=== PATIENT | female | born 1950 | race Caucasian/White ===

== ENCOUNTER 2020-07-12 11:51 | Emergency (ER) | payer MEDICARE, SELFPAY ==
[2020-07-12 11:53] VITALS: BP 144/70; PULSE 69; RESP 17; TEMP 36.7; O2SAT 98; BMI 30.7
--- NOTE | 2020-07-12 11:57 | ED.RN ---
PT'S SON DROPPED HER OFF STATING IF THEIR ARE ANY QUESTIONS HE CAN BE CONTACTED AT [phone], KOLBY GREGORY.
--- NOTE | 2020-07-12 12:11 | ED.VIS.GEN ---
History of Present Illness Chief Complaint: Fever Informant: Patient Narrative: Patient is a 69-year-old female with a past medical history of diabetes who presents to the ED for fever. Over the past week she has been treating herself symptomatically at home for URI/sinusitis she feels like her sinuses are improving but she developed a fever last night and it reoccurred today. She has been treating herself at home with Tylenol. Her was diagnosed with coronavirus and admitted to the hospital. He is doing well and will likely be discharged today. Patient denies a headache, stiff neck. No rashes. She denies any sore throat. No ear pain. She denies any chest pain, shortness of breath. No cough. No abdominal pain or nausea/vomiting. No change in bowel habits. No urinary symptoms. She denies a smoking history. Past Medical History - Allergies and Home Meds Allergies/Adverse Reactions: Allergies No Known Allergies Allergy (Verified 07/12/20 11:52) Primary Care Physician: Shila Cohen,Out of [Primary Care Provider] - 3-5 Days Prior records reviewed: Yes Past Medical History: - - DM Lives: Spouse/ Significant Other Smoking Status: Never smoker Alcohol: None Review of Systems All systems negative except as indicated General: Reports: Fever. Denies: Chills, Sweats Eyes: Denies: Visual changes - bilaterally, Diplopia ENT: Denies: Bilateral ear pain, Rhinorrhea, Sore throat Cardiovascular: Denies: Chest pain, Palpitations Respiratory: Denies: Dyspnea, Cough, Dyspnea on exertion Gastrointestinal: Reports: Hematochezia. Denies: Abdominal pain, Nausea, Vomiting, Diarrhea Genitourinary: Denies: Dysuria, Hematuria, Frequency Musculoskeletal: Denies: Back pain, Extremity Pain Skin: Denies: Rash, Wounds Neurological: Denies: Headache, Weakness, Numbness Physical Exam Vital Signs/Narrative: Vital Signs Temp Pulse Resp BP Pulse Ox 07/12/20 11:53 98.1 F 69 17 144/70 H 98 Inital Vital Signs reviewed: Yes General: Well nourished, Well developed, No Acute Distress Head: Normocephalic, Atraumatic Eyes: Perrl, EOMI ENT: Nasal congestion Neck: Supple, Nontender Cardiovascular: Regular rate, Regular rhythm, No murmurs Respiratory: No distress, CTA bilaterally, Chest nontender Abdomen: Soft, Nontender, Nondistended, Normal bowel sounds Back: Nontender, Normal Inspection Extremities: Nontender, No edema. Negative for: Calf Tenderness Skin: Normal color, No rash Neurological: Alert, Oriented x3, Cranial nerves II-XII grossly intact, Normal Strength, Normal Sensation Psychological: Normal affect, Normal Mood Diagnostic/Tx/Re-eval - Medical Decision Making Patient presents to the emerge department for URI symptoms and a fever. Upon arrival to the emerge department vital signs within normal limits. Satting well on room air. In no acute distress. She did have a known coronavirus exposure. At this time will obtain a coronavirus swab although we will treat her as positive. Will recommend symptomatic treatment at home with Tylenol for her fever. I did advise getting a pulse oximeter if she starts to develop any shortness of breath. She has no other symptoms of infection so no work-up required at this time. She is to follow-up with her PCP otherwise. Warning signs and symptoms for which to return to the ED are reviewed with her. She understands and is agreeable this plan. Will discharge home in stable condition. All questions answered. ED Disposition - Plan for ED Patient: Disposition: Home or Assisted Living Diagnosis: Fever, URI (upper respiratory infection), Close exposure to COVID-19 virus Instructions: ED Fever Control (Adult), ED URI Viral Referrals: [facility] Doctor,Out of [Primary Care Provider] - 3-5 Days
== END 2020-07-12 13:40 | disposition home or self-care (01) ==
LOC: ED 12:56
PROVIDERS: Emergency Provider Emergency Medicine; PCP Family Medicine
DX: U07.1 COVID-19 (principal); J06.9 Acute upper respiratory infection, unspecified; E11.9 Type 2 diabetes mellitus without complications; Z79.4 Long term (current) use of insulin
CPT/HCPCS: 87635; 99282; U0003

== ENCOUNTER 2020-07-16 14:32 | Inpatient (IN) | payer MEDICARE, SELFPAY ==
[2020-07-16] VITALS (9 sets, daily range): BP systolic 134–160; BP diastolic 71–95; PULSE 59–85; RESP 15–27; TEMP 37–37.4; O2SAT 95–97; BMI 30.1; BMI 30.9
--- NOTE | 2020-07-16 14:57 | EKG12_ITS ---
Test Reason : SOB Blood Pressure : / mmHG Vent. Rate : 066 BPM Atrial Rate : 070 BPM P-R Int : 000 ms QRS Dur : 066 ms QT Int : 394 ms P-R-T Axes : 000 -15 -71 degrees QTc Int : 413 ms Sinus Rhythm With PSVC's Minimal voltage criteria for LVH, may be normal variant Nonspecific ST and T wave abnormality Abnormal ECG Confirmed by KORINA KEY, JOVANNI ([id number]), metropolitan editor MUSA NICOLE ([id number]) on 07/17/2020 1:06:45 PM Referred By: KG Confirmed By:JOVANNI HUI MD
--- NOTE | 2020-07-16 14:58 | ED.DCSUM_ITS ---
History of Present Illness Chief Complaint: Shortness of Breath Informant: Patient Onset: 01-03 Activity at onset: Unknown Timing: Intermittent Quality: Dyspnea on exertion Current Severity: Mild Maximum Severity: Severe Worsened by: Coughing, Exertion Relieved by: Nothing Associated Symptoms: Chills, Cough, Fever. Negative for: Bloody Sputum, Rhinorrhea, Sore throat Chest Pain: None Narrative: 69-year-old female has had symptoms of Covid for the past 5 or 6 days, she was tested but the results are not yet available, her was admitted to the hospital and is doing better now discharged home, she is starting to feel worse. She admits to myalgias, fevers, chills, severe fatigue and weakness, nonproductive cough, shortness of breath especially with walking, now she cannot get around the house because she is too weak. Now also, she is having severe nausea, occasional vomiting, and loose diarrhea without blood. She is drinking and trying to stay hydrated with Gatorade. - Past Medical History (1) Type 2 diabetes mellitus Status: Chronic (2) Hypertension Status: Chronic (3) Hypothyroidism Status: Chronic Past Medical History - Allergies and Home Meds Allergies/Adverse Reactions: Allergies No Known Allergies Allergy (Verified 07/16/20 14:33) Primary Care Physician: Marion Roland DO [Primary Care Provider] - Lives: Spouse/ Significant Other Smoking Status: Never smoker Review of Systems General: Reports: Chills, Fever, Malaise, Subjective Eyes: Denies: Visual changes - bilaterally, Diplopia ENT: Denies: Bilateral ear pain, Rhinorrhea, Sore throat Cardiovascular: Denies: Chest pain, Palpitations Respiratory: Reports: Dyspnea, Cough, Dyspnea on exertion. Denies: Sputum, Orthopnea Gastrointestinal: Reports: Nausea, Vomiting, Diarrhea. Denies: Abdominal pain, Melena, Hematochezia Genitourinary: Denies: Dysuria, Hematuria, Frequency Musculoskeletal: Reports: Myalgias. Denies: Back pain, Swelling, Extremity Pain Skin: Denies: Rash, Wounds Neurological: Reports: Headache. Denies: Weakness, Numbness Physical Exam Vital Signs/Narrative: Vital Signs Temp Pulse Resp BP Pulse Ox 07/16/20 14:48 27 H 97 07/16/20 14:33 98.8 F 59 L 17 147/71 H 96 Inital Vital Signs reviewed: Yes General: Well nourished, Well developed, No Acute Distress - But appears very malaised Head: Normocephalic, Atraumatic Eyes: Perrl, EOMI ENT: Moist mucous membranes, No rhinorrhea Neck: Supple, Nontender, No lymphadenopathy Cardiovascular: Regular rate, Regular rhythm, No murmurs. Negative for: Tachycardia Respiratory: No distress, Chest nontender, Rhonchi - Bilaterally, worse at bases. Negative for: Rales, Wheezing Abdomen: Soft, Nondistended, Normal bowel sounds, Tender - Mild suprapubic only. Negative for: Guarding, Rebound tenderness Back: Nontender, Normal Inspection. Negative for: CVA tenderness Extremities: Nontender, No edema. Negative for: Calf Tenderness Skin: Normal color, No rash, No Trauma Neurological: Alert, Oriented x3, Cranial nerves II-XII grossly intact, Normal Strength, Normal Sensation Psychological: Normal affect, Normal Mood Diagnostic/Tx/Re-eval Impressions Chest X-Ray 07/16/20 15:50 IMPRESSION: No acute findings. Electronically Signed: Brittni Smith MD at 16:22 EST Tel , Service support , 07/16/20 15:50 Chest 1 View (Portable) [RAD] Stat Laboratory Results 07/16/20 07/16/20 07/16/20 15:10 15:10 15:10 WBC 3.2 L RBC 4.74 Hgb 14.3 Hct 43.1 MCV 90.9 MCH 30.2 MCHC 33.2 RDW Std Deviation 44.3 H RDW Coeff of Pedro 13.1 Plt Count 137 L MPV 10.8 Immature Gran % (Auto) 0.600 Neut % (Auto) 69.3 Lymph % (Auto) 22.6 [place] % (Auto) 7.2 Eos % (Auto) 0.0 Baso % (Auto) 0.3 Absolute Neuts (auto) 2.2 Absolute Lymphs (auto) 0.72 L Nucleated RBC % 0 PT 13.1 INR 1.0 APTT 31.3 Sodium 137 Potassium 4.1 Chloride 100 Carbon Dioxide 31.0 Anion Gap 6 BUN 7 Creatinine 0.91 Estim Creat Clear Calc 51.02 Est GFR (MDRD) Af Amer 78 Est GFR (MDRD) Non-Af 65 BUN/Creatinine Ratio 7.7 L Glucose 149 H Lactic Acid Calcium 8.0 L Total Bilirubin 0.50 AST 44 H ALT 19 Alkaline Phosphatase 61 Troponin I 0.016 Total Protein 6.6 Albumin 2.7 L Globulin 3.9 Albumin/Globulin Ratio 0.7 L 07/16/20 15:10 WBC RBC Hgb Hct MCV MCH MCHC RDW Std Deviation RDW Coeff of Pedro Plt Count MPV Immature Gran % (Auto) Neut % (Auto) Lymph % (Auto) [place] % (Auto) Eos % (Auto) Baso % (Auto) Absolute Neuts (auto) Absolute Lymphs (auto) Nucleated RBC % PT INR APTT Sodium Potassium Chloride Carbon Dioxide Anion Gap BUN Creatinine Estim Creat Clear Calc Est GFR (MDRD) Af Amer Est GFR (MDRD) Non-Af BUN/Creatinine Ratio Glucose Lactic Acid Cancelled Calcium Total Bilirubin AST ALT Alkaline Phosphatase Troponin I Total Protein Albumin Globulin Albumin/Globulin Ratio Treatment - Dyspnea: Albuterol Repeat Evaluation: Improved - Medical Decision Making Patient is having trouble getting around at home, I do not think she necessarily needs oxygen she just needs care. Will admit to the hospital for further work- up and evaluation. I did have staff call to see if her outpatient Covid test is back yet, it is not and still pending, however this is day 4 or 5 so I suspect it will be back tomorrow if not later today, so I did not send a new test as I figure she likely does have it. ED Disposition - Plan for ED Patient: Disposition: Acute Care Hospital [facility] Diagnosis: Debility, COVID-19 Referrals: Marion Roland DO [Primary Care Provider] -
--- NOTE | 2020-07-16 15:03 | NURSING ---
NO OLD EKGS
[2020-07-16 15:25] LABS: Absolute Lymphocyte Count 0.72 X10^3/uL (0.83-4.51); Absolute Neutrophil Count 2.2 X10^3/uL (2.0-7.7); Basophil# 0.01 X10^3/uL; Basophil% 0.3 % (0-1); Hematocrit 43.1 % (37-47); Hemoglobin 14.3 g/dL (12.0-15.0); Lymphocyte # 0.72 X10^3/ul (4.0); Lymphocyte % 22.6 % (19-41); Mean Corp Hgb Conc 33.2 g/dL (32-36); Mean Corpuscular Hgb 30.2 pg (27.0-32.0); Mean Corpuscular Volume 90.9 fL (81-99); Mean Platelet Vol. 10.8 fl (6.2-12.0); Monocyte# 0.23 X10^3/uL; Monocyte% 7.2 % (0-10); NRBC Flagged by Analyzer 0 % (0-5); Neutrophil # 2.21 X10^3/uL (2.7-7.7); Neutrophil % 69.3 % (47-70); Platelet Count 137 K/mm3 (150-450); RBC Distribution Width CV 13.1 % (11.6-14.6); RBC Distribution Width SD 44.3 fl (35.1-43.9); Red Blood Count 4.74 M/mm3 (4.2-5.4); White Blood Count 3.2 K/mm3 (4.4-11.0)
--- NOTE | 2020-07-16 15:25 | CPS ---
Gave 3 puffs as ordered.
[2020-07-16] MEDS: 0.9% Normal Saline 1,000 ML 150 ML IV ×2 (15:33→21:39)
[2020-07-16 15:48] LABS: Partial Thromboplast Time 31.3 Seconds (24.1-36.2); Prothrombin Time (Protime)PT. 13.1 SECONDS (11.7-14.9)
--- NOTE | 2020-07-16 15:50 | RAD_ITS ---
STUDY: X-RAY CHEST REASON FOR EXAM: Female, 69 years old. INCREASED SOB, COUGH, FATIGUE, WEAKNESS. HAS COVID. TECHNIQUE: Single AP portable view of the chest. COMPARISON: None. FINDINGS: The lungs are clear and expanded. There is no demonstrated pleural abnormality. Normal size heart. Normal mediastinum and hao. Normal visualized pulmonary arteries. Normal visualized aortic arch and descending thoracic aorta. Mild thoracic levoscoliosis. Soft tissues and bony structures are otherwise unremarkable. RAD/Chest 1 View (Portable) IMPRESSION: No acute findings. Electronically Signed: Brittni Smith MD at 16:22 EST Tel , Service support ,
[2020-07-16 15:54] LABS: ALB/GLOB Ratio 0.7 RATIO (0.9-2.4); AST(SGOT) 44 U/L (15-37); Alanine Aminotransfer ALT/SGPT 19 U/L (13-56); Albumin, Serum 2.7 g/dL (3.2-5.0); Alkaline Phosphatase 61 U/L (45-117); Anion Gap 6 (5-15); BUN 7 mg/dL (7-18); BUN/Creat Ratio 7.7 RATIO (10-20); Chloride 100 mmol/L (98-107); Creatinine, Serum 0.91 mg/dL (0.55-1.02); EST Glomerular Filtration Rate 65 mL/min (>60); Est Glom Filt Rate - Afr Amer 78 mL/min (>60); Estimated Creatinine Clearance 51.02 ml/min; Globulin 3.9 g/dL (2.2-4.2); Glucose 149 mg/dL (74-106); Potassium 4.1 mmol/L (3.5-5.1); Protein, Total 6.6 g/dL (6.4-8.2); Sodium Level 137 mmol/L (136-145)
--- NOTE | 2020-07-16 16:23 | NURSING ---
LACTIC ACID HEMOLIZED
--- NOTE | 2020-07-16 17:05 | HP.PCM_ITS ---
History of Present Illness Date of Admission: 07/16/20 Chief Complaint: weakness, shortness of breath The patient is a 69 year old F with past medical history of type 2 diabetes mellitus, hypertension and hypothyroidism. She was admitted through the ED on 07/16/2020 with a complaint of shortness of breath, general weakness, cough, fever and chills. She has had the symptoms for the past 6 days. She had been a Covid test on outpatient basis on 07/12/2020 but results were not yet available. had been admitted in the hospital for Covid and was recently discharged. Patient says she just felt like she was getting worse and her shortness of breath was worsened with walking. She could not get around the house very well because she was too weak and was now also having occasional nausea, vomiting and diarrhea. She therefore came into the ED. The ED, vitals show temperature of 98.6 Fahrenheit with blood pressure of 147/71, pulse rate of 59 and respiratory rate of 19. Pulse ox was 95% on room air. Chemistry was unremarkable initial troponin was negative. Chest x-ray showed no acute cardio pulmonary findings. CBC showed WBC of 3.2 with platelets of 137 and hemoglobin of 14.3. EKG showed no acute ST changes. She has been admitted to be managed for debility due to Covid [] Past Medical History Past Medical History (Chronic Problems): Chronic Problems Type 2 diabetes mellitus (Chronic) Hypertension (Chronic) Hypothyroidism (Chronic) Allergies No Known Allergies Allergy (Verified 07/16/20 14:33) Home Medications: Ambulatory Orders Medication Instructions Recorded ALPRAZolam [Xanax] 0.5 mg PO TID PRN PRN 07/16/20 Clopidogrel Bisulfate [Plavix] 75 mg PO DAILY 07/16/20 Dulaglutide [Trulicity] 0.75 mg SQ QWEEK 07/16/20 Ergocalciferol (Vitamin D2) 50,000 unit PO QWEEK 07/16/20 [Vitamin D2] Furosemide [Lasix] 40 mg PO DAILY 07/16/20 Gabapentin [Neurontin] 600 mg PO BIDCM 07/16/20 Glimepiride 4 mg PO DAILY 07/16/20 Hydrocodone/Acetaminophen [[place] 1 ea PO BID PRN PRN 07/16/20 5-325 Tablet] Insulin Detemir [Levemir] 44 unit SQ DAILY 07/16/20 Levothyroxine Sodium [Synthroid] 50 mcg PO DAILY 07/16/20 Ondansetron HCl [Zofran] 4 mg PO Q6H PRN PRN 07/16/20 Ramipril 2.5 mg PO DAILY 07/16/20 Lives: Spouse/ Significant Other Smoking Status: Never smoker Review of Systems Constitutional: Reports: Anorexia, Chills, Fever, Malaise, Weakness, Fatigue Eyes: Denies: Blurred vision HEENT: Denies: Head Aches, Sinus Congestion, Sinus Drainage Cardiovascular: Denies: Chest Pain, Chest Pressure, Chest Tightness, Edema, Heaviness, Light Headedness, Palpitations, Syncope Respiratory: Reports: Cough, Shortness of Breath, Shortness of breath at rest, Shortness of breath upon exertion. Denies: Sputum production, Wheezing Gastrointestinal: Denies: Abdominal Pain, Nausea, Vomiting Genitourinary: Denies: Dysuria Musculoskeletal: Denies: Joint Pain, Joint Tenderness Skin: Denies: Rash, Wounds Neurological: Denies: Numbness, Tingling, Focal weakness Psychiatric: Denies: Anxiety, Depression, Homicidal Ideations, Suicidal Ideations Hematologic/ Lymphatic: Denies: Easy Bruising, Easy Bleeding VTE Information - Inpt Only VTE Present on Admission: No VTE Pharm Prophylaxis ordered?: Yes Patient Problems: Active and Suspected Problems Debility (Acute) COVID-19 (Acute) - Physical Exam Vitals/I&O's: Vital Signs Temp Pulse Resp BP Pulse Ox 98.6 F 59 L 19 H 147/71 H 95 07/16/20 15:36 07/16/20 14:33 07/16/20 15:36 07/16/20 14:33 07/16/20 15:36 Oxygen Delivery Method Room Air Weight: 181 lb Body Mass Index (BMI) 30.1 General: Alert, Oriented x3, Cooperative, Lethargic HEENT: Atraumatic, PERRLA, EOMI, Normocephalic Oral: Dry Mucosa Neck: Supple, No JVD, Negative Carotid Bruits Lungs: Clear to auscultation, Normal air movement, No rhonchi, No wheeze, No rales Cardiovascular: Regular rate, Regular Rhythm, Normal S1, Normal S2, No murmurs Abdomen: Bowel Sounds Present, Soft, Non Tender, Non-Distended, No Hepato- splenomegaly Extremities: No clubbing, No cyanosis, No edema, Capillary Refill Less than 3 Seconds Skin: No rashes, No breakdown Musculoskeletal: No Tenderness to Palpation of Joints or Extremities Lymphatic: No Cervical, Supraclavicular, or Inguinal Adenopathy Neurological: Cranial nerves II-XII grossly intact, Neuro grossly intact, Motor Exam 5/5 strength throughout Psych/Mental Status: Normal Affect, Appropriate, Alert and oriented to time, place, person, mood and affect Laboratory Results 07/16/20 15:10: WBC 3.2 L, RBC 4.74, Hgb 14.3, Hct 43.1, MCV 90.9, MCH 30.2, MCHC 33.2, RDW Std Deviation 44.3 H, RDW Coeff of Pedro 13.1, Plt Count 137 L, MPV 10.8, Immature Gran % (Auto) 0.600, Neut % (Auto) 69.3, Lymph % (Auto) 22.6, [place] % (Auto) 7.2, Eos % (Auto) 0.0, Baso % (Auto) 0.3, Absolute Neuts (auto) 2.2, Absolute Lymphs (auto) 0.72 L, Nucleated RBC % 0 07/16/20 15:10: PT 13.1, INR 1.0, APTT 31.3 07/16/20 15:10: Sodium 137, Potassium 4.1, Chloride 100, Carbon Dioxide 31.0, Anion Gap 6, BUN 7, Creatinine 0.91, Estim Creat Clear Calc 51.02, Est GFR (MDRD) Af Amer 78, Est GFR (MDRD) Non-Af 65, BUN/Creatinine Ratio 7.7 L, Glucose 149 H, Calcium 8.0 L, Total Bilirubin 0.50, AST 44 H, ALT 19, Alkaline Phosphatase 61, Troponin I 0.016, Total Protein 6.6, Albumin 2.7 L, Globulin 3.9, Albumin/Globulin Ratio 0.7 L 07/16/20 15:10: Lactic Acid Cancelled Diagnostic Data Chest X-Ray 07/16/20 15:50 IMPRESSION: No acute findings. Electronically Signed: Brittni Smith MD at 16:22 EST Tel , Service support , Current Medications Sodium Chloride () 1,000 mls @ 150 mls/hr IV .[id number] [facility] Last Admin: 07/16/20 15:33 Dose: 150 mls/hr Documented by: Assessment/Plan All Active Problems Debility (Acute) COVID-19 (Acute) 69 y/o admitted with a complaint of shortness of breath and weakness #Debility due to COVID-19 infection * admit to Covid floor. * hydrate gently with IVF * tylenol prn for pain * PT/OT consult * fall precautions * # COVID 19 infection * Patient has not had Covid. Patient has been tested but results are still pending. Test was done on 07/12/2020. * Clinically patient appears of Covid so will be treated as such. * Currently on room air. Give oxygen as needed as needed. * Check D-dimer; if elevated, will get CTA of chest * Breathing treatments with bronchodilators. * Stage type 2 diabetes mellitus: On Trulicity and glimepiride.: Lantus 44 units daily. Insulin sliding scale. Accu-Cheks AC at bedtime. #Hypertension: On ramipril. #CAD: On Plavix. DVT prophylaxis: Lovenox CODE STATUS: Full code * Patient counseled extensively about different types of CODE STATUS including full code, DNR CCA and DNR CCA. Patient elects to be full code. * Total [id number] time 17 minutes. Inpatient E&M: 67322 Init Hosp L3 Procedures: 94557 Advncd Care Plan 30 Min
--- NOTE | 2020-07-16 17:08 | NURSING ---
MS2 COVID KORAM COVID 19, DEBILITY, GENERALIZED WEAKNESS
[2020-07-16] MEDS: Ondansetron 4 MG/2 ML Vial IV (17:12)
[2020-07-16] MEDS: Acetaminophen 500 MG Tablet 1000 MG PO (17:12)
[2020-07-16 17:52] LABS: Lactic Acid 5.2 mmol/L (0.4-1.9)
[2020-07-16 21:26] LABS: Reflex Lactate? Y
[2020-07-16 21:29] LABS: ALB/GLOB Ratio 0.7 RATIO (0.9-2.4); AST(SGOT) 28 U/L (15-37); Alanine Aminotransfer ALT/SGPT 18 U/L (13-56); Albumin, Serum 2.7 g/dL (3.2-5.0); Alkaline Phosphatase 63 U/L (45-117); Anion Gap 8 (5-15); BUN 7 mg/dL (7-18); BUN/Creat Ratio 7.6 RATIO (10-20); CPK Total, Creatine Kinase 57 U/L (26-192); Chloride 104 mmol/L (98-107); Creatinine, Serum 0.92 mg/dL (0.55-1.02); EST Glomerular Filtration Rate 64 mL/min (>60); Est Glom Filt Rate - Afr Amer 77 mL/min (>60); Estimated Creatinine Clearance 50.47 ml/min; Globulin 3.7 g/dL (2.2-4.2); Glucose 120 mg/dL (74-106); Potassium 3.3 mmol/L (3.5-5.1); Protein, Total 6.4 g/dL (6.4-8.2); Sodium Level 143 mmol/L (136-145)
[2020-07-16 21:31] LABS: Procalcitonin 0.07 ng/mL (0.00-0.09)
[2020-07-16] MEDS: ALPRAZolam 0.5 MG Tablet PO (21:39)
[2020-07-16] MEDS: HYDROcodone Bitartrate/Apap 5/325 Tablet PO (21:39)
[2020-07-16] MEDS: Gabapentin 600 MG Tablet PO (21:39)
[2020-07-16 21:45] LABS: International Normalized Ratio 1.1; Prothrombin Time (Protime)PT. 13.7 SECONDS (11.7-14.9)
[2020-07-16 21:51] LABS: Bedside Glucose 138 mg/dL (70-110)
[2020-07-16 22:00] LABS: D-Dimer Quantitative (DVT/PE) 0.62 FEU/ug/m (0.27-0.49)
[2020-07-16 22:30] LABS: Lactic Acid 2.2 mmol/L (0.4-1.9)
[2020-07-17] VITALS (12 sets, daily range): BP systolic 156–181; BP diastolic 72–87; PULSE 67–81; RESP 15–18; TEMP 36.9–38.1; O2SAT 93–97
[2020-07-17 01:55] LABS: Mucous, Urine 0 SEEN /hpf (<or=2+); Squamous Epithelial Cells - UA 0 SEEN /hpf (5-10); White Blood Cells 0 SEEN /hpf (0-5)
[2020-07-17 01:57] LABS: Color, Urine Yellow (Yellow); Glucose, Dipstick Normal (Normal); Ketone-Dipstick 15 mg/dl (Negative); Leukocyte Esterase-Dipstick Negative /ul (Negative); Nitrite-Dipstick Negative (Negative); Occult Blood-Urine Negative /ul (Negative); Protein-Dipstick 30 mg/dl (Negative); Specific Gravity, Urine 1.015 (1.002-1.030); Urine Bilirubin Dipstick Negative (Negative); Urine Clarity Clear (Clear); Urine Urobilinogen 1 mg/dl (Normal)
[2020-07-17 02:09] LABS: Bacteria 4+ /hpf (None Seen); Red Blood Cells-Urine 0-5 SEEN /hpf (0-5)
[2020-07-17 02:10] LABS: Amorphous Sediment RARE
[2020-07-17] MEDS: 0.9% Normal Saline 1,000 ML 150 ML IV (04:25)
[2020-07-17] MEDS: Insulin Lispro 100 UNIT/ML INSULN.PEN SC ×4 (06:54→21:43)
[2020-07-17 07:00] LABS: Bedside Glucose 166 mg/dL (70-110)
--- NOTE | 2020-07-17 07:32 | PN_ITS ---
Patient Problems: Active and Suspected Problems Debility (Acute) COVID-19 (Acute) Reason for Visit: Follow-up for COVID-19 pneumonia Objective: Patient states her had Covid and she was exposed probably a week ago on past Thursday on July 09, 2020. She started having symptoms of shortness of br eath, generalized weak mild cough with fever and chills for past 6 days she is also having occasional nausea vomiting and loose stool. Initially chest respiratory acute cardiopulmonary finding D-dimer was elevated CTPA was done which shows bilateral lower lobes and upper lobes patchy infiltrates. Low-grade fever 100.4 Fahrenheit Physical exam General: Alert, Oriented x3, Cooperative HEENT: Atraumatic, PERRLA, EOMI, Normocephalic Oral: No Gingival or Mucosal Lesions/ Ulcerations Neck: Supple, No JVD, Negative Carotid Bruits Lungs: Air entry diminished in bilateral lung bases. Mild bilateral expiratory wheezing present. Pulse ox 94% on room air Cardiovascular: Regular rate, Regular Rhythm, Normal S1, Normal S2, No murmurs Abdomen: Bowel Sounds Present, Soft, Non Tender, Non-Distended : No renal angle tenderness. No suprapubic tenderness. Extremities: No edema, Capillary Refill Less than 3 Seconds Skin: No rashes, No breakdown Musculoskeletal: No Tenderness to Palpation of Joints or Extremities Neurological: Cranial nerves II-XII grossly intact, Deep Tendon Reflexes 2+/4 and Symmetrical, Neuro grossly intact Psych/Mental Status: Normal Affect, Appropriate. Vitals/I&O's: Vital Signs Temp Pulse Resp BP Pulse Ox 98.7 F 67 16 169/78 H 97 07/17/20 04:27 07/17/20 04:27 07/17/20 04:27 07/17/20 04:27 07/17/20 04:27 Oxygen Delivery Method Room Air Weight: 186 lb 4.65 oz Body Mass Index (BMI) 30.9 Intake and Output for Last 24 Hours 07/15/20 07/16/20 07/17/20 23:59 23:59 23:59 Intake Total 915 / 1115 1200 / 1200 Output Total 300 / 300 Balance 915 / 915 900 / 900 Laboratory Results 07/16/20 15:10: WBC 3.2 L, RBC 4.74, Hgb 14.3, Hct 43.1, MCV 90.9, MCH 30.2, MCHC 33.2, RDW Std Deviation 44.3 H, RDW Coeff of Pedro 13.1, Plt Count 137 L, MPV 10.8, Immature Gran % (Auto) 0.600, Neut % (Auto) 69.3, Lymph % (Auto) 22.6, [place] % (Auto) 7.2, Eos % (Auto) 0.0, Baso % (Auto) 0.3, Absolute Neuts (auto) 2.2, Absolute Lymphs (auto) 0.72 L, Nucleated RBC % 0 07/16/20 15:10: PT 13.1, INR 1.0, APTT 31.3 07/16/20 15:10: Sodium 137, Potassium 4.1, Chloride 100, Carbon Dioxide 31.0, Anion Gap 6, BUN 7, Creatinine 0.91, Estim Creat Clear Calc 51.02, Est GFR (MDRD) Af Amer 78, Est GFR (MDRD) Non-Af 65, BUN/Creatinine Ratio 7.7 L, Glucose 149 H, Calcium 8.0 L, Total Bilirubin 0.50, AST 44 H, ALT 19, Alkaline Phosphatase 61, Troponin I 0.016, Total Protein 6.6, Albumin 2.7 L, Globulin 3.9, Albumin/Globulin Ratio 0.7 L 07/16/20 15:10: Lactic Acid Cancelled 07/16/20 16:58: Lactic Acid 5.2 H* 07/16/20 20:45: PT 13.7, INR 1.1, D-Dimer Quant (PE/DVT) 0.62 H* 07/16/20 20:45: Sodium 143, Potassium 3.3 L, Chloride 104, Carbon Dioxide 31.0, Anion Gap 8, BUN 7, Creatinine 0.92, Estim Creat Clear Calc 50.47, Est GFR (MDRD) Af Amer 77, Est GFR (MDRD) Non-Af 64, BUN/Creatinine Ratio 7.6 L, Glucose 120 H, Calcium 8.0 L, Total Bilirubin 0.60, AST 28, ALT 18, Alkaline Phosphatase 63, Total Creatine Kinase 57, Troponin I 0.020, C-React Prot Ext Range 25.50 H, Total Protein 6.4, Albumin 2.7 L, Globulin 3.7, Albumin/Globulin Ratio 0.7 L 07/16/20 20:45: Procalcitonin 0.07 07/16/20 21:38: POC Glucose 138 H 07/16/20 21:50: Lactic Acid 2.2 H* 07/17/20 01:40: Urine Color Yellow, Urine Clarity Clear, Urine pH 8.0, Ur Specific [place] 1.015, Urine Protein 30 H, Urine Glucose (UA) Normal, Urine Ketones 15 H, Urine Occult Blood Negative, Urine Nitrite Negative, Urine Bilirubin Negative, Urine Urobilinogen 1 H, Ur Leukocyte Esterase Negative, Urine RBC 0-5 SEEN, Urine WBC 0 SEEN, Ur Squamous Epith Cells 0 SEEN, Amorphous Sediment RARE, Urine Bacteria 4+, Urine Mucus 0 SEEN 07/17/20 06:50: WBC Cancelled, Corrected WBC Cancelled, RBC Cancelled, Hgb Cancelled, Hct Cancelled, MCV Cancelled, MCH Cancelled, MCHC Cancelled, RDW Std Deviation Cancelled, RDW Coeff of Pedro Cancelled, Plt Count Cancelled, MPV Cancelled, Immature Gran % (Auto) Cancelled, Neut % (Auto) Cancelled, Lymph % (Auto) Cancelled, [place] % (Auto) Cancelled, Eos % (Auto) Cancelled, Baso % (Auto) Cancelled, Absolute Neuts (auto) Cancelled, Absolute Lymphs (auto) Cancelled, Total Counted Cancelled, Neutrophils % (Manual) Cancelled, Band Neutrophils % Cancelled, Lymphocytes % (Manual) Cancelled, Monocytes % (Manual) Cancelled, Eosinophils % (Manual) Cancelled, Basophils % (Manual) Cancelled, Metamyelocytes % Cancelled, Myelocytes % Cancelled, Promyelocytes % Cancelled, Blast Cells % Cancelled, Plasma Cell % (Manual) Cancelled, Other Cells % Cancelled, Nucleated RBC % Cancelled, Nucleated RBCs/100 WBC Cancelled, Differential Comment Cancelled, Diff Path Review Cancelled, Hypersegmented Neuts Cancelled, Atypical Lymphocytes Cancelled, Reactive Lymphocytes Cancelled, Smudge Cells Cancelled, Toxic Granulation Cancelled, Toxic Vacuolation Cancelled, Dohle Bodies Cancelled, Reynaldo Rods Cancelled, Platelet Estimate Cancelled, Plt Morphology Comment Cancelled, RBC Morphology Cancelled, Polychromasia Cancelled, Hypochroma joe Cancelled, Poikilocytosis Cancelled, Basophilic Stippling Cancelled, Anisocytosis Cancelled, Microcytosis Cancelled, Macrocytosis Cancelled, Spherocytes Cancelled, Sickle Cells Cancelled, Target Cells Cancelled, Tear Drop Cells Cancelled, Ovalocytes Cancelled, Stomatocytes Cancelled, [place] Bodies Cancelled, Wheeler Cells Cancelled, Bite Cells Cancelled, Crenated Cell Cancelled, Acanthocytes (Spur) Cancelled, Rouleaux Cancelled, Schistocytes Cancelled 07/17/20 06:50: Sodium Pending, Potassium Pending, Chloride Pending, Carbon Dioxide Pending, Anion Gap Pending, BUN Pending, Creatinine Pending, Est GFR (MDRD) Af Amer Pending, Est GFR (MDRD) Non-Af Pending, BUN/Creatinine Ratio Pending, Glucose Pending, Calcium Pending, Magnesium Pending, Ferritin Pending, Alkaline Phosphatase Pending, C-React Prot Ext Range Pending 07/17/20 06:50: D-Dimer Quant (PE/DVT) Pending 07/17/20 06:50: Procalcitonin Pending 07/17/20 06:52: POC Glucose 166 H Current Medications Hydrocodone Bitart/Acetaminophen (Hydrocodone Bitartrate/Apap 5/325 Tablet) 1 tablet PO BID PRN PRN PRN Reason: Pain Score 1-3 Last Admin: 07/16/20 21:39 Dose: 1 tablet Documented by: Alprazolam (Alprazolam 0.5 Mg Tablet) 0.5 mg PO TID PRN PRN PRN Reason: ANXIETY Last Admin: 07/16/20 21:39 Dose: 0.5 mg Documented by: Clopidogrel Bisulfate (Clopidogrel Bisulfate 75 Mg Tablet) 75 mg PO DAILY@0800 [facility] Dexamethasone (Dexamethasone 4 Mg Tablet) 6 mg PO DAILY@0800 [facility] Dextrose (Dextrose 50%-Water 25 Gm/50 Ml Disp.Syrin) 0 gm IV X1 PRN; Protocol PRN Reason: Hypoglycemia Enoxaparin Sodium (Enoxaparin 30 Mg/0.3 Ml Syringe) 30 mg SC DAILY@0800 [facility] Ergocalciferol (Ergocalciferol 50,000 Unit Capsule) 50,000 unit PO Fr@0800 [facility] Furosemide (Furosemide 40 Mg Tablet) 40 mg PO DAILY@0800 [facility] Gabapentin (Gabapentin 600 Mg Tablet) 600 mg PO BIDCM [facility] Last Admin: 07/16/20 21:39 Dose: 600 mg Documented by: Glimepiride (Glimepiride 4 Mg Tablet) 4 mg PO DAILY@0800 [facility] Glucagon (Glucagon 1 Mg/Ml Syringe) 1 mg IM .X1 PRN PRN Reason: Hypoglycemia Sodium Chloride () 1,000 mls @ 150 mls/hr IV .Q6H40M [facility] Last Admin: 07/17/20 04:25 Dose: 150 mls/hr Documented by: Insulin Glargine (Insulin Glargine 100 Units/Ml Pen) 44 units SC DAILY@0800 [facility] Insulin Human Lispro (Insulin Lispro 100 Unit/Ml Insuln.Pen) 0 unit SC ACHS [facility]; Protocol Last Admin: 07/17/20 06:54 Dose: 1 u Documented by: Levothyroxine Sodium (Levothyroxine 50 Mcg Tablet) 50 mcg PO DAILY@0800 [facility] Ondansetron HCl (Ondansetron Odt 4 Mg Tablet) 4 mg PO Q6H PRN PRN PRN Reason: NAUSEA Ondansetron HCl (Ondansetron 4 Mg/2 Ml Vial) 4 mg IV Q8H PRN PRN PRN Reason: NAUSEA/VOMITING Oxycodone HCl (Oxycodone 5 Mg Tablet) 5 mg PO Q4H PRN PRN PRN Reason: Pain Score 4-5 Ramipril (Ramipril 2.5 Mg Capsule) 2.5 mg PO DAILY@0800 [facility] Sodium Chloride (0.9% Saline Lock 10 Ml Syringe) 10 - 40 ml IV UD PRN PRN Reason: SALINE FLUSH STROKE Vital Signs/Narrative: Vital Signs Temp Pulse Resp BP Pulse Ox 07/17/20 04:27 98.7 F 67 16 169/78 H 97 Medical Necessity - Tobacco Use Smoking Status: Never smoker Tobacco Use: Non-smoker, Secondhand Assessment/Plan All Active Problems Debility (Acute) COVID-19 (Acute) The patient is a 69 year old F with past medical history of type 2 diabetes mellitus, hypertension and hypothyroidism who is admitted for shortness of breath, cough, fever and chills and generalized weakness for the past 6 days and COVID-19 PCR positive PCP. Chest x-ray no acute cardiopulmonary findings. CBC leukopenia and mild thrombocytopenia. Patient was exposed to her about 7 days ago who was COVID-19 pneumonia and was admitted in the hospital recently. 1. Bilateral COVID-19 pneumonia: CTA chest was done for high D-dimer and high priority of PE but was negative for thromboembolism. It showed patchy pulmonary infiltrate in both lower lobes and upper lobes. Patient does not have significant is different production or cough. Started on IV Rocephin and Zithromax. Urinary antigens and respiratory panel ordered. ID consult and discussed with Dr. Toscano and approved for IV remdesivir. Continue Decadron. Lovenox 40 mg subcu twice daily. IV fluid 75 mils per hour as patient had CT contrast. Physical therapy. Bronchodilator as needed. Monitor CBCs and CMP daily. PT and OT and fall precaution. 2. Type 2 diabetes mellitus: On Trulicity and glimepiride.: Lantus 40 units daily. Insulin sliding scale. Accu-Cheks AC at bedtime. #Hypertension: Blood pressure is elevated. Amlodipine 5 mg added and ramipril dose increased to 5 mg daily. #CAD: On Plavix. VTE prophylaxis: Lovenox CODE STATUS: Full code Clinical Impression(s) from Imaging Studies Chest X-Ray 07/16/20 15:50 IMPRESSION: No acute findings. Electronically Signed: Brittni Smith MD at 16:22 EST Tel , Service support , Chest CTA 07/17/20 08:57 IMPRESSION: Patchy pulmonary infiltrates seen in both lower lobes as well as in the posterior aspect of the upper lobes. Follow-up is recommended. Laboratory Results 07/16/20 15:10: WBC 3.2 L, RBC 4.74, Hgb 14.3, Hct 43.1, MCV 90.9, MCH 30.2, MCHC 33.2, RDW Std Deviation 44.3 H, RDW Coeff of Pedro 13.1, Plt Count 137 L, MPV 10.8, Immature Gran % (Auto) 0.600, Neut % (Auto) 69.3, Lymph % (Auto) 22.6, [place] % (Auto) 7.2, Eos % (Auto) 0.0, Baso % (Auto) 0.3, Absolute Neuts (auto) 2.2, Absolute Lymphs (auto) 0.72 L, Nucleated RBC % 0 07/16/20 15:10: PT 13.1, INR 1.0, APTT 31.3 07/16/20 15:10: Sodium 137, Potassium 4.1, Chloride 100, Carbon Dioxide 31.0, Anion Gap 6, BUN 7, Creatinine 0.91, Estim Creat Clear Calc 51.02, Est GFR (MDRD) Af Amer 78, Est GFR (MDRD) Non-Af 65, BUN/Creatinine Ratio 7.7 L, Glucose 149 H, Calcium 8.0 L, Total Bilirubin 0.50, AST 44 H, ALT 19, Alkaline Phosphatase 61, Troponin I 0.016, Total Protein 6.6, Albumin 2.7 L, Globulin 3.9, Albumin/Globulin Ratio 0.7 L 07/16/20 15:10: Lactic Acid Cancelled 07/16/20 16:58: Lactic Acid 5.2 H* 07/16/20 20:45: PT 13.7, INR 1.1, D-Dimer Quant (PE/DVT) 0.62 H* 07/16/20 20:45: Sodium 143, Potassium 3.3 L, Chloride 104, Carbon Dioxide 31.0, Anion Gap 8, BUN 7, Creatinine 0.92, Estim Creat Clear Calc 50.47, Est GFR (MDRD) Af Amer 77, Est GFR (MDRD) Non-Af 64, BUN/Creatinine Ratio 7.6 L, Glucose 120 H, Calcium 8.0 L, Total Bilirubin 0.60, AST 28, ALT 18, Alkaline Phosphatase 63, Total Creatine Kinase 57, Troponin I 0.020, C-React Prot Ext Range 25.50 H, Total Protein 6.4, Albumin 2.7 L, Globulin 3.7, Albumin/Globulin Ratio 0.7 L 07/16/20 20:45: Procalcitonin 0.07 07/16/20 21:38: POC Glucose 138 H 07/16/20 21:50: Lactic Acid 2.2 H* 07/17/20 01:40: Urine Color Yellow, Urine Clarity Clear, Urine pH 8.0, Ur Specific [place] 1.015, Urine Protein 30 H, Urine Glucose (UA) Normal, Urine Ketones 15 H, Urine Occult Blood Negative, Urine Nitrite Negative, Urine Bilirubin Negative, Urine Urobilinogen 1 H, Ur Leukocyte Esterase Negative, Urine RBC 0-5 SEEN, Urine WBC 0 SEEN, Ur Squamous Epith Cells 0 SEEN, Amorphous Sediment RARE, Urine Bacteria 4+, Urine Mucus 0 SEEN 07/17/20 06:50: Sodium Pending, Potassium Pending, Chloride Pending, Carbon Dioxide Pending, Anion Gap Pending, BUN Pending, Creatinine Pending, Est GFR (MDRD) Af Amer Pending, Est GFR (MDRD) Non-Af Pending, BUN/Creatinine Ratio Pending, Glucose Pending, Calcium Pending, Magnesium Pending, Ferritin Pending, Alkaline Phosphatase Pending, C-React Prot Ext Range Pending 07/17/20 06:50: D-Dimer Quant (PE/DVT) Pending 07/17/20 06:50: Procalcitonin Pending 07/17/20 06:52: POC Glucose 166 H 07/17/20 07:46: WBC Pending, RBC Pending, Hgb Pending, Hct Pending, MCV Pending, MCH Pending, MCHC Pending, RDW Std Deviation Pending, RDW Coeff of Pedro Pending, Plt Count Pending, Neut % (Auto) Pending, Absolute Neuts (auto) Pending Inpatient E&M: [id number] Subs Hosp L2
[2020-07-17 07:55] LABS: Absolute Neutrophil Count 3.2 X10^3/uL (2.0-7.7); Basophil# 0.02 X10^3/uL; Basophil% 0.5 % (0-1); Eosinophil# 0.02 X10^3/uL; Eosinophils% 0.5 % (0-5); Hematocrit 43.7 % (37-47); Hemoglobin 14.3 g/dL (12.0-15.0); Lymphocyte % 12.6 % (19-41); Mean Corp Hgb Conc 32.7 g/dL (32-36); Mean Corpuscular Hgb 29.9 pg (27.0-32.0); Mean Corpuscular Volume 91.2 fL (81-99); Mean Platelet Vol. 10.8 fl (6.2-12.0); Monocyte# 0.26 X10^3/uL; Monocyte% 6.5 % (0-10); NRBC Flagged by Analyzer 0 % (0-5); Neutrophil # 3.16 X10^3/uL (2.7-7.7); Neutrophil % 79.4 % (47-70); POSITIVE DIFFERENTIAL YES; Platelet Count 125 K/mm3 (150-450); Red Blood Count 4.79 M/mm3 (4.2-5.4)
[2020-07-17 08:08] LABS: Alkaline Phosphatase 58 U/L (45-117); Anion Gap 7 (5-15); BUN 7 mg/dL (7-18); BUN/Creat Ratio 11.3 RATIO (10-20); Calcium,Total 7.3 mg/dL (8.5-10.1); Chloride 105 mmol/L (98-107); Creatinine, Serum 0.62 mg/dL (0.55-1.02); EST Glomerular Filtration Rate 100 mL/min (>60); Est Glom Filt Rate - Afr Amer 121 mL/min (>60); Estimated Creatinine Clearance 46.43 ml/min; Ferritin 579 ng/mL (8-252); Glucose 165 mg/dL (74-106); Magnesium 2.1 mg/dL (1.6-2.6); Potassium 3.1 mmol/L (3.5-5.1); Sodium Level 137 mmol/L (136-145)
[2020-07-17 08:18] LABS: Differential Indicated SCAN CRITERIA MET
[2020-07-17 08:30] LABS: Differential Comment SCANNED
[2020-07-17 08:31] LABS: D-Dimer Quantitative (DVT/PE) 0.73 FEU/ug/m (0.27-0.49)
--- NOTE | 2020-07-17 08:34 | NURSING ---
this nurse aware of ddimer 0.73, will notify pts nurse and dr galan
--- NOTE | 2020-07-17 08:57 | CT_ITS ---
STUDY: CTA CHEST REASON FOR EXAM: Female, 69 years old. SOB/COVID? TEST PENDING BUT POSITIVE RADIATION DOSAGE (If Supplied By Facility): CTDIvol = ( 11.97 ) mGy, DLP = ( 365.70 ) mGycm TECHNIQUE: The examination was performed with the intravenous administration of IV 100mL [id number]-300. Post-processing of the angiographic images was performed, with multiplanar reformation and 3D reconstruction. Individualized dose optimization techniques were used for this CT. COMPARISON: None. FINDINGS: Normal enhancement of the main pulmonary artery and right and left pulmonary arteries. Normal enhancement of the bilateral peripheral pulmonary arteries. There is no demonstrated pulmonary embolism. There is atherosclerotic calcification of the aortic arch and the descending thoracic aorta. There is no demonstrated aortic dissection. There are calcifications of the coronary arteries. Normal mediastinum. Normal hilar regions. Normal visualized trachea and bronchi. The lungs are well expanded. Focal peripheral patchy infiltrate in the posterior aspect of the right upper lobe. Patchy infiltrates are also seen in the posterior aspects of both upper lobes abutting the fissures. Patchy infiltrates in both lower lobes. Normal pleura. Normal chest wall structures. There are mild degenerative changes of thoracic spine. Normal visualized upper abdomen. CT/CTA Chest W/WO Contrast IMPRESSION: Patchy pulmonary infiltrates seen in both lower lobes as well as in the posterior aspect of the upper lobes. Follow-up is recommended. Electronically Signed: Vito Kim, at 10:52 EST , Service support ,
[2020-07-17] MEDS: Levothyroxine 50 MCG Tablet PO (10:39)
[2020-07-17] MEDS: Ramipril 2.5 MG Capsule PO (10:39)
[2020-07-17] MEDS: Clopidogrel Bisulfate 75 MG Tablet PO (10:39)
[2020-07-17] MEDS: dexAMETHasone 4 MG Tablet 6 MG PO (10:39)
[2020-07-17] MEDS: Enoxaparin 40 MG/0.4 ML Syringe SC ×2 (10:40→21:42)
[2020-07-17] MEDS: 0.9% Saline Lock 10 ML Syringe IV (10:55)
--- NOTE | 2020-07-17 11:46 | CASEMGMT ---
RN CM Assessment Note Introduced role of CM to patient via phone. Demographics, PCP verified. The patient states she is independent at home, no DME use and no care needs. She states her has equipment at home, but she does not use any. Diagnosis: COVID-19 PCP: Dr. Marion Roland Insurance: [facility] [place] Preferred Pharmacy: [facility] Prescription Benefit: yes LNOK: Enrrique De Los Santos and son Sivakumar De Los Santos Living Arrangements: Lives independently, no care needs per patient Tranportation: drives or son drives DME: none Patient DC Goals: Home on discharge DC Plan: anticipate home. Patient is currently not on oxygen @ [facility] CM available for discharge planning coordination. Contact CM for any concerns/needs that may arise. Rangel FORD RN ACM
[2020-07-17] MEDS: 0.9% Normal Saline 1,000 ML 75 ML IV (11:52)
[2020-07-17 13:01] LABS: Bedside Glucose 217 mg/dL (70-110)
[2020-07-17 13:12] LABS: Pathologist Review Reviewed
[2020-07-17] MEDS: amLODIPine 5 MG Tablet PO (13:44)
[2020-07-17] MEDS: proCHLORPERazine 10 MG/2 ML Vial 5 MG IV (14:16)
[2020-07-17] MEDS: Gabapentin 600 MG Tablet PO (16:28)
[2020-07-17 16:40] LABS: Bedside Glucose 339 mg/dL (70-110)
[2020-07-17] MEDS: ALPRAZolam 0.5 MG Tablet PO (21:42)
[2020-07-17] MEDS: HYDROcodone Bitartrate/Apap 5/325 Tablet PO (21:42)
[2020-07-17 22:25] LABS: Bedside Glucose 300 mg/dL (70-110)
[2020-07-18] VITALS (12 sets, daily range): BP systolic 148–159; BP diastolic 74–88; PULSE 65–82; RESP 18–22; TEMP 36.7–37.2; O2SAT 91–94
[2020-07-18] MEDS: 0.9% Normal Saline 1,000 ML 75 ML IV (04:22)
[2020-07-18 06:09] LABS: Hematocrit 41.4 % (37-47); Hemoglobin 13.5 g/dL (12.0-15.0); Mean Corp Hgb Conc 32.6 g/dL (32-36); Mean Corpuscular Hgb 29.4 pg (27.0-32.0); Mean Corpuscular Volume 90.2 fL (81-99); Mean Platelet Vol. 11.3 fl (6.2-12.0); Platelet Count 169 K/mm3 (150-450); RBC Distribution Width CV 13.2 % (11.6-14.6); RBC Distribution Width SD 43.7 fl (35.1-43.9); Red Blood Count 4.59 M/mm3 (4.2-5.4); White Blood Count 3.5 K/mm3 (4.4-11.0)
[2020-07-18 06:49] LABS: ALB/GLOB Ratio 0.8 RATIO (0.9-2.4); AST(SGOT) 22 U/L (15-37); Alanine Aminotransfer ALT/SGPT 15 U/L (13-56); Albumin, Serum 2.5 g/dL (3.2-5.0); Alkaline Phosphatase 53 U/L (45-117); Anion Gap 10 (5-15); BUN 11 mg/dL (7-18); BUN/Creat Ratio 18.3 RATIO (10-20); Calcium,Total 7.7 mg/dL (8.5-10.1); Chloride 107 mmol/L (98-107); EST Glomerular Filtration Rate 104 mL/min (>60); Est Glom Filt Rate - Afr Amer 126 mL/min (>60); Estimated Creatinine Clearance 46.43 ml/min; Globulin 3.1 g/dL (2.2-4.2); Glucose 229 mg/dL (74-106); Potassium 3.1 mmol/L (3.5-5.1); Protein, Total 5.6 g/dL (6.4-8.2); Sodium Level 141 mmol/L (136-145)
[2020-07-18] MEDS: Insulin Lispro 100 UNIT/ML INSULN.PEN SC ×4 (08:17→20:54)
[2020-07-18] MEDS: Clopidogrel Bisulfate 75 MG Tablet PO (08:56)
[2020-07-18] MEDS: amLODIPine 5 MG Tablet PO (08:56)
[2020-07-18] MEDS: ALPRAZolam 0.5 MG Tablet PO ×2 (08:56→23:14)
[2020-07-18] MEDS: Glimepiride 2 MG Tablet PO (08:56)
[2020-07-18] MEDS: Gabapentin 600 MG Tablet PO ×2 (08:56→16:22)
[2020-07-18] MEDS: Levothyroxine 50 MCG Tablet PO (08:57)
[2020-07-18] MEDS: Ramipril 2.5 MG Capsule 5 MG PO (08:57)
[2020-07-18] MEDS: dexAMETHasone 4 MG Tablet 6 MG PO (08:57)
[2020-07-18] MEDS: Enoxaparin 40 MG/0.4 ML Syringe SC ×2 (08:58→20:48)
[2020-07-18 10:01] LABS: Bedside Glucose 236 mg/dL (70-110)
--- NOTE | 2020-07-18 11:15 | PCM.PN.HOSP ---
Patient Problems: Active and Suspected Problems Debility (Acute) COVID-19 (Acute) Reason for Visit: COVID-19 pneumonia with fever Objective: Patient had fever, T-max 100.6 Fahrenheit yesterday night. Denies any cough, sputum production or shortness of breath or hemoptysis. Pulse ox 94% on room air. No tachycardia. No nausea or vomiting. Physical exam General: Alert, Oriented x3, Cooperative HEENT: Atraumatic, PERRLA, EOMI, Normocephalic Oral: No Gingival or Mucosal Lesions/ Ulcerations Neck: Supple, No JVD, Negative Carotid Bruits Lungs: Air entry diminished in bilateral lung bases. No crepitation/rhonchi. Cardiovascular: Regular rate, Regular Rhythm, Normal S1, Normal S2, No murmurs Abdomen: Bowel Sounds Present, Soft, Non Tender, Non-Distended : No renal angle tenderness. No suprapubic tenderness. Extremities: No edema, Capillary Refill Less than 3 Seconds Skin: No rashes, No breakdown Musculoskeletal: No Tenderness to Palpation of Joints or Extremities Neurological: Cranial nerves II-XII grossly intact, Deep Tendon Reflexes 2+/4 and Symmetrical, Neuro grossly intact Psych/Mental Status: Normal Affect, Appropriate. Vitals/I&O's: Vital Signs Temp Pulse Resp BP Pulse Ox 987.3 F H 74 18 151/79 H 94 07/18/20 08:22 07/18/20 08:22 07/18/20 08:22 07/18/20 08:22 07/18/20 08:22 Oxygen Delivery Method Room Air Weight: 186 lb 4.65 oz Body Mass Index (BMI) 30.9 Intake and Output for Last 24 Hours 07/16/20 07/17/20 07/18/20 23:59 23:59 23:59 Intake Total 915 / 1115 2957.5 / 2957.5 883.75 / 883.75 Output Total 1850 / 1850 200 / 200 Balance 915 / 915 1107.5 / 1107.5 683.75 / 683.75 Microbiology Past 72 Hours 07/17/20 01:40 Urine, Clean Catch Urine Culture - Final Mixed Gram Positive Organisms 07/17/20 15:11 Mucosa - Nasopharyngeal Respiratory Panel (PCR) - Final 07/17/20 12:45 Urine, Clean Catch Legionella Antigen - Final 07/17/20 12:45 Urine, Clean Catch Streptococcus pneumoniae Antigen (M - Final Laboratory Results 07/17/20 07:46: Diff Path Review Reviewed 07/17/20 11:46: POC Glucose 217 H 07/17/20 16:18: POC Glucose 339 H 07/17/20 21:41: POC Glucose 300 H 07/18/20 05:14: WBC 3.5 L, RBC 4.59, Hgb 13.5, Hct 41.4, MCV 90.2, MCH 29.4, MCHC 32.6, RDW Std Deviation 43.7, RDW Coeff of Pedro 13.2, Plt Count 169, MPV 11.3 07/18/20 05:14: Sodium 141, Potassium 3.1 L, Chloride 107, Carbon Dioxide 24.0, Anion Gap 10, BUN 11, Creatinine 0.60, Estim Creat Clear Calc 46.43, Est GFR (MDRD) Af Amer 126, Est GFR (MDRD) Non-Af 104, BUN/Creatinine Ratio 18.3, Glucose 229 H, Calcium 7.7 L, Total Bilirubin 0.40, AST 22, ALT 15, Alkaline Phosphatase 53, Total Protein 5.6 L, Albumin 2.5 L, Globulin 3.1, Albumin/Globulin Ratio 0.8 L 07/18/20 08:11: POC Glucose 236 H Current Medications Hydrocodone Bitart/Acetaminophen (Hydrocodone Bitartrate/Apap 5/325 Tablet) 1 tablet PO BID PRN PRN PRN Reason: Pain Score 1-3 Last Admin: 07/17/20 21:42 Dose: 1 tablet Documented by: Alprazolam (Alprazolam 0.5 Mg Tablet) 0.5 mg PO TID PRN PRN PRN Reason: ANXIETY Last Admin: 07/18/20 08:56 Dose: 0.5 mg Documented by: Amlodipine Besylate (Amlodipine 5 Mg Tablet) 5 mg PO DAILY [facility] Last Admin: 07/18/20 08:56 Dose: 5 mg Documented by: Clopidogrel Bisulfate (Clopidogrel Bisulfate 75 Mg Tablet) 75 mg PO DAILY@0800 [facility] Last Admin: 07/18/20 08:56 Dose: 75 mg Documented by: Dexamethasone (Dexamethasone 4 Mg Tablet) 6 mg PO DAILY@0800 [facility] Last Admin: 07/18/20 08:57 Dose: 6 mg Documented by: Dextrose (Dextrose 50%-Water 25 Gm/50 Ml Disp.Syrin) 0 gm IV X1 PRN; Protocol PRN Reason: Hypoglycemia Enoxaparin Sodium (Enoxaparin 40 Mg/0.4 Ml Syringe) 40 mg SC BID@0800,2200 [facility] Last Admin: 07/18/20 08:58 Dose: 40 mg Documented by: Ergocalciferol (Ergocalciferol 50,000 Unit Capsule) 50,000 unit PO Fr@0800 [facility] Gabapentin (Gabapentin 600 Mg Tablet) 600 mg PO BIDCM [facility] Last Admin: 07/18/20 08:56 Dose: 600 mg Documented by: Glimepiride (Glimepiride 2 Mg Tablet) 2 mg PO DAILY@0800 [facility] Last Admin: 07/18/20 08:56 Dose: 2 mg Documented by: Glucagon (Glucagon 1 Mg/Ml Syringe) 1 mg IM .X1 PRN PRN Reason: Hypoglycemia Ceftriaxone Sodium 2 gm/ (Sodium Chloride) 50 mls @ 100 mls/hr IV Q24 [facility] Last Infusion: 07/18/20 08:55 Dose: Infused Documented by: Azithromycin 500 mg/ Dextrose 255 mls @ 250 mls/hr IV Q24 [facility] Stop: 07/20/20 11:39 Last Admin: 07/18/20 08:54 Dose: 250 mls/hr Documented by: Remdesivir 100 mg/ Sodium (Chloride) 250 mls @ 125 mls/hr IV DAILY [facility]; Protocol Stop: 07/21/20 11:59 Insulin Glargine (Insulin Glargine 100 Units/Ml Pen) 40 units SC DAILY@0800 [facility] Last Admin: 07/18/20 08:18 Dose: 40 u Documented by: Insulin Human Lispro (Insulin Lispro 100 Unit/Ml Insuln.Pen) 0 unit SC ACHS [facility]; Protocol Last Admin: 07/18/20 08:17 Dose: 3 u Documented by: Levothyroxine Sodium (Levothyroxine 50 Mcg Tablet) 50 mcg PO DAILY@0800 [facility] Last Admin: 07/18/20 08:57 Dose: 50 mcg Documented by: Oxycodone HCl (Oxycodone 5 Mg Tablet) 5 mg PO Q4H PRN PRN PRN Reason: Pain Score 4-5 Prochlorperazine Edisylate (Prochlorperazine 10 Mg/2 Ml Vial) 5 mg IV Q6H PRN PRN PRN Reason: NAUSEA/VOMITING Last Admin: 07/17/20 14:16 Dose: 5 mg Documented by: Ramipril (Ramipril 2.5 Mg Capsule) 5 mg PO DAILY@0800 [facility] Last Admin: 07/18/20 08:57 Dose: 5 mg Documented by: Sodium Chloride (0.9% Saline Lock 10 Ml Syringe) 10 - 40 ml IV UD PRN PRN Reason: SALINE FLUSH Last Admin: 07/17/20 10:55 Dose: 20 ml Documented by: STROKE Vital Signs/Narrative: Vital Signs Temp Pulse Resp BP Pulse Ox 07/18/20 08:22 987.3 F H 74 18 151/79 H 94 Medical Necessity - Tobacco Use Smoking Status: Never smoker Tobacco Use: Non-smoker, Secondhand Assessment/Plan All Active Problems Debility (Acute) COVID-19 (Acute) The patient is a 69 year old F with past medical history of type 2 diabetes mellitus, hypertension and hypothyroidism who is admitted for shortness of breath, cough, fever and chills and generalized weakness for the past 6 days and COVID-19 PCR positive PCP. Chest x-ray no acute cardiopulmonary findings. CBC leukopenia and mild thrombocytopenia. Patient was exposed to her about 7 days ago who was COVID-19 pneumonia and was admitted in the hospital recently. 1. Bilateral COVID-19 pneumonia: CTA chest was done for high D-dimer and high priority of PE but was negative for thromboembolism. It showed patchy pulmonary infiltrate in both lower lobes and upper lobes. Patient does not have significant is different production or cough. Started on IV Rocephin and Zithromax. Urinary antigens and respiratory panel ordered. ID consult and discussed with Dr. Toscano and approved for IV remdesivir. Continue Decadron. Lovenox 40 mg subcu twice daily. IV fluid 75 mils per hour as patient had CT contrast. Physical therapy. Bronchodilator as needed. Monitor CBCs and CMP daily. PT and OT and fall precaution. 07/18: Urinary antigens are negative. Respiratory panel negative. Continue above treatment remdesivir and Decadron. On Rocephin and Zithromax. 2. Type 2 diabetes mellitus: On Trulicity and glimepiride.: Lantus 40 units daily. Insulin sliding scale. Accu-Cheks AC at bedtime. 07/18: Glucose is elevated. Glimepiride increased to 4 mg daily. Lantus 10 units at dinnertime added. 3. Mild hypokalemia, potassium replaced. Check magnesium. #Hypertension: Blood pressure is elevated. Amlodipine 5 mg added and ramipril dose increased to 5 mg daily. #CAD: On Plavix. VTE prophylaxis: Lovenox CODE STATUS: Full code Clinical Impression(s) from Imaging Studies Chest X-Ray 07/16/20 15:50 IMPRESSION: No acute findings. Electronically Signed: Brittni Smith MD at 16:22 EST Tel , Service support , Chest CTA 07/17/20 08:57 IMPRESSION: Patchy pulmonary infiltrates seen in both lower lobes as well as in the posterior aspect of the upper lobes. Follow-up is recommended. Microbiology Past 72 Hours 07/17/20 01:40 Urine, Clean Catch Urine Culture - Final Mixed Gram Positive Organisms 07/17/20 15:11 Mucosa - Nasopharyngeal Respiratory Panel (PCR) - Final 07/17/20 12:45 Urine, Clean Catch Legionella Antigen - Final 07/17/20 12:45 Urine, Clean Catch Streptococcus pneumoniae Antigen (M - Final Laboratory Results 07/17/20 07:46: Diff Path Review Reviewed 07/17/20 11:46: POC Glucose 217 H 07/17/20 16:18: POC Glucose 339 H 07/17/20 21:41: POC Glucose 300 H 07/18/20 05:14: WBC 3.5 L, RBC 4.59, Hgb 13.5, Hct 41.4, MCV 90.2, MCH 29.4, MCHC 32.6, RDW Std Deviation 43.7, RDW Coeff of Pedro 13.2, Plt Count 169, MPV 11.3 07/18/20 05:14: Sodium 141, Potassium 3.1 L, Chloride 107, Carbon Dioxide 24.0, Anion Gap 10, BUN 11, Creatinine 0.60, Estim Creat Clear Calc 46.43, Est GFR (MDRD) Af Amer 126, Est GFR (MDRD) Non-Af 104, BUN/Creatinine Ratio 18.3, Glucose 229 H, Calcium 7.7 L, Total Bilirubin 0.40, AST 22, ALT 15, Alkaline Phosphatase 53, Total Protein 5.6 L, Albumin 2.5 L, Globulin 3.1, Albumin/Globulin Ratio 0.8 L 07/18/20 08:11: POC Glucose 236 H Inpatient E&M: 42575 Subs Hosp L2
[2020-07-18 11:31] LABS: Bedside Glucose 269 mg/dL (70-110)
[2020-07-18 11:41] LABS: Magnesium 2.2 mg/dL (1.6-2.6)
--- NOTE | 2020-07-18 15:26 | PCM.HP.ID ---
Problem List (1) COVID-19 Status: Acute Reason for Consult: covid Consulted by: Dr. Fraser History of Present Illness: The patient is a 69 year old F with sx starting 07/09 with fever, fatigue, not feeling well, some diarrhea, some cough and dyspnea. No change in taste or smell. also sick was in hospital last week. Came to ED, fever to 100.6, 93% on RA. Admitted on azithro/ceftriaxone, dex, and started remdesivir 07/17. Feeling better today. Full ROS performed and neg except as noted above. - Medical History Past Medical History (Chronic Problems): Chronic Problems Type 2 diabetes mellitus (Chronic) Hypertension (Chronic) Hypothyroidism (Chronic) Allergies/Adverse Reactions: Allergies No Known Allergies Allergy (Verified 07/16/20 14:33) Home Medications: Ambulatory Orders Medication Instructions Recorded ALPRAZolam [Xanax] 0.5 mg PO TID PRN PRN 07/16/20 Clopidogrel Bisulfate [Plavix] 75 mg PO DAILY 07/16/20 Dulaglutide [Trulicity] 0.75 mg SQ QWEEK 07/16/20 Ergocalciferol (Vitamin D2) 50,000 unit PO QWEEK 07/16/20 [Vitamin D2] Furosemide [Lasix] 40 mg PO DAILY 07/16/20 Gabapentin [Neurontin] 600 mg PO BIDCM 07/16/20 Glimepiride 4 mg PO DAILY 07/16/20 Hydrocodone/Acetaminophen [[place] 1 ea PO BID PRN PRN 07/16/20 5-325 Tablet] Insulin Detemir [Levemir] 44 unit SQ DAILY 07/16/20 Levothyroxine Sodium [Synthroid] 50 mcg PO DAILY 07/16/20 Ondansetron HCl [Zofran] 4 mg PO Q6H PRN PRN 07/16/20 Ramipril 2.5 mg PO DAILY 07/16/20 - Social History Tobacco Use: non-smoker Vital Signs Temp Pulse Resp BP Pulse Ox 98.8 F 76 18 148/78 H 91 07/18/20 14:30 07/18/20 15:00 07/18/20 14:30 07/18/20 14:30 07/18/20 15:00 Oxygen Delivery Method Room Air Weight: 84.5 kg Body Mass Index (BMI) 30.9 Microbiology Past 72 Hours 07/16/20 15:30 Blood Culture - Preliminary Blood Culture (Wb) - Right Hand No growth in 48 hours. 07/16/20 15:10 Blood Culture - Preliminary Blood Culture (Wb) - Left Hand No growth in 48 hours. 07/17/20 01:40 Urine Culture - Final Urine, Clean Catch Mixed Gram Positive Organisms 07/17/20 15:11 Respiratory Panel (PCR) - Final Mucosa - Nasopharyngeal 07/17/20 12:45 Legionella Antigen - Final Urine, Clean Catch Streptococcus pneumoniae Antigen (M - Final Laboratory Tests Past 24 Hrs 07/18/20 07/18/20 07/18/20 05:14 05:14 05:14 WBC 3.5 L RBC 4.59 Hgb 13.5 Hct 41.4 MCV 90.2 MCH 29.4 MCHC 32.6 RDW Std Deviation 43.7 RDW Coeff of Pedro 13.2 Plt Count 169 MPV 11.3 Sodium 141 Potassium 3.1 L Chloride 107 Carbon Dioxide 24.0 Anion Gap 10 BUN 11 Creatinine 0.60 Estim Creat Clear Calc 46.43 Est GFR (MDRD) Af Amer 126 Est GFR (MDRD) Non-Af 104 BUN/Creatinine Ratio 18.3 Glucose 229 H Calcium 7.7 L Magnesium 2.2 Total Bilirubin 0.40 AST 22 ALT 15 Alkaline Phosphatase 53 Total Protein 5.6 L Albumin 2.5 L Globulin 3.1 Albumin/Globulin Ratio 0.8 L - Other Studies Radiology: [] reviewed Other Studies: [] Route of nutrition/ use of supplements: [] Nutritional Intake: [] IV Site: [] House Catheter: [] - Physical Exam General: Alert, Oriented x3, Cooperative HEENT: Atraumatic, PERRLA, EOMI Neck: Supple, No Nodes Lungs: Diminished Cardiovascular: Regular rate, Regular Rhythm Abdomen: Soft, Non Tender, Non-Distended Extremities: No edema Skin: No rashes IV Site: Peripheral, without redness Musculoskeletal: No Tenderness to Palpation of Joints or Extremities Neurological: Cranial nerves II-XII grossly intact - Assessment/Plan Antibiotics: [] Assessment/Plan: [] Active and Suspected Problems Debility (Acute) COVID-19 (Acute) covid with hypoxia - 93% on RA on admit. On dex, remdesivir, lovenox 40mg bid. Will stop abx, no sign of bacterial infection at this point. CT showed no PE. Changing dex to po. UCx with 1-10k mixed adrianne. Will follow, thank you
[2020-07-18 16:36] LABS: Bedside Glucose 389 mg/dL (70-110)
--- NOTE | 2020-07-18 22:29 | NURSING ---
Tried calling Pt but no answer and did not have a voicemail box that was set up.
--- NOTE | 2020-07-18 22:37 | NURSING ---
Called home phone and was able to get a hold of . Will let Pt know I talked with . Talked with son.
[2020-07-18] MEDS: HYDROcodone Bitartrate/Apap 5/325 Tablet PO (23:14)
[2020-07-18 23:31] LABS: Bedside Glucose 381 mg/dL (70-110)
[2020-07-19] VITALS (12 sets, daily range): BP systolic 141–176; BP diastolic 69–79; PULSE 64–94; RESP 18–20; TEMP 36.3–36.9; O2SAT 92–98
[2020-07-19] MEDS: Insulin Lispro 100 UNIT/ML INSULN.PEN SC ×2 (06:18→11:33)
[2020-07-19] MEDS: hydrALAZINE 20 MG/ML Vial 10 MG IV (06:27)
[2020-07-19] MEDS: 0.9% Saline Lock 10 ML Syringe IV ×2 (06:28→10:22)
[2020-07-19 08:01] LABS: Hematocrit 42.5 % (37-47); Hemoglobin 14.5 g/dL (12.0-15.0); Mean Corp Hgb Conc 34.1 g/dL (32-36); Mean Corpuscular Hgb 30.4 pg (27.0-32.0); Mean Corpuscular Volume 89.1 fL (81-99); Mean Platelet Vol. 11.2 fl (6.2-12.0); Platelet Count 239 K/mm3 (150-450); RBC Distribution Width SD 42.9 fl (35.1-43.9); Red Blood Count 4.77 M/mm3 (4.2-5.4)
[2020-07-19 08:20] LABS: Bedside Glucose 266 mg/dL (70-110)
[2020-07-19] MEDS: Enoxaparin 40 MG/0.4 ML Syringe SC (08:32)
[2020-07-19] MEDS: Clopidogrel Bisulfate 75 MG Tablet PO (08:32)
[2020-07-19] MEDS: dexAMETHasone 4 MG Tablet 6 MG PO (08:32)
[2020-07-19] MEDS: Gabapentin 600 MG Tablet PO (08:33)
[2020-07-19] MEDS: Ramipril 2.5 MG Capsule 5 MG PO (08:33)
[2020-07-19] MEDS: amLODIPine 5 MG Tablet PO (08:33)
[2020-07-19] MEDS: Glimepiride 4 MG Tablet PO (08:33)
[2020-07-19] MEDS: Levothyroxine 50 MCG Tablet PO (08:33)
[2020-07-19 08:46] LABS: ALB/GLOB Ratio 0.7 RATIO (0.9-2.4); AST(SGOT) 17 U/L (15-37); Alanine Aminotransfer ALT/SGPT 13 U/L (13-56); Albumin, Serum 2.6 g/dL (3.2-5.0); Alkaline Phosphatase 60 U/L (45-117); Anion Gap 7 (5-15); BUN 18 mg/dL (7-18); BUN/Creat Ratio 24.3 RATIO (10-20); Calcium,Total 8.4 mg/dL (8.5-10.1); Chloride 107 mmol/L (98-107); Creatinine, Serum 0.74 mg/dL (0.55-1.02); EST Glomerular Filtration Rate 82 mL/min (>60); Est Glom Filt Rate - Afr Amer 99 mL/min (>60); Estimated Creatinine Clearance 46.43 ml/min; Globulin 3.7 g/dL (2.2-4.2); Glucose 243 mg/dL (74-106); Protein, Total 6.3 g/dL (6.4-8.2); Sodium Level 142 mmol/L (136-145)
--- NOTE | 2020-07-19 11:16 | PCM.PN.ID ---
Patient Problems: Active and Suspected Problems Debility (Acute) COVID-19 (Acute) Subjective: Sx much improved, on RA, feeling better, no fever, no n/v/d. - Physical Exam Vitals/I&O's: Vital Signs Temp Pulse Resp BP Pulse Ox 98.2 F 71 18 152/69 H 93 07/19/20 08:30 07/19/20 08:30 07/19/20 09:00 07/19/20 08:30 07/19/20 08:30 Oxygen Delivery Method Room Air Weight: 84.5 kg Body Mass Index (BMI) 30.9 Intake and Output for Last 24 Hours 07/17/20 07/18/20 07/19/20 23:59 23:59 23:59 Intake Total 2957.5 / 2957.5 2616.25 / 2616.25 100 / 100 Output Total 1850 / 1850 1050 / 1050 225 / 225 Balance 1107.5 / 1107.5 1566.25 / 1566.25 -125 / -125 General: Alert, Cooperative, No apparent distress Lungs: Clear to auscultation Cardiovascular: Regular rate, Regular Rhythm Abdomen: Soft, Non Tender, Non-Distended Skin: No rashes Microbiology Past 72 Hours 07/16/20 15:30 Blood Culture (Wb) - Right Hand Blood Culture - Preliminary No growth in 48 hours. 07/16/20 15:10 Blood Culture (Wb) - Left Hand Blood Culture - Preliminary No growth in 48 hours. 07/17/20 01:40 Urine, Clean Catch Urine Culture - Final Mixed Gram Positive Organisms 07/17/20 15:11 Mucosa - Nasopharyngeal Respiratory Panel (PCR) - Final 07/17/20 12:45 Urine, Clean Catch Legionella Antigen - Final 07/17/20 12:45 Urine, Clean Catch Streptococcus pneumoniae Antigen (M - Final Laboratory Results 07/18/20 05:14: Magnesium 2.2 07/18/20 11:12: POC Glucose 269 H 07/18/20 16:19: POC Glucose 389 H 07/18/20 20:53: POC Glucose 381 H 07/19/20 06:17: POC Glucose 266 H 07/19/20 06:44: WBC 7.0, RBC 4.77, Hgb 14.5, Hct 42.5, MCV 89.1, MCH 30.4, MCHC 34.1, RDW Std Deviation 42.9, RDW Coeff of Pedro 13.0, Plt Count 239, MPV 11.2 07/19/20 06:44: Sodium 142, Potassium 3.0 L, Chloride 107, Carbon Dioxide 28.0, Anion Gap 7, BUN 18, Creatinine 0.74, Estim Creat Clear Calc 46.43, Est GFR (MDRD) Af Amer 99, Est GFR (MDRD) Non-Af 82, BUN/Creatinine Ratio 24.3 H, Glucose 243 H, Calcium 8.4 L, Total Bilirubin 0.30, AST 17, ALT 13, Alkaline Phosphatase 60, Total Protein 6.3 L, Albumin 2.6 L, Globulin 3.7, Albumin/Globulin Ratio 0.7 L Current Medications Hydrocodone Bitart/Acetaminophen (Hydrocodone Bitartrate/Apap 5/325 Tablet) 1 tablet PO BID PRN PRN PRN Reason: Pain Score 1-3 Last Admin: 07/18/20 23:14 Dose: 1 tablet Documented by: Alprazolam (Alprazolam 0.5 Mg Tablet) 0.5 mg PO TID PRN PRN PRN Reason: ANXIETY Last Admin: 07/18/20 23:14 Dose: 0.5 mg Documented by: Amlodipine Besylate (Amlodipine 5 Mg Tablet) 5 mg PO DAILY@0800 [facility] Clopidogrel Bisulfate (Clopidogrel Bisulfate 75 Mg Tablet) 75 mg PO DAILY@0800 [facility] Last Admin: 07/19/20 08:32 Dose: 75 mg Documented by: Dexamethasone (Dexamethasone 4 Mg Tablet) 6 mg PO DAILY@0800 [facility] Stop: 07/26/20 08:01 Last Admin: 07/19/20 08:32 Dose: 6 mg Documented by: Dextrose (Dextrose 50%-Water 25 Gm/50 Ml Disp.Syrin) 0 gm IV X1 PRN; Protocol PRN Reason: Hypoglycemia Enoxaparin Sodium (Enoxaparin 40 Mg/0.4 Ml Syringe) 40 mg SC BID@0800,2200 [facility] Last Admin: 07/19/20 08:32 Dose: 40 mg Documented by: Ergocalciferol (Ergocalciferol 50,000 Unit Capsule) 50,000 unit PO Fr@0800 [facility] ([facility] 600 Mg Tablet) [facility] Last Admin: 11/19/20 08:33 Dose: 600 mg Documented by: Glimepiride (Glimepiride 4 Mg Tablet) 4 mg PO DAILY@0800 [facility] Last Admin: 07/19/20 08:33 Dose: 4 mg Documented by: Glucagon (Glucagon 1 Mg/Ml Syringe) 1 mg IM .X1 PRN PRN Reason: Hypoglycemia Hydralazine HCl (Hydralazine 20 Mg/Ml Vial) 10 mg IV Q4H PRN PRN PRN Reason: sys >160 Last Admin: 07/19/20 06:27 Dose: 10 mg Documented by: Remdesivir 100 mg/ Sodium (Chloride) 250 mls @ 125 mls/hr IV DAILY [facility]; Protocol Stop: 07/21/20 11:59 Last Admin: 07/19/20 10:22 Dose: 125 mls/hr Documented by: Insulin Glargine (Insulin Glargine 100 Units/Ml Pen) 40 units SC DAILY@0800 [facility] Last Admin: 07/19/20 08:34 Dose: 40 u Documented by: Insulin Glargine (Insulin Glargine 100 Units/Ml Pen) 10 units SC DINNER [facility] Last Admin: 07/18/20 16:20 Dose: 10 u Documented by: Insulin Human Lispro (Insulin Lispro 100 Unit/Ml Insuln.Pen) 0 unit SC ACHS [facility]; Protocol Last Admin: 07/19/20 06:18 Dose: 3 u Documented by: Levothyroxine Sodium (Levothyroxine 50 Mcg Tablet) 50 mcg PO DAILY@0800 [facility] Last Admin: 07/19/20 08:33 Dose: 50 mcg Documented by: Oxycodone HCl (Oxycodone 5 Mg Tablet) 5 mg PO Q4H PRN PRN PRN Reason: Pain Score 4-5 Potassium Chloride (Potassium Chloride 20 Meq Tablet) [facility] Stop: 07/20/20 11:22 Last Admin: 07/19/20 08:33 Dose: 40 meq Documented by: Prochlorperazine Edisylate (Prochlorperazine 10 Mg/2 Ml Vial) 5 mg IV Q6H PRN PRN PRN Reason: NAUSEA/VOMITING Last Admin: 07/17/20 14:16 Dose: 5 mg Documented by: Ramipril (Ramipril 2.5 Mg Capsule) 5 mg PO DAILY@0800 [facility] Last Admin: 07/19/20 08:33 Dose: 5 mg Documented by: Sodium Chloride (0.9% Saline Lock 10 Ml Syringe) 10 - 40 ml IV UD PRN PRN Reason: SALINE FLUSH Last Admin: 07/19/20 10:22 Dose: 10 ml Documented by: Sodium Chloride (0.9% Saline Lock 10 Ml Syringe) 10 - 40 ml IV UD PRN PRN Reason: SALINE FLUSH Medical Necessity - Tobacco Use Smoking Status: Never smoker Tobacco Use: Non-smoker, Secondhand Route of nutrition/ use of supplements: [] Nutritional Intake: [] IV Site: [] House Catheter: [] - Assessment/Plan Antibiotics: [] Assessment/Plan: [] Active and Suspected Problems Debility (Acute) COVID-19 (Acute) covid with hypoxia - 93% on RA on admit. On dex, remdesivir, lovenox 40mg bid. Much improved, doing well on RA, ok for home to complete 10 days total dex and 2 weeks of quarantine from start of symptoms. Will follow as needed, d/w Dr. Izquierdo
--- NOTE | 2020-07-19 11:33 | PCM.DC ---
- Discharge Diagnoses Current Active Problems: Current Active and Chronic Problems Type 2 diabetes mellitus (Chronic) Hypertension (Chronic) Hypothyroidism (Chronic) Debility (Acute) COVID-19 (Acute) You will use the following diet at home:: Calorie/Carbohydrate Controlled (specify 1200, 1400, etc), Cardiac Your food should be the consistency of: Regular Discharge Activity: May Not Drive Call your doctor if you observe: Fever of 101 or Higher, Coldness, Increased Pain, Numbness or Tingling, Inability to urinate, Inability to have a bowel movement, Shortness of breath, Dizziness, Fainting spells, Swelling in the ankles, Chest pain, Prolonged hiccoughing, Increased palpitations (irregular heartbeat), Calf discomfort, Uncontrolled pain Additional Instructions: Self quarantine for 2 weeks from the start of symptoms until 07/25/2020 Follow-up BMP in 1 week PCP as patient has mild hypokalemia and is on Lasix Allergies/Adverse Reactions: Allergies No Known Allergies Allergy (Verified 07/16/20 14:33) Medications to take at Discharge ALPRAZolam [Xanax] 0.5 mg PO TID PRN PRN 07/16/20 Clopidogrel Bisulfate [Plavix] 75 mg PO DAILY 07/16/20 Dulaglutide [Trulicity] 0.75 mg SQ QWEEK 07/16/20 Ergocalciferol (Vitamin D2) [Vitamin D2] 50,000 unit PO QWEEK 07/16/20 Furosemide [Lasix] 40 mg PO DAILY 07/16/20 Gabapentin [Neurontin] 600 mg PO BIDCM 07/16/20 Glimepiride 4 mg PO DAILY 07/16/20 Hydrocodone/Acetaminophen [[place] 5-325 Tablet] 1 ea PO BID PRN PRN 07/16/20 Insulin Detemir [Levemir] 44 unit SQ DAILY 07/16/20 Levothyroxine Sodium [Synthroid] 50 mcg PO DAILY 07/16/20 Ondansetron HCl [Zofran] 4 mg PO Q6H PRN PRN 07/16/20 Apixaban [Eliquis] 2.5 mg PO BID #30 tab 07/19/20 Dexamethasone [Decadron] 6 mg PO DAILY@0800 #7 tab 07/19/20 Guaifenesin [Mucinex] 1,200 mg PO BID #14 tab.er.12h 07/19/20 Potassium Chloride [K-Dur] 20 meq PO DAILYCM #30 tab 07/19/20 Ramipril 5 mg PO DAILY #0 07/19/20 The following prescriptions were given: Dexamethasone [Decadron] 6 mg PO DAILY@0800 #7 tab [facility] Status: [facility] Apixaban [Eliquis] 2.5 mg PO BID #30 tab Transmission Status: P[facility] to [facility] Potassium Chloride [K-Dur] 20 meq PO DAILYCM #30 tab Transmission Status: P[facility] to [facility] [facility] Guaifenesin [Mucinex] 1,200 mg PO BID #14 tab.er.12h Transmission Status: P[facility] to [facility] [facility] Primary Care Physician: Marion Roland DO [Primary Care Provider] - Please follow up with your Primary Care Physician in: In 2 weeks Test Results: Test results from this visit will be discussed in further detail at your follow-up appointment, if applicable.
--- NOTE | 2020-07-19 11:36 | PCM.DC.SUM ---
Discharge Date and Diagnosis - Problem List Patient Problems: Active and Suspected Problems Debility (Acute) COVID-19 (Acute) Date of Admission: 07/16/20 Date of Discharge: 07/19/20 - Primary Discharge Diagnosis Acute Problems: Active Problems Debility (Acute) COVID-19 (Acute) Bilateral COVID-19 pneumonia. Mild hypokalemia - Secondary Discharge Diagnosis Chronic Problems: Chronic Problems Type 2 diabetes mellitus (Chronic) Hypertension (Chronic) Hypothyroidism (Chronic) Hospital Course and Treatment Summary of Care Provided: [] The patient is a 69 year old F with past medical history of type 2 diabetes mellitus, hypertension and hypothyroidism who is admitted for shortness of breath, cough, fever and chills and generalized weakness for the past 6 days and COVID-19 PCR positive PCP. Chest x-ray no acute cardiopulmonary findings. CBC leukopenia and mild thrombocytopenia. Patient was exposed to her about 7 days ago who was COVID-19 pneumonia and was admitted in the hospital recently. 1. Bilateral COVID-19 pneumonia: CTA chest was done for high D-dimer and high priority of PE but was negative for thromboembolism. It showed patchy pulmonary infiltrate in both lower lobes and upper lobes. Patient does not have significant mucus production or cough or chest congestion. Initially started on Rocephin and Zithromax. Urinary antigens and respiratory panel negative. ID approved for IV remdesivir. On Decadron. Later on, Rocephin and Zithromax was discontinued. Seen by ID and recommended to complete Decadron for a total of 10 days. Patient is discharged on Eliquis 2.5 mg p.o. twice daily for 2 more weeks. 2. Type 2 diabetes mellitus: On Trulicity and glimepiride.: Lantus 40 units daily. Insulin sliding scale. Accu-Cheks AC at bedtime. Glucose is not well controlled. Lantus dose increased. Glimepiride 4 mg daily. Follow-up with PCP for further control of glucose. 3. Mild hypokalemia, potassium replaced. Magnesium 2.2. Patient is discharged on K. Dur 20 mg daily along with Lasix 40 mg daily. Follow-up repeat BMP in 1 week with PCP. #Hypertension: Blood pressure is controlled. Ramipril dose increased to 5 mg daily. #CAD: On Plavix. VTE prophylaxis: Lovenox CODE STATUS: Full code Discharge medication reconciliation done. Discharge follow-up instructions completed. Discharge process discussed with the patient and all questions were answered to patient's satisfaction. Total time spent, exact 35 minutes on discharge meds reconciliation, examination, coordination of care with nurses and ancillary staff, review of imaging and blood test and discussion with the patient on follow-up instructions Patient Problems: Active and Suspected Problems Debility (Acute) COVID-19 (Acute) Objective: She does not have fever or chills. Pulse ox 98% on room air. Blood pressure and heart rate is controlled. Patient wants to go home. Denies symptoms of nausea, vomiting, shortness of breath or chest congestion. Physical exam General: Alert, Oriented x3, Cooperative HEENT: Atraumatic, PERRLA, EOMI, Normocephalic Oral: No Gingival or Mucosal Lesions/ Ulcerations Neck: Supple, No JVD, Negative Carotid Bruits Lungs: Air entry diminished in bilateral lung bases. No crepitation/rhonchi. No tachypnea or hypoxia. Cardiovascular: Regular rate, Regular Rhythm, Normal S1, Normal S2, No murmurs Abdomen: Bowel Sounds Present, Soft, Non Tender, Non-Distended : No renal angle tenderness. No suprapubic tenderness. Extremities: No edema, Capillary Refill Less than 3 Seconds Skin: No rashes, No breakdown Musculoskeletal: No Tenderness to Palpation of Joints or Extremities Neurological: Cranial nerves II-XII grossly intact, Deep Tendon Reflexes 2+/4 and Symmetrical, Neuro grossly intact Psych/Mental Status: Normal Affect, Appropriate. - Physical Exam Vitals/I&O's: Vital Signs Temp Pulse Resp BP Pulse Ox 98.2 F 71 18 152/69 H 93 07/19/20 08:30 07/19/20 08:30 07/19/20 09:00 07/19/20 08:30 07/19/20 08:30 Oxygen Delivery Method Room Air Weight: 186 lb 4.65 oz Body Mass Index (BMI) 30.9 Intake and Output for Last 24 Hours 07/17/20 07/18/20 07/19/20 23:59 23:59 23:59 Intake Total 2957.5 / 2957.5 2616.25 / 2616.25 100 / 100 Output Total 1850 / 1850 1050 / 1050 225 / 225 Balance 1107.5 / 1107.5 1566.25 / 1566.25 -125 / -125 Microbiology Past 72 Hours 07/16/20 15:30 Blood Culture (Wb) - Right Hand Blood Culture - Preliminary No growth in 48 hours. 07/16/20 15:10 Blood Culture (Wb) - Left Hand Blood Culture - Preliminary No growth in 48 hours. 07/17/20 01:40 Urine, Clean Catch Urine Culture - Final Mixed Gram Positive Organisms 07/17/20 15:11 Mucosa - Nasopharyngeal Respiratory Panel (PCR) - Final 07/17/20 12:45 Urine, Clean Catch Legionella Antigen - Final 07/17/20 12:45 Urine, Clean Catch Streptococcus pneumoniae Antigen (M - Final Laboratory Results 07/18/20 05:14: Magnesium 2.2 07/18/20 16:19: POC Glucose 389 H 07/18/20 20:53: POC Glucose 381 H 07/19/20 06:17: POC Glucose 266 H 07/19/20 06:44: WBC 7.0, RBC 4.77, Hgb 14.5, Hct 42.5, MCV 89.1, MCH 30.4, MCHC 34.1, RDW Std Deviation 42.9, RDW Coeff of Pedro 13.0, Plt Count 239, MPV 11.2 07/19/20 06:44: Sodium 142, Potassium 3.0 L, Chloride 107, Carbon Dioxide 28.0, Anion Gap 7, BUN 18, Creatinine 0.74, Estim Creat Clear Calc 46.43, Est GFR (MDRD) Af Amer 99, Est GFR (MDRD) Non-Af 82, BUN/Creatinine Ratio 24.3 H, Glucose 243 H, Calcium 8.4 L, Total Bilirubin 0.30, AST 17, ALT 13, Alkaline Phosphatase 60, Total Protein 6.3 L, Albumin 2.6 L, Globulin 3.7, Albumin/Globulin Ratio 0.7 L Current Medications Hydrocodone Bitart/Acetaminophen (Hydrocodone Bitartrate/Apap 5/325 Tablet) 1 tablet PO BID PRN PRN PRN Reason: Pain Score 1-3 Last Admin: 07/18/20 23:14 Dose: 1 tablet Documented by: Alprazolam (Alprazolam 0.5 Mg Tablet) 0.5 mg PO TID PRN PRN PRN Reason: ANXIETY Last Admin: 07/18/20 23:14 Dose: 0.5 mg Documented by: Amlodipine Besylate (Amlodipine 5 Mg Tablet) 5 mg PO DAILY@0800 [facility] Clopidogrel Bisulfate (Clopidogrel Bisulfate 75 Mg Tablet) 75 mg PO DAILY@0800 [facility] Last Admin: 07/19/20 08:32 Dose: 75 mg Documented by: Dexamethasone (Dexamethasone 4 Mg Tablet) 6 mg PO DAILY@0800 [facility] Stop: 07/26/20 08:01 Last Admin: 07/19/20 08:32 Dose: 6 mg Documented by: Dextrose (Dextrose 50%-Water 25 Gm/50 Ml Disp.Syrin) 0 gm IV X1 PRN; Protocol PRN Reason: Hypoglycemia Enoxaparin Sodium (Enoxaparin 40 Mg/0.4 Ml Syringe) 40 mg SC BID@0800,2200 [facility] Last Admin: 07/19/20 08:32 Dose: 40 mg Documented by: Ergocalciferol (Ergocalciferol 50,000 Unit Capsule) 50,000 unit PO Fr@0800 [facility] Gabapentin (Gabapentin 600 Mg Tablet) 600 mg PO BIDCM [facility] Last Admin: 07/19/20 08:33 Dose: 600 mg Documented by: Glimepiride (Glimepiride 4 Mg Tablet) 4 mg PO DAILY@0800 [facility] Last Admin: 07/19/20 08:33 Dose: 4 mg Documented by: Glucagon (Glucagon 1 Mg/Ml Syringe) 1 mg IM .X1 PRN PRN Reason: Hypoglycemia Hydralazine HCl (Hydralazine 20 Mg/Ml Vial) 10 mg IV Q4H PRN PRN PRN Reason: sys >160 Last Admin: 07/19/20 06:27 Dose: 10 mg Documented by: Remdesivir 100 mg/ Sodium (Chloride) 250 mls @ 125 mls/hr IV DAILY [facility]; Protocol Stop: 07/21/20 11:59 Last Admin: 07/19/20 10:22 Dose: 125 mls/hr Documented by: Insulin Glargine (Insulin Glargine 100 Units/Ml Pen) 40 units SC DAILY@0800 [facility] Last Admin: 07/19/20 08:34 Dose: 40 u Documented by: Insulin Glargine (Insulin Glargine 100 Units/Ml Pen) 10 units SC [facility] Last Admin: 07/18/20 16:20 Dose: 10 u Documented by: Insulin Human Lispro (Insulin Lispro 100 Unit/Ml Insuln.Pen) 0 unit SC [facility]; Protocol Last Admin: 07/19/20 11:33 Dose: 5 u Documented by: Levothyroxine Sodium (Levothyroxine 50 Mcg Tablet) 50 mcg PO DAILY@0800 [facility] Last Admin: 07/19/20 08:33 Dose: 50 mcg Documented by: Oxycodone HCl (Oxycodone 5 Mg Tablet) 5 mg PO Q4H PRN PRN PRN Reason: Pain Score 4-5 Potassium Chloride (Potassium Chloride 20 Meq Tablet) [facility] Stop: 07/20/20 11:22 Last Admin: 07/19/20 08:33 Dose: 40 meq Documented by: Prochlorperazine Edisylate (Prochlorperazine 10 Mg/2 Ml Vial) 5 mg IV Q6H PRN PRN PRN Reason: NAUSEA/VOMITING Last Admin: 07/17/20 14:16 Dose: 5 mg Documented by: Ramipril (Ramipril 2.5 Mg Capsule) 5 mg PO DAILY@0800 [facility] Last Admin: 07/19/20 08:33 Dose: 5 mg Documented by: Sodium Chloride (0.9% Saline Lock 10 Ml Syringe) 10 - 40 ml IV UD PRN PRN Reason: SALINE FLUSH Last Admin: 07/19/20 10:22 Dose: 10 ml Documented by: Sodium Chloride (0.9% Saline Lock 10 Ml Syringe) 10 - 40 ml IV UD PRN PRN Reason: SALINE FLUSH Discharge Activity: May Not Drive Call your doctor if you observe: Fever of 101 or Higher, Coldness, Increased Pain, Numbness or Tingling, Inability to urinate, Inability to have a bowel movement, Shortness of breath, Dizziness, Fainting spells, Swelling in the ankles, Chest pain, Prolonged hiccoughing, Increased palpitations (irregular heartbeat), Calf discomfort, Uncontrolled pain Home Medications: Medications to take at Discharge ALPRAZolam [Xanax] 0.5 mg PO TID PRN PRN 07/16/20 Clopidogrel Bisulfate [Plavix] 75 mg PO DAILY 07/16/20 Dulaglutide [Trulicity] 0.75 mg SQ QWEEK 07/16/20 Ergocalciferol (Vitamin D2) [Vitamin D2] 50,000 unit PO QWEEK 07/16/20 Furosemide [Lasix] 40 mg PO DAILY 07/16/20 Gabapentin [Neurontin] 600 mg PO BIDCM 07/16/20 Glimepiride 4 mg PO DAILY 07/16/20 Hydrocodone/Acetaminophen [[place] 5-325 Tablet] 1 ea PO BID PRN PRN 07/16/20 Insulin Detemir [Levemir] 44 unit SQ DAILY 07/16/20 Levothyroxine Sodium [Synthroid] 50 mcg PO DAILY 07/16/20 Ondansetron HCl [Zofran] 4 mg PO Q6H PRN PRN 07/16/20 Apixaban [Eliquis] 2.5 mg PO BID #30 tab 07/19/20 Dexamethasone [Decadron] 6 mg PO DAILY@0800 #7 tab 07/19/20 Guaifenesin [Mucinex] 1,200 mg PO BID #14 tab.er.12h 07/19/20 Potassium Chloride [K-Dur] 20 meq PO DAILYCM #30 tab 07/19/20 Ramipril 5 mg PO DAILY #0 07/19/20 Following Prescriptions Were Given to Patient: Dexamethasone [Decadron] 6 mg PO DAILY@0800 #7 tab Transmission Status: Received by [address] Apixaban [Eliquis] 2.5 mg PO BID #30 tab Transmission Status: Received by [address] Potassium Chloride [K-Dur] 20 meq PO DAILYCM #30 tab Transmission Status: Received by [address] Guaifenesin [Mucinex] 1,200 mg PO BID #14 tab.er.12h Transmission Status: Received by [address] Primary Care Physician: Marion Roland DO [Primary Care Provider] - Please follow up with your Primary Care Physician in: In 2 weeks Medical Necessity - Tobacco Use Smoking Status: Never smoker Tobacco Use: Non-smoker, Secondhand Meaningful Use Info Meaningful Use Diagnoses (Choose all that apply): None applicable Inpatient E&M: [id number] [facility]
[2020-07-19 11:46] LABS: Bedside Glucose 339 mg/dL (70-110)
--- NOTE | 2020-07-20 16:07 | CASEMGMT ---
JUNI CM DC Phone Call DC Date: 07/19/2020 DC Disposition: Home DC Diagnosis: Covid 19 Attempted call to patient. No answer, and no messaging noted. Rangel RAYGOZAN RN ACM
== END 2020-07-19 16:45 | disposition home or self-care (01) | DRG 177 ==
LOC: ED 17:14 → MS2 17:19
PROVIDERS: Family Medicine; Internal Medicine Infectious Disease; Admitting Provider Student in an Organized Health Care Education/Training Program; Emergency Provider Emergency Medicine; PCP Family Medicine; Visit Provider Internal Medicine
DX: U07.1 COVID-19 (principal); J12.89 Other viral pneumonia; I25.10 Atherosclerotic heart disease of native coronary artery without angina pectoris; I10 Essential (primary) hypertension; E11.9 Type 2 diabetes mellitus without complications; E03.9 Hypothyroidism, unspecified; Z79.4 Long term (current) use of insulin; Z79.02 Long term (current) use of antithrombotics/antiplatelets; Z79.890 Hormone replacement therapy; Z79.899 Other long term (current) drug therapy
CPT/HCPCS: 36415; 71045; 71275; 80048; 80053; 81001; 82550; 82728; 82962; 83605; 83735; 84075; 84145; 84484; 85025; 85027; 85379; 85610; 85730; 86140; 87040; 87086; 87088; 87449; 87633; 93005; 94640; 97110; 97116; 97162; 97166; 97530; 97535; 99285; J7030; J7050; Q9967; A4216; J0696; J2405

== ENCOUNTER 2021-08-15 13:15 | Outpatient (RCR) | payer MEDICARE, SELFPAY ==
[2021-08-08 15:14] VITALS: BP 178/86; PULSE 79; RESP 16; TEMP 36.2; BMI 28.6
--- NOTE | 2021-08-08 16:50 | PCM.WC.HP ---
History of Present Illness Date of Service: 08/08/21 Chief Complaint: Diabetic foot ulcer left heel History of Wound: This is a 71-year-old white female who presents to the wound healing center today with complaint of diabetic foot ulcer to the left heel. She has a past medical history significant for type 2 diabetes mellitus (most recent A1c said to be 6), hypertension, hypothyroidism. The patient states that over the last 3 to 4 months she has had issues with a ulceration to her left heel. She has been following Dr. Shaver podiatry who has had patient in an offloading boot and patient said that she has been utilizing Silvadene as wound care covering with gauze. She states that her primary care did order an MRI of the heel as well which was said to be negative. She was placed on antibiotics at 1 point but states that she is no longer on these. She states that her wound does seem to be improving, however is improving slowly. She denies any purulent drainage or any systemic signs of infection such as fever or chills. She denies any other aggravating relieving factors. Past medical, family, and social history reviewed and not pertinent to the current visit and all other systems reviewed and negative with exception of those listed above. [facility] Medical History (Updated 08/08/21 @ 16:55 by Milad Saunders NP, BILLING COLLECTIONS SPECIALIST-C) Diabetic foot ulcer associated with type 2 diabetes mellitus Home Medications alprazolam 0.5 mg PO TID PRN PRN 07/16/20 [History Last Taken Unknown] clopidogrel 75 mg PO DAILY 07/16/20 [History Last Taken Unknown] dulaglutide 0.75 mg SQ QWEEK 07/16/20 [History Last Taken Unknown] ergocalciferol (vitamin D2) 50,000 unit PO QWEEK 07/16/20 [History Last Taken Unknown] furosemide 40 mg PO DAILY 07/16/20 [History Last Taken Unknown] gabapentin 600 mg PO BIDCM 07/16/20 [History Last Taken Unknown] glimepiride 4 mg PO DAILY 07/16/20 [History Last Taken Unknown] hydrocodone-acetaminophen 1 ea PO BID PRN PRN 07/16/20 [History Last Taken Unknown] insulin detemir U-100 28 unit SQ DAILY 07/16/20 [History Last Taken Unknown] levothyroxine 50 mcg PO DAILY 07/16/20 [History Last Taken Unknown] apixaban 2.5 mg PO BID #30 tab 07/19/20 [Rx Last Taken Unknown] potassium chloride 20 meq PO DAILYCM #30 tab 07/19/20 [Rx Last Taken Unknown] ramipril 5 mg PO DAILY #0 07/19/20 [Rx Last Taken Unknown] Allergy/AdvReac Type Severity Reaction Status Date / Time No Known Allergies Allergy Verified 08/08/21 15:28 Social History Smoking Status: Never smoker ROS ROS Narrative Negative x10 systems with exception of those listed above Vital Signs Vital Signs Vital Signs: 08/08/21 15:14 Temperature 97.1 F L Temperature Source Temporal Pulse Rate 79 Respiratory Rate 16 Blood Pressure 178/86 H Blood Pressure Mean 116 Blood Pressure Source Monitor Blood Pressure Position Sitting Blood Pressure Location Left Arm Oxygen Delivery Method Room Air Weight Weight: 172 lb Body Mass Index (BMI) 28.6 Physical Exam Const alert, oriented x3, no apparent distress, healthy appearing and well nourished General Appearance: cooperative Exam Limitations: no limitations HEENT normocephalic Head and Scalp: normal to inspection Mouth: oral and palatal mucosa normal Eyes General Eye: normal appearance of both eyes Resp normal respiratory effort, normal air movement and no use of accessory muscles Effort and Inspection: able to speak in complete sentences Auscultation: clear to auscultation bilaterally Cardio regular rate, regular rhythm, S1 normal heart sound, S2 normal heart sound, no murmurs and peripheral pulses 2+ throughout Palpation: normal PMI Rate: regular rate Heart Sounds: S1 normal and S2 normal GI normal to inspection, nondistended, normoactive bowel sounds, soft to palpation, non-tender and non-distended Palpation: soft Extremity normal to inspection and full ROM General Extremity: normal exam except as noted Skin Skin Narrative: Wound present to left heel with adherent slough and callused wound edges, no purulence or erythema or warmth noted at this time. Chronic venous changes present bilateral lower extremities and dorsal pedis pulses 2+ Neuro oriented x3 and moves all extremities Sensorium / Orientation: awake, alert, oriented to person, oriented to place and oriented to time Psych mental status grossly normal, thought process normal and denies hallucinations Appearance: grossly normal Attitude: calm Activity / Motor Behavior: appropriate eye contact Speech: normal speech Thought Process: normal thought process Thought Content: normal thought content Attention / Concentration: attention grossly intact Insight: insight good Judgement: judgement good Debridement Note Debridement Note Wound debrided: Left heel DFU Santos 2 Laterality: Left Type of Debridement: Excisional debridement Anesthesia Used: 5% Lidocaine Gel Depth: in the subcutaneous layer Percentage of wound debrided: 100 Instrument Used: 3mm curette Tissue Removed: Slough and devitalized tissue Severity: Fat Layer Exposed Amount of bleeding with debridement: Mild Bleeding Controlled with: Pressure Patient tolerated procedure: Patient tolerated procedure well Post-Debridement Measurements and Additional Note: Post-Debridement Measurements/Treatment - Nurse 1 - General Ulcer Assessment Start: 08/08/21 15:14 Freq: Status: Active Protocol: MAYO Activity Type Activity Date Activity User E-Sign Co-Sign Detail Recorded Client Recorded Date Recorded By Document 08/08/21 15:14 [facility] [id number] 08/08/21 15:24 [facility] 08/08/21 15:14 - Today's Visit Information Type of service Initial Visit Arrival Mode Ambulatory Transfer Assistance None Accompanied by SON Patient Identification Verified (Name & Yes ) Patient Requires Transmission-Based No Precautions Finger Stick Blood Sugar(mg/dl) (if 122 indicated): Blood Sugar Stated by Patient Height and Weight Height 5 ft 5 in Weight 172 lb Weight in Pounds 172.0 lbs Weight Measurement Method Stated by Patient Body Mass Index (BMI) 28.6 BMI Classification Overweight BSA - Yumiko 1.86 Vital Signs Temperature (97.8 F-99.1 F) 97.1 F L Temperature Source Temporal Pulse Rate (60-100) 79 Pulse Location Monitor Respiratory Rate (12-18) 16 Respiratory rate source Observation Oxygen Delivery Method Room Air Blood Pressure (90/60-120/80) 178/86 H Blood Pressure Mean 116 Source Monitor Position Sitting Blood Pressure Location Left Arm History Since Last Visit- (Skip if this is Patient's initial visit) Left Footwear Diabetic Shoe Right Footwear Diabetic Shoe Lower Extremity Assessment/ Foot Assessment/ Toe Nail Assessment Right -Posterior Tibial Palpable No -Posterior Tibial Doppler Monophasic -Dorsalis Pedis Palpable No -Dorsalis Pedis Doppler Monophasic -Extremity Color Pale -Hair Growth on Legs Yes -Hair Growth on Toes No -Temperature of Extremity Warm -Other Deformity Yes -Prior Foot Ulcer No -Charcot Joint No -Prior Amputation No -Thick Yes -Discolored Yes -Deformed Yes Left -Posterior Tibial Palpable No -Posterior Tibial Doppler Monophasic -Dorsalis Pedis Palpable No -Dorsalis Pedis Doppler Monophasic -Extremity Color Pale -Hair Growth on Legs Yes -Hair Growth on Toes No -Temperature of Extremity Warm -Other Deformity Yes -Prior Amputation Yes -Thick Yes -Discolored Yes -Deformed Yes -Improper Length & Hygeine No Neuropathy Assessment Feet - Top Side and Bottom <Entered> (a) Communication Assessment Preferred language [place] Quality Compliance Manager Required No Able to Read Yes Able to Write Yes Communication Tools None Right Hearing Abillity Normal Left Hearing Abillity Normal Visual Assistive Devices Glasses Teaching Assessment Preferences Verbal,Written, Audio/Visual, Demonstration Barriers to Learning None Readiness To Learn Excellent Willingness to Engage in Self Management High Activies Readiness to Engage in Self Management High Activities Anxiety Level Calm Cooperation Cooperative Perception Coherent Interest in Health Problem Asks Questions Education Importance Acknowledges Need Does Patient Smoke tobacco or other No substances Smoking Status Never smoker Is Patient Diabetic Yes Functional Assessment Recent Decline in Ability to Perform Ambulation 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/Faith Needs that may affect No Treatment Plan Teaching: Wound Center *Welcome to the Wound Center -Person Taught Patient,Family -Teaching Method Discussion -Response to teaching Verbalize understanding Welcome to the Wound Care Center [place] (a) 1 - + 2 - - 3 - + 4 - - 5 - - - Nurse 1 - General Ulcer Measurement Start: 08/08/21 15:14 Freq: Status: Active Protocol: Activity Type Activity Date Activity User E-Sign Co-Sign Detail Recorded Client Recorded Date Recorded By Document 08/08/21 15:14 [facility] [id number] 08/08/21 15:24 [facility] 08/08/21 15:14 Wound Center Nurse 1 #1- L HEEL -Combined with other wound No -Current Size (cm) - Length 1 -Current Size (cm) - Width 2 -Current Size (cm) - Depth 0.1 -Total Square Cm 2 -Date of Last Picture (Recall this 08/08/21 field) -Photo Taken Yes -Epithelialization None Present -Tunneling No -Undermining/Tunneling No -Circular Undermining No -Exudate Amt Medium -Exudate Type Serosanguineous -Wound Margin Distinct, Outline Attached -Granulation Amt Medium (34-66%) -Granulation Quality Red -Slough/Fibrin Yes -Necrosis Amt Medium (34-66%) -Necrotic Tissue Type Adherent Slough -Texture (Mare-wound Skin Appearance) Assessed,Callus ,Scarring -Moisture (Mare-wound Skin Appearance) Assessed,Dry/ Scaly -Color (Mare-wound Skin Appearance) Assessed, Erythema -Temperature (Mare-wound Skin No Abnormality Appearance) (Pt Warm) -Tenderness on Palpation (Mare-wound No Skin Appearance) -Ulcer Cleansing Rinsed/ Irrigated with Saline -Foul Odor after Cleansing Yes, Due to Product Use -Anesthetic Used 5% Lidocaine Gel Lower Limb Edema Present Yes Right Calf (cm) 35 Right Ankle (cm) 24.5 Left Calf (cm) 34.2 Left Ankle (cm) 27 WC - Nurse 2 - General Ulcer CM Notes Start: 08/08/21 15:14 Freq: Status: Active Protocol: Activity Type Activity Date Activity User E-Sign Co-Sign Detail Recorded Client Recorded Date Recorded By Document 08/08/21 15:54 [id number] 08/08/21 16:02 08/08/21 15:54 Wound Center Nurse 2 #1- L HEEL -Time 15:57 -Correct Patient Yes -Correct Side, Site, Position Yes -Correct Procedure Yes -Procedure Performed Yes -Type of Procedure Debridement -Clinical Debridement Subcutaneous -Tissue Removed Subcutaneous -Post Debridement (cm) - Length 1.3 -Post Debridement (cm) - Width 2.6 -Post Debridement (cm) - Depth 0.1 -Total Square (Post) (cm) 3.38 -Area of Debridement (cm) - Length 1.3 -Area of Debridement (cm) - Width 2.6 -Total Square (Area) (cm) 3.38 -Tunneling No -Undermining/Tunneling No -Circular Undermining No -Wound/Ulcer Outcome Not Healed -Ulcer Cleansing Rinsed/ Irrigated with Saline -Foul Odor after Cleansing No -Bioengineered Tissue No -Bleeding Controlled with Pressure -Offloading Yes -Type of Offloading Surgical Shoe -Treatment Response Procedure Tolerated Well -Debridement - Subq, 1st 20sq cm Yes Pain Scale: 0-10 Numeric Is Patient Pain Free? 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 Yes WC - Visit Discharge Discharge Condition Stable Ambulatory Status Ambulatory Transportation Private Auto Accompanied by SON Charges/Coding Visit Charges Office Visits / Consults: 21300 OV L4 Est Procedures Integumentary 111xxx-113xx: [id number] Tasneem subq tissue 20 sq cm/< Assessment/Plan Assessment/Plan (1) Diabetic foot ulcer associated with type 2 diabetes mellitus: CODE(S): E11.621 - Type 2 diabetes mellitus with foot ulcer; L97.509 - Non-pressure chronic ulcer of other part of unspecified foot with unspecified severity QUALIFIERS: Diabetic foot ulcer location: heel Laterality: left Non-pressure ulcer stage: with fat layer exposed Qualified Code(s): E11.621 - Type 2 diabetes mellitus with foot ulcer; L97.422 - Non-pressure chronic ulcer of left heel and midfoot with fat layer exposed (2) Hypertension: CODE(S): I10 - Essential (primary) hypertension (3) Hypothyroidism: CODE(S): E03.9 - Hypothyroidism, unspecified (4) Debility: CODE(S): R53.81 - Other malaise PLAN: Debridement performed today in clinic as annotated above. Aquacel silver covered with gauze applied. At home wound-care instructions: Aquacel silver cover with gauze Change dressing once daily or more frequently as needed due to contamination. Wash wounds daily with antibacterial soap and water, rinse and dry thoroughly before each dressing change. Compression: Held Off-loading: The patient was instructed to avoid pressure and friction on the affected areas. Reposition every 2 hours at minimum. Avoid prolonged standing and/or dangling of legs. When seated, feet should be elevated at chest level. Frequent ambulation is encouraged. Did instruct patient to utilize her offloading boot as much as possible and to bring with her to her next visit Diet: Patient encouraged to increase protein intake while taking caution to avoid high carbohydrate and/or sugar intake. Patient is a non-smoker Labs/cultures/imaging: Cultures ordered and collected today. Routine baseline lab work held will reevaluate if no improvement. Request prior imaging records including MRI and prior podiatry records. Vascular studies held. Follow-up: Return to clinic in 1 week for re-evaluation. Return sooner or report to the emergency room should symptoms worsen, or new symptoms arise. This note was generated with [employer] dictation software. It may contain incorrect words, spelling, and punctuation that were not noted in checking the note before signing. I have spent 35 minutes today reviewing labs, records, and history. Time includes coordinating care, interpretation of tests, and counseling the patient/family. This also includes time I spent with the patient for exam, treatment plan, and education as well as documenting clinical information in the electronic health record.
[2021-08-15 12:58] VITALS: BP 176/72; PULSE 79; RESP 16; TEMP 37.1; BMI 28.6
--- NOTE | 2021-08-15 20:34 | PN.PCM_ITS ---
History of Present Illness Date of Service: 08/15/21 Chief Complaint: Diabetic foot ulcer left heel History of Wound: This is a 71-year-old white female who presents to the wound healing center today with complaint of diabetic foot ulcer to the left heel. She has a past medical history significant for type 2 diabetes mellitus (most recent A1c said to be 6), hypertension, hypothyroidism. The patient states that over the last 3 to 4 months she has had issues with a ulceration to her left heel. She has been following Dr. Shaver podiatry who has had patient in an offloading boot and patient said that she has been utilizing Silvadene as wound care covering with gauze. She states that her primary care did order an MRI of the heel as well which was said to be negative. She was placed on antibiotics at 1 point but states that she is no longer on these. She states that her wound does seem to be improving, however is improving slowly. She denies any purulent drainage or any systemic signs of infection such as fever or chills. She denies any other aggravating relieving factors. Past medical, family, and social history reviewed and not pertinent to the current visit and all other systems reviewed and negative with exception of those listed above. Progress of Wound: 08/15/2021?wound is stable, cultures were reviewed and negative, no new concerns. Objective Data Objective Data Vital Signs: Vital Signs Temp Pulse Resp BP 98.7 F 79 16 176/72 H 08/15/21 12:58 08/15/21 12:58 08/15/21 12:58 08/15/21 12:58 Oxygen Delivery Method Room Air Weight: 172 lb Body Mass Index (BMI) 28.6 Lab / Micro Data Micro: Microbiology 08/08/21 15:55 Wound Abcess - Heel, Left Gram Stain - Final 08/08/21 15:55 Wound Abcess - Heel, Left Wound Culture - Final Staphylococcus epidermidis 08/08/21 15:55 Wound Abcess - Heel, Left Anaerobic Culture - Final No anaerobic bacteria isolated. Charges/Coding Procedures Integumentary 111xxx-113xx: [id number] Tasneem subq tissue 20 sq cm/< Physical Exam Const alert, oriented x3, no apparent distress, healthy appearing and well nourished General Appearance: cooperative Exam Limitations: no limitations HEENT normocephalic Head and Scalp: normal to inspection Mouth: oral and palatal mucosa normal Eyes General Eye: normal appearance of both eyes Resp normal respiratory effort, normal air movement and no use of accessory muscles Effort and Inspection: able to speak in complete sentences Auscultation: clear to auscultation bilaterally Cardio regular rate, regular rhythm, S1 normal heart sound, S2 normal heart sound, no murmurs and peripheral pulses 2+ throughout Palpation: normal PMI Rate: regular rate Heart Sounds: S1 normal and S2 normal GI normal to inspection, nondistended, normoactive bowel sounds, soft to palpation, non-tender and non-distended Palpation: soft Extremity normal to inspection and full ROM General Extremity: normal exam except as noted Skin Skin Narrative: Wound present to left heel with adherent slough and callused wound edges, no purulence or erythema or warmth noted at this time. Chronic venous changes present bilateral lower extremities and dorsal pedis pulses 2+ Neuro oriented x3 and moves all extremities Sensorium / Orientation: awake, alert, oriented to person, oriented to place and oriented to time Psych mental status grossly normal, thought process normal and denies hallucinations Appearance: grossly normal Attitude: calm Activity / Motor Behavior: appropriate eye contact Speech: normal speech Thought Process: normal thought process Thought Content: normal thought content Attention / Concentration: attention grossly intact Insight: insight good Judgement: judgement good Debridement Note Debridement Note Wound debrided: Left heel DFU Santos 2 Laterality: Left Type of Debridement: Excisional debridement Anesthesia Used: 5% Lidocaine Gel Depth: in the subcutaneous layer Percentage of wound debrided: 100 Instrument Used: 5mm curette Tissue Removed: Slough and devitalized tissue Severity: Fat Layer Exposed Amount of bleeding with debridement: Mild Bleeding Controlled with: Pressure Patient tolerated procedure: Patient tolerated procedure well Post-Debridement Measurements and Additional Note: Post-Debridement Measurements/Treatment - Nurse 1 - General Ulcer Assessment Start: 08/08/21 15:14 Freq: Status: Active Protocol: MAYO Activity Type Activity Date Activity User E-Sign Co-Sign Detail Recorded Client Recorded Date Recorded By Document 08/08/21 15:14 [facility] [id number] 08/08/21 15:24 [facility] Document 08/15/21 12:58 ML [id number] 08/15/21 13:06 ML 08/08/21 08/15/21 15:14 12:58 WC - Today's Visit Information Type of service Initial Visit Follow-up Visit (Physician/EXPERIMENTAL TECHNICIAN ) Arrival Mode Ambulatory Ambulatory Transfer Assistance None None Accompanied by SON Patient Identification Verified (Name & Yes Yes ) Patient Requires Transmission-Based No No Precautions Safety Precautions NA Finger Stick Blood Sugar(mg/dl) (if 122 indicated): Blood Sugar Stated by Patient Height and Weight Height 5 ft 5 in Weight 172 lb Weight in Pounds 172.0 lbs Weight Measurement Method Stated by Patient Body Mass Index (BMI) 28.6 28.6 BMI Classification Overweight Overweight BSA - Yumiko 1.86 Vital Signs Temperature (97.8 F-99.1 F) 97.1 F L 98.7 F Temperature Source Temporal Temporal Pulse Rate (60-100) 79 79 Pulse Location Monitor Monitor Respiratory Rate (12-18) 16 16 Respiratory rate source Observation Observation Oxygen Delivery Method Room Air Blood Pressure (90/60-120/80) 178/86 H 176/72 H Blood Pressure Mean (mm Hg) 116 106 Source Monitor Monitor Position Sitting Sitting Blood Pressure Location Left Arm Left Arm Have you changed medications since your No last visit? Any new allergies or adverse reactions No Had a fall/change in ADL's that may No increase risk of falls Signs or symptoms of abuse and/or No neglect since last visit Have you been in the hospital since your No last visit? Has dressing in place as prescribed Yes Has compression in place as prescribed N/A Has offloadiing in place as prescribed N/A Experienced any changes in pain level or No management History Since Last Visit- (Skip if this is Patient's initial visit) Left Footwear Diabetic Shoe Regular Shoe Right Footwear Diabetic Shoe Regular Shoe Pain Scale: 0-10 Numeric Is Patient Pain Free? No Lower Extremity Assessment/ Foot Assessment/ Toe Nail Assessment Right -Posterior Tibial Palpable No -Posterior Tibial Doppler Monophasic -Dorsalis Pedis Palpable No -Dorsalis Pedis Doppler Monophasic -Extremity Color Pale -Hair Growth on Legs Yes -Hair Growth on Toes No -Temperature of Extremity Warm -Other Deformity Yes -Prior Foot Ulcer No -Charcot Joint No -Prior Amputation No -Thick Yes -Discolored Yes -Deformed Yes Left -Posterior Tibial Palpable No -Posterior Tibial Doppler Monophasic -Dorsalis Pedis Palpable No -Dorsalis Pedis Doppler Monophasic -Extremity Color Pale -Hair Growth on Legs Yes -Hair Growth on Toes No -Temperature of Extremity Warm -Other Deformity Yes -Prior Amputation Yes -Thick Yes -Discolored Yes -Deformed Yes -Improper Length & Hygeine No Neuropathy Assessment Feet - Top Side and Bottom <Entered> (a) Communication Assessment Preferred language Niuean 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 No Able to Read Yes Able to Write Yes Communication Tools None Right Hearing Abillity Normal Left Hearing Abillity Normal Visual Assistive Devices Glasses Teaching Assessment Preferences Verbal,Written, Audio/Visual, Demonstration Barriers to Learning None Readiness To Learn Excellent Willingness to Engage in Self Management High Activies Readiness to Engage in Self Management High Activities Anxiety Level Calm Cooperation Cooperative Perception Coherent Interest in Health Problem Asks Questions Education Importance Acknowledges Need Does Patient Smoke tobacco or other No substances Smoking Status Never smoker Is Patient Diabetic Yes Functional Assessment Recent Decline in Ability to Perform Ambulation Culture/Christian/Dormitory Keeper Cultural/Christian Needs that may affect No Treatment Plan Teaching: Wound Center *Welcome to the Wound Center -Person Taught Patient,Family -Teaching Method Discussion -Response to teaching Verbalize understanding Welcome to the Wound Care Center Niuean (a) 1 - + 2 - - 3 - + 4 - - 5 - - - Nurse 1 - General Ulcer Measurement Start: 08/08/21 15:14 Freq: Status: Active Protocol: Activity Type Activity Date Activity User E-Sign Co-Sign Detail Recorded Client Recorded Date Recorded By Document 08/08/21 15:14 [facility] [id number] 08/08/21 15:24 [facility] Document 08/15/21 12:58 ML [id number] 08/15/21 13:06 ML 08/08/21 08/15/21 15:14 12:58 Wound Center Nurse 1 #1- L HEEL -Combined with other wound No -Current Size (cm) - Length 1 2.3 -Current Size (cm) - Width 2 1 -Current Size (cm) - Depth 0.1 0.3 -Total Square Cm 2 2.3 -Date of Last Picture (Recall this 08/08/21 field) -Photo Taken Yes -Epithelialization None Present -Tunneling No -Undermining/Tunneling No -Circular Undermining No -Exudate Amt Medium Medium -Exudate Type Serosanguineous Serosanguineous -Wound Margin Distinct, Distinct, Outline Outline Attached Attached -Granulation Amt Medium (34-66%) Medium (34-66%) -Granulation Quality Red -Slough/Fibrin Yes Yes -Necrosis Amt Medium (34-66%) Medium (34-66%) -Necrotic Tissue Type Adherent Slough Adherent Slough -Texture (Mare-wound Skin Appearance) Assessed,Callus Assessed ,Scarring -Moisture (Mare-wound Skin Appearance) Assessed,Dry/ Assessed Scaly -Color (Mare-wound Skin Appearance) Assessed, Assessed Erythema -Temperature (Mare-wound Skin No Abnormality No Abnormality Appearance) (Pt Warm) (Pt Warm) -Tenderness on Palpation (Mare-wound No No Skin Appearance) -Ulcer Cleansing Rinsed/ Soap and Water Irrigated with Saline -Foul Odor after Cleansing Yes, Due to No Product Use -Anesthetic Used 5% Lidocaine 5% Lidocaine Gel Gel Lower Limb Edema Present Yes Right Calf (cm) 35 Right Ankle (cm) 24.5 Left Calf (cm) 34.2 Left Ankle (cm) 27 WC - Nurse 2 - General Ulcer CM Notes Start: 08/08/21 15:14 Freq: Status: Active Protocol: Activity Type Activity Date Activity User E-Sign Co-Sign Detail Recorded Client Recorded Date Recorded By Document 08/08/21 15:54 [id number] 08/08/21 16:02 Document 08/15/21 13:28 MW [id number] 08/15/21 13:36 MW 08/08/21 08/15/21 15:54 13:28 Wound Center Nurse 2 #1- L HEEL -Time 15:57 13:29 -Correct Patient Yes Yes -Correct Side, Site, Position Yes Yes -Correct Procedure Yes Yes -Procedure Performed Yes Yes -Type of Procedure Debridement Debridement -Clinical Debridement Subcutaneous Subcutaneous -Tissue Removed Subcutaneous Subcutaneous -Post Debridement (cm) - Length 1.3 1.2 -Post Debridement (cm) - Width 2.6 2.2 -Post Debridement (cm) - Depth 0.1 0.1 -Total Square (Post) (cm) 3.38 2.64 -Area of Debridement (cm) - Length 1.3 1.2 -Area of Debridement (cm) - Width 2.6 2.2 -Total Square (Area) (cm) 3.38 2.64 -Tunneling No No -Undermining/Tunneling No No -Circular Undermining No No -Wound/Ulcer Outcome Not Healed Not Healed -Ulcer Cleansing Rinsed/ Rinsed/ Irrigated with Irrigated with Saline Saline -Foul Odor after Cleansing No No -Bioengineered Tissue No No -Bleeding Controlled with Pressure Pressure -Offloading Yes No -Type of Offloading Surgical Shoe -Treatment Response Procedure Procedure Tolerated Well Tolerated Well -Debridement - Subq, 1st 20sq cm Yes Yes Pain Scale: 0-10 Numeric Is Patient Pain Free? Yes Yes - Nurse 3 - General Ulcer D/C NN Start: 08/08/21 15:14 Freq: Status: Active Protocol: Activity Type Activity Date Activity User E-Sign Co-Sign Detail Recorded Client Recorded Date Recorded By Document 08/08/21 16:07 [facility] [id number] 08/08/21 16:08 [facility] Document 08/15/21 13:49 [id number] 08/15/21 13:50 08/08/21 08/15/21 16:07 13:49 Wound Care Nurse 3 #1- L HEEL -Ulcer Cleansing Rinsed/ Rinsed/ Irrigated with Irrigated with Saline Saline -Foul Odor after Cleansing No No -Primary Dressing Applied Aquacel AG 4x4 NonAdherent Contact Layer, Promogran -Other Dressing DRSG PER [place] MATRIX REPAIRER NURSE'S HAT WITH ABD PAD -Primary Dressing Covered/Secured with Dry Gauze & Dry Gauze & Roll Gauze, Roll Gauze, Secured with Secured with Tape,Other Tape -Other Covering HEEL HAT -Aquacel AG 4x4 1 -Promogran 1 Treatment Response Procedure Tolerated Well Pain Scale: 0-10 Numeric Is Patient Pain Free? Yes Yes - Visit Discharge Discharge Condition Stable Stable Ambulatory Status Ambulatory Ambulatory Transportation Private Auto Private Auto Accompanied by SON SON Medication Reconcilliation completed & Yes provided to patient/care provider Clinical Summary of Care Provided Yes Assessment/Plan Assessment/Plan (1) Diabetic foot ulcer associated with type 2 diabetes mellitus: CODE(S): E11.621 - Type 2 diabetes mellitus with foot ulcer; L97.509 - Non-pressure chronic ulcer of other part of unspecified foot with unspecified severity QUALIFIERS: Diabetic foot ulcer location: heel Laterality: left Non-pressure ulcer stage: with fat layer exposed Qualified Code(s): E11.621 - Type 2 diabetes mellitus with foot ulcer; L97.422 - Non-pressure chronic ulcer of left heel and midfoot with fat layer exposed (2) Hypertension: CODE(S): I10 - Essential (primary) hypertension (3) Hypothyroidism: CODE(S): E03.9 - Hypothyroidism, unspecified (4) Debility: CODE(S): R53.81 - Other malaise PLAN: Debridement performed today in clinic as annotated above. Aquacel silver covered with gauze applied. At home wound-care instructions: Promogran cover with gauze Change dressing once daily or more frequently as needed due to contamination. Wash wounds daily with antibacterial soap and water, rinse and dry thoroughly before each dressing change. Compression: Held Off-loading: The patient was instructed to avoid pressure and friction on the affected areas. Reposition every 2 hours at minimum. Avoid prolonged standing and/or dangling of legs. When seated, feet should be elevated at chest level. Frequent ambulation is encouraged. Did instruct patient to utilize her offloading boot as much as possible and to bring with her to her next visit Diet: Patient encouraged to increase protein intake while taking caution to avoid high carbohydrate and/or sugar intake. Patient is a non-smoker Labs/cultures/imaging: Cultures ordered and collected previously negative. Routine baseline lab work held will reevaluate if no improvement. Request prior imaging records including MRI and prior podiatry records. MRI was reviewed and was negative for osteomyelitis. Vascular studies held. Given the delayed wound healing and fact that she failed standard wound care with her being seen by podiatry for over a month and now at the wound healing center for 2 weeks, patient would benefit with an advanced skin substitute. We will start application process. Follow-up: Return to clinic in 1 week for re-evaluation. Return sooner or report to the emergency room should symptoms worsen, or new symptoms arise. This note was generated with [employer] dictation software. It may contain incorrect words, spelling, and punctuation that were not noted in checking the note before signing. I have spent 35 minutes today reviewing labs, records, and history. Time includes coordinating care, interpretation of tests, and counseling the patient/family. This also includes time I spent with the patient for exam, treatment plan, and education as well as documenting clinical information in the electronic health record.
== END 2021-08-30 23:59 ==
LOC: WC 13:15
PROVIDERS: PCP Family Medicine; Visit Provider Nurse Practitioner Family
DX: E11.621 Type 2 diabetes mellitus with foot ulcer (principal); L97.422 Non-pressure chronic ulcer of left heel and midfoot with fat layer exposed; I10 Essential (primary) hypertension; E03.9 Hypothyroidism, unspecified; Z79.899 Other long term (current) drug therapy; Z79.02 Long term (current) use of antithrombotics/antiplatelets; Z79.890 Hormone replacement therapy; Z79.01 Long term (current) use of anticoagulants; Z79.4 Long term (current) use of insulin
CPT/HCPCS: 11042; 87070; 87075; 87077; 87186; 87205; 99213; G0463

== ENCOUNTER 2021-09-26 14:00 | Outpatient (RCR) | payer MEDICARE, SELFPAY ==
[2021-08-31 00:06] VITALS: BP 176/72; PULSE 79; RESP 16; TEMP 37.1; BMI 28.6
[2021-09-05 13:31] VITALS: BP 174/60; PULSE 81; RESP 16; TEMP 36.2; BMI 28.6
--- NOTE | 2021-09-05 20:03 | PCM.WC.PN ---
History of Present Illness Date of Service: 09/05/21 Chief Complaint: Diabetic foot ulcer left heel History of Wound: This is a 71-year-old white female who presents to the wound healing center today with complaint of diabetic foot ulcer to the left heel. She has a past medical history significant for type 2 diabetes mellitus (most recent A1c said to be 6), hypertension, hypothyroidism. The patient states that over the last 3 to 4 months she has had issues with a ulceration to her left heel. She has been following Dr. Shaver podiatry who has had patient in an offloading boot and patient said that she has been utilizing Silvadene as wound care covering with gauze. She states that her primary care did order an MRI of the heel as well which was said to be negative. She was placed on antibiotics at 1 point but states that she is no longer on these. She states that her wound does seem to be improving, however is improving slowly. She denies any purulent drainage or any systemic signs of infection such as fever or chills. She denies any other aggravating relieving factors. Past medical, family, and social history reviewed and not pertinent to the current visit and all other systems reviewed and negative with exception of those listed above. Progress of Wound: 09/05/2021?wound is stable with very slow improvement, her insurance did approve her for purapply am, first application today of a 1.6 cm disc was utilized Objective Data Objective Data Vital Signs: Vital Signs Temp Pulse Resp BP 97.2 F L 81 16 174/60 H 09/05/21 13:31 09/05/21 13:31 09/05/21 13:31 09/05/21 13:31 Weight: 172 lb Body Mass Index (BMI) 28.6 Charges/Coding Procedures Integumentary 150xxx-152xx: 42009 Skin sub graft face/nk/hf/g Physical Exam Const alert, oriented x3, no apparent distress, healthy appearing and well nourished General Appearance: cooperative Exam Limitations: no limitations HEENT normocephalic Head and Scalp: normal to inspection Mouth: oral and palatal mucosa normal Eyes General Eye: normal appearance of both eyes Resp normal respiratory effort, normal air movement and no use of accessory muscles Effort and Inspection: able to speak in complete sentences Auscultation: clear to auscultation bilaterally Cardio regular rate, regular rhythm, S1 normal heart sound, S2 normal heart sound, no murmurs and peripheral pulses 2+ throughout Palpation: normal PMI Rate: regular rate Heart Sounds: S1 normal and S2 normal GI normal to inspection, nondistended, normoactive bowel sounds, soft to palpation, non-tender and non-distended Palpation: soft Extremity normal to inspection and full ROM General Extremity: normal exam except as noted Skin Skin Narrative: Wound present to left heel with adherent slough and callused wound edges, no purulence or erythema or warmth noted at this time. Chronic venous changes present bilateral lower extremities and dorsal pedis pulses 2+ Neuro oriented x3 and moves all extremities Sensorium / Orientation: awake, alert, oriented to person, oriented to place and oriented to time Psych mental status grossly normal, thought process normal and denies hallucinations Appearance: grossly normal Attitude: calm Activity / Motor Behavior: appropriate eye contact Speech: normal speech Thought Process: normal thought process Thought Content: normal thought content Attention / Concentration: attention grossly intact Insight: insight good Judgement: judgement good Debridement Note Debridement Note Wound debrided: DFU left heel Laterality: Left Type of Debridement: Excisional debridement Anesthesia Used: 5% Lidocaine Gel Depth: Down to and including healthy tissue and in the subcutaneous layer Percentage of wound debrided: 100 Instrument Used: 5mm curette Tissue Removed: Slough and devitalized tissue Severity: Fat Layer Exposed Amount of bleeding with debridement: Mild Bleeding Controlled with: Pressure Patient tolerated procedure: Patient tolerated procedure well Post-Debridement Measurements and Additional Note: Post-Debridement Measurements/Treatment PALAK - Nurse 1 - General Ulcer Assessment Start: 09/05/21 13:31 Freq: Status: Active Protocol: MAYO Activity Type Activity Date Activity User E-Sign Co-Sign Detail Recorded Client Recorded Date Recorded By Document 09/05/21 13:31 ML [id number] 09/05/21 13:37 ML 09/05/21 13:31 - Today's Visit Information Type of service Follow-up Visit (Physician/STEEL FITTER ) Arrival Mode Ambulatory Transfer Assistance None Patient Identification Verified (Name & Yes ) Patient Requires Transmission-Based No Precautions Safety Precautions NA Height and Weight Body Mass Index (BMI) 28.6 BMI Classification Overweight Vital Signs Temperature (97.8 F-99.1 F) 97.2 F L Temperature Source Temporal Pulse Rate (60-100) 81 Pulse Location Monitor Respiratory Rate (12-18) 16 Respiratory rate source Observation Blood Pressure (90/60-120/80) 174/60 H Blood Pressure Mean (mm Hg) 98 Source Monitor Position Sitting Blood Pressure Location Left Arm History Since Last Visit- (Skip if this is Patient's initial visit) Have you changed medications since your No last visit? Any new allergies or adverse reactions No Had a fall/change in ADL's that may No increase risk of falls Signs or symptoms of abuse and/or No neglect since last visit Have you been in the hospital since your No last visit? Has dressing in place as prescribed Yes Has compression in place as prescribed No Has offloadiing in place as prescribed Yes Experienced any changes in pain level or No management Left Footwear Surgical Shoe with pressure relief insole Right Footwear Regular Shoe Pain Scale: 0-10 Numeric Is Patient Pain Free? Yes WC - Nurse 1 - General Ulcer Measurement Start: 09/05/21 13:31 Freq: Status: Active Protocol: Activity Type Activity Date Activity User E-Sign Co-Sign Detail Recorded Client Recorded Date Recorded By Document 09/05/21 13:31 ML [id number] 09/05/21 13:37 ML 09/05/21 13:31 Wound Center Nurse 1 #1- L HEEL -Current Size (cm) - Length 0.1 -Current Size (cm) - Width 0.1 -Current Size (cm) - Depth 0.1 -Total Square Cm 0.01 -Exudate Amt None Present -Wound Margin Distinct, Outline Attached -Granulation Amt Small (1-33%) -Necrosis Amt None Present (0 %) -Necrotic Tissue Type Adherent Slough -Texture (Mare-wound Skin Appearance) Assessed -Moisture (Mare-wound Skin Appearance) Assessed -Color (Mare-wound Skin Appearance) Assessed -Temperature (Mare-wound Skin No Abnormality Appearance) (Pt Warm) -Tenderness on Palpation (Mare-wound No Skin Appearance) -Ulcer Cleansing Rinsed/ Irrigated with Saline -Foul Odor after Cleansing No -Anesthetic Used 5% Lidocaine Gel WC - Nurse 2 - General Ulcer CM Notes Start: 09/05/21 13:31 Freq: Status: Active Protocol: Activity Type Activity Date Activity User E-Sign Co-Sign Detail Recorded Client Recorded Date Recorded By Document 09/05/21 13:45 MW [id number] 09/05/21 13:56 MW Edit Result 09/05/21 13:45 MW (1) [id number] 09/05/21 14:03 MW (1) #1- L HEEL - Bioengineered Tissue No => Yes - Type of Bioengineered Tissue => PuraPly AM - Expiration Date => 04/26/23 - Product Lot Number => [id number] - Percent Used => 100 - Lot number of Saline Used => [id number] - Apply Skin Sub - 1st 25 sq cm - Feet => 1 - PuraPly AM (per sq cm) => 2 09/05/21 13:45 Wound Center Nurse 2 -Time 13:46 -Correct Patient Yes -Correct Side, Site, Position Yes -Correct Procedure Yes -Procedure Performed Yes -Type of Procedure Debridement -Clinical Debridement Subcutaneous -Tissue Removed Subcutaneous -Post Debridement (cm) - Length 1.1 -Post Debridement (cm) - Width 1.9 -Post Debridement (cm) - Depth 0.1 -Total Square (Post) (cm) 2.09 -Area of Debridement (cm) - Length 1.1 -Area of Debridement (cm) - Width 1.9 -Total Square (Area) (cm) 2.09 -Tunneling No -Undermining/Tunneling No -Circular Undermining No -Wound/Ulcer Outcome Not Healed -Ulcer Cleansing Rinsed/ Irrigated with Saline -Foul Odor after Cleansing No -Bioengineered Tissue Yes -Type of Bioengineered Tissue PuraPly AM -Expiration Date 04/26/23 -Product Lot Number [id number] -Percent Used 100 -Lot number of Saline Used [id number] -Bleeding Controlled with Pressure -Offloading No -Treatment Response Procedure Tolerated Well -Debridement - Subq, 1st 20sq cm No -Apply Skin Sub - 1st 25 sq cm - Feet 1 -PuraPly AM (per sq cm) 2 Pain Scale: 0-10 Numeric Is Patient Pain Free? Yes WC - Nurse 3 - General Ulcer D/C NN Start: 09/05/21 13:31 Freq: Status: Active Protocol: Activity Type Activity Date Activity User E-Sign Co-Sign Detail Recorded Client Recorded Date Recorded By Document 09/05/21 14:07 VASILIY [id number] 09/05/21 14:07 VASILIY 09/05/21 14:07 Wound Care Nurse 3 #1- L HEEL -Ulcer Cleansing Rinsed/ Irrigated with Saline -Foul Odor after Cleansing No -Primary Dressing Covered/Secured with Dry Gauze & Roll Gauze, Secured with Tape -Other Covering nurses hat Pain Scale: 0-10 Numeric Is Patient Pain Free? Yes WC - Visit Discharge Discharge Condition Stable Ambulatory Status Ambulatory Transportation Private Auto Accompanied by son Medication Reconcilliation completed & Yes provided to patient/care provider Clinical Summary of Care Provided Yes Assessment/Plan Assessment/Plan (1) Diabetic foot ulcer associated with type 2 diabetes mellitus: CODE(S): E11.621 - Type 2 diabetes mellitus with foot ulcer; L97.509 - Non-pressure chronic ulcer of other part of unspecified foot with unspecified severity QUALIFIERS: Diabetic foot ulcer location: heel Laterality: left Non-pressure ulcer stage: with fat layer exposed Qualified Code(s): E11.621 - Type 2 diabetes mellitus with foot ulcer; L97.422 - Non-pressure chronic ulcer of left heel and midfoot with fat layer exposed (2) Hypertension: CODE(S): I10 - Essential (primary) hypertension (3) Hypothyroidism: CODE(S): E03.9 - Hypothyroidism, unspecified (4) Debility: CODE(S): R53.81 - Other malaise PLAN: Debridement performed today in clinic as annotated above. Purapply # 1 a 1.6 cm disc was applied after subcutaneous debridement, it was then covered with the wound veil and a thin layer of hydrogel, and secured with Steri-Strips, 100% of the product was used with 0% waste. Patient tolerated the procedure well. At home wound-care instructions: Leave the primary dressing in place for a week, may change the outer gauze dressing as needed. Compression: Held Off-loading: The patient was instructed to avoid pressure and friction on the affected areas. Reposition every 2 hours at minimum. Avoid prolonged standing and/or dangling of legs. When seated, feet should be elevated at chest level. Frequent ambulation is encouraged. Did instruct patient to utilize her offloading boot as much as possible and to bring with her to her next visit Diet: Patient encouraged to increase protein intake while taking caution to avoid high carbohydrate and/or sugar intake. Patient is a non-smoker Labs/cultures/imaging: Cultures ordered and collected previously negative. Routine baseline lab work held will reevaluate if no improvement. Request prior imaging records including MRI and prior podiatry records. MRI was reviewed and was negative for osteomyelitis. Vascular studies held. Given the delayed wound healing and fact that she failed standard wound care with her being seen by podiatry for over a month and now at the wound healing center for 4 weeks, patient would benefit with an advanced skin substitute. She was approved for [facility], [facility], and purapply a.m. Follow-up: Return to clinic in 1 week for re-evaluation. Return sooner or report to the emergency room should symptoms worsen, or new symptoms arise. This note was generated with [employer] dictation software. It may contain incorrect words, spelling, and punctuation that were not noted in checking the note before signing. I have spent 35 minutes today reviewing labs, records, and history. Time includes coordinating care, interpretation of tests, and counseling the patient/family. This also includes time I spent with the patient for exam, treatment plan, and education as well as documenting clinical information in the electronic health record.
[2021-09-12 14:42] VITALS: BP 170/73; PULSE 82; TEMP 36.2; BMI 28.6
--- NOTE | 2021-09-12 15:00 | WC ---
PuraPly/hydrogel/steri strips cover and apply nurses hat.
--- NOTE | 2021-09-12 16:55 | PN.PCM_ITS ---
History of Present Illness Date of Service: 09/12/21 Chief Complaint: Diabetic foot ulcer left heel History of Wound: This is a 71-year-old white female who presents to the wound healing center today with complaint of diabetic foot ulcer to the left heel. She has a past medical history significant for type 2 diabetes mellitus (most recent A1c said to be 6), hypertension, hypothyroidism. The patient states that over the last 3 to 4 months she has had issues with a ulceration to her left heel. She has been following Dr. Shaver podiatry who has had patient in an offloading boot and patient said that she has been utilizing Silvadene as wound care covering with gauze. She states that her primary care did order an MRI of the heel as well which was said to be negative. She was placed on antibiotics at 1 point but states that she is no longer on these. She states that her wound does seem to be improving, however is improving slowly. She denies any purulent drainage or any systemic signs of infection such as fever or chills. She denies any other aggravating relieving factors. Past medical, family, and social history reviewed and not pertinent to the current visit and all other systems reviewed and negative with exception of those listed above. Progress of Wound: 09/05/2021?wound is stable with very slow improvement, her insurance did approve her for purapply am, first application today of a 1.6 cm disc was utilized 09/12/2021?wound is improved, second application today of a 1.6 cm disc purapply am was utilized Objective Data Objective Data Vital Signs: Vital Signs Temp Pulse Resp BP 97.1 F L 82 16 170/73 H 09/12/21 14:42 09/12/21 14:42 09/05/21 13:31 09/12/21 14:42 Weight: 172 lb Body Mass Index (BMI) 28.6 Charges/Coding Procedures Integumentary 150xxx-152xx: [id number] Skin sub graft face/nk/hf/g Physical Exam Const alert, oriented x3, no apparent distress, healthy appearing and well nourished General Appearance: cooperative Exam Limitations: no limitations HEENT normocephalic Head and Scalp: normal to inspection Mouth: oral and palatal mucosa normal Eyes General Eye: normal appearance of both eyes Resp normal respiratory effort, normal air movement and no use of accessory muscles Effort and Inspection: able to speak in complete sentences Auscultation: clear to auscultation bilaterally Cardio regular rate, regular rhythm, S1 normal heart sound, S2 normal heart sound, no murmurs and peripheral pulses 2+ throughout Palpation: normal PMI Rate: regular rate Heart Sounds: S1 normal and S2 normal GI normal to inspection, nondistended, normoactive bowel sounds, soft to palpation, non-tender and non-distended Palpation: soft Extremity normal to inspection and full ROM General Extremity: normal exam except as noted Skin Skin Narrative: Wound present to left heel with adherent slough and callused wound edges, no purulence or erythema or warmth noted at this time. Chronic venous changes present bilateral lower extremities and dorsal pedis pulses 2+ Neuro oriented x3 and moves all extremities Sensorium / Orientation: awake, alert, oriented to person, oriented to place and oriented to time Psych mental status grossly normal, thought process normal and denies hallucinations Appearance: grossly normal Attitude: calm Activity / Motor Behavior: appropriate eye contact Speech: normal speech Thought Process: normal thought process Thought Content: normal thought content Attention / Concentration: attention grossly intact Insight: insight good Judgement: judgement good Debridement Note Debridement Note Wound debrided: Left DFU Laterality: Left Wound Grade/Stage: santos 2 Type of Debridement: Excisional debridement Anesthesia Used: 4% Lidocaine Solution and 5% Lidocaine Gel Depth: Down to and including healthy tissue and in the subcutaneous layer Percentage of wound debrided: 100 Instrument Used: 3mm curette and 5mm curette Tissue Removed: Slough and devitalized tissue Severity: Fat Layer Exposed Amount of bleeding with debridement: Mild Bleeding Controlled with: Pressure Patient tolerated procedure: Patient tolerated procedure well Post-Debridement Measurements and Additional Note: Post-Debridement Measurements/Treatment - Nurse 1 - General Ulcer Assessment Start: 09/05/21 13:31 Freq: Status: Active Protocol: MAYO Activity Type Activity Date Activity User E-Sign Co-Sign Detail Recorded Client Recorded Date Recorded By Document 09/05/21 13:31 ML [id number] 09/05/21 13:37 ML Document 09/12/21 14:42 AK [id number] 09/12/21 14:44 AK 09/05/21 09/12/21 13:31 14:42 - Today's Visit Information Type of service Follow-up Visit Follow-up Visit (Physician/GATE TENDER (Physician/GATE TENDER ) ) Arrival Mode Ambulatory Ambulatory Transfer Assistance None Patient Identification Verified (Name & Yes Yes ) Patient Requires Transmission-Based No No Precautions Safety Precautions NA NA Height and Weight Body Mass Index (BMI) 28.6 28.6 BMI Classification Overweight Overweight Vital Signs Temperature (97.8 F-99.1 F) 97.2 F L 97.1 F L Temperature Source Temporal Temporal Pulse Rate (60-100) 81 82 Pulse Location Monitor Monitor Respiratory Rate (12-18) 16 Respiratory rate source Observation Blood Pressure (90/60-120/80) 174/60 H 170/73 H Blood Pressure Mean (mm Hg) 98 105 Source Monitor Monitor Position Sitting Blood Pressure Location Left Arm History Since Last Visit- (Skip if this is Patient's initial visit) Have you changed medications since your No No last visit? Any new allergies or adverse reactions No No Had a fall/change in ADL's that may No No increase risk of falls Signs or symptoms of abuse and/or No No neglect since last visit Have you been in the hospital since your No No last visit? Has dressing in place as prescribed Yes Yes Has compression in place as prescribed No N/A Has offloadiing in place as prescribed Yes N/A Experienced any changes in pain level or No No management Left Footwear Surgical Shoe Regular Shoe with pressure relief insole Right Footwear Regular Shoe Regular Shoe Pain Scale: 0-10 Numeric Is Patient Pain Free? Yes Yes WC - Nurse 1 - General Ulcer Measurement Start: 09/05/21 13:31 Freq: Status: Active Protocol: Activity Type Activity Date Activity User E-Sign Co-Sign Detail Recorded Client Recorded Date Recorded By Document 09/05/21 13:31 ML [id number] 09/05/21 13:37 ML Document 09/12/21 14:42 AK [id number] 09/12/21 14:44 AK 09/05/21 09/12/21 13:31 14:42 Wound Center Nurse 1 #1- L HEEL -Combined with other wound No -Current Size (cm) - Length 0.1 0.8 -Current Size (cm) - Width 0.1 1 -Current Size (cm) - Depth 0.1 0.1 -Total Square Cm 0.01 0.8 -Photo Taken No -Epithelialization None Present -Tunneling No -Undermining/Tunneling No -Circular Undermining No -Classification - Santos Grading ( Grade 2 Diabetic Ulcer) -Exudate Amt None Present Medium -Exudate Type Serosanguineous -Wound Margin Distinct, Distinct, Outline Outline Attached Attached -Granulation Amt Small (1-33%) None Present (0 %) -Granulation Quality N/A -Slough/Fibrin Yes -Necrosis Amt None Present (0 Medium (34-66%) %) -Necrotic Tissue Type Adherent Slough Adherent Slough -Structure Exposed N/A -Texture (Mare-wound Skin Appearance) Assessed No Abnormality, Assessed -Moisture (Mare-wound Skin Appearance) Assessed Assessed,Dry/ Scaly -Color (Mare-wound Skin Appearance) Assessed No Abnormality, Assessed -Temperature (Mare-wound Skin No Abnormality No Abnormality Appearance) (Pt Warm) (Pt Warm) -Tenderness on Palpation (Mare-wound No No Skin Appearance) -Ulcer Cleansing Rinsed/ Rinsed/ Irrigated with Irrigated with Saline Saline -Foul Odor after Cleansing No No -Anesthetic Used 5% Lidocaine 4% Lidocaine Gel Solution WC - Nurse 2 - General Ulcer CM Notes Start: 09/05/21 13:31 Freq: Status: Active Protocol: Activity Type Activity Date Activity User E-Sign Co-Sign Detail Recorded Client Recorded Date Recorded By Document 09/05/21 13:45 MW [id number] 09/05/21 13:56 MW Edit Result 09/05/21 13:45 MW (1) [id number] 09/05/21 14:03 MW Document 09/12/21 14:45 MW [id number] 09/12/21 14:54 MW (1) #1- L HEEL - Bioengineered Tissue No => Yes - Type of Bioengineered Tissue => PuraPly AM - Expiration Date => 04/26/23 - Product Lot Number => [id number] - Percent Used => 100 - Lot number of Saline Used => [id number] - Apply Skin Sub - 1st 25 sq cm - Feet => 1 - PuraPly AM (per sq cm) => 2 09/05/21 09/12/21 13:45 14:45 Wound Center Nurse 2 #1- L HEEL -Time 13:46 14:46 -Correct Patient Yes Yes -Correct Side, Site, Position Yes Yes -Correct Procedure Yes Yes -Procedure Performed Yes Yes -Type of Procedure Debridement Debridement -Clinical Debridement Subcutaneous Subcutaneous -Tissue Removed Subcutaneous Subcutaneous -Post Debridement (cm) - Length 1.1 1.0 -Post Debridement (cm) - Width 1.9 1.0 -Post Debridement (cm) - Depth 0.1 0.1 -Total Square (Post) (cm) 2.09 1.00 -Area of Debridement (cm) - Length 1.1 1.0 -Area of Debridement (cm) - Width 1.9 1.0 -Total Square (Area) (cm) 2.09 1.00 -Tunneling No No -Undermining/Tunneling No No -Circular Undermining No No -Wound/Ulcer Outcome Not Healed Not Healed -Ulcer Cleansing Rinsed/ Rinsed/ Irrigated with Irrigated with Saline Saline -Foul Odor after Cleansing No No -Bioengineered Tissue Yes Yes -Type of Bioengineered Tissue PuraPly AM PuraPly AM Disc -Expiration Date 04/26/23 04/26/23 -Product Lot Number [id number] -Percent Used 100 100 -Lot number of Saline Used [id number] -Bleeding Controlled with Pressure Pressure -Offloading No No -Treatment Response Procedure Procedure Tolerated Well Tolerated Well -Debridement - Subq, 1st 20sq cm No No -Apply Skin Sub - 1st 25 sq cm - Feet 1 1 -PuraPly AM (per sq cm) 2 -PuraPly AM 16mm Disc (per sq cm) 2 Pain Scale: 0-10 Numeric Is Patient Pain Free? Yes Yes - Nurse 3 - General Ulcer D/C NN Start: 09/05/21 13:31 Freq: Status: Active Protocol: Activity Type Activity Date Activity User E-Sign Co-Sign Detail Recorded Client Recorded Date Recorded By Document 09/05/21 14:07 VASILIY [id number] 09/05/21 14:07 Document 09/12/21 14:59 ML [id number] 09/12/21 15:00 ML 09/05/21 09/12/21 14:07 14:59 Wound Care Nurse 3 #1- L HEEL -Ulcer Cleansing Rinsed/ Irrigated with Saline -Foul Odor after Cleansing No -Primary Dressing Covered/Secured with Dry Gauze & Dry Gauze & Roll Gauze, Roll Gauze, Secured with Secured with Tape Tape -Other Covering nurses hat nurse hat, Pain Scale: 0-10 Numeric Is Patient Pain Free? Yes Yes WC - Visit Discharge Discharge Condition Stable Ambulatory Status Ambulatory Transportation Private Auto Accompanied by son Medication Reconcilliation completed & Yes provided to patient/care provider Clinical Summary of Care Provided Yes Assessment/Plan Assessment/Plan (1) Diabetic foot ulcer associated with type 2 diabetes mellitus: CODE(S): E11.621 - Type 2 diabetes mellitus with foot ulcer; L97.509 - Non-pressure chronic ulcer of other part of unspecified foot with unspecified severity QUALIFIERS: Diabetic foot ulcer location: heel Laterality: left Non-pressure ulcer stage: with fat layer exposed Qualified Code(s): E11.621 - Type 2 diabetes mellitus with foot ulcer; L97.422 - Non-pressure chronic ulcer of left heel and midfoot with fat layer exposed (2) Hypertension: CODE(S): I10 - Essential (primary) hypertension (3) Hypothyroidism: CODE(S): E03.9 - Hypothyroidism, unspecified (4) Debility: CODE(S): R53.81 - Other malaise PLAN: Debridement performed today in clinic as annotated above. Purapply # 2 a 1.6 cm disc was applied after subcutaneous debridement, it was then covered with the wound veil and a thin layer of hydrogel, and secured with Steri-Strips, 100% of the product was used with 0% waste. Patient tolerated the procedure well. At home wound-care instructions: Leave the primary dressing in place for a week, may change the outer gauze dressing as needed. Compression: Held Off-loading: The patient was instructed to avoid pressure and friction on the affected areas. Reposition every 2 hours at minimum. Avoid prolonged standing and/or dangling of legs. When seated, feet should be elevated at chest level. Frequent ambulation is encouraged. Did instruct patient to utilize her offloading boot as much as possible and to bring with her to her next visit Diet: Patient encouraged to increase protein intake while taking caution to avoid high carbohydrate and/or sugar intake. Patient is a non-smoker Labs/cultures/imaging: Cultures ordered and collected previously negative. Routine baseline lab work held will reevaluate if no improvement. Request prior imaging records including MRI and prior podiatry records. MRI was reviewed and was negative for osteomyelitis. Vascular studies held. Given the delayed wound healing and fact that she failed standard wound care with her being seen by podiatry for over a month and now at the wound healing center for 4 weeks, patient would benefit with an advanced skin substitute. She was approved for [facility], [facility], and purapply a.m. Follow-up: Return to clinic in 1 week for re-evaluation. Return sooner or report to the emergency room should symptoms worsen, or new symptoms arise. This note was generated with [employer] dictation software. It may contain incorrect words, spelling, and punctuation that were not noted in checking the note before signing. I have spent 35 minutes today reviewing labs, records, and history. Time includes coordinating care, interpretation of tests, and counseling the patient/family. This also includes time I spent with the patient for exam, treatment plan, and education as well as documenting clinical information in the electronic health record.
[2021-09-19 13:48] VITALS: BP 156/65; PULSE 77; TEMP 36.2; BMI 28.6
--- NOTE | 2021-09-19 15:46 | PCM.WC.PN ---
History of Present Illness Date of Service: 09/19/21 Chief Complaint: Diabetic foot ulcer left heel History of Wound: This is a 71-year-old white female who presents to the wound healing center today with complaint of diabetic foot ulcer to the left heel. She has a past medical history significant for type 2 diabetes mellitus (most recent A1c said to be 6), hypertension, hypothyroidism. The patient states that over the last 3 to 4 months she has had issues with a ulceration to her left heel. She has been following Dr. Shaver podiatry who has had patient in an offloading boot and patient said that she has been utilizing Silvadene as wound care covering with gauze. She states that her primary care did order an MRI of the heel as well which was said to be negative. She was placed on antibiotics at 1 point but states that she is no longer on these. She states that her wound does seem to be improving, however is improving slowly. She denies any purulent drainage or any systemic signs of infection such as fever or chills. She denies any other aggravating relieving factors. Past medical, family, and social history reviewed and not pertinent to the current visit and all other systems reviewed and negative with exception of those listed above. Progress of Wound: 09/05/2021?wound is stable with very slow improvement, her insurance did approve her for purapply am, first application today of a 1.6 cm disc was utilized 09/12/2021?wound is improved, second application today of a 1.6 cm disc purapply am was utilized 09/19/2021?wound is stable, third application today of a 1.6 cm disc purapply am was utilized Objective Data Objective Data Vital Signs: Vital Signs Temp Pulse Resp BP 97.2 F L 77 16 156/65 H 09/19/21 13:48 09/19/21 13:48 09/05/21 13:31 09/19/21 13:48 Weight: 172 lb Body Mass Index (BMI) 28.6 Charges/Coding Procedures Integumentary 150xxx-152xx: 87905 Skin sub graft face/nk/hf/g Physical Exam Const alert, oriented x3, no apparent distress, healthy appearing and well nourished General Appearance: cooperative Exam Limitations: no limitations HEENT normocephalic Head and Scalp: normal to inspection Mouth: oral and palatal mucosa normal Eyes General Eye: normal appearance of both eyes Resp normal respiratory effort, normal air movement and no use of accessory muscles Effort and Inspection: able to speak in complete sentences Auscultation: clear to auscultation bilaterally Cardio regular rate, regular rhythm, S1 normal heart sound, S2 normal heart sound, no murmurs and peripheral pulses 2+ throughout Palpation: normal PMI Rate: regular rate Heart Sounds: S1 normal and S2 normal GI normal to inspection, nondistended, normoactive bowel sounds, soft to palpation, non-tender and non-distended Palpation: soft Extremity normal to inspection and full ROM General Extremity: normal exam except as noted Skin Skin Narrative: Wound present to left heel with adherent slough and callused wound edges, no purulence or erythema or warmth noted at this time. Chronic venous changes present bilateral lower extremities and dorsal pedis pulses 2+ Neuro oriented x3 and moves all extremities Sensorium / Orientation: awake, alert, oriented to person, oriented to place and oriented to time Psych mental status grossly normal, thought process normal and denies hallucinations Appearance: grossly normal Attitude: calm Activity / Motor Behavior: appropriate eye contact Speech: normal speech Thought Process: normal thought process Thought Content: normal thought content Attention / Concentration: attention grossly intact Insight: insight good Judgement: judgement good Debridement Note Debridement Note Wound debrided: Left heel DFU Laterality: Left Type of Debridement: Excisional debridement Depth: Down to and including healthy tissue and in the subcutaneous layer Percentage of wound debrided: 100 Instrument Used: 3mm curette and 5mm curette Tissue Removed: Slough and devitalized tissue Severity: Fat Layer Exposed Amount of bleeding with debridement: Mild Bleeding Controlled with: Pressure Patient tolerated procedure: Patient tolerated procedure well Post-Debridement Measurements and Additional Note: Post-Debridement Measurements/Treatment - Nurse 1 - General Ulcer Assessment Start: 09/05/21 13:31 Freq: Status: Active Protocol: MAYO Activity Type Activity Date Activity User E-Sign Co-Sign Detail Recorded Client Recorded Date Recorded By Document 09/05/21 13:31 ML [id number] 09/05/21 13:37 ML Document 09/12/21 14:42 AK [id number] 09/12/21 14:44 AK Document 09/19/21 13:48 AK [id number] 09/19/21 13:50 AK 09/05/21 09/12/21 09/19/21 13:31 14:42 13:48 WC - Today's Visit Information Type of service Follow-up Visit Follow-up Visit Follow-up Visit (Physician/RECEPTION CENTRE MANAGER (Physician/RECEPTION CENTRE MANAGER (Physician/RECEPTION CENTRE MANAGER ) ) ) Arrival Mode Ambulatory Ambulatory Ambulatory Transfer Assistance None Patient Identification Verified (Name & Yes Yes Yes ) Patient Requires Transmission-Based No No No Precautions Safety Precautions NA NA NA Height and Weight Body Mass Index (BMI) 28.6 28.6 28.6 BMI Classification Overweight Overweight Overweight Vital Signs Temperature (97.8 F-99.1 F) 97.2 F L 97.1 F L 97.2 F L Temperature Source Temporal Temporal Temporal Pulse Rate (60-100) 81 82 77 Pulse Location Monitor Monitor Monitor Respiratory Rate (12-18) 16 Respiratory rate source Observation Blood Pressure (90/60-120/80) 174/60 H 170/73 H 156/65 H Blood Pressure Mean (mm Hg) 98 105 95 Source Monitor Monitor Monitor Position Sitting Blood Pressure Location Left Arm History Since Last Visit- (Skip if this is Patient's initial visit) Have you changed medications since your No No No last visit? Any new allergies or adverse reactions No No No Had a fall/change in ADL's that may No No No increase risk of falls Signs or symptoms of abuse and/or No No No neglect since last visit Have you been in the hospital since your No No No last visit? Has dressing in place as prescribed Yes Yes Yes Has compression in place as prescribed No N/A N/A Has offloadiing in place as prescribed Yes N/A N/A Experienced any changes in pain level or No No No management Left Footwear Surgical Shoe Regular Shoe Regular Shoe with pressure relief insole Right Footwear Regular Shoe Regular Shoe Regular Shoe Pain Scale: 0-10 Numeric Is Patient Pain Free? Yes Yes Yes - Nurse 1 - General Ulcer Measurement Start: 09/05/21 13:31 Freq: Status: Active Protocol: Activity Type Activity Date Activity User E-Sign Co-Sign Detail Recorded Client Recorded Date Recorded By Document 09/05/21 13:31 ML [id number] 09/05/21 13:37 ML Document 09/12/21 14:42 AK [id number] 09/12/21 14:44 AK Document 09/19/21 13:48 AK [id number] 09/19/21 13:50 AK 09/05/21 09/12/21 09/19/21 13:31 14:42 13:48 Wound Center Nurse 1 #1- L HEEL -Combined with other wound No No -Current Size (cm) - Length 0.1 0.8 0.8 -Current Size (cm) - Width 0.1 1 1.5 -Current Size (cm) - Depth 0.1 0.1 0.1 -Total Square Cm 0.01 0.8 1.20 -Photo Taken No No -Epithelialization None Present -Tunneling No No -Undermining/Tunneling No No -Circular Undermining No No -Classification - Santos Grading ( Grade 2 Diabetic Ulcer) -Exudate Amt None Present Medium Small -Exudate Type Serosanguineous Serosanguineous -Wound Margin Distinct, Distinct, Distinct, Outline Outline Outline Attached Attached Attached -Granulation Amt Small (1-33%) None Present (0 None Present (0 %) %) -Granulation Quality N/A N/A -Slough/Fibrin Yes No -Necrosis Amt None Present (0 Medium (34-66%) Small (1-33%) %) -Necrotic Tissue Type Adherent Slough Adherent Slough Adherent Slough -Structure Exposed N/A N/A -Texture (Mare-wound Skin Appearance) Assessed No Abnormality, No Abnormality, Assessed Assessed -Moisture (Mare-wound Skin Appearance) Assessed Assessed,Dry/ Assessed,Dry/ Scaly Scaly -Color (Mare-wound Skin Appearance) Assessed No Abnormality, Assessed Assessed -Temperature (Mare-wound Skin No Abnormality No Abnormality No Abnormality Appearance) (Pt Warm) (Pt Warm) (Pt Warm) -Tenderness on Palpation (Mare-wound No No No Skin Appearance) -Ulcer Cleansing Rinsed/ Rinsed/ Rinsed/ Irrigated with Irrigated with Irrigated with Saline Saline Saline -Foul Odor after Cleansing No No No -Anesthetic Used 5% Lidocaine 4% Lidocaine 4% Lidocaine Gel Solution Solution WC - Nurse 2 - General Ulcer CM Notes Start: 09/05/21 13:31 Freq: Status: Active Protocol: Activity Type Activity Date Activity User E-Sign Co-Sign Detail Recorded Client Recorded Date Recorded By Document 09/05/21 13:45 [id number] 09/05/21 13:56 MW Edit Result 09/05/21 13:45 MW (1) [id number] 09/05/21 14:03 MW Document 09/12/21 14:45 MW [id number] 09/12/21 14:54 MW Document 09/19/21 13:57 MW [id number] 09/19/21 14:05 MW (1) #1- L HEEL - Bioengineered Tissue No => Yes - Type of Bioengineered Tissue => PuraPly AM - Expiration Date => 04/26/23 - Product Lot Number => [id number] - Percent Used => 100 - Lot number of Saline Used => [id number] - Apply Skin Sub - 1st 25 sq cm - Feet => 1 - PuraPly AM (per sq cm) => 2 09/05/21 09/12/21 09/19/21 13:45 14:45 13:57 Wound Center Nurse 2 #1- L HEEL -Time 13:46 14:46 13:57 -Correct Patient Yes Yes Yes -Correct Side, Site, Position Yes Yes Yes -Correct Procedure Yes Yes Yes -Procedure Performed Yes Yes Yes -Type of Procedure Debridement Debridement Debridement -Clinical Debridement Subcutaneous Subcutaneous Subcutaneous -Tissue Removed Subcutaneous Subcutaneous Subcutaneous -Post Debridement (cm) - Length 1.1 1.0 1.0 -Post Debridement (cm) - Width 1.9 1.0 1.2 -Post Debridement (cm) - Depth 0.1 0.1 0.1 -Total Square (Post) (cm) 2.09 1.00 1.20 -Area of Debridement (cm) - Length 1.1 1.0 1.0 -Area of Debridement (cm) - Width 1.9 1.0 1.2 -Total Square (Area) (cm) 2.09 1.00 1.20 -Tunneling No No No -Undermining/Tunneling No No No -Circular Undermining No No No -Wound/Ulcer Outcome Not Healed Not Healed Not Healed -Ulcer Cleansing Rinsed/ Rinsed/ Rinsed/ Irrigated with Irrigated with Irrigated with Saline Saline Saline -Foul Odor after Cleansing No No No -Bioengineered Tissue Yes Yes Yes -Type of Bioengineered Tissue PuraPly AM PuraPly AM Disc PuraPly AM Disc -Expiration Date 04/26/23 04/26/23 07/30/23 -Product Lot Number [id number] -Percent Used 100 100 100 -Lot number of Saline Used [id number] -Bleeding Controlled with Pressure Pressure Pressure -Offloading No No No -Treatment Response Procedure Procedure Procedure Tolerated Well Tolerated Well Tolerated Well -Debridement - Subq, 1st 20sq cm No No No -Apply Skin Sub - 1st 25 sq cm - Feet 1 1 1 -PuraPly AM (per sq cm) 2 -PuraPly AM 16mm Disc (per sq cm) 2 2 Pain Scale: 0-10 Numeric Is Patient Pain Free? Yes Yes Yes - Nurse 3 - General Ulcer D/C NN Start: 09/05/21 13:31 Freq: Status: Active Protocol: Activity Type Activity Date Activity User E-Sign Co-Sign Detail Recorded Client Recorded Date Recorded By Document 09/05/21 14:07 [id number] 09/05/21 14:07 Document 09/12/21 14:59 ML [id number] 09/12/21 15:00 ML Document 09/19/21 14:14 DL [id number] 09/19/21 14:17 DL 09/05/21 09/12/21 09/19/21 14:07 14:59 14:14 Wound Care Nurse 3 #1- L HEEL -Ulcer Cleansing Rinsed/ Irrigated with Saline -Foul Odor after Cleansing No -Other Dressing nurses hat -Primary Dressing Covered/Secured with Dry Gauze & Dry Gauze & Dry Gauze & Roll Gauze, Roll Gauze, Roll Gauze Secured with Secured with Tape Tape -Other Covering nurses hat nurse hat, Pain Scale: 0-10 Numeric Is Patient Pain Free? Yes Yes Yes WC - Visit Discharge Discharge Condition Stable Stable Ambulatory Status Ambulatory Ambulatory Transportation Private Auto Private Auto Accompanied by son Medication Reconcilliation completed & Yes No provided to patient/care provider Clinical Summary of Care Provided Yes Yes Assessment/Plan Assessment/Plan (1) Diabetic foot ulcer associated with type 2 diabetes mellitus: CODE(S): E11.621 - Type 2 diabetes mellitus with foot ulcer; L97.509 - Non-pressure chronic ulcer of other part of unspecified foot with unspecified severity QUALIFIERS: Diabetic foot ulcer location: heel Laterality: left Non-pressure ulcer stage: with fat layer exposed Qualified Code(s): E11.621 - Type 2 diabetes mellitus with foot ulcer; L97.422 - Non-pressure chronic ulcer of left heel and midfoot with fat layer exposed (2) Hypertension: CODE(S): I10 - Essential (primary) hypertension (3) Hypothyroidism: CODE(S): E03.9 - Hypothyroidism, unspecified (4) Debility: CODE(S): R53.81 - Other malaise PLAN: Debridement performed today in clinic as annotated above. Purapply # 3 a 1.6 cm disc was applied after subcutaneous debridement, it was then covered with the wound veil and a thin layer of hydrogel, and secured with Steri-Strips, 100% of the product was used with 0% waste. Patient tolerated the procedure well. At home wound-care instructions: Leave the primary dressing in place for a week, may change the outer gauze dressing as needed. Compression: Held Off-loading: The patient was instructed to avoid pressure and friction on the affected areas. Reposition every 2 hours at minimum. Avoid prolonged standing and/or dangling of legs. When seated, feet should be elevated at chest level. Frequent ambulation is encouraged. Did instruct patient to utilize her offloading boot as much as possible and to bring with her to her next visit Diet: Patient encouraged to increase protein intake while taking caution to avoid high carbohydrate and/or sugar intake. Patient is a non-smoker Labs/cultures/imaging: Cultures ordered and collected previously negative. Routine baseline lab work held will reevaluate if no improvement. Request prior imaging records including MRI and prior podiatry records. MRI was reviewed and was negative for osteomyelitis. Vascular studies held. Given the delayed wound healing and fact that she failed standard wound care with her being seen by podiatry for over a month and now at the wound healing center for 4 weeks, patient would benefit with an advanced skin substitute. She was approved [facility], and purapply a.m. Follow-up: Return to clinic in 1 week for re-evaluation. Return sooner or report to the emergency room should symptoms worsen, or new symptoms arise. This note was generated with [employer] dictation software. It may contain incorrect words, spelling, and punctuation that were not noted in checking the note before signing. I have spent 35 minutes today reviewing labs, records, and history. Time includes coordinating care, interpretation of tests, and counseling the patient/family. This also includes time I spent with the patient for exam, treatment plan, and education as well as documenting clinical information in the electronic health record.
[2021-09-26 14:01] VITALS: BP 157/64; PULSE 78; RESP 16; TEMP 35.9; BMI 28.6
--- NOTE | 2021-09-26 16:30 | PCM.WC.PN ---
History of Present Illness Date of Service: 09/26/21 Chief Complaint: Diabetic foot ulcer left heel History of Wound: This is a 71-year-old white female who presents to the wound healing center today with complaint of diabetic foot ulcer to the left heel. She has a past medical history significant for type 2 diabetes mellitus (most recent A1c said to be 6), hypertension, hypothyroidism. The patient states that over the last 3 to 4 months she has had issues with a ulceration to her left heel. She has been following Dr. Shaver podiatry who has had patient in an offloading boot and patient said that she has been utilizing Silvadene as wound care covering with gauze. She states that her primary care did order an MRI of the heel as well which was said to be negative. She was placed on antibiotics at 1 point but states that she is no longer on these. She states that her wound does seem to be improving, however is improving slowly. She denies any purulent drainage or any systemic signs of infection such as fever or chills. She denies any other aggravating relieving factors. Past medical, family, and social history reviewed and not pertinent to the current visit and all other systems reviewed and negative with exception of those listed above. Progress of Wound: 09/05/2021?wound is stable with very slow improvement, her insurance did approve her for purapply am, first application today of a 1.6 cm disc was utilized 09/12/2021?wound is improved, second application today of a 1.6 cm disc purapply am was utilized 09/19/2021?wound is stable, third application today of a 1.6 cm disc purapply am was utilized 09/26/2021?wound is stable, fourth skin sub application today of a 1.6 cm disc nushield was utilized Objective Data Objective Data Vital Signs: Vital Signs Temp Pulse Resp BP 96.6 F L 78 16 157/64 H 09/26/21 14:01 09/26/21 14:01 09/26/21 14:01 09/26/21 14:01 Oxygen Delivery Method Room Air Weight: 172 lb Body Mass Index (BMI) 28.6 Charges/Coding Procedures Integumentary 150xxx-152xx: 16806 Skin sub graft face/nk/hf/g Physical Exam Const alert, oriented x3, no apparent distress, healthy appearing and well nourished General Appearance: cooperative Exam Limitations: no limitations HEENT normocephalic Head and Scalp: normal to inspection Mouth: oral and palatal mucosa normal Eyes General Eye: normal appearance of both eyes Resp normal respiratory effort, normal air movement and no use of accessory muscles Effort and Inspection: able to speak in complete sentences Auscultation: clear to auscultation bilaterally Cardio regular rate, regular rhythm, S1 normal heart sound, S2 normal heart sound, no murmurs and peripheral pulses 2+ throughout Palpation: normal PMI Rate: regular rate Heart Sounds: S1 normal and S2 normal GI normal to inspection, nondistended, normoactive bowel sounds, soft to palpation, non-tender and non-distended Palpation: soft Extremity normal to inspection and full ROM General Extremity: normal exam except as noted Skin Skin Narrative: Wound present to left heel with adherent slough and callused wound edges, no purulence or erythema or warmth noted at this time. Chronic venous changes present bilateral lower extremities and dorsal pedis pulses 2+ Neuro oriented x3 and moves all extremities Sensorium / Orientation: awake, alert, oriented to person, oriented to place and oriented to time Psych mental status grossly normal, thought process normal and denies hallucinations Appearance: grossly normal Attitude: calm Activity / Motor Behavior: appropriate eye contact Speech: normal speech Thought Process: normal thought process Thought Content: normal thought content Attention / Concentration: attention grossly intact Insight: insight good Judgement: judgement good Debridement Note Debridement Note Wound debrided: Left heel DFU Laterality: Left Wound Grade/Stage: Santos 2 Type of Debridement: Excisional debridement Anesthesia Used: 5% Lidocaine Gel Depth: Down to and including healthy tissue and in the subcutaneous layer Percentage of wound debrided: 100 Instrument Used: 5mm curette Tissue Removed: Slough and devitalized tissue Severity: Fat Layer Exposed Amount of bleeding with debridement: Mild Bleeding Controlled with: Pressure Patient tolerated procedure: Patient tolerated procedure well Post-Debridement Measurements and Additional Note: Post-Debridement Measurements/Treatment PALAK - Nurse 1 - General Ulcer Assessment Start: 09/05/21 13:31 Freq: Status: Active Protocol: MAYO Activity Type Activity Date Activity User E-Sign Co-Sign Detail Recorded Client Recorded Date Recorded By Document 09/05/21 13:31 ML [id number] 09/05/21 13:37 ML Document 09/12/21 14:42 AK [id number] 09/12/21 14:44 AK Document 09/19/21 13:48 TN [id number] 09/19/21 13:50 TN Document 09/26/21 14:01 [facility] [id number] 09/26/21 14:11 BM 09/05/21 09/12/21 09/19/21 13:31 14:42 13:48 WC - Today's Visit Information Type of service Follow-up Visit Follow-up Visit Follow-up Visit (Physician/SPOT MACHINE OPERATOR (Physician/SPOT MACHINE OPERATOR (Physician/SPOT MACHINE OPERATOR ) ) ) Arrival Mode Ambulatory Ambulatory Ambulatory Transfer Assistance None Accompanied by Patient Identification Verified (Name & Yes Yes Yes ) Patient Requires Transmission-Based No No No Precautions Safety Precautions NA NA NA Height and Weight Body Mass Index (BMI) 28.6 28.6 28.6 BMI Classification Overweight Overweight Overweight Vital Signs Temperature (97.8 F-99.1 F) 97.2 F L 97.1 F L 97.2 F L Temperature Source Temporal Temporal Temporal Pulse Rate (60-100) 81 82 77 Pulse Location Monitor Monitor Monitor Respiratory Rate (12-18) 16 Respiratory rate source Observation Oxygen Delivery Method Blood Pressure (90/60-120/80) 174/60 H 170/73 H 156/65 H Blood Pressure Mean (mm Hg) 98 105 95 Source Monitor Monitor Monitor Position Sitting Blood Pressure Location Left Arm History Since Last Visit- (Skip if this is Patient's initial visit) Have you changed medications since your No No No last visit? Any new allergies or adverse reactions No No No Had a fall/change in ADL's that may No No No increase risk of falls Signs or symptoms of abuse and/or No No No neglect since last visit Have you been in the hospital since your No No No last visit? Has dressing in place as prescribed Yes Yes Yes Has compression in place as prescribed No N/A N/A Has offloadiing in place as prescribed Yes N/A N/A Experienced any changes in pain level or No No No management Left Footwear Surgical Shoe Regular Shoe Regular Shoe with pressure relief insole Right Footwear Regular Shoe Regular Shoe Regular Shoe Pain Scale: 0-10 Numeric Is Patient Pain Free? Yes Yes Yes 09/26/21 14:01 WC - Today's Visit Information Type of service Follow-up Visit (Physician/SPOT MACHINE OPERATOR ) Arrival Mode Ambulatory Transfer Assistance None Accompanied by son Patient Identification Verified (Name & Yes ) Patient Requires Transmission-Based No Precautions Safety Precautions Height and Weight Body Mass Index (BMI) 28.6 BMI Classification Overweight Vital Signs Temperature (97.8 F-99.1 F) 96.6 F L Temperature Source Temporal Pulse Rate (60-100) 78 Pulse Location Monitor Respiratory Rate (12-18) 16 Respiratory rate source Observation Oxygen Delivery Method Room Air Blood Pressure (90/60-120/80) 157/64 H Blood Pressure Mean (mm Hg) 95 Source Monitor Position Sitting Blood Pressure Location Right Forearm History Since Last Visit- (Skip if this is Patient's initial visit) Have you changed medications since your No last visit? Any new allergies or adverse reactions No Had a fall/change in ADL's that may No increase risk of falls Signs or symptoms of abuse and/or No neglect since last visit Have you been in the hospital since your No last visit? Has dressing in place as prescribed Yes Has compression in place as prescribed N/A Has offloadiing in place as prescribed Yes Experienced any changes in pain level or No management Left Footwear Surgical Shoe with pressure relief insole Right Footwear Regular Shoe Pain Scale: 0-10 Numeric Is Patient Pain Free? Yes WC - Nurse 1 - General Ulcer Measurement Start: 09/05/21 13:31 Freq: Status: Active Protocol: Activity Type Activity Date Activity User E-Sign Co-Sign Detail Recorded Client Recorded Date Recorded By Document 09/05/21 13:31 ML [id number] 09/05/21 13:37 ML Document 09/12/21 14:42 TN [id number] 09/12/21 14:44 AK Document 09/19/21 13:48 TN [id number] 09/19/21 13:50 AK Document 09/26/21 14:01 [facility] [id number] 09/26/21 14:11 [facility] 09/05/21 09/12/21 09/19/21 13:31 14:42 13:48 Wound Center Nurse 1 #1- L HEEL -Combined with other wound No No -Current Size (cm) - Length 0.1 0.8 0.8 -Current Size (cm) - Width 0.1 1 1.5 -Current Size (cm) - Depth 0.1 0.1 0.1 -Total Square Cm 0.01 0.8 1.20 -Photo Taken No No -Epithelialization None Present -Tunneling No No -Undermining/Tunneling No No -Circular Undermining No No -Classification - Santos Grading ( Grade 2 Diabetic Ulcer) -Exudate Amt None Present Medium Small -Exudate Type Serosanguineous Serosanguineous -Wound Margin Distinct, Distinct, Distinct, Outline Outline Outline Attached Attached Attached -Granulation Amt Small (1-33%) None Present (0 None Present (0 %) %) -Granulation Quality N/A N/A -Slough/Fibrin Yes No -Necrosis Amt None Present (0 Medium (34-66%) Small (1-33%) %) -Necrotic Tissue Type Adherent Slough Adherent Slough Adherent Slough -Structure Exposed N/A N/A -Texture (Mare-wound Skin Appearance) Assessed No Abnormality, No Abnormality, Assessed Assessed -Moisture (Mare-wound Skin Appearance) Assessed Assessed,Dry/ Assessed,Dry/ Scaly Scaly -Color (Mare-wound Skin Appearance) Assessed No Abnormality, Assessed Assessed -Temperature (Mare-wound Skin No Abnormality No Abnormality No Abnormality Appearance) (Pt Warm) (Pt Warm) (Pt Warm) -Tenderness on Palpation (Mare-wound No No No Skin Appearance) -Ulcer Cleansing Rinsed/ Rinsed/ Rinsed/ Irrigated with Irrigated with Irrigated with Saline Saline Saline -Foul Odor after Cleansing No No No -Anesthetic Used 5% Lidocaine 4% Lidocaine 4% Lidocaine Gel Solution Solution 09/26/21 14:01 Wound Center Nurse 1 #1- L HEEL -Combined with other wound No -Current Size (cm) - Length 0.7 -Current Size (cm) - Width 0.4 -Current Size (cm) - Depth 0.1 -Total Square Cm 0.28 -Photo Taken No -Epithelialization Small 1-33% -Tunneling No -Undermining/Tunneling No -Circular Undermining No -Classification - Santos Grading ( Diabetic Ulcer) -Exudate Amt Medium -Exudate Type Serosanguineous -Wound Margin Distinct, Outline Attached -Granulation Amt Large (67-100%) -Granulation Quality Red -Slough/Fibrin Yes -Necrosis Amt Small (1-33%) -Necrotic Tissue Type Adherent Slough -Structure Exposed -Texture (Mare-wound Skin Appearance) Assessed,Callus ,Scarring -Moisture (Mare-wound Skin Appearance) Assessed, Maceration,Dry/ Scaly -Color (Mare-wound Skin Appearance) Assessed,Palor -Temperature (Mare-wound Skin No Abnormality Appearance) (Pt Warm) -Tenderness on Palpation (Mare-wound No Skin Appearance) -Ulcer Cleansing Soap and Water -Foul Odor after Cleansing No -Anesthetic Used 5% Lidocaine Gel WC - Nurse 2 - General Ulcer CM Notes Start: 09/05/21 13:31 Freq: Status: Active Protocol: Activity Type Activity Date Activity User E-Sign Co-Sign Detail Recorded Client Recorded Date Recorded By Document 09/05/21 13:45 MW [id number] 09/05/21 13:56 MW Edit Result 09/05/21 13:45 MW (1) [id number] 09/05/21 14:03 MW Document 09/12/21 14:45 MW [id number] 09/12/21 14:54 MW Document 09/19/21 13:57 MW [id number] 09/19/21 14:05 MW Document 09/26/21 14:25 MW [id number] 09/26/21 14:34 MW (1) #1- L HEEL - Bioengineered Tissue No => Yes - Type of Bioengineered Tissue => PuraPly AM - Expiration Date => 04/26/23 - Product Lot Number => [id number] - Percent Used => 100 - Lot number of Saline Used => [id number] - Apply Skin Sub - 1st 25 sq cm - Feet => 1 - PuraPly AM (per sq cm) => 2 09/05/21 09/12/21 09/19/21 13:45 14:45 13:57 Wound Center Nurse 2 #1- L HEEL -Time 13:46 14:46 13:57 -Correct Patient Yes Yes Yes -Correct Side, Site, Position Yes Yes Yes -Correct Procedure Yes Yes Yes -Procedure Performed Yes Yes Yes -Type of Procedure Debridement Debridement Debridement -Clinical Debridement Subcutaneous Subcutaneous Subcutaneous -Tissue Removed Subcutaneous Subcutaneous Subcutaneous -Post Debridement (cm) - Length 1.1 1.0 1.0 -Post Debridement (cm) - Width 1.9 1.0 1.2 -Post Debridement (cm) - Depth 0.1 0.1 0.1 -Total Square (Post) (cm) 2.09 1.00 1.20 -Area of Debridement (cm) - Length 1.1 1.0 1.0 -Area of Debridement (cm) - Width 1.9 1.0 1.2 -Total Square (Area) (cm) 2.09 1.00 1.20 -Tunneling No No No -Undermining/Tunneling No No No -Circular Undermining No No No -Wound/Ulcer Outcome Not Healed Not Healed Not Healed -Ulcer Cleansing Rinsed/ Rinsed/ Rinsed/ Irrigated with Irrigated with Irrigated with Saline Saline Saline -Foul Odor after Cleansing No No No -Bioengineered Tissue Yes Yes Yes -Type of Bioengineered Tissue PuraPly AM PuraPly AM Disc PuraPly AM Disc -Expiration Date 04/26/23 04/26/23 07/30/23 -Product Lot Number [id number] -Percent Used 100 100 100 -Lot number of Saline Used [id number] -Bleeding Controlled with Pressure Pressure Pressure -Offloading No No No -Treatment Response Procedure Procedure Procedure Tolerated Well Tolerated Well Tolerated Well -Debridement - Subq, 1st 20sq cm No No No -Apply Skin Sub - 1st 25 sq cm - Feet 1 1 1 -NuShield 16mm Disc -PuraPly AM (per sq cm) 2 -PuraPly AM 16mm Disc (per sq cm) 2 2 Pain Scale: 0-10 Numeric Is Patient Pain Free? Yes Yes Yes 09/26/21 14:25 Wound Center Nurse 2 #1- L HEEL -Time 14:26 -Correct Patient Yes -Correct Side, Site, Position Yes -Correct Procedure Yes -Procedure Performed Yes -Type of Procedure Debridement -Clinical Debridement Subcutaneous -Tissue Removed Subcutaneous -Post Debridement (cm) - Length 0.7 -Post Debridement (cm) - Width 1.1 -Post Debridement (cm) - Depth 0.1 -Total Square (Post) (cm) 0.77 -Area of Debridement (cm) - Length 0.7 -Area of Debridement (cm) - Width 1.1 -Total Square (Area) (cm) 0.77 -Tunneling No -Undermining/Tunneling No -Circular Undermining No -Wound/Ulcer Outcome Not Healed -Ulcer Cleansing Rinsed/ Irrigated with Saline -Foul Odor after Cleansing No -Bioengineered Tissue Yes -Type of Bioengineered Tissue NuShield Disc -Expiration Date 03/11/26 -Product Lot Number [id number] -Percent Used 100 -Lot number of Saline Used [id number] -Bleeding Controlled with Pressure -Offloading No -Treatment Response Procedure Tolerated Well -Debridement - Subq, 1st 20sq cm No -Apply Skin Sub - 1st 25 sq cm - Feet 1 -NuShield 16mm Disc 2 -PuraPly AM (per sq cm) -PuraPly AM 16mm Disc (per sq cm) Pain Scale: 0-10 Numeric Is Patient Pain Free? Yes - Nurse 3 - General Ulcer D/C NN Start: 09/05/21 13:31 Freq: Status: Active Protocol: Activity Type Activity Date Activity User E-Sign Co-Sign Detail Recorded Client Recorded Date Recorded By Document 09/05/21 14:07 [id number] 09/05/21 14:07 JF Document 09/12/21 14:59 ML [id number] 09/12/21 15:00 ML Document 09/19/21 14:14 DL [id number] 09/19/21 14:17 DL Document 09/26/21 14:45 BMF [id number] 09/26/21 14:45 BMF 09/05/21 09/12/21 09/19/21 14:07 14:59 14:14 Wound Care Nurse 3 #1- L HEEL -Ulcer Cleansing Rinsed/ Irrigated with Saline -Foul Odor after Cleansing No -Other Dressing nurses hat -Primary Dressing Covered/Secured with Dry Gauze & Dry Gauze & Dry Gauze & Roll Gauze, Roll Gauze, Roll Gauze Secured with Secured with Tape Tape -Other Covering nurses hat nurse hat, Treatment Response Pain Scale: 0-10 Numeric Is Patient Pain Free? Yes Yes Yes WC - Visit Discharge Discharge Condition Stable Stable Ambulatory Status Ambulatory Ambulatory Transportation Private Auto Private Auto Accompanied by son Medication Reconcilliation completed & Yes No provided to patient/care provider Clinical Summary of Care Provided Yes Yes 09/26/21 14:45 Wound Care Nurse 3 #1- L HEEL -Ulcer Cleansing -Foul Odor after Cleansing -Other Dressing nushield -Primary Dressing Covered/Secured with Dry Gauze & Roll Gauze, Secured with Tape,Other -Other Covering heel hat Treatment Response Procedure Tolerated Well Pain Scale: 0-10 Numeric Is Patient Pain Free? Yes WC - Visit Discharge Discharge Condition Stable Ambulatory Status Ambulatory Transportation Private Auto Accompanied by son Medication Reconcilliation completed & provided to patient/care provider Clinical Summary of Care Provided Assessment/Plan Assessment/Plan (1) Diabetic foot ulcer associated with type 2 diabetes mellitus: CODE(S): E11.621 - Type 2 diabetes mellitus with foot ulcer; L97.509 - Non-pressure chronic ulcer of other part of unspecified foot with unspecified severity QUALIFIERS: Diabetic foot ulcer location: heel Laterality: left Non-pressure ulcer stage: with fat layer exposed Qualified Code(s): E11.621 - Type 2 diabetes mellitus with foot ulcer; L97.422 - Non-pressure chronic ulcer of left heel and midfoot with fat layer exposed (2) Hypertension: CODE(S): I10 - Essential (primary) hypertension (3) Hypothyroidism: CODE(S): E03.9 - Hypothyroidism, unspecified (4) Debility: CODE(S): R53.81 - Other malaise PLAN: Debridement performed today in clinic as annotated above. Kandishield# 1 product 4 a 1.6 cm disc was applied after subcutaneous debridement, it was then covered with the wound veil and a thin layer of hydrogel, and secured with Steri-Strips, 100% of the product was used with 0% waste. Patient tolerated the procedure well. At home wound-care instructions: Leave the primary dressing in place for a week, may change the outer gauze dressing as needed. Compression: Held Off-loading: The patient was instructed to avoid pressure and friction on the affected areas. Reposition every 2 hours at minimum. Avoid prolonged standing and/or dangling of legs. When seated, feet should be elevated at chest level. Frequent ambulation is encouraged. Did instruct patient to utilize her offloading boot as much as possible and to bring with her to her next visit Diet: Patient encouraged to increase protein intake while taking caution to avoid high carbohydrate and/or sugar intake. Patient is a non-smoker Labs/cultures/imaging: Cultures ordered and collected previously negative. Routine baseline lab work held will reevaluate if no improvement. Request prior imaging records including MRI and prior podiatry records. MRI was reviewed and was negative for osteomyelitis. Vascular studies held. Given the delayed wound healing and fact that she failed standard wound care with her being seen by podiatry for over a month and now at the wound healing center for 4 weeks, patient would benefit with an advanced skin substitute. She was approved for [facility], and purapply a.m. Follow-up: Return to clinic in 1 week for re-evaluation. Return sooner or report to the emergency room should symptoms worsen, or new symptoms arise. This note was generated with [employer] dictation software. It may contain incorrect words, spelling, and punctuation that were not noted in checking the note before signing. I have spent 35 minutes today reviewing labs, records, and history. Time includes coordinating care, interpretation of tests, and counseling the patient/family. This also includes time I spent with the patient for exam, treatment plan, and education as well as documenting clinical information in the electronic health record.
--- NOTE | 2021-10-02 15:37 | WC ---
Patient cancelled appointment for 10/03/21. Spoke to Milad Saunders NP. Stated to instruct patient to leave Nushield in place on left heel and change outer dressing as needed if soiled. Spoke to patient to inform of Milad's instructions. Voiced understanding. Patient is rescheduled for 10/10/21.
== END 2021-09-30 23:59 ==
LOC: WC 14:00
PROVIDERS: PCP Family Medicine; Visit Provider Nurse Practitioner Family
DX: E11.621 Type 2 diabetes mellitus with foot ulcer (principal); L97.422 Non-pressure chronic ulcer of left heel and midfoot with fat layer exposed; I10 Essential (primary) hypertension; R53.81 Other malaise
CPT/HCPCS: 15275; Q4160; Q4196

== ENCOUNTER 2021-10-24 14:45 | Outpatient (RCR) | payer MEDICARE, SELFPAY ==
[2021-10-01 00:13] VITALS: BP 157/64; PULSE 78; RESP 16; TEMP 35.9; BMI 28.6
[2021-10-10 14:44] VITALS: BP 180/64; PULSE 74; RESP 16; TEMP 36.6; BMI 28.6
--- NOTE | 2021-10-10 16:45 | PN.PCM_ITS ---
History of Present Illness Date of Service: 10/10/21 Chief Complaint: Diabetic foot ulcer left heel History of Wound: This is a 71-year-old white female who presents to the wound healing center today with complaint of diabetic foot ulcer to the left heel. She has a past medical history significant for type 2 diabetes mellitus (most recent A1c said to be 6), hypertension, hypothyroidism. The patient states that over the last 3 to 4 months she has had issues with a ulceration to her left heel. She has been following Dr. Shaver podiatry who has had patient in an offloading boot and patient said that she has been utilizing Silvadene as wound care covering with gauze. She states that her primary care did order an MRI of the heel as well which was said to be negative. She was placed on antibiotics at 1 point but states that she is no longer on these. She states that her wound does seem to be improving, however is improving slowly. She denies any purulent drainage or any systemic signs of infection such as fever or chills. She denies any other aggravating relieving factors. Past medical, family, and social history reviewed and not pertinent to the current visit and all other systems reviewed and negative with exception of those listed above. Progress of Wound: Stable, no new concerns, DFMSim disc product #5 applied today, Objective Data Objective Data Vital Signs: Vital Signs Temp Pulse Resp BP 97.8 F 74 16 180/64 H 10/10/21 14:44 10/10/21 14:44 10/10/21 14:44 10/10/21 14:44 Weight: 172 lb Body Mass Index (BMI) 28.6 Charges/Coding Procedures Integumentary 150xxx-152xx: [id number] Skin sub graft face/nk/hf/g Physical Exam Const alert, oriented x3, no apparent distress, healthy appearing and well nourished General Appearance: cooperative Exam Limitations: no limitations HEENT normocephalic Head and Scalp: normal to inspection Mouth: oral and palatal mucosa normal Eyes General Eye: normal appearance of both eyes Resp normal respiratory effort, normal air movement and no use of accessory muscles Effort and Inspection: able to speak in complete sentences Auscultation: clear to auscultation bilaterally Cardio regular rate, regular rhythm, S1 normal heart sound, S2 normal heart sound, no murmurs and peripheral pulses 2+ throughout Palpation: normal PMI Rate: regular rate Heart Sounds: S1 normal and S2 normal GI normal to inspection, nondistended, normoactive bowel sounds, soft to palpation, non-tender and non-distended Palpation: soft Extremity normal to inspection and full ROM General Extremity: normal exam except as noted Skin Skin Narrative: Wound present to left heel with adherent slough and callused wound edges, no purulence or erythema or warmth noted at this time. Chronic venous changes present bilateral lower extremities and dorsal pedis pulses 2+ Neuro oriented x3 and moves all extremities Sensorium / Orientation: awake, alert, oriented to person, oriented to place and oriented to time Psych mental status grossly normal, thought process normal and denies hallucinations Appearance: grossly normal Attitude: calm Activity / Motor Behavior: appropriate eye contact Speech: normal speech Thought Process: normal thought process Thought Content: normal thought content Attention / Concentration: attention grossly intact Insight: insight good Judgement: judgement good Debridement Note Debridement Note Wound debrided: Left heel diabetic foot ulcer Laterality: Left Wound Grade/Stage: Santos 2 Type of Debridement: Excisional debridement Anesthesia Used: 4% Lidocaine Solution Depth: Down to and including healthy tissue and in the subcutaneous layer Percentage of wound debrided: 100 Instrument Used: 3mm curette Tissue Removed: Slough and devitalized tissue Severity: Fat Layer Exposed Amount of bleeding with debridement: Mild Bleeding Controlled with: Pressure Patient tolerated procedure: Patient tolerated procedure well Post-Debridement Measurements and Additional Note: Post-Debridement Measurements/Treatment - Nurse 1 - General Ulcer Assessment Start: 10/10/21 14:44 Freq: Status: Active Protocol: MAYO Activity Type Activity Date Activity User E-Sign Co-Sign Detail Recorded Client Recorded Date Recorded By Document 10/10/21 14:44 ML [id number] 10/10/21 14:52 ML 10/10/21 14:44 - Today's Visit Information Type of service Follow-up Visit (Physician/[employer] ) Arrival Mode Ambulatory Transfer Assistance None Patient Identification Verified (Name & Yes ) Patient Requires Transmission-Based No Precautions Safety Precautions NA Height and Weight Body Mass Index (BMI) 28.6 BMI Classification Overweight Vital Signs Temperature (97.8 F-99.1 F) 97.8 F Temperature Source Temporal Pulse Rate (60-100) 74 Pulse Location Monitor Respiratory Rate (12-18) 16 Respiratory rate source Observation Blood Pressure (90/60-120/80) 180/64 H Blood Pressure Mean (mm Hg) 102 Source Monitor Position Sitting Blood Pressure Location Left Arm History Since Last Visit- (Skip if this is Patient's initial visit) Have you changed medications since your No last visit? Any new allergies or adverse reactions No Had a fall/change in ADL's that may No increase risk of falls Signs or symptoms of abuse and/or No neglect since last visit Have you been in the hospital since your No last visit? Has dressing in place as prescribed Yes Has compression in place as prescribed N/A Has offloadiing in place as prescribed N/A Experienced any changes in pain level or No management Left Footwear Surgical Shoe with pressure relief insole Right Footwear Regular Shoe Pain Scale: 0-10 Numeric Is Patient Pain Free? Yes - Nurse 1 - General Ulcer Measurement Start: 10/10/21 14:44 Freq: Status: Active Protocol: Activity Type Activity Date Activity User E-Sign Co-Sign Detail Recorded Client Recorded Date Recorded By Document 10/10/21 14:44 ML [id number] 10/10/21 14:52 ML 10/10/21 14:44 Wound Center Nurse 1 #1- L HEEL -Current Size (cm) - Length 0.1 -Current Size (cm) - Width 0.1 -Current Size (cm) - Depth 0.1 -Total Square Cm 0.01 -Exudate Amt Small -Exudate Type Serosanguineous -Wound Margin Distinct, Outline Attached -Necrosis Amt Small (1-33%) -Necrotic Tissue Type Adherent Slough -Texture (Mare-wound Skin Appearance) Assessed -Moisture (Mare-wound Skin Appearance) Dry/Scaly -Color (Mare-wound Skin Appearance) Assessed -Temperature (Mare-wound Skin No Abnormality Appearance) (Pt Warm) -Tenderness on Palpation (Mare-wound No Skin Appearance) -Ulcer Cleansing Rinsed/ Irrigated with Saline -Foul Odor after Cleansing No -Anesthetic Used 5% Lidocaine Gel - Nurse 2 - General Ulcer CM Notes Start: 10/10/21 14:44 Freq: Status: Active Protocol: Activity Type Activity Date Activity User E-Sign Co-Sign Detail Recorded Client Recorded Date Recorded By Document 10/10/21 14:56 MW [id number] 10/10/21 15:05 MW 10/10/21 14:56 Wound Center Nurse 2 -Time 14:57 -Correct Patient Yes -Correct Side, Site, Position Yes -Correct Procedure Yes -Procedure Performed Yes -Type of Procedure Debridement -Clinical Debridement Subcutaneous -Tissue Removed Subcutaneous -Post Debridement (cm) - Length 0.8 -Post Debridement (cm) - Width 0.6 -Post Debridement (cm) - Depth 0.2 -Total Square (Post) (cm) 0.48 -Area of Debridement (cm) - Length 0.8 -Area of Debridement (cm) - Width 0.6 -Total Square (Area) (cm) 0.48 -Tunneling No -Undermining/Tunneling No -Circular Undermining No -Wound/Ulcer Outcome Not Healed -Ulcer Cleansing Rinsed/ Irrigated with Saline -Foul Odor after Cleansing No -Bioengineered Tissue Yes -Type of Bioengineered Tissue NuShield Disc -Expiration Date 03/14/26 -Product Lot Number [id number] -Percent Used 100 -Lot number of Saline Used [id number] -Bleeding Controlled with Pressure -Offloading No -Treatment Response Procedure Tolerated Well -Debridement - Subq, 1st 20sq cm No -Apply Skin Sub - 1st 25 sq cm - Legs 1 -NuShield 16mm Disc 2 Pain Scale: 0-10 Numeric Is Patient Pain Free? Yes - Nurse 3 - General Ulcer D/C NN Start: 10/10/21 14:44 Freq: Status: Active Protocol: Activity Type Activity Date Activity User E-Sign Co-Sign Detail Recorded Client Recorded Date Recorded By Document 10/10/21 15:14 VASILIY [id number] 10/10/21 15:15 10/10/21 15:14 Wound Care Nurse 3 #1- L HEEL -Ulcer Cleansing Rinsed/ Irrigated with Saline -Foul Odor after Cleansing No -Primary Dressing Covered/Secured with Dry Gauze & Roll Gauze, Secured with Tape Pain Scale: 0-10 Numeric Is Patient Pain Free? Yes - Visit Discharge Discharge Condition Stable Ambulatory Status Ambulatory Transportation Private Auto Accompanied by son Medication Reconcilliation completed & Yes provided to patient/care provider Clinical Summary of Care Provided Yes Assessment/Plan Assessment/Plan (1) Diabetic foot ulcer associated with type 2 diabetes mellitus: CODE(S): E11.621 - Type 2 diabetes mellitus with foot ulcer; L97.509 - Non-pressure chronic ulcer of other part of unspecified foot with unspecified severity QUALIFIERS: Diabetic foot ulcer location: heel Laterality: left Non-pressure ulcer stage: with fat layer exposed Qualified Code(s): E11.621 - Type 2 diabetes mellitus with foot ulcer; L97.422 - Non-pressure chronic ulcer of left heel and midfoot with fat layer exposed (2) Hypertension: CODE(S): I10 - Essential (primary) hypertension (3) Hypothyroidism: CODE(S): E03.9 - Hypothyroidism, unspecified (4) Debility: CODE(S): R53.81 - Other malaise PLAN: Debridement performed today in clinic as annotated above. [facility] 5 a 1.6 cm disc was applied after subcutaneous debridement, it was then covered with the wound veil and a thin layer of hydrogel, and secured with Steri-Strips, 100% of the product was used with 0% waste. Patient tolerated the procedure well. At home wound-care instructions: Leave the primary dressing in place for a week, may change the outer gauze dressing as needed. Compression: Held Off-loading: The patient was instructed to avoid pressure and friction on the affected areas. Reposition every 2 hours at minimum. Avoid prolonged standing and/or dangling of legs. When seated, feet should be elevated at chest level. Frequent ambulation is encouraged. Did instruct patient to utilize her o ffloading boot as much as possible and to bring with her to her next visit Diet: Patient encouraged to increase protein intake while taking caution to avoid high carbohydrate and/or sugar intake. Patient is a non-smoker Labs/cultures/imaging: Cultures ordered and collected previously negative. Routine baseline lab work held will reevaluate if no improvement. Request prior imaging records including MRI and prior podiatry records. MRI was reviewed and was negative for osteomyelitis. Vascular studies held. Given the delayed wound healing and fact that she failed standard wound care with her being seen by podiatry for over a month and now at the wound healing center for 4 weeks, patient would benefit with an advanced skin substitute. She was approved for nushield, Apligraf, and purapply a.m. Follow-up: Return to clinic in 1 week for re-evaluation. Return sooner or report to the emergency room should symptoms worsen, or new symptoms arise. This note was generated with [employer] dictation software. It may contain incorrect words, spelling, and punctuation that were not noted in checking the note before signing. I have spent 35 minutes today reviewing labs, records, and history. Time includes coordinating care, interpretation of tests, and counseling the patient/family. This also includes time I spent with the patient for exam, treatment plan, and education as well as documenting clinical information in the electronic health record.
[2021-10-17 14:31] VITALS: BP 153/95; PULSE 75; RESP 16; TEMP 37; BMI 28.6
--- NOTE | 2021-10-17 16:41 | PN.PCM_ITS ---
History of Present Illness Date of Service: 10/17/21 Chief Complaint: Diabetic foot ulcer left heel History of Wound: This is a 71-year-old white female who presents to the wound healing center today with complaint of diabetic foot ulcer to the left heel. She has a past medical history significant for type 2 diabetes mellitus (most recent A1c said to be 6), hypertension, hypothyroidism. The patient states that over the last 3 to 4 months she has had issues with a ulceration to her left heel. She has been following Dr. Shaver podiatry who has had patient in an offloading boot and patient said that she has been utilizing Silvadene as wound care covering with gauze. She states that her primary care did order an MRI of the heel as well which was said to be negative. She was placed on antibiotics at 1 point but states that she is no longer on these. She states that her wound does seem to be improving, however is improving slowly. She denies any purulent drainage or any systemic signs of infection such as fever or chills. She denies any other aggravating relieving factors. Past medical, family, and social history reviewed and not pertinent to the current visit and all other systems reviewed and negative with exception of those listed above. Progress of Wound: Stable, no new concerns, [employer] disc product #6 applied today, 1.6 cm disc utilized and 50% was wasted due to product availability at the center Objective Data Objective Data Vital Signs: Vital Signs Temp Pulse Resp BP 98.6 F 75 16 153/95 H 10/17/21 14:31 10/17/21 14:31 10/17/21 14:31 10/17/21 14:31 Oxygen Delivery Method Room Air Weight: 172 lb Body Mass Index (BMI) 28.6 Charges/Coding Procedures Integumentary 150xxx-152xx: 76214 Skin sub graft face/nk/hf/g Physical Exam Const alert, oriented x3, no apparent distress, healthy appearing and well nourished General Appearance: cooperative Exam Limitations: no limitations HEENT normocephalic Head and Scalp: normal to inspection Mouth: oral and palatal mucosa normal Eyes General Eye: normal appearance of both eyes Resp normal respiratory effort, normal air movement and no use of accessory muscles Effort and Inspection: able to speak in complete sentences Auscultation: clear to auscultation bilaterally Cardio regular rate, regular rhythm, S1 normal heart sound, S2 normal heart sound, no murmurs and peripheral pulses 2+ throughout Palpation: normal PMI Rate: regular rate Heart Sounds: S1 normal and S2 normal GI normal to inspection, nondistended, normoactive bowel sounds, soft to palpation, non-tender and non-distended Palpation: soft Extremity normal to inspection and full ROM General Extremity: normal exam except as noted Skin Skin Narrative: Wound present to left heel with adherent slough and callused wound edges, no purulence or erythema or warmth noted at this time. Chronic venous changes present bilateral lower extremities and dorsal pedis pulses 2+ Neuro oriented x3 and moves all extremities Sensorium / Orientation: awake, alert, oriented to person, oriented to place and oriented to time Psych mental status grossly normal, thought process normal and denies hallucinations Appearance: grossly normal Attitude: calm Activity / Motor Behavior: appropriate eye contact Speech: normal speech Thought Process: normal thought process Thought Content: normal thought content Attention / Concentration: attention grossly intact Insight: insight good Judgement: judgement good Debridement Note Debridement Note Wound debrided: Left heel DFU Laterality: Left Type of Debridement: Excisional debridement Anesthesia Used: 4% Lidocaine Solution and 5% Lidocaine Gel Depth: Down to and including healthy tissue and in the subcutaneous layer Percentage of wound debrided: 100 Instrument Used: 5mm curette Tissue Removed: Slough and devitalized tissue Severity: Fat Layer Exposed Amount of bleeding with debridement: Mild Bleeding Controlled with: Pressure Patient tolerated procedure: Patient tolerated procedure well Post-Debridement Measurements and Additional Note: Post-Debridement Measurements/Treatment - Nurse 1 - General Ulcer Assessment Start: 10/10/21 14:44 Freq: Status: Active Protocol: MAYO Activity Type Activity Date Activity User E-Sign Co-Sign Detail Recorded Client Recorded Date Recorded By Document 10/10/21 14:44 [id number] 10/10/21 14:52 ML Document 10/17/21 14:31 [facility] [id number] 10/17/21 14:39 BM 10/10/21 10/17/21 14:44 14:31 - Today's Visit Information Type of service Follow-up Visit Follow-up Visit (Physician/HAND GLASS CUTTER (Physician/HAND GLASS CUTTER ) ) Arrival Mode Ambulatory Ambulatory Transfer Assistance None None Accompanied by son Patient Identification Verified (Name & Yes Yes ) Patient Requires Transmission-Based No No Precautions Safety Precautions NA Height and Weight Body Mass Index (BMI) 28.6 28.6 BMI Classification Overweight Overweight Vital Signs Temperature (97.8 F-99.1 F) 97.8 F 98.6 F Temperature Source Temporal Temporal Pulse Rate (60-100) 74 75 Pulse Location Monitor Monitor Respiratory Rate (12-18) 16 16 Respiratory rate source Observation Observation Oxygen Delivery Method Room Air Blood Pressure (90/60-120/80) 180/64 H 153/95 H Blood Pressure Mean (mm Hg) 102 114 Source Monitor Monitor Position Sitting Sitting Blood Pressure Location Left Arm Right Arm History Since Last Visit- (Skip if this is Patient's initial visit) Have you changed medications since your No No last visit? Any new allergies or adverse reactions No No Had a fall/change in ADL's that may No No increase risk of falls Signs or symptoms of abuse and/or No No neglect since last visit Have you been in the hospital since your No No last visit? Has dressing in place as prescribed Yes Yes Has compression in place as prescribed N/A N/A Has offloadiing in place as prescribed N/A N/A Experienced any changes in pain level or No No management Left Footwear Surgical Shoe Surgical Shoe with pressure with pressure relief insole relief insole Right Footwear Regular Shoe Regular Shoe Pain Scale: 0-10 Numeric Is Patient Pain Free? Yes Yes WC - Nurse 1 - General Ulcer Measurement Start: 10/10/21 14:44 Freq: Status: Active Protocol: Activity Type Activity Date Activity User E-Sign Co-Sign Detail Recorded Client Recorded Date Recorded By Document 10/10/21 14:44 [id number] 10/10/21 14:52 Document 10/17/21 14:31 [facility] [id number] 10/17/21 14:39 [facility] 10/10/21 10/17/21 14:44 14:31 Wound Center Nurse 1 #1- L HEEL -Combined with other wound No -Current Size (cm) - Length 0.1 0.5 -Current Size (cm) - Width 0.1 0.3 -Current Size (cm) - Depth 0.1 0.2 -Total Square Cm 0.01 0.15 -Date of Last Picture (Recall this 10/17/21 field) -Photo Taken Yes -Epithelialization Small 1-33% -Tunneling No -Undermining/Tunneling No -Circular Undermining No -Exudate Amt Small Medium -Exudate Type Serosanguineous Serosanguineous -Wound Margin Distinct, Distinct, Outline Outline Attached Attached -Granulation Amt Large (67-100%) -Granulation Quality Media -Slough/Fibrin Yes -Necrosis Amt Small (1-33%) Small (1-33%) -Necrotic Tissue Type Adherent Slough Adherent Slough -Texture (Mare-wound Skin Appearance) Assessed Assessed,Callus -Moisture (Mare-wound Skin Appearance) Dry/Scaly Assessed,Dry/ Scaly -Color (Mare-wound Skin Appearance) Assessed Assessed -Temperature (Mare-wound Skin No Abnormality No Abnormality Appearance) (Pt Warm) (Pt Warm) -Tenderness on Palpation (Mare-wound No No Skin Appearance) -Ulcer Cleansing Rinsed/ Soap and Water Irrigated with Saline -Foul Odor after Cleansing No No -Anesthetic Used 5% Lidocaine 5% Lidocaine Gel Gel WC - Nurse 2 - General Ulcer CM Notes Start: 10/10/21 14:44 Freq: Status: Active Protocol: Activity Type Activity Date Activity User E-Sign Co-Sign Detail Recorded Client Recorded Date Recorded By Document 10/10/21 14:56 MW [id number] 10/10/21 15:05 MW Document 10/17/21 14:58 MW [id number] 10/17/21 15:08 MW 10/10/21 10/17/21 14:56 14:58 Wound Center Nurse 2 #1- L HEEL -Time 14:57 14:58 -Correct Patient Yes Yes -Correct Side, Site, Position Yes Yes -Correct Procedure Yes Yes -Procedure Performed Yes Yes -Type of Procedure Debridement Debridement -Clinical Debridement Subcutaneous Subcutaneous -Tissue Removed Subcutaneous Subcutaneous -Post Debridement (cm) - Length 0.8 0.5 -Post Debridement (cm) - Width 0.6 0.6 -Post Debridement (cm) - Depth 0.2 0.1 -Total Square (Post) (cm) 0.48 0.30 -Area of Debridement (cm) - Length 0.8 0.5 -Area of Debridement (cm) - Width 0.6 0.6 -Total Square (Area) (cm) 0.48 0.30 -Tunneling No No -Undermining/Tunneling No No -Circular Undermining No No -Wound/Ulcer Outcome Not Healed Not Healed -Ulcer Cleansing Rinsed/ Rinsed/ Irrigated with Irrigated with Saline Saline -Foul Odor after Cleansing No No -Bioengineered Tissue Yes Yes -Type of Bioengineered Tissue NuShield Disc NuShield Disc -Expiration Date 03/14/26 03/20/26 -Product Lot Number [id number] -Percent Used 100 50 -Lot number of Saline Used [id number] -Bleeding Controlled with Pressure Pressure -Offloading No No -Treatment Response Procedure Procedure Tolerated Well Tolerated Well -Debridement - Subq, 1st 20sq cm No No -Apply Skin Sub - 1st 25 sq cm - Legs 1 -Apply Skin Sub - 1st 25 sq cm - Feet 1 -NuShield 16mm Disc 2 2 Pain Scale: 0-10 Numeric Is Patient Pain Free? Yes Yes - Nurse 3 - General Ulcer D/C NN Start: 10/10/21 14:44 Freq: Status: Active Protocol: Activity Type Activity Date Activity User E-Sign Co-Sign Detail Recorded Client Recorded Date Recorded By Document 10/10/21 15:14 [id number] 10/10/21 15:15 Document 10/17/21 15:08 MW [id number] 10/17/21 15:08 MW 10/10/21 10/17/21 15:14 15:08 Wound Care Nurse 3 #1- L HEEL -Ulcer Cleansing Rinsed/ Not Cleansed Irrigated with Saline -Foul Odor after Cleansing No No -Negative Pressure Wound Therapy N/A -Primary Dressing Applied Mepilex Border -Primary Dressing Covered/Secured with Dry Gauze & Roll Gauze, Secured with Tape -Mepilex Border 1 Treatment Response Procedure Tolerated Well Pain Scale: 0-10 Numeric Is Patient Pain Free? Yes Yes Teaching: Wound Center Dressing Your Wound -Person Taught Patient,Family -Teaching Method Discussion -Response to teaching Verbalize understanding WC - Visit Discharge Discharge Condition Stable Stable Ambulatory Status Ambulatory Ambulatory Transportation Private Auto Private Auto Accompanied by son son Medication Reconcilliation completed & Yes No provided to patient/care provider Clinical Summary of Care Provided Yes Yes Assessment/Plan Assessment/Plan (1) Diabetic foot ulcer associated with type 2 diabetes mellitus: CODE(S): E11.621 - Type 2 diabetes mellitus with foot ulcer; L97.509 - Non-pressure chronic ulcer of other part of unspecified foot with unspecified severity QUALIFIERS: Diabetic foot ulcer location: heel Laterality: left Non-pressure ulcer stage: with fat layer exposed Qualified Code(s): E11.621 - Type 2 diabetes mellitus with foot ulcer; L97.422 - Non-pressure chronic ulcer of left heel and midfoot with fat layer exposed (2) Hypertension: CODE(S): I10 - Essential (primary) hypertension (3) Hypothyroidism: CODE(S): E03.9 - Hypothyroidism, unspecified (4) Debility: CODE(S): R53.81 - Other malaise PLAN: Debridement performed today in clinic as annotated above. [facility] product 6 a 1.6 cm disc was applied after subcutaneous debridement, it was then covered with the wound veil and a thin layer of hydrogel, and secured with Steri-Strips, 50% of the product was used with 50% waste. Patient tolerated the procedure well. At home wound-care instructions: Leave the primary dressing in place for a week, may change the outer gauze dressing as needed. Compression: Held Off-loading: The patient was instructed to avoid pressure and friction on the affected areas. Reposition every 2 hours at minimum. Avoid prolonged standing and/or dangling of legs. When seated, feet should be elevated at chest level. Frequent ambulation is encouraged. Did instruct patient to utilize her offloading boot as much as possible and to bring with her to her next visit Diet: Patient encouraged to increase protein intake while taking caution to avoid high carbohydrate and/or sugar intake. Patient is a non-smoker Labs/cultures/imaging: Cultures ordered and collected previously negative. Routine baseline lab work held will reevaluate if no improvement. Request prior imaging records including MRI and prior podiatry records. MRI was reviewed and was negative for osteomyelitis. Vascular studies held. Given the delayed wound healing and fact that she failed standard wound care with her being seen by podiatry for over a month and now at the wound healing center for 4 weeks, patient would benefit with an advanced skin substitute. She was approved for nuield, Apligraf, and purapply a.m. Follow-up: Return to clinic in 1 week for re-evaluation. Return sooner or report to the emergency room should symptoms worsen, or new symptoms arise. This note was generated with [employer] dictation software. It may contain incorrect words, spelling, and punctuation that were not noted in checking the note before signing. I have spent 35 minutes today reviewing labs, records, and history. Time includes coordinating care, interpretation of tests, and counseling the patient/family. This also includes time I spent with the patient for exam, treatment plan, and education as well as documenting clinical information in the electronic health record.
[2021-10-24 14:48] VITALS: BP 181/76; RESP 16; TEMP 36; BMI 28.6
--- NOTE | 2021-10-24 20:52 | PN.PCM_ITS ---
History of Present Illness Date of Service: 10/24/21 Chief Complaint: Diabetic foot ulcer left heel History of Wound: This is a 71-year-old white female who presents to the wound healing center today with complaint of diabetic foot ulcer to the left heel. She has a past medical history significant for type 2 diabetes mellitus (most recent A1c said to be 6), hypertension, hypothyroidism. The patient states that over the last 3 to 4 months she has had issues with a ulceration to her left heel. She has been following Dr. Shaver podiatry who has had patient in an offloading boot and patient said that she has been utilizing Silvadene as wound care covering with gauze. She states that her primary care did order an MRI of the heel as well which was said to be negative. She was placed on antibiotics at 1 point but states that she is no longer on these. She states that her wound does seem to be improving, however is improving slowly. She denies any purulent drainage or any systemic signs of infection such as fever or chills. She denies any other aggravating relieving factors. Past medical, family, and social history reviewed and not pertinent to the current visit and all other systems reviewed and negative with exception of those listed above. Progress of Wound: Stable, no new concerns, Traffio disc product #7 applied today, 1.6 cm disc utilized and 50% was wasted due to wound center policy and product availability at the center Objective Data Objective Data Vital Signs: Vital Signs Temp Pulse Resp BP 96.8 F L 75 16 181/76 H 10/24/21 14:48 10/17/21 14:31 10/24/21 14:48 10/24/21 14:48 Oxygen Delivery Method Room Air Weight: 172 lb Body Mass Index (BMI) 28.6 Charges/Coding Procedures Integumentary 150xxx-152xx: 21156 Skin sub graft face/nk/hf/g Physical Exam Const alert, oriented x3, no apparent distress, healthy appearing and well nourished General Appearance: cooperative Exam Limitations: no limitations HEENT normocephalic Head and Scalp: normal to inspection Mouth: oral and palatal mucosa normal Eyes General Eye: normal appearance of both eyes Resp normal respiratory effort, normal air movement and no use of accessory muscles Effort and Inspection: able to speak in complete sentences Auscultation: clear to auscultation bilaterally Cardio regular rate, regular rhythm, S1 normal heart sound, S2 normal heart sound, no murmurs and peripheral pulses 2+ throughout Palpation: normal PMI Rate: regular rate Heart Sounds: S1 normal and S2 normal GI normal to inspection, nondistended, normoactive bowel sounds, soft to palpation, non-tender and non-distended Palpation: soft Extremity normal to inspection and full ROM General Extremity: normal exam except as noted Skin Skin Narrative: Wound present to left heel with adherent slough and callused wound edges, no purulence or erythema or warmth noted at this time. Chronic venous changes present bilateral lower extremities and dorsal pedis pulses 2+ Neuro oriented x3 and moves all extremities Sensorium / Orientation: awake, alert, oriented to person, oriented to place and oriented to time Psych mental status grossly normal, thought process normal and denies hallucinations Appearance: grossly normal Attitude: calm Activity / Motor Behavior: appropriate eye contact Speech: normal speech Thought Process: normal thought process Thought Content: normal thought content Attention / Concentration: attention grossly intact Insight: insight good Judgement: judgement good Debridement Note Debridement Note Wound debrided: Left heel diabetic foot ulcer Laterality: Left Wound Grade/Stage: Santos 2 Type of Debridement: Excisional debridement Anesthesia Used: 4% Lidocaine Solution and 5% Lidocaine Gel Depth: Down to and including healthy tissue and in the subcutaneous layer Percentage of wound debrided: 100 Instrument Used: 3mm curette Tissue Removed: Slough and devitalized tissue Severity: Fat Layer Exposed Amount of bleeding with debridement: Mild Bleeding Controlled with: Pressure Patient tolerated procedure: Patient tolerated procedure well Post-Debridement Measurements and Additional Note: Post-Debridement Measurements/Treatment - Nurse 1 - General Ulcer Assessment Start: 10/10/21 14:44 Freq: Status: Active Protocol: MAYO Activity Type Activity Date Activity User E-Sign Co-Sign Detail Recorded Client Recorded Date Recorded By Document 10/10/21 14:44 ML [id number] 10/10/21 14:52 ML Document 10/17/21 14:31 BMF [id number] 10/17/21 14:39 BMF Document 10/24/21 14:48 ML [id number] 10/24/21 14:57 ML 10/10/21 10/17/21 10/24/21 14:44 14:31 14:48 WC - Today's Visit Information Type of service Follow-up Visit Follow-up Visit Follow-up Visit (Physician/DETECTIVE LIEUTENANT (Physician/DETECTIVE LIEUTENANT (Physician/DETECTIVE LIEUTENANT ) ) ) Arrival Mode Ambulatory Ambulatory Ambulatory Transfer Assistance None None None Accompanied by son Patient Identification Verified (Name & Yes Yes Yes ) Patient Requires Transmission-Based No No No Precautions Safety Precautions NA NA Height and Weight Body Mass Index (BMI) 28.6 28.6 28.6 BMI Classification Overweight Overweight Overweight Vital Signs Temperature (97.8 F-99.1 F) 97.8 F 98.6 F 96.8 F L Temperature Source Temporal Temporal Temporal Pulse Rate (60-100) 74 75 Pulse Location Monitor Monitor Respiratory Rate (12-18) 16 16 16 Respiratory rate source Observation Observation Observation Oxygen Delivery Method Room Air Blood Pressure (90/60-120/80) 180/64 H 153/95 H 181/76 H Blood Pressure Mean (mm Hg) 102 114 111 Source Monitor Monitor Monitor Position Sitting Sitting Sitting Blood Pressure Location Left Arm Right Arm Left Arm History Since Last Visit- (Skip if this is Patient's initial visit) Have you changed medications since your No No No last visit? Any new allergies or adverse reactions No No No Had a fall/change in ADL's that may No No No increase risk of falls Signs or symptoms of abuse and/or No No No neglect since last visit Have you been in the hospital since your No No No last visit? Has dressing in place as prescribed Yes Yes Yes Has compression in place as prescribed N/A N/A Yes Has offloadiing in place as prescribed N/A N/A Yes Experienced any changes in pain level or No No No management Left Footwear Surgical Shoe Surgical Shoe Diabetic Shoe with pressure with pressure relief insole relief insole Right Footwear Regular Shoe Regular Shoe Regular Shoe Pain Scale: 0-10 Numeric Is Patient Pain Free? Yes Yes Yes - Nurse 1 - General Ulcer Measurement Start: 10/10/21 14:44 Freq: Status: Active Protocol: Activity Type Activity Date Activity User E-Sign Co-Sign Detail Recorded Client Recorded Date Recorded By Document 10/10/21 14:44 ML [id number] 10/10/21 14:52 ML Document 10/17/21 14:31 BMF [id number] 10/17/21 14:39 BMF Document 10/24/21 14:48 ML [id number] 10/24/21 14:57 ML 10/10/21 10/17/21 10/24/21 14:44 14:31 14:48 Wound Center Nurse 1 #1- L HEEL -Combined with other wound No -Current Size (cm) - Length 0.1 0.5 0.1 -Current Size (cm) - Width 0.1 0.3 0.1 -Current Size (cm) - Depth 0.1 0.2 0.1 -Total Square Cm 0.01 0.15 0.01 -Date of Last Picture (Recall this 10/17/21 field) -Photo Taken Yes -Epithelialization Small 1-33% -Tunneling No -Undermining/Tunneling No -Circular Undermining No -Exudate Amt Small Medium Small -Exudate Type Serosanguineous Serosanguineous Serosanguineous -Wound Margin Distinct, Distinct, Distinct, Outline Outline Outline Attached Attached Attached -Granulation Amt Large (67-100%) -Granulation Quality [place] -Slough/Fibrin Yes Yes -Necrosis Amt Small (1-33%) Small (1-33%) None Present (0 %) -Necrotic Tissue Type Adherent Slough Adherent Slough Adherent Slough -Texture (Mare-wound Skin Appearance) Assessed Assessed,Callus Assessed -Moisture (Mare-wound Skin Appearance) Dry/Scaly Assessed,Dry/ Assessed Scaly -Color (Mare-wound Skin Appearance) Assessed Assessed Assessed -Temperature (Mare-wound Skin No Abnormality No Abnormality No Abnormality Appearance) (Pt Warm) (Pt Warm) (Pt Warm) -Tenderness on Palpation (Mare-wound No No No Skin Appearance) -Ulcer Cleansing Rinsed/ Soap and Water Soap and Water Irrigated with Saline -Foul Odor after Cleansing No No No -Anesthetic Used 5% Lidocaine 5% Lidocaine 5% Lidocaine Gel Gel Gel WC - Nurse 2 - General Ulcer CM Notes Start: 10/10/21 14:44 Freq: Status: Active Protocol: Activity Type Activity Date Activity User E-Sign Co-Sign Detail Recorded Client Recorded Date Recorded By Document 10/10/21 14:56 MW [id number] 10/10/21 15:05 MW Document 10/17/21 14:58 MW [id number] 10/17/21 15:08 MW Document 10/24/21 15:14 MW [id number] 10/24/21 15:23 MW 10/10/21 10/17/21 10/24/21 14:56 14:58 15:14 Wound Center Nurse 2 #1- L HEEL -Time 14:57 14:58 15:14 -Correct Patient Yes Yes Yes -Correct Side, Site, Position Yes Yes Yes -Correct Procedure Yes Yes Yes -Procedure Performed Yes Yes Yes -Type of Procedure Debridement Debridement Debridement -Clinical Debridement Subcutaneous Subcutaneous Subcutaneous -Tissue Removed Subcutaneous Subcutaneous Subcutaneous -Post Debridement (cm) - Length 0.8 0.5 0.5 -Post Debridement (cm) - Width 0.6 0.6 0.6 -Post Debridement (cm) - Depth 0.2 0.1 0.1 -Total Square (Post) (cm) 0.48 0.30 0.30 -Area of Debridement (cm) - Length 0.8 0.5 0.5 -Area of Debridement (cm) - Width 0.6 0.6 0.6 -Total Square (Area) (cm) 0.48 0.30 0.30 -Tunneling No No No -Undermining/Tunneling No No No -Circular Undermining No No No -Wound/Ulcer Outcome Not Healed Not Healed Not Healed -Ulcer Cleansing Rinsed/ Rinsed/ Rinsed/ Irrigated with Irrigated with Irrigated with Saline Saline Saline -Foul Odor after Cleansing No No No -Bioengineered Tissue Yes Yes Yes -Type of Bioengineered Tissue NuShield Disc NuShield Disc NuShield Disc -Expiration Date 03/14/26 03/20/26 03/25/26 -Product Lot Number [id number] -Percent Used 100 50 50 -Lot number of Saline Used [id number] -Bleeding Controlled with Pressure Pressure Pressure -Offloading No No No -Treatment Response Procedure Procedure Tolerated Well Tolerated Well -Debridement - Subq, 1st 20sq cm No No No -Apply Skin Sub - 1st 25 sq cm - Legs 1 -Apply Skin Sub - 1st 25 sq cm - Feet 1 1 -NuShield 16mm Disc 2 2 2 Pain Scale: 0-10 Numeric Is Patient Pain Free? Yes Yes Yes WC - Nurse 3 - General Ulcer D/C NN Start: 10/10/21 14:44 Freq: Status: Active Protocol: Activity Type Activity Date Activity User E-Sign Co-Sign Detail Recorded Client Recorded Date Recorded By Document 10/10/21 15:14 JF [id number] 10/10/21 15:15 JF Document 10/17/21 15:08 MW [id number] 10/17/21 15:08 MW Document 10/24/21 15:36 ML [id number] 10/24/21 15:37 ML 10/10/21 10/17/21 10/24/21 15:14 15:08 15:36 Wound Care Nurse 3 #1- L HEEL -Ulcer Cleansing Rinsed/ Not Cleansed Irrigated with Saline -Foul Odor after Cleansing No No -Negative Pressure Wound Therapy N/A -Primary Dressing Applied Mepilex Border -Other Dressing ABD -Primary Dressing Covered/Secured with Dry Gauze & Dry Gauze & Roll Gauze, Roll Gauze, Secured with Secured with Tape Tape -Mepilex Border 1 Left -Tubular Bandage Double Layer -Size of Tubigrip Used Size E -Size E ($) 2 Treatment Response Procedure Tolerated Well Pain Scale: 0-10 Numeric Is Patient Pain Free? Yes Yes Yes Teaching: Wound Center Dressing Your Wound -Person Taught Patient,Family -Teaching Method Discussion -Response to teaching Verbalize understanding WC - Visit Discharge Discharge Condition Stable Stable Ambulatory Status Ambulatory Ambulatory Transportation Private Auto Private Auto Accompanied by son son Medication Reconcilliation completed & Yes No provided to patient/care provider Clinical Summary of Care Provided Yes Yes Assessment/Plan Assessment/Plan (1) Diabetic foot ulcer associated with type 2 diabetes mellitus: CODE(S): E11.621 - Type 2 diabetes mellitus with foot ulcer; L97.509 - Non-pressure chronic ulcer of other part of unspecified foot with unspecified severity QUALIFIERS: Diabetic foot ulcer location: heel Laterality: left Non-pressure ulcer stage: with fat layer exposed Qualified Code(s): E11.621 - Type 2 diabetes mellitus with foot ulcer; L97.422 - Non-pressure chronic ulcer of left heel and midfoot with fat layer exposed (2) Hypertension: CODE(S): I10 - Essential (primary) hypertension (3) Hypothyroidism: CODE(S): E03.9 - Hypothyroidism, unspecified (4) Debility: CODE(S): R53.81 - Other malaise PLAN: Debridement performed today in clinic as annotated above. Naseem# 4 product 7 a 1.6 cm disc was applied after subcutaneous debridement, it was then covered with the wound veil and a thin layer of hydrogel, and secured with Steri-Strips, 50% of the product was used with 50% waste. Patient tolerated the procedure well. At home wound-care instructions: Leave the primary dressing in place for a week, may change the outer gauze dressing as needed. Compression: Double layer Tubigrip's Off-loading: The patient was instructed to avoid pressure and friction on the affected areas. Reposition every 2 hours at minimum. Avoid prolonged standing and/or dangling of legs. When seated, feet should be elevated at chest level. Frequent ambulation is encouraged. Did instruct patient to utilize her offloading boot as much as possible and to bring with her to her next visit Diet: Patient encouraged to increase protein intake while taking caution to avoid high carbohydrate and/or sugar intake. Patient is a non-smoker Labs/cultures/imaging: Cultures ordered and collected previously negative. Routine baseline lab work held will reevaluate if no improvement. Request prior imaging records including MRI and prior podiatry records. MRI was reviewed and was negative for osteomyelitis. Vascular studies held. Given the delayed wound healing and fact that she failed standard wound care with her being seen by podiatry for over a month and now at the wound healing center for 4 weeks, patient would benefit with an advanced skin substitute. She was approved for naseem, [place], and lurdesly a.m. Follow-up: Return to clinic in 1 week for re-evaluation. Return sooner or report to the emergency room should symptoms worsen, or new symptoms arise. This note was generated with [employer] dictation software. It may contain incorrect words, spelling, and punctuation that were not noted in checking the note before signing. I have spent 35 minutes today reviewing labs, records, and history. Time inclu citlalli coordinating care, interpretation of tests, and counseling the patient/family. This also includes time I spent with the patient for exam, treatment plan, and education as well as documenting clinical information in the electronic health record.
== END 2021-10-28 23:59 ==
LOC: WC 14:45
PROVIDERS: PCP Family Medicine; Visit Provider Nurse Practitioner Family
DX: E11.621 Type 2 diabetes mellitus with foot ulcer (principal); L97.422 Non-pressure chronic ulcer of left heel and midfoot with fat layer exposed; I10 Essential (primary) hypertension; R53.81 Other malaise
CPT/HCPCS: 15271; 15275; Q4160

== ENCOUNTER 2021-11-12 16:04 | Outpatient (CLI) | payer MEDICARE, SELFPAY ==
--- NOTE | 2021-11-12 16:25 | RAD_ITS ---
STUDY: X-RAY - LEFT FOOT CLINICAL: Female, 71 years old. Diabetic ulcer. TECHNIQUE: 3 view(s) of the foot. COMPARISON: None. FINDINGS: Osteopenia. Moderate arthrosis of the tibiotalar joint. Mild arthrosis of the subtalar joint. Mild arthrosis of the midfoot. Deformity of the distal aspect of the proximal phalanx of the fourth digit with no distal phalanx. Moderate arthrosis of the MTP and IP joints with hammertoe deformities. Marked AP valgus deformity. Diffuse soft tissue swelling. RAD/Foot min 3 Views IMPRESSION: Osteopenia with diffuse osteoarthritic changes as described. Pencil deformity of the distal aspect of the proximal phalanx of the fourth digit with no distal phalanx. Diffuse soft tissue swelling. Electronically Signed: Stanford Rubio MD at 10:14 EDT ,
== END 2021-11-12 23:59 | disposition home or self-care (01) ==
LOC: LAB 16:07 → RAD 16:12
PROVIDERS: PCP Family Medicine; Referring Provider Nurse Practitioner Family; Visit Provider Nurse Practitioner Family
DX: E11.621 Type 2 diabetes mellitus with foot ulcer (principal); L97.426 Non-pressure chronic ulcer of left heel and midfoot with bone involvement without evidence of necrosis; M19.072 Primary osteoarthritis, left ankle and foot
CPT/HCPCS: 73630

== ENCOUNTER 2021-11-28 15:15 | Outpatient (RCR) | payer MEDICARE, SELFPAY ==
[2021-10-29 00:19] VITALS: BP 181/76; PULSE 75; RESP 16; TEMP 36; BMI 28.6
[2021-10-31 15:18] VITALS: BP 140/69; PULSE 72; RESP 16; TEMP 36.3; BMI 28.6
--- NOTE | 2021-10-31 17:11 | PN.PCM_ITS ---
History of Present Illness Date of Service: 10/31/21 Chief Complaint: Diabetic foot ulcer left heel History of Wound: This is a 71-year-old white female who presents to the wound healing center today with complaint of diabetic foot ulcer to the left heel. She has a past medical history significant for type 2 diabetes mellitus (most recent A1c said to be 6), hypertension, hypothyroidism. The patient states that over the last 3 to 4 months she has had issues with a ulceration to her left heel. She has been following Dr. Shaver podiatry who has had patient in an offloading boot and patient said that she has been utilizing Silvadene as wound care covering with gauze. She states that her primary care did order an MRI of the heel as well which was said to be negative. She was placed on antibiotics at 1 point but states that she is no longer on these. She states that her wound does seem to be improving, however is improving slowly. She denies any purulent drainage or any systemic signs of infection such as fever or chills. She denies any other aggravating relieving factors. Past medical, family, and social history reviewed and not pertinent to the current visit and all other systems reviewed and negative with exception of those listed above. Progress of Wound: Diabetic foot ulcer to her left heel is stable, no new concerns doing well with [facility] Objective Data Objective Data Vital Signs: Vital Signs Temp Pulse Resp BP 97.4 F L 72 16 140/69 H 10/31/21 15:18 10/31/21 15:18 10/31/21 15:18 10/31/21 15:18 Weight: 172 lb Body Mass Index (BMI) 28.6 Charges/Coding Procedures Integumentary 150xxx-152xx: [id number] Skin sub graft face/nk/hf/g Physical Exam Const alert, oriented x3, no apparent distress, healthy appearing and well nourished General Appearance: cooperative Exam Limitations: no limitations HEENT normocephalic Head and Scalp: normal to inspection Mouth: oral and palatal mucosa normal Eyes General Eye: normal appearance of both eyes Resp normal respiratory effort, normal air movement and no use of accessory muscles Effort and Inspection: able to speak in complete sentences Auscultation: clear to auscultation bilaterally Cardio regular rate, regular rhythm, S1 normal heart sound, S2 normal heart sound, no murmurs and peripheral pulses 2+ throughout Palpation: normal PMI Rate: regular rate Heart Sounds: S1 normal and S2 normal GI normal to inspection, nondistended, normoactive bowel sounds, soft to palpation, non-tender and non-distended Palpation: soft Extremity normal to inspection and full ROM General Extremity: normal exam except as noted Skin Skin Narrative: Wound present to left heel with adherent slough and callused wound edges, no purulence or erythema or warmth noted at this time. Chronic venous changes present bilateral lower extremities and dorsal pedis pulses 2+ Neuro oriented x3 and moves all extremities Sensorium / Orientation: awake, alert, oriented to person, oriented to place and oriented to time Psych mental status grossly normal, thought process normal and denies hallucinations Appearance: grossly normal Attitude: calm Activity / Motor Behavior: appropriate eye contact Speech: normal speech Thought Process: normal thought process Thought Content: normal thought content Attention / Concentration: attention grossly intact Insight: insight good Judgement: judgement good Debridement Note Debridement Note Wound debrided: Left diabetic foot heel ulcer Laterality: Left Wound Grade/Stage: Santos 2 Type of Debridement: Excisional debridement Anesthesia Used: 4% Lidocaine Solution Depth: Down to and including healthy tissue and in the subcutaneous layer Percentage of wound debrided: 100 Instrument Used: 3mm curette Tissue Removed: Slough and devitalized tissue Severity: Fat Layer Exposed Amount of bleeding with debridement: Mild Bleeding Controlled with: Pressure Patient tolerated procedure: Patient tolerated procedure well Post-Debridement Measurements and Additional Note: Post-Debridement Measurements/Treatment - Nurse 1 - General Ulcer Assessment Start: 10/31/21 15:18 Freq: Status: Active Protocol: MAYO Activity Type Activity Date Activity User E-Sign Co-Sign Detail Recorded Client Recorded Date Recorded By Document 10/31/21 15:18 ML [id number] 10/31/21 15:20 ML 10/31/21 15:18 - Today's Visit Information Type of service Follow-up Visit (Physician/COPYWRITING INTERN ) Arrival Mode Ambulatory Transfer Assistance None Patient Identification Verified (Name & Yes ) Patient Requires Transmission-Based No Precautions Safety Precautions NA Height and Weight Body Mass Index (BMI) 28.6 BMI Classification Overweight Vital Signs Temperature (97.8 F-99.1 F) 97.4 F L Temperature Source Temporal Pulse Rate (60-100) 72 Pulse Location Monitor Respiratory Rate (12-18) 16 Respiratory rate source Observation Blood Pressure (90/60-120/80) 140/69 H Blood Pressure Mean (mm Hg) 92 Source Monitor Position Sitting Blood Pressure Location Left Arm History Since Last Visit- (Skip if this is Patient's initial visit) Have you changed medications since your Yes last visit? Any new allergies or adverse reactions No Had a fall/change in ADL's that may No increase risk of falls Signs or symptoms of abuse and/or No neglect since last visit Have you been in the hospital since your No last visit? Has dressing in place as prescribed Yes Has compression in place as prescribed Yes Has offloadiing in place as prescribed N/A Experienced any changes in pain level or No management Left Footwear Surgical Shoe with pressure relief insole Right Footwear Diabetic Shoe Pain Scale: 0-10 Numeric Is Patient Pain Free? Yes WC - Nurse 1 - General Ulcer Measurement Start: 10/31/21 15:18 Freq: Status: Active Protocol: Activity Type Activity Date Activity User E-Sign Co-Sign Detail Recorded Client Recorded Date Recorded By Document 10/31/21 15:18 ML [id number] 10/31/21 15:20 ML 10/31/21 15:18 Wound Center Nurse 1 #1- L HEEL -Current Size (cm) - Length 0.4 -Current Size (cm) - Width 0.3 -Current Size (cm) - Depth 0.1 -Total Square Cm 0.12 -Exudate Amt Small -Exudate Type Serosanguineous -Wound Margin Distinct, Outline Attached -Granulation Amt Small (1-33%) -Slough/Fibrin Yes -Necrosis Amt Small (1-33%) -Necrotic Tissue Type Adherent Slough -Texture (Mare-wound Skin Appearance) Assessed -Moisture (Mare-wound Skin Appearance) Assessed -Color (Mare-wound Skin Appearance) Assessed -Temperature (Mare-wound Skin No Abnormality Appearance) (Pt Warm) -Tenderness on Palpation (Mare-wound No Skin Appearance) -Ulcer Cleansing Rinsed/ Irrigated with Saline -Foul Odor after Cleansing No -Anesthetic Used 5% Lidocaine Gel WC - Nurse 2 - General Ulcer CM Notes Start: 10/31/21 15:18 Freq: Status: Active Protocol: Activity Type Activity Date Activity User E-Sign Co-Sign Detail Recorded Client Recorded Date Recorded By Document 10/31/21 15:43 MW [id number] 10/31/21 15:55 MW 10/31/21 15:43 Wound Center Nurse 2 -Time 15:43 -Correct Patient Yes -Correct Side, Site, Position Yes -Correct Procedure Yes -Procedure Performed Yes -Type of Procedure Debridement -Clinical Debridement Subcutaneous -Tissue Removed Subcutaneous -Post Debridement (cm) - Length 1.2 -Post Debridement (cm) - Width 0.9 -Post Debridement (cm) - Depth 0.1 -Total Square (Post) (cm) 1.08 -Area of Debridement (cm) - Length 1.2 -Area of Debridement (cm) - Width 0.9 -Total Square (Area) (cm) 1.08 -Tunneling No -Undermining/Tunneling No -Circular Undermining No -Wound/Ulcer Outcome Not Healed -Ulcer Cleansing Rinsed/ Irrigated with Saline -Foul Odor after Cleansing No -Bioengineered Tissue Yes -Type of Bioengineered Tissue NuShield Disc -Expiration Date 04/01/26 -Product Lot Number [id number] -Percent Used 100 -Lot number of Saline Used [id number] -Bleeding Controlled with Pressure -Offloading No -Treatment Response Procedure Tolerated Well -Debridement - Subq, 1st 20sq cm No -Apply Skin Sub - 1st 25 sq cm - Feet 1 -NuShield 16mm Disc 2 Pain Scale: 0-10 Numeric Is Patient Pain Free? Yes WC - Nurse 3 - General Ulcer D/C NN Start: 10/31/21 15:18 Freq: Status: Active Protocol: Activity Type Activity Date Activity User E-Sign Co-Sign Detail Recorded Client Recorded Date Recorded By Document 10/31/21 16:06 ML [id number] 10/31/21 16:06 ML 10/31/21 16:06 Wound Care Nurse 3 #1- L HEEL -Primary Dressing Covered/Secured with Dry Gauze & Roll Gauze, Secured with Tape -Other Covering nurse hat Pain Scale: 0-10 Numeric Is Patient Pain Free? Yes Assessment/Plan Assessment/Plan (1) Diabetic foot ulcer associated with type 2 diabetes mellitus: CODE(S): E11.621 - Type 2 diabetes mellitus with foot ulcer; L97.509 - Non-pressure chronic ulcer of other part of unspecified foot with unspecified severity QUALIFIERS: Diabetic foot ulcer location: heel Laterality: left Non-pressure ulcer stage: with fat layer exposed Qualified Code(s): E11.621 - Type 2 diabetes mellitus with foot ulcer; L97.422 - Non-pressure chronic ulcer of left heel and midfoot with fat layer exposed (2) Hypertension: CODE(S): I10 - Essential (primary) hypertension (3) Hypothyroidism: CODE(S): E03.9 - Hypothyroidism, unspecified (4) Debility: CODE(S): R53.81 - Other malaise PLAN: Debridement performed today in clinic as annotated above. [facility] product 8 a 1.6 cm disc was applied after subcutaneous debridement, it was then covered with the wound veil and a thin layer of hydrogel, and secured with Steri-Strips, 0% waste. Patient tolerated the procedure well. At home wound-care instructions: Leave the primary dressing in place for a week, may change the outer gauze dressing as needed. Compression: Double layer Tubigrip's Off-loading: The patient was instructed to avoid pressure and friction on the affected areas. Reposition every 2 hours at minimum. Avoid prolonged standing and/or dangling of legs. When seated, feet should be elevated at chest level. Frequent ambulation is encouraged. Did instruct patient to utilize her offloading boot as much as possible and to bring with her to her next visit Diet: Patient encouraged to increase protein intake while taking caution to avoid high carbohydrate and/or sugar intake. Patient is a non-smoker Labs/cultures/imaging: Cultures ordered and collected previously negative. Routine baseline lab work held will reevaluate if no improvement. Request prior imaging records including MRI and prior podiatry records. MRI was reviewed and was negative for osteomyelitis. Vascular studies held. Given the delayed wound healing and fact that she failed standard wound care with her being seen by podiatry for over a month and now at the wound healing center for 4 weeks, patient would benefit with an advanced skin substitute. She was approved for naseem, [place], and lurdesly a.m. Follow-up: Return to clinic in 1 week for re-evaluation. Return sooner or report to the emergency room should symptoms worsen, or new symptoms arise. This note was generated with [employer] dictation software. It may contain incorrect words, spelling, and punctuation that were not noted in checking the note before signing. I have spent 25 minutes today reviewing labs, records, and history. Time includes coordinating care, interpretation of tests, and counseling the patient/family. This also includes time I spent with the patient for exam, treatment plan, and education as well as documenting clinical information in the electronic health record.
--- NOTE | 2021-11-06 12:29 | WC ---
Wound culture results from 10/31/21 reviewed per Milad Saunders NP. Antibiotic called to patient pharmacy per Milad HUDSON. Patient notified. Voiced understanding.
[2021-11-07 14:35] VITALS: BP 139/68; PULSE 70; RESP 16; TEMP 36.1; BMI 28.6
--- NOTE | 2021-11-07 16:50 | PCM.WC.PN ---
History of Present Illness Date of Service: 11/07/21 Chief Complaint: Diabetic foot ulcer left heel History of Wound: This is a 71-year-old white female who presents to the wound healing center today with complaint of diabetic foot ulcer to the left heel. She has a past medical history significant for type 2 diabetes mellitus (most recent A1c said to be 6), hypertension, hypothyroidism. The patient states that over the last 3 to 4 months she has had issues with a ulceration to her left heel. She has been following Dr. Shaver podiatry who has had patient in an offloading boot and patient said that she has been utilizing Silvadene as wound care covering with gauze. She states that her primary care did order an MRI of the heel as well which was said to be negative. She was placed on antibiotics at 1 point but states that she is no longer on these. She states that her wound does seem to be improving, however is improving slowly. She denies any purulent drainage or any systemic signs of infection such as fever or chills. She denies any other aggravating relieving factors. Past medical, family, and social history reviewed and not pertinent to the current visit and all other systems reviewed and negative with exception of those listed above. Progress of Wound: The patient states that the nushield only stayed on for couple days and then fell off, she states that she noted more swelling in her ankle and noted more drainage from the wound. Her culture was reviewed and showed anaerobic bacteria and therefore she was started on Augmentin yesterday which she is tolerating well. The wound size has dramatically worsened due to the increase in drainage Objective Data Objective Data Vital Signs: Vital Signs Temp Pulse Resp BP 97.0 F L 70 16 139/68 H 11/07/21 14:35 11/07/21 14:35 11/07/21 14:35 11/07/21 14:35 Weight: 172 lb Body Mass Index (BMI) 28.6 Lab / Micro Data Micro: Microbiology 10/31/21 15:45 Wound Abcess - Heel, Left Gram Stain - Final 10/31/21 15:45 Wound Abcess - Heel, Left Wound Culture - Final Corynebacterium minutissimum 10/31/21 15:45 Wound Abcess - Heel, Left Anaerobic Culture - Final Fusobacterium nucleatum Actinomyces neuii Charges/Coding Procedures Integumentary 111xxx-113xx: [id number] Tasneem subq tissue 20 sq cm/< Physical Exam Const alert, oriented x3, no apparent distress, healthy appearing and well nourished General Appearance: cooperative Exam Limitations: no limitations HEENT normocephalic Head and Scalp: normal to inspection Mouth: oral and palatal mucosa normal Eyes General Eye: normal appearance of both eyes Resp normal respiratory effort, normal air movement and no use of accessory muscles Effort and Inspection: able to speak in complete sentences Auscultation: clear to auscultation bilaterally Cardio regular rate, regular rhythm, S1 normal heart sound, S2 normal heart sound, no murmurs and peripheral pulses 2+ throughout Palpation: normal PMI Rate: regular rate Heart Sounds: S1 normal and S2 normal GI normal to inspection, nondistended, normoactive bowel sounds, soft to palpation, non-tender and non-distended Palpation: soft Extremity normal to inspection and full ROM General Extremity: normal exam except as noted Skin Skin Narrative: Wound present to left heel with adherent slough and large amounts of clear drainage and macerated wound edges, no purulence or erythema or warmth noted at this time. Chronic venous changes present bilateral lower extremities and dorsal pedis pulses 2+ Neuro oriented x3 and moves all extremities Sensorium / Orientation: awake, alert, oriented to person, oriented to place and oriented to time Psych mental status grossly normal, thought process normal and denies hallucinations Appearance: grossly normal Attitude: calm Activity / Motor Behavior: appropriate eye contact Speech: normal speech Thought Process: normal thought process Thought Content: normal thought content Attention / Concentration: attention grossly intact Insight: insight good Judgement: judgement good Debridement Note Debridement Note Wound debrided: DFU left heel Laterality: Left Wound Grade/Stage: Santos 2 Type of Debridement: Excisional debridement Anesthesia Used: 5% Lidocaine Gel Depth: Down to and including healthy tissue and in the subcutaneous layer Percentage of wound debrided: 100 Instrument Used: 5mm curette Tissue Removed: Large amounts of slough and devitalized tissue Severity: Fat Layer Exposed Amount of bleeding with debridement: Mild Bleeding Controlled with: Pressure Patient tolerated procedure: Patient tolerated procedure well Post-Debridement Measurements and Additional Note: Post-Debridement Measurements/Treatment PALAK - Nurse 1 - General Ulcer Assessment Start: 10/31/21 15:18 Freq: Status: Active Protocol: MAYO Activity Type Activity Date Activity User E-Sign Co-Sign Detail Recorded Client Recorded Date Recorded By Document 10/31/21 15:18 ML [id number] 10/31/21 15:20 ML Document 11/07/21 14:35 ML [id number] 11/07/21 14:45 ML 10/31/21 11/07/21 15:18 14:35 WC - Today's Visit Information Type of service Follow-up Visit Follow-up Visit (Physician/INSULATION APPLICATOR (Physician/INSULATION APPLICATOR ) ) Arrival Mode Ambulatory Ambulatory Transfer Assistance None None Patient Identification Verified (Name & Yes Yes ) Patient Requires Transmission-Based No No Precautions Safety Precautions NA NA Height and Weight Body Mass Index (BMI) 28.6 28.6 BMI Classification Overweight Overweight Vital Signs Temperature (97.8 F-99.1 F) 97.4 F L 97.0 F L Temperature Source Temporal Temporal Pulse Rate (60-100) 72 70 Pulse Location Monitor Monitor Respiratory Rate (12-18) 16 16 Respiratory rate source Observation Observation Blood Pressure (90/60-120/80) 140/69 H 139/68 H Blood Pressure Mean (mm Hg) 92 91 Source Monitor Monitor Position Sitting Sitting Blood Pressure Location Left Arm Left Arm History Since Last Visit- (Skip if this is Patient's initial visit) Have you changed medications since your Yes No last visit? Any new allergies or adverse reactions No No Had a fall/change in ADL's that may No No increase risk of falls Signs or symptoms of abuse and/or No No neglect since last visit Have you been in the hospital since your No No last visit? Has dressing in place as prescribed Yes Yes Has compression in place as prescribed Yes Yes Has offloadiing in place as prescribed N/A N/A Experienced any changes in pain level or No No management Left Footwear Surgical Shoe Surgical Shoe with pressure with pressure relief insole relief insole Right Footwear Diabetic Shoe Regular Shoe Pain Scale: 0-10 Numeric Is Patient Pain Free? Yes Yes - Nurse 1 - General Ulcer Measurement Start: 10/31/21 15:18 Freq: Status: Active Protocol: Activity Type Activity Date Activity User E-Sign Co-Sign Detail Recorded Client Recorded Date Recorded By Document 10/31/21 15:18 ML [id number] 10/31/21 15:20 ML Document 11/07/21 14:35 ML [id number] 11/07/21 14:45 ML 10/31/21 11/07/21 15:18 14:35 Wound Center Nurse 1 #1- L HEEL -Current Size (cm) - Length 0.4 3 -Current Size (cm) - Width 0.3 1 -Current Size (cm) - Depth 0.1 0.1 -Total Square Cm 0.12 3 -Exudate Amt Small Large -Exudate Type Serosanguineous Serosanguineous -Wound Margin Distinct, Distinct, Outline Outline Attached Attached -Granulation Amt Small (1-33%) Small (1-33%) -Slough/Fibrin Yes Yes -Necrosis Amt Small (1-33%) Medium (34-66%) -Necrotic Tissue Type Adherent Slough Adherent Slough -Texture (Mare-wound Skin Appearance) Assessed -Moisture (Mare-wound Skin Appearance) Assessed Assessed -Color (Mare-wound Skin Appearance) Assessed Assessed -Temperature (Mare-wound Skin No Abnormality No Abnormality Appearance) (Pt Warm) (Pt Warm) -Tenderness on Palpation (Mare-wound No Yes Skin Appearance) -Ulcer Cleansing Rinsed/ Rinsed/ Irrigated with Irrigated with Saline Saline -Foul Odor after Cleansing No No -Anesthetic Used 5% Lidocaine 5% Lidocaine Gel Gel Left Calf (cm) 37.5 Left Ankle (cm) 24 WC - Nurse 2 - General Ulcer CM Notes Start: 10/31/21 15:18 Freq: Status: Active Protocol: Activity Type Activity Date Activity User E-Sign Co-Sign Detail Recorded Client Recorded Date Recorded By Document 10/31/21 15:43 MW [id number] 10/31/21 15:55 MW Document 11/07/21 15:02 MW [id number] 11/07/21 15:16 MW 10/31/21 11/07/21 15:43 15:02 Wound Center Nurse 2 #1- L HEEL -Time 15:43 15:02 -Correct Patient Yes Yes -Correct Side, Site, Position Yes Yes -Correct Procedure Yes Yes -Procedure Performed Yes Yes -Type of Procedure Debridement Debridement -Clinical Debridement Subcutaneous Subcutaneous -Tissue Removed Subcutaneous Subcutaneous -Post Debridement (cm) - Length 1.2 5.0 -Post Debridement (cm) - Width 0.9 4.5 -Post Debridement (cm) - Depth 0.1 0.1 -Total Square (Post) (cm) 1.08 22.50 -Area of Debridement (cm) - Length 1.2 5.0 -Area of Debridement (cm) - Width 0.9 4.5 -Total Square (Area) (cm) 1.08 22.50 -Tunneling No No -Undermining/Tunneling No No -Circular Undermining No No -Wound/Ulcer Outcome Not Healed Not Healed -Ulcer Cleansing Rinsed/ Rinsed/ Irrigated with Irrigated with Saline Saline -Foul Odor after Cleansing No No -Bioengineered Tissue Yes No -Type of Bioengineered Tissue NuShield Disc -Expiration Date 04/01/26 -Product Lot Number [id number] -Percent Used 100 -Lot number of Saline Used [id number] -Bleeding Controlled with Pressure Pressure -Offloading No No -Treatment Response Procedure Procedure Tolerated Well Tolerated Well -Debridement - Subq, 1st 20sq cm No Yes -Debridement, SubQ, ea addt'l 20sq cm 1 or part thereof -Apply Skin Sub - 1st 25 sq cm - Feet 1 -NuShield 16mm Disc 2 Pain Scale: 0-10 Numeric Is Patient Pain Free? Yes Yes WC - Nurse 3 - General Ulcer D/C NN Start: 10/31/21 15:18 Freq: Status: Active Protocol: Activity Type Activity Date Activity User E-Sign Co-Sign Detail Recorded Client Recorded Date Recorded By Document 10/31/21 16:06 ML [id number] 10/31/21 16:06 ML Document 11/07/21 15:21 ML [id number] 11/07/21 15:23 ML 10/31/21 11/07/21 16:06 15:21 Wound Care Nurse 3 #1- L HEEL -Ulcer Cleansing Rinsed/ Irrigated with Saline -Foul Odor after Cleansing No -Primary Dressing Applied Silvercel -Other Dressing abd,nurses hat -Primary Dressing Covered/Secured with Dry Gauze & Dry Gauze,Dry Roll Gauze, Gauze & Roll Secured with Gauze,Secured Tape with Tape -Other Covering nurse hat -Silvercel 2 Pain Scale: 0-10 Numeric Is Patient Pain Free? Yes Yes Assessment/Plan Assessment/Plan (1) Diabetic foot ulcer associated with type 2 diabetes mellitus: CODE(S): E11.621 - Type 2 diabetes mellitus with foot ulcer; L97.509 - Non-pressure chronic ulcer of other part of unspecified foot with unspecified severity QUALIFIERS: Diabetic foot ulcer location: heel Laterality: left Non-pressure ulcer stage: with fat layer exposed Qualified Code(s): E11.621 - Type 2 diabetes mellitus with foot ulcer; L97.422 - Non-pressure chronic ulcer of left heel and midfoot with fat layer exposed (2) Hypertension: CODE(S): I10 - Essential (primary) hypertension (3) Hypothyroidism: CODE(S): E03.9 - Hypothyroidism, unspecified (4) Debility: CODE(S): R53.81 - Other malaise PLAN: Debridement performed today in clinic as annotated above. Application of silver cell cover with gauze and nurses hat for protection. At home wound-care instructions: See above. Compression: Double layer Tubigrip's Off-loading: The patient was instructed to avoid pressure and friction on the affected areas. Reposition every 2 hours at minimum. Avoid prolonged standing and/or dangling of legs. When seated, feet should be elevated at chest level. Frequent ambulation is encouraged. Did instruct patient to utilize her offloading boot as much as possible and to bring with her to her next visit Diet: Patient encouraged to increase protein intake while taking caution to avoid high carbohydrate and/or sugar intake. Patient is a non-smoker Labs/cultures/imaging: Cultures ordered and read collected today given the patient's significant worsening wound size, she did have a culture last week which showed anaerobic bacteria and she was placed on Augmentin which she is tolerating.. Routine baseline lab work ordered. Request prior imaging records including MRI and prior podiatry records. MRI was reviewed and was negative for osteomyelitis. Given her worsening wound size, x-ray ordered today along with vascular studies . Given the delayed wound healing and fact that she failed standard wound care with her being seen by podiatry for over a month and now at the wound healing center for 4 weeks, patient would benefit with an advanced skin substitute. She was approved for [facility], [facility], and [facility] a.m. Follow-up: Return to clinic in 1 week for re-evaluation. Return sooner or report to the emergency room should symptoms worsen, or new symptoms arise. This note was generated with Dragon dictation software. It may contain incorrect words, spelling, and punctuation that were not noted in checking the note before signing. I have spent 25 minutes today reviewing labs, records, and history. Time includes coordinating care, interpretation of tests, and counseling the patient/family. This also includes time I spent with the patient for exam, treatment plan, and education as well as documenting clinical information in the electronic health record.
--- NOTE | 2021-11-12 08:53 | WC ---
Wound culture results from 11/07/21 reviewed per Milad Saunders NP. Doxycycline called in to [facility] pharmacy per Milad. Message left for patient.
--- NOTE | 2021-11-12 08:57 | WC ---
Wound Culture results from 11/07/21 reviewed per Maegan Saunders NP. Doxycycl[facility] sent in to [facility] per Milad HUDSON yesterday. Message left for patient.
[2021-11-14 15:05] VITALS: BP 103/56; PULSE 79; TEMP 36.6; BMI 28.6
--- NOTE | 2021-11-14 17:08 | PCM.WC.PN ---
History of Present Illness Date of Service: 11/14/21 Chief Complaint: Diabetic foot ulcer left heel History of Wound: This is a 71-year-old white female who presents to the wound healing center today with complaint of diabetic foot ulcer to the left heel. She has a past medical history significant for type 2 diabetes mellitus (most recent A1c said to be 6), hypertension, hypothyroidism. The patient states that over the last 3 to 4 months she has had issues with a ulceration to her left heel. She has been following Dr. Shaver podiatry who has had patient in an offloading boot and patient said that she has been utilizing Silvadene as wound care covering with gauze. She states that her primary care did order an MRI of the heel as well which was said to be negative. She was placed on antibiotics at 1 point but states that she is no longer on these. She states that her wound does seem to be improving, however is improving slowly. She denies any purulent drainage or any systemic signs of infection such as fever or chills. She denies any other aggravating relieving factors. Past medical, family, and social history reviewed and not pertinent to the current visit and all other systems reviewed and negative with exception of those listed above. Progress of Wound: Some improvement noted in size this week, patient has been more compliant with elevation and her son has been assisting with daily dressing changes. Her wound culture did show staph epidermidis which was most likely a skin contaminant however she was placed on doxycycline. Only tolerated the doxycycline for a couple days and nausea. Clinically the wound does not appear infected today and therefore her first application of Apligraf was applied today. 50% was wasted due to size of the wound. Objective Data Objective Data Vital Signs: Vital Signs Temp Pulse Resp BP 97.9 F 79 16 103/56 L 11/14/21 15:05 11/14/21 15:05 11/07/21 14:35 11/14/21 15:05 Weight: 172 lb Body Mass Index (BMI) 28.6 Lab / Micro Data Micro: Microbiology 11/07/21 15:10 Wound Abcess - Heel, Left Gram Stain - Final 11/07/21 15:10 Wound Abcess - Heel, Left Wound Culture - Final Staphylococcus epidermidis Staphylococcus auricularis 11/07/21 15:10 Wound Abcess - Heel, Left Anaerobic Culture - Final No anaerobic bacteria isolated. 10/31/21 15:45 Wound Abcess - Heel, Left Gram Stain - Final 10/31/21 15:45 Wound Abcess - Heel, Left Wound Culture - Final Corynebacterium minutissimum 10/31/21 15:45 Wound Abcess - Heel, Left Anaerobic Culture - Final Fusobacterium nucleatum Actinomyces neuii Charges/Coding Procedures Integumentary 150xxx-152xx: 09118 Skin sub graft face/nk/hf/g Physical Exam Const alert, oriented x3, no apparent distress, healthy appearing and well nourished General Appearance: cooperative Exam Limitations: no limitations HEENT normocephalic Head and Scalp: normal to inspection Mouth: oral and palatal mucosa normal Eyes General Eye: normal appearance of both eyes Resp normal respiratory effort, normal air movement and no use of accessory muscles Effort and Inspection: able to speak in complete sentences Auscultation: clear to auscultation bilaterally Cardio regular rate, regular rhythm, S1 normal heart sound, S2 normal heart sound, no murmurs and peripheral pulses 2+ throughout Palpation: normal PMI Rate: regular rate Heart Sounds: S1 normal and S2 normal GI normal to inspection, nondistended, normoactive bowel sounds, soft to palpation, non-tender and non-distended Palpation: soft Extremity normal to inspection and full ROM General Extremity: normal exam except as noted Skin Skin Narrative: Wound present to left heel with adherent slough and less drainage and maceration noted this week, no purulence or erythema or warmth noted at this time. Chronic venous changes present bilateral lower extremities and dorsal pedis pulses 2+ Neuro oriented x3 and moves all extremities Sensorium / Orientation: awake, alert, oriented to person, oriented to place and oriented to time Psych mental status grossly normal, thought process normal and denies hallucinations Appearance: grossly normal Attitude: calm Activity / Motor Behavior: appropriate eye contact Speech: normal speech Thought Process: normal thought process Thought Content: normal thought content Attention / Concentration: attention grossly intact Insight: insight good Judgement: judgement good Debridement Note Debridement Note Wound debrided: Diabetic ulcer left heel Laterality: Left Wound Grade/Stage: Santos 2 Type of Debridement: Excisional debridement Anesthesia Used: 5% Lidocaine Gel Depth: Down to and including healthy tissue and in the subcutaneous layer Percentage of wound debrided: 100 Instrument Used: 5mm curette Tissue Removed: Slough and devitalized tissue Severity: Fat Layer Exposed Amount of bleeding with debridement: Mild Bleeding Controlled with: Pressure Patient tolerated procedure: Patient tolerated procedure well Post-Debridement Measurements and Additional Note: Post-Debridement Measurements/Treatment - Nurse 1 - General Ulcer Assessment Start: 10/31/21 15:18 Freq: Status: Active Protocol: LOWEXT Activity Type Activity Date Activity User E-Sign Co-Sign Detail Recorded Client Recorded Date Recorded By Document 10/31/21 15:18 ML [id number] 10/31/21 15:20 ML Document 11/07/21 14:35 ML [id number] 11/07/21 14:45 ML Document 11/14/21 15:05 AK [id number] 11/14/21 15:07 AK 10/31/21 11/07/21 11/14/21 15:18 14:35 15:05 - Today's Visit Information Type of service Follow-up Visit Follow-up Visit Follow-up Visit (Physician/PARACHUTIST/COMBATANT DIVER QUALIFIED (Physician/PARACHUTIST/COMBATANT DIVER QUALIFIED (Physician/PARACHUTIST/COMBATANT DIVER QUALIFIED ) ) ) Arrival Mode Ambulatory Ambulatory Ambulatory Transfer Assistance None None Patient Identification Verified (Name & Yes Yes Yes ) Patient Requires Transmission-Based No No No Precautions Safety Precautions NA NA NA Height and Weight Body Mass Index (BMI) 28.6 28.6 28.6 BMI Classification Overweight Overweight Overweight Vital Signs Temperature (97.8 F-99.1 F) 97.4 F L 97.0 F L 97.9 F Temperature Source Temporal Temporal Temporal Pulse Rate (60-100) 72 70 79 Pulse Location Monitor Monitor Monitor Respiratory Rate (12-18) 16 16 Respiratory rate source Observation Observation Blood Pressure (90/60-120/80) 140/69 H 139/68 H 103/56 L Blood Pressure Mean (mm Hg) 92 91 71 Source Monitor Monitor Monitor Position Sitting Sitting Blood Pressure Location Left Arm Left Arm History Since Last Visit- (Skip if this is Patient's initial visit) Have you changed medications since your Yes No No last visit? Any new allergies or adverse reactions No No No Had a fall/change in ADL's that may No No No increase risk of falls Signs or symptoms of abuse and/or No No No neglect since last visit Have you been in the hospital since your No No No last visit? Has dressing in place as prescribed Yes Yes Yes Has compression in place as prescribed Yes Yes Yes Has offloadiing in place as prescribed N/A N/A N/A Experienced any changes in pain level or No No No management Left Footwear Surgical Shoe Surgical Shoe Surgical Shoe with pressure with pressure with pressure relief insole relief insole relief insole Right Footwear Diabetic Shoe Regular Shoe Regular Shoe Pain Scale: 0-10 Numeric Is Patient Pain Free? Yes Yes Yes WC - Nurse 1 - General Ulcer Measurement Start: 10/31/21 15:18 Freq: Status: Active Protocol: Activity Type Activity Date Activity User E-Sign Co-Sign Detail Recorded Client Recorded Date Recorded By Document 10/31/21 15:18 ML [id number] 10/31/21 15:20 ML Document 11/07/21 14:35 ML [id number] 11/07/21 14:45 ML Document 11/14/21 15:05 AK [id number] 11/14/21 15:07 AK 10/31/21 11/07/21 11/14/21 15:18 14:35 15:05 Wound Center Nurse 1 #1- L HEEL -Combined with other wound No -Current Size (cm) - Length 0.4 3 4 -Current Size (cm) - Width 0.3 1 1 -Current Size (cm) - Depth 0.1 0.1 0.1 -Total Square Cm 0.12 3 4 -Photo Taken No -Tunneling No -Undermining/Tunneling No -Circular Undermining No -Exudate Amt Small Large Medium -Exudate Type Serosanguineous Serosanguineous Serosanguineous -Wound Margin Distinct, Distinct, Distinct, Outline Outline Outline Attached Attached Attached -Granulation Amt Small (1-33%) Small (1-33%) Medium (34-66%) -Granulation Quality [place],Red -Slough/Fibrin Yes Yes Yes -Necrosis Amt Small (1-33%) Medium (34-66%) Medium (34-66%) -Necrotic Tissue Type Adherent Slough Adherent Slough Adherent Slough -Structure Exposed N/A -Texture (Mare-wound Skin Appearance) Assessed No Abnormality, Assessed -Moisture (Mare-wound Skin Appearance) Assessed Assessed No Abnormality, Assessed -Color (Mare-wound Skin Appearance) Assessed Assessed No Abnormality, Assessed -Temperature (Mare-wound Skin No Abnormality No Abnormality No Abnormality Appearance) (Pt Warm) (Pt Warm) (Pt Warm) -Tenderness on Palpation (Mare-wound No Yes No Skin Appearance) -Ulcer Cleansing Rinsed/ Rinsed/ Rinsed/ Irrigated with Irrigated with Irrigated with Saline Saline Saline -Foul Odor after Cleansing No No No -Anesthetic Used 5% Lidocaine 5% Lidocaine 4% Lidocaine Gel Gel Solution Lower Limb Edema Present No Left Calf (cm) 37.5 37 Left Ankle (cm) 24 24 WC - Nurse 2 - General Ulcer CM Notes Start: 10/31/21 15:18 Freq: Status: Active Protocol: Activity Type Activity Date Activity User E-Sign Co-Sign Detail Recorded Client Recorded Date Recorded By Document 10/31/21 15:43 MW [id number] 10/31/21 15:55 MW Document 11/07/21 15:02 MW [id number] 11/07/21 15:16 MW Document 11/14/21 15:39 MW [id number] 11/14/21 15:49 MW 10/31/21 11/07/21 11/14/21 15:43 15:02 15:39 Wound Center Nurse 2 #1- L HEEL -Time 15:43 15:02 15:39 -Correct Patient Yes Yes Yes -Correct Side, Site, Position Yes Yes Yes -Correct Procedure Yes Yes Yes -Procedure Performed Yes Yes Yes -Type of Procedure Debridement Debridement Debridement -Clinical Debridement Subcutaneous Subcutaneous Subcutaneous -Tissue Removed Subcutaneous Subcutaneous Subcutaneous -Post Debridement (cm) - Length 1.2 5.0 4.0 -Post Debridement (cm) - Width 0.9 4.5 4.0 -Post Debridement (cm) - Depth 0.1 0.1 0.2 -Total Square (Post) (cm) 1.08 22.50 16.00 -Area of Debridement (cm) - Length 1.2 5.0 4.0 -Area of Debridement (cm) - Width 0.9 4.5 4.0 -Total Square (Area) (cm) 1.08 22.50 16.00 -Tunneling No No No -Undermining/Tunneling No No No -Circular Undermining No No No -Wound/Ulcer Outcome Not Healed Not Healed Not Healed -Ulcer Cleansing Rinsed/ Rinsed/ Rinsed/ Irrigated with Irrigated with Irrigated with Saline Saline Saline -Foul Odor after Cleansing No No No -Bioengineered Tissue Yes No Yes -Type of Bioengineered Tissue NuShield Disc Apligraf -Expiration Date 04/01/26 11/23/21 -Product Lot Number [id number] -Percent Used 100 50 -Lot number of Saline Used [id number] -Bleeding Controlled with Pressure Pressure Pressure -Treatment Response Procedure Procedure Procedure Tolerated Well Tolerated Well Tolerated Well -Offloading No No No -Debridement - Subq, 1st 20sq cm No Yes No -Debridement, SubQ, ea addt'l 20sq cm 1 or part thereof -Apply Skin Sub - 1st 25 sq cm - Feet 1 1 -Apligraf (per sq cm) 44 -NuShield 16mm Disc 2 Pain Scale: 0-10 Numeric Is Patient Pain Free? Yes Yes Yes WC - Nurse 3 - General Ulcer D/C NN Start: 10/31/21 15:18 Freq: Status: Active Protocol: Activity Type Activity Date Activity User E-Sign Co-Sign Detail Recorded Client Recorded Date Recorded By Document 10/31/21 16:06 ML [id number] 10/31/21 16:06 ML Document 11/07/21 15:21 ML [id number] 11/07/21 15:23 ML Document 11/14/21 15:56 ML [id number] 11/14/21 15:58 ML 10/31/21 11/07/21 11/14/21 16:06 15:21 15:56 Wound Care Nurse 3 #1- L HEEL -Ulcer Cleansing Rinsed/ Irrigated with Saline -Foul Odor after Cleansing No -Primary Dressing Applied Silvercel Aquacel AG 4x4 -Other Dressing abd,nurses hat nurses hat, -Primary Dressing Covered/Secured with Dry Gauze & Dry Gauze,Dry Roll Gauze, Gauze & Roll Secured with Gauze,Secured Tape with Tape -Other Covering nurse hat -Aquacel AG 4x4 1 -Silvercel 2 Left -Multi-Layered Wrap Application Unna Boot - Bilateral ($) -Unna Boots (Bilat) ($) 2 -Tubular Bandage Double Layer -Size of Tubigrip Used Size E -Size E ($) 2 -Other omar Pain Scale: 0-10 Numeric Is Patient Pain Free? Yes Yes Yes WC - Visit Discharge Discharge Condition Stable Transportation Private Auto Medication Reconcilliation completed & No provided to patient/care provider Clinical Summary of Care Provided Yes Assessment/Plan Assessment/Plan (1) Diabetic foot ulcer associated with type 2 diabetes mellitus: CODE(S): E11.621 - Type 2 diabetes mellitus with foot ulcer; L97.509 - Non-pressure chronic ulcer of other part of unspecified foot with unspecified severity QUALIFIERS: Diabetic foot ulcer location: heel Laterality: left Non-pressure ulcer stage: with fat layer exposed Qualified Code(s): E11.621 - Type 2 diabetes mellitus with foot ulcer; L97.422 - Non-pressure chronic ulcer of left heel and midfoot with fat layer exposed (2) Hypertension: CODE(S): I10 - Essential (primary) hypertension (3) Hypothyroidism: CODE(S): E03.9 - Hypothyroidism, unspecified (4) Debility: CODE(S): R53.81 - Other malaise PLAN: Debridement performed today in clinic as annotated above. First application of Apligraf was applied today. 50% was wasted due to wound size. It was secured with wound veil and Steri-Strips and may have daily to every other day dressing changes of Aquacel extra cover with gauze and nurses hat for protection. At home wound-care instructions: See above. Compression: Double layer Tubigrip's Off-loading: The patient was instructed to avoid pressure and friction on the affected areas. Reposition every 2 hours at minimum. Avoid prolonged standing and/or dangling of legs. When seated, feet should be elevated at chest level. Frequent ambulation is encouraged. Did instruct patient to utilize her offloading boot as much as possible and to bring with her to her next visit Diet: Patient encouraged to increase protein intake while taking caution to avoid high carbohydrate and/or sugar intake. Patient is a non-smoker Labs/cultures/imaging: Patient tolerated only a couple days with the doxycycline due to her staph epidermidis, currently does not appear infected continue holding off on any further antibiotics. Routine baseline lab work ordered. Request prior imaging records including MRI and prior podiatry records. MRI was reviewed and was negative for osteomyelitis. Given her worsening wound size, x-ray ordered previously and showed chronic arthritic changes no concern for osteomyelitis. Given the delayed wound healing and fact that she failed standard wound care with her being seen by podiatry for over a month and now at the wound healing center for 4 weeks, patient would benefit with an advanced skin substitute. Given her recent significant worsening of wound size due to her increase in swelling and fluid retention, would benefit from additional applications of Apligraf. Follow-up: Return to clinic in 1 week for re-evaluation. Return sooner or report to the emergency room should symptoms worsen, or new symptoms arise. This note was generated with [employer] dictation software. It may contain incorrect words, spelling, and punctuation that were not noted in checking the note before signing. I have spent 25 minutes today reviewing labs, records, and history. Time includes coordinating care, interpretation of tests, and counseling the patient/family. This also includes time I spent with the patient for exam, treatment plan, and education as well as documenting clinical information in the electronic health record.
[2021-11-20 17:00] LABS: Absolute Lymphocyte Count 1.62 X10^3/uL (0.83-4.51); Absolute Neutrophil Count 4.4 X10^3/uL (2.0-7.7); Basophil# 0.04 X10^3/uL; Basophil% 0.6 % (0-1); Eosinophil# 0.07 X10^3/uL; Hematocrit 39.7 % (37-47); Hemoglobin 14.4 g/dL (12.0-15.0); Lymphocyte # 1.62 X10^3/ul (0.83-4.51); Mean Corp Hgb Conc 36.3 g/dL (32-36); Mean Corpuscular Hgb 29.9 pg (27.0-32.0); Mean Corpuscular Volume 82.5 fL (81-99); Mean Platelet Vol. 9.6 fl (6.2-12.0); Monocyte% 8.9 % (0-10); NRBC Flagged by Analyzer 0 % (0-5); Neutrophil # 4.42 X10^3/uL (2.7-7.7); Neutrophil % 65.4 % (47-70); Platelet Count 231 K/mm3 (150-450); RBC Distribution Width CV 11.4 % (11.6-14.6); RBC Distribution Width SD 34.5 fl (35.1-43.9); Red Blood Count 4.81 M/mm3 (4.2-5.4); White Blood Count 6.8 K/mm3 (4.4-11.0)
[2021-11-20 17:07] LABS: Hemoglobin A1c 7.7 % (3.8-5.6)
[2021-11-20 17:17] LABS: Erythrocyte Sedimentation Rate 30 mm/hr (0-30)
[2021-11-20 17:37] LABS: AST(SGOT) 15 U/L (15-37); Alanine Aminotransfer ALT/SGPT 15 U/L (13-56); Albumin, Serum 3.7 g/dL (3.2-5.0); Alkaline Phosphatase 75 U/L (45-117); Anion Gap 6 (5-15); BUN 17 mg/dL (7-18); BUN/Creat Ratio 20.7 RATIO (10-20); CRP 5.93 mg/L (0.0-3.0); Calcium,Total 9.4 mg/dL (8.5-10.1); Chloride 85 mmol/L (98-107); Creatinine, Serum 0.82 mg/dL (0.55-1.02); EST Glomerular Filtration Rate 72 mL/min (>60); Est Glom Filt Rate - Afr Amer 87 mL/min (>60); Estimated Creatinine Clearance 54.98 ml/min; Globulin 3.6 g/dL (2.2-4.2); Glucose 165 mg/dL (74-106); Potassium 3.3 mmol/L (3.5-5.1); Prealbumin 20.3 mg/dL (20.0-40.0); Protein, Total 7.3 g/dL (6.4-8.2); Sodium Level 127 mmol/L (136-145)
[2021-11-21 15:07] VITALS: BP 151/74; PULSE 88; RESP 18; TEMP 36.1; BMI 28.6
--- NOTE | 2021-11-21 17:57 | PN.PCM_ITS ---
History of Present Illness Date of Service: 11/21/21 Chief Complaint: Diabetic foot ulcer left heel History of Wound: This is a 71-year-old white female who presents to the wound healing center today with complaint of diabetic foot ulcer to the left heel. She has a past medical history significant for type 2 diabetes mellitus (most recent A1c said to be 6), hypertension, hypothyroidism. The patient states that over the last 3 to 4 months she has had issues with a ulceration to her left heel. She has been following Dr. Shaver podiatry who has had patient in an offloading boot and patient said that she has been utilizing Silvadene as wound care covering with gauze. She states that her primary care did order an MRI of the heel as well which was said to be negative. She was placed on antibiotics at 1 point but states that she is no longer on these. She states that her wound does seem to be improving, however is improving slowly. She denies any purulent drainage or any systemic signs of infection such as fever or chills. She denies any other aggravating relieving factors. Past medical, family, and social history reviewed and not pertinent to the current visit and all other systems reviewed and negative with exception of those listed above. Progress of Wound: Some improvement noted in size this week, patient has been more compliant with elevation and her son has been assisting with daily dressing changes. Her wound culture did show staph epidermidis which was most likely a skin contaminant however she was placed on doxycycline. Only tolerated the doxycycline for a couple days due to nausea. Clinically the wound does not appear infected today and therefore her second application of Apligraf was applied today. 50% was wasted due to size of the wound. Given the fact that her wound significantly deteriorated in size 2 weeks ago due to her other comorbidities, do feel that patient would benefit from additional applications of Apligraf. Recent lab work was reviewed and showed a low prealbumin at 20, patient was encouraged to increase her protein. Patient also had multiple electrolyte abnormalities including potassium 3.3 and sodium of 127, her PCP is currently following up with this and she is holding her HCTZ. CRP was also slightly elevated at 5.93. Objective Data Objective Data Vital Signs: Vital Signs Temp Pulse Resp BP 97.0 F L 88 18 151/74 H 11/21/21 15:07 11/21/21 15:07 11/21/21 15:07 11/21/21 15:07 Weight: 172 lb Body Mass Index (BMI) 28.6 Lab / Micro Data Result Diagrams: 11/20/21 16:24 11/20/21 16:24 Micro: Microbiology 11/07/21 15:10 Wound Abcess - Heel, Left Gram Stain - Final 11/07/21 15:10 Wound Abcess - Heel, Left Wound Culture - Final Staphylococcus epidermidis Staphylococcus auricularis 11/07/21 15:10 Wound Abcess - Heel, Left Anaerobic Culture - Final No anaerobic bacteria isolated. 10/31/21 15:45 Wound Abcess - Heel, Left Gram Stain - Final 10/31/21 15:45 Wound Abcess - Heel, Left Wound Culture - Final Corynebacterium minutissimum 10/31/21 15:45 Wound Abcess - Heel, Left Anaerobic Culture - Final Fusobacterium nucleatum Actinomyces neuii Charges/Coding Procedures Integumentary 150xxx-152xx: [id number] Skin sub graft face/nk/hf/g Physical Exam Const alert, oriented x3, no apparent distress, healthy appearing and well nourished General Appearance: cooperative Exam Limitations: no limitations HEENT normocephalic Head and Scalp: normal to inspection Mouth: oral and palatal mucosa normal Eyes General Eye: normal appearance of both eyes Resp normal respiratory effort, normal air movement and no use of accessory muscles Effort and Inspection: able to speak in complete sentences Auscultation: clear to auscultation bilaterally Cardio regular rate, regular rhythm, S1 normal heart sound, S2 normal heart sound, no murmurs and peripheral pulses 2+ throughout Palpation: normal PMI Rate: regular rate Heart Sounds: S1 normal and S2 normal GI normal to inspection, nondistended, normoactive bowel sounds, soft to palpation, non-tender and non-distended Palpation: soft Extremity normal to inspection and full ROM General Extremity: normal exam except as noted Skin Skin Narrative: Wound present to left heel with adherent slough and less drainage and maceration noted this week, no purulence or erythema or warmth noted at this time. Chronic venous changes present bilateral lower extremities and dorsal pedis pulses 2+ Neuro oriented x3 and moves all extremities Sensorium / Orientation: awake, alert, oriented to person, oriented to place and oriented to time Psych mental status grossly normal, thought process normal and denies hallucinations Appearance: grossly normal Attitude: calm Activity / Motor Behavior: appropriate eye contact Speech: normal speech Thought Process: normal thought process Thought Content: normal thought content Attention / Concentration: attention grossly intact Insight: insight good Judgement: judgement good Debridement Note Debridement Note Wound debrided: Left heel diabetic foot ulcer Laterality: Left Wound Grade/Stage: Santos 2 Type of Debridement: Excisional debridement Anesthesia Used: 5% Lidocaine Gel Depth: Down to and including healthy tissue and in the subcutaneous layer Percentage of wound debrided: 100 Instrument Used: 5mm curette Tissue Removed: Slough and devitalized tissue Severity: Fat Layer Exposed Amount of bleeding with debridement: Mild Bleeding Controlled with: Pressure Patient tolerated procedure: Patient tolerated procedure well Post-Debridement Measurements and Additional Note: Post-Debridement Measurement s/Treatment - Nurse 1 - General Ulcer Assessment Start: 10/31/21 15:18 Freq: Status: Active Protocol: MAYO Activity Type Activity Date Activity User E-Sign Co-Sign Detail Recorded Client Recorded Date Recorded By Document 10/31/21 15:18 ML [id number] 10/31/21 15:20 ML Document 11/07/21 14:35 ML [id number] 11/07/21 14:45 ML Document 11/14/21 15:05 AK [id number] 11/14/21 15:07 AK Document 11/21/21 15:07 ML [id number] 11/21/21 15:16 ML 10/31/21 11/07/21 11/14/21 15:18 14:35 15:05 - Today's Visit Information Type of service Follow-up Visit Follow-up Visit Follow-up Visit (Physician/KNITTING MACHINE OPERATOR HELPER (Physician/KNITTING MACHINE OPERATOR HELPER (Physician/KNITTING MACHINE OPERATOR HELPER ) ) ) Arrival Mode Ambulatory Ambulatory Ambulatory Transfer Assistance None None Patient Identification Verified (Name & Yes Yes Yes ) Patient Requires Transmission-Based No No No Precautions Safety Precautions NA NA NA Height and Weight Body Mass Index (BMI) 28.6 28.6 28.6 BMI Classification Overweight Overweight Overweight Vital Signs Temperature (97.8 F-99.1 F) 97.4 F L 97.0 F L 97.9 F Temperature Source Temporal Temporal Temporal Pulse Rate (60-100) 72 70 79 Pulse Location Monitor Monitor Monitor Respiratory Rate (12-18) 16 16 Respiratory rate source Observation Observation Blood Pressure (90/60-120/80) 140/69 H 139/68 H 103/56 L Blood Pressure Mean (mm Hg) 92 91 71 Source Monitor Monitor Monitor Position Sitting Sitting Blood Pressure Location Left Arm Left Arm History Since Last Visit- (Skip if this is Patient's initial visit) Have you changed medications since your Yes No No last visit? Any new allergies or adverse reactions No No No Had a fall/change in ADL's that may No No No increase risk of falls Signs or symptoms of abuse and/or No No No neglect since last visit Have you been in the hospital since your No No No last visit? Has dressing in place as prescribed Yes Yes Yes Has compression in place as prescribed Yes Yes Yes Has offloadiing in place as prescribed N/A N/A N/A Experienced any changes in pain level or No No No management Left Footwear Surgical Shoe Surgical Shoe Surgical Shoe with pressure with pressure with pressure relief insole relief insole relief insole Right Footwear Diabetic Shoe Regular Shoe Regular Shoe Pain Scale: 0-10 Numeric Is Patient Pain Free? Yes Yes Yes 11/21/21 15:07 WC - Today's Visit Information Type of service Follow-up Visit (Physician/KNITTING MACHINE OPERATOR HELPER ) Arrival Mode Ambulatory Transfer Assistance None Patient Identification Verified (Name & Yes ) Patient Requires Transmission-Based No Precautions Safety Precautions NA Height and Weight Body Mass Index (BMI) 28.6 BMI Classification Overweight Vital Signs Temperature (97.8 F-99.1 F) 97.0 F L Temperature Source Temporal Pulse Rate (60-100) 88 Pulse Location Monitor Respiratory Rate (12-18) 18 Respiratory rate source Observation Blood Pressure (90/60-120/80) 151/74 H Blood Pressure Mean (mm Hg) 99 Source Monitor Position Sitting Blood Pressure Location Left Arm History Since Last Visit- (Skip if this is Patient's initial visit) Have you changed medications since your No last visit? Any new allergies or adverse reactions No Had a fall/change in ADL's that may No increase risk of falls Signs or symptoms of abuse and/or No neglect since last visit Have you been in the hospital since your No last visit? Has dressing in place as prescribed Yes Has compression in place as prescribed N/A Has offloadiing in place as prescribed N/A Experienced any changes in pain level or No management Left Footwear Surgical Shoe with pressure relief insole Right Footwear Regular Shoe Pain Scale: 0-10 Numeric Is Patient Pain Free? Yes WC - Nurse 1 - General Ulcer Measurement Start: 10/31/21 15:18 Freq: Status: Active Protocol: Activity Type Activity Date Activity User E-Sign Co-Sign Detail Recorded Client Recorded Date Recorded By Document 10/31/21 15:18 ML [id number] 10/31/21 15:20 ML Document 11/07/21 14:35 ML [id number] 11/07/21 14:45 ML Document 11/14/21 15:05 AK [id number] 11/14/21 15:07 AK Document 11/21/21 15:07 ML [id number] 11/21/21 15:16 ML 10/31/21 11/07/21 11/14/21 15:18 14:35 15:05 Wound Center Nurse 1 #1- L HEEL -Combined with other wound No -Current Size (cm) - Length 0.4 3 4 -Current Size (cm) - Width 0.3 1 1 -Current Size (cm) - Depth 0.1 0.1 0.1 -Total Square Cm 0.12 3 4 -Photo Taken No -Tunneling No -Undermining/Tunneling No -Circular Undermining No -Exudate Amt Small Large Medium -Exudate Type Serosanguineous Serosanguineous Serosanguineous -Wound Margin Distinct, Distinct, Distinct, Outline Outline Outline Attached Attached Attached -Granulation Amt Small (1-33%) Small (1-33%) Medium (34-66%) -Granulation Quality [place],Red -Slough/Fibrin Yes Yes Yes -Necrosis Amt Small (1-33%) Medium (34-66%) Medium (34-66%) -Necrotic Tissue Type Adherent Slough Adherent Slough Adherent Slough -Structure Exposed N/A -Texture (Mare-wound Skin Appearance) Assessed No Abnormality, Assessed -Moisture (Mare-wound Skin Appearance) Assessed Assessed No Abnormality, Assessed -Color (Mare-wound Skin Appearance) Assessed Assessed No Abnormality, Assessed -Temperature (Mare-wound Skin No Abnormality No Abnormality No Abnormality Appearance) (Pt Warm) (Pt Warm) (Pt Warm) -Tenderness on Palpation (Mare-wound No Yes No Skin Appearance) -Ulcer Cleansing Rinsed/ Rinsed/ Rinsed/ Irrigated with Irrigated with Irrigated with Saline Saline Saline -Foul Odor after Cleansing No No No -Anesthetic Used 5% Lidocaine 5% Lidocaine 4% Lidocaine Gel Gel Solution Lower Limb Edema Present No Left Calf (cm) 37.5 37 Left Ankle (cm) 24 24 11/21/21 15:07 Wound Center Nurse 1 #1- L HEEL -Combined with other wound -Current Size (cm) - Length 3 -Current Size (cm) - Width 2.5 -Current Size (cm) - Depth 0.1 -Total Square Cm 7.5 -Photo Taken -Tunneling -Undermining/Tunneling -Circular Undermining -Exudate Amt Medium -Exudate Type Serous -Wound Margin Distinct, Outline Attached -Granulation Amt Medium (34-66%) -Granulation Quality -Slough/Fibrin -Necrosis Amt Medium (34-66%) -Necrotic Tissue Type Adherent Slough -Structure Exposed -Texture (Mare-wound Skin Appearance) Assessed -Moisture (Mare-wound Skin Appearance) Assessed -Color (Mare-wound Skin Appearance) Assessed -Temperature (Mare-wound Skin No Abnormality Appearance) (Pt Warm) -Tenderness on Palpation (Mare-wound No Skin Appearance) -Ulcer Cleansing Rinsed/ Irrigated with Saline -Foul Odor after Cleansing No -Anesthetic Used 5% Lidocaine Gel Lower Limb Edema Present Left Calf (cm) Left Ankle (cm) WC - Nurse 2 - General Ulcer CM Notes Start: 10/31/21 15:18 Freq: Status: Active Protocol: Activity Type Activity Date Activity User E-Sign Co-Sign Detail Recorded Client Recorded Date Recorded By Document 10/31/21 15:43 MW [id number] 10/31/21 15:55 MW Document 11/07/21 15:02 MW [id number] 11/07/21 15:16 MW Document 11/14/21 15:39 MW [id number] 11/14/21 15:49 MW Document 11/21/21 15:44 MW [id number] 11/21/21 15:58 MW 10/31/21 11/07/21 11/14/21 15:43 15:02 15:39 Wound Center Nurse 2 #1- L HEEL -Time 15:43 15:02 15:39 -Correct Patient Yes Yes Yes -Correct Side, Site, Position Yes Yes Yes -Correct Procedure Yes Yes Yes -Procedure Performed Yes Yes Yes -Type of Procedure Debridement Debridement Debridement -Clinical Debridement Subcutaneous Subcutaneous Subcutaneous -Tissue Removed Subcutaneous Subcutaneous Subcutaneous -Post Debridement (cm) - Length 1.2 5.0 4.0 -Post Debridement (cm) - Width 0.9 4.5 4.0 -Post Debridement (cm) - Depth 0.1 0.1 0.2 -Total Square (Post) (cm) 1.08 22.50 16.00 -Area of Debridement (cm) - Length 1.2 5.0 4.0 -Area of Debridement (cm) - Width 0.9 4.5 4.0 -Total Square (Area) (cm) 1.08 22.50 16.00 -Tunneling No No No -Undermining/Tunneling No No No -Circular Undermining No No No -Wound/Ulcer Outcome Not Healed Not Healed Not Healed -Ulcer Cleansing Rinsed/ Rinsed/ Rinsed/ Irrigated with Irrigated with Irrigated with Saline Saline Saline -Foul Odor after Cleansing No No No -Bioengineered Tissue Yes No Yes -Type of Bioengineered Tissue NuShield Disc Apligraf -Expiration Date 04/01/26 11/23/21 -Product Lot Number [id number] -Percent Used 100 50 -Lot number of Saline Used [id number] -Bleeding Controlled with Pressure Pressure Pressure -Treatment Response Procedure Procedure Procedure Tolerated Well Tolerated Well Tolerated Well -Offloading No No No -Debridement - Subq, 1st 20sq cm No Yes No -Debridement, SubQ, ea addt'l 20sq cm 1 or part thereof -Apply Skin Sub - 1st 25 sq cm - Feet 1 1 -Apligraf (per sq cm) 44 -NuShield 16mm Disc 2 Pain Scale: 0-10 Numeric Is Patient Pain Free? Yes Yes Yes 11/21/21 15:44 Wound Center Nurse 2 #1- L HEEL -Time 15:46 -Correct Patient Yes -Correct Side, Site, Position Yes -Correct Procedure Yes -Procedure Performed Yes -Type of Procedure Debridement -Clinical Debridement Subcutaneous -Tissue Removed Subcutaneous -Post Debridement (cm) - Length 3.5 -Post Debridement (cm) - Width 3.0 -Post Debridement (cm) - Depth 0.2 -Total Square (Post) (cm) 10.50 -Area of Debridement (cm) - Length 3.5 -Area of Debridement (cm) - Width 3.0 -Total Square (Area) (cm) 10.50 -Tunneling No -Undermining/Tunneling No -Circular Undermining No -Wound/Ulcer Outcome Not Healed -Ulcer Cleansing Rinsed/ Irrigated with Saline -Foul Odor after Cleansing No -Bioengineered Tissue Yes -Type of Bioengineered Tissue Apligraf -Expiration Date 12/03/21 -Product Lot Number [id number] -Percent Used 50 -Lot number of Saline Used [id number] -Bleeding Controlled with Pressure -Treatment Response Procedure Tolerated Well -Offloading No -Debridement - Subq, 1st 20sq cm No -Debridement, SubQ, ea addt'l 20sq cm or part thereof -Apply Skin Sub - 1st 25 sq cm - Feet 1 -Apligraf (per sq cm) 44 -[facility] Pain Scale: 0-10 Numeric Is Patient Pain Free? Yes WC - Nurse 3 - General Ulcer D/C NN Start: 10/31/21 15:18 Freq: Status: Active Protocol: Activity Type Activity Date Activity User E-Sign Co-Sign Detail Recorded Client Recorded Date Recorded By Document 10/31/21 16:06 ML [id number] 10/31/21 16:06 ML Document 11/07/21 15:21 ML [id number] 11/07/21 15:23 ML Document 11/14/21 15:56 ML [id number] 11/14/21 15:58 ML Document 11/21/21 16:05 AK [id number] 11/21/21 16:06 AK Document 11/21/21 16:09 AK [id number] 11/21/21 16:10 AK 10/31/21 11/07/21 11/14/21 16:06 15:21 15:56 Wound Care Nurse 3 #1- L HEEL -Ulcer Cleansing Rinsed/ Irrigated with Saline -Foul Odor after Cleansing No -Negative Pressure Wound Therapy -Primary Dressing Applied Silvercel Aquacel AG 4x4 -Other Dressing abd,nurses hat nurses hat, -Primary Dressing Covered/Secured with Dry Gauze & Dry Gauze,Dry Roll Gauze, Gauze & Roll Secured with Gauze,Secured Tape with Tape -Other Covering nurse hat -Aquacel Extra -Aquacel AG 4x4 1 -Silvercel 2 Left -Lotion applied to leg before compression wrap -Multi-Layered Wrap Application Unna Boot - Bilateral ($) -Compression Wrap -Unna Boots (Bilat) ($) 2 -Tubular Bandage Double Layer -Size of Tubigrip Used Size E -Size E ($) 2 -Other marco Pain Scale: 0-10 Numeric Is Patient Pain Free? Yes Yes Yes WC - Visit Discharge Discharge Condition Stable Ambulatory Status Transportation Private Auto Accompanied by Medication Reconcilliation completed & No provided to patient/care provider Clinical Summary of Care Provided Yes 11/21/21 11/21/21 16:05 16:09 Wound Care Nurse 3 #1- L HEEL -Ulcer Cleansing -Foul Odor after Cleansing No -Negative Pressure Wound Therapy N/A -Primary Dressing Applied Aquacel Extra -Other Dressing -Primary Dressing Covered/Secured with Dry Gauze & Roll Gauze, Secured with Tape -Other Covering -Aquacel Extra 1 -Aquacel AG 4x4 -Silvercel Left -Lotion applied to leg before No compression wrap -Multi-Layered Wrap Application -Compression Wrap Marco Wrap -Unna Boots (Bilat) ($) -Tubular Bandage Double Layer -Size of Tubigrip Used Size E -Size E ($) 2 -Other Pain Scale: 0-10 Numeric Is Patient Pain Free? Yes Yes WC - Visit Discharge Discharge Condition Stable Ambulatory Status Ambulatory Transportation Private Auto Accompanied by son Medication Reconcilliation completed & Yes provided to patient/care provider Clinical Summary of Care Provided Yes Assessment/Plan Assessment/Plan (1) Diabetic foot ulcer associated with type 2 diabetes mellitus: CODE(S): E11.621 - Type 2 diabetes mellitus with foot ulcer; L97.509 - Non-pressure chronic ulcer of other part of unspecified foot with unspecified severity QUALIFIERS: Diabetic foot ulcer location: heel Laterality: left Non-pressure ulcer stage: with fat layer exposed Qualified Code(s): E11.621 - Type 2 diabetes mellitus with foot ulcer; L97.422 - Non-pressure chronic ulcer of left heel and midfoot with fat layer exposed (2) Hypertension: CODE(S): I10 - Essential (primary) hypertension (3) Hypothyroidism: CODE(S): E03.9 - Hypothyroidism, unspecified (4) Debility: CODE(S): R53.81 - Other malaise PLAN: Debridement performed today in clinic as annotated above. second application of Apligraf was applied today. 50% was wasted due to wound size. It was secured with wound veil and Steri-Strips and may have daily to every other day dressing changes of Aquacel extra cover with gauze and nurses hat for protection. At home wound-care instructions: See above. Compression: Double layer Tubigrip's Off-loading: The patient was instructed to avoid pressure and friction on the affected areas. Reposition every 2 hours at minimum. Avoid prolonged standing and/or dangling of legs. When seated, feet should be elevated at chest level. Frequent ambulation is encouraged. Did instruct patient to utilize her offloading boot as much as possible and to bring with her to her next visit Diet: Patient encouraged to increase protein intake while taking caution to avoid high carbohydrate and/or sugar intake. Patient is a non-smoker Labs/cultures/imaging: Patient tolerated only a couple days with the doxycycline due to her staph epidermidis, currently does not appear infected continue holding off on any further antibiotics. Routine baseline lab work ordered and reviewed with patient. Request prior imaging records including MRI and prior podiatry records. MRI was reviewed and was negative for osteomyelitis. Given her worsening wound size, x-ray ordered previously and showed chronic arthritic changes no concern for osteomyelitis. Given the delayed wound healing and fact that she failed standard wound care with her being seen by podiatry for over a month and now at the wound healing center for 4 weeks, patient would benefit with an advanced skin substitute. Given her recent significant worsening of wound size due to her increase in swelling and fluid retention, would benefit from additional applications of Apligraf. Follow-up: Return to clinic in 1 week for re-evaluation. Return sooner or report to the emergency room should symptoms worsen, or new symptoms arise. This note was generated with [email or web address] dictation software. It may contain incorrect words, spelling, and punctuation that were not noted in checking the note before signing. I have spent 25 minutes today reviewing labs, records, and history. Time includes coordinating care, interpretation of tests, and counseling the patient/family. This also includes time I spent with the patient for exam, treatment plan, and education as well as documenting clinical information in the electronic health record.
[2021-11-28 15:18] VITALS: BP 144/69; PULSE 92; RESP 18; TEMP 36.6; BMI 28.6
--- NOTE | 2021-11-28 22:16 | PN.PCM_ITS ---
History of Present Illness Date of Service: 11/28/21 Chief Complaint: Diabetic foot ulcer left heel History of Wound: This is a 71-year-old white female who presents to the wound healing center today with complaint of diabetic foot ulcer to the left heel. She has a past medical history significant for type 2 diabetes mellitus (most recent A1c said to be 6), hypertension, hypothyroidism. The patient states that over the last 3 to 4 months she has had issues with a ulceration to her left heel. She has been following Dr. Shaver podiatry who has had patient in an offloading boot and patient said that she has been utilizing Silvadene as wound care covering with gauze. She states that her primary care did order an MRI of the heel as well which was said to be negative. She was placed on antibiotics at 1 point but states that she is no longer on these. She states that her wound does seem to be improving, however is improving slowly. She denies any purulent drainage or any systemic signs of infection such as fever or chills. She denies any other aggravating relieving factors. Past medical, family, and social history reviewed and not pertinent to the current visit and all other systems reviewed and negative with exception of those listed above. Progress of Wound: Stable, no new concerns, Apligraf left in place today as this is her last application approved from her insurance. Objective Data Objective Data Vital Signs: Vital Signs Temp Pulse Resp BP 98 F 92 18 144/69 H 11/28/21 15:18 11/28/21 15:18 11/28/21 15:18 11/28/21 15:18 Oxygen Delivery Method Room Air Weight: 172 lb Body Mass Index (BMI) 28.6 Lab / Micro Data Result Diagrams: 11/20/21 16:24 11/20/21 16:24 Micro: Microbiology 11/07/21 15:10 Wound Abcess - Heel, Left Gram Stain - Final 11/07/21 15:10 Wound Abcess - Heel, Left Wound Culture - Final Staphylococcus epidermidis Staphylococcus auricularis 11/07/21 15:10 Wound Abcess - Heel, Left Anaerobic Culture - Final No anaerobic bacteria isolated. 10/31/21 15:45 Wound Abcess - Heel, Left Gram Stain - Final 10/31/21 15:45 Wound Abcess - Heel, Left Wound Culture - Final Corynebacterium minutissimum 10/31/21 15:45 Wound Abcess - Heel, Left Anaerobic Culture - Final Fusobacterium nucleatum Actinomyces neuii Charges/Coding Visit Charges Office Visits / Consults: [id number] OV L2 Est Physical Exam Const alert, oriented x3, no apparent distress, healthy appearing and well nourished General Appearance: cooperative Exam Limitations: no limitations HEENT normocephalic Head and Scalp: normal to inspection Mouth: oral and palatal mucosa normal Eyes General Eye: normal appearance of both eyes Resp normal respiratory effort, normal air movement and no use of accessory muscles Effort and Inspection: able to speak in complete sentences Auscultation: clear to auscultation bilaterally Cardio regular rate, regular rhythm, S1 normal heart sound, S2 normal heart sound, no murmurs and peripheral pulses 2+ throughout Palpation: normal PMI Rate: regular rate Heart Sounds: S1 normal and S2 normal GI normal to inspection, nondistended, normoactive bowel sounds, soft to palpation, non-tender and non-distended Palpation: soft Extremity normal to inspection and full ROM General Extremity: normal exam except as noted Skin Skin Narrative: Wound present to left heel with adherent slough and less drainage and maceration noted this week, no purulence or erythema or warmth noted at this time. Chronic venous changes present bilateral lower extremities and dorsal pedis pulses 2+ Neuro oriented x3 and moves all extremities Sensorium / Orientation: awake, alert, oriented to person, oriented to place and oriented to time Psych mental status grossly normal, thought process normal and denies hallucinations Appearance: grossly normal Attitude: calm Activity / Motor Behavior: appropriate eye contact Speech: normal speech Thought Process: normal thought process Thought Content: normal thought content Attention / Concentration: attention grossly intact Insight: insight good Judgement: judgement good Debridement Note Debridement Note No debridement was completed: No debridement was completed today Post-Debridement Measurements and Additional Note: Post-Debridement Measurements/Treatment PALAK - Nurse 1 - General Ulcer Assessment Start: 10/31/21 15:18 Freq: Status: Active Protocol: MAYO Activity Type Activity Date Activity User E-Sign Co-Sign Detail Recorded Client Recorded Date Recorded By Document 10/31/21 15:18 ML [id number] 10/31/21 15:20 ML Document 11/07/21 14:35 ML [id number] 11/07/21 14:45 ML Document 11/14/21 15:05 AK [id number] 11/14/21 15:07 AK Document 11/21/21 15:07 ML [id number] 11/21/21 15:16 ML Document 11/28/21 15:18 MT [id number] 11/28/21 15:26 MT 10/31/21 11/07/21 11/14/21 15:18 14:35 15:05 WC - Today's Visit Information Type of service Follow-up Visit Follow-up Visit Follow-up Visit (Physician/INSOLVENCY CONSULTANT (Physician/INSOLVENCY CONSULTANT (Physician/INSOLVENCY CONSULTANT ) ) ) Arrival Mode Ambulatory Ambulatory Ambulatory Transfer Assistance None None Accompanied by Patient Identification Verified (Name & Yes Yes Yes ) Patient Requires Transmission-Based No No No Precautions Safety Precautions NA NA NA Height and Weight Body Mass Index (BMI) 28.6 28.6 28.6 BMI Classification Overweight Overweight Overweight Vital Signs Temperature (97.8 F-99.1 F) 97.4 F L 97.0 F L 97.9 F Temperature Source Temporal Temporal Temporal Pulse Rate (60-100) 72 70 79 Pulse Location Monitor Monitor Monitor Respiratory Rate (12-18) 16 16 Respiratory rate source Observation Observation Oxygen Delivery Method Blood Pressure (90/60-120/80) 140/69 H 139/68 H 103/56 L Blood Pressure Mean (mm Hg) 92 91 71 Source Monitor Monitor Monitor Position Sitting Sitting Blood Pressure Location Left Arm Left Arm History Since Last Visit- (Skip if this is Patient's initial visit) Have you changed medications since your Yes No No last visit? Any new allergies or adverse reactions No No No Had a fall/change in ADL's that may No No No increase risk of falls Signs or symptoms of abuse and/or No No No neglect since last visit Have you been in the hospital since your No No No last visit? Has dressing in place as prescribed Yes Yes Yes Has compression in place as prescribed Yes Yes Yes Has offloadiing in place as prescribed N/A N/A N/A Experienced any changes in pain level or No No No management Left Footwear Surgical Shoe Surgical Shoe Surgical Shoe with pressure with pressure with pressure relief insole relief insole relief insole Right Footwear Diabetic Shoe Regular Shoe Regular Shoe Pain Scale: 0-10 Numeric Is Patient Pain Free? Yes Yes Yes 11/21/21 11/28/21 15:07 15:18 WC - Today's Visit Information Type of service Follow-up Visit Follow-up Visit (Physician/INSOLVENCY CONSULTANT (Physician/INSOLVENCY CONSULTANT ) ) Arrival Mode Ambulatory Ambulatory Transfer Assistance None Accompanied by son Patient Identification Verified (Name & Yes Yes ) Patient Requires Transmission-Based No Precautions Safety Precautions NA Height and Weight Body Mass Index (BMI) 28.6 28.6 BMI Classification Overweight Overweight Vital Signs Temperature (97.8 F-99.1 F) 97.0 F L 98 F Temperature Source Temporal Temporal Pulse Rate (60-100) 88 92 Pulse Location Monitor Monitor Respiratory Rate (12-18) 18 18 Respiratory rate source Observation Observation Oxygen Delivery Method Room Air Blood Pressure (90/60-120/80) 151/74 H 144/69 H Blood Pressure Mean (mm Hg) 99 94 Source Monitor Monitor Position Sitting Sitting Blood Pressure Location Left Arm Right Arm History Since Last Visit- (Skip if this is Patient's initial visit) Have you changed medications since your No last visit? Any new allergies or adverse reactions No Had a fall/change in ADL's that may No increase risk of falls Signs or symptoms of abuse and/or No neglect since last visit Have you been in the hospital since your No last visit? Has dressing in place as prescribed Yes Yes Has compression in place as prescribed N/A Yes Has offloadiing in place as prescribed N/A Yes Experienced any changes in pain level or No Yes management Left Footwear Surgical Shoe Regular Shoe with pressure relief insole Right Footwear Regular Shoe Regular Shoe Pain Scale: 0-10 Numeric Is Patient Pain Free? Yes Yes - Nurse 1 - General Ulcer Measurement Start: 10/31/21 15:18 Freq: Status: Active Protocol: Activity Type Activity Date Activity User E-Sign Co-Sign Detail Recorded Client Recorded Date Recorded By Document 10/31/21 15:18 ML [id number] 10/31/21 15:20 ML Document 11/07/21 14:35 ML [id number] 11/07/21 14:45 ML Document 11/14/21 15:05 AK [id number] 11/14/21 15:07 AK Document 11/21/21 15:07 ML [id number] 11/21/21 15:16 ML Document 11/28/21 15:18 TX [id number] 11/28/21 15:26 MT 10/31/21 11/07/21 11/14/21 15:18 14:35 15:05 Wound Center Nurse 1 #1- L HEEL -Combined with other wound No -Current Size (cm) - Length 0.4 3 4 -Current Size (cm) - Width 0.3 1 1 -Current Size (cm) - Depth 0.1 0.1 0.1 -Total Square Cm 0.12 3 4 -Photo Taken No -Tunneling No -Undermining/Tunneling No -Circular Undermining No -Exudate Amt Small Large Medium -Exudate Type Serosanguineous Serosanguineous Serosanguineous -Wound Margin Distinct, Distinct, Distinct, Outline Outline Outline Attached Attached Attached -Granulation Amt Small (1-33%) Small (1-33%) Medium (34-66%) -Granulation Quality [place],Red -Slough/Fibrin Yes Yes Yes -Necrosis Amt Small (1-33%) Medium (34-66%) Medium (34-66%) -Necrotic Tissue Type Adherent Slough Adherent Slough Adherent Slough -Structure Exposed N/A -Texture (Mare-wound Skin Appearance) Assessed No Abnormality, Assessed -Moisture (Mare-wound Skin Appearance) Assessed Assessed No Abnormality, Assessed -Color (Mare-wound Skin Appearance) Assessed Assessed No Abnormality, Assessed -Temperature (Mare-wound Skin No Abnormality No Abnormality No Abnormality Appearance) (Pt Warm) (Pt Warm) (Pt Warm) -Tenderness on Palpation (Mare-wound No Yes No Skin Appearance) -Ulcer Cleansing Rinsed/ Rinsed/ Rinsed/ Irrigated with Irrigated with Irrigated with Saline Saline Saline -Foul Odor after Cleansing No No No -Anesthetic Used 5% Lidocaine 5% Lidocaine 4% Lidocaine Gel Gel Solution Lower Limb Edema Present No Left Calf (cm) 37.5 37 Left Ankle (cm) 24 11/21/21 11/28/21 15:07 15:18 Wound Center Nurse 1 #1- L HEEL -Combined with other wound -Current Size (cm) - Length 3 0.1 -Current Size (cm) - Width 2.5 0.1 -Current Size (cm) - Depth 0.1 0.1 -Total Square Cm 7.5 0.01 -Photo Taken -Tunneling -Undermining/Tunneling -Circular Undermining -Exudate Amt Medium -Exudate Type Serous -Wound Margin Distinct, Outline Attached -Granulation Amt Medium (34-66%) -Granulation Quality -Slough/Fibrin -Necrosis Amt Medium (34-66%) -Necrotic Tissue Type Adherent Slough -Structure Exposed -Texture (Mare-wound Skin Appearance) Assessed Assessed -Moisture (Mare-wound Skin Appearance) Assessed Assessed -Color (Mare-wound Skin Appearance) Assessed Assessed -Temperature (Mare-wound Skin No Abnormality No Abnormality Appearance) (Pt Warm) (Pt Warm) -Tenderness on Palpation (Mare-wound No No Skin Appearance) -Ulcer Cleansing Rinsed/ Irrigated with Saline -Foul Odor after Cleansing No -Anesthetic Used 5% Lidocaine Gel Lower Limb Edema Present NA Left Calf (cm) Left Ankle (cm) WC - Nurse 2 - General Ulcer CM Notes Start: 10/31/21 15:18 Freq: Status: Active Protocol: Activity Type Activity Date Activity User E-Sign Co-Sign Detail Recorded Client Recorded Date Recorded By Document 10/31/21 15:43 MW [id number] 10/31/21 15:55 MW Document 11/07/21 15:02 MW [id number] 11/07/21 15:16 MW Document 11/14/21 15:39 MW [id number] 11/14/21 15:49 MW Document 11/21/21 15:44 MW [id number] 11/21/21 15:58 MW Document 11/28/21 15:43 MW [id number] 11/28/21 15:44 MW 10/31/21 11/07/21 11/14/21 15:43 15:02 15:39 Wound Center Nurse 2 #1- L HEEL -Time 15:43 15:02 15:39 -Correct Patient Yes Yes Yes -Correct Side, Site, Position Yes Yes Yes -Correct Procedure Yes Yes Yes -Procedure Performed Yes Yes Yes -Type of Procedure Debridement Debridement Debridement -Clinical Debridement Subcutaneous Subcutaneous Subcutaneous -Tissue Removed Subcutaneous Subcutaneous Subcutaneous -Post Debridement (cm) - Length 1.2 5.0 4.0 -Post Debridement (cm) - Width 0.9 4.5 4.0 -Post Debridement (cm) - Depth 0.1 0.1 0.2 -Total Square (Post) (cm) 1.08 22.50 16.00 -Area of Debridement (cm) - Length 1.2 5.0 4.0 -Area of Debridement (cm) - Width 0.9 4.5 4.0 -Total Square (Area) (cm) 1.08 22.50 16.00 -Tunneling No No No -Undermining/Tunneling No No No -Circular Undermining No No No -Wound/Ulcer Outcome Not Healed Not Healed Not Healed -Ulcer Cleansing Rinsed/ Rinsed/ Rinsed/ Irrigated with Irrigated with Irrigated with Saline Saline Saline -Foul Odor after Cleansing No No No -Bioengineered Tissue Yes No Yes -Type of Bioengineered Tissue NuShield Disc Apligraf -Expiration Date 04/01/26 11/23/21 -Product Lot Number [id number] -Percent Used 100 50 -Lot number of Saline Used [id number] -Bleeding Controlled with Pressure Pressure Pressure -Treatment Response Procedure Procedure Procedure Tolerated Well Tolerated Well Tolerated Well -Offloading No No No -Debridement - Subq, 1st 20sq cm No Yes No -Debridement, SubQ, ea addt'l 20sq cm 1 or part thereof -Apply Skin Sub - 1st 25 sq cm - Feet 1 1 -Apligraf (per sq cm) 44 -NuShield 16mm Disc 2 Pain Scale: 0-10 Numeric Is Patient Pain Free? Yes Yes Yes 11/21/21 11/28/21 15:44 15:43 Wound Center Nurse 2 #1- L HEEL -Time 15:46 15:43 -Correct Patient Yes Yes -Correct Side, Site, Position Yes Yes -Correct Procedure Yes Yes -Procedure Performed Yes No -Type of Procedure Debridement -Clinical Debridement Subcutaneous -Tissue Removed Subcutaneous -Post Debridement (cm) - Length 3.5 -Post Debridement (cm) - Width 3.0 -Post Debridement (cm) - Depth 0.2 -Total Square (Post) (cm) 10.50 -Area of Debridement (cm) - Length 3.5 -Area of Debridement (cm) - Width 3.0 -Total Square (Area) (cm) 10.50 -Tunneling No No -Undermining/Tunneling No No -Circular Undermining No No -Wound/Ulcer Outcome Not Healed Not Healed -Ulcer Cleansing Rinsed/ Irrigated with Saline -Foul Odor after Cleansing No -Bioengineered Tissue Yes -Type of Bioengineered Tissue Apligraf -Expiration Date 12/03/21 -Product Lot Number [id number] -Percent Used 50 -Lot number of Saline Used [id number] -Bleeding Controlled with Pressure NA -Treatment Response Procedure Tolerated Well -Offloading No -Debridement - Subq, 1st 20sq cm No -Debridement, SubQ, ea addt'l 20sq cm or part thereof -Apply Skin Sub - 1st 25 sq cm - Feet 1 -Apligraf (per sq cm) 44 -[facility] 16mm Disc Pain Scale: 0-10 Numeric Is Patient Pain Free? Yes Yes WC - Nurse 3 - General Ulcer D/C NN Start: 10/31/21 15:18 Freq: Status: Active Protocol: Activity Type Activity Date Activity User E-Sign Co-Sign Detail Recorded Client Recorded Date Recorded By Document 10/31/21 16:06 ML [id number] 10/31/21 16:06 ML Document 11/07/21 15:21 ML [id number] 11/07/21 15:23 ML Document 11/14/21 15:56 ML [id number] 11/14/21 15:58 ML Document 11/21/21 16:05 AK [id number] 11/21/21 16:06 AK Document 11/21/21 16:09 AK [id number] 11/21/21 16:10 AK Document 11/28/21 15:52 AK [id number] 11/28/21 15:52 AK 10/31/21 11/07/21 11/14/21 16:06 15:21 15:56 Wound Care Nurse 3 #1- L HEEL -Ulcer Cleansing Rinsed/ Irrigated with Saline -Foul Odor after Cleansing No -Negative Pressure Wound Therapy -Primary Dressing Applied Silvercel Aquacel AG 4x4 -Other Dressing abd,nurses hat nurses hat, -Primary Dressing Covered/Secured with Dry Gauze & Dry Gauze,Dry Roll Gauze, Gauze & Roll Secured with Gauze,Secured Tape with Tape -Other Covering nurse hat -Aquacel Extra -Aquacel AG 4x4 1 -Silvercel 2 Left -Lotion applied to leg before compression wrap -Multi-Layered Wrap Application Unna Boot - Bilateral ($) -Compression Wrap -Unna Boots (Bilat) ($) 2 -Tubular Bandage Double Layer -Size of Tubigrip Used Size E -Size E ($) 2 -Other marco Pain Scale: 0-10 Numeric Is Patient Pain Free? Yes Yes Yes WC - Visit Discharge Discharge Condition Stable Ambulatory Status Transportation Private Auto Accompanied by Medication Reconcilliation completed & No provided to patient/care provider Clinical Summary of Care Provided Yes 11/21/21 11/21/21 11/28/21 16:05 16:09 15:52 Wound Care Nurse 3 #1- L HEEL -Ulcer Cleansing -Foul Odor after Cleansing No -Negative Pressure Wound Therapy N/A -Primary Dressing Applied Aquacel Extra -Other Dressing nurses hat -Primary Dressing Covered/Secured with Dry Gauze & Dry Gauze & Roll Gauze, Roll Gauze, Secured with Secured with Tape Tape -Other Covering -Aquacel Extra 1 -Aquacel AG 4x4 -Silvercel Left -Lotion applied to leg before No compression wrap -Multi-Layered Wrap Application -Compression Wrap Marco Wrap -Unna Boots (Bilat) ($) -Tubular Bandage Double Layer -Size of Tubigrip Used Size E -Size E ($) 2 -Other Pain Scale: 0-10 Numeric Is Patient Pain Free? Yes Yes Yes WC - Visit Discharge Discharge Condition Stable Stable Ambulatory Status Ambulatory Ambulatory Transportation Private Auto Private Auto Accompanied by son son Medication Reconcilliation completed & Yes Yes provided to patient/care provider Clinical Summary of Care Provided Yes Yes Assessment/Plan Assessment/Plan (1) Diabetic foot ulcer associated with type 2 diabetes mellitus: CODE(S): E11.621 - Type 2 diabetes mellitus with foot ulcer; L97.509 - Non-pressure chronic ulcer of other part of unspecified foot with unspecified severity QUALIFIERS: Diabetic foot ulcer location: heel Laterality: left Non-pressure ulcer stage: with fat layer exposed Qualified Code(s): E11.621 - Type 2 diabetes mellitus with foot ulcer; L97.422 - Non-pressure chronic ulcer of left heel and midfoot with fat layer exposed (2) Hypertension: CODE(S): I10 - Essential (primary) hypertension (3) Hypothyroidism: CODE(S): E03.9 - Hypothyroidism, unspecified (4) Debility: CODE(S): R53.81 - Other malaise PLAN: No debridement done today, left Apligraf in place and may do every other day dressing changes of Aquacel extra cover with gauze and nurses hat for protection. At home wound-care instructions: See above. Compression: Double layer Tubigrip's Off-loading: The patient was instructed to avoid pressure and friction on the affected areas. Reposition every 2 hours at minimum. Avoid prolonged standing and/or dangling of legs. When seated, feet should be elevated at chest level. Frequent ambulation is encouraged. Did instruct patient to utilize her offloading boot as much as possible and to bring with her to her next visit Diet: Patient encouraged to increase protein intake while taking caution to avoid high carbohydrate and/or sugar intake. Patient is a non-smoker Labs/cultures/imaging: Patient tolerated only a couple days with the doxycycline due to her staph epidermidis, currently does not appear infected continue holding off on any further antibiotics. Routine baseline lab work ordered and reviewed with patient. Request prior imaging records including MRI and prior podiatry records. MRI was reviewed and was negative for osteomyelitis. Given her worsening wound size, x-ray ordered previously and showed chronic arthritic changes no concern for osteomyelitis. Given the delayed wound healing and fact that she failed standard wound care with her being seen by podiatry for over a month and now at the wound healing center for 4 weeks, patient would benefit with an advanced skin substitute. Given her recent significant worsening of wound size due to her increase in swelling and fluid retention, would benefit from additional applications of Apligraf. Follow-up: Return to clinic in 1 week for re-evaluation. Return sooner or report to the emergency room should symptoms worsen, or new symptoms arise. This note was generated with [employer] dictation software. It may contain incorrect words, spelling, and punctuation that were not noted in checking the note before signing. I have spent 25 minutes today reviewing labs, records, and history. Time includes coordinating care, interpretation of tests, and counseling the patient/family. This also includes time I spent with the patient for exam, treatment plan, and education as well as documenting clinical information in the electronic health record.
== END 2021-11-28 23:59 | disposition home or self-care (01) ==
LOC: WC 15:15
PROVIDERS: PCP Family Medicine; Visit Provider Nurse Practitioner Family
DX: E11.621 Type 2 diabetes mellitus with foot ulcer (principal); L97.422 Non-pressure chronic ulcer of left heel and midfoot with fat layer exposed; Z79.4 Long term (current) use of insulin; E03.9 Hypothyroidism, unspecified; I10 Essential (primary) hypertension; R53.81 Other malaise; Z79.899 Other long term (current) drug therapy; Z79.02 Long term (current) use of antithrombotics/antiplatelets; Z79.01 Long term (current) use of anticoagulants
CPT/HCPCS: 11042; 11045; 15275; 29580; 36415; 80053; 83036; 84134; 85025; 85652; 86140; 87070; 87075; 87077; 87186; 87205; 99213; Q4101; Q4160; G0463

== ENCOUNTER 2021-12-26 15:00 | Outpatient (RCR) | payer MEDICARE, SELFPAY ==
[2021-11-29 00:20] VITALS: BP 144/69; PULSE 92; RESP 18; TEMP 36.6; BMI 28.6
[2021-12-05 13:23] VITALS: BP 138/60; PULSE 91; TEMP 36.3; BMI 28.6
[2021-12-12 15:17] VITALS: BP 151/71; PULSE 94; TEMP 35.7; BMI 28.6
--- NOTE | 2021-12-12 20:09 | PCM.WC.PN ---
History of Present Illness Date of Service: 12/12/21 Chief Complaint: Diabetic foot ulcer left heel History of Wound: This is a 71-year-old white female who presents to the wound healing center today with complaint of diabetic foot ulcer to the left heel. She has a past medical history significant for type 2 diabetes mellitus (most recent A1c said to be 6), hypertension, hypothyroidism. The patient states that over the last 3 to 4 months she has had issues with a ulceration to her left heel. She has been following Dr. Shaver podiatry who has had patient in an offloading boot and patient said that she has been utilizing Silvadene as wound care covering with gauze. She states that her primary care did order an MRI of the heel as well which was said to be negative. She was placed on antibiotics at 1 point but states that she is no longer on these. She states that her wound does seem to be improving, however is improving slowly. She denies any purulent drainage or any systemic signs of infection such as fever or chills. She denies any other aggravating relieving factors. Past medical, family, and social history reviewed and not pertinent to the current visit and all other systems reviewed and negative with exception of those listed above. Progress of Wound: Patient's left heel ulcer is stable and improved, however she does have 2 new ulcers one on the left great toe and 1 on the left Achilles which have been present for the past week and she has been utilizing Promogran. Denies any signs and symptoms of infection at this time. Objective Data Objective Data Vital Signs: Vital Signs Temp Pulse Resp BP 96.3 F L 94 18 151/71 H 12/12/21 15:17 12/12/21 15:17 11/29/21 00:20 12/12/21 15:17 Weight: 172 lb Body Mass Index (BMI) 28.6 Charges/Coding Procedures Integumentary 111xxx-113xx: 84350 Tasneem subq tissue 20 sq cm/< Physical Exam Const alert, oriented x3, no apparent distress, healthy appearing and well nourished General Appearance: cooperative Exam Limitations: no limitations HEENT normocephalic Head and Scalp: normal to inspection Mouth: oral and palatal mucosa normal Eyes General Eye: normal appearance of both eyes Resp normal respiratory effort, normal air movement and no use of accessory muscles Effort and Inspection: able to speak in complete sentences Auscultation: clear to auscultation bilaterally Cardio regular rate, regular rhythm, S1 normal heart sound, S2 normal heart sound, no murmurs and peripheral pulses 2+ throughout Palpation: normal PMI Rate: regular rate Heart Sounds: S1 normal and S2 normal GI normal to inspection, nondistended, normoactive bowel sounds, soft to palpation, non-tender and non-distended Palpation: soft Extremity normal to inspection and full ROM General Extremity: normal exam except as noted Skin Skin Narrative: Wound present to left heel with adherent slough and less drainage and maceration noted this week, diabetic foot ulcer presents on left great toe and also left Achilles with adherent slough, no purulence or erythema or warmth noted at this time. Chronic venous changes present bilateral lower extremities and dorsal pedis pulses 2+ Neuro oriented x3 and moves all extremities Sensorium / Orientation: awake, alert, oriented to person, oriented to place and oriented to time Psych mental status grossly normal, thought process normal and denies hallucinations Appearance: grossly normal Attitude: calm Activity / Motor Behavior: appropriate eye contact Speech: normal speech Thought Process: normal thought process Thought Content: normal thought content Attention / Concentration: attention grossly intact Insight: insight good Judgement: judgement good Debridement Note Debridement Note Wound debrided: Left heel, Achilles, and great toe DFU Laterality: Left Wound Grade/Stage: Santos 2 Type of Debridement: Excisional debridement Anesthesia Used: 5% Lidocaine Gel Depth: in the subcutaneous layer Percentage of wound debrided: 100 Instrument Used: 5mm curette Tissue Removed: Slough and devitalized tissue Severity: Fat Layer Exposed Amount of bleeding with debridement: Mild Bleeding Controlled with: Pressure Patient tolerated procedure: Patient tolerated procedure well Post-Debridement Measurements and Additional Note: Post-Debridement Measurements/Treatment - Nurse 1 - General Ulcer Assessment Start: 12/05/21 13:23 Freq: Status: Active Protocol: MAYO Activity Type Activity Date Activity User E-Sign Co-Sign Detail Recorded Client Recorded Date Recorded By Document 12/05/21 13:23 RAUDEL [id number] 12/05/21 13:25 KR Document 12/12/21 15:17 YARITZA [id number] 12/12/21 15:22 YARITZA 12/05/21 12/12/21 13:23 15:17 - Today's Visit Information Type of service Nurse-only Follow-up Visit Visit (Physician/[employer] OPERATOR ) Arrival Mode Wheelchair Ambulatory Patient Identification Verified (Name & Yes Yes ) Patient Requires Transmission-Based No Precautions Safety Precautions NA Height and Weight Body Mass Index (BMI) 28.6 28.6 BMI Classification Overweight Overweight Vital Signs Temperature (97.8 F-99.1 F) 97.4 F L 96.3 F L Temperature Source Temporal Temporal Pulse Rate (60-100) 91 94 Pulse Location Monitor Monitor Blood Pressure (90/60-120/80) 138/60 H 151/71 H Blood Pressure Mean (mm Hg) 86 97 Source Monitor Monitor Position Semi-Fowlers Blood Pressure Location Right Arm History Since Last Visit- (Skip if this is Patient's initial visit) Have you changed medications since your No No last visit? Any new allergies or adverse reactions No No Had a fall/change in ADL's that may No No increase risk of falls Signs or symptoms of abuse and/or No No neglect since last visit Have you been in the hospital since your No No last visit? Has dressing in place as prescribed Yes Yes Has compression in place as prescribed Yes No Has offloadiing in place as prescribed N/A N/A Experienced any changes in pain level or No No management Left Footwear Regular Shoe Right Footwear Regular Shoe Pain Scale: 0-10 Numeric Is Patient Pain Free? Yes Yes WC - Nurse 1 - General Ulcer Measurement Start: 12/05/21 13:23 Freq: Status: Active Protocol: Activity Type Activity Date Activity User E-Sign Co-Sign Detail Recorded Client Recorded Date Recorded By Document 12/12/21 15:17 GA [id number] 12/12/21 15:22 GA 12/12/21 15:17 Wound Center Nurse 1 #1- L HEEL -Combined with other wound No -Current Size (cm) - Length 0.5 -Current Size (cm) - Width 1.1 -Current Size (cm) - Depth 0.1 -Total Square Cm 0.55 -Photo Taken No -Epithelialization None Present -Tunneling No -Undermining/Tunneling No -Circular Undermining No -Exudate Amt Medium -Exudate Type Serosanguineous -Wound Margin Distinct, Outline Attached -Granulation Quality Pale,English -Slough/Fibrin Yes -Necrosis Amt Small (1-33%) -Structure Exposed N/A -Texture (Mare-wound Skin Appearance) Assessed,Callus -Moisture (Mare-wound Skin Appearance) Assessed -Color (Mare-wound Skin Appearance) No Abnormality, Assessed -Temperature (Mare-wound Skin No Abnormality Appearance) (Pt Warm) -Tenderness on Palpation (Mare-wound Yes Skin Appearance) -Ulcer Cleansing Rinsed/ Irrigated with Saline -Foul Odor after Cleansing No -Anesthetic Used 4% Lidocaine Solution Left Ankle (cm) 25 Left Foot (cm) 38.5 WC - Nurse 2 - General Ulcer CM Notes Start: 12/05/21 13:23 Freq: Status: Active Protocol: Activity Type Activity Date Activity User E-Sign Co-Sign Detail Recorded Client Recorded Date Recorded By Document 12/12/21 15:38 MW [id number] 12/12/21 15:52 MW 12/12/21 15:38 Wound Center Nurse 2 #3 LEFT GREAT TOE -Time 15:48 -Correct Patient Yes -Correct Side, Site, Position Yes -Correct Procedure Yes -Procedure Performed Yes -Type of Procedure Debridement -Clinical Debridement Subcutaneous -Tissue Removed Subcutaneous -Post Debridement (cm) - Length 1.0 -Post Debridement (cm) - Width 1.5 -Post Debridement (cm) - Depth 0.1 -Total Square (Post) (cm) 1.50 -Area of Debridement (cm) - Length 1.0 -Area of Debridement (cm) - Width 1.5 -Total Square (Area) (cm) 1.50 -Tunneling No -Undermining/Tunneling No -Circular Undermining No -Wound/Ulcer Outcome Not Healed -Ulcer Cleansing Rinsed/ Irrigated with Saline -Foul Odor after Cleansing No -Bioengineered Tissue No -Bleeding Controlled with Pressure -Treatment Response Procedure Tolerated Well -Offloading No -Debridement - Subq, 1st 20sq cm No #2 LEFT ACHILLES -Time 15:46 -Correct Patient Yes -Correct Side, Site, Position Yes -Correct Procedure Yes -Procedure Performed Yes -Type of Procedure Debridement -Clinical Debridement Subcutaneous -Tissue Removed Subcutaneous -Post Debridement (cm) - Length 2.0 -Post Debridement (cm) - Width 1.5 -Post Debridement (cm) - Depth 0.2 -Total Square (Post) (cm) 3.00 -Area of Debridement (cm) - Length 2.0 -Area of Debridement (cm) - Width 1.5 -Total Square (Area) (cm) 3.00 -Tunneling No -Undermining/Tunneling No -Circular Undermining No -Wound/Ulcer Outcome Not Healed -Ulcer Cleansing Rinsed/ Irrigated with Saline -Foul Odor after Cleansing No -Bioengineered Tissue No -Bleeding Controlled with Pressure -Treatment Response Procedure Tolerated Well -Offloading No -Debridement - Subq, 1st 20sq cm No #1- L HEEL -Time 15:39 -Correct Patient Yes -Correct Side, Site, Position Yes -Correct Procedure Yes -Procedure Performed Yes -Type of Procedure Debridement -Clinical Debridement Subcutaneous -Tissue Removed Subcutaneous -Post Debridement (cm) - Length 1.5 -Post Debridement (cm) - Width 1.0 -Post Debridement (cm) - Depth 0.1 -Total Square (Post) (cm) 1.50 -Area of Debridement (cm) - Length 1.5 -Area of Debridement (cm) - Width 1.0 -Total Square (Area) (cm) 1.50 -Tunneling No -Undermining/Tunneling No -Circular Undermining No -Wound/Ulcer Outcome Not Healed -Ulcer Cleansing Rinsed/ Irrigated with Saline -Foul Odor after Cleansing No -Bioengineered Tissue No -Bleeding Controlled with Pressure -Treatment Response Procedure Tolerated Well -Offloading No -Debridement - Subq, 1st 20sq cm Yes Pain Scale: 0-10 Numeric Is Patient Pain Free? Yes WC - Nurse 3 - General Ulcer D/C NN Start: 12/05/21 13:23 Freq: Status: Active Protocol: Activity Type Activity Date Activity User E-Sign Co-Sign Detail Recorded Client Recorded Date Recorded By Document 12/05/21 13:23 KR [id number] 12/05/21 13:25 KR Document 12/12/21 15:52 MW [id number] 12/12/21 15:54 MW 12/05/21 12/12/21 13:23 15:52 Vital Signs Temperature (97.8 F-99.1 F) 97.4 F L Temperature Source Temporal Pulse Rate (60-100) 91 Pulse Location Monitor Blood Pressure (90/60-120/80) 138/60 H Blood Pressure Mean (mm Hg) 86 Source Monitor Position Semi-Fowlers Blood Pressure Location Right Arm Pain Scale: 0-10 Numeric Is Patient Pain Free? Yes Yes Teaching: Wound Center Dressing Your Wound -Person Taught Patient,Family -Teaching Method Discussion, Demonstration -Response to teaching Verbalize understanding Wound Care Nurse 3 #3 LEFT GREAT TOE -Ulcer Cleansing Rinsed/ Irrigated with Saline -Foul Odor after Cleansing No -Negative Pressure Wound Therapy N/A -Primary Dressing Applied Aquacel Extra -Primary Dressing Covered/Secured with Dry Gauze & Roll Gauze, Secured with Tape -Aquacel Extra 1 #2 LEFT ACHILLES -Ulcer Cleansing Rinsed/ Irrigated with Saline -Foul Odor after Cleansing No -Negative Pressure Wound Therapy N/A -Other Dressing AQUACEL EXTRA -Primary Dressing Covered/Secured with Dry Gauze & Roll Gauze, Secured with Tape -Other Covering ABD PAD #1- L HEEL -Ulcer Cleansing Rinsed/ Rinsed/ Irrigated with Irrigated with Saline Saline -Foul Odor after Cleansing No -Negative Pressure Wound Therapy N/A -Primary Dressing Applied Aquacel AG 4x4 -Other Dressing ABD AQUACEL EXTRA -Primary Dressing Covered/Secured with Dry Gauze,Dry Dry Gauze & Gauze & Roll Roll Gauze, Gauze,Secured Secured with with Tape Tape -Other Covering ABD PAD -Aquacel AG 4x4 1 Left -Lotion applied to leg before No compression wrap -Compression Wrap Marco Wrap -Other TUBIGRIP Treatment Response Procedure Tolerated Well WC - Visit Discharge Discharge Condition Stable Stable Ambulatory Status Wheelchair Ambulatory Transportation Private Auto Private Auto Accompanied by SON Medication Reconcilliation completed & No provided to patient/care provider Clinical Summary of Care Provided Yes Assessment/Plan Assessment/Plan (1) Diabetic foot ulcer associated with type 2 diabetes mellitus: CODE(S): E11.621 - Type 2 diabetes mellitus with foot ulcer; L97.509 - Non-pressure chronic ulcer of other part of unspecified foot with unspecified severity QUALIFIERS: Diabetic foot ulcer location: heel Laterality: left Non-pressure ulcer stage: with fat layer exposed Qualified Code(s): E11.621 - Type 2 diabetes mellitus with foot ulcer; L97.422 - Non-pressure chronic ulcer of left heel and midfoot with fat layer exposed (2) Hypertension: CODE(S): I10 - Essential (primary) hypertension (3) Hypothyroidism: CODE(S): E03.9 - Hypothyroidism, unspecified (4) Debility: CODE(S): R53.81 - Other malaise PLAN: Debridement done as documented above, patient tolerated well. Aquacel extra to all wounds, may do every other day dressing changes of Aquacel extra cover with gauze and nurses hat for protection. At home wound-care instructions: See above. Compression: Double layer Tubigrip's Off-loading: The patient was instructed to avoid pressure and friction on the affected areas. Reposition every 2 hours at minimum. Avoid prolonged standing and/or dangling of legs. When seated, feet should be elevated at chest level. Frequent ambulation is encouraged. Did instruct patient to utilize her offloading boot as much as possible and to bring with her to her next visit Diet: Patient encouraged to increase protein intake while taking caution to avoid high carbohydrate and/or sugar intake. Patient is a non-smoker Labs/cultures/imaging: Patient tolerated only a couple days with the doxycycline due to her staph epidermidis, currently does not appear infected continue holding off on any further antibiotics. Routine baseline lab work ordered and reviewed with patient. Request prior imaging records including MRI and prior podiatry records. MRI was reviewed and was negative for osteomyelitis. Given her worsening wound size, x-ray ordered previously and showed chronic arthritic changes no concern for osteomyelitis. Given the delayed wound healing and fact that patient has new wounds will apply for advanced skin substitute purapply AM. Follow-up: Return to clinic in 1 week for re-evaluation. Return sooner or report to the emergency room should symptoms worsen, or new symptoms arise. This note was generated with [employer] dictation software. It may contain incorrect words, spelling, and punctuation that were not noted in checking the note before signing. I have spent 25 minutes today reviewing labs, records, and history. Time includes coordinating care, interpretation of tests, and counseling the patient/family. This also includes time I spent with the patient for exam, treatment plan, and education as well as documenting clinical information in the electronic health record.
[2021-12-19 14:48] VITALS: BP 133/62; PULSE 80; RESP 18; TEMP 36.8; BMI 28.6
--- NOTE | 2021-12-19 23:48 | PN.PCM_ITS ---
History of Present Illness Date of Service: 12/19/21 Chief Complaint: Diabetic foot ulcer left heel History of Wound: This is a 71-year-old white female who presents to the wound healing center today with complaint of diabetic foot ulcer to the left heel. She has a past medical history significant for type 2 diabetes mellitus (most recent A1c said to be 6), hypertension, hypothyroidism. The patient states that over the last 3 to 4 months she has had issues with a ulceration to her left heel. She has been following Dr. Shaver podiatry who has had patient in an offloading boot and patient said that she has been utilizing Silvadene as wound care covering with gauze. She states that her primary care did order an MRI of the heel as well which was said to be negative. She was placed on antibiotics at 1 point but states that she is no longer on these. She states that her wound does seem to be improving, however is improving slowly. She denies any purulent drainage or any systemic signs of infection such as fever or chills. She denies any other aggravating relieving factors. Past medical, family, and social history reviewed and not pertinent to the current visit and all other systems reviewed and negative with exception of those listed above. In November 2021, the patient did develop 2 new ulcerations on her left great toe and her left Achilles Progress of Wound: Patient's left heel ulcer is stable and improved, however her other ulcers on the left great toe and 1 on the left Achilles continues to have delayed wound healing, First application of Puraply am to the left achilles today. Denies any signs and symptoms of infection at this time. Objective Data Objective Data Vital Signs: Vital Signs Temp Pulse Resp BP 98.3 F 80 18 133/62 H 12/19/21 14:48 12/19/21 14:48 12/19/21 14:48 12/19/21 14:48 Weight: 172 lb Body Mass Index (BMI) 28.6 Charges/Coding Procedures Integumentary 150xxx-152xx: 23114 Skin sub graft trnk/arm/leg Physical Exam Const alert, oriented x3, no apparent distress, healthy appearing and well nourished General Appearance: cooperative Exam Limitations: no limitations HEENT normocephalic Head and Scalp: normal to inspection Mouth: oral and palatal mucosa normal Eyes General Eye: normal appearance of both eyes Resp normal respiratory effort, normal air movement and no use of accessory muscles Effort and Inspection: able to speak in complete sentences Auscultation: clear to auscultation bilaterally Cardio regular rate, regular rhythm, S1 normal heart sound, S2 normal heart sound, no murmurs and peripheral pulses 2+ throughout Palpation: normal PMI Rate: regular rate Heart Sounds: S1 normal and S2 normal GI normal to inspection, nondistended, normoactive bowel sounds, soft to palpation, non-tender and non-distended Palpation: soft Extremity normal to inspection and full ROM General Extremity: normal exam except as noted Skin Skin Narrative: Wound present to left heel with adherent slough and less drainage and maceration noted this week, diabetic foot ulcer present on left great toe and also left Achilles with adherent slough, no purulence or erythema or warmth noted at this time. Chronic venous changes present bilateral lower extremities and dorsal pedis pulses 2+ Neuro oriented x3 and moves all extremities Sensorium / Orientation: awake, alert, oriented to person, oriented to place and oriented to time Psych mental status grossly normal, thought process normal and denies hallucinations Appearance: grossly normal Attitude: calm Activity / Motor Behavior: appropriate eye contact Speech: normal speech Thought Process: normal thought process Thought Content: normal thought content Attention / Concentration: attention grossly intact Insight: insight good Judgement: judgement good Debridement Note Debridement Note Wound debrided: Diabetic ulcers left heel, left Achilles, and left great toe Laterality: Left Wound Grade/Stage: Santos 2 Type of Debridement: Excisional debridement and Selective debridement Anesthesia Used: 5% Lidocaine Gel Depth: Down to and including healthy tissue and in the subcutaneous layer Percentage of wound debrided: 100 Instrument Used: 5mm curette Tissue Removed: Slough and vitalized tissue Severity: Fat Layer Exposed Amount of bleeding with debridement: Mild Bleeding Controlled with: Pressure Patient tolerated procedure: Patient tolerated procedure well Post-Debridement Measurements and Additional Note: Post-Debridement Measurements/Treatment PALAK - Nurse 1 - General Ulcer Assessment Start: 12/05/21 13:23 Freq: Status: Active Protocol: MAYO Activity Type Activity Date Activity User E-Sign Co-Sign Detail Recorded Client Recorded Date Recorded By Document 12/05/21 13:23 RAUDEL [id number] 12/05/21 13:25 KR Document 12/12/21 15:17 YARITZA [id number] 12/12/21 15:22 AK Document 12/19/21 14:48 DL [id number] 12/19/21 14:59 DL 12/05/21 12/12/21 12/19/21 13:23 15:17 14:48 - Today's Visit Information Type of service Nurse-only Follow-up Visit Follow-up Visit Visit (Physician/PRODUCTION REPRODUCTION MANAGER (Physician/PRODUCTION REPRODUCTION MANAGER ) ) Arrival Mode Wheelchair Ambulatory Ambulatory Transfer Assistance None Patient Identification Verified (Name & Yes Yes Yes ) Patient Requires Transmission-Based No Precautions Safety Precautions NA Finger Stick Blood Sugar(mg/dl) (if 108 indicated): Blood Sugar Stated by Patient Height and Weight Body Mass Index (BMI) 28.6 28.6 28.6 BMI Classification Overweight Overweight Overweight Vital Signs Temperature (97.8 F-99.1 F) 97.4 F L 96.3 F L 98.3 F Temperature Source Temporal Temporal Temporal Pulse Rate (60-100) 91 94 80 Pulse Location Monitor Monitor Monitor Respiratory Rate (12-18) 18 Respiratory rate source Observation Blood Pressure (90/60-120/80) 138/60 H 151/71 H 133/62 H Blood Pressure Mean (mm Hg) 86 97 85 Source Monitor Monitor Monitor Position Semi-Fowlers Blood Pressure Location Right Arm History Since Last Visit- (Skip if this is Patient's initial visit) Have you changed medications since your No No No last visit? Any new allergies or adverse reactions No No No Had a fall/change in ADL's that may No No No increase risk of falls Signs or symptoms of abuse and/or No No No neglect since last visit Have you been in the hospital since your No No No last visit? Has dressing in place as prescribed Yes Yes Yes Has compression in place as prescribed Yes No Yes Has offloadiing in place as prescribed N/A N/A Yes Experienced any changes in pain level or No No No management Left Footwear Regular Shoe Surgical Shoe with pressure relief insole Right Footwear Regular Shoe Pain Scale: 0-10 Numeric Is Patient Pain Free? Yes Yes Yes - Nurse 1 - General Ulcer Measurement Start: 12/05/21 13:23 Freq: Status: Active Protocol: Activity Type Activity Date Activity User E-Sign Co-Sign Detail Recorded Client Recorded Date Recorded By Document 12/12/21 15:17 AK [id number] 12/12/21 15:22 AK Document 12/19/21 14:48 DL [id number] 12/19/21 14:59 DL 12/12/21 12/19/21 15:17 14:48 Wound Center Nurse 1 #3 LEFT GREAT TOE -Current Size (cm) - Length 1.3 -Current Size (cm) - Width 0.7 -Current Size (cm) - Depth 0.1 -Total Square Cm 0.91 -Photo Taken No -Exudate Amt Small -Exudate Type Serosanguineous -Wound Margin Indistinct, Non -Visible -Granulation Amt Large (67-100%) -Granulation Quality Pale,Mildred -Necrosis Amt Small (1-33%) -Necrotic Tissue Type Adherent Slough -Structure Exposed N/A -Texture (Mare-wound Skin Appearance) Scarring -Moisture (Mare-wound Skin Appearance) Dry/Scaly -Color (Mare-wound Skin Appearance) No Abnormality -Temperature (Mare-wound Skin No Abnormality Appearance) (Pt Warm) -Tenderness on Palpation (Mare-wound No Skin Appearance) -Ulcer Cleansing Soap and Water -Foul Odor after Cleansing No -Anesthetic Used 4% Lidocaine Solution #2 LEFT ACHILLES -Current Size (cm) - Length 1 -Current Size (cm) - Width 1 -Current Size (cm) - Depth 0.2 -Total Square Cm 1 -Photo Taken No -Exudate Amt None Present -Wound Margin Thickened -Granulation Amt None Present (0 %) -Necrotic Tissue Type Eschar -Structure Exposed N/A -Texture (Mare-wound Skin Appearance) Scarring -Moisture (Mare-wound Skin Appearance) Dry/Scaly -Color (Mare-wound Skin Appearance) Assessed -Temperature (Mare-wound Skin No Abnormality Appearance) (Pt Warm) -Tenderness on Palpation (Mare-wound No Skin Appearance) -Ulcer Cleansing Soap and Water -Foul Odor after Cleansing No -Anesthetic Used 5% Lidocaine Gel #1- L HEEL -Combined with other wound No -Current Size (cm) - Length 0.5 0.3 -Current Size (cm) - Width 1.1 0.7 -Current Size (cm) - Depth 0.1 0.1 -Total Square Cm 0.55 0.21 -Photo Taken No No -Epithelialization None Present -Tunneling No -Undermining/Tunneling No -Circular Undermining No -Exudate Amt Medium None Present -Exudate Type Serosanguineous -Wound Margin Distinct, Distinct, Outline Outline Attached Attached -Granulation Amt Small (1-33%) -Granulation Quality Pale,Mildred Mildred -Slough/Fibrin Yes -Necrosis Amt Small (1-33%) None Present (0 %) -Structure Exposed N/A N/A -Texture (Mare-wound Skin Appearance) Assessed,Callus Callus,Rash -Moisture (Mare-wound Skin Appearance) Assessed Dry/Scaly -Color (Mare-wound Skin Appearance) No Abnormality, No Abnormality Assessed -Temperature (Mare-wound Skin No Abnormality No Abnormality Appearance) (Pt Warm) (Pt Warm) -Tenderness on Palpation (Mare-wound Yes No Skin Appearance) -Ulcer Cleansing Rinsed/ Soap and Water Irrigated with Saline -Foul Odor after Cleansing No No -Anesthetic Used 4% Lidocaine 5% Lidocaine Solution Gel Left Ankle (cm) 25 Left Foot (cm) 38.5 WC - Nurse 2 - General Ulcer CM Notes Start: 12/05/21 13:23 Freq: Status: Active Protocol: Activity Type Activity Date Activity User E-Sign Co-Sign Detail Recorded Client Recorded Date Recorded By Document 12/12/21 15:38 MW [id number] 12/12/21 15:52 MW Document 12/19/21 15:21 MW [id number] 12/19/21 15:40 MW 12/12/21 12/19/21 15:38 15:21 Wound Center Nurse 2 #3 LEFT GREAT TOE -Time 15:48 15:21 -Correct Patient Yes Yes -Correct Side, Site, Position Yes Yes -Correct Procedure Yes Yes -Procedure Performed Yes Yes -Type of Procedure Debridement Debridement -Clinical Debridement Subcutaneous Subcutaneous -Tissue Removed Subcutaneous Subcutaneous -Post Debridement (cm) - Length 1.0 1.0 -Post Debridement (cm) - Width 1.5 1.5 -Post Debridement (cm) - Depth 0.1 0.1 -Total Square (Post) (cm) 1.50 1.50 -Area of Debridement (cm) - Length 1.0 1.0 -Area of Debridement (cm) - Width 1.5 1.5 -Total Square (Area) (cm) 1.50 1.50 -Tunneling No No -Undermining/Tunneling No No -Circular Undermining No No -Wound/Ulcer Outcome Not Healed Not Healed -Ulcer Cleansing Rinsed/ Rinsed/ Irrigated with Irrigated with Saline Saline -Foul Odor after Cleansing No No -Bioengineered Tissue No No -Bleeding Controlled with Pressure Pressure -Treatment Response Procedure Procedure Tolerated Well Tolerated Well -Offloading No No -Debridement - Subq, 1st 20sq cm No Yes #2 LEFT ACHILLES -Time 15:46 15:21 -Correct Patient Yes Yes -Correct Side, Site, Position Yes Yes -Correct Procedure Yes Yes -Procedure Performed Yes Yes -Type of Procedure Debridement Debridement -Clinical Debridement Subcutaneous Subcutaneous -Tissue Removed Subcutaneous Subcutaneous -Post Debridement (cm) - Length 2.0 2.0 -Post Debridement (cm) - Width 1.5 1.5 -Post Debridement (cm) - Depth 0.2 0.2 -Total Square (Post) (cm) 3.00 3.00 -Area of Debridement (cm) - Length 2.0 2.0 -Area of Debridement (cm) - Width 1.5 1.5 -Total Square (Area) (cm) 3.00 3.00 -Tunneling No No -Undermining/Tunneling No No -Circular Undermining No No -Wound/Ulcer Outcome Not Healed Not Healed -Ulcer Cleansing Rinsed/ Rinsed/ Irrigated with Irrigated with Saline Saline -Foul Odor after Cleansing No No -Bioengineered Tissue No Yes -Type of Bioengineered Tissue PuraPly AM -Expiration Date 01/20/24 -Product Lot Number [id number] -Percent Used 100 -Lot number of Saline Used [id number] -Bleeding Controlled with Pressure Pressure -Treatment Response Procedure Procedure Tolerated Well Tolerated Well -Offloading No No -Debridement - Subq, 1st 20sq cm No No -Apply Skin Sub - 1st 25 sq cm - Legs 1 -PuraPly AM (per sq cm) 4 #1- L HEEL -Time 15:39 15:21 -Correct Patient Yes Yes -Correct Side, Site, Position Yes Yes -Correct Procedure Yes Yes -Procedure Performed Yes Yes -Type of Procedure Debridement Debridement -Clinical Debridement Subcutaneous Subcutaneous -Tissue Removed Subcutaneous Subcutaneous -Post Debridement (cm) - Length 1.5 0.6 -Post Debridement (cm) - Width 1.0 1.2 -Post Debridement (cm) - Depth 0.1 0.1 -Total Square (Post) (cm) 1.50 0.72 -Area of Debridement (cm) - Length 1.5 0.6 -Area of Debridement (cm) - Width 1.0 1.2 -Total Square (Area) (cm) 1.50 0.72 -Tunneling No No -Undermining/Tunneling No No -Circular Undermining No No -Wound/Ulcer Outcome Not Healed Not Healed -Ulcer Cleansing Rinsed/ Rinsed/ Irrigated with Irrigated with Saline Saline -Foul Odor after Cleansing No No -Bioengineered Tissue No No -Bleeding Controlled with Pressure Pressure -Treatment Response Procedure Procedure Tolerated Well Tolerated Well -Offloading No No -Debridement - Subq, 1st 20sq cm Yes No Pain Scale: 0-10 Numeric Is Patient Pain Free? Yes Yes WC - Nurse 3 - General Ulcer D/C NN Start: 12/05/21 13:23 Freq: Status: Active Protocol: Activity Type Activity Date Activity User E-Sign Co-Sign Detail Recorded Client Recorded Date Recorded By Document 12/05/21 13:23 KR [id number] 12/05/21 13:25 KR Document 12/12/21 15:52 MW [id number] 12/12/21 15:54 MW Document 12/19/21 15:47 DL [id number] 12/19/21 15:50 DL Document 12/19/21 15:51 AK [id number] 12/19/21 15:52 AK 12/05/21 12/12/21 12/19/21 13:23 15:52 15:47 Vital Signs Temperature (97.8 F-99.1 F) 97.4 F L Temperature Source Temporal Pulse Rate (60-100) 91 Pulse Location Monitor Blood Pressure (90/60-120/80) 138/60 H Blood Pressure Mean (mm Hg) 86 Source Monitor Position Semi-Fowlers Blood Pressure Location Right Arm Pain Scale: 0-10 Numeric Is Patient Pain Free? Yes Yes Yes Teaching: Wound Center Dressing Your Wound -Person Taught Patient,Family -Teaching Method Discussion, Demonstration -Response to teaching Verbalize understanding Wound Care Nurse 3 #3 LEFT GREAT TOE -Ulcer Cleansing Rinsed/ Irrigated with Saline -Foul Odor after Cleansing No -Negative Pressure Wound Therapy N/A -Primary Dressing Applied Aquacel Extra Aquacel Extra -Primary Dressing Covered/Secured with Dry Gauze & Dry Gauze, Roll Gauze, Secured with Secured with Tape Tape -Aquacel Extra 1 1 #2 LEFT ACHILLES -Ulcer Cleansing Rinsed/ Irrigated with Saline -Foul Odor after Cleansing No -Negative Pressure Wound Therapy N/A -Primary Dressing Applied Aquacel AG 4x4 -Other Dressing AQUACEL EXTRA -Primary Dressing Covered/Secured with Dry Gauze & Dry Gauze & Roll Gauze, Roll Gauze, Secured with Secured with Tape Tape -Other Covering ABD PAD -Aquacel AG 4x4 0 #1- L HEEL -Ulcer Cleansing Rinsed/ Rinsed/ Irrigated with Irrigated with Saline Saline -Foul Odor after Cleansing No -Negative Pressure Wound Therapy N/A -Primary Dressing Applied Aquacel AG 4x4 Aquacel AG 4x4 -Other Dressing ABD AQUACEL EXTRA ABD -Primary Dressing Covered/Secured with Dry Gauze,Dry Dry Gauze & Dry Gauze & Gauze & Roll Roll Gauze, Roll Gauze, Gauze,Secured Secured with Secured with with Tape Tape Tape -Other Covering ABD PAD -Aquacel AG 4x4 1 0 Left -Lotion applied to leg before No compression wrap -Compression Wrap Marco Wrap -Tubular Bandage -Size of Tubigrip Used -Size E ($) -Other TUBIGRIP Treatment Response Procedure Tolerated Well WC - Visit Discharge Discharge Condition Stable Stable Stable Ambulatory Status Wheelchair Ambulatory Transportation Private Auto Private Auto Private Auto Accompanied by SON son Medication Reconcilliation completed & No Yes provided to patient/care provider Clinical Summary of Care Provided Yes Yes 12/19/21 15:51 Vital Signs Temperature (97.8 F-99.1 F) Temperature Source Pulse Rate (60-100) Pulse Location Blood Pressure (90/60-120/80) Blood Pressure Mean (mm Hg) Source Position Blood Pressure Location Pain Scale: 0-10 Numeric Is Patient Pain Free? Yes Teaching: Wound Center Dressing Your Wound -Person Taught -Teaching Method -Response to teaching Wound Care Nurse 3 #3 LEFT GREAT TOE -Ulcer Cleansing -Foul Odor after Cleansing -Negative Pressure Wound Therapy -Primary Dressing Applied -Primary Dressing Covered/Secured with -Aquacel Extra #2 LEFT ACHILLES -Ulcer Cleansing -Foul Odor after Cleansing -Negative Pressure Wound Therapy -Primary Dressing Applied -Other Dressing -Primary Dressing Covered/Secured with -Other Covering -Aquacel AG 4x4 #1- L HEEL -Ulcer Cleansing -Foul Odor after Cleansing -Negative Pressure Wound Therapy -Primary Dressing Applied -Other Dressing -Primary Dressing Covered/Secured with -Other Covering -Aquacel AG 4x4 Left -Lotion applied to leg before compression wrap -Compression Wrap Marco Wrap -Tubular Bandage Double Layer -Size of Tubigrip Used Size E -Size E ($) 2 -Other Treatment Response WC - Visit Discharge Discharge Condition Ambulatory Status Transportation Accompanied by Medication Reconcilliation completed & provided to patient/care provider Clinical Summary of Care Provided Assessment/Plan Assessment/Plan (1) Diabetic foot ulcer associated with type 2 diabetes mellitus: CODE(S): E11.621 - Type 2 diabetes mellitus with foot ulcer; L97.509 - Non-pressure chronic ulcer of other part of unspecified foot with unspecified severity QUALIFIERS: Diabetic foot ulcer location: heel Laterality: left Non-pressure ulcer stage: with fat layer exposed Qualified Code(s): E11.621 - Type 2 diabetes mellitus with foot ulcer; L97.422 - Non-pressure chronic ulcer o f left heel and midfoot with fat layer exposed (2) Hypertension: CODE(S): I10 - Essential (primary) hypertension (3) Hypothyroidism: CODE(S): E03.9 - Hypothyroidism, unspecified (4) Debility: CODE(S): R53.81 - Other malaise PLAN: Debridement done as documented above, patient tolerated well. Aquacel extra to all wounds with the exception of the ulceration on the left Achilles, Puraply AM #1 was applied to this and secured with stereos and wound veil, a 2 x 2 centimeter product was utilized and 100% was utilized with no wastage was advised to leave this product on for 1 week, may do every other day dressing changes of Aquacel extra cover with gauze and nurses hat for protection. At home wound-care instructions: See above. Compression: Double layer Tubigrip's Off-loading: The patient was instructed to avoid pressure and friction on the affected areas. Reposition every 2 hours at minimum. Avoid prolonged standing and/or dangling of legs. When seated, feet should be elevated at chest level. Frequent ambulation is encouraged. Did instruct patient to utilize her offloading boot as much as possible and to bring with her to her next visit Diet: Patient encouraged to increase protein intake while taking caution to avoid high carbohydrate and/or sugar intake. Patient is a non-smoker Labs/cultures/imaging: Patient tolerated only a couple days with the doxycycline due to her staph epidermidis, currently does not appear infected continue holding off on any further antibiotics. Routine baseline lab work ordered and reviewed with patient. Request prior imaging records including MRI and prior podiatry records. MRI was reviewed and was negative for osteomyelitis. Given her worsening wound size, x-ray ordered previously and showed chronic arthritic changes no concern for osteomyelitis. Given the delayed wound healing and fact that patient has new wounds will apply for advanced skin substitute purapply AM. Follow-up: Return to clinic in 1 week for re-evaluation. Return sooner or report to the emergency room should symptoms worsen, or new symptoms arise. This note was generated with [employer] dictation software. It may contain incorrect words, spelling, and punctuation that were not noted in checking the note before signing. I have spent 25 minutes today reviewing labs, records, and history. Time includes coordinating care, interpretation of tests, and counseling the patient/family. This also includes time I spent with the patient for exam, treatment plan, and education as well as documenting clinical information in the electronic health record.
[2021-12-26 15:06] VITALS: BP 172/70; PULSE 68; TEMP 36.6; BMI 28.6
--- NOTE | 2021-12-26 17:25 | PCM.WC.PN ---
History of Present Illness Date of Service: 12/26/21 Chief Complaint: Diabetic foot ulcer left heel History of Wound: This is a 71-year-old white female who presents to the wound healing center today with complaint of diabetic foot ulcer to the left heel. She has a past medical history significant for type 2 diabetes mellitus (most recent A1c said to be 6), hypertension, hypothyroidism. The patient states that over the last 3 to 4 months she has had issues with a ulceration to her left heel. She has been following Dr. Shaver podiatry who has had patient in an offloading boot and patient said that she has been utilizing Silvadene as wound care covering with gauze. She states that her primary care did order an MRI of the heel as well which was said to be negative. She was placed on antibiotics at 1 point but states that she is no longer on these. She states that her wound does seem to be improving, however is improving slowly. She denies any purulent drainage or any systemic signs of infection such as fever or chills. She denies any other aggravating relieving factors. Past medical, family, and social history reviewed and not pertinent to the current visit and all other systems reviewed and negative with exception of those listed above. In November 2021, the patient did develop 2 new ulcerations on her left great toe and her left Achilles Progress of Wound: Patient's left heel ulcer is stable and improved, however her other ulcers on the left great toe and 1 on the left Achilles continues to have delayed wound healing, second application of Puraply am to the left achilles today. Denies any signs and symptoms of infection at this time. Objective Data Objective Data Vital Signs: Vital Signs Temp Pulse Resp BP 97.8 F 68 18 172/70 H 12/26/21 15:06 12/26/21 15:06 12/19/21 14:48 12/26/21 15:06 Weight: 172 lb Body Mass Index (BMI) 28.6 Charges/Coding Procedures Integumentary 150xxx-152xx: 89106 Skin sub graft trnk/arm/leg Physical Exam Const alert, oriented x3, no apparent distress, healthy appearing and well nourished General Appearance: cooperative Exam Limitations: no limitations HEENT normocephalic Head and Scalp: normal to inspection Mouth: oral and palatal mucosa normal Eyes General Eye: normal appearance of both eyes Resp normal respiratory effort, normal air movement and no use of accessory muscles Effort and Inspection: able to speak in complete sentences Auscultation: clear to auscultation bilaterally Cardio regular rate, regular rhythm, S1 normal heart sound, S2 normal heart sound, no murmurs and peripheral pulses 2+ throughout Palpation: normal PMI Rate: regular rate Heart Sounds: S1 normal and S2 normal GI normal to inspection, nondistended, normoactive bowel sounds, soft to palpation, non-tender and non-distended Palpation: soft Extremity normal to inspection and full ROM General Extremity: normal exam except as noted Skin Skin Narrative: Wound present to left heel with adherent slough and less drainage and maceration noted this week, diabetic foot ulcer present on left great toe and also left Achilles with adherent slough, no purulence or erythema or warmth noted at this time. Chronic venous changes present bilateral lower extremities and dorsal pedis pulses 2+ Neuro oriented x3 and moves all extremities Sensorium / Orientation: awake, alert, oriented to person, oriented to place and oriented to time Psych mental status grossly normal, thought process normal and denies hallucinations Appearance: grossly normal Attitude: calm Activity / Motor Behavior: appropriate eye contact Speech: normal speech Thought Process: normal thought process Thought Content: normal thought content Attention / Concentration: attention grossly intact Insight: insight good Judgement: judgement good Debridement Note Debridement Note Wound debrided: Right great toe diabetic foot ulcer Laterality: Right Type of Debridement: Excisional debridement Anesthesia Used: 5% Lidocaine Gel Depth: Down to and including healthy tissue and in the subcutaneous layer Percentage of wound debrided: 100 Instrument Used: 3mm curette, 5mm curette and #15 blade Tissue Removed: Slough and devitalized tissue Severity: Fat Layer Exposed Amount of bleeding with debridement: Mild Bleeding Controlled with: Pressure Patient tolerated procedure: Patient tolerated procedure well Post-Debridement Measurements and Additional Note: Post-Debridement Measurements/Treatment WC - Nurse 1 - General Ulcer Assessment Start: 12/05/21 13:23 Freq: Status: Active Protocol: MAYO Activity Type Activity Date Activity User E-Sign Co-Sign Detail Recorded Client Recorded Date Recorded By Document 12/05/21 13:23 KR [id number] 12/05/21 13:25 KR Document 12/12/21 15:17 AK [id number] 12/12/21 15:22 AK Document 12/19/21 14:48 DL [id number] 12/19/21 14:59 DL Document 12/26/21 15:06 KR [id number] 12/26/21 15:12 KR 12/05/21 12/12/21 12/19/21 13:23 15:17 14:48 WC - Today's Visit Information Type of service Nurse-only Follow-up Visit Follow-up Visit Visit (Physician/CLAIM ATTORNEY (Physician/CLAIM ATTORNEY ) ) Arrival Mode Wheelchair Ambulatory Ambulatory Transfer Assistance None Patient Identification Verified (Name & Yes Yes Yes ) Patient Requires Transmission-Based No Precautions Safety Precautions NA Finger Stick Blood Sugar(mg/dl) (if 108 indicated): Blood Sugar Stated by Patient Height and Weight Body Mass Index (BMI) 28.6 28.6 28.6 BMI Classification Overweight Overweight Overweight Vital Signs Temperature (97.8 F-99.1 F) 97.4 F L 96.3 F L 98.3 F Temperature Source Temporal Temporal Temporal Pulse Rate (60-100) 91 94 80 Pulse Location Monitor Monitor Monitor Respiratory Rate (12-18) 18 Respiratory rate source Observation Blood Pressure (90/60-120/80) 138/60 H 151/71 H 133/62 H Blood Pressure Mean (mm Hg) 86 97 85 Source Monitor Monitor Monitor Position Semi-Fowlers Blood Pressure Location Right Arm History Since Last Visit- (Skip if this is Patient's initial visit) Have you changed medications since your No No No last visit? Any new allergies or adverse reactions No No No Had a fall/change in ADL's that may No No No increase risk of falls Signs or symptoms of abuse and/or No No No neglect since last visit Have you been in the hospital since your No No No last visit? Has dressing in place as prescribed Yes Yes Yes Has compression in place as prescribed Yes No Yes Has offloadiing in place as prescribed N/A N/A Yes Experienced any changes in pain level or No No No management Left Footwear Regular Shoe Surgical Shoe with pressure relief insole Right Footwear Regular Shoe Pain Scale: 0-10 Numeric Is Patient Pain Free? Yes Yes Yes 12/26/21 15:06 WC - Today's Visit Information Type of service Follow-up Visit (Physician/CLAIM ATTORNEY ) Arrival Mode Ambulatory Transfer Assistance Patient Identification Verified (Name & Yes ) Patient Requires Transmission-Based Precautions Safety Precautions Finger Stick Blood Sugar(mg/dl) (if indicated): Blood Sugar Height and Weight Body Mass Index (BMI) 28.6 BMI Classification Overweight Vital Signs Temperature (97.8 F-99.1 F) 97.8 F Temperature Source Temporal Pulse Rate (60-100) 68 Pulse Location Monitor Respiratory Rate (12-18) Respiratory rate source Blood Pressure (90/60-120/80) 172/70 H Blood Pressure Mean (mm Hg) 104 Source Monitor Position Semi-Fowlers Blood Pressure Location Right Arm History Since Last Visit- (Skip if this is Patient's initial visit) Have you changed medications since your No last visit? Any new allergies or adverse reactions No Had a fall/change in ADL's that may No increase risk of falls Signs or symptoms of abuse and/or No neglect since last visit Have you been in the hospital since your No last visit? Has dressing in place as prescribed Yes Has compression in place as prescribed N/A Has offloadiing in place as prescribed N/A Experienced any changes in pain level or No management Left Footwear Regular Shoe Right Footwear Regular Shoe Pain Scale: 0-10 Numeric Is Patient Pain Free? Yes WC - Nurse 1 - General Ulcer Measurement Start: 12/05/21 13:23 Freq: Status: Active Protocol: Activity Type Activity Date Activity User E-Sign Co-Sign Detail Recorded Client Recorded Date Recorded By Document 12/12/21 15:17 AK [id number] 12/12/21 15:22 AK Document 12/19/21 14:48 DL [id number] 12/19/21 14:59 DL Document 12/26/21 15:06 KR [id number] 12/26/21 15:12 KR 12/12/21 12/19/21 12/26/21 15:17 14:48 15:06 Wound Center Nurse 1 #3 LEFT GREAT TOE -Current Size (cm) - Length 1.3 1 -Current Size (cm) - Width 0.7 0.5 -Current Size (cm) - Depth 0.1 0.1 -Total Square Cm 0.91 0.5 -Photo Taken No -Exudate Amt Small Small -Exudate Type Serosanguineous Serosanguineous -Wound Margin Indistinct, Non Distinct, -Visible Outline Attached -Granulation Amt Large (67-100%) Medium (34-66%) -Granulation Quality Pale,[place] Pale -Necrosis Amt Small (1-33%) Medium (34-66%) -Necrotic Tissue Type Adherent Slough Adherent Slough -Structure Exposed N/A -Texture (Mare-wound Skin Appearance) Scarring Assessed, Scarring -Moisture (Mare-wound Skin Appearance) Dry/Scaly No Abnormality, Assessed -Color (Mare-wound Skin Appearance) No Abnormality No Abnormality, Assessed -Temperature (Mare-wound Skin No Abnormality No Abnormality Appearance) (Pt Warm) (Pt Warm) -Tenderness on Palpation (Mare-wound No No Skin Appearance) -Ulcer Cleansing Soap and Water Soap and Water -Foul Odor after Cleansing No No -Anesthetic Used 4% Lidocaine 5% Lidocaine Solution Gel #2 LEFT ACHILLES -Current Size (cm) - Length 1 3 -Current Size (cm) - Width 1 2.6 -Current Size (cm) - Depth 0.2 0.1 -Total Square Cm 1 7.8 -Photo Taken No -Exudate Amt None Present Small -Exudate Type Serosanguineous -Wound Margin Thickened Distinct, Outline Attached -Granulation Amt None Present (0 %) -Necrosis Amt Large (67-100%) -Necrotic Tissue Type Eschar Adherent Slough -Structure Exposed N/A -Texture (Mare-wound Skin Appearance) Scarring Assessed, Scarring -Moisture (Mare-wound Skin Appearance) Dry/Scaly No Abnormality, Assessed -Color (Mare-wound Skin Appearance) Assessed No Abnormality, Assessed -Temperature (Mare-wound Skin No Abnormality No Abnormality Appearance) (Pt Warm) (Pt Warm) -Tenderness on Palpation (Mare-wound No No Skin Appearance) -Ulcer Cleansing Soap and Water Rinsed/ Irrigated with Saline -Foul Odor after Cleansing No No -Anesthetic Used 5% Lidocaine 5% Lidocaine Gel Gel #1- L HEEL -Combined with other wound No -Current Size (cm) - Length 0.5 0.3 -Current Size (cm) - Width 1.1 0.7 -Current Size (cm) - Depth 0.1 0.1 -Total Square Cm 0.55 0.21 -Photo Taken No No -Epithelialization None Present -Tunneling No -Undermining/Tunneling No -Circular Undermining No -Exudate Amt Medium None Present -Exudate Type Serosanguineous -Wound Margin Distinct, Distinct, Outline Outline Attached Attached -Granulation Amt Small (1-33%) -Granulation Quality Pale,[place] -Slough/Fibrin Yes -Necrosis Amt Small (1-33%) None Present (0 %) -Structure Exposed N/A N/A -Texture (Mare-wound Skin Appearance) Assessed,Callus Callus,Rash -Moisture (Mare-wound Skin Appearance) Assessed Dry/Scaly -Color (Mare-wound Skin Appearance) No Abnormality, No Abnormality Assessed -Temperature (Mare-wound Skin No Abnormality No Abnormality Appearance) (Pt Warm) (Pt Warm) -Tenderness on Palpation (Mare-wound Yes No Skin Appearance) -Ulcer Cleansing Rinsed/ Soap and Water Irrigated with Saline -Foul Odor after Cleansing No No -Anesthetic Used 4% Lidocaine 5% Lidocaine Solution Gel Left Ankle (cm) 25 Left Foot (cm) 38.5 WC - Nurse 2 - General Ulcer CM Notes Start: 12/05/21 13:23 Freq: Status: Active Protocol: Activity Type Activity Date Activity User E-Sign Co-Sign Detail Recorded Client Recorded Date Recorded By Document 12/12/21 15:38 MW [id number] 12/12/21 15:52 MW Document 12/19/21 15:21 MW [id number] 12/19/21 15:40 MW Document 12/26/21 15:17 MW [id number] 12/26/21 15:40 MW Edit Result 12/26/21 15:17 MW (1) [id number] 12/26/21 15:43 MW (1) #2 LEFT ACHILLES - Apply Skin Sub - 1st 25 sq cm - Legs => 1 - Apply Skin Sub - 1st 25 sq cm - Feet 1 => 12/12/21 12/19/21 12/26/21 15:38 15:21 15:17 Wound Center Nurse 2 #3 LEFT GREAT TOE -Time 15:48 15:21 15:17 -Correct Patient Yes Yes Yes -Correct Side, Site, Position Yes Yes Yes -Correct Procedure Yes Yes Yes -Procedure Performed Yes Yes Yes -Type of Procedure Debridement Debridement Debridement -Clinical Debridement Subcutaneous Subcutaneous Subcutaneous -Tissue Removed Subcutaneous Subcutaneous Subcutaneous -Post Debridement (cm) - Length 1.0 1.0 3.4 -Post Debridement (cm) - Width 1.5 1.5 1.0 -Post Debridement (cm) - Depth 0.1 0.1 0.1 -Total Square (Post) (cm) 1.50 1.50 3.40 -Area of Debridement (cm) - Length 1.0 1.0 3.4 -Area of Debridement (cm) - Width 1.5 1.5 1.0 -Total Square (Area) (cm) 1.50 1.50 3.40 -Tunneling No No No -Undermining/Tunneling No No No -Circular Undermining No No No -Wound/Ulcer Outcome Not Healed Not Healed Not Healed -Ulcer Cleansing Rinsed/ Rinsed/ Rinsed/ Irrigated with Irrigated with Irrigated with Saline Saline Saline -Foul Odor after Cleansing No No No -Bioengineered Tissue No No No -Bleeding Controlled with Pressure Pressure Pressure -Treatment Response Procedure Procedure Procedure Tolerated Well Tolerated Well Tolerated Well -Offloading No No No -Debridement - Subq, 1st 20sq cm No Yes Yes #2 LEFT ACHILLES -Time 15:46 15:21 15:17 -Correct Patient Yes Yes Yes -Correct Side, Site, Position Yes Yes Yes -Correct Procedure Yes Yes Yes -Procedure Performed Yes Yes Yes -Type of Procedure Debridement Debridement Debridement -Clinical Debridement Subcutaneous Subcutaneous Subcutaneous -Tissue Removed Subcutaneous Subcutaneous Subcutaneous -Post Debridement (cm) - Length 2.0 2.0 2.0 -Post Debridement (cm) - Width 1.5 1.5 1.8 -Post Debridement (cm) - Depth 0.2 0.2 0.2 -Total Square (Post) (cm) 3.00 3.00 3.60 -Area of Debridement (cm) - Length 2.0 2.0 2.0 -Area of Debridement (cm) - Width 1.5 1.5 1.8 -Total Square (Area) (cm) 3.00 3.00 3.60 -Tunneling No No No -Undermining/Tunneling No No No -Circular Undermining No No No -Wound/Ulcer Outcome Not Healed Not Healed Not Healed -Ulcer Cleansing Rinsed/ Rinsed/ Rinsed/ Irrigated with Irrigated with Irrigated with Saline Saline Saline -Foul Odor after Cleansing No No No -Bioengineered Tissue No Yes Yes -Type of Bioengineered Tissue PuraPly AM PuraPly AM -Expiration Date 01/20/24 03/29/24 -Product Lot Number [id number] -Percent Used 100 100 -Lot number of Saline Used [id number] -Bleeding Controlled with Pressure Pressure Pressure -Treatment Response Procedure Procedure Procedure Tolerated Well Tolerated Well Tolerated Well -Offloading No No No -Debridement - Subq, 1st 20sq cm No No No -Apply Skin Sub - 1st 25 sq cm - Legs 1 1 -PuraPly AM (per sq cm) 4 4 #1- L HEEL -Time 15:39 15:21 15:18 -Correct Patient Yes Yes Yes -Correct Side, Site, Position Yes Yes Yes -Correct Procedure Yes Yes Yes -Procedure Performed Yes Yes Yes -Type of Procedure Debridement Debridement Debridement -Clinical Debridement Subcutaneous Subcutaneous Subcutaneous -Tissue Removed Subcutaneous Subcutaneous Subcutaneous -Post Debridement (cm) - Length 1.5 0.6 1.0 -Post Debridement (cm) - Width 1.0 1.2 0.3 -Post Debridement (cm) - Depth 0.1 0.1 0.1 -Total Square (Post) (cm) 1.50 0.72 0.30 -Area of Debridement (cm) - Length 1.5 0.6 1.0 -Area of Debridement (cm) - Width 1.0 1.2 0.3 -Total Square (Area) (cm) 1.50 0.72 0.30 -Tunneling No No No -Undermining/Tunneling No No No -Circular Undermining No No No -Wound/Ulcer Outcome Not Healed Not Healed Not Healed -Ulcer Cleansing Rinsed/ Rinsed/ Rinsed/ Irrigated with Irrigated with Irrigated with Saline Saline Saline -Foul Odor after Cleansing No No No -Bioengineered Tissue No No No -Bleeding Controlled with Pressure Pressure Pressure -Treatment Response Procedure Procedure Procedure Tolerated Well Tolerated Well Tolerated Well -Offloading No No No -Debridement - Subq, 1st 20sq cm Yes No No Pain Scale: 0-10 Numeric Is Patient Pain Free? Yes Yes Yes WC - Nurse 3 - General Ulcer D/C NN Start: 12/05/21 13:23 Freq: Status: Active Protocol: Activity Type Activity Date Activity User E-Sign Co-Sign Detail Recorded Client Recorded Date Recorded By Document 12/05/21 13:23 RAUDEL [id number] 12/05/21 13:25 KR Document 12/12/21 15:52 MW [id number] 12/12/21 15:54 MW Document 12/19/21 15:47 DL [id number] 12/19/21 15:50 DL Document 12/19/21 15:51 AK [id number] 12/19/21 15:52 AK Document 12/26/21 15:45 MW [id number] 12/26/21 15:50 MW Edit Result 12/26/21 15:45 MW (1) [id number] 12/26/21 15:50 MW (1) #3 LEFT GREAT TOE - Primary Dressing Applied Aquacel Extra => Aquacel Extra,C => Hydrogel ($) 12/05/21 12/12/21 12/19/21 13:23 15:52 15:47 Vital Signs Temperature (97.8 F-99.1 F) 97.4 F L Temperature Source Temporal Pulse Rate (60-100) 91 Pulse Location Monitor Blood Pressure (90/60-120/80) 138/60 H Blood Pressure Mean (mm Hg) 86 Source Monitor Position Semi-Fowlers Blood Pressure Location Right Arm Pain Scale: 0-10 Numeric Is Patient Pain Free? Yes Yes Yes Teaching: Wound Center Dressing Your Wound -Person Taught Patient,Family -Teaching Method Discussion, Demonstration -Response to teaching Verbalize understanding Wound Care Nurse 3 #3 LEFT GREAT TOE -Ulcer Cleansing Rinsed/ Irrigated with Saline -Foul Odor after Cleansing No -Negative Pressure Wound Therapy N/A -Primary Dressing Applied Aquacel Extra Aquacel Extra -Primary Dressing Covered/Secured with Dry Gauze & Dry Gauze, Roll Gauze, Secured with Secured with Tape Tape -Aquacel Extra 1 1 #2 LEFT ACHILLES -Ulcer Cleansing Rinsed/ Irrigated with Saline -Foul Odor after Cleansing No -Negative Pressure Wound Therapy N/A -Primary Dressing Applied Aquacel AG 4x4 -Other Dressing AQUACEL EXTRA -Primary Dressing Covered/Secured with Dry Gauze & Dry Gauze & Roll Gauze, Roll Gauze, Secured with Secured with Tape Tape -Other Covering ABD PAD -Aquacel AG 4x4 0 #1- L HEEL -Ulcer Cleansing Rinsed/ Rinsed/ Irrigated with Irrigated with Saline Saline -Foul Odor after Cleansing No -Negative Pressure Wound Therapy N/A -Primary Dressing Applied Aquacel AG 4x4 Aquacel AG 4x4 -Other Dressing ABD AQUACEL EXTRA ABD -Primary Dressing Covered/Secured with Dry Gauze,Dry Dry Gauze & Dry Gauze & Gauze & Roll Roll Gauze, Roll Gauze, Gauze,Secured Secured with Secured with with Tape Tape Tape -Other Covering ABD PAD -Aquacel AG 4x4 1 0 Left -Lotion applied to leg before No compression wrap -Compression Wrap Marco Wrap -Tubular Bandage -Size of Tubigrip Used -Size E ($) -Other TUBIGRIP Treatment Response Procedure Tolerated Well WC - Visit Discharge Discharge Condition Stable Stable Stable Ambulatory Status Wheelchair Ambulatory Transportation Private Auto Private Auto Private Auto Accompanied by SON son Medication Reconcilliation completed & No Yes provided to patient/care provider Clinical Summary of Care Provided Yes Yes 12/19/21 12/26/21 15:51 15:45 Vital Signs Temperature (97.8 F-99.1 F) Temperature Source Pulse Rate (60-100) Pulse Location Blood Pressure (90/60-120/80) Blood Pressure Mean (mm Hg) Source Position Blood Pressure Location Pain Scale: 0-10 Numeric Is Patient Pain Free? Yes Yes Teaching: Wound Center Dressing Your Wound -Person Taught Patient,Family -Teaching Method Discussion -Response to teaching Verbalize understanding Wound Care Nurse 3 #3 LEFT GREAT TOE -Ulcer Cleansing Not Cleansed -Foul Odor after Cleansing No -Negative Pressure Wound Therapy N/A -Primary Dressing Applied Aquacel Extra,C Hydrogel ($) -Primary Dressing Covered/Secured with Dry Gauze & Roll Gauze, Secured with Tape -Aquacel Extra 1 #2 LEFT ACHILLES -Ulcer Cleansing Not Cleansed -Foul Odor after Cleansing No -Negative Pressure Wound Therapy N/A -Primary Dressing Applied -Other Dressing aquacel extra -Primary Dressing Covered/Secured with Dry Gauze & Roll Gauze, Secured with Tape -Other Covering -Aquacel AG 4x4 #1- L HEEL -Ulcer Cleansing Not Cleansed -Foul Odor after Cleansing -Negative Pressure Wound Therapy -Primary Dressing Applied -Other Dressing aquacel extra -Primary Dressing Covered/Secured with Dry Gauze & Roll Gauze, Secured with Tape -Other Covering -Aquacel AG 4x4 Left -Lotion applied to leg before No compression wrap -Compression Wrap Marco Wrap Marco Wrap -Tubular Bandage Double Layer -Size of Tubigrip Used Size E -Size E ($) 2 -Other double layer tubigrip Treatment Response Procedure Tolerated Well WC - Visit Discharge Discharge Condition Stable Ambulatory Status Ambulatory Transportation Private Auto Accompanied by son Medication Reconcilliation completed & No provided to patient/care provider Clinical Summary of Care Provided Yes Assessment/Plan Assessment/Plan (1) Diabetic foot ulcer associated with type 2 diabetes mellitus: CODE(S): E11.621 - Type 2 diabetes mellitus with foot ulcer; L97.509 - Non-pressure chronic ulcer of other part of unspecified foot with unspecified severity QUALIFIERS: Diabetic foot ulcer location: heel Laterality: left Non-pressure ulcer stage: with fat layer exposed Qualified Code(s): E11.621 - Type 2 diabetes mellitus with foot ulcer; L97.422 - Non-pressure chronic ulcer of left heel and midfoot with fat layer exposed (2) Hypertension: CODE(S): I10 - Essential (primary) hypertension (3) Hypothyroidism: CODE(S): E03.9 - Hypothyroidism, unspecified (4) Debility: CODE(S): R53.81 - Other malaise PLAN: Debridement done as documented above, patient tolerated well. Aquacel extra to all wounds with the exception of the ulceration on the left Achilles, Puraply AM #2 was applied to this and secured with stereos and wound veil, a 2 x 2 centimeter product was utilized and 100% was utilized with no wastage was advised to leave this product on for 1 week, may do every other day dressing changes of Aquacel extra cover with gauze and nurses hat for protection. At home wound-care instructions: See above. Compression: Double layer Tubigrip's Off-loading: The patient was instructed to avoid pressure and friction on the affected areas. Reposition every 2 hours at minimum. Avoid prolonged standing and/or dangling of legs. When seated, feet should be elevated at chest level. Frequent ambulation is encouraged. Did instruct patient to utilize her offloading boot as much as possible and to bring with her to her next visit Diet: Patient encouraged to increase protein intake while taking caution to avoid high carbohydrate and/or sugar intake. Patient is a non-smoker Labs/cultures/imaging: Patient tolerated only a couple days with the doxycycline due to her staph epidermidis, currently does not appear infected continue holding off on any further antibiotics. Routine baseline lab work ordered and reviewed with patient. Request prior imaging records including MRI and prior podiatry records. MRI was reviewed and was negative for osteomyelitis. Given her worsening wound size, x-ray ordered previously and showed chronic arthritic changes no concern for osteomyelitis. Given the delayed wound healing and fact that patient has new wounds will apply for advanced skin substitute purapply AM. Follow-up: Return to clinic in 1 week for re-evaluation. Return sooner or report to the emergency room should symptoms worsen, or new symptoms arise. This note was generated with [employer] dictation software. It may contain incorrect words, spelling, and punctuation that were not noted in checking the note before signing. I have spent 25 minutes today reviewing labs, records, and history. Time includes coordinating care, interpretation of tests, and counseling the patient/family. This also includes time I spent with the patient for exam, treatment plan, and education as well as documenting clinical information in the electronic health record.
== END 2021-12-28 23:59 | disposition home or self-care (01) ==
LOC: WC 15:00
PROVIDERS: PCP Family Medicine; Visit Provider Nurse Practitioner Family
DX: E11.621 Type 2 diabetes mellitus with foot ulcer (principal); L97.422 Non-pressure chronic ulcer of left heel and midfoot with fat layer exposed; L97.522 Non-pressure chronic ulcer of other part of left foot with fat layer exposed; I10 Essential (primary) hypertension
CPT/HCPCS: 11042; 15271; 15275; 87070; 87075; 87077; 87186; 87205; 99212; Q4196; G0463

== ENCOUNTER 2022-01-14 17:39 | Inpatient (IN) | payer MEDICARE, SELFPAY ==
[2022-01-14 17:40] VITALS: BP 111/64; PULSE 74; RESP 18; TEMP 37.2; O2SAT 100; BMI 29.1
--- NOTE | 2022-01-14 18:53 | ED.VIS.LOWEX ---
HPI History of Present Illness HPI Narrative: Patient presents with an open wound to her left great toe that has been getting worse over the past few days. Patient was seen at the wound care center yesterday. Patient had x-rays and blood work done at that time. X-rays did not show any evidence of osteomyelitis. Blood work did show an increased CRP and sed rate. Patient states she had a fever up to 102. Patient states she also has a wound on her left heel that is healing well. Patient is diabetic and has a history of neuropathy. Patient denies any pain. Patient denies any trauma. Chief Complaint: Lower Extremity Injury Informant: patient and family Onset/Context/Timing Onset: Days Context: Gradual Onset Timing: Continuous Current Severity: Gone Worsened by: Nothing Relieved by: Nothing Associated Symptoms Associated Symptoms: Positive for Parasthesia; Negative for Weakness and Loss of Funtion [facility] Medical History Diabetes Diabetic foot ulcer associated with type 2 diabetes mellitus Hypothyroidism Neuropathy Home Medications alprazolam 0.5 mg PO TID PRN PRN 07/16/20 [History Last Taken Unknown] clopidogrel 75 mg PO DAILY 07/16/20 [History Last Taken Unknown] ergocalciferol (vitamin D2) 1.25 unit PO QWEEK 07/16/20 [History Last Taken Unknown] furosemide 40 mg PO DAILY 07/16/20 [History Last Taken Unknown] gabapentin 600 mg PO BIDCM 07/16/20 [History Last Taken Unknown] glimepiride 4 mg PO DAILY 07/16/20 [History Last Taken Unknown] hydrocodone-acetaminophen 1 ea PO BID PRN PRN 07/16/20 [History Last Taken Unknown] insulin detemir U-100 28 unit SQ DAILY 07/16/20 [History Last Taken Unknown] levothyroxine 50 mcg PO DAILY 07/16/20 [History Last Taken Unknown] potassium chloride 20 meq PO DAILYCM #30 tab 07/19/20 [Rx Last Taken Unknown] hydrochlorothiazide 25 mg PO DAILY 10/31/21 [History Last Taken Unknown] ramipril 10 mg PO DAILY 10/31/21 [History Last Taken Unknown] semaglutide [Ozempic] 0.25 mg SUBCUT QWEEK 10/31/21 [History Last Taken Unknown] Allergy/AdvReac Type Severity Reaction Status Date / Time No Known Allergies Allergy Verified 01/14/22 17:42 Social History Smoking Status: Never smoker ROS ROS ED Constitutional Constitutional ED: Reports chills and fever(s) Eyes Eyes: Denies blurry vision or change in vision ENT ENT ED: Denies rhinorrhea or sore throat Cardiovascular Cardiovascular: Denies chest pain or palpitations Respiratory/Chest Respiratory/Chest: Denies cough or dyspnea Gastrointestinal Gastrointestinal: Denies nausea or vomiting Genitourinary Genitourinary ED: Denies dysuria or hematuria Musculoskeletal Musculoskeletal: Denies back pain or neck pain Integumentary Denies abscess or rash Neurologic Neurologic: Denies headache(s) or weakness Allergic/Immunologic Allergic/Immunologic ED: Denies mouth swelling or urticaria EXAM Physical Exam Const Vital Signs: 01/14/22 17:40 01/14/22 21:00 01/14/22 21:27 Temperature 99 F 98.7 F Temperature Source Temporal Oral Pulse Rate 74 74 Respiratory Rate 18 16 17 Blood Pressure 111/64 131/61 H Blood Pressure Mean 79 84 Pulse Ox 100 95 Oxygen Delivery Method Room Air Room Air Room Air Positive well nourished and well developed General Appearance ED: well developed and NAD HEENT Reports moist mucous membranes Neck full ROM and supple Extremity Extremity Narrative: There is an open wound over the medial aspect of the distal phalanx of the left great toe. There is some purulent drainage noted. There is no fluctuance. There is no tenderness. Capillary refill was less than 2 seconds in all digits. Sensation was decreased to light touch in all digits. Pedal pulses were equal bilaterally. Neuro oriented x3, CN's II-XII intact bilaterally and moves all extremities Sensorium / Orientation: alert Motor Exam: strength 5/5 throughout Psych mental status grossly normal MDM MDM MDM Narrative Medical decision making narrative: X-rays and lab work from yesterday were reviewed. 3 views of x-rays of the left foot showed some degenerative changes. There is no evidence of osteomyelitis. These were interpreted by the radiologist and reviewed by myself. Lab work from yesterday showed an elevated CRP and sed rate. There is no leukocytosis. Repeat blood work was obtained including blood cultures and lactate. Patient was given a dose of Zosyn and vancomycin here. CBC shows a hemoglobin of 11.2 hematocrit 34.1. White blood cell count was normal at 11. PT was INR and PTT were essentially within normal limits. Comprehensive metabolic profile with was essentially within normal limits. Lactate was elevated at 2.8. Case was discussed with the hospitalist. He will admit the patient to his service. Patient and family understood and were agreeable with the plan. All questions were answered. Lab Data Attestation: I reviewed the patient's lab results. Labs: Laboratory Results - last 24 hr 01/14/22 01/14/22 01/14/22 19:20 19:20 19:20 WBC 11.0 RBC 3.73 L Hgb 11.2 L Hct 34.1 L MCV 91.4 MCH 30.0 MCHC 32.8 RDW Std Deviation 41.9 RDW Coeff of Pedro 12.5 Plt Count 318 MPV 10.8 Immature Gran % (Auto) 1.500 H Neut % (Auto) 75.0 H Lymph % (Auto) 14.1 L [place] % (Auto) 8.3 Eos % (Auto) 0.8 Baso % (Auto) 0.3 Absolute Neuts (auto) 8.3 H Absolute Lymphs (auto) 1.55 Nucleated RBC % 0 PT 15.0 H INR 1.2 APTT 35.5 Sodium 136 Potassium 3.8 Chloride 99 Carbon Dioxide 29.0 Anion Gap 8 BUN 20 H Creatinine 1.17 H Estim Creat Clear Calc 38.53 Est GFR (MDRD) Af Amer 58 L Est GFR (MDRD) Non-Af 48 L BUN/Creatinine Ratio 17.1 Glucose 49 L Lactic Acid Calcium 8.9 Total Bilirubin 0.20 AST 31 ALT 23 Alkaline Phosphatase 52 Total Protein 6.9 Albumin 2.5 L Globulin 4.4 H Albumin/Globulin Ratio 0.6 L 01/14/22 19:20 WBC RBC Hgb Hct MCV MCH MCHC RDW Std Deviation RDW Coeff of Pedro Plt Count MPV Immature Gran % (Auto) Neut % (Auto) Lymph % (Auto) [place] % (Auto) Eos % (Auto) Baso % (Auto) Absolute Neuts (auto) Absolute Lymphs (auto) Nucleated RBC % PT INR APTT Sodium Potassium Chloride Carbon Dioxide Anion Gap BUN Creatinine Estim Creat Clear Calc Est GFR (MDRD) Af Amer Est GFR (MDRD) Non-Af BUN/Creatinine Ratio Glucose Lactic Acid 2.8 H* Calcium Total Bilirubin AST ALT Alkaline Phosphatase Total Protein Albumin Globulin Albumin/Globulin Ratio Discharge Plan Triage Chief Complaint: Lower Extremity Injury ED Provider: Rafael Perez Dx/Rx/DC Orders Clinical Impression: Wound infection, Type 2 diabetes mellitus, Diabetic foot ulcer associated with type 2 diabetes mellitus Prescriptions: No Action furosemide 40 MG tablet 40 mg PO DAILY RF: 0 gabapentin 600 MG tablet 600 mg PO BIDCM RF: 0 hydrocodone-acetaminophen 1 EACH tablet 1 ea PO BID PRN PRN (Reason: Not Specified) RF: 0 clopidogrel 75 MG tablet 75 mg PO DAILY RF: 0 levothyroxine 50 MCG tablet 50 mcg PO DAILY RF: 0 glimepiride 4 MG tablet 4 mg PO DAILY RF: 0 insulin detemir U-100 100 UNIT/ML solution 28 unit SQ DAILY RF: 0 alprazolam 0.5 MG tablet 0.5 mg PO TID PRN PRN (Reason: Anxiety) RF: 0 ergocalciferol (vitamin D2) 50,000 UNIT capsule 1.25 unit PO QWEEK RF: 0 potassium chloride 20 MEQ tablet 20 meq PO DAILYCM Qty: 30 RF: 0 hydrochlorothiazide 25 mg Tablet 25 mg PO DAILY RF: 0 ramipril 10 mg Tablet 10 mg PO DAILY RF: 0 Ozempic 0.25 mg or 0.5 mg(2 mg/1.5 mL) Pen Injector 0.25 mg SUBCUT QWEEK RF: 0 Primary Care Provider: Marion Roland Referrals: Marion Roland DO [Primary Care Provider] - Disposition Disposition: Acute Care Hospital [facility] [place]
[2022-01-14 19:40] LABS: Absolute Lymphocyte Count 1.55 X10^3/uL (0.83-4.51); Absolute Neutrophil Count 8.3 X10^3/uL (2.0-7.7); Basophil# 0.03 X10^3/uL; Basophil% 0.3 % (0-1); Eosinophil# 0.09 X10^3/uL; Eosinophils% 0.8 % (0-5); Hematocrit 34.1 % (37-47); Hemoglobin 11.2 g/dL (12.0-15.0); Lymphocyte # 1.55 X10^3/ul (0.83-4.51); Lymphocyte % 14.1 % (19-41); Mean Corp Hgb Conc 32.8 g/dL (32-36); Mean Corpuscular Volume 91.4 fL (81-99); Mean Platelet Vol. 10.8 fl (6.2-12.0); Monocyte# 0.92 X10^3/uL; Monocyte% 8.3 % (0-10); NRBC Flagged by Analyzer 0 % (0-5); Neutrophil # 8.27 X10^3/uL (2.7-7.7); Platelet Count 318 K/mm3 (150-450); RBC Distribution Width CV 12.5 % (11.6-14.6); RBC Distribution Width SD 41.9 fl (35.1-43.9); Red Blood Count 3.73 M/mm3 (4.2-5.4)
[2022-01-14 19:49] LABS: International Normalized Ratio 1.2
[2022-01-14 19:50] LABS: Partial Thromboplast Time 35.5 Seconds (24.1-36.2)
[2022-01-14 19:58] LABS: ALB/GLOB Ratio 0.6 RATIO (0.9-2.4); AST(SGOT) 31 U/L (15-37); Alanine Aminotransfer ALT/SGPT 23 U/L (13-56); Albumin, Serum 2.5 g/dL (3.2-5.0); Alkaline Phosphatase 52 U/L (45-117); Anion Gap 8 (5-15); BUN 20 mg/dL (7-18); BUN/Creat Ratio 17.1 RATIO (10-20); Calcium,Total 8.9 mg/dL (8.5-10.1); Chloride 99 mmol/L (98-107); Creatinine, Serum 1.17 mg/dL (0.55-1.02); EST Glomerular Filtration Rate 48 mL/min (>60); Est Glom Filt Rate - Afr Amer 58 mL/min (>60); Estimated Creatinine Clearance 38.53 ml/min; Globulin 4.4 g/dL (2.2-4.2); Glucose 49 mg/dL (74-106); Potassium 3.8 mmol/L (3.5-5.1); Protein, Total 6.9 g/dL (6.4-8.2); Sodium Level 136 mmol/L (136-145)
[2022-01-14 20:16] LABS: Lactic Acid 2.8 mmol/L (0.4-1.9)
[2022-01-14 21:00] VITALS: RESP 16
[2022-01-14 21:27] VITALS: BP 131/61; PULSE 74; RESP 17; TEMP 37.1; O2SAT 95
--- NOTE | 2022-01-14 22:01 | PCM.HP.STD ---
HPI - General General Date of Admission: 01/14/22 Date of Service: 01/14/22 Chief Complaint: Infected left great toe HPI Narrative RAGHAV GREGORY, is a 71 F who presents to the emergency room at [facility] for evaluation of a left great toe wound that she has had for the last several weeks. Patient has been on antibiotics since last Thursday, she complains of having a temperature at home up to 102 degrees, she complains of having chills, she is being seen at the wound care center at [facility] and she was seen yesterday, x-rays were obtained and performed on 01/13/2022 which showed marked soft tissue swelling and deformity of the great toe and fourth toe of the left foot. Patient went to [facility] ER today for an examination but did not agree to be hospitalized there and came to the ER for evaluation here. Work-up in the ER today included lab which showed a normal white blood cell count, hemoglobin was 11.2, creatinine was elevated at 1.17, BUN was 20, and lactic acid was 2.8. Examination of the patient's left foot reveals it to be warm on the dorsum of the left foot, there is deformity of the left great toe noted to be present along with redness of the toe and swelling. Patient will be admitted to [place] [id number] for deep wound infection of the left great toe unresponsive to outpatient treatment, she will be seen in consultation by podiatry in the morning, debridement or possible amputation of the left great toe may be necessary. Patient was given IV Zosyn and vancomycin in the ER, this will be continued on the floor. [facility] Medical History Diabetes Diabetic foot ulcer associated with type 2 diabetes mellitus Hypothyroidism Neuropathy Home Medications alprazolam 0.5 mg PO TID PRN PRN 07/16/20 [History Last Taken Unknown] clopidogrel 75 mg PO DAILY 07/16/20 [History Last Taken Unknown] ergocalciferol (vitamin D2) 1.25 unit PO QWEEK 07/16/20 [History Last Taken Unknown] furosemide 40 mg PO DAILY 07/16/20 [History Last Taken Unknown] gabapentin 600 mg PO BIDCM 07/16/20 [History Last Taken Unknown] glimepiride 4 mg PO DAILY 07/16/20 [History Last Taken Unknown] hydrocodone-acetaminophen 1 ea PO BID PRN PRN 07/16/20 [History Last Taken Unknown] insulin detemir U-100 28 unit SQ DAILY 07/16/20 [History Last Taken Unknown] levothyroxine 50 mcg PO DAILY 07/16/20 [History Last Taken Unknown] potassium chloride 20 meq PO DAILYCM #30 tab 07/19/20 [Rx Last Taken Unknown] hydrochlorothiazide 25 mg PO DAILY 10/31/21 [History Last Taken Unknown] ramipril 10 mg PO DAILY 10/31/21 [History Last Taken Unknown] semaglutide [Ozempic] 0.25 mg SUBCUT QWEEK 10/31/21 [History Last Taken Unknown] Allergy/AdvReac Type Severity Reaction Status Date / Time No Known Allergies Allergy Verified 01/14/22 17:42 Social History Smoking Status: Never smoker ROS Constitutional Constitutional: Reports chills and fever(s); Denies anorexia, change in weight, night sweats or weakness Eyes Eyes: Denies blurry vision, change in vision, discharge from eye(s) or eye pain Cardiovascular Cardiovascular: Denies chest pain, claudication, edema or palpitations Respiratory/Chest Respiratory/Chest: Denies cough, hemoptysis, shortness of breath at rest or shortness of breath with exertion Gastrointestinal Gastrointestinal: Denies abdominal pain, constipation, diarrhea, hematemesis, hematochezia, melena, nausea or vomiting Genitourinary Genitourinary: Denies dysuria, hematuria, urinary frequency, urinary hesitancy, urinary incontinence or urinary urgency Musculoskeletal Musculoskeletal: Reports other Details: Patient complains of increased redness and swelling of the left great toe over the last several days ; Denies back pain, joint pain, joint stiffness, joint swelling, myalgias or neck pain Neurologic Neurologic: Reports other Details: Patient has bilateral diabetic neuropathy of the feet ; Denies abnormal gait, abnormal speech, dizziness, focal weakness, headache(s), loss of vision, numbness, other visual disturbances, paresthesias, syncope or tingling Psychiatric Psychiatric: Denies anxiety, cognitive impairment, depression, irritability, mood swings or suicidal ideation Endocrine Endocrinology: Denies change in body appearance, cold intolerance, excessive sweating, heat intolerance, polydipsia or polyuria Hematologic/Lymphatic Hematologic/Lymphatic: Denies none, anemia, easy bleeding, easy bruising or lymphadenopathy Allergic/Immunologic Allergic/Immunologic: Denies rhinitis, urticaria, eczemia or asthma Vital Signs Vital Signs Vital Signs: 01/14/22 17:40 01/14/22 21:00 01/14/22 21:27 Temperature 99 F 98.7 F Temperature Source Temporal Oral Pulse Rate 74 74 Respiratory Rate 18 16 17 Blood Pressure 111/64 131/61 H Blood Pressure Mean 79 84 Pulse Ox 100 95 Oxygen Delivery Method Room Air Room Air Room Air Weight Weight: 79.379 kg Body Mass Index (BMI) 29.1 Physical Exam Const alert, oriented x3, no apparent distress and healthy appearing General Appearance: cooperative, well kempt and well developed Orientation / Consciousness: awake, oriented to person, oriented to place and oriented to time HEENT normocephalic, head/scalp atraumatic, hearing grossly normal bilaterally and moist oral mucous membranes Eyes PERRL, EOMs intact bilaterally and conjunctivae normal Neck nuchal rigidity, supple, no JVD, thyroid normal and no carotid bruits General: trachea midline Resp normal respiratory effort and clear to auscultation bilaterally Auscultation: Negative for rales, rhonchi or wheezes Cardio regular rate, regular rhythm, no murmurs, no rub and no gallops GI normal to inspection, nondistended, normoactive bowel sounds, soft to palpation, non-tender and non-distended Extremity Extremity Narrative: There is deformity and redness of the left great toe noted to be present, there is no open wound present on the left great toe, no drainage is noted from the area however. Dorsum of the left foot is warm to the touch and slightly reddened also Skin Skin Narrative: There is an open area noted over the end of the left great toe General Skin Exam: no breakdown Neuro oriented x3, CN's II-XII intact bilaterally and no sensory deficits noted Neuro Narrative: Patient has decreased sensation to light touch and pinprick over the feet bilaterally Sensorium / Orientation: awake and alert Speech: speech normal Psych affect normal Results Lab / Micro Data Result Diagrams: 01/14/22 19:20 01/14/22 19:20 Labs: Laboratory Results - last 24 hr 01/14/22 19:20: WBC 11.0, RBC 3.73 L, Hgb 11.2 L, Hct 34.1 L, MCV 91.4, MCH 30.0, MCHC 32.8, RDW Std Deviation 41.9, RDW Coeff of Pedro 12.5, Plt Count 318, MPV 10.8, Immature Gran % (Auto) 1.500 H, Neut % (Auto) 75.0 H, Lymph % (Auto) 14.1 L, [place] % (Auto) 8.3, Eos % (Auto) 0.8, Baso % (Auto) 0.3, Absolute Neuts (auto) 8.3 H, Absolute Lymphs (auto) 1.55, Nucleated RBC % 0 01/14/22 19:20: PT 15.0 H, INR 1.2, APTT 35.5 01/14/22 19:20: Sodium 136, Potassium 3.8, Chloride 99, Carbon Dioxide 29.0, Anion Gap 8, BUN 20 H, Creatinine 1.17 H, Estim Creat Clear Calc 38.53, Est GFR (MDRD) Af Amer 58 L, Est GFR (MDRD) Non-Af 48 L, BUN/Creatinine Ratio 17.1, Glucose 49 L, Calcium 8.9, Total Bilirubin 0.20, AST 31, ALT 23, Alkaline Phosphatase 52, Total Protein 6.9, Albumin 2.5 L, Globulin 4.4 H, Albumin/Globulin Ratio 0.6 L 01/14/22 19:20: Lactic Acid 2.8 H* Assessment & Plan Assessment/Plan (1) Type 2 diabetes mellitus: PLAN: 1. Neuropathic wound infection to the left great toe-nonresponsive to outpatient treatment-patient will be admitted to [facility] 3, she will be maintained on Zosyn and vancomycin, she will be seen in consultation by podiatry. I talked tonight by phone with Dr. Hairston. #2 type 2 diabetes-patient's blood sugar was low in the emergency room, I have elected to hold her home Amaryl, blood sugars will be monitored, she will receive sliding scale insulin via fingerstick blood sugars #3 diabetic neuropathy of the feet-makes recovery, prognosis, and management difficult #4 essential hypertension-patient will remain on her present medications #5 hypothyroidism-patient is on Synthroid #6 lactic acidosis-etiology unclear at this point, I do not feel the patient is septic #7 chronic anxiety-patient is on Xanax at home, this will be continued here Charges/Coding Visit Charges Inpatient E&M: 22028 Init Hosp L3
[2022-01-14 22:07] VITALS: BP 120/67; PULSE 71; RESP 17; TEMP 37; O2SAT 96
[2022-01-14 22:58] VITALS: BMI 32.9
[2022-01-14 23:13] VITALS: BP 122/62; PULSE 71; RESP 18; TEMP 36.3; O2SAT 97
--- NOTE | 2022-01-14 23:14 | PCM.RX.CS ---
Consult Pharmacy has been consulted to manage selected antiobiotic: Vancomycin Type of Consult: New start Prior Doses of Antibiotics Received/Current Regimen: Medications Vancomycin HCl 750 mg/ Sodium (Chloride) 265 mls @ 250 mls/hr IV Q24H VERO Discontinued Medications Vancomycin HCl 1,250 mg/ (Sodium Chloride) 275 mls @ 167 mls/hr IV X1 ONE Stop: 01/14/22 20:55 Last Admin: 01/14/22 22:08 Dose: Infused Documented by: Labs: Sodium 136 mmol/L (136-145) 01/14/22 19:20 Potassium 3.8 mmol/L (3.5-5.1) 01/14/22 19:20 Chloride 99 mmol/L (98-107) 01/14/22 19:20 Carbon Dioxide 29.0 mmol/L (21.0-32.0) 01/14/22 19:20 Anion Gap 8 (5-15) 01/14/22 19:20 BUN 20 mg/dL (7-18) H 01/14/22 19:20 Creatinine 1.17 mg/dL (0.55-1.02) H 01/14/22 19:20 Est GFR (MDRD) Af Amer 58 mL/min (>60) L 01/14/22 19:20 Est GFR (MDRD) Non-Af 48 mL/min (>60) L 01/14/22 19:20 BUN/Creatinine Ratio 17.1 RATIO (10-20) 01/14/22 19:20 Glucose 49 mg/dL (74-106) L 01/14/22 19:20 Weight used for dosin kg Estimated Creatinine Clearance: 38.5 Goal Trough: 10-15 mcg/mL Pharmacy Plan for Drug Dosing: Pharmacy Service will continue to monitor and adjust dosing as required. Follow-Up Labs: Trough Vancomycin Labs to be done on [date and time ordered]: 01/16/22 @1930
[2022-01-14 23:34] LABS: Reflex Lactate? Y
[2022-01-14 23:35] LABS: Bedside Glucose 53 mg/dL (74-106)
[2022-01-15 00:02] LABS: Bedside Glucose 63 mg/dL (74-106)
[2022-01-15] MEDS: ALPRAZolam 0.5 MG Tablet PO ×3 (00:26→21:59)
[2022-01-15 00:30] LABS: Lactic Acid 1.2 mmol/L (0.4-1.9)
[2022-01-15 00:41] LABS: Bedside Glucose 73 mg/dL (74-106)
[2022-01-15 05:15] VITALS: BP 131/67; PULSE 71; RESP 18; TEMP 36.6; O2SAT 95
[2022-01-15 05:30] LABS: Absolute Lymphocyte Count 1.06 X10^3/uL (0.83-4.51); Absolute Neutrophil Count 6.1 X10^3/uL (2.0-7.7); Basophil# 0.02 X10^3/uL; Basophil% 0.3 % (0-1); Eosinophil# 0.11 X10^3/uL; Eosinophils% 1.4 % (0-5); Hematocrit 32.9 % (37-47); Hemoglobin 10.6 g/dL (12.0-15.0); Lymphocyte # 1.06 X10^3/ul (0.83-4.51); Lymphocyte % 13.3 % (19-41); Mean Corp Hgb Conc 32.2 g/dL (32-36); Mean Corpuscular Hgb 29.6 pg (27.0-32.0); Mean Corpuscular Volume 91.9 fL (81-99); Mean Platelet Vol. 11.1 fl (6.2-12.0); Monocyte% 7.5 % (0-10); NRBC Flagged by Analyzer 0 % (0-5); Neutrophil # 6.09 X10^3/uL (2.7-7.7); Neutrophil % 76.6 % (47-70); Platelet Count 271 K/mm3 (150-450); RBC Distribution Width CV 12.5 % (11.6-14.6); RBC Distribution Width SD 42.4 fl (35.1-43.9); Red Blood Count 3.58 M/mm3 (4.2-5.4)
[2022-01-15 05:52] LABS: Anion Gap 5 (5-15); BUN 23 mg/dL (7-18); BUN/Creat Ratio 23.3 RATIO (10-20); Calcium,Total 8.7 mg/dL (8.5-10.1); Chloride 101 mmol/L (98-107); Creatinine, Serum 0.99 mg/dL (0.55-1.02); EST Glomerular Filtration Rate 59 mL/min (>60); Est Glom Filt Rate - Afr Amer 71 mL/min (>60); Glucose 113 mg/dL (74-106); Potassium 4.4 mmol/L (3.5-5.1); Sodium Level 135 mmol/L (136-145)
[2022-01-15] MEDS: Levothyroxine 50 MCG Tablet PO (06:36)
--- NOTE | 2022-01-15 06:56 | PCM.CONS.GEN ---
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 Diagnostic data was reviewed and she is afebrile this morning with a white blood cell count 8.0. She had updated wound culture obtained yesterday and these results are pending. Previously she grew out staph epidermidis. She also has blood cultures pending. Her foot x-ray obtained from yesterday demonstrates no acute fractures dislocation, marvin dislocation of the hallux toes, so no soft tissue emphysema or foreign body. No marvin osseous destruction. It is noted she reports she had a prior heel ulcer with MRI evaluation but not of the forefoot recently. I recommend further evaluation with MRI of the forefoot to assess for additional abscess and for osteomyelitis work-up. Clinically, her heel ulcer appears stable and the PuraPly was removed that was from last week. Adaptic was applied to this site. Her left hallux has deteriorated and is worse status. This also appears infected and is likely her source of systemic illness. There is an odor. Verbal consent was obtained for debridement and nonviable eschar and seropurulent necrotic tissue was removed with medical scissor and forcep. Minimal bleeding was noted. There is exposed discolored bone also noted. This was packed with Betadine wet-to-dry. She is on broad-spectrum IV antibiotics including vancomycin and Zosyn. To continue. She would benefit from surgical removal of the necrotic infected tissue including amputation. Off-loading: The patient was instructed to avoid pressure and friction on the affected areas. I recommend offloading donut pillow or hang heel/achilles/foot over pillows while in bed resting. Heel weight-bear with surgical shoe left. Nutritional supplementation is recommended to optimize healing; Michael. Due to delayed healing and edema, I recommend non invasive vascular studies (arterial) and venous doppler with reflux evaluation, respectively for work up of venous insufficiency. The arterial daily ordered at this time and the venous Doppler for venous insufficiency work-up need to be done in outpatient setting. I recommend elevation and Marco wrap application to reduce lower extremity edema. Most of her left hallux is not appear to be clinically salvageable and we discussed treatment options including wound care versus hallux amputation. Amputation is likely going to be recommended and will get additional information from the MRI and confirmed vascular perfusion prior to proceeding likely tomorrow. The indications, benefits, and anticipated healing course of management were reviewed. This was discussed in detail. Thank you for the consultation. Please do not hesitate to call if you have any questions. Tiffany Hairston DPM, [facility] [phone] This note was generated with [employer] dictation software. It may contain incorrect words, spelling, and punctuation that were not noted in checking the note before signing. HPI Consult Data Date of Consult: 01/15/22 HPI Narrative HPI Narrative: RAGHAV GREGORY, is a 71 F who presents for an infected left foot. She was seen last week at the wound healing center for left stable heel ulcer and also for an eschar to the left hallux. She reports this started getting worse possibly this past or Thursday when she did not notice an odor or redness however started feeling sick. She had an elevated temperature and presented to the emergency room. She has difficulty seeing her foot and has difficulty feeling her foot due to her diabetic neuropathy. She denies fever, chills cardiology this morning. Her dressings on her left foot are intact. [facility] Medical History (Updated 01/15/22 @ 07:[address] Tiffany Hairston DPM) Diabetes Diabetic foot ulcer associated with type 2 diabetes mellitus Hypothyroidism Neuropathy Home Medications alprazolam 0.5 mg PO TID PRN PRN 07/16/20 [History Last Taken Unknown] clopidogrel 75 mg PO DAILY 07/16/20 [History Last Taken Unknown] ergocalciferol (vitamin D2) 1.25 unit PO QWEEK 07/16/20 [History Last Taken Unknown] furosemide 40 mg PO DAILY 07/16/20 [History Last Taken Unknown] gabapentin 600 mg PO BIDCM 07/16/20 [History Last Taken Unknown] glimepiride 4 mg PO DAILY 07/16/20 [History Last Taken Unknown] hydrocodone-acetaminophen 1 ea PO BID PRN PRN 07/16/20 [History Last Taken Unknown] insulin detemir U-100 28 unit SQ DAILY 07/16/20 [History Last Taken Unknown] levothyroxine 50 mcg PO DAILY 07/16/20 [History Last Taken Unknown] potassium chloride 20 meq PO DAILYCM #30 tab 07/19/20 [Rx Last Taken Unknown] hydrochlorothiazide 25 mg PO DAILY 10/31/21 [History Last Taken Unknown] ramipril 10 mg PO DAILY 10/31/21 [History Last Taken Unknown] semaglutide [Ozempic] 0.25 mg SUBCUT QWEEK 10/31/21 [History Last Taken Unknown] Allergy/AdvReac Type Severity Reaction Status Date / Time No Known Allergies Allergy Verified 01/14/22 17:42 Surgical History (Updated 01/14/22 @ 23:05 by Janice Wills) History of appendectomy History of cholecystectomy Social History Smoking Status: Never smoker Physical Exam Const alert, oriented x3, no apparent distress, healthy appearing and well nourished HEENT normocephalic Extremity normal to inspection and full ROM Extremity Narrative: She has dorsal contraction of all digits of the left foot with prominent metatarsal head Compartments are soft to palpate There is bogginess and fluctuance noted to the distal hallux General Extremity: normal exam except as noted Skin Skin Narrative: Wound present to left hallux now with odor and moist eschar with seropurulent localized drainage of less than 2 cc on expression. There is increased warmth and adjacent erythema. There is also increased edema to the foot and lower extremity. There is positive probe to bone with direct visualization of soft sullivan bone Ulcer with granular tissue also noted to posterior heel / left Achilles with adherent slough, no purulence or erythema or warmth noted at this time. Chronic venous changes present bilateral lower extremities and dorsal pedis pulses 2+ Lack of epicritic sensation light touch is consistent with her neuropathic status Neuro oriented x3 and moves all extremities Sensorium / Orientation: awake, alert, oriented to person, oriented to place and oriented to time Lab / Micro Data Result Diagrams: 01/15/22 04:45 01/15/22 04:45 Labs: Laboratory Results - last 24 hr 01/14/22 19:20: WBC 11.0, RBC 3.73 L, Hgb 11.2 L, Hct 34.1 L, MCV 91.4, MCH 30.0, MCHC 32.8, RDW Std Deviation 41.9, RDW Coeff of Pedro 12.5, Plt Count 318, MPV 10.8, Immature Gran % (Auto) 1.500 H, Neut % (Auto) 75.0 H, Lymph % (Auto) 14.1 L, [place] % (Auto) 8.3, Eos % (Auto) 0.8, Baso % (Auto) 0.3, Absolute Neuts (auto) 8.3 H, Absolute Lymphs (auto) 1.55, Nucleated RBC % 0 01/14/22 19:20: PT 15.0 H, INR 1.2, APTT 35.5 01/14/22 19:20: Sodium 136, Potassium 3.8, Chloride 99, Carbon Dioxide 29.0, Anion Gap 8, BUN 20 H, Creatinine 1.17 H, Estim Creat Clear Calc 38.53, Est GFR (MDRD) Af Amer 58 L, Est GFR (MDRD) Non-Af 48 L, BUN/Creatinine Ratio 17.1, Glucose 49 L, Calcium 8.9, Total Bilirubin 0.20, AST 31, ALT 23, Alkaline Phosphatase 52, Total Protein 6.9, Albumin 2.5 L, Globulin 4.4 H, Albumin/Globulin Ratio 0.6 L 01/14/22 19:20: Lactic Acid 2.8 H* 01/14/22 23:29: POC Glucose 53 L 01/14/22 23:53: Lactic Acid 1.2 01/14/22 23:56: POC Glucose 63 L 01/15/22 00:25: POC Glucose 73 L 01/15/22 04:45: WBC 8.0, RBC 3.58 L, Hgb 10.6 L, Hct 32.9 L, MCV 91.9, MCH 29.6, MCHC 32.2, RDW Std Deviation 42.4, RDW Coeff of Pedro 12.5, Plt Count 271, MPV 11.1, Immature Gran % (Auto) 0.900, Neut % (Auto) 76.6 H, Lymph % (Auto) 13.3 L, [place] % (Auto) 7.5, Eos % (Auto) 1.4, Baso % (Auto) 0.3, Absolute Neuts (auto) 6.1, Absolute Lymphs (auto) 1.06, Nucleated RBC % 0 01/15/22 04:45: Sodium 135 L, Potassium 4.4, Chloride 101, Carbon Dioxide 29.0, Anion Gap 5, BUN 23 H, Creatinine 0.99, Estim Creat Clear Calc 43.70, Est GFR (MDRD) Af Amer 71, Est GFR (MDRD) Non-Af 59 L, BUN/Creatinine Ratio 23.3 H, Glucose 113 H, Calcium 8.7
--- NOTE | 2022-01-15 07:21 | WOUNDNOTE ---
wound photo: left great toe
--- NOTE | 2022-01-15 07:21 | WOUNDNOTE ---
wound photo: left heel
[2022-01-15 07:40] LABS: Bedside Glucose 137 mg/dL (74-106)
--- NOTE | 2022-01-15 07:54 | ART_ITS ---
Reason For Study: Ulcer Procedure A bilateral lower extremity continuous wave Doppler with analog waveform analysis,segmental pressures,and ankle brachial indexes without exercise. Left Segmental Pressures Left thigh = 199mmHg. Left calf = 138mmHg. Left posterior tibial artery = 107mmHg. Left dorsalis pedis artery = 134mmHg. Right Segmental Pressures Right brachial= 134mmHg. Right thigh = 180mmHg. Right calf = 153mmHg. Right posterior tibial artery = 114mmHg. Right dorsalis pedis artery = 134mmHg. Right digit = 46 mmHg. Indices The right ankle brachial index by the posterior tibial artery is 0.85. The right ankle brachial index by the dorsalis pedis is 1.00. The right digital-brachial index is 0.34. The left ankle brachial index by the posterior tibial artery is 0.80. The left ankle brachial index by the dorsalis pedis is 1.00. VL/Lower Ext Art Exam w/o Exercis Interpretation Summary Biphasic and triphasic Doppler waveforms are noted at ankle level on the right. Biphasic Doppler waveforms are noted at ankle level on the left. Pulse-volume recordings appear diminished at digital level on the right, but could not be determined at digital level on the left du e to the presence of an ulceration. Resting ankle-brachial indices are normal bilaterally. The right digital-brachial index is moderately to severely diminished. The left digital-brachial index was not determined due to the presence of an ulceration. Arterial flow appears normal at ankle level bilaterally. There is evidence of m [id number] arterial occlusive disease at digital level on the right. Arterial flow at digi shanon level on the left was not evaluated due to the presence of an ulceration. Ordering Physician: Tiffany Hairston Referring Physician: Marion Roland Performed By: Nidia Andino RDCS/RVT
--- NOTE | 2022-01-15 07:59 | MRI_ITS ---
STUDY: MRI LEFT FOREFOOT WITHOUT CONTRAST REASON FOR EXAM: Redness and swelling of the left foot with open wound of the distal great toe, evaluate for abscess, osteomyelitis. TECHNIQUE: Standardized fat and water weighted pulse sequences were obtained in all 3 orthogonal planes. COMPARISON: Radiographs 01/13/2022. FINDINGS: Although there is considerable image degradation secondary to patient motion, there still some diagnostically useful information available from this examination. There is lateral subluxation of the metatarsophalangeal joint of the hallux with hallux valgus deformity. There is arthrosis of the sesamoids-first metatarsal articulations (T1 short axis images 21, 22). There is no demonstrated effusion of the interphalangeal joint of the hallux. There is bone edema of the proximal and distal phalanges of the great toe (inversion recovery long axis image 14; inversion recovery sagittal images 16-21), worrisome for osteomyelitis. Normal second through fifth metatarsophalangeal (MTP) joints. There is absence of the head of the second proximal phalanx (T2 long axis image 11) and absence of the distal aspect of the fourth proximal phalanx (T2 long axis image 16). There is no demonstrated bone edema of the metatarsals. There is atrophy with fat replacement of the intrinsic muscles of the forefoot (T1 sagittal images 10-26) suggestive of peripheral neuropathy. There is edema in the subcutis adipose space without focal fluid collection to indicate abscess. MRI/Lower Ext/No Jt/w/o IMPRESSION: Bone edema of the proximal and distal phalanges of the great toe, worrisome for osteomyelitis. Edema in the subcutis adipose space without demonstrated focal fluid collection to indicate abscess. Lateral subluxation of the first metatarsophalangeal joint with hallux valgus deformity, and arthrosis of the sesamoids-first metatarsal articulations. Atrophy of the intrinsic muscles of the forefoot suggestive of peripheral neuropathy. Electronically Signed: Chu Roland MD at 11:01 EDT ,
[2022-01-15] MEDS: Juven (unflavored) Packet 1 PACKET PO ×2 (08:20→17:29)
[2022-01-15] MEDS: Gabapentin 600 MG Tablet PO ×2 (08:20→17:29)
[2022-01-15] MEDS: Potassium Chloride Oral Tablet 20 MEQ PO (08:20)
[2022-01-15 08:45] VITALS: BP 159/72; PULSE 78; RESP 18; TEMP 36.8; O2SAT 95
[2022-01-15 11:15] VITALS: BP 160/78; PULSE 94; RESP 18; TEMP 36.5; O2SAT 98
[2022-01-15] MEDS: 0.9% Saline Lock 10 ML Syringe IV (11:16)
[2022-01-15] MEDS: Ondansetron 4 MG/2 ML Vial IV (11:16)
[2022-01-15] MEDS: Nystatin Powder 15gm Bottle 1 APPLIC TOPICAL ×2 (11:17→22:01)
[2022-01-15] MEDS: Menthol/Lanolin/Calamine/Znox 113 GM Tube 1 APPLIC TOPICAL ×2 (11:17→22:00)
[2022-01-15] MEDS: Heparin Injection (Vial) 5,000 UNIT/ML VIAL 5000 UNIT SC ×2 (11:18→23:00)
[2022-01-15] MEDS: Clopidogrel Bisulfate 75 MG Tablet PO (11:18)
[2022-01-15] MEDS: hydroCHLOROthiazide 25 MG Tablet PO (11:18)
[2022-01-15] MEDS: Furosemide 40 MG Tablet PO (11:18)
[2022-01-15] MEDS: Ramipril 10 MG Capsule PO (11:18)
--- NOTE | 2022-01-15 11:25 | CASEMGMT ---
JUNI NEAL Face to Face with patient for initial transition planning/care coordination assessment. RN CM introduced self and role at [facility]. Patient sitting in chair, alert and oriented. Patient willing to participate in assessment and is able to answer all questions appropriately. Care providers, pharmacy, and demographics verified. Patient wishes to discharge home. Will monitor for possible HHC and IV ATBs at discharge. Patient states she has no further needs or concerns at this time. CM to follow for discharge planning needs that may arise. PCP: Luan Specialists: Natalia research managerifli Rueda Pharmacy: [facility] Insurance: [facility] Prescription Benefit: yes Living Will/HPOA: none LNOK: , son Living Arrangements: Patient lives with and son in a single story home with 1 step and grab bar to enter the home. Patient states she is independent at home. Transportation: son DME/HHC: Patient states she has shower chair, raised toilet , grab bars, walker, wheelchair at home. No previous HHC or SNF. Son has been assisting patient with wound care and patient follows at [facility] wound center. Disposition Plan: Patient to discharge home with family support and follow-up plans in place. Monitor for HHC and IV ATBs at discharge. Sara FORD, RN, CM
--- NOTE | 2022-01-15 11:32 | PN.HOSP_ITS ---
Subjective Subjective Patient seen and examined. She was admitted for an infected left great toe. She also had associated fever and chills. She has no active complaints today. Pain is well controlled. Patient does look uncomfortable though she cannot pinpoint exactly what makes her feel uncomfortable. Fever and chills are improved and she denies any shortness of breath, nausea vomiting or diarrhea. Review of systems otherwise negative. Objective Data Objective Data Vital Signs: Vital Signs Temp Pulse Resp BP Pulse Ox 97.7 F L 94 18 160/78 H 98 01/15/22 11:15 01/15/22 11:15 01/15/22 11:15 01/15/22 11:15 01/15/22 11:15 Oxygen Delivery Method Room Air Weight: 197 lb 12.074 oz Body Mass Index (BMI) 32.9 Intake & Output: Intake and Output for Last 24 Hours 01/13/22 01/14/22 01/15/22 23:59 23:59 23:59 Intake Total 375 / 375 Balance 375 / 375 Lab / Micro Data Result Diagrams: 01/15/22 04:45 01/15/22 04:45 Labs: Laboratory Results - last 24 hr 01/14/22 19:20: WBC 11.0, RBC 3.73 L, Hgb 11.2 L, Hct 34.1 L, MCV 91.4, MCH 30.0, MCHC 32.8, RDW Std Deviation 41.9, RDW Coeff of Pedro 12.5, Plt Count 318, MPV 10.8, Immature Gran % (Auto) 1.500 H, Neut % (Auto) 75.0 H, Lymph % (Auto) 14.1 L, Lamb % (Auto) 8.3, Eos % (Auto) 0.8, Baso % (Auto) 0.3, Absolute Neuts (auto) 8.3 H, Absolute Lymphs (auto) 1.55, Nucleated RBC % 0 01/14/22 19:20: PT 15.0 H, INR 1.2, APTT 35.5 01/14/22 19:20: Sodium 136, Potassium 3.8, Chloride 99, Carbon Dioxide 29.0, Anion Gap 8, BUN 20 H, Creatinine 1.17 H, Estim Creat Clear Calc 38.53, Est GFR (MDRD) Af Amer 58 L, Est GFR (MDRD) Non-Af 48 L, BUN/Creatinine Ratio 17.1, Glu cose 49 L, Calcium 8.9, Total Bilirubin 0.20, AST 31, ALT 23, Alkaline Phosphatase 52, Total Protein 6.9, Albumin 2.5 L, Globulin 4.4 H, Albumin/Globulin Ratio 0.6 L 01/14/22 19:20: Lactic Acid 2.8 H* 01/14/22 23:29: POC Glucose 53 L 01/14/22 23:53: Lactic Acid 1.2 01/14/22 23:56: POC Glucose 63 L 01/15/22 00:25: POC Glucose 73 L 01/15/22 04:45: WBC 8.0, RBC 3.58 L, Hgb 10.6 L, Hct 32.9 L, MCV 91.9, MCH 29.6, MCHC 32.2, RDW Std Deviation 42.4, RDW Coeff of Pedro 12.5, Plt Count 271, MPV 11.1, Immature Gran % (Auto) 0.900, Neut % (Auto) 76.6 H, Lymph % (Auto) 13.3 L, Lamb % (Auto) 7.5, Eos % (Auto) 1.4, Baso % (Auto) 0.3, Absolute Neuts (auto) 6.1, Absolute Lymphs (auto) 1.06, Nucleated RBC % 0 01/15/22 04:45: Sodium 135 L, Potassium 4.4, Chloride 101, Carbon Dioxide 29.0, Anion Gap 5, BUN 23 H, Creatinine 0.99, Estim Creat Clear Calc 43.70, Est GFR (MDRD) Af Amer 71, Est GFR (MDRD) Non-Af 59 L, BUN/Creatinine Ratio 23.3 H, Glucose 113 H, Calcium 8.7 01/15/22 07:31: POC Glucose 137 H Micro: Microbiology 01/14/22 19:25 Wound - Toe Gram Stain - Final 01/14/22 19:25 Wound - Toe Wound Culture - Preliminary Staphylococcus species Gram positive organism Radiography Diagnostic Testing: Radiology Impression Lower Extremity MRI 01/15/22 07:59 IMPRESSION: Bone edema of the proximal and distal phalanges of the great toe, worrisome for osteomyelitis. Edema in the subcutis adipose space without demonstrated focal fluid collection to indicate abscess. Lateral subluxation of the first metatarsophalangeal joint with hallux valgus deformity, and arthrosis of the sesamoids-first metatarsal articulations. Atrophy of the intrinsic muscles of the forefoot suggestive of peripheral neuropathy. Electronically Signed: Chu Roland MD at 11:01 EDT , Physical Exam Const alert and no apparent distress Exam Limitations: no limitations HEENT head/scalp atraumatic and moist oral mucous membranes Head and Scalp: normocephalic Eyes PERRL, EOMs intact bilaterally and conjunctivae normal Neck no lymphadenopathy, supple and no JVD Resp normal respiratory effort, no retractions, no use of accessory muscles and clear to auscultation bilaterally Cardio regular rate, regular rhythm, S1 normal heart sound, S2 normal heart sound and no murmurs GI normal to inspection, nondistended, normoactive bowel sounds, soft to palpation, non-tender and non-distended Extremity Extremity Narrative: left foot wrapped in a bandage Peripheral Pulses: Yes pulses 2+ throughout Skin Skin Narrative: LLE wrapped in bandage Neuro oriented x3, CN's II-XII intact bilaterally and moves all extremities Sensorium / Orientation: awake and alert Psych affect normal Assessment & Plan Assessment/Plan (1) 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: (2) Osteomyelitis: PLAN: #Left great toe diabetic foot infection * on IV vancomycin and zosyn * ID and podiatry consulted * MRI of the left foot showed bone edema of hte proximal and distal phalanges of the great toe, worrisome for osteomyelitis, with edema of the subcutis adipose spac without demonstrated focal fluid collection to indicate abscess. * she had bedside debridement done yesterday by podiatry. * podiatry recommends noninvasive arterial and venous doppler studies. #Type 2 diabetes mellitus with peripheral neuropathy * amaryl on hold. ISS. * Accuchecks ACHS. * on gabapentin. * on lantus 28 units daily. * #Peripheral vascular disease * arterial and venous doppler studies * on plavix and statin * #Hypothyroidism: on synthroid #Hypertension: on HCTZ and ramipril. #Anxiety: on xanax #lactic acidosis: resolved. lactic acid is down to 1.2. DVT prophylaxis: heparin Charges/Coding Visit Charges Inpatient E&M: 42371 Subs Hosp L2
[2022-01-15] MEDS: Insulin Glargine-YFGN 100 UNIT/ML Pen 28 UNIT SC (12:03)
[2022-01-15 12:11] LABS: Bedside Glucose 320 mg/dL (74-106)
[2022-01-15] MEDS: Insulin Lispro 100 UNIT/ML INSULN.PEN SC ×3 (12:59→23:00)
[2022-01-15 14:44] VITALS: BP 129/59; PULSE 85; RESP 16; TEMP 36.8; O2SAT 98
[2022-01-15] MEDS: Glucerna Shake 120 ML LIQUID PO (14:50)
[2022-01-15 17:11] LABS: Bedside Glucose 391 mg/dL (74-106)
[2022-01-15 18:48] VITALS: BP 128/48; PULSE 79; RESP 18; TEMP 37.2; O2SAT 99
[2022-01-15] MEDS: Temazepam 15 MG Capsule PO (21:59)
[2022-01-15] MEDS: Docusate Sodium 100 MG Capsule PO (22:00)
[2022-01-15 23:10] LABS: Bedside Glucose 263 mg/dL (74-106)
[2022-01-16] VITALS (11 sets, daily range): BP systolic 132–184; BP diastolic 59–107; PULSE 70–79; RESP 16–18; TEMP 36.8–37.3; O2SAT 95–99; BMI 32.9
[2022-01-16 05:30] LABS: Absolute Lymphocyte Count 1.23 X10^3/uL (0.83-4.51); Absolute Neutrophil Count 6.9 X10^3/uL (2.0-7.7); Basophil# 0.03 X10^3/uL; Basophil% 0.3 % (0-1); Eosinophils% 1.1 % (0-5); Hematocrit 31.7 % (37-47); Hemoglobin 10.4 g/dL (12.0-15.0); Lymphocyte # 1.23 X10^3/ul (0.83-4.51); Lymphocyte % 13.5 % (19-41); Mean Corp Hgb Conc 32.8 g/dL (32-36); Mean Corpuscular Hgb 29.4 pg (27.0-32.0); Mean Corpuscular Volume 89.5 fL (81-99); Mean Platelet Vol. 10.7 fl (6.2-12.0); Monocyte# 0.73 X10^3/uL; NRBC Flagged by Analyzer 0 % (0-5); Neutrophil # 6.87 X10^3/uL (2.7-7.7); Neutrophil % 75.7 % (47-70); Platelet Count 320 K/mm3 (150-450); RBC Distribution Width CV 12.5 % (11.6-14.6); RBC Distribution Width SD 41.4 fl (35.1-43.9); Red Blood Count 3.54 M/mm3 (4.2-5.4); White Blood Count 9.1 K/mm3 (4.4-11.0)
[2022-01-16] MEDS: Levothyroxine 50 MCG Tablet PO (05:48)
[2022-01-16 06:06] LABS: Bedside Glucose 123 mg/dL (74-106)
[2022-01-16 06:10] LABS: Anion Gap 5 (5-15); BUN 29 mg/dL (7-18); BUN/Creat Ratio 30.3 RATIO (10-20); Calcium,Total 8.9 mg/dL (8.5-10.1); Chloride 100 mmol/L (98-107); Creatinine, Serum 0.96 mg/dL (0.55-1.02); EST Glomerular Filtration Rate 61 mL/min (>60); Est Glom Filt Rate - Afr Amer 73 mL/min (>60); Estimated Creatinine Clearance 45.07 ml/min; Glucose 140 mg/dL (74-106); Sodium Level 134 mmol/L (136-145)
--- NOTE | 2022-01-16 08:20 | WOUNDNOTE ---
Plan is for patient to go to surgery today. will leave dressing in place for now.
--- NOTE | 2022-01-16 10:49 | PN.HOSP_ITS ---
Subjective Subjective Patient seen and examined. He has no active complaints and had an uneventful night. Pain is well controlled. Review of systems is otherwise negative. She is for surgery today. Objective Data Objective Data Vital Signs: Vital Signs Temp Pulse Resp BP Pulse Ox 98.2 F 72 18 152/73 H 98 01/16/22 09:30 01/16/22 09:30 01/16/22 09:30 01/16/22 09:30 01/16/22 09:30 Oxygen Delivery Method Room Air Weight: 197 lb 12.074 oz Body Mass Index (BMI) 32.9 Intake & Output: Intake and Output for Last 24 Hours 01/14/22 01/15/22 01/16/22 23:59 23:59 23:59 Intake Total 375 / 375 1465 / 1465 50 / 50 Output Total 1100 / 1100 Balance 375 / 375 365 / 365 50 / 50 Lab / Micro Data Result Diagrams: 01/16/22 04:50 01/16/22 04:50 Labs: Laboratory Results - last 24 hr 01/15/22 12:01: POC Glucose 320 H 01/15/22 17:03: POC Glucose 391 H 01/15/22 22:58: POC Glucose 263 H 01/16/22 04:50: WBC 9.1, RBC 3.54 L, Hgb 10.4 L, Hct 31.7 L, MCV 89.5, MCH 29.4, MCHC 32.8, RDW Std Deviation 41.4, RDW Coeff of Pedro 12.5, Plt Count 320, MPV 10.7, Immature Gran % (Auto) 1.400 H, Neut % (Auto) 75.7 H, Lymph % (Auto) 13.5 L, [place] % (Auto) 8.0, Eos % (Auto) 1.1, Baso % (Auto) 0.3, Absolute Neuts (auto) 6.9, Absolute Lymphs (auto) 1.23, Nucleated RBC % 0 01/16/22 04:50: Sodium 134 L, Potassium 4.0, Chloride 100, Carbon Dioxide 29.0, Anion Gap 5, BUN 29 H, Creatinine 0.96, Estim Creat Clear Calc 45.07, Est GFR (MDRD) Af Amer 73, Est GFR (MDRD) Non-Af 61, BUN/Creatinine Ratio 30.3 H, Glucose 140 H, Calcium 8.9 01/16/22 05:54: POC Glucose 123 H Micro: Microbiology 01/14/22 19:25 Wound - Toe Gram Stain - Final 01/14/22 19:25 Wound - Toe Wound Culture - Preliminary Staphylococcus aureus Gram positive sarah Radiography Diagnostic Testing: Radiology Impression Lower Extremity MRI 01/15/22 07:59 IMPRESSION: Bone edema of the proximal and distal phalanges of the great toe, worrisome for osteomyelitis. Edema in the subcutis adipose space without demonstrated focal fluid collection to indicate abscess. Lateral subluxation of the first metatarsophalangeal joint with hallux valgus deformity, and arthrosis of the sesamoids-first metatarsal articulations. Atrophy of the intrinsic muscles of the forefoot suggestive of peripheral neuropathy. Electronically Signed: Chu Roland MD at 11:01 EDT , Physical Exam Const alert, oriented x3, no apparent distress, average body habitus and healthy appearing General Appearance: cooperative, well kempt and well developed Orientation / Consciousness: awake, oriented to person, oriented to place and oriented to time Exam Limitations: no limitations HEENT normocephalic, head/scalp atraumatic, hearing grossly normal bilaterally and moist oral mucous membranes Head and Scalp: normocephalic Eyes PERRL, EOMs intact bilaterally and conjunctivae normal Neck nuchal rigidity, no lymphadenopathy, supple, no JVD, thyroid normal and no noel tid bruits General: trachea midline Resp normal respiratory effort, no retractions, no use of accessory muscles and clear to auscultation bilaterally Auscultation: Negative for rales, rhonchi or wheezes Cardio regular rate, regular rhythm, S1 normal heart sound, S2 normal heart sound, no murmurs, no rub and no gallops GI normal to inspection, nondistended, normoactive bowel sounds, soft to palpation, non-tender and non-distended Extremity Extremity Narrative: left foot wrapped in a bandage Peripheral Pulses: Yes pulses 2+ throughout Skin Skin Narrative: LLE wrapped in bandage General Skin Exam: no breakdown Neuro oriented x3, CN's II-XII intact bilaterally, moves all extremities and no sensory deficits noted Sensorium / Orientation: awake and alert Speech: speech normal Psych affect normal Assessment & Plan Assessment/Plan (1) 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: (2) Osteomyelitis: PLAN: #Left great toe diabetic foot infection * on IV vancomycin and zosyn * ID and podiatry on board * MRI of the left foot showed bone edema of hte proximal and distal phalanges of the great toe, worrisome for osteomyelitis, with edema of the subcutis adipose spac without demonstrated focal fluid collection to indicate abscess. * she had bedside debridement done yesterday by podiatry. * had arterial studies done yesterday * for surgery today. * #Type 2 diabetes mellitus with peripheral neuropathy * amaryl on hold. ISS. * Accuchecks ACHS. * on gabapentin. * on lantus 28 units daily. * #Peripheral vascular disease * on plavix and statin * #Hypothyroidism: on synthroid #Hypertension: on HCTZ and ramipril. #Anxiety: on xanax #lactic acidosis: resolved. DVT prophylaxis: heparin Charges/Coding Visit Charges Inpatient E&M: 83287 Subs Hosp L2
--- NOTE | 2022-01-16 10:55 | EKG12_ITS ---
Test Reason : PREOP Blood Pressure : / mmHG Vent. Rate : 070 BPM Atrial Rate : 070 BPM P-R Int : 156 ms QRS Dur : 078 ms QT Int : 426 ms P-R-T Axes : 049 -02 026 degrees QTc Int : 460 ms Normal sinus rhythm Normal ECG When compared with ECG of 16-JUL-2020 15:15, Previous ECG has undetermined rhythm, needs review ST no longer depressed in Inferior leads Nonspecific T wave abnormality, improved in Inferior leads Nonspecific T wave abnormality no longer evident in Anterolateral leads QT has lengthened Confirmed by MANDY KEY, CATARINO ([id number]), editorial director MUSA NICOLE ([id number]) on 01/20/2022 12:58:58 PM Referred By: CHHAYA Confirmed By:CATARINO GALVAN MD
--- NOTE | 2022-01-16 13:30 | RAD_ITS ---
INDICATION: PAIN EXAMINATION/TECHNIQUE: X-RAY - LEFT FOOT XR Toes Min 2 Views 3 VIEWS COMPARISON: Left foot series 01/13/2022 FINDINGS: 3 fluoroscopic spot films obtained of the left forefoot using 4 seconds total fluoroscopic time. Interval resection of the first digit. Stable deformity of the fourth digit. No gross acute bony abnormalities identified. RAD/Toe(s) Min 2 Views IMPRESSION: Status post resection first digit. Electronically Signed: Christo Oneil MD at 17:22 EDT ,
--- NOTE | 2022-01-16 13:30 | AMP_PTH ---
PATIENT: RAGHAV GREGORY LOC: MS3 U#:[id number] AGE/SX: 71/F [place] [facility] [place]14/[address]: Dr. Paula Naranjo MD : 1950 BED: 1 DIS: 01/18/2022 SPEC #: [id number] RECD: 01/16/22 15:01 STATUS: MATT LU #: [id number] JAZZMINE: 01/16/22 13:[address]: Tiffany Hairston DEPT: SURGICAL PATHOLOGY RECD BY: Regino Reina ENTERED: 01/17/22 07:58 SP TYPE: Amputation OTHR DR: DO Dr. Milad Madison, DO Dr. Paula Naranjo MD Tissues: A - Toe, NOS B - Bone of foot, NOS Procedures: Decalcification bone/plaque Surgery Specimen Level III Surgery Specimen Level IV HEADER OPERATION: Amputation toe, hallux PRE-OP DIAGNOSIS: Hallux gangrene and osteomyelitis TISSUE SUBMITTED: A ? Left hallux toe, B ? Clearance fragment left hallux toe MICROSCOPIC DIAGNOSIS A. Left hallux toe, amputation: Focal ulceration and acute inflammation. Underlying bone with acute osteomyelitis. B. Clearance fragment left hallux toe: A piece of bone, negative for acute osteomyelitis. SJ:angie 01/22/2022 MICROSCOPIC DESCRIPTION Slides are reviewed. GROSS DESCRIPTION A - Received in fixative is one container labeled with the patient's name and designated left hallux toe. The specimen consists of two irregular fragments. One fragment consists of skin and intact soft tissue containing an ulcer measuring 3 x 2.2 x 1 cm. The other fragment consists of an elongated fragment of bone measuring 3.5 cm in length and with a diameter of 2 cm. Industrial Illuminating Engineer sections are submitted in two cassettes as follows: 1 ? soft tissue with ulcer, 2 ? bone after decalcification. B - Received in fixative is one container labeled with the patient's name and designated clearance fragment bone. The specimen consists of an irregular fragment of holloway bone measuring 1.3 x 0.5 x 0.3 cm. The specimen is totally submitted in one cassette after decalcification. / AM:angie 01/17/2022 TC:2 CPT: 27835, 90918, 88607 x2
[2022-01-16] MEDS: Bupivacaine Mpf 0.5% 30 ML VIAL (14:20)
[2022-01-16] MEDS: Lidocaine 1% (50 ml mdv) 50 ML Vial (14:20)
--- NOTE | 2022-01-16 14:24 | PCM.OPRPT ---
Problems Associated Problem List Diagnoses (1) 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: (2) Osteomyelitis: (3) Type 2 diabetes mellitus with diabetic polyneuropathy: (4) Gangrene of toe of left foot: Report of Operation Date of Procedure: 01/16/22 Pre-Operative Diagnosis: gangrene and osteomyelitis left hallux Post-Operative Diagnosis: gangrene and osteomyelitis left hallux Surgery/Procedure Performed:: left hallux amputation Description of Surgical Findings:: hemostasis: well padded pneumatic mid calf tourniquet, 250 mmHg, 8 min materials: 2-0 vicryl, 2-0 nylon Specimen sent to Complications: None The patient tolerated the procedure and anesthesia well. The patient was transported to the PACU with vital signs stable and vascular status intact to the surgical limb. To ice and elevate for pain and inflammation management. Postoperative x-rays were reviewed prior to leaving the operating room. Hallux amputation noted without acute injuries, foreign body, or soft tissue emphysema. Postoperative orders were entered electronically. Surgeon: Tiffany Hairston associate dean of students: None Type of Anesthesia: Local (Preop: 1:1 mix 1% lidocaine plain and 0.5% Marcaine plain administered in typical left foot first ray block fashion, 10 cc) and MAC Specimen's removed: 1. Left hallux soft tissue and bone sent to microbiology (aerobic, anaerobic, acid-fast, fungal) 2. Left hallux soft tissue and bone sent to pathology 3. Left hallux clearance fragment bone sent to microbiology (aerobic, anaerobic, acid-fast, fungal) 4. Left hallux clearance fragment bone sent to pathology Drains: None Estimated Blood Loss (mL): <30 mL Description of Procedure: Indications: This 71-year-old female with significant past medical history of hypertension, hypothyroidism, debility, type 2 diabetes with polyneuropathy, and chronic limb swelling has been dealing with a chronic right posterior heel ulcer and recently hallux ulcer with anteriorization. She was seen for several months and the wound healing center and had a recent progression including gangrenous changes and infection in which she was admitted for systemic illness. She has normal ABIs and noncalcified vessels noted upon lower extremity arterial study. Her wound culture demonstrated staph and gram-positive rods. Blood cultures are negative so far. She had mild leukocytosis upon admission at 11.0. X-rays were negative for soft tissue emphysema or gross osseous destruction. MRI demonstrated increased intensity in the distal and proximal phalanges consistent with early osteomyelitis. Clinically she had gangrenous devitalized nonsalvageable distal half of her hallux with discolored soft sullivan bone and significant bunion deformity noted with lateral hallux deviation. There is also a pronounced odor with some serous purulent drainage on expression. Preoperative H&P were reviewed including his diagnostic data. There is no gross abnormalities noted with labs. Preoperative indications, planned procedure, benefits, risk, anticipated healing time and management were reviewed. The patient understands and elects proceed with surgery at this time. No guarantees were made. The patient understands risk and complications include but are not limited to following: pain, swelling, scarring, need for further surgery, tendon contracture, transfer lesion, arthritis, need for further surgery, delayed or nonhealing, infection, blood clot, allergic reaction, loss of limb, function, or life. The informed surgical limb and consent were signed. I answered all the patient's questions. Her family was also bedside and answered all their questions. The patient also understands there is an inherent risk with being in the hospital and undergoing a procedure during the time of COVID-19 pandemic. The patient understands precautions are being taken to prevent transmission. This patient understands the benefits and risks of having a procedure at this time versus waiting in which the benefits are reasonable at this time. Procedure in detail: The patient was brought into the operating room, and was place on the operating room table in the supine position. She was carefully secured to the operating room table with a safely belt around his waist. A time out was performed, the patient was properly identified and the surgical plan was confirmed. Patient was already on IV antibiotics; vancomycin and Zosyn. A well padded pneumatic tourniquet was placed around the left mid calf. The patient received MAC anesthesia per the anesthesia team, and I administered local anesthetic. The left lower extremity was scrubbed, prepped and draped in the usual aseptic fashion. The left lower extremity was gravity exsanguinated for 3 minutes, and the left mid calf pneumatic tourniquet was inflated to 250mmHg. There was noted to be nonsalvageable left hallux with gangrenous changes and exposed soft and sullivan distal phalanx with purulence and odor. A fishmouth incision was made over the first metatarsophalangeal joint directly down to bone and the gangrenous aspect of the hallux was removed in total from the table. This was sent to microbiology and pathology. Copious amounts of saline was used to irrigate. Next, clean gloves and instrumentation were used at this point and the proximal phalanx of the hallux was disarticulated from the metatarsal phalangeal joint and it was noted that there was no purulence or devitalized tissue at this level. The proximal most aspect of the proximal phalanx of the hallux was sent as a clearance fragment to microbiology and pathology. The site was flushed out with copious amounts of normal saline solution. All remaining tissues appeared to be healthy and viable, free of any infection. Adjacent devitalized soft tissue and tendons were debrided and excised with 15 blade scalpel and forcep. The site was again flushed out with copious amounts of normal saline solution. A flap was created with the remaining viable skin. The tourniquet was deflated after 8 minutes. Brisk capillary refill time was noted to all aspects of the amputation site and remaining toes of the left lower extremity. Minimal electrocauterization and direct pressure was used to maintain hemostasis. No pulsatile bleeding was noted. Again the odor was resolved and there was no remaining devitalized or necrotic tissue. The articular surface of the first metatarsal head appeared healthy and intact. This surgical site wound was reapproximated with 2-0 Vicryl and the skin was reapproximated with 2-0 nylon utilizing horizontal and simple suture techniques. No touch technique was used to perform this closure in a non-tensile manner. A dressing was applied which consisted of betadine soaked adaptic, 4x4 gauze, kerlix, ABD pad, and omar dressing. Care was taken also to cover her small granular base ulcer at the posterior heel which did not demonstrate any signs of infection either. After procedure: The patient tolerated the procedure and anesthesia well. The patient was transported to the PACU with vital signs stable and vascular status intact to the surgical limb. To ice and elevate for pain and inflammation management. Postoperative x-rays were reviewed prior to leaving the operating room as noted. Postoperative orders were entered electronically. She will be transferred back to the medical surgical floor upon continued stability and will continue on IV antibiotics. She will be advised to maintain a nonweightbearing status and only place weight on the heel in a surgical shoe to allow adequate healing. Nutritional supplementation will be ordered to optimize healing. She will also work with physical and occupational therapy prior to potential discharge home. Tiffany Hairston DPM, [facility] Foot [facility] Ankle [place] Grafts/Implants Used: none Complications none Admit VTE Documentation VTE Present on Admission: No VTE Mechan Device Prophylaxis: SCD's VTE Pharm Prophylaxis ordered?: Yes
[2022-01-16] MEDS: Insulin Lispro 100 UNIT/ML INSULN.PEN SC ×2 (15:51→21:44)
[2022-01-16] MEDS: Juven (unflavored) Packet 1 PACKET PO (15:54)
[2022-01-16] MEDS: hydroCHLOROthiazide 25 MG Tablet PO (15:57)
[2022-01-16] MEDS: Ramipril 10 MG Capsule PO (15:58)
[2022-01-16 16:05] LABS: Bedside Glucose 242 mg/dL (74-106)
[2022-01-16] MEDS: Glucerna Shake 120 ML LIQUID PO ×2 (16:48→21:38)
[2022-01-16] MEDS: Gabapentin 600 MG Tablet PO (16:48)
[2022-01-16 20:14] LABS: Vancomycin, Trough Level 8.1 ug/mL (5.0-15.0)
--- NOTE | 2022-01-16 20:47 | PCM.RX.CS ---
Consult Pharmacy has been consulted to manage selected antiobiotic: Vancomycin Type of Consult: Follow-up Suspected Infection: Skin/Soft tissue Labs: Sodium 134 mmol/L (136-145) L 01/16/22 04:50 Potassium 4.0 mmol/L (3.5-5.1) 01/16/22 04:50 Chloride 100 mmol/L (98-107) 01/16/22 04:50 Carbon Dioxide 29.0 mmol/L (21.0-32.0) 01/16/22 04:50 Anion Gap 5 (5-15) 01/16/22 04:50 BUN 29 mg/dL (7-18) H 01/16/22 04:50 Creatinine 0.96 mg/dL (0.55-1.02) 01/16/22 04:50 Est GFR (MDRD) Af Amer 73 mL/min (>60) 01/16/22 04:50 Est GFR (MDRD) Non-Af 61 mL/min (>60) 01/16/22 04:50 BUN/Creatinine Ratio 30.3 RATIO (10-20) H 01/16/22 04:50 Glucose 140 mg/dL (74-106) H 01/16/22 04:50 Vancomycin Trough 8.1 ug/mL (5.0-15.0) 01/16/22 19:30 Microbiology: Microbiology 01/14/22 19:25 Wound - Toe Gram Stain - Final 01/14/22 19:25 Wound - Toe Wound Culture - Preliminary Staphylococcus aureus Gram positive sarah Goal Trough: 10-15 mcg/mL Pharmacy Plan for Drug Dosing: VANCOMYCIN LEVEL RECEIVED Current Vancomycin Dose: 750MG IV Q24H Number of Doses Received: 2 (1 initial, 1 scheduled) Vancomycin Level: 8.1 Hours Since Last Dose: 22hr Renal Function: 0.96 Renal Function Trend: improved Lab/Micro: Cx growing staph, no sens at this time Vancomycin Plan/Comments: Patient had trough drawn which resulted in a level of 8.1 (goal 10-15). Will increase dose slightly to 1g IV Q24h to start 01/16 @2100. Of note, evening dose of 750mg was hung, but spoke with nursing to stop infusion. Per nursing staff, bag was hanging for only ~5min. Since bag was just hung, will still administer increased dose tonight. Pending Level: 01/18/22 @2030, prior to 3rd dose of new regimen Pharmacy Service will continue to monitor and adjust dosing as required.
[2022-01-16] MEDS: ALPRAZolam 0.5 MG Tablet PO (21:37)
[2022-01-16] MEDS: Temazepam 15 MG Capsule PO (21:37)
[2022-01-16] MEDS: Vancomycin IV 1,000 MG/200 ML BAG 200 MG IV (21:39)
[2022-01-16] MEDS: Nystatin Powder 15gm Bottle 1 APPLIC TOPICAL (21:45)
[2022-01-16] MEDS: Menthol/Lanolin/Calamine/Znox 113 GM Tube 1 APPLIC TOPICAL (21:46)
[2022-01-16 21:51] LABS: Bedside Glucose 263 mg/dL (74-106)
[2022-01-16] MEDS: HYDROcodone Bitartrate/Apap 5/325 Tablet PO (23:50)
[2022-01-17 03:00] VITALS: BP 120/56; PULSE 72; RESP 18; TEMP 37.2; O2SAT 95
[2022-01-17 05:47] LABS: Absolute Neutrophil Count 6.4 X10^3/uL (2.0-7.7); Basophil# 0.04 X10^3/uL; Basophil% 0.5 % (0-1); Eosinophil# 0.14 X10^3/uL; Eosinophils% 1.6 % (0-5); Hematocrit 32.9 % (37-47); Hemoglobin 10.7 g/dL (12.0-15.0); Mean Corp Hgb Conc 32.5 g/dL (32-36); Mean Corpuscular Hgb 29.6 pg (27.0-32.0); Mean Corpuscular Volume 91.1 fL (81-99); Mean Platelet Vol. 10.3 fl (6.2-12.0); Monocyte# 0.69 X10^3/uL; Monocyte% 7.9 % (0-10); NRBC Flagged by Analyzer 0 % (0-5); Neutrophil % 72.9 % (47-70); Platelet Count 331 K/mm3 (150-450); RBC Distribution Width CV 12.4 % (11.6-14.6); RBC Distribution Width SD 41.3 fl (35.1-43.9); Red Blood Count 3.61 M/mm3 (4.2-5.4); White Blood Count 8.8 K/mm3 (4.4-11.0)
[2022-01-17 06:08] LABS: Anion Gap 8 (5-15); BUN 22 mg/dL (7-18); Calcium,Total 8.7 mg/dL (8.5-10.1); Chloride 101 mmol/L (98-107); Creatinine, Serum 0.88 mg/dL (0.55-1.02); EST Glomerular Filtration Rate 67 mL/min (>60); Est Glom Filt Rate - Afr Amer 81 mL/min (>60); Estimated Creatinine Clearance 49.17 ml/min; Glucose 205 mg/dL (74-106); Potassium 3.7 mmol/L (3.5-5.1); Sodium Level 136 mmol/L (136-145)
[2022-01-17] MEDS: Levothyroxine 50 MCG Tablet PO (06:16)
[2022-01-17] MEDS: Insulin Lispro 100 UNIT/ML INSULN.PEN SC ×4 (06:39→21:39)
[2022-01-17 06:46] LABS: Bedside Glucose 202 mg/dL (74-106)
--- NOTE | 2022-01-17 07:10 | PCM.PROGNOTE ---
Subjective Subjective This 71-year-old female was seen bedside this morning postoperative day 1 left hallux amputation secondary to gangrene and osteomyelitis. Her pain is mild and controlled. She denies fever, chill, nausea, vomiting. She reports she overall feels better and less confused today. Objective Data Objective Data Vital Signs: Vital Signs Temp Pulse Resp BP Pulse Ox 99.0 F 72 18 120/56 L 95 01/17/22 03:00 01/17/22 03:00 01/17/22 03:00 01/17/22 03:00 01/17/22 03:00 Oxygen Delivery Method Room Air Weight: 89.7 kg Body Mass Index (BMI) 32.9 Intake & Output: Intake and Output for Last 24 Hours 01/15/22 01/16/22 01/17/22 23:59 23:59 23:59 Intake Total 1465 / 1465 640 / 1040 709.25 / 709.25 Output Total 1100 / 1100 1500 / 1750 700 / 700 Balance 365 / 365 -860 / -710 9.25 / 9.25 Lab / Micro Data Result Diagrams: 01/17/22 05:20 01/17/22 05:20 Labs: Laboratory Results - last 24 hr 01/16/22 04:50: TSH 1.90 01/16/22 15:49: POC Glucose 242 H 01/16/22 19:30: Vancomycin Trough 8.1 01/16/22 21:43: POC Glucose 263 H 01/17/22 05:20: WBC 8.8, RBC 3.61 L, Hgb 10.7 L, Hct 32.9 L, MCV 91.1, MCH 29.6, MCHC 32.5, RDW Std Deviation 41.3, RDW Coeff of Pedro 12.4, Plt Count 331, MPV 10.3, Immature Gran % (Auto) 1.100 H, Neut % (Auto) 72.9 H, Lymph % (Auto) 16.0 L, [place] % (Auto) 7.9, Eos % (Auto) 1.6, Baso % (Auto) 0.5, Absolute Neuts (auto) 6.4, Absolute Lymphs (auto) 1.40, Nucleated RBC % 0 01/17/22 05:20: Sodium 136, Potassium 3.7, Chloride 101, Carbon Dioxide 27.0, Anion Gap 8, BUN 22 H, Creatinine 0.88, Estim Creat Clear Calc 49.17, Est GFR (MDRD) Af Amer 81, Est GFR (MDRD) Non-Af 67, BUN/Creatinine Ratio 25.0 H, Glucose 205 H, Calcium 8.7 01/17/22 06:37: POC Glucose 202 H Micro: Microbiology 01/14/22 19:25 Wound - Toe Gram Stain - Final 01/14/22 19:25 Wound - Toe Wound Culture - Preliminary Staphylococcus aureus Gram positive sarah Radiography Diagnostic Testing: Radiology Impression Toe X-Ray 01/16/22 13:30 IMPRESSION: Status post resection first digit. Electronically Signed: Christo Oneil MD at 17:22 EDT , Physical Exam Const alert, oriented x3, no apparent distress, healthy appearing and well nourished HEENT normocephalic Extremity normal to inspection and full ROM Extremity Narrative: She has dorsal contraction of all digits of the left foot with prominent metatarsal head Compartments are soft to palpate Left hallux amputation noted with sutures intact without gapping necrosis erythema bogginess or fluctuance General Extremity: normal exam except as noted Skin Skin Narrative: Capillary refill time is brisk to all aspects of the hallux amputation site. Foot is warm to touch Ulcer with granular tissue also noted to posterior heel / left Achilles with adherent slough, no purulence or erythema or warmth noted at this time. 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 Diagnostic data was reviewed and she is afebrile this morning with a white blood cell count 8.8. Preoperative wound cultures demonstrate staph and gram-positive sarah growth. Blood cultures negative so far. Intraoperative microbiology and pathology specimens including nonviable tissue and also an additional clearance fragment were obtained and these results are still pending. She is on broad-spectrum IV antibiotics including vancomycin and Zosyn. Narrowing is anticipated with ongoing culture results and clinical improvement. Betadine, Adaptic and gauze was applied to the amputation site which appears stable this morning. Clinically, her heel ulcer appears stable and adaptic was applied to this site. Off-loading: The patient was instructed to avoid pressure and friction on the affected areas. I recommend offloading donut pillow or hang heel/achilles/foot over pillows while in bed resting. Heel weight-bear with surgical shoe left for transfers only. Otherwise I recommend she tries to maintain nonweightbearing status with the use of an assistive device. She will work with physical and occupational therapy prior to discharge home. Nutritional supplementation is recommended to optimize healing; Michael. Due to delayed healing and edema, I recommend non invasive vascular studies (arterial) and venous doppler with reflux evaluation, respectively for work up of venous insufficiency. Noninvasive arterial studies demonstrated by and triphasic waveforms without evidence of arterial calcification. Her JULY is normal. Her toe brachial index was not obtained on the left foot due to her infected toe status and is noted she had decreased toe brachial index on the contralateral right lower extremity. If lack of healing is noted a vascular referral will be considered however it does not appear she is critical limb ischemia at this time. The venous Doppler for venous insufficiency work-up need to be done in outpatient setting. I recommend elevation and Marco wrap application to reduce lower extremity edema. Please do not hesitate to call if you have any questions. To follow-up with the wound healing center at time of discharge. I answered all of her questions and her case was discussed this morning. Tiffany Hairston DPM, [facility] [phone] This note was generated with [employer] dictation software. It may contain incorrect words, spelling, and punctuation that were not noted in checking the note before signing.
[2022-01-17 08:45] VITALS: BP 150/74; PULSE 71; RESP 18; TEMP 36.4; O2SAT 97
[2022-01-17] MEDS: Potassium Chloride Oral Tablet 20 MEQ PO (09:10)
[2022-01-17] MEDS: Clopidogrel Bisulfate 75 MG Tablet PO (09:10)
[2022-01-17] MEDS: Juven (unflavored) Packet 1 PACKET PO ×2 (09:10→17:04)
[2022-01-17] MEDS: Furosemide 40 MG Tablet PO (09:11)
[2022-01-17] MEDS: Insulin Glargine-YFGN 100 UNIT/ML Pen 28 UNIT SC (09:11)
[2022-01-17] MEDS: Gabapentin 600 MG Tablet PO ×2 (09:14→17:07)
[2022-01-17] MEDS: Glucerna Shake 120 ML LIQUID PO ×4 (09:14→21:47)
[2022-01-17] MEDS: hydroCHLOROthiazide 25 MG Tablet PO (09:14)
[2022-01-17] MEDS: Nystatin Powder 15gm Bottle 1 APPLIC TOPICAL ×2 (09:15→21:39)
[2022-01-17] MEDS: Ramipril 10 MG Capsule PO (10:02)
[2022-01-17] MEDS: Menthol/Lanolin/Calamine/Znox 113 GM Tube 1 APPLIC TOPICAL ×2 (10:02→21:39)
[2022-01-17] MEDS: Ondansetron 4 MG/2 ML Vial IV (10:53)
[2022-01-17] MEDS: 0.9% Saline Lock 10 ML Syringe IV ×2 (10:53→20:51)
--- NOTE | 2022-01-17 11:18 | PN.HOSP_ITS ---
Subjective Subjective Patient seen and examined. She had no complaints. She had an uneventful night and review of systems is otherwise negative. Today is pOD 1 for left hallux amputation. Objective Data Objective Data Vital Signs: Vital Signs Temp Pulse Resp BP Pulse Ox 97.5 F L 71 18 150/74 H 97 01/17/22 08:45 01/17/22 08:45 01/17/22 08:45 01/17/22 08:45 01/17/22 08:45 Oxygen Delivery Method Room Air Weight: 197 lb 12.074 oz Body Mass Index (BMI) 32.9 Intake & Output: Intake and Output for Last 24 Hours 01/15/22 01/16/22 01/17/22 23:59 23:59 23:59 Intake Total 1465 / 1465 640 / 1040 759.25 / 759.25 Output Total 1100 / 1100 1500 / 1750 700 / 700 Balance 365 / 365 -860 / -710 59.25 / 59.25 Lab / Micro Data Result Diagrams: 01/17/22 05:20 01/17/22 05:20 Labs: Laboratory Results - last 24 hr 01/16/22 04:50: TSH 1.90 01/16/22 15:49: POC Glucose 242 H 01/16/22 19:30: Vancomycin Trough 8.1 01/16/22 21:43: POC Glucose 263 H 01/17/22 05:20: WBC 8.8, RBC 3.61 L, Hgb 10.7 L, Hct 32.9 L, MCV 91.1, MCH 29.6, MCHC 32.5, RDW Std Deviation 41.3, RDW Coeff of Pedro 12.4, Plt Count 331, MPV 10.3, Immature Gran % (Auto) 1.100 H, Neut % (Auto) 72.9 H, Lymph % (Auto) 16.0 L, [place] % (Auto) 7.9, Eos % (Auto) 1.6, Baso % (Auto) 0.5, Absolute Neuts (auto) 6.4, Absolute Lymphs (auto) 1.40, Nucleated RBC % 0 01/17/22 05:20: Sodium 136, Potassium 3.7, Chloride 101, Carbon Dioxide 27.0, Anion Gap 8, BUN 22 H, Creatinine 0.88, Estim Creat Clear Calc 49.17, Est GFR (MDRD) Af Amer 81, Est GFR (MDRD) Non-Af 67, BUN/Creatinine Ratio 25.0 H, Glucose 205 H, Calcium 8.7 01/17/22 06:37: POC Glucose 202 H Micro: Microbiology 01/16/22 14:52 Bone - Toe Gram Stain - Final 01/16/22 14:52 Bone - Toe Wound Culture - Preliminary Staphylococcus aureus Gram positive organism 01/16/22 14:52 Bone - Toe Wound Culture - Preliminary Staphylococcus aureus 01/14/22 19:35 Blood Culture (Wb) - Left Hand Blood Culture - Preliminary No growth in 48 hours. 01/14/22 19:20 Blood Culture (Wb) - Anticubital Right Blood Culture - Preliminary No growth in 48 hours. 01/14/22 19:25 Wound - Toe Gram Stain - Final 01/14/22 19:25 Wound - Toe Wound Culture - Preliminary Staphylococcus aureus Gram positive sarah Radiography Diagnostic Testing: Radiology Impression Toe X-Ray 01/16/22 13:30 IMPRESSION: Status post resection first digit. Electronically Signed: Christo Oneil MD at 17:22 EDT , Physical Exam Const alert, oriented x3, no apparent distress, average body habitus and healthy appearing General Appearance: cooperative, well kempt and well developed Orientation / Consciousness: awake, oriented to person, oriented to place and oriented to time Exam Limitations: no limitations HEENT normocephalic, head/scalp atraumatic, hearing grossly normal bilaterally and moist oral mucous membranes Head and Scalp: normocephalic Eyes PERRL, EOMs intact bilaterally and conjunctivae normal Neck nuchal rigidity, no lymphadenopathy, supple, no JVD, thyroid normal and no carotid bruits General: trachea midline Resp normal respiratory effort, no retractions, no use of accessory muscles and clear to auscultation bilaterally Auscultation: Negative for rales, rhonchi or wheezes Cardio regular rate, regular rhythm, S1 normal heart sound, S2 normal heart sound, no murmurs and no gallops GI normal to inspection, nondistended, normoactive bowel sounds, soft to palpation, non-tender and non-distended Extremity Extremity Narrative: left foot wrapped in a bandage Peripheral Pulses: Yes pulses 2+ throughout Skin Skin Narrative: LLE wrapped in bandage General Skin Exam: no breakdown Neuro oriented x3, CN's II-XII intact bilaterally, moves all extremities and no sensory deficits noted Sensorium / Orientation: awake and alert Speech: speech normal Psych affect normal Assessment & Plan Assessment/Plan (1) 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 TOday is POD 1. * MRI of the left foot showed bone edema of the proximal and distal phalanges of the great toe, worrisome for osteomyelitis, with edema of the subcutis adipose spac without demonstrated focal fluid collection to indicate abscess. * #Type 2 diabetes mellitus with peripheral neuropathy * amaryl on hold. ISS. * Accuchecks ACHS. * on gabapentin. * on lantus 28 units daily. * #Peripheral vascular disease * on plavix and statin * #Hypothyroidism: on synthroid #Hypertension: on HCTZ and ramipril. #Anxiety: on xanax #lactic acidosis: resolved. DVT prophylaxis: heparin Disposition: to be determined Charges/Coding Visit Charges Inpatient E&M: 93301 Subs Hosp L2
[2022-01-17 12:01] LABS: Bedside Glucose 320 mg/dL (74-106)
[2022-01-17 14:30] VITALS: BP 145/76; PULSE 85; RESP 18; TEMP 36.7; O2SAT 96
--- NOTE | 2022-01-17 14:41 | CON.PCM.ID_ITS ---
Assessment & Plan Assessment/Plan (1) Gangrene of toe of left foot: (2) Osteomyelitis: PLAN: Now s/p toe amp by Dr. Hairston 01/16/22. Wound cx with CoNS x2 previously. Wound cx here with MSSA and GPR. Bcx neg. Clearance cx already (+). Discussed options for iv vs po abx with her. With some source control now, ok for home with 6 weeks po doxy and augmentin. ID followup in 2 weeks. Will follow, thank you. (3) Type 2 diabetes mellitus with diabetic polyneuropathy: HPI Consult Data Date of Consult: 01/17/22 HPI Narrative HPI Narrative: RAGHAV GREGOYR, is a 71 F who presented with 5 weeks of progressive L 1st toe swelling, redness, drainage after nurse clinician cut her toenail too deep. Has neuropathy, no pain. Started on bactrim the week prior to coming in. D eveloped fever, admitted, started on vanc/zosyn, taken to OR 01/[address] Hairston for toe amp. Feeling better. Full ROS performed and neg except as noted above. Covid vaccine and booster done. COUNTS INCLUDE 234 BEDS AT THE [facility] Medical History Diabetes Diabetic foot ulcer associated with type 2 diabetes mellitus Hypothyroidism Neuropathy Home Medications alprazolam 0.5 mg PO TID PRN PRN 07/16/20 [History Last Taken Unknown] clopidogrel 75 mg PO DAILY 07/16/20 [History Last Taken Unknown] ergocalciferol (vitamin D2) 1.25 unit PO QWEEK 07/16/20 [History Last Taken Unknown] furosemide 40 mg PO DAILY 07/16/20 [History Last Taken Unknown] gabapentin 600 mg PO BIDCM 07/16/20 [History Last Taken Unknown] glimepiride 4 mg PO DAILY 07/16/20 [History Last Taken Unknown] hydrocodone-acetaminophen 1 ea PO BID PRN PRN 07/16/20 [History Last Taken Unknown] insulin detemir U-100 28 unit SQ DAILY 07/16/20 [History Last Taken Unknown] levothyroxine 50 mcg PO DAILY 07/16/20 [History Last Taken Unknown] potassium chloride 20 meq PO DAILYCM #30 tab 07/19/20 [Rx Last Taken Unknown] hydrochlorothiazide 25 mg PO DAILY 10/31/21 [History Last Taken Unknown] ramipril 10 mg PO DAILY 10/31/21 [History Last Taken Unknown] semaglutide [Ozempic] 0.25 mg SUBCUT QWEEK 10/31/21 [History Last Taken Unknown] amoxicillin-pot clavulanate 1 tab PO Q12H #80 tab 01/17/22 [Rx Last Taken Unknown] doxycycline hyclate 100 mg PO BID #80 cap 01/17/22 [Rx Last Taken Unknown] Allergy/AdvReac Type Severity Reaction Status Date / Time No Known Allergies Allergy Verified 01/14/22 17:42 Surgical History History of appendectomy History of cholecystectomy Social History Smoking Status: Never smoker Physical Exam Const alert, oriented x3 and no apparent distress General Appearance: cooperative Exam Limitations: no limitations HEENT normocephalic and head/scalp atraumatic Eyes PERRL and EOMs intact bilaterally Neck supple and No nodes Resp normal air movement and clear to auscultation bilaterally Cardio regular rate and regular rhythm GI soft to palpation, non-tender and non-distended Extremity no clubbing, cyanosis or edema Skin Skin Narrative: reviewed photo Neuro CN's II-XII intact bilaterally Lab / Micro Data Result Diagrams: 01/17/22 05:20 01/17/22 05:20 Labs: Laboratory Results - last 24 hr 01/16/22 15:49: POC Glucose 242 H 01/16/22 19:30: Vancomycin Trough 8.1 01/16/22 21:43: POC Glucose 263 H 01/17/22 05:20: WBC 8.8, RBC 3.61 L, Hgb 10.7 L, Hct 32.9 L, MCV 91.1, MCH 29.6, MCHC 32.5, RDW Std Deviation 41.3, RDW Coeff of Pedro 12.4, Plt Count 331, MPV 10.3, Immature Gran % (Auto) 1.100 H, Neut % (Auto) 72.9 H, Lymph % (Auto) 16.0 L, [place] % (Auto) 7.9, Eos % (Auto) 1.6, Baso % (Auto) 0.5, Absolute Neuts (auto) 6.4, Absolute Lymphs (auto) 1.40, Nucleated RBC % 0 01/17/22 05:20: Sodium 136, Potassium 3.7, Chloride 101, Carbon Dioxide 27.0, Anion Gap 8, BUN 22 H, Creatinine 0.88, Estim Creat Clear Calc 49.17, Est GFR (MDRD) Af Amer 81, Est GFR (MDRD) Non-Af 67, BUN/Creatinine Ratio 25.0 H, Glucose 205 H, Calcium 8.7 01/17/22 06:37: POC Glucose 202 H 01/17/22 11:52: POC Glucose 320 H Micro: Microbiology 01/16/22 14:52 Bone - Toe Gram Stain - Final 01/16/22 14:52 Bone - Toe Wound Culture - Preliminary Staphylococcus aureus 01/16/22 14:52 Bone - Toe Gram Stain - Final 01/16/22 14:52 Bone - Toe Wound Culture - Preliminary Staphylococcus aureus Gram positive organism 01/14/22 19:35 Blood Culture (Wb) - Left Hand Blood Culture - Preliminary No growth in 48 hours. 01/14/22 19:20 Blood Culture (Wb) - Anticubital Right Blood Culture - Preliminary No growth in 48 hours. 01/14/22 19:25 Wound - Toe Gram Stain - Final 01/14/22 19:25 Wound - Toe Wound Culture - Preliminary Staphylococcus aureus Gram positive sarah Radiology Impression Toe X-Ray 01/16/22 13:30 IMPRESSION: Status post resection first digit. Electronically Signed: Christo Oneil MD at 17:22 EDT ,
[2022-01-17 17:15] LABS: Bedside Glucose 294 mg/dL (74-106)
[2022-01-17] MEDS: Vancomycin IV 1,000 MG/200 ML BAG 200 MG IV (20:46)
[2022-01-17 21:33] VITALS: BP 150/72; PULSE 94; RESP 18; TEMP 36.9; O2SAT 94
[2022-01-17] MEDS: Docusate Sodium 100 MG Capsule PO (21:39)
[2022-01-17] MEDS: Heparin Injection (Vial) 5,000 UNIT/ML VIAL 5000 UNIT SC (21:44)
[2022-01-17 22:06] LABS: Bedside Glucose 263 mg/dL (74-106)
[2022-01-18] MEDS: ALPRAZolam 0.5 MG Tablet PO ×2 (00:14→12:48)
[2022-01-18] MEDS: Temazepam 15 MG Capsule PO (00:14)
[2022-01-18] MEDS: HYDROcodone Bitartrate/Apap 5/325 Tablet PO (00:22)
[2022-01-18 04:30] VITALS: BP 116/74; PULSE 83; RESP 16; TEMP 36.6; O2SAT 95
[2022-01-18] MEDS: Insulin Lispro 100 UNIT/ML INSULN.PEN SC ×2 (06:19→11:15)
[2022-01-18] MEDS: Levothyroxine 50 MCG Tablet PO (06:21)
[2022-01-18 06:50] LABS: Bedside Glucose 200 mg/dL (74-106)
[2022-01-18 07:36] LABS: Absolute Lymphocyte Count 1.62 X10^3/uL (0.83-4.51); Absolute Neutrophil Count 5.8 X10^3/uL (2.0-7.7); Basophil# 0.04 X10^3/uL; Basophil% 0.5 % (0-1); Eosinophil# 0.14 X10^3/uL; Eosinophils% 1.7 % (0-5); Hematocrit 37.1 % (37-47); Hemoglobin 11.8 g/dL (12.0-15.0); Lymphocyte # 1.62 X10^3/ul (0.83-4.51); Lymphocyte % 19.7 % (19-41); Mean Corp Hgb Conc 31.8 g/dL (32-36); Mean Corpuscular Hgb 29.4 pg (27.0-32.0); Mean Corpuscular Volume 92.5 fL (81-99); Mean Platelet Vol. 10.1 fl (6.2-12.0); Monocyte# 0.53 X10^3/uL; Monocyte% 6.4 % (0-10); NRBC Flagged by Analyzer 0 % (0-5); Neutrophil % 70.5 % (47-70); Platelet Count 345 K/mm3 (150-450); RBC Distribution Width CV 12.5 % (11.6-14.6); RBC Distribution Width SD 42.2 fl (35.1-43.9); Red Blood Count 4.01 M/mm3 (4.2-5.4); White Blood Count 8.2 K/mm3 (4.4-11.0)
--- NOTE | 2022-01-18 07:42 | PCM.PROGNOTE ---
Subjective Subjective This 71-year-old female was seen bedside this morning postoperative day #2 left hallux amputation secondary to gangrene and osteomyelitis. Her pain is mild and controlled. She denies fever, chill, nausea, vomiting. She reports she did not get to practice ambulation with physical therapy yet and is concerned about returning home today. She would like to work with them further today and consider discharge tomorrow. Objective Data Objective Data Vital Signs: Vital Signs Temp Pulse Resp BP Pulse Ox 97.9 F 83 16 116/74 95 01/18/22 04:30 01/18/22 04:30 01/18/22 04:30 01/18/22 04:30 01/18/22 04:30 Oxygen Delivery Method Room Air Weight: 89.7 kg Body Mass Index (BMI) 32.9 Intake & Output: Intake and Output for Last 24 Hours 01/16/22 01/17/22 01/18/22 23:59 23:59 23:59 Intake Total 640 / 1040 2448.50 / 2448.50 101.5 / 101.5 Output Total 1500 / 1750 1025 / 1025 250 / 250 Balance -860 / -710 1423.50 / 1423.50 -148.5 / -148.5 Lab / Micro Data Result Diagrams: 01/18/22 07:00 01/18/22 07:00 Labs: Laboratory Results - last 24 hr 01/17/22 11:52: POC Glucose 320 H 01/17/22 17:02: POC Glucose 294 H 01/17/22 21:36: POC Glucose 263 H 01/18/22 06:17: POC Glucose 200 H 01/18/22 07:00: WBC 8.2, RBC 4.01 L, Hgb 11.8 L, Hct 37.1, MCV 92.5, MCH 29.4, MCHC 31.8 L, RDW Std Deviation 42.2, RDW Coeff of Pedro 12.5, Plt Count 345, MPV 10.1, Immature Gran % (Auto) 1.200 H, Neut % (Auto) 70.5 H, Lymph % (Auto) 19.7, [place] % (Auto) 6.4, Eos % (Auto) 1.7, Baso % (Auto) 0.5, Absolute Neuts (auto) 5.8, Absolute Lymphs (auto) 1.62, Nucleated RBC % 0 Micro: Microbiology 01/16/22 14:52 Bone - Toe Gram Stain - Final 01/16/22 14:52 Bone - Toe Wound Culture - Preliminary Staphylococcus aureus 01/16/22 14:52 Bone - Toe Gram Stain - Final 01/16/22 14:52 Bone - Toe Wound Culture - Preliminary Staphylococcus aureus Gram positive organism 01/14/22 19:35 Blood Culture (Wb) - Left Hand Blood Culture - Preliminary No growth in 48 hours. 01/14/22 19:20 Blood Culture (Wb) - Anticubital Right Blood Culture - Preliminary No growth in 48 hours. 01/14/22 19:25 Wound - Toe Gram Stain - Final 01/14/22 19:25 Wound - Toe Wound Culture - Preliminary Staphylococcus aureus Gram positive sarah Physical Exam Const alert, oriented x3, no apparent distress, healthy appearing and well nourished HEENT normocephalic Extremity normal to inspection and full ROM Extremity Narrative: She has dorsal contraction of all digits of the left foot with prominent metatarsal head Compartments are soft to palpate Left hallux amputation noted with sutures intact without gapping necrosis erythema bogginess or fluctuance General Extremity: normal exam except as noted Skin Skin Narrative: Capillary refill time is brisk to all aspects of the hallux amputation site. Foot is warm to touch Ulcer with granular tissue also noted to posterior heel / left Achilles with adherent slough, no purulence or erythema or warmth noted at this time. 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 Diagnostic data was reviewed and she is afebrile this morning without leukocytosis. Preoperative wound cultures demonstrate staph and gram-positive sarah growth. Blood cultures negative so far. Intraoperative microbiology and pathology specimens including nonviable tissue and also an additional clearance fragment were obtained. Clearance micro has some staph growth and the clearance pathology specimen results are still pending. Infectious disease on consultation and is greatly appreciated. She has good source control and the plan is tentatively for 6 weeks on oral doxycycline and Augmentin. She will follow-up with infectious disease in 2 weeks. Betadine, Adaptic and gauze was applied to the amputation site which appears stable this morning. Clinically, her heel ulcer appears stable and adaptic was applied to this site. Off-loading: The patient was instructed to avoid pressure and friction on the affected areas. I recommend offloading donut pillow or hang heel/achilles/foot over pillows while in bed resting. Heel weight-bear with surgical shoe left for transfers only. Otherwise I recommend she tries to maintain nonweightbearing status with the use of an assistive device. She will work with physical and occupational therapy prior to discharge home. Nutritional supplementation is recommended to optimize healing; Michael. Due to delayed healing and edema, I recommended non invasive vascular studies (arterial) and venous doppler with reflux evaluation, respectively for work up of venous insufficiency. Noninvasive arterial studies demonstrated bi and triphasic waveforms without evidence of arterial calcification. Her JULY is normal. Her toe brachial index was not obtained on the left foot due to her infected toe status and is noted she had decreased toe brachial index on the contralateral right lower extremity. If lack of healing is noted, a vascular referral will be considered however it does not appear she is critical limb ischemia at this time. The venous Doppler for venous insufficiency work-up need to be done in outpatient setting. I recommend elevation and Marco wrap application to reduce lower extremity edema. Please do not hesitate to call if you have any questions. To follow-up with the wound healing center next Thursday. I answered all of her questions and her case was discussed this morning. Tiffany Hairston DPM, [facility] [phone] This note was generated with [employer] software. It may contain incorrect words, spelling, and punctuation that were not noted in checking the note before signing.
[2022-01-18 08:03] LABS: Anion Gap 4 (5-15); BUN 18 mg/dL (7-18); BUN/Creat Ratio 23.8 RATIO (10-20); Calcium,Total 9.6 mg/dL (8.5-10.1); Chloride 100 mmol/L (98-107); Creatinine, Serum 0.76 mg/dL (0.55-1.02); EST Glomerular Filtration Rate 80 mL/min (>60); Est Glom Filt Rate - Afr Amer 96 mL/min (>60); Estimated Creatinine Clearance 43.27 ml/min; Glucose 174 mg/dL (74-106); Potassium 4.1 mmol/L (3.5-5.1); Sodium Level 136 mmol/L (136-145)
[2022-01-18] MEDS: Juven (unflavored) Packet 1 PACKET PO (08:50)
[2022-01-18] MEDS: Potassium Chloride Oral Tablet 20 MEQ PO (08:50)
[2022-01-18] MEDS: Clopidogrel Bisulfate 75 MG Tablet PO (08:51)
[2022-01-18] MEDS: Ramipril 10 MG Capsule PO (08:52)
[2022-01-18] MEDS: Nystatin Powder 15gm Bottle 1 APPLIC TOPICAL (08:52)
[2022-01-18] MEDS: Furosemide 40 MG Tablet PO (08:52)
[2022-01-18] MEDS: hydroCHLOROthiazide 25 MG Tablet PO (08:52)
[2022-01-18] MEDS: Heparin Injection (Vial) 5,000 UNIT/ML VIAL 5000 UNIT SC (08:53)
[2022-01-18] MEDS: Insulin Glargine-YFGN 100 UNIT/ML Pen 28 UNIT SC (08:53)
[2022-01-18] MEDS: Menthol/Lanolin/Calamine/Znox 113 GM Tube 1 APPLIC TOPICAL (08:53)
[2022-01-18] MEDS: Glucerna Shake 120 ML LIQUID PO (08:57)
[2022-01-18] MEDS: Gabapentin 600 MG Tablet PO (08:57)
[2022-01-18 09:10] VITALS: BP 154/81; PULSE 100; RESP 18; TEMP 36.3; O2SAT 99
--- NOTE | 2022-01-18 11:42 | DS.PCM_ITS ---
Providers Date of Admission: 01/14/22 Primary Care Physician: Dr. Marion Roland, Consultations 01/14/22 22:48 Consult: Onc/Wound/plant wrapper Routine Comment: Reason for Consult:: left foot wound Consult: Podiatry Routine Consulting Provider: Tiffany Hairston Reason for Consult: left great toe infection EMERGENT Consult: No MD Notified: Yes Date Notified: 01/14/22 Time Notified: 22:32 Method of Notification: Verbal 01/17/22 12:41 Consult: Infectious Disease Routine Consulting Provider: Gibson Ruiz Reason for Consult: diabetic foot infection EMERGENT Consult: No Notified: Yes Date Notified: 01/17/22 Time Notified: 12:41 Method of Notification: Verbal Reason For Visit: NEUROPATHIC INFECTION OF THE LEFT GREAT TOE Diagnosis Discharge Diagnosis (1) Type 2 diabetes mellitus with diabetic polyneuropathy: Status: Acute Code(s): E11.42 - Type 2 diabetes mellitus with diabetic polyneuropathy (2) 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: Status: Chronic Code(s): L97.422 - Non-pressure chronic ulcer of left heel and midfoot with fat layer exposed (3) Osteomyelitis: Status: Acute Code(s): M86.9 - Osteomyelitis, unspecified (4) 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: Status: Acute Code(s): L97.504 - Non-pressure chronic ulcer of other part of unspecified foot with necrosis of bone Medications at Discharge Home Medications alprazolam 0.5 mg PO TID PRN PRN 07/16/20 clopidogrel 75 mg PO DAILY 07/16/20 ergocalciferol (vitamin D2) 1.25 unit PO QWEEK 07/16/20 furosemide 40 mg PO DAILY 07/16/20 gabapentin 600 mg PO BIDCM 07/16/20 glimepiride 4 mg PO DAILY 07/16/20 hydrocodone-acetaminophen 1 ea PO BID PRN PRN 07/16/20 insulin detemir U-100 28 unit SQ DAILY 07/16/20 levothyroxine 50 mcg PO DAILY 07/16/20 potassium chloride 20 meq PO DAILYCM #30 tab 07/19/20 Ozempic 0.25 mg SUBCUT QWEEK 10/31/21 hydrochlorothiazide 25 mg PO DAILY 10/31/21 ramipril 10 mg PO DAILY 10/31/21 amoxicillin-pot clavulanate 1 tab PO Q12H #80 tab 01/17/22 doxycycline hyclate 100 mg PO BID #80 cap 01/17/22 Hospital Course Operations - (toe amputation) Procedures None Summary of Care Provided Minutes Spent on Discharge: 45 Hospital Course: Patient is a 71 y/o male with a PMH as outlined who was outlined who was admitted via the ED on 01/14/2022 with a complaint of left great toe wound which she had had for several weeks. She had associated fever and chills and had been seeen at the wound center a day before admission. She had imaging done there which showed marked soft tissue swelling and deformity of the great toe and fourth toe of the left foot. She went to an outside hospital ER and was sent to [facility]. Podiatry was consulted and she was admitted and managed for diabetic foot infection of the left great toe. She was started on IV vancomycin and zosyn. 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 Postop course was uncomplicated. Infectious disease was consulted. Wound cultures grew MSSA and gram-positive rods. Blood cultures were negative. ID reviewed patient and recommended discharge on p.o. doxycycline and Augmentin for 6 weeks. She is to follow-up with her primary care doctor and to follow-up with podiatry on outpatient basis. Patient seen and examined prior to discharge. She felt well and had no active complaints overnight. Pain was well controlled. Review of systems otherwise negative. Labs and vitals reviewed. Home medication reviewed and reconciled. Physical Exam Const alert, oriented x3, no apparent distress, average body habitus and healthy appearing General Appearance: cooperative, well kempt and well developed Orientation / Consciousness: awake, oriented to person, oriented to place and oriented to time Exam Limitations: no limitations HEENT normocephalic, head/scalp atraumatic, hearing grossly normal bilaterally and moist oral mucous membranes Eyes PERRL, EOMs intact bilaterally and conjunctivae normal Neck nuchal rigidity, no lymphadenopathy, supple, no JVD, thyroid normal and no carotid bruits General: trachea midline Resp normal respiratory effort, no retractions, no use of accessory muscles and clear to auscultation bilaterally Auscultation: Negative for rales, rhonchi or wheezes Cardio regular rate, regular rhythm, S1 normal heart sound, S2 normal heart sound, no murmurs and no gallops GI normal to inspection, nondistended, normoactive bowel sounds, soft to palpation, non-tender and non-distended Extremity Extremity Narrative: left foot wrapped in a bandage Skin Skin Narrative: LLE wrapped in bandage General Skin Exam: no breakdown Neuro oriented x3, CN's II-XII intact bilaterally, moves all extremities and no sensory deficits noted Sensorium / Orientation: awake and alert Speech: speech normal Psych affect normal Weight / BMI Weight Weight: 197 lb 12.074 oz Body Mass Index (BMI) 32.9 ABG / Lab / Microbiology Data Result Diagrams: 01/18/22 07:00 01/18/22 07:00 Laboratory: Laboratory Results - last 24 hr 01/17/22 11:52: POC Glucose 320 H 01/17/22 17:02: POC Glucose 294 H 01/17/22 21:36: POC Glucose 263 H 01/18/22 06:17: POC Glucose 200 H 01/18/22 07:00: WBC 8.2, RBC 4.01 L, Hgb 11.8 L, Hct 37.1, MCV 92.5, MCH 29.4, MCHC 31.8 L, RDW Std Deviation 42.2, RDW Coeff of Pedro 12.5, Plt Count 345, MPV 10.1, Immature Gran % (Auto) 1.200 H, Neut % (Auto) 70.5 H, Lymph % (Auto) 19.7, [place] % (Auto) 6.4, Eos % (Auto) 1.7, Baso % (Auto) 0.5, Absolute Neuts (auto) 5.8, Absolute Lymphs (auto) 1.62, Nucleated RBC % 0 01/18/22 07:00: Sodium 136, Potassium 4.1, Chloride 100, Carbon Dioxide 32.0, Anion Gap 4 L, BUN 18, Creatinine 0.76, Estim Creat Clear Calc 43.27, Est GFR (MDRD) Af Amer 96, Est GFR (MDRD) Non-Af 80, BUN/Creatinine Ratio 23.8 H, Glucose 174 H, Calcium 9.6 Microbiology: Microbiology 01/14/22 19:25 Wound - Toe Gram Stain - Final 01/14/22 19:25 Wound - Toe Wound Culture - Final Staphylococcus aureus Gram positive sarah 01/16/22 14:52 Bone - Toe Gram Stain - Final 01/16/22 14:52 Bone - Toe Wound Culture - Preliminary Staphylococcus aureus Gram positive organism 01/16/22 14:52 Bone - Toe Gram Stain - Final 01/16/22 14:52 Bone - Toe Wound Culture - Final Staphylococcus aureus 01/14/22 19:35 Blood Culture (Wb) - Left Hand Blood Culture - Preliminary No growth in 48 hours. 01/14/22 19:20 Blood Culture (Wb) - Anticubital Right Blood Culture - Preliminary No growth in 48 hours. D/C Instructions Discharge Diet: Low fat / Low cholesterol Discharge Activity: Return to Normal Activity Weight Bearing Status: Weight bearing as tolerated Call your doctor if your incision/area has: Continuous Slow Oozing, Sudden Increased Bleeding, Increased Pain/ Swelling, Increased Redness, Foul Smelling Discharge and Swelling at the incision site Call your doctor if you observe: Fever of 101 or Higher, Shortness of breath, Swelling in the ankles, Increased palpitations (irregular heartbeat) and Uncontrolled pain Meaningful Use Info Meaningful Use Diagnoses (Choose all that apply): None applicable Discharge Plan Admission Admit Date/Time: 01/14/22 22:27 Primary Reason for Your Visit: left great toe osteomyelitis Attending Provider: Paula Naranjo Primary Care Provider: Marion Roland Consulting Providers: Tiffany Hairston ; Milad Reynolds ; Gibson Ruiz Instructions Additional Instructions / Restrictions: Keep left foot dressing clean, dry, and intact until follow-up at the wound healing center next Thursday with Dr. Hairston. Keep Marco wrap intact to the left foot and leg. Hang heel over stacked pillows while in bed to avoid direct pressure to the heel ulcer site. Maintain a nonweightbearing status of the left lower extremity with surgical shoe use and the use of an assistive device such as a walker. It is okay to occasionally heel touch for transfers if needed. Discharge Orders/Prescriptions Prescriptions: New doxycycline hyclate 100 mg capsule 100 mg PO BID Qty: 80 RF: 0 amoxicillin-pot clavulanate 875-125 mg tablet 1 tab PO Q12H Qty: 80 RF: 0 Continued furosemide 40 MG tablet 40 mg PO DAILY RF: 0 gabapentin 600 MG tablet 600 mg PO BIDCM RF: 0 hydrocodone-acetaminophen 1 EACH tablet 1 ea PO BID PRN PRN (Reason: Not Specified) RF: 0 clopidogrel 75 MG tablet 75 mg PO DAILY RF: 0 levothyroxine 50 MCG tablet 50 mcg PO DAILY RF: 0 glimepiride 4 MG tablet 4 mg PO DAILY RF: 0 insulin detemir U-100 100 UNIT/ML solution 28 unit SQ DAILY RF: 0 alprazolam 0.5 MG tablet 0.5 mg PO TID PRN PRN (Reason: Anxiety) RF: 0 ergocalciferol (vitamin D2) 50,000 UNIT capsule 1.25 unit PO QWEEK RF: 0 potassium chloride 20 MEQ tablet 20 meq PO DAILYCM Qty: 30 RF: 0 hydrochlorothiazide 25 mg Tablet 25 mg PO DAILY RF: 0 ramipril 10 mg Tablet 10 mg PO DAILY RF: 0 Ozempic 0.25 mg or 0.5 mg(2 mg/1.5 mL) Pen Injector 0.25 mg SUBCUT QWEEK RF: 0 Referrals / Follow Up: Tiffany Hairston DPM [STAFF PHYSICIAN] - In 1 Week (Follow-up next Thursday at the wound healing center. Call [phone].) Marion Roland DO [Primary Care Provider] - Within 2 Weeks Disposition Disposition (needs filled in before D/C Order can be placed): Home Health Service Charges/Coding Visit Charges Inpatient E&M: 68549 Disch Hosp
[2022-01-18 11:46] LABS: Bedside Glucose 243 mg/dL (74-106)
--- NOTE | 2022-01-18 12:15 | CASEMGMT ---
JUNI NEAL NOTE: PT note reviewed--additional therapy recommended. JUNI NEAL to room to talk w/pt and she was made aware of recommendations. She declines wanting HHC at this time. She inquired what to do if she changes her mind once she gets home. JUNI NEAL informed pt to f/u w/her PCP and HHC can be set up by them. She voices understanding. Pt was provided with list of local HHC providers as a resource, if needed. She voices appreciation. She denies having any concerns w/going home. Ken FORD RN, CM
[2022-01-18] MEDS: Loperamide 2 MG Capsule PO (13:24)
[2022-01-18 15:05] VITALS: BP 126/67; PULSE 99; RESP 18; TEMP 36.7; O2SAT 96
== END 2022-01-18 15:58 | disposition home health service (06) | DRG 617 ==
LOC: ED 22:02 → MS3 22:37
PROVIDERS: Podiatrist; Admitting Provider Internal Medicine; Emergency Provider Emergency Medicine; PCP Family Medicine; Visit Provider Student in an Organized Health Care Education/Training Program
PROC: 0Y6Q0Z0 Detachment at Left 1st Toe, Complete, Open Approach (ICD-10-PCS; principal; 2022-01-16 13:15)
DX: E11.621 Type 2 diabetes mellitus with foot ulcer (principal); E11.52 Type 2 diabetes mellitus with diabetic peripheral angiopathy with gangrene; M86.172 Other acute osteomyelitis, left ankle and foot; E87.2 Acidosis; L97.422 Non-pressure chronic ulcer of left heel and midfoot with fat layer exposed; E11.42 Type 2 diabetes mellitus with diabetic polyneuropathy; E11.69 Type 2 diabetes mellitus with other specified complication; L97.524 Non-pressure chronic ulcer of other part of left foot with necrosis of bone; Z79.4 Long term (current) use of insulin; B95.61 Methicillin susceptible Staphylococcus aureus infection as the cause of diseases classified elsewhere; E03.9 Hypothyroidism, unspecified; B96.89 Other specified bacterial agents as the cause of diseases classified elsewhere; I10 Essential (primary) hypertension; F41.9 Anxiety disorder, unspecified; Z79.02 Long term (current) use of antithrombotics/antiplatelets; Z79.84 Long term (current) use of oral hypoglycemic drugs; Z79.899 Other long term (current) drug therapy
CPT/HCPCS: 36415; 73630; 73660; 73718; 76000; 80048; 80053; 80202; 82962; 83605; 84443; 85025; 85610; 85652; 85730; 86140; 87015; 87040; 87070; 87075; 87077; 87102; 87107; 87116; 87186; 87205; 87206; 88304; 88305; 88311; 93005; 93923; 97116; 97162; 97166; 97530; 97802; 97803; 99284; J7050; A4216; J2405

== ENCOUNTER 2022-01-22 15:30 | Outpatient (RCR) | payer MEDICARE, SELFPAY ==
[2021-12-29 00:21] VITALS: BP 172/70; PULSE 68; RESP 18; TEMP 36.6; BMI 28.6
[2022-01-08 15:46] VITALS: TEMP 36.2; BMI 28.6
--- NOTE | 2022-01-08 16:24 | PN.PCM_ITS ---
History of Present Illness Date of Service: 01/08/22 Chief Complaint: Diabetic foot ulcer left heel History of Wound: This is a 71-year-old white female who presents to the wound healing center today with complaint of diabetic foot ulcer to the left heel. She has a past medical history significant for type 2 diabetes mellitus (most recent A1c said to be 6), hypertension, hypothyroidism. The patient states that over the last 3 to 4 months she has had issues with a ulceration to her left heel. She has been following Dr. Shaver podiatry who has had patient in an offloading boot and patient said that she has been utilizing Silvadene as wound care covering with gauze. She states that her primary care did order an MRI of the heel as well which was said to be negative. She was placed on antibiotics at 1 point but states that she is no longer on these. She states that her wound does seem to be improving, however is improving slowly. She denies any purulent drainage or any systemic signs of infection such as fever or chills. She denies any other aggravating relieving factors. Objective Data Objective Data Vital Signs: Vital Signs Temp Pulse Resp BP 97.2 F L 68 18 172/70 H 01/08/22 15:46 12/29/21 00:21 12/29/21 00:21 12/29/21 00:21 Weight: 78.018 kg Body Mass Index (BMI) 28.6 Physical Exam Const alert, oriented x3, no apparent distress, healthy appearing and well nourished HEENT normocephalic Extremity normal to inspection and full ROM General Extremity: normal exam except as noted Skin Skin Narrative: Wound present to left hallux and also heel with adherent slough and there is no maceration noted this week, diabetic foot ulcer present on left great toe and also left Achilles with adherent slough, no purulence or erythema or warmth noted at this time. Chronic venous changes present bilateral lower extremities and dorsal pedis pulses 2+ Neuro oriented x3 and moves all extremities Sensorium / Orientation: awake, alert, oriented to person, oriented to place and oriented to time Debridement Note Debridement Note Wound debrided: left hallux, left heel/achilles Wound Grade/Stage: 1,1 Type of Debridement: Excisional debridement Anesthesia Used: 4% Lidocaine Solution Depth: in the subcutaneous layer Percentage of wound debrided: 100 Instrument Used: #15 blade Tissue Removed: fibrous, devitalized subcutaneous, biofilm, slough Severity: Fat Layer Exposed Amount of bleeding with debridement: Mild Bleeding Controlled with: Pressure Patient tolerated procedure: Patient tolerated procedure well Post-Debridement Measurements and Additional Note: Post-Debridement Measurements/Treatment - Nurse 1 - General Ulcer Assessment Start: 01/01/22 07:05 Freq: Status: Active Protocol: MAYO Activity Type Activity Date Activity User E-Sign Co-Sign Detail Recorded Client Recorded Date Recorded By Document 01/08/22 15:46 [place] [id number] 01/08/22 15:49 [place] 01/08/22 15:46 - Today's Visit Information Type of service Follow-up Visit (Physician/[employer] ) Arrival Mode Ambulatory Patient Identification Verified (Name & Yes ) Patient Requires Transmission-Based No Precautions Height and Weight Body Mass Index (BMI) 28.6 BMI Classification Overweight Vital Signs Temperature (97.8 F-99.1 F) 97.2 F L Temperature Source Temporal History Since Last Visit- (Skip if this is Patient's initial visit) Have you changed medications since your No last visit? Any new allergies or adverse reactions No Had a fall/change in ADL's that may No increase risk of falls Signs or symptoms of abuse and/or No neglect since last visit Have you been in the hospital since your No last visit? Has dressing in place as prescribed Yes Has compression in place as prescribed Yes Has offloadiing in place as prescribed N/A Experienced any changes in pain level or No management Left Footwear Regular Shoe Right Footwear Regular Shoe Pain Scale: 0-10 Numeric Is Patient Pain Free? Yes [facility] Nurse 1 - General Ulcer Measurement Start: 01/01/22 07:05 Freq: Status: Active Protocol: Activity Type Activity Date Activity User E-Sign Co-Sign Detail Recorded Client Recorded Date Recorded By Document 01/08/22 15:46 [place] [id number] 01/08/22 15:49 [place] 01/08/22 15:46 Wound Center Nurse 1 #3 LEFT GREAT TOE -Combined with other wound No -Current Size (cm) - Length 2.5 -Current Size (cm) - Width 4 -Current Size (cm) - Depth 0.1 -Total Square Cm 10.0 -Photo Taken No -Epithelialization None Present -Tunneling No -Undermining/Tunneling No -Circular Undermining No -Exudate Amt Large -Exudate Type Serosanguineous -Wound Margin Distinct, Outline Attached -Granulation Amt Medium (34-66%) -Granulation Quality Pale,[place] -Necrosis Amt Large (67-100%) -Necrotic Tissue Type Adherent Slough -Structure Exposed N/A -Texture (Mare-wound Skin Appearance) Assessed, Friable -Moisture (Mare-wound Skin Appearance) Assessed, Maceration -Color (Mare-wound Skin Appearance) Assessed,Palor -Temperature (Mare-wound Skin No Abnormality Appearance) (Pt Warm) -Tenderness on Palpation (Mare-wound No Skin Appearance) -Ulcer Cleansing Rinsed/ Irrigated with Saline -Foul Odor after Cleansing No -Anesthetic Used 5% Lidocaine Gel #1- L HEEL -Combined with other wound No -Current Size (cm) - Length 2.5 -Current Size (cm) - Width 3 -Current Size (cm) - Depth 0.1 -Total Square Cm 7.5 -Photo Taken No -Epithelialization None Present -Tunneling No -Undermining/Tunneling No -Circular Undermining No -Change in Wound Grade/Stage No -Exudate Amt None Present -Wound Margin Distinct, Outline Attached -Granulation Amt None Present (0 %) -Granulation Quality N/A -Necrosis Amt Small (1-33%) -Texture (Mare-wound Skin Appearance) Assessed,Callus -Moisture (Mare-wound Skin Appearance) Assessed,Dry/ Scaly -Color (Mare-wound Skin Appearance) No Abnormality -Tenderness on Palpation (Mare-wound No Skin Appearance) -Ulcer Cleansing Rinsed/ Irrigated with Saline -Foul Odor after Cleansing No -Anesthetic Used 4% Lidocaine Solution Lower Limb Edema Present No Left Calf (cm) 37 Left Ankle (cm) 27 WC - Nurse 2 - General Ulcer CM Notes Start: 01/01/22 07:05 Freq: Status: Active Protocol: Activity Type Activity Date Activity User E-Sign Co-Sign Detail Recorded Client Recorded Date Recorded By Document 01/08/22 16:06 VASILIY [id number] 01/08/22 16:23 VASILIY 01/08/22 16:06 Wound Center Nurse 2 #3 LEFT GREAT TOE -Time 16:07 -Correct Patient Yes -Correct Side, Site, Position Yes -Correct Procedure Yes -Procedure Performed Yes -Type of Procedure Debridement -Clinical Debridement Subcutaneous -Tissue Removed Subcutaneous -Post Debridement (cm) - Length 4.5 -Post Debridement (cm) - Width 3.0 -Post Debridement (cm) - Depth 0.2 -Total Square (Post) (cm) 13.50 -Area of Debridement (cm) - Length 4.5 -Area of Debridement (cm) - Width 3.0 -Total Square (Area) (cm) 13.50 -Tunneling No -Undermining/Tunneling No -Circular Undermining No -Wound/Ulcer Outcome Not Healed -Ulcer Cleansing Rinsed/ Irrigated with Saline -Foul Odor after Cleansing No -Bioengineered Tissue No -Bleeding Controlled with Pressure -Treatment Response Procedure Tolerated Well -Offloading Yes -Type of Offloading Surgical Shoe -Debridement - Subq, 1st 20sq cm Yes #2 LEFT ACHILLES -Time 16:07 -Correct Patient Yes -Correct Side, Site, Position Yes -Correct Procedure Yes -Procedure Performed Yes -Type of Procedure Debridement -Clinical Debridement Subcutaneous -Tissue Removed Subcutaneous -Post Debridement (cm) - Length 3.0 -Post Debridement (cm) - Width 0.7 -Post Debridement (cm) - Depth 0.1 -Total Square (Post) (cm) 2.10 -Area of Debridement (cm) - Length 1.5 -Area of Debridement (cm) - Width 0.3 -Total Square (Area) (cm) 0.45 -Tunneling No -Undermining/Tunneling No -Circular Undermining No -Wound/Ulcer Outcome Not Healed -Ulcer Cleansing Rinsed/ Irrigated with Saline -Foul Odor after Cleansing No -Bioengineered Tissue No -Type of Bioengineered Tissue PuraPly AM -Expiration Date 03/29/24 -Product Lot Number [id number] -Percent Used 100 -Lot number of Saline Used [id number] -Bleeding Controlled with Pressure -Treatment Response Procedure Tolerated Well -Offloading Yes -Type of Offloading Surgical Shoe -Debridement - Subq, 1st 20sq cm No -Apply Skin Sub - 1st 25 sq cm - Feet 1 -PuraPly AM (per sq cm) 4 #1- L HEEL -Correct Patient No -Correct Side, Site, Position No -Correct Procedure No -Procedure Performed No -Post Debridement (cm) - Length 0 -Post Debridement (cm) - Width 0 -Post Debridement (cm) - Depth 0 -Total Square (Post) (cm) 0 -Area of Debridement (cm) - Length 0 -Area of Debridement (cm) - Width 0 -Total Square (Area) (cm) 0 -Wound/Ulcer Outcome Healed- Epithelialized Pain Scale: 0-10 Numeric Is Patient Pain Free? Yes Assessment/Plan Assessment/Plan (1) Diabetic foot ulcer associated with type 2 diabetes mellitus: CODE(S): E11.621 - Type 2 diabetes mellitus with foot ulcer; L97.509 - Non-pressure chronic ulcer of other part of unspecified foot with unspecified severity QUALIFIERS: Diabetic foot ulcer location: heel Laterality: left Non-pressure ulcer stage: with fat layer exposed Qualified Code(s): E11.621 - Type 2 diabetes mellitus with foot ulcer; L97.422 - Non-pressure chronic ulcer of left heel and midfoot with fat layer exposed (2) Hypertension: CODE(S): I10 - Essential (primary) hypertension (3) Hypothyroidism: CODE(S): E03.9 - Hypothyroidism, unspecified (4) Debility: CODE(S): R53.81 - Other malaise (5) 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: CODE(S): L97.422 - Non-pressure chronic ulcer of left heel and midfoot with fat layer exposed (6) Non-pressure chronic ulcer of other part of left foot with fat layer exp osed: CODE(S): L97.522 - Non-pressure chronic ulcer of other part of left foot with fat layer exposed (7) Other specified peripheral vascular diseases: CODE(S): I73.89 - Other specified peripheral vascular diseases (8) Localized edema: CODE(S): R60.0 - Localized edema (9) Venous insufficiency (chronic) (peripheral): CODE(S): I87.2 - Venous insufficiency (chronic) (peripheral) PLAN: I reviewed her case verbally and via chart review; this was discussed. Debridement done as documented above, patient tolerated well. Aquacel extra to all wounds with the exception of the ulceration on the left Achilles/foot, Puraply AM #3 was applied to this and secured with stereos and wound veil, a 2 x 2 centimeter product was utilized and 100% was utilized with no wastage was advised to leave this product on for 1 week. Verbal consent was obtained and she tolerated this well. The indications and benefits were reviewed again today. At home wound-care instructions: See above. To wash with soap and water. Compression: Double layer Tubigrip's Off-loading: The patient was instructed to avoid pressure and friction on the affected areas. Reposition every 2 hours at minimum. Avoid prolonged standing and/or dangling of legs. When seated, feet should be elevated at chest level. Frequent ambulation is encouraged. Did instruct patient to utilize her offloading boot as much as possible and to bring with her to her next visit.I recommend offloading donut pillow or hang heel/achilles/foot over pillows while in bed resting. Diet: Patient encouraged to increase protein intake while taking caution to avoid high carbohydrate and/or sugar intake. She takes boost. I also recommend judy supplementation. She will take a food log so we can look at her nutrition intake. Patient is a non-smoker Labs/cultures/imaging: Patient tolerated only a couple days with the doxycycline due to her staph epidermidis, currently does not appear infected continue holding off on any further antibiotics. Routine baseline lab work ordered and reviewed with patient. Request prior imaging records including MRI and prior podiatry records. MRI was reviewed and was negative for osteomyelitis. Given her worsening wound size, x-ray ordered previously and showed chronic arthritic changes no concern for osteomyelitis. These were previously reviewed. Updated labs ordered. Due to delayed healing and edema, I recommend non invasive vascular studies (arterial) and venous doppler with reflux evaluation, respectively for work up of venous insufficiency. It is noted she reports she had a vascular test done several years ago. Follow-up: Return to clinic in 1 week for re-evaluation. Return sooner or rep ort to the emergency room should symptoms worsen, or new symptoms arise. This note was generated with [employer] dictation software. It may contain incorrect words, spelling, and punctuation that were not noted in checking the note before signing. I have spent 32 minutes today reviewing labs, records, and history. Time includes coordinating care, interpretation of tests, and counseling the patient/ family. This also includes time I spent with the patient for exam, treatment plan, and education as well as documenting clinical information in the electronic health record.
[2022-01-13 16:47] LABS: Absolute Lymphocyte Count 0.98 X10^3/uL (0.83-4.51); Absolute Neutrophil Count 7.7 X10^3/uL (2.0-7.7); Basophil# 0.03 X10^3/uL; Basophil% 0.3 % (0-1); Eosinophil# 0.06 X10^3/uL; Eosinophils% 0.6 % (0-5); Hematocrit 32.8 % (37-47); Hemoglobin 10.9 g/dL (12.0-15.0); Lymphocyte # 0.98 X10^3/ul (0.83-4.51); Lymphocyte % 10.3 % (19-41); Mean Corp Hgb Conc 33.2 g/dL (32-36); Mean Corpuscular Volume 90.4 fL (81-99); Mean Platelet Vol. 11.3 fl (6.2-12.0); Monocyte# 0.67 X10^3/uL; Monocyte% 7.1 % (0-10); NRBC Flagged by Analyzer 0 % (0-5); Neutrophil % 81.1 % (47-70); Platelet Count 240 K/mm3 (150-450); RBC Distribution Width CV 12.4 % (11.6-14.6); RBC Distribution Width SD 41.1 fl (35.1-43.9); Red Blood Count 3.63 M/mm3 (4.2-5.4); White Blood Count 9.5 K/mm3 (4.4-11.0)
[2022-01-13 16:48] LABS: Erythrocyte Sedimentation Rate 67 mm/hr (0-30)
--- NOTE | 2022-01-13 16:50 | RAD_ITS ---
STUDY: X-RAY - LEFT FOOT CLINICAL: Female, 71 years old. ULCER HALLUX TECHNIQUE: view(s) of the foot. COMPARISON: 11/12/2021 FINDINGS: Normal talus, calcaneus, and tarsal bones. Normal visualized subtalar, talonavicular, calcaneocuboid, tarsal and tarsometatarsal articulations. Normal metatarsi. There is foreshortening of the distal phalanx. There is osteophyte formation medially at the interphalangeal joint. Metatarsophalangeal joint of the great toe. Normal tibial and fibular sesamoid bones. Normal second through fifth metatarsophalangeal joints. There is absence of the distal phalanx of the fourth toe. Normal interphalangeal joints and phalanges of the lesser toes. There is marked soft tissue swelling. RAD/Foot min 3 Views IMPRESSION: There is marked soft tissue swelling. There is deformity of the great toe and the fourth toe. Electronically Signed: Migue Ureña MD at 23:34 EDT ,
[2022-01-13 17:09] LABS: ALB/GLOB Ratio 0.6 RATIO (0.9-2.4); AST(SGOT) 36 U/L (15-37); Alanine Aminotransfer ALT/SGPT 22 U/L (13-56); Albumin, Serum 2.4 g/dL (3.2-5.0); Alkaline Phosphatase 46 U/L (45-117); Anion Gap 6 (5-15); BUN 23 mg/dL (7-18); BUN/Creat Ratio 20.4 RATIO (10-20); Calcium,Total 8.7 mg/dL (8.5-10.1); Chloride 99 mmol/L (98-107); Creatinine, Serum 1.13 mg/dL (0.55-1.02); EST Glomerular Filtration Rate 50 mL/min (>60); Est Glom Filt Rate - Afr Amer 61 mL/min (>60); Globulin 4.1 g/dL (2.2-4.2); Glucose 142 mg/dL (74-106); Potassium 4.1 mmol/L (3.5-5.1); Protein, Total 6.5 g/dL (6.4-8.2); Sodium Level 132 mmol/L (136-145)
[2022-01-22 15:45] VITALS: BP 134/62; PULSE 77; TEMP 36.6; BMI 28.6
--- NOTE | 2022-01-22 16:46 | PCM.WC.PN ---
History of Present Illness Date of Service: 01/22/22 Chief Complaint: Diabetic foot ulcer left heel History of Wound: This is a 71-year-old white female who presents to the wound healing center today with complaint of diabetic foot ulcer to the left heel. She has a past medical history significant for type 2 diabetes mellitus (most recent A1c said to be 6), hypertension, hypothyroidism. The patient states that over the last 3 to 4 months she has had issues with a ulceration to her left heel. She states that her wound does seem to be improving, however is improving slowly to the heel. she tries to keep pressure off of this site. She denies any purulent drainage or any systemic signs of infection such as fever or chills. She denies any other aggravating relieving factors. She also had emergent surgery including left hallux amputation on 01-16-2022 in which her surgical dressing was kept intact. She has sutures in place. She continues on antibiotics per infectious disease recommendations that were made during her recent hospitalization Progress of Wound: stable heel noted surgical site is stable Objective Data Objective Data Vital Signs: Vital Signs Temp Pulse Resp BP 97.9 F 77 18 134/62 H 01/22/22 15:45 01/22/22 15:45 12/29/21 00:21 01/22/22 15:45 Weight: 78.018 kg Body Mass Index (BMI) 28.6 Lab / Micro Data Result Diagrams: 01/13/22 16:14 01/13/22 16:14 Physical Exam Const alert, oriented x3, no apparent distress, healthy appearing and well nourished HEENT normocephalic Extremity normal to inspection and full ROM General Extremity: normal exam except as noted Skin Skin Narrative: Wound present to left posterior heel/foot/at near insertion of achilles tendon area with adherent slough and there is no maceration noted this week. there is no purulence or erythema or warmth noted at this time. Chronic venous changes present bilateral lower extremities and dorsal pedis pulses 2+ the hallux amputation site is stable with sutures intact and no gapping. mild adjacent edema. no erythema, bogginess, fluctuance or streaking or odor noted. Neuro oriented x3 and moves all extremities Sensorium / Orientation: awake, alert, oriented to person, oriented to place and oriented to time Debridement Note Debridement Note Wound debrided: left foot/heel/achilles Wound Grade/Stage: 1 Type of Debridement: Excisional debridement Anesthesia Used: 4% Lidocaine Solution Depth: in the subcutaneous layer Percentage of wound debrided: 100 Instrument Used: #15 blade Tissue Removed: fibrous, devitalized subcutaneous, biofilm, slough Severity: Fat Layer Exposed Amount of bleeding with debridement: Mild Bleeding Controlled with: Pressure Patient tolerated procedure: Patient tolerated procedure well Post-Debridement Measurements and Additional Note: Post-Debridement Measurements/Treatment - Nurse 1 - General Ulcer Assessment Start: 01/01/22 07:05 Freq: Status: Active Protocol: MAYO Activity Type Activity Date Activity User E-Sign Co-Sign Detail Recorded Client Recorded Date Recorded By Document 01/08/22 15:46 CO [id number] 01/08/22 15:49 AK Document 01/22/22 15:45 CO [id number] 01/22/22 15:49 AK 01/08/22 01/22/22 15:46 15:45 - Today's Visit Information Type of service Follow-up Visit Follow-up Visit (Physician/BELT BUILDER HELPER (Physician/BELT BUILDER HELPER ) ) Arrival Mode Ambulatory Wheelchair Patient Identification Verified (Name & Yes Yes ) Patient Requires Transmission-Based No No Precautions Safety Precautions NA Height and Weight Body Mass Index (BMI) 28.6 28.6 BMI Classification Overweight Overweight Vital Signs Temperature (97.8 F-99.1 F) 97.2 F L 97.9 F Temperature Source Temporal Temporal Pulse Rate (60-100) 77 Pulse Location Monitor Blood Pressure (90/60-120/80) 134/62 H Blood Pressure Mean (mm Hg) 86 Source Monitor History Since Last Visit- (Skip if this is Patient's initial visit) Have you changed medications since your No No last visit? Any new allergies or adverse reactions No No Had a fall/change in ADL's that may No No increase risk of falls Signs or symptoms of abuse and/or No No neglect since last visit Have you been in the hospital since your No Yes last visit? Has dressing in place as prescribed Yes Yes Has compression in place as prescribed Yes Yes Has offloadiing in place as prescribed N/A N/A Experienced any changes in pain level or No No management Left Footwear Regular Shoe Regular Shoe Right Footwear Regular Shoe Surgical Shoe with pressure relief insole Pain Scale: 0-10 Numeric Is Patient Pain Free? Yes Yes - Nurse 1 - General Ulcer Measurement Start: 01/01/22 07:05 Freq: Status: Active Protocol: Activity Type Activity Date Activity User E-Sign Co-Sign Detail Recorded Client Recorded Date Recorded By Document 01/08/22 15:46 CO [id number] 01/08/22 15:49 AK Document 01/22/22 15:45 CO [id number] 01/22/22 15:49 AK 01/08/22 01/22/22 15:46 15:45 Wound Center Nurse 1 #3 LEFT GREAT TOE -Combined with other wound No No -Current Size (cm) - Length 2.5 -Current Size (cm) - Width 4 -Current Size (cm) - Depth 0.1 -Total Square Cm 10.0 -Photo Taken No -Epithelialization None Present -Tunneling No -Undermining/Tunneling No -Circular Undermining No -Exudate Amt Large -Exudate Type Serosanguineous -Wound Margin Distinct, Outline Attached -Granulation Amt Medium (34-66%) -Granulation Quality Pale,[place] -Necrosis Amt Large (67-100%) -Necrotic Tissue Type Adherent Slough -Structure Exposed N/A -Texture (Mare-wound Skin Appearance) Assessed, Friable -Moisture (Mare-wound Skin Appearance) Assessed, Maceration -Color (Mare-wound Skin Appearance) Assessed,Palor -Temperature (Mare-wound Skin No Abnormality Appearance) (Pt Warm) -Tenderness on Palpation (Mare-wound No Skin Appearance) -Ulcer Cleansing Rinsed/ Irrigated with Saline -Foul Odor after Cleansing No -Anesthetic Used 5% Lidocaine Gel #2 LEFT ACHILLES -Current Size (cm) - Length 0.1 -Current Size (cm) - Width 0.1 -Current Size (cm) - Depth 0.1 -Total Square Cm 0.01 -Photo Taken No -Tunneling No -Circular Undermining No -Change in Wound Grade/Stage No -Exudate Amt None Present -Granulation Amt None Present (0 %) -Granulation Quality N/A -Necrosis Amt None Present (0 %) -Structure Exposed N/A -Texture (Mare-wound Skin Appearance) No Abnormality, Assessed -Moisture (Mare-wound Skin Appearance) No Abnormality, Assessed -Color (Mare-wound Skin Appearance) No Abnormality, Assessed -Temperature (Mare-wound Skin No Abnormality Appearance) (Pt Warm) -Tenderness on Palpation (Mare-wound No Skin Appearance) -Ulcer Cleansing Rinsed/ Irrigated with Saline -Foul Odor after Cleansing No -Anesthetic Used 4% Lidocaine Solution #1- L HEEL -Combined with other wound No -Current Size (cm) - Length 2.5 -Current Size (cm) - Width 3 -Current Size (cm) - Depth 0.1 -Total Square Cm 7.5 -Photo Taken No -Epithelialization None Present -Tunneling No -Undermining/Tunneling No -Circular Undermining No -Change in Wound Grade/Stage No -Exudate Amt None Present -Wound Margin Distinct, Outline Attached -Granulation Amt None Present (0 %) -Granulation Quality N/A -Necrosis Amt Small (1-33%) -Texture (Mare-wound Skin Appearance) Assessed,Callus -Moisture (Mare-wound Skin Appearance) Assessed,Dry/ Scaly -Color (Mare-wound Skin Appearance) No Abnormality -Tenderness on Palpation (Mare-wound No Skin Appearance) -Ulcer Cleansing Rinsed/ Irrigated with Saline -Foul Odor after Cleansing No -Anesthetic Used 4% Lidocaine Solution Lower Limb Edema Present No Left Calf (cm) 37 Left Ankle (cm) 27 - Nurse 2 - General Ulcer CM Notes Start: 01/01/22 07:05 Freq: Status: Active Protocol: Activity Type Activity Date Activity User E-Sign Co-Sign Detail Recorded Client Recorded Date Recorded By Document 01/08/22 16:06 [id number] 01/08/22 16:23 Document 01/22/22 16:11 [id number] 01/22/22 16:20 01/08/22 01/22/22 16:06 16:11 Wound Center Nurse 2 #3 LEFT GREAT TOE -Time 16:07 -Correct Patient Yes No -Correct Side, Site, Position Yes No -Correct Procedure Yes No -Procedure Performed Yes No -Type of Procedure Debridement -Clinical Debridement Subcutaneous -Tissue Removed Subcutaneous -Post Debridement (cm) - Length 4.5 -Post Debridement (cm) - Width 3.0 -Post Debridement (cm) - Depth 0.2 -Total Square (Post) (cm) 13.50 -Area of Debridement (cm) - Length 4.5 -Area of Debridement (cm) - Width 3.0 -Total Square (Area) (cm) 13.50 -Tunneling No -Undermining/Tunneling No -Circular Undermining No -Wound/Ulcer Outcome Not Healed Amputation -Ulcer Cleansing Rinsed/ Irrigated with Saline -Foul Odor after Cleansing No -Bioengineered Tissue No -Bleeding Controlled with Pressure -Treatment Response Procedure Tolerated Well -Offloading Yes -Type of Offloading Surgical Shoe -Debridement - Subq, 1st 20sq cm Yes #2 LEFT ACHILLES -Time 16:07 16:11 -Correct Patient Yes Yes -Correct Side, Site, Position Yes Yes -Correct Procedure Yes Yes -Procedure Performed Yes Yes -Type of Procedure Debridement Debridement -Clinical Debridement Subcutaneous Subcutaneous -Tissue Removed Subcutaneous Subcutaneous -Post Debridement (cm) - Length 3.0 1.0 -Post Debridement (cm) - Width 0.7 1.2 -Post Debridement (cm) - Depth 0.1 0.1 -Total Square (Post) (cm) 2.10 1.20 -Area of Debridement (cm) - Length 1.5 1.0 -Area of Debridement (cm) - Width 0.3 1.2 -Total Square (Area) (cm) 0.45 1.20 -Tunneling No No -Undermining/Tunneling No No -Circular Undermining No No -Wound/Ulcer Outcome Not Healed Not Healed -Ulcer Cleansing Rinsed/ Rinsed/ Irrigated with Irrigated with Saline Saline -Foul Odor after Cleansing No No -Bioengineered Tissue No Yes -Type of Bioengineered Tissue PuraPly AM PuraPly AM -Expiration Date 03/29/24 03/29/24 -Product Lot Number [id number] -Percent Used 100 100 -Lot number of Saline Used [id number] -Bleeding Controlled with Pressure Pressure -Treatment Response Procedure Procedure Tolerated Well Tolerated Well -Offloading Yes No -Type of Offloading Surgical Shoe -Assistive Device(s) Wheelchair -Debridement - Subq, 1st 20sq cm No No -Apply Skin Sub - 1st 25 sq cm - Feet 1 1 -PuraPly AM (per sq cm) 4 4 #1- L HEEL -Correct Patient No -Correct Side, Site, Position No -Correct Procedure No -Procedure Performed No -Post Debridement (cm) - Length 0 -Post Debridement (cm) - Width 0 -Post Debridement (cm) - Depth 0 -Total Square (Post) (cm) 0 -Area of Debridement (cm) - Length 0 -Area of Debridement (cm) - Width 0 -Total Square (Area) (cm) 0 -Wound/Ulcer Outcome Healed- Epithelialized Pain Scale: 0-10 Numeric Is Patient Pain Free? Yes Yes - Nurse 3 - General Ulcer D/C NN Start: 01/01/22 07:05 Freq: Status: Active Protocol: Activity Type Activity Date Activity User E-Sign Co-Sign Detail Recorded Client Recorded Date Recorded By Document 01/08/22 16:38 DL [id number] 01/08/22 16:39 DL Document 01/22/22 16:25 DL [id number] 01/22/22 16:28 DL 01/08/22 01/22/22 16:38 16:25 Wound Care Nurse 3 #3 LEFT GREAT TOE -Ulcer Cleansing Rinsed/ Irrigated with Saline -Foul Odor after Cleansing No -Other Dressing moist gauze in clinic -Primary Dressing Covered/Secured with Dry Gauze, Secured with Tape #2 LEFT ACHILLES -Foul Odor after Cleansing No No -Other Dressing PuraPly Puraply -Primary Dressing Covered/Secured with Dry Gauze & Dry Gauze & Roll Gauze, Roll Gauze, Secured with Secured with Tape Tape Treatment Response Procedure Procedure Tolerated Well Tolerated Well Pain Scale: 0-10 Numeric Is Patient Pain Free? Yes Yes - Visit Discharge Discharge Condition Stable Stable Ambulatory Status Ambulatory Ambulatory Transportation Private Auto Medication Reconcilliation completed & No provided to patient/care provider Notes: L Hallux amp site, gauze/ Roll gauze. Assessment/Plan Assessment/Plan (1) Diabetic foot ulcer associated with type 2 diabetes mellitus: CODE(S): E11.621 - Type 2 diabetes mellitus with foot ulcer; L97.509 - Non-pressure chronic ulcer of other part of unspecified foot with unspecified severity QUALIFIERS: Diabetic foot ulcer location: heel Laterality: left Non-pressure ulcer stage: with fat layer exposed Qualified Code(s): E11.621 - Type 2 diabetes mellitus with foot ulcer; L97.422 - Non-pressure chronic ulcer of left heel and midfoot with fat layer exposed (2) Debility: CODE(S): R53.81 - Other malaise (3) 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: CODE(S): L97.422 - Non-pressure chronic ulcer of left heel and midfoot with fat layer exposed (4) Other specified peripheral vascular diseases: CODE(S): I73.89 - Other specified peripheral vascular diseases (5) Localized edema: CODE(S): R60.0 - Localized edema (6) Venous insufficiency (chronic) (peripheral): CODE(S): I87.2 - Venous insufficiency (chronic) (peripheral) (7) Gangrene of toe of left foot: CODE(S): I96 - Gangrene, not elsewhere classified (8) Osteomyelitis: CODE(S): M86.9 - Osteomyelitis, unspecified PLAN: I reviewed her case verbally and via chart review; this was discussed. Debridement done as documented above, patient tolerated well. Benefits of advanced wound healing product was reviewed. Puraply was applied to this and secured with steri strips according to standard protocol and wound veil was also applied, a 2 x 2 centimeter product was utilized and 100% was utilized with no waste was noted. She was advised to leave this product on for 1 week. Verbal consent was obtained and she tolerated this well. The indications and benefits were reviewed again today. Dry gauze was applied to surgical site. to keep intact this week also. Compression: Double layer Tubigrip's Off-loading: The patient was instructed to avoid pressure and friction on the affected areas. Reposition every 2 hours at minimum. Avoid prolonged standing and/or dangling of legs. When seated, feet should be elevated at chest level. Frequent ambulation is encouraged. Did instruct patient to utilize her offloading boot as much as possible and to bring with her to her next visit.I recommend offloading donut pillow or hang heel/achilles/foot over pillows while in bed resting. Diet: Patient encouraged to increase protein intake while taking caution to avoid high carbohydrate and/or sugar intake. She takes boost. I also recommend judy supplementation. She will take a food log so we can look at her nutrition intake. Patient is a non-smoker Labs/cultures/imaging: reviewed Due to delayed healing and edema, I recommend non invasive vascular studies (arterial) and venous doppler with reflux evaluation, respectively for work up of venous insufficiency. It is noted she reports she had a vascular test done several years ago. This was updated during hospital admission and no occlusions are suspected. Small vessel disease was noted on contralateral limb at toe level and this was not checked on surgical foot due to infection and surgery. If lack of healing is noted, a vascular referral will be considered. Infection: Now s/p toe amp 01/16/22. Wound cx with CoNS x2 previously. Wound cx here with MSSA and GPR. Bcx neg. Pathology clearance fragment neg for acute osteo but the microbiology clearance cx (+). Discussed options for iv vs po abx with her. With some source control now, ok for home with 6 weeks po doxy and augmentin. ID followup in [address] Ruiz. Follow-up: Return to clinic in 1 week for re-evaluation. Return sooner or report to the emergency room should symptoms worsen, or new symptoms arise. This note was generated with [employer] dictation software. It may contain incorrect words, spelling, and punctuation that were not noted in checking the note before signing. The medical decision making level is limited based on data including the review of prior external notes, review of a prior test, or ordering a test. 20 minutes was spent on this encounter. This included face to face and non face to face care including preparing for the visit, reviewing the history, performing the exam, counseling and providing education to the patient, family, or caregiver, ordering medications/test/ procedures if indicated as documented, communicating with other healthcare providers, documenting information in the medical record, interpreting / sharing this information when indicated as documented, and care coordination.
== END 2022-01-28 23:59 | disposition home or self-care (01) ==
LOC: WC 15:30
PROVIDERS: PCP Family Medicine; Visit Provider Nurse Practitioner Family
DX: E11.621 Type 2 diabetes mellitus with foot ulcer (principal); E11.51 Type 2 diabetes mellitus with diabetic peripheral angiopathy without gangrene; L97.522 Non-pressure chronic ulcer of other part of left foot with fat layer exposed; L97.422 Non-pressure chronic ulcer of left heel and midfoot with fat layer exposed; R60.0 Localized edema; I87.2 Venous insufficiency (chronic) (peripheral); I10 Essential (primary) hypertension
CPT/HCPCS: 11042; 15275; 36415; 73630; 80053; 85025; 85652; 86140; 99213; Q4196; G0463

== ENCOUNTER → 2022-02-25 13:00 | Outpatient (RCR) | payer MEDICARE, SELFPAY ==
[2022-01-29 00:35] VITALS: BP 134/62; PULSE 77; RESP 18; TEMP 36.6; BMI 28.6
[2022-01-29 15:13] VITALS: BP 135/63; PULSE 85; RESP 20; TEMP 36.7; BMI 28.6
--- NOTE | 2022-01-29 16:56 | PN.PCM_ITS ---
History of Present Illness Date of Service: 01/29/22 Chief Complaint: Diabetic foot ulcer left heel History of Wound: This is a 71-year-old white female who presents to the wound healing center today with complaint of diabetic foot ulcer to the left heel. She has a past medical history significant for type 2 diabetes mellitus (most recent A1c said to be 6), hypertension, hypothyroidism. The patient states that over the last 3 to 4 months she has had issues with a ulceration to her left heel. She states that her wound does seem to be improving, however is improving slowly to the heel. she tries to keep pressure off of this site. She denies any purulent drainage or any systemic signs of infection such as fever or chills. She denies any other aggravating relieving factors. She also had emergent surgery including left hallux amputation on 01-16-2022 in which her surgical dressing was kept intact. She has sutures in place. She continues on antibiotics per infectious disease recommendations that were made during her recent hospitalization. Progress of Wound: improving heal stable amputation site Objective Data Objective Data Vital Signs: Vital Signs Temp Pulse Resp BP 98.1 F 85 20 H 135/63 H 01/29/22 15:13 01/29/22 15:13 01/29/22 15:13 01/29/22 15:13 Weight: 78.018 kg Body Mass Index (BMI) 28.6 Physical Exam Const alert, oriented x3, no apparent distress, healthy appearing and well nourished HEENT normocephalic Extremity normal to inspection and full ROM General Extremity: normal exam except as noted Skin Skin Narrative: Wound present to left posterior heel/foot/at near insertion of achilles tendon area with adherent slough and there is no maceration noted this week. there is no purulence or erythema or warmth noted at this time. progressive epithelialization is noted. Chronic venous changes present bilateral lower extremities and dorsal pedis pulses 2+ the hallux amputation site is stable with sutures intact and no gapping. mild adjacent edema. no erythema, bogginess, fluctuance or streaking or odor noted. Neuro oriented x3 and moves all extremities Sensorium / Orientation: awake, alert, oriented to person, oriented to place and oriented to time Debridement Note Debridement Note Wound debrided: left heel/foot/near achilles site Wound Grade/Stage: 1 Type of Debridement: Excisional debridement Anesthesia Used: 4% Lidocaine Solution Depth: in the subcutaneous layer Percentage of wound debrided: 100 Instrument Used: #15 blade Tissue Removed: fibrous, devitalized subcutaneous, biofilm, slough Severity: Fat Layer Exposed Amount of bleeding with debridement: Mild Bleeding Controlled with: Pressure Patient tolerated procedure: Patient tolerated procedure well Post-Debridement Measurements and Additional Note: Post-Debridement Measurements/Treatment PALAK - Nurse 1 - General Ulcer Assessment Start: 01/29/22 15:12 Freq: Status: Active Protocol: MAYO Activity Type Activity Date Activity User E-Sign Co-Sign Detail Recorded Client Recorded Date Recorded By Document 01/29/22 15:13 DL [id number] 01/29/22 15:24 DL 01/29/22 15:13 WC - Today's Visit Information Type of service Follow-up Visit (Physician/[employer]BE[employer] SURVEYOR ) Arrival Mode Wheelchair Transfer Assistance Manual Transfer Assist (Other) x1 Patient Identification Verified (Name & Yes ) Finger Stick Blood Sugar(mg/dl) (if 117 indicated): Blood Sugar Stated by Patient Height and Weight Body Mass Index (BMI) 28.6 BMI Classification Overweight Vital Signs Temperature (97.8 F-99.1 F) 98.1 F Temperature Source Temporal Pulse Rate (60-100) 85 Pulse Location Monitor Respiratory Rate (12-18) 20 H Respiratory rate source Observation Blood Pressure (90/60-120/80) 135/63 H Blood Pressure Mean (mm Hg) 87 Source Monitor History Since Last Visit- (Skip if this is Patient's initial visit) Have you changed medications since your No last visit? Any new allergies or adverse reactions No Had a fall/change in ADL's that may No increase risk of falls Signs or symptoms of abuse and/or No neglect since last visit Have you been in the hospital since your No last visit? Has dressing in place as prescribed Yes Has compression in place as prescribed Yes Experienced any changes in pain level or No management Pain Scale: 0-10 Numeric Is Patient Pain Free? Yes Lidia Nurse 1 - General Ulcer Measurement Start: 01/29/22 15:12 Freq: Status: Active Protocol: Activity Type Activity Date Activity User E-Sign Co-Sign Detail Recorded Client Recorded Date Recorded By Document 01/29/22 15:13 DL [id number] 01/29/22 15:24 DL 01/29/22 15:13 Wound Center Nurse 1 #3 LEFT GREAT TOE -Current Size (cm) - Length 0.1 -Current Size (cm) - Width 0.1 -Current Size (cm) - Depth 0.1 -Total Square Cm 0.01 -Photo Taken No -Exudate Amt None Present -Wound Margin Indistinct, Non -Visible -Granulation Amt None Present (0 %) -Granulation Quality [place] -Necrosis Amt None Present (0 %) -Structure Exposed N/A -Texture (Mare-wound Skin Appearance) Scarring -Moisture (Mare-wound Skin Appearance) No Abnormality -Color (Mare-wound Skin Appearance) No Abnormality -Temperature (Mare-wound Skin No Abnormality Appearance) (Pt Warm) -Tenderness on Palpation (Mare-wound No Skin Appearance) -Ulcer Cleansing Soap and Water -Foul Odor after Cleansing No #2 LEFT ACHILLES -Current Size (cm) - Length 2 -Current Size (cm) - Width 2 -Current Size (cm) - Depth 0.1 -Total Square Cm 4 -Photo Taken No -Exudate Amt None Present -Wound Margin Thickened -Granulation Amt None Present (0 %) -Necrosis Amt Large (67-100%) -Necrotic Tissue Type Eschar -Structure Exposed N/A -Texture (Mare-wound Skin Appearance) Scarring -Moisture (Mare-wound Skin Appearance) Dry/Scaly -Color (Mrae-wound Skin Appearance) No Abnormality -Temperature (Mare-wound Skin No Abnormality Appearance) (Pt Warm) -Tenderness on Palpation (Mare-wound No Skin Appearance) -Ulcer Cleansing Soap and Water -Foul Odor after Cleansing No -Anesthetic Used 4% Lidocaine Solution WC - Nurse 2 - General Ulcer CM Notes Start: 01/29/22 15:12 Freq: Status: Active Protocol: Activity Type Activity Date Activity User E-Sign Co-Sign Detail Recorded Client Recorded Date Recorded By Document 01/29/22 15:36 [id number] 01/29/22 15:44 Document 01/29/22 15:48 [id number] 01/29/22 15:49 01/29/22 01/29/22 15:36 15:48 Wound Center Nurse 2 #3 LEFT GREAT TOE -Time 15:40 -Correct Patient No No -Correct Side, Site, Position No No -Correct Procedure No No -Procedure Performed No No -Post Debridement (cm) - Width 0 -Post Debridement (cm) - Depth 0 -Area of Debridement (cm) - Length 0 -Area of Debridement (cm) - Width 0 -Total Square (Area) (cm) 0 -Undermining/Tunneling No -Circular Undermining No -Wound/Ulcer Outcome Not Healed Amputation -Ulcer Cleansing Rinsed/ Irrigated with Saline -Foul Odor after Cleansing No -Bioengineered Tissue No -Offloading No -Assistive Device(s) Wheelchair -Debridement - Subq, 1st 20sq cm No -PuraPly AM 16mm Disc (per sq cm) 2 #2 LEFT ACHILLES -Time 15:42 -Correct Patient Yes -Correct Side, Site, Position Yes -Correct Procedure Yes -Procedure Performed Yes -Type of Procedure Debridement -Clinical Debridement Subcutaneous -Tissue Removed Subcutaneous -Post Debridement (cm) - Length 0.5 -Post Debridement (cm) - Width 0.6 -Post Debridement (cm) - Depth 0.1 -Total Square (Post) (cm) 0.30 -Area of Debridement (cm) - Length 0.5 -Area of Debridement (cm) - Width 0.6 -Total Square (Area) (cm) 0.30 -Tunneling No -Undermining/Tunneling No -Circular Undermining No -Wound/Ulcer Outcome Not Healed -Ulcer Cleansing Rinsed/ Irrigated with Saline -Foul Odor after Cleansing No -Bioengineered Tissue Yes -Type of Bioengineered Tissue PuraPly AM Disc -Expiration Date 05/13/26 -Product Lot Number [id number] -Percent Used 100 -Lot number of Saline Used [id number] -Bleeding Controlled with Pressure -Treatment Response Procedure Tolerated Well -Offloading No -Assistive Device(s) Wheelchair -Debridement - Subq, 1st 20sq cm No -Apply Skin Sub - 1st 25 sq cm - Feet 1 -PuraPly AM 16mm Disc (per sq cm) 2 Pain Scale: 0-10 Numeric Is Patient Pain Free? Yes Yes WC - Nurse 3 - General Ulcer D/C NN Start: 01/29/22 15:12 Freq: Status: Active Protocol: Activity Type Activity Date Activity User E-Sign Co-Sign Detail Recorded Client Recorded Date Recorded By Document 01/29/22 15:47 [place] [id number] 01/29/22 15:48 [place] 01/29/22 15:47 Wound Care Nurse 3 #3 LEFT GREAT TOE -Ulcer Cleansing Rinsed/ Irrigated with Saline -Foul Odor after Cleansing No -Negative Pressure Wound Therapy N/A -Primary Dressing Covered/Secured with Dry Gauze & Roll Gauze, Secured with Tape #2 LEFT ACHILLES -Primary Dressing Covered/Secured with Dry Gauze & Roll Gauze, Secured with Tape Pain Scale: 0-10 Numeric Is Patient Pain Free? Yes WC - Visit Discharge Discharge Condition Stable Ambulatory Status Wheelchair Transportation Private Auto Accompanied by son Medication Reconcilliation completed & Yes provided to patient/care provider Clinical Summary of Care Provided Yes Assessment/Plan Assessment/Plan (1) Diabetic foot ulcer associated with type 2 diabetes mellitus: CODE(S): E11.621 - Type 2 diabetes mellitus with foot ulcer; L97.509 - Non-pressure chronic ulcer of other part of unspecified foot with unspecified severity QUALIFIERS: Diabetic foot ulcer location: heel Laterality: left Non-pressure ulcer stage: with fat layer exposed Qualified Code(s): E11.621 - Type 2 diabetes mellitus with foot ulcer; L97.422 - Non-pressure chronic ulcer of left heel and midfoot with fat layer exposed (2) Debility: CODE(S): R53.81 - Other malaise (3) 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: CODE(S): L97.422 - Non-pressure chronic ulcer of left heel and midfoot with fat layer exposed (4) Other specified peripheral vascular diseases: CODE(S): I73.89 - Other specified peripheral vascular diseases (5) Localized edema: CODE(S): R60.0 - Localized edema (6) Venous insufficiency (chronic) (peripheral): CODE(S): I87.2 - Venous insufficiency (chronic) (peripheral) (7) Gangrene of toe of left foot: CODE(S): I96 - Gangrene, not elsewhere classified (8) Osteomyelitis: CODE(S): M86.9 - Osteomyelitis, unspecified PLAN: I reviewed her case verbally and via chart review; this was discussed. Debridement done as documented above, patient tolerated well. Benefits of advanced wound healing product was reviewed. Puraply was applied to this and secured with steri strips according to standard protocol and wound veil was also applied, a 18 mm disc product was utilized and 100% was utilized with no waste was noted. She was advised to leave this product on for 1 week. Verbal consent was obtained and she tolerated this well. The indications and benefits were reviewed again today. Dry gauze was applied to surgical site. to keep intact this week also. Suture (partial vs full) will be considered next week. Compression: Double layer Tubigrip's Off-loading: The patient was instructed to avoid pressure and friction on the affected areas. Reposition every 2 hours at minimum. Avoid prolonged standing and/or dangling of legs. When seated, feet should be elevated at chest level. Frequent ambulation is encouraged. Did instruct patient to utilize her offloading boot as much as possible and to bring with her to her next visit.I recommend offloading donut pillow or hang heel/achilles/foot over pillows while in bed resting. Diet: Patient encouraged to increase protein intake while taking caution to avoid high carbohydrate and/or sugar intake. She takes boost. I also recommend judy supplementation. She will take a food log so we can look at her nutrition intake. Patient is a non-smoker Labs/cultures/imaging: reviewed Due to delayed healing and edema, I recommend non invasive vascular studies (arterial) and venous doppler with reflux evaluation, respectively for work up of venous insufficiency. It is noted she reports she had a vascular test done several years ago. This was updated during hospital admission and no occlusions are suspected. Small vessel disease was noted on contralateral limb at toe level and this was not checked on surgical foot due to infection and surgery. If lack of healing is noted, a vascular referral will be considered. Infection: Now s/p toe amp 01/16/22. Wound cx with CoNS x2 previously. Wound cx here with MSSA and GPR. Bcx neg. Pathology clearance fragment neg for acute osteo but the microbiology clearance cx (+). Discussed options for iv vs po abx with her. With some source control now, ok for home with 6 weeks po doxy and augmentin. ID followup as scheduled with Dr. Ruiz. Follow-up: Return to clinic in 1 week for re-evaluation. Return sooner or report to the emergency room should symptoms worsen, or new symptoms arise. This note was generated with [employer] software. It may contain incorrect words, spelling, and punctuation that were not noted in checking the note before signing.
[2022-02-05 15:55] VITALS: BP 159/75; PULSE 92; TEMP 36.8; BMI 28.6
--- NOTE | 2022-02-05 16:35 | PCM.WC.PN ---
History of Present Illness Date of Service: 02/05/22 Chief Complaint: Diabetic foot ulcer left heel History of Wound: This is a 71-year-old white female who presents to the wound healing center today with complaint of diabetic foot ulcer to the left heel. She has a past medical history significant for type 2 diabetes mellitus (most recent A1c said to be 6), hypertension, hypothyroidism. The patient states that over the last 3 to 4 months she has had issues with a ulceration to her left heel. She states that her wound does seem to be improving, however is improving slowly to the heel. she tries to keep pressure off of this site. She denies any purulent drainage or any systemic signs of infection such as fever or chills. She denies any other aggravating relieving factors. She also had emergent surgery including left hallux amputation on 01-16-2022 in which her surgical dressing was kept intact. She has sutures in place. She continues on antibiotics per infectious disease recommendations that were made during her recent hospitalization. Progress of Wound: both sites healed Objective Data Objective Data Vital Signs: Vital Signs Temp Pulse Resp BP 98.2 F 92 20 H 159/75 H 02/05/22 15:55 02/05/22 15:55 01/29/22 15:13 02/05/22 15:55 Weight: 78.018 kg Body Mass Index (BMI) 28.6 Physical Exam Const alert, oriented x3, no apparent distress, healthy appearing and well nourished HEENT normocephalic Extremity normal to inspection and full ROM General Extremity: normal exam except as noted Skin Skin Narrative: Wound present to left posterior heel/foot/at near insertion of achilles tendon area has healed with full epithelialization noted. there is no purulence or erythema or warmth noted at this time. progressive epithelialization is noted. Chronic venous changes present bilateral lower extremities and dorsal pedis pulses 2+ the hallux amputation site is stable with sutures intact and no gapping noted upon removal; this site is also healed in full. resolved adjacent edema. no erythema, bogginess, fluctuance or streaking or odor noted. Neuro oriented x3 and moves all extremities Sensorium / Orientation: awake, alert, oriented to person, oriented to place and oriented to time Debridement Note Debridement Note Post-Debridement Measurements and Additional Note: Post-Debridement Measurements/Treatment WC - Nurse 1 - General Ulcer Assessment Start: 01/29/22 15:12 Freq: Status: Active Protocol: MAYO Activity Type Activity Date Activity User E-Sign Co-Sign Detail Recorded Client Recorded Date Recorded By Document 01/29/22 15:13 DL [id number] 01/29/22 15:24 DL Document 02/05/22 15:55 [place] [id number] 02/05/22 15:56 [place] 01/29/22 02/05/22 15:13 15:55 - Today's Visit Information Type of service Follow-up Visit Follow-up Visit (Physician/ELECTRIC ARC FURNACE OPERATOR (Physician/ELECTRIC ARC FURNACE OPERATOR ) ) Arrival Mode Wheelchair Wheelchair Transfer Assistance Manual Transfer Assist (Other) x1 Patient Identification Verified (Name & Yes Yes ) Patient Requires Transmission-Based No Precautions Finger Stick Blood Sugar(mg/dl) (if 117 indicated): Blood Sugar Stated by Patient Height and Weight Body Mass Index (BMI) 28.6 28.6 BMI Classification Overweight Overweight Vital Signs Temperature (97.8 F-99.1 F) 98.1 F 98.2 F Temperature Source Temporal Temporal Pulse Rate (60-100) 85 92 Pulse Location Monitor Monitor Respiratory Rate (12-18) 20 H Respiratory rate source Observation Blood Pressure (90/60-120/80) 135/63 H 159/75 H Blood Pressure Mean (mm Hg) 87 103 Source Monitor Monitor History Since Last Visit- (Skip if this is Patient's initial visit) Have you changed medications since your No No last visit? Any new allergies or adverse reactions No No Had a fall/change in ADL's that may No No increase risk of falls Signs or symptoms of abuse and/or No No neglect since last visit Have you been in the hospital since your No No last visit? Has dressing in place as prescribed Yes Yes Has compression in place as prescribed Yes Yes Experienced any changes in pain level or No No management Left Footwear Surgical Shoe with pressure relief insole Right Footwear Surgical Shoe with pressure relief insole Pain Scale: 0-10 Numeric Is Patient Pain Free? Yes Yes - Nurse 1 - General Ulcer Measurement Start: 01/29/22 15:12 Freq: Status: Active Protocol: Activity Type Activity Date Activity User E-Sign Co-Sign Detail Recorded Client Recorded Date Recorded By Document 01/29/22 15:13 [id number] 01/29/22 15:24 DL 01/29/22 15:13 Wound Center Nurse 1 #3 LEFT GREAT TOE -Current Size (cm) - Length 0.1 -Current Size (cm) - Width 0.1 -Current Size (cm) - Depth 0.1 -Total Square Cm 0.01 -Photo Taken No -Exudate Amt None Present -Wound Margin Indistinct, Non -Visible -Granulation Amt None Present (0 %) -Granulation Quality [employer] -Necrosis Amt None Present (0 %) -Structure Exposed N/A -Texture (Mare-wound Skin Appearance) Scarring -Moisture (Mare-wound Skin Appearance) No Abnormality -Color (Mare-wound Skin Appearance) No Abnormality -Temperature (Mare-wound Skin No Abnormality Appearance) (Pt Warm) -Tenderness on Palpation (Mare-wound No Skin Appearance) -Ulcer Cleansing Soap and Water -Foul Odor after Cleansing No #2 LEFT ACHILLES -Current Size (cm) - Length 2 -Current Size (cm) - Width 2 -Current Size (cm) - Depth 0.1 -Total Square Cm 4 -Photo Taken No -Exudate Amt None Present -Wound Margin Thickened -Granulation Amt None Present (0 %) -Necrosis Amt Large (67-100%) -Necrotic Tissue Type Eschar -Structure Exposed N/A -Texture (Mare-wound Skin Appearance) Scarring -Moisture (Mare-wound Skin Appearance) Dry/Scaly -Color (Mare-wound Skin Appearance) No Abnormality -Temperature (Mare-wound Skin No Abnormality Appearance) (Pt Warm) -Tenderness on Palpation (Mare-wound No Skin Appearance) -Ulcer Cleansing Soap and Water -Foul Odor after Cleansing No -Anesthetic Used 4% Lidocaine Solution WC - Nurse 2 - General Ulcer CM Notes Start: 01/29/22 15:12 Freq: Status: Active Protocol: Activity Type Activity Date Activity User E-Sign Co-Sign Detail Recorded Client Recorded Date Recorded By Document 01/29/22 15:36 VASILIY [id number] 01/29/22 15:44 JF Edit Result 01/29/22 15:36 VASILIY (1) [id number] 01/30/22 06:52 PL Document 01/29/22 15:48 JF [id number] 01/29/22 15:49 JF Document 02/05/22 15:47 VASILIY [id number] 02/05/22 15:50 JF (1) #3 LEFT GREAT TOE - PuraPly AM 16mm Disc (per sq cm) 2 => 01/29/22 01/29/22 02/05/22 15:36 15:48 15:47 Wound Center Nurse 2 #3 LEFT GREAT TOE -Time 15:40 -Correct Patient No No -Correct Side, Site, Position No No -Correct Procedure No No -Procedure Performed No No -Post Debridement (cm) - Width 0 -Post Debridement (cm) - Depth 0 -Area of Debridement (cm) - Length 0 -Area of Debridement (cm) - Width 0 -Total Square (Area) (cm) 0 -Undermining/Tunneling No -Circular Undermining No -Wound/Ulcer Outcome Not Healed Amputation -Ulcer Cleansing Rinsed/ Irrigated with Saline -Foul Odor after Cleansing No -Bioengineered Tissue No -Offloading No -Assistive Device(s) Wheelchair -Debridement - Subq, 1st 20sq cm No #2 LEFT ACHILLES -Time 15:42 15:47 -Correct Patient Yes No -Correct Side, Site, Position Yes No -Correct Procedure Yes No -Procedure Performed Yes No -Type of Procedure Debridement -Clinical Debridement Subcutaneous -Tissue Removed Subcutaneous -Post Debridement (cm) - Length 0.5 0 -Post Debridement (cm) - Width 0.6 0 -Post Debridement (cm) - Depth 0.1 0 -Total Square (Post) (cm) 0.30 0 -Area of Debridement (cm) - Length 0.5 0 -Area of Debridement (cm) - Width 0.6 0 -Total Square (Area) (cm) 0.30 0 -Tunneling No No -Undermining/Tunneling No No -Circular Undermining No No -Wound/Ulcer Outcome Not Healed Healed- Epithelialized -Ulcer Cleansing Rinsed/ Rinsed/ Irrigated with Irrigated with Saline Saline -Foul Odor after Cleansing No No -Bioengineered Tissue Yes No -Type of Bioengineered Tissue PuraPly AM Disc -Expiration Date 05/13/26 -Product Lot Number [id number] -Percent Used 100 -Lot number of Saline Used [id number] -Bleeding Controlled with Pressure -Treatment Response Procedure Tolerated Well -Offloading No -Assistive Device(s) Wheelchair -Debridement - Subq, 1st 20sq cm No -Apply Skin Sub - 1st 25 sq cm - Feet 1 -PuraPly AM 16mm Disc (per sq cm) 2 Pain Scale: 0-10 Numeric Is Patient Pain Free? Yes Yes Yes - Nurse 3 - General Ulcer D/C NN Start: 01/29/22 15:12 Freq: Status: Active Protocol: Activity Type Activity Date Activity User E-Sign Co-Sign Detail Recorded Client Recorded Date Recorded By Document 01/29/22 15:47 AK [id number] 01/29/22 15:48 AK Document 02/05/22 16:11 RB [id number] 02/05/22 16:12 RB 01/29/22 02/05/22 15:47 16:11 Wound Care Nurse 3 #3 LEFT GREAT TOE -Ulcer Cleansing Rinsed/ Irrigated with Saline -Foul Odor after Cleansing No -Negative Pressure Wound Therapy N/A -Primary Dressing Covered/Secured with Dry Gauze & Dry Gauze,Dry Roll Gauze, Gauze & Roll Secured with Gauze,Secured Tape with Tape #2 LEFT ACHILLES -Primary Dressing Covered/Secured with Dry Gauze & Roll Gauze, Secured with Tape #1- L HEEL -Primary Dressing Covered/Secured with Dry Gauze,Dry Gauze & Roll Gauze,Secured with Tape Left -Tubular Bandage Double Layer -Size of Tubigrip Used Size E -Size E ($) 2 Treatment Response Procedure Tolerated Well Pain Scale: 0-10 Numeric Is Patient Pain Free? Yes Yes - Visit Discharge Discharge Condition Stable Stable Ambulatory Status Wheelchair Ambulatory Transportation Private Auto Private Auto Accompanied by son Medication Reconcilliation completed & Yes No provided to patient/care provider Clinical Summary of Care Provided Yes Yes Assessment/Plan Assessment/Plan (1) Diabetic foot ulcer associated with type 2 diabetes mellitus: CODE(S): E11.621 - Type 2 diabetes mellitus with foot ulcer; L97.509 - Non-pressure chronic ulcer of other part of unspecified foot with unspecified severity QUALIFIERS: Diabetic foot ulcer location: heel Laterality: left Non-pressure ulcer stage: with fat layer exposed Qualified Code(s): E11.621 - Type 2 diabetes mellitus with foot ulcer; L97.422 - Non-pressure chronic ulcer of left heel and midfoot with fat layer exposed (2) Debility: CODE(S): R53.81 - Other malaise (3) 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: CODE(S): L97.422 - Non-pressure chronic ulcer of left heel and midfoot with fat layer exposed (4) Other specified peripheral vascular diseases: CODE(S): I73.89 - Other specified peripheral vascular diseases (5) Localized edema: CODE(S): R60.0 - Localized edema (6) Venous insufficiency (chronic) (peripheral): CODE(S): I87.2 - Venous insufficiency (chronic) (peripheral) (7) Gangrene of toe of left foot: CODE(S): I96 - Gangrene, not elsewhere classified (8) Osteomyelitis: CODE(S): M86.9 - Osteomyelitis, unspecified PLAN: I reviewed her case verbally and via chart review; this was discussed. Debridement was note performed because the ulcer site and surgical sites have healed. d/c dressings. Compression: Double layer Tubigrip's Off-loading: The patient was instructed to avoid pressure and friction on the affected areas for an additional couple weeks to allow skin remodeling and to reduce change of reoccurence. Infection: Now s/p toe amp 01/16/22. Wound cx with CoNS x2 previously. Wound cx here with MSSA and GPR. Bcx neg. Pathology clearance fragment neg for acute osteo but the microbiology clearance cx (+). Discussed options for iv vs po abx with her. With some source control now, ok for home with 6 weeks po doxy and augmentin. ID followup as scheduled with Dr. Ruiz. Clinical infection resolved today. Discharged from wound center. To [facility] to order shoes and also for reassessment. This note was generated with [employer] dictation software. It may contain incorrect words, spelling, and punctuation that were not noted in checking the note before signing. The medical decision making level is moderate. There is noted moderate risk of morbidity after considering this treatment plan and diagnostic data. Considerations were given to prescription management, decisions regarding surgical options, or social determinants of health. The problems addressed require a moderate decision making level which includes one or more chronic illnesses (w/ exacerbation, progression, or side effects), two or more stable chronic illnesses, one undiagnosed new problem w/ uncertain prognosis, one acute illness with systemic symptoms, or one acute complicated injury.
--- NOTE | 2022-02-25 13:07 | VDLE_ITS ---
Reason For Study: Edema RIGHT LEFT CFV is compressible, spontaneous, phasic, CFV is compressible, spontaneous, phasic, competent and demonstrates normal competent, and demonstrates normal augmentation. augmentation. FV is compressible, spontaneous, phasic, FV is compressible, spontaneous, phasic, competent and demonstrates normal competent and demonstrates normal augmentation. augmentation. POP V is compressible, spontaneous, phasic, POP V is compressible, spontaneous, phasic, competent and demonstrates normal competent and demonstrates normal augmentation. augmentation. T/P Trunk is compressible. T/P Trunk is compressible. PTV is compressible. PTV is compressible. RT PerV is compressible. LT PerV is compressible. SFJ is competent and measures 0.69 x 0.72 cm. SFJ is competent and measures 0.89 x 0.90 cm. GSV proximal thigh measures 0.27 x 0.27 cm. GSV proximal thigh measures 0.48 x 0.47 cm. GSV at knee measures 0.23 x 0.24 cm. GSV at knee measures 0.32 x 0.35 cm. GSV INCOMPETENT throughout for greater than GSV is competent throughout. 0.5 seconds. SSV proximal calf is competent and measures SSV proximal calf is INCOMPETENT for greater 0.20 x 0.19 cm. than 0.5 seconds and measures 0.14 x 0.13 cm. Procedure This is a venous duplex using B-mode, color flow and spectral Doppler. Exam performed in department. VL/Venous Duplex US - Michael Extrem Interpretation Summary Deep veins of the lower extremities are bilaterally patent and compressible seg mentally. There is no evidence of deep vein thrombosis on either side. Valvular competence appears in tact within the proximal deep venous systems bilaterally. The great saphenous veins appear bila terally patent and compressible segmentally. Sapheno-femoral junctions are bilaterally competent . The right great saphenous vein appears segmentally incompetent. The left great saphenous vein a ppears segmentally competent. The right small saphenous vein is patent and incompetent. The left s mall saphenous vein is patent and competent. Ordering Physician: Tiffany Hairston Referring Physician: Marion Roland Performed By: Sara Hernandez RVT
== END | disposition home or self-care (01) ==
LOC: WC 01-29 15:00 → CVS 13:00
PROVIDERS: PCP Family Medicine; Referring Provider Podiatrist; Visit Provider Podiatrist
DX: E11.621 Type 2 diabetes mellitus with foot ulcer (principal); E11.51 Type 2 diabetes mellitus with diabetic peripheral angiopathy without gangrene; L97.422 Non-pressure chronic ulcer of left heel and midfoot with fat layer exposed; E11.59 Type 2 diabetes mellitus with other circulatory complications; I87.2 Venous insufficiency (chronic) (peripheral); I10 Essential (primary) hypertension; R60.0 Localized edema
CPT/HCPCS: 15275; 93970; 99213; Q4196; G0463

== ENCOUNTER 2022-09-15 23:17 | Emergency (ER) | payer MEDICARE, SELFPAY ==
[2022-09-15 23:18] VITALS: BP 194/106; PULSE 108; RESP 16; TEMP 36.1; O2SAT 100; BMI 30.5
--- NOTE | 2022-09-15 23:38 | EKG12_ITS ---
Test Reason : DYSRHYTHMIA Blood Pressure : / mmHG Vent. Rate : 104 BPM Atrial Rate : 104 BPM P-R Int : 190 ms QRS Dur : 068 ms QT Int : 340 ms P-R-T Axes : 088 -04 146 degrees QTc Int : 447 ms Sinus tachycardia Nonspecific ST and T wave abnormality Abnormal ECG Confirmed by MANDY KEY, CATARINO ([id number]), international editorial producer MUSA NICOLE ([id number]) on 09/18/2022 8:31:52 AM Referred By: SHE Confirmed By:CATARINO GALVAN MD
--- NOTE | 2022-09-15 23:39 | EDS_ITS ---
HPI History of Present Illness Chief Complaint: Nausea/Vomiting Informant: patient Onset/Context/Timing Onset: Today Narrative Narrative: Patient presents secondary to nausea and vomiting for the last 6 hours. She states she felt nauseated all day but started vomiting around dinnertime this evening. She is also had diarrhea. She does not believe she had a fever. She does report pain between her breasts and in the right side of her abdomen. [facility] Medical History 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 Diabetes Diabetic foot ulcer associated with type 2 diabetes mellitus Hypothyroidism Neuropathy Osteomyelitis Type 2 diabetes mellitus Type 2 diabetes mellitus with diabetic polyneuropathy Home Medications alprazolam 0.5 mg tablet 0.5 mg PO TID PRN PRN Anxiety 07/16/20 [History Last Taken Unknown] clopidogrel 75 mg tablet 75 mg PO DAILY 07/16/20 [History Last Taken Unknown] ergocalciferol (vitamin D2) 1,250 mcg (50,000 unit) capsule 1.25 unit PO QWEEK supplement 07/16/20 [History Last Taken Unknown] furosemide 40 mg tablet 40 mg PO DAILY fluid 07/16/20 [History Last Taken Unknown] gabapentin 600 mg tablet 600 mg PO BIDCM 07/16/20 [History Last Taken Unknown] glimepiride 4 mg tablet 4 mg PO DAILY dm 07/16/20 [History Last Taken Unknown] hydrocodone-acetaminophen 5-325mg 5mg-325mg 1 ea PO BID PRN PRN Not Specified 07/16/20 [History Last Taken Unknown] insulin detemir U-100 100 unit/mL subcutaneous solution 28 unit SQ DAILY dm 07/16/20 [History Last Taken Unknown] levothyroxine 50 mcg tablet 50 mcg PO DAILY thyroid 07/16/20 [History Last Taken Unknown] potassium chloride 20 mEq tablet,extended release(part/cryst) 20 meq PO DAILYCM #30 tabs 07/19/20 [Rx Last Taken Unknown] hydrochlorothiazide 25 mg tablet 25 mg PO DAILY 10/31/21 [History Last Taken Unknown] ramipril 10 mg tablet 10 mg PO DAILY 10/31/21 [History Last Taken Unknown] semaglutide 0.25 mg or 0.5 mg (2 mg/1.5 mL) subcutaneous pen injector (Ozempic) 0.25 mg subcut QWEEK diabetes 10/31/21 [History Last Taken Unknown] amoxicillin 875 mg-potassium clavulanate 125 mg tablet 1 tab PO Q12H #80 tabs 01/17/22 [Rx Last Taken Unknown] doxycycline hyclate 100 mg capsule 100 mg PO BID #80 caps 01/17/22 [Rx Last Taken Unknown] metoclopramide HCl 10 mg tablet (Reglan) 10 mg PO Q6H PRN nausea and vomiting #14 tabs 09/16/22 [Rx Last Taken Unknown] Allergy/AdvReac Type Severity Reaction Status Date / Time No Known Allergies Allergy Verified 01/14/22 17:42 Surgical History History of appendectomy History of cholecystectomy Social History Smoking Status: Never smoker ROS ROS ED Constitutional Constitutional ED: Denies chills or fever(s) Eyes Eyes: Denies change in vision or discharge from eye(s) ENT ENT ED: Denies discharge from eye(s), rhinorrhea or sore throat Cardiovascular Cardiovascular: Reports chest pain; Denies palpitations Respiratory/Chest Respiratory/Chest: Denies cough or dyspnea Gastrointestinal Gastrointestinal: Reports abdominal pain, diarrhea, nausea and vomiting Genitourinary Genitourinary ED: Denies difficulty urinating or dysuria Musculoskeletal Musculoskeletal: Denies back pain or extremity pain Integumentary Denies Abrasions or rash Neurologic Neurologic: Reports weakness; Denies headache(s) Psychiatric Psychiatric: Denies anxiety or depression Allergic/Immunologic Allergic/Immunologic ED: Denies lip swelling or urticaria EXAM Physical Exam Const Vital Signs: 09/15/22 23:18 Temperature 97.0 F L Temperature Source Temporal Pulse Rate 108 H Respiratory Rate 16 Blood Pressure 194/106 H Blood Pressure Mean 135 Pulse Ox 100 Oxygen Delivery Method Room Air Positive well nourished and well developed General Appearance ED: well developed HEENT Reports normocephalic and head/scalp atraumatic Eyes PERRL and EOMs intact bilaterally Neck supple Chest Wall inspection of chest normal and palpation of chest normal Resp normal respiratory effort and clear to auscultation bilaterally Cardio regular rate and regular rhythm GI non-tender Auscultation: hypoactive bowel sounds Palpation: soft Extremity normal to inspection Neuro oriented x3 and no sensory deficits noted Sensorium / Orientation: alert Motor Exam: strength 5/5 throughout Psych mental status grossly normal Skin no rashes or lesions noted MDM MDM MDM Narrative Medical decision making narrative: IV line established. Patient given IV fluids along with Zofran. Lab work obtained. Lab Data Attestation: I reviewed the patient's lab results. Labs: Laboratory Results - last 24 hr 09/15/22 09/15/22 23:40 23:40 WBC 12.0 H RBC 6.09 H Hgb 18.1 H* Hct 56.7 H MCV 93.1 MCH 29.7 MCHC 31.9 L RDW Std Deviation 44.8 H RDW Coeff of Pedro 13.2 Plt Count 216 MPV 10.6 Immature Gran % (Auto) 0.600 Neut % (Auto) 84.7 H Lymph % (Auto) 8.9 L Woodson % (Auto) 4.3 Eos % (Auto) 1.1 Baso % (Auto) 0.4 Absolute Neuts (auto) 10.2 H Absolute Lymphs (auto) 1.07 Nucleated RBC % 0 [address] Path Review May foll Sodium 138 Potassium 5.1 Chloride 105 Carbon Dioxide 20.0 L Anion Gap 13 BUN 12 Creatinine 1.23 H Estim Creat Clear Calc 34.65 Est GFR (MDRD) Af Amer 55 L Est GFR (MDRD) Non-Af 45 L BUN/Creatinine Ratio 9.8 L Glucose 249 H Calcium 9.3 Total Bilirubin 0.60 Direct Bilirubin 0.07 AST 21 ALT 17 Alkaline Phosphatase 100 Troponin I High Sens 10 Total Protein 7.6 Albumin 3.7 Globulin 3.9 Lipase 42 L Radiography Diagnostic Testing: Clinical Impression(s) from Imaging Studies Abdomen/Pelvis CT 09/16/22 02:08 IMPRESSION: There is a nonobstructive stone in the left kidney measures 4 mm. Electronically Signed: Neftali Barnett MD at 3:01 EST Reading Location ID and State: [facility] / [place] Tel , Service support , EKG Initial EKG: Attestation: I personally reviewed and interpreted this EKG as follows: Interpretation: Sinus Tachycardia (Sinus tach at 104. Nonspecific ST change laterally.) Treatment and Re-Evaluation Narrative: White count slightly elevated at 12.0 with 84% neutrophils. Hemoglobin concentrated at 18.1. Chemistry studies reveal normal BUN with a slightly increased creatinine at 1.23. Glucose is 249. LFTs and lipase are normal. EKG reveals no acute ischemia. Troponin is normal. On repeat evaluation patient had no significant improvement with her nausea and vomiting with Zofran. She was given a dose of Phenergan. On repeat exam she continues to have vomiting. She is given a dose of Reglan and Benadryl. CT of the flank is obtained. CT the flank reveals a small nonobstructive renal stone. No other acute findings appreciated. At this time patient states that she does feel improved and wants to try to go home. I will write a prescription for Reglan and have it delivered to bedside from the hospital pharmacy. Return instructions are given. Son is at bedside and agrees with the plan. Discharge Plan Triage Chief Complaint: Nausea/Vomiting ED Provider: Whitney Ott Dx/Rx/DC Orders Clinical Impression: Viral gastroenteritis Instructions: ED Gastroenteritis, Viral (Adult) Prescriptions: New metoclopramide HCl [Reglan] 10 mg tablet 10 mg PO Q6H PRN (Reason: nausea and vomiting) Qty: 14 0RF No Action furosemide 40 MG tablet 40 mg PO DAILY gabapentin 600 MG tablet 600 mg PO BIDCM hydrocodone-acetaminophen 1 EACH tablet 1 ea PO BID PRN PRN (Reason: Not Specified) clopidogrel 75 MG tablet 75 mg PO DAILY levothyroxine 50 MCG tablet 50 mcg PO DAILY glimepiride 4 MG tablet 4 mg PO DAILY insulin detemir U-100 100 UNIT/ML solution 28 unit SQ DAILY alprazolam 0.5 MG tablet 0.5 mg PO TID PRN PRN (Reason: Anxiety) ergocalciferol (vitamin D2) 50,000 UNIT capsule 1.25 unit PO QWEEK Rx Instructions: takes Fridays potassium chloride 20 MEQ tablet 20 meq PO DAILYCM Qty: 30 0RF Rx Instructions: Take with furosemide/Lasix hydrochlorothiazide 25 mg Tablet 25 mg PO DAILY ramipril 10 mg Tablet 10 mg PO DAILY Ozempic 0.25 mg or 0.5 mg(2 mg/1.5 mL) Pen Injector 0.25 mg SUBCUT QWEEK Rx Instructions: due to start this thursday doxycycline hyclate 100 mg capsule 100 mg PO BID Qty: 80 0RF amoxicillin-pot clavulanate 875-125 mg tablet 1 tab PO Q12H Qty: 80 0RF Primary Care Provider: Marion Roland Referrals: Marion Roland DO [Primary Care Provider] - Keep Gabriella appointment Disposition Disposition: Home, Self Care
[2022-09-15 23:51] LABS: Absolute Lymphocyte Count 1.07 X10^3/uL (0.83-4.51); Absolute Neutrophil Count 10.2 X10^3/uL (2.0-7.7); Basophil# 0.05 X10^3/uL; Basophil% 0.4 % (0-1); Eosinophil# 0.13 X10^3/uL; Eosinophils% 1.1 % (0-5); Lymphocyte # 1.07 X10^3/ul (0.83-4.51); Lymphocyte % 8.9 % (19-41); Mean Corp Hgb Conc 31.9 g/dL (32-36); Mean Corpuscular Hgb 29.7 pg (27.0-32.0); Mean Corpuscular Volume 93.1 fL (81-99); Mean Platelet Vol. 10.6 fl (6.2-12.0); Monocyte# 0.51 X10^3/uL; Monocyte% 4.3 % (0-10); NRBC Flagged by Analyzer 0 % (0-5); Neutrophil # 10.16 X10^3/uL (2.7-7.7); Neutrophil % 84.7 % (47-70); Platelet Count 216 K/mm3 (150-450); RBC Distribution Width CV 13.2 % (11.6-14.6); RBC Distribution Width SD 44.8 fl (35.1-43.9); Red Blood Count 6.09 M/mm3 (4.2-5.4)
[2022-09-15] MEDS: Ondansetron 4 MG/2 ML Vial IV (23:51)
[2022-09-15 23:55] LABS: Differential Indicated SCAN CRITERIA MET; Hematocrit 56.7 % (37-47)
[2022-09-15 23:56] LABS: Hemoglobin 18.1 g/dL (12.0-15.0)
[2022-09-16 00:31] LABS: AST(SGOT) 21 U/L (15-37); Alanine Aminotransfer ALT/SGPT 17 U/L (13-56); Albumin, Serum 3.7 g/dL (3.2-5.0); Alkaline Phosphatase 100 U/L (45-117); Anion Gap 13 (5-15); BUN 12 mg/dL (7-18); BUN/Creat Ratio 9.8 RATIO (10-20); Bilirubin, Direct 0.07 mg/dL (0.00-0.30); Calcium,Total 9.3 mg/dL (8.5-10.1); Chloride 105 mmol/L (98-107); Creatinine, Serum 1.23 mg/dL (0.55-1.02); EST Glomerular Filtration Rate 45 mL/min (>60); Est Glom Filt Rate - Afr Amer 55 mL/min (>60); Estimated Creatinine Clearance 34.65 ml/min; Globulin 3.9 g/dL (2.2-4.2); Glucose 249 mg/dL (74-106); Lipase 42 U/L (73-393); Potassium 5.1 mmol/L (3.5-5.1); Protein, Total 7.6 g/dL (6.4-8.2); Sodium Level 138 mmol/L (136-145); Troponin-I HS 10 pg/mL (3.0-54.0)
[2022-09-16] MEDS: 0.9% Normal Saline 1,000 ML 150 ML IV (00:40)
[2022-09-16] MEDS: proMETHazine 25 MG/ML Syringe 12.5 MG IM (01:14)
--- NOTE | 2022-09-16 02:08 | CT_ITS ---
STUDY: CT ABDOMEN AND PELVIS WITHOUT CONTRAST REASON FOR EXAM: Female, 72 years old. abdominal pain RADIATION DOSAGE (If Supplied By Facility): CTDIvol = ( 12.69 ) mGy, DLP = ( 640.18 ) mGycm TECHNIQUE: Transaxial images were obtained from the dome of the diaphragm to the symphysis pubis without oral contrast, and without intravenous contrast. Sagittal and coronal images were reconstructed. Individualized dose optimization techniques were used for this CT. COMPARISON: None. FINDINGS: The visualized lung bases are unremarkable. The visualized portions of the heart are within normal limits. Normal liver. There are surgical clips in the gallbladder fossa consistent with a prior cholecystectomy. Normal spleen. Normal pancreas. Normal bilateral adrenal glands. Normal right kidney. There is a nonobstructive stone in the left kidney measures 4 mm. There is no hydronephrosis. Normal visualized stomach. Normal small intestine. Normal colon. The appendix is visualized and appears normal. Normal abdominal aorta. Normal inferior vena cava. Normal retroperitoneum. Normal urinary bladder. Normal abdominal wall. Normal osseous structures. CT/Abdomen/Pelvis without Cont IMPRESSION: There is a nonobstructive stone in the left kidney measures 4 mm. Electronically Signed: Neftali Barnett MD at 3:01 EST ,
[2022-09-16] MEDS: DiphenhydrAMINE 50 MG/ML Syringe 12.5 MG IV (02:20)
[2022-09-16] MEDS: Metoclopramide 10 MG/2 ML Vial IV (02:20)
[2022-09-16 04:10] VITALS: BP 154/89; PULSE 83; RESP 16; O2SAT 99
[2022-09-17 09:39] LABS: Pathologist Review Reviewed
== END 2022-09-16 04:10 | disposition home or self-care (01) ==
PROVIDERS: Emergency Provider Emergency Medicine; PCP Family Medicine; Visit Provider Emergency Medicine
DX: A08.4 Viral intestinal infection, unspecified (principal)
CPT/HCPCS: 74176; 80048; 80076; 83690; 84484; 85025; 93005; 96361; 96365; 96372; 96375; 99283; J7030; A4216; J2405

== ENCOUNTER → 2022-10-29 | Outpatient (CLI) | payer MEDICARE, SELFPAY | END | disposition home or self-care (01) | PROVIDERS: PCP Family Medicine; Visit Provider Podiatrist | DX: L97.522 Non-pressure chronic ulcer of other part of left foot with fat layer exposed (principal) | CPT/HCPCS: 87070; 87077; 87186; 87205 ==

== ENCOUNTER 2023-08-22 16:43 | Emergency (ER) | payer MEDICARE, SELFPAY ==
[2023-08-22 16:43] VITALS: BP 175/86; BP 184/94; PULSE 90; RESP 16; TEMP 36.6; O2SAT 98; BMI 29.7
--- NOTE | 2023-08-22 17:00 | EX.ED.DYSGE1 ---
HPI History of Present Illness Chief Complaint: Hypertension Narrative Narrative: 73-year-old female presenting with hypertension. She states it started this morning. She states her blood pressure was 210/110 this morning. She took her morning medication which includes ramipril 10 mg and hydrochlorothiazide 25 mg. She has been on these for years. She states that her blood pressures have been up today. She denies headache, blurred vision, slurred speech, nausea, vomiting, dizziness. She denies chest pain, palpitations, shortness of breath. She states she feels otherwise well. She states she did not want come to the ER but her children Urging her to come. 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 Diabetes Diabetic foot ulcer associated with type 2 diabetes mellitus Hypothyroidism Neuropathy Osteomyelitis Type 2 diabetes mellitus Type 2 diabetes mellitus with diabetic polyneuropathy Home Medications alprazolam 0.5 mg tablet 0.5 mg PO TID PRN PRN Anxiety 07/16/20 [History Last Taken Unknown] clopidogrel 75 mg tablet 75 mg PO DAILY 07/16/20 [History Last Taken Unknown] ergocalciferol (vitamin D2) 1,250 mcg (50,000 unit) capsule 1.25 unit PO QWEEK supplement 07/16/20 [History Last Taken Unknown] furosemide 40 mg tablet 40 mg PO DAILY fluid 07/16/20 [History Last Taken Unknown] gabapentin 600 mg tablet 600 mg PO BIDCM 07/16/20 [History Last Taken Unknown] glimepiride 4 mg tablet 4 mg PO DAILY dm 07/16/20 [History Last Taken Unknown] hydrocodone-acetaminophen 5-325mg 5mg-325mg 1 ea PO BID PRN PRN Not Specified 07/16/20 [History Last Taken Unknown] insulin detemir U-100 100 unit/mL subcutaneous solution 28 unit SQ DAILY dm 07/16/20 [History Last Taken Unknown] levothyroxine 50 mcg tablet 50 mcg PO DAILY thyroid 07/16/20 [History Last Taken Unknown] potassium chloride 20 mEq tablet,extended release(part/cryst) 20 meq PO DAILYCM #30 tabs 07/19/20 [Rx Last Taken Unknown] hydrochlorothiazide 25 mg tablet 25 mg PO DAILY 10/31/21 [History Last Taken Unknown] ramipril 10 mg tablet 10 mg PO DAILY 10/31/21 [History Last Taken Unknown] semaglutide 0.25 mg or 0.5 mg (2 mg/1.5 mL) subcutaneous pen injector (Ozempic) 0.25 mg subcut QWEEK diabetes 10/31/21 [History Last Taken Unknown] amoxicillin 875 mg-potassium clavulanate 125 mg tablet 1 tab PO Q12H #80 tabs 01/17/22 [Rx Last Taken Unknown] doxycycline hyclate 100 mg capsule 100 mg PO BID #80 caps 01/17/22 [Rx Last Taken Unknown] metoclopramide HCl 10 mg tablet (Reglan) 10 mg PO Q6H PRN nausea and vomiting #14 tabs 09/16/22 [Rx Last Taken Unknown] amlodipine 5 mg tablet 5 mg PO DAILY #30 tabs 08/22/23 [Rx Last Taken Unknown] Allergy/AdvReac Type Severity Reaction Status Date / Time No Known Allergies Allergy Verified 08/22/23 16:45 Surgical History History of appendectomy History of cholecystectomy Social History Smoking Status: Never smoker ROS ROS ED Constitutional Constitutional ED: Denies chills, fever(s) or sweats Eyes Eyes: Denies blurry vision or change in vision ENT ENT ED: Denies ear pain or sore throat Cardiovascular Cardiovascular: Denies chest pain, palpitations or racing heartbeat Respiratory/Chest Respiratory/Chest: Denies cough, dyspnea or sputum Gastrointestinal Gastrointestinal: Denies abdominal pain, constipation, diarrhea, nausea or vomiting Genitourinary Genitourinary ED: Denies dysuria, hematuria or urinary frequency Musculoskeletal Musculoskeletal: Denies arthralgias, myalgias or neck pain Integumentary Denies abscess, Abrasions or rash Neurologic Neurologic: Denies headache(s), paresthesias or weakness Psychiatric Psychiatric: Denies anxiety, depression, suicidal ideation or suicidal thoughts Endocrine Endocrinology: Denies polydipsia or polyuria EXAM Physical Exam Const Vital Signs: 08/22/23 16:43 08/22/23 16:43 08/22/23 16:43 Temperature 97.8 F Temperature Source Temporal Pulse Rate 90 Respiratory Rate 16 Respiratory Effort Normal Respiratory Pattern Normal Blood Pressure 184/94 H 175/86 H Blood Pressure Mean 124 115 Pulse Ox 98 Oxygen Delivery Method Room Air Positive well nourished General Appearance ED: NAD; Negative for pallor HEENT Reports moist mucous membranes Eyes PERRL and EOMs intact bilaterally General Eye ED: Negative for pale conjunctiva Chest Wall inspection of chest normal and palpation of chest normal Resp normal respiratory effort and clear to auscultation bilaterally Auscultation: Negative for rales, rhonchi or wheezes Cardio regular rate and regular rhythm Extremity normal to inspection Neuro oriented x3 and CN's II-XII intact bilaterally Psych mental status grossly normal Skin no rashes or lesions noted and no wounds General Skin Exam: Negative for jaundice or pallor MDM MDM MDM Narrative Medical decision making narrative: 73-year-old female presenting with asymptomatic hypertension. Her initial blood pressure 184/94. Repeat blood pressure 175/86. Patient has no red flag signs or symptoms. Physical exam is unremarkable. She is alert and awake, oriented x 3. Heart regular rate and rhythm without murmur. Lungs clear to auscultation bilaterally. Vital signs stable she is afebrile. Will discuss with her primary care physician increasing her medications and follow-up as well is keeping a blood pressure diary. Patient minimal this plan. Discussed with Dr. Mckinley who is on-call for her primary care physician. He recommended adding amlodipine 5 mg. She given the first dose in the ED. She is to continue her ramipril and her hydrochlorothiazide. She is to keep a blood pressure diary. They will follow-up in the office next week. Impression: 1. Hypertension Lab Data Attestation: I reviewed the patient's lab results. Discharge Plan Triage Chief Complaint: Hypertension ED Provider: Jean-Paul Suarez Dx/Rx/DC Orders Instructions: ED Hypertension, Established Prescriptions: New amlodipine 5 mg tablet 5 mg PO DAILY Qty: 30 0RF No Action furosemide 40 MG tablet 40 mg PO DAILY gabapentin 600 MG tablet 600 mg PO BIDCM hydrocodone-acetaminophen 1 EACH tablet 1 ea PO BID PRN PRN (Reason: Not Specified) clopidogrel 75 MG tablet 75 mg PO DAILY levothyroxine 50 MCG tablet 50 mcg PO DAILY glimepiride 4 MG tablet 4 mg PO DAILY insulin detemir U-100 100 UNIT/ML solution 28 unit SQ DAILY alprazolam 0.5 MG tablet 0.5 mg PO TID PRN PRN (Reason: Anxiety) ergocalciferol (vitamin D2) 50,000 UNIT capsule 1.25 unit PO QWEEK Rx Instructions: takes Fridays potassium chloride 20 MEQ tablet 20 meq PO DAILYCM Qty: 30 0RF Rx Instructions: Take with furosemide/Lasix hydrochlorothiazide 25 mg Tablet 25 mg PO DAILY ramipril 10 mg Tablet 10 mg PO DAILY Ozempic 0.25 mg or 0.5 mg(2 mg/1.5 mL) Pen Injector 0.25 mg SUBCUT QWEEK Rx Instructions: due to start this thursday doxycycline hyclate 100 mg capsule 100 mg PO BID Qty: 80 0RF amoxicillin-pot clavulanate 875-125 mg tablet 1 tab PO Q12H Qty: 80 0RF metoclopramide HCl [Reglan] 10 mg tablet 10 mg PO Q6H PRN (Reason: nausea and vomiting) Qty: 14 0RF Primary Care Provider: Marion Roland Referrals: Marion Roland DO [Primary Care Provider] - Disposition Disposition: Home, Self Care
[2023-08-22] MEDS: amLODIPine 5 MG Tablet PO (17:25)
[2023-08-22 17:27] VITALS: BP 172/84; PULSE 64; RESP 14; TEMP 36.6
== END 2023-08-22 17:28 | disposition home or self-care (01) ==
LOC: ED 17:19
PROVIDERS: Emergency Provider Student in an Organized Health Care Education/Training Program; PCP Family Medicine; Visit Provider Student in an Organized Health Care Education/Training Program
DX: I10 Essential (primary) hypertension (principal); E11.42 Type 2 diabetes mellitus with diabetic polyneuropathy; Z79.4 Long term (current) use of insulin; Z79.02 Long term (current) use of antithrombotics/antiplatelets; Z79.84 Long term (current) use of oral hypoglycemic drugs; Z79.85 Long-term (current) use of injectable non-insulin antidiabetic drugs; Z79.899 Other long term (current) drug therapy
CPT/HCPCS: 99282

== ENCOUNTER 2025-03-02 17:46 | Inpatient (IN) | payer MEDICARE, SELFPAY ==
[2025-03-02 17:48] VITALS: BP 116/54; PULSE 68; RESP 18; TEMP 36.3; O2SAT 98
--- NOTE | 2025-03-02 19:17 | CT_ITS ---
EXAM: BRAIN/HEAD WITHOUT CONTRAST CLINICAL HISTORY: 74 y/o F with FALL/TRAUMA, APIXABAN. COMPARISON: None. TECHNIQUE: Routine CT imaging of the head without IV contrast. Additional multiplanar reformats were obtained. Dose reduction techniques were used including intermediate exposure control (AEC),iterative reconstruction technique, and/or mA and/or KV dose adjustments based on patient's size. FINDINGS: The ventricles, sulci and cisterns are normal for patient age. There is no evidence of acute intracranial hemorrhage or herniation. There is no midline shift, mass effect, or extra-axial collection. Moderate patchy supratentorial white matter hypodensities. The sullivan and white matter differentiation is otherwise maintained. Prior ocular lens replacements. The visualized paranasal sinuses and mastoids are unremarkable. No acute calvarial fracture or scalp hematoma. CT/Brain/Head without Contrast IMPRESSION: No acute intracranial finding. Reading Location: [id number]
--- NOTE | 2025-03-02 19:17 | CT_ITS ---
EXAM: BRAIN/HEAD WITHOUT CONTRAST CLINICAL HISTORY: 74 y/o F with FALL/TRAUMA, APIXABAN. COMPARISON: None. TECHNIQUE: Routine CT imaging of the head without IV contrast. Additional multiplanar reformats were obtained. Dose reduction techniques were used including intermediate exposure control (AEC),iterative reconstruction technique, and/or mA and/or KV dose adjustments based on patient's size. FINDINGS: The ventricles, sulci and cisterns are normal for patient age. There is no evidence of acute intracranial hemorrhage or herniation. There is no midline shift, mass effect, or extra-axial collection. Moderate patchy supratentorial white matter hypodensities. The sullivan and white matter differentiation is otherwise maintained. Prior ocular lens replacements. The visualized paranasal sinuses and mastoids are unremarkable. No acute calvarial fracture or scalp hematoma. CT/Brain/Head without Contrast IMPRESSION: No acute intracranial finding. Reading Location: [id number]
--- NOTE | 2025-03-02 19:18 | EX.ED.DYSGE1 ---
HPI History of Present Illness Chief Complaint: Abn Labs Informant: patient and family Narrative Narrative: 74-year-old female was sent here to the ER by her PCP because of labs that were done 2 days ago that showed dangerously low sodium, however they were done at an outside facility, and they were not given to the patient if patient does not know the number. They were just told to come to the nearest ER. This was done at [facility]. She states the labs were done because she has chronic diarrhea maybe twice a day watery nonbloody no melena, and she was recently diagnosed with atrial fibrillation and started on some new medications including apixaban, and she has been getting lab checks related to that. Son states is a separate issue, she happened to have 2 falls, 1 yesterday and a minor 1 today. Yesterday her cat got between her legs, causing her to trip and fall, hitting her left forehead and sustaining a skin tear on her right dorsal hand, no other injuries. There was no loss of consciousness, she denies a headache, nausea or vomiting, but she does have some minor vision changes saying that it is hard to read close-up compared with before the fall. 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 Diabetic foot ulcer associated with type 2 diabetes mellitus Type 2 diabetes mellitus Home Medications ?Medication ?Instructions ?Recorded ?Last Taken ?Type alprazolam 0.5 mg tablet 0.5 mg PO TID PRN PRN Anxiety 07/16/20 Unknown History clopidogrel 75 mg tablet 75 mg PO DAILY 07/16/20 Unknown History ergocalciferol (vitamin D2) 1,250 1.25 unit PO QWEEK supplement 07/16/20 Unknown History mcg (50,000 unit) capsule furosemide 40 mg tablet 40 mg PO DAILY fluid 07/16/20 Unknown History gabapentin 600 mg tablet 600 mg PO BIDCM 07/16/20 Unknown History glimepiride 4 mg tablet 4 mg PO DAILY dm 07/16/20 Unknown History hydrocodone-acetaminophen 5-325mg 1 ea PO BID PRN PRN Not Specified 07/16/20 Unknown History 5mg-325mg insulin detemir U-100 100 unit/mL 28 unit SQ DAILY dm 07/16/20 Unknown History subcutaneous solution levothyroxine 50 mcg tablet 50 mcg PO DAILY thyroid 07/16/20 Unknown History potassium chloride 20 mEq 20 meq PO DAILYCM #30 tabs 07/19/20 Unknown Rx tablet,extended release(part/cryst) hydrochlorothiazide 25 mg tablet 25 mg PO DAILY 10/31/21 Unknown History ramipril 10 mg tablet 10 mg PO DAILY 10/31/21 Unknown History semaglutide 0.25 mg or 0.5 mg (2 0.25 mg subcut QWEEK diabetes 10/31/21 Unknown History mg/1.5 mL) subcutaneous pen injector (Ozempic) amoxicillin 875 mg-potassium 1 tab PO Q12H #80 tabs 01/17/22 Unknown Rx clavulanate 125 mg tablet doxycycline hyclate 100 mg capsule 100 mg PO BID #80 caps 01/17/22 Unknown Rx metoclopramide HCl 10 mg tablet 10 mg PO Q6H PRN nausea and 09/16/22 Unknown Rx (Reglan) vomiting #14 tabs amlodipine 5 mg tablet 5 mg PO DAILY #30 tabs 08/22/23 Unknown Rx Allergy/AdvReac Type Severity Reaction Status Date / Time No Known Allergies Allergy Verified 03/02/25 17:47 Surgical History History of appendectomy History of cholecystectomy Social History Smoking Status: Never smoker ROS ROS ED Constitutional Constitutional ED: Reports weakness; Denies chills or fever(s) Eyes Eyes: Reports change in vision bilateral (more difficult to read compared with before my fall); Denies diplopia ENT ENT ED: Denies rhinorrhea or sore throat Cardiovascular Cardiovascular: Denies chest pain or palpitations Respiratory/Chest Respiratory/Chest: Denies cough or dyspnea Gastrointestinal Gastrointestinal: Reports diarrhea; Denies abdominal pain, nausea or vomiting Genitourinary Genitourinary ED: Denies dysuria or hematuria Musculoskeletal Musculoskeletal: Denies back pain or neck pain Integumentary Denies abscess or rash Neurologic Neurologic: Denies confusion, headache(s), paresthesias or weakness Psychiatric Psychiatric: Denies anxiety or suicidal thoughts EXAM Physical Exam Const Vital Signs: 03/02/25 17:48 03/02/25 19:55 03/02/25 19:55 Temperature 97.3 F L Temperature Source Temporal Pulse Rate 68 73 Respiratory Rate 18 12 Respiratory Effort Normal Non-Labored Respiratory Pattern Normal Blood Pressure 116/54 L 133/73 H Blood Pressure Mean 74 93 Pulse Ox 98 98 Oxygen Delivery Method Room Air Room Air 03/02/25 21:00 Temperature Temperature Source Pulse Rate 69 Respiratory Rate 12 Respiratory Effort Respiratory Pattern Blood Pressure 121/56 H Blood Pressure Mean 77 Pulse Ox 99 Oxygen Delivery Method Room Air Positive well nourished and well developed General Appearance ED: well developed and NAD HEENT Reports moist mucous membranes HEENT Narrative: Left forehead mild hematoma, ecchymosis, tenderness without crepitance or depression. No orbital rim tenderness. No other facial bony tenderness. normocephalic, trauma and tenderness Eyes PERRL and EOMs intact bilaterally Eyes Narrative: Extraocular movements intact without pain or entrapment Neck full ROM and supple Resp normal respiratory effort and clear to auscultation bilaterally Cardio regular rate, regular rhythm and no murmurs GI non-tender and non-distended Auscultation: normoactive bowel sounds Palpation: soft Back/Spine no CVA tenderness General Back: other FROM Extremity Extremity Narrative: Superficial skin tear on the right hand base of the dorsal hand, no signs of infection, there is a bandage on it no active bleeding, no bony tenderness full range of motion. General Extremety ED: Yes edema; Negative for pulses abnormal or tenderness General Extremity: edema bilateral lower extremity Details: mild (Symmetric, chronic and stable according the patient); Negative for pulses abnormal Neuro oriented x3, CN's II-XII intact bilaterally and no sensory deficits noted Sensorium / Orientation: awake and alert Motor Exam: general weakness Psych mental status grossly normal Skin no rashes or lesions noted and no wounds MDM MDM MDM Narrative Medical decision making narrative: Patient's sodium came back here at 125, with associated hypochloremia. The rest of her labs are unremarkable except for her urinalysis which shows indicators of infection. Discussed with the patient she has no urinary symptoms or frequency lately. She does feels generally weak but this could be explained by the hyponatremia so I am sending the urine for culture, starting her on slow saline, and given her symptoms, recommended admission to the hospital. I presume that the patient is probably euvolemic and this is related to her diuretic treatment. Discussed with hospitalist. Lab Data Attestation: I reviewed the patient's lab results. Labs: Laboratory Results - last 24 hr 03/02/25 03/02/25 03/02/25 19:30 19:55 21:16 WBC 5.8 RBC 4.32 Hgb 13.5 Hct 38.6 MCV 89.4 MCH 31.3 MCHC 35.0 RDW Std Deviation 38.5 RDW Coeff of Pedro 11.9 Plt Count 183 MPV 12.0 Immature Gran % (Auto) 0.200 Neut % (Auto) 77.0 H Lymph % (Auto) 14.2 L S[place] % (Auto) 8.0 Eos % (Auto) 0.3 Baso % (Auto) 0.3 Absolute Neuts (auto) 4.4 Absolute Lymphs (auto) 0.82 L Nucleated RBC % 0 Sodium Cancelled 125 L Potassium Cancelled 5.1 Chloride Cancelled 93 L Carbon Dioxide Cancelled 22.8 Anion Gap Cancelled 9 BUN Cancelled 14 Creatinine Cancelled 0.83 Estim Creat Clear Calc Cancelled 58.15 Est GFR (MDRD) Non-Af Cancelled 73 BUN/Creatinine Ratio Cancelled 16.3 Glucose Cancelled 196 H Calcium Cancelled 8.9 Total Bilirubin Cancelled 0.38 AST Cancelled 30 ALT Cancelled 15 Alkaline Phosphatase Cancelled 58 Total Protein Cancelled 6.2 Albumin Cancelled 3.7 Globulin Cancelled 2.5 Albumin/Globulin Ratio Cancelled 1.5 Urine Color Straw Urine Clarity Cloudy Urine pH 5.0 Ur Specific [place] 1.020 Urine Protein 15 H Urine Glucose (UA) 100 H Urine Ketones Negative Urine Occult Blood 10 H Urine Nitrite Negative Urine Bilirubin Negative Urine Urobilinogen Normal Ur Leukocyte Esterase 500 H Urine RBC 0 SEEN Urine WBC >100 SEEN Ur Squamous Epith Cells 0 SEEN Urine Bacteria 4+ Hyaline Casts 5-10 SEEN Urine Mucus 0 SEEN Radiography Diagnostic Testing: Clinical Impression(s) from Imaging Studies Brain CT 03/02/25 19:17 IMPRESSION: No acute intracranial finding. Reading Location: [id number] Management Discussion w/another healthcare provider: Hospitalist Discharge Plan Triage Chief Complaint: Abn Labs ED Provider: Justyn Rojas Dx/Rx/DC Orders Clinical Impression: Acute hyponatremia, Generalized weakness Prescriptions: No Action furosemide 40 MG tablet 40 mg PO DAILY gabapentin 600 MG tablet 600 mg PO BIDCM hydrocodone-acetaminophen 1 EACH tablet 1 ea PO BID PRN PRN (Reason: Not Specified) clopidogrel 75 MG tablet 75 mg PO DAILY levothyroxine 50 MCG tablet 50 mcg PO DAILY glimepiride 4 MG tablet 4 mg PO DAILY insulin detemir U-100 100 UNIT/ML solution 28 unit SQ DAILY alprazolam 0.5 MG tablet 0.5 mg PO TID PRN PRN (Reason: Anxiety) ergocalciferol (vitamin D2) 50,000 UNIT capsule 1.25 unit PO QWEEK Rx Instructions: takes Fridays potassium chloride 20 MEQ tablet 20 meq PO DAILYCM Qty: 30 0RF Rx Instructions: Take with furosemide/Lasix hydrochlorothiazide 25 mg Tablet 25 mg PO DAILY ramipril 10 mg Tablet 10 mg PO DAILY Ozempic 0.25 mg or 0.5 mg(2 mg/1.5 mL) Pen Injector 0.25 mg SUBCUT QWEEK Rx Instructions: due to start this thursday doxycycline hyclate 100 mg capsule 100 mg PO BID Qty: 80 0RF amoxicillin-pot clavulanate 875-125 mg tablet 1 tab PO Q12H Qty: 80 0RF metoclopramide HCl [Reglan] 10 mg tablet 10 mg PO Q6H PRN (Reason: nausea and vomiting) Qty: 14 0RF amlodipine 5 mg tablet 5 mg PO DAILY Qty: 30 0RF Primary Care Provider: Marion Roland Referrals: Marion Roland DO [Primary Care Provider] - Print Language: Luxembourgish Disposition Disposition: Acute Care Hospital [facility]
[2025-03-02 19:55] VITALS: BP 133/73; PULSE 73; RESP 12; O2SAT 98
[2025-03-02 19:56] VITALS: BMI 27.2
[2025-03-02 20:14] LABS: Hematocrit 38.6 % (37-47); Hemoglobin 13.5 g/dL (12.0-15.0); Immature Granulocytes Count 0.010 X10^3/uL (0.0-0.0); Mean Corp Hgb Conc 35.0 g/dL (32-36); Mean Corpuscular Volume 89.4 fL (81-99); Mean Platelet Vol. 12.0 fl (6.2-12.0); NRBC Flagged by Analyzer 0 % (0-5); Platelet Count 183 K/mm3 (150-450); RBC Distribution Width CV 11.9 % (11.6-14.6); RBC Distribution Width SD 38.5 fl (35.1-43.9); Red Blood Count 4.32 M/mm3 (4.2-5.4); White Blood Count 5.8 K/mm3 (4.4-11.0)
[2025-03-02 20:14] LABS: Mucous, Urine 0 SEEN /hpf (<or=2+); Red Blood Cells-Urine 0 SEEN /hpf (0-5); Squamous Epithelial Cells - UA 0 SEEN /hpf (5-10)
[2025-03-02 20:25] LABS: Color, Urine Straw (Yellow); Glucose, Dipstick 100 mg/dl (Normal); Ketone-Dipstick Negative (Negative); Leukocyte Esterase-Dipstick 500 /ul (Negative); Nitrite-Dipstick Negative (Negative); Occult Blood-Urine 10 /ul (Negative); Protein-Dipstick 15 mg/dl (Negative); Specific Gravity, Urine 1.020 (1.002-1.030); Urine Bilirubin Dipstick Negative (Negative)
[2025-03-02 21:00] VITALS: BP 121/56; PULSE 69; RESP 12; O2SAT 99
[2025-03-02 22:05] LABS: AST(SGOT) 30 U/L (<=31); Alanine Aminotransfer ALT/SGPT 15 U/L (<=34); Albumin, Serum 3.7 g/dL (3.4-4.8); Alkaline Phosphatase 58 U/L (35-104); Anion Gap 9 (5-15); BUN 14 mg/dL (4-19); BUN/Creat Ratio 16.3 RATIO (10-20); Calcium,Total 8.9 mg/dL (7.6-11.0); Carbon Dioxide 22.8 mmol/L (21.0-32.0); Chloride 93 mmol/L (98-108); Estimated Creatinine Clearance 58.15 ml/min (50-250); Globulin 2.5 g/dL (2.2-4.2); Glucose 196 mg/dL (70-99); Potassium 5.1 mmol/L (3.3-5.1)
[2025-03-02 22:20] VITALS: BP 122/83; PULSE 90; RESP 18; TEMP 37.6; O2SAT 98
[2025-03-02] MEDS: 0.9% Normal Saline (1000mL) 1,000 ML 100 ML IV (22:20)
--- NOTE | 2025-03-02 22:43 | HP.PCM.HOS_ITS ---
[facility] - General General Date of Admission: 03/02/25 Date of Service: 03/02/25 Chief Complaint: Low Sodium, Watery Diarrhea, Generalized Weakness and Falls. HPI Narrative RAGHAV ARGUELLO, is a 74 F with a past medical history of essential hypertension; on amlodipine, ramipril, as needed furosemide and hydrochlorothiazide, hyperlipidemia; on rosuvastatin, hypothyroidism; on levothyroxine, overweight; BMI of 27.2 this admission, DM-2; of unknown control on glimepiride, insulin detemir 28 units daily plus recently discontinued semaglutide, recently diagnosed atrial fibrillation; on apixaban, neuropathy; on gabapentin twice daily, history of COVID-19, PVD; with history of non-pressure chronic ulcer of the Left foot; s/p multiple toe amputations, chronic venous insufficiency, OA and chronic watery diarrhea who presents to [facility] ER complaining of having an abnormal outpatient lab test 2 days ago at [facility] that revealed dangerously low sodium in addition to 2 falls in the past 24 hours so she decided to come in for further evaluation and treatment. Ms. Arguello reports her symptoms began approximately 2 weeks prior to admission when she developed watery diarrhea that was attributed to an adverse drug reaction to semaglutide which was stopped at that time. Unfortunately, her diarrhea has continued causing her to progressively worsen and then about 2 days ago she developed generalized weakness and malaise with 2 subsequent falls at home in the last 24 hours with her first fall precipitated by her cat getting caught between her legs causing her to trip and fall hitting her left forehead and sustaining a skin tear on her Right dorsal hand with no other significant injuries, headache or LOC. She does not remember the number associated with her dangerously low sodium. She denies recent antibiotics, blood in stools, nausea or vomiting but she does admit to minor vision changes that made it hard for her to read close up prior to the fall. There is no report of related fever, chills, runny nose, sore throat, ear pain, chest pain, palpitations, heart racing, lower extremity edema, shortness of breath, cough, dysuria or rash. In the ER she was noted to have Hyponatremia of 125 mmol/L present on admission suspected to be due to Adverse Drug Reaction to hydrochlorothiazide complicated by UA positive for Acute Cystitis; without hematuria with persistent Watery Diarrhea culminating in Generalized Weakness and Ambulatory Dysfunction with Frequent Falls with a brain CT without contrast that revealed no acute intracranial changes. She was then admitted to the general medical floor for ongoing care for stay that is expected to extend beyond 2 midnights. FOR[facility], LATER [facility] Medical History Osteomyelitis Type 2 diabetes mellitus with diabetic polyneuropathy Neuropathy Diabetes Hypothyroidism 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 Diabetic foot ulcer associated with type 2 diabetes mellitus Type 2 diabetes mellitus Home Medications ?Medication ?Instructions ?Recorded ?Last Taken ?Type alprazolam 0.5 mg tablet 0.5 mg PO TID PRN PRN Anxiet y 07/16/20 03/02/25 History clopidogrel 75 mg tablet 75 mg PO DAILY anti platelet 07/16/20 03/01/25 History ergocalciferol (vitamin D2) 1,250 1.25 unit PO QWEEK P RN supplement 07/16/20 02/27/25 History mcg (50,000 unit) capsule furosemide 40 mg tablet 40 mg PO DAILY fluid 0 03/01/25 History gabapentin 600 mg tablet 600 mg PO BIDCM neuropathy 1 09/15/19 03/01/25 History hydrocodone-acetaminophen 5-325mg 1 ea PO BID PRN PRN Not Specified 07/16/20 03/01/25 History 5mg-325mg levothyroxine 50 mcg tablet 50 mcg PO DAILY thyroid 03/01/25 History potassium chloride 20 mEq 20 meq PO DAILYCM #30 tabs 1 09/18/19 03/01/25 Rx tablet,extended release(part/cryst) hydrochlorothiazide 25 mg tablet 25 mg PO DAILY BP 11/1903/01/25 History metoclopramide HCl 10 mg tablet 10 mg PO Q6H PRN nause a and 09/16/22 Unknown Rx (Reglan) vomiting #14 tabs amlodipine 5 mg tablet 5 mg PO DAILY #30 tabs 08/2203/01/25 Rx ramipril 10 mg capsule 20 mg PO DAILY BP 03/02/25 0 03/01/25 History rosuvastatin 10 mg tablet 10 mg PO DAILY cholesterol 0 03/02/25 03/01/25 History Allergy/AdvReac Type Severity Reaction Status Date / Time hydrochlorothiazide AdvReac Hyponatremi Verified 03/03/25 00:49 a Surgical History History of appendectomy History of cholecystectomy Social History Smoking Status: Never smoker ROS ROS Narrative Review of Systems: Constitutional: Patient admits to generalized weakness but she denies fever or chills. Eyes: Patient admits to difficulty reading prior to her fall but she denies diplopia or discharge from eyes. ENT: No runny nose, sore throat or ear pain. Resp: Patient denies shortness of breath or cough. CV: Patient denies chest pain, palpitations or heart racing. GI: Patient admits to watery diarrhea as per HPI. She denies abdominal pain, nausea or vomiting. : Patient denies dysuria or hematuria. MSK: Patient admits to generalized weakness with frequent falls but she denies arthralgias or myalgias. Skin: Patient has chronic venous stasis changes of both lower extremities. Psych: Patient denies symptoms of uncontrolled depression or anxiety. Neuro: Patient denies headache, paresthesias or focal neurologic deficits. Allergy: Patient denies lip swelling, tongue swelling or urticaria. Hematology: Patient denies easy bleeding or easy bruisability. Endocrinology: Patient denies polyuria, polydipsia, polyphagia or heat/cold intolerance. 14 point ROS otherwise negative except for positives noted above in HPI. Vital Signs Vital Signs Vital Signs: 03/02/25 17:48 03/02/25 19:55 03/02/25 19:55 Temperature 97.3 F L Temperature Source Temporal Pulse Rate 68 73 Respiratory Rate 18 12 Respiratory Effort Normal Non-Labored Respiratory Pattern Normal Blood Pressure 116/54 L 133/73 H Blood Pressure Mean 74 93 Pulse Ox 98 98 Oxygen Delivery Method Room Air Room Air 03/02/25 21:00 03/02/25 22:20 Temperature 99.7 F H Temperature Source Pulse Rate 69 90 Respiratory Rate 12 18 Respiratory Effort Respiratory Pattern Blood Pressure 121/56 H 122/83 H Blood Pressure Mean 77 96 Pulse Ox 99 98 Oxygen Delivery Method Room Air Weight Weight: 163 lb 9.328 oz Body Mass Index (BMI) 27.2 Physical Exam Const alert, oriented x3, no apparent distress, average body habitus and healthy appearing General Appearance: cooperative HEENT normocephalic, head/scalp atraumatic, hearing grossly normal bilaterally and moist oral mucous membranes Eyes PERRL and EOMs intact bilaterally Neck no lymphadenopathy and supple Resp normal respiratory effort, no retractions, no use of accessory muscles and clear to auscultation bilaterally Cardio regular rate and regular rhythm GI normal to inspection, nondistended, normoactive bowel sounds, soft to palpation, non-tender and non-distended Extremity Extremity Narrative: Patient has evidence of chronic venous stasis changes in her lower extremities plus multiple previously well-healed toe amputations. Skin Skin Narrative: Patient has evidence of chronic venous stasis changes in her lower extremities plus multiple previously well-healed toe amputations. Neuro oriented x3, CN's II-XII intact bilaterally, moves all extremities and no focal motor deficits Sensorium / Orientation: awake, alert, oriented to person, oriented to place and oriented to time Speech: speech normal Psych affect normal Results Medical Records Data Attestation: I reviewed the patient's medical records Lab / Micro Data Attestation: I reviewed the patient's lab results. 03/02/25 19:30 03/02/25 21:16 Labs: Laboratory Results - last 24 hr 03/02/25 19:30: WBC 5.8, RBC 4.32, Hgb 13.5, Hct 38.6, MCV 89.4, MCH 31.3, MCHC 35.0, RDW Std Deviation 38.5, RDW Coeff of [place] 11.9, Plt Count 183, MPV 12.0, Immature Gran % (Auto) 0.200, Neut % (Auto) 77.0 H, Lymph % (Auto) 14.2 L, [place] % (Auto) 8.0, Eos % (Auto) 0.3, Baso % (Auto) 0.3, Absolute Neuts (auto) 4.4, A bsolute Lymphs (auto) 0.82 L, Nucleated RBC % 0, Sodium Cancelled, Potassium Cancelled, Chloride Cancelled, Carbon Dioxide Cancelled, Anion Gap Cancelled, BUN Cancelled, Creatinine Cancelled, Estim Creat Clear Calc Cancelled, Est GFR (MDRD) Non-Af Cancelled, BUN/Creatinine Ratio Cancelled, Glucose Cancelled, Calcium Cancelled, Total Bilirubin Cancelled, AST Cancelled, ALT Cancelled, Alkaline Phosphatase Cancelled, Total Protein Cancelled, Albumin Cancelled, Globulin Cancelled, Albumin/Globulin Ratio Cancelled 03/02/25 19:55: Urine Color Straw, Urine Clarity Cloudy, Urine pH 5.0, Ur Specific [place] 1.020, Urine Protein 15 H, Urine Glucose (UA) 100 H, Urine Ketones Negative, Urine Occult Blood 10 H, Urine Nitrite Negative, Urine Bilirubin Negative, Urine Urobilinogen Normal, Ur Leukocyte Esterase 500 H, Urine RBC 0 SEEN, Urine WBC >100 SEEN, Ur Squamous Epith Cells 0 SEEN, Urine Bacteria 4+, Hyaline Casts 5-10 SEEN, Urine Mucus 0 SEEN 03/02/25 21:16: Sodium 125 L, Potassium 5.1, Chloride 93 L, Carbon Dioxide 22.8, Anion Gap 9, BUN 14, Creatinine 0.83, Estim Creat Clear Calc 58.15, Est GFR (MDRD) Non-Af 73, BUN/Creatinine Ratio 16.3, Glucose 196 H, Calcium 8.9, Total Bilirubin 0.38, AST 30, ALT 15, Alkaline Phosphatase 58, Total Protein 6.2, Albumin 3.7, Globulin 2.5, Albumin/Globulin Ratio 1.5 Imaging Radiology Impression Brain CT 03/02/25 19:17 IMPRESSION: No acute intracranial finding. Reading Location: [facility] Assessment & Plan Assessment/Plan (1) Acute hyponatremia: (2) Adverse drug reaction: QUALIFIERS: Encounter type: initial encounter Qualified Code(s): T50.905A - Adverse effect of unspecified drugs, medicaments and biological substances, initial encounter (3) Acute cystitis without hematuria: (4) Low grade fever: (5) Watery diarrhea: (6) Generalized weakness: (7) Ambulatory dysfunction: (8) Frequent falls: (9) Overweight (BMI 25.0-29.9): PLAN: Plan 1. Acute Hyponatremia of 125 mmol/L present on admission - Admit to general medical floor. Continue NS IV fluid and recheck in a.m. with goal to improve no more than 8-10 mmol/L per 24 hours. Check urine and serum osmolality. 2. Adverse Drug Reaction to hydrochlorothiazide likely causing #1 - Stop hydrochlorothiazide and add to list of allergies to prevent recurrence. 3. UA positive for Acute Cystitis; without hematuria with low-grade Fever of 99.7 degrees Fahrenheit noted shortly after admission complicating #1 & #2 - Start IV ceftriaxone and await culture and sensitivity data. Give acetaminophen as needed for pain or fever. 4. Watery diarrhea exacerbating #1 - #3 - Check stool studies and place on enteric precautions until infectious etiology ruled out. 5. Generalized Weakness and Ambulatory Dysfunction with Frequent Falls due to #1 - #4 - PT/OT and Case Management consult and treat on rounds in a.m. for further recommendations with help appreciated in advance. 6. Overweight; with a BMI of 27.2 this admission adding to the burden of disease outlined from #1 - #5 - Weight loss will be recommended. Check TSH. 7. Essential hypertension; on amlodipine, ramipril, as needed furosemide and hydrochlorothiazide - Hold hydrochlorothiazide as outlined in #2. Continue amlodipine and ramipril as previous plus give as needed IV hydralazine for systolic blood pressure greater than 160 mmHg. 8. Recently diagnosed atrial fibrillation; on apixaban - Stable 9. Hypothyroidism; on levothyroxine - Maintain levothyroxine as previous plus check TSH. 10. Hyperlipidemia; on rosuvastatin - Resume rosuvastatin as before plus check Lipid Profile. 11. Neuropathy; on gabapentin twice daily - Current therapy to continue. 12. Generalized anxiety; on alprazolam 3 times daily as needed - Continue prn alprazolam. 13. DVT prophylaxis - Patient on apixaban for #8 which will be continued. Total time: Approximately (but not less than) 75 minutes. Charges/Coding Visit Charges Inpatient E&M: 80137 Init Hosp L3
[2025-03-02 23:00] VITALS: BP 136/66; PULSE 90; RESP 17; O2SAT 98
[2025-03-02 23:26] LABS: CPK Total, Creatine Kinase 574 U/L (24-195); Magnesium 2.2 mg/dL (1.5-2.2)
[2025-03-02 23:34] LABS: Osmolality, Serum 273 mOsm/KG (280-301)
--- OUTSIDE RECORDS SUMMARY | 2025-03-02 23:36 | XMS RPT_ITS | CCD ---
Author Organization [facility] CliniSyor Care Team Providers Care Hand Rigger Name Role Phone MATHIEU ROLAND DO Primary Care Physician [phone] Dr. Mathieu Roland Primary Care Provider Saunders DUMPSTER DRIVER, DUMPSTER DRIVER-C Milad Attending Provider [phone] Saunders DUMPSTER DRIVER, DUMPSTER DRIVER-C Milad Other Provider 1([facility])-[phone] Mathieu Roland Primary Care Provider Saunders DUMPSTER DRIVER, DUMPSTER DRIVER-C Milad Attending Provider [phone] Saunders DUMPSTER DRIVER, DUMPSTER DRIVER-C Milad Other Provider 1([facility])-[phone] Mathieu Roland Primary Care Provider Saunders DUMPSTER DRIVER, DUMPSTER DRIVER-C Milad Attending Provider [phone] Saunders DUMPSTER DRIVER, DUMPSTER DRIVER-C Milad Other Provider 1([facility])-[phone] Mathieu Roland Primary Care Provider Saunders DUMPSTER DRIVER, DUMPSTER DRIVER-C Milad Attending Provider [phone] Saunders DUMPSTER DRIVER, DUMPSTER DRIVER-C Milad Other Provider 1([facility])-[phone] Rafael Perez Emergency Provider Dr. Milad Reynolds Admit Provider Dr. Milad Reynolds Attending Provider Dr. Milad Reynolds Other Provider Dr. Tiffany Hairston Other Provider Dr. Paula Naranjo Attending Provider Dr. Paula Naranjo Other Provider 1([facility])[phone] Gibson Ruiz Other Provider 1([facility])[phone] Dr. Mathieu Roland Primary Care Provider Chip DUMPSTER DRIVER, DUMPSTER DRIVER-C Milad Attending Provider Chip DUMPSTER DRIVER, DUMPSTER DRIVER-C Milad Other Provider Dr. Jonny Lynch Attending Provider Dr. Rafael Angela Referring Provider LUAN DO, MATHIEU Primary Care Physician Luan, Mathieu Primary Care Unavailable Jean-Paul Suarez Attending Unavailable Whitney Ott Attending Unavailable Luan, Mathieu Primary Care Unavailable Edin Schmidt Attending Unavailable Luan, Mathieu Primary Care Unavailable Edin Schmidt Attending Unavailable Luan, Mathieu Primary Care Unavailable MARQUISE LEHMAN MD Attending Unavaila ble LUAN DO, MATHIEU Primary Care Unavailable LUAN DO, MATHIEU Attending Unavailable LUAN DO, MATHIEU Primary Care Unavailable LUAN DO, MATHIEU Attending Unavailable LUAN DO, MATHIEU Primary Care Unavailable MARQUISE LEHMAN MD Attending Unavaila ble LUAN DO, MATHIEU Primary Care Unavailable MARQUISE LEHMAN MD Attending Unavaila ble LUAN DO, MATHIEU Primary Care Unavailable LUAN DO, MATHIEU Primary Care Unavailable MARQUISE LEHMAN MD Attending Unavaila ble ROMSHASHANK YOUNG, DR BARBA Attending Unavailable LUAN DO, MATHIEU Primary Care Unavailable LUAN DO, MATHIEU Attending Unavailable LUAN DO, MATHIEU Primary Care Unavailable LUAN DO, MATHIEU Attending Unavailable LUAN DO, MATHIEU Primary Care Unavailable LUAN DO, MATHIEU Attending Unavailable LUAN DO, MATHIEU Primary Care Unavailable LUAN DO, MATHIEU Primary Care Unavailable LUAN DO, MATHIEU Attending Unavailable RADHA YOUNG, DR BARBA Attending Unavailable LUAN DO, MATHIEU Primary Care Unavailable RADHA YOUNG, DR BARBA Attending Unavailable LUAN DO, MATHIEU Primary Care Unavailable LUAN DO, MATHIEU Primary Care Unavailable MARQUISE LEHMAN MD Attending Unavaila ble LUAN DO, MATHIEU Attending Unavailable LUAN DO, MATHIEU Primary Care Unavailable MARQUISE LEHMAN MD Attending Unavaila ble LUAN DO, MATHIEU Primary Care Unavailable DR JAMESON GARCIA DO Attending Unavailable MATHIEU ROLAND DO Primary Care Unavailable Medications Current Medications Medication Drug Class(es) Dates Sig (Normalized) Sig (Original) ALPRAZolam 0.5 mg oral tablet (20 sources) Benzodiazepine Start: 12-08-2024 Xanax 0.5 mg oral tablet Dose : 0.5 mg = 1 tab(s), Oral, TID, PRN as needed for anxiety, # 90 tab(s), 2 Refill(s), [id number], Anxiety Long-term use of high-risk medication, 165, cm, 12/08/24 16:01:00 EDT, Height, 73.7, kg, 12/08/24 15:44:00 EDT, Dosing Weight Start Date: 12/08/24 Status: Ordered Quantity: 90.0 Unit: tab(s) Repeat number: 3 Indications: Other assisted (current) drug therapy; Anxiety disorder, unspecified; Start: 06-15-2024 Xanax 0.5 mg o ral tablet Dose : 0.5 mg = 1 tab(s), Oral, TID, PRN as needed for anxiety, Do not fill until June 28, 2024, # 90 tab(s), 2 Refill(s), [id number], Anxiety, 162.6, cm, 06/15/24 14:27:00 EDT, Height, 76.6, kg, 03/17/24 15:31:00 EDT, Dosing Weight Start Date: 06/15/24 Status: Ordered Start: 12-10-2023 Xanax 0.5 mg o ral tablet Dose : 0.5 mg = 1 tab(s), Oral, TID, PRN as needed for anxiety, # 90 tab(s), 2 Refill(s), Pharmacy: [facility] #[id number], Anxiety, 165.5, cm, 12/10/23 15:09:00 EDT, Height, 79.8, kg, 12/10/23 15:09:00 EDT, Dosing Weight Start Date: 12/10/23 Status: Ordered Start: 09-23-2023 End: 09-30-2023 Xanax 0.5 mg oral tablet Dos e : 0.5 mg = 1 tab(s), Oral, TID, PRN as needed for anxiety, Short-term fill until next appointment, # 90 tab(s), 2 Refill(s), [facility]: [facility][id number], Anxiety, 165, cm, 09/01/23 13:55:00 EST, Height, 80.7, kg, 09/01/23 13:47:00 EST, Dosing Weight Start Date: 09/23/23 Stop Date: 09/30/23 Status: Ordered Start: 06-12-2023 End: 09-10-2023 Xanax 0.5 mg oral tablet Dos e : 0.5 mg = 1 tab(s), Oral, TID, PRN as needed for anxiety, Do not fill until June 19, 2023, # 90 tab(s), 2 Refill(s), [facility]: [facility], Anxiety, 165, cm, 03/18/23 16:25:00 EDT, Height, 79.9, kg, 06/12/23 16:31:00 EDT, Dosing Weight Start Date: 06/12/23 Stop Date: 09/10/23 Status: Ordered Start: 09-16-2022 End: 03-16-2023 Xanax 0.5 mg oral tablet Dos e : 0.5 mg = 1 tab(s), Oral, TID, PRN PRN as needed for anxiety, # 90 tab(s), 2 Refill(s), Pharmacy: [facility] #[id number], Anxiety, 164, cm, 12/16/22 15:44:00 EDT, Height, 81.4, kg, 12/16/22 15:44:00 EDT, Dosing Weight Start Date: 12/16/22 Stop Date: 03/16/23 Status: Ordered Start: 07-16-2020 End: 06-25-2022 Xanax 0.5 mg oral tablet Dos e : 0.5 mg = 1 tab(s), Oral, TID, PRN as needed for anxiety, # 90 tab(s), 2 Refill(s), Pharmacy: [facility] #[id number], Anxiety, 165, cm, 03/27/22 16:49:00 EDT, Height, 83.7, kg, 03/27/22 16:39:00 EDT, Dosing Weight Start Date: 03/27/22 Stop Date: 06/25/22 Status: Ordered amitriptyline hydrochloride 10 mg oral tablet (12 sources) Tricyclic Antidepressant Start: 03-17-2024 amitriptyline 10 mg oral tablet Dose : 10 mg = 1 tab(s), Oral, qHS, Aware of patient age. Patient tolerates medication well and this medication works for her., # 90 tab(s), 1 Refill(s), Pharmacy: [facility] #[id number], Anxiety Trouble in sleeping, 162, cm, 03/17/24 15:31:00 EDT, Height, kg, 03/17/24 15:31:00 EDT, Dosing Weight Start Date: 03/17/24 Status: Ordered Start: 09-23-2023 amitriptyline 10 mg oral tablet Dose : 10 mg = 1 tab(s), Oral, qHS, Aware of patient age. Patient tolerates medication well and this medication works for her., # 90 tab(s), 1 Refill(s), Pharmacy: [facility] #[id number], Anxiety Trouble in sleeping, 165, cm, 09/01/23 13:55:00 EST, Height, kg, 09/01/23 13:47:00 EST, Dosing Weight Start Date: 09/23/23 Status: Ordered Start: 03-18-2023 amitriptyline 10 mg oral tablet Dose : 10 mg = 1 tab(s), Oral, qHS, Aware of patient age. Patient tolerates medication well and this medication works for her., # 90 tab(s), 1 Refill(s), Pharmacy: [facility] #[id number], Anxiety Recurrent major depression, 165, cm, 03/18/23 16:25:00 EDT, Height, kg, 03/18/23 16:09:00 EDT, Dosing Weight Start Date: 03/18/23 Status: Ordered Start: 09-16-2022 amitriptyline 10 mg oral tablet Dose : 10 mg = 1 tab(s), Oral, qHS, # 90 tab(s), 1 Refill(s), Pharmacy: [facility] #[id number], Anxiety Depressive disorder, 164.5, cm, 09/16/22 16:07:00 EST, Height, kg, 09/16/22 16:07:00 EST, Dosing Weight Start Date: 09/16/22 Status: Ordered Start: 04-16-2022 amitriptyline 10 mg oral tablet Dose : 10 mg = 1 tab(s), Oral, qHS, New prescription, # 90 tab(s), 1 Refill(s), Pharmacy: [facility] #[id number], Anxiety Depressive disorder, 165, cm, 04/16/22 14:02:00 EDT, Height, kg, 04/16/22 13:55:00 EDT, Dosing Weight Start Date: 04/16/22 Status: Ordered Start: 10-25-2021 amitriptyline 10 mg oral tablet Dose : 10 mg = 1 tab(s), Oral, qHS, New prescription, # 30 tab(s), 5 Refill(s), Pharmacy: [facility] Tension headache Anxiety, 166.37, cm, 10/25/21 14:26:00 EST, Height, kg, 10/25/21 14:26:00 EST, Dosing Weight Start Date: 10/25/21 Status: Ordered amLODIPine 10 mg oral tablet (4 sources) Dihydropyridine Calcium Channel Doris Start: 10-20-2024 amLODIPine 10 mg ora l tablet Dose : 10 mg = 1 tab(s), Oral, qDay, # 90 tab(s), 3 Refill(s), Pharmacy: [facility] #[id number], Uncontrolled hypertension Hypertension associated with type 2 diabetes mellitus, 165, cm, 10/20/24 16:14:00 EST, Height, kg, 10/20/24 16:02:00 EST, Dosing Weight Start Date: 10/20/24 Status: Ordered Quantity: 90.0 Unit: tab(s) Repeat number: 4 Indications: Essential (primary) hypertension; Type 2 diabetes mellitus with other circulatory complications; Start: 12-10-2023 amLODIPine 10 mg oral tablet Dose : 10 mg = 1 tab(s), Oral, qDay, # 90 tab(s), 3 Refill(s), Pharmacy: [facility] #[id number], Uncontrolled hypertension Hypertension associated with type 2 diabetes mellitus, 165.5, cm, 12/10/23 15:09:00 EDT, Height, kg, 12/10/23 15:09:00 EDT, Dosing Weight Start Date: 12/10/23 Status: Ordered Start: 09-01-2023 amLODIPine 10 mg oral tablet Dose : 10 mg = 1 tab(s), Oral, qDay, # 90 tab(s), 1 Refill(s), [facility]acy: [facility] #[id number], Uncontrolled hypertension, 165, cm, 09/01/23 13:55:00 EST, Height, kg, 09/01/23 13:47:00 EST, Dosing Weight Start Date: 09/01/23 Status: Ordered amoxicillin 875 mg / clavulanate 125 mg oral tablet (7 sources) Penicillin-class Antibacterial Start: 01-17-2022 take 1 tablet by mouth every twelve hours Amoxicillin-Pot Clavulanate Active 1 TABLET PO Q12H January 16, 2022 11:00pm Start: 11-06-2021 take 1 tablet by yanelis th twice daily Amoxicillin-Pot Clavulanate Active 1 TABLET PO TWICE A DAY November 06, 2021 9:22am apixaban 5 mg oral tablet (6 sources) Factor Xa Inhibitor Start: 02-09-2025 End: 05-10-2025 apixaban 5 mg oral tablet Dose : 5 mg = 1 tab(s), Oral, BID, # 60 tab(s), 2 Refill(s), Pharmacy: [facility]/pharmacy #[id number], 165, cm, 02/09/25 13:33:00 EDT, Height, 71, kg, 02/09/25 13:33:00 EDT, Dosing Weight Start Date: 02/09/25 Stop Date: 05/10/25 Status: Ordered Quantity: 60.0 Unit: tab(s) Repeat number: 3 Start: 07-19-2020 take 2.5 mg by mouth twice elicia ly Apixaban Active 2.5 MG PO TWICE A DAY July 19, 2020 12:31pm aspirin 81 mg oral tablet (6 sources) Platelet Aggregation Inhibitor, Nonsteroidal Anti-inflammatory Drug Start: 06-22-2017 take 1 dose by mouth once daily aspirin Dose : 81 mg =, Oral, qDay, 0 Refill(s) Start Date: 06/22/17 Status: Ordered cephalexin 500 mg oral capsule (1 source) Cephalosporin Antibacterial Start: 07-19-2021 End: 08-02-2021 cephalexin 500 mg oral capsule Dose : 500 mg = 1 cap(s), Oral, QID, Drink plenty of fluids., X 14 day(s), # 56 cap(s), 0 Refill(s), 08/02/21 17:25:00 EST, Pharmacy: [facility] 165.1, cm, 06/25/21 16:02:00 EDT, Height, 83.7, kg, 06/25/21 16:02:00 EDT, Dosing Weight Start Date: 07/19/21 Stop Date: 08/02/21 Status: Ordered clopidogrel 75 mg oral tablet (20 sources) [id number] Platelet Inhibitor Start: 03-17-2024 clopidogrel 75 mg oral tablet Dose : 75 mg = 1 tab(s), Oral, qDay, # 90 tab(s), 1 Refill(s), Pharmacy: [facility]/pharmacy #[id number], Hypertension PAD - Peripheral arterial disease, 162, cm, 03/17/24 15:31:00 EDT, Height, kg, 03/17/24 15:31:00 EDT, Dosing Weight Start Date: 03/17/24 Status: Ordered Start: 09-23-2023 clopidogrel 75 mg oral tablet Dose : 75 mg = 1 tab(s), Oral, qDay, # 90 tab(s), 1 Refill(s), Pharmacy: [facility] #[id number], Hypertension PAD - Peripheral arterial disease, 165, cm, 09/01/23 13:55:00 EST, Height, kg, 09/01/23 13:47:00 EST, Dosing Weight Start Date: 09/23/23 Status: Ordered Start: 03-18-2023 clopidogrel 75 mg oral tablet Dose : 75 mg = 1 tab(s), Oral, qDay, # 90 tab(s), 1 Refill(s), Pharmacy: [facility] #[id number], Hypertension PAD - Peripheral arterial disease, 165, cm, 03/18/23 16:25:00 EDT, Height, kg, 03/18/23 16:09:00 EDT, Dosing Weight Start Date: 03/18/23 Status: Ordered Start: 07-16-2020 clopidogrel 75 mg oral tablet Dose : 75 mg = 1 tab(s), Oral, qDay, # 90 tab(s), 1 Refill(s), Pharmacy: [facility] #[id number], Hypertension PAD - Peripheral arterial disease, 164.5, cm, 09/16/22 16:07:00 EST, Height, kg, 09/16/22 16:07:00 EST, Dosing Weight Start Date: 09/16/22 Status: Ordered colesevelam hydrochloride 625 mg oral tablet (1 source) Bile Acid Sequestrant Start: 07-10-2022 colesevelam 625 mg oral tablet Dose : 1,875 mg = 3 tab(s), Oral, BID, # 180 tab(s), 2 Refill(s), [facility][id number], 165, cm, 07/10/22 14:46:00 EST, Height Start Date: 07/10/22 Status: Ordered doxycycline hyclate 100 mg oral capsule (7 sources) Tetracycline-class Drug Start: 01-17-2022 take 100 mg by mouth twice daily Doxycycline Hyclate Active 100 MG PO TWICE A DAY January 16, 2022 11:00pm Start: 11-11-2021 take 100 mg by mouth twice daily Doxycycline Monohydrate Active 100 MG PO TWICE A DAY November 11, 2021 7:37pm ergocalciferol 1.25 mg oral capsule (13 sources) Provitamin D2 Compound Start: 07-16-2020 take 54177 [IU] by mouth every week Ergocalciferol (Vitamin D2) Active 84007 UNIT PO EVERY WEEK July 16, 2020 5:38pm Start: 07-16-2020 take 1.25 [IU] by mo uth every week Ergocalciferol (Vitamin D2) Active 1.25 UNIT PO EVERY WEEK July 16, 2020 12:00am takes Fridays gabapentin 600 mg oral tablet (20 sources) Anti-epileptic Agent Start: 09-15-2024 End: 03-14-2025 gabapentin 600 mg oral tablet Dose : 600 mg = 1 tab(s), Oral, BID, Discontinue amitriptyline prescription please, # 180 tab(s), 1 Refill(s), Pharmacy: [facility]/pharmacy #[id number], Neuropathy Chronic pain, 165, cm, 09/15/24 14:32:00 EST, Height, 74.9, kg, 09/15/24 14:32:00 EST, Dosing Weight Start Date: 09/15/24 Stop Date: 03/14/25 Status: Ordered Quantity: 180.0 Unit: tab(s) Repeat number: 2 Indications: Other chronic pain; Polyneuropathy, unspecified; Start: 09-23-2023 End: 09-13-2024 gabapentin 600 mg oral table t Dose : 600 mg = 1 tab(s), Oral, BID, # 180 tab(s), 1 Refill(s), Pharmacy: [facility]/pharmacy #[id number], Neuropathy Type 2 diabetes mellitus with complications, 162, cm, 03/17/24 15:31:00 EDT, Height, 76.6, kg, 03/17/24 15:31:00 EDT, Dosing Weight Start Date: 03/17/24 Stop Date: 09/13/24 Status: Ordered Start: 07-16-2020 End: 09-14-2023 gabapentin 600 mg oral table t Dose : 600 mg = 1 tab(s), Oral, BID, # 180 tab(s), 1 Refill(s), Pharm[facility]: [facility] #[id number], Neuropathy Controlled type 2 diabetes mellitus, 165, cm, 03/18/23 16:25:00 EDT, Height, 81.1, kg, 03/18/23 16:09:00 EDT, Dosing Weight Start Date: 03/18/23 Stop Date: 09/14/23 Status: Ordered glimepiride 2 mg oral tablet (19 sources) Sulfonylurea Start: 03-24-2022 glimepiride 2 mg oral tablet Dose : 2 mg = 1 tab(s), Oral, qDayM, # 90 tab(s), 1 Refill(s), Pharmacy: [facility] #[id number], 165, cm, 03/06/22 14:46:00 EDT, Height, kg, 03/06/22 14:46:00 EDT, Dosing Weight Start Date: 03/24/22 Status: Ordered Start: 07-16-2020 take 1 tablet by yanelis th once daily in the morning glimepiride 4 mg oral tablet See Instructions, take 1 tablet by mouth every morning, # 90 tab(s), 1 Refill(s), Pharmacy: [facility] 165, cm, 01/06/22 14:05:00 EDT, Height, kg, 01/06/22 14:05:00 EDT, Dosing Weight Start Date: 01/30/22 Status: Ordered 3 ml insulin detemir 100 unt/ml pen injector (19 sources) Insulin Analog Start: 11-27-2021 inject 1 dose by subcutaneous injection once daily Levemir FlexTouch 100 units/mL 3 mL Pen Dose : 28 unit(s) =, Subcutaneous, Daily, inject 28 units subcutaneously daily, # 15 mL, 3 Refill(s), Pharmacy: [facility] [address] 166.37, cm, 10/25/21 14:26:00 EST, Height, Dosing Weight Start Date: 11/27/21 Status: Ordered Start: 07-22-2021 inject 1 dose by sub cutaneous injection once daily Levemir FlexTouch 100 units/mL 3 mL Pen Dose : 28 unit(s) =, Subcutaneous, Daily, inject 28 units subcutaneously daily, # 15 mL, 3 Refill(s), other reason (Rx), Dosing Weight Start Date: 07/22/21 Status: Ordered Start: 06-25-2021 inject 1 dose by sub cutaneous injection once daily Levemir FlexTouch 100 units/mL 3 mL Pen Dose : 38 unit(s) =, Subcutaneous, Daily, inject 38 units subcutaneously daily, # 15 mL, 3 Refill(s), Pharmacy: [facility] [address] 165.1, cm, 06/25/21 16:02:00 EDT, Height, kg, 06/25/21 16:02:00 EDT, Dosing Weight Start Date: 06/25/21 Status: Ordered Start: 01-29-2021 inject 1 dose by sub cutaneous injection once daily Levemir FlexTouch 100 units/mL 3 mL Pen Dose : 38 unit(s) =, Subcutaneous, Daily, inject 44 units subcutaneously daily, # 15 mL, 3 Refill(s), Pharmacy: [facility] [address] 164.5, cm, 01/24/21 15:33:00 EDT, Height, kg, 01/24/21 15:33:00 EDT, Dosing Weight Start Date: 01/29/21 Status: Ordered Start: 07-16-2020 inject 28 [IU] by simms bcutaneous injection once daily Insulin Detemir U-100 Active 28 UNIT SQ DAILY July 16, 2020 12:00am 3 ml insulin glargine 100 unt/ml pen injector (6 sources) Insulin Analog Start: 02-22-2024 inject 1 dose by subcutaneous injection once daily at bedtime Lantus Solostar Pen 100 units/mL 3 mL Pen Dose : 10 unit(s) =, Subcutaneous, qHS, inject 12 units subcutaneously at bedtime, # 15 mL, 1 Refill(s), [facility]: [facility] #[id number], 165.5, cm, 12/10/23 15:09:00 EDT, Height, kg, 12/10/23 15:09:00 EDT, Dosing Weight Start Date: 02/22/24 Status: Ordered Start: 06-25-2023 inject 1 dose by sub cutaneous injection once daily at bedtime Lantus Solostar Pen 100 units/mL 3 mL Pen Dose : 10 unit(s) =, Subcutaneous, qHS, inject 12 units subcutaneously at bedtime, # 15 mL, 1 Refill(s), [facility]acy: [facility] #[id number], 165, cm, 06/25/23 15:16:00 EDT, Height, kg, 06/25/23 15:16:00 EDT, Dosing Weight Start Date: 06/25/23 Status: Ordered Start: 12-16-2022 Lantus Solosta r Pen 100 units/mL 3 mL Pen inject 12 units subcutaneously at bedtime Start Date: 12/16/22 Status: Ordered Start: 09-18-2022 inject 1 dose by sub cutaneous injection once daily at bedtime Basaglar 100 unit(s)/mL 3 mL KwikPen Dose : 20 unit(s) =, Subcutaneous, qHS, # 15 mL, 3 Refill(s), [facility]: [facility] #[id number], 164.5, cm, 09/16/22 16:07:00 EST, Height Start Date: 09/18/22 Status: Ordered levothyroxine sodium 0.05 mg oral tablet (20 sources) l-Thyroxine Start: 01-16-2025 take 1 tablet by mouth once daily levothyroxine 50 mcg (0.05 mg) oral tablet See Instructions, take 1 tablet by mouth once daily, # 90 tab(s), 1 Refill(s), Pharmacy: [facility]/pharmacy #[id number], 165, cm, 01/12/25 15:01:00 EDT, Height, kg, 05/15/25 15:01:00 EDT, Dosing Weight Start Date: 01/16/25 Status: Ordered Quantity: 90.0 Unit: tab(s) Repeat number: 2 Start: 09-07-2024 take 1 tablet by yanelis th once daily levothyroxine 50 mcg (0.05 mg) oral tablet See Instructions, take 1 tablet by mouth once daily, # 90 tab(s), 1 Refill(s), Pharmacy: [facility]/pharmacy #[id number], 165, cm, 07/07/24 15:39:00 EST, Height, kg, 07/07/24 15:39:00 EST, Dosing Weight Start Date: 09/07/24 Status: Ordered Quantity: 90.0 Unit: tab(s) Repeat number: 2 Start: 12-10-2023 take 1 tablet by yanelis th once daily levothyroxine 50 mcg (0.05 mg) oral tablet See Instructions, take 1 tablet by mouth once daily, # 90 tab(s), 2 Refill(s), Pharmacy: [facility] #[id number], 165.5, cm, 12/10/23 15:09:00 EDT, Height, kg, 12/10/23 15:09:00 EDT, Dosing Weight Start Date: 12/10/23 Status: Ordered Start: 09-18-2022 take 1 tablet by yanelis th once daily levothyroxine 50 mcg (0.05 mg) oral tablet See Instructions, take 1 tablet by mouth once daily, # 90 tab(s), 2 Refill(s), Pharmacy: [facility] #[id number], 164.5, cm, 09/16/22 16:07:00 EST, Height, kg, 09/16/22 16:07:00 EST, Dosing Weight Start Date: 09/18/22 Status: Ordered Start: 09-19-2021 take 1 tablet by yanelis th once daily levothyroxine 50 mcg (0.05 mg) oral tablet See Instructions, take 1 tablet by mouth once daily, # 90 tab(s), 2 Refill(s), Pharmacy: [facility] 165, cm, 09/17/21 15:34:00 EST, Height, kg, 09/17/21 15:34:00 EST, Dosing Weight Start Date: 09/19/21 Status: Ordered Start: 03-25-2021 take 1 tablet by yanelis once daily levothyroxine 50 mcg (0.05 mg) oral tablet See Instructions, take 1 tablet by mouth once daily, # 90 tab(s), 1 Refill(s), [facility] [address] 165.1, cm, 03/12/21 15:19:00 EDT, Height, kg, 03/12/21 15:19:00 EDT, Dosing Weight Start Date: 03/25/21 Status: Ordered Start: 07-16-2020 take 50 ug by mouth once daily Levothyroxine Active 50 MCG PO DAILY July 16, 2020 12:00am metoclopramide 10 mg oral tablet (8 sources) Dopamine-2 Receptor Antagonist Start: 09-16-2022 metoclopramide 10 mg oral tablet Dose : 10 mg = 1 tab(s), PRN as needed, 0 Refill(s) Start Date: 09/16/22 Status: Ordered ondansetron 4 mg oral tablet (18 sources) Serotonin-3 Receptor Antagonist Start: 01-10-2022 Zofran 4 mg oral tab let Dose : 4 mg = 1 tab(s), Oral, q6h, PRN Nausea/Vomiting, # 20 tab(s), 0 Refill(s), [facility] [address] 165, cm, 01/06/22 14:05:00 EDT, Height Start Date: 01/10/22 Status: Ordered Quantity: 20.0 Unit: tab(s) Repeat number: 1 Start: 07-13-2020 Zofran 4 mg or al tablet Dose : 4 mg = 1 tab(s), Oral, q6h, PRN Nausea/Vomiting, # 20 tab(s), 0 Refill(s), Pharmacy: [facility] [address] Nausea, 164.2, cm, 06/22/20 14:57:00 EDT, Height, kg, 06/22/20 14:57:00 EDT, Dosing Weight Start Date: 07/13/20 Status: Ordered Potassium Chloride (20 sources) Start: 02-22-2025 End: 02-25-2025 Potassium Chloride (Eqv-Klor -Con M20) 20 mEq oral tablet, extended release Dose : 20 mEq = 1 tab(s), Oral, BID, do not crush or chew. with a full glass of water and food, X 3 day(s), # 6 tab(s), 0 Refill(s), 02/25/25 3:10:00 PM EDT, Pharmacy: [facility]/pharmacy #[id number], Hypertension, 165, cm, 02/09/25 13:33:00 EDT, Height, kg, 02/09/25 13:33:00 EDT, Dosing Weight Start Date: 02/22/25 Stop Date: 02/25/25 Status: Ordered Quantity: 6.0 Unit: tab(s) Repeat number: 1 Indications: Essential (primary) hypertension; Start: 04-16-2022 take 1 tablet by yanelis th once daily Potassium Chloride (Rmw-Wlzq-Mps M20) 20 mEq oral tablet, extended release See Instructions, take 1 tablet by mouth once daily with FUROSEMIDE, # 90 tab(s), 1 Refill(s), Pharmacy: [facility] #[id number], Hypertension, 165, cm, 04/16/22 14:02:00 EDT, Height, kg, 04/16/22 13:55:00 EDT, Dosing Weight Start Date: 04/16/22 Status: Ordered Quantity: 90.0 Unit: tab(s) Repeat number: 2 Indications: Essential (primary) hypertension; Start: 04-16-2022 take 1 tablet by yanelis th once daily Potassium Chloride (Ssw-Twtz-Joh M20) 20 mEq oral tablet, extended release See Instructions, take 1 tablet by mouth once daily with FUROSEMIDE, # 90 tab(s), 1 Refill(s), Pharmacy: [facility] #[id number], Hypertension, 165, cm, 04/16/22 14:02:00 EDT, Height, kg, 04/16/22 13:55:00 EDT, Dosing Weight Start Date: 04/16/22 Status: Ordered Start: 02-04-2022 take 1 tablet by yanelis th once daily Potassium Chloride (Xec-Hbut-Vre M20) 20 mEq oral tablet, extended release See Instructions, take 1 tablet by mouth once daily with FUROSEMIDE, # 30 tab(s), 1 Refill(s), [facility]: [facility] 165, cm, 01/06/22 14:05:00 EDT, Height, kg, 01/06/22 14:05:00 EDT, Dosing Weight Start Date: 02/04/22 Status: Ordered Start: 12-11-2021 take 1 tablet by yanelis th once daily Potassium Chloride (Utd-Jtgq-Sls M20) 20 mEq oral tablet, extended release See Instructions, take 1 tablet by mouth once daily with FUROSEMIDE, # 30 tab(s), 1 Refill(s), [facility] [address] [id number], cm, 10/25/21 14:26:00 EST, Height, kg, 10/25/21 14:26:00 EST, Dosing Weight Start Date: 12/11/21 Status: Ordered Start: 09-30-2021 take 1 tablet by yanelis th once daily Potassium Chloride (Ogf-Ooxq-Jkf M20) 20 mEq oral tablet, extended release See Instructions, take 1 tablet by mouth once daily with FUROSEMIDE, # 30 tab(s), 1 Refill(s), [facility] [address] 165, cm, 09/17/21 15:34:00 EST, Height, kg, 09/17/21 15:34:00 EST, Dosing Weight Start Date: 09/30/21 Status: Ordered Start: 04-25-2021 take 1 tablet by yanelis th once daily Potassium Chloride (Uay-Cpai-Lux M20) 20 mEq oral tablet, extended release See Instructions, take 1 tablet by mouth once daily with FUROSEMIDE, # 30 tab(s), 1 Refill(s), [facility] [address] [address] 165.1, cm, 03/12/21 15:19:00 EDT, Height, kg, 03/12/21 15:19:00 EDT, Dosing Weight Start Date: 04/25/21 Status: Ordered Start: 07-19-2020 take 20 mEq by mouth once daily at mealtime Potassium Chloride Active 20 MEQ PO DAILY WITH MEALS July 19, 2020 12:00am Take with furosemide/Lasix ramipril 10 mg oral capsule (20 sources) Angiotensin Converting Enzyme Inhibitor Start: 02-23-2025 End: 08-22-2025 ramipril 10 mg oral capsule Dose : 20 mg = 2 cap(s), Oral, qDay, # 60 cap(s), 5 Refill(s), Pharmacy: [facility]/pharmacy #[id number], HTN (hypertension), 165, cm, 02/23/25 14:08:00 EDT, Height, kg, 02/23/25 14:08:00 EDT, Dosing Weight Start Date: 02/23/25 Stop Date: 08/22/25 Status: Ordered Quantity: 60.0 Unit: cap(s) Repeat number: 6 Indications: Essential (primary) hypertension; Start: 12-28-2024 ramipril 10 mg oral capsule Dose : 10 mg = 1 cap(s), Oral, qDay, # 30 cap(s), 5 Refill(s), Pharmacy: [facility]/pharmacy #[id number], 165, cm, 12/08/24 16:01:00 EDT, Height, kg, 12/08/24 15:44:00 EDT, Dosing Weight Start Date: 12/28/24 Status: Ordered Quantity: 30.0 Unit: cap(s) Repeat number: 6 Start: 07-13-2024 ramipril 10 mg oral capsule Dose : 10 mg = 1 cap(s), Oral, qDay, # 30 cap(s), 0 Refill(s), Pharmacy: [facility]/pharmacy #[id number], 165, cm, 07/07/24 15:39:00 EST, Height, kg, 07/07/24 15:39:00 EST, Dosing Weight Start Date: 07/13/24 Status: Ordered Start: 12-10-2023 ramipril 10 mg oral capsule Dose : 10 mg = 1 cap(s), Oral, qDay, # 30 cap(s), 4 Refill(s), Pharmacy: [facility] #[id number], 165.5, cm, 12/10/23 15:09:00 EDT, Height, kg, 12/10/23 15:09:00 EDT, Dosing Weight Start Date: 12/10/23 Status: Ordered Start: 08-03-2023 ramipril 10 mg oral capsule Dose : 10 mg = 1 cap(s), Oral, qDay, # 30 cap(s), 4 Refill(s), Pharmacy: [facility] #[id number], 165, cm, 06/25/23 15:16:00 EDT, Height, kg, 06/25/23 15:16:00 EDT, Dosing Weight Start Date: 08/03/23 Status: Ordered Start: 09-18-2022 ramipril 10 mg oral capsule Dose : 10 mg = 1 cap(s), Oral, qDay, # 30 cap(s), 4 Refill(s), Pharmacy: [facility] #[id number], 164.5, cm, 09/16/22 16:07:00 EST, Height, kg, 09/16/22 16:07:00 EST, Dosing Weight Start Date: 09/18/22 Status: Ordered Start: 03-24-2022 ramipril 10 mg oral capsule Dose : 10 mg = 1 cap(s), Oral, qDay, # 30 cap(s), 4 Refill(s), Pharmacy: [facility] #[id number], 165, cm, 03/06/22 14:46:00 EDT, Height, kg, 03/06/22 14:46:00 EDT, Dosing Weight Start Date: 03/24/22 Status: Ordered Start: 10-31-2021 take 10 mg by mouth once daily Ramipril Active 10 MG PO DAILY October 31, 2021 12:00am Start: 10-22-2021 ramipril 10 mg oral capsule Dose : 10 mg = 1 cap(s), Oral, qDay, # 30 cap(s), 4 Refill(s), Pharmacy: [facility] 165, cm, 10/22/21 15:25:00 EST, Height, kg, 10/22/21 15:25:00 EST, Dosing Weight Start Date: 10/22/21 Status: Ordered Start: 05-10-2021 ramipril 2.5 m g oral capsule Dose : 2.5 mg = 1 cap(s), Oral, qDay, # 90 cap(s), 0 Refill(s), Pharmacy: [facility] 165.1, cm, 06/25/21 16:02:00 EDT, Height, kg, 06/25/21 16:02:00 EDT, Dosing Weight Start Date: 08/14/21 Status: Ordered Start: 07-19-2020 take 5 mg by mouth once daily Ramipril Active 5 MG PO DAILY 0 July 19, 2020 12:32pm Start: 07-16-2020 End: 07-19-2020 take 2.5 mg by mouth once daily Ramipril Discontinued 2.5 MG PO DAILY July 16, 2020 12:00am July 19, 2020 11:32am rosuvastatin calcium 10 mg oral tablet (8 sources) HMG-CoA Reductase Inhibitor Start: 07-07-2024 rosuvastatin 10 mg o ral tablet Dose : 10 mg = 1 tab(s), Oral, qDay, # 90 tab(s), 3 Refill(s), Pharmacy: [facility]acy #[id number], Hyperlipidemia Controlled type 2 diabetes mellitus, 165, cm, 07/07/24 15:39:00 EST, Height, kg, 07/07/24 15:39:00 EST, Dosing Weight Start Date: 07/07/24 Status: Ordered Quantity: 90.0 Unit: tab(s) Repeat number: 4 Indications: Hyperlipidemia, unspecified; Type 2 diabetes mellitus without complications; Start: 06-12-2023 rosuvastatin 1 0 mg oral tablet Dose : 10 mg = 1 tab(s), Oral, qDay, New medication, # 90 tab(s), 3 Refill(s), [id number], Type 2 diabetes mellitus with hyperlipidemia, 165, cm, 03/18/23 16:25:00 EDT, Height, kg, 06/12/23 16:31:00 EDT, Dosing Weight Start Date: 06/12/23 Status: Ordered 0.25 mg, 0.5 mg dose 1.5 ml semaglutide 1.34 mg/ml pen injector (8 sources) Start: 10-31-2021 Semaglutide (Ozempic) 0.25 mg or 0.5 mg(2 mg/1.5 mL) Pen Injector Active 0.25 MG SC EVERY WEEK October 31, 2021 12:00am due to start this thursday sulfamethoxazole 800 mg / trimethoprim 160 mg oral tablet (3 sources) Dihydrofolate Reductase Inhibitor Antibacterial, Sulfonamide Antimicrobial Start: 01-10-2022 End: 01-20-2022 take 1 tablet by mouth every twelve hours Bactrim DS 800 mg-160 mg oral tablet Dose = 1 tab(s), Oral, q12h, X 10 day(s), # 20 tab(s), 0 Refill(s), Pharmacy: [facility] [address] 165, cm, 01/06/22 14:05:00 EDT, Height, 88 Start Date: 01/10/22 Stop Date: 01/20/22 Status: Ordered Start: 07-19-2021 End: 08-02-2021 take 1 tablet by mouth every twelve hours sulfamethoxazole-trimethoprim 800 mg-160 mg oral tablet Dose = 1 tab(s), Oral, q12h, drink plenty of fluids, X 14 day(s), # 28 tab(s), 0 Refill(s), [facility] [address] 165.1, cm, 06/25/21 16:02:00 EDT, Height, 83.7, kg, 06/25/21 16:02:00 EDT, Dosing Weight Start Date: 07/19/21 Stop Date: 08/02/21 Status: Ordered Tylenol 8 HR Arthritis Pain (7 sources) Start: 09-23-2023 take 1 mg by mouth every eight hours Tylenol 8 HR Arthritis Pain mg =, Oral, q8h, 0 Refill(s) Start Date: 09/23/23 Status: Ordered Repeat number: 1 Start: 09-23-2023 take 1 mg by mouth e very eight hours Tylenol 8 HR Arthritis Pain mg =, Oral, q8h, 0 Refill(s) Start Date: 09/23/23 Status: Ordered Vitamin D2 1.25 mg (50,000 intl units) oral capsule (8 sources) Start: 10-21-2022 take 1 capsule by mouth every week Vitamin D2 1.25 mg (50,000 intl units) oral capsule See Instructions, take 1 capsule by mouth every week, # 4 cap(s), 6 Refill(s), Pharmacy: [facility] #[id number], Vitamin D deficiency, 164.5, cm, 10/21/22 15:34:00 EST, Height, kg, 10/21/22 15:34:00 EST, Dosing Weight Start Date: 10/21/22 Status: Ordered Start: 03-24-2022 take 1 capsule by mo [facility] every week Vitamin D2 1.25 mg (50,000 intl units) oral capsule See Instructions, take 1 capsule by mouth every week, # 4 cap(s), 6 Refill(s), called to pharmacy (Rx) Start Date: 03/24/22 Status: Ordered Start: 09-07-2021 take 1 capsule by [facility] every week Vitamin D2 1.25 mg (50,000 intl units) oral capsule See Instructions, take 1 capsule by mouth every week, # 4 cap(s), 6 Refill(s), [facility]: [facility] 165, cm, 08/15/21 15:41:00 EST, Height, kg, 06/25/21 16:02:00 EDT, Dosing Weight Start Date: 09/07/21 Status: Ordered Vitamin E Pure dl-Alpha 450 mg oral capsule (3 sources) Start: 02-09-2025 Vitamin E Pure dl-Alpha 450 mg oral capsule Dose : 450 mg = 1 cap(s), Oral, qDay, 0 Refill(s) Start Date: 02/09/25 Status: Ordered Repeat number: 1 Completed/Discontinued Medications Medication Drug Class(es) Dates Sig (Normalized) Sig (Original) 3 ML semaglutide 1.34 MG/ML Pen Injector [Ozempic] (8 sources) Start: 12-10-2023 inject 1 mg by subcutaneous injection every week Ozempic 4 mg/3 mL (1 mg dose) subcutaneous solution Dose : 1 mg =, Subcutaneous, qWeek, inject 1 milligram subcutaneously every week, # 9 mL, 5 Refill(s), Pharmacy: [facility] #[id number], 165.5, cm, 12/10/23 15:09:00 EDT, Height, kg, 12/10/23 15:09:00 EDT, Dosing Weight Start Date: 12/10/23 Status: Ordered Quantity: 9.0 Unit: mL Repeat number: 6 Start: 12-10-2023 inject 1 mg by subcu taneous injection every week Ozempic 4 mg/3 mL (1 mg dose) subcutaneous solution Dose : 1 mg =, Subcutaneous, qWeek, inject 1 milligram subcutaneously every week, # 9 mL, 5 Refill(s), Pharmacy: [facility] #[id number], 165.5, cm, 12/10/23 15:09:00 EDT, Height, kg, 12/10/23 15:09:00 EDT, Dosing Weight Start Date: 12/10/23 Status: Ordered Start: 08-10-2023 inject 1 mg by subcu taneous injection every week Ozempic 4 mg/3 mL (1 mg dose) subcutaneous solution Dose : 1 mg =, Subcutaneous, qWeek, inject 1 milligram subcutaneously every week, # 3 mL, 3 Refill(s), Pharmacy: [facility] #[id number], 165, cm, 06/25/23 15:16:00 EDT, Height, kg, 06/25/23 15:16:00 EDT, Dosing Weight Start Date: 08/10/23 Status: Ordered Start: 11-13-2022 inject 1 mg by subcu taneous injection every week Ozempic (1 mg dose) 4 mg/3 mL subcutaneous solution Dose : 1 mg =, Subcutaneous, qWeek, inject 1 milligram subcutaneously every week, # 3 mL, 3 Refill(s), Pharmacy: [facility] #[id number], 164.5, cm, 10/21/22 15:34:00 EST, Height, kg, 10/21/22 15:34:00 EST, Dosing Weight Start Date: 11/13/22 Status: Ordered Start: 06-17-2022 inject 1 mg by subcu taneous injection every week Ozempic (1 mg dose) 4 mg/3 mL subcutaneous solution Dose : 1 mg =, Subcutaneous, qWeek, inject 1 milligram subcutaneously every week, # 2 mL, 3 Refill(s), Pharmacy: [facility] #[id number], 165, cm, 04/23/22 13:51:00 EDT, Height Start Date: 06/17/22 Status: Ordered Start: 10-25-2021 End: 11-22-2021 inject 0.5 mg by subcutaneous injection every week Ozempic (1 mg dose) 4 mg/3 mL subcutaneous solution Dose : 0.25 mg =, Subcutaneous, qWeek, then increased to 0.5mg, # 3 mL, 0 Refill(s) Start Date: 10/25/21 Stop Date: 11/22/21 Status: Ordered acetaminophen 325 mg / HYDROcodone bitartrate 5 mg oral tablet (20 sources) Opioid Agonist Start: 12-08-2024 End: 01-07-2025 take 1 tablet by mouth twice daily acetaminophen-hydrocodone 325 mg-5 mg oral tablet Dose = 1 tab(s), Oral, BID, Do not fill until January 21, 2025, # 60 tab(s), 0 Refill(s), [id number], Chronic pain, 165, cm, 12/08/24 16:01:00 EDT, Height, 73.7, kg, 12/08/24 15:44:00 EDT, Dosing Weight Start Date: 12/08/24 Stop Date: 01/07/25 Status: Ordered Quantity: 60.0 Unit: tab(s) Repeat number: 1 Indications: Other chronic pain; Start: 09-15-2024 End: 10-15-2024 take 1 tablet by mouth twice daily acetaminophen-hydrocodone 325 mg-5 mg or al tablet Dose = 1 tab(s), Oral, BID, Do not fill until November 13, 2024, # 60 tab(s), 0 Refill(s), [id number], Chronic pain, 165, cm, 09/15/24 14:32:00 EST, Height, 74.9, kg, 09/15/24 14:32:00 EST, Dosing Weight Start Date: 09/15/24 Stop Date: 10/15/24 Status: Ordered Quantity: 60.0 Unit: tab(s) Repeat number: 1 Indications: Other chronic pain; Start: 06-15-2024 End: 07-15-2024 take 1 tablet by mouth twice daily acetaminophen-hydrocodone 325 mg-5 mg or al tablet Dose = 1 tab(s), Oral, BID, Do not fill until July 20, 2024, # 60 tab(s), 0 Refill(s), Pharmacy: [facility]/pharmacy #[id number], Chronic pain, 162.6, cm, 06/15/24 14:27:00 EDT, Height, 76.6, kg, 03/17/24 15:31:00 EDT, Dosing Weight Start Date: 06/15/24 Stop Date: 07/15/24 Status: Ordered Start: 12-10-2023 End: 01-09-2024 take 1 tablet by mouth twice daily acetaminophen-hydrocodone 325 mg-5 mg or al tablet Dose = 1 tab(s), Oral, BID, Do not fill until January 21, 2024, # 60 tab(s), 0 Refill(s), [facility]: [facility], Chronic pain, 165.5, cm, 12/10/23 15:09:00 EDT, Height, 79.8, kg, 12/10/23 15:09:00 EDT, Dosing Weight Start Date: 12/10/23 Stop Date: 01/09/24 Status: Ordered Start: 09-23-2023 End: 10-23-2023 take 1 tablet by mouth twice daily acetaminophen-hydrocodone 325 mg-5 mg or al tablet Dose = 1 tab(s), Oral, BID, Do not fill until November 22, 2023, # 60 tab(s), 0 Refill(s), [facility]: [facility], Chronic pain, 165, cm, 09/01/23 13:55:00 EST, Height, 80.7, kg, 09/01/23 13:47:00 EST, Dosing Weight Start Date: 09/23/23 Stop Date: 10/23/23 Status: Ordered Start: 06-12-2023 End: 07-12-2023 take 1 tablet by mouth twice daily acetaminophen-hydrocodone 325 mg-5 mg or al tablet Dose = 1 tab(s), Oral, BID, Do not fill until July 22, 2023, # 60 tab(s), 0 Refill(s), [facility]: [facility], Chronic pain, 165, cm, 03/18/23 16:25:00 EDT, Height, 79.9, kg, 06/12/23 16:31:00 EDT, Dosing Weight Start Date: 06/12/23 Stop Date: 07/12/23 Status: Ordered Start: 12-16-2022 End: 01-15-2023 take 1 tablet by mouth twice daily acetaminophen-hydrocodone 325 mg-5 mg or al tablet Dose = 1 tab(s), Oral, BID, Do not fill until February 22, 2023, # 60 tab(s), 0 Refill(s), [facility]: [facility], Chronic pain, 164, cm, 12/16/22 15:44:00 EDT, Height, 81.4, kg, 12/16/22 15:44:00 EDT, Dosing Weight Start Date: 12/16/22 Stop Date: 01/15/23 Status: Ordered Start: 09-16-2022 End: 10-16-2022 take 1 tablet by mouth twice daily acetaminophen-hydrocodone 325 mg-5 mg or al tablet Dose = 1 tab(s), Oral, BID, Do not fill until November 24, 2022., # 60 tab(s), 0 Refill(s), Pharmacy: [facility] #[id number], Chronic pain, 164.5, cm, 09/16/22 16:07:00 EST, Height, 81.5, kg, 09/16/22 16:07:00 EST, Dosing Weight Start Date: 09/16/22 Stop Date: 10/16/22 Status: Ordered Start: 03-27-2022 End: 04-27-2022 take 1 tablet by mouth twice daily acetaminophen-hydrocodone 325 mg-5 mg or al tablet Dose = 1 tab(s), Oral, BID, Do not fill until May 26, 2022, # 60 tab(s), 0 Refill(s), Pharmacy: [facility] #[id number], Chronic pain, 165, cm, 03/27/22 16:49:00 EDT, Height, 83.7, kg, 03/27/22 16:39:00 EDT, Dosing Weight Start Date: 03/28/22 Stop Date: 04/27/22 Status: Ordered Start: 12-17-2021 End: 01-16-2022 take 1 tablet by mouth twice daily acetaminophen-hydrocodone 325 mg-5 mg or al tablet Dose = 1 tab(s), Oral, BID, Please do not fill until 02/15/2022, # 60 tab(s), 0 Refill(s), Pharmacy: [facility] Chronic pain, 165, cm, 12/17/21 16:18:00 EDT, Height, 85, kg, 12/17/21 16:07:00 EDT, Dosing Weight Start Date: 12/17/21 Stop Date: 01/16/22 Status: Ordered Start: 09-17-2021 End: 10-17-2021 take 1 tablet by mouth twice daily acetaminophen-hydrocodone 325 mg-5 mg or al tablet Dose = 1 tab(s), Oral, BID, do not fill until 11/16/2021, # 60 tab(s), 0 Refill(s), Pharmacy: [facility] [address] Chronic pain, 165, cm, 09/17/21 15:34:00 EST, Height, 77.3, kg, 09/17/21 15:34:00 EST, Dosing Weight Start Date: 09/17/21 Stop Date: 10/17/21 Status: Ordered Start: 06-18-2021 End: 07-18-2021 take 1 tablet by mouth twice daily acetaminophen-hydrocodone 325 mg-5 mg or al tablet Dose = 1 tab(s), Oral, BID, Do not fill until 08/17/2021, # 60 tab(s), 0 Refill(s), [facility] Chronic pain, 165.1, cm, 03/12/21 15:19:00 EDT, Height, 78.3, kg, 03/12/21 15:19:00 EDT, Dosing Weight Start Date: 06/18/21 Stop Date: 07/18/21 Status: Ordered Start: 06-18-2021 acetaminophen- hydrocodone 325 mg-5 mg oral tablet 0 Refill(s) Start Date: 06/18/21 Status: Ordered Start: 07-16-2020 Hydrocodone-Ac etaminophen Active 1 EACH PO TWICE DAILY NEEDED July 16, 2020 12:00am 0.5 ML dulaglutide 6 MG/ML Auto-Injector (4 sources) GLP-1 Receptor Agonist Start: 10-25-2020 inject 0.5 mL by subcutaneous injection every week Fredis Pen 3 mg/0.5 mL subcutaneous solution Dose : 3 mg = 0.5 mL, Subcutaneous, qWeek, rotate injection sites, # 2 mL, 3 Refill(s), [facility] 164.5, cm, 10/25/20 15:43:00 EST, Height, kg, 10/25/20 15:43:00 EST, Dosing Weight Start Date: 10/25/20 Status: Ordered Start: 07-16-2020 inject 0.75 mg by simms bcutaneous injection every week Dulaglutide Active 0.75 MG SQ EVERY WEEK July 16, 2020 3:50pm furosemide 40 mg oral tablet (18 sources) Loop Diuretic Start: 12-16-2022 take 1 tablet by mouth once daily furosemide 40 mg oral tablet 90 EA, take 1 tablet by mouth once daily, 0 Refill(s) Start Date: 12/16/22 Status: Ordered Start: 06-05-2020 take 40 mg by mouth once daily Furosemide Active 40 MG PO DAILY July 16, 2020 12:00am hydroCHLOROthiazide 25 mg oral tablet (15 sources) Thiazide Diuretic Start: 10-20-2024 hydroCHLOROthiazide 25 mg oral tablet Dose : 25 mg = 1 tab(s), Oral, qDay, # 90 tab(s), 3 Refill(s), Pharmacy: [facility]acy #[id number], Uncontrolled hypertension Hypertension associated with type 2 diabetes mellitus, 165, cm, 10/20/24 16:14:00 EST, Height, kg, 10/20/24 16:02:00 EST, Dosing Weight Start Date: 10/20/24 Status: Suspended Quantity: 90.0 Unit: tab(s) Repeat number: 4 Indications: Essential (primary) hypertension; Type 2 diabetes mellitus with other circulatory complications; Start: 12-10-2023 hydroCHLOROthi azide 25 mg oral tablet Dose : 25 mg = 1 tab(s), Oral, qDay, # 90 tab(s), 3 Refill(s), [facility]: [facility] #[id number], Uncontrolled hypertension Hypertension associated with type 2 diabetes mellitus, 165.5, cm, 12/10/23 15:09:00 EDT, Height, kg, 12/10/23 15:09:00 EDT, Dosing Weight Start Date: 12/10/23 Status: Ordered Start: 09-01-2023 hydroCHLOROthi azide 25 mg oral tablet Dose : 25 mg = 1 tab(s), Oral, qDay, # 90 tab(s), 1 Refill(s), Pharmacy: [facility] #[id number], Uncontrolled hypertension, 165, cm, 09/01/23 13:55:00 EST, Height, kg, 09/01/23 13:47:00 EST, Dosing Weight Start Date: 09/01/23 Status: Ordered Start: 10-31-2021 take 1 mg by mouth o nce daily Hydrochlorothiazide Active MG PO DAILY October 31, 2021 4:25pm Start: 10-31-2021 take 25 mg by mouth once daily Hydrochlorothiazide Active 25 MG PO DAILY October 31, 2021 12:00am Vitamin D3 (8 sources) Start: 06-16-2023 Vitamin D3 1-2 tab(s), qDay, taking daily, 1,000 units, 0 Refill(s) Start Date: 06/16/23 Status: Ordered Repeat number: 1 Start: 06-16-2023 Vitamin D3 qDa y, taking daily, unsure of dosage, 0 Refill(s) Start Date: 06/16/23 Status: Ordered Repeat number: 1 Start: 06-16-2023 Vitamin D3 qDa y, taking daily, unsure of dosage, 0 Refill(s) Start Date: 06/16/23 Status: Ordered Problems Active Problems Problem Classification Problem Date Documented Da te Episodic/Chronic Anxiety disorders (20 sources) Anxiety 03-30-2020 Chronic Cardiac dysrhythmias (20 sources) Ectopic rhythm; Translations: [Atrial fibrillation] Onset: 5 01-06-2022 Chronic Cardiac dysrhythmias (20 sources) Palpitations 06-05-2020 Episodic Chronic ulcer of skin (20 sources) Ulcer of foot; Translations: [Chronic ulcer of foot] Onset: 3 06-26-2021 Chronic Coagulation and hemorrhagic disorders (3 sources) Thrombocytopenic disorder 02-22-2025 Chronic Conditions associated with dizziness or vertigo (14 sources) Dizziness; Translations: [Lightheadedness] Onset: 5 07-07-2024 Episodic Diabetes mellitus with complications (20 sources) Type II diabetes mellitus uncontrolled; Translations: [Foot ulcer due to type 2 diabetes mellitus] Onset: 5 01-12-2020 Chronic Diabetes mellitus without complication (20 sources) Diabetic - cooperative patient; Translations: [Type 2 diabetes mellitus] 06-22-2017 Chronic Diseases of white blood cells (2 sources) Decreased white blood cell count, unspecified; Translations: [Decreased white blood cell count, unspecified] Onset: 5 Chronic Disorders of lipid metabolism (12 sources) Hyperlipidemia 02-25-2023 Chronic E Codes: Fall (20 sources) Fall 11-04-2019 Essential hypertension (20 sources) Hypertensive disorder; Translations: [Essential (primary) hypertension] Onset: 3 10-25-2020 Chronic Fever of unknown origin (8 sources) Fever; Translations: [Fever, unspecified] 07-13-2020 Episodic Fluid and electrolyte disorders (20 sources) Hypernatremia; Translations: [Hypokalemia] 10-25-2020 Episodic Gangrene (7 sources) Gangrene of toe of left foot; Translations: [Gangrene, not elsewhere classified] Episodic Headache; including migraine (20 sources) Tension-type headache 10-25-2021 Chronic Heart valve disorders (20 sources) Aortic valve sclerosis 08-14-2021 Chronic Heart valve disorders (20 sources) Irregular heart beat 12-17-2021 Episodic Immunizations and screening for infectious disease (8 sources) Contact with or exposure to other viral diseases; Translations: [Close exposure to COVID-19 virus] 07-13-2020 Episodic Infective arthritis and osteomyelitis (except that caused by tuberculosis or sexually transmitted disease) (2 sources) Osteomyelitis; Translations: [Osteomyelitis, unspecified] Chronic Intestinal infection (2 sources) Viral gastroenteritis; Translations: [Viral intestinal infection, unspecified] 09-16-2022 Episodic Malaise and fatigue (20 sources) Asthenia; Translations: [Other malaise] Onset: Episodic Mood disorders (20 sources) Depressive disorder; Translations: [Recurrent major depression] 03-15-2019 Chronic Mycoses (20 sources) Candidiasis of vagina 09-17-2021 Episodic Noninfectious gastroenteritis (14 sources) Acute gastroenteritis 09-16-2022 Episodic Nutritional deficiencies (20 sources) Vitamin D deficiency 10-25-2020 Chronic Osteoporosis (20 sources) Osteoporosis 01-12-2020 Chronic Other circulatory disease (20 sources) 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 Other circulatory disease (5 sources) Peripheral vascular disease; Translations: [Other specified peripheral vascular diseases] 01-08-2022 Chronic Other circulatory disease (3 sources) Other specified peripheral vascular diseases; Translations: [Other specified peripheral vascular diseases] Chronic Other circulatory disease (19 sources) Low blood pressure 01-14-2022 Episodic Other connective tissue disease (20 sources) Swelling of left lower limb 07-19-2021 Episodic Other connective tissue disease (19 sources) Recurrent falls 01-14-2022 Episodic Other connective tissue disease (3 sources) Muscle weakness of limb 02-12-2025 Episodic Other connective tissue disease (3 sources) Other symptoms and signs involving the musculoskeletal system; Translations: [Other symptoms and signs involving the musculoskeletal system] Onset: 5 Episodic Other diseases of veins and lymphatics (5 sources) Peripheral venous insufficiency; Translations: [Venous insufficiency (chronic) (peripheral)] 01-08-2022 Episodic Other diseases of veins and lymphatics (3 sources) Venous insufficiency (chronic) (peripheral); Translations: [Venous (peripheral) insufficiency, unspecified] Episodic Other ear and sense organ disorders (11 sources) Hearing loss of right ear 09-01-2023 Chronic Other ear and sense organ disorders (11 sources) Bilateral tinnitus 09-23-2023 Episodic Other eye disorders (9 sources) Subconjunctival hemorrhage 06-15-2024 Episodic Other injuries and conditions due to external causes (20 sources) Local infection of wound; Translations: [Other injury of unspecified body region, initial encounter] 01-14-2022 Episodic Other injuries and conditions due to external causes (3 sources) Other injury of unspecified body region, initial encounter; Translations: [Posttraumatic wound infection not elsewhere classified] Episodic Other nervous system disorders (20 sources) Neuropathy 06-22-2017 Chronic Comment on above: OF FEET Other non-traumatic joint disorders (20 sources) Hip pain 11-04-2019 Episodic Other non-traumatic joint disorders (20 sources) Shoulder pain 10-25-2021 Episodic Other nutritional; endocrine; and metabolic disorders (13 sources) Body mass index 30+ - obesity 10-21-2022 Chronic Other nutritional; endocrine; and metabolic disorders (12 sources) Overweight in adulthood with body mass index of 25 or more but less than 30 06-16-2023 Episodic Other screening for suspected conditions (not mental disorders or infectious disease) (16 sources) Viral screening status 04-23-2022 Episodic Other skin disorders (20 sources) Lesion of skin of face 11-04-2019 Episodic Other upper respiratory infections (20 sources) Acute sinusitis; Translations: [Upper respiratory infection] 09-11-2021 Episodic Peripheral and visceral atherosclerosis (1 source) Peripheral vascular disease, unspecified; Translations: [Peripheral vascular disease, unspecified] Onset: 3 Chronic Phlebitis; thrombophlebitis and thromboembolism (20 sources) Thrombophlebitis of lower extremities 03-15-2019 Episodic Residual codes; unclassified (20 sources) Bilateral lower limb edema 06-05-2020 Episodic Residual codes; unclassified (20 sources) Chronic pain 03-16-2019 Episodic Residual codes; unclassified (20 sources) Insomnia 03-15-2019 Episodic Residual codes; unclassified (20 sources) Needs influenza immunization 06-22-2020 Episodic Residual codes; unclassified (5 sources) Localized edema; Translations: [Localized edema] 01-08-2022 Episodic Residual codes; unclassified (3 sources) Localized edema; Translations: [Edema] Episodic Residual codes; unclassified (12 sources) Screening due 06-12-2023 Episodic Spondylosis; intervertebral disc disorders; other back problems (20 sources) Backache 11-04-2019 Episodic Thyroid disorders (20 sources) Hypothyroidism; Translations: [Thyroid nodule] 03-15-2019 Chronic Unclassified (20 sources) H/O: high risk medication 03-30-2020 Unclassified (20 sources) Ulcer of heel due to diabetes mellitus 07-19-2021 Unclassified (20 sources) Patient encounter status 04-23-2022 Unclassified (13 sources) Never used tobacco 10-21-2022 Unclassified (12 sources) Influenza vaccination status 06-12-2023 Unclassified (5 sources) Low back pain co-occurrent with neuralgia of left sciatic nerve 09-29-2024 Viral infection (8 sources) Disease caused by 2019-nCoV; Translations: [COVID-19] 07-16-2020 Episodic Past or Other Problems Problem Classification Problem Date Documented Da te Episodic/Chronic Nausea and vomiting (1 source) Nausea with vomiting, unspecified; Translations: [Nausea with vomiting, unspecified] Onset: 09-26-2022 Episodic Results Test Name Value Interpretation Reference Range Facility .GFRon 02-28-2025 Estimated Glomerular Filtration Rate 61 ml/min/1.73sqm Normal [facility] Comment on above: Result Comment: Stages of Chronic Kidney Disease (CKD) Stage Description eGFR(ml/min/1.73 sq.m.) CKD 1 Normal kidney function or >=90 normal kindney function with possible kidney damage (ex. Proteinuria) CKD 2 Kidney damage with mild loss 60-89 of kidney function CKD 3a Mild to moderate loss of kidney 45-59 function CKD 3b Moderate to severe loss of 30-44 of kindey function CKD 4 Severe loss of kidney function 15-29 CKD 5 Kidney failure <15 Note: (go live 2024) the eGFR calculation was updated to the 2020 CKD-EPI creatinine equation without a race factor to calculate the eGFR results. Performed By: #### Ingris YATES, BMP #### [address] [address] BMPon 02-28-2025 BUN/Creatinine Ratio 19 ratio Normal 7-27 [facility] Comment on above: Performed By: #### Ingris YATES, BMP #### [address] [address] Calcium [Mass/Vol] 8.8 mg/dL Normal 8.4-10.2 [facility] Comment on above: Performed By: #### Ingris YATES, BMP #### [address] [address] Chloride [Moles/Vol] 93 mmol/L Low 98-107 [facility] Comment on above: Performed By: #### Ingris YATES, BMP #### [address] [address] CO2 [Moles/Vol] 28 mmol/L Normal 23-31 [facility] Comment on above: Performed By: #### Ingris YATES, BMP #### [address] [address] Creatinine [Mass/Vol] 0.96 mg/dL High 0.51-0.95 [facility] Comment on above: Performed By: #### Ingris YATES, BMP #### [address] [address] Electrolyte Balance 6.0 mEq/L Normal 4.0-15.0 [facility] Comment on above: Performed By: #### Ingris YATES, BMP #### [address] [address] Glucose [Mass/Vol] 103 mg/dL Normal 83-110 [facility] Comment on above: Performed By: #### Ingris YATES, BMP #### [address] [address] Potassium [Moles/Vol] 5.1 mmol/L Normal 3.5-5.1 [facility] Comment on above: Performed By: #### G , BMP #### [facility] [address] [place], [place] [address] Sodium [Moles/Vol] 127 mmol/L Low 136-145 [facility] Comment on above: Performed By: #### G FR, BMP #### [facility] [address] [place], [place] [address] Urea nitrogen [Mass/Vol] 18 mg/dL Normal 7-18 [facility] Comment on above: Performed By: #### G FR, BMP #### [address] [place], [place] [address] LABORATORYOrdered By: SYSTEM SYSTEM on 02-28-2025 Calcium [Mass/Vol] 8.8 mg/dL Normal 8.4 - 10. 2 mg/dL AO ADM SS Chloride [Moles/Vol] 93 mmol/L Low 98 - 10 7 mmol/L AO ADM SS CO2 [Moles/Vol] 28 mmol/L Normal 23 - 31 mmol/L AO ADM SS Creatinine [Mass/Vol] 0.96 mg/dL High 0.51 - 0.95 mg/dL AO ADM SS Electrolyte Balance 6.0 mEq/L Normal 4.0 - 15 .0 mEq/L AO ADM SS Estimated Glomerular Filtration Rate 61 ml/min/1.73sqm Invalid Interpretation Code AO Chemistry S Comment on above: Interpretive Data: Stages of Chronic Kidney Disease (CKD) Stage Description eGFR(ml/min/1.73 sq.m.) CKD 1 Normal kidney function or >=90 normal kindney function with possible kidney damage (ex. Proteinuria) CKD 2 Kidney damage with mild loss 60-89 of kidney function CKD 3a Mild to moderate loss of kidney 45-59 function CKD 3b Moderate to severe loss of 30-44 of kindey function CKD 4 Severe loss of kidney function 15-29 CKD 5 Kidney failure <15 Note: (go live 2024) the eGFR calculation was updated to the 2020 CKD-EPI creatinine equation without a race factor to calculate the eGFR results. Glucose [Mass/Vol] 103 mg/dL Normal 83 - 110 mg/dL AO ADM SS Potassium [Moles/Vol] 5.1 mmol/L Normal 3.5 - 5.1 mmol/L AO ADM SS Sodium [Moles/Vol] 127 mmol/L Low 136 - 145 mmol/L AO ADM SS Urea nitrogen [Mass/Vol] 18 mg/dL Normal 7 - 18 mg/dL AO ADM SS Urea nitrogen/Creatinine [Mass ratio] 19 ratio Normal 7 - 27 ratio AO ADM SS .GFRon 02-23-2025 Estimated Glomerular Filtration Rate 70 ml/min/1.73sqm Normal [facility] Comment on above: Result Comment: Stages of Chronic Kidney Disease (CKD) Stage Description eGFR(ml/min/1.73 sq.m.) CKD 1 Normal kidney function or >=90 normal kindney function with possible kidney damage (ex. Proteinuria) CKD 2 Kidney damage with mild loss 60-89 of kidney function CKD 3a Mild to moderate loss of kidney 45-59 function CKD 3b Moderate to severe loss of 30-44 of kindey function CKD 4 Severe loss of kidney function 15-29 CKD 5 Kidney failure <15 Note: (go live 2024) the eGFR calculation was updated to the 2020 CKD-EPI creatinine equation without a race factor to calculate the eGFR results. Performed By: #### G , BMP #### [address] [address] BMPon 02-23-2025 BUN/Creatinine Ratio 15 ratio Normal 7-27 [facility] Comment on above: Performed By: #### G FR, BMP #### [address] [address] Calcium [Mass/Vol] 9.2 mg/dL Normal 8.4-10.2 [facility] Comment on above: Performed By: #### G FR, BMP #### [address] [address] Chloride [Moles/Vol] 92 mmol/L Low 98-107 [facility] Comment on above: Performed By: #### G FR, BMP #### [address] [address] CO2 [Moles/Vol] 33 mmol/L High 23-31 [facility] Comment on above: Performed By: #### G FR, BMP #### [address] [address] Creatinine [Mass/Vol] 0.86 mg/dL Normal 0.51-0.95 [facility] Comment on above: Performed By: #### Ingris YATES, BMP #### [address] [address] Electrolyte Balance 6.0 mEq/L Normal 4.0-15.0 [facility] Comment on above: Performed By: #### Ingris YATES, BMP #### [address] [address] Glucose [Mass/Vol] 152 mg/dL High 83-110 [facility] Comment on above: Performed By: #### Ingris YATES, BMP #### [address] [address] Potassium [Moles/Vol] 3.6 mmol/L Normal 3.5-5.1 [facility] Comment on above: Performed By: #### Ingris YATES, BMP #### [address] [address] Sodium [Moles/Vol] 131 mmol/L Low 136-145 [facility] Comment on above: Performed By: #### Ingris YATES, BMP #### [address] [address] Urea nitrogen [Mass/Vol] 13 mg/dL Normal 7-18 [facility] Comment on above: Performed By: #### Ingris YATES, BMP #### [address] [address] LABORATORYOrdered By: SYSTEM SYSTEM on 02-23-2025 Calcium [Mass/Vol] 9.2 mg/dL Normal 8.4 - 10. 2 mg/dL AO ADM SS Chloride [Moles/Vol] 92 mmol/L Low 98 - 10 7 mmol/L AO ADM SS CO2 [Moles/Vol] 33 mmol/L High 23 - 31 mmol/L AO ADM SS Creatinine [Mass/Vol] 0.86 mg/dL Normal 0.51 - 0.95 mg/dL AO ADM SS Electrolyte Balance 6.0 mEq/L Normal 4.0 - 15 .0 mEq/L AO ADM SS Estimated Glomerular Filtration Rate 70 ml/min/1.73sqm Invalid Interpretation Code AO Chemistry S Comment on above: Interpretive Data: Stages of Chronic Kidney Disease (CKD) Stage Description eGFR(ml/min/1.73 sq.m.) CKD 1 Normal kidney function or >=90 normal kindney function with possible kidney damage (ex. Proteinuria) CKD 2 Kidney damage with mild loss 60-89 of kidney function CKD 3a Mild to moderate loss of kidney 45-59 function CKD 3b Moderate to severe loss of 30-44 of kindey function CKD 4 Severe loss of kidney function 15-29 CKD 5 Kidney failure <15 Note: (go live 2024) the eGFR calculation was updated to the 2020 CKD-EPI creatinine equation without a race factor to calculate the eGFR results. Glucose [Mass/Vol] 152 mg/dL High 83 - 110 mg/dL AO ADM SS Potassium [Moles/Vol] 3.6 mmol/L Normal 3.5 - 5.1 mmol/L AO ADM SS Sodium [Moles/Vol] 131 mmol/L Low 136 - 145 mmol/L AO ADM SS Urea nitrogen [Mass/Vol] 13 mg/dL Normal 7 - 18 mg/dL AO ADM SS Urea nitrogen/Creatinine [Mass ratio] 15 ratio Normal 7 - 27 ratio AO ADM SS .Auto Diffon 02-21-2025 Basophil, Absolute 0.0 10 3/mcL Normal 0.0-0.3 [facility] Comment on above: Performed By: #### G , BMP #### [address] [address] Basophils/100 WBC (Bld) 0.6 % Normal 0.0-2.5 [facility] Comment on above: Performed By: #### G FR, BMP #### [address] [address] Eosinophil, Absolute 0.1 10 3/mcL Normal 0.0-0.7 [facility] Comment on above: Performed By: #### G FR, BMP #### [address] [address] Eosinophils/100 WBC (Bld) 1.0 % Normal 0.0-6.0 [facility] Comment on above: Performed By: #### G FR, BMP #### [address] [place], [place] [address] Lymphocyte, Absolute 1.1 10 3/mcL Normal 0.9-4.3 [facility] Comment on above: Performed By: #### G FR, BMP #### [facility] [address] [place], [place] [address] Lymphocytes/100 WBC (Bld) 22.2 % Normal 20.0-40.0 [facility] Comment on above: Performed By: #### G FR, BMP #### [address] [address] Monocyte, Absolute 0.5 10 3/mcL Normal 0.1-1.4 [facility] Comment on above: Performed By: #### G FR, BMP #### [address] [address] Monocytes/100 WBC (Bld) 8.9 % Normal 2.0-13.0 [facility] Comment on above: Performed By: #### G FR, BMP #### [address] [address] Neutrophils/100 WBC (Bld) 67.3 % Normal 50.0-75.0 [facility] Comment on above: Performed By: #### G FR, BMP #### [address] [address] .GFRon 02-21-2025 Estimated Glomerular Filtration Rate 84 ml/min/1.73sqm Normal [facility] Comment on above: Result Comment: Stages of Chronic Kidney Disease (CKD) Stage Description eGFR(ml/min/1.73 sq.m.) CKD 1 Normal kidney function or >=90 normal kindney function with possible kidney damage (ex. Proteinuria) CKD 2 Kidney damage with mild loss 60-89 of kidney function CKD 3a Mild to moderate loss of kidney 45-59 function CKD 3b Moderate to severe loss of 30-44 of kindey function CKD 4 Severe loss of kidney function 15-29 CKD 5 Kidney failure <15 Note: (go live 2024) the eGFR calculation was updated to the 2020 CKD-EPI creatinine equation without a race factor to calculate the eGFR results. Performed By: #### G FR, BMP #### [address] [address] .NEUABSon 02-21-2025 Neutrophil, Absolute 3.4 10 3/mcL Normal 2.3-8.1 [facility] Comment on above: Performed By: #### G FR, BMP #### [address] [address] BMPon 02-21-2025 BUN/Creatinine Ratio 15 ratio Normal 7-27 [facility] Comment on above: Performed By: #### G FR, BMP #### [address] [address] Calcium [Mass/Vol] 8.9 mg/dL Normal 8.4-10.2 [facility] Comment on above: Performed By: #### G FR, BMP #### [address] [address] Chloride [Moles/Vol] 92 mmol/L Low 98-107 [facility] Comment on above: Performed By: #### G FR, BMP #### [address] [address] CO2 [Moles/Vol] 35 mmol/L High 23-31 [facility] Comment on above: Performed By: #### G FR, BMP #### [address] [address] Creatinine [Mass/Vol] 0.74 mg/dL Normal 0.51-0.95 [facility] Comment on above: Performed By: #### G FR, BMP #### [address] [address] Electrolyte Balance 4.0 mEq/L Normal 4.0-15.0 [facility] Comment on above: Performed By: #### G FR, BMP #### [address] [address] Glucose [Mass/Vol] 157 mg/dL High 83-110 [facility] Comment on above: Performed By: #### G FR, BMP #### [address] [address] Potassium [Moles/Vol] 3.0 mmol/L Low 3.5-5.1 [facility] Comment on above: Performed By: #### G FR, BMP #### [address] [address] Sodium [Moles/Vol] 131 mmol/L Low 136-145 [facility] Comment on above: Performed By: #### G FR, BMP #### [address] [address] Urea nitrogen [Mass/Vol] 11 mg/dL Normal 7-18 [facility] Comment on above: Performed By: #### G , BMP #### [address] [address] CBCon 02-21-2025 Erythrocyte distribution width (RBC) [Ratio] 13.0 % Normal 11.5-15.5 [facility] Comment on above: Performed By: #### G , BMP #### [address] [address] Hematocrit (Bld) [Volume fraction] 42.0 % Normal 34.0-46.0 [facility] Comment on above: Performed By: #### G , BMP #### [address] [address] Hgb 14.6 G/dL Normal 12.0-16.0 [facility] Comment on above: Performed By: #### G FR, BMP #### [address] [address] MCH (RBC) [Entitic mass] 31.4 pg Normal 27.0-33.0 [facility] Comment on above: Performed By: #### G FR, BMP #### [address] [address] MCHC 34.8 G/dL Normal 32.0-36.0 [facility] Comment on above: Performed By: #### G FR, BMP #### [address] [place], [place] [address] MCV (RBC) [Entitic vol] 90.1 fL Normal 80.0-99.0 [facility] Comment on above: Performed By: #### Ingris YATES, BMP #### [address] [place], [place] [address] Platelet 119 10 3/mcL Low 150-450 [facility] Comment on above: Performed By: #### Ingris YATES, BMP #### [address] [place], [place] [address] Platelet mean volume (Bld) [Entitic vol] 9.3 fL Normal 6.6-10.5 [facility] Comment on above: Performed By: #### Ingris YATES, BMP #### [address] [address] RBC 4.66 10 6/mcL Normal 4.10-5.30 [facility] Comment on above: Performed By: #### Ingris YATES, BMP #### [address] [address] WBC 5.0 10 3/mcL Normal 4.5-10.8 [facility] Comment on above: Performed By: #### Ingris YATES, BMP #### [address] [address] LABORATORYOrdered By: SYSTEM SYSTEM on 02-21-2025 Basophils (Bld) [#/Vol] 0.0 103/mcL Normal 0.0 - 0.3 10^3/mcL AO Workflow SS Basophils/100 WBC (Bld) 0.6 % Normal 0.0 - 2.5 % AO Workflow SS Calcium [Mass/Vol] 8.9 mg/dL Normal 8.4 - 10. 2 mg/dL AO ADM SS Chloride [Moles/Vol] 92 mmol/L Low 98 - 10 7 mmol/L AO ADM SS CO2 [Moles/Vol] 35 mmol/L High 23 - 31 mmol/L AO ADM SS Creatinine [Mass/Vol] 0.74 mg/dL Normal 0.51 - 0.95 mg/dL AO ADM SS Electrolyte Balance 4.0 mEq/L Normal 4.0 - 15 .0 mEq/L AO ADM SS Eosinophil, Absolute 0.1 103/mcL Normal 0.0 - 0 .7 10^3/mcL AO Workflow SS Eosinophils/100 WBC (Bld) 1.0 % Normal 0.0 - 6.0 % AO Workflow SS Erythrocyte distribution width (RBC) [Ratio] 13.0 % Normal 11.5 - 15.5 % AO Workflow SS Estimated Glomerular Filtration Rate 84 ml/min/1.73sqm Invalid Interpretation Code AO Chemistry S Comment on above: Interpretive Data: Stages of Chronic Kidney Disease (CKD) Stage Description eGFR(ml/min/1.73 sq.m.) CKD 1 Normal kidney function or >=90 normal kindney function with possible kidney damage (ex. Proteinuria) CKD 2 Kidney damage with mild loss 60-89 of kidney function CKD 3a Mild to moderate loss of kidney 45-59 function CKD 3b Moderate to severe loss of 30-44 of kindey function CKD 4 Severe loss of kidney function 15-29 CKD 5 Kidney failure <15 Note: (go live 2024) the eGFR calculation was updated to the 2020 CKD-EPI creatinine equation without a race factor to calculate the eGFR results. Glucose [Mass/Vol] 157 mg/dL High 83 - 110 mg/dL AO ADM SS Hematocrit (Bld) [Volume fraction] 42.0 % Normal 34.0 - 46.0 % AO Workflow SS Hemoglobin (Bld) [Mass/Vol] 14.6 G/dL Normal 12.0 - 16.0 G/dL AO Workflow SS Lymphocytes (Bld) [#/Vol] 1.1 103/mcL Normal 0.9 - 4.3 10^3/mcL AO Workflow SS Lymphocytes/100 WBC (Bld) 22.2 % Normal 20.0 - 40.0 % AO Workflow SS MCH (RBC) [Entitic mass] 31.4 pg Normal 27. 0 - 33.0 pg AO Workflow SS MCHC 34.8 G/dL Normal 32.0 - 36.0 G/dL AO Workflow SS MCV (RBC) [Entitic vol] 90.1 fL Normal 80.0 - 99.0 fL AO Workflow SS Monocytes (Bld) [#/Vol] 0.5 103/mcL Normal 0.1 - 1.4 10^3/mcL AO Workflow SS Monocytes/100 WBC (Bld) 8.9 % Normal 2.0 - 13.0 % AO Workflow SS Natriuretic peptide.B prohormone N-Terminal [Mass/Vol] 244 pg/mL Normal 0 - 450 pg/mL AO ADM SS Comment on above: Interpretive Data: N T-proBNP results of less than 300 pg/mL effectively rules out acute congestive heart failure with 99% negative predictive value. Neutrophils (Bld) [#/Vol] 3.4 103/mcL Normal 2.3 - 8.1 10^3/mcL AO Workflow SS Neutrophils/100 WBC (Bld) 67.3 % Normal 50.0 - 75.0 % AO Workflow SS Platelet mean volume (Bld) [Entitic vol] 9.3 fL Normal 6.6 - 10.5 fL AO Workflow SS Platelets (Bld) [#/Vol] 119 103/mcL Low 150 - 450 10^3/mcL AO Workflow SS Potassium [Moles/Vol] 3.0 mmol/L Low 3.5 - 5.1 mmol/L AO ADM SS RBC (Bld) [#/Vol] 4.66 106/mcL Normal 4.10 - 5.3 0 10^6/mcL AO Workflow SS Sodium [Moles/Vol] 131 mmol/L Low 136 - 145 mmol/L AO ADM SS Urea nitrogen [Mass/Vol] 11 mg/dL Normal 7 - 18 mg/dL AO ADM SS Urea nitrogen/Creatinine [Mass ratio] 15 ratio Normal 7 - 27 ratio AO ADM SS WBC (Bld) [#/Vol] 5.0 103/mcL Normal 4.5 - 10.8 10^3/mcL AO Workflow SS PBNPon 02-21-2025 Natriuretic peptide B (Bld) [Mass/Vol] 244 pg/mL Normal 0-450 [facility] Comment on above: Result Comment: NT-p roBNP results of less than 300 pg/mL effectively rules out acute congestive heart failure with 99% negative predictive value. Performed By: #### G , BMP #### [address] [address] .GFRon 01-09-2025 Estimated Glomerular Filtration Rate 80 ml/min/1.73sqm Normal [facility] Comment on above: Result Comment: Stages of Chronic Kidney Disease (CKD) Stage Description eGFR(ml/min/1.73 sq.m.) CKD 1 Normal kidney function or >=90 normal kindney function with possible kidney damage (ex. Proteinuria) CKD 2 Kidney damage with mild loss 60-89 of kidney function CKD 3a Mild to moderate loss of kidney 45-59 function CKD 3b Moderate to severe loss of 30-44 of kindey function CKD 4 Severe loss of kidney function 15-29 CKD 5 Kidney failure <15 Note: (go live 2024) the eGFR calculation was updated to the 2020 CKD-EPI creatinine equation without a race factor to calculate the eGFR results. Performed By: #### Ingris YATES, BMP #### [address] [address] A1Con 01-09-2025 Glucose [Mass/Vol] 140 mg/dL Normal [facility] Comment on above: Result Comment: [place] mated Average Glucose calculated by equation ((28.7xA1C)-46.7) Estimated average glucose (eAG) is a calculated value from Hemoglobin A1C and is sales representative rural power of the average blood glucose level in the last 2-3 month period. Normal range: less than 114 mg/dL Performed By: #### Ingris YATES, BMP #### [address] [address] HbA1c (Bld) [Mass fraction] 6.5 % High 4.3-6.4 [facility] Comment on above: Performed By: #### Ingris YATES, BMP #### [address] [address] CMPon 01-09-2025 ALT [Catalytic activity/Vol] 12 U/L Low 14-59 [facility] Comment on above: Performed By: #### Ingris YATES, BMP #### [address] [address] Albumin Level 3.4 G/dL Normal 3.4-4.8 [facility] Comment on above: Performed By: #### Ingris YATES, BMP #### [address] [address] Albumin/Globulin [Mass ratio] 1.2 {ratio} Normal 1.1-2.5 [facility] Comment on above: Performed By: #### Ingris YATES, BMP #### [address] [place] [address] ALP [Catalytic activity/Vol] 68 U/L Normal 40-135 [facility] Comment on above: Performed By: #### Ingris YATES, BMP #### [address] [address] AST [Catalytic activity/Vol] 19 U/L Normal 10-40 [facility] Comment on above: Performed By: #### G , BMP #### [address] [address] Bili Total 0.5 mg/dL Normal 0.2-1.0 [facility] Comment on above: Result Comment: Use of this assay is not recommended for patients undergoing treatment with eltrombopag due to the potential for falsely elevated results. Performed By: #### Ingris YATES, BMP #### [address] [address] BUN/Creatinine Ratio 12 ratio Normal 7-27 [facility] Comment on above: Performed By: #### Ingris YATES, BMP #### [address] [address] Calcium [Mass/Vol] 8.9 mg/dL Normal 8.4-10.2 [facility] Comment on above: Performed By: #### Ingris YATES, BMP #### [address] [address] Chloride [Moles/Vol] 105 mmol/L Normal 98-107 [facility] Comment on above: Performed By: #### Ingris YATES, BMP #### [address] [address] CO2 [Moles/Vol] 30 mmol/L Normal 23-31 [facility] Comment on above: Performed By: #### G , BMP #### [address] [address] Creatinine [Mass/Vol] 0.77 mg/dL Normal 0.51-0.95 [facility] Comment on above: Performed By: #### G , BMP #### [address] [address] Electrolyte Balance 7.0 mEq/L Normal 4.0-15.0 [facility] Comment on above: Performed By: #### G , BMP #### [address] [address] Globulin 2.9 G/dL Normal 2.7-4.4 [facility] Comment on above: Performed By: #### G , BMP #### [address] [address] Glucose [Mass/Vol] 122 mg/dL High 83-110 [facility] Comment on above: Performed By: #### G , BMP #### [address] [address] Potassium [Moles/Vol] 3.2 mmol/L Low 3.5-5.1 [facility] Comment on above: Performed By: #### Ingris YATES, BMP #### [address] [address] Sodium [Moles/Vol] 142 mmol/L Normal 136-145 [facility] Comment on above: Performed By: #### Ingris YATES, BMP #### [address] [address] Total Protein 6.3 G/dL Low 6.4-8.2 [facility] Comment on above: Performed By: #### Ingris YATES, BMP #### [address] [address] Urea nitrogen [Mass/Vol] 9 mg/dL Normal 7-18 [facility] Comment on above: Performed By: #### G , BMP #### [address] [address] FT3on 01-09-2025 Free T3 [Mass/Vol] 2.25 pg/mL Low 2.30-4.00 [facility] Comment on above: Performed By: #### G , BMP #### [address] [address] LABORATORYOrdered By: Neida Sarabia on 01-09-2025 Albumin DL <= 20 mg/L (U) [Mass/Vol] 7.4 mg/L Invalid Interpretation Code AO ADM SS Albumin/Creatinine DL <= 20 mg/L (U) [Mass ratio] 15 mg/G Normal 0 - 30 mg/G AO Chem istry S Creatinine (U) [Mass/Vol] 48.2 mg/dL Normal 29.0 - 226.0 mg/dL AO ADM SS LABORATORYOrdered By: SYSTEM SYSTEM on 01-09-2025 25-hydroxyvitamin D3 [Mass/Vol] 31.1 ng/mL Invalid Interpretation Code AO ADM SS Comment on above: Interpretive Data: I nterpretive Values Based on Total 25(OH) Vitamin D: Deficient <20 ng/mL Insufficient 20 - <30 ng/mL Sufficient 30-100 ng/mL Albumin BCP dye [Mass/Vol] 3.4 G/dL Normal 3.4 - 4.8 G/dL AO ADM SS Albumin/Globulin [Mass ratio] 1.2 {ratio} Normal 1.1 - 2.5 ratio AO ADM SS ALP [Catalytic activity/Vol] 68 U/L Normal 40 - 135 U/L AO ADM SS ALT With P-5'-P [Catalytic activity/Vol] 12 U/L Low 14 - 59 U/L AO ADM SS AST With P-5'-P [Catalytic activity/Vol] 19 U/L Normal 10 - 40 U/L AO ADM SS Bilirubin [Mass/Vol] 0.5 mg/dL Normal 0.2 - 1 .0 mg/dL AO ADM SS Comment on above: Interpretive Data: U se of this assay is not recommended for patients undergoing treatment with eltrombopag due to the potential for falsely elevated results. Calcium [Mass/Vol] 8.9 mg/dL Normal 8.4 - 10. 2 mg/dL AO ADM SS Chloride [Moles/Vol] 105 mmol/L Normal 98 - 10 7 mmol/L AO ADM SS CO2 [Moles/Vol] 30 mmol/L Normal 23 - 31 mmol/L AO ADM SS Creatinine [Mass/Vol] 0.77 mg/dL Normal 0.51 - 0.95 mg/dL AO ADM SS Electrolyte Balance 7.0 mEq/L Normal 4.0 - 15 .0 mEq/L AO ADM SS Estimated Glomerular Filtration Rate 80 ml/min/1.73sqm Invalid Interpretation Code AO Chemistry S Comment on above: Interpretive Data: Stages of Chronic Kidney Disease (CKD) Stage Description eGFR(ml/min/1.73 sq.m.) CKD 1 Normal kidney function or >=90 normal kindney function with possible kidney damage (ex. Proteinuria) CKD 2 Kidney damage with mild loss 60-89 of kidney function CKD 3a Mild to moderate loss of kidney 45-59 function CKD 3b Moderate to severe loss of 30-44 of kindey function CKD 4 Severe loss of kidney function 15-29 CKD 5 Kidney failure <15 Note: (go live 2024) the eGFR calculation was updated to the 2020 CKD-EPI creatinine equation without a race factor to calculate the eGFR results. Free T3 [Mass/Vol] 2.25 pg/mL Low 2.30 - 4. 00 pg/mL AO ADM SS Globulin 2.9 G/dL Normal 2.7 - 4.4 G/dL AO ADM SS Glucose [Mass/Vol] 140 mg/dL Invalid Interpretation Code AO Chemistry S Comment on above: Interpretive Data: E stimated average glucose (eAG) is a calculated value from Hemoglobin A1C and is sales representative rural power of the average blood glucose level in the last 2-3 month period. Normal range: less than 114 mg/dL Glucose [Mass/Vol] 122 mg/dL High 83 - 110 mg/dL AO ADM SS HbA1c (Bld) [Mass fraction] 6.5 % High 4.3 - 6.4 % AO ADM SS Potassium [Moles/Vol] 3.2 mmol/L Low 3.5 - 5.1 mmol/L AO ADM SS Protein [Mass/Vol] 6.3 G/dL Low 6.4 - 8.2 G/dL AO ADM SS Sodium [Moles/Vol] 142 mmol/L Normal 136 - 145 mmol/L AO ADM SS TSH Qn 2.48 m[IU]/L Normal 0.36 - 3.74 mcIU/mL AO ADM SS Urea nitrogen [Mass/Vol] 9 mg/dL Normal 7 - 18 mg/dL AO ADM SS Urea nitrogen/Creatinine [Mass ratio] 12 ratio Normal 7 - 27 ratio AO ADM SS LABORATORYOrdered By: Senia Devries on 01-09-2025 Cholesterol [Mass/Vol] 137 mg/dL Normal 0 - 2 00 mg/dL AO ADM SS Comment on above: Interpretive Data: C holesterol Reference Interval: Less than 200 Desirable 200-239 Borderline high risk 240 and above High risk Cholesterol in HDL [Mass/Vol] 48 mg/dL Normal 40 - 60 mg/dL AO ADM SS Cholesterol in LDL [Mass/Vol] 69 mg/dL Normal 0 - 130 mg/dL AO ADM SS Triglyceride [Mass/Vol] 100 mg/dL Normal 0 - 150 mg/dL AO ADM SS Comment on above: Interpretive Data: T riglyceride Reference Interval: Less than 150 Normal 150-199 Borderline high risk 200-499 High risk 500 or higher Very high risk LIPIDon 01-09-2025 Cholesterol [Mass/Vol] 137 mg/dL Normal 0-200 [facility] Comment on above: Result Comment: Chol esterol Reference Interval: Less than 200 Desirable 200-239 Borderline high risk 240 and above High risk Performed By: #### G , BMP #### [address] [address] Cholesterol in HDL [Mass/Vol] 48 mg/dL Normal 40-60 [facility] Comment on above: Performed By: #### G FR, BMP #### [address] [address] Cholesterol in LDL [Mass/Vol] 69 mg/dL Normal 0-130 [facility] Comment on above: Performed By: #### G , BMP #### [address] [address] Triglyceride [Mass/Vol] 100 mg/dL Normal 0-150 [facility] Comment on above: Result Comment: Trig lyceride Reference Interval: Less than 150 Normal 150-199 Borderline high risk 200-499 High risk 500 or higher Very high risk Performed By: #### G FR, BMP #### [address] [address] MALBRon 01-09-2025 U Creatinine 48.2 mg/dL Normal 29.0-226.0 [facility] Comment on above: Performed By: #### G FR, BMP #### [address] [address] U Microalb 7.4 mg/L Normal [facility] Comment on above: Performed By: #### G FR, BMP #### [address] [address] U Ratio Alb/Cre 15 mg/G Normal 0-30 [facility] Comment on above: Performed By: #### G , BMP #### [address] [address] TSHon 01-09-2025 TSH Qn 2.48 m[IU]/L Normal 0.36-3.74 [facility] Comment on above: Performed By: #### G , BMP #### [address] [address] VIDHon 01-09-2025 Vit. D 25-Hydroxy 31.1 ng/mL Normal [facility] Comment on above: Result Comment: Inte rpretive Values Based on Total 25(OH) Vitamin D: Deficient <20 ng/mL Insufficient 20 - <30 ng/mL Sufficient 30-100 ng/mL Performed By: #### G , BMP #### [address] [address] XR SPINE LUMBAR W/OBLIQUES 4 VIEWSon 10-14-2024 XR SPINE LUMBAR W/OBLIQUES 4 VIEWS ORIGINAL EXAMINATION: AP lateral obliques 5 XRAY VIEWS OF THE LUMBAR SPINE10/12/2024 4:25 pm COMPARISON: 11/04/2019 HISTORY: ORDERING SYSTEM PROVIDED HISTORY: Reason for Exam: pain, FINDINGS: There are 5 lumbar-type vertebral bodies that show normal height with no obvious acute fracture or compression deformity. There is grade 1 L4-5 anterolisthesis with moderate disc space narrowing and no obvious spondylolysis on the oblique views. There is disc space narrowing at L5-S1 and L1-2 also. Mild to moderate lower lumbar facet arthropathy. Symmetric SI joints. Moderate calcification of aorta. IMPRESSION: Moderate degenerative changes with L4-5 anterolisthesis. Interpreted by: Bruce Iraheta MD Preliminary Report By: Bruce Iraheta MD Electronically signed By Bruce Iraheta MD Dictated Date: 10/14/2024 10:00:50 AM Prelim Date: 10/14/2024 10:02:10 AM Sign Date: 10/14/2024 10:02:10 AM Ordering Provider: MATHIEU Lacy [facility] .Auto Diffon 10-12-2024 Basophil, Absolute 0.0 10 3/mcL Normal 0.0-0.2 [facility] Comment on above: Performed By: #### C BC, ANEU, ADIFF #### [address] [address] Basophils/100 WBC (Bld) 1.2 % Normal 0.0-2.5 [facility] Comment on above: Performed By: #### C BC, ANEU, ADIFF #### [address] [address] Eosinophil, Absolute 0.0 10 3/mcL Normal 0.0-0.7 [facility] Comment on above: Performed By: #### C BC, ANEU, ADIFF #### [address] [address] Eosinophils/100 WBC (Bld) 1.2 % Normal 0.0-7.0 [facility] Comment on above: Performed By: #### C BC, ANEU, ADIFF #### [address] [address] Lymphocyte, Absolute 1.3 10 3/mcL Normal 0.9-4.3 [facility] Comment on above: Performed By: #### C BC, ANEU, ADIFF #### [address] [address] Lymphocytes/100 WBC (Bld) 32.3 % Normal 20.0-40.0 [facility] Comment on above: Performed By: #### C BC, ANEU, ADIFF #### [address] [address] Monocyte, Absolute 0.4 10 3/mcL Normal 0.1-1.4 [facility] Comment on above: Performed By: #### C BC, ANEU, ADIFF #### [address] [address] Monocytes/100 WBC (Bld) 9.2 % Normal 2.0-13.0 [facility] Comment on above: Performed By: #### C BC, ANEU, ADIFF #### [address] [address] Neutrophils/100 WBC (Bld) 56.1 % Normal 50.0-75.0 [facility] Comment on above: Performed By: #### C BC, ANEU, ADIFF #### [address] [address] .NEUABSon 10-12-2024 Neutrophil, Absolute 2.3 10 3/mcL Normal 2.3-8.1 [facility] Comment on above: Performed By: #### G FR, BMP #### [place] [address] CBCon 10-12-2024 Erythrocyte distribution width (RBC) [Ratio] 13.4 % Normal 11.5-15.5 [facility] Comment on above: Performed By: #### C BC, ANEU, ADIFF #### [place] [address] Hematocrit (Bld) [Volume fraction] 43.4 % Normal 34.0-46.0 [facility] Comment on above: Performed By: #### C BC, ANEU, ADIFF #### [place] [address] Hgb 14.6 G/dL Normal 12.0-16.0 [facility] Comment on above: Performed By: #### C BC, ANEU, ADIFF #### [place] [address] MCH (RBC) [Entitic mass] 31.1 pg Normal 27.0-33.0 [facility] Comment on above: Performed By: #### C BC, ANEU, ADIFF #### [place] [address] MCHC 33.7 G/dL Normal 32.0-36.0 [facility] Comment on above: Performed By: #### C BC, ANEU, ADIFF #### [place] [address] MCV (RBC) [Entitic vol] 92.4 fL Normal 80.0-99.0 [facility] Comment on above: Performed By: #### C EDWARD ROCHA, ADIFF #### [place] [address] [place], [place] [address] Platelet 127 10 3/mcL Low 150-450 [facility] Comment on above: Performed By: #### C EDWARD ROCHA, ADIFF #### [place] [address] [place], [place] [address] Platelet mean volume (Bld) [Entitic vol] 9.4 fL Normal 6.6-10.5 [facility] Comment on above: Performed By: #### C EDWARD ROCHA, ADIFF #### [place] [address] [place], [place] [address] RBC 4.70 10 6/mcL Normal 4.10-5.30 [facility] Comment on above: Performed By: #### C EDWARD ROCHA, ADIFF #### [place] [address] [place], [place] [address] WBC 4.2 10 3/mcL Low 4.5-10.8 [facility] Comment on above: Performed By: #### C EDWARD ROCHA, ADIFF #### [address] [address] LABORATORYOrdered By: SYSTEM SYSTEM on 10-12-2024 Basophils (Bld) [#/Vol] 0.0 103/mcL Normal 0.0 - 0.2 10^3/mcL AO Workflow SS Basophils/100 WBC (Bld) 1.2 % Normal 0.0 - 2.5 % AO Workflow SS Eosinophil, Absolute 0.0 103/mcL Normal 0.0 - 0 .7 10^3/mcL AO Workflow SS Eosinophils/100 WBC (Bld) 1.2 % Normal 0.0 - 7.0 % AO Workflow SS Erythrocyte distribution width (RBC) [Ratio] 13.4 % Normal 11.5 - 15.5 % AO Workflow SS Hematocrit (Bld) [Volume fraction] 43.4 % Normal 34.0 - 46.0 % AO Workflow SS Hemoglobin (Bld) [Mass/Vol] 14.6 G/dL Normal 12.0 - 16.0 G/dL AO Workflow SS Lymphocytes (Bld) [#/Vol] 1.3 103/mcL Normal 0.9 - 4.3 10^3/mcL AO Workflow SS Lymphocytes/100 WBC (Bld) 32.3 % Normal 20.0 - 40.0 % AO Workflow SS MCH (RBC) [Entitic mass] 31.1 pg Normal 27. 0 - 33.0 pg AO Workflow SS MCHC 33.7 G/dL Normal 32.0 - 36.0 G/dL AO Workflow SS MCV (RBC) [Entitic vol] 92.4 fL Normal 80.0 - 99.0 fL AO Workflow SS Monocytes (Bld) [#/Vol] 0.4 103/mcL Normal 0.1 - 1.4 10^3/mcL AO Workflow SS Monocytes/100 WBC (Bld) 9.2 % Normal 2.0 - 13.0 % AO Workflow SS Neutrophils (Bld) [#/Vol] 2.3 103/mcL Normal 2.3 - 8.1 10^3/mcL AO Workflow SS Neutrophils/100 WBC (Bld) 56.1 % Normal 50.0 - 75.0 % AO Workflow SS Platelet mean volume (Bld) [Entitic vol] 9.4 fL Normal 6.6 - 10.5 fL AO Workflow SS Platelets (Bld) [#/Vol] 127 103/mcL Low 150 - 450 10^3/mcL AO Workflow SS RBC (Bld) [#/Vol] 4.70 106/mcL Normal 4.10 - 5.3 0 10^6/mcL AO Workflow SS WBC (Bld) [#/Vol] 4.2 103/mcL Low 4.5 - 10.8 10^3/mcL AO Workflow SS DRUG TOX MONITORING 4 W/CONF , URINEon 09-19-2024 Alphahydroxyalprazolam 164 ng/mL High <25 [facility] Comment on above: Order Comment: FASTI NG: UNKNOWN Result Comment: See Note 1 Performed By: #### 9 1484 #### [facility] [address] [place] [address], [address] [place] [id number] [employer] Walker: Duncan Mccormack MD Alphahydroxymidazolam Negative Normal <[address] [facility] Comment on above: Order Comment: FASTI NG: UNKNOWN Result Comment: See Note 1 Performed By: #### 9 1484 #### [facility] of [address], [address] [place] [address] [employer] Walker: Duncan Mccormack MD Alphahydroxytriazolam Negative Normal <[address] [facility] Comment on above: Order Comment: FASTI NG: UNKNOWN Result Comment: See Note 1 Performed By: #### 9 1484 #### [facility] of [address], [address] [place] [address] [employer] Walker: Duncan Mccormack MD Aminoclonazepam Negative Normal <25 [facility] Comment on above: Order Comment: FASTI NG: UNKNOWN Result Comment: See Note 1 Performed By: #### 9 1484 #### [facility] of [address], [address] [place] [address] [employer] Walker: Duncan Mccormack MD Amphetamines Negative Normal <500 [facility] Comment on above: Order Comment: FASTI NG: UNKNOWN Performed By: #### 9 1484 #### [facility] of [address], [address] [place] [address] [employer] Walker: Duncan Mccormack MD Barbiturates Negative Normal <300 [facility] Comment on above: Order Comment: FASTI NG: UNKNOWN Performed By: #### 9 1484 #### [facility] of [address], [address] [place] [address] [employer] Walker: Duncan Mccormack MD Benzodiazepines Positive Abnormal <100 [facility] Comment on above: Order Comment: FASTI NG: UNKNOWN Performed By: #### 9 1484 #### [facility] of [address], [address] [place] [address] [employer] Floor Walker: Duncan Mccormack MD Buprenorphine Negative Normal <5 [facility] Comment on above: Order Comment: FASTI NG: UNKNOWN Performed By: #### 9 1484 #### [facility] of [address], [address] [place] [address] [employer] Walker: Duncan Mccormack MD Cocaine Metabolite Negative Normal <150 [facility] Comment on above: Order Comment: FASTI NG: UNKNOWN Performed By: #### 9 1484 #### [facility] [address], [address] [place] [address] [employer] Walker: Duncan Mccormack MD Codeine Negative Normal <50 [facility] Comment on above: Order Comment: FASTI NG: UNKNOWN Result Comment: See Note 1 Performed By: #### 9 1484 #### [facility] [place] [address] [employer] Walker: Duncan Mccormack MD COMMENT Normal [facility] Comment on above: Order Comment: FASTI NG: UNKNOWN Result Comment: See Note 2 Note 1 This test was developed and its analytical performance characteristics have been determined by [facility]. It has not been cleared or approved by the FDA. This assay has been validated pursuant to the CLIA regulations and is used for clinical purposes. Note 2 This drug testing is for medical treatment only. Analysis was performed as non-forensic testing and these results should be used only by healthcare providers to render diagnosis or treatment, or to monitor progress of medical conditions. For assistance with interpreting these drug results, please contact a [facility] Toxicology Specialist: [phone] M-F, 8am-6pm EST. Performed By: #### 9 1484 #### [facility] [address], [address] [place] [address] [employer] Floor Walker: Duncan Mccormack MD Heroin Metabolite Negative Normal <10 [facility] Comment on above: Order Comment: FASTI NG: UNKNOWN Performed By: #### 9 1484 #### [facility] [place] [address] [employer] Walker: Duncan Mccormack MD Hydrocodone 395 ng/mL High <50 [facility] Comment on above: Order Comment: FASTI NG: UNKNOWN Result Comment: See Note 1 Performed By: #### 9 1484 #### [facility] [place] [address] [employer] Floor Walker: Duncan Mccormack MD Hydromorphone 69 ng/mL High <50 [facility] Comment on above: Order Comment: FASTI NG: UNKNOWN Result Comment: See Note 1 Performed By: #### 9 1484 #### [facility] of [address], [address] [place] [address] [employer] Floor Walker: Duncan Mccormack MD Hydroxyethylflurazepam Negative Normal <50 [facility] Comment on above: Order Comment: FASTI NG: UNKNOWN Result Comment: See Note 1 Performed By: #### 9 1484 #### [facility] of [address], [address] [place] [address] [employer] Floor Walker: Duncan Mccormack MD Lorazepam Negative Normal <50 [facility] Comment on above: Order Comment: FASTI NG: UNKNOWN Result Comment: See Note 1 Performed By: #### 9 1484 #### [facility] of [place] [address] [employer] Walker: Duncan Mccormack MD Marijuana Metabolite 20 Negative Normal <20 [facility] Comment on above: Order Comment: FASTI NG: UNKNOWN Performed By: #### 9 1484 #### [facility] of [place] [address] [employer] Walker: Duncan Mccormack MD Methadone Metabolite Negative Normal <100 [facility] Comment on above: Order Comment: FASTI NG: UNKNOWN Performed By: #### 9 1484 #### [facility] of [place] [address] [employer] Floor Walker: Duncan Mccormack MD Morphine Negative Normal <50 [facility] Comment on above: Order Comment: FASTI NG: UNKNOWN Result Comment: See Note 1 Performed By: #### 9 1484 #### [facility] of [place] [address] [employer] Walker: Duncan Mccormack MD Nordiazepam Negative Normal <50 [facility] Comment on above: Order Comment: FASTI NG: UNKNOWN Result Comment: See Note 1 Performed By: #### 9 1484 #### [facility] of [address], [address] [place] [address] [employer] Floor Walker: Duncan Mccormack MD Norhydrocodone 851 ng/mL High <50 [facility] Comment on above: Order Comment: FASTI NG: UNKNOWN Result Comment: See Note 1 Performed By: #### 9 1484 #### [facility] of [address], [address] [place] [address] [employer] Floor Walker: Duncan Mccormack MD Opiates Positive Abnormal <100 [facility] Comment on above: Order Comment: FASTI NG: UNKNOWN Performed By: #### 9 1484 #### [facility] of [address], [address] [place] [address] [employer] Floor Walker: Duncan Mccormack MD Oxazepam Negative Normal <50 [facility] Comment on above: Order Comment: FASTI NG: UNKNOWN Result Comment: See Note 1 Performed By: #### 9 1484 #### [facility] of [place] [address] [employer] Floor Walker: Duncan Mccormack MD Oxycodone Negative Normal <100 [facility] Comment on above: Order Comment: FASTI NG: UNKNOWN Performed By: #### 9 1484 #### [facility] of [place] [address] [employer] Walker: Duncan Mccormack MD Phencyclidine Negative Normal <25 [facility] Comment on above: Order Comment: FASTI NG: UNKNOWN Performed By: #### 9 1484 #### [facility] of [place] [address] [employer] Walker: Duncan Mccormack MD Temazepam Negative Normal <50 [facility] Comment on above: Order Comment: FASTI NG: UNKNOWN Result Comment: See Note 1 Performed By: #### 9 1484 #### [facility] of [place] [address] [employer] Walker: Duncan Mccormack MD .GFRon 09-05-2024 GFR 72 ml/min/1.73sqm Normal [facility] Comment on above: Result Comment: GFR Population mean for , Non- Americans Ages 20-29 = 116 mL/min/1.73 sq.m. Ages 30-39 = 107 mL/min/1.73 sq.m. Ages 40-49 = 99 mL/min/1.73 sq.m. Ages 50-59 = 93 mL/min/1.73 sq.m. Ages 60-69 = 85 mL/min/1.73 sq.m. Ages 70+ = 75 mL/min/1.73 sq.m. Chronic Kidney Disease: Less than 60 mL/min/1.73 square meters End Stage Renal Disease: Less than 15 mL/min/1.73 square meters Performed By: #### G , BMP #### [address] [address] GFR Non- 59 ml/min/1.73sqm Normal [facility] Comment on above: Result Comment: GFR Population mean for , Non- Americans Ages 20-29 = 116 mL/min/1.73 sq.m. Ages 30-39 = 107 mL/min/1.73 sq.m. Ages 40-49 = 99 mL/min/1.73 sq.m. Ages 50-59 = 93 mL/min/1.73 sq.m. Ages 60-69 = 85 mL/min/1.73 sq.m. Ages 70+ = 75 mL/min/1.73 sq.m. Chronic Kidney Disease: Less than 60 mL/min/1.73 square meters End Stage Renal Disease: Less than 15 mL/min/1.73 square meters Performed By: #### G , BMP #### [address] [address] A1Con 09-05-2024 Glucose [Mass/Vol] 128 mg/dL Normal [facility] Comment on above: Result Comment: [place] mated Average Glucose calculated by equation ((28.7xA1C)-46.7) Estimated average glucose (eAG) is a calculated value from Hemoglobin A1C and is sales representative rural power of the average blood glucose level in the last 2-3 month period. Normal range: less than 114 mg/dL Performed By: #### G , BMP #### [address] [address] HbA1c (Bld) [Mass fraction] 6.1 % Normal 4.3-6.4 [facility] Comment on above: Performed By: #### G , BMP #### [address] [address] CMPon 09-05-2024 Albumin Level 3.5 G/dL Normal 3.4-4.8 [facility] Comment on above: Performed By: #### G , BMP #### [address] [address] Albumin/Globulin [Mass ratio] 1.2 {ratio} Normal 1.1-2.5 [facility] Comment on above: Performed By: #### Ingris YATES, BMP #### [address] [address] ALP [Catalytic activity/Vol] 81 U/L Normal 40-135 [facility] Comment on above: Performed By: #### Ingris YATES, BMP #### [address] [address] ALT [Catalytic activity/Vol] 16 U/L Normal 14-59 [facility] Comment on above: Performed By: #### Ingris YATES, BMP #### [address] [address] AST [Catalytic activity/Vol] 18 U/L Normal 10-40 [facility] Comment on above: Performed By: #### Ingris YATES, BMP #### [address] [address] Bili Total 0.7 mg/dL Normal 0.2-1.0 [facility] Comment on above: Result Comment: Use of this assay is not recommended for patients undergoing treatment with eltrombopag due to the potential for falsely elevated results. Performed By: #### G , BMP #### [address] [address] BUN/Creatinine Ratio 12 ratio Normal 7-27 [facility] Comment on above: Performed By: #### Ingris YATES, BMP #### [address] [address] Calcium [Mass/Vol] 9.2 mg/dL Normal 8.4-10.2 [facility] Comment on above: Performed By: #### G FR, BMP #### [address] [address] Chloride [Moles/Vol] 105 mmol/L Normal 98-107 [facility] Comment on above: Performed By: #### G FR, BMP #### [address] [address] CO2 [Moles/Vol] 34 mmol/L High 23-31 [facility] Comment on above: Performed By: #### G FR, BMP #### [address] [address] Creatinine [Mass/Vol] 0.92 mg/dL Normal 0.55-1.02 [facility] Comment on above: Result Comment: Test ing performed on Siemens Dimension EXL analyzer using a modified kinetic Michael technique. Performed By: #### G , BMP #### [address] [address] Electrolyte Balance 6.0 mEq/L Normal 4.0-15.0 [facility] Comment on above: Performed By: #### G , BMP #### [address] [address] Globulin 2.9 G/dL Normal [facility] Comment on above: Performed By: #### G FR, BMP #### [address] [address] Glucose [Mass/Vol] 118 mg/dL High 83-110 [facility] Comment on above: Performed By: #### G FR, BMP #### [address] [address] Potassium [Moles/Vol] 4.0 mmol/L Normal 3.5-5.1 [facility] Comment on above: Performed By: #### G FR, BMP #### [address] [address] Sodium [Moles/Vol] 145 mmol/L Normal 136-145 [facility] Comment on above: Performed By: #### G FR, BMP #### [address] [address] Total Protein 6.4 G/dL Normal 6.4-8.2 [facility] Comment on above: Performed By: #### G FR, BMP #### [address] [address] Urea nitrogen [Mass/Vol] 11 mg/dL Normal 7-18 [facility] Comment on above: Performed By: #### G , BMP #### [address] [address] FT3on 09-05-2024 Free T3 [Mass/Vol] 1.98 pg/mL Low 2.30-4.00 [facility] Comment on above: Performed By: #### G , BMP #### [address] [address] FT4on 09-05-2024 Free T4 [Mass/Vol] 1.13 ng/dL Normal 0.76-1.46 [facility] Comment on above: Performed By: #### Ingris , BMP #### [address] [address] LABORATORYOrdered By: Wisam Perez on 09-05-2024 Albumin DL <= 20 mg/L (U) [Mass/Vol] 200 mcg/dL Invalid Interpretation Code AO ADM SS Albumin/Creatinine DL <= 20 mg/L (U) [Mass ratio] 2 mcg/mg Normal 0 - 30 mcg/mg AO Chemistry S Creatinine (U) [Mass/Vol] 79.8 mg/dL Invalid Interpretation Code AO ADM SS LABORATORYOrdered By: SYSTEM SYSTEM on 09-05-2024 25-hydroxyvitamin D3 [Mass/Vol] 35.4 ng/mL Invalid Interpretation Code AO ADM SS Comment on above: Interpretive Data: I nterpretive Values Based on Total 25(OH) Vitamin D: Deficient <20 ng/mL Insufficient 20 - <30 ng/mL Sufficient 30-100 ng/mL Albumin BCP dye [Mass/Vol] 3.5 G/dL Normal 3.4 - 4.8 G/dL AO ADM SS Albumin/Globulin [Mass ratio] 1.2 {ratio} Normal 1.1 - 2.5 ratio AO ADM SS ALP [Catalytic activity/Vol] 81 U/L Normal 40 - 135 U/L AO ADM SS ALT With P-5'-P [Catalytic activity/Vol] 16 U/L Normal 14 - 59 U/L AO ADM SS AST With P-5'-P [Catalytic activity/Vol] 18 U/L Normal 10 - 40 U/L AO ADM SS Bilirubin [Mass/Vol] 0.7 mg/dL Normal 0.2 - 1 .0 mg/dL AO ADM SS Comment on above: Interpretive Data: U se of this assay is not recommended for patients undergoing treatment with eltrombopag due to the potential for falsely elevated results. Calcium [Mass/Vol] 9.2 mg/dL Normal 8.4 - 10. 2 mg/dL AO ADM SS Chloride [Moles/Vol] 105 mmol/L Normal 98 - 10 7 mmol/L AO ADM SS CO2 [Moles/Vol] 34 mmol/L High 23 - 31 mmol/L AO ADM SS Creatinine [Mass/Vol] 0.92 mg/dL Normal 0.55 - 1.02 mg/dL AO ADM SS Comment on above: Interpretive Data: T esting performed on Siemens Dimension EXL analyzer using a modified kinetic Michael technique. Electrolyte Balance 6.0 mEq/L Normal 4.0 - 15 .0 mEq/L AO ADM SS Free T3 [Mass/Vol] 1.98 pg/mL Low 2.30 - 4. 00 pg/mL AO ADM SS Free T4 [Mass/Vol] 1.13 ng/dL Normal 0.76 - 1. 46 ng/dL AO ADM SS GFR/1.73 sq M.predicted among blacks MDRD (S/P/Bld) [Vol rate/Area] 72 ml/min/1.73sqm Invalid Interpretation Code AO Chemistry S Comment on above: Interpretive Data: GFR Population mean for , Non- Americans Ages 20-29 = 116 mL/min/1.73 sq.m. Ages 30-39 = 107 mL/min/1.73 sq.m. Ages 40-49 = 99 mL/min/1.73 sq.m. Ages 50-59 = 93 mL/min/1.73 sq.m. Ages 60-69 = 85 mL/min/1.73 sq.m. Ages 70+ = 75 mL/min/1.73 sq.m. Chronic Kidney Disease: Less than 60 mL/min/1.73 square meters End Stage Renal Disease: Less than 15 mL/min/1.73 square meters GFR/1.73 sq M.predicted among non-blacks MDRD (S/P/Bld) [Vol rate/Area] 59 ml/min/1.73sqm Invalid Interpretation Code AO Chemistry S Comment on above: Interpretive Data: GFR Population mean for , Non- Americans Ages 20-29 = 116 mL/min/1.73 sq.m. Ages 30-39 = 107 mL/min/1.73 sq.m. Ages 40-49 = 99 mL/min/1.73 sq.m. Ages 50-59 = 93 mL/min/1.73 sq.m. Ages 60-69 = 85 mL/min/1.73 sq.m. Ages 70+ = 75 mL/min/1.73 sq.m. Chronic Kidney Disease: Less than 60 mL/min/1.73 square meters End Stage Renal Disease: Less than 15 mL/min/1.73 square meters Globulin 2.9 G/dL Invalid Interpretation Code AO ADM SS Glucose [Mass/Vol] 128 mg/dL Invalid Interpretation Code AO Chemistry S Comment on above: Interpretive Data: E stimated average glucose (eAG) is a calculated value from Hemoglobin A1C and is sales representative rural power of the average blood glucose level in the last 2-3 month period. Normal range: less than 114 mg/dL Glucose [Mass/Vol] 118 mg/dL High 83 - 110 mg/dL AO ADM SS HbA1c (Bld) [Mass fraction] 6.1 % Normal 4.3 - 6.4 % AO ADM SS Potassium [Moles/Vol] 4.0 mmol/L Normal 3.5 - 5.1 mmol/L AO ADM SS Protein [Mass/Vol] 6.4 G/dL Normal 6.4 - 8.2 G/dL AO ADM SS Sodium [Moles/Vol] 145 mmol/L Normal 136 - 145 mmol/L AO ADM SS TSH Qn 1.76 m[IU]/L Normal 0.36 - 3.74 mcIU/mL AO ADM SS Urea nitrogen [Mass/Vol] 11 mg/dL Normal 7 - 18 mg/dL AO ADM SS Urea nitrogen/Creatinine [Mass ratio] 12 ratio Normal 7 - 27 ratio AO ADM SS LABORATORYOrdered By: Matthew susana Hodgson on 09-05-2024 Cholesterol [Mass/Vol] 174 mg/dL Normal 0 - 2 00 mg/dL AO ADM SS Comment on above: Interpretive Data: C holesterol Reference Interval: Less than 200 Desirable 200-239 Borderline high risk 240 and above High risk Cholesterol in HDL [Mass/Vol] 43 mg/dL Normal 40 - 60 mg/dL AO ADM SS Cholesterol in LDL [Mass/Vol] 115 mg/dL Normal 0 - 130 mg/dL AO ADM SS Triglyceride [Mass/Vol] 80 mg/dL Normal 0 - 150 mg/dL AO ADM SS Comment on above: Interpretive Data: T riglyceride Reference Interval: Less than 150 Normal 150-199 Borderline high risk 200-499 High risk 500 or higher Very high risk LIPIDon 09-05-2024 Cholesterol [Mass/Vol] 174 mg/dL Normal 0-200 [facility] Comment on above: Result Comment: Chol esterol Reference Interval: Less than 200 Desirable 200-239 Borderline high risk 240 and above High risk Performed By: #### G FR, BMP #### [address] [address] Cholesterol in HDL [Mass/Vol] 43 mg/dL Normal 40-60 [facility] Comment on above: Performed By: #### G FR, BMP #### [address] [address] Cholesterol in LDL [Mass/Vol] 115 mg/dL Normal 0-130 [facility] Comment on above: Performed By: #### G FR, BMP #### [address] [address] Triglyceride [Mass/Vol] 80 mg/dL Normal 0-150 [facility] Comment on above: Result Comment: Trig lyceride Reference Interval: Less than 150 Normal 150-199 Borderline high risk 200-499 High risk 500 or higher Very high risk Performed By: #### G FR, BMP #### [address] [address] MALBRon 09-05-2024 U Creatinine 79.8 mg/dL Normal [facility] Comment on above: Performed By: #### G , BMP #### [address] [address] U Microalb 200 mcg/dL Normal [facility] Comment on above: Performed By: #### G , BMP #### [address] [address] U Ratio Alb/Cre 2 mcg/mg Normal 0-30 [facility] Comment on above: Performed By: #### Ingris YATES, BMP #### [address] [address] TSHon 09-05-2024 TSH Qn 1.76 m[IU]/L Normal 0.36-3.74 [facility] Comment on above: Performed By: #### Ingris YATES, BMP #### [address] [address] VIDHon 09-05-2024 Vit. D 25-Hydroxy 35.4 ng/mL Normal [facility] Comment on above: Result Comment: Inte rpretive Values Based on Total 25(OH) Vitamin D: Deficient <20 ng/mL Insufficient 20 - <30 ng/mL Sufficient 30-100 ng/mL Performed By: #### Ingris YATES, BMP #### [address] [address] [place] MAMMOGRAM SCREENING BILAT ERAL W/TOMOon 08-31-2024 MA MAMMOGRAM SCREENING BILATERAL W/NATO ORIGINAL FROM: [address] [address] PROCEDURE FOR: RAGHAV GREGORY [address] [place] [id number] Home: PID#: [id number] Exam#: [id number] : 1950 Age: 74 TO: MATHIEU ROLAND DO [address] [address] Fax: NO FAX EXAMINATION: SCREENING DIGITAL BILATERAL MAMMOGRAM WITH TOMOSYNTHESIS, 08/29/2024 2:37 pm TECHNIQUE: Screening mammography of the bilateral breasts was performed with tomosynthesis. 2D standard and 3D tomosynthesis combination imaging performed through both breasts in the MLO and CC projection. Computer aided detection was utilized in the interpretation of this exam. COMPARISON: 08/20/2023, 06/02/2022 HISTORY: Breast cancer screening. FINDINGS: BREAST DENSITY: There are scattered areas of fibroglandular density. There are benign appearing calcifications in both breasts. There are no significant masses or calcifications. IMPRESSION: No mammographic evidence of malignancy. Continued screening with annual mammograms is recommended. [facility] risk calculations, generated with the history provided, report this patient's lifetime risk for developing breast cancer at 9.4%. Based on this assessment tool, if the patient's calculated lifetime risk is below 20%, then the patient is considered at average risk for developing breast cancer. If the patient's calculated lifetime risk is at or above 20%, then the patient is considered high risk for developing breast cancer and may be a candidate for supplemental breast MRI screening in addition to annual mammographic screening per the [employer] [place]. BIRADS: BI-RADS: 2: Benign RECALL: 1 year screening RECALL TYPE: mammo LETTER SENT: Normal BI-RADS 1 and 2 Interpreted by: Eder Victoria MD Preliminary Report By: Eder Victoria MD Electronically signed By Eder Victoria MD Dictated Date: 08/31/2024 5:04:35 PM Prelim Date: 08/31/2024 5:06:44 PM Sign Date: 08/31/2024 5:06:44 PM Ordering Provider: MATHIEU ROLAND Patient Account Liaison: STACI QUIROS RT(R)(CT) letter sent: Normal BI-RADS 1 and 2 Mammogram BI-RADS: 2 Benign Normal [facility] BD BONE DENSITY DEXA AXIAL S EDDIEon 08-30-2024 BD BONE DENSITY DEXA AXIAL SKELETON ORIGINAL EXAMINATION: BONE DENSITOMETRY 08/30/2024 6:00 am TECHNIQUE: A bone density dual x-ray absorptiometry (DEXA) scan was performed of the spine and left hip on a [employer] system. COMPARISON: 06/02/2022 HISTORY: ORDERING SYSTEM PROVIDED HISTORY: Reason for Exam: Osteoporosis Screening FINDINGS: T Score Left Femoral Neck: 0.2 Left Femoral Neck: 0.872 (g/cm2) T Score Left Hip: -0.4 Left Hip: 0.893 (g/cm2) T Score Lumbar Spine: 1.5 Lumbar Spine: 1.216 (g/cmd2) *By the World Health Organization standards: Osteopenia is present when the bone mineral density is greater than 1 standard deviation (SD) but less than 2.5 SDs below a young normal sex matched population. Osteoporosis is present when the bone mineral density is equal to or greater than 2.5 SDs below a young normal sex matched population. BMD Change from previous Hip: -0.2% BMD Change from previous Lumbar Spine: -0.1% FRAX not reported because all T-scores at or above -1.0 IMPRESSION: Normal bone mineral density by WHO criteria. Interpreted by: Ronnie Gibson MD Preliminary Report By: Ronnie Gibson MD Electronically signed By Ronnie Gibson MD Dictated Date: 08/30/2024 11:26:45 AM Prelim Date: 08/30/2024 11:29:37 AM Sign Date: 08/30/2024 11:29:37 AM Ordering Provider: MATHIEU ROLAND [facility] CT HEAD OR BRAIN W/O CONTRAS Ton 08-29-2024 CT HEAD OR BRAIN W/O CONTRAST ORIGINAL HISTORY: Dizziness, tinnitus, vertigo COMPARISON: No TECHNIQUE: Routine noncontrast head CT, with sagittal and coronal reconstructions. This exam was performed according to our departmental dose optimization program, and includes the following measures where applicable: automated exposure control, adjustment of the mAs and/or kVp according to patient size and/or exam, and an iterative reconstruction algorithm. FINDINGS: The ventricles and sulci are mildly enlarged. There are no abnormal intra or extra-axial fluid collections. Becerra-white matter differentiation is maintained. There are atherosclerotic changes to the anterior and posterior circulation. The calvaria and the bones of the base of the skull are intact. IMPRESSION: Mild volume loss and small vessel ischemic disease. Interpreted by: Kaz Gustafson MD Preliminary Report By: Kaz Gustafson MD Electronically signed By Kaz Gustafson MD Dictated Date: 08/29/2024 2:34:30 PM Prelim Date: 08/29/2024 2:35:35 PM Sign Date: 08/29/2024 2:35:35 PM Ordering Provider: MATHIEU ROLAND [facility] DRUG TOX MONITORING 4 W/CONF , URINEon 03-21-2024 Alphahydroxyalprazolam 298 ng/mL High <25 [facility] Comment on above: Order Comment: FASTI NG: UNKNOWN Result Comment: See Note 1 Performed By: #### 9 1484 #### [facility] of [address], [address] [place] [address] [employer] Floor Walker: Duncan Mccormack MD Alphahydroxymidazolam Negative Normal <[address] [facility] Comment on above: Order Comment: FASTI NG: UNKNOWN Result Comment: See Note 1 Performed By: #### 9 1484 #### [facility] of [place] [address] [employer] Floor Walker: Duncan Mccormack MD Alphahydroxytriazolam Negative Normal <[address] [facility] Comment on above: Order Comment: FASTI NG: UNKNOWN Result Comment: See Note 1 Performed By: #### 9 1484 #### [facility] of [place] [address] [employer] Floor Walker: Duncan Mccormack MD Aminoclonazepam Negative Normal <25 [facility] Comment on above: Order Comment: FASTI NG: UNKNOWN Result Comment: See Note 1 Performed By: #### 9 1484 #### [facility] [place] [address] [employer] Floor Walker: Duncan Mccormack MD Amphetamines Negative Normal <500 [facility] Comment on above: Order Comment: FASTI NG: UNKNOWN Performed By: #### 9 1484 #### [facility] of [place] [address] [employer] Floor Walker: Duncan Mccormack MD Barbiturates Negative Normal <300 [facility] Comment on above: Order Comment: FASTI NG: UNKNOWN Performed By: #### 9 1484 #### [facility] of [place] [address] [employer] Floor Walker: Duncan Mccormack MD Benzodiazepines Positive Abnormal <100 [facility] Comment on above: Order Comment: FASTI NG: UNKNOWN Performed By: #### 9 1484 #### [facility] of [address], [address] [place] [address] [employer] Floor Walker: Duncan Mccormack MD Buprenorphine Negative Normal <5 [facility] Comment on above: Order Comment: FASTI NG: UNKNOWN Performed By: #### 9 1484 #### [facility] of [address], [address] [place] [address] Casino Floor Walker: Duncan Mccormack MD Cocaine Metabolite Negative Normal <150 [facility] Comment on above: Order Comment: FASTI NG: UNKNOWN Performed By: #### 9 1484 #### [facility] of [address], [address] [place] [address] Casino Floor Walker: Duncan Mccormack MD Codeine Negative Normal <50 [facility] Comment on above: Order Comment: FASTI NG: UNKNOWN Result Comment: See Note 1 Performed By: #### 9 1484 #### [facility] [address], [address] [place] [address] [employer] Floor Walker: Duncan Mccormack MD COMMENT Normal [facility] Comment on above: Order Comment: FASTI NG: UNKNOWN Result Comment: See Note 2 Note 1 This test was developed and its analytical performance characteristics have been determined by [employer]. It has not been cleared or approved by the FDA. This assay has been validated pursuant to the CLIA regulations and is used for clinical purposes. Note 2 This drug testing is for medical treatment only. Analysis was performed as non-forensic testing and these results should be used only by healthcare providers to render diagnosis or treatment, or to monitor progress of medical conditions. For assistance with interpreting these drug results, please contact a [facility] Toxicology Specialist: [phone] ( ), M-F, 8am-6pm EST. Performed By: #### 9 1484 #### [facility] of [address], [address] [place] [address] [employer] Floor Walker: Duncan Mccormack MD Heroin Metabolite Negative Normal <10 [facility] Comment on above: Order Comment: FASTI NG: UNKNOWN Performed By: #### 9 1484 #### [facility] of [address], [address] [place] [address] [employer] Floor Walker: Duncan Mccormack MD Hydrocodone 689 ng/mL High <50 [facility] Comment on above: Order Comment: FASTI NG: UNKNOWN Result Comment: See Note 1 Performed By: #### 9 1484 #### [facility] of [place] [address] [employer] Floor Walker: Duncan Mccormack MD Hydromorphone 187 ng/mL High <50 [facility] Comment on above: Order Comment: FASTI NG: UNKNOWN Result Comment: See Note 1 Performed By: #### 9 1484 #### [facility] [place] [address] [employer] Floor Walker: Duncan Mccormack MD Hydroxyethylflurazepam Negative Normal <50 [facility] Comment on above: Order Comment: FASTI NG: UNKNOWN Result Comment: See Note 1 Performed By: #### 9 1484 #### [facility] [place] [address] [employer] Floor Walker: Duncan Mccormack MD Lorazepam Negative Normal <50 [facility] Comment on above: Order Comment: FASTI NG: UNKNOWN Result Comment: See Note 1 Performed By: #### 9 1484 #### [facility] [place] [address] [employer] Floor Walker: Duncan Mccormack MD Marijuana Metabolite 20 Negative Normal <20 [facility] Comment on above: Order Comment: FASTI NG: UNKNOWN Performed By: #### 9 1484 #### [facility] of [place] [address] [employer] Floor Walker: Duncan Mccormack MD Methadone Metabolite Negative Normal <100 [facility] Comment on above: Order Comment: FASTI NG: UNKNOWN Performed By: #### 9 1484 #### [facility] [place] [address] [employer] Floor Walker: Duncan Mccormack MD Morphine Negative Normal <50 [facility] Comment on above: Order Comment: FASTI NG: UNKNOWN Result Comment: See Note 1 Performed By: #### 9 1484 #### [facility] of [address], [address] [place], [place] [id number] [employer] Floor Walker: Duncan Mccormack MD Nordiazepam Negative Normal <50 [facility] Comment on above: Order Comment: FASTI NG: UNKNOWN Result Comment: See Note 1 Performed By: #### 9 1484 #### [facility] of [address], [address] [place] [address] Casino Floor Walker: Duncan Mccormack MD Norhydrocodone 1360 ng/mL High <50 [facility] Comment on above: Order Comment: FASTI NG: UNKNOWN Result Comment: See Note 1 Performed By: #### 9 1484 #### [facility] of [address], [address] [place] [address] Casino Floor Walker: Duncan Mccormack MD Opiates Positive Abnormal <100 [facility] Comment on above: Order Comment: FASTI NG: UNKNOWN Performed By: #### 9 1484 #### [facility] of [address], [address] [place], [place] [id number] [employer] Floor Walker: Dunacn Mccormack MD Oxazepam Negative Normal <50 [facility] Comment on above: Order Comment: FASTI NG: UNKNOWN Result Comment: See Note 1 Performed By: #### 9 1484 #### [facility] of [address], [address] [place], [place] [id number] Casino Floor Walker: Duncan Mccormack MD Oxycodone Negative Normal <100 [facility] Comment on above: Order Comment: FASTI NG: UNKNOWN Performed By: #### 9 1484 #### [facility] of [address], [address] [place], [place] [id number] Casino Floor Walker: Duncan Mccormack MD Phencyclidine Negative Normal <25 [facility] Comment on above: Order Comment: FASTI NG: UNKNOWN Performed By: #### 9 1484 #### [facility] of [address], [address] [place], [place] [id number] [employer] Floor Walker: Duncan Mccormack MD Temazepam Negative Normal <50 [facility] Comment on above: Order Comment: FASTI NG: UNKNOWN Result Comment: See Note 1 Performed By: #### 9 1484 #### [facility] [address] [facility], [address] [place] [address] [employer] Floor Walker: Duncan Mccormack MD .GFRon 02-29-2024 GFR 93 ml/min/1.73sqm Normal [facility] ([place]) Comment on above: Result Comment: GFR Population mean for , Non- Americans Ages 20-29 = 116 mL/min/1.73 sq.m. Ages 30-39 = 107 mL/min/1.73 sq.m. Ages 40-49 = 99 mL/min/1.73 sq.m. Ages 50-59 = 93 mL/min/1.73 sq.m. Ages 60-69 = 85 mL/min/1.73 sq.m. Ages 70+ = 75 mL/min/1.73 sq.m. Chronic Kidney Disease: Less than 60 mL/min/1.73 square meters End Stage Renal Disease: Less than 15 mL/min/1.73 square meters Performed By: #### C MP, LIPID, VIDH, FT4, A1C, GFR, TSH #### [facility] [address] [address] GFR Non- 77 ml/min/1.73sqm Normal [facility] ([place]) Comment on above: Result Comment: GFR Population mean for , Non- Americans Ages 20-29 = 116 mL/min/1.73 sq.m. Ages 30-39 = 107 mL/min/1.73 sq.m. Ages 40-49 = 99 mL/min/1.73 sq.m. Ages 50-59 = 93 mL/min/1.73 sq.m. Ages 60-69 = 85 mL/min/1.73 sq.m. Ages 70+ = 75 mL/min/1.73 sq.m. Chronic Kidney Disease: Less than 60 mL/min/1.73 square meters End Stage Renal Disease: Less than 15 mL/min/1.73 square meters Performed By: #### C MP, LIPID, VIDH, FT4, A1C, GFR, TSH #### [facility] [address] A1Con 02-29-2024 HbA1c (Bld) [Mass fraction] 6.6 % High 4.3-6.4 [facility] ([place]) Comment on above: Performed By: #### C MP, LIPID, VIDH, FT4, A1C, GFR, TSH #### [address] [address] CMPon 02-29-2024 Albumin Level 3.7 G/dL Normal 3.4-4.8 [facility] ([place]) Comment on above: Performed By: #### C MP, LIPID, VIDH, FT4, A1C, GFR, TSH #### [address] [address] Albumin/Globulin [Mass ratio] 1.3 {ratio} Normal 1.1-2.5 [facility] ([place]) Comment on above: Performed By: #### C MP, LIPID, VIDH, FT4, A1C, GFR, TSH #### [address] [address] ALP [Catalytic activity/Vol] 54 U/L Normal 40-135 [facility] ([place]) Comment on above: Performed By: #### C MP, LIPID, VIDH, FT4, A1C, GFR, TSH #### [address] [address] ALT [Catalytic activity/Vol] 29 U/L Normal 14-59 [facility] ([place]) Comment on above: Performed By: #### C MP, LIPID, VIDH, FT4, A1C, GFR, TSH #### [address] [address] AST [Catalytic activity/Vol] 30 U/L Normal 10-40 [facility] ([place] Comment on above: Performed By: #### C MP, LIPID, VIDH, FT4, A1C, GFR, TSH #### [address] [address] Bili Total 0.6 mg/dL Normal 0.2-1.0 [facility] ([place]) Comment on above: Result Comment: Use of this assay is not recommended for patients undergoing treatment with eltrombopag due to the potential for falsely elevated results. Performed By: #### C MP, LIPID, VIDH, FT4, A1C, GFR, TSH #### [address] [address] BUN/Creatinine Ratio 16 ratio Normal 7-27 [facility] ([place]) Comment on above: Performed By: #### C MP, LIPID, VIDH, FT4, A1C, GFR, TSH #### [address] [address] Calcium [Mass/Vol] 9.2 mg/dL Normal 8.4-10.2 [facility] ([place]) Comment on above: Performed By: #### C MP, LIPID, VIDH, FT4, A1C, GFR, TSH #### [address] [address] Chloride [Moles/Vol] 95 mmol/L Low 98-107 [facility] ([place]) Comment on above: Performed By: #### C MP, LIPID, VIDH, FT4, A1C, GFR, TSH #### [address] [address] CO2 [Moles/Vol] 34 mmol/L High 23-31 [facility] ([place]) Comment on above: Performed By: #### C MP, LIPID, VIDH, FT4, A1C, GFR, TSH #### [address] [address] Creatinine [Mass/Vol] 0.74 mg/dL Normal 0.55-1.02 [facility] ([place]) Comment on above: Performed By: #### C MP, LIPID, VIDH, FT4, A1C, GFR, TSH #### [address] [address] Electrolyte Balance 5.0 mEq/L Normal 4.0-15.0 [facility] ([place]) Comment on above: Performed By: #### C MP, LIPID, VIDH, FT4, A1C, GFR, TSH #### [address] [address] Globulin 2.8 G/dL Normal [facility] ([place]) Comment on above: Performed By: #### C MP, LIPID, VIDH, FT4, A1C, GFR, TSH #### [address] [address] Glucose [Mass/Vol] 123 mg/dL High 83-110 [facility] ([place]) Comment on above: Performed By: #### C MP, LIPID, VIDH, FT4, A1C, GFR, TSH #### [place] [address] [address] Potassium [Moles/Vol] 3.7 mmol/L Normal 3.5-5.1 [facility] ([place]) Comment on above: Performed By: #### C MP, LIPID, VIDH, FT4, A1C, GFR, TSH #### [address] [address] Sodium [Moles/Vol] 134 mmol/L Low 136-145 [facility] ([place]) Comment on above: Performed By: #### C MP, LIPID, VIDH, FT4, A1C, GFR, TSH #### [address] [address] Total Protein 6.5 G/dL Normal 6.4-8.2 [facility] ([place]) Comment on above: Performed By: #### C MP, LIPID, VIDH, FT4, A1C, GFR, TSH #### [address] [address] Urea nitrogen [Mass/Vol] 12 mg/dL Normal 7-18 [facility] ([place]) Comment on above: Performed By: #### C MP, LIPID, VIDH, FT4, A1C, GFR, TSH #### [address] [address] FT3on 02-29-2024 Free T3 [Mass/Vol] 1.97 pg/mL Low 2.30-4.00 [facility] ([place]) Comment on above: Performed By: #### C MP, LIPID, VIDH, FT4, A1C, GFR, TSH #### [facility] [address] [place], [place] [address] FT4on 02-29-2024 Free T4 [Mass/Vol] 1.31 ng/dL Normal 0.76-1.46 [facility] ([place]) Comment on above: Performed By: #### C MP, LIPID, VIDH, FT4, A1C, GFR, TSH #### [place] [address] [place], [place] [address] LABORATORYOrdered By: SYSTEM SYSTEM on 02-29-2024 25-hydroxyvitamin D3 [Mass/Vol] 37.0 ng/mL Invalid Interpretation Code AO ADM SS Comment on above: Interpretive Data: I nterpretive Values Based on Total 25(OH) Vitamin D: Deficient <20 ng/mL Insufficient 20 - <30 ng/mL Sufficient 30-100 ng/mL Albumin BCP dye [Mass/Vol] 3.7 G/dL Normal 3.4 - 4.8 G/dL AO ADM SS Albumin/Globulin [Mass ratio] 1.3 {ratio} Normal 1.1 - 2.5 ratio AO ADM SS ALP [Catalytic activity/Vol] 54 U/L Normal 40 - 135 U/L AO ADM SS ALT With P-5'-P [Catalytic activity/Vol] 29 U/L Normal 14 - 59 U/L AO ADM SS AST With P-5'-P [Catalytic activity/Vol] 30 U/L Normal 10 - 40 U/L AO ADM SS Bilirubin [Mass/Vol] 0.6 mg/dL Normal 0.2 - 1 .0 mg/dL AO ADM SS Comment on above: Interpretive Data: U se of this assay is not recommended for patients undergoing treatment with eltrombopag due to the potential for falsely elevated results. Calcium [Mass/Vol] 9.2 mg/dL Normal 8.4 - 10. 2 mg/dL AO ADM SS Chloride [Moles/Vol] 95 mmol/L Low 98 - 10 7 mmol/L AO ADM SS CO2 [Moles/Vol] 34 mmol/L High 23 - 31 mmol/L AO ADM SS Creatinine [Mass/Vol] 0.74 mg/dL Normal 0.55 - 1.02 mg/dL AO ADM SS Electrolyte Balance 5.0 mEq/L Normal 4.0 - 15 .0 mEq/L AO ADM SS Free T3 [Mass/Vol] 1.97 pg/mL Low 2.30 - 4. 00 pg/mL AO ADM SS Free T4 [Mass/Vol] 1.31 ng/dL Normal 0.76 - 1. 46 ng/dL AO ADM SS GFR/1.73 sq M.predicted among blacks MDRD (S/P/Bld) [Vol rate/Area] 93 ml/min/1.73sqm Invalid Interpretation Code AO Chemistry S Comment on above: Interpretive Data: GFR Population mean for , Non- Americans Ages 20-29 = 116 mL/min/1.73 sq.m. Ages 30-39 = 107 mL/min/1.73 sq.m. Ages 40-49 = 99 mL/min/1.73 sq.m. Ages 50-59 = 93 mL/min/1.73 sq.m. Ages 60-69 = 85 mL/min/1.73 sq.m. Ages 70+ = 75 mL/min/1.73 sq.m. Chronic Kidney Disease: Less than 60 mL/min/1.73 square meters End Stage Renal Disease: Less than 15 mL/min/1.73 square meters GFR/1.73 sq M.predicted among non-blacks MDRD (S/P/Bld) [Vol rate/Area] 77 ml/min/1.73sqm Invalid Interpretation Code AO Chemistry S Comment on above: Interpretive Data: GFR Population mean for , Non- Americans Ages 20-29 = 116 mL/min/1.73 sq.m. Ages 30-39 = 107 mL/min/1.73 sq.m. Ages 40-49 = 99 mL/min/1.73 sq.m. Ages 50-59 = 93 mL/min/1.73 sq.m. Ages 60-69 = 85 mL/min/1.73 sq.m. Ages 70+ = 75 mL/min/1.73 sq.m. Chronic Kidney Disease: Less than 60 mL/min/1.73 square meters End Stage Renal Disease: Less than 15 mL/min/1.73 square meters Globulin 2.8 G/dL Invalid Interpretation Code AO ADM SS Glucose [Mass/Vol] 123 mg/dL High 83 - 110 mg/dL AO ADM SS HbA1c (Bld) [Mass fraction] 6.6 % High 4.3 - 6.4 % AO ADM SS Potassium [Moles/Vol] 3.7 mmol/L Normal 3.5 - 5.1 mmol/L AO ADM SS Protein [Mass/Vol] 6.5 G/dL Normal 6.4 - 8.2 G/dL AO ADM SS Sodium [Moles/Vol] 134 mmol/L Low 136 - 145 mmol/L AO ADM SS TSH Qn 1.68 m[IU]/L Normal 0.36 - 3.74 mcIU/mL AO ADM SS Urea nitrogen [Mass/Vol] 12 mg/dL Normal 7 - 18 mg/dL AO ADM SS Urea nitrogen/Creatinine [Mass ratio] 16 ratio Normal 7 - 27 ratio AO ADM SS LABORATORYOrdered By: Senia Devries on 02-29-2024 Cholesterol [Mass/Vol] 121 mg/dL Normal 0 - 2 00 mg/dL AO ADM SS Comment on above: Interpretive Data: C holesterol Reference Interval: Less than 200 Desirable 200-239 Borderline high risk 240 and above High risk Cholesterol in HDL [Mass/Vol] 52 mg/dL Normal 40 - 60 mg/dL AO ADM SS Cholesterol in LDL [Mass/Vol] 50 mg/dL Normal 0 - 130 mg/dL AO ADM SS Triglyceride [Mass/Vol] 96 mg/dL Normal 0 - 150 mg/dL AO ADM SS Comment on above: Interpretive Data: T riglyceride Reference Interval: Less than 150 Normal 150-199 Borderline high risk 200-499 High risk 500 or higher Very high risk LIPIDon 02-29-2024 Cholesterol [Mass/Vol] 121 mg/dL Normal 0-200 [facility] ([place]) Comment on above: Result Comment: Chol esterol Reference Interval: Less than 200 Desirable 200-239 Borderline high risk 240 and above High risk Performed By: #### C MP, LIPID, VIDH, FT4, A1C, GFR, TSH #### [address] [address] Cholesterol in HDL [Mass/Vol] 52 mg/dL Normal 40-60 [facility] ([place]) Comment on above: Performed By: #### C MP, LIPID, VIDH, FT4, A1C, GFR, TSH #### [address] [place], [place] [address] Cholesterol in LDL [Mass/Vol] 50 mg/dL Normal 0-130 [facility] ([place]) Comment on above: Performed By: #### C MP, LIPID, VIDH, FT4, A1C, GFR, TSH #### [address] [address] Triglyceride [Mass/Vol] 96 mg/dL Normal 0-150 [facility] ([place]) Comment on above: Result Comment: Trig lyceride Reference Interval: Less than 150 Normal 150-199 Borderline high risk 200-499 High risk 500 or higher Very high risk Performed By: #### C MP, LIPID, VIDH, FT4, A1C, GFR, TSH #### [address] [place], [place] [address] TSHon 02-29-2024 TSH Qn 1.68 m[IU]/L Normal 0.36-3.74 [facility] ([place]) Comment on above: Performed By: #### C MP, LIPID, VIDH, FT4, A1C, GFR, TSH #### [address] [address] US THYROIDon 02-29-2024 US THYROID ORIGINAL EXAMINATION: ULTRASOUND OF THE THYROID WITH COLOR DOPPLER FLOW EVALUATION02/29/2024 12:51 pm Ultrasound Thyroid COMPARISON: None HISTORY: ORDERING SYSTEM PROVIDED HISTORY: Reason for Exam: thyroid feels larger / small nodules in past, FINDINGS: Size right thyroid lobe: 4.5 x 1.5 x 1.3 cm Size left thyroid lobe: 4.4 x 1.5 x 1.5 cm Size isthmus: 0.3 cm Texture: Heterogeneous Estimated total number of nodules greater than or equal to 1 cm: 3 Nodule#: # 1: Maximum size: 1.3 cm . All dimensions: 1.3 x 1.0 x 0.2 cm Location: Left Lower Composition: mixed cystic and solid: 1 point Echogenicity: isoechoic: 1 point Shape: wider than tall: 0 points Margins: ill-defined: 0 points Echogenic foci: punctate echogenic foci: 3 points ACR Total Points: 5; ACR TI-RADS risk category: TR4 - moderately suspicious nodule. Nodule #: # 2: Maximum size: 1.4 cm . Size: 0.4 x 0.6 cm Location: Left Lower Composition: mixed cystic and solid: 1 point Echogenicity: hypoechoic: 2 points Shape: wider than tall: 0 points Margins: smooth: 0 points Echogenic foci: none: 0 points ACR Total Points: 3; ACR TI-RADS risk category: TR3 - mildly suspicious nodule. There is a spongiform TR 1 lesion in the midpole right thyroid lobe measuring 1.1 x 0.9 x 0.8 cm. IMPRESSION: 1. Nodule 1: ACR TI-RADS date CATEGORY 4. Follow-up in 1 year. 2. Nodule 2: ACR TI-RADS date CATEGORY 3. Follow-up in 1 year. . Recommend: 2. Nodule 2: ACR TI-RADS 2017 Category . Recommend: ACR TI-RADS 2017 Recommendations: TR1(0 points) : No FNA or follow up TR2 (2 points) : No FNA or follow up TR3 (3 points) : FNA if >/= 2.5 cm, follow up if 1.5 - 2.4 cm in 1, 3, and 5 years TR4 (4-6 points) : FNA if >/= 1.5 cm, follow up if 1.0 - 1.4 cm in 1, 2, 3, and 5 years TR5 (>/= 7 points) : FNA if >/= 1.0 cm, follow up if 0.5 - 0.9 cm every year for 5 years *ACR TI-RADS recommends that no more than two nodules with the highest ACR TI-RADS total point should be biopsied and no more than four nodules should be followed. Interpreted by: Luiz Cabrera DO Preliminary Report By: Luiz Cabrera DO Electronically signed By Luiz Cabrera DO Dictated Date: 02/29/2024 1:56:44 PM Prelim Date: 02/29/2024 2:06:10 PM Sign Date: 02/29/2024 2:06:10 PM Ordering Provider: MARQUISE Lacy [facility] ([place]) Cele 02-29-2024 Vit. D 25-Hydroxy 37.0 ng/mL Normal [facility] ([place]) Comment on above: Result Comment: Inte rpretive Values Based on Total 25(OH) Vitamin D: Deficient <20 ng/mL Insufficient 20 - <30 ng/mL Sufficient 30-100 ng/mL Performed By: #### C MP, LIPID, VIDH, FT4, A1C, GFR, TSH #### [address] [address] .GFRon 10-20-2023 GFR Non- 48 ml/min/1.73sqm Normal [facility] ([place]) Comment on above: Result Comment: GFR Population mean for , Non- Americans Ages 20-29 = 116 mL/min/1.73 sq.m. Ages 30-39 = 107 mL/min/1.73 sq.m. Ages 40-49 = 99 mL/min/1.73 sq.m. Ages 50-59 = 93 mL/min/1.73 sq.m. Ages 60-69 = 85 mL/min/1.73 sq.m. Ages 70+ = 75 mL/min/1.73 sq.m. Chronic Kidney Disease: Less than 60 mL/min/1.73 square meters End Stage Renal Disease: Less than 15 mL/min/1.73 square meters Performed By: #### C MP, LIPID, VIDH, FT4, A1C, GFR, TSH #### [address] [address] GFR 58 ml/min/1.73sqm Normal [facility] ([place]) Comment on above: Result Comment: GFR Population mean for , Non- Americans Ages 20-29 = 116 mL/min/1.73 sq.m. Ages 30-39 = 107 mL/min/1.73 sq.m. Ages 40-49 = 99 mL/min/1.73 sq.m. Ages 50-59 = 93 mL/min/1.73 sq.m. Ages 60-69 = 85 mL/min/1.73 sq.m. Ages 70+ = 75 mL/min/1.73 sq.m. Chronic Kidney Disease: Less than 60 mL/min/1.73 square meters End Stage Renal Disease: Less than 15 mL/min/1.73 square meters Performed By: #### C MP, LIPID, VIDH, FT4, A1C, GFR, TSH #### [address] [address] A1Con 10-20-2023 HbA1c (Bld) [Mass fraction] 6.9 % High 4.3-6.4 [facility] ([place]) Comment on above: Performed By: #### C MP, LIPID, VIDH, FT4, A1C, GFR, TSH #### [address] [address] CMPon 10-20-2023 Albumin Level 3.7 G/dL Normal 3.4-4.8 [facility] ([place]) Comment on above: Performed By: #### C MP, LIPID, VIDH, FT4, A1C, GFR, TSH #### [address] [address] Albumin/Globulin [Mass ratio] 1.2 {ratio} Normal 1.1-2.5 [facility] ([place]) Comment on above: Performed By: #### C MP, LIPID, VIDH, FT4, A1C, GFR, TSH #### [address] [address] ALP [Catalytic activity/Vol] 68 U/L Normal 40-135 [facility] ([place]) Comment on above: Performed By: #### C MP, LIPID, VIDH, FT4, A1C, GFR, TSH #### [address] [address] ALT [Catalytic activity/Vol] 14 U/L Normal 14-59 [facility] ([place]) Comment on above: Performed By: #### C MP, LIPID, VIDH, FT4, A1C, GFR, TSH #### [address] [address] AST [Catalytic activity/Vol] 11 U/L Normal 10-40 [facility] ([place]) Comment on above: Performed By: #### C MP, LIPID, VIDH, FT4, A1C, GFR, TSH #### [address] [address] Bili Total 0.5 mg/dL Normal 0.2-1.0 [facility] ([place]) Comment on above: Result Comment: Use of this assay is not recommended for patients undergoing treatment with eltrombopag due to the potential for falsely elevated results. Performed By: #### C MP, LIPID, VIDH, FT4, A1C, GFR, TSH #### [address] [address] BUN/Creatinine Ratio 15 ratio Normal 7-27 [facility] ([place]) Comment on above: Performed By: #### C MP, LIPID, VIDH, FT4, A1C, GFR, TSH #### [address] [address] Calcium [Mass/Vol] 9.5 mg/dL Normal 8.4-10.2 [facility] ([place]) Comment on above: Performed By: #### C MP, LIPID, VIDH, FT4, A1C, GFR, TSH #### [address] [address] Chloride [Moles/Vol] 97 mmol/L Low 98-107 [facility] ([place]) Comment on above: Performed By: #### C MP, LIPID, VIDH, FT4, A1C, GFR, TSH #### [address] [address] CO2 [Moles/Vol] 33 mmol/L High 23-31 [facility] ([place]) Comment on above: Performed By: #### C MP, LIPID, VIDH, FT4, A1C, GFR, TSH #### [address] [address] Creatinine [Mass/Vol] 1.11 mg/dL High 0.55-1.02 [facility] ([place]) Comment on above: Performed By: #### C MP, LIPID, VIDH, FT4, A1C, GFR, TSH #### [address] [address] Electrolyte Balance 8.0 mEq/L Normal 4.0-15.0 [facility] ([place]) Comment on above: Performed By: #### C MP, LIPID, VIDH, FT4, A1C, GFR, TSH #### [address] [address] Globulin 3.2 G/dL Normal [facility] ([place]) Comment on above: Performed By: #### C MP, LIPID, VIDH, FT4, A1C, GFR, TSH #### [address] [address] Glucose [Mass/Vol] 178 mg/dL High 83-110 [facility] ([place]) Comment on above: Performed By: #### C MP, LIPID, VIDH, FT4, A1C, GFR, TSH #### [address] [address] Potassium [Moles/Vol] 3.5 mmol/L Normal 3.5-5.1 [facility] ([place]) Comment on above: Performed By: #### C MP, LIPID, VIDH, FT4, A1C, GFR, TSH #### [address] [address] Sodium [Moles/Vol] 138 mmol/L Normal 136-145 [facility] ([place]) Comment on above: Performed By: #### C MP, LIPID, VIDH, FT4, A1C, GFR, TSH #### [address] [address] Total Protein 6.9 G/dL Normal 6.4-8.2 [facility] ([place]) Comment on above: Performed By: #### C MP, LIPID, VIDH, FT4, A1C, GFR, TSH #### [address] [address] Urea nitrogen [Mass/Vol] 17 mg/dL Normal 7-18 [facility] ([place]) Comment on above: Performed By: #### C MP, LIPID, VIDH, FT4, A1C, GFR, TSH #### [address] [address] FT4on 10-20-2023 Free T4 [Mass/Vol] 1.28 ng/dL Normal 0.76-1.46 [facility] ([place]) Comment on above: Performed By: #### C MP, LIPID, VIDH, FT4, A1C, GFR, TSH #### [address] [address] LABORATORYOrdered By: Latonya Pendleton on 10-20-2023 Albumin DL <= 20 mg/L (U) [Mass/Vol] 820 mcg/dL Invalid Interpretation Code AO ADM SS Albumin/Creatinine DL <= 20 mg/L (U) [Mass ratio] 7 mcg/mg Normal 0 - 30 mcg/mg AO ADM SS Creatinine (U) [Mass/Vol] 117.6 mg/dL High 28.0 - 117.0 mg/dL AO ADM SS Cholesterol [Mass/Vol] 205 mg/dL High 0 - 2 00 mg/dL AO ADM SS Comment on above: Interpretive Data: C holesterol Reference Interval: Less than 200 Desirable 200-239 Borderline high risk 240 and above High risk Cholesterol in HDL [Mass/Vol] 46 mg/dL Normal 40 - 60 mg/dL AO ADM SS Cholesterol in LDL [Mass/Vol] 128 mg/dL Normal 0 - 130 mg/dL AO ADM SS Triglyceride [Mass/Vol] 156 mg/dL High 0 - 150 mg/dL AO ADM SS Comment on above: Interpretive Data: T riglyceride Reference Interval: Less than 150 Normal 150-199 Borderline high risk 200-499 High risk 500 or higher Very high risk LABORATORYOrdered By: SYSTEM SYSTEM on 10-20-2023 25-hydroxyvitamin D3 [Mass/Vol] 43.8 ng/mL Invalid Interpretation Code AO ADM SS Comment on above: Interpretive Data: I nterpretive Values Based on Total 25(OH) Vitamin D: Deficient <20 ng/mL Insufficient 20 - <30 ng/mL Sufficient 30-100 ng/mL Albumin BCP dye [Mass/Vol] 3.7 G/dL Normal 3.4 - 4.8 G/dL AO ADM SS Albumin/Globulin [Mass ratio] 1.2 {ratio} Normal 1.1 - 2.5 ratio AO ADM SS ALP [Catalytic activity/Vol] 68 U/L Normal 40 - 135 U/L AO ADM SS ALT With P-5'-P [Catalytic activity/Vol] 14 U/L Normal 14 - 59 U/L AO ADM SS AST With P-5'-P [Catalytic activity/Vol] 11 U/L Normal 10 - 40 U/L AO ADM SS Bilirubin [Mass/Vol] 0.5 mg/dL Normal 0.2 - 1 .0 mg/dL AO ADM SS Comment on above: Interpretive Data: U se of this assay is not recommended for patients undergoing treatment with eltrombopag due to the potential for falsely elevated results. Calcium [Mass/Vol] 9.5 mg/dL Normal 8.4 - 10. 2 mg/dL AO ADM SS Chloride [Moles/Vol] 97 mmol/L Low 98 - 10 7 mmol/L AO ADM SS CO2 [Moles/Vol] 33 mmol/L High 23 - 31 mmol/L AO ADM SS Creatinine [Mass/Vol] 1.11 mg/dL High 0.55 - 1.02 mg/dL AO ADM SS Electrolyte Balance 8.0 mEq/L Normal 4.0 - 15 .0 mEq/L AO ADM SS Free T4 [Mass/Vol] 1.28 ng/dL Normal 0.76 - 1. 46 ng/dL AO ADM SS GFR/1.73 sq M.predicted among blacks MDRD (S/P/Bld) [Vol rate/Area] 58 ml/min/1.73sqm Invalid Interpretation Code AO Chemistry S Comment on above: Interpretive Data: GFR Population mean for , Non- Americans Ages 20-29 = 116 mL/min/1.73 sq.m. Ages 30-39 = 107 mL/min/1.73 sq.m. Ages 40-49 = 99 mL/min/1.73 sq.m. Ages 50-59 = 93 mL/min/1.73 sq.m. Ages 60-69 = 85 mL/min/1.73 sq.m. Ages 70+ = 75 mL/min/1.73 sq.m. Chronic Kidney Disease: Less than 60 mL/min/1.73 square meters End Stage Renal Disease: Less than 15 mL/min/1.73 square meters GFR/1.73 sq M.predicted among non-blacks MDRD (S/P/Bld) [Vol rate/Area] 48 ml/min/1.73sqm Invalid Interpretation Code AO Chemistry S Comment on above: Interpretive Data: GFR Population mean for , Non- Americans Ages 20-29 = 116 mL/min/1.73 sq.m. Ages 30-39 = 107 mL/min/1.73 sq.m. Ages 40-49 = 99 mL/min/1.73 sq.m. Ages 50-59 = 93 mL/min/1.73 sq.m. Ages 60-69 = 85 mL/min/1.73 sq.m. Ages 70+ = 75 mL/min/1.73 sq.m. Chronic Kidney Disease: Less than 60 mL/min/1.73 square meters End Stage Renal Disease: Less than 15 mL/min/1.73 square meters Globulin 3.2 G/dL Invalid Interpretation Code AO ADM SS Glucose [Mass/Vol] 178 mg/dL High 83 - 110 mg/dL AO ADM SS HbA1c (Bld) [Mass fraction] 6.9 % High 4.3 - 6.4 % AO ADM SS Potassium [Moles/Vol] 3.5 mmol/L Normal 3.5 - 5.1 mmol/L AO ADM SS Protein [Mass/Vol] 6.9 G/dL Normal 6.4 - 8.2 G/dL AO ADM SS Sodium [Moles/Vol] 138 mmol/L Normal 136 - 145 mmol/L AO ADM SS TSH Qn 2.90 m[IU]/L Normal 0.36 - 3.74 mcIU/mL AO ADM SS Urea nitrogen [Mass/Vol] 17 mg/dL Normal 7 - 18 mg/dL AO ADM SS Urea nitrogen/Creatinine [Mass ratio] 15 ratio Normal 7 - 27 ratio AO ADM SS LIPIDon 10-20-2023 Cholesterol [Mass/Vol] 205 mg/dL High 0-200 [facility] ([place]) Comment on above: Result Comment: Chol esterol Reference Interval: Less than 200 Desirable 200-239 Borderline high risk 240 and above High risk Performed By: #### C MP, LIPID, VIDH, FT4, A1C, GFR, TSH #### [address] [address] Cholesterol in HDL [Mass/Vol] 46 mg/dL Normal 40-60 [facility] ([place]) Comment on above: Performed By: #### C MP, LIPID, VIDH, FT4, A1C, GFR, TSH #### [address] [place], [place] [address] Cholesterol in LDL [Mass/Vol] 128 mg/dL Normal 0-130 [facility] ([place]) Comment on above: Performed By: #### C MP, LIPID, VIDH, FT4, A1C, GFR, TSH #### [address] [address] Triglyceride [Mass/Vol] 156 mg/dL High 0-150 A [facility] ([place]) Comment on above: Result Comment: Trig lyceride Reference Interval: Less than 150 Normal 150-199 Borderline high risk 200-499 High risk 500 or higher Very high risk Performed By: #### C MP, LIPID, VIDH, FT4, A1C, GFR, TSH #### [address] [address] MALBRon 10-20-2023 U Creatinine 117.6 mg/dL High 28.0-117.0 [facility] ([place]) Comment on above: Performed By: #### C MP, LIPID, VIDH, FT4, A1C, GFR, TSH #### [address] [address] U Microalb 820 mcg/dL Normal [facility] ([place]) Comment on above: Performed By: #### C MP, LIPID, VIDH, FT4, A1C, GFR, TSH #### [address] [address] U Ratio Alb/Cre 7 mcg/mg Normal 0-30 [facility] ([place]) Comment on above: Performed By: #### C MP, LIPID, VIDH, FT4, A1C, GFR, TSH #### [address] [address] TSHon 10-20-2023 TSH Qn 2.90 m[IU]/L Normal 0.36-3.74 [facility] ([place]) Comment on above: Performed By: #### C MP, LIPID, VIDH, FT4, A1C, GFR, TSH #### [address] [address] VIDHon 10-20-2023 Vit. D 25-Hydroxy 43.8 ng/mL Normal [facility] ([place]) Comment on above: Result Comment: Inte rpretive Values Based on Total 25(OH) Vitamin D: Deficient <20 ng/mL Insufficient 20 - <30 ng/mL Sufficient 30-100 ng/mL Performed By: #### C MP, LIPID, VIDH, FT4, A1C, GFR, TSH #### [address] [place], [place] [address] Emergency Department Summary on 08-22-2023 Emergency Department Summary [facility] Medical Records Department [address] [place] [address] Emergency Department Summary 08/22/23 MR#: [id number] Acct: [id number] Name: RAGHAV GREGORY Rep #: [id number] : 1950 73 From: Jean-Paul Suarez DO PCP: Dr. Mathieu Roland DO Status:PRE ER Location: ED HPI History of Present Illness Chief Complaint: Hypertension Narrative Narrative: 73-year-old female presenting with hypertension. She states it started this morning. She states her blood pressure was 210/110 this morning. She took her morning medication which includes ramipril 10 mg and hydrochlorothiazide 25 mg. She has been on these for years. She states that her blood pressures have been up today. She denies headache, blurred vision, slurred speech, nausea, vomiting, dizziness. She denies chest pain, palpitations, shortness of breath. She states she feels otherwise well. She states she did not want come to the ER but her children Urging her to come. 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 Diabetes Diabetic foot ulcer associated with type 2 diabetes mellitus Hypothyroidism Neuropathy Osteomyelitis Type 2 diabetes mellitus Type 2 diabetes mellitus with diabetic polyneuropathy Home Medications alprazolam 0.5 mg tablet 0.5 mg PO TID PRN PRN Anxiety 07/16/20 [History Last Taken Unknown] clopidogrel 75 mg tablet 75 mg PO DAILY 07/16/20 [History Last Taken Unknown] ergocalciferol (vitamin D2) 1,250 mcg (50,000 unit) capsule 1.25 unit PO QWEEK supplement 07/16/20 [History Last Taken Unknown] furosemide 40 mg tablet 40 mg PO DAILY fluid 07/16/20 [History Last Taken Unknown] gabapentin 600 mg tablet 600 mg PO BIDCM 07/16/20 [History Last Taken Unknown] glimepiride 4 mg tablet 4 mg PO DAILY dm 07/16/20 [History Last Taken Unknown] hydrocodone-acetamino phen 5-325mg 5mg-325mg 1 ea PO BID PRN PRN Not Specified 07/16/20 [History Last Taken Unknown] insulin detemir U-100 100 unit/mL subcutaneous solution 28 unit SQ DAILY dm 07/16/20 [History Last Taken Unknown] levothyroxine 50 mcg tablet 50 mcg PO DAILY thyroid 07/16/20 [History Last Taken Unknown] potassium chloride 20 mEq tablet,extended release(part/cryst) 20 meq PO DAILYCM #30 tabs 07/19/20 [Rx Last Taken Unknown] hydrochlorothiazide 25 mg tablet 25 mg PO DAILY 10/31/21 [History Last Taken Unknown] ramipril 10 mg tablet 10 mg PO DAILY 10/31/21 [History Last Taken Unknown] semaglutide 0.25 mg or 0.5 mg (2 mg/1.5 mL) subcutaneous pen injector (Ozempic) 0.25 mg subcut QWEEK diabetes 10/31/21 [History Last Taken Unknown] amoxicillin 875 mg-potassium clavulanate 125 mg tablet 1 tab PO Q12H #80 tabs 01/17/22 [Rx Last Taken Unknown] doxycycline hyclate 100 mg capsule 100 mg PO BID #80 caps 01/17/22 [Rx Last Taken Unknown] metoclopramide HCl 10 mg tablet (Reglan) 10 mg PO Q6H PRN nausea and vomiting #14 tabs 09/16/22 [Rx Last Taken Unknown] amlodipine 5 mg tablet 5 mg PO DAILY #30 tabs 08/22/23 [Rx Last Taken Unknown] Allergy/AdvReac Type Severity Reaction Status Date / Time No Known Allergies Allergy Verified 08/22/23 16:45 Surgical History History of appendectomy History of cholecystectomy Social History Smoking Status: Never smoker ROS ROS ED Constitutional Constitutional ED: Denies chills, fever(s) or sweats Eyes Eyes: Denies blurry vision or change in vision ENT ENT ED: Denies ear pain or sore throat Cardiovascular Cardiovascular: Denies chest pain, palpitations or racing heartbeat Respiratory/Chest Respiratory/Chest: Denies cough, dyspnea or sputum Gastrointestinal Gastrointestinal: Denies abdominal pain, constipation, diarrhea, nausea or vomiting Genitourinary Genitourinary ED: Denies dysuria, hematuria or urinary frequency Musculoskeletal Musculoskeletal: Denies arthralgias, myalgias or neck pain Integumentary Denies abscess, Abrasions or rash Neurologic Neurologic: Denies headache(s), paresthesias or weakness Psychiatric Psychiatric: Denies anxiety, depression, suicidal ideation or suicidal thoughts Endocrine Endocrinology: Denies polydipsia or polyuria EXAM Physical Exam Const Vital Signs: 08/22/23 16:43 08/22/23 16:43 08/22/23 16:43 Temperature 97.8 F Temperature Source Temporal Pulse Rate 90 Respiratory Rate 16 Respiratory Effort Normal Respiratory Pattern Normal Blood Pressure 184/94 H 175/86 H Blood Pressure Mean 124 115 Pulse Ox 98 Oxygen Delivery Method Room Air Positive well nourished General Appearance ED: NAD; Negative for pallor HEENT Reports moist mucous membranes Eyes PERRL and EOMs intact bilaterally General Eye ED: Negative for pale (more content not included)... Normal [facility] MAMMOGRAM SCREENING BILAT ERAL W/TOMOon 08-21-2023 MA MAMMOGRAM SCREENING BILATERAL W/NATO ORIGINAL FROM: [address] [id number] PROCEDURE FOR: RAGHAV GandaraJevon BRI [address] [place] [id number] Home: PID#: [id number] Exam#: [id number] : 1950 Age: 73 TO: MATHIEU ROLAND DO [address] [place] [address] Fax: NO FAX EXAMINATION: SCREENING DIGITAL BILATERAL MAMMOGRAM WITH TOMOSYNTHESIS, 08/20/2023 1:22 pm TECHNIQUE: Screening mammography of the bilateral breasts was performed with tomosynthesis. 2D standard and 3D tomosynthesis combination imaging performed through both breasts in the MLO and CC projection. Computer aided detection was utilized in the interpretation of this exam. COMPARISON: 06/02/22, 07/15/18 HISTORY: Breast cancer screening. FINDINGS: BREAST DENSITY: Scattered fibroglandular tissue There are benign calcifications in both breasts. There are no significant masses or calcifications. IMPRESSION: No mammographic evidence of malignancy. Continued screening with annual mammograms is recommended. Yvon Wolf risk calculations, generated with the history provided, report this patient's 10 year risk and lifetime risk for developing breast cancer at 10.9% and 10.9%, respectively. Based on this assessment tool, if the patient's calculated lifetime risk is below 20%, then the patient is considered at average risk for developing breast cancer. If the patient's calculated lifetime risk is at or above 20%, then the patient is considered high risk for developing breast cancer and may be a candidate for supplemental breast MRI screening in addition to annual mammographic screening per the [employer]. BIRADS: MAMMOGRAM BI-RADS: 2: Benign finding RECALL: 1 year screening RECALL TYPE: mammo LETTER SENT: Normal BI-RADS 1 and 2 Interpreted by: Ann Barros Preliminary Report By: Ann Barros Electronically signed By Ann Barros Dictated Date: 08/21/2023 11:04:57 PM Prelim Date: 08/21/2023 11:08:16 PM Sign Date: 08/21/2023 11:08:16 PM Ordering Provider: MATHIEU ROLAND Patient Account Liaison: THERESE KLINE RT(R)(M)(CT) [employer] letter sent: Probably Benign BI-RADS 3 Mammogram BI-RADS: 2 Benign Normal [facility] ([place]) .GFRon 06-23-2023 GFR Non- 56 ml/min/1.73sqm Normal [facility] ([place]) Comment on above: Result Comment: GFR Population mean for , Non- Americans Ages 20-29 = 116 mL/min/1.73 sq.m. Ages 30-39 = 107 mL/min/1.73 sq.m. Ages 40-49 = 99 mL/min/1.73 sq.m. Ages 50-59 = 93 mL/min/1.73 sq.m. Ages 60-69 = 85 mL/min/1.73 sq.m. Ages 70+ = 75 mL/min/1.73 sq.m. Chronic Kidney Disease: Less than 60 mL/min/1.73 square meters End Stage Renal Disease: Less than 15 mL/min/1.73 square meters Performed By: #### C MP, LIPID, VIDH, FT4, A1C, GFR, TSH #### [address] [address] GFR 68 ml/min/1.73sqm Normal [facility] ([place]) Comment on above: Result Comment: GFR Population mean for , Non- Americans Ages 20-29 = 116 mL/min/1.73 sq.m. Ages 30-39 = 107 mL/min/1.73 sq.m. Ages 40-49 = 99 mL/min/1.73 sq.m. Ages 50-59 = 93 mL/min/1.73 sq.m. Ages 60-69 = 85 mL/min/1.73 sq.m. Ages 70+ = 75 mL/min/1.73 sq.m. Chronic Kidney Disease: Less than 60 mL/min/1.73 square meters End Stage Renal Disease: Less than 15 mL/min/1.73 square meters Performed By: #### C MP, LIPID, VIDH, FT4, A1C, GFR, TSH #### [address] [address] A1Con 06-23-2023 HbA1c (Bld) [Mass fraction] 6.4 % Normal 4.3-6.4 [facility] ([place]) Comment on above: Performed By: #### C MP, LIPID, VIDH, FT4, A1C, GFR, TSH #### [address] [address] CMPon 06-23-2023 Albumin Level 3.7 G/dL Normal 3.4-4.8 [facility] ([place]) Comment on above: Performed By: #### C MP, LIPID, VIDH, FT4, A1C, GFR, TSH #### [address] [address] Albumin/Globulin [Mass ratio] 1.2 {ratio} Normal 1.1-2.5 [facility] ([place]) Comment on above: Performed By: #### C MP, LIPID, VIDH, FT4, A1C, GFR, TSH #### [address] [address] ALP [Catalytic activity/Vol] 77 U/L Normal 40-135 [facility] ([place]) Comment on above: Performed By: #### C MP, LIPID, VIDH, FT4, A1C, GFR, TSH #### [address] [address] ALT [Catalytic activity/Vol] 15 U/L Normal 14-59 [facility] ([place]) Comment on above: Performed By: #### C MP, LIPID, VIDH, FT4, A1C, GFR, TSH #### [address] [address] AST [Catalytic activity/Vol] 16 U/L Normal 10-40 [facility] ([place]) Comment on above: Performed By: #### C MP, LIPID, VIDH, FT4, A1C, GFR, TSH #### [address] [address] Bili Total 0.4 mg/dL Normal 0.2-1.0 [facility] ([place]) Comment on above: Result Comment: Use of this assay is not recommended for patients undergoing treatment with eltrombopag due to the potential for falsely elevated results. Performed By: #### C MP, LIPID, VIDH, FT4, A1C, GFR, TSH #### [address] [address] BUN/Creatinine Ratio 11 ratio Normal 7-27 [facility] ([place]) Comment on above: Performed By: #### C MP, LIPID, VIDH, FT4, A1C, GFR, TSH #### [address] [address] Calcium [Mass/Vol] 8.9 mg/dL Normal 8.4-10.2 [facility] ([place]) Comment on above: Performed By: #### C MP, LIPID, VIDH, FT4, A1C, GFR, TSH #### [address] [address] Chloride [Moles/Vol] 106 mmol/L Normal 98-107 [facility] ([place]) Comment on above: Performed By: #### C MP, LIPID, VIDH, FT4, A1C, GFR, TSH #### [address] [address] CO2 [Moles/Vol] 29 mmol/L Normal 23-31 [facility] ([place]) Comment on above: Performed By: #### C MP, LIPID, VIDH, FT4, A1C, GFR, TSH #### [address] [address] Creatinine [Mass/Vol] 0.97 mg/dL Normal 0.55-1.02 [facility] ([place]) Comment on above: Performed By: #### C MP, LIPID, VIDH, FT4, A1C, GFR, TSH #### [address] [address] Electrolyte Balance 6.0 mEq/L Normal 4.0-15.0 [facility] ([place]) Comment on above: Performed By: #### C MP, LIPID, VIDH, FT4, A1C, GFR, TSH #### [address] [address] Globulin 3.1 G/dL Normal [facility] ([place]) Comment on above: Performed By: #### C MP, LIPID, VIDH, FT4, A1C, GFR, TSH #### [address] [address] Glucose [Mass/Vol] 138 mg/dL High 83-110 [facility] ([place]) Comment on above: Performed By: #### C MP, LIPID, VIDH, FT4, A1C, GFR, TSH #### [address] [address] Potassium [Moles/Vol] 5.1 mmol/L Normal 3.5-5.1 [facility] ([place]) Comment on above: Performed By: #### C MP, LIPID, VIDH, FT4, A1C, GFR, TSH #### [address] [address] Sodium [Moles/Vol] 141 mmol/L Normal 136-145 [facility] ([place]) Comment on above: Performed By: #### C MP, LIPID, VIDH, FT4, A1C, GFR, TSH #### [address] [place], [place] [address] Total Protein 6.8 G/dL Normal 6.4-8.2 [facility] ([place]) Comment on above: Performed By: #### C MP, LIPID, VIDH, FT4, A1C, GFR, TSH #### [address] [address] Urea nitrogen [Mass/Vol] 11 mg/dL Normal 7-18 [facility] ([place]) Comment on above: Performed By: #### C MP, LIPID, VIDH, FT4, A1C, GFR, TSH #### [address] [address] FT3on 06-23-2023 Free T3 [Mass/Vol] 2.32 pg/mL Normal 2.30-4.00 [facility] ([place]) Comment on above: Performed By: #### C MP, LIPID, VIDH, FT4, A1C, GFR, TSH #### [address] [address] HCVon 06-23-2023 Hep C Ab Non-Reactive Normal Non-Reactiv e [facility] ([place]) Comment on above: Performed By: #### H CV1 #### [address] [address] Hep C Ab Int Normal [facility] ([place]) Comment on above: Result Comment: Nonr eactive: Samples with a value < 0.80 are considered nonreactive (negative) for antibodies to HCV. A negative test result does not exclude the possibility of exposure to or infection with HCV. HCV antibodies may be undetectable in some stages of the infection and in some clinical conditions. See Interp Performed By: #### H CV1 #### [address] [address] LIPIDon 06-23-2023 Cholesterol [Mass/Vol] 178 mg/dL Normal 0-200 [facility] ([place]) Comment on above: Result Comment: Chol esterol Reference Interval: Less than 200 Desirable 200-239 Borderline high risk 240 and above High risk Performed By: #### C MP, LIPID, VIDH, FT4, A1C, GFR, TSH #### [address] [address] Cholesterol in HDL [Mass/Vol] 43 mg/dL Normal 40-60 [facility] ([place]) Comment on above: Performed By: #### C MP, LIPID, VIDH, FT4, A1C, GFR, TSH #### [address] [address] Cholesterol in LDL [Mass/Vol] 110 mg/dL Normal 0-130 [facility] ([place]) Comment on above: Performed By: #### C MP, LIPID, VIDH, FT4, A1C, GFR, TSH #### [address] [address] Triglyceride [Mass/Vol] 123 mg/dL Normal 0-150 [facility] ([place]) Comment on above: Result Comment: Trig lyceride Reference Interval: Less than 150 Normal 150-199 Borderline high risk 200-499 High risk 500 or higher Very high risk Performed By: #### C MP, LIPID, VIDH, FT4, A1C, GFR, TSH #### [address] [address] TSHon 06-23-2023 TSH Qn 1.77 m[IU]/L Normal 0.36-3.74 [facility] ([place]) Comment on above: Performed By: #### C MP, LIPID, VIDH, FT4, A1C, GFR, TSH #### [address] [address] VIDHon 06-23-2023 Vit. D 25-Hydroxy 29.9 ng/mL Normal [facility] ([place]) Comment on above: Result Comment: Inte rpretive Values Based on Total 25(OH) Vitamin D: Deficient <20 ng/mL Insufficient 20 - <30 ng/mL Sufficient 30-100 ng/mL Performed By: #### C MP, LIPID, VIDH, FT4, A1C, GFR, TSH #### [address] [address] LABORATORYOrdered By: Keri Goldstein on 02-12-2023 Albumin DL <= 20 mg/L (U) [Mass/Vol] 1720 mcg/dL Invalid Interpretation Code AO ADM SS Albumin/Creatinine DL <= 20 mg/L (U) [Mass ratio] 18 mcg/mg Invalid Interpretation Code 0 - 30 mcg/mg AO ADM SS Creatinine (U) [Mass/Vol] 94.0 mg/dL Invalid Interpretation Code 28.0 - 117.0 mg/dL AO ADM SS Cholesterol [Mass/Vol] 186 mg/dL Invalid Interpretation Code 0 - 200 mg/dL AO ADM SS Cholesterol in HDL [Mass/Vol] 43 mg/dL Invalid Interpretation Code 40 - 60 mg/dL AO ADM SS Cholesterol in LDL [Mass/Vol] 122 mg/dL Invalid Interpretation Code 0 - 130 mg/dL AO ADM SS Triglyceride [Mass/Vol] 105 mg/dL Invalid Interpretation Code 0 - 150 mg/dL AO ADM SS LABORATORYOrdered By: SYSTEM SYSTEM on 02-12-2023 Albumin BCP dye [Mass/Vol] 3.6 G/dL Invalid Interpretation Code 3.4 - 4.8 G/dL AO ADM SS Albumin/Globulin [Mass ratio] 1.3 {ratio} Invalid Interpretation Code 1.1 - 2.5 ratio AO ADM SS ALP [Catalytic activity/Vol] 76 U/L Invalid Interpretation Code 40 - 135 U/L AO ADM SS ALT With P-5'-P [Catalytic activity/Vol] 15 U/L Invalid Interpretation Code 14 - 59 U/L AO ADM SS AST With P-5'-P [Catalytic activity/Vol] 19 U/L Invalid Interpretation Code 10 - 40 U/L AO ADM SS Bilirubin [Mass/Vol] 0.4 mg/dL Invalid Interpretation Code 0.2 - 1.0 mg/dL AO ADM SS Calcium [Mass/Vol] 8.7 mg/dL Invalid Interpretation Code 8.4 - 10.2 mg/dL AO ADM SS Chloride [Moles/Vol] 106 mmol/L Invalid Interpretation Code 98 - 107 mmol/L AO ADM SS CO2 [Moles/Vol] 30 mmol/L Invalid Interpretation Code 23 - 31 mmol/L AO ADM SS Creatinine [Mass/Vol] 0.85 mg/dL Invalid Interpretation Code 0.55 - 1.02 mg/dL AO ADM SS Electrolyte Balance 7.0 mEq/L Invalid Interpretation Code 4.0 - 15.0 mEq/L AO ADM SS Free T3 [Mass/Vol] 2.31 pg/mL Invalid Interpretation Code 2.30 - 4.00 pg/mL AO ADM SS GFR/1.73 sq M.predicted among blacks MDRD (S/P/Bld) [Vol rate/Area] 79 ml/min/1.73sqm Invalid Interpretation Code AO Chemistry S GFR/1.73 sq M.predicted among non-blacks MDRD (S/P/Bld) [Vol rate/Area] 65 ml/min/1.73sqm Invalid Interpretation Code AO Chemistry S Globulin 2.7 G/dL Invalid Interpretation Code AO ADM SS Glucose [Mass/Vol] 109 mg/dL Invalid Interpretation Code 83 - 110 mg/dL AO ADM SS HbA1c (Bld) [Mass fraction] 5.9 % Invalid Interpretation Code 4.3 - 6.4 % AO ADM SS Potassium [Moles/Vol] 4.4 mmol/L Invalid Interpretation Code 3.5 - 5.1 mmol/L AO ADM SS Protein [Mass/Vol] 6.3 G/dL Invalid Interpretation Code 6.4 - 8.2 G/dL AO ADM SS Sodium [Moles/Vol] 143 mmol/L Invalid Interpretation Code 136 - 145 mmol/L AO ADM SS TSH Qn 1.61 m[IU]/L Invalid Interpretation Code 0.36 - 3.74 mcIU/mL AO ADM SS Urea nitrogen [Mass/Vol] 10 mg/dL Invalid Interpretation Code 7 - 18 mg/dL AO ADM SS Urea nitrogen/Creatinine [Mass ratio] 12 ratio Invalid Interpretation Code 7 - 27 ratio AO ADM SS Bacteria identified Cx Nom ( Wound)Ordered By: Dr. Schmidt on 10-31-2022 Wound Culture Staphylococcus aureus [facility] Wound Cultureon 10-31-2022 WC Staphylococcus aureu s Amount Growth 2+ Staphylococcus aureus: REACTION cefOXitin Susc Islt NEG Doxycycline Islt JACOB <=0.5 S Clindamycin Islt JACOB 0.25 S Clindamycin.induced Susc Islt NEG Erythromycin Islt JACOB >=8 R Gentamicin Islt JACOB <=0.5 S levoFLOXacin Islt JACOB 0.25 S Linezolid Islt JACOB 2 S Moxifloxacin Islt JACOB <=0.25 S Oxacillin Susc Islt <=0.25 S Tetracycline Islt JACOB <=1 S TMP SMX Islt JACOB <=10 S Vancomycin Islt JACOB <=0.5 S Normal [facility] Comment on above: Performed By: #### M 100.3000, M1.1999 #### [facility] [address] [place], [place], [address] Gram Stainon 10-30-2022 GS Gram Stain Rare Epithelial cells Rare White Blood Cells Rare Gram positive cocci Normal [facility] Comment on above: Performed By: #### M 100.3000, .1999 #### [facility] [address] [place], [place], [address] Gram stain for investigation of transfusion reactionOrdered By: Dr. Schmidt on 10-30-2022 Microscopic observation Gram stain Nom (Unsp spec) [facility] LABORATORYOrdered By: SYSTEM SYSTEM on 09-25-2022 Albumin BCP dye [Mass/Vol] 3.1 G/dL Invalid Interpretation Code 3.4 - 4.8 G/dL AO ADM SS Albumin/Globulin [Mass ratio] 1.0 {ratio} Invalid Interpretation Code 1.1 - 2.5 ratio AO ADM SS ALP [Catalytic activity/Vol] 72 U/L Invalid Interpretation Code 40 - 135 U/L AO ADM SS ALT With P-5'-P [Catalytic activity/Vol] 16 U/L Invalid Interpretation Code 14 - 59 U/L AO ADM SS AST With P-5'-P [Catalytic activity/Vol] 17 U/L Invalid Interpretation Code 10 - 40 U/L AO ADM SS Bilirubin [Mass/Vol] 0.3 mg/dL Invalid Interpretation Code 0.2 - 1.0 mg/dL AO ADM SS Calcium [Mass/Vol] 8.8 mg/dL Invalid Interpretation Code 8.4 - 10.2 mg/dL AO ADM SS Chloride [Moles/Vol] 106 mmol/L Invalid Interpretation Code 98 - 107 mmol/L AO ADM SS CO2 [Moles/Vol] 32 mmol/L Invalid Interpretation Code 23 - 31 mmol/L AO ADM SS Creatinine [Mass/Vol] 0.81 mg/dL Invalid Interpretation Code 0.55 - 1.02 mg/dL AO ADM SS Electrolyte Balance 6.0 mEq/L Invalid Interpretation Code 4.0 - 15.0 mEq/L AO ADM SS GFR 84 ml/min/1.73sqm Invalid Interpretation Code AO Chemistry S GFR Non- 69 ml/min/1.73sqm Inval id Interpretation Code AO Chemistry S Globulin 3.2 G/dL Invalid Interpretation Code AO ADM SS Glucose [Mass/Vol] 99 mg/dL Invalid Interpretation Code 83 - 110 mg/dL AO ADM SS HbA1c (Bld) [Mass fraction] 5.9 % Invalid Interpretation Code 4.3 - 6.4 % AO ADM SS Potassium [Moles/Vol] 4.3 mmol/L Invalid Interpretation Code 3.5 - 5.1 mmol/L AO ADM SS Protein [Mass/Vol] 6.3 G/dL Invalid Interpretation Code 6.4 - 8.2 G/dL AO ADM SS Sodium [Moles/Vol] 144 mmol/L Invalid Interpretation Code 136 - 145 mmol/L AO ADM SS TSH Qn 1.74 m[IU]/L Invalid Interpretation Code 0.36 - 3.74 mcIU/mL AO ADM SS Urea nitrogen [Mass/Vol] 15 mg/dL Invalid Interpretation Code 7 - 18 mg/dL AO ADM SS Urea nitrogen/Creatinine [Mass ratio] 19 ratio Invalid Interpretation Code 7 - 27 ratio AO ADM SS LABORATORYOrdered By: Favian Contreras on 09-25-2022 Cholesterol [Mass/Vol] 156 mg/dL Invalid Interpretation Code 0 - 200 mg/dL AO ADM SS Cholesterol in HDL [Mass/Vol] 32 mg/dL Invalid Interpretation Code 40 - 60 mg/dL AO ADM SS Cholesterol in LDL [Mass/Vol] 97 mg/dL Invalid Interpretation Code 0 - 130 mg/dL AO ADM SS Triglyceride [Mass/Vol] 134 mg/dL Invalid Interpretation Code 0 - 150 mg/dL AO ADM SS CBC W/Diff, Automatedon 08-31 PATH REV Reviewed Normal [facility] Comment on above: Result Comment: Neut rophilic leukocytosis. Polycythemia Clinical correlation necessary. Eliezer Johns M.D. 09/17/22 AMENDED REPORT 09/17/22 0939 PATH REV previously reported as: December magy Performed By: #### L 500.3400, L501.4020, L501.2450, L100.0100, L500.2500 #### [facility] [address] [place], [address] 12 Lead EKGon 09-16-2022 12 Lead EKG [facility] Cardiovascular Services [address] [place] [address] 12 Lead EKG 09/15/22 2350 MR#: [id number] Acct: [id number] Name: RAGHAV GREGORY Rep #: [id number] : 1950 72 From: Jonny Lynch MD Attending Dr: Status: DEP ER Ordering Dr: Whitney Ott MD Date: 09/15/22 Location: ED Sex: F C Admitted: Test Reason : DYSRHYTHMIA Blood Pressure : / mmHG Vent. Rate : 104 BPM Atrial Rate : 104 BPM P-R Int : 190 ms QRS Dur : 068 ms QT Int : 340 ms P-R-T Axes : 088 -04 146 degrees QTc Int : 447 ms Sinus tachycardia Nonspecific ST and T wave abnormality Abnormal ECG Confirmed by MANDY KEY, JONNY ([id number]), brands editor MUSA NICOLE ([id number]) on 09/18/2022 8:31:52 AM Referred By: SHE Confirmed By:JONNY LYNCH MD 09/18/22830 Date Jonny Lynch MD CC: Dr. Whitney Ott MD; Dr. Mathieu Roland DO Signed Normal [facility] Abdomen/Pelvis without Conto n 09-16-2022 Abdomen/Pelvis without Cont [facility] Imaging Services [address] [place] [address] Abdomen/Pelvis without Cont MR#: [id number] Acct: [id number] Name: RAGHAV GREGORY Rep #: [id number] : 1950 F 72 From: Neftali Verde PCP: Dr. Mathieu Roland DO Status: REG ER Study: Abdomen/Pelvis without Cont Date of Exam: 08/31 03/22 Exam# [id number] Ordering Dr: Whitney Ott MD STUDY: CT ABDOMEN AND PELVIS WITHOUT CONTRAST REASON FOR EXAM: Female, 72 years old. abdominal pain RADIATION DOSAGE (If Supplied By Facility): CTDIvol = ( 12.69 ) mGy, DLP = ( 640.18 ) mGycm TECHNIQUE: Transaxial images were obtained from the dome of the diaphragm to the symphysis pubis without oral contrast, and without intravenous contrast. Sagittal and coronal images were reconstructed. Individualized dose optimization techniques were used for this CT. COMPARISON: None. FINDINGS: The visualized lung bases are unremarkable. The visualized portions of the heart are within normal limits. Normal liver. There are surgical clips in the gallbladder fossa consistent with a prior cholecystectomy. Normal spleen. Normal pancreas. Normal bilateral adrenal glands. Normal right kidney. There is a nonobstructive stone in the left kidney measures 4 mm. There is no hydronephrosis. Normal visualized stomach. Normal small intestine. Normal colon. The appendix is visualized and appears normal. Normal abdominal aorta. Normal inferior vena cava. Normal retroperitoneum. Normal urinary bladder. Normal abdominal wall. Normal osseous structures. CT/Abdomen/Pelvis without Cont IMPRESSION: There is a nonobstructive stone in the left kidney measures 4 mm. Electronically Signed: Neftali Barnett MD at 3:01 EST Reading Location ID and State: [address] [place] [address] Tel , Service support , CC: Dr. Whitney Ott MD; Dr. Mathieu Roland DO Book Packer: Signed Normal [facility] Basic Metabolic Profile (BMP )on 09-16-2022 BUN/CRE 9.8 RATIO Low 10-20 [facility] Comment on above: Order Comment: 'TROP ' Serial specimen #1, #2 or #3: 1 Performed By: #### L 500.3400, L501.4020, L501.2450, L100.0100, L500.2500 #### [facility] [address] [place], [place], [id number] CA,Total 9.3 mg/dL Normal 8.5-10.1 [facility] Comment on above: Order Comment: 'TROP ' Serial specimen #1, #2 or #3: 1 Performed By: #### L 500.3400, L501.4020, L501.2450, L100.0100, L500.2500 #### [facility] [address] [place], [address] Chloride [Moles/Vol] 105 mmol/L Normal 98-107 [facility] Comment on above: Order Comment: 'TROP ' Serial specimen #1, #2 or #3: 1 Performed By: #### L 500.3400, L501.4020, L501.2450, L100.0100, L500.2500 #### [facility] [address] [place], [address] CO2 [Moles/Vol] 20.0 mmol/L Low 21.0-32.0 [facility] Comment on above: Order Comment: 'TROP ' Serial specimen #1, #2 or #3: 1 Performed By: #### L 500.3400, L501.4020, L501.2450, L100.0100, L500.2500 #### [facility] [address] [place], [address] Creatinine [Mass/Vol] 1.23 mg/dL High 0.55-1.02 [facility] Comment on above: Order Comment: 'TROP ' Serial specimen #1, #2 or #3: 1 Result Comment: The validity of the calculated GFR GFRAA in patients over 70 years has not been determined. Clinical correlation is essential. Performed By: #### L 500.3400, L501.4020, L501.2450, L100.0100, L500.2500 #### [facility] [address] [place], [address] ECRCL 34.65 ml/min Normal [facility] Comment on above: Order Comment: 'TROP ' Serial specimen #1, #2 or #3: 1 Performed By: #### L 500.3400, L501.4020, L501.2450, L100.0100, L500.2500 #### [facility] [address] [place], [address] EST GFR - AA 55 mL/min Low >60 [facility] Comment on above: Order Comment: 'TROP ' Serial specimen #1, #2 or #3: 1 Result Comment: Afri can [place] GFR Calc Performed By: #### L 500.3400, L501.4020, L501.2450, L100.0100, L500.2500 #### [facility] [address] [place], [address] GAP 13 Normal 5-15 [facility] Comment on above: Order Comment: 'TROP ' Serial specimen #1, #2 or #3: 1 Performed By: #### L 500.3400, L501.4020, L501.2450, L100.0100, L500.2500 #### [facility] [address] [place], [address] GFR/1.73 sq M.predicted among non-blacks MDRD (S/P/Bld) [Vol rate/Area] 45 mL/min/{1.73_m2} Low >60 [facility] Comment on above: Order Comment: 'TROP ' Serial specimen #1, #2 or #3: 1 Result Comment: Non- GFR Calc Performed By: #### L 500.3400, L501.4020, L501.2450, L100.0100, L500.2500 #### [facility] [address] [place], [address] Glucose [Mass/Vol] 249 mg/dL High 74-106 [facility] Comment on above: Order Comment: 'TROP ' Serial specimen #1, #2 or #3: 1 Result Comment: Gluc ose result greater than or equal to 200 mg/dL suggests DIABETES MELLITUS per A.D.A. criteria. Performed By: #### L 500.3400, L501.4020, L501.2450, L100.0100, L500.2500 #### [facility] [address] [place], [address] Potassium [Moles/Vol] 5.1 mmol/L Normal 3.5-5.1 [facility] Comment on above: Order Comment: 'TROP ' Serial specimen #1, #2 or #3: 1 Result Comment: Mode rate Hemolysis, Result may be falsely increased. Performed By: #### L 500.3400, L501.4020, L501.2450, L100.0100, L500.2500 #### [facility] [address] [place], [address] Sodium [Moles/Vol] 138 mmol/L Normal 136-145 [facility] Comment on above: Order Comment: 'TROP ' Serial specimen #1, #2 or #3: 1 Performed By: #### L 500.3400, L501.4020, L501.2450, L100.0100, L500.2500 #### [facility] [address] [place], [address] Urea nitrogen [Mass/Vol] 12 mg/dL Normal 7-18 [facility] Comment on above: Order Comment: 'TROP ' Serial specimen #1, #2 or #3: 1 Performed By: #### L 500.3400, L501.4020, L501.2450, L100.0100, L500.2500 #### [facility] [address] [place], [address] Emergency Department Summary on 09-16-2022 Emergency Department Summary [facility] Medical Records Department [address] [place] [address] Emergency Department Summary 09/15/22 MR#: [id number] Acct: [id number] Name: RAGHAV GREGOYR Rep #: [id number] : 1950 72 From: Whitney Ott MD PCP: Dr. Mathieu Roland, DO Status:DEP ER Location: ED HPI History of Present Illness Chief Complaint: Nausea/Vomiting Informant: patient Onset/Context/Timing Onset: Today Narrative Narrative: Patient presents secondary to nausea and vomiting for the last 6 hours. She states she felt nauseated all day but started vomiting around dinnertime this evening. She is also had diarrhea. She does not believe she had a fever. She does report pain between her breasts and in the right side of her abdomen. 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 Diabetes Diabetic foot ulcer associated with type 2 diabetes mellitus Hypothyroidism Neuropathy Osteomyelitis Type 2 diabetes mellitus Type 2 diabetes mellitus with diabetic polyneuropathy Home Medications alprazolam 0.5 mg tablet 0.5 mg PO TID PRN PRN Anxiety 07/16/20 [History Last Taken Unknown] clopidogrel 75 mg tablet 75 mg PO DAILY 07/16/20 [History Last Taken Unknown] ergocalciferol (vitamin D2) 1,250 mcg (50,000 unit) capsule 1.25 unit PO QWEEK supplement 07/16/20 [History Last Taken Unknown] furosemide 40 mg tablet 40 mg PO DAILY fluid 07/16/20 [History Last Taken Unknown] gabapentin 600 mg tablet 600 mg PO BIDCM 07/16/20 [History Last Taken Unknown] glimepiride 4 mg tablet 4 mg PO DAILY dm 07/16/20 [History Last Taken Unknown] hydrocodone-acetamino phen 5-325mg 5mg-325mg 1 ea PO BID PRN PRN Not Specified 07/16/20 [History Last Taken Unknown] insulin detemir U-100 100 unit/mL subcutaneous solution 28 unit SQ DAILY dm 07/16/20 [History Last Taken Unknown] levothyroxine 50 mcg tablet 50 mcg PO DAILY thyroid 07/16/20 [History Last Taken Unknown] potassium chloride 20 mEq tablet,extended release(part/cryst) 20 meq PO DAILYCM #30 tabs 07/19/20 [Rx Last Taken Unknown] hydrochlorothiazide 25 mg tablet 25 mg PO DAILY 10/31/21 [History Last Taken Unknown] ramipril 10 mg tablet 10 mg PO DAILY 10/31/21 [History Last Taken Unknown] semaglutide 0.25 mg or 0.5 mg (2 mg/1.5 mL) subcutaneous pen injector (Ozempic) 0.25 mg subcut QWEEK diabetes 10/31/21 [History Last Taken Unknown] amoxicillin 875 mg-potassium clavulanate 125 mg tablet 1 tab PO Q12H #80 tabs 01/17/22 [Rx Last Taken Unknown] doxycycline hyclate 100 mg capsule 100 mg PO BID #80 caps 01/17/22 [Rx Last Taken Unknown] metoclopramide HCl 10 mg tablet (Reglan) 10 mg PO Q6H PRN nausea and vomiting #14 tabs 09/16/22 [Rx Last Taken Unknown] Allergy/AdvReac Type Severity Reaction Status Date / Time No Known Allergies Allergy Verified 01/14/22 17:42 Surgical History History of appendectomy History of cholecystectomy Social History Smoking Status: Never smoker ROS ROS ED Constitutional Constitutional ED: Denies chills or fever(s) Eyes Eyes: Denies change in vision or discharge from eye(s) ENT ENT ED: Denies discharge from eye(s), rhinorrhea or sore throat Cardiovascular Cardiovascular: Reports chest pain; Denies palpitations Respiratory/Chest Respiratory/Chest: Denies cough or dyspnea Gastrointestinal Gastrointestinal: Reports abdominal pain, diarrhea, nausea and vomiting Genitourinary Genitourinary ED: Denies difficulty urinating or dysuria Musculoskeletal Musculoskeletal: Denies back pain or extremity pain Integumentary Denies Abrasions or rash Neurologic Neurologic: Reports weakness; Denies headache(s) Psychiatric Psychiatric: Denies anxiety or depression Allergic/Immunologic Allergic/Immunologic ED: Denies lip swelling or urticaria EXAM Physical Exam Const Vital Signs: 09/15/22 23:18 Temperature 97.0 F L Temperature Source Temporal Pulse Rate 108 H Respiratory Rate 16 Blood Pressure 194/106 H Blood Pressure Mean 135 Pulse Ox 100 Oxygen Delivery Method Room Air Positive well nourished and well developed General Appearance ED: well developed HEENT Reports normocephalic and head/scalp atraumatic Eyes PERRL and EOMs intact bilaterally Neck supple Chest Wall inspection of chest normal and palpation of chest normal Resp normal respiratory effort and clear to auscultation bilaterally Cardio regular rate and regular rhythm GI non-tender Auscultation: hypoactive bowel sounds Palpation: soft Extremity normal to inspection Neuro oriented x3 and no sensory deficits noted Sensorium / Orientation: alert Motor Exam: strength 5/5 throughout Psych mental status erica (more content not included)... Normal [facility] L501.4020on 09-16-2022 TROPONIN-I HS 10 pg/mL Normal 3.0-54.0 [facility] Comment on above: Order Comment: 'TROP ' Serial specimen #1, #2 or #3: 1 Result Comment: Suleiman sinha Note: New Test Units and Gender Specific Reference Ranges. For more information see Policy Stat Procedure [place] High Sensitivity Troponin (TNIH) and attachments. Performed By: #### L 500.3400, L501.4020, L501.2450, L100.0100, L500.2500 ####[facility] [address] [place], [address] Lipaseon 09-16-2022 Lipase [Catalytic activity/Vol] 42 U/L Low 73-393 [facility] Comment on above: Order Comment: 'TROP ' Serial specimen #1, #2 or #3: 1 Performed By: #### L 500.3400, L501.4020, L501.2450, L100.0100, L500.2500 #### [facility] [address] [place], [address] Liver Profileon 09-16-2022 Albumin [Mass/Vol] 3.7 g/dL Normal 3.2-5.0 [facility] Comment on above: Order Comment: 'TROP ' Serial specimen #1, #2 or #3: 1 Performed By: #### L 500.3400, L501.4020, L501.2450, L100.0100, L500.2500 #### [facility] [address] [place], [address] ALK P 100 U/L Normal 45-117 [facility] Comment on above: Order Comment: 'TROP ' Serial specimen #1, #2 or #3: 1 Performed By: #### L 500.3400, L501.4020, L501.2450, L100.0100, L500.2500 #### [facility] [address] [place], [address] ALT [Catalytic activity/Vol] 17 U/L Normal 13-56 [facility] Comment on above: Order Comment: 'TROP ' Serial specimen #1, #2 or #3: 1 Performed By: #### L 500.3400, L501.4020, L501.2450, L100.0100, L500.2500 #### [facility] [address] [place], [address] AST [Catalytic activity/Vol] 21 U/L Normal 15-37 [facility] Comment on above: Order Comment: 'TROP ' Serial specimen #1, #2 or #3: 1 Result Comment: Mode rate Hemolysis, Result may be falsely increased. Performed By: #### L 500.3400, L501.4020, L501.2450, L100.0100, L500.2500 #### [facility] [address] [place], [address] Bilirubin [Mass/Vol] 0.60 mg/dL Normal 0.20-1.00 [facility] Comment on above: Order Comment: 'TROP ' Serial specimen #1, #2 or #3: 1 Result Comment: For patients on eltrombopag therapy, use of Dimension [place] TBIL is not recommended. Performed By: #### L 500.3400, L501.4020, L501.2450, L100.0100, L500.2500 #### [facility] [address] [place], [address] Bilirubin.direct [Mass/Vol] 0.07 mg/dL Normal 0.00-0.30 [facility] Comment on above: Order Comment: 'TROP ' Serial specimen #1, #2 or #3: 1 Performed By: #### L 500.3400, L501.4020, L501.2450, L100.0100, L500.2500 #### [facility] [address] [place], [address] Globulin (S) [Mass/Vol] 3.9 g/dL Normal 2.2-4.2 [facility] Comment on above: Order Comment: 'TROP ' Serial specimen #1, #2 or #3: 1 Performed By: #### L 500.3400, L501.4020, L501.2450, L100.0100, L500.2500 #### [facility] [address] [place], [address] T PROT 7.6 g/dL Normal 6.4-8.2 [facility] Comment on above: Order Comment: 'TROP ' Serial specimen #1, #2 or #3: 1 Performed By: #### L 500.3400, L501.4020, L501.2450, L100.0100, L500.2500 #### [facility] [address] [place], [address] Absolute lymphocyte countOrd ered By: Dr. Ott on 09-15-2022 Lymphocytes Auto (Unsp spec) [#/Vol] 1.07 10*3/uL 0.83-4.51 [facility] Basophil percentageOrdered B y: Dr. Ott on 09-15-2022 Basophils/100 WBC (Bld) 0.4 % 0-1 [facility] Bilirubin [Mass/Vol] 0.60 mg/dL 0.20-1.00 [facility] Comment on above: For patients on eltr ombopag therapy, use of Dimension [place] TBIL is not recommended. Chloride [Moles/Vol] 105 mmol/L 98-107 [facility] Eosinophils/100 WBC (Bld) 1.1 % 0-5 [facility] Glucose [Mass/Vol] 249 mg/dL 74-106 [facility] Comment on above: Glucose result great er than or equal to 200 mg/dLsuggests DIABETES MELLITUS per A.D.A. criteria. Neutrophils (Bld) [#/Vol] 10.2 10*3/uL 2.0-7.7 [facility] Neutrophils/100 WBC (Bld) 84.7 % 47-70 [facility] Potassium [Moles/Vol] 5.1 mmol/L 3.5-5.1 [facility] Comment on above: Moderate Hemolysis, Result may be falsely increased. Protein [Mass/Vol] 7.6 g/dL 6.4-8.2 [facility] Sodium [Moles/Vol] 138 mmol/L 136-145 [facility] WBC (Bld) [#/Vol] 12.0 10*3/uL 4.4-11.0 [facility] Blood erythrocytes count (nu mber/volume)Ordered By: Dr. Ott on 09-15-2022 RBC (Bld) [#/Vol] 6.09 10*6/uL 4.2-5.4 [facility] Blood hemoglobin measurement (mass/volume)Ordered By: Dr. Ott on 09-15-2022 Hemoglobin (Bld) [Mass/Vol] 18.1 g/dL 12.0-15.0 [facility] Comment on above: CRITICAL VALUE VERIF IED. CALLED TO Tesha SHEA RN ER/ [id number].RESULTS READ BACK BY SAME. Blood lymphocytes/100 leukoc ytesOrdered By: Dr. Ott on 09-15-2022 Lymphocytes/100 WBC (Bld) 8.9 % 19-41 [facility] Blood monocytes/100 leukocyt esOrdered By: Dr. Ott on 09-15-2022 Monocytes/100 WBC (Bld) 4.3 % 0-10 [facility] Blood platelet mean volumeOr dered By: Dr. Ott on 09-15-2022 Platelet mean volume (Bld) [Entitic vol] 10.6 fL 6.2-12.0 [facility] Determination of erythrocyte mean corpuscular volume (MCV)Ordered By: Dr. Ott on 09-15-2022 MCV (RBC) [Entitic vol] 93.1 fL 81-99 [facility] Direct bilirubinOrdered By: Dr. Ott on 09-15-2022 Bilirubin.direct [Mass/Vol] 0.07 mg/dL 0.00-0.30 [facility] Hematocrit Auto (Bld) [Volum e fraction]Ordered By: Dr. Ott on 09-15-2022 Hematocrit (Bld) [Volume fraction] 56.7 % 37-47 [facility] - Chemistry and C hemistry - challengeOrdered By: Dr. Ott on 09-15-2022 ALP [Catalytic activity/Vol] 100 U/L 45-117 [facility] ALT [Catalytic activity/Vol] 17 U/L 13-56 [facility] CO2 [Moles/Vol] 20.0 mmol/L 21.0-32.0 [facility] Globulin (S) [Mass/Vol] 3.9 g/dL 2.2-4.2 [facility] Lipase [Catalytic activity/Vol] 42 U/L 73-393 [facility] Urea nitrogen/Creatinine [Mass ratio] 9.8 mg/mg 10-20 [facility] - Hematology and Cell countsOrdered By: Dr. Ott on 09-15-2022 Erythrocyte distribution width (RBC) [Entitic vol] 44.8 fL 35.1-43.9 [facility] Erythrocyte distribution width (RBC) [Ratio] 13.2 % 11.6-14.6 [facility] Immature granulocytes/100 WBC (Bld) 0.600 % 0.0-0.9 [facility] Comment on above: IG% - Immature Granu locytes (promyelocytes, myelocytes and metamyelocytes) > 1% indicates that a LEFT SHIFT is Present. MCH (RBC) [Entitic mass] 29.7 pg 27.0-32.0 [facility] Nucleated RBC/100 WBC (Bld) [Ratio] 0 % 0-5 [facility] MCHC Auto (RBC) [Mass/Vol]Or dered By: Dr. Ott on 09-15-2022 MCHC (RBC) [Mass/Vol] 31.9 g/dL 32-36 [facility] No Panel InformationOrdered By: Dr. Ott on 09-15-2022 Estimated Creatinine Clearance Calc 34.65 ml/min [facility] Estimated GFR (MDRD) Amer 55 mL/min >60 [facility] Comment on above: GFR Calc Estimated GFR (MDRD) Non-Af Amer 45 mL/min >60 [facility] Comment on above: Non- GFR Calc Troponin I High Sensitivity 10 pg/mL 3.0-54.0 [facility] Comment on above: Please Note: [place] t Units and Gender Specific Reference Ranges. For more information see Policy Stat Procedure [place] High Sensitivity Troponin (TNIH) and attachments. Platelets bldOrdered By: Dr. Ott on 09-15-2022 Platelets (Bld) [#/Vol] 216 10*3/uL 150-450 [facility] Review by pathologistOrdered By: Dr. Ott on 09-15-2022 Pathologist review [place] (Unsp spec) [Interp] Suzanna bhatti [facility] Pathologist review [place] (Unsp spec) [Interp] Reviewed [facility] Comment on above: Previous reported re sult: Suzanna bhatti Edited by: RGOBRETT on 09/17/22:0939Neutrophilic leukocytosis.Polycythemia Clinical correlation necessary.Eliezer Johns M.D. 09/17/22 AMENDED REPORT 09/17/22 0939 PATH REV previously reported as: Suzanna bhatti Serum or plasma albumin pavel urement (mass/volume)Ordered By: Dr. Ott on 09-15-2022 Albumin [Mass/Vol] 3.7 g/dL 3.2-5.0 [facility] Serum or plasma calcium pavel urement (mass/volume)Ordered By: Dr. Ott on 09-15-2022 Calcium [Mass/Vol] 9.3 mg/dL 8.5-10.1 [facility] Serum or plasma creatinine m easurement (mass/volume)Ordered By: Dr. Ott on 09-15-2022 Creatinine [Mass/Vol] 1.23 mg/dL 0.55-1.02 [facility] Comment on above: The validity of the calculated GFR & GFRAA in patients over 70 years has not been determined. Clinical correlation is essential. Serum or plasma urea nitroge n measurement (mass/volume)Ordered By: Dr. Ott on 09-15-2022 Urea nitrogen [Mass/Vol] 12 mg/dL 7-18 [facility] Thin prep Papanicolaou smear with manual screeningOrdered By: Dr. Ott on 09-15-2022 Thin prep Papanicolaou smear with manual screening 21 U/L 15-37 [facility] Comment on above: Moderate Hemolysis, Result may be falsely increased. Thin prep Papanicolaou smear with manual screening 13 01-12 [facility] LABORATORYOrdered By: Favian Contreras on 03-05-2022 Albumin DL <= 20 mg/L (U) [Mass/Vol] 1179 mcg/dL Invalid Interpretation Code AO ADM SS Albumin/Creatinine DL <= 20 mg/L (U) [Mass ratio] 16 mcg/mg Invalid Interpretation Code 0 - 30 mcg/mg AO ADM SS Creatinine (U) [Mass/Vol] 73.9 mg/dL Invalid Interpretation Code 28.0 - 117.0 mg/dL AO ADM SS Albumin BCP dye [Mass/Vol] 3.8 G/dL Invalid Interpretation Code 3.4 - 4.8 G/dL AO ADM SS Albumin/Globulin [Mass ratio] 1.2 {ratio} Invalid Interpretation Code 1.1 - 2.5 ratio AO ADM SS ALP [Catalytic activity/Vol] 80 U/L Invalid Interpretation Code 40 - 135 U/L AO ADM SS ALT With P-5'-P [Catalytic activity/Vol] 26 U/L Invalid Interpretation Code 14 - 59 U/L AO ADM SS AST With P-5'-P [Catalytic activity/Vol] 24 U/L Invalid Interpretation Code 10 - 40 U/L AO ADM SS Bilirubin [Mass/Vol] 0.4 mg/dL Invalid Interpretation Code 0.2 - 1.0 mg/dL AO ADM SS Calcium [Mass/Vol] 9.1 mg/dL Invalid Interpretation Code 8.4 - 10.2 mg/dL AO ADM SS Chloride [Moles/Vol] 103 mmol/L Invalid Interpretation Code 98 - 107 mmol/L AO ADM SS Cholesterol [Mass/Vol] 191 mg/dL Invalid Interpretation Code 0 - 200 mg/dL AO ADM SS Cholesterol in HDL [Mass/Vol] 40 mg/dL Invalid Interpretation Code 40 - 60 mg/dL AO ADM SS Cholesterol in LDL [Mass/Vol] 117 mg/dL Invalid Interpretation Code 0 - 130 mg/dL AO ADM SS CO2 [Moles/Vol] 32 mmol/L Invalid Interpretation Code 23 - 31 mmol/L AO ADM SS Creatinine [Mass/Vol] 0.81 mg/dL Invalid Interpretation Code 0.55 - 1.02 mg/dL AO ADM SS Electrolyte Balance 6.0 mEq/L Invalid Interpretation Code 4.0 - 15.0 mEq/L AO ADM SS Free T4 [Mass/Vol] 1.10 ng/dL Invalid Interpretation Code 0.76 - 1.46 ng/dL AO ADM SS Globulin 3.1 G/dL Invalid Interpretation Code AO ADM SS Glucose [Mass/Vol] 110 mg/dL Invalid Interpretation Code 83 - 110 mg/dL AO ADM SS HbA1c (Bld) [Mass fraction] 6.3 % Invalid Interpretation Code 4.3 - 6.4 % AO ADM SS Potassium [Moles/Vol] 4.5 mmol/L Invalid Interpretation Code 3.5 - 5.1 mmol/L AO ADM SS Protein [Mass/Vol] 6.9 G/dL Invalid Interpretation Code 6.4 - 8.2 G/dL AO ADM SS Sodium [Moles/Vol] 141 mmol/L Invalid Interpretation Code 136 - 145 mmol/L AO ADM SS Triglyceride [Mass/Vol] 171 mg/dL Invalid Interpretation Code 0 - 150 mg/dL AO ADM SS TSH Qn 2.07 m[IU]/L Invalid Interpretation Code 0.36 - 3.74 mcIU/mL AO ADM SS Urea nitrogen [Mass/Vol] 7 mg/dL Invalid Interpretation Code 7 - 18 mg/dL AO ADM SS Urea nitrogen/Creatinine [Mass ratio] 9 ratio Invalid Interpretation Code 7 - 27 ratio AO ADM SS Vit. D 25-Hydroxy 29.4 ng/mL Invalid Interpretation Code AO ADM SS LABORATORYOrdered By: SYSTEM SYSTEM on 03-05-2022 GFR 84 ml/min/1.73sqm Invalid Interpretation Code AO Chemistry S GFR Non- 69 ml/min/1.73sqm Inval id Interpretation Code AO Chemistry S Absolute lymphocyte counton 01-18-2022 Lymphocytes Auto (Unsp spec) [#/Vol] 1.62 10*3/uL 0.83-4.51 [facility] Work Phone: Basophil percentageon 2021 Basophils/100 WBC (Bld) 0.5 % 0-1 [facility] Work Phone: [phone] Chloride [Moles/Vol] 100 mmol/L 98-107 [facility] Work Phone: [phone] Eosinophils/100 WBC (Bld) 1.7 % 0-5 [facility] Work Phone: [phone] Glucose [Mass/Vol] 174 mg/dL 74-106 [facility] Work Phone: Comment on above: Fasting Glucose resu lt greater than or equal to 126 mg/dL suggests DIABETES MELLITUS per A.D.A. criteria. Neutrophils (Bld) [#/Vol] 5.8 10*3/uL 2.0-7.7 [facility] Work Phone: Neutrophils/100 WBC (Bld) 70.5 % 47-70 [facility] Work Phone: Potassium [Moles/Vol] 4.1 mmol/L 3.5-5.1 [facility] Work Phone: Sodium [Moles/Vol] 136 mmol/L 136-145 [facility] Work Phone: WBC (Bld) [#/Vol] 8.2 10*3/uL 4.4-11.0 [facility] Work Phone: Blood erythrocytes count (nu mber/volume)on 01-18-2022 RBC (Bld) [#/Vol] 4.01 10*6/uL 4.2-5.4 [facility] Work Phone: Blood hemoglobin measurement (mass/volume)on 01-18-2022 Hemoglobin (Bld) [Mass/Vol] 11.8 g/dL 12.0-15.0 [facility] Work Phone: Blood lymphocytes/100 leukoc yteson 01-18-2022 Lymphocytes/100 WBC (Bld) 19.7 % 19-41 [facility] Work Phone: Blood monocytes/100 leukocyt eson 01-18-2022 Monocytes/100 WBC (Bld) 6.4 % 0-10 [facility] Work Phone: Blood platelet mean volumeon 01-18-2022 Platelet mean volume (Bld) [Entitic vol] 10.1 fL 6.2-12.0 [facility] Work Phone: Determination of erythrocyte mean corpuscular volume (MCV)on 01-18-2022 MCV (RBC) [Entitic vol] 92.5 fL 81-99 [facility] Work Phone: Glucose Glucometer (BldC) [M ass/Vol]on 01-18-2022 Glucose [Mass/Vol] 243 mg/dL 74-106 [facility] Work Phone: Comment on above: MANAGEMENT OF PATIEN T CARE PER NURSING PROTOCOL Hematocrit Auto (Bld) [Volum e fraction]on 01-18-2022 Hematocrit (Bld) [Volume fraction] 37.1 % 37-47 [facility] Work Phone: Laboratory - Chemistry and C hemistry - challengeon 01-18-2022 CO2 [Moles/Vol] 32.0 mmol/L 21.0-32.0 [facility] Work Phone: Urea nitrogen/Creatinine [Mass ratio] 23.8 mg/mg 10-20 [facility] Work Phone: Laboratory - Hematology and Cell countson 01-18-2022 Erythrocyte distribution width (RBC) [Entitic vol] 42.2 fL 35.1-43.9 [facility] Work Phone: Erythrocyte distribution width (RBC) [Ratio] 12.5 % 11.6-14.6 [facility] Work Phone: Immature granulocytes/100 WBC (Bld) 1.200 % 0.0-0.9 [facility] Work Phone: Comment on above: IG% - Immature Granu locytes (promyelocytes, myelocytes and metamyelocytes) > 1% indicates that a LEFT SHIFT is Present. MCH (RBC) [Entitic mass] 29.4 pg 27.0-32.0 [facility] Work Phone: Nucleated RBC/100 WBC (Bld) [Ratio] 0 % 0-5 [facility] Work Phone: MCHC Auto (RBC) [Mass/Vol]on 01-18-2022 MCHC (RBC) [Mass/Vol] 31.8 g/dL 32-36 [facility] Work Phone: No Panel Informationon 01-18 Estimated Creatinine Clearance Calc 43.27 ml/min [facility] Work Phone: Estimated GFR (MDRD) Amer 96 mL/min >60 [facility] Work Phone: Comment on above: GFR Calc Estimated GFR (MDRD) Non-Af Amer 80 mL/min >60 [facility] Work Phone: Comment on above: Non- GFR Calc Platelets bldon 01-18-2022 Platelets (Bld) [#/Vol] 345 10*3/uL 150-450 [facility] Work Phone: Serum or plasma calcium pavel urement (mass/volume)on 01-18-2022 Calcium [Mass/Vol] 9.6 mg/dL 8.5-10.1 [facility] Work Phone: Serum or plasma creatinine m easurement (mass/volume)on 01-18-2022 Creatinine [Mass/Vol] 0.76 mg/dL 0.55-1.02 [facility] Work Phone: Comment on above: The validity of the calculated GFR & GFRAA in patients over 70 years has not been determined. Clinical correlation is essential. Serum or plasma urea nitroge n measurement (mass/volume)on 01-18-2022 Urea nitrogen [Mass/Vol] 18 mg/dL 7-18 [facility] Work Phone: Thin prep Papanicolaou smear with manual screeningon 01-18-2022 Thin prep Papanicolaou smear with manual screening 4 5-15 [facility] Work Phone: Bacteria identified Anaer cx Nom (Unsp spec)on 01-16-2022 Anaerobic Culture Anaerobic cocci [facility] Work Phone: Bacteria identified Cx Nom ( Wound)on 01-16-2022 Wound Culture Staphylococcus aureus [facility] Work Phone: Wound Culture Positive [facility] Work Phone: Gram stain for investigation of transfusion reactionon 01-16-2022 Microscopic observation Gram stain Nom (Unsp spec) [facility] Work Phone: No Panel Informationon 01-16 Thyroid Stimulating Hormone (TSH) 1.90 uIU/mL 0.358-3.74 [facility] Work Phone: Vancomycin troughon 01-17-20 Vancomycin trough [Mass/Vol] 8.1 ug/mL 5.0-15.0 [facility] Work Phone: Comment on above: VANCOMYCIN STANDARED DRUG THERAPY TROUGH LEVEL: 5.0 - 15.0 mg/L VANCOMYCIN HIGH INTENSITY THERAPY TROUGH LEVEL: 15.0 - 20.0 mg/L High Intensity therapy recommended for serious lifethreatening infections include:- Rvwbrirmjl-Sbaaapayhobz-Dehdfjvdq (Ventilator/Healtcare Associated)-Sepsis PLEASE CONTACT PHARMACY SERVICES (#[phone]) FOR INTERPRETATIONOF RESULTS. Absolute lymphocyte counton 01-14-2022 Lymphocytes Auto (Unsp spec) [#/Vol] 1.55 10*3/uL 0.83-4.51 [facility] Work Phone: Basophil percentageon 2021 Lactate [Moles/Vol] 1.2 mmol/L 0.4-2.0 [facility] Work Phone: Basophils/100 WBC (Bld) 0.3 % 0-1 [facility] Work Phone: Bilirubin [Mass/Vol] 0.20 mg/dL 0.20-1.00 [facility] Work Phone: Comment on above: For patients on eltr ombopag therapy, use of Dimension [place] TBIL is not recommended. Chloride [Moles/Vol] 99 mmol/L 98-107 [facility] Work Phone: Eosinophils/100 WBC (Bld) 0.8 % 0-5 [facility] Work Phone: Glucose [Mass/Vol] 49 mg/dL 74-106 [facility] Work Phone: Comment on above: Glucose result less than 50 mg/dL suggests HYPOGLYCEMIA. Lactate [Moles/Vol] 2.8 mmol/L 0.4-2.0 [facility] Work Phone: Comment on above: Critical Result(s) C alled at: 20:22:03 01/14/2022 by: Virginie persaud [facility] Results read back by same. Neutrophils (Bld) [#/Vol] 8.3 10*3/uL 2.0-7.7 [facility] Work Phone: Neutrophils/100 WBC (Bld) 75.0 % 47-70 [facility] Work Phone: Potassium [Moles/Vol] 3.8 mmol/L 3.5-5.1 [facility] Work Phone: Protein [Mass/Vol] 6.9 g/dL 6.4-8.2 [facility] Work Phone: Sodium [Moles/Vol] 136 mmol/L 136-145 [facility] Work Phone: WBC (Bld) [#/Vol] 11.0 10*3/uL 4.4-11.0 [facility] Work Phone: Blood erythrocytes count (nu mber/volume)on 01-14-2022 RBC (Bld) [#/Vol] 3.73 10*6/uL 4.2-5.4 [facility] Work Phone: Blood hemoglobin measurement (mass/volume)on 01-14-2022 Hemoglobin (Bld) [Mass/Vol] 11.2 g/dL 12.0-15.0 [facility] Work Phone: Blood lymphocytes/100 leukoc yteson 01-14-2022 Lymphocytes/100 WBC (Bld) 14.1 % 19-41 [facility] Work Phone: Blood monocytes/100 leukocyt eson 01-14-2022 Monocytes/100 WBC (Bld) 8.3 % 0-10 [facility] Work Phone: Blood platelet mean volumeon 01-14-2022 Platelet mean volume (Bld) [Entitic vol] 10.8 fL 6.2-12.0 [facility] Work Phone: Determination of erythrocyte mean corpuscular volume (MCV)on 01-14-2022 MCV (RBC) [Entitic vol] 91.4 fL 81-99 [facility] Work Phone: Hematocrit Auto (Bld) [Volum e fraction]on 01-14-2022 Hematocrit (Bld) [Volume fraction] 34.1 % 37-47 [facility] Work Phone: INR in Blood by Coagulation assayon 01-14-2022 INR Coag (Bld) [Relative time] 1.2 {INR} [facility] Work Phone: Laboratory - Chemistry and C hemistry - challengeon 01-14-2022 ALP [Catalytic activity/Vol] 52 U/L 45-117 [facility] Work Phone: ALT [Catalytic activity/Vol] 23 U/L 13-56 [facility] Work Phone: CO2 [Moles/Vol] 29.0 mmol/L 21.0-32.0 [facility] Work Phone: Globulin (S) [Mass/Vol] 4.4 g/dL 2.2-4.2 [facility] Work Phone: Urea nitrogen/Creatinine [Mass ratio] 17.1 mg/mg 10-20 [facility] Work Phone: Laboratory - Coagulationon 0 01-14-2022 aPTT Coag (Bld) [Time] 35.5 s 24.1-36.2 [facility] Work Phone: PT Coag (PPP) [Time] 15.0 s 11.7-14.[address] [facility] Work Phone: Laboratory - Hematology and Cell countson 01-14-2022 Erythrocyte distribution width (RBC) [Entitic vol] 41.9 fL 35.1-43.9 [facility] Work Phone: Erythrocyte distribution width (RBC) [Ratio] 12.5 % 11.6-14.6 [facility] Work Phone: Immature granulocytes/100 WBC (Bld) 1.500 % 0.0-0.9 [facility] Work Phone: Comment on above: IG% - Immature Granu locytes (promyelocytes, myelocytes and metamyelocytes) > 1% indicates that a LEFT SHIFT is Present. MCH (RBC) [Entitic mass] 30.0 pg 27.0-32.0 [facility] Work Phone: Nucleated RBC/100 WBC (Bld) [Ratio] 0 % 0-5 [facility] Work Phone: Laboratory - Microbiology an d Antimicrobial susceptibilityon 01-14-2022 Bacteria identified Cx Nom (Bld) No growth in 5 days. [facility] Work Phone: MCHC Auto (RBC) [Mass/Vol]on 01-14-2022 MCHC (RBC) [Mass/Vol] 32.8 g/dL 32-36 [facility] Work Phone: No Panel Informationon 01-14 Estimated Creatinine Clearance Calc 38.53 ml/min [facility] Work Phone: Estimated GFR (MDRD) Amer 58 mL/min >60 [facility] Work Phone: Comment on above: GFR Calc Estimated GFR (MDRD) Non-Af Amer 48 mL/min >60 [facility] Work Phone: Comment on above: Non- GFR Calc Platelets bldon 01-14-2022 Platelets (Bld) [#/Vol] 318 10*3/uL 150-450 [facility] Work Phone: Serum or plasma albumin pavel urement (mass/volume)on 01-14-2022 Albumin [Mass/Vol] 2.5 g/dL 3.2-5.0 [facility] Work Phone: Serum or plasma albumin/glob ulin mass ratioon 01-14-2022 Albumin/Globulin [Mass ratio] 0.6 {ratio} 0.9-2.4 [facility] Work Phone: Serum or plasma calcium pavel urement (mass/volume)on 01-14-2022 Calcium [Mass/Vol] 8.9 mg/dL 8.5-10.1 [facility] Work Phone: Serum or plasma creatinine m easurement (mass/volume)on 01-14-2022 Creatinine [Mass/Vol] 1.17 mg/dL 0.55-1.02 [facility] Work Phone: Comment on above: The validity of the calculated GFR & GFRAA in patients over 70 years has not been determined. Clinical correlation is essential. Serum or plasma urea nitroge n measurement (mass/volume)on 01-14-2022 Urea nitrogen [Mass/Vol] 20 mg/dL 7-18 [facility] Work Phone: Thin prep Papanicolaou smear with manual screeningon 01-14-2022 Thin prep Papanicolaou smear with manual screening 31 U/L 15-37 [facility] Work Phone: Thin prep Papanicolaou smear with manual screening 8 5-15 [facility] Work Phone: Absolute lymphocyte counton 01-13-2022 Lymphocytes Auto (Unsp spec) [#/Vol] 0.98 10*3/uL 0.83-4.51 [facility] Work Phone: Basophil percentageon 2021 Basophils/100 WBC (Bld) 0.3 % 0-1 [facility] Work Phone: Bilirubin [Mass/Vol] 0.40 mg/dL 0.20-1.00 [facility] Work Phone: Comment on above: For patients on eltr ombopag therapy, use of Dimension [place] TBIL is not recommended. Chloride [Moles/Vol] 99 mmol/L 98-107 [facility] Work Phone: Eosinophils/100 WBC (Bld) 0.6 % 0-5 [facility] Work Phone: [phone] Glucose [Mass/Vol] 142 mg/dL 74-106 [facility] Work Phone: [phone] Comment on above: Fasting Glucose resu lt greater than or equal to 126 mg/dL suggests DIABETES MELLITUS per A.D.A. criteria. Neutrophils (Bld) [#/Vol] 7.7 10*3/uL 2.0-7.7 [facility] Work Phone: [phone] Neutrophils/100 WBC (Bld) 81.1 % 47-70 [facility] Work Phone: [phone] Potassium [Moles/Vol] 4.1 mmol/L 3.5-5.1 [facility] Work Phone: [phone] Protein [Mass/Vol] 6.5 g/dL 6.4-8.2 [facility] Work Phone: [phone] Sodium [Moles/Vol] 132 mmol/L 136-145 [facility] Work Phone: [phone] WBC (Bld) [#/Vol] 9.5 10*3/uL 4.4-11.0 [facility] Work Phone: Blood erythrocytes count (nu mber/volume)on 01-13-2022 RBC (Bld) [#/Vol] 3.63 10*6/uL 4.2-5.4 [facility] Work Phone: Blood hemoglobin measurement (mass/volume)on 01-13-2022 Hemoglobin (Bld) [Mass/Vol] 10.9 g/dL 12.0-15.0 [facility] Work Phone: Blood lymphocytes/100 leukoc yteson 01-13-2022 Lymphocytes/100 WBC (Bld) 10.3 % 19-41 [facility] Work Phone: Blood monocytes/100 leukocyt eson 01-13-2022 Monocytes/100 WBC (Bld) 7.1 % 0-10 [facility] Work Phone: Blood platelet mean volumeon 01-13-2022 Platelet mean volume (Bld) [Entitic vol] 11.3 fL 6.2-12.0 [facility] Work Phone: Determination of erythrocyte mean corpuscular volume (MCV)on 01-13-2022 MCV (RBC) [Entitic vol] 90.4 fL 81-99 [facility] Work Phone: Erythrocyte sedimentation ra salud 01-13-2022 ESR (Bld) [Velocity] 67 mm/h 0-[facility]: Hematocrit Auto (Bld) [Volum e fraction]on 01-13-2022 Hematocrit (Bld) [Volume fraction] 32.8 % 37-47 [facility] Work Phone: Laboratory - Chemistry and C hemistry - challengeon 01-13-2022 ALP [Catalytic activity/Vol] 46 U/L 45-117 [facility] Work Phone: ALT [Catalytic activity/Vol] 22 U/L 13-56 [facility] Work Phone: CO2 [Moles/Vol] 27.0 mmol/L 21.0-32.0 [facility] Work Phone: Globulin (S) [Mass/Vol] 4.1 g/dL 2.2-4.2 [facility] Work Phone: Urea nitrogen/Creatinine [Mass ratio] 20.4 mg/mg 10-20 [facility] Work Phone: Laboratory - Hematology and Cell countson 01-13-2022 Erythrocyte distribution width (RBC) [Entitic vol] 41.1 fL 35.1-43.9 [facility] Work Phone: Erythrocyte distribution width (RBC) [Ratio] 12.4 % 11.6-14.6 [facility] Work Phone: Immature granulocytes/100 WBC (Bld) 0.600 % 0.0-0.9 [facility] Work Phone: Comment on above: IG% - Immature Granu locytes (promyelocytes, myelocytes and metamyelocytes) > 1% indicates that a LEFT SHIFT is Present. MCH (RBC) [Entitic mass] 30.0 pg 27.0-32.0 [facility] Work Phone: Nucleated RBC/100 WBC (Bld) [Ratio] 0 % 0-5 [facility] Work Phone: MCHC Auto (RBC) [Mass/Vol]on 01-13-2022 MCHC (RBC) [Mass/Vol] 33.2 g/dL 32-36 [facility] Work Phone: No Panel Informationon 01-13 Estimated Creatinine Clearance Calc 39.90 ml/min [facility] Work Phone: Estimated GFR (MDRD) Amer 61 mL/min >60 [facility] Work Phone: Comment on above: GFR Calc Estimated GFR (MDRD) Non-Af Amer 50 mL/min >60 [facility] Work Phone: Comment on above: Non- GFR Calc Platelets bldon 01-13-2022 Platelets (Bld) [#/Vol] 240 10*3/uL 150-450 [facility] Work Phone: Serum or plasma C reactive p rotein measurement (mass/volume)on 01-13-2022 CRP [Mass/Vol] 162.00 mg/L 0.0-3.0 [facility] Work Phone: Comment on above: C-Reactive Protein ( CRP) provides useful information for thediagnosis, therapy and monitoring of inflammatory processesand associated diseases. For the evaluation of Relative Riskfor Cardiovascular Disease, a High Sensitivity CRP (HSCRP)should be ordered. Serum or plasma albumin pavel urement (mass/volume)on 01-13-2022 Albumin [Mass/Vol] 2.4 g/dL 3.2-5.0 [facility] Work Phone: Serum or plasma albumin/glob ulin mass ratioon 01-13-2022 Albumin/Globulin [Mass ratio] 0.6 {ratio} 0.9-2.4 [facility] Work Phone: Serum or plasma calcium pavel urement (mass/volume)on 01-13-2022 Calcium [Mass/Vol] 8.7 mg/dL 8.5-10.1 [facility] Work Phone: Serum or plasma creatinine m easurement (mass/volume)on 01-13-2022 Creatinine [Mass/Vol] 1.13 mg/dL 0.55-1.02 [facility] Work Phone: Comment on above: The validity of the calculated GFR & GFRAA in patients over 70 years has not been determined. Clinical correlation is essential. Serum or plasma urea nitroge n measurement (mass/volume)on 01-13-2022 Urea nitrogen [Mass/Vol] 23 mg/dL 7-18 [facility] Work Phone: Thin prep Papanicolaou smear with manual screeningon 01-13-2022 Thin prep Papanicolaou smear with manual screening 36 U/L 15-37 [facility] Work Phone: Thin prep Papanicolaou smear with manual screening 6 5-15 [facility] Work Phone: No Panel Informationon 01-10 Culture Urine 50,000 - 100,000 cfu/ml Multiple bacterial morphotypes present. Probable Contamination. Suggest recollection if clinically indicated. [facility] Bacteria identified Anaer cx Nom (Unsp spec)on 12-26-2021 Anaerobic microbial culture No anaerobic bacteria isolated. [facility] Work Phone: Bacteria identified Cx Nom ( Wound)on 12-26-2021 Wound Culture Staphylococcus lugdunensis [facility] Work Phone: Wound Culture Staphylococcus epidermidis [facility] Work Phone: Gram stain for investigation of transfusion reactionon 12-26-2021 Microscopic observation Gram stain Nom (Unsp spec) [facility] Work Phone: LABORATORYOrdered By: Favian Contreras on 12-20-2021 Calcium [Mass/Vol] 8.9 mg/dL Invalid Interpretation Code 8.4 - 10.2 mg/dL AO ADM SS Chloride [Moles/Vol] 105 mmol/L Invalid Interpretation Code 98 - 107 mmol/L AO ADM SS CO2 [Moles/Vol] 31 mmol/L Invalid Interpretation Code 23 - 31 mmol/L AO ADM SS Creatinine [Mass/Vol] 0.93 mg/dL Invalid Interpretation Code 0.55 - 1.02 mg/dL AO ADM SS Electrolyte Balance 9.0 mEq/L Invalid Interpretation Code 4.0 - 15.0 mEq/L AO ADM SS Glucose [Mass/Vol] 238 mg/dL Invalid Interpretation Code 83 - 110 mg/dL AO ADM SS Potassium [Moles/Vol] 4.6 mmol/L Invalid Interpretation Code 3.5 - 5.1 mmol/L AO ADM SS Sodium [Moles/Vol] 145 mmol/L Invalid Interpretation Code 136 - 145 mmol/L AO ADM SS TSH Qn 1.95 m[IU]/L Invalid Interpretation Code 0.36 - 3.74 mcIU/mL AO ADM SS Urea nitrogen [Mass/Vol] 10 mg/dL Invalid Interpretation Code 7 - 18 mg/dL AO ADM SS Urea nitrogen/Creatinine [Mass ratio] 11 ratio Invalid Interpretation Code 7 - 27 ratio AO ADM SS LABORATORYOrdered By: SYSTEM SYSTEM on 12-20-2021 GFR 72 ml/min/1.73sqm Invalid Interpretation Code AO Chemistry S GFR Non- 59 ml/min/1.73sqm Inval id Interpretation Code AO Chemistry S Absolute lymphocyte counton 11-20-2021 Lymphocytes Auto (Unsp spec) [#/Vol] 1.62 10*3/uL 0.83-4.51 [facility] Work Phone: Basophil percentageon 2021 Basophils/100 WBC (Bld) 0.6 % 0-1 [facility] Work Phone: Bilirubin [Mass/Vol] 0.30 mg/dL 0.20-1.00 [facility] Work Phone: Comment on above: For patients on eltr ombopag therapy, use of Dimension [place] TBIL is not recommended. Chloride [Moles/Vol] 85 mmol/L 98-107 [facility] Work Phone: Eosinophils/100 WBC (Bld) 1.0 % 0-5 [facility] Work Phone: Glucose [Mass/Vol] 165 mg/dL 74-106 [facility] Work Phone: Comment on above: Fasting Glucose resu lt greater than or equal to 126 mg/dL suggests DIABETES MELLITUS per A.D.A. criteria. Neutrophils (Bld) [#/Vol] 4.4 10*3/uL 2.0-7.7 [facility] Work Phone: Neutrophils/100 WBC (Bld) 65.4 % 47-70 [facility] Work Phone: Potassium [Moles/Vol] 3.3 mmol/L 3.5-5.1 [facility] Work Phone: Protein [Mass/Vol] 7.3 g/dL 6.4-8.2 [facility] Work Phone: Sodium [Moles/Vol] 127 mmol/L 136-145 [facility] Work Phone: WBC (Bld) [#/Vol] 6.8 10*3/uL 4.4-11.0 [facility] Work Phone: Blood erythrocytes count (nu mber/volume)on 11-20-2021 RBC (Bld) [#/Vol] 4.81 10*6/uL 4.2-5.4 [facility] Work Phone: Blood hemoglobin measurement (mass/volume)on 11-20-2021 Hemoglobin (Bld) [Mass/Vol] 14.4 g/dL 12.0-15.0 [facility] Work Phone: Blood lymphocytes/100 leukoc yteson 11-20-2021 Lymphocytes/100 WBC (Bld) 24.0 % 19-41 [facility] Work Phone: Blood monocytes/100 leukocyt eson 11-20-2021 Monocytes/100 WBC (Bld) 8.9 % 0-10 [facility] Work Phone: Blood platelet mean volumeon 11-20-2021 Platelet mean volume (Bld) [Entitic vol] 9.6 fL 6.2-12.0 [facility] Work Phone: Determination of erythrocyte mean corpuscular volume (MCV)on 11-20-2021 MCV (RBC) [Entitic vol] 82.5 fL 81-99 [facility] Work Phone: Erythrocyte sedimentation ra salud 11-20-2021 ESR (Bld) [Velocity] 30 mm/h 0-30 [facility] Work Phone: Hematocrit Auto (Bld) [Volum e fraction]on 11-20-2021 Hematocrit (Bld) [Volume fraction] 39.7 % 37-47 [facility] Work Phone: Laboratory - Chemistry and C hemistry - challengeon 11-20-2021 ALP [Catalytic activity/Vol] 75 U/L 45-117 [facility] Work Phone: ALT [Catalytic activity/Vol] 15 U/L 13-56 [facility] Work Phone: CO2 [Moles/Vol] 36.0 mmol/L 21.0-32.0 [facility] Work Phone: Globulin (S) [Mass/Vol] 3.6 g/dL 2.2-4.2 [facility] Work Phone: Urea nitrogen/Creatinine [Mass ratio] 20.7 mg/mg 10-20 [facility] Work Phone: Laboratory - Hematology and Cell countson 11-20-2021 Erythrocyte distribution width (RBC) [Entitic vol] 34.5 fL 35.1-43.9 [facility] Work Phone: Erythrocyte distribution width (RBC) [Ratio] 11.4 % 11.6-14.6 [facility] Work Phone: Immature granulocytes/100 WBC (Bld) 0.100 % 0.0-0.9 [facility] Work Phone: Comment on above: IG% - Immature Granu locytes (promyelocytes, myelocytes and metamyelocytes) > 1% indicates that a LEFT SHIFT is Present. MCH (RBC) [Entitic mass] 29.9 pg 27.0-32.0 [facility] Work Phone: Nucleated RBC/100 WBC (Bld) [Ratio] 0 % 0-5 [facility] Work Phone: MCHC Auto (RBC) [Mass/Vol]on 11-20-2021 MCHC (RBC) [Mass/Vol] 36.3 g/dL 32-36 [facility] Work Phone: No Panel Informationon 11-20 Estimated Creatinine Clearance Calc 54.98 ml/min [facility] Work Phone: Estimated GFR (MDRD) Amer 87 mL/min >60 [facility] Work Phone: Comment on above: GFR Calc Estimated GFR (MDRD) Non-Af Amer 72 mL/min >60 [facility] Work Phone: Comment on above: Non- GFR Calc Platelets bldon 11-20-2021 Platelets (Bld) [#/Vol] 231 10*3/uL 150-450 [facility] Work Phone: Serum or plasma C reactive p rotein measurement (mass/volume)on 11-20-2021 CRP [Mass/Vol] 5.93 mg/L 0.0-3.0 [facility] Work Phone: Comment on above: C-Reactive Protein ( CRP) provides useful information for thediagnosis, therapy and monitoring of inflammatory processesand associated diseases. For the evaluation of Relative Riskfor Cardiovascular Disease, a High Sensitivity CRP (HSCRP)should be ordered. Serum or plasma albumin pavel urement (mass/volume)on 11-20-2021 Albumin [Mass/Vol] 3.7 g/dL 3.2-5.0 [facility] Work Phone: Serum or plasma albumin/glob ulin mass ratioon 11-20-2021 Albumin/Globulin [Mass ratio] 1.0 {ratio} 0.9-2.4 [facility] Work Phone: Serum or plasma calcium pavel urement (mass/volume)on 11-20-2021 Calcium [Mass/Vol] 9.4 mg/dL 8.5-10.1 [facility] Work Phone: Serum or plasma creatinine m easurement (mass/volume)on 11-20-2021 Creatinine [Mass/Vol] 0.82 mg/dL 0.55-1.02 [facility] Work Phone: Comment on above: The validity of the calculated GFR & GFRAA in patients over 70 years has not been determined. Clinical correlation is essential. Serum or plasma transthyreti n measurement (mass/volume)on 11-20-2021 Prealbumin [Mass/Vol] 20.3 mg/dL 20.0-40.0 [facility] Work Phone: Serum or plasma urea nitroge n measurement (mass/volume)on 11-20-2021 Urea nitrogen [Mass/Vol] 17 mg/dL 7-18 [facility] Work Phone: Thin prep Papanicolaou smear with manual screeningon 11-20-2021 Thin prep Papanicolaou smear with manual screening 15 U/L 15-37 [facility] Work Phone: Thin prep Papanicolaou smear with manual screening 6 5-15 [facility] Work Phone: Whole blood hemoglobin A1c/t otal hemoglobin ratio (mass fraction)on 11-20-2021 HbA1c (Bld) [Mass fraction] 7.7 % 3.8-5.6 [facility] Work Phone: Comment on above: Normal < 5.7 % Predi abetic 5.7 - 6.4 % Diabetic >or= 6.5 % Please note range changes. Bacteria identified Anaer cx Nom (Unsp spec)on 11-07-2021 Anaerobic microbial culture No anaerobic bacteria isolated. [facility] Work Phone: Bacteria identified Cx Nom ( Wound)on 11-07-2021 Wound Culture Staphylococcus epidermidis [facility] Work Phone: Wound Culture Staphylococcus auricularis [facility] Work Phone: Gram stain for investigation of transfusion reactionon 11-07-2021 Microscopic observation Gram stain Nom (Unsp spec) [facility] Work Phone: LABORATORYOrdered By: Donte Farris on 10-16-2021 Albumin DL <= 20 mg/L (U) [Mass/Vol] 750 mcg/dL Invalid Interpretation Code AO ADM SS Albumin/Creatinine DL <= 20 mg/L (U) [Mass ratio] 7 mcg/mg Invalid Interpretation Code 0 - 30 mcg/mg AO ADM SS Creatinine (U) [Mass/Vol] 102.8 mg/dL Invalid Interpretation Code 28.0 - 117.0 mg/dL AO ADM SS LABORATORYOrdered By: Nabila Canales on 10-15-2021 Albumin BCP dye [Mass/Vol] 3.8 G/dL Invalid Interpretation Code 3.4 - 4.8 G/dL AO ADM SS Albumin/Globulin [Mass ratio] 1.3 {ratio} Invalid Interpretation Code 1.1 - 2.5 ratio AO ADM SS ALP [Catalytic activity/Vol] 87 U/L Invalid Interpretation Code 40 - 135 U/L AO ADM SS ALT With P-5'-P [Catalytic activity/Vol] 19 U/L Invalid Interpretation Code 14 - 59 U/L AO ADM SS AST With P-5'-P [Catalytic activity/Vol] 17 U/L Invalid Interpretation Code 10 - 40 U/L AO ADM SS Bilirubin [Mass/Vol] 0.4 mg/dL Invalid Interpretation Code 0.2 - 1.0 mg/dL AO ADM SS Calcium [Mass/Vol] 9.1 mg/dL Invalid Interpretation Code 8.4 - 10.2 mg/dL AO ADM SS Chloride [Moles/Vol] 108 mmol/L Invalid Interpretation Code 98 - 107 mmol/L AO ADM SS CO2 [Moles/Vol] 31 mmol/L Invalid Interpretation Code 23 - 31 mmol/L AO ADM SS Creatinine [Mass/Vol] 0.85 mg/dL Invalid Interpretation Code 0.55 - 1.02 mg/dL AO ADM SS Electrolyte Balance 9.0 mEq/L Invalid Interpretation Code 4.0 - 15.0 mEq/L AO ADM SS Globulin 3.0 G/dL Invalid Interpretation Code AO ADM SS Glucose [Mass/Vol] 77 mg/dL Invalid Interpretation Code 83 - 110 mg/dL AO ADM SS Potassium [Moles/Vol] 4.5 mmol/L Invalid Interpretation Code 3.5 - 5.1 mmol/L AO ADM SS Protein [Mass/Vol] 6.8 G/dL Invalid Interpretation Code 6.4 - 8.2 G/dL AO ADM SS Sodium [Moles/Vol] 148 mmol/L Invalid Interpretation Code 136 - 145 mmol/L AO ADM SS Urea nitrogen [Mass/Vol] 13 mg/dL Invalid Interpretation Code 7 - 18 mg/dL AO ADM SS Urea nitrogen/Creatinine [Mass ratio] 15 ratio Invalid Interpretation Code 7 - 27 ratio AO ADM SS Vit. D 25-Hydroxy 28.6 ng/mL Invalid Interpretation Code AO ADM SS LABORATORYOrdered By: SYSTEM SYSTEM on 10-15-2021 GFR 79 ml/min/1.73sqm Invalid Interpretation Code AO Chemistry S GFR Non- 66 ml/min/1.73sqm Inval id Interpretation Code AO Chemistry S LABORATORYOrdered By: Donte Farris on 10-15-2021 HbA1c (Bld) [Mass fraction] 8.0 % Invalid Interpretation Code 4.3 - 6.4 % AO ADM SS TSH Qn 1.74 m[IU]/L Invalid Interpretation Code 0.36 - 3.74 mcIU/mL AO ADM SS Bacteria identified Anaer cx Nom (Unsp spec)on 08-08-2021 Anaerobic microbial culture No anaerobic bacteria isolated. [facility] Work Phone: Bacteria identified Cx Nom ( Wound)on 08-08-2021 Wound Culture Staphylococcus epidermidis [facility] Work Phone: Gram stain for investigation of transfusion reactionon 08-08-2021 Microscopic observation Gram stain Nom (Unsp spec) [facility] Work Phone: LABORATORYOrdered By: Laurie Romero on 07-19-2021 Albumin BCP dye [Mass/Vol] 3.5 G/dL Invalid Interpretation Code 3.4 - 4.8 G/dL AO ADM SS Albumin/Globulin [Mass ratio] 1.1 {ratio} Invalid Interpretation Code 1.1 - 2.5 ratio AO ADM SS ALP [Catalytic activity/Vol] 85 U/L Invalid Interpretation Code 40 - 135 U/L AO ADM SS ALT With P-5'-P [Catalytic activity/Vol] 16 U/L Invalid Interpretation Code 14 - 59 U/L AO ADM SS AST With P-5'-P [Catalytic activity/Vol] 13 U/L Invalid Interpretation Code 10 - 40 U/L AO ADM SS Basophil, Absolute 0.00 103/mcL Invalid Interpretation Code 0.00 - 0.19 10^3/mcL AO Auto Heme SS Basophils/100 WBC (Bld) 0.6 % Invalid Interpretation Code 0.0 - 2.5 % AO Auto Heme SS Bilirubin [Mass/Vol] 0.2 mg/dL Invalid Interpretation Code 0.2 - 1.0 mg/dL AO ADM SS Calcium [Mass/Vol] 8.5 mg/dL Invalid Interpretation Code 8.4 - 10.2 mg/dL AO ADM SS Chloride [Moles/Vol] 103 mmol/L Invalid Interpretation Code 98 - 107 mmol/L AO ADM SS CO2 [Moles/Vol] 31 mmol/L Invalid Interpretation Code 23 - 31 mmol/L AO ADM SS Creatinine [Mass/Vol] 0.91 mg/dL Invalid Interpretation Code 0.55 - 1.02 mg/dL AO ADM SS Electrolyte Balance 8.0 mEq/L Invalid Interpretation Code AO ADM SS Eosinophil, Absolute 0.10 103/mcL Invalid Interpretation Code 0.00 - 0.40 10^3/mcL AO Auto Heme SS Eosinophils/100 WBC (Bld) 0.9 % Invalid Interpretation Code 0.0 - 7.0 % AO Auto Heme SS Erythrocyte distribution width (RBC) [Ratio] 14.1 % Invalid Interpretation Code 11.5 - 14.5 % AO Auto Heme SS Globulin 3.3 G/dL Invalid Interpretation Code AO ADM SS Glucose [Mass/Vol] 77 mg/dL Invalid Interpretation Code 83 - 110 mg/dL AO ADM SS Hematocrit (Bld) [Volume fraction] 42.4 % Invalid Interpretation Code 37.0 - 47.0 % AO Auto Heme SS Hemoglobin (Bld) [Mass/Vol] 14.2 G/dL Invalid Interpretation Code 12.0 - 16.0 G/dL AO Auto Heme SS Lymphocyte, Absolute 1.20 103/mcL Invalid Interpretation Code 0.77 - 3.85 10^3/mcL AO Auto Heme SS Lymphocytes/100 WBC (Bld) 16.5 % Invalid Interpretation Code 10.0 - 50.0 % AO Auto Heme SS MCH (RBC) [Entitic mass] 30.2 pg Invalid Interpretation Code 27.0 - 31.2 pg AO Auto Heme SS MCHC (RBC) [Mass/Vol] 33.5 G/dL Invalid Interpretation Code 33.0 - 37.0 G/dL AO Auto Heme SS MCV (RBC) [Entitic vol] 90.1 fL Invalid Interpretation Code 80.0 - 94.0 fL AO Auto Heme SS Monocyte, Absolute 0.50 103/mcL Invalid Interpretation Code 0.15 - 1.00 10^3/mcL AO Auto Heme SS Monocytes/100 WBC (Bld) 6.2 % Invalid Interpretation Code 1.7 - 13.0 % AO Auto Heme SS Natriuretic peptide.B prohormone N-Terminal [Mass/Vol] 273 pg/mL Invalid Interpretation Code 0 - 125 pg/mL AO ADM SS Neutrophil, Absolute 5.60 103/mcL Invalid Interpretation Code 2.85 - 6.16 10^3/mcL AO Auto Heme SS Neutrophils/100 WBC (Bld) 75.8 % Invalid Interpretation Code 37.0 - 80.0 % AO Auto Heme SS Platelet mean volume (Bld) [Entitic vol] 8.9 fL Invalid Interpretation Code 7.4 - 10.4 fL AO Auto Heme SS Platelets (Bld) [#/Vol] 190 103/mcL Invalid Interpretation Code 130 - 400 10^3/mcL AO Auto Heme SS Potassium [Moles/Vol] 4.5 mmol/L Invalid Interpretation Code 3.5 - 5.1 mmol/L AO ADM SS Protein [Mass/Vol] 6.8 G/dL Invalid Interpretation Code 6.4 - 8.2 G/dL AO ADM SS RBC (Bld) [#/Vol] 4.71 106/mcL Invalid Interpretation Code 4.20 - 5.40 10^6/mcL AO Auto Heme SS Sodium [Moles/Vol] 142 mmol/L Invalid Interpretation Code 136 - 145 mmol/L AO ADM SS Urea nitrogen [Mass/Vol] 10 mg/dL Invalid Interpretation Code 7 - 18 mg/dL AO ADM SS Urea nitrogen/Creatinine [Mass ratio] 11 ratio Invalid Interpretation Code 7 - 27 ratio AO ADM SS WBC (Bld) [#/Vol] 7.40 103/mcL Invalid Interpretation Code 4.60 - 10.80 10^3/mcL AO Auto Heme SS LABORATORYOrdered By: SYSTEM SYSTEM on 07-19-2021 GFR 74 ml/min/1.73sqm Invalid Interpretation Code AO Chemistry S GFR Non- 61 ml/min/1.73sqm Inval id Interpretation Code AO Chemistry S LABORATORYOrdered By: Favian Contreras on 06-19-2021 Albumin BCP dye [Mass/Vol] 3.8 G/dL Invalid Interpretation Code 3.4 - 4.8 G/dL AO ADM SS Albumin/Globulin [Mass ratio] 1.2 {ratio} Invalid Interpretation Code 1.1 - 2.5 ratio AO ADM SS ALP [Catalytic activity/Vol] 84 U/L Invalid Interpretation Code 40 - 135 U/L AO ADM SS ALT With P-5'-P [Catalytic activity/Vol] 14 U/L Invalid Interpretation Code 14 - 59 U/L AO ADM SS AST With P-5'-P [Catalytic activity/Vol] 14 U/L Invalid Interpretation Code 10 - 40 U/L AO ADM SS Bilirubin [Mass/Vol] 0.3 mg/dL Invalid Interpretation Code 0.2 - 1.0 mg/dL AO ADM SS Calcium [Mass/Vol] 8.9 mg/dL Invalid Interpretation Code 8.4 - 10.2 mg/dL AO ADM SS Chloride [Moles/Vol] 101 mmol/L Invalid Interpretation Code 98 - 107 mmol/L AO ADM SS Cholesterol [Mass/Vol] 174 mg/dL Invalid Interpretation Code 0 - 200 mg/dL AO ADM SS Cholesterol in HDL [Mass/Vol] 42 mg/dL Invalid Interpretation Code 40 - 60 mg/dL AO ADM SS Cholesterol in LDL [Mass/Vol] 111 mg/dL Invalid Interpretation Code 0 - 130 mg/dL AO ADM SS CO2 [Moles/Vol] 29 mmol/L Invalid Interpretation Code 23 - 31 mmol/L AO ADM SS Creatinine [Mass/Vol] 0.94 mg/dL Invalid Interpretation Code 0.55 - 1.02 mg/dL AO ADM SS Electrolyte Balance 9.0 mEq/L Invalid Interpretation Code AO ADM SS Globulin 3.2 G/dL Invalid Interpretation Code AO ADM SS Glucose [Mass/Vol] 121 mg/dL Invalid Interpretation Code 83 - 110 mg/dL AO ADM SS Potassium [Moles/Vol] 4.0 mmol/L Invalid Interpretation Code 3.5 - 5.1 mmol/L AO ADM SS Protein [Mass/Vol] 7.0 G/dL Invalid Interpretation Code 6.4 - 8.2 G/dL AO ADM SS Sodium [Moles/Vol] 139 mmol/L Invalid Interpretation Code 136 - 145 mmol/L AO ADM SS Triglyceride [Mass/Vol] 104 mg/dL Invalid Interpretation Code 0 - 150 mg/dL AO ADM SS TSH Qn 2.40 m[IU]/L Invalid Interpretation Code 0.36 - 3.74 mcIU/mL AO ADM SS Urea nitrogen [Mass/Vol] 11 mg/dL Invalid Interpretation Code 7 - 18 mg/dL AO ADM SS Urea nitrogen/Creatinine [Mass ratio] 12 ratio Invalid Interpretation Code 7 - 27 ratio AO ADM SS LABORATORYOrdered By: SYSTEM SYSTEM on 06-19-2021 GFR 71 ml/min/1.73sqm Invalid Interpretation Code AO Chemistry S GFR Non- 59 ml/min/1.73sqm Inval id Interpretation Code AO Chemistry S LABORATORYOrdered By: Donte Farris on 06-19-2021 HbA1c (Bld) [Mass fraction] 6.0 % Invalid Interpretation Code 4.3 - 6.4 % AO ADM SS Vital Signs Date Time Vital Sign Value Performing Clinician Facility 09-16-2022 04:10-0500 Diastolic blood pressure 89 mm[Hg] [facility] 09-16-2022 04:10-0500 Heart rate 83 /min [facility] 09-16-2022 04:10-0500 Respiratory rate 16 /min [facility] 09-16-2022 04:10-0500 SaO2% (BldA) [Mass fraction] 99 % [facility] 09-16-2022 04:10-0500 Systolic blood pressure 154 mm[Hg] [facility] 09-15-2022 23:18-0500 Body height 162.56 cm [facility] 09-15-2022 23:18-0500 Body mass index (BMI) [Ratio] 30.5 kg/m2 [facility] 09-15-2022 23:18-0500 Body temperature 97 [degF] [facility] 09-15-2022 23:18-0500 Body weight 80.73 kg [facility] 01-22-2022 15:45-0400 Body mass index (BMI) [Ratio] 28.6 kg/m2 Dr. Mathieu Roland Work Phone: [facility] Work Phone: 01-22-2022 15:45-0400 Body temperature 97.9 [degF] Dr. Mathieu Roland Work Phone: [facility] Work Phone: 01-22-2022 15:45-0400 Diastolic blood pressure 62 mm[Hg] Dr. Mathieu Roland Work Phone: [facility] Work Phone: 01-22-2022 15:45-0400 Heart rate 77 /min Dr. Mathieu Roland Work Phone: [facility] Work Phone: 01-22-2022 15:45-0400 Systolic blood pressure 134 mm[Hg] Dr. Mathieu Roland Work Phone: [facility] Work Phone: 01-18-2022 15:05-0400 Body temperature 98.1 [degF] Dr. Mathieu Roland Work Phone: [facility] Work Phone: 01-18-2022 15:05-0400 Diastolic blood pressure 67 mm[Hg] Dr. Mathieu Roland Work Phone: [facility] Work Phone: 01-18-2022 15:05-0400 Heart rate 99 /min Dr. Mathieu Roland Work Phone: [facility] Work Phone: 01-18-2022 15:05-0400 Respiratory rate 18 /min Dr. Mathieu Roland Work Phone: [facility] Work Phone: 01-18-2022 15:05-0400 SaO2% (BldA) [Mass fraction] 96 % Dr. Mathieu Roland Work Phone: [facility] Work Phone: 01-18-2022 15:05-0400 Systolic blood pressure 126 mm[Hg] Dr. Mathieu Roland Work Phone: [facility] Work Phone: 01-16-2022 13:09-0400 Body height [address] Mathieu Roland Work Phone: [facility] Work Phone: 01-16-2022 13:09-0400 Body weight 89.[address] Mathieu Roland Work Phone: [facility] Work Phone: 01-16-2022 10:26-0400 Body mass index (BMI) [Ratio] 32.9 kg/m2 Dr. Mathieu Roland Work Phone: [facility] Work Phone: 01-14-2022 22:07-0400 Body temperature 98.6 [degF] Dr. Mathieu Roland Work Phone: [facility] Work Phone: 01-14-2022 22:07-0400 Diastolic blood pressure 67 mm[Hg] Dr. Mathieu Roland Work Phone: [facility] Work Phone: 01-14-2022 22:07-0400 Heart rate 71 /min Dr. Mathieu Roland Work Phone: [facility] Work Phone: 01-14-2022 22:07-0400 Respiratory rate 17 /min Dr. Mathieu Roland Work Phone: [facility] Work Phone: 01-14-2022 22:07-0400 SaO2% (BldA) [Mass fraction] 96 % Dr. Mathieu Roland Work Phone: [facility] Work Phone: 01-14-2022 22:07-0400 Systolic blood pressure 120 mm[Hg] Dr. Mathieu Roland Work Phone: [facility] Work Phone: 01-14-2022 17:40-0400 Body height 165.[address] Mathieu Roland Work Phone: [facility] Work Phone: 01-14-2022 17:40-0400 Body mass index (BMI) [Ratio] 29.1 kg/m2 Dr. Mathieu Roland Work Phone: [facility] Work Phone: 01-14-2022 17:40-0400 Body weight 79.[address] Mathieu Roland Work Phone: [facility] Work Phone: 01-14-2022 16:59-0400 Body temperature 99.14 [degF] [facility] [employer] [facility] 01-14-2022 16:59-0400 Diastolic blood pressure 63 mm[Hg] [facility] [employer] [facility] 01-14-2022 16:59-0400 Heart rate 71 /min [facility] [employer] [facility] 01-14-2022 16:59-0400 Respiratory rate 16 /min IVELISSE KAUR DO [facility] 01-14-2022 16:59-0400 Systolic blood pressure 99 mm[Hg] IVELISSE KAUR DO [facility] 01-08-2022 15:46-0400 Body mass index (BMI) [Ratio] 28.6 kg/m2 Dr. Mathieu Roland Work Phone: [facility] Work Phone: 01-08-2022 15:46-0400 Body temperature 97.2 [degF] Dr. Mathieu Roland Work Phone: [facility] Work Phone: 12-29-2021 00:21-0400 Body weight 78.[address] Mathieu Roland Work Phone: [facility] Work Phone: 12-29-2021 00:21-0400 Diastolic blood pressure 70 mm[Hg] Dr. Mathieu Roland Work Phone: [facility] Work Phone: 12-29-2021 00:21-0400 Heart rate 68 /min Dr. Mathieu Roland Work Phone: [facility] Work Phone: 12-29-2021 00:21-0400 Respiratory rate 18 /min Dr. Mathieu Roland Work Phone: [facility] Work Phone: 12-29-2021 00:21-0400 Systolic blood pressure 172 mm[Hg] Dr. Mathieu Roland Work Phone: [facility] Work Phone: 12-26-2021 15:06-0400 Body mass index (BMI) [Ratio] 28.6 kg/m2 Dr. Mathieu Roland Work Phone: [facility] Work Phone: 12-26-2021 15:06-0400 Body temperature 97.8 [degF] Dr. Mathieu Roland Work Phone: [facility] Work Phone: 12-26-2021 15:06-0400 Diastolic blood pressure 70 mm[Hg] Dr. Mathieu Roland Work Phone: [facility] Work Phone: 12-26-2021 15:06-0400 Heart rate 68 /min Dr. Mathieu Roland Work Phone: [facility] Work Phone: 12-26-2021 15:06-0400 Systolic blood pressure 172 mm[Hg] Dr. Mathieu Roland Work Phone: [facility] Work Phone: 12-19-2021 14:48-0400 Respiratory rate 18 /min Dr. Mathieu Roland Work Phone: [facility] Work Phone: 11-29-2021 00:20-0400 Body weight 78.[address] Mathieu Roland Work Phone: [facility] Work Phone: 11-28-2021 15:18-0400 Body mass index (BMI) [Ratio] 28.6 kg/m2 Dr. Mathieu Roland Work Phone: [facility] Work Phone: 11-28-2021 15:18-0400 Body temperature 98 [degF] Dr. Mathieu Roland Work Phone: [facility] Work Phone: 11-28-2021 15:18-0400 Diastolic blood pressure 69 mm[Hg] Dr. Mathieu Roland Work Phone: [facility] Work Phone: 11-28-2021 15:18-0400 Heart rate 92 /min Dr. Mathieu Roland Work Phone: [facility] Work Phone: 11-28-2021 15:18-0400 Respiratory rate 18 /min Dr. Mathieu Roland Work Phone: [facility] Work Phone: 11-28-2021 15:18-0400 Systolic blood pressure 144 mm[Hg] Dr. Mathieu Roland Work Phone: [facility] Work Phone: 11-14-2021 15:05-0400 Body mass index (BMI) [Ratio] 28.6 kg/m2 Dr. Mathieu Roland Work Phone: [facility] Work Phone: 11-14-2021 15:05-0400 Body temperature 97.9 [degF] Dr. Mathieu Roland Work Phone: [facility] Work Phone: 11-14-2021 15:05-0400 Diastolic blood pressure 56 mm[Hg] Dr. Mathieu Roland Work Phone: [facility] Work Phone: 11-14-2021 15:05-0400 Heart rate 79 /min Dr. Mathieu Roland Work Phone: [facility] Work Phone: 11-14-2021 15:05-0400 Systolic blood pressure 103 mm[Hg] Dr. Mathieu Roland Work Phone: [facility] Work Phone: 11-07-2021 13:35-0500 Respiratory rate 16 /min Dr. Mathieu Roland Work Phone: [facility] Work Phone: 10-28-2021 23:19-0500 Body weight 78.[address] Mathieu Roland Work Phone: [facility] Work Phone: 10-24-2021 13:48-0500 Body mass index (BMI) [Ratio] 28.6 kg/m2 Dr. Mathieu Roland Work Phone: [facility] Work Phone: 10-24-2021 13:48-0500 Body temperature 96.8 [degF] Dr. Mathieu Roland Work Phone: [facility] Work Phone: 10-24-2021 13:48-0500 Diastolic blood pressure 76 mm[Hg] Dr. Mathieu Roland Work Phone: [facility] Work Phone: 10-24-2021 13:48-0500 Respiratory rate 16 /min Dr. Mathieu Roland Work Phone: [facility] Work Phone: 10-24-2021 13:48-0500 Systolic blood pressure 181 mm[Hg] Dr. Mathieu Roland Work Phone: [facility] Work Phone: 10-17-2021 13:31-0500 Heart rate 75 /min Dr. Mathieu Roland Work Phone: [facility] Work Phone: 09-30-2021 23:13-0500 Body weight 78.[address] Mathieu Roland Work Phone: [facility] Work Phone: 09-26-2021 13:01-0500 Body mass index (BMI) [Ratio] 28.6 kg/m2 Dr. Mathieu Roland Work Phone: [facility] Work Phone: 09-26-2021 13:01-0500 Body temperature 96.6 [degF] Dr. Mathieu Roland Work Phone: [facility] Work Phone: 09-26-2021 13:01-0500 Diastolic blood pressure 64 mm[Hg] Dr. Mathieu Roland Work Phone: [facility] Work Phone: 09-26-2021 13:01-0500 Heart rate 78 /min Dr. Mathieu Roland Work Phone: [facility] Work Phone: 09-26-2021 13:01-0500 Respiratory rate 16 /min Dr. Mathieu Roland Work Phone: [facility] Work Phone: 09-26-2021 13:01-0500 Systolic blood pressure 157 mm[Hg] Dr. Mathieu Roland Work Phone: [facility] Work Phone: 08-30-2021 23:06-0500 Body weight 78.[address] Mathieu Roland Work Phone: [facility] Work Phone: 08-15-2021 11:58-0500 Body mass index (BMI) [Ratio] 28.6 kg/m2 Dr. Mathieu Roland Work Phone: [facility] Work Phone: 08-15-2021 11:58-0500 Body temperature 98.7 [degF] Dr. Mathieu Roland Work Phone: [facility] Work Phone: 08-15-2021 11:58-0500 Diastolic blood pressure 72 mm[Hg] Dr. Mathieu Roland Work Phone: [facility] Work Phone: 08-15-2021 11:58-0500 Heart rate 79 /min Dr. Mathieu Roland Work Phone: [facility] Work Phone: 08-15-2021 11:58-0500 Respiratory rate 16 /min Dr. Mathieu Roland Work Phone: [facility] Work Phone: 08-15-2021 11:58-0500 Systolic blood pressure 176 mm[Hg] Dr. Mathieu Roland Work Phone: [facility] Work Phone: 08-08-2021 14:14-0500 Body height 165.[address] Mathieu Roland Work Phone: [facility] Work Phone: 08-08-2021 14:14-0500 Body weight 78.[address] Mathieu Roland Work Phone: [facility] Work Phone: Encounters Encounter Date Encounter Type Care Provider Facility Start: 02-28-2025 End: 02-28-2025 ambulatory MATHIEU ROLAND DO [facility] Start: 02-28-2025 End: 02-28-2025 Patient encounter procedure MATHIEU ROLAND DO [facility] Start: 02-23-2025 End: 02-23-[address] JAMESON GARCIA DO Facility[facility] Start: 02-23-2025 End: 02-23-[address] JAMESON GARCIA DO [facility] Start: 02-21-2025 End: 02-25-[address] JAMESON GARCIA DO [facility] Start: 02-21-2025 End: 02-25-[address] JAMESON GARCIA DO [facility] Start: 02-20-[address] JAMESON GARCIA DO Facili [facility] Start: 02-17-[address] JAMESON GARCIA DO Facili ty[facility] Start: 01-12-2025 ambulatory MATHIEU ROLAND DO Facil ity:[facility] Start: 01-09-2025 End: 01-09-2025 ambulatory MATHIEU ROLAND DO Facility[facility] Start: 01-09-2025 End: 01-09-2025 Patient encounter procedure MARQUISE LEHMAN MD [facility] Start: 10-12-2024 End: 10-12-2024 ambulatory MATHIEU ROLAND DO Facility[facility] Start: 10-12-2024 End: 10-12-2024 Patient encounter procedure MATHIEU ROLAND DO [facility] Start: 09-05-2024 End: 09-05-2024 ambulatory MARQUISE LEHMAN MD Facility[facility] Start: 09-05-2024 End: 09-05-2024 Patient encounter procedure MARQUISE LEHMAN MD [facility] Start: 08-29-2024 End: 08-29-2024 ambulatory MATHIEU ROLAND DO Facility[facility] Start: 08-29-2024 End: 08-29-2024 Patient encounter procedure MATHIEU ABBOTTY DO [facility] Start: 08-03-2024 End: 08-03-2024 ambulatory MATHIEU ROLAND DO Facility[facility] Start: 08-03-2024 End: 08-03-2024 Patient encounter procedure MATHIEU ABBOTTY DO [facility] Start: 02-29-2024 End: 02-29-2024 ambulatory MARQUISE LEHMAN MD Facility:[facility] Start: 02-29-2024 End: 02-29-2024 Patient encounter procedure MARQUISE LEHMAN MD [facility] Start: 10-20-2023 End: 10-20-2023 ambulatory MARQUISE LEHMAN MD Facility:[facility] Start: 10-20-2023 End: 10-20-2023 Patient encounter procedure MARQUISE LEHMAN MD [facility] Start: 08-22-2023 End: 08-22-2023 Emergency department patient visit Mathieu Roland Facility:[facility] Start: 08-20-2023 End: 08-20-2023 ambulatory MATHIEU ABBOTTY Facility:[facility] Start: 08-20-2023 End: 08-20-2023 Patient encounter procedure MATHIEU ROLAND DO [facility] Start: 06-23-2023 End: 06-23-2023 ambulatory MATHIEU ROLAND DO Facility:[facility] Start: 02-12-2023 End: 02-12-2023 Patient encounter procedure MARQUISE LEHMAN MD [facility] Start: 10-29-2022 End: 10-29-2022 Patient encounter procedure [facility] Specimen Start: 10-29-2022 End: 10-29-2022 ambulatory Edin Brayan [facility] Work Phone: Start: 10-23-[facility] Start: 09-25-2022 End: 09-25-2022 Patient encounter procedure MARQUISE LEHMAN MD [facility] Start: 09-16-2022 End: 09-16-2022 Emergency department patient visit Whitney Ott Facility:[facility] Start: 09-15-2022 End: 09-16-2022 Emergency department patient visit [facility] Start: 06-02-2022 End: 06-02-2022 Patient encounter procedure MATHIEU ROLAND DO [facility] Start: 04-28-2022 End: 04-28-2022 Patient encounter procedure MARQUISE LEHMAN MD [facility] Start: 03-05-2022 End: 03-05-2022 Patient encounter procedure MARQUISE LEHMAN MD [facility] Start: 01-22-2022 End: 01-28-[address] Math[facility] Start: 01-18-2022 Non-patient / Non-visit Dr. Mathieu Roland Work Phone: [facility] Start: 01-17-2022 Non-patient / Non-visit Dr. Mathieu Roland Work Phone: [facility] Start: 01-16-2022 Non-patient / Non-visit Dr. Mathieu Roland Work Phone: [facility] Start: 01-15-2022 Non-patient / Non-visit Dr. Mathieu Roland Work Phone: [facility] Start: 01-14-2022 End: 01-18-2022 Evaluation and management of inpatient Dr. Mathieu Roland Work Phone: [facility] Start: 01-14-2022 Non-patient / Non-visit Dr. Mathieu Roland Work Phone: [facility] Start: 01-14-2022 End: 01-14-2022 Emergency department patient visit IVELISSE KAUR DO [facility] Start: 01-13-[address] Leona Roland Work Phone: [facility] Start: 01-10-2022 End: 01-14-[address] DO [facility] Start: 12-26-2021 Non-patient / Non-visit Dr. Mathieu Roland Work Phone: [facility] Start: 12-26-2021 End: 12-28-[address] Mathieu Roland Work Phone: [facility] Start: 12-20-2021 End: 12-20-2021 Patient encounter procedure MATHIEU ROLAND DO [facility] Start: 12-19-2021 Non-patient / Non-visit Dr. Mathieu Roland Work Phone: [facility] Start: 12-12-2021 Non-patient / Non-visit Dr. Mathieu Roland Work Phone: [facility] Start: 11-28-2021 Non-patient / Non-visit Dr. Mathieu Roland Work Phone: [facility] Start: 11-28-2021 End: 11-28-[address] Mathieu Roland Work Phone: [facility] Start: 11-21-2021 Non-patient / Non-visit Dr. Mathieu Roland Work Phone: [facility] Start: 11-21-2021 End: 11-28-[address] Mathieu Roland Work Phone: [facility] Start: 11-14-2021 Non-patient / Non-visit Dr. Mathieu Roland Work Phone: [facility] Start: 11-14-[address] Leona Roland Work Phone: [facility] Start: 11-12-2021 End: 11-12-[address] Mathieu Roland Work Phone: [facility] Start: 11-07-2021 Non-patient / Non-visit Dr. Mathieu Roland Work Phone: [facility] Start: 10-31-2021 Non-patient / Non-visit Dr. Mathieu Roland Work Phone: [facility] Start: 10-24-2021 Non-patient / Non-visit Dr. Mathieu Roland Work Phone: [facility] Start: 10-24-2021 End: 10-28-[address] Mathieu Roland Work Phone: [facility] Start: 10-17-2021 Non-patient / Non-visit Dr. Mathieu Roland Work Phone: [facility] Start: 10-16-2021 End: 10-16-2021 Patient encounter procedure MARQUISE LEHMAN MD [facility] Start: 10-15-2021 End: 10-15-2021 Patient encounter procedure MARQUISE LEHMAN MD [facility] Start: 10-10-2021 Non-patient / Non-visit Dr. Mathieu Roland Work Phone: [facility] Start: 09-26-2021 Non-patient / Non-visit Dr. Mathieu Roland Work Phone: [facility] Start: 09-26-2021 End: 09-30-[address] Mathieu Roland Work Phone: [facility] Start: 09-19-2021 Non-patient / Non-visit Dr. Mathieu Roland Work Phone: [facility] Start: 09-12-2021 Non-patient / Non-visit Dr. Mathieu Roland Work Phone: [facility] Start: 09-05-2021 Non-patient / Non-visit Dr. Mathieu Roland Work Phone: [facility] Start: 08-15-2021 Non-patient / Non-visit Dr. Mathieu Roland Work Phone: [facility] Start: 08-15-2021 End: 08-30-[address] Mathieu Roland Work Phone: [facility] Start: 08-13-2021 End: 08-13-[address] JAMESON GARCIA DO [facility] Start: 08-08-2021 Non-patient / Non-visit Dr. Mathieu Roland Work Phone: [facility] Start: 07-19-2021 End: 07-19-[address] JAMESON GARCIA DO [facility] Start: 06-19-2021 End: 06-19-2021 Patient encounter procedure MARQUISE LEHMAN MD [facility] Procedures Date Procedure Procedure Detail Performing Clinician Start: 09-16-2022 CT of abdomen and pe lvis without contrast Start: 01-16-[address] Mathieu Roland Work Phone: Start: 01-16-2022 Investigation of transfusion reaction Dr. Mathieu Roland Work Phone: Start: 01-16-2022 Microbial culture, routine Dr. Mathieu Roland Work Phone: Start: 01-16-[address] Muriel Roland Work Phone: Start: 01-16-2022 Fluoroscopic guidance Mehreen Roland Work Phone: Start: 01-16-2022 Plain X-ray of toe Dr. Mathieu Roland Work Phone: Start: 01-15-2022 MRI of lower extremity Dr. Mathieu Roland Work Phone: Start: 01-14-2022 Bacteria identified in Blood by Culture Dr. Mathieu Roland Work Phone: Start: 01-13-2022 X-ray of both feet Dr. Mathieu Roland Work Phone: Start: 12-26-[address] Mathieu Roland Work Phone: Start: 12-26-2021 Investigation of transfusion reaction Dr. Mathieu Roland Work Phone: Start: 12-26-2021 Microbial culture, routine Dr. Mathieu Roland Work Phone: Start: 11-12-2021 X-ray of both feet Dr. Mathieu Roland Work Phone: Start: 11-07-[address] Mathieu Roland Work Phone: Start: 11-07-2021 Investigation of transfusion reaction Dr. Mathieu Roland Work Phone: Start: 11-07-2021 Microbial culture, routine Dr. Mathieu Roland Work Phone: Start: 08-08-[address] Mathieu Roland Work Phone: Start: 08-08-2021 Investigation of transfusion reaction Dr. Mathieu Roland Work Phone: Start: 08-08-2021 Microbial culture, routine Dr. Mathieu Roland Work Phone: Cervical (qualifier value) Muriel LEHMAN MD Comment on above: FUSION C4,5,6 IN 199 6 section MARQUISE MALDONADO MD Comment on above: X 2 Cholecystectomy MARQUISE URIBE MD Entire gallbladder ( body structure) MARQUISE LEHMAN MD Comment on above: OPEN CHOLY 1078 Extraction of cataract SHAUNA LEHMAN MD Comment on above: bilateral Hysterectomy MARQUISE VALDOVINOS MD Comment on above: 1981 Investigation of transfusion reaction Laser assisted in si tu keratomileusis MARQUISE LEHMAN MD Comment on above: OU Microbial culture, routine Toe structure (body structure) MARQUISE LEHMAN MD Comment on above: PARTIAL 4TH TOE RMOV ED LEFT FOOT 2011 Tonsillectomy and adenoidectomy MARQUISE LEHMAN MD Umbilical hernia (disorder) MARQUISE LEHMAN MD Comment on above: REPAIR 2013 Plan of Treatment Date Care Activity Detail Author Start: 01-16-2022 Fungal Culture Fungal Culture [facility] Work Phone: Start: 01-16-2022 Fungal Smear Fungal Smear [facility] Work Phone: Start: 01-14-2022 Bacteria identified in Blood by Culture Blood Culture [facility] Work Phone: Start: 01-14-2022 Microscopic observat ion [Identifier] in Unspecified specimen by Gram stain Gram Stain [facility] Work Phone: Start: 01-14-2022 Wound Culture Wound Culture [facility] Work Phone: Start: 12-26-2021 Anaerobic Culture Anaerobic Culture [facility] Work Phone: Start: 12-26-2021 Microbial culture, routine Wound Culture [facility] Work Phone: Patient Education ED Gastroenter itis, Viral (Adult) [facility] Work Phone: Patient referral [facility] Work Phone: Immunizations Immunization Date Immunization Notes Care Provider Fa [facility] 08-03-2024 influenza virus vaccine, unspecified formulation DR JAMESON GARCIA DO [facility] 08-03-2024 RSV vaccine preF3, recombinant DR JAMESON GARCIA DO [facility] 08-03-2024 SARS-CoV-2 (COVID-19 ) [id number] DR JAMESON GARCIA DO [facility] 06-25-2023 SARS-CoV-2 (COVID-19 ) [id number] MATHIEU ROLAND DO [facility] 04-22-2023 influenza virus vaccine, unspecified formulation MATHIEU ROLAND DO [facility] 04-22-2023 pneumococcal 20-sandro nt conjugate vaccine MATHIEU ROLAND DO [facility] 06-24-2022 influenza virus vaccine, unspecified formulation MARQUISE LEHMAN MD [facility] 12-17-2021 Covid (Moderna) Dr. Mathieu Roland Work Phone: [facility] 07-31-2021 SARS-CoV-2 (COVID-19 ) [id number] vaccine MARQUISE LEHMAN MD [facility] 06-19-2021 influenza virus vaccine, unspecified formulation MARQUISE LEHMAN MD [facility] 11-09-2020 COVID-19, mRNA, LNP- S, PF, 100 mcg/ 0.5 mL dose; Translations: [Moderna COVID-19 Vaccine] MARQUISE LEHMAN MD [facility] 10-12-2020 COVID-19, mRNA, LNP- S, PF, 100 mcg/ 0.5 mL dose; Translations: [Moderna COVID-19 Vaccine] MARQUISE LEHMAN MD [facility] 05-16-2020 influenza virus vaccine, unspecified formulation MARQUISE LEHMAN MD [facility] 06-04-2019 influenza virus vaccine, unspecified formulation MARQUISE LEHMAN MD [facility] 01-12-2019 zoster vaccine recombinant MARQUISE LEHMAN MD [facility] 12-24-2018 pneumococcal polysaccharide vaccine, 23 valent MARQUISE LEHMAN MD [facility] 06-07-2018 influenza virus vaccine, unspecified formulation MARQUISE LEHMAN MD [facility] 03-23-2018 tetanus toxoid, redu jo diphtheria toxoid, and acellular pertussis vaccine, adsorbed MARQUISE LEHMAN MD [facility] 05-20-2017 influenza virus vaccine, unspecified formulation MARQUISE LEHMAN MD [facility] 05-20-2017 pneumococcal conjuga te vaccine, 13 heathent MARQUISE LEHMAN MD [facility] 05-01-2017 influenza virus vaccine, unspecified formulation MARQUISE LEHMAN MD [facility] 05-01-2017 pneumococcal conjuga te vaccine, 13 tyler LEHMAN MD [facility] 04-30-2017 pneumococcal conjuga te vaccine, 13 tyler LEHMAN MD [facility] 06-04-2016 influenza virus vaccine, unspecified formulation MARQUISE LEHMAN MD [facility] 08-31-2014 influenza virus vaccine, unspecified formulation MARQUISE LEHMAN MD [facility] Payers Date Payer Category Payer Private Health Insurance [facility] [id number] 2024 Medicare [id number] 2022 [facility] [id number] 2016 Unknown [id number] 1948 Unknown [id number] 2.16.8 [id number] 1948 Unknown [id number] 2.16.8 40.1.523200.3.579.2.627 1948 Unknown [id number] 2.16.8 40.1.504217.3.579.2.62 1948 Unknown [id number] 2.16.8 40.1.924980.3.579.2.627 1948 Unknown [id number] 2.16.8 40.1.874447.3.579.2.627 1948 Unknown [id number] 2.16. 840.1.963127.3.579.2.627 1948 Unknown [id number] 2.16. 840.1.231670.3.579.2.627 1948 Unknown [id number] 2.16. 840.1.380135.3.579.2.627 1948 Unknown [id number] 2.16. 840.1.305931.3.579.2.627 1948 Unknown [id number] 2.16. 840.1.763065.3.579.2.627 1948 Unknown [id number] 2.16.8 40.1.439822.3.579.2.627 1948 Unknown [id number] 2.16.8 40.1.836867.3.579.2.627 1948 Unknown [id number] 2.16.8 40.1.351743.3.579.2.627 1948 Unknown [id number] 2.16.8 40.1.942027.3.579.2.627 1948 Unknown [id number] 2.16.8 40.1.903963.3.579.2.627 1948 Unknown [id number] 2.16.8 40.1.055221.3.579.2.627 1948 Unknown [id number] 2.16.8 40.1.739824.3.579.2.627 Unknown [id number] 2.16.8 40.1.875794.3.579.2.462 Unknown [id number] 2.16.8 40.1.597154.3.579.2.462 Unknown [id number] 2.16.8 40.1.985165.3.579.2.462 Unknown [id number] 2.16.8 40.1.674307.3.579.2.462 Social History Date Type Detail Facility Start: 09-12-2020 End: 10-20-2024 Never smoked tobacco (finding) [facility] Start: 1950 Sex Assigned At Female [facility] Start: 08-08-2021 End: 09-15-2022 Tobacco smoking status MOIS Unknown if ever smoked [facility] Start: 07-12-2020 None [facility] Start: 07-16-2020 Spouse/ Signif icant Other [facility] Start: 07-16-2020 Non-smoker;Secondhand W [facility] Sexual Orientation [facility] Start: 02-23-2019 Sex Female (finding) [facility] Functional Status Date Assessment Result Facility 01-18-2022 Functional status Ambulates [facility] Work Phone: Mental Status Date Assessment Result Facility 01-18-2022 Cognitive function Level Of Consciousness Drowsy [facility] Work Phone: 01-17-2022 Cognitive function Voice/Name [facility] Work Phone: Clinical Notes 06-02-2022 to 08-29-2024 Note Date & Type Note Facility 08-29-2024 Note Exam Date Time Procedure Performing Provider Status 08/29/24 2:[address] Head or Brain w/o Contrast KAZ GUSTAFSON MD; Auth (Verified) [id number] ORIGINAL HISTORY: Dizziness, tinnitus, vertigo COMPARISON: No TECHNIQUE: Routine noncontrast head CT, with sagittal and coronal reconstructions. This exam was performed according to our departmental dose optimization program, and includes the following measures where applicable: automated exposure control, adjustment of the mAs and/or kVp according to patient size and/or exam, and an iterative reconstruction algorithm. FINDINGS: The ventricles and sulci are mildly enlarged. There are no abnormal intra or extra-axial fluid collections. Becerra-white matter differentiation is maintained. There are atherosclerotic changes to the anterior and posterior circulation. The calvaria and the bones of the base of the skull are intact. IMPRESSION: Mild volume loss and small vessel ischemic disease. Interpreted by: Kaz Gustafson MD Preliminary Report By: Kaz uGstafson MD Electronically signed By Kaz Gustafson MD Dictated Date: 08/29/2024 2:34:30 PM Prelim Date: 08/29/2024 2:35:35 PM Sign Date: 08/29/2024 2:35:35 PM Ordering Provider: MATHIEU [facility]07-01-2024 Note ORIGINAL EXAMINATION: ULTRASOUND OF THE THYROID WITH COLOR DOPPLER FLOW EVALUATION02/29/2024 12:51 pm Ultrasound Thyroid COMPARISON: None HISTORY: ORDERING SYSTEM PROVIDED HISTORY: Reason for Exam: thyroid feels larger / small nodules in past, FINDINGS: Size right thyroid lobe: 4.5 x 1.5 x 1.3 cm Size left thyroid lobe: 4.4 x 1.5 x 1.5 cm Size isthmus: 0.3 cm Texture: Heterogeneous Estimated total number of nodules greater than or equal to 1 cm: 3 Nodule#: # 1: Maximum size: 1.3 cm . All dimensions: 1.3 x 1.0 x 0.2 cm Location: Left Lower Composition: mixed cystic and solid: 1 point Echogenicity: isoechoic: 1 point Shape: wider than tall: 0 points Margins: ill-defined: 0 points Echogenic foci: punctate echogenic foci: 3 points ACR Total Points: 5; ACR TI-RADS risk category: TR4 - moderately suspicious nodule. Nodule #: # 2: Maximum size: 1.4 cm . Size: 0.4 x 0.6 cm Location: Left Lower Composition: mixed cystic and solid: 1 point Echogenicity: hypoechoic: 2 points Shape: wider than tall: 0 points Margins: smooth: 0 points Echogenic foci: none: 0 points ACR Total Points: 3; ACR TI-RADS risk category: TR3 - mildly suspicious nodule. There is a spongiform TR 1 lesion in the midpole right thyroid lobe measuring 1.1 x 0.9 x 0.8 cm. IMPRESSION: 1. Nodule 1: ACR TI-RADS date CATEGORY 4. Follow-up in 1 year. 2. Nodule 2: ACR TI-RADS date CATEGORY 3. Follow-up in 1 year. . Recommend: 2. Nodule 2: ACR TI-RADS 2017 Category . Recommend: ACR TI-RADS 2017 Recommendations: TR1(0 points) : No FNA or follow up TR2 (2 points) : No FNA or follow up TR3 (3 points) : FNA if >/= 2.5 cm, follow up if 1.5 - 2.4 cm in 1, 3, and 5 years TR4 (4-6 points) : FNA if >/= 1.5 cm, follow up if 1.0 - 1.4 cm in 1, 2, 3, and 5 years TR5 (>/= 7 points) : FNA if >/= 1.0 cm, follow up if 0.5 - 0.9 cm every year for 5 years *ACR TI-RADS recommends that no more than two nodules with the highest ACR TI-RADS total point should be biopsied and no more than four nodules should be followed. Interpreted by: Luiz Cabrera DO Preliminary Report By: Luiz Cabrera DO Electronically signed By Luiz Cabrera DO Dictated Date: 02/29/2024 1:56:44 PM Prelim Date: 02/29/2024 2:06:10 PM Sign Date: 02/29/2024 2:06:10 PM Ordering Provider: [place] [address]25-03-2022 Note ORIGINAL EXAMINATION: BONE DENSITOMETRY 06/02/2022 2:46 pm TECHNIQUE: A bone density dual x-ray absorptiometry (DEXA) scan was performed of the lumbar spine and left hip. COMPARISON: January 14, 2019 DEXA. HISTORY: ORDERING SYSTEM PROVIDED HISTORY: Reason for Exam: Osteoporosis Screening FINDINGS: T Score Left Femoral Neck: 0.1 Left Femoral Neck: 0.857 (g/cm2) T Score Left Hip: -0.4 Left Hip: 0.895 (g/cm2) T Score Lumbar Spine: 1.6 Lumbar Spine: 1.218 (g/cmd2) *By the World Health Organization standards: Osteopenia is present when the bone mineral density is greater than 1 standard deviation (SD) but less than 2.5 SDs below a young normal sex matched population. Osteoporosis is present when the bone mineral density is equal to or greater than 2.5 SDs below a young normal sex matched population. BMD Change from previous Hip: -10.9% BMD Change from previous Lumbar Spine: -0.1% IMPRESSION: Normal bone density by WHO criteria. *By the World Health Organization criteria: (Comparing with young normal sex matched population) - Normal: T-score at or above -1 SD (standard deviation) - Osteopenia: T-score between -1 and -2.5 SD - Osteoporosis: T-score at or below -2.5 SD Interpreted by: Eder Cerna DO Preliminary Report By: Eder Cerna DO Electronically signed By Eder Cerna DO Dictated Date: 06/02/2022 4:11:40 PM Prelim Date: 06/02/2022 4:12:45 PM Sign Date: 06/02/2022 4:12:45 PM Ordering Provider: MATHIEU ROLAND [facility]10-03-2022 Note ORIGINAL EXAMINATION: BONE DENSITOMETRY 06/02/2022 2:46 pm TECHNIQUE: A bone density dual x-ray absorptiometry (DEXA) scan was performed of the lumbar spine and left hip. COMPARISON: January 14, 2019 DEXA. HISTORY: ORDERING SYSTEM PROVIDED HISTORY: Reason for Exam: Osteoporosis Screening FINDINGS: T Score Left Femoral Neck: 0.1 Left Femoral Neck: 0.857 (g/cm2) T Score Left Hip: -0.4 Left Hip: 0.895 (g/cm2) T Score Lumbar Spine: 1.6 Lumbar Spine: 1.218 (g/cmd2) *By the World Health Organization standards: Osteopenia is present when the bone mineral density is greater than 1 standard deviation (SD) but less than 2.5 SDs below a young normal sex matched population. Osteoporosis is present when the bone mineral density is equal to or greater than 2.5 SDs below a young normal sex matched population. BMD Change from previous Hip: -10.9% BMD Change from previous Lumbar Spine: -0.1% IMPRESSION: Normal bone density by WHO criteria. *By the World Health Organization criteria: (Comparing with young normal sex matched population) - Normal: T-score at or above -1 SD (standard deviation) - Osteopenia: T-score between -1 and -2.5 SD - Osteoporosis: T-score at or below -2.5 SD Interpreted by: Eder Cerna DO Preliminary Report By: Eder Cerna DO Electronically signed By Eder Cerna DO Dictated Date: 06/02/2022 4:11:40 PM Prelim Date: 06/02/2022 4:12:45 PM Sign Date: 06/02/2022 4:12:45 PM [facility] App[facility]ments Appointment Date:06/25/2021 04:00:00 PM Scheduled Provider:MARQUISE LEHMAN MD Location:[facility] Appointment Type:ENDO OV Appointment Date:09/17/2021 03:30:00 PM Scheduled Provider:MATHIEU ROLAND DO Location:[facility] Appointment Type:PC OV Future Scheduled Tests Radiology* NM Myocardial Spect Rest/Stress 06/22/20 [facility] Evaluation + Plan note Future Appointments Appointment Date:08/15/2021 03:30:00 PM Scheduled Provider:MATHIEU ROLAND DO Location:[facility] Appointment Type:PC OV Appointment Date:09/17/2021 03:30:00 PM Scheduled Provider:MATHIEU ROLAND DO Location:[facility] Appointment Type:PC OV Appointment Date:10/22/2021 03:30:00 PM Scheduled Provider:MARQUISE LEHMAN MD Location:[facility] Appointment Type:ENDO OV Future Scheduled Tests Laboratory* Thyroid Stimulating Hormone 10/26/21 * A1C Hemoglobin 10/26/21 * Microalbumin Level Urine 10/26/21 * Vitamin D Level 10/26/21 * Complete Metabolic Panel 10/26/21 Radiology* XR Foot Minimum 3 Views Left 07/19/21 [facility] Evaluation + Plan note Future Appointments Appointment Date:10/22/2021 03:30:00 PM Scheduled Provider:MARQUISE LEHMAN MD Location[facility] Appointment Type:ENDO OV Appointment Date:12/17/2021 04:00:00 PM Scheduled Provider:MATHIEU ROLAND DO Location:[facility] Appointment Type:PC OV Controlled Medication Future Scheduled Tests Laboratory* COVID-19 Only (AO) 08/29/21 * Microalbumin Level Urine 10/26/21 Radiology* XR Foot Minimum 3 Views Left 07/19/21 [facility] Evaluation + Plan note Future Appointments Appointment Date:10/22/2021 03:30:00 PM Scheduled Provider:MARQUISE LEHMAN MD Location[facility] Appointment Type:ENDO OV Appointment Date:12/17/2021 04:00:00 PM Scheduled Provider:MATHIEU ROLAND DO Location:[facility] Appointment Type:PC OV Controlled Medication Future Scheduled Tests Laboratory* COVID-19 Only (AO) 08/29/21 Radiology* XR Foot Minimum 3 Views Left 07/19/21 [facility] Evaluation + Plan note Future Appointments Appointment Date:01/14/2022 04:00:00 PM Scheduled Provider:MATHIEU ROLAND DO Location:[facility] Appointment Type:PC Wellness Medicare Appointment Date:01/23/2022 03:15:00 PM Scheduled Provider:MARQUISE LEHMAN MD Location:[facility] Appointment Type:ENDO OV Appointment Date:03/26/2022 04:00:00 PM Scheduled Provider:MATHIEU ROLAND DO Location:[facility] Appointment Type:PC OV Future Scheduled Tests Laboratory* Thyroid Stimulating Hormone 01/19/22 * Free T4 01/19/22 * A1C Hemoglobin 01/19/22 * Lipid Profile 01/19/22 * Microalbumin Level Urine 01/19/22 * Vitamin D Level 01/19/22 * Complete Metabolic Panel 01/19/22 * Complete Metabolic Panel 12/11/21 * Complete Metabolic Panel 11/21/21 * COVID-19 Only (AO) 08/29/21 Radiology* XR Foot Minimum 3 Views Left 07/19/21 [facility] Evaluation + Plan note Future Appointments Appointment Date:01/23/2022 03:15:00 PM Scheduled Provider:MARQUISE LEHMAN MD Location:[facility] Appointment Type:ENDO OV Appointment Date:03/26/2022 04:00:00 PM Scheduled Provider:MATHIEU ROLAND DO Location:[facility] Appointment Type:PC OV Future Scheduled Tests Laboratory* Thyroid Stimulating Hormone 01/19/22 * Free T4 01/19/22 * A1C Hemoglobin 01/19/22 * Lipid Profile 01/19/22 * Microalbumin Level Urine 01/19/22 * Vitamin D Level 01/19/22 * Complete Metabolic Panel 01/19/22 * Complete Metabolic Panel 12/11/21 * Complete Metabolic Panel 11/21/21 * COVID-19 Only (AO) 08/29/21 Radiology* XR Foot Minimum 3 Views Left 07/19/21 [facility] Evaluation + Plan note Future Appointments Appointment Date:03/06/2022 02:45:00 PM Scheduled Provider:MARQUISE LEHMAN MD Location:[facility] Appointment Type:ENDO OV Appointment Date:04/16/2022 02:00:00 PM Scheduled Provider:MATHIEU ROLAND DO Location:[facility] Appointment Type:PC OV Future Scheduled Tests Laboratory* Complete Metabolic Panel 12/11/21 * Complete Metabolic Panel 11/21/21 * COVID-19 Only (AO) 08/29/21 Radiology* XR Foot Minimum 3 Views Left 07/19/21 [facility] Evaluation + Plan note Future Appointments Appointment Date:06/17/2022 02:30:00 PM Scheduled Provider:MATHIEU ROLAND DO Location:[facility] Appointment Type:PC OV Controlled Medication Appointment Date:07/10/2022 02:45:00 PM Scheduled Provider:MARQUISE LEHMAN MD Location:[facility] Appointment Type:ENDO OV Future Scheduled Tests Laboratory* Thyroid Stimulating Hormone 07/07/22 * A1C Hemoglobin 07/07/22 * Lipid Profile 07/07/22 * Hepatitis C Antibody IgG 04/23/22 * Vitamin D Level 07/07/22 * Complete Metabolic Panel 12/11/21 * Complete Metabolic Panel 11/21/21 * Complete Metabolic Panel 07/07/22 * COVID-19 Only (AO) 08/29/21 Radiology* MA Mammo Screening Bilateral w/ Nato 04/23/22 * XR Foot Minimum 3 Views Left 07/19/21 * BD Bone Density DEXA Axial Skeleton 04/23/22 [facility] Evaluation + Plan note Future Appointments Appointment Date:06/17/2022 02:30:00 PM Scheduled Provider:MATHIEU ROLAND DO Location:[facility] Appointment Type:PC OV Controlled Medication Appointment Date:07/10/2022 02:45:00 PM Scheduled Provider:MARQUISE LEHMAN MD Location:[facility] Appointment Type:ENDO OV Future Scheduled Tests Laboratory* Thyroid Stimulating Hormone 07/07/22 * A1C Hemoglobin 07/07/22 * Lipid Profile 07/07/22 * Hepatitis C Antibody IgG 04/23/22 * Vitamin D Level 07/07/22 * Complete Metabolic Panel 12/11/21 * Complete Metabolic Panel 11/21/21 * Complete Metabolic Panel 07/07/22 * COVID-19 Only (AO) 08/29/21 Radiology* XR Foot Minimum 3 Views Left 07/19/21 [facility] Evaluation + Plan note Future Appointments Appointment Date:10/02/2022 11:30:00 AM Scheduled Provider:MARQUISE LEHMAN MD Location:[facility] Appointment Type:ENDO OV Appointment Date:10/21/2022 03:30:00 PM Scheduled Provider:MATHIEU ROLAND DO Location:[facility] Appointment Type:PC OV Appointment Date:12/16/2022 03:30:00 PM Scheduled Provider:MATHIEU ROLAND DO Location:[facility] Appointment Type:PC OV Controlled Medication Future Scheduled Tests Laboratory* Hepatitis C Antibody IgG 04/23/22 * Complete Metabolic Panel 12/11/21 * Complete Metabolic Panel 11/21/21 [facility] Evaluation + Plan note Future Appointments Appointment Date:02/19/2023 03:00:00 PM Scheduled Provider:MARQUISE LEHMAN MD Location:[facility] Appointment Type:ENDO OV Appointment Date:03/18/2023 04:00:00 PM Scheduled Provider:MATHIEU ROLAND DO Location:[facility] Appointment Type:PC OV Controlled Medication Diagnostic Tests Pending * Vitamin D Level 02/12/23 Future Scheduled Tests Laboratory* Hepatitis C Antibody IgG 04/23/22 [facility] Evaluation + Plan note Future Appointments Appointment Date:09/10/2023 04:30:00 PM Scheduled Provider:MATHIEU ROLAND DO Location:[facility] Appointment Type:PC OV Appointment Date:10/27/2023 03:15:00 PM Scheduled Provider:MARQUISE LEHMAN MD Location:[facility] Appointment Type:ENDO OV Future Scheduled Tests Laboratory* Thyroid Stimulating Hormone 10/26/23 * Free T4 10/26/23 * A1C Hemoglobin 10/26/23 * Lipid Profile 10/26/23 * Albumin/Creatinine Ratio, Random Urine 10/26/23 * Vitamin D Level 10/26/23 * Complete Metabolic Panel 10/26/23 Radiology* US Thyroid 10/26/23 [facility] Evaluation + Plan note Future Appointments Appointment Date:10/27/2023 03:15:00 PM Scheduled Provider:MARQUISE LEHMAN MD Location:[facility] Appointment Type:ENDO OV Appointment Date:12/10/2023 03:00:00 PM Scheduled Provider:MATHIEU ROLAND DO Location:[facility] Appointment Type:PC OV Controlled Medication Future Scheduled Tests Laboratory* Complete Metabolic Panel 09/01/23 Radiology* US Thyroid 10/26/23 [facility] Evaluation + Plan note Future Appointments Appointment Date:03/10/2024 02:15:00 PM Scheduled Provider:MARQUISE LEHMAN MD Location:[facility] Appointment Type:ENDO OV Appointment Date:03/17/2024 03:30:00 PM Scheduled Provider:MATHIEU ROLAND DO Location:[facility] Appointment Type:PC OV Controlled Medication Future Scheduled Tests Laboratory* Complete Metabolic Panel 09/01/23 Radiology* US Thyroid 10/26/23 [facility] Evaluation + Plan note Future Appointments Appointment Date:08/22/2024 01:00:00 PM Scheduled Provider: Location:[facility] Appointment Type:MA Mammogram Screening Bilateral w/ Nato Appointment Date:08/22/2024 01:30:00 PM Scheduled Provider: Location:[facility] Appointment Type:BD Bone Density DEXA Axial Skeleton Appointment Date:09/08/2024 03:00:00 PM Scheduled Provider:MARQUISE LEHMAN MD Location:[facility] Appointment Type:ENDO OV Appointment Date:09/15/2024 02:30:00 PM Scheduled Provider:MATHIEU ROLAND DO Location:[facility] Appointment Type:PC OV Controlled Medication Future Scheduled Tests Laboratory* Thyroid Stimulating Hormone 09/10/24 * Free T4 09/10/24 * A1C Hemoglobin 09/10/24 * Free T3 09/10/24 * Lipid Profile 09/10/24 * Albumin/Creatinine Ratio, Random Urine 09/10/24 * Vitamin D Level 09/10/24 * Complete Metabolic Panel 09/10/24 * Complete Metabolic Panel 09/01/23 Radiology* MA Mammo Screening Bilateral w/ Nato 08/22/24 * BD Bone Density DEXA Axial Skeleton Adult (21 yrs or older) 08/22/24 * US Thyroid 10/26/23 [facility] Evaluation + Plan note Future Appointments Appointment Date:09/08/2024 03:00:00 PM Scheduled Provider:MARQUISE LEHMAN MD Location:[facility] Appointment Type:ENDO OV Appointment Date:09/15/2024 02:30:00 PM Scheduled Provider:MATHIEU ROLAND DO Location:[facility] Appointment Type:PC OV Controlled Medication Future Scheduled Tests Laboratory* Thyroid Stimulating Hormone 09/10/24 * Free T4 09/10/24 * A1C Hemoglobin 09/10/24 * Free T3 09/10/24 * Lipid Profile 09/10/24 * Albumin/Creatinine Ratio, Random Urine 09/10/24 * Vitamin D Level 09/10/24 * Complete Metabolic Panel 09/10/24 * Complete Metabolic Panel 09/01/23 Radiology* US Thyroid 10/26/23 [facility] Evaluation + Plan note Future Appointments Appointment Date:09/08/2024 03:00:00 PM Scheduled Provider:MARQUISE LEHMAN MD Location:[facility] Appointment Type:ENDO OV Appointment Date:09/15/2024 02:30:00 PM Scheduled Provider:MATHIEU ROLAND DO Location:[facility] Appointment Type:PC OV Controlled Medication Future Scheduled Tests Radiology* US Thyroid 10/26/23 [facility] Evaluation + Plan note Future Appointments Appointment Date:10/13/2024 03:00:00 PM Scheduled Provider: Location:[facility] Appointment Type:ENDO Nurse Appointment Date:10/20/2024 04:00:00 PM Scheduled Provider:MATHIEU ROLAND DO Location:[facility] Appointment Type:PC OV Appointment Date:01/12/2025 03:00:00 PM Scheduled Provider:MARQUISE LEHMAN MD Location:[facility] Appointment Type:ENDO OV Future Scheduled Tests Laboratory* Thyroid Stimulating Hormone 01/06/25 * A1C Hemoglobin 01/06/25 * Free T3 01/06/25 * Lipid Profile 01/06/25 * Albumin/Creatinine Ratio, Random Urine 01/06/25 * Vitamin D Level 01/06/25 * Complete Metabolic Panel 01/06/25 Radiology* US Thyroid 10/26/23 [facility] note Future Appointments Appointment Date:01/12/2025 03:00:00 PM Scheduled Provider:MARQUISE LEHMAN MD Location:[facility] Appointment Type:ENDO OV Appointment Date:03/16/2025 02:30:00 PM Scheduled Provider:MATHIEU ROLAND DO Location:[facility] Appointment Type:PC OV Controlled Medication [facility] Evaluation + Plan note Future Appointments Appointment Date:03/01/2025 04:00:00 PM Scheduled Provider:Jay Khan PT Location:[facility] Appointment Type:PT Treatment [facility] Appointment Date:03/16/2025 02:30:00 PM Scheduled Provider:MATHIEU ROLAND DO Location:[facility] Appointment Type:PC OV Controlled Medication Appointment Date:03/20/2025 04:00:00 PM Scheduled Provider: Location:[facility] Appointment Type:Echo - Echocardiogram Adult Appointment Date:06/07/2025 02:00:00 PM Scheduled Provider: Location:[facility] Appointment Type:US Thyroid Appointment Date:06/15/2025 03:30:00 PM Scheduled Provider:MARQUISE LEHMAN MD Location:[facility] Appointment Type:ENDO OV Future Scheduled Tests Laboratory* Basic Metabolic Panel 02/23/25 * Thyroid Stimulating Hormone 06/14/25 * Free T4 06/14/25 * A1C Hemoglobin 06/14/25 * Lipid Profile 06/14/25 * Albumin/Creatinine Ratio, Random Urine 06/14/25 * Vitamin D Level 06/14/25 * Complete Metabolic Panel 06/14/25 Radiology* US Thyroid 06/07/25 [facility] Evaluation + Plan note Future Appointments Appointment Date:03/01/2025 04:00:00 PM Scheduled Provider:Jay Khan PT Location:[facility] Appointment Type:PT Treatment [facility] Appointment Date:03/16/2025 02:30:00 PM Scheduled Provider:MATHIEU ROLAND DO Location:[facility] Appointment Type:PC OV Controlled Medication Appointment Date:03/20/2025 04:00:00 PM Scheduled Provider: Location:[facility] Appointment Type:Echo - Echocardiogram Adult Appointment Date:06/07/2025 02:00:00 PM Scheduled Provider: Location:[facility] Appointment Type:US Thyroid Appointment Date:06/15/2025 03:30:00 PM Scheduled Provider:MARQUISE LEHMAN MD Location:[facility] Appointment Type:ENDO OV Future Scheduled Tests Laboratory* Basic Metabolic Panel 02/24/25 * Basic Metabolic Panel 02/23/25 * Thyroid Stimulating Hormone 06/14/25 * Free T4 06/14/25 * A1C Hemoglobin 06/14/25 * Lipid Profile 06/14/25 * Albumin/Creatinine Ratio, Random Urine 06/14/25 * Vitamin D Level 06/14/25 * Complete Metabolic Panel 06/14/25 Radiology* US Thyroid 06/07/25 [facility] Evaluation note* Diagnosis Onset Date Resolution Status Debility acute Diabetic foot ulcer associat ed with type 2 diabetes mellitus acute Hypertension chronic Hypothyroidism chronic Debility acute Diabetic foot ulcer associat ed with type 2 diabetes mellitus acute Hypertension chronic Hypothyroidism chronic Debility acute Diabetic foot ulcer associat ed with type 2 diabetes mellitus acute Hypertension chronic Hypothyroidism chronic Debility acute Diabetic foot ulcer associat ed with type 2 diabetes mellitus acute Hypertension chronic Hypothyroidism [facility] Work Phone: Evaluation note* Diagnosis Onset Date Resolution Status Debility acute Diabetic foot ulcer associat ed with type 2 diabetes mellitus acute Hypertension chronic Hypothyroidism chronic Debility acute Diabetic foot ulcer associat ed with type 2 diabetes mellitus acute Hypertension chronic Hypothyroidism chronic Debility acute Diabetic foot ulcer associat ed with type 2 diabetes mellitus acute Hypertension chronic Hypothyroidism chronic Debility acute Diabetic foot ulcer associat ed with type 2 diabetes mellitus acute Hypertension chronic Hypothyroidism chronic Debility acute Diabetic foot ulcer associat ed with type 2 diabetes mellitus acute Localized edema acute Other specified peripheral vascular diseases acute 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 Hypertension chronic Hypothyroidism chronic Non-pressure chronic ulcer o f other part of left foot with fat layer exposed chronic Venous insufficiency (chronic) (peripheral) chronic Diabetic foot ulcer associat ed with type 2 diabetes mellitus acute Wound infection acute Type 2 diabetes mellitus [facility] Work Phone: Evaluation note* Diagnosis Onset Date Resolution Status Debility acute Diabetic foot ulcer associat ed with type 2 diabetes mellitus acute Hypertension chronic Hypothyroidism chronic Debility acute Diabetic foot ulcer associat ed with type 2 diabetes mellitus acute Hypertension chronic Hypothyroidism chronic Debility acute Diabetic foot ulcer associat ed with type 2 diabetes mellitus acute Hypertension chronic Hypothyroidism chronic Debility acute Diabetic foot ulcer associat ed with type 2 diabetes mellitus acute Hypertension chronic Hypothyroidism chronic Debility acute Diabetic foot ulcer associat ed with type 2 diabetes mellitus acute Localized edema acute Other specified peripheral vascular diseases acute 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 Hypertension chronic Hypothyroidism chronic Non-pressure chronic ulcer o f other part of left foot with fat layer exposed chronic Venous insufficiency (chronic) (peripheral) chronic Diabetic foot ulcer associat ed with type 2 diabetes mellitus acute Gangrene of toe of left foot acute Osteomyelitis acute Type 2 diabetes mellitus with diabetic polyneuropathy acute 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 acute Wound infection acute 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 Type 2 diabetes mellitus chr onic [facility] Work Phone: Evaluation note* Diagnosis Onset Date Resolution Status Debility acute Hypertension chronic Hypothyroidism chronic Diabetic foot ulcer associat ed with type 2 diabetes mellitus resolved Debility acute Hypertension chronic Hypothyroidism chronic Diabetic foot ulcer associat ed with type 2 diabetes mellitus resolved Debility acute Hypertension chronic Hypothyroidism chronic Diabetic foot ulcer associat ed with type 2 diabetes mellitus resolved Diabetic foot ulcer associat ed with type 2 diabetes mellitus resolved Gangrene of toe of left foot resolved 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 resolved Wound infection resolved Debility acute Localized edema acute Other specified peripheral vascular diseases acute Hypertension chronic Hypothyroidism chronic Non-pressure chronic ulcer o f other part of left foot with fat layer exposed chronic Venous insufficiency (chronic) (peripheral) chronic Diabetic foot ulcer associat ed with type 2 diabetes mellitus resolved Gangrene of toe of left foot resolved [facility] Work Phone: Evaluation noteNo assessment information available [facility] Work Phone: Hospital course Narrative No data available for this section [facility] Hospital Discharge instructions No data available for this section [facility] Progress note No data available for this section [facility] Chief Complaint and Reason for Visit Chief Complaint wound wound wound wound wound wound wound wound wound wound wound wound wound wound [facility] PROTOCAL PAD [facility] PROTOCAL Reason for Visit Debility Diabetic foot ulcer associated with type 2 diabetes mellitus Hypertension Hypothyroidism Debility Diabetic foot ulcer associated with type 2 diabetes mellitus Hypertension Hypothyroidism Debility Diabetic foot ulcer associated with type 2 diabetes mellitus Hypertension Hypothyroidism Debility Diabetic foot ulcer associated with type 2 diabetes mellitus Hypertension Hypothyroidism Chief Complaint wound wound wound wound wound wound wound wound wound wound wound wound wound wound [facility]EL [facility]AD [facility] PROTOCAL PAD PVD WOUND CENTER PROTOCAL PAD PVD WOUND CENTER PROTOCAL Reason for Visit Debility Diabetic foot ulcer associated with type 2 diabetes mellitus Hypertension Hypothyroidism Debility Diabetic foot ulcer associated with type 2 diabetes mellitus Hypertension Hypothyroidism Debility Diabetic foot ulcer associated with type 2 diabetes mellitus Hypertension Hypothyroidism Debility Diabetic foot ulcer associated with type 2 diabetes mellitus Hypertension Hypothyroidism Chief Complaint wound wound wound wound wound wound wound wound wound wound wound DFV [facility]EL [facility]AD [facility] PROTOCAL PAD PVD WOUND CENTER PROTOCAL PAD PVD WOUND CENTER PROTOCAL PAD PVD WOUND CENTER PROTOCAL PAD PVD WOUND CENTER PROTOCAL PAD PVD WOUND CENTER PROTOCAL PAD PVD WOUND CENTER PROTOCAL PAD PVD WOUND CENTER PROTOCAL Reason for Visit Debility Diabetic foot ulcer associated with type 2 diabetes mellitus Hypertension Hypothyroidism Debility Diabetic foot ulcer associated with type 2 diabetes mellitus Hypertension Hypothyroidism Debility Diabetic foot ulcer associated with type 2 diabetes mellitus Hypertension Hypothyroidism Debility Diabetic foot ulcer associated with type 2 diabetes mellitus Hypertension Hypothyroidism Chief Complaint wound wound wound wound wound wound wound wound wound DFV HEEL [facility] PROTOCAL PAD PVD WOUND CENTER PROTOCAL PAD PVD WOUND CENTER PROTOCAL PAD PVD WOUND CENTER PROTOCAL PAD PVD WOUND CENTER PROTOCAL PAD PVD W[facility] CENTER PROTOCAL PAD PVD WOUND CENTER PROTOCAL PAD PVD WOUND CENTER PROTOCAL PAD PVD WOUND CENTER PROTOCAL DEEP WOUND INFECTION, FAILED OUTPATIENT THERAPY Reason for Visit Debility Diabetic foot ulcer associated with type 2 diabetes mellitus Hypertension Hypothyroidism Debility Diabetic foot ulcer associated with type 2 diabetes mellitus Hypertension Hypothyroidism Debility Diabetic foot ulcer associated with type 2 diabetes mellitus Hypertension Hypothyroidism Debility Diabetic foot ulcer associated with type 2 diabetes mellitus Hypertension Hypothyroidism Debility Diabetic foot ulcer associated with type 2 diabetes mellitus Localized edema Other specified peripheral vascular diseases 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 Hypertension Hypothyroidism Non-pressure chronic ulcer of other part of left foot with fat layer exposed Venous insufficiency (chronic) (peripheral) Diabetic foot ulcer associated with type 2 diabetes mellitus Wound infection Type 2 diabetes mellitus Chief Complaint wound wound wound wound wound wound wound wound [facility] PROTOCAL PAD PVD WOUND CENTER PROTOCAL PAD PVD WOUND CENTER PROTOCAL PAD PVD WOUND CENTER PROTOCAL PAD PVD WOUND CENTER PROTOCAL PAD PVD WOUND CENTER PROTOCAL PAD PVD WOUND CENTER PROTOCAL PAD PVD WOUND CENTER PROTOCAL PAD PVD WOUND CENTER PROTOCAL DEEP WOUND INFECTION, FAILED OUTPATIENT THERAPY NEUROPATHIC INFECTION OF THE LEFT GREAT TOE NEUROPATHIC INFECTION OF THE LEFT GREAT TOE NEUROPATHIC INFECTION OF THE LEFT GREAT TOE NEUROPATHIC INFECTION OF THE LEFT GREAT TOE NEUROPATHIC INFECTION OF THE LEFT GREAT TOE Reason for Visit Debility Diabetic foot ulcer associated with type 2 diabetes mellitus Hypertension Hypothyroidism Debility Diabetic foot ulcer associated with type 2 diabetes mellitus Hypertension Hypothyroidism Debility Diabetic foot ulcer associated with type 2 diabetes mellitus Hypertension Hypothyroidism Debility Diabetic foot ulcer associated with type 2 diabetes mellitus Hypertension Hypothyroidism Debility Diabetic foot ulcer associated with type 2 diabetes mellitus Localized edema Other specified peripheral vascular diseases 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 Hypertension Hypothyroidism Non-pressure chronic ulcer of other part of left foot with fat layer exposed Venous insufficiency (chronic) (peripheral) Diabetic foot ulcer associated with type 2 diabetes mellitus Gangrene of toe of left foot Osteomyelitis Type 2 diabetes mellitus with diabetic polyneuropathy 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 Wound infection 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 Type 2 diabetes mellitus Chief Complaint wound wound wound wound wound wound DFV [facility]EL [facility] W[facility] C[facility] PROTOCAL PAD PVD WOUND CENTER PROTOCAL PAD PVD WOUND CENTER PROTOCAL PAD PVD WOUND CENTER PROTOCAL PAD PVD WOUND CENTER PROTOCAL PAD PVD WOUND CENTER PROTOCAL PAD PVD WOUND CENTER PROTOCAL PAD PVD WOUND CENTER PROTOCAL DEEP WOUND INFECTION, FAILED OUTPATIENT THERAPY NEUROPATHIC INFECTION OF THE LEFT GREAT TOE NEUROPATHIC INFECTION OF THE LEFT GREAT TOE NEUROPATHIC INFECTION OF THE LEFT GREAT TOE NEUROPATHIC INFECTION OF THE LEFT GREAT TOE NEUROPATHIC INFECTION OF THE LEFT GREAT TOE NEUROPATHIC INFECTION OF THE LEFT GREAT TOE PAD PVD WOUND CENTER PROTOCAL Reason for Visit Debility Hypertension Hypothyroidism Diabetic foot ulcer associated with type 2 diabetes mellitus Debility Hypertension Hypothyroidism Diabetic foot ulcer associated with type 2 diabetes mellitus Debility Hypertension Hypothyroidism Diabetic foot ulcer associated with type 2 diabetes mellitus Diabetic foot ulcer associated with type 2 diabetes mellitus Gangrene of toe of left foot 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 Wound infection Debility Localized edema Other specified peripheral vascular diseases Hypertension Hypothyroidism Non-pressure chronic ulcer of other part of left foot with fat layer exposed Venous insufficiency (chronic) (peripheral) Diabetic foot ulcer associated with type 2 diabetes mellitus Gangrene of toe of left foot Chief Complaint N/V Advance Directives No Advanced Directives Records Found Advance Directive Response Recorded Date/ Time Living Will No November 16th, 2 020 6:34pm Power of Metal Template Maker No July 16, 2020 6:34pm Advance Directive Response Recorded Date/ Time Living Will No January 14, 2022 7 :06pm Power of Metal Template Maker No January 14, 2022 7:06pm Advance Directive Response Recorded Date/ Time Living Will No January 14, 2022 1 1:01pm Power of Metal Template Maker No January 14, 2022 11:01pm Advance Directive Response Recorded Date/ Time Living Will No September 15 11:53pm Power of Metal Template Maker No September 15, 2022 11:53pm Summary Purpose Family History No Family History Records Found Additional Source Comments Goals (unrecognized section and content) Goals may be documented in a n alternate section Care Team (unrecognized sect ion and content) Team Status: Active Member Role Status Dates Dr. Mathieu Roland DO Primary Care Provider Active Team Status: Inactive Member Role Status Dates Dr. Mathieu Roland DO Primary Care Provider Active Dr. Whitney Ott MD Emergency Provider Active Team Status: Inactive Member Role Status Dates Dr. Mathieu Roland DO Primary Care Provider Active Dr. Whitney Ott MD Attending Provider, Emergency Provider Active Team Status: Inactive Member Role Status Dates Dr. Mathieu Roland DO Primary Care Provider Active Dr. Edin Schmidt DPM Attending Provider Active Care Team (unrecognized sect ion and content) Care Team Personnel Name: MATHIEU ROLAND DO Position: P4 Physician - Primary Care Med Service: Active Provider Member Role: Primary Care Physician Address: Address: [address] [place] [address] [facility] [address] Name: MARQUISE LEHMAN MD Position: P4 Physician - Endocrinology Med Service: Active Provider Member Role: Senior Lead Project Manager Address: Address: [address] [place] [address], [place] [address]- Name: CURT JORDAN DPM Position: Physician Med Service: Admitting Member Role: Disease Education Specialist Address: Address: [address] [place] [address], [place] [address] [facility] [place], [place] [id number] [place] [address] Care Team Related Persons Name: ALBERTO GREGORY Care Team Personnel Name: MATHIEU ROLAND DO Position: P4 Physician - Primary Care Member Role: Primary Care Physician Address: Address: [address] [place] [address] Name: MARQUISE LEHMAN MD Position: P4 Physician - Endocrinology Address: Address: [address] [place] [address] [address], [place] [address]- Name: CURT JORDANM Position: Physician Address: Address: [address] [place] [address], [address] [facility] [address] Care Team Related Persons Name: ALBERTO GREGORY Care Team Personnel Name: MATHIEU ROLAND DO Position: P4 Physician - Primary Care Med Service: Active Provider Member Role: Primary Care Physician Address: Address: [address] [place] [address] Name: MARQUISE LEHMAN MD Position: P4 Physician - Endocrinology Med Service: Active Provider Member Role: Senior Lead Project Manager Address: Address: [address] [place] [address], [address] Name: CURT JORDAN DPM Position: Physician Med Service: Admitting Member Role: Disease Education Specialist Address: Address: [address] [place] [address], [address] [facility] [address] Care Team Related Persons Name: ALBERTO GREGORY Care Team Personnel Name: MATHIEU ROLAND DO Position: P4 Physician - Primary Care Member Role: Primary Care Physician Address: Address: [address] [place] [address] Name: MARQUISE LEHMAN MD Position: P4 Physician - Endocrinology Member Role: Senior Lead Project Manager Address: Address: [address] [place] [address], [place] [address]- Name: CURT JORDAN DPM Position: Physician Member Role: Disease Education Specialist Address: Address: [address] [place] [address], [address] [facility] [place] [address]- Care Team Related Persons Name: ALBERTO GREGORY INFORMATION SOURCE (unrecogn ized section and content) DATE CREATED AUTHOR 08/29/2023 [facility] DATE CREATED AUTHOR AUTHOR'S ORGANIZ ATION [facility] [place] [facility] DATE CREATED AUTHOR AUTHOR'S ORGANIZ ATION 09/19/2024 [facility] DATE CREATED AUTHOR AUTHOR'S ORGANIZ ATION 03/02/2025 [facility] FOR RECORDS PERTAINING TO PATIENTS WHO ARE OR HAVE BEEN ENROLLED IN A CHEMICAL DEPENDENCY/SUBSTANCEABUSE PROGRAM, SOME INFORMATION MAY BE OMITTED. This clinical summary was aggregated from multiple sources. Caution should be exercised in using it in the provision of clinical care. This summary normalizes information from multiple sources, and as a consequence, information in this document may materially change the coding, format and clinical context of patient data. In addition, data may be omitted in some cases. CLINICAL DECISIONS SHOULD BE BASED ON THE PRIMARY CLINICAL RECORDS. [facility] [employer] [facility]. provides no warranty or guarantee of the accuracy or completeness of information in this document.
--- OUTSIDE RECORDS SUMMARY | 2025-03-02 23:36 | XMS RPT_ITS | CCD ---
Author Organization [facility] CliniSyal Care Team Providers Care Security Support Analyst Name Role Phone MATHIEU ROLAND DO Primary Care Physician [phone] Dr. Mathieu Roland Primary Care Provider Saunders PHYS ASSISTANT, PHYS ASSISTANT-C Milad Attending Provider [phone] Saunders PHYS ASSISTANT, PHYS ASSISTANT-C Milad Other Provider 1([facility])-[phone] Mathieu Roland Primary Care Provider Saunders PHYS ASSISTANT, PHYS ASSISTANT-C Milad Attending Provider [phone] Saunders PHYS ASSISTANT, PHYS ASSISTANT-C Milad Other Provider 1([facility])-[phone] Mathieu Roland Primary Care Provider Saunders PHYS ASSISTANT, PHYS ASSISTANT-C Milad Attending Provider [phone] Saunders PHYS ASSISTANT, PHYS ASSISTANT-C Milad Other Provider 1([facility])-[phone] Mathieu Roland Primary Care Provider Saunders PHYS ASSISTANT, PHYS ASSISTANT-C Milad Attending Provider [phone] Saunders PHYS ASSISTANT, PHYS ASSISTANT-C Milad Other Provider 1([facility])-[phone] Rafael Perez Emergency Provider Dr. Milad Reynolds Admit Provider Dr. Milad Reynolds Attending Provider Dr. Milad Reynolds Other Provider Dr. Tiffany Hairston Other Provider Dr. Paula Naranjo Attending Provider Dr. Paula Naranjo Other Provider 1([facility])[phone] Gibson Ruiz Other Provider 1([facility])[phone] Dr. Mathieu Roland Primary Care Provider Chip PHYS ASSISTANT, PHYS ASSISTANT-C Milad Attending Provider Chip PHYS ASSISTANT, PHYS ASSISTANT-C Milad Other Provider Dr. Jonny Lynch Attending [...] anxiety, # 90 tab(s), 2 Refill(s), [id number], Anxiety Long-term use of high-risk medication, 165, cm, 12/08/24 16:01:00 EDT, Height, 73.7, kg, 12/08/24 15:44:00 EDT, Dosing Weight Start Date: 12/08/24 Status: Ordered Quantity: 90.0 Unit: tab(s) Repeat number: 3 Indications: Other fci (current) drug therapy; Anxiety disorder, unspecified; Start: 06-15-2024 Xanax 0.5 mg o ral tablet Dose : 0.5 mg = 1 tab(s), Oral, TID, PRN as needed for anxiety, Do not fill until June 28, 2024, # 90 tab(s), 2 Refill(s), [id number], Anxiety, 162.6, cm, 06/15/24 14:27:00 EDT, Height, 76.6, kg, 03/17/24 15:31:00 EDT, Dosing Weight Start Date: 06/15/24 Status: Ordered Start: 12-10-2023 Xanax 0.5 mg o ral tablet Dose : 0.5 mg = 1 tab(s), Oral, TID, PRN as needed for anxiety, # 90 tab(s), 2 Refill(s), Pharmacy: [facility] #[id number], Anxiety, 165.5, cm, 12/10/23 15:09:00 EDT, Height, 79.8, kg, 12/10/23 15:09:00 EDT, Dosing Weight Start Date: 12/10/23 Status: Ordered Start: 09-23-2023 End: 09-30-2023 Xanax 0.5 mg oral tablet Dos e : 0.5 mg = 1 tab(s), Oral, TID, PRN as needed for anxiety, Short-term fill until next appointment, # 90 tab(s), 2 Refill(s), Pharmacy: [facility] #[id number], Anxiety, 165, cm, 09/01/23 13:55:00 EST, Height, [...] 90 tab(s), 2 Refill(s), Pharmacy: [facility] #[id number], Anxiety, 164, cm, 12/16/22 15:44:00 EDT, Height, 81.4, kg, 12/16/22 15:44:00 EDT, Dosing Weight Start Date: 12/16/22 Stop Date: 03/16/23 Status: Ordered Start: 07-16-2020 End: 06-25-2022 Xanax 0.5 mg oral tablet Dos e : 0.5 mg = 1 tab(s), Oral, TID, PRN as needed for anxiety, # 90 tab(s), 2 Refill(s), Pharmacy: [facility] #[id number], Anxiety, 165, cm, 03/27/22 16:49:00 EDT, Height, [...] her., # 90 tab(s), 1 Refill(s), Pharmacy: [facility]/pharmacy #[id number], Anxiety Trouble in sleeping, 162, cm, 03/17/24 15:31:00 EDT, Height, kg, 03/17/24 15:31:00 EDT, Dosing Weight Start Date: 03/17/24 Status: Ordered Start: 09-23-2023 amitriptyline 10 mg oral tablet Dose : 10 mg = 1 tab(s), Oral, qHS, Aware of patient age. Patient tolerates medication well and this medication works for her., # 90 tab(s), 1 Refill(s), Pharmacy: [facility] #[id number], Anxiety Trouble in sleeping, 165, cm, 09/01/23 13:55:00 EST, Height, kg, 09/01/23 13:47:00 EST, Dosing Weight Start Date: 09/23/23 Status: Ordered Start: 03-18-2023 amitriptyline 10 mg oral tablet Dose : 10 mg = 1 tab(s), Oral, qHS, Aware of patient age. Patient tolerates medication well and this medication works for her., # 90 tab(s), 1 Refill(s), Pharmacy: [facility] #[id number], Anxiety Recurrent major depression, 165, cm, 03/18/23 16:25:00 EDT, Height, kg, 03/18/23 16:09:00 EDT, Dosing Weight Start Date: 03/18/23 Status: Ordered Start: 09-16-2022 amitriptyline 10 mg oral tablet Dose : 10 mg = 1 tab(s), Oral, qHS, # 90 tab(s), 1 Refill(s), Pharmacy: [facility] #[id number], Anxiety Depressive disorder, 164.5, cm, 09/16/22 16:07:00 EST, Height, kg, 09/16/22 16:07:00 EST, Dosing Weight Start Date: 09/16/22 Status: Ordered Start: 04-16-2022 amitriptyline 10 mg oral tablet Dose : 10 mg = 1 tab(s), Oral, qHS, New prescription, # 90 tab(s), 1 Refill(s), Pharmacy: [facility] #[id number], Anxiety Depressive disorder, 165, cm, 04/16/22 14:02:00 EDT, Height, kg, 04/16/22 13:55:00 EDT, Dosing Weight Start Date: 04/16/22 Status: Ordered Start: 10-25-2021 amitriptyline 10 mg oral tablet Dose : 10 mg = 1 tab(s), Oral, qHS, New prescription, # 30 tab(s), 5 Refill(s), [facility]acy: [facility] Tension headache Anxiety, 166.37, cm, 10/25/21 14:26:00 EST, Height, kg, 10/25/21 14:26:00 EST, Dosing Weight Start Date: 10/25/21 Status: Ordered amLODIPine 10 mg oral tablet (4 sources) Dihydropyridine Calcium Channel Doris Start: 10-20-2024 amLODIPine 10 mg ora l tablet Dose : 10 mg = 1 tab(s), Oral, qDay, # 90 tab(s), 3 Refill(s), Pharmacy: [facility]/pharmacy #[id number], Uncontrolled hypertension Hypertension associated with type [...] qDay, # 90 tab(s), 3 Refill(s), Pharmacy: [facility] #[id number], Uncontrolled hypertension Hypertension associated with type 2 diabetes mellitus, 165.5, cm, 12/10/23 15:09:00 EDT, Height, kg, 12/10/23 15:09:00 EDT, Dosing Weight Start Date: 12/10/23 Status: Ordered Start: 09-01-2023 amLODIPine 10 mg oral tablet Dose : 10 mg = 1 tab(s), Oral, qDay, # 90 tab(s), 1 Refill(s), [facility]: [facility] #[id number], Uncontrolled hypertension, 165, cm, 09/01/23 13:55:00 EST, [...] BID, # 60 tab(s), 2 Refill(s), Pharmacy: [facility]/pharmacy #[id number], 165, cm, 02/09/25 13:33:00 EDT, Height, [...] qDay, # 90 tab(s), 1 Refill(s), Pharmacy: [facility]/pharmacy #[id number], Hypertension PAD - Peripheral arterial disease, 162, cm, 03/17/24 15:31:00 EDT, Height, kg, 03/17/24 15:31:00 EDT, Dosing Weight Start Date: 03/17/24 Status: Ordered Start: 09-23-2023 clopidogrel 75 mg oral tablet Dose : 75 mg = 1 tab(s), Oral, qDay, # 90 tab(s), 1 Refill(s), [facility]acy: [facility] #[id number], Hypertension PAD - Peripheral arterial disease, 165, cm, 09/01/23 13:55:00 EST, Height, kg, 09/01/23 13:47:00 EST, Dosing Weight Start Date: 09/23/23 Status: Ordered Start: 03-18-2023 clopidogrel 75 mg oral tablet Dose : 75 mg = 1 tab(s), Oral, qDay, # 90 tab(s), 1 Refill(s), Pharmacy: [facility] #[id number], Hypertension PAD - Peripheral arterial disease, 165, cm, 03/18/23 16:25:00 EDT, Height, kg, 03/18/23 16:09:00 EDT, Dosing Weight Start Date: 03/18/23 Status: Ordered Start: 07-16-2020 clopidogrel 75 mg oral tablet Dose : 75 mg = 1 tab(s), Oral, qDay, # 90 tab(s), 1 Refill(s), Pharmacy: [facility] #[id number], Hypertension PAD - Peripheral arterial disease, 164.5, cm, 09/16/22 16:07:00 EST, Height, kg, 09/16/22 16:07:00 EST, Dosing Weight Start Date: 09/16/22 Status: Ordered colesevelam hydrochloride 625 mg oral tablet (1 source) Bile Acid Sequestrant Start: 07-10-2022 colesevelam 625 mg oral tablet Dose : 1,875 mg = 3 tab(s), Oral, BID, # 180 tab(s), 2 Refill(s), [facility] #[id number], 165, cm, 07/10/22 14:46:00 EST, Height Start [...] sources) Provitamin D2 Compound Start: 07-16-2020 take 65296 [IU] by mouth every week Ergocalciferol (Vitamin D2) Active 94915 UNIT PO EVERY WEEK July 16, 2020 [...] please, # 180 tab(s), 1 Refill(s), Pharmacy: [facility]/pharmacy #[id number], Neuropathy Chronic pain, 165, cm, 09/15/24 14:32:00 EST, Height, 74.9, kg, 09/15/24 14:32:00 EST, Dosing Weight Start Date: 09/15/24 Stop Date: 03/14/25 Status: Ordered Quantity: 180.0 Unit: tab(s) Repeat number: 2 Indications: Other chronic pain; Polyneuropathy, unspecified; Start: 09-23-2023 End: 09-13-2024 gabapentin 600 mg oral table t Dose : 600 mg = 1 tab(s), Oral, BID, # 180 tab(s), 1 Refill(s), Pharmacy: [facility]/pharmacy #[id number], Neuropathy Type 2 diabetes mellitus with complications, 162, cm, 03/17/24 15:31:00 EDT, Height, 76.6, kg, 03/17/24 15:31:00 EDT, Dosing Weight Start Date: 03/17/24 Stop Date: 09/13/24 Status: Ordered Start: 07-16-2020 End: 09-14-2023 gabapentin 600 mg oral table t Dose : 600 mg = 1 tab(s), Oral, BID, # 180 tab(s), 1 Refill(s), Pharmacy: [facility] #[id number], Neuropathy Controlled type 2 diabetes mellitus, 165, cm, 03/18/23 16:25:00 EDT, Height, 81.1, kg, 03/18/23 16:09:00 EDT, Dosing Weight Start Date: 03/18/23 Stop Date: 09/14/23 Status: Ordered glimepiride 2 mg oral tablet (19 sources) Sulfonylurea Start: 03-24-2022 glimepiride 2 mg oral tablet Dose : 2 mg = 1 tab(s), Oral, qDayM, # 90 tab(s), 1 Refill(s), Pharmacy: [facility] #[id number], 165, cm, 03/06/22 14:46:00 EDT, Height, kg, [...] daily, # 15 mL, 3 Refill(s), Pharmacy: [facility] [address] 166.37, cm, 10/25/21 14:26:00 [...] daily, # 15 mL, 3 Refill(s), Pharmacy: [facility] [address] 165.1, cm, 06/25/21 16:02:00 EDT, Height, kg, 06/25/21 16:02:00 EDT, Dosing Weight Start Date: 06/25/21 Status: Ordered Start: 01-29-2021 inject 1 dose by sub cutaneous injection once daily Levemir FlexTouch 100 units/mL 3 mL Pen Dose : 38 unit(s) =, Subcutaneous, Daily, inject 44 units subcutaneously daily, # 15 mL, 3 Refill(s), Pharmacy: [facility] [address] 164.5, cm, 01/24/21 15:33:00 [...] bedtime, # 15 mL, 1 Refill(s), Pharmacy: [facility] #[id number], 165.5, cm, 12/10/23 15:09:00 EDT, Height, kg, 12/10/23 15:09:00 EDT, Dosing Weight Start Date: 02/22/24 Status: Ordered Start: 06-25-2023 inject 1 dose by sub cutaneous injection once daily at bedtime Lantus Solostar Pen 100 units/mL 3 mL Pen Dose : 10 unit(s) =, Subcutaneous, qHS, inject 12 units subcutaneously at bedtime, # 15 mL, 1 Refill(s), Pharmacy: [facility] #[id number], 165, cm, 06/25/23 15:16:00 EDT, Height, kg, [...] qHS, # 15 mL, 3 Refill(s), Pharmacy: [facility] #[id number], 164.5, cm, 09/16/22 16:07:00 EST, Height Start Date: 09/18/22 Status: Ordered levothyroxine sodium 0.05 mg oral tablet (20 sources) l-Thyroxine Start: 01-16-2025 take 1 tablet by mouth once daily levothyroxine 50 mcg (0.05 mg) oral tablet See Instructions, take 1 tablet by mouth once daily, # 90 tab(s), 1 Refill(s), Pharmacy: [facility]/pharmacy #[id number], 165, cm, 01/12/25 15:01:00 EDT, Height, kg, 05/15/25 15:01:00 EDT, Dosing Weight Start Date: 01/16/25 Status: Ordered Quantity: 90.0 Unit: tab(s) Repeat number: 2 Start: 09-07-2024 take 1 tablet by yanelis th once daily levothyroxine 50 mcg (0.05 mg) oral tablet See Instructions, take 1 tablet by mouth once daily, # 90 tab(s), 1 Refill(s), Pharmacy: [facility]/pharmacy #[id number], 165, cm, 07/07/24 15:39:00 EST, Height, kg, 07/07/24 15:39:00 EST, Dosing Weight Start Date: 09/07/24 Status: Ordered Quantity: 90.0 Unit: tab(s) Repeat number: 2 Start: 12-10-2023 take 1 tablet by yanelis th once daily levothyroxine 50 mcg (0.05 mg) oral tablet See Instructions, take 1 tablet by mouth once daily, # 90 tab(s), 2 Refill(s), Pharmacy: [facility] #[id number], 165.5, cm, 12/10/23 15:09:00 EDT, Height, kg, 12/10/23 15:09:00 EDT, Dosing Weight Start Date: 12/10/23 Status: Ordered Start: 09-18-2022 take 1 tablet by yanelis th once daily levothyroxine 50 mcg (0.05 mg) oral tablet See Instructions, take 1 tablet by mouth once daily, # 90 tab(s), 2 Refill(s), Pharmacy: [facility] #[id number], 164.5, cm, 09/16/22 16:07:00 EST, Height, kg, [...] daily, # 90 tab(s), 1 Refill(s), [facility] [address] 165.1, cm, 03/12/21 15:19:00 [...] Nausea/Vomiting, # 20 tab(s), 0 Refill(s), [facility] [address] 165, cm, 01/06/22 14:05:00 EDT, Height Start Date: 01/10/22 Status: Ordered Quantity: 20.0 Unit: tab(s) Repeat number: 1 Start: 07-13-2020 Zofran 4 mg or al tablet Dose : 4 mg = 1 tab(s), Oral, q6h, PRN Nausea/Vomiting, # 20 tab(s), 0 Refill(s), Pharmacy: [facility] [address] Nausea, 164.2, cm, 06/22/20 [...] 0 Refill(s), 02/25/25 3:10:00 PM EDT, Pharmacy: [facility]/pharmacy #[id number], Hypertension, 165, cm, 02/09/25 13:33:00 EDT, Height, kg, 02/09/25 13:33:00 EDT, Dosing Weight Start Date: 02/22/25 Stop Date: 02/25/25 Status: Ordered Quantity: 6.0 Unit: tab(s) Repeat number: 1 Indications: Essential (primary) hypertension; Start: 04-16-2022 take 1 tablet by yanelis th once daily Potassium Chloride (Qfl-Mvbg-Pez M20) 20 mEq oral tablet, extended release See Instructions, take 1 tablet by mouth once daily with FUROSEMIDE, # 90 tab(s), 1 Refill(s), Pharmacy: [facility] #[id number], Hypertension, 165, cm, 04/16/22 14:02:00 EDT, Height, kg, 04/16/22 13:55:00 EDT, Dosing Weight Start Date: 04/16/22 Status: Ordered Quantity: 90.0 Unit: tab(s) Repeat number: 2 Indications: Essential (primary) hypertension; Start: 04-16-2022 take 1 tablet by yanelis th once daily Potassium Chloride (Sbb-Bunv-Tvd M20) 20 mEq oral tablet, extended release See Instructions, take 1 tablet by mouth once daily with FUROSEMIDE, # 90 tab(s), 1 Refill(s), Pharmacy: [facility] #[id number], Hypertension, 165, cm, 04/16/22 14:02:00 EDT, Height, kg, 04/16/22 13:55:00 EDT, Dosing Weight Start Date: 04/16/22 Status: Ordered Start: 02-04-2022 take 1 tablet by yanelis th once daily Potassium Chloride (Iru-Ixgz-Uus M20) 20 mEq oral tablet, extended release See Instructions, take 1 tablet by mouth once daily with FUROSEMIDE, # 30 tab(s), 1 Refill(s), Pharmacy: [facility] 165, cm, 01/06/22 14:05:00 EDT, Height, kg, 01/06/22 14:05:00 EDT, Dosing Weight Start Date: 02/04/22 Status: Ordered Start: 12-11-2021 take 1 tablet by yanelis th once daily Potassium Chloride (Bgr-Gfol-Ntv M20) 20 mEq oral tablet, extended release See Instructions, take 1 tablet by mouth once daily with FUROSEMIDE, # 30 tab(s), 1 Refill(s), [facility] [address] 166.37, cm, 10/25/21 14:26:00 EST, Height, kg, 10/25/21 14:26:00 EST, Dosing Weight Start Date: 12/11/21 Status: Ordered Start: 09-30-2021 take 1 tablet by yanelis th once daily Potassium Chloride (Bjc-Gbsw-Swx M20) 20 mEq oral tablet, extended release See Instructions, take 1 tablet by mouth once daily with FUROSEMIDE, # 30 tab(s), 1 Refill(s), [facility] [address] 165, cm, 09/17/21 15:34:00 EST, Height, kg, 09/17/21 15:34:00 EST, Dosing Weight Start Date: 09/30/21 Status: Ordered Start: 04-25-2021 take 1 tablet by yanelis th once daily Potassium Chloride (Sgf-Betf-Hcg M20) 20 mEq oral tablet, extended release See Instructions, take 1 tablet by mouth once daily with FUROSEMIDE, # 30 tab(s), 1 Refill(s), [facility] [address] 165.1, cm, 03/12/21 15:19:00 EDT, [...] qDay, # 60 cap(s), 5 Refill(s), Pharmacy: [facility]/pharmacy #[id number], HTN (hypertension), 165, cm, 02/23/25 14:08:00 EDT, Height, kg, 02/23/25 14:08:00 EDT, Dosing Weight Start Date: 02/23/25 Stop Date: 08/22/25 Status: Ordered Quantity: 60.0 Unit: cap(s) Repeat number: 6 Indications: Essential (primary) hypertension; Start: 12-28-2024 ramipril 10 mg oral capsule Dose : 10 mg = 1 cap(s), Oral, qDay, # 30 cap(s), 5 Refill(s), Pharmacy: [facility]/pharmacy #[id number], 165, cm, 12/08/24 16:01:00 EDT, Height, kg, 12/08/24 15:44:00 EDT, Dosing Weight Start Date: 12/28/24 Status: Ordered Quantity: 30.0 Unit: cap(s) Repeat number: 6 Start: 07-13-2024 ramipril 10 mg oral capsule Dose : 10 mg = 1 cap(s), Oral, qDay, # 30 cap(s), 0 Refill(s), Pharmacy: [facility]/pharmacy #[id number], 165, cm, 07/07/24 15:39:00 EST, Height, kg, 07/07/24 15:39:00 EST, Dosing Weight Start Date: 07/13/24 Status: Ordered Start: 12-10-2023 ramipril 10 mg oral capsule Dose : 10 mg = 1 cap(s), Oral, qDay, # 30 cap(s), 4 Refill(s), Pharmacy: [facility] #[id number], 165.5, cm, 12/10/23 15:09:00 EDT, Height, kg, 12/10/23 15:09:00 EDT, Dosing Weight Start Date: 12/10/23 Status: Ordered Start: 08-03-2023 ramipril 10 mg oral capsule Dose : 10 mg = 1 cap(s), Oral, qDay, # 30 cap(s), 4 Refill(s), Pharmacy: [facility] #[id number], 165, cm, 06/25/23 15:16:00 EDT, Height, kg, 06/25/23 15:16:00 EDT, Dosing Weight Start Date: 08/03/23 Status: Ordered Start: 09-18-2022 ramipril 10 mg oral capsule Dose : 10 mg = 1 cap(s), Oral, qDay, # 30 cap(s), 4 Refill(s), Pharmacy: [facility] #[id number], 164.5, cm, 09/16/22 16:07:00 EST, Height, kg, 09/16/22 16:07:00 EST, Dosing Weight Start Date: 09/18/22 Status: Ordered Start: 03-24-2022 ramipril 10 mg oral capsule Dose : 10 mg = 1 cap(s), Oral, qDay, # 30 cap(s), 4 Refill(s), Pharmacy: [facility] #[id number], 165, cm, 03/06/22 14:46:00 EDT, Height, kg, 03/06/22 14:46:00 EDT, Dosing Weight Start Date: 03/24/22 Status: Ordered Start: 10-31-2021 take 10 mg by mouth once daily Ramipril Active 10 MG PO DAILY October 31, 2021 12:00am Start: 10-22-2021 ramipril 10 mg oral capsule Dose : 10 mg = 1 cap(s), Oral, qDay, # 30 cap(s), 4 Refill(s), Pharmacy: [facility] 165, cm, 10/22/21 15:25:00 EST, Height, kg, 10/22/21 15:25:00 EST, Dosing Weight Start Date: 10/22/21 Status: Ordered Start: 05-10-2021 ramipril 2.5 m g oral capsule Dose : 2.5 mg = 1 cap(s), Oral, qDay, # 90 cap(s), 0 Refill(s), Pharmacy: [facility] 165.1, cm, 06/25/21 16:02:00 [...] qDay, # 90 tab(s), 3 Refill(s), Pharmacy: [facility]/pharmacy #[id number], Hyperlipidemia Controlled type 2 diabetes mellitus, [...] medication, # 90 tab(s), 3 Refill(s), [facility] #[id number], Type 2 diabetes mellitus with hyperlipidemia, 165, [...] day(s), # 20 tab(s), 0 Refill(s), Pharmacy: [facility] [address] 165, cm, 01/06/22 14:05:00 EDT, Height, 88 Start Date: 01/10/22 Stop Date: 01/20/22 Status: Ordered Start: 07-19-2021 End: 08-02-2021 take 1 tablet by mouth every twelve hours sulfamethoxazole-trimethoprim 800 mg-160 mg oral tablet Dose = 1 tab(s), Oral, q12h, drink plenty of fluids, X 14 day(s), # 28 tab(s), 0 Refill(s), [facility] [address] 165.1, cm, 06/25/21 [...] week, # 4 cap(s), 6 Refill(s), Pharmacy: [facility] #[id number], Vitamin D deficiency, 164.5, cm, 10/21/22 15:34:00 EST, Height, kg, 10/21/22 15:34:00 EST, Dosing Weight Start Date: 10/21/22 Status: Ordered Start: 03-24-2022 take 1 capsule by mo [facility] every week Vitamin D2 1.25 mg (50,000 intl units) oral capsule See Instructions, take 1 capsule by mouth every week, # 4 cap(s), 6 Refill(s), called to pharmacy (Rx) Start Date: 03/24/22 Status: Ordered Start: 09-07-2021 take 1 capsule by [facility] every week Vitamin D2 1.25 mg (50,000 [...] week, # 9 mL, 5 Refill(s), Pharmacy: [facility] #[id number], 165.5, cm, 12/10/23 15:09:00 EDT, Height, kg, 12/10/23 15:09:00 EDT, Dosing Weight Start Date: 12/10/23 Status: Ordered Quantity: 9.0 Unit: mL Repeat number: 6 Start: 12-10-2023 inject 1 mg by subcu taneous injection every week Ozempic 4 mg/3 mL (1 mg dose) subcutaneous solution Dose : 1 mg =, Subcutaneous, qWeek, inject 1 milligram subcutaneously every week, # 9 mL, 5 Refill(s), Pharmacy: [facility] #[id number], 165.5, cm, 12/10/23 15:09:00 EDT, Height, kg, 12/10/23 15:09:00 EDT, Dosing Weight Start Date: 12/10/23 Status: Ordered Start: 08-10-2023 inject 1 mg by subcu taneous injection every week Ozempic 4 mg/3 mL (1 mg dose) subcutaneous solution Dose : 1 mg =, Subcutaneous, qWeek, inject 1 milligram subcutaneously every week, # 3 mL, 3 Refill(s), Pharmacy: [facility] #[id number], 165, cm, 06/25/23 15:16:00 EDT, Height, kg, 06/25/23 15:16:00 EDT, Dosing Weight Start Date: 08/10/23 Status: Ordered Start: 11-13-2022 inject 1 mg by subcu taneous injection every week Ozempic (1 mg dose) 4 mg/3 mL subcutaneous solution Dose : 1 mg =, Subcutaneous, qWeek, inject 1 milligram subcutaneously every week, # 3 mL, 3 Refill(s), Pharmacy: [facility] #[id number], 164.5, cm, 10/21/22 15:34:00 EST, Height, kg, 10/21/22 15:34:00 EST, Dosing Weight Start Date: 11/13/22 Status: Ordered Start: 06-17-2022 inject 1 mg by subcu taneous injection every week Ozempic (1 mg dose) 4 mg/3 mL subcutaneous solution Dose : 1 mg =, Subcutaneous, qWeek, inject 1 milligram subcutaneously every week, # 2 mL, 3 Refill(s), Pharmacy: [facility] #[id number], 165, cm, 04/23/22 13:51:00 EDT, Height Start [...] 2025, # 60 tab(s), 0 Refill(s), [id number], Chronic pain, 165, cm, 12/08/24 16:01:00 [...] 2024, # 60 tab(s), 0 Refill(s), [id number], Chronic pain, 165, cm, 09/15/24 14:32:00 [...] 2024, # 60 tab(s), 0 Refill(s), Pharmacy: [facility]/pharmacy #[id number], Chronic pain, 162.6, cm, 06/15/24 14:27:00 [...] 2022., # 60 tab(s), 0 Refill(s), Pharmacy: [facility] #[id number], Chronic pain, 164.5, cm, 09/16/22 16:07:00 EST, Height, 81.5, kg, 09/16/22 16:07:00 EST, Dosing Weight Start Date: 09/16/22 Stop Date: 10/16/22 Status: Ordered Start: 03-27-2022 End: 04-27-2022 take 1 tablet by mouth twice daily acetaminophen-hydrocodone 325 mg-5 mg or al tablet Dose = 1 tab(s), Oral, BID, Do not fill until May 26, 2022, # 60 tab(s), 0 Refill(s), Pharmacy: [facility] #[id number], Chronic pain, 165, cm, 03/27/22 16:49:00 EDT, Height, 83.7, kg, 03/27/22 16:39:00 EDT, Dosing Weight Start Date: 03/28/22 Stop Date: 04/27/22 Status: Ordered Start: 12-17-2021 End: 01-16-2022 take 1 tablet by mouth twice daily acetaminophen-hydrocodone 325 mg-5 mg or al tablet Dose = 1 tab(s), Oral, BID, Please do not fill until 02/15/2022, # 60 tab(s), 0 Refill(s), Pharmacy: [facility] Chronic pain, 165, cm, 12/17/21 16:18:00 EDT, Height, 85, kg, 12/17/21 16:07:00 EDT, Dosing Weight Start Date: 12/17/21 Stop Date: 01/16/22 Status: Ordered Start: 09-17-2021 End: 10-17-2021 take 1 tablet by mouth twice daily acetaminophen-hydrocodone 325 mg-5 mg or al tablet Dose = 1 tab(s), Oral, BID, do not fill until 11/16/2021, # 60 tab(s), 0 Refill(s), Pharmacy: [facility] [address] Chronic pain, 165, cm, 09/17/21 15:34:00 EST, Height, 77.3, kg, 09/17/21 15:34:00 EST, Dosing Weight Start Date: 09/17/21 Stop Date: 10/17/21 Status: Ordered Start: 06-18-2021 End: 07-18-2021 take 1 tablet by mouth twice daily acetaminophen-hydrocodone 325 mg-5 mg or al tablet Dose = 1 tab(s), Oral, BID, Do not fill until 08/17/2021, # 60 tab(s), 0 Refill(s), [facility] [address] Chronic pain, 165.1, cm, 03/12/21 [...] sites, # 2 mL, 3 Refill(s), [facility] [address] 164.5, cm, 10/25/20 15:43:00 EST, [...] qDay, # 90 tab(s), 3 Refill(s), Pharmacy: [facility]/pharmacy #[id number], Uncontrolled hypertension Hypertension associated with type [...] 90 tab(s), 3 Refill(s), Pharmacy: [facility] #[id number], Uncontrolled hypertension Hypertension associated with type 2 diabetes mellitus, 165.5, cm, 12/10/23 15:09:00 EDT, Height, kg, 12/10/23 15:09:00 EDT, Dosing Weight Start Date: 12/10/23 Status: Ordered Start: 09-01-2023 hydroCHLOROthi azide 25 mg oral tablet Dose : 25 mg = 1 tab(s), Oral, qDay, # 90 tab(s), 1 Refill(s), Pharmacy: [facility] #[id number], Uncontrolled hypertension, 165, cm, 09/01/23 13:55:00 EST, [...] Estimated Glomerular Filtration Rate 61 ml/min/1.73sqm Normal [facility] Comment on above: Result Comment: Stages of [...] Performed By: #### Ingris YATES, BMP #### [address] [address] BMPon 02-28-2025 BUN/Creatinine Ratio 19 ratio Normal 7-27 [facility] Comment on above: Performed By: #### Ingris YATES, BMP #### [address] [address] Calcium [Mass/Vol] 8.8 mg/dL Normal 8.4-10.2 [facility] Comment on above: Performed By: #### Ingris YATES, BMP #### [address] [address] Chloride [Moles/Vol] 93 mmol/L Low 98-107 [facility] Comment on above: Performed By: #### Ingris YATES, BMP #### [address] [address] CO2 [Moles/Vol] 28 mmol/L Normal 23-31 [facility] Comment on above: Performed By: #### Ingris YATES, BMP #### [address] [address] Creatinine [Mass/Vol] 0.96 mg/dL High 0.51-0.95 [facility] Comment on above: Performed By: #### Ingris YATES, BMP #### [address] [address] Electrolyte Balance 6.0 mEq/L Normal 4.0-15.0 [facility] Comment on above: Performed By: #### Ingris YATES, BMP #### [address] [address] Glucose [Mass/Vol] 103 mg/dL Normal 83-110 [facility] Comment on above: Performed By: #### Ingris YATES, BMP #### [address] [address] Potassium [Moles/Vol] 5.1 mmol/L Normal 3.5-5.1 [facility] Comment on above: Performed By: #### G , BMP #### [facility] [address] [place], [place] [address] Sodium [Moles/Vol] 127 mmol/L Low 136-145 [facility] Comment on above: Performed By: #### G FR, BMP #### [facility] [address] [place], [place] [address] Urea nitrogen [Mass/Vol] 18 mg/dL Normal 7-18 [facility] Comment on above: Performed By: #### G FR, BMP #### [address] [place], [place] [address] LABORATORYOrdered By: SYSTEM SYSTEM on 02-28-2025 Calcium [...] Estimated Glomerular Filtration Rate 70 ml/min/1.73sqm Normal [facility] Comment on above: Result Comment: Stages of [...] Performed By: #### G , BMP #### [address] [address] BMPon 02-23-2025 BUN/Creatinine Ratio 15 ratio Normal 7-27 [facility] Comment on above: Performed By: #### G FR, BMP #### [address] [address] Calcium [Mass/Vol] 9.2 mg/dL Normal 8.4-10.2 [facility] Comment on above: Performed By: #### G FR, BMP #### [address] [address] Chloride [Moles/Vol] 92 mmol/L Low 98-107 [facility] Comment on above: Performed By: #### G FR, BMP #### [address] [address] CO2 [Moles/Vol] 33 mmol/L High 23-31 [facility] Comment on above: Performed By: #### G FR, BMP #### [address] [address] Creatinine [Mass/Vol] 0.86 mg/dL Normal 0.51-0.95 [facility] Comment on above: Performed By: #### Ingris YATES, BMP #### [address] [address] Electrolyte Balance 6.0 mEq/L Normal 4.0-15.0 [facility] Comment on above: Performed By: #### Ingris YATES, BMP #### [address] [address] Glucose [Mass/Vol] 152 mg/dL High 83-110 [facility] Comment on above: Performed By: #### Ingris YATES, BMP #### [address] [address] Potassium [Moles/Vol] 3.6 mmol/L Normal 3.5-5.1 [facility] Comment on above: Performed By: #### Ingris YATES, BMP #### [address] [address] Sodium [Moles/Vol] 131 mmol/L Low 136-145 [facility] Comment on above: Performed By: #### Ingris YATES, BMP #### [address] [address] Urea nitrogen [Mass/Vol] 13 mg/dL Normal 7-18 [facility] Comment on above: Performed By: #### Ingris YATES, BMP #### [address] [address] LABORATORYOrdered By: SYSTEM SYSTEM on 02-23-2025 Calcium [...] Basophil, Absolute 0.0 10 3/mcL Normal 0.0-0.3 [facility] Comment on above: Performed By: #### G , BMP #### [address] [address] Basophils/100 WBC (Bld) 0.6 % Normal 0.0-2.5 [facility] Comment on above: Performed By: #### G FR, BMP #### [address] [address] Eosinophil, Absolute 0.1 10 3/mcL Normal 0.0-0.7 [facility] Comment on above: Performed By: #### G FR, BMP #### [address] [address] Eosinophils/100 WBC (Bld) 1.0 % Normal 0.0-6.0 [facility] Comment on above: Performed By: #### G FR, BMP #### [address] [place], [place] [address] Lymphocyte, Absolute 1.1 10 3/mcL Normal 0.9-4.3 [facility] Comment on above: Performed By: #### G FR, BMP #### [facility] [address] [place], [place] [address] Lymphocytes/100 WBC (Bld) 22.2 % Normal 20.0-40.0 [facility] Comment on above: Performed By: #### G FR, BMP #### [address] [address] Monocyte, Absolute 0.5 10 3/mcL Normal 0.1-1.4 [facility] Comment on above: Performed By: #### G FR, BMP #### [address] [address] Monocytes/100 WBC (Bld) 8.9 % Normal 2.0-13.0 [facility] Comment on above: Performed By: #### G FR, BMP #### [address] [address] Neutrophils/100 WBC (Bld) 67.3 % Normal 50.0-75.0 [facility] Comment on above: Performed By: #### G FR, BMP #### [address] [address] .GFRon 02-21-2025 Estimated Glomerular Filtration Rate 84 ml/min/1.73sqm Normal [facility] Comment on above: Result Comment: Stages of [...] Performed By: #### G FR, BMP #### [address] [address] .NEUABSon 02-21-2025 Neutrophil, Absolute 3.4 10 3/mcL Normal 2.3-8.1 [facility] Comment on above: Performed By: #### G FR, BMP #### [address] [address] BMPon 02-21-2025 BUN/Creatinine Ratio 15 ratio Normal 7-27 [facility] Comment on above: Performed By: #### G FR, BMP #### [address] [address] Calcium [Mass/Vol] 8.9 mg/dL Normal 8.4-10.2 [facility] Comment on above: Performed By: #### G FR, BMP #### [address] [address] Chloride [Moles/Vol] 92 mmol/L Low 98-107 [facility] Comment on above: Performed By: #### G FR, BMP #### [address] [address] CO2 [Moles/Vol] 35 mmol/L High 23-31 [facility] Comment on above: Performed By: #### G FR, BMP #### [address] [address] Creatinine [Mass/Vol] 0.74 mg/dL Normal 0.51-0.95 [facility] Comment on above: Performed By: #### G FR, BMP #### [address] [address] Electrolyte Balance 4.0 mEq/L Normal 4.0-15.0 [facility] Comment on above: Performed By: #### G FR, BMP #### [address] [address] Glucose [Mass/Vol] 157 mg/dL High 83-110 [facility] Comment on above: Performed By: #### G FR, BMP #### [address] [address] Potassium [Moles/Vol] 3.0 mmol/L Low 3.5-5.1 [facility] Comment on above: Performed By: #### G FR, BMP #### [address] [address] Sodium [Moles/Vol] 131 mmol/L Low 136-145 [facility] Comment on above: Performed By: #### G FR, BMP #### [address] [address] Urea nitrogen [Mass/Vol] 11 mg/dL Normal 7-18 [facility] Comment on above: Performed By: #### G , BMP #### [address] [address] CBCon 02-21-2025 Erythrocyte distribution width (RBC) [Ratio] 13.0 % Normal 11.5-15.5 [facility] Comment on above: Performed By: #### G , BMP #### [address] [address] Hematocrit (Bld) [Volume fraction] 42.0 % Normal 34.0-46.0 [facility] Comment on above: Performed By: #### G , BMP #### [address] [address] Hgb 14.6 G/dL Normal 12.0-16.0 [facility] Comment on above: Performed By: #### G FR, BMP #### [address] [address] MCH (RBC) [Entitic mass] 31.4 pg Normal 27.0-33.0 [facility] Comment on above: Performed By: #### G FR, BMP #### [address] [address] MCHC 34.8 G/dL Normal 32.0-36.0 [facility] Comment on above: Performed By: #### G FR, BMP #### [address] [place], [place] [address] MCV (RBC) [Entitic vol] 90.1 fL Normal 80.0-99.0 [facility] Comment on above: Performed By: #### Ingris YATES, BMP #### [address] [place], [place] [address] Platelet 119 10 3/mcL Low 150-450 [facility] Comment on above: Performed By: #### Ingris YATES, BMP #### [address] [place], [place] [address] Platelet mean volume (Bld) [Entitic vol] 9.3 fL Normal 6.6-10.5 [facility] Comment on above: Performed By: #### Ingris YATES, BMP #### [address] [address] RBC 4.66 10 6/mcL Normal 4.10-5.30 [facility] Comment on above: Performed By: #### Ingris YATES, BMP #### [address] [address] WBC 5.0 10 3/mcL Normal 4.5-10.8 [facility] Comment on above: Performed By: #### Ingris YATES, BMP #### [address] [address] LABORATORYOrdered By: SYSTEM SYSTEM on 02-21-2025 Basophils [...] B (Bld) [Mass/Vol] 244 pg/mL Normal 0-450 [facility] Comment on above: Result Comment: NT-p roBNP results of less than 300 pg/mL effectively rules out acute congestive heart failure with 99% negative predictive value. Performed By: #### G , BMP #### [address] [address] .GFRon 01-09-2025 Estimated Glomerular Filtration Rate 80 ml/min/1.73sqm Normal [facility] Comment on above: Result Comment: Stages of [...] Performed By: #### Ingris YATES, BMP #### [address] [address] A1Con 01-09-2025 Glucose [Mass/Vol] 140 mg/dL Normal [facility] Comment on above: Result Comment: [place] mated Average Glucose calculated by equation ((28.7xA1C)-46.7) Estimated average glucose (eAG) is a calculated value from Hemoglobin A1C and is industrial sales representative of the average blood glucose level in the last 2-3 month period. Normal range: less than 114 mg/dL Performed By: #### Ingris YATES, BMP #### [address] [address] HbA1c (Bld) [Mass fraction] 6.5 % High 4.3-6.4 [facility] Comment on above: Performed By: #### Ingris YATES, BMP #### [address] [address] CMPon 01-09-2025 ALT [Catalytic activity/Vol] 12 U/L Low 14-59 [facility] Comment on above: Performed By: #### Ingris YATES, BMP #### [address] [address] Albumin Level 3.4 G/dL Normal 3.4-4.8 [facility] Comment on above: Performed By: #### Ingris YATES, BMP #### [address] [address] Albumin/Globulin [Mass ratio] 1.2 {ratio} Normal 1.1-2.5 [facility] Comment on above: Performed By: #### Ingris YATES, BMP #### [address] [place] [address] ALP [Catalytic activity/Vol] 68 U/L Normal 40-135 [facility] Comment on above: Performed By: #### Ingris YATES, BMP #### [address] [address] AST [Catalytic activity/Vol] 19 U/L Normal 10-40 [facility] Comment on above: Performed By: #### G , BMP #### [address] [address] Bili Total 0.5 mg/dL Normal 0.2-1.0 [facility] Comment on above: Result Comment: Use of this assay is not recommended for patients undergoing treatment with eltrombopag due to the potential for falsely elevated results. Performed By: #### Ingris YATES, BMP #### [address] [address] BUN/Creatinine Ratio 12 ratio Normal 7-27 [facility] Comment on above: Performed By: #### Ingris YATES, BMP #### [address] [address] Calcium [Mass/Vol] 8.9 mg/dL Normal 8.4-10.2 [facility] Comment on above: Performed By: #### Ingris YATES, BMP #### [address] [address] Chloride [Moles/Vol] 105 mmol/L Normal 98-107 [facility] Comment on above: Performed By: #### Ingris YATES, BMP #### [address] [address] CO2 [Moles/Vol] 30 mmol/L Normal 23-31 [facility] Comment on above: Performed By: #### G , BMP #### [address] [address] Creatinine [Mass/Vol] 0.77 mg/dL Normal 0.51-0.95 [facility] Comment on above: Performed By: #### G , BMP #### [address] [address] Electrolyte Balance 7.0 mEq/L Normal 4.0-15.0 [facility] Comment on above: Performed By: #### G , BMP #### [address] [address] Globulin 2.9 G/dL Normal 2.7-4.4 [facility] Comment on above: Performed By: #### G , BMP #### [address] [address] Glucose [Mass/Vol] 122 mg/dL High 83-110 [facility] Comment on above: Performed By: #### G , BMP #### [address] [address] Potassium [Moles/Vol] 3.2 mmol/L Low 3.5-5.1 [facility] Comment on above: Performed By: #### Ingris YATES, BMP #### [address] [address] Sodium [Moles/Vol] 142 mmol/L Normal 136-145 [facility] Comment on above: Performed By: #### Ingris YATES, BMP #### [address] [address] Total Protein 6.3 G/dL Low 6.4-8.2 [facility] Comment on above: Performed By: #### Ingris YATES, BMP #### [address] [address] Urea nitrogen [Mass/Vol] 9 mg/dL Normal 7-18 [facility] Comment on above: Performed By: #### G , BMP #### [address] [address] FT3on 01-09-2025 Free T3 [Mass/Vol] 2.25 pg/mL Low 2.30-4.00 [facility] Comment on above: Performed By: #### G , BMP #### [address] [address] LABORATORYOrdered By: Neida Sarabia on 01-09-2025 Albumin [...] calculated value from Hemoglobin A1C and is industrial sales representative of the average blood glucose level in [...] 01-09-2025 Cholesterol [Mass/Vol] 137 mg/dL Normal 0-200 [facility] Comment on above: Result Comment: Chol esterol Reference Interval: Less than 200 Desirable 200-239 Borderline high risk 240 and above High risk Performed By: #### G , BMP #### [address] [address] Cholesterol in HDL [Mass/Vol] 48 mg/dL Normal 40-60 [facility] Comment on above: Performed By: #### G FR, BMP #### [address] [address] Cholesterol in LDL [Mass/Vol] 69 mg/dL Normal 0-130 [facility] Comment on above: Performed By: #### G , BMP #### [address] [address] Triglyceride [Mass/Vol] 100 mg/dL Normal 0-150 [facility] Comment on above: Result Comment: Trig lyceride Reference Interval: Less than 150 Normal 150-199 Borderline high risk 200-499 High risk 500 or higher Very high risk Performed By: #### G FR, BMP #### [address] [address] MALBRon 01-09-2025 U Creatinine 48.2 mg/dL Normal 29.0-226.0 [facility] Comment on above: Performed By: #### G FR, BMP #### [address] [address] U Microalb 7.4 mg/L Normal [facility] Comment on above: Performed By: #### G FR, BMP #### [address] [address] U Ratio Alb/Cre 15 mg/G Normal 0-30 [facility] Comment on above: Performed By: #### G , BMP #### [address] [address] TSHon 01-09-2025 TSH Qn 2.48 m[IU]/L Normal 0.36-3.74 [facility] Comment on above: Performed By: #### G , BMP #### [address] [address] VIDHon 01-09-2025 Vit. D 25-Hydroxy 31.1 ng/mL Normal [facility] Comment on above: Result Comment: Inte rpretive Values Based on Total 25(OH) Vitamin D: Deficient <20 ng/mL Insufficient 20 - <30 ng/mL Sufficient 30-100 ng/mL Performed By: #### G , BMP #### [address] [address] XR SPINE LUMBAR W/OBLIQUES 4 VIEWSon 10-14-2024 [...] 10/14/2024 10:02:10 AM Ordering Provider: MATHIEU Lacy [facility] .Auto Diffon 10-12-2024 Basophil, Absolute 0.0 10 3/mcL Normal 0.0-0.2 [facility] Comment on above: Performed By: #### C BC, ANEU, ADIFF #### [address] [address] Basophils/100 WBC (Bld) 1.2 % Normal 0.0-2.5 [facility] Comment on above: Performed By: #### C BC, ANEU, ADIFF #### [address] [address] Eosinophil, Absolute 0.0 10 3/mcL Normal 0.0-0.7 [facility] Comment on above: Performed By: #### C BC, ANEU, ADIFF #### [address] [address] Eosinophils/100 WBC (Bld) 1.2 % Normal 0.0-7.0 [facility] Comment on above: Performed By: #### C BC, ANEU, ADIFF #### [address] [address] Lymphocyte, Absolute 1.3 10 3/mcL Normal 0.9-4.3 [facility] Comment on above: Performed By: #### C BC, ANEU, ADIFF #### [address] [address] Lymphocytes/100 WBC (Bld) 32.3 % Normal 20.0-40.0 [facility] Comment on above: Performed By: #### C BC, ANEU, ADIFF #### [address] [address] Monocyte, Absolute 0.4 10 3/mcL Normal 0.1-1.4 [facility] Comment on above: Performed By: #### C BC, ANEU, ADIFF #### [address] [address] Monocytes/100 WBC (Bld) 9.2 % Normal 2.0-13.0 [facility] Comment on above: Performed By: #### C BC, ANEU, ADIFF #### [address] [address] Neutrophils/100 WBC (Bld) 56.1 % Normal 50.0-75.0 [facility] Comment on above: Performed By: #### C BC, ANEU, ADIFF #### [address] [address] .NEUABSon 10-12-2024 Neutrophil, Absolute 2.3 10 3/mcL Normal 2.3-8.1 [facility] Comment on above: Performed By: #### G FR, BMP #### [place] [address] CBCon 10-12-2024 Erythrocyte distribution width (RBC) [Ratio] 13.4 % Normal 11.5-15.5 [facility] Comment on above: Performed By: #### C BC, ANEU, ADIFF #### [place] [address] Hematocrit (Bld) [Volume fraction] 43.4 % Normal 34.0-46.0 [facility] Comment on above: Performed By: #### C BC, ANEU, ADIFF #### [place] [address] Hgb 14.6 G/dL Normal 12.0-16.0 [facility] Comment on above: Performed By: #### C BC, ANEU, ADIFF #### [place] [address] MCH (RBC) [Entitic mass] 31.1 pg Normal 27.0-33.0 [facility] Comment on above: Performed By: #### C BC, ANEU, ADIFF #### [place] [address] MCHC 33.7 G/dL Normal 32.0-36.0 [facility] Comment on above: Performed By: #### C BC, ANEU, ADIFF #### [place] [address] MCV (RBC) [Entitic vol] 92.4 fL Normal 80.0-99.0 [facility] Comment on above: Performed By: #### C EDWARD ROCHA, ADIFF #### [address] [place], [place] [address] Platelet 127 10 3/mcL Low 150-450 [facility] Comment on above: Performed By: #### C EDWARD ROCHA, ADIFF #### [address] [place], [place] [address] Platelet mean volume (Bld) [Entitic vol] 9.4 fL Normal 6.6-10.5 [facility] Comment on above: Performed By: #### C EDWARD ROCHA, ADIFF #### [address] [place], [place] [address] RBC 4.70 10 6/mcL Normal 4.10-5.30 [facility] Comment on above: Performed By: #### C EDWARD ROCHA, ADIFF #### [address] [place], [place] [address] WBC 4.2 10 3/mcL Low 4.5-10.8 [facility] Comment on above: Performed By: #### C EDWARD ROCHA, ADIFF #### [address] [address] LABORATORYOrdered By: SYSTEM SYSTEM on 10-12-2024 Basophils [...] By: #### 9 1484 #### [facility] [address] [place] [address], [address] [place] [id number] [employer]illing Planer Operator: Duncan Mccormack MD Alphahydroxymidazolam Negative Normal <[address] [facility] Comment on above: Order Comment: FASTI NG: UNKNOWN Result Comment: See Note 1 Performed By: #### 9 1484 #### [facility] of [address], [address] [place] [address] [employer] Operator: Duncan Mccormack MD Alphahydroxytriazolam Negative Normal <[address] [facility] Comment on above: Order Comment: FASTI NG: UNKNOWN Result Comment: See Note 1 Performed By: #### 9 1484 #### [facility] of [address], [address] [place] [address] [employer] Operator: Duncan Mccormack MD Aminoclonazepam Negative Normal <25 [facility] Comment on above: Order Comment: FASTI NG: UNKNOWN Result Comment: See Note 1 Performed By: #### 9 1484 #### [facility] [address], [address] [place] [address] [employer]illing [employer] Operator: Duncan Mccormack MD Amphetamines Negative Normal <500 [facility] Comment on above: Order Comment: FASTI NG: UNKNOWN Performed By: #### 9 1484 #### [facility] [address], [address] [place] [address] [employer]illing [employer]er Operator: Duncan Mccormack MD Barbiturates Negative Normal <300 [facility] Comment on above: Order Comment: FASTI NG: UNKNOWN Performed By: #### 9 1484 #### [facility] of [address], [address] [place] [address] [employer]illing [employer] Operator: Duncan Mccormack MD Benzodiazepines Positive Abnormal <100 [facility] Comment on above: Order Comment: FASTI NG: UNKNOWN Performed By: #### 9 1484 #### [facility] of [address], [address] [place] [address] [employer] Operator: Duncan Mccormack MD Buprenorphine Negative Normal <5 [facility] Comment on above: Order Comment: FASTI NG: UNKNOWN Performed By: #### 9 1484 #### [facility] of [address], [address] [place] [address] [employer]illing [employer] Operator: Duncan Mccormack MD Cocaine Metabolite Negative Normal <150 [facility] Comment on above: Order Comment: FASTI NG: UNKNOWN Performed By: #### 9 1484 #### [facility] [address], [address] [place] [address] [employer] Operator: Duncan Mccormack MD Codeine Negative Normal <50 [facility] Comment on above: Order Comment: FASTI NG: UNKNOWN Result Comment: See Note 1 Performed By: #### 9 1484 #### [facility] [place] [address] Milling Planer Operator: Duncan Mccormack MD COMMENT Normal [facility] Comment on above: Order Comment: FASTI NG: UNKNOWN Result Comment: See Note 2 Note 1 This test was developed and its analytical performance characteristics have been determined by [employer]. It has not been cleared or approved [...] interpreting these drug results, please contact a [employer] [facility] Toxicology Specialist: [phone] ( ), M-F, 8am-6pm EST. Performed By: #### 9 1484 #### [facility] [address], [address] [place] [address] [employer]illing [employer] Operator: Duncan Mccormack MD Heroin Metabolite Negative Normal <10 [facility] Comment on above: Order Comment: FASTI NG: UNKNOWN Performed By: #### 9 1484 #### [facility] [place] [address] Milling Planer Operator: Duncan Mccormack MD Hydrocodone 395 ng/mL High <50 [facility] Comment on above: Order Comment: FASTI NG: UNKNOWN Result Comment: See Note 1 Performed By: #### 9 1484 #### [facility] [place] [address] Milling Planer Operator: Duncan Mccormack MD Hydromorphone 69 ng/mL High <50 [facility] Comment on above: Order Comment: FASTI NG: UNKNOWN Result Comment: See Note 1 Performed By: #### 9 1484 #### [facility] of [address], [address] [place] [address] [employer] Operator: uDncan Mccormack MD Hydroxyethylflurazepam Negative Normal <50 [facility] Comment on above: Order Comment: FASTI NG: UNKNOWN Result Comment: See Note 1 Performed By: #### 9 1484 #### [facility] of [address], [address] [place] [address] Milling Planer Operator: Duncan Mccormack MD Lorazepam Negative Normal <50 [facility] Comment on above: Order Comment: FASTI NG: UNKNOWN Result Comment: See Note 1 Performed By: #### 9 1484 #### [facility] of [place] [address] Milling Planer Operator: Duncan Mccormack MD Marijuana Metabolite 20 Negative Normal <20 [facility] Comment on above: Order Comment: FASTI NG: UNKNOWN Performed By: #### 9 1484 #### [facility] of [place] [address] Milling Planer Operator: Duncan Mccormack MD Methadone Metabolite Negative Normal <100 [facility] Comment on above: Order Comment: FASTI NG: UNKNOWN Performed By: #### 9 1484 #### [facility] of [place] [address] Milling Planer Operator: Duncan Mccormack MD Morphine Negative Normal <50 [facility] Comment on above: Order Comment: FASTI NG: UNKNOWN Result Comment: See Note 1 Performed By: #### 9 1484 #### [facility] of [place] [address] Milling Planer Operator: Duncan Mccormack MD Nordiazepam Negative Normal <50 [facility] Comment on above: Order Comment: FASTI NG: UNKNOWN Result Comment: See Note 1 Performed By: #### 9 1484 #### [facility] of [address], [address] [place] [address] [employer]illing [employer]er Operator: Dnucan Mccormack MD Norhydrocodone 851 ng/mL High <50 [facility] Comment on above: Order Comment: FASTI NG: UNKNOWN Result Comment: See Note 1 Performed By: #### 9 1484 #### [facility] of [address], [address] [place] [address] [employer]illing [employer]er Operator: Duncan Mccormack MD Opiates Positive Abnormal <100 [facility] Comment on above: Order Comment: FASTI NG: UNKNOWN Performed By: #### 9 1484 #### [facility] of [address], [address] [place] [address] [employer]illing [employer]er Operator: Duncan Mccormack MD Oxazepam Negative Normal <50 [facility] Comment on above: Order Comment: FASTI NG: UNKNOWN Result Comment: See Note 1 Performed By: #### 9 1484 #### [facility] of [place] [address] Milling Planer Operator: Duncan Mccormack MD Oxycodone Negative Normal <100 [facility] Comment on above: Order Comment: FASTI NG: UNKNOWN Performed By: #### 9 1484 #### [facility] of [place] [address] Milling [employer]er Operator: Duncan Mccormack MD Phencyclidine Negative Normal <25 [facility] Comment on above: Order Comment: FASTI NG: UNKNOWN Performed By: #### 9 1484 #### [facility] of [place] [address] Milling [employer]er Operator: Duncan Mccormack MD Temazepam Negative Normal <50 [facility] Comment on above: Order Comment: FASTI NG: UNKNOWN Result Comment: See Note 1 Performed By: #### 9 1484 #### [facility] [place] [address] Milling Planer Operator: Duncan Mccormack MD .GFRon 09-05-2024 GFR 72 ml/min/1.73sqm Normal [facility] Comment on above: Result Comment: GFR Population [...] Performed By: #### G , BMP #### [address] [address] GFR Non- 59 ml/min/1.73sqm Normal [facility] Comment on above: Result Comment: GFR Population [...] Performed By: #### G , BMP #### [address] [address] A1Con 09-05-2024 Glucose [Mass/Vol] 128 mg/dL Normal [facility] Comment on above: Result Comment: [place] mated Average Glucose calculated by equation ((28.7xA1C)-46.7) Estimated average glucose (eAG) is a calculated value from Hemoglobin A1C and is industrial sales representative of the average blood glucose level in the last 2-3 month period. Normal range: less than 114 mg/dL Performed By: #### G , BMP #### [address] [address] HbA1c (Bld) [Mass fraction] 6.1 % Normal 4.3-6.4 [facility] Comment on above: Performed By: #### G , BMP #### [address] [address] CMPon 09-05-2024 Albumin Level 3.5 G/dL Normal 3.4-4.8 [facility] Comment on above: Performed By: #### G , BMP #### [address] [address] Albumin/Globulin [Mass ratio] 1.2 {ratio} Normal 1.1-2.5 [facility] Comment on above: Performed By: #### Ingris YATES, BMP #### [address] [address] ALP [Catalytic activity/Vol] 81 U/L Normal 40-135 [facility] Comment on above: Performed By: #### Ingris YATES, BMP #### [address] [address] ALT [Catalytic activity/Vol] 16 U/L Normal 14-59 [facility] Comment on above: Performed By: #### Ingris YATES, BMP #### [address] [address] AST [Catalytic activity/Vol] 18 U/L Normal 10-40 [facility] Comment on above: Performed By: #### Ingris YATES, BMP #### [address] [address] Bili Total 0.7 mg/dL Normal 0.2-1.0 [facility] Comment on above: Result Comment: Use of this assay is not recommended for patients undergoing treatment with eltrombopag due to the potential for falsely elevated results. Performed By: #### G , BMP #### [address] [address] BUN/Creatinine Ratio 12 ratio Normal 7-27 [facility] Comment on above: Performed By: #### Ingris YATES, BMP #### [address] [address] Calcium [Mass/Vol] 9.2 mg/dL Normal 8.4-10.2 [facility] Comment on above: Performed By: #### G FR, BMP #### [address] [address] Chloride [Moles/Vol] 105 mmol/L Normal 98-107 [facility] Comment on above: Performed By: #### G FR, BMP #### [address] [address] CO2 [Moles/Vol] 34 mmol/L High 23-31 [facility] Comment on above: Performed By: #### G FR, BMP #### [address] [address] Creatinine [Mass/Vol] 0.92 mg/dL Normal 0.55-1.02 [facility] Comment on above: Result Comment: Test ing performed on Siemens Dimension EXL analyzer using a modified kinetic Michael technique. Performed By: #### G , BMP #### [address] [address] Electrolyte Balance 6.0 mEq/L Normal 4.0-15.0 [facility] Comment on above: Performed By: #### G , BMP #### [address] [address] Globulin 2.9 G/dL Normal [facility] Comment on above: Performed By: #### G FR, BMP #### [address] [address] Glucose [Mass/Vol] 118 mg/dL High 83-110 [facility] Comment on above: Performed By: #### G FR, BMP #### [address] [address] Potassium [Moles/Vol] 4.0 mmol/L Normal 3.5-5.1 [facility] Comment on above: Performed By: #### G FR, BMP #### [address] [address] Sodium [Moles/Vol] 145 mmol/L Normal 136-145 [facility] Comment on above: Performed By: #### G FR, BMP #### [address] [address] Total Protein 6.4 G/dL Normal 6.4-8.2 [facility] Comment on above: Performed By: #### G FR, BMP #### [address] [address] Urea nitrogen [Mass/Vol] 11 mg/dL Normal 7-18 [facility] Comment on above: Performed By: #### G , BMP #### [address] [address] FT3on 09-05-2024 Free T3 [Mass/Vol] 1.98 pg/mL Low 2.30-4.00 [facility] Comment on above: Performed By: #### G , BMP #### [address] [address] FT4on 09-05-2024 Free T4 [Mass/Vol] 1.13 ng/dL Normal 0.76-1.46 [facility] Comment on above: Performed By: #### Ingris , BMP #### [address] [address] LABORATORYOrdered By: Wisam Perez on 09-05-2024 Albumin [...] calculated value from Hemoglobin A1C and is industrial sales representative of the average blood glucose level in [...] 09-05-2024 Cholesterol [Mass/Vol] 174 mg/dL Normal 0-200 [facility] Comment on above: Result Comment: Chol esterol Reference Interval: Less than 200 Desirable 200-239 Borderline high risk 240 and above High risk Performed By: #### G FR, BMP #### [address] [address] Cholesterol in HDL [Mass/Vol] 43 mg/dL Normal 40-60 [facility] Comment on above: Performed By: #### G FR, BMP #### [address] [address] Cholesterol in LDL [Mass/Vol] 115 mg/dL Normal 0-130 [facility] Comment on above: Performed By: #### G FR, BMP #### [address] [address] Triglyceride [Mass/Vol] 80 mg/dL Normal 0-150 [facility] Comment on above: Result Comment: Trig lyceride Reference Interval: Less than 150 Normal 150-199 Borderline high risk 200-499 High risk 500 or higher Very high risk Performed By: #### G FR, BMP #### [address] [address] MALBRon 09-05-2024 U Creatinine 79.8 mg/dL Normal [facility] Comment on above: Performed By: #### G , BMP #### [address] [address] U Microalb 200 mcg/dL Normal [facility] Comment on above: Performed By: #### G , BMP #### [address] [address] U Ratio Alb/Cre 2 mcg/mg Normal 0-30 [facility] Comment on above: Performed By: #### Ingris YATES, BMP #### [address] [address] TSHon 09-05-2024 TSH Qn 1.76 m[IU]/L Normal 0.36-3.74 [facility] Comment on above: Performed By: #### Ingris YATES, BMP #### [address] [address] VIDHon 09-05-2024 Vit. D 25-Hydroxy 35.4 ng/mL Normal [facility] Comment on above: Result Comment: Inte rpretive Values Based on Total 25(OH) Vitamin D: Deficient <20 ng/mL Insufficient 20 - <30 ng/mL Sufficient 30-100 ng/mL Performed By: #### Ingris YATES, BMP #### [address] [address] [place] MAMMOGRAM SCREENING BILAT ERAL W/TOMOon 08-31-2024 MA MAMMOGRAM SCREENING BILATERAL W/NATO ORIGINAL FROM: [address] [address] PROCEDURE FOR: RAGHAV GREGORY [address] [place] [id number] Home: PID#: [id number] Exam#: [id number] : 1950 Age: 74 TO: MATHIEU ROLAND DO [address] [place] [address] Fax: NO FAX EXAMINATION: SCREENING DIGITAL BILATERAL [...] screening with annual mammograms is recommended. [facility] risk calculations, generated with the history provided, [...] addition to annual mammographic screening per the [employer]. BIRADS: BI-RADS: 2: Benign RECALL: 1 year screening RECALL TYPE: mammo LETTER SENT: Normal BI-RADS 1 and 2 Interpreted by: Eder Victoria MD Preliminary Report By: Eder Victoria MD Electronically signed By Eder Victoria MD Dictated Date: 08/31/2024 5:04:35 PM Prelim Date: 08/31/2024 5:06:44 PM Sign Date: 08/31/2024 5:06:44 PM Ordering Provider: MATHIEU ROLAND Supervisor Remelt: STACI QUIROS RT(R)(CT) letter sent: Normal BI-RADS 1 and 2 Mammogram BI-RADS: 2 Benign Normal [facility] BD BONE DENSITY DEXA AXIAL S EDDIEon 08-30-2024 BD BONE DENSITY DEXA AXIAL SKELETON ORIGINAL EXAMINATION: BONE DENSITOMETRY 08/30/2024 6:00 am TECHNIQUE: A bone density dual x-ray absorptiometry (DEXA) scan was performed of the spine and left hip on a HoloEchoPixel system. COMPARISON: 06/02/2022 HISTORY: ORDERING SYSTEM PROVIDED [...] 08/30/2024 11:29:37 AM Ordering Provider: MATHIEU ROLAND [facility] CT HEAD OR BRAIN W/O CONTRAS Ton [...] 08/29/2024 2:35:35 PM Ordering Provider: MATHIEU ROLAND [facility] DRUG TOX MONITORING 4 W/CONF , URINEon 03-21-2024 Alphahydroxyalprazolam 298 ng/mL High <25 [facility] Comment on above: Order Comment: FASTI NG: UNKNOWN Result Comment: See Note 1 Performed By: #### 9 1484 #### [facility] [address], [address] [place] [address] Milling Planer Operator: Duncan Mccormack MD Alphahydroxymidazolam Negative Normal <[address] [facility] Comment on above: Order Comment: FASTI NG: UNKNOWN Result Comment: See Note 1 Performed By: #### 9 1484 #### [facility] [place] [address] Milling Planer Operator: Duncan Mccormack MD Alphahydroxytriazolam Negative Normal <[address] [facility] Comment on above: Order Comment: FASTI NG: UNKNOWN Result Comment: See Note 1 Performed By: #### 9 1484 #### [facility] [place] [address] Milling Planer Operator: Duncan Mccormack MD Aminoclonazepam Negative Normal <25 [facility] Comment on above: Order Comment: FASTI NG: UNKNOWN Result Comment: See Note 1 Performed By: #### 9 1484 #### [facility] [place] [address] Milling Planer Operator: Duncan Mccormack MD Amphetamines Negative Normal <500 [facility] Comment on above: Order Comment: FASTI NG: UNKNOWN Performed By: #### 9 1484 #### [facility] [place] [address] Milling Planer Operator: Duncan Mccormack MD Barbiturates Negative Normal <300 [facility] Comment on above: Order Comment: FASTI NG: UNKNOWN Performed By: #### 9 1484 #### [facility] [place] [address] Milling Planer Operator: Duncan Mccormack MD Benzodiazepines Positive Abnormal <100 [facility] Comment on above: Order Comment: FASTI NG: UNKNOWN Performed By: #### 9 1484 #### [facility] [address], [address] [place] [address] Milling Planer Operator: Duncan Mccormack MD Buprenorphine Negative Normal <5 [facility] Comment on above: Order Comment: FASTI NG: UNKNOWN Performed By: #### 9 1484 #### [facility] [address], [address] [place] [address] Milling Planer Operator: Duncan Mccormack MD Cocaine Metabolite Negative Normal <150 [facility] Comment on above: Order Comment: FASTI NG: UNKNOWN Performed By: #### 9 1484 #### [facility] [address], [address] [place] [address] Milling Planer Operator: Duncan Mccormack MD Codeine Negative Normal <50 [facility] Comment on above: Order Comment: FASTI NG: UNKNOWN Result Comment: See Note 1 Performed By: #### 9 1484 #### [facility] [address], [address] [place] [address] Milling Planer Operator: Duncan Mccormack MD COMMENT Normal [facility] Comment on above: Order Comment: FASTI NG: UNKNOWN Result Comment: See Note 2 Note 1 This test was developed and its analytical performance characteristics have been determined by [employer]. It has not been cleared or approved [...] interpreting these drug results, please contact a [employer] Toxicology Specialist: [phone] ( ), M-F, 8am-6pm EST. Performed By: #### 9 1484 #### [facility] [address], [address] [place] [address] Milling Planer Operator: Duncan Mccormack MD Heroin Metabolite Negative Normal <10 [facility] Comment on above: Order Comment: FASTI NG: UNKNOWN Performed By: #### 9 1484 #### [facility] [address], [address] [place] [address] Milling Planer Operator: Duncan Mccormack MD Hydrocodone 689 ng/mL High <50 [facility] Comment on above: Order Comment: FASTI NG: UNKNOWN Result Comment: See Note 1 Performed By: #### 9 1484 #### [facility] [place] [address] Milling Planer Operator: Duncan Mccormack MD Hydromorphone 187 ng/mL High <50 [facility] Comment on above: Order Comment: FASTI NG: UNKNOWN Result Comment: See Note 1 Performed By: #### 9 1484 #### [facility] [place] [address] Milling Planer Operator: Duncan Mccormack MD Hydroxyethylflurazepam Negative Normal <50 [facility] Comment on above: Order Comment: FASTI NG: UNKNOWN Result Comment: See Note 1 Performed By: #### 9 1484 #### [facility] [place] [address] Milling Planer Operator: Duncan Mccormack MD Lorazepam Negative Normal <50 [facility] Comment on above: Order Comment: FASTI NG: UNKNOWN Result Comment: See Note 1 Performed By: #### 9 1484 #### [facility] [place] [address] Milling Planer Operator: Duncan Mccormack MD Marijuana Metabolite 20 Negative Normal <20 [facility] Comment on above: Order Comment: FASTI NG: UNKNOWN Performed By: #### 9 1484 #### [facility] [place] [address] Milling Planer Operator: Duncan Mccormack MD Methadone Metabolite Negative Normal <100 [facility] Comment on above: Order Comment: FASTI NG: UNKNOWN Performed By: #### 9 1484 #### [facility] [place] [address] Milling Planer Operator: Duncan Mccormack MD Morphine Negative Normal <50 [facility] Comment on above: Order Comment: FASTI NG: UNKNOWN Result Comment: See Note 1 Performed By: #### 9 1484 #### [facility] [address], [address] [place], [place] [id number] Milling Planer Operator: Duncan Mccormack MD Nordiazepam Negative Normal <50 [facility] Comment on above: Order Comment: FASTI NG: UNKNOWN Result Comment: See Note 1 Performed By: #### 9 1484 #### [facility] [address], [address] [place] [address] Milling Planer Operator: Duncan Mccormack MD Norhydrocodone 1360 ng/mL High <50 [facility] Comment on above: Order Comment: FASTI NG: UNKNOWN Result Comment: See Note 1 Performed By: #### 9 1484 #### [facility] [address], [address] [place] [address] Milling Planer Operator: Duncan Mccormack MD Opiates Positive Abnormal <100 [facility] Comment on above: Order Comment: FASTI NG: UNKNOWN Performed By: #### 9 1484 #### [facility] [address], [address] [place], [place] [id number] Milling Planer Operator: Duncan Mccormack MD Oxazepam Negative Normal <50 [facility] Comment on above: Order Comment: FASTI NG: UNKNOWN Result Comment: See Note 1 Performed By: #### 9 1484 #### [facility] [address], [address] [place], [place] [id number] Milling Planer Operator: Duncan Mccormack MD Oxycodone Negative Normal <100 [facility] Comment on above: Order Comment: FASTI NG: UNKNOWN Performed By: #### 9 1484 #### [facility] [address], [address] [place], [place] [id number] Milling Planer Operator: Duncan Mccormack MD Phencyclidine Negative Normal <25 [facility] Comment on above: Order Comment: FASTI NG: UNKNOWN Performed By: #### 9 1484 #### [facility] [address], [address] [place], [place] [id number] Milling Planer Operator: Duncan Mccormack MD Temazepam Negative Normal <50 [facility] Comment on above: Order Comment: FASTI NG: UNKNOWN Result Comment: See Note 1 Performed By: #### 9 1484 #### [facility] [address] [facility], [address] [place] [address] Milling Planer Operator: Duncan Mccormack MD .GFRon 02-29-2024 GFR 93 ml/min/1.73sqm Normal [facility] ([place]) Comment on above: Result Comment: GFR Population [...] VIDH, FT4, A1C, GFR, TSH #### [place] [address] [address] GFR Non- 77 ml/min/1.73sqm Normal [facility] ([place]) Comment on above: Result Comment: GFR Population [...] LIPID, VIDH, FT4, A1C, GFR, TSH #### [place] [address] A1Con 02-29-2024 HbA1c (Bld) [Mass fraction] 6.6 % High 4.3-6.4 [facility] ([place]) Comment on above: Performed By: #### C MP, LIPID, VIDH, FT4, A1C, GFR, TSH #### [address] [address] CMPon 02-29-2024 Albumin Level 3.7 G/dL Normal 3.4-4.8 [facility] ([place]) Comment on above: Performed By: #### C MP, LIPID, VIDH, FT4, A1C, GFR, TSH #### [address] [address] Albumin/Globulin [Mass ratio] 1.3 {ratio} Normal 1.1-2.5 [facility] ([place]) Comment on above: Performed By: #### C MP, LIPID, VIDH, FT4, A1C, GFR, TSH #### [address] [address] ALP [Catalytic activity/Vol] 54 U/L Normal 40-135 [facility] ([place]) Comment on above: Performed By: #### C MP, LIPID, VIDH, FT4, A1C, GFR, TSH #### [address] [address] ALT [Catalytic activity/Vol] 29 U/L Normal 14-59 [facility] ([place]) Comment on above: Performed By: #### C MP, LIPID, VIDH, FT4, A1C, GFR, TSH #### [address] [address] AST [Catalytic activity/Vol] 30 U/L Normal 10-40 [facility] ([place]) Comment on above: Performed By: #### C MP, LIPID, VIDH, FT4, A1C, GFR, TSH #### [address] [address] Bili Total 0.6 mg/dL Normal 0.2-1.0 [facility] ([place]) Comment on above: Result Comment: Use of this assay is not recommended for patients undergoing treatment with eltrombopag due to the potential for falsely elevated results. Performed By: #### C MP, LIPID, VIDH, FT4, A1C, GFR, TSH #### [address] [address] BUN/Creatinine Ratio 16 ratio Normal 7-27 [facility] ([place]) Comment on above: Performed By: #### C MP, LIPID, VIDH, FT4, A1C, GFR, TSH #### [address] [address] Calcium [Mass/Vol] 9.2 mg/dL Normal 8.4-10.2 [facility] ([place]) Comment on above: Performed By: #### C MP, LIPID, VIDH, FT4, A1C, GFR, TSH #### [address] [address] Chloride [Moles/Vol] 95 mmol/L Low 98-107 [facility] ([place]) Comment on above: Performed By: #### C MP, LIPID, VIDH, FT4, A1C, GFR, TSH #### [address] [address] CO2 [Moles/Vol] 34 mmol/L High 23-31 [facility] ([place]) Comment on above: Performed By: #### C MP, LIPID, VIDH, FT4, A1C, GFR, TSH #### [address] [address] Creatinine [Mass/Vol] 0.74 mg/dL Normal 0.55-1.02 [facility] ([place]) Comment on above: Performed By: #### C MP, LIPID, VIDH, FT4, A1C, GFR, TSH #### [address] [address] Electrolyte Balance 5.0 mEq/L Normal 4.0-15.0 [facility] ([place]) Comment on above: Performed By: #### C MP, LIPID, VIDH, FT4, A1C, GFR, TSH #### [address] [address] Globulin 2.8 G/dL Normal [facility] ([place]) Comment on above: Performed By: #### C MP, LIPID, VIDH, FT4, A1C, GFR, TSH #### [address] [address] Glucose [Mass/Vol] 123 mg/dL High 83-110 [facility] ([place]) Comment on above: Performed By: #### C MP, LIPID, VIDH, FT4, A1C, GFR, TSH #### [place] [address] [address] Potassium [Moles/Vol] 3.7 mmol/L Normal 3.5-5.1 [facility] ([place]) Comment on above: Performed By: #### C MP, LIPID, VIDH, FT4, A1C, GFR, TSH #### [address] [address] Sodium [Moles/Vol] 134 mmol/L Low 136-145 [facility] ([place]) Comment on above: Performed By: #### C MP, LIPID, VIDH, FT4, A1C, GFR, TSH #### [address] [address] Total Protein 6.5 G/dL Normal 6.4-8.2 [facility] ([place]) Comment on above: Performed By: #### C MP, LIPID, VIDH, FT4, A1C, GFR, TSH #### [address] [address] Urea nitrogen [Mass/Vol] 12 mg/dL Normal 7-18 [facility] ([place]) Comment on above: Performed By: #### C MP, LIPID, VIDH, FT4, A1C, GFR, TSH #### [address] [address] FT3on 02-29-2024 Free T3 [Mass/Vol] 1.97 pg/mL Low 2.30-4.00 [facility] ([place]) Comment on above: Performed By: #### C MP, LIPID, VIDH, FT4, A1C, GFR, TSH #### [facility] [address] [place], [place] [address] FT4on 02-29-2024 Free T4 [Mass/Vol] 1.31 ng/dL Normal 0.76-1.46 [facility] ([place]) Comment on above: Performed By: #### C MP, LIPID, VIDH, FT4, A1C, GFR, TSH #### [id number] [place], [place] [address] LABORATORYOrdered By: SYSTEM SYSTEM on 02-29-2024 25-hydroxyvitamin [...] 02-29-2024 Cholesterol [Mass/Vol] 121 mg/dL Normal 0-200 [facility] ([place]) Comment on above: Result Comment: Chol esterol Reference Interval: Less than 200 Desirable 200-239 Borderline high risk 240 and above High risk Performed By: #### C MP, LIPID, VIDH, FT4, A1C, GFR, TSH #### [address] [address] Cholesterol in HDL [Mass/Vol] 52 mg/dL Normal 40-60 [facility] ([place]) Comment on above: Performed By: #### C MP, LIPID, VIDH, FT4, A1C, GFR, TSH #### [place] [address] [place], [place] [address] Cholesterol in LDL [Mass/Vol] 50 mg/dL Normal 0-130 [facility] ([place] Comment on above: Performed By: #### C MP, LIPID, VIDH, FT4, A1C, GFR, TSH #### [address] [address] Triglyceride [Mass/Vol] 96 mg/dL Normal 0-150 [facility] ([place]) Comment on above: Result Comment: Trig lyceride Reference Interval: Less than 150 Normal 150-199 Borderline high risk 200-499 High risk 500 or higher Very high risk Performed By: #### C MP, LIPID, VIDH, FT4, A1C, GFR, TSH #### [place] [address] [place], [place] [address] TSHon 02-29-2024 TSH Qn 1.68 m[IU]/L Normal 0.36-3.74 [facility] ([place]) Comment on above: Performed By: #### C MP, LIPID, VIDH, FT4, A1C, GFR, TSH #### [address] [address] US THYROIDon 02-29-2024 US THYROID ORIGINAL EXAMINATION: [...] 02/29/2024 2:06:10 PM Ordering Provider: MARQUISE Lacy [facility] ([place]) Cele 02-29-2024 Vit. D 25-Hydroxy 37.0 ng/mL Normal [facility] ([place]) Comment on above: Result Comment: Inte rpretive Values Based on Total 25(OH) Vitamin D: Deficient <20 ng/mL Insufficient 20 - <30 ng/mL Sufficient 30-100 ng/mL Performed By: #### C MP, LIPID, VIDH, FT4, A1C, GFR, TSH #### [address] [address] .GFRon 10-20-2023 GFR Non- 48 ml/min/1.73sqm Normal [facility] ([place]) Comment on above: Result Comment: GFR Population [...] LIPID, VIDH, FT4, A1C, GFR, TSH #### [address] [address] GFR 58 ml/min/1.73sqm Normal [facility] ([place]) Comment on above: Result Comment: GFR Population [...] LIPID, VIDH, FT4, A1C, GFR, TSH #### [address] [address] A1Con 10-20-2023 HbA1c (Bld) [Mass fraction] 6.9 % High 4.3-6.4 [facility] ([place]) Comment on above: Performed By: #### C MP, LIPID, VIDH, FT4, A1C, GFR, TSH #### [address] [address] CMPon 10-20-2023 Albumin Level 3.7 G/dL Normal 3.4-4.8 [facility] ([place]) Comment on above: Performed By: #### C MP, LIPID, VIDH, FT4, A1C, GFR, TSH #### [address] [address] Albumin/Globulin [Mass ratio] 1.2 {ratio} Normal 1.1-2.5 [facility] ([place] Comment on above: Performed By: #### C MP, LIPID, VIDH, FT4, A1C, GFR, TSH #### [address] [address] ALP [Catalytic activity/Vol] 68 U/L Normal 40-135 [facility] ([place]) Comment on above: Performed By: #### C MP, LIPID, VIDH, FT4, A1C, GFR, TSH #### [address] [address] ALT [Catalytic activity/Vol] 14 U/L Normal 14-59 [facility] ([place]) Comment on above: Performed By: #### C MP, LIPID, VIDH, FT4, A1C, GFR, TSH #### [address] [address] AST [Catalytic activity/Vol] 11 U/L Normal 10-40 [facility] ([place]) Comment on above: Performed By: #### C MP, LIPID, VIDH, FT4, A1C, GFR, TSH #### [address] [address] Bili Total 0.5 mg/dL Normal 0.2-1.0 [facility] ([place]) Comment on above: Result Comment: Use of this assay is not recommended for patients undergoing treatment with eltrombopag due to the potential for falsely elevated results. Performed By: #### C MP, LIPID, VIDH, FT4, A1C, GFR, TSH #### [address] [address] BUN/Creatinine Ratio 15 ratio Normal 7-27 [facility] ([place]) Comment on above: Performed By: #### C MP, LIPID, VIDH, FT4, A1C, GFR, TSH #### [address] [address] Calcium [Mass/Vol] 9.5 mg/dL Normal 8.4-10.2 [facility] ([place]) Comment on above: Performed By: #### C MP, LIPID, VIDH, FT4, A1C, GFR, TSH #### [address] [address] Chloride [Moles/Vol] 97 mmol/L Low 98-107 [facility] ([place]) Comment on above: Performed By: #### C MP, LIPID, VIDH, FT4, A1C, GFR, TSH #### [address] [address] CO2 [Moles/Vol] 33 mmol/L High 23-31 [facility] ([place]) Comment on above: Performed By: #### C MP, LIPID, VIDH, FT4, A1C, GFR, TSH #### [address] [address] Creatinine [Mass/Vol] 1.11 mg/dL High 0.55-1.02 [facility] ([place]) Comment on above: Performed By: #### C MP, LIPID, VIDH, FT4, A1C, GFR, TSH #### [address] [address] Electrolyte Balance 8.0 mEq/L Normal 4.0-15.0 [facility] ([place]) Comment on above: Performed By: #### C MP, LIPID, VIDH, FT4, A1C, GFR, TSH #### [address] [address] Globulin 3.2 G/dL Normal [facility] ([place]) Comment on above: Performed By: #### C MP, LIPID, VIDH, FT4, A1C, GFR, TSH #### [address] [address] Glucose [Mass/Vol] 178 mg/dL High 83-110 [facility] ([place]) Comment on above: Performed By: #### C MP, LIPID, VIDH, FT4, A1C, GFR, TSH #### [address] [address] Potassium [Moles/Vol] 3.5 mmol/L Normal 3.5-5.1 [facility] ([place]) Comment on above: Performed By: #### C MP, LIPID, VIDH, FT4, A1C, GFR, TSH #### [address] [address] Sodium [Moles/Vol] 138 mmol/L Normal 136-145 [facility] ([place]) Comment on above: Performed By: #### C MP, LIPID, VIDH, FT4, A1C, GFR, TSH #### [address] [address] Total Protein 6.9 G/dL Normal 6.4-8.2 [facility] ([place]) Comment on above: Performed By: #### C MP, LIPID, VIDH, FT4, A1C, GFR, TSH #### [address] [address] Urea nitrogen [Mass/Vol] 17 mg/dL Normal 7-18 [facility] ([place]) Comment on above: Performed By: #### C MP, LIPID, VIDH, FT4, A1C, GFR, TSH #### [address] [address] FT4on 10-20-2023 Free T4 [Mass/Vol] 1.28 ng/dL Normal 0.76-1.46 [facility] ([place]) Comment on above: Performed By: #### C MP, LIPID, VIDH, FT4, A1C, GFR, TSH #### [address] [address] LABORATORYOrdered By: Latonya Pendleton on 10-20-2023 Albumin [...] 10-20-2023 Cholesterol [Mass/Vol] 205 mg/dL High 0-200 [facility] ([place]) Comment on above: Result Comment: Chol esterol Reference Interval: Less than 200 Desirable 200-239 Borderline high risk 240 and above High risk Performed By: #### C MP, LIPID, VIDH, FT4, A1C, GFR, TSH #### [address] [address] Cholesterol in HDL [Mass/Vol] 46 mg/dL Normal 40-60 [facility] ([place]) Comment on above: Performed By: #### C MP, LIPID, VIDH, FT4, A1C, GFR, TSH #### [address] [place], [place] [address] Cholesterol in LDL [Mass/Vol] 128 mg/dL Normal 0-130 [facility] ([place]) Comment on above: Performed By: #### C MP, LIPID, VIDH, FT4, A1C, GFR, TSH #### [address] [address] Triglyceride [Mass/Vol] 156 mg/dL High 0-150 A [facility] ([place]) Comment on above: Result Comment: Trig lyceride Reference Interval: Less than 150 Normal 150-199 Borderline high risk 200-499 High risk 500 or higher Very high risk Performed By: #### C MP, LIPID, VIDH, FT4, A1C, GFR, TSH #### [address] [address] MALBRon 10-20-2023 U Creatinine 117.6 mg/dL High 28.0-117.0 [facility] ([place]) Comment on above: Performed By: #### C MP, LIPID, VIDH, FT4, A1C, GFR, TSH #### [address] [address] U Microalb 820 mcg/dL Normal [facility] ([place]) Comment on above: Performed By: #### C MP, LIPID, VIDH, FT4, A1C, GFR, TSH #### [address] [address] U Ratio Alb/Cre 7 mcg/mg Normal 0-30 [facility] ([place]) Comment on above: Performed By: #### C MP, LIPID, VIDH, FT4, A1C, GFR, TSH #### [address] [address] TSHon 10-20-2023 TSH Qn 2.90 m[IU]/L Normal 0.36-3.74 [facility] ([place]) Comment on above: Performed By: #### C MP, LIPID, VIDH, FT4, A1C, GFR, TSH #### [address] [address] VIDHon 10-20-2023 Vit. D 25-Hydroxy 43.8 ng/mL Normal [facility] ([place]) Comment on above: Result Comment: Inte rpretive Values Based on Total 25(OH) Vitamin D: Deficient <20 ng/mL Insufficient 20 - <30 ng/mL Sufficient 30-100 ng/mL Performed By: #### C MP, LIPID, VIDH, FT4, A1C, GFR, TSH #### [address] [place], [place] [address] Emergency Department Summary on 08-22-2023 Emergency Department Summary [facility] Medical Records Department [address] [place] [address] Emergency Department Summary 08/22/23 MR#: [id number] Acct: [id number] Name: RAGHAV GREGORY Rep #: [id number] : 1950 73 From: Jean-Paul Suarez DO [...] but her children Urging her to come. [facility] Medical History Chronic ulcer of left [...] for pale (more content not included)... Normal [facility] MAMMOGRAM SCREENING BILAT ERAL W/TOMOon 08-21-2023 MA MAMMOGRAM SCREENING BILATERAL W/NATO ORIGINAL FROM: [place] [address] PROCEDURE FOR: RAGHAV GandaraJevon BRI [address] [place] [id number] Home: PID#: [id number] Exam#: [id number] : 1950 Age: 73 TO: MATHIEU ROLAND DO [address] [place] [address] Fax: NO FAX EXAMINATION: SCREENING DIGITAL BILATERAL [...] addition to annual mammographic screening per the [employer]. BIRADS: MAMMOGRAM BI-RADS: 2: Benign finding RECALL: 1 year screening RECALL TYPE: mammo LETTER SENT: Normal BI-RADS 1 and 2 Interpreted by: Ann Barros Preliminary Report By: Ann Barros Electronically signed By Ann Barros Dictated Date: 08/21/2023 11:04:57 PM Prelim Date: 08/21/2023 11:08:16 PM Sign Date: 08/21/2023 11:08:16 PM Ordering Provider: MATHIEU ROLAND Supervisor Remelt: THERESE KLINE RT(R)(M)(CT) HARMONIC ANALYST letter sent: Probably Benign BI-RADS 3 Mammogram BI-RADS: 2 Benign Normal [facility] ([place]) .GFRon 06-23-2023 GFR Non- 56 ml/min/1.73sqm Normal [facility] ([place]) Comment on above: Result Comment: GFR Population [...] LIPID, VIDH, FT4, A1C, GFR, TSH #### [address] [address] GFR 68 ml/min/1.73sqm Normal [facility] ([place]) Comment on above: Result Comment: GFR Population [...] LIPID, VIDH, FT4, A1C, GFR, TSH #### [address] [address] A1Con 06-23-2023 HbA1c (Bld) [Mass fraction] 6.4 % Normal 4.3-6.4 [facility] ([place]) Comment on above: Performed By: #### C MP, LIPID, VIDH, FT4, A1C, GFR, TSH #### [address] [address] CMPon 06-23-2023 Albumin Level 3.7 G/dL Normal 3.4-4.8 [facility] ([place]) Comment on above: Performed By: #### C MP, LIPID, VIDH, FT4, A1C, GFR, TSH #### [address] [address] Albumin/Globulin [Mass ratio] 1.2 {ratio} Normal 1.1-2.5 [facility] ([place]) Comment on above: Performed By: #### C MP, LIPID, VIDH, FT4, A1C, GFR, TSH #### [address] [address] ALP [Catalytic activity/Vol] 77 U/L Normal 40-135 [facility] ([place]) Comment on above: Performed By: #### C MP, LIPID, VIDH, FT4, A1C, GFR, TSH #### [address] [address] ALT [Catalytic activity/Vol] 15 U/L Normal 14-59 [facility] ([place]) Comment on above: Performed By: #### C MP, LIPID, VIDH, FT4, A1C, GFR, TSH #### [address] [address] AST [Catalytic activity/Vol] 16 U/L Normal 10-40 [facility] ([place]) Comment on above: Performed By: #### C MP, LIPID, VIDH, FT4, A1C, GFR, TSH #### [address] [address] Bili Total 0.4 mg/dL Normal 0.2-1.0 [facility] ([place]) Comment on above: Result Comment: Use of this assay is not recommended for patients undergoing treatment with eltrombopag due to the potential for falsely elevated results. Performed By: #### C MP, LIPID, VIDH, FT4, A1C, GFR, TSH #### [address] [address] BUN/Creatinine Ratio 11 ratio Normal 7-27 [facility] ([place]) Comment on above: Performed By: #### C MP, LIPID, VIDH, FT4, A1C, GFR, TSH #### [address] [address] Calcium [Mass/Vol] 8.9 mg/dL Normal 8.4-10.2 [facility] ([place]) Comment on above: Performed By: #### C MP, LIPID, VIDH, FT4, A1C, GFR, TSH #### [address] [address] Chloride [Moles/Vol] 106 mmol/L Normal 98-107 [facility] ([place]) Comment on above: Performed By: #### C MP, LIPID, VIDH, FT4, A1C, GFR, TSH #### [address] [address] CO2 [Moles/Vol] 29 mmol/L Normal 23-31 [facility] ([place]) Comment on above: Performed By: #### C MP, LIPID, VIDH, FT4, A1C, GFR, TSH #### [address] [address] Creatinine [Mass/Vol] 0.97 mg/dL Normal 0.55-1.02 [facility] ([place]) Comment on above: Performed By: #### C MP, LIPID, VIDH, FT4, A1C, GFR, TSH #### [address] [address] Electrolyte Balance 6.0 mEq/L Normal 4.0-15.0 [facility] ([place]) Comment on above: Performed By: #### C MP, LIPID, VIDH, FT4, A1C, GFR, TSH #### [address] [address] Globulin 3.1 G/dL Normal [facility] ([place]) Comment on above: Performed By: #### C MP, LIPID, VIDH, FT4, A1C, GFR, TSH #### [address] [address] Glucose [Mass/Vol] 138 mg/dL High 83-110 [facility] ([place]) Comment on above: Performed By: #### C MP, LIPID, VIDH, FT4, A1C, GFR, TSH #### [address] [address] Potassium [Moles/Vol] 5.1 mmol/L Normal 3.5-5.1 [facility] ([place]) Comment on above: Performed By: #### C MP, LIPID, VIDH, FT4, A1C, GFR, TSH #### [address] [address] Sodium [Moles/Vol] 141 mmol/L Normal 136-145 [facility] ([place]) Comment on above: Performed By: #### C MP, LIPID, VIDH, FT4, A1C, GFR, TSH #### [address] [place], [place] [address] Total Protein 6.8 G/dL Normal 6.4-8.2 [facility] ([place]) Comment on above: Performed By: #### C MP, LIPID, VIDH, FT4, A1C, GFR, TSH #### [address] [address] Urea nitrogen [Mass/Vol] 11 mg/dL Normal 7-18 [facility] ([place]) Comment on above: Performed By: #### C MP, LIPID, VIDH, FT4, A1C, GFR, TSH #### [address] [address] FT3on 06-23-2023 Free T3 [Mass/Vol] 2.32 pg/mL Normal 2.30-4.00 [facility] ([place]) Comment on above: Performed By: #### C MP, LIPID, VIDH, FT4, A1C, GFR, TSH #### [address] [address] HCVon 06-23-2023 Hep C Ab Non-Reactive Normal Non-Reactiv e [facility] ([place]) Comment on above: Performed By: #### H CV1 #### [address] [address] Hep C Ab Int Normal [facility] ([place]) Comment on above: Result Comment: Nonr eactive: Samples with a value < 0.80 are considered nonreactive (negative) for antibodies to HCV. A negative test result does not exclude the possibility of exposure to or infection with HCV. HCV antibodies may be undetectable in some stages of the infection and in some clinical conditions. See Interp Performed By: #### H CV1 #### [address] [address] LIPIDon 06-23-2023 Cholesterol [Mass/Vol] 178 mg/dL Normal 0-200 [facility] ([place]) Comment on above: Result Comment: Chol esterol Reference Interval: Less than 200 Desirable 200-239 Borderline high risk 240 and above High risk Performed By: #### C MP, LIPID, VIDH, FT4, A1C, GFR, TSH #### [address] [address] Cholesterol in HDL [Mass/Vol] 43 mg/dL Normal 40-60 [facility] ([place]) Comment on above: Performed By: #### C MP, LIPID, VIDH, FT4, A1C, GFR, TSH #### [address] [address] Cholesterol in LDL [Mass/Vol] 110 mg/dL Normal 0-130 [facility] ([place]) Comment on above: Performed By: #### C MP, LIPID, VIDH, FT4, A1C, GFR, TSH #### [address] [address] Triglyceride [Mass/Vol] 123 mg/dL Normal 0-150 A [facility] ([place]) Comment on above: Result Comment: Trig lyceride Reference Interval: Less than 150 Normal 150-199 Borderline high risk 200-499 High risk 500 or higher Very high risk Performed By: #### C MP, LIPID, VIDH, FT4, A1C, GFR, TSH #### [address] [address] TSHon 06-23-2023 TSH Qn 1.77 m[IU]/L Normal 0.36-3.74 [facility] ([place]) Comment on above: Performed By: #### C MP, LIPID, VIDH, FT4, A1C, GFR, TSH #### [address] [address] VIDHon 06-23-2023 Vit. D 25-Hydroxy 29.9 ng/mL Normal [facility] ([place]) Comment on above: Result Comment: Inte rpretive Values Based on Total 25([place]) Vitamin D: Deficient <20 ng/mL Insufficient 20 - <30 ng/mL Sufficient 30-100 ng/mL Performed By: #### C MP, LIPID, VIDH, FT4, A1C, GFR, TSH #### [address] [address] LABORATORYOrdered By: Keri Goldstein on 02-12-2023 Albumin [...] Schmidt on 10-31-2022 Wound Culture Staphylococcus aureus [facility] Wound Cultureon 10-31-2022 WC Staphylococcus aureu s [...] S Vancomycin Islt JACOB <=0.5 S Normal [facility] Comment on above: Performed By: #### M 100.3000, M1.1999 #### [facility] [address] [place], [place], [address] Gram Stainon 10-30-2022 GS Gram Stain Rare Epithelial cells Rare White Blood Cells Rare Gram positive cocci Normal [facility] Comment on above: Performed By: #### M 100.3000, .1999 #### [facility] [address] [place], [place], [address] Gram stain for investigation of transfusion reactionOrdered By: Dr. Schmidt on 10-30-2022 Microscopic observation Gram stain Nom (Unsp spec) [facility] LABORATORYOrdered By: SYSTEM SYSTEM on 09-25-2022 Albumin [...] W/Diff, Automatedon 08-31 PATH REV Reviewed Normal [facility] Comment on above: Result Comment: Neut rophilic leukocytosis. Polycythemia Clinical correlation necessary. Eliezer Johns M.D. 09/17/22 AMENDED REPORT 09/17/22 0939 PATH REV previously reported as: December magy Performed By: #### L 500.3400, L501.4020, L501.2450, L100.0100, L500.2500 #### [facility] [address] [place], [address] 12 Lead EKGon 09-16-2022 12 Lead EKG [facility] Services [address] [place] [address] 12 Lead EKG 09/15/22 2350 MR#: [id number] Acct: [id number] Name: RAGHAV GREGORY Rep #: [id number] : 1950 72 From: Jonny Lynch MD [...] ECG Confirmed by MANDY KEY, JONNY ([id number]), staff editor MUSA NICOLE ([id number]) on 09/18/2022 8:31:52 AM Referred By: SHE Confirmed By:JONNY LYNCH MD 09/18/22830 Date Jonny Lynch MD CC: Dr. Whitney Ott MD; Dr. Mathieu Roland DO Signed Normal [facility] Abdomen/Pelvis without Conto n 09-16-2022 Abdomen/Pelvis without Cont [facility] Imaging Services [address] [place] [address] Abdomen/Pelvis without Cont MR#: [id number] Acct: [id number] Name: RAGHAV GREGORY Rep #: [id number] : 1950 F 72 From: Netfali Verde PCP: Dr. Mathieu Roland DO Status: REG ER Study: Abdomen/Pelvis without Cont Date of Exam: 08/31 03/22 Exam# [id number] Ordering Dr: Whitney Ott MD STUDY: CT [...] 3:01 EST Reading Location ID and State: [address] [place] [address] Tel , Service support , CC: Dr. Whitney Ott MD; Dr. Mathieu Roland DO Pbx Operator: Signed Normal [facility] Basic Metabolic Profile (BMP )on 09-16-2022 BUN/CRE 9.8 RATIO Low 10-20 [facility] Comment on above: Order Comment: 'TROP ' Serial specimen #1, #2 or #3: 1 Performed By: #### L 500.3400, L501.4020, L501.2450, L100.0100, L500.2500 #### [facility] [address] [place], [place], [address] CA,Total 9.3 mg/dL Normal 8.5-10.1 [facility] Comment on above: Order Comment: 'TROP ' Serial specimen #1, #2 or #3: 1 Performed By: #### L 500.3400, L501.4020, L501.2450, L100.0100, L500.2500 #### [facility] [address] [place], [address] Chloride [Moles/Vol] 105 mmol/L Normal 98-107 [facility] [place] [facility] Comment on above: Order Comment: 'TROP ' Serial specimen #1, #2 or #3: 1 Performed By: #### L 500.3400, L501.4020, L501.2450, L100.0100, L500.2500 #### [facility] [address] [place], [address] CO2 [Moles/Vol] 20.0 mmol/L Low 21.0-32.0 [facility] Comment on above: Order Comment: 'TROP ' Serial specimen #1, #2 or #3: 1 Performed By: #### L 500.3400, L501.4020, L501.2450, L100.0100, L500.2500 #### [facility] [address] [place], [address] Creatinine [Mass/Vol] 1.23 mg/dL High 0.55-1.02 [facility] Comment on above: Order Comment: 'TROP ' Serial specimen #1, #2 or #3: 1 Result Comment: The validity of the calculated GFR GFRAA in patients over 70 years has not been determined. Clinical correlation is essential. Performed By: #### L 500.3400, L501.4020, L501.2450, L100.0100, L500.2500 #### [facility] [address] [place], [address] ECRCL 34.65 ml/min Normal [facility] Comment on above: Order Comment: 'TROP ' Serial specimen #1, #2 or #3: 1 Performed By: #### L 500.3400, L501.4020, L501.2450, L100.0100, L500.2500 #### [facility] [address] [place], [address] EST GFR - AA 55 mL/min Low >60 [facility] Comment on above: Order Comment: 'TROP ' Serial specimen #1, #2 or #3: 1 Result Comment: Afri can [place] GFR Calc Performed By: #### L 500.3400, L501.4020, L501.2450, L100.0100, L500.2500 #### [facility] [address] [place], [address] GAP 13 Normal 5-15 [facility] Comment on above: Order Comment: 'TROP ' Serial specimen #1, #2 or #3: 1 Performed By: #### L 500.3400, L501.4020, L501.2450, L100.0100, L500.2500 #### [facility] [address] [place], [address] GFR/1.73 sq M.predicted among non-blacks MDRD (S/P/Bld) [Vol rate/Area] 45 mL/min/{1.73_m2} Low >60 [facility] Comment on above: Order Comment: 'TROP ' Serial specimen #1, #2 or #3: 1 Result Comment: Non- GFR Calc Performed By: #### L 500.3400, L501.4020, L501.2450, L100.0100, L500.2500 #### [facility] [address] [place], [address] Glucose [Mass/Vol] 249 mg/dL High 74-106 [facility] Comment on above: Order Comment: 'TROP ' Serial specimen #1, #2 or #3: 1 Result Comment: Gluc ose result greater than or equal to 200 mg/dL suggests DIABETES MELLITUS per A.D.A. criteria. Performed By: #### L 500.3400, L501.4020, L501.2450, L100.0100, L500.2500 #### [facility] [address] [place], [address] Potassium [Moles/Vol] 5.1 mmol/L Normal 3.5-5.1 [facility] Comment on above: Order Comment: 'TROP ' Serial specimen #1, #2 or #3: 1 Result Comment: Mode rate Hemolysis, Result may be falsely increased. Performed By: #### L 500.3400, L501.4020, L501.2450, L100.0100, L500.2500 #### [facility] [address] [place], [address] Sodium [Moles/Vol] 138 mmol/L Normal 136-145 [facility] Comment on above: Order Comment: 'TROP ' Serial specimen #1, #2 or #3: 1 Performed By: #### L 500.3400, L501.4020, L501.2450, L100.0100, L500.2500 #### [facility] [address] [place], [address] Urea nitrogen [Mass/Vol] 12 mg/dL Normal 7-18 [facility] Comment on above: Order Comment: 'TROP ' Serial specimen #1, #2 or #3: 1 Performed By: #### L 500.3400, L501.4020, L501.2450, L100.0100, L500.2500 #### [facility] [address] [place], [address] Emergency Department Summary on 09-16-2022 Emergency Department Summary [facility] Medical Records Department [address] [place] [address] Emergency Department Summary 09/15/22 MR#: [id number] Acct: [id number] Name: RAGHAV GREGORY Rep #: [id number] : 1950 72 From: Whitney Ott MD [...] in the right side of her abdomen. [facility] Medical History Chronic ulcer of left [...] status erica (more content not included)... Normal [facility] L501.4020on 09-16-2022 TROPONIN-I HS 10 pg/mL Normal 3.0-54.0 [facility] Comment on above: Order Comment: 'TROP ' Serial specimen #1, #2 or #3: 1 Result Comment: Suleiman sinha Note: New Test Units and Gender Specific Reference Ranges. For more information see Policy Stat Procedure [place] High Sensitivity Troponin (TNIH) and attachments. Performed By: #### L 500.3400, L501.4020, L501.2450, L100.0100, L500.2500 ####[facility] [address] [place], [address] Lipaseon 09-16-2022 Lipase [Catalytic activity/Vol] 42 U/L Low 73-393 [facility] Comment on above: Order Comment: 'TROP ' Serial specimen #1, #2 or #3: 1 Performed By: #### L 500.3400, L501.4020, L501.2450, L100.0100, L500.2500 #### [facility] [address] [place], [address] Liver Profileon 09-16-2022 Albumin [Mass/Vol] 3.7 g/dL Normal 3.2-5.0 [facility] Comment on above: Order Comment: 'TROP ' Serial specimen #1, #2 or #3: 1 Performed By: #### L 500.3400, L501.4020, L501.2450, L100.0100, L500.2500 #### [facility] [address] [place], [address] ALK P 100 U/L Normal 45-117 [facility] Comment on above: Order Comment: 'TROP ' Serial specimen #1, #2 or #3: 1 Performed By: #### L 500.3400, L501.4020, L501.2450, L100.0100, L500.2500 #### [facility] [address] [place], [address] ALT [Catalytic activity/Vol] 17 U/L Normal 13-56 [facility] Comment on above: Order Comment: 'TROP ' Serial specimen #1, #2 or #3: 1 Performed By: #### L 500.3400, L501.4020, L501.2450, L100.0100, L500.2500 #### [facility] [address] [place], [address] AST [Catalytic activity/Vol] 21 U/L Normal 15-37 [facility] Comment on above: Order Comment: 'TROP ' Serial specimen #1, #2 or #3: 1 Result Comment: Mode rate Hemolysis, Result may be falsely increased. Performed By: #### L 500.3400, L501.4020, L501.2450, L100.0100, L500.2500 #### [facility] [address] [place], [address] Bilirubin [Mass/Vol] 0.60 mg/dL Normal 0.20-1.00 [facility] [place] [facility] Comment on above: Order Comment: 'TROP ' Serial specimen #1, #2 or #3: 1 Result Comment: For patients on eltrombopag therapy, use of Dimension [place] TBIL is not recommended. Performed By: #### L 500.3400, L501.4020, L501.2450, L100.0100, L500.2500 #### [facility] [address] [place], [address] Bilirubin.direct [Mass/Vol] 0.07 mg/dL Normal 0.00-0.30 [facility] Comment on above: Order Comment: 'TROP ' Serial specimen #1, #2 or #3: 1 Performed By: #### L 500.3400, L501.4020, L501.2450, L100.0100, L500.2500 #### [facility] [address] [place], [address] Globulin (S) [Mass/Vol] 3.9 g/dL Normal 2.2-4.2 [facility] Comment on above: Order Comment: 'TROP ' Serial specimen #1, #2 or #3: 1 Performed By: #### L 500.3400, L501.4020, L501.2450, L100.0100, L500.2500 #### [facility] [address] [place], [address] T PROT 7.6 g/dL Normal 6.4-8.2 [facility] Comment on above: Order Comment: 'TROP ' Serial specimen #1, #2 or #3: 1 Performed By: #### L 500.3400, L501.4020, L501.2450, L100.0100, L500.2500 #### [facility] [address] [place], [address] Absolute lymphocyte countOrd ered By: Dr. Ott on 09-15-2022 Lymphocytes Auto (Unsp spec) [#/Vol] 1.07 10*3/uL 0.83-4.51 [facility] Basophil percentageOrdered B y: Dr. Ott on 09-15-2022 Basophils/100 WBC (Bld) 0.4 % 0-1 [facility] Bilirubin [Mass/Vol] 0.60 mg/dL 0.20-1.00 [facility] [place] [facility] Comment on above: For patients on eltr ombopag therapy, use of Dimension [place] TBIL is not recommended. Chloride [Moles/Vol] 105 mmol/L 98-107 [facility] [place] [facility] Eosinophils/100 WBC (Bld) 1.1 % 0-5 [facility] Glucose [Mass/Vol] 249 mg/dL 74-106 [facility] Comment on above: Glucose result great er than or equal to 200 mg/dLsuggests DIABETES MELLITUS per A.D.A. criteria. Neutrophils (Bld) [#/Vol] 10.2 10*3/uL 2.0-7.7 [facility] Neutrophils/100 WBC (Bld) 84.7 % 47-70 [facility] Potassium [Moles/Vol] 5.1 mmol/L 3.5-5.1 [facility] Comment on above: Moderate Hemolysis, Result may be falsely increased. Protein [Mass/Vol] 7.6 g/dL 6.4-8.2 [facility] Sodium [Moles/Vol] 138 mmol/L 136-145 [facility] WBC (Bld) [#/Vol] 12.0 10*3/uL 4.4-11.0 [facility] Blood erythrocytes count (nu mber/volume)Ordered By: Dr. Ott on 09-15-2022 RBC (Bld) [#/Vol] 6.09 10*6/uL 4.2-5.4 [facility] Blood hemoglobin measurement (mass/volume)Ordered By: Dr. Ott on 09-15-2022 Hemoglobin (Bld) [Mass/Vol] 18.1 g/dL 12.0-15.0 [facility] Comment on above: CRITICAL VALUE VERIF IED. CALLED TO Tesha SHEA RN ER/ [id number].RESULTS READ BACK BY SAME. Blood lymphocytes/100 leukoc ytesOrdered By: Dr. tOt on 09-15-2022 Lymphocytes/100 WBC (Bld) 8.9 % 19-41 [facility] Blood monocytes/100 leukocyt esOrdered By: Dr. Ott on 09-15-2022 Monocytes/100 WBC (Bld) 4.3 % 0-10 [facility] Blood platelet mean volumeOr dered By: Dr. Ott on 09-15-2022 Platelet mean volume (Bld) [Entitic vol] 10.6 fL 6.2-12.0 [facility] Determination of erythrocyte mean corpuscular volume (MCV)Ordered By: Dr. Ott on 09-15-2022 MCV (RBC) [Entitic vol] 93.1 fL 81-99 [facility] Direct bilirubinOrdered By: Dr. Ott on 09-15-2022 Bilirubin.direct [Mass/Vol] 0.07 mg/dL 0.00-0.30 [facility] Hematocrit Auto (Bld) [Volum e fraction]Ordered By: Dr. Ott on 09-15-2022 Hematocrit (Bld) [Volume fraction] 56.7 % 37-47 [facility] Laboratory - Chemistry and C hemistry - challengeOrdered By: Dr. Ott on 09-15-2022 ALP [Catalytic activity/Vol] 100 U/L 45-117 [facility] ALT [Catalytic activity/Vol] 17 U/L 13-56 [facility] CO2 [Moles/Vol] 20.0 mmol/L 21.0-32.0 [facility] Globulin (S) [Mass/Vol] 3.9 g/dL 2.2-4.2 [facility] Lipase [Catalytic activity/Vol] 42 U/L 73-393 [facility] Urea nitrogen/Creatinine [Mass ratio] 9.8 mg/mg 10-20 [facility] Laboratory - Hematology and Cell countsOrdered By: Dr. Ott on 09-15-2022 Erythrocyte distribution width (RBC) [Entitic vol] 44.8 fL 35.1-43.9 [facility] Erythrocyte distribution width (RBC) [Ratio] 13.2 % 11.6-14.6 [facility] Immature granulocytes/100 WBC (Bld) 0.600 % 0.0-0.9 [facility] Comment on above: IG% - Immature Granu locytes (promyelocytes, myelocytes and metamyelocytes) > 1% indicates that a LEFT SHIFT is Present. MCH (RBC) [Entitic mass] 29.7 pg 27.0-32.0 [facility] Nucleated RBC/100 WBC (Bld) [Ratio] 0 % 0-5 [facility] MCHC Auto (RBC) [Mass/Vol]Or dered By: Dr. Ott on 09-15-2022 MCHC (RBC) [Mass/Vol] 31.9 g/dL 32-36 [facility] No Panel InformationOrdered By: Dr. Ott on 09-15-2022 Estimated Creatinine Clearance Calc 34.65 ml/min [facility] Estimated GFR (MDRD) Amer 55 mL/min >60 [facility] Comment on above: GFR Calc Estimated GFR (MDRD) Non-Af Amer 45 mL/min >60 [facility] Comment on above: Non- GFR Calc Troponin I High Sensitivity 10 pg/mL 3.0-54.0 [facility] Comment on above: Please Note: [place] t Units and Gender Specific Reference Ranges. For more information see Policy Stat Procedure [place] High Sensitivity Troponin (TNIH) and attachments. Platelets bldOrdered By: Dr. Ott on 09-15-2022 Platelets (Bld) [#/Vol] 216 10*3/uL 150-450 [facility] Review by pathologistOrdered By: Dr. Ott on 09-15-2022 Pathologist review D[place] (Unsp spec) [Interp] Suzanna bhatti [facility] Pathologist review D[place]a (Unsp spec) [Interp] Reviewed [facility] Comment on above: Previous reported re sult: Suzanna bhatti Edited by: RGOBRETT on 09/17/22:0939Neutrophilic leukocytosis.Polycythemia Clinical correlation necessary.Eliezer Johns M.D. 09/17/22 AMENDED REPORT 09/17/22 0939 PATH REV previously reported as: Suzanna bhatti Serum or plasma albumin pavel urement (mass/volume)Ordered By: Dr. Ott on 09-15-2022 Albumin [Mass/Vol] 3.7 g/dL 3.2-5.0 [facility] Serum or plasma calcium pavel urement (mass/volume)Ordered By: Dr. Ott on 09-15-2022 Calcium [Mass/Vol] 9.3 mg/dL 8.5-10.1 [facility] Serum or plasma creatinine m easurement (mass/volume)Ordered By: Dr. Ott on 09-15-2022 Creatinine [Mass/Vol] 1.23 mg/dL 0.55-1.02 [facility] Comment on above: The validity of the calculated GFR & GFRAA in patients over 70 years has not been determined. Clinical correlation is essential. Serum or plasma urea nitroge n measurement (mass/volume)Ordered By: Dr. Ott on 09-15-2022 Urea nitrogen [Mass/Vol] 12 mg/dL 7-18 [facility] Thin prep Papanicolaou smear with manual screeningOrdered By: Dr. Ott on 09-15-2022 Thin prep Papanicolaou smear with manual screening 21 U/L 15-37 [facility] Comment on above: Moderate Hemolysis, Result may be falsely increased. Thin prep Papanicolaou smear with manual screening 13 01-12 [facility] LABORATORYOrdered By: Favian Contreras on 03-05-2022 Albumin [...] Auto (Unsp spec) [#/Vol] 1.62 10*3/uL 0.83-4.51 [facility] Work Phone: Basophil percentageon 2021 Basophils/100 WBC (Bld) 0.5 % 0-1 [facility] Work Phone: [phone] Chloride [Moles/Vol] 100 mmol/L 98-107 [facility] Work Phone: [phone] Eosinophils/100 WBC (Bld) 1.7 % 0-5 [facility] Work Phone: [phone] Glucose [Mass/Vol] 174 mg/dL 74-106 [facility] Work Phone: Comment on above: Fasting Glucose resu lt greater than or equal to 126 mg/dL suggests DIABETES MELLITUS per A.D.A. criteria. Neutrophils (Bld) [#/Vol] 5.8 10*3/uL 2.0-7.7 [facility] Work Phone: Neutrophils/100 WBC (Bld) 70.5 % 47-70 [facility] Work Phone: Potassium [Moles/Vol] 4.1 mmol/L 3.5-5.1 [facility] Work Phone: Sodium [Moles/Vol] 136 mmol/L 136-145 [facility] Work Phone: WBC (Bld) [#/Vol] 8.2 10*3/uL 4.4-11.0 [facility] Work Phone: Blood erythrocytes count (nu mber/volume)on 01-18-2022 RBC (Bld) [#/Vol] 4.01 10*6/uL 4.2-5.4 [facility] Work Phone: Blood hemoglobin measurement (mass/volume)on 01-18-2022 Hemoglobin (Bld) [Mass/Vol] 11.8 g/dL 12.0-15.0 [facility] Work Phone: Blood lymphocytes/100 leukoc yteson 01-18-2022 Lymphocytes/100 WBC (Bld) 19.7 % 19-41 [facility] Work Phone: Blood monocytes/100 leukocyt eson 01-18-2022 Monocytes/100 WBC (Bld) 6.4 % 0-10 [facility] Work Phone: Blood platelet mean volumeon 01-18-2022 Platelet mean volume (Bld) [Entitic vol] 10.1 fL 6.2-12.0 [facility] Work Phone: Determination of erythrocyte mean corpuscular volume (MCV)on 01-18-2022 MCV (RBC) [Entitic vol] 92.5 fL 81-99 [facility] Work Phone: Glucose Glucometer (BldC) [M ass/Vol]on 01-18-2022 Glucose [Mass/Vol] 243 mg/dL 74-106 [facility] Work Phone: Comment on above: MANAGEMENT OF PATIEN T CARE PER NURSING PROTOCOL Hematocrit Auto (Bld) [Volum e fraction]on 01-18-2022 Hematocrit (Bld) [Volume fraction] 37.1 % 37-47 [facility] Work Phone: Laboratory - Chemistry and C hemistry - challengeon 01-18-2022 CO2 [Moles/Vol] 32.0 mmol/L 21.0-32.0 [facility] Work Phone: Urea nitrogen/Creatinine [Mass ratio] 23.8 mg/mg 10-20 [facility] Work Phone: Laboratory - Hematology and Cell countson 01-18-2022 Erythrocyte distribution width (RBC) [Entitic vol] 42.2 fL 35.1-43.9 [facility] Work Phone: Erythrocyte distribution width (RBC) [Ratio] 12.5 % 11.6-14.6 [facility] Work Phone: Immature granulocytes/100 WBC (Bld) 1.200 % 0.0-0.9 [facility] Work Phone: Comment on above: IG% - Immature Granu locytes (promyelocytes, myelocytes and metamyelocytes) > 1% indicates that a LEFT SHIFT is Present. MCH (RBC) [Entitic mass] 29.4 pg 27.0-32.0 [facility] Work Phone: Nucleated RBC/100 WBC (Bld) [Ratio] 0 % 0-5 [facility] Work Phone: MCHC Auto (RBC) [Mass/Vol]on 01-18-2022 MCHC (RBC) [Mass/Vol] 31.8 g/dL 32-36 [facility] Work Phone: No Panel Informationon 01-18 Estimated Creatinine Clearance Calc 43.27 ml/min [facility] Work Phone: Estimated GFR (MDRD) Amer 96 mL/min >60 [facility] Work Phone: Comment on above: GFR Calc Estimated GFR (MDRD) Non-Af Amer 80 mL/min >60 [facility] Work Phone: Comment on above: Non- GFR Calc Platelets bldon 01-18-2022 Platelets (Bld) [#/Vol] 345 10*3/uL 150-450 [facility] Work Phone: Serum or plasma calcium pavel urement (mass/volume)on 01-18-2022 Calcium [Mass/Vol] 9.6 mg/dL 8.5-10.1 [facility] Work Phone: Serum or plasma creatinine m easurement (mass/volume)on 01-18-2022 Creatinine [Mass/Vol] 0.76 mg/dL 0.55-1.02 [facility] Work Phone: Comment on above: The validity of the calculated GFR & GFRAA in patients over 70 years has not been determined. Clinical correlation is essential. Serum or plasma urea nitroge n measurement (mass/volume)on 01-18-2022 Urea nitrogen [Mass/Vol] 18 mg/dL 7-18 [facility] Work Phone: Thin prep Papanicolaou smear with manual screeningon 01-18-2022 Thin prep Papanicolaou smear with manual screening 4 5-15 [facility] Work Phone: Bacteria identified Anaer cx Nom (Unsp spec)on 01-16-2022 Anaerobic Culture Anaerobic cocci [facility] Work Phone: Bacteria identified Cx Nom ( Wound)on 01-16-2022 Wound Culture Staphylococcus aureus [facility] Work Phone: Wound Culture Positive [facility] Work Phone: Gram stain for investigation of transfusion reactionon 01-16-2022 Microscopic observation Gram stain Nom (Unsp spec) [facility] Work Phone: No Panel Informationon 01-16 Thyroid Stimulating Hormone (TSH) 1.90 uIU/mL 0.358-3.74 [facility] Work Phone: Vancomycin troughon 01-17-20 Vancomycin trough [Mass/Vol] 8.1 ug/mL 5.0-15.0 [facility] Work Phone: Comment on above: VANCOMYCIN STANDARED DRUG THERAPY TROUGH LEVEL: 5.0 - 15.0 mg/L VANCOMYCIN HIGH INTENSITY THERAPY TROUGH LEVEL: 15.0 - 20.0 mg/L High Intensity therapy recommended for serious lifethreatening infections include:- Lowkazzazj-Zkdwxqjjyykt-Xxlajcuxp (Ventilator/Healtcare Associated)-Sepsis PLEASE CONTACT PHARMACY SERVICES (#[id number]) FOR INTERPRETATIONOF RESULTS. Absolute lymphocyte counton 01-14-2022 Lymphocytes Auto (Unsp spec) [#/Vol] 1.55 10*3/uL 0.83-4.51 [facility] Work Phone: Basophil percentageon 2021 Lactate [Moles/Vol] 1.2 mmol/L 0.4-2.0 [facility] Work Phone: Basophils/100 WBC (Bld) 0.3 % 0-1 [facility] Work Phone: Bilirubin [Mass/Vol] 0.20 mg/dL 0.20-1.00 [facility] Work Phone: Comment on above: For patients on eltr ombopag therapy, use of Dimension [place] TBIL is not recommended. Chloride [Moles/Vol] 99 mmol/L 98-107 [facility] Work Phone: Eosinophils/100 WBC (Bld) 0.8 % 0-5 [facility] Work Phone: Glucose [Mass/Vol] 49 mg/dL 74-106 [facility] Work Phone: Comment on above: Glucose result less than 50 mg/dL suggests HYPOGLYCEMIA. Lactate [Moles/Vol] 2.8 mmol/L 0.4-2.0 [facility] Work Phone: Comment on above: Critical Result(s) C alled at: 20:22:03 01/14/2022 by: Virginie persaud [email or web address]. Results read back by same. Neutrophils (Bld) [#/Vol] 8.3 10*3/uL 2.0-7.7 [facility] Work Phone: Neutrophils/100 WBC (Bld) 75.0 % 47-70 [facility] Work Phone: Potassium [Moles/Vol] 3.8 mmol/L 3.5-5.1 [facility] Work Phone: Protein [Mass/Vol] 6.9 g/dL 6.4-8.2 [facility] Work Phone: Sodium [Moles/Vol] 136 mmol/L 136-145 [facility] Work Phone: WBC (Bld) [#/Vol] 11.0 10*3/uL 4.4-11.0 [facility] Work Phone: Blood erythrocytes count (nu mber/volume)on 01-14-2022 RBC (Bld) [#/Vol] 3.73 10*6/uL 4.2-5.4 [facility] Work Phone: Blood hemoglobin measurement (mass/volume)on 01-14-2022 Hemoglobin (Bld) [Mass/Vol] 11.2 g/dL 12.0-15.0 [facility] Work Phone: Blood lymphocytes/100 leukoc yteson 01-14-2022 Lymphocytes/100 WBC (Bld) 14.1 % 19-41 [facility] Work Phone: Blood monocytes/100 leukocyt eson 01-14-2022 Monocytes/100 WBC (Bld) 8.3 % 0-10 [facility] Work Phone: Blood platelet mean volumeon 01-14-2022 Platelet mean volume (Bld) [Entitic vol] 10.8 fL 6.2-12.0 [facility] Work Phone: Determination of erythrocyte mean corpuscular volume (MCV)on 01-14-2022 MCV (RBC) [Entitic vol] 91.4 fL 81-99 [facility] Work Phone: Hematocrit Auto (Bld) [Volum e fraction]on 01-14-2022 Hematocrit (Bld) [Volume fraction] 34.1 % 37-47 [facility] Work Phone: INR in Blood by Coagulation assayon 01-14-2022 INR Coag (Bld) [Relative time] 1.2 {INR} [facility] Work Phone: Laboratory - Chemistry and C hemistry - challengeon 01-14-2022 ALP [Catalytic activity/Vol] 52 U/L 45-117 [facility] Work Phone: ALT [Catalytic activity/Vol] 23 U/L 13-56 [facility] Work Phone: CO2 [Moles/Vol] 29.0 mmol/L 21.0-32.0 [facility] Work Phone: Globulin (S) [Mass/Vol] 4.4 g/dL 2.2-4.2 [facility] Work Phone: Urea nitrogen/Creatinine [Mass ratio] 17.1 mg/mg 10-20 [facility] Work Phone: Laboratory - Coagulationon 0 01-14-2022 aPTT Coag (Bld) [Time] 35.5 s 24.1-36.2 [facility] Work Phone: PT Coag (PPP) [Time] 15.0 s 11.7-14.[address] [facility] [address] [facility] Work Phone: Laboratory - Hematology and Cell countson 01-14-2022 Erythrocyte distribution width (RBC) [Entitic vol] 41.9 fL 35.1-43.9 [facility] Work Phone: Erythrocyte distribution width (RBC) [Ratio] 12.5 % 11.6-14.6 [facility] Work Phone: Immature granulocytes/100 WBC (Bld) 1.500 % 0.0-0.9 [facility] Work Phone: Comment on above: IG% - Immature Granu locytes (promyelocytes, myelocytes and metamyelocytes) > 1% indicates that a LEFT SHIFT is Present. MCH (RBC) [Entitic mass] 30.0 pg 27.0-32.0 [facility] Work Phone: Nucleated RBC/100 WBC (Bld) [Ratio] 0 % 0-5 [facility] Work Phone: Laboratory - Microbiology an d Antimicrobial susceptibilityon 01-14-2022 Bacteria identified Cx Nom (Bld) No growth in 5 days. [facility] Work Phone: MCHC Auto (RBC) [Mass/Vol]on 01-14-2022 MCHC (RBC) [Mass/Vol] 32.8 g/dL 32-36 [facility] Work Phone: No Panel Informationon 01-14 Estimated Creatinine Clearance Calc 38.53 ml/min [facility] Work Phone: Estimated GFR (MDRD) Amer 58 mL/min >60 [facility] Work Phone: Comment on above: GFR Calc Estimated GFR (MDRD) Non-Af Amer 48 mL/min >60 [facility] Work Phone: Comment on above: Non- GFR Calc Platelets bldon 01-14-2022 Platelets (Bld) [#/Vol] 318 10*3/uL 150-450 [facility] Work Phone: Serum or plasma albumin pavel urement (mass/volume)on 01-14-2022 Albumin [Mass/Vol] 2.5 g/dL 3.2-5.0 [facility] Work Phone: Serum or plasma albumin/glob ulin mass ratioon 01-14-2022 Albumin/Globulin [Mass ratio] 0.6 {ratio} 0.9-2.4 [facility] Work Phone: Serum or plasma calcium pavel urement (mass/volume)on 01-14-2022 Calcium [Mass/Vol] 8.9 mg/dL 8.5-10.1 [facility] Work Phone: Serum or plasma creatinine m easurement (mass/volume)on 01-14-2022 Creatinine [Mass/Vol] 1.17 mg/dL 0.55-1.02 [facility] Work Phone: Comment on above: The validity of the calculated GFR & GFRAA in patients over 70 years has not been determined. Clinical correlation is essential. Serum or plasma urea nitroge n measurement (mass/volume)on 01-14-2022 Urea nitrogen [Mass/Vol] 20 mg/dL 7-18 [facility] Work Phone: Thin prep Papanicolaou smear with manual screeningon 01-14-2022 Thin prep Papanicolaou smear with manual screening 31 U/L 15-37 [facility] Work Phone: Thin prep Papanicolaou smear with manual screening 8 5-15 [facility] Work Phone: Absolute lymphocyte counton 01-13-2022 Lymphocytes Auto (Unsp spec) [#/Vol] 0.98 10*3/uL 0.83-4.51 [facility] Work Phone: Basophil percentageon 2021 Basophils/100 WBC (Bld) 0.3 % 0-1 [facility] Work Phone: Bilirubin [Mass/Vol] 0.40 mg/dL 0.20-1.00 [facility] Work Phone: Comment on above: For patients on eltr ombopag therapy, use of Dimension [place] TBIL is not recommended. Chloride [Moles/Vol] 99 mmol/L 98-107 [facility] Work Phone: Eosinophils/100 WBC (Bld) 0.6 % 0-5 [facility] Work Phone: [phone] Glucose [Mass/Vol] 142 mg/dL 74-106 [facility] Work Phone: [phone] Comment on above: Fasting Glucose resu lt greater than or equal to 126 mg/dL suggests DIABETES MELLITUS per A.D.A. criteria. Neutrophils (Bld) [#/Vol] 7.7 10*3/uL 2.0-7.7 [facility] Work Phone: [phone] Neutrophils/100 WBC (Bld) 81.1 % 47-70 [facility] Work Phone: [phone] Potassium [Moles/Vol] 4.1 mmol/L 3.5-5.1 [facility] Work Phone: [phone] Protein [Mass/Vol] 6.5 g/dL 6.4-8.2 [facility] Work Phone: [phone] Sodium [Moles/Vol] 132 mmol/L 136-145 [facility] Work Phone: [phone] WBC (Bld) [#/Vol] 9.5 10*3/uL 4.4-11.0 [facility] Work Phone: Blood erythrocytes count (nu mber/volume)on 01-13-2022 RBC (Bld) [#/Vol] 3.63 10*6/uL 4.2-5.4 [facility] Work Phone: Blood hemoglobin measurement (mass/volume)on 01-13-2022 Hemoglobin (Bld) [Mass/Vol] 10.9 g/dL 12.0-15.0 [facility] Work Phone: Blood lymphocytes/100 leukoc yteson 01-13-2022 Lymphocytes/100 WBC (Bld) 10.3 % 19-41 [facility] Work Phone: Blood monocytes/100 leukocyt eson 01-13-2022 Monocytes/100 WBC (Bld) 7.1 % 0-10 [facility] Work Phone: Blood platelet mean volumeon 01-13-2022 Platelet mean volume (Bld) [Entitic vol] 11.3 fL 6.2-12.0 [facility] Work Phone: Determination of erythrocyte mean corpuscular volume (MCV)on 01-13-2022 MCV (RBC) [Entitic vol] 90.4 fL 81-99 [facility] Work Phone: Erythrocyte sedimentation ra salud 01-13-2022 ESR (Bld) [Velocity] 67 mm[facility]h 0-[facility]: Hematocrit Auto (Bld) [Volum e fraction]on 01-13-2022 Hematocrit (Bld) [Volume fraction] 32.8 % 37-47 [facility] Work Phone: Laboratory - Chemistry and C hemistry - challengeon 01-13-2022 ALP [Catalytic activity/Vol] 46 U/L 45-117 [facility] Work Phone: ALT [Catalytic activity/Vol] 22 U/L 13-56 [facility] Work Phone: CO2 [Moles/Vol] 27.0 mmol/L 21.0-32.0 [facility] Work Phone: Globulin (S) [Mass/Vol] 4.1 g/dL 2.2-4.2 [facility] Work Phone: Urea nitrogen/Creatinine [Mass ratio] 20.4 mg/mg 10-20 [facility] Work Phone: Laboratory - Hematology and Cell countson 01-13-2022 Erythrocyte distribution width (RBC) [Entitic vol] 41.1 fL 35.1-43.9 [facility] Work Phone: Erythrocyte distribution width (RBC) [Ratio] 12.4 % 11.6-14.6 [facility] Work Phone: Immature granulocytes/100 WBC (Bld) 0.600 % 0.0-0.9 [facility] Work Phone: Comment on above: IG% - Immature Granu locytes (promyelocytes, myelocytes and metamyelocytes) > 1% indicates that a LEFT SHIFT is Present. MCH (RBC) [Entitic mass] 30.0 pg 27.0-32.0 [facility] Work Phone: Nucleated RBC/100 WBC (Bld) [Ratio] 0 % 0-5 [facility] Work Phone: MCHC Auto (RBC) [Mass/Vol]on 01-13-2022 MCHC (RBC) [Mass/Vol] 33.2 g/dL 32-36 [facility] Work Phone: No Panel Informationon 01-13 Estimated Creatinine Clearance Calc 39.90 ml/min [facility] Work Phone: Estimated GFR (MDRD) Amer 61 mL/min >60 [facility] Work Phone: Comment on above: GFR Calc Estimated GFR (MDRD) Non-Af Amer 50 mL/min >60 [facility] Work Phone: Comment on above: Non- GFR Calc Platelets bldon 01-13-2022 Platelets (Bld) [#/Vol] 240 10*3/uL 150-450 [facility] Work Phone: Serum or plasma C reactive p rotein measurement (mass/volume)on 01-13-2022 CRP [Mass/Vol] 162.00 mg/L 0.0-3.0 [facility] Work Phone: Comment on above: C-Reactive Protein ( CRP) provides useful information for thediagnosis, therapy and monitoring of inflammatory processesand associated diseases. For the evaluation of Relative Riskfor Cardiovascular Disease, a High Sensitivity CRP (HSCRP)should be ordered. Serum or plasma albumin pavel urement (mass/volume)on 01-13-2022 Albumin [Mass/Vol] 2.4 g/dL 3.2-5.0 [facility] Work Phone: Serum or plasma albumin/glob ulin mass ratioon 01-13-2022 Albumin/Globulin [Mass ratio] 0.6 {ratio} 0.9-2.4 [facility] Work Phone: Serum or plasma calcium pavel urement (mass/volume)on 01-13-2022 Calcium [Mass/Vol] 8.7 mg/dL 8.5-10.1 [facility] Work Phone: Serum or plasma creatinine m easurement (mass/volume)on 01-13-2022 Creatinine [Mass/Vol] 1.13 mg/dL 0.55-1.02 [facility] Work Phone: Comment on above: The validity of the calculated GFR & GFRAA in patients over 70 years has not been determined. Clinical correlation is essential. Serum or plasma urea nitroge n measurement (mass/volume)on 01-13-2022 Urea nitrogen [Mass/Vol] 23 mg/dL 7-18 [facility] Work Phone: Thin prep Papanicolaou smear with manual screeningon 01-13-2022 Thin prep Papanicolaou smear with manual screening 36 U/L 15-37 [facility] Work Phone: Thin prep Papanicolaou smear with manual screening 6 5-15 [facility] Work Phone: No Panel Informationon 01-10 Culture Urine 50,000 - 100,000 cfu/ml Multiple bacterial morphotypes present. Probable Contamination. Suggest recollection if clinically indicated. [facility] Bacteria identified Anaer cx Nom (Unsp spec)on 12-26-2021 Anaerobic microbial culture No anaerobic bacteria isolated. [facility] Work Phone: Bacteria identified Cx Nom ( Wound)on 12-26-2021 Wound Culture St[facility] lugdunensis [facility] [facility] Work Phone: Wound Culture Staphylococcus epidermidis [facility] Work Phone: Gram stain for investigation of transfusion reactionon 12-26-2021 Microscopic observation Gram stain Nom (Unsp spec) [facility] Work Phone: LABORATORYOrdered By: Favian Contreras on [...] Auto (Unsp spec) [#/Vol] 1.62 10*3/uL 0.83-4.51 [facility] Work Phone: Basophil percentageon 2021 Basophils/100 WBC (Bld) 0.6 % 0-1 [facility] Work Phone: Bilirubin [Mass/Vol] 0.30 mg/dL 0.20-1.00 [facility] Work Phone: Comment on above: For patients on eltr ombopag therapy, use of Dimension [place] TBIL is not recommended. Chloride [Moles/Vol] 85 mmol/L 98-107 [facility] Work Phone: Eosinophils/100 WBC (Bld) 1.0 % 0-5 [facility] Work Phone: Glucose [Mass/Vol] 165 mg/dL 74-106 [facility] Work Phone: Comment on above: Fasting Glucose resu lt greater than or equal to 126 mg/dL suggests DIABETES MELLITUS per A.D.A. criteria. Neutrophils (Bld) [#/Vol] 4.4 10*3/uL 2.0-7.7 [facility] Work Phone: Neutrophils/100 WBC (Bld) 65.4 % 47-70 [facility] Work Phone: Potassium [Moles/Vol] 3.3 mmol/L 3.5-5.1 [facility] Work Phone: Protein [Mass/Vol] 7.3 g/dL 6.4-8.2 [facility] Work Phone: Sodium [Moles/Vol] 127 mmol/L 136-145 [facility] Work Phone: WBC (Bld) [#/Vol] 6.8 10*3/uL 4.4-11.0 [facility] Work Phone: Blood erythrocytes count (nu mber/volume)on 11-20-2021 RBC (Bld) [#/Vol] 4.81 10*6/uL 4.2-5.4 [facility] Work Phone: Blood hemoglobin measurement (mass/volume)on 11-20-2021 Hemoglobin (Bld) [Mass/Vol] 14.4 g/dL 12.0-15.0 [facility] Work Phone: Blood lymphocytes/100 leukoc yteson 11-20-2021 Lymphocytes/100 WBC (Bld) 24.0 % 19-41 [facility] Work Phone: Blood monocytes/100 leukocyt eson 11-20-2021 Monocytes/100 WBC (Bld) 8.9 % 0-10 [facility] Work Phone: Blood platelet mean volumeon 11-20-2021 Platelet mean volume (Bld) [Entitic vol] 9.6 fL 6.2-12.0 [facility] Work Phone: Determination of erythrocyte mean corpuscular volume (MCV)on 11-20-2021 MCV (RBC) [Entitic vol] 82.5 fL 81-99 [facility] Work Phone: Erythrocyte sedimentation ra salud 11-20-2021 ESR (Bld) [Velocity] 30 mm/h 0-30 [facility]: Hematocrit Auto (Bld) [Volum e fraction]on 11-20-2021 Hematocrit (Bld) [Volume fraction] 39.7 % 37-47 [facility] Work Phone: Laboratory - Chemistry and C hemistry - challengeon 11-20-2021 ALP [Catalytic activity/Vol] 75 U/L 45-117 [facility] Work Phone: ALT [Catalytic activity/Vol] 15 U/L 13-56 [facility] Work Phone: CO2 [Moles/Vol] 36.0 mmol/L 21.0-32.0 [facility] Work Phone: Globulin (S) [Mass/Vol] 3.6 g/dL 2.2-4.2 [facility] Work Phone: Urea nitrogen/Creatinine [Mass ratio] 20.7 mg/mg 10-20 [facility] Work Phone: Laboratory - Hematology and Cell countson 11-20-2021 Erythrocyte distribution width (RBC) [Entitic vol] 34.5 fL 35.1-43.9 [facility] Work Phone: Erythrocyte distribution width (RBC) [Ratio] 11.4 % 11.6-14.6 [facility] Work Phone: Immature granulocytes/100 WBC (Bld) 0.100 % 0.0-0.9 [facility] Work Phone: Comment on above: IG% - Immature Granu locytes (promyelocytes, myelocytes and metamyelocytes) > 1% indicates that a LEFT SHIFT is Present. MCH (RBC) [Entitic mass] 29.9 pg 27.0-32.0 [facility] Work Phone: Nucleated RBC/100 WBC (Bld) [Ratio] 0 % 0-5 [facility] Work Phone: MCHC Auto (RBC) [Mass/Vol]on 11-20-2021 MCHC (RBC) [Mass/Vol] 36.3 g/dL 32-36 [facility] Work Phone: No Panel Informationon 11-20 Estimated Creatinine Clearance Calc 54.98 ml/min [facility] Work Phone: Estimated GFR (MDRD) Amer 87 mL/min >60 [facility] Work Phone: Comment on above: GFR Calc Estimated GFR (MDRD) Non-Af Amer 72 mL/min >60 [facility] Work Phone: Comment on above: Non- GFR Calc Platelets bldon 11-20-2021 Platelets (Bld) [#/Vol] 231 10*3/uL 150-450 [facility] Work Phone: Serum or plasma C reactive p rotein measurement (mass/volume)on 11-20-2021 CRP [Mass/Vol] 5.93 mg/L 0.0-3.0 [facility] Work Phone: Comment on above: C-Reactive Protein ( CRP) provides useful information for thediagnosis, therapy and monitoring of inflammatory processesand associated diseases. For the evaluation of Relative Riskfor Cardiovascular Disease, a High Sensitivity CRP (HSCRP)should be ordered. Serum or plasma albumin pavel urement (mass/volume)on 11-20-2021 Albumin [Mass/Vol] 3.7 g/dL 3.2-5.0 [facility] Work Phone: Serum or plasma albumin/glob ulin mass ratioon 11-20-2021 Albumin/Globulin [Mass ratio] 1.0 {ratio} 0.9-2.4 [facility] Work Phone: Serum or plasma calcium pavel urement (mass/volume)on 11-20-2021 Calcium [Mass/Vol] 9.4 mg/dL 8.5-10.1 [facility] Work Phone: Serum or plasma creatinine m easurement (mass/volume)on 11-20-2021 Creatinine [Mass/Vol] 0.82 mg/dL 0.55-1.02 [facility] Work Phone: Comment on above: The validity of the calculated GFR & GFRAA in patients over 70 years has not been determined. Clinical correlation is essential. Serum or plasma transthyreti n measurement (mass/volume)on 11-20-2021 Prealbumin [Mass/Vol] 20.3 mg/dL 20.0-40.0 [facility] Work Phone: Serum or plasma urea nitroge n measurement (mass/volume)on 11-20-2021 Urea nitrogen [Mass/Vol] 17 mg/dL 7-18 [facility] Work Phone: Thin prep Papanicolaou smear with manual screeningon 11-20-2021 Thin prep Papanicolaou smear with manual screening 15 U/L 15-37 [facility] Work Phone: Thin prep Papanicolaou smear with manual screening 6 5-15 [facility] Work Phone: Whole blood hemoglobin A1c/t otal hemoglobin ratio (mass fraction)on 11-20-2021 HbA1c (Bld) [Mass fraction] 7.7 % 3.8-5.6 [facility] Work Phone: Comment on above: Normal < 5.7 % Predi abetic 5.7 - 6.4 % Diabetic >or= 6.5 % Please note range changes. Bacteria identified Anaer cx Nom (Unsp spec)on 11-07-2021 Anaerobic microbial culture No anaerobic bacteria isolated. [facility] Work Phone: Bacteria identified Cx Nom ( Wound)on 11-07-2021 Wound Culture Staphylococcus epidermidis [facility] Work Phone: Wound Culture Staphylococcus auricularis [facility] Work Phone: Gram stain for investigation of transfusion reactionon 11-07-2021 Microscopic observation Gram stain Nom (Unsp spec) [facility] Work Phone: LABORATORYOrdered By: Donte Farris on [...] Anaerobic microbial culture No anaerobic bacteria isolated. [facility] Work Phone: Bacteria identified Cx Nom ( Wound)on 08-08-2021 Wound Culture Staphylococcus epidermidis [facility] Work Phone: Gram stain for investigation of transfusion reactionon 08-08-2021 Microscopic observation Gram stain Nom (Unsp spec) [facility] Work Phone: LABORATORYOrdered By: Laurie Romero [...] 09-16-2022 04:10-0500 Diastolic blood pressure 89 mm[Hg] [facility] 09-16-2022 04:10-0500 Heart rate 83 /min [facility] 09-16-2022 04:10-0500 Respiratory rate 16 /min [facility] 09-16-2022 04:10-0500 SaO2% (BldA) [Mass fraction] 99 % [facility] 09-16-2022 04:10-0500 Systolic blood pressure 154 mm[Hg] [facility] 09-15-2022 23:18-0500 Body height 162.56 cm [facility] 09-15-2022 23:18-0500 Body mass index (BMI) [Ratio] 30.5 kg/m2 [facility] 09-15-2022 23:18-0500 Body temperature 97 [degF] [facility] 09-15-2022 23:18-0500 Body weight 80.73 kg [facility] 01-22-2022 15:45-0400 Body mass index (BMI) [Ratio] 28.6 kg/m2 Dr. Mathieu Roland Work Phone: [facility] Work Phone: 01-22-2022 15:45-0400 Body temperature 97.9 [degF] Dr. Mathieu Roland Work Phone: [facility] Work Phone: 01-22-2022 15:45-0400 Diastolic blood pressure 62 mm[Hg] Dr. Mathieu Roland Work Phone: [facility] Work Phone: 01-22-2022 15:45-0400 Heart rate 77 /min Dr. Mathieu Roland Work Phone: [facility] Work Phone: 01-22-2022 15:45-0400 Systolic blood pressure 134 mm[Hg] Dr. Mathieu Roland Work Phone: [facility] Work Phone: 01-18-2022 15:05-0400 Body temperature 98.1 [degF] Dr. Mathieu Roland Work Phone: [facility] Work Phone: 01-18-2022 15:05-0400 Diastolic blood pressure 67 mm[Hg] Dr. Mathieu Roland Work Phone: [facility] Work Phone: 01-18-2022 15:05-0400 Heart rate 99 /min Dr. Mathieu Roland Work Phone: [facility] Work Phone: 01-18-2022 15:05-0400 Respiratory rate 18 /min Dr. Mathieu Roland Work Phone: [facility] Work Phone: 01-18-2022 15:05-0400 SaO2% (BldA) [Mass fraction] 96 % Dr. Mathieu Roland Work Phone: [facility] Work Phone: 01-18-2022 15:05-0400 Systolic blood pressure 126 mm[Hg] Dr. Mathieu Roland Work Phone: [facility] Work Phone: 01-16-2022 13:09-0400 Body height [address] Mathieu Roland Work Phone: [facility] Work Phone: 01-16-2022 13:09-0400 Body weight 89.[address] Mathieu Roland Work Phone: [facility] Work Phone: 01-16-2022 10:26-0400 Body mass index (BMI) [Ratio] 32.9 kg/m2 Dr. Mathieu Roland Work Phone: [facility] Work Phone: 01-14-2022 22:07-0400 Body temperature 98.6 [degF] Dr. Mathieu Roland Work Phone: [facility] Work Phone: 01-14-2022 22:07-0400 Diastolic blood pressure 67 mm[Hg] Dr. Mathieu Roland Work Phone: [facility] Work Phone: 01-14-2022 22:07-0400 Heart rate 71 /min Dr. Mathieu Roland Work Phone: [facility] Work Phone: 01-14-2022 22:07-0400 Respiratory rate 17 /min Dr. Mathieu Roland Work Phone: [facility] Work Phone: 01-14-2022 22:07-0400 SaO2% (BldA) [Mass fraction] 96 % Dr. Mathieu Roland Work Phone: [facility] Work Phone: 01-14-2022 22:07-0400 Systolic blood pressure 120 mm[Hg] Dr. Mathieu Roland Work Phone: [facility] Work Phone: 01-14-2022 17:40-0400 Body height 165.[address] Mathieu Roland Work Phone: [facility] Work Phone: 01-14-2022 17:40-0400 Body mass index (BMI) [Ratio] 29.1 kg/m2 Dr. Mathieu Roland Work Phone: [facility] Work Phone: 01-14-2022 17:40-0400 Body weight 79.[address] Mathieu Roland Work Phone: [facility] Work Phone: 01-14-2022 16:59-0400 Body temperature 99.14 [degF] IVELISSE RESand 9[facility] [employer] [facility] 01-14-2022 16:59-0400 Diastolic blood pressure 63 mm[Hg] IVELISSE RESand 9[facility] [employer] [facility] 01-14-2022 16:59-0400 Heart rate 71 /min [facility]AR[facility] [employer] [facility] 01-14-2022 16:59-0400 Respiratory rate 16 /min IVELISSE KAUR DO [facility] 01-14-2022 16:59-0400 Systolic blood pressure 99 mm[Hg] IVELISSE KAUR DO [facility] 01-08-2022 15:46-0400 Body mass index (BMI) [Ratio] 28.6 kg/m2 Dr. Mathieu Roland Work Phone: [facility] Work Phone: 01-08-2022 15:46-0400 Body temperature 97.2 [degF] Dr. Mathieu Roland Work Phone: [facility] Work Phone: 12-29-2021 00:21-0400 Body weight 78.[address] Mathieu Roland Work Phone: [facility] Work Phone: 12-29-2021 00:21-0400 Diastolic blood pressure 70 mm[Hg] Dr. Mathieu Roland Work Phone: [facility] Work Phone: 12-29-2021 00:21-0400 Heart rate 68 /min Dr. Mathieu Roland Work Phone: [facility] Work Phone: 12-29-2021 00:21-0400 Respiratory rate 18 /min Dr. Mathieu Roland Work Phone: [facility] Work Phone: 12-29-2021 00:21-0400 Systolic blood pressure 172 mm[Hg] Dr. Mathieu Roland Work Phone: [facility] Work Phone: 12-26-2021 15:06-0400 Body mass index (BMI) [Ratio] 28.6 kg/m2 Dr. Mathieu Roland Work Phone: [facility] Work Phone: 12-26-2021 15:06-0400 Body temperature 97.8 [degF] Dr. Mathieu Roland Work Phone: [facility] Work Phone: 12-26-2021 15:06-0400 Diastolic blood pressure 70 mm[Hg] Dr. Mathieu Roland Work Phone: [facility] Work Phone: 12-26-2021 15:06-0400 Heart rate 68 /min Dr. Mathieu Roland Work Phone: [facility] Work Phone: 12-26-2021 15:06-0400 Systolic blood pressure 172 mm[Hg] Dr. Mathieu Roland Work Phone: [facility] Work Phone: 12-19-2021 14:48-0400 Respiratory rate 18 /min Dr. Mathieu Roland Work Phone: [facility] Work Phone: 11-29-2021 00:20-0400 Body weight 78.[address] Mathieu Roland Work Phone: [facility] Work Phone: 11-28-2021 15:18-0400 Body mass index (BMI) [Ratio] 28.6 kg/m2 Dr. Mathieu Roland Work Phone: [facility] Work Phone: 11-28-2021 15:18-0400 Body temperature 98 [degF] Dr. Mathieu Roland Work Phone: [facility] Work Phone: 11-28-2021 15:18-0400 Diastolic blood pressure 69 mm[Hg] Dr. Mathieu Roland Work Phone: [facility] Work Phone: 11-28-2021 15:18-0400 Heart rate 92 /min Dr. Mahtieu Roland Work Phone: [facility] Work Phone: 11-28-2021 15:18-0400 Respiratory rate 18 /min Dr. Mathieu Roland Work Phone: [facility] Work Phone: 11-28-2021 15:18-0400 Systolic blood pressure 144 mm[Hg] Dr. Mathieu Roland Work Phone: [facility] Work Phone: 11-14-2021 15:05-0400 Body mass index (BMI) [Ratio] 28.6 kg/m2 Dr. Mathieu Roland Work Phone: [facility] Work Phone: 11-14-2021 15:05-0400 Body temperature 97.9 [degF] Dr. Mathieu Roland Work Phone: [facility] Work Phone: 11-14-2021 15:05-0400 Diastolic blood pressure 56 mm[Hg] Dr. Mathieu Roland Work Phone: [facility] Work Phone: 11-14-2021 15:05-0400 Heart rate 79 /min Dr. Mathieu Roland Work Phone: [facility] Work Phone: 11-14-2021 15:05-0400 Systolic blood pressure 103 mm[Hg] Dr. Mathieu Roland Work Phone: [facility] Work Phone: 11-07-2021 13:35-0500 Respiratory rate 16 /min Dr. Mathieu Roland Work Phone: [facility] Work Phone: 10-28-2021 23:19-0500 Body weight 78.[address] Mathieu Roland Work Phone: [facility] Work Phone: 10-24-2021 13:48-0500 Body mass index (BMI) [Ratio] 28.6 kg/m2 Dr. Mathieu Roland Work Phone: [facility] Work Phone: 10-24-2021 13:48-0500 Body temperature 96.8 [degF] Dr. Mathieu Roland Work Phone: [facility] Work Phone: 10-24-2021 13:48-0500 Diastolic blood pressure 76 mm[Hg] Dr. Mathieu Roland Work Phone: [facility] Work Phone: 10-24-2021 13:48-0500 Respiratory rate 16 /min Dr. Mathieu Roland Work Phone: [facility] Work Phone: 10-24-2021 13:48-0500 Systolic blood pressure 181 mm[Hg] Dr. Mathieu Roland Work Phone: [facility] Work Phone: 10-17-2021 13:31-0500 Heart rate 75 /min Dr. Mathieu Roland Work Phone: [facility] Work Phone: 09-30-2021 23:13-0500 Body weight 78.[address] Mathieu Roland Work Phone: [facility] Work Phone: 09-26-2021 13:01-0500 Body mass index (BMI) [Ratio] 28.6 kg/m2 Dr. Mathieu Roland Work Phone: [facility] Work Phone: 09-26-2021 13:01-0500 Body temperature 96.6 [degF] Dr. Mathieu Roland Work Phone: [facility] Work Phone: 09-26-2021 13:01-0500 Diastolic blood pressure 64 mm[Hg] Dr. Mathieu Roland Work Phone: [facility] Work Phone: 09-26-2021 13:01-0500 Heart rate 78 /min Dr. Mathieu Roland Work Phone: [facility] Work Phone: 09-26-2021 13:01-0500 Respiratory rate 16 /min Dr. Mathieu Roland Work Phone: [facility] Work Phone: 09-26-2021 13:01-0500 Systolic blood pressure 157 mm[Hg] Dr. Mathieu Roland Work Phone: [facility] Work Phone: 08-30-2021 23:06-0500 Body weight 78.[address] Mathieu Roland Work Phone: [facility] Work Phone: 08-15-2021 11:58-0500 Body mass index (BMI) [Ratio] 28.6 kg/m2 Dr. Mathieu Roland Work Phone: [facility] Work Phone: 08-15-2021 11:58-0500 Body temperature 98.7 [degF] Dr. Mathieu Roland Work Phone: [facility] Work Phone: 08-15-2021 11:58-0500 Diastolic blood pressure 72 mm[Hg] Dr. Mathieu Roland Work Phone: [facility] Work Phone: 08-15-2021 11:58-0500 Heart rate 79 /min Dr. Mathieu Roland Work Phone: [facility] Work Phone: 08-15-2021 11:58-0500 Respiratory rate 16 /min Dr. Mathieu Roland Work Phone: [facility] Work Phone: 08-15-2021 11:58-0500 Systolic blood pressure 176 mm[Hg] Dr. Mathieu Roland Work Phone: [facility] Work Phone: 08-08-2021 14:14-0500 Body height 165.[address] Mathieu Roland Work Phone: [facility] Work Phone: 08-08-2021 14:14-0500 Body weight 78.[address] Mathieu Roland Work Phone: [facility] Work Phone: Encounters Encounter Date Encounter Type Care Provider Facility Start: 02-28-2025 End: 02-28-2025 ambulatory MATHIEU ROLAND DO [facility] Start: 02-28-2025 End: 02-28-2025 Patient encounter procedure MATHIEU ROLAND DO [facility] Start: 02-23-2025 End: 02-23-[address] JAMESON GARCIA DO [facility] Start: 02-23-2025 End: 02-23-[address] JAMESON GARCIA DO [facility] Start: 02-21-2025 End: 02-25-[address] JAMESON GARCIA DO [facility] Start: 02-21-2025 End: 02-25-[address] JAMESON GARCIA DO [facility] Start: 02-20-[address] JAMESON GARCIA DO Facili ty:[facility] Start: 02-17-[address] JAMESON GARCIA DO Facili ty:[facility] Start: 01-12-2025 ambulatory MATHIEU ROLAND DO Facil ity[facility] Start: 01-09-2025 End: 01-09-2025 ambulatory MATHIEU ROLAND DO Facility[facility] Start: 01-09-2025 End: 01-09-2025 Patient encounter procedure MARQUISE LEHMAN MD [facility] Start: 10-12-2024 End: 10-12-2024 ambulatory MATHIEU ROALND DO Facility[facility] Start: 10-12-2024 End: 10-12-2024 Patient encounter procedure MATHIEU ROLAND DO [facility] Start: 09-05-2024 End: 09-05-2024 ambulatory MARQUISE LEHMAN MD Facility[facility] Start: 09-05-2024 End: 09-05-2024 Patient encounter procedure MARQUISE LEHMAN MD [facility] Start: 08-29-2024 End: 08-29-2024 ambulatory MATHIEU ROLAND DO [facility] Start: 08-29-2024 End: 08-29-2024 Patient encounter procedure MATHIEU ABBOTTY DO [facility] Start: 08-03-2024 End: 08-03-2024 ambulatory MATHIEU ROLAND DO Facility[facility] Start: 08-03-2024 End: 08-03-2024 Patient encounter procedure MATHIEU ABBOTTY DO [facility] Start: 02-29-2024 End: 02-29-2024 ambulatory MARQUISE LEHMAN MD Facility:[facility] Start: 02-29-2024 End: 02-29-2024 Patient encounter procedure MARQUISE LEHMAN MD [facility] Start: 10-20-2023 End: 10-20-2023 ambulatory MARQUISE LEHMAN MD Facility:[facility] Start: 10-20-2023 End: 10-20-2023 Patient encounter procedure MARQUISE LEHMAN MD [facility] Start: 08-22-2023 End: 08-22-2023 Emergency department patient visit Mathieu Roland Facility:[facility] Start: 08-20-2023 End: 08-20-2023 ambulatory MATHIEU ABBOTTY Facility:[facility] Start: 08-20-2023 End: 08-20-2023 Patient encounter procedure MATHIEU ROLAND DO [facility] Start: 06-23-2023 End: 06-23-2023 ambulatory MATHIEU ROLAND DO Facility:[facility] Start: 02-12-2023 End: 02-12-2023 Patient encounter procedure MARQUISE LEHMAN MD [facility] Start: 10-29-2022 End: 10-29-2022 Patient encounter procedure [facility]Labor[facility], Specimen Start: 10-29-2022 End: 10-29-2022 ambulatory Edin Brayan [facility] Work Phone: Start: 10-[facility] Start: 09-25-2022 End: 09-25-2022 Patient encounter procedure MARQUISE LEHMAN MD [facility] Start: 09-16-2022 End: 09-16-2022 Emergency department patient visit Whitney Ott Facility:[facility] Start: 09-15-2022 End: 09-16-2022 Emergency department patient visit [facility] Start: 06-02-2022 End: 06-02-2022 Patient encounter procedure MATHIEU ROLAND DO [facility] Start: 04-28-2022 End: 04-28-2022 Patient encounter procedure MARQUISE LEHMAN MD [facility] Start: 03-05-2022 End: 03-05-2022 Patient encounter procedure MARQUISE LEHMAN MD [facility] Start: 01-22-2022 End: 01-28-[address] [facility] Start: 01-18-2022 Non-patient / Non-visit Dr. Mathieu Roland Work Phone: [facility] Start: 01-17-2022 Non-patient / Non-visit Dr. Mathieu Roland Work Phone: [facility] Start: 01-16-2022 Non-patient / Non-visit Dr. Mathieu Roland Work Phone: [facility] Start: 01-15-2022 Non-patient / Non-visit Dr. Mathieu Roland Work Phone: [facility] Start: 01-14-2022 End: 01-18-2022 Evaluation and management of inpatient Dr. Mathieu Roland Work Phone: [facility] 3 Start: 01-14-2022 Non-patient / Non-visit Dr. Mathieu Roland Work Phone: [facility] Start: 01-14-2022 End: 01-14-2022 Emergency department patient visit IVELISSE KAUR DO [facility] Start: 01-13-[address] Leona Roland Work Phone: [facility] Start: 01-10-2022 End: 01-14-[address] DO [facility] Start: 12-26-2021 Non-patient / Non-visit Dr. Mathieu Roland Work Phone: [facility] Start: 12-26-2021 End: 12-28-[address] Mathieu Roland Work Phone: [facility] Start: 12-20-2021 End: 12-20-2021 Patient encounter procedure MATHIEU ROLAND DO [facility] Start: 12-19-2021 Non-patient / Non-visit Dr. Mathieu Roland Work Phone: [facility] Start: 12-12-2021 Non-patient / Non-visit Dr. Mathieu Roland Work Phone: [facility] Start: 11-28-2021 Non-patient / Non-visit Dr. Mathieu Roland Work Phone: [facility] Start: 11-28-2021 End: 11-28-[address] Mathieu Roland Work Phone: [facility] Start: 11-21-2021 Non-patient / Non-visit Dr. Mathieu Roland Work Phone: [facility] Start: 11-21-2021 End: 11-28-[address] Mathieu Roland Work Phone: [facility] Start: 11-14-2021 Non-patient / Non-visit Dr. Mathieu Roland Work Phone: [facility] Start: 11-14-[address] Leona Roland Work Phone: [facility] Start: 11-12-2021 End: 11-12-[address] Mathieu Roland Work Phone: [facility] Start: 11-07-2021 Non-patient / Non-visit Dr. Mathieu Roland Work Phone: [facility] Start: 10-31-2021 Non-patient / Non-visit Dr. Mathieu Roland Work Phone: [facility] Start: 10-24-2021 Non-patient / Non-visit Dr. Mathieu Roland Work Phone: [facility] Start: 10-24-2021 End: 10-28-[address] Mathieu Roland Work Phone: [facility] Start: 10-17-2021 Non-patient / Non-visit Dr. Mathieu Roland Work Phone: [facility] Start: 10-16-2021 End: 10-16-2021 Patient encounter procedure MARQUISE LEHMAN MD [facility] Start: 10-15-2021 End: 10-15-2021 Patient encounter procedure MARQUISE LEHMAN MD [facility] Start: 10-10-2021 Non-patient / Non-visit Dr. Mathieu Roland Work Phone: [facility] Start: 09-26-2021 Non-patient / Non-visit Dr. Mathieu Roland Work Phone: [facility] Start: 09-26-2021 End: 09-30-[address] Mathieu Roland Work Phone: [facility] Start: 09-19-2021 Non-patient / Non-visit Dr. Mathieu Roland Work Phone: [facility] Start: 09-12-2021 Non-patient / Non-visit Dr. Mathieu Roland Work Phone: [facility] Start: 09-05-2021 Non-patient / Non-visit Dr. Mathieu Roland Work Phone: [facility] Start: 08-15-2021 Non-patient / Non-visit Dr. Mathieu Roland Work Phone: [facility] Start: 08-15-2021 End: 08-30-[address] Mathieu Roland Work Phone: [facility] Start: 08-13-2021 End: 08-13-[address] JAMESON GARCIA DO [facility] Start: 08-08-2021 Non-patient / Non-visit Dr. Mathieu Roland Work Phone: [facility] Start: 07-19-2021 End: 07-19-[address] JAMESON GARCIA DO [facility] Start: 06-19-2021 End: 06-19-2021 Patient encounter procedure MARQUISE LEHMAN MD [facility] Procedures Date Procedure Procedure Detail [...] Author Start: 01-16-2022 Fungal Culture Fungal Culture [facility] Work Phone: Start: 01-16-2022 Fungal Smear Fungal Smear [facility] Work Phone: Start: 01-14-2022 Bacteria identified in Blood by Culture Blood Culture [facility] Work Phone: Start: 01-14-2022 Microscopic observat ion [Identifier] in Unspecified specimen by Gram stain Gram Stain [facility] Work Phone: Start: 01-14-2022 Wound Culture Wound Culture [facility] Work Phone: Start: 12-26-2021 Anaerobic Culture Anaerobic Culture [facility] Work Phone: Start: 12-26-2021 Microbial culture, routine Wound Culture [facility] Work Phone: Patient Education ED Gastroenter itis, Viral (Adult) [facility] Work Phone: Patient referral [facility] Work Phone: Immunizations Immunization Date Immunization Notes Care Provider Fa [facility] 08-03-2024 influenza virus vaccine, unspecified formulation DR JAMESON GARCIA DO [facility] 08-03-2024 RSV vaccine preF3, recombinant DR JAMESON GARCIA DO [facility] 08-03-2024 SARS-CoV-2 (COVID-19 ) [id number] DR JAMESON GARCIA DO [facility] 06-25-2023 SARS-CoV-2 (COVID-19 ) [id number] MATHIEU ROLAND DO [facility] 04-22-2023 influenza virus vaccine, unspecified formulation MATHIEU ROLAND DO [facility] 04-22-2023 pneumococcal 20-sandro nt conjugate vaccine MATHIEU ROLAND DO [facility] 06-24-2022 influenza virus vaccine, unspecified formulation MARQUISE LEHMAN MD [facility] 12-17-2021 Covid (Moderna) Dr. Mathieu Roland Work Phone: [facility] 07-31-2021 SARS-CoV-2 (COVID-19 ) [id number] vaccine MARQUISE LEHMAN MD [facility] 06-19-2021 influenza virus vaccine, unspecified formulation MARQUISE LEHMAN MD [facility] 11-09-2020 COVID-19, mRNA, LNP- S, PF, 100 mcg/ 0.5 mL dose; Translations: [Moderna COVID-19 Vaccine] MARQUISE LEHMAN MD [facility] 10-12-2020 COVID-19, mRNA, LNP- S, PF, 100 mcg/ 0.5 mL dose; Translations: [Moderna COVID-19 Vaccine] MARQUISE LEHMAN MD [facility] 05-16-2020 influenza virus vaccine, unspecified formulation MARQUISE LEHMAN MD [facility] 06-04-2019 influenza virus vaccine, unspecified formulation MARQUISE LEHMAN MD [facility] 01-12-2019 zoster vaccine recombinant MARQUISE LEHMAN MD [facility] 12-24-2018 pneumococcal polysaccharide vaccine, 23 valent MARQUISE LEHMAN MD [facility] 06-07-2018 influenza virus vaccine, unspecified formulation MARQUISE LEHMAN MD [facility] 03-23-2018 tetanus toxoid, redu jo diphtheria toxoid, and acellular pertussis vaccine, adsorbed MARQUISE LEHMAN MD [facility] 05-20-2017 influenza virus vaccine, unspecified formulation MARQUISE LEHMAN MD [facility] 05-20-2017 pneumococcal conjuga te vaccine, 13 heathent MARQUISE LEHMAN MD [facility] 05-01-2017 influenza virus vaccine, unspecified formulation MARQUISE LEHMAN MD [facility] 05-01-2017 pneumococcal conjuga te vaccine, 13 tyler LEHMAN MD [facility] 04-30-2017 pneumococcal conjuga te vaccine, 13 tyler LEHMAN MD [facility] 06-04-2016 influenza virus vaccine, unspecified formulation MARQUISE LEHMAN MD [facility] 08-31-2014 influenza virus vaccine, unspecified formulation MARQUISE LEHMAN MD [facility] Payers Date Payer Category Payer Private Health Insurance [facility] [id number] 2024 Medicare [id number] 2022 [facility] [id number] 2016 Unknown [id number] 1948 Unknown [id number] 2.16.8 [id number] 1948 Unknown [id number] 2.16.8 [id number] 1948 Unknown [id number] 2.16.8 40.1.369555.3.579.2.62 1948 Unknown [id number] 2.16.8 40.1.621455.3.579.2.627 1948 Unknown [id number] 2.16.8 40.1.284814.3.579.2.627 1948 Unknown [id number] 2.16. [id number] 1948 Unknown [id number] 2.16. 840.1.329915.3.579.2.627 1948 Unknown [id number] 2.16. 840.1.436405.3.579.2.627 1948 Unknown [id number] 2.16. 840.1.633183.3.579.2.627 1948 Unknown [id number] 2.16. 840.1.896409.3.579.2.627 1948 Unknown [id number] 2.16.8 40.1.170153.3.579.2.627 1948 Unknown [id number] 2.16.8 40.1.389592.3.579.2.627 1948 Unknown [id number] 2.16.8 40.1.783135.3.579.2.627 1948 Unknown [id number] 2.16.8 40.1.612720.3.579.2.627 1948 Unknown [id number] 2.16.8 40.1.755893.3.579.2.627 1948 Unknown [id number] 2.16.8 40.1.147720.3.579.2.627 1948 Unknown [id number] 2.16.8 40.1.737887.3.579.2.627 Unknown [id number] 2.16.8 40.1.684257.3.579.2.462 Unknown [id number] 2.16.8 40.1.851952.3.579.2.462 Unknown [id number] 2.16.8 40.1.954244.3.579.2.462 Unknown [id number] 2.16.8 [id number] Social History Date Type Detail Facility Start: 09-12-2020 End: 10-20-2024 Never smoked tobacco (finding) [facility] Start: 1950 Sex Assigned At Female [facility] Start: 08-08-2021 End: 09-15-2022 Tobacco smoking status TNIS Unknown if ever smoked [facility] Start: 07-12-2020 None [facility] Start: 07-16-2020 Spouse/ Signif icant Other [facility] Start: 07-16-2020 Non-smoker;Secondhand [facility] Sexual Orientation [facility] Start: 02-23-2019 Sex Female (finding) [facility] Functional Status Date Assessment Result Facility 01-18-2022 Functional status Ambulates [facility] Work Phone: Mental Status Date Assessment Result Facility 01-18-2022 Cognitive function Level Of Consciousness Drowsy [facility] Work Phone: 01-17-2022 Cognitive function Voice/Name [facility] Work Phone: Clinical Notes 06-02-2022 to 08-29-2024 Note Date & Type Note Facility 08-29-2024 Note Exam Date Time Procedure Performing Provider Status 08/29/24 2:[address] Head or Brain w/o Contrast KAZ GUSTAFSON MD; Auth (Verified) [id number] ORIGINAL HISTORY: Dizziness, tinnitus, vertigo COMPARISON: No [...] Date: 08/29/2024 2:35:35 PM Ordering Provider: MATHIEU [facility]07-01-2024 Note ORIGINAL EXAMINATION: ULTRASOUND OF THE THYROID [...] Sign Date: 02/29/2024 2:06:10 PM Ordering Provider: [place] [address]-03-2022 Note ORIGINAL EXAMINATION: BONE DENSITOMETRY 06/02/2022 2:46 [...] 4:12:45 PM Ordering Provider: MATHIEU ROLAND [facility]10-03-2022 Note ORIGINAL EXAMINATION: BONE DENSITOMETRY 06/02/2022 2:46 [...] Date: 06/02/2022 4:12:45 PM [facility] App[facility]ments Appointment Date:06/25/2021 04:00:00 PM Scheduled Provider:MARQUISE LEHMAN MD Location:[facility] Appointment Type:ENDO OV Appointment Date:09/17/2021 03:30:00 PM Scheduled Provider:MATHIEU ROLAND DO Location:[facility] Appointment Type:PC OV Future Scheduled Tests Radiology* NM Myocardial Spect Rest/Stress 06/22/20 [facility] Evaluation + Plan note Future Appointments Appointment Date:08/15/2021 03:30:00 PM Scheduled Provider:MATHIEU ROLAND DO Location:[facility] Appointment Type:PC OV Appointment Date:09/17/2021 03:30:00 PM Scheduled Provider:MATHIEU ROLAND DO Location:[facility] Appointment Type:PC OV Appointment Date:10/22/2021 03:30:00 PM Scheduled Provider:MARQUISE LEHMAN MD Location:[facility] Appointment Type:ENDO OV Future Scheduled Tests Laboratory* Thyroid Stimulating Hormone 10/26/21 * A1C Hemoglobin 10/26/21 * Microalbumin Level Urine 10/26/21 * Vitamin D Level 10/26/21 * Complete Metabolic Panel 10/26/21 Radiology* XR Foot Minimum 3 Views Left 07/19/21 [facility] Evaluation + Plan note Future Appointments Appointment Date:10/22/2021 03:30:00 PM Scheduled Provider:MARQUISE LEHMAN MD Location:[facility] Appointment Type:ENDO OV Appointment Date:12/17/2021 04:00:00 PM Scheduled Provider:MATHIEU ROLAND DO Location:[facility] Appointment Type:PC OV Controlled Medication Future Scheduled Tests Laboratory* COVID-19 Only (AO) 08/29/21 * Microalbumin Level Urine 10/26/21 Radiology* XR Foot Minimum 3 Views Left 07/19/21 [facility] Evaluation + Plan note Future Appointments Appointment Date:10/22/2021 03:30:00 PM Scheduled Provider:MARQUISE LEHMAN MD Location:[facility] Appointment Type:ENDO OV Appointment Date:12/17/2021 04:00:00 PM Scheduled Provider:MATHIEU ROLAND DO Location:[facility] Appointment Type:PC OV Controlled Medication Future Scheduled Tests Laboratory* COVID-19 Only (AO) 08/29/21 Radiology* XR Foot Minimum 3 Views Left 07/19/21 [facility] Evaluation + Plan note Future Appointments Appointment Date:01/14/2022 04:00:00 PM Scheduled Provider:MATHIEU ROLAND DO Location:[facility] Appointment Type:PC Wellness Medicare Appointment Date:01/23/2022 03:15:00 PM Scheduled Provider:MARQUISE LEHMAN MD Location:[facility] Appointment Type:ENDO OV Appointment Date:03/26/2022 04:00:00 PM Scheduled Provider:MATHIEU ROLAND DO Location:[facility] Appointment Type:PC OV Future Scheduled Tests [...] Minimum 3 Views Left 07/19/21 [facility] Evaluation + Plan note Future Appointments Appointment Date:01/23/2022 03:15:00 PM Scheduled Provider:MARQUISE LEHMAN MD Location:[facility] Appointment Type:ENDO OV Appointment Date:03/26/2022 04:00:00 PM Scheduled Provider:MATHIEU ROLAND DO Location:[facility] Appointment Type:PC OV Future Scheduled Tests [...] Minimum 3 Views Left 07/19/21 [facility] Evaluation + Plan note Future Appointments Appointment Date:03/06/2022 02:45:00 PM Scheduled Provider:MARQUISE LEHMAN MD Location:[facility] Appointment Type:ENDO OV Appointment Date:04/16/2022 02:00:00 PM Scheduled Provider:MATHIEU ROLAND DO Location:[facility] Appointment Type:PC OV Future Scheduled Tests Laboratory* Complete Metabolic Panel 12/11/21 * Complete Metabolic Panel 11/21/21 * COVID-19 Only (AO) 08/29/21 Radiology* XR Foot Minimum 3 Views Left 07/19/21 [facility] Evaluation + Plan note Future Appointments Appointment Date:06/17/2022 02:30:00 PM Scheduled Provider:MATHIEU ROLAND DO Location:[facility] Appointment Type:PC OV Controlled Medication Appointment Date:07/10/2022 02:45:00 PM Scheduled Provider:MARQUISE LEHMAN MD Location:[facility] Appointment Type:ENDO OV Future Scheduled Tests [...] Density DEXA Axial Skeleton 04/23/22 [facility] Evaluation + Plan note Future Appointments Appointment Date:06/17/2022 02:30:00 PM Scheduled Provider:MATHIEU ROLAND DO Location:[facility] Appointment Type:PC OV Controlled Medication Appointment Date:07/10/2022 02:45:00 PM Scheduled Provider:MARQUISE LEHMAN MD Location:[facility] Appointment Type:ENDO OV Future Scheduled Tests Laboratory* Thyroid Stimulating Hormone 07/07/22 * A1C Hemoglobin 07/07/22 * Lipid Profile 07/07/22 * Hepatitis C Antibody IgG 04/23/22 * Vitamin D Level 07/07/22 * Complete Metabolic Panel 12/11/21 * Complete Metabolic Panel 11/21/21 * Complete Metabolic Panel 07/07/22 * COVID-19 Only (AO) 08/29/21 Radiology* XR Foot Minimum 3 Views Left 07/19/21 [facility] Evaluation + Plan note Future Appointments Appointment Date:10/02/2022 11:30:00 AM Scheduled Provider:MARQUISE LEHMAN MD Location:[facility] Appointment Type:ENDO OV Appointment Date:10/21/2022 03:30:00 PM Scheduled Provider:MATHIEU ROLAND DO Location:[facility] Appointment Type:PC OV Appointment Date:12/16/2022 03:30:00 PM Scheduled Provider:MATHIEU ROLAND DO Location:[facility] Appointment Type:PC OV Controlled Medication Future Scheduled Tests Laboratory* Hepatitis C Antibody IgG 04/23/22 * Complete Metabolic Panel 12/11/21 * Complete Metabolic Panel 11/21/21 [facility] Evaluation + Plan note Future Appointments Appointment Date:02/19/2023 03:00:00 PM Scheduled Provider:MARQUISE LEHMAN MD Location:[facility] Appointment Type:ENDO OV Appointment Date:03/18/2023 04:00:00 PM Scheduled Provider:MATHIEU ROLAND DO Location:[facility] Appointment Type:PC OV Controlled Medication Diagnostic Tests Pending * Vitamin D Level 02/12/23 Future Scheduled Tests Laboratory* Hepatitis C Antibody IgG 04/23/22 [facility] Evaluation + Plan note Future Appointments Appointment Date:09/10/2023 04:30:00 PM Scheduled Provider:MATHIEU ROLAND DO Location:[facility] Appointment Type:PC OV Appointment Date:10/27/2023 03:15:00 PM Scheduled Provider:MARQUISE LEHMAN MD Location:[facility] Appointment Type:ENDO OV Future Scheduled Tests Laboratory* Thyroid Stimulating Hormone 10/26/23 * Free T4 10/26/23 * A1C Hemoglobin 10/26/23 * Lipid Profile 10/26/23 * Albumin/Creatinine Ratio, Random Urine 10/26/23 * Vitamin D Level 10/26/23 * Complete Metabolic Panel 10/26/23 Radiology* US Thyroid 10/26/23 [facility] Evaluation + Plan note Future Appointments Appointment Date:10/27/2023 03:15:00 PM Scheduled Provider:MARQUISE LEHMAN MD Location:[facility] Appointment Type:ENDO OV Appointment Date:12/10/2023 03:00:00 PM Scheduled Provider:MATHIEU ROLAND DO Location:[facility] Appointment Type:PC OV Controlled Medication Future Scheduled Tests Laboratory* Complete Metabolic Panel 09/01/23 Radiology* US Thyroid 10/26/23 [facility] Evaluation + Plan note Future Appointments Appointment Date:03/10/2024 02:15:00 PM Scheduled Provider:MARQUISE LEHMAN MD Location:[facility] Appointment Type:ENDO OV Appointment Date:03/17/2024 03:30:00 PM Scheduled Provider:MATHIEU ROLAND DO Location:[facility] Appointment Type:PC OV Controlled Medication Future Scheduled Tests Laboratory* Complete Metabolic Panel 09/01/23 Radiology* US Thyroid 10/26/23 [facility] Evaluation + Plan note Future Appointments Appointment Date:08/22/2024 01:00:00 PM Scheduled Provider: Location:[facility] Appointment Type:MA Mammogram Screening Bilateral w/ [place] Appointment Date:08/22/2024 01:30:00 PM Scheduled Provider: Location:[facility] Appointment Type:BD Bone Density DEXA Axial Skeleton Appointment Date:09/08/2024 03:00:00 PM Scheduled Provider:MARQUISE LEHMAN MD Location:[facility] Appointment Type:ENDO OV Appointment Date:09/15/2024 02:30:00 PM Scheduled Provider:MATHIEU ROLAND DO Location:[facility] Appointment Type:PC OV Controlled Medication Future [...] 08/22/24 * US Thyroid 10/26/23 [facility] Evaluation + Plan note Future Appointments Appointment Date:09/08/2024 03:00:00 PM Scheduled Provider:MARQUISE LEHMAN MD Location:[facility] Appointment Type:ENDO OV Appointment Date:09/15/2024 02:30:00 PM Scheduled Provider:MATHIEU ROLAND DO Location:[facility] Appointment Type:PC OV Controlled Medication Future Scheduled Tests Laboratory* Thyroid Stimulating Hormone 09/10/24 * Free T4 09/10/24 * A1C Hemoglobin 09/10/24 * Free T3 09/10/24 * Lipid Profile 09/10/24 * Albumin/Creatinine Ratio, Random Urine 09/10/24 * Vitamin D Level 09/10/24 * Complete Metabolic Panel 09/10/24 * Complete Metabolic Panel 09/01/23 Radiology* US Thyroid 10/26/23 [facility] Evaluation + Plan note Future Appointments Appointment Date:09/08/2024 03:00:00 PM Scheduled Provider:MARQUISE LEHMAN MD Location:[facility] Appointment Type:ENDO OV Appointment Date:09/15/2024 02:30:00 PM Scheduled Provider:MATHIEU ROLAND DO Location:[facility] Appointment Type:PC OV Controlled Medication Future Scheduled Tests Radiology* US Thyroid 10/26/23 [facility] Evaluation + Plan note Future Appointments Appointment Date:10/13/2024 03:00:00 PM Scheduled Provider: Location:[facility] Appointment Type:ENDO Nurse Appointment Date:10/20/2024 04:00:00 PM Scheduled Provider:MATHIEU ROLAND DO Location:[facility] Appointment Type:PC OV Appointment Date:01/12/2025 03:00:00 PM Scheduled Provider:MARQUISE LEHMAN MD Location:[facility] Appointment Type:ENDO OV Future Scheduled Tests Laboratory* Thyroid Stimulating Hormone 01/06/25 * A1C Hemoglobin 01/06/25 * Free T3 01/06/25 * Lipid Profile 01/06/25 * Albumin/Creatinine Ratio, Random Urine 01/06/25 * Vitamin D Level 01/06/25 * Complete Metabolic Panel 01/06/25 Radiology* US Thyroid 10/26/23 [facility] SmartMenuCardaluation + Plan note Future Appointments Appointment Date:01/12/2025 03:00:00 PM Scheduled Provider:MARQUISE LEHMAN MD Location:[facility] Appointment Type:ENDO OV Appointment Date:03/16/2025 02:30:00 PM Scheduled Provider:MATHIEU ROLAND DO Location:[facility] Appointment Type:PC OV Controlled Medication [facility] Evaluation + Plan note Future Appointments Appointment Date:03/01/2025 04:00:00 PM Scheduled Provider:Jay Khan PT Location:[facility] Appointment Type:PT Treatment [facility] Appointment Date:03/16/2025 02:30:00 PM Scheduled Provider:MATHIEU ROLAND DO Location:[facility] Appointment Type:PC OV Controlled Medication Appointment Date:03/20/2025 04:00:00 PM Scheduled Provider: Location:[facility] Appointment Type:Echo - Echocardiogram Adult Appointment Date:06/07/2025 02:00:00 PM Scheduled Provider: Location:[facility] Appointment Type:US Thyroid Appointment Date:06/15/2025 03:30:00 PM Scheduled Provider:MARQUISE LEHMAN MD Location:[facility] Appointment Type:ENDO OV Future Scheduled Tests Laboratory* Basic Metabolic Panel 02/23/25 * Thyroid Stimulating Hormone 06/14/25 * Free T4 06/14/25 * A1C Hemoglobin 06/14/25 * Lipid Profile 06/14/25 * Albumin/Creatinine Ratio, Random Urine 06/14/25 * Vitamin D Level 06/14/25 * Complete Metabolic Panel 06/14/25 Radiology* US Thyroid 06/07/25 [facility] Evaluation + Plan note Future Appointments Appointment Date:03/01/2025 04:00:00 PM Scheduled Provider:Jay Khan PT Location:[facility] Appointment Type:PT Treatment [facility] Appointment Date:03/16/2025 02:30:00 PM Scheduled Provider:MATHIEU ROLAND DO Location:[facility] Appointment Type:PC OV Controlled Medication Appointment Date:03/20/2025 04:00:00 PM Scheduled Provider: Location:[facility] Appointment Type:Echo - Echocardiogram Adult Appointment Date:06/07/2025 02:00:00 PM Scheduled Provider: Location:[facility] Appointment Type:US Thyroid Appointment Date:06/15/2025 03:30:00 PM Scheduled Provider:MARQUISE LEHMAN MD Location:[facility] Appointment Type:ENDO OV Future Scheduled Tests Laboratory* Basic Metabolic Panel 02/24/25 * Basic Metabolic Panel 02/23/25 * Thyroid Stimulating Hormone 06/14/25 * Free T4 06/14/25 * A1C Hemoglobin 06/14/25 * Lipid Profile 06/14/25 * Albumin/Creatinine Ratio, Random Urine 06/14/25 * Vitamin D Level 06/14/25 * Complete Metabolic Panel 06/14/25 Radiology* US Thyroid 06/07/25 [facility] Evaluation note* Diagnosis Onset Date Resolution Status [...] 2 diabetes mellitus acute Hypertension chronic Hypothyroidism [facility] Work Phone: Evaluation note* Diagnosis Onset [...] Wound infection acute Type 2 diabetes mellitus [facility] Work Phone: Evaluation note* Diagnosis Onset Date [...] chronic Type 2 diabetes mellitus chr onic [facility] Work Phone: Evaluation note* Diagnosis Onset [...] Gangrene of toe of left foot resolved [facility] Work Phone: Evaluation noteNo assessment information available [facility] Work Phone: Hospital course Narrative No data available for this section [facility] Discharge instructions No data available for this section [facility] Progress note No data available for this section [facility] Chief Complaint and Reason for Visit Chief [...] November 16th, 2 020 6:34pm Power of Bottom Bleacher No July 16, 2020 6:34pm Advance Directive Response Recorded Date/ Time Living Will No January 14, 2022 7 :06pm Power of Bottom Bleacher No January 14, 2022 7:06pm Advance Directive Response Recorded Date/ Time Living Will No January 14, 2022 1 1:01pm Power of Bottom Bleacher No January 14, 2022 11:01pm Advance Directive Response Recorded Date/ Time Living Will No September 15 11:53pm Power of Bottom Bleacher No September 15, 2022 11:53pm Summary Purpose [...] Member Role: Primary Care Physician Address: Address: [address] [place] [address] [facility] [address] Name: MARQUISE LEHMAN MD Position: P4 Physician - Endocrinology Med Service: Active Provider Member Role: Medical Assisting Instructor Address: Address: [address] [place] [address], [place] [address]- Name: CURT JORDAN DPM Position: Physician Med Service: Admitting Member Role: Car Rental Sales Assistant Address: Address: [address] [place] [address], [place] [address] [facility] [place], [place] [id number] [place] [address] Care Team Related Persons Name: ALBERTO GREGORY Care Team Personnel Name: MATHIEU ROLAND DO Position: P4 Physician - Primary Care Member Role: Primary Care Physician Address: Address: [address] [place] [address] Name: MARQUISE LEHMAN MD Position: P4 Physician - Endocrinology Address: Address: [address] [place] [address] [place], [place] [address]- Name: CURT JORDANM Position: Physician Address: Address: [address] [place] [address], [address] [facility] [address] Care Team Related Persons Name: ALBERTO GREGORY Care Team Personnel Name: MATHIEU ROLAND DO Position: P4 Physician - Primary Care Med Service: Active Provider Member Role: Primary Care Physician Address: Address: [address] [place] [address] Name: MARQUISE LEHMAN MD Position: P4 Physician - Endocrinology Med Service: Active Provider Member Role: Medical Assisting Instructor Address: Address: [address] [place] [address], [address] Name: CURT JORDAN DPM Position: Physician Med Service: Admitting Member Role: Car Rental Sales Assistant Address: Address: [address] [place] [address], [address] [facility] [address] Care Team Related Persons Name: ALBERTO GREGORY Care Team Personnel Name: MATHIEU ROLAND DO Position: P4 Physician - Primary Care Member Role: Primary Care Physician Address: Address: [address] [place] [address] Name: MARQUISE LEHMAN MD Position: P4 Physician - Endocrinology Member Role: Medical Assisting Instructor Address: Address: [address] [place] [address], [place] [address]- Name: CURT JORDAN DPM Position: Physician Member Role: Car Rental Sales Assistant Address: Address: [address] [place] [address], [address] [facility] [place] [address]- Care Team Related Persons Name: ALBERTO GREGORY INFORMATION SOURCE (unrecogn ized section and content) DATE CREATED AUTHOR 08/29/2023 [facility] DATE CREATED AUTHOR AUTHOR'S ORGANIZ ATION [facility]20[facility] [place] [facility] DATE CREATED AUTHOR AUTHOR'S ORGANIZ ATION 09/19/2024 [facility] DATE CREATED AUTHOR AUTHOR'S ORGANIZ ATION 03/02/2025 [facility] PERTAINING TO PATIENTS WHO ARE [...] BE BASED ON THE PRIMARY CLINICAL RECORDS. [facility] [employer] [facility]. provides no warranty or guarantee of the accuracy or completeness of information in this document.
[2025-03-02 23:39] LABS: Osmolality, Urine 324 mOsm/KG
--- OUTSIDE RECORDS SUMMARY | 2025-03-02 23:44 | XMS RPT_ITS | CCD ---
Author Organization [facility] CliniSy[facility] Care Team Providers Care Supervisor [employer] Name Role Phone MATHIEU ROLAND DO Primary Care Physician [phone] Dr. Mathieu Roland Primary Care Provider Saunders PRODUCE DEPARTMENT MANAGER, PRODUCE DEPARTMENT MANAGER-C Milad Attending Provider [phone] Saunders PRODUCE DEPARTMENT MANAGER, PRODUCE DEPARTMENT MANAGER-C Milad Other Provider 1([phone] Mathieu Roland Primary Care Provider Saunders PRODUCE DEPARTMENT MANAGER, PRODUCE DEPARTMENT MANAGER-C Milad Attending Provider [phone] Saunders PRODUCE DEPARTMENT MANAGER, PRODUCE DEPARTMENT MANAGER-C Milad Other Provider 1([facility])-[phone] Mathieu Roland Primary Care Provider Saunders PRODUCE DEPARTMENT MANAGER, PRODUCE DEPARTMENT MANAGER-C Milad Attending Provider [phone] Saunders PRODUCE DEPARTMENT MANAGER, PRODUCE DEPARTMENT MANAGER-C Milad Other Provider 1([facility])-[phone] Mathieu Roland Primary Care Provider Saunders PRODUCE DEPARTMENT MANAGER, PRODUCE DEPARTMENT MANAGER-C Milad Attending Provider [phone] Saunders PRODUCE DEPARTMENT MANAGER, PRODUCE DEPARTMENT MANAGER-C Milad Other Provider 1([facility])-[phone] Rafael Perez Emergency Provider Dr. Milad Reynolds Admit Provider Dr. Milad Reynolds Attending Provider Dr. Milad Reynolds Other Provider Dr. Tiffany Hairston Other Provider Dr. Paula Naranjo Attending Provider Dr. Paula Naranjo Other Provider 1([facility])[phone] Gibson Ruiz Other Provider 1([facility])[phone] Dr. Mathieu Roland Primary Care Provider Chip PRODUCE DEPARTMENT MANAGER, PRODUCE DEPARTMENT MANAGER-C Milad Attending Provider [phone] Chip PRODUCE DEPARTMENT MANAGER, PRODUCE DEPARTMENT MANAGER-C Milad Other Provider Dr. Jonny Lynch Attending [...] anxiety, # 90 tab(s), 2 Refill(s), [id number], Anxiety Long-term use of high-risk medication, 165, cm, 12/08/24 16:01:00 EDT, Height, 73.7, kg, 12/08/24 15:44:00 EDT, Dosing Weight Start Date: 12/08/24 Status: Ordered Quantity: 90.0 Unit: tab(s) Repeat number: 3 Indications: Other fdc (current) drug therapy; Anxiety disorder, unspecified; Start: 06-15-2024 Xanax 0.5 mg o ral tablet Dose : 0.5 mg = 1 tab(s), Oral, TID, PRN as needed for anxiety, Do not fill until June 28, 2024, # 90 tab(s), 2 Refill(s), [id number], Anxiety, 162.6, cm, 06/15/24 14:27:00 EDT, Height, 76.6, kg, 03/17/24 15:31:00 EDT, Dosing Weight Start Date: 06/15/24 Status: Ordered Start: 12-10-2023 Xanax 0.5 mg o ral tablet Dose : 0.5 mg = 1 tab(s), Oral, TID, PRN as needed for anxiety, # 90 tab(s), 2 Refill(s), Pharmacy: [facility] #[id number], Anxiety, 165.5, cm, 12/10/23 15:09:00 EDT, Height, 79.8, kg, 12/10/23 15:09:00 EDT, Dosing Weight Start Date: 12/10/23 Status: Ordered Start: 09-23-2023 End: 09-30-2023 Xanax 0.5 mg oral tablet Dos e : 0.5 mg = 1 tab(s), Oral, TID, PRN as needed for anxiety, Short-term fill until next appointment, # 90 tab(s), 2 Refill(s), [facility]: [facility] #[id number], Anxiety, 165, cm, 09/01/23 13:55:00 EST, Height, [...] 90 tab(s), 2 Refill(s), [facility]: [facility] #[id number], Anxiety, 164, cm, 12/16/22 15:44:00 EDT, Height, 81.4, kg, 12/16/22 15:44:00 EDT, Dosing Weight Start Date: 12/16/22 Stop Date: 03/16/23 Status: Ordered Start: 07-16-2020 End: 06-25-2022 Xanax 0.5 mg oral tablet Dos e : 0.5 mg = 1 tab(s), Oral, TID, PRN as needed for anxiety, # 90 tab(s), 2 Refill(s), Pharm[facility]: [facility] #[id number], Anxiety, 165, cm, 03/27/22 16:49:00 EDT, Height, [...] her., # 90 tab(s), 1 Refill(s), Pharmacy: [facility]/pharmacy #[id number], Anxiety Trouble in sleeping, 162, cm, 03/17/24 15:31:00 EDT, Height, kg, 03/17/24 15:31:00 EDT, Dosing Weight Start Date: 03/17/24 Status: Ordered Start: 09-23-2023 amitriptyline 10 mg oral tablet Dose : 10 mg = 1 tab(s), Oral, qHS, Aware of patient age. Patient tolerates medication well and this medication works for her., # 90 tab(s), 1 Refill(s), Pharmacy: [facility] #[id number], Anxiety Trouble in sleeping, 165, cm, 09/01/23 13:55:00 EST, Height, kg, 09/01/23 13:47:00 EST, Dosing Weight Start Date: 09/23/23 Status: Ordered Start: 03-18-2023 amitriptyline 10 mg oral tablet Dose : 10 mg = 1 tab(s), Oral, qHS, Aware of patient age. Patient tolerates medication well and this medication works for her., # 90 tab(s), 1 Refill(s), Pharmacy: [facility] #[id number], Anxiety Recurrent major depression, 165, cm, 03/18/23 16:25:00 EDT, Height, kg, 03/18/23 16:09:00 EDT, Dosing Weight Start Date: 03/18/23 Status: Ordered Start: 09-16-2022 amitriptyline 10 mg oral tablet Dose : 10 mg = 1 tab(s), Oral, qHS, # 90 tab(s), 1 Refill(s), Pharmacy: [facility] #[id number], Anxiety Depressive disorder, 164.5, cm, 09/16/22 16:07:00 EST, Height, kg, 09/16/22 16:07:00 EST, Dosing Weight Start Date: 09/16/22 Status: Ordered Start: 04-16-2022 amitriptyline 10 mg oral tablet Dose : 10 mg = 1 tab(s), Oral, qHS, New prescription, # 90 tab(s), 1 Refill(s), [facility]acy: [facility] #[id number], Anxiety Depressive disorder, 165, cm, 04/16/22 14:02:00 EDT, Height, kg, 04/16/22 13:55:00 EDT, Dosing Weight Start Date: 04/16/22 Status: Ordered Start: 10-25-2021 amitriptyline 10 mg oral tablet Dose : 10 mg = 1 tab(s), Oral, qHS, New prescription, # 30 tab(s), 5 Refill(s), Pharmacy: [facility] Tension headache Anxiety, 166.37, cm, 10/25/21 14:26:00 EST, Height, kg, 10/25/21 14:26:00 EST, Dosing Weight Start Date: 10/25/21 Status: Ordered amLODIPine 10 mg oral tablet (4 sources) Dihydropyridine Calcium Channel Doris Start: 10-20-2024 amLODIPine 10 mg ora l tablet Dose : 10 mg = 1 tab(s), Oral, qDay, # 90 tab(s), 3 Refill(s), Pharmacy: [facility]/pharmacy #[id number], Uncontrolled hypertension Hypertension associated with type [...] qDay, # 90 tab(s), 3 Refill(s), Pharmacy: [facility] #[id number], Uncontrolled hypertension Hypertension associated with type 2 diabetes mellitus, 165.5, cm, 12/10/23 15:09:00 EDT, Height, kg, 12/10/23 15:09:00 EDT, Dosing Weight Start Date: 12/10/23 Status: Ordered Start: 09-01-2023 amLODIPine 10 mg oral tablet Dose : 10 mg = 1 tab(s), Oral, qDay, # 90 tab(s), 1 Refill(s), [facility]: [facility] #[id number], Uncontrolled hypertension, 165, cm, 09/01/23 13:55:00 EST, [...] BID, # 60 tab(s), 2 Refill(s), Pharmacy: [facility]/pharmacy #[id number], 165, cm, 02/09/25 13:33:00 EDT, Height, [...] qDay, # 90 tab(s), 1 Refill(s), Pharmacy: [facility]/pharmacy #[id number], Hypertension PAD - Peripheral arterial disease, 162, cm, 03/17/24 15:31:00 EDT, Height, kg, 03/17/24 15:31:00 EDT, Dosing Weight Start Date: 03/17/24 Status: Ordered Start: 09-23-2023 clopidogrel 75 mg oral tablet Dose : 75 mg = 1 tab(s), Oral, qDay, # 90 tab(s), 1 Refill(s), [facility]acy: [facility] #[id number], Hypertension PAD - Peripheral arterial disease, 165, cm, 09/01/23 13:55:00 EST, Height, kg, 09/01/23 13:47:00 EST, Dosing Weight Start Date: 09/23/23 Status: Ordered Start: 03-18-2023 clopidogrel 75 mg oral tablet Dose : 75 mg = 1 tab(s), Oral, qDay, # 90 tab(s), 1 Refill(s), Pharmacy: [facility] #[id number], Hypertension PAD - Peripheral arterial disease, 165, cm, 03/18/23 16:25:00 EDT, Height, kg, 03/18/23 16:09:00 EDT, Dosing Weight Start Date: 03/18/23 Status: Ordered Start: 07-16-2020 clopidogrel 75 mg oral tablet Dose : 75 mg = 1 tab(s), Oral, qDay, # 90 tab(s), 1 Refill(s), Pharmacy: [facility] #[id number], Hypertension PAD - Peripheral arterial disease, 164.5, cm, 09/16/22 16:07:00 EST, Height, kg, 09/16/22 16:07:00 EST, Dosing Weight Start Date: 09/16/22 Status: Ordered colesevelam hydrochloride 625 mg oral tablet (1 source) Bile Acid Sequestrant Start: 07-10-2022 colesevelam 625 mg oral tablet Dose : 1,875 mg = 3 tab(s), Oral, BID, # 180 tab(s), 2 Refill(s), [facility] #[id number], 165, cm, 07/10/22 14:46:00 EST, Height Start [...] sources) Provitamin D2 Compound Start: 07-16-2020 take 72201 [IU] by mouth every week Ergocalciferol (Vitamin D2) Active 06759 UNIT PO EVERY WEEK July 16, 2020 [...] please, # 180 tab(s), 1 Refill(s), Pharmacy: [facility]/pharmacy #[id number], Neuropathy Chronic pain, 165, cm, 09/15/24 14:32:00 EST, Height, 74.9, kg, 09/15/24 14:32:00 EST, Dosing Weight Start Date: 09/15/24 Stop Date: 03/14/25 Status: Ordered Quantity: 180.0 Unit: tab(s) Repeat number: 2 Indications: Other chronic pain; Polyneuropathy, unspecified; Start: 09-23-2023 End: 09-13-2024 gabapentin 600 mg oral table t Dose : 600 mg = 1 tab(s), Oral, BID, # 180 tab(s), 1 Refill(s), Pharmacy: [facility]/pharmacy #[id number], Neuropathy Type 2 diabetes mellitus with complications, 162, cm, 03/17/24 15:31:00 EDT, Height, 76.6, kg, 03/17/24 15:31:00 EDT, Dosing Weight Start Date: 03/17/24 Stop Date: 09/13/24 Status: Ordered Start: 07-16-2020 End: 09-14-2023 gabapentin 600 mg oral table t Dose : 600 mg = 1 tab(s), Oral, BID, # 180 tab(s), 1 Refill(s), [facility]: [facility] #[id number], Neuropathy Controlled type 2 diabetes mellitus, 165, cm, 03/18/23 16:25:00 EDT, Height, 81.1, kg, 03/18/23 16:09:00 EDT, Dosing Weight Start Date: 03/18/23 Stop Date: 09/14/23 Status: Ordered glimepiride 2 mg oral tablet (19 sources) Sulfonylurea Start: 03-24-2022 glimepiride 2 mg oral tablet Dose : 2 mg = 1 tab(s), Oral, qDayM, # 90 tab(s), 1 Refill(s), [facility]: [facility] #[id number], 165, cm, 03/06/22 14:46:00 EDT, Height, kg, [...] daily, # 15 mL, 3 Refill(s), Pharmacy: [facility] [address] 166.37, cm, 10/25/21 14:26:00 [...] daily, # 15 mL, 3 Refill(s), Pharmacy: [facility] [address] 165.1, cm, 06/25/21 16:02:00 EDT, Height, kg, 06/25/21 16:02:00 EDT, Dosing Weight Start Date: 06/25/21 Status: Ordered Start: 01-29-2021 inject 1 dose by sub cutaneous injection once daily Levemir FlexTouch 100 units/mL 3 mL Pen Dose : 38 unit(s) =, Subcutaneous, Daily, inject 44 units subcutaneously daily, # 15 mL, 3 Refill(s), Pharmacy: [facility] [address] 164.5, cm, 01/24/21 15:33:00 [...] bedtime, # 15 mL, 1 Refill(s), Pharmacy: [facility] #[id number], 165.5, cm, 12/10/23 15:09:00 EDT, Height, kg, 12/10/23 15:09:00 EDT, Dosing Weight Start Date: 02/22/24 Status: Ordered Start: 06-25-2023 inject 1 dose by sub cutaneous injection once daily at bedtime Lantus Solostar Pen 100 units/mL 3 mL Pen Dose : 10 unit(s) =, Subcutaneous, qHS, inject 12 units subcutaneously at bedtime, # 15 mL, 1 Refill(s), Pharmacy: [facility] #[id number], 165, cm, 06/25/23 15:16:00 EDT, Height, kg, [...] qHS, # 15 mL, 3 Refill(s), Pharmacy: [facility] #[id number], 164.5, cm, 09/16/22 16:07:00 EST, Height Start Date: 09/18/22 Status: Ordered levothyroxine sodium 0.05 mg oral tablet (20 sources) l-Thyroxine Start: 01-16-2025 take 1 tablet by mouth once daily levothyroxine 50 mcg (0.05 mg) oral tablet See Instructions, take 1 tablet by mouth once daily, # 90 tab(s), 1 Refill(s), Pharmacy: [facility]/pharmacy #[id number], 165, cm, 01/12/25 15:01:00 EDT, Height, kg, 05/15/25 15:01:00 EDT, Dosing Weight Start Date: 01/16/25 Status: Ordered Quantity: 90.0 Unit: tab(s) Repeat number: 2 Start: 09-07-2024 take 1 tablet by yanelis th once daily levothyroxine 50 mcg (0.05 mg) oral tablet See Instructions, take 1 tablet by mouth once daily, # 90 tab(s), 1 Refill(s), Pharmacy: [facility]/pharmacy #[id number], 165, cm, 07/07/24 15:39:00 EST, Height, kg, 07/07/24 15:39:00 EST, Dosing Weight Start Date: 09/07/24 Status: Ordered Quantity: 90.0 Unit: tab(s) Repeat number: 2 Start: 12-10-2023 take 1 tablet by yanelis th once daily levothyroxine 50 mcg (0.05 mg) oral tablet See Instructions, take 1 tablet by mouth once daily, # 90 tab(s), 2 Refill(s), Pharm[facility]: [facility] #[id number], 165.5, cm, 12/10/23 15:09:00 EDT, Height, kg, 12/10/23 15:09:00 EDT, Dosing Weight Start Date: 12/10/23 Status: Ordered Start: 09-18-2022 take 1 tablet by yanelis th once daily levothyroxine 50 mcg (0.05 mg) oral tablet See Instructions, take 1 tablet by mouth once daily, # 90 tab(s), 2 Refill(s), Pharmacy: [facility] #[id number], 164.5, cm, 09/16/22 16:07:00 EST, Height, kg, [...] daily, # 90 tab(s), 1 Refill(s), [facility] [address] 165.1, cm, 03/12/21 15:19:00 [...] Nausea/Vomiting, # 20 tab(s), 0 Refill(s), Pharmacy: [facility] [address] 165, cm, 01/06/22 14:05:00 EDT, Height Start Date: 01/10/22 Status: Ordered Quantity: 20.0 Unit: tab(s) Repeat number: 1 Start: 07-13-2020 Zofran 4 mg or al tablet Dose : 4 mg = 1 tab(s), Oral, q6h, PRN Nausea/Vomiting, # 20 tab(s), 0 Refill(s), Pharmacy: [facility] [address] Nausea, 164.2, cm, 06/22/20 [...] 0 Refill(s), 02/25/25 3:10:00 PM EDT, Pharmacy: [facility]/pharmacy #[id number], Hypertension, 165, cm, 02/09/25 13:33:00 EDT, Height, kg, 02/09/25 13:33:00 EDT, Dosing Weight Start Date: 02/22/25 Stop Date: 02/25/25 Status: Ordered Quantity: 6.0 Unit: tab(s) Repeat number: 1 Indications: Essential (primary) hypertension; Start: 04-16-2022 take 1 tablet by yanelis th once daily Potassium Chloride (Ano-Kkbv-Fzs M20) 20 mEq oral tablet, extended release See Instructions, take 1 tablet by mouth once daily with FUROSEMIDE, # 90 tab(s), 1 Refill(s), Pharmacy: [facility] #[id number], Hypertension, 165, cm, 04/16/22 14:02:00 EDT, Height, kg, 04/16/22 13:55:00 EDT, Dosing Weight Start Date: 04/16/22 Status: Ordered Quantity: 90.0 Unit: tab(s) Repeat number: 2 Indications: Essential (primary) hypertension; Start: 04-16-2022 take 1 tablet by yanelis th once daily Potassium Chloride (Hzb-Zqpr-Psk M20) 20 mEq oral tablet, extended release See Instructions, take 1 tablet by mouth once daily with FUROSEMIDE, # 90 tab(s), 1 Refill(s), Pharmacy: [facility] #[id number], Hypertension, 165, cm, 04/16/22 14:02:00 EDT, Height, kg, 04/16/22 13:55:00 EDT, Dosing Weight Start Date: 04/16/22 Status: Ordered Start: 02-04-2022 take 1 tablet by yanelis th once daily Potassium Chloride (Rmv-Vsmt-Sjz M20) 20 mEq oral tablet, extended release See Instructions, take 1 tablet by mouth once daily with FUROSEMIDE, # 30 tab(s), 1 Refill(s), Pharmacy: [facility] 165, cm, 01/06/22 14:05:00 EDT, Height, kg, 01/06/22 14:05:00 EDT, Dosing Weight Start Date: 02/04/22 Status: Ordered Start: 12-11-2021 take 1 tablet by yanelis th once daily Potassium Chloride (Xtp-Ytoe-Vky M20) 20 mEq oral tablet, extended release See Instructions, take 1 tablet by mouth once daily with FUROSEMIDE, # 30 tab(s), 1 Refill(s), Pharmacy: [facility] [address] 166.37, cm, 10/25/21 14:26:00 EST, Height, kg, 10/25/21 14:26:00 EST, Dosing Weight Start Date: 12/11/21 Status: Ordered Start: 09-30-2021 take 1 tablet by yanelis th once daily Potassium Chloride (Wwm-Oxvc-Pjd M20) 20 mEq oral tablet, extended release See Instructions, take 1 tablet by mouth once daily with FUROSEMIDE, # 30 tab(s), 1 Refill(s), Pharmacy: [facility] [address] 165, cm, 09/17/21 15:34:00 EST, Height, kg, 09/17/21 15:34:00 EST, Dosing Weight Start Date: 09/30/21 Status: Ordered Start: 04-25-2021 take 1 tablet by yanelis th once daily Potassium Chloride (Yga-Eiuc-Hkh M20) 20 mEq oral tablet, extended release See Instructions, take 1 tablet by mouth once daily with FUROSEMIDE, # 30 tab(s), 1 Refill(s), Pharmacy: [facility] [address] 165.1, cm, 03/12/21 15:19:00 [...] qDay, # 60 cap(s), 5 Refill(s), Pharmacy: [facility]/pharmacy #[id number], HTN (hypertension), 165, cm, 02/23/25 14:08:00 EDT, Height, kg, 02/23/25 14:08:00 EDT, Dosing Weight Start Date: 02/23/25 Stop Date: 08/22/25 Status: Ordered Quantity: 60.0 Unit: cap(s) Repeat number: 6 Indications: Essential (primary) hypertension; Start: 12-28-2024 ramipril 10 mg oral capsule Dose : 10 mg = 1 cap(s), Oral, qDay, # 30 cap(s), 5 Refill(s), Pharmacy: [facility]/pharmacy #[id number], 165, cm, 12/08/24 16:01:00 EDT, Height, kg, 12/08/24 15:44:00 EDT, Dosing Weight Start Date: 12/28/24 Status: Ordered Quantity: 30.0 Unit: cap(s) Repeat number: 6 Start: 07-13-2024 ramipril 10 mg oral capsule Dose : 10 mg = 1 cap(s), Oral, qDay, # 30 cap(s), 0 Refill(s), Pharmacy: [facility]/pharmacy #[id number], 165, cm, 07/07/24 15:39:00 EST, Height, kg, 07/07/24 15:39:00 EST, Dosing Weight Start Date: 07/13/24 Status: Ordered Start: 12-10-2023 ramipril 10 mg oral capsule Dose : 10 mg = 1 cap(s), Oral, qDay, # 30 cap(s), 4 Refill(s), Pharmacy: [facility] #[id number], 165.5, cm, 12/10/23 15:09:00 EDT, Height, kg, 12/10/23 15:09:00 EDT, Dosing Weight Start Date: 12/10/23 Status: Ordered Start: 08-03-2023 ramipril 10 mg oral capsule Dose : 10 mg = 1 cap(s), Oral, qDay, # 30 cap(s), 4 Refill(s), Pharmacy: [facility] #[id number], 165, cm, 06/25/23 15:16:00 EDT, Height, kg, 06/25/23 15:16:00 EDT, Dosing Weight Start Date: 08/03/23 Status: Ordered Start: 09-18-2022 ramipril 10 mg oral capsule Dose : 10 mg = 1 cap(s), Oral, qDay, # 30 cap(s), 4 Refill(s), Pharmacy: [facility] #[id number], 164.5, cm, 09/16/22 16:07:00 EST, Height, kg, 09/16/22 16:07:00 EST, Dosing Weight Start Date: 09/18/22 Status: Ordered Start: 03-24-2022 ramipril 10 mg oral capsule Dose : 10 mg = 1 cap(s), Oral, qDay, # 30 cap(s), 4 Refill(s), Pharmacy: [facility] #[id number], 165, cm, 03/06/22 14:46:00 EDT, Height, kg, 03/06/22 14:46:00 EDT, Dosing Weight Start Date: 03/24/22 Status: Ordered Start: 10-31-2021 take 10 mg by mouth once daily Ramipril Active 10 MG PO DAILY October 31, 2021 12:00am Start: 10-22-2021 ramipril 10 mg oral capsule Dose : 10 mg = 1 cap(s), Oral, qDay, # 30 cap(s), 4 Refill(s), Pharmacy: [facility] 165, cm, 10/22/21 15:25:00 EST, Height, kg, 10/22/21 15:25:00 EST, Dosing Weight Start Date: 10/22/21 Status: Ordered Start: 05-10-2021 ramipril 2.5 m g oral capsule Dose : 2.5 mg = 1 cap(s), Oral, qDay, # 90 cap(s), 0 Refill(s), Pharmacy: [facility] 165.1, cm, 06/25/21 16:02:00 [...] qDay, # 90 tab(s), 3 Refill(s), Pharmacy: [facility]/pharmacy #[id number], Hyperlipidemia Controlled type 2 diabetes mellitus, [...] medication, # 90 tab(s), 3 Refill(s), [facility] #[id number], Type 2 diabetes mellitus with hyperlipidemia, 165, [...] day(s), # 20 tab(s), 0 Refill(s), Pharmacy: [facility] [address] 165, cm, 01/06/22 14:05:00 EDT, Height, 88 Start Date: 01/10/22 Stop Date: 01/20/22 Status: Ordered Start: 07-19-2021 End: 08-02-2021 take 1 tablet by mouth every twelve hours sulfamethoxazole-trimethoprim 800 mg-160 mg oral tablet Dose = 1 tab(s), Oral, q12h, drink plenty of fluids, X 14 day(s), # 28 tab(s), 0 Refill(s), Pharmacy: [facility] [address] 165.1, cm, 06/25/21 16:02:00 [...] week, # 4 cap(s), 6 Refill(s), Pharmacy: [facility] #[id number], Vitamin D deficiency, 164.5, cm, 10/21/22 15:34:00 EST, Height, kg, 10/21/22 15:34:00 EST, Dosing Weight Start Date: 10/21/22 Status: Ordered Start: 03-24-2022 take 1 capsule by mo [facility] every week Vitamin D2 1.25 mg (50,000 intl units) oral capsule See Instructions, take 1 capsule by mouth every week, # 4 cap(s), 6 Refill(s), called to pharmacy (Rx) Start Date: 03/24/22 Status: Ordered Start: 09-07-2021 take 1 capsule by [facility] every week Vitamin D2 1.25 mg [...] week, # 9 mL, 5 Refill(s), Pharmacy: [facility] #[id number], 165.5, cm, 12/10/23 15:09:00 EDT, Height, kg, 12/10/23 15:09:00 EDT, Dosing Weight Start Date: 12/10/23 Status: Ordered Quantity: 9.0 Unit: mL Repeat number: 6 Start: 12-10-2023 inject 1 mg by subcu taneous injection every week Ozempic 4 mg/3 mL (1 mg dose) subcutaneous solution Dose : 1 mg =, Subcutaneous, qWeek, inject 1 milligram subcutaneously every week, # 9 mL, 5 Refill(s), Pharmacy: [facility] #[id number], 165.5, cm, 12/10/23 15:09:00 EDT, Height, kg, 12/10/23 15:09:00 EDT, Dosing Weight Start Date: 12/10/23 Status: Ordered Start: 08-10-2023 inject 1 mg by subcu taneous injection every week Ozempic 4 mg/3 mL (1 mg dose) subcutaneous solution Dose : 1 mg =, Subcutaneous, qWeek, inject 1 milligram subcutaneously every week, # 3 mL, 3 Refill(s), Pharmacy: [facility] #[id number], 165, cm, 06/25/23 15:16:00 EDT, Height, kg, 06/25/23 15:16:00 EDT, Dosing Weight Start Date: 08/10/23 Status: Ordered Start: 11-13-2022 inject 1 mg by subcu taneous injection every week Ozempic (1 mg dose) 4 mg/3 mL subcutaneous solution Dose : 1 mg =, Subcutaneous, qWeek, inject 1 milligram subcutaneously every week, # 3 mL, 3 Refill(s), Pharmacy: [facility] #[id number], 164.5, cm, 10/21/22 15:34:00 EST, Height, kg, 10/21/22 15:34:00 EST, Dosing Weight Start Date: 11/13/22 Status: Ordered Start: 06-17-2022 inject 1 mg by subcu taneous injection every week Ozempic (1 mg dose) 4 mg/3 mL subcutaneous solution Dose : 1 mg =, Subcutaneous, qWeek, inject 1 milligram subcutaneously every week, # 2 mL, 3 Refill(s), Pharmacy: [facility] #[id number], 165, cm, 04/23/22 13:51:00 EDT, Height Start [...] 2025, # 60 tab(s), 0 Refill(s), [id number], Chronic pain, 165, cm, 12/08/24 16:01:00 [...] 2024, # 60 tab(s), 0 Refill(s), [id number], Chronic pain, 165, cm, 09/15/24 14:32:00 [...] 2024, # 60 tab(s), 0 Refill(s), Pharmacy: [facility]/pharmacy #[id number], Chronic pain, 162.6, cm, 06/15/24 14:27:00 [...] 2022., # 60 tab(s), 0 Refill(s), Pharmacy: [facility] #[id number], Chronic pain, 164.5, cm, 09/16/22 16:07:00 EST, Height, 81.5, kg, 09/16/22 16:07:00 EST, Dosing Weight Start Date: 09/16/22 Stop Date: 10/16/22 Status: Ordered Start: 03-27-2022 End: 04-27-2022 take 1 tablet by mouth twice daily acetaminophen-hydrocodone 325 mg-5 mg or al tablet Dose = 1 tab(s), Oral, BID, Do not fill until May 26, 2022, # 60 tab(s), 0 Refill(s), Pharmacy: [facility] #[id number], Chronic pain, 165, cm, 03/27/22 16:49:00 EDT, Height, 83.7, kg, 03/27/22 16:39:00 EDT, Dosing Weight Start Date: 03/28/22 Stop Date: 04/27/22 Status: Ordered Start: 12-17-2021 End: 01-16-2022 take 1 tablet by mouth twice daily acetaminophen-hydrocodone 325 mg-5 mg or al tablet Dose = 1 tab(s), Oral, BID, Please do not fill until 02/15/2022, # 60 tab(s), 0 Refill(s), Pharmacy: [facility] Chronic pain, 165, cm, 12/17/21 16:18:00 EDT, Height, 85, kg, 12/17/21 16:07:00 EDT, Dosing Weight Start Date: 12/17/21 Stop Date: 01/16/22 Status: Ordered Start: 09-17-2021 End: 10-17-2021 take 1 tablet by mouth twice daily acetaminophen-hydrocodone 325 mg-5 mg or al tablet Dose = 1 tab(s), Oral, BID, do not fill until 11/16/2021, # 60 tab(s), 0 Refill(s), Pharmacy: [facility] [address] Chronic pain, 165, cm, 09/17/21 15:34:00 EST, Height, 77.3, kg, 09/17/21 15:34:00 EST, Dosing Weight Start Date: 09/17/21 Stop Date: 10/17/21 Status: Ordered Start: 06-18-2021 End: 07-18-2021 take 1 tablet by mouth twice daily acetaminophen-hydrocodone 325 mg-5 mg or al tablet Dose = 1 tab(s), Oral, BID, Do not fill until 08/17/2021, # 60 tab(s), 0 Refill(s), Pharmacy: [facility] [address] Chronic pain, 165.1, cm, [...] sites, # 2 mL, 3 Refill(s), Pharmacy: [facility] [address] 164.5, cm, 10/25/20 15:43:00 [...] qDay, # 90 tab(s), 3 Refill(s), Pharmacy: [facility]/pharmacy #[id number], Uncontrolled hypertension Hypertension associated with type [...] 90 tab(s), 3 Refill(s), Pharmacy: [facility] #[id number], Uncontrolled hypertension Hypertension associated with type 2 diabetes mellitus, 165.5, cm, 12/10/23 15:09:00 EDT, Height, kg, 12/10/23 15:09:00 EDT, Dosing Weight Start Date: 12/10/23 Status: Ordered Start: 09-01-2023 hydroCHLOROthi azide 25 mg oral tablet Dose : 25 mg = 1 tab(s), Oral, qDay, # 90 tab(s), 1 Refill(s), Pharmacy: [facility] #[id number], Uncontrolled hypertension, 165, cm, 09/01/23 13:55:00 EST, [...] Estimated Glomerular Filtration Rate 61 ml/min/1.73sqm Normal [facility] Comment on above: Result Comment: Stages [...] Performed By: #### Ingris YATES, BMP #### [address] [address] BMPon 02-28-2025 BUN/Creatinine Ratio 19 ratio Normal 7-27 [facility] Comment on above: Performed By: #### Ingris AYTES, BMP #### [address] [address] Calcium [Mass/Vol] 8.8 mg/dL Normal 8.4-10.2 [facility] Comment on above: Performed By: #### Ingris YATES, BMP #### [address] [address] Chloride [Moles/Vol] 93 mmol/L Low 98-107 [facility] Comment on above: Performed By: #### Ingris YATES, BMP #### [address] [address] CO2 [Moles/Vol] 28 mmol/L Normal 23-31 [facility] Comment on above: Performed By: #### Ingris YATES, BMP #### [address] [address] Creatinine [Mass/Vol] 0.96 mg/dL High 0.51-0.95 [facility] Comment on above: Performed By: #### Ingris YATES, BMP #### [address] [address] Electrolyte Balance 6.0 mEq/L Normal 4.0-15.0 [facility] Comment on above: Performed By: #### Ingris YATES, BMP #### [address] [address] Glucose [Mass/Vol] 103 mg/dL Normal 83-110 [facility] Comment on above: Performed By: #### Ingris YATES, BMP #### [address] [address] Potassium [Moles/Vol] 5.1 mmol/L Normal 3.5-5.1 [facility] Comment on above: Performed By: #### G , BMP #### [facility] [address] [place], [place] [address] Sodium [Moles/Vol] 127 mmol/L Low 136-145 [facility] Comment on above: Performed By: #### G FR, BMP #### [facility] [address] [place], [place] [address] Urea nitrogen [Mass/Vol] 18 mg/dL Normal 7-18 [facility] Comment on above: Performed By: #### G FR, BMP #### [address] [place], [place] [address] LABORATORYOrdered By: SYSTEM SYSTEM on 02-28-2025 Calcium [...] Estimated Glomerular Filtration Rate 70 ml/min/1.73sqm Normal [facility] Comment on above: Result Comment: Stages [...] Performed By: #### G , BMP #### [address] [address] BMPon 02-23-2025 BUN/Creatinine Ratio 15 ratio Normal 7-27 [facility] Comment on above: Performed By: #### G FR, BMP #### [address] [address] Calcium [Mass/Vol] 9.2 mg/dL Normal 8.4-10.2 [facility] Comment on above: Performed By: #### G FR, BMP #### [address] [address] Chloride [Moles/Vol] 92 mmol/L Low 98-107 [facility] Comment on above: Performed By: #### G FR, BMP #### [address] [address] CO2 [Moles/Vol] 33 mmol/L High 23-31 [facility] Comment on above: Performed By: #### G FR, BMP #### [address] [address] Creatinine [Mass/Vol] 0.86 mg/dL Normal 0.51-0.95 [facility] Comment on above: Performed By: #### Ingris YATES, BMP #### [address] [address] Electrolyte Balance 6.0 mEq/L Normal 4.0-15.0 [facility] Comment on above: Performed By: #### Ingris YATES, BMP #### [address] [address] Glucose [Mass/Vol] 152 mg/dL High 83-110 [facility] Comment on above: Performed By: #### Ingris YATES, BMP #### [address] [address] Potassium [Moles/Vol] 3.6 mmol/L Normal 3.5-5.1 [facility] Comment on above: Performed By: #### Ingris YATES, BMP #### [address] [address] Sodium [Moles/Vol] 131 mmol/L Low 136-145 [facility] Comment on above: Performed By: #### Ingris YATES, BMP #### [address] [address] Urea nitrogen [Mass/Vol] 13 mg/dL Normal 7-18 [facility] Comment on above: Performed By: #### Ingris YATES, BMP #### [address] [address] LABORATORYOrdered By: SYSTEM SYSTEM on 02-23-2025 Calcium [...] Basophil, Absolute 0.0 10 3/mcL Normal 0.0-0.3 [facility] Comment on above: Performed By: #### G , BMP #### [address] [address] Basophils/100 WBC (Bld) 0.6 % Normal 0.0-2.5 [facility] Comment on above: Performed By: #### G FR, BMP #### [address] [address] Eosinophil, Absolute 0.1 10 3/mcL Normal 0.0-0.7 [facility] Comment on above: Performed By: #### G FR, BMP #### [address] [address] Eosinophils/100 WBC (Bld) 1.0 % Normal 0.0-6.0 [facility] Comment on above: Performed By: #### G FR, BMP #### [address] [place], [place] [address] Lymphocyte, Absolute 1.1 10 3/mcL Normal 0.9-4.3 [facility] Comment on above: Performed By: #### G FR, BMP #### [facility] [address] [place], [place] [address] Lymphocytes/100 WBC (Bld) 22.2 % Normal 20.0-40.0 [facility] Comment on above: Performed By: #### G FR, BMP #### [address] [address] Monocyte, Absolute 0.5 10 3/mcL Normal 0.1-1.4 [facility] Comment on above: Performed By: #### G FR, BMP #### [address] [address] Monocytes/100 WBC (Bld) 8.9 % Normal 2.0-13.0 [facility] Comment on above: Performed By: #### G FR, BMP #### [address] [address] Neutrophils/100 WBC (Bld) 67.3 % Normal 50.0-75.0 [facility] Comment on above: Performed By: #### G FR, BMP #### [address] [address] .GFRon 02-21-2025 Estimated Glomerular Filtration Rate 84 ml/min/1.73sqm Normal [facility] Comment on above: Result Comment: Stages [...] Performed By: #### G FR, BMP #### [address] [address] .NEUABSon 02-21-2025 Neutrophil, Absolute 3.4 10 3/mcL Normal 2.3-8.1 [facility] Comment on above: Performed By: #### G FR, BMP #### [address] [address] BMPon 02-21-2025 BUN/Creatinine Ratio 15 ratio Normal 7-27 [facility] Comment on above: Performed By: #### G FR, BMP #### [address] [address] Calcium [Mass/Vol] 8.9 mg/dL Normal 8.4-10.2 [facility] Comment on above: Performed By: #### G FR, BMP #### [address] [address] Chloride [Moles/Vol] 92 mmol/L Low 98-107 [facility] Comment on above: Performed By: #### G FR, BMP #### [address] [address] CO2 [Moles/Vol] 35 mmol/L High 23-31 [facility] Comment on above: Performed By: #### G FR, BMP #### [address] [address] Creatinine [Mass/Vol] 0.74 mg/dL Normal 0.51-0.95 [facility] Comment on above: Performed By: #### G FR, BMP #### [address] [address] Electrolyte Balance 4.0 mEq/L Normal 4.0-15.0 [facility] Comment on above: Performed By: #### G FR, BMP #### [address] [address] Glucose [Mass/Vol] 157 mg/dL High 83-110 [facility] Comment on above: Performed By: #### G FR, BMP #### [address] [address] Potassium [Moles/Vol] 3.0 mmol/L Low 3.5-5.1 [facility] Comment on above: Performed By: #### G FR, BMP #### [address] [address] Sodium [Moles/Vol] 131 mmol/L Low 136-145 [facility] Comment on above: Performed By: #### G FR, BMP #### [address] [address] Urea nitrogen [Mass/Vol] 11 mg/dL Normal 7-18 [facility] Comment on above: Performed By: #### G , BMP #### [address] [address] CBCon 02-21-2025 Erythrocyte distribution width (RBC) [Ratio] 13.0 % Normal 11.5-15.5 [facility] Comment on above: Performed By: #### G , BMP #### [address] [address] Hematocrit (Bld) [Volume fraction] 42.0 % Normal 34.0-46.0 [facility] Comment on above: Performed By: #### G , BMP #### [address] [address] Hgb 14.6 G/dL Normal 12.0-16.0 [facility] Comment on above: Performed By: #### G FR, BMP #### [address] [address] MCH (RBC) [Entitic mass] 31.4 pg Normal 27.0-33.0 [facility] Comment on above: Performed By: #### G FR, BMP #### [address] [address] MCHC 34.8 G/dL Normal 32.0-36.0 [facility] Comment on above: Performed By: #### G FR, BMP #### [address] [place], [place] [address] MCV (RBC) [Entitic vol] 90.1 fL Normal 80.0-99.0 [facility] Comment on above: Performed By: #### Ingris YATES, BMP #### [address] [place], [place] [address] Platelet 119 10 3/mcL Low 150-450 [facility] Comment on above: Performed By: #### Ingris YATES, BMP #### [address] [place], [place] [address] Platelet mean volume (Bld) [Entitic vol] 9.3 fL Normal 6.6-10.5 [facility] Comment on above: Performed By: #### Ingris YATES, BMP #### [address] [address] RBC 4.66 10 6/mcL Normal 4.10-5.30 [facility] Comment on above: Performed By: #### Ingris YATES, BMP #### [address] [address] WBC 5.0 10 3/mcL Normal 4.5-10.8 [facility] Comment on above: Performed By: #### Ingris YATES, BMP #### [address] [address] LABORATORYOrdered By: SYSTEM SYSTEM on 02-21-2025 Basophils [...] B (Bld) [Mass/Vol] 244 pg/mL Normal 0-450 [facility] Comment on above: Result Comment: NT-p roBNP results of less than 300 pg/mL effectively rules out acute congestive heart failure with 99% negative predictive value. Performed By: #### G , BMP #### [address] [address] .GFRon 01-09-2025 Estimated Glomerular Filtration Rate 80 ml/min/1.73sqm Normal [facility] Comment on above: Result Comment: Stages [...] Performed By: #### Ingris YATES, BMP #### [address] [address] A1Con 01-09-2025 Glucose [Mass/Vol] 140 mg/dL Normal [facility] Comment on above: Result Comment: [place] mated Average Glucose calculated by equation ((28.7xA1C)-46.7) Estimated average glucose (eAG) is a calculated value from Hemoglobin A1C and is service representative of the average blood glucose level in the last 2-3 month period. Normal range: less than 114 mg/dL Performed By: #### Ingris YATES, BMP #### [address] [address] HbA1c (Bld) [Mass fraction] 6.5 % High 4.3-6.4 [facility] Comment on above: Performed By: #### Ingris YATES, BMP #### [address] [address] CMPon 01-09-2025 ALT [Catalytic activity/Vol] 12 U/L Low 14-59 [facility] Comment on above: Performed By: #### Ingris YATES, BMP #### [address] [address] Albumin Level 3.4 G/dL Normal 3.4-4.8 [facility] Comment on above: Performed By: #### Ingris YATES, BMP #### [address] [address] Albumin/Globulin [Mass ratio] 1.2 {ratio} Normal 1.1-2.5 [facility] Comment on above: Performed By: #### Ingris YATES, BMP #### [address] [place] [address] ALP [Catalytic activity/Vol] 68 U/L Normal 40-135 [facility] Comment on above: Performed By: #### Ingris YATES, BMP #### [address] [address] AST [Catalytic activity/Vol] 19 U/L Normal 10-40 [facility] Comment on above: Performed By: #### G , BMP #### [address] [address] Bili Total 0.5 mg/dL Normal 0.2-1.0 [facility] Comment on above: Result Comment: Use of this assay is not recommended for patients undergoing treatment with eltrombopag due to the potential for falsely elevated results. Performed By: #### Ingris YATES, BMP #### [address] [address] BUN/Creatinine Ratio 12 ratio Normal 7-27 [facility] Comment on above: Performed By: #### Ingris YATES, BMP #### [address] [address] Calcium [Mass/Vol] 8.9 mg/dL Normal 8.4-10.2 [facility] Comment on above: Performed By: #### Ingris YATES, BMP #### [address] [address] Chloride [Moles/Vol] 105 mmol/L Normal 98-107 [facility] Comment on above: Performed By: #### Ingris YATES, BMP #### [address] [address] CO2 [Moles/Vol] 30 mmol/L Normal 23-31 [facility] Comment on above: Performed By: #### G , BMP #### [address] [address] Creatinine [Mass/Vol] 0.77 mg/dL Normal 0.51-0.95 [facility] Comment on above: Performed By: #### G , BMP #### [address] [address] Electrolyte Balance 7.0 mEq/L Normal 4.0-15.0 [facility] Comment on above: Performed By: #### G , BMP #### [address] [address] Globulin 2.9 G/dL Normal 2.7-4.4 [facility] Comment on above: Performed By: #### G , BMP #### [address] [address] Glucose [Mass/Vol] 122 mg/dL High 83-110 [facility] Comment on above: Performed By: #### G , BMP #### [address] [address] Potassium [Moles/Vol] 3.2 mmol/L Low 3.5-5.1 [facility] Comment on above: Performed By: #### Ingris YATES, BMP #### [address] [address] Sodium [Moles/Vol] 142 mmol/L Normal 136-145 [facility] Comment on above: Performed By: #### Ingris YATES, BMP #### [address] [address] Total Protein 6.3 G/dL Low 6.4-8.2 [facility] Comment on above: Performed By: #### Ingris YATES, BMP #### [address] [address] Urea nitrogen [Mass/Vol] 9 mg/dL Normal 7-18 [facility] Comment on above: Performed By: #### G , BMP #### [address] [address] FT3on 01-09-2025 Free T3 [Mass/Vol] 2.25 pg/mL Low 2.30-4.00 [facility] Comment on above: Performed By: #### G , BMP #### [address] [address] LABORATORYOrdered By: Neida Sarabia on 01-09-2025 Albumin [...] calculated value from Hemoglobin A1C and is service representative of the average blood glucose level [...] 01-09-2025 Cholesterol [Mass/Vol] 137 mg/dL Normal 0-200 [facility] Comment on above: Result Comment: Chol esterol Reference Interval: Less than 200 Desirable 200-239 Borderline high risk 240 and above High risk Performed By: #### G , BMP #### [address] [address] Cholesterol in HDL [Mass/Vol] 48 mg/dL Normal 40-60 [facility] Comment on above: Performed By: #### G FR, BMP #### [address] [address] Cholesterol in LDL [Mass/Vol] 69 mg/dL Normal 0-130 [facility] Comment on above: Performed By: #### G , BMP #### [address] [address] Triglyceride [Mass/Vol] 100 mg/dL Normal 0-150 [facility] Comment on above: Result Comment: Trig lyceride Reference Interval: Less than 150 Normal 150-199 Borderline high risk 200-499 High risk 500 or higher Very high risk Performed By: #### G FR, BMP #### [address] [address] MALBRon 01-09-2025 U Creatinine 48.2 mg/dL Normal 29.0-226.0 [facility] Comment on above: Performed By: #### G FR, BMP #### [address] [address] U Microalb 7.4 mg/L Normal [facility] Comment on above: Performed By: #### G FR, BMP #### [address] [address] U Ratio Alb/Cre 15 mg/G Normal 0-30 [facility] Comment on above: Performed By: #### G , BMP #### [address] [address] TSHon 01-09-2025 TSH Qn 2.48 m[IU]/L Normal 0.36-3.74 [facility] Comment on above: Performed By: #### G , BMP #### [address] [address] VIDHon 01-09-2025 Vit. D 25-Hydroxy 31.1 ng/mL Normal [facility] Comment on above: Result Comment: Inte rpretive Values Based on Total 25(OH) Vitamin D: Deficient <20 ng/mL Insufficient 20 - <30 ng/mL Sufficient 30-100 ng/mL Performed By: #### G , BMP #### [address] [address] XR SPINE LUMBAR W/OBLIQUES 4 VIEWSon 10-14-2024 [...] 10/14/2024 10:02:10 AM Ordering Provider: MATHIEU Lacy [facility] .Auto Diffon 10-12-2024 Basophil, Absolute 0.0 10 3/mcL Normal 0.0-0.2 [facility] Comment on above: Performed By: #### C BC, ANEU, ADIFF #### [address] [address] Basophils/100 WBC (Bld) 1.2 % Normal 0.0-2.5 [facility] Comment on above: Performed By: #### C BC, ANEU, ADIFF #### [address] [address] Eosinophil, Absolute 0.0 10 3/mcL Normal 0.0-0.7 [facility] Comment on above: Performed By: #### C BC, ANEU, ADIFF #### [address] [address] Eosinophils/100 WBC (Bld) 1.2 % Normal 0.0-7.0 [facility] Comment on above: Performed By: #### C BC, ANEU, ADIFF #### [address] [address] Lymphocyte, Absolute 1.3 10 3/mcL Normal 0.9-4.3 [facility] Comment on above: Performed By: #### C BC, ANEU, ADIFF #### [address] [address] Lymphocytes/100 WBC (Bld) 32.3 % Normal 20.0-40.0 [facility] Comment on above: Performed By: #### C BC, ANEU, ADIFF #### [address] [address] Monocyte, Absolute 0.4 10 3/mcL Normal 0.1-1.4 [facility] Comment on above: Performed By: #### C BC, ANEU, ADIFF #### [address] [address] Monocytes/100 WBC (Bld) 9.2 % Normal 2.0-13.0 [facility] Comment on above: Performed By: #### C BC, ANEU, ADIFF #### [address] [address] Neutrophils/100 WBC (Bld) 56.1 % Normal 50.0-75.0 [facility] Comment on above: Performed By: #### C BC, ANEU, ADIFF #### [address] [address] .NEUABSon 10-12-2024 Neutrophil, Absolute 2.3 10 3/mcL Normal 2.3-8.1 [facility] Comment on above: Performed By: #### G FR, BMP #### [place] [address] CBCon 10-12-2024 Erythrocyte distribution width (RBC) [Ratio] 13.4 % Normal 11.5-15.5 [facility] Comment on above: Performed By: #### C BC, ANEU, ADIFF #### [place] [address] Hematocrit (Bld) [Volume fraction] 43.4 % Normal 34.0-46.0 [facility] Comment on above: Performed By: #### C BC, ANEU, ADIFF #### [place] [address] Hgb 14.6 G/dL Normal 12.0-16.0 [facility] Comment on above: Performed By: #### C BC, ANEU, ADIFF #### [place] [address] MCH (RBC) [Entitic mass] 31.1 pg Normal 27.0-33.0 [facility] Comment on above: Performed By: #### C BC, ANEU, ADIFF #### [place] [address] MCHC 33.7 G/dL Normal 32.0-36.0 [facility] Comment on above: Performed By: #### C BC, ANEU, ADIFF #### [place] [address] MCV (RBC) [Entitic vol] 92.4 fL Normal 80.0-99.0 [facility] Comment on above: Performed By: #### C EDWARD ROCHA, ADIFF #### [address] [place], [place] [address] Platelet 127 10 3/mcL Low 150-450 [facility] Comment on above: Performed By: #### C EDWARD ROCHA, ADIFF #### [address] [place], [place] [address] Platelet mean volume (Bld) [Entitic vol] 9.4 fL Normal 6.6-10.5 [facility] Comment on above: Performed By: #### C EDWARD ROCHA, ADIFF #### [address] [place], [place] [address] RBC 4.70 10 6/mcL Normal 4.10-5.30 [facility] Comment on above: Performed By: #### C EDWARD ROCHA, ADIFF #### [address] [place], [place] [address] WBC 4.2 10 3/mcL Low 4.5-10.8 [facility] Comment on above: Performed By: #### C EDWARD ROCHA, ADIFF #### [address] [address] LABORATORYOrdered By: SYSTEM SYSTEM on 10-12-2024 Basophils [...] By: #### 9 1484 #### [facility] [address] [place] [address], [address] [place] [id number] [employer]k Screen Repairer: Duncan Mccormack MD Alphahydroxymidazolam Negative Normal <[address] [facility] Comment on above: Order Comment: FASTI NG: UNKNOWN Result Comment: See Note 1 Performed By: #### 9 1484 #### [facility] of [address], [address] [place] [address] Silk Screen Repairer: Duncan Mccormack MD Alphahydroxytriazolam Negative Normal <[address] [facility] Comment on above: Order Comment: FASTI NG: UNKNOWN Result Comment: See Note 1 Performed By: #### 9 1484 #### [facility] of [address], [address] [place] [address] [employer]k Screen Repairer: Duncan Mccormack MD Aminoclonazepam Negative Normal <25 [facility] Comment on above: Order Comment: FASTI NG: UNKNOWN Result Comment: See Note 1 Performed By: #### 9 1484 #### [facility] of [address], [address] [place] [address] [employer]k Screen Repairer: Duncan Mccormack MD Amphetamines Negative Normal <500 [facility] Comment on above: Order Comment: FASTI NG: UNKNOWN Performed By: #### 9 1484 #### [facility] of [address], [address] [place] [address] [employer]k Screen Repairer: Duncan Mccormack MD Barbiturates Negative Normal <300 [facility] Comment on above: Order Comment: FASTI NG: UNKNOWN Performed By: #### 9 1484 #### [facility] of [address], [address] [place] [address] Silk Screen Repairer: Duncan Mccormack MD Benzodiazepines Positive Abnormal <100 [facility] Comment on above: Order Comment: FASTI NG: UNKNOWN Performed By: #### 9 1484 #### [facility] of [address], [address] [place] [address] [employer]k Screen Repairer: Duncan Mccormack MD Buprenorphine Negative Normal <5 [facility] Comment on above: Order Comment: FASTI NG: UNKNOWN Performed By: #### 9 1484 #### [facility] of [address], [address] [place] [address] Silk Screen Repairer: Duncan Mccormack MD Cocaine Metabolite Negative Normal <150 [facility] Comment on above: Order Comment: FASTI NG: UNKNOWN Performed By: #### 9 1484 #### [facility] [address], [address] [place] [address] [employer]k Screen Repairer: Duncan Mccormack MD Codeine Negative Normal <50 [facility] Comment on above: Order Comment: FASTI NG: UNKNOWN Result Comment: See Note 1 Performed By: #### 9 1484 #### [facility] [place] [address] Silk Screen Repairer: Duncan Mccormack MD COMMENT Normal [facility] Comment on above: Order Comment: FASTI NG: UNKNOWN Result Comment: See Note 2 Note 1 This test was developed and its analytical performance characteristics have been determined by [facility]. It has not been cleared or approved [...] interpreting these drug results, please contact a [facility] Toxicology Specialist: [phone] ( ), M-F, 8am-6pm EST. Performed By: #### 9 1484 #### [facility] [address], [address] [place] [address] Silk Screen Repairer: Duncan Mccormack MD Heroin Metabolite Negative Normal <10 [facility] Comment on above: Order Comment: FASTI NG: UNKNOWN Performed By: #### 9 1484 #### [facility] [place] [address] Silk Screen Repairer: Duncan Mccormack MD Hydrocodone 395 ng/mL High <50 [facility] Comment on above: Order Comment: FASTI NG: UNKNOWN Result Comment: See Note 1 Performed By: #### 9 1484 #### [facility] [place] [address] Silk Screen Repairer: Duncan Mccormack MD Hydromorphone 69 ng/mL High <50 [facility] Comment on above: Order Comment: FASTI NG: UNKNOWN Result Comment: See Note 1 Performed By: #### 9 1484 #### [facility] of [address], [address] [place] [address] Silk Screen Repairer: Duncan Mccormack MD Hydroxyethylflurazepam Negative Normal <50 [facility] Comment on above: Order Comment: FASTI NG: UNKNOWN Result Comment: See Note 1 Performed By: #### 9 1484 #### [facility] of [address], [address] [place] [address] [employer]k Screen Repairer: Duncan Mccormack MD Lorazepam Negative Normal <50 [facility] Comment on above: Order Comment: FASTI NG: UNKNOWN Result Comment: See Note 1 Performed By: #### 9 1484 #### [facility] of [place] [address] Silk Screen Repairer: Duncan Mccormack MD Marijuana Metabolite 20 Negative Normal <20 [facility] Comment on above: Order Comment: FASTI NG: UNKNOWN Performed By: #### 9 1484 #### [facility] of [place] [address] Silk Screen Repairer: Duncan Mccormack MD Methadone Metabolite Negative Normal <100 [facility] Comment on above: Order Comment: FASTI NG: UNKNOWN Performed By: #### 9 1484 #### [facility] of [place] [address] Silk Screen Repairer: Duncan Mccormack MD Morphine Negative Normal <50 [facility] Comment on above: Order Comment: FASTI NG: UNKNOWN Result Comment: See Note 1 Performed By: #### 9 1484 #### [facility] of [place] [address] Silk Screen Repairer: Duncan Mccormack MD Nordiazepam Negative Normal <50 [facility] Comment on above: Order Comment: FASTI NG: UNKNOWN Result Comment: See Note 1 Performed By: #### 9 1484 #### [facility] of [address], [address] [place] [address] Silk Screen Repairer: Duncan Mccormack MD Norhydrocodone 851 ng/mL High <50 [facility] Comment on above: Order Comment: FASTI NG: UNKNOWN Result Comment: See Note 1 Performed By: #### 9 1484 #### [facility] of [address], [address] [place] [address] [employer]k Screen Repairer: Duncan Mccormack MD Opiates Positive Abnormal <100 [facility] Comment on above: Order Comment: FASTI NG: UNKNOWN Performed By: #### 9 1484 #### [facility] of [address], [address] [place] [address] Silk Screen Repairer: Duncan Mccormack MD Oxazepam Negative Normal <50 [facility] Comment on above: Order Comment: FASTI NG: UNKNOWN Result Comment: See Note 1 Performed By: #### 9 1484 #### [facility] of [place] [address] Silk Screen Repairer: Duncan Mccormack MD Oxycodone Negative Normal <100 [facility] Comment on above: Order Comment: FASTI NG: UNKNOWN Performed By: #### 9 1484 #### [facility] of [place] [address] Silk Screen Repairer: Duncan Mccormack MD Phencyclidine Negative Normal <25 [facility] Comment on above: Order Comment: FASTI NG: UNKNOWN Performed By: #### 9 1484 #### [facility] of [place] [address] Silk Screen Repairer: Duncan Mccormack MD Temazepam Negative Normal <50 [facility] Comment on above: Order Comment: FASTI NG: UNKNOWN Result Comment: See Note 1 Performed By: #### 9 1484 #### [facility] of [place] [address] Silk Screen Repairer: Duncan Mccormack MD .GFRon 09-05-2024 GFR 72 ml/min/1.73sqm Normal [facility] Comment on above: Result Comment: GFR [...] Performed By: #### G , BMP #### [address] [address] GFR Non- 59 ml/min/1.73sqm Normal [facility] Comment on above: Result Comment: GFR [...] Performed By: #### G , BMP #### [address] [address] A1Con 09-05-2024 Glucose [Mass/Vol] 128 mg/dL Normal [facility] Comment on above: Result Comment: [place] mated Average Glucose calculated by equation ((28.7xA1C)-46.7) Estimated average glucose (eAG) is a calculated value from Hemoglobin A1C and is service representative of the average blood glucose level in the last 2-3 month period. Normal range: less than 114 mg/dL Performed By: #### G , BMP #### [address] [address] HbA1c (Bld) [Mass fraction] 6.1 % Normal 4.3-6.4 [facility] Comment on above: Performed By: #### G , BMP #### [address] [address] CMPon 09-05-2024 Albumin Level 3.5 G/dL Normal 3.4-4.8 [facility] Comment on above: Performed By: #### G , BMP #### [address] [address] Albumin/Globulin [Mass ratio] 1.2 {ratio} Normal 1.1-2.5 [facility] Comment on above: Performed By: #### Ingris YATES, BMP #### [address] [address] ALP [Catalytic activity/Vol] 81 U/L Normal 40-135 [facility] Comment on above: Performed By: #### Ingris YATES, BMP #### [address] [address] ALT [Catalytic activity/Vol] 16 U/L Normal 14-59 [facility] Comment on above: Performed By: #### Ingris YATES, BMP #### [address] [address] AST [Catalytic activity/Vol] 18 U/L Normal 10-40 [facility] Comment on above: Performed By: #### Ingris YATES, BMP #### [address] [address] Bili Total 0.7 mg/dL Normal 0.2-1.0 [facility] Comment on above: Result Comment: Use of this assay is not recommended for patients undergoing treatment with eltrombopag due to the potential for falsely elevated results. Performed By: #### G , BMP #### [address] [address] BUN/Creatinine Ratio 12 ratio Normal 7-27 [facility] Comment on above: Performed By: #### Ingris YATES, BMP #### [address] [address] Calcium [Mass/Vol] 9.2 mg/dL Normal 8.4-10.2 [facility] Comment on above: Performed By: #### G FR, BMP #### [address] [address] Chloride [Moles/Vol] 105 mmol/L Normal 98-107 [facility] Comment on above: Performed By: #### G FR, BMP #### [address] [address] CO2 [Moles/Vol] 34 mmol/L High 23-31 [facility] Comment on above: Performed By: #### G FR, BMP #### [address] [address] Creatinine [Mass/Vol] 0.92 mg/dL Normal 0.55-1.02 [facility] Comment on above: Result Comment: Test ing performed on Siemens Dimension EXL analyzer using a modified kinetic Michael technique. Performed By: #### G , BMP #### [address] [address] Electrolyte Balance 6.0 mEq/L Normal 4.0-15.0 [facility] Comment on above: Performed By: #### G , BMP #### [address] [address] Globulin 2.9 G/dL Normal [facility] Comment on above: Performed By: #### G FR, BMP #### [address] [address] Glucose [Mass/Vol] 118 mg/dL High 83-110 [facility] Comment on above: Performed By: #### G FR, BMP #### [address] [address] Potassium [Moles/Vol] 4.0 mmol/L Normal 3.5-5.1 [facility] Comment on above: Performed By: #### G FR, BMP #### [address] [address] Sodium [Moles/Vol] 145 mmol/L Normal 136-145 [facility] Comment on above: Performed By: #### G FR, BMP #### [address] [address] Total Protein 6.4 G/dL Normal 6.4-8.2 [facility] Comment on above: Performed By: #### G FR, BMP #### [address] [address] Urea nitrogen [Mass/Vol] 11 mg/dL Normal 7-18 [facility] Comment on above: Performed By: #### G , BMP #### [address] [address] FT3on 09-05-2024 Free T3 [Mass/Vol] 1.98 pg/mL Low 2.30-4.00 [facility] Comment on above: Performed By: #### G , BMP #### [address] [address] FT4on 09-05-2024 Free T4 [Mass/Vol] 1.13 ng/dL Normal 0.76-1.46 [facility] Comment on above: Performed By: #### Ingris , BMP #### [address] [address] LABORATORYOrdered By: Wisam Perez on 09-05-2024 Albumin [...] calculated value from Hemoglobin A1C and is service representative of the average blood glucose level [...] 09-05-2024 Cholesterol [Mass/Vol] 174 mg/dL Normal 0-200 [facility] Comment on above: Result Comment: Chol esterol Reference Interval: Less than 200 Desirable 200-239 Borderline high risk 240 and above High risk Performed By: #### G FR, BMP #### [address] [address] Cholesterol in HDL [Mass/Vol] 43 mg/dL Normal 40-60 [facility] Comment on above: Performed By: #### G FR, BMP #### [address] [address] Cholesterol in LDL [Mass/Vol] 115 mg/dL Normal 0-130 [facility] Comment on above: Performed By: #### G FR, BMP #### [address] [address] Triglyceride [Mass/Vol] 80 mg/dL Normal 0-150 [facility] Comment on above: Result Comment: Trig lyceride Reference Interval: Less than 150 Normal 150-199 Borderline high risk 200-499 High risk 500 or higher Very high risk Performed By: #### G FR, BMP #### [address] [address] MALBRon 09-05-2024 U Creatinine 79.8 mg/dL Normal [facility] Comment on above: Performed By: #### G , BMP #### [address] [address] U Microalb 200 mcg/dL Normal [facility] Comment on above: Performed By: #### G , BMP #### [address] [address] U Ratio Alb/Cre 2 mcg/mg Normal 0-30 [facility] Comment on above: Performed By: #### Ingris YATES, BMP #### [address] [address] TSHon 09-05-2024 TSH Qn 1.76 m[IU]/L Normal 0.36-3.74 [facility] Comment on above: Performed By: #### Ingris YATES, BMP #### [address] [address] VIDHon 09-05-2024 Vit. D 25-Hydroxy 35.4 ng/mL Normal [facility] Comment on above: Result Comment: Inte rpretive Values Based on Total 25(OH) Vitamin D: Deficient <20 ng/mL Insufficient 20 - <30 ng/mL Sufficient 30-100 ng/mL Performed By: #### Ingris YATES, BMP #### [address] [address] [place] MAMMOGRAM SCREENING BILAT ERAL W/TOMOon 08-31-2024 MA MAMMOGRAM SCREENING BILATERAL W/NATO ORIGINAL FROM: [address] [address] PROCEDURE FOR: RAGHAV GREGORY [address] [place] [id number] Home: PID#: [id number] Exam#: [id number] : 1950 Age: 74 TO: MATHIEU ROLAND DO [address] [address] Fax: NO FAX EXAMINATION: SCREENING DIGITAL BILATERAL [...] screening with annual mammograms is recommended. [facility] risk calculations, generated with the history provided, [...] addition to annual mammographic screening per the [employer]. BIRADS: BI-RADS: 2: Benign RECALL: 1 year screening RECALL TYPE: mammo LETTER SENT: Normal BI-RADS 1 and 2 Interpreted by: Eder Victoria MD Preliminary Report By: Eder Victoria MD Electronically signed By Eder Victoria MD Dictated Date: 08/31/2024 5:04:35 PM Prelim Date: 08/31/2024 5:06:44 PM Sign Date: 08/31/2024 5:06:44 PM Ordering Provider: MATHIEU ROLAND Data Lead: STACI QUIROS RT(R)(CT) letter sent: Normal BI-RADS 1 and 2 Mammogram BI-RADS: 2 Benign Normal [facility] BD BONE DENSITY DEXA AXIAL S EDDIEon 08-30-2024 BD BONE DENSITY DEXA AXIAL SKELETON ORIGINAL EXAMINATION: BONE DENSITOMETRY 08/30/2024 6:00 am TECHNIQUE: A bone density dual x-ray absorptiometry (DEXA) scan was performed of the spine and left hip on a [employer] system. COMPARISON: 06/02/2022 HISTORY: ORDERING SYSTEM PROVIDED [...] 08/30/2024 11:29:37 AM Ordering Provider: MATHIEU ROLAND [facility] CT HEAD OR BRAIN W/O CONTRAS [...] Kaz Gustafson MD Preliminary Report By: Kaz Gustasfon MD Electronically signed By Kaz Gustafson MD Dictated Date: 08/29/2024 2:34:30 PM Prelim Date: 08/29/2024 2:35:35 PM Sign Date: 08/29/2024 2:35:35 PM Ordering Provider: MATHIEU ROLAND [facility] DRUG TOX MONITORING 4 W/CONF , URINEon 03-21-2024 Alphahydroxyalprazolam 298 ng/mL High <25 [facility] Comment on above: Order Comment: FASTI NG: UNKNOWN Result Comment: See Note 1 Performed By: #### 9 1484 #### [facility] of [address], [address] [place] [address] Silk Screen Repairer: Duncan Mccormack MD Alphahydroxymidazolam Negative Normal <[address] [facility] Comment on above: Order Comment: FASTI NG: UNKNOWN Result Comment: See Note 1 Performed By: #### 9 1484 #### [facility] of [place] [address] Silk Screen Repairer: Duncan Mccormack MD Alphahydroxytriazolam Negative Normal <[address] [facility] Comment on above: Order Comment: FASTI NG: UNKNOWN Result Comment: See Note 1 Performed By: #### 9 1484 #### [facility] of [place] [address] Silk Screen Repairer: Duncan Mccormack MD Aminoclonazepam Negative Normal <25 [facility] Comment on above: Order Comment: FASTI NG: UNKNOWN Result Comment: See Note 1 Performed By: #### 9 1484 #### [facility] [place] [address] Silk Screen Repairer: Duncan Mccormack MD Amphetamines Negative Normal <500 [facility] Comment on above: Order Comment: FASTI NG: UNKNOWN Performed By: #### 9 1484 #### [facility] [place] [address] Silk Screen Repairer: Duncan Mccormack MD Barbiturates Negative Normal <300 [facility] Comment on above: Order Comment: FASTI NG: UNKNOWN Performed By: #### 9 1484 #### [facility] [place] [address] Silk Screen Repairer: Duncan Mccormack MD Benzodiazepines Positive Abnormal <100 [facility] Comment on above: Order Comment: FASTI NG: UNKNOWN Performed By: #### 9 1484 #### [facility] [address], [address] [place] [address] Silk Screen Repairer: Duncan Mccormack MD Buprenorphine Negative Normal <5 [facility] Comment on above: Order Comment: FASTI NG: UNKNOWN Performed By: #### 9 1484 #### [facility] [address], [address] [place] [address] Silk Screen Repairer: Duncan Mccormack MD Cocaine Metabolite Negative Normal <150 [facility] Comment on above: Order Comment: FASTI NG: UNKNOWN Performed By: #### 9 1484 #### [facility] [address], [address] [place] [address] Silk Screen Repairer: Duncan Mccormack MD Codeine Negative Normal <50 [facility] Comment on above: Order Comment: FASTI NG: UNKNOWN Result Comment: See Note 1 Performed By: #### 9 1484 #### [facility] [address], [address] [place] [address] Silk Screen Repairer: Duncan Mccormack MD COMMENT Normal [facility] Comment on above: Order Comment: FASTI NG: UNKNOWN Result Comment: See Note 2 Note 1 This test was developed and its analytical performance characteristics have been determined by [employer]. It has not been cleared or approved [...] interpreting these drug results, please contact a [facility] Toxicology Specialist: [phone] ( ), M-F, 8am-6pm EST. Performed By: #### 9 1484 #### [facility] [address], [address] [place] [address] Silk Screen Repairer: Duncan Mccormack MD Heroin Metabolite Negative Normal <10 [facility] Comment on above: Order Comment: FASTI NG: UNKNOWN Performed By: #### 9 1484 #### [facility] [address], [address] [place] [address] Silk Screen Repairer: Duncan Mccormack MD Hydrocodone 689 ng/mL High <50 [facility] Comment on above: Order Comment: FASTI NG: UNKNOWN Result Comment: See Note 1 Performed By: #### 9 1484 #### [facility] [place] [address] Silk Screen Repairer: Duncan Mccormack MD Hydromorphone 187 ng/mL High <50 [facility] Comment on above: Order Comment: FASTI NG: UNKNOWN Result Comment: See Note 1 Performed By: #### 9 1484 #### [facility] [place] [address] Silk Screen Repairer: Duncan Mccormack MD Hydroxyethylflurazepam Negative Normal <50 [facility] Comment on above: Order Comment: FASTI NG: UNKNOWN Result Comment: See Note 1 Performed By: #### 9 1484 #### [facility] [place] [address] Silk Screen Repairer: Duncan Mccormack MD Lorazepam Negative Normal <50 [facility] Comment on above: Order Comment: FASTI NG: UNKNOWN Result Comment: See Note 1 Performed By: #### 9 1484 #### [facility] [place] [address] Silk Screen Repairer: Duncan Mccormack MD Marijuana Metabolite 20 Negative Normal <20 [facility] Comment on above: Order Comment: FASTI NG: UNKNOWN Performed By: #### 9 1484 #### [facility] [place] [address] Silk Screen Repairer: Duncan Mccormack MD Methadone Metabolite Negative Normal <100 [facility] Comment on above: Order Comment: FASTI NG: UNKNOWN Performed By: #### 9 1484 #### [facility] [place] [address] Silk Screen Repairer: Duncan Mccormack MD Morphine Negative Normal <50 [facility] Comment on above: Order Comment: FASTI NG: UNKNOWN Result Comment: See Note 1 Performed By: #### 9 1484 #### [facility] [address], [address] [place], [place] [id number] Silk Screen Repairer: Duncan Mccormack MD Nordiazepam Negative Normal <50 [facility] Comment on above: Order Comment: FASTI NG: UNKNOWN Result Comment: See Note 1 Performed By: #### 9 1484 #### [facility] [address], [address] [place] [address] Silk Screen Repairer: Duncan Mccormack MD Norhydrocodone 1360 ng/mL High <50 [facility] Comment on above: Order Comment: FASTI NG: UNKNOWN Result Comment: See Note 1 Performed By: #### 9 1484 #### [facility] [address], [address] [place] [address] Silk Screen Repairer: Duncan Mccormack MD Opiates Positive Abnormal <100 [facility] Comment on above: Order Comment: FASTI NG: UNKNOWN Performed By: #### 9 1484 #### [facility] [address], [address] [place], [place] [id number] Silk Screen Repairer: Duncan Mccormack MD Oxazepam Negative Normal <50 [facility] Comment on above: Order Comment: FASTI NG: UNKNOWN Result Comment: See Note 1 Performed By: #### 9 1484 #### [facility] [address], [address] [place], [place] [id number] Silk Screen Repairer: Duncan Mccormack MD Oxycodone Negative Normal <100 [facility] Comment on above: Order Comment: FASTI NG: UNKNOWN Performed By: #### 9 1484 #### [facility] [address], [address] [place], [place] [address] Silk Screen Repairer: Duncan Mccormack MD Phencyclidine Negative Normal <25 [facility] Comment on above: Order Comment: FASTI NG: UNKNOWN Performed By: #### 9 1484 #### [facility] [address], [address] [place], [place] [id number] Silk Screen Repairer: Duncan Mccormack MD Temazepam Negative Normal <50 [facility] Comment on above: Order Comment: FASTI NG: UNKNOWN Result Comment: See Note 1 Performed By: #### 9 1484 #### [facility] [address] [facility], [address] [place] [address] Silk Screen Repairer: Duncan Mccormack MD .GFRon 02-29-2024 GFR 93 ml/min/1.73sqm Normal [facility] ([place]) Comment on above: Result Comment: GFR Population [...] VIDH, FT4, A1C, GFR, TSH #### [place] [address] [address] GFR Non- 77 ml/min/1.73sqm Normal [facility] ([place]) Comment on above: Result Comment: GFR Population [...] LIPID, VIDH, FT4, A1C, GFR, TSH #### [place] [address] A1Con 02-29-2024 HbA1c (Bld) [Mass fraction] 6.6 % High 4.3-6.4 [facility] ([place]) Comment on above: Performed By: #### C MP, LIPID, VIDH, FT4, A1C, GFR, TSH #### [address] [address] CMPon 02-29-2024 Albumin Level 3.7 G/dL Normal 3.4-4.8 [facility] ([place]) Comment on above: Performed By: #### C MP, LIPID, VIDH, FT4, A1C, GFR, TSH #### [address] [address] Albumin/Globulin [Mass ratio] 1.3 {ratio} Normal 1.1-2.5 [facility] ([place]) Comment on above: Performed By: #### C MP, LIPID, VIDH, FT4, A1C, GFR, TSH #### [address] [address] ALP [Catalytic activity/Vol] 54 U/L Normal 40-135 [facility] ([place]) Comment on above: Performed By: #### C MP, LIPID, VIDH, FT4, A1C, GFR, TSH #### [address] [address] ALT [Catalytic activity/Vol] 29 U/L Normal 14-59 [facility] ([place]) Comment on above: Performed By: #### C MP, LIPID, VIDH, FT4, A1C, GFR, TSH #### [address] [address] AST [Catalytic activity/Vol] 30 U/L Normal 10-40 [facility] ([place]) Comment on above: Performed By: #### C MP, LIPID, VIDH, FT4, A1C, GFR, TSH #### [address] [address] Bili Total 0.6 mg/dL Normal 0.2-1.0 [facility] ([place]) Comment on above: Result Comment: Use of this assay is not recommended for patients undergoing treatment with eltrombopag due to the potential for falsely elevated results. Performed By: #### C MP, LIPID, VIDH, FT4, A1C, GFR, TSH #### [address] [address] BUN/Creatinine Ratio 16 ratio Normal 7-27 [facility] ([place]) Comment on above: Performed By: #### C MP, LIPID, VIDH, FT4, A1C, GFR, TSH #### [address] [address] Calcium [Mass/Vol] 9.2 mg/dL Normal 8.4-10.2 [facility] ([place]) Comment on above: Performed By: #### C MP, LIPID, VIDH, FT4, A1C, GFR, TSH #### [address] [address] Chloride [Moles/Vol] 95 mmol/L Low 98-107 [facility] ([place]) Comment on above: Performed By: #### C MP, LIPID, VIDH, FT4, A1C, GFR, TSH #### [address] [address] CO2 [Moles/Vol] 34 mmol/L High 23-31 [facility] ([place]) Comment on above: Performed By: #### C MP, LIPID, VIDH, FT4, A1C, GFR, TSH #### [address] [address] Creatinine [Mass/Vol] 0.74 mg/dL Normal 0.55-1.02 [facility] ([place]) Comment on above: Performed By: #### C MP, LIPID, VIDH, FT4, A1C, GFR, TSH #### [address] [address] Electrolyte Balance 5.0 mEq/L Normal 4.0-15.0 [facility] ([place]) Comment on above: Performed By: #### C MP, LIPID, VIDH, FT4, A1C, GFR, TSH #### [address] [address] Globulin 2.8 G/dL Normal [facility] ([place]) Comment on above: Performed By: #### C MP, LIPID, VIDH, FT4, A1C, GFR, TSH #### [address] [address] Glucose [Mass/Vol] 123 mg/dL High 83-110 [facility] ([place]) Comment on above: Performed By: #### C MP, LIPID, VIDH, FT4, A1C, GFR, TSH #### [place] [address] [address] Potassium [Moles/Vol] 3.7 mmol/L Normal 3.5-5.1 [facility] ([place]) Comment on above: Performed By: #### C MP, LIPID, VIDH, FT4, A1C, GFR, TSH #### [address] [address] Sodium [Moles/Vol] 134 mmol/L Low 136-145 [facility] ([place]) Comment on above: Performed By: #### C MP, LIPID, VIDH, FT4, A1C, GFR, TSH #### [address] [address] Total Protein 6.5 G/dL Normal 6.4-8.2 [facility] ([place]) Comment on above: Performed By: #### C MP, LIPID, VIDH, FT4, A1C, GFR, TSH #### [address] [address] Urea nitrogen [Mass/Vol] 12 mg/dL Normal 7-18 [facility] ([place]) Comment on above: Performed By: #### C MP, LIPID, VIDH, FT4, A1C, GFR, TSH #### [address] [address] FT3on 02-29-2024 Free T3 [Mass/Vol] 1.97 pg/mL Low 2.30-4.00 [facility] ([place]) Comment on above: Performed By: #### C MP, LIPID, VIDH, FT4, A1C, GFR, TSH #### [facility] [address] [place], [place] [address] FT4on 02-29-2024 Free T4 [Mass/Vol] 1.31 ng/dL Normal 0.76-1.46 [facility] ([place]) Comment on above: Performed By: #### C MP, LIPID, VIDH, FT4, A1C, GFR, TSH #### [address] [place], [place] [address] LABORATORYOrdered By: SYSTEM SYSTEM on 02-29-2024 25-hydroxyvitamin [...] 02-29-2024 Cholesterol [Mass/Vol] 121 mg/dL Normal 0-200 [facility] ([place]) Comment on above: Result Comment: Chol esterol Reference Interval: Less than 200 Desirable 200-239 Borderline high risk 240 and above High risk Performed By: #### C MP, LIPID, VIDH, FT4, A1C, GFR, TSH #### [address] [address] Cholesterol in HDL [Mass/Vol] 52 mg/dL Normal 40-60 [facility] ([place]) Comment on above: Performed By: #### C MP, LIPID, VIDH, FT4, A1C, GFR, TSH #### [place] [place], [place] [address] Cholesterol in LDL [Mass/Vol] 50 mg/dL Normal 0-130 [facility] ([place]) Comment on above: Performed By: #### C MP, LIPID, VIDH, FT4, A1C, GFR, TSH #### [address] [address] Triglyceride [Mass/Vol] 96 mg/dL Normal 0-150 [facility] ([place]) Comment on above: Result Comment: Trig lyceride Reference Interval: Less than 150 Normal 150-199 Borderline high risk 200-499 High risk 500 or higher Very high risk Performed By: #### C MP, LIPID, VIDH, FT4, A1C, GFR, TSH #### [place] [address] [place], [place] [address] TSHon 02-29-2024 TSH Qn 1.68 m[IU]/L Normal 0.36-3.74 [facility] ([place]) Comment on above: Performed By: #### C MP, LIPID, VIDH, FT4, A1C, GFR, TSH #### [address] [address] US THYROIDon 02-29-2024 US THYROID ORIGINAL EXAMINATION: [...] 02/29/2024 2:06:10 PM Ordering Provider: MARQUISE Lacy [facility] ([place]) Cele 02-29-2024 Vit. D 25-Hydroxy 37.0 ng/mL Normal [facility] ([place]) Comment on above: Result Comment: Inte rpretive Values Based on Total 25(OH) Vitamin D: Deficient <20 ng/mL Insufficient 20 - <30 ng/mL Sufficient 30-100 ng/mL Performed By: #### C MP, LIPID, VIDH, FT4, A1C, GFR, TSH #### [address] [address] .GFRon 10-20-2023 GFR Non- 48 ml/min/1.73sqm Normal [facility] ([place]) Comment on above: Result Comment: GFR Population [...] LIPID, VIDH, FT4, A1C, GFR, TSH #### [address] [address] GFR 58 ml/min/1.73sqm Normal [facility] ([place]) Comment on above: Result Comment: GFR Population [...] LIPID, VIDH, FT4, A1C, GFR, TSH #### [address] [address] A1Con 10-20-2023 HbA1c (Bld) [Mass fraction] 6.9 % High 4.3-6.4 [facility] ([place]) Comment on above: Performed By: #### C MP, LIPID, VIDH, FT4, A1C, GFR, TSH #### [address] [address] CMPon 10-20-2023 Albumin Level 3.7 G/dL Normal 3.4-4.8 [facility] ([place]) Comment on above: Performed By: #### C MP, LIPID, VIDH, FT4, A1C, GFR, TSH #### [address] [address] Albumin/Globulin [Mass ratio] 1.2 {ratio} Normal 1.1-2.5 [facility] ([place]) Comment on above: Performed By: #### C MP, LIPID, VIDH, FT4, A1C, GFR, TSH #### [address] [address] ALP [Catalytic activity/Vol] 68 U/L Normal 40-135 [facility] ([place]) Comment on above: Performed By: #### C MP, LIPID, VIDH, FT4, A1C, GFR, TSH #### [address] [address] ALT [Catalytic activity/Vol] 14 U/L Normal 14-59 [facility] ([place]) Comment on above: Performed By: #### C MP, LIPID, VIDH, FT4, A1C, GFR, TSH #### [address] [address] AST [Catalytic activity/Vol] 11 U/L Normal 10-40 [facility] ([place]) Comment on above: Performed By: #### C MP, LIPID, VIDH, FT4, A1C, GFR, TSH #### [address] [address] Bili Total 0.5 mg/dL Normal 0.2-1.0 [facility] ([place]) Comment on above: Result Comment: Use of this assay is not recommended for patients undergoing treatment with eltrombopag due to the potential for falsely elevated results. Performed By: #### C MP, LIPID, VIDH, FT4, A1C, GFR, TSH #### [address] [address] BUN/Creatinine Ratio 15 ratio Normal 7-27 [facility] ([place]) Comment on above: Performed By: #### C MP, LIPID, VIDH, FT4, A1C, GFR, TSH #### [address] [address] Calcium [Mass/Vol] 9.5 mg/dL Normal 8.4-10.2 [facility] ([place]) Comment on above: Performed By: #### C MP, LIPID, VIDH, FT4, A1C, GFR, TSH #### [address] [address] Chloride [Moles/Vol] 97 mmol/L Low 98-107 [facility] ([place]) Comment on above: Performed By: #### C MP, LIPID, VIDH, FT4, A1C, GFR, TSH #### [address] [address] CO2 [Moles/Vol] 33 mmol/L High 23-31 [facility] ([place]) Comment on above: Performed By: #### C MP, LIPID, VIDH, FT4, A1C, GFR, TSH #### [address] [address] Creatinine [Mass/Vol] 1.11 mg/dL High 0.55-1.02 [facility] ([place]) Comment on above: Performed By: #### C MP, LIPID, VIDH, FT4, A1C, GFR, TSH #### [address] [address] Electrolyte Balance 8.0 mEq/L Normal 4.0-15.0 [facility] ([place]) Comment on above: Performed By: #### C MP, LIPID, VIDH, FT4, A1C, GFR, TSH #### [address] [address] Globulin 3.2 G/dL Normal [facility] ([place]) Comment on above: Performed By: #### C MP, LIPID, VIDH, FT4, A1C, GFR, TSH #### [address] [address] Glucose [Mass/Vol] 178 mg/dL High 83-110 [facility] ([place]) Comment on above: Performed By: #### C MP, LIPID, VIDH, FT4, A1C, GFR, TSH #### [address] [address] Potassium [Moles/Vol] 3.5 mmol/L Normal 3.5-5.1 [facility] ([place]) Comment on above: Performed By: #### C MP, LIPID, VIDH, FT4, A1C, GFR, TSH #### [address] [address] Sodium [Moles/Vol] 138 mmol/L Normal 136-145 [facility] ([place]) Comment on above: Performed By: #### C MP, LIPID, VIDH, FT4, A1C, GFR, TSH #### [address] [address] Total Protein 6.9 G/dL Normal 6.4-8.2 [facility] ([place]) Comment on above: Performed By: #### C MP, LIPID, VIDH, FT4, A1C, GFR, TSH #### [address] [address] Urea nitrogen [Mass/Vol] 17 mg/dL Normal 7-18 [facility] ([place]) Comment on above: Performed By: #### C MP, LIPID, VIDH, FT4, A1C, GFR, TSH #### [address] [address] FT4on 10-20-2023 Free T4 [Mass/Vol] 1.28 ng/dL Normal 0.76-1.46 [facility] ([place]) Comment on above: Performed By: #### C MP, LIPID, VIDH, FT4, A1C, GFR, TSH #### [address] [address] LABORATORYOrdered By: Latonya [place] on 10-20-2023 Albumin [...] 10-20-2023 Cholesterol [Mass/Vol] 205 mg/dL High 0-200 [facility] ([place]) Comment on above: Result Comment: Chol esterol Reference Interval: Less than 200 Desirable 200-239 Borderline high risk 240 and above High risk Performed By: #### C MP, LIPID, VIDH, FT4, A1C, GFR, TSH #### [address] [address] Cholesterol in HDL [Mass/Vol] 46 mg/dL Normal 40-60 [facility] ([place]) Comment on above: Performed By: #### C MP, LIPID, VIDH, FT4, A1C, GFR, TSH #### [address] [place], [place] [address] Cholesterol in LDL [Mass/Vol] 128 mg/dL Normal 0-130 [facility] ([place]) Comment on above: Performed By: #### C MP, LIPID, VIDH, FT4, A1C, GFR, TSH #### [address] [address] Triglyceride [Mass/Vol] 156 mg/dL High 0-150 [facility] ([place]) Comment on above: Result Comment: Trig lyceride Reference Interval: Less than 150 Normal 150-199 Borderline high risk 200-499 High risk 500 or higher Very high risk Performed By: #### C MP, LIPID, VIDH, FT4, A1C, GFR, TSH #### [address] [address] MALBRon 10-20-2023 U Creatinine 117.6 mg/dL High 28.0-117.0 [facility] ([place]) Comment on above: Performed By: #### C MP, LIPID, VIDH, FT4, A1C, GFR, TSH #### [address] [address] U Microalb 820 mcg/dL Normal [facility] ([place]) Comment on above: Performed By: #### C MP, LIPID, VIDH, FT4, A1C, GFR, TSH #### [address] [address] U Ratio Alb/Cre 7 mcg/mg Normal 0-30 [facility] ([place]) Comment on above: Performed By: #### C MP, LIPID, VIDH, FT4, A1C, GFR, TSH #### [address] [address] TSHon 10-20-2023 TSH Qn 2.90 m[IU]/L Normal 0.36-3.74 [facility] ([place]) Comment on above: Performed By: #### C MP, LIPID, VIDH, FT4, A1C, GFR, TSH #### [address] [address] VIDHon 10-20-2023 Vit. D 25-Hydroxy 43.8 ng/mL Normal [facility] ([place]) Comment on above: Result Comment: Inte rpretive Values Based on Total 25(OH) Vitamin D: Deficient <20 ng/mL Insufficient 20 - <30 ng/mL Sufficient 30-100 ng/mL Performed By: #### C MP, LIPID, VIDH, FT4, A1C, GFR, TSH #### [address] [place], [place] [address] Emergency Department Summary on 08-22-2023 Emergency Department Summary [facility] Medical Records Department [address] [place] [address] Emergency Department Summary 08/22/23 MR#: [id number] Acct: [id number] Name: RAGHAV GREGORY Rep #: [id number] : 1950 73 From: Jean-Paul Suarez DO [...] but her children Urging her to come. [facility] Medical History Chronic ulcer of left heel [...] for pale (more content not included)... Normal [facility] MAMMOGRAM SCREENING BILAT ERAL W/TOMOon 08-21-2023 MA MAMMOGRAM SCREENING BILATERAL W/NATO ORIGINAL FROM: [place] [address] PROCEDURE FOR: RAGHAV GandaraJevon BRI [address] [place] [id number] Home: PID#: [id number] Exam#: [id number] : 1950 Age: 73 TO: MATHIEU ROLAND DO [address] [place] [address] Fax: NO FAX EXAMINATION: SCREENING DIGITAL BILATERAL [...] addition to annual mammographic screening per the [employer]. 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 letter sent: Probably Benign BI-RADS 3 Mammogram BI-RADS: 2 Benign Normal [facility] ([place]) .GFRon 06-23-2023 GFR Non- 56 ml/min/1.73sqm Normal [facility] ([place]) Comment on above: Result Comment: GFR Population [...] LIPID, VIDH, FT4, A1C, GFR, TSH #### [address] [address] GFR 68 ml/min/1.73sqm Normal [facility] ([place]) Comment on above: Result Comment: GFR Population [...] LIPID, VIDH, FT4, A1C, GFR, TSH #### [address] [address] A1Con 06-23-2023 HbA1c (Bld) [Mass fraction] 6.4 % Normal 4.3-6.4 [facility] ([place]) Comment on above: Performed By: #### C MP, LIPID, VIDH, FT4, A1C, GFR, TSH #### [address] [address] CMPon 06-23-2023 Albumin Level 3.7 G/dL Normal 3.4-4.8 [facility] ([place]) Comment on above: Performed By: #### C MP, LIPID, VIDH, FT4, A1C, GFR, TSH #### [address] [address] Albumin/Globulin [Mass ratio] 1.2 {ratio} Normal 1.1-2.5 [facility] ([place]) Comment on above: Performed By: #### C MP, LIPID, VIDH, FT4, A1C, GFR, TSH #### [address] [address] ALP [Catalytic activity/Vol] 77 U/L Normal 40-135 [facility] ([place]) Comment on above: Performed By: #### C MP, LIPID, VIDH, FT4, A1C, GFR, TSH #### [address] [address] ALT [Catalytic activity/Vol] 15 U/L Normal 14-59 [facility] ([place]) Comment on above: Performed By: #### C MP, LIPID, VIDH, FT4, A1C, GFR, TSH #### [address] [address] AST [Catalytic activity/Vol] 16 U/L Normal 10-40 [facility] ([place]) Comment on above: Performed By: #### C MP, LIPID, VIDH, FT4, A1C, GFR, TSH #### [address] [address] Bili Total 0.4 mg/dL Normal 0.2-1.0 [facility] ([place]) Comment on above: Result Comment: Use of this assay is not recommended for patients undergoing treatment with eltrombopag due to the potential for falsely elevated results. Performed By: #### C MP, LIPID, VIDH, FT4, A1C, GFR, TSH #### [address] [address] BUN/Creatinine Ratio 11 ratio Normal 7-27 [facility] ([place]) Comment on above: Performed By: #### C MP, LIPID, VIDH, FT4, A1C, GFR, TSH #### [address] [address] Calcium [Mass/Vol] 8.9 mg/dL Normal 8.4-10.2 [facility] ([place]) Comment on above: Performed By: #### C MP, LIPID, VIDH, FT4, A1C, GFR, TSH #### [address] [address] Chloride [Moles/Vol] 106 mmol/L Normal 98-107 [facility] ([place]) Comment on above: Performed By: #### C MP, LIPID, VIDH, FT4, A1C, GFR, TSH #### [address] [address] CO2 [Moles/Vol] 29 mmol/L Normal 23-31 [facility] ([place]) Comment on above: Performed By: #### C MP, LIPID, VIDH, FT4, A1C, GFR, TSH #### [address] [address] Creatinine [Mass/Vol] 0.97 mg/dL Normal 0.55-1.02 [facility] ([place]) Comment on above: Performed By: #### C MP, LIPID, VIDH, FT4, A1C, GFR, TSH #### [address] [address] Electrolyte Balance 6.0 mEq/L Normal 4.0-15.0 [facility] ([place]) Comment on above: Performed By: #### C MP, LIPID, VIDH, FT4, A1C, GFR, TSH #### [address] [address] Globulin 3.1 G/dL Normal [facility] ([place]) Comment on above: Performed By: #### C MP, LIPID, VIDH, FT4, A1C, GFR, TSH #### [address] [address] Glucose [Mass/Vol] 138 mg/dL High 83-110 [facility] ([place]) Comment on above: Performed By: #### C MP, LIPID, VIDH, FT4, A1C, GFR, TSH #### [address] [address] Potassium [Moles/Vol] 5.1 mmol/L Normal 3.5-5.1 [facility] ([place]) Comment on above: Performed By: #### C MP, LIPID, VIDH, FT4, A1C, GFR, TSH #### [address] [address] Sodium [Moles/Vol] 141 mmol/L Normal 136-145 [facility] ([place]) Comment on above: Performed By: #### C MP, LIPID, VIDH, FT4, A1C, GFR, TSH #### [address] [place], [place] [address] Total Protein 6.8 G/dL Normal 6.4-8.2 [facility] ([place]) Comment on above: Performed By: #### C MP, LIPID, VIDH, FT4, A1C, GFR, TSH #### [address] [address] Urea nitrogen [Mass/Vol] 11 mg/dL Normal 7-18 [facility] ([place]) Comment on above: Performed By: #### C MP, LIPID, VIDH, FT4, A1C, GFR, TSH #### [address] [address] FT3on 06-23-2023 Free T3 [Mass/Vol] 2.32 pg/mL Normal 2.30-4.00 [facility] ([place]) Comment on above: Performed By: #### C MP, LIPID, VIDH, FT4, A1C, GFR, TSH #### [address] [address] HCVon 06-23-2023 Hep C Ab Non-Reactive Normal Non-Reactiv e [facility] ([place]) Comment on above: Performed By: #### H CV1 #### [address] [address] Hep C Ab Int Normal [facility] ([place]) Comment on above: Result Comment: Nonr eactive: Samples with a value < 0.80 are considered nonreactive (negative) for antibodies to HCV. A negative test result does not exclude the possibility of exposure to or infection with HCV. HCV antibodies may be undetectable in some stages of the infection and in some clinical conditions. See Interp Performed By: #### H CV1 #### [address] [address] LIPIDon 06-23-2023 Cholesterol [Mass/Vol] 178 mg/dL Normal 0-200 [facility] ([place]) Comment on above: Result Comment: Chol esterol Reference Interval: Less than 200 Desirable 200-239 Borderline high risk 240 and above High risk Performed By: #### C MP, LIPID, VIDH, FT4, A1C, GFR, TSH #### [address] [address] Cholesterol in HDL [Mass/Vol] 43 mg/dL Normal 40-60 [facility] ([place]) Comment on above: Performed By: #### C MP, LIPID, VIDH, FT4, A1C, GFR, TSH #### [address] [address] Cholesterol in LDL [Mass/Vol] 110 mg/dL Normal 0-130 [facility] ([place]) Comment on above: Performed By: #### C MP, LIPID, VIDH, FT4, A1C, GFR, TSH #### [address] [address] Triglyceride [Mass/Vol] 123 mg/dL Normal 0-150 [facility] ([place]) Comment on above: Result Comment: Trig lyceride Reference Interval: Less than 150 Normal 150-199 Borderline high risk 200-499 High risk 500 or higher Very high risk Performed By: #### C MP, LIPID, VIDH, FT4, A1C, GFR, TSH #### [address] [address] TSHon 06-23-2023 TSH Qn 1.77 m[IU]/L Normal 0.36-3.74 [facility] ([place]) Comment on above: Performed By: #### C MP, LIPID, VIDH, FT4, A1C, GFR, TSH #### [address] [address] VIDHon 06-23-2023 Vit. D 25-Hydroxy 29.9 ng/mL Normal [facility] ([place]) Comment on above: Result Comment: Inte rpretive Values Based on Total 25([place]) Vitamin D: Deficient <20 ng/mL Insufficient 20 - <30 ng/mL Sufficient 30-100 ng/mL Performed By: #### C MP, LIPID, VIDH, FT4, A1C, GFR, TSH #### [address] [address] LABORATORYOrdered By: Keri Goldstein on 02-12-2023 Albumin [...] Schmidt on 10-31-2022 Wound Culture Staphylococcus aureus [facility] Wound Cultureon 10-31-2022 WC Staphylococcus [...] S Vancomycin Islt JACOB <=0.5 S Normal [facility] Comment on above: Performed By: #### M 100.3000, M1.1999 #### [facility] [address] [place], [place], [address] Gram Stainon 10-30-2022 GS Gram Stain Rare Epithelial cells Rare White Blood Cells Rare Gram positive cocci Normal [facility] Comment on above: Performed By: #### M 100.3000, .1999 #### [facility] [address] [place], [place], [address] Gram stain for investigation of transfusion reactionOrdered By: Dr. Schmidt on 10-30-2022 Microscopic observation Gram stain Nom (Unsp spec) [facility] LABORATORYOrdered By: SYSTEM SYSTEM on [...] W/Diff, Automatedon 08-31 PATH REV Reviewed Normal [facility] Comment on above: Result Comment: Neut rophilic leukocytosis. Polycythemia Clinical correlation necessary. Eliezer Johns M.D. 09/17/22 AMENDED REPORT 09/17/22 0939 PATH REV previously reported as: December magy Performed By: #### L 500.3400, L501.4020, L501.2450, L100.0100, L500.2500 #### [facility] [address] [place], [address] 12 Lead EKGon 09-16-2022 12 Lead EKG [facility] [address] [place] [address] 12 Lead EKG 09/15/22 2350 MR#: [id number] Acct: [id number] Name: RAGHAV GREGORY Rep #: [id number] : 1950 72 From: Jonny Lynch MD [...] ECG Confirmed by MANDY KEY, JONNY ([id number]), commissioning editor MUSA NICOLE ([id number]) on 09/18/2022 8:31:52 AM Referred By: SHE Confirmed By:JONNY LYNCH MD 09/18/22830 Date Jonny Lynch MD CC: Dr. Whitney Ott MD; Dr. Mathieu Roland DO Signed Normal [facility] Abdomen/Pelvis without Conto n 09-16-2022 Abdomen/Pelvis without Cont [facility] Imaging Services [address] [place] [address] Abdomen/Pelvis without Cont MR#: [id number] Acct: [id number] Name: RAGHAV GREGORY Rep #: [id number] : 1950 F 72 From: Neftali Verde PCP: Dr. Mathieu Roland DO Status: REG ER Study: Abdomen/Pelvis without Cont Date of Exam: 08/31 03/22 Exam# [id number] Ordering Dr: Whitney Ott MD STUDY: CT [...] 3:01 EST Reading Location ID and State: [address] [place] [address] Tel , Service support , CC: Dr. Whitney Ott MD; Dr. Mathieu Roland DO Sampler Radioactive Waste: Signed Normal [facility] Basic Metabolic Profile (BMP )on 09-16-2022 BUN/CRE 9.8 RATIO Low 10-20 [facility] Comment on above: Order Comment: 'TROP ' Serial specimen #1, #2 or #3: 1 Performed By: #### L 500.3400, L501.4020, L501.2450, L100.0100, L500.2500 #### [facility] [address] [place], [place], [id number] CA,Total 9.3 mg/dL Normal 8.5-10.1 [facility] Comment on above: Order Comment: 'TROP ' Serial specimen #1, #2 or #3: 1 Performed By: #### L 500.3400, L501.4020, L501.2450, L100.0100, L500.2500 #### [facility] [address] [place], [address] Chloride [Moles/Vol] 105 mmol/L Normal 98-107 [facility] Comment on above: Order Comment: 'TROP ' Serial specimen #1, #2 or #3: 1 Performed By: #### L 500.3400, L501.4020, L501.2450, L100.0100, L500.2500 #### [facility] [address] [place], [address] CO2 [Moles/Vol] 20.0 mmol/L Low 21.0-32.0 [facility] Comment on above: Order Comment: 'TROP ' Serial specimen #1, #2 or #3: 1 Performed By: #### L 500.3400, L501.4020, L501.2450, L100.0100, L500.2500 #### [facility] [address] [place], [address] Creatinine [Mass/Vol] 1.23 mg/dL High 0.55-1.02 [facility] Comment on above: Order Comment: 'TROP ' Serial specimen #1, #2 or #3: 1 Result Comment: The validity of the calculated GFR GFRAA in patients over 70 years has not been determined. Clinical correlation is essential. Performed By: #### L 500.3400, L501.4020, L501.2450, L100.0100, L500.2500 #### [facility] [address] [place], [address] ECRCL 34.65 ml/min Normal [facility] Comment on above: Order Comment: 'TROP ' Serial specimen #1, #2 or #3: 1 Performed By: #### L 500.3400, L501.4020, L501.2450, L100.0100, L500.2500 #### [facility] [address] [place], [address] EST GFR - AA 55 mL/min Low >60 [facility] Comment on above: Order Comment: 'TROP ' Serial specimen #1, #2 or #3: 1 Result Comment: Afri can [place] GFR Calc Performed By: #### L 500.3400, L501.4020, L501.2450, L100.0100, L500.2500 #### [facility] [address] [place], [address] GAP 13 Normal 5-15 [facility] Comment on above: Order Comment: 'TROP ' Serial specimen #1, #2 or #3: 1 Performed By: #### L 500.3400, L501.4020, L501.2450, L100.0100, L500.2500 #### [facility] [address] [place], [address] GFR/1.73 sq M.predicted among non-blacks MDRD (S/P/Bld) [Vol rate/Area] 45 mL/min/{1.73_m2} Low >60 [facility] Comment on above: Order Comment: 'TROP ' Serial specimen #1, #2 or #3: 1 Result Comment: Non- GFR Calc Performed By: #### L 500.3400, L501.4020, L501.2450, L100.0100, L500.2500 #### [facility] [address] [place], [address] Glucose [Mass/Vol] 249 mg/dL High 74-106 [facility] Comment on above: Order Comment: 'TROP ' Serial specimen #1, #2 or #3: 1 Result Comment: Gluc ose result greater than or equal to 200 mg/dL suggests DIABETES MELLITUS per A.D.A. criteria. Performed By: #### L 500.3400, L501.4020, L501.2450, L100.0100, L500.2500 #### [facility] [address] [place], [address] Potassium [Moles/Vol] 5.1 mmol/L Normal 3.5-5.1 [facility] Comment on above: Order Comment: 'TROP ' Serial specimen #1, #2 or #3: 1 Result Comment: Mode rate Hemolysis, Result may be falsely increased. Performed By: #### L 500.3400, L501.4020, L501.2450, L100.0100, L500.2500 #### [facility] [address] [place], [address] Sodium [Moles/Vol] 138 mmol/L Normal 136-145 [facility] Comment on above: Order Comment: 'TROP ' Serial specimen #1, #2 or #3: 1 Performed By: #### L 500.3400, L501.4020, L501.2450, L100.0100, L500.2500 #### [facility] [address] [place], [address] Urea nitrogen [Mass/Vol] 12 mg/dL Normal 7-18 [facility] Comment on above: Order Comment: 'TROP ' Serial specimen #1, #2 or #3: 1 Performed By: #### L 500.3400, L501.4020, L501.2450, L100.0100, L500.2500 #### [facility] [address] [place], [address] Emergency Department Summary on 09-16-2022 Emergency Department Summary [facility] Medical Records Department [address] [place] [address] Emergency Department Summary 09/15/22 MR#: [id number] Acct: [id number] Name: RAGHAV GREGORY Rep #: [id number] : 1950 72 From: Whitney Ott MD [...] in the right side of her abdomen. [facility] Medical History Chronic ulcer of left heel [...] status erica (more content not included)... Normal [facility] L501.4020on 09-16-2022 TROPONIN-I HS 10 pg/mL Normal 3.0-54.0 [facility] Comment on above: Order Comment: 'TROP ' Serial specimen #1, #2 or #3: 1 Result Comment: Suleiman sinha Note: New Test Units and Gender Specific Reference Ranges. For more information see Policy Stat Procedure [place] High Sensitivity Troponin (TNIH) and attachments. Performed By: #### L 500.3400, L501.4020, L501.2450, L100.0100, L500.2500 ####[facility] [address] [place], [address] Lipaseon 09-16-2022 Lipase [Catalytic activity/Vol] 42 U/L Low 73-393 [facility] Comment on above: Order Comment: 'TROP ' Serial specimen #1, #2 or #3: 1 Performed By: #### L 500.3400, L501.4020, L501.2450, L100.0100, L500.2500 #### [facility] [address] [place], [address] Liver Profileon 09-16-2022 Albumin [Mass/Vol] 3.7 g/dL Normal 3.2-5.0 [facility] Comment on above: Order Comment: 'TROP ' Serial specimen #1, #2 or #3: 1 Performed By: #### L 500.3400, L501.4020, L501.2450, L100.0100, L500.2500 #### [facility] [address] [place], [address] ALK P 100 U/L Normal 45-117 [facility] Comment on above: Order Comment: 'TROP ' Serial specimen #1, #2 or #3: 1 Performed By: #### L 500.3400, L501.4020, L501.2450, L100.0100, L500.2500 #### [facility] [address] [place], [address] ALT [Catalytic activity/Vol] 17 U/L Normal 13-56 [facility] Comment on above: Order Comment: 'TROP ' Serial specimen #1, #2 or #3: 1 Performed By: #### L 500.3400, L501.4020, L501.2450, L100.0100, L500.2500 #### [facility] [address] [place], [address] AST [Catalytic activity/Vol] 21 U/L Normal 15-37 [facility] Comment on above: Order Comment: 'TROP ' Serial specimen #1, #2 or #3: 1 Result Comment: Mode rate Hemolysis, Result may be falsely increased. Performed By: #### L 500.3400, L501.4020, L501.2450, L100.0100, L500.2500 #### [facility] [address] [place], [address] Bilirubin [Mass/Vol] 0.60 mg/dL Normal 0.20-1.00 [facility] Comment on above: Order Comment: 'TROP ' Serial specimen #1, #2 or #3: 1 Result Comment: For patients on eltrombopag therapy, use of Dimension [place] TBIL is not recommended. Performed By: #### L 500.3400, L501.4020, L501.2450, L100.0100, L500.2500 #### [facility] [address] [place], [address] Bilirubin.direct [Mass/Vol] 0.07 mg/dL Normal 0.00-0.30 [facility] Comment on above: Order Comment: 'TROP ' Serial specimen #1, #2 or #3: 1 Performed By: #### L 500.3400, L501.4020, L501.2450, L100.0100, L500.2500 #### [facility] [address] [place], [address] Globulin (S) [Mass/Vol] 3.9 g/dL Normal 2.2-4.2 [facility] Comment on above: Order Comment: 'TROP ' Serial specimen #1, #2 or #3: 1 Performed By: #### L 500.3400, L501.4020, L501.2450, L100.0100, L500.2500 #### [facility] [address] [place], [address] T PROT 7.6 g/dL Normal 6.4-8.2 [facility] Comment on above: Order Comment: 'TROP ' Serial specimen #1, #2 or #3: 1 Performed By: #### L 500.3400, L501.4020, [id number], L100.0100, L500.2500 #### [facility] [address] [place], [address] Absolute lymphocyte countOrd ered By: Dr. Ott on 09-15-2022 Lymphocytes Auto (Unsp spec) [#/Vol] 1.07 10*3/uL 0.83-4.51 [facility] Basophil percentageOrdered B y: Dr. Ott on 09-15-2022 Basophils/100 WBC (Bld) 0.4 % 0-1 [facility] Bilirubin [Mass/Vol] 0.60 mg/dL 0.20-1.00 [facility] Comment on above: For patients on eltr ombopag therapy, use of Dimension [place] TBIL is not recommended. Chloride [Moles/Vol] 105 mmol/L 98-107 [facility] Eosinophils/100 WBC (Bld) 1.1 % 0-5 [facility] Glucose [Mass/Vol] 249 mg/dL 74-106 [facility] Comment on above: Glucose result great er than or equal to 200 mg/dLsuggests DIABETES MELLITUS per A.D.A. criteria. Neutrophils (Bld) [#/Vol] 10.2 10*3/uL 2.0-7.7 [facility] Neutrophils/100 WBC (Bld) 84.7 % 47-70 [facility] Potassium [Moles/Vol] 5.1 mmol/L 3.5-5.1 [facility] Comment on above: Moderate Hemolysis, Result may be falsely increased. Protein [Mass/Vol] 7.6 g/dL 6.4-8.2 [facility] Sodium [Moles/Vol] 138 mmol/L 136-145 [facility] WBC (Bld) [#/Vol] 12.0 10*3/uL 4.4-11.0 [facility] Blood erythrocytes count (nu mber/volume)Ordered By: Dr. Ott on 09-15-2022 RBC (Bld) [#/Vol] 6.09 10*6/uL 4.2-5.4 [facility] Blood hemoglobin measurement (mass/volume)Ordered By: Dr. Ott on 09-15-2022 Hemoglobin (Bld) [Mass/Vol] 18.1 g/dL 12.0-15.0 [facility] Comment on above: CRITICAL VALUE VERIF IED. CALLED TO Tesha SHEA RN ER/ [address].RESULTS READ BACK BY SAME. Blood lymphocytes/100 leukoc ytesOrdered By: Dr. Ott on 09-15-2022 Lymphocytes/100 WBC (Bld) 8.9 % 19-41 [facility] Blood monocytes/100 leukocyt esOrdered By: Dr. Ott on 09-15-2022 Monocytes/100 WBC (Bld) 4.3 % 0-10 [facility] Blood platelet mean volumeOr dered By: Dr. Ott on 09-15-2022 Platelet mean volume (Bld) [Entitic vol] 10.6 fL 6.2-12.0 [facility] Determination of erythrocyte mean corpuscular volume (MCV)Ordered By: Dr. Ott on 09-15-2022 MCV (RBC) [Entitic vol] 93.1 fL 81-99 [facility] Direct bilirubinOrdered By: Dr. Ott on 09-15-2022 Bilirubin.direct [Mass/Vol] 0.07 mg/dL 0.00-0.30 [facility] Hematocrit Auto (Bld) [Volum e fraction]Ordered By: Dr. Ott on 09-15-2022 Hematocrit (Bld) [Volume fraction] 56.7 % 37-47 [facility] - Chemistry and C hemistry - challengeOrdered By: Dr. Ott on 09-15-2022 ALP [Catalytic activity/Vol] 100 U/L 45-117 [facility] ALT [Catalytic activity/Vol] 17 U/L 13-56 [facility] CO2 [Moles/Vol] 20.0 mmol/L 21.0-32.0 [facility] Globulin (S) [Mass/Vol] 3.9 g/dL 2.2-4.2 [facility] Lipase [Catalytic activity/Vol] 42 U/L 73-393 [facility] Urea nitrogen/Creatinine [Mass ratio] 9.8 mg/mg 10-20 [facility] Laboratory - Hematology and Cell countsOrdered By: Dr. Ott on 09-15-2022 Erythrocyte distribution width (RBC) [Entitic vol] 44.8 fL 35.1-43.9 [facility] Erythrocyte distribution width (RBC) [Ratio] 13.2 % 11.6-14.6 [facility] Immature granulocytes/100 WBC (Bld) 0.600 % 0.0-0.9 [facility] Comment on above: IG% - Immature Granu locytes (promyelocytes, myelocytes and metamyelocytes) > 1% indicates that a LEFT SHIFT is Present. MCH (RBC) [Entitic mass] 29.7 pg 27.0-32.0 [facility] Nucleated RBC/100 WBC (Bld) [Ratio] 0 % 0-5 [facility] MCHC Auto (RBC) [Mass/Vol]Or dered By: Dr. Ott on 09-15-2022 MCHC (RBC) [Mass/Vol] 31.9 g/dL 32-36 [facility] No Panel InformationOrdered By: Dr. Ott on 09-15-2022 Estimated Creatinine Clearance Calc 34.65 ml/min [facility] Estimated GFR (MDRD) Amer 55 mL/min >60 [facility] Comment on above: GFR Calc Estimated GFR (MDRD) Non-Af Amer 45 mL/min >60 [facility] Comment on above: Non- GFR Calc Troponin I High Sensitivity 10 pg/mL 3.0-54.0 [facility] Comment on above: Please Note: [place] t Units and Gender Specific Reference Ranges. For more information see Policy Stat Procedure [place] High Sensitivity Troponin (TNIH) and attachments. Platelets bldOrdered By: Dr. Ott on 09-15-2022 Platelets (Bld) [#/Vol] 216 10*3/uL 150-450 [facility] Review by pathologistOrdered By: Dr. Ott on 09-15-2022 Pathologist review [place] (Unsp spec) [Interp] Suzanna bhatti [facility] Pathologist review [place] (Unsp spec) [Interp] Reviewed [facility] Comment on above: Previous reported re sult: Suzanna bhatti Edited by: [email or web address] on 09/17/22:0939Neutrophilic leukocytosis.Polycythemia Clinical correlation necessary.Eliezer Johns M.D. 09/17/22 AMENDED REPORT 09/17/22 0939 PATH REV previously reported as: Suzanna bhatti Serum or plasma albumin pavel urement (mass/volume)Ordered By: Dr. Ott on 09-15-2022 Albumin [Mass/Vol] 3.7 g/dL 3.2-5.0 [facility] Serum or plasma calcium pavel urement (mass/volume)Ordered By: Dr. Ott on 09-15-2022 Calcium [Mass/Vol] 9.3 mg/dL 8.5-10.1 [facility] Serum or plasma creatinine m easurement (mass/volume)Ordered By: Dr. Ott on 09-15-2022 Creatinine [Mass/Vol] 1.23 mg/dL 0.55-1.02 [facility] Comment on above: The validity of the calculated GFR & GFRAA in patients over 70 years has not been determined. Clinical correlation is essential. Serum or plasma urea nitroge n measurement (mass/volume)Ordered By: Dr. Ott on 09-15-2022 Urea nitrogen [Mass/Vol] 12 mg/dL 7-18 [facility] Thin prep Papanicolaou smear with manual screeningOrdered By: Dr. Ott on 09-15-2022 Thin prep Papanicolaou smear with manual screening 21 U/L 15-37 [facility] Comment on above: Moderate Hemolysis, Result may be falsely increased. Thin prep Papanicolaou smear with manual screening 13 01-12 [facility] LABORATORYOrdered By: Favian Contreras on [...] Auto (Unsp spec) [#/Vol] 1.62 10*3/uL 0.83-4.51 [facility] Work Phone: Basophil percentageon 2021 Basophils/100 WBC (Bld) 0.5 % 0-1 [facility] Work Phone: [phone] Chloride [Moles/Vol] 100 mmol/L 98-107 [facility] Work Phone: [phone] Eosinophils/100 WBC (Bld) 1.7 % 0-5 [facility] Work Phone: [phone] Glucose [Mass/Vol] 174 mg/dL 74-106 [facility] Work Phone: Comment on above: Fasting Glucose resu lt greater than or equal to 126 mg/dL suggests DIABETES MELLITUS per A.D.A. criteria. Neutrophils (Bld) [#/Vol] 5.8 10*3/uL 2.0-7.7 [facility] Work Phone: Neutrophils/100 WBC (Bld) 70.5 % 47-70 [facility] Work Phone: Potassium [Moles/Vol] 4.1 mmol/L 3.5-5.1 [facility] Work Phone: Sodium [Moles/Vol] 136 mmol/L 136-145 [facility] Work Phone: WBC (Bld) [#/Vol] 8.2 10*3/uL 4.4-11.0 [facility] Work Phone: Blood erythrocytes count (nu mber/volume)on 01-18-2022 RBC (Bld) [#/Vol] 4.01 10*6/uL 4.2-5.4 [facility] Work Phone: Blood hemoglobin measurement (mass/volume)on 01-18-2022 Hemoglobin (Bld) [Mass/Vol] 11.8 g/dL 12.0-15.0 [facility] Work Phone: Blood lymphocytes/100 leukoc yteson 01-18-2022 Lymphocytes/100 WBC (Bld) 19.7 % 19-41 [facility] Work Phone: Blood monocytes/100 leukocyt eson 01-18-2022 Monocytes/100 WBC (Bld) 6.4 % 0-10 [facility] Work Phone: Blood platelet mean volumeon 01-18-2022 Platelet mean volume (Bld) [Entitic vol] 10.1 fL 6.2-12.0 [facility] Work Phone: Determination of erythrocyte mean corpuscular volume (MCV)on 01-18-2022 MCV (RBC) [Entitic vol] 92.5 fL 81-99 [facility] Work Phone: Glucose Glucometer (BldC) [M ass/Vol]on 01-18-2022 Glucose [Mass/Vol] 243 mg/dL 74-106 [facility] Work Phone: Comment on above: MANAGEMENT OF PATIEN T CARE PER NURSING PROTOCOL Hematocrit Auto (Bld) [Volum e fraction]on 01-18-2022 Hematocrit (Bld) [Volume fraction] 37.1 % 37-47 [facility] Work Phone: Laboratory - Chemistry and C hemistry - challengeon 01-18-2022 CO2 [Moles/Vol] 32.0 mmol/L 21.0-32.0 [facility] Work Phone: Urea nitrogen/Creatinine [Mass ratio] 23.8 mg/mg 10-20 [facility] Work Phone: Laboratory - Hematology and Cell countson 01-18-2022 Erythrocyte distribution width (RBC) [Entitic vol] 42.2 fL 35.1-43.9 [facility] Work Phone: Erythrocyte distribution width (RBC) [Ratio] 12.5 % 11.6-14.6 [facility] Work Phone: Immature granulocytes/100 WBC (Bld) 1.200 % 0.0-0.9 [facility] Work Phone: Comment on above: IG% - Immature Granu locytes (promyelocytes, myelocytes and metamyelocytes) > 1% indicates that a LEFT SHIFT is Present. MCH (RBC) [Entitic mass] 29.4 pg 27.0-32.0 [facility] Work Phone: Nucleated RBC/100 WBC (Bld) [Ratio] 0 % 0-5 [facility] Work Phone: MCHC Auto (RBC) [Mass/Vol]on 01-18-2022 MCHC (RBC) [Mass/Vol] 31.8 g/dL 32-36 [facility] Work Phone: No Panel Informationon 01-18 Estimated Creatinine Clearance Calc 43.27 ml/min [facility] Work Phone: Estimated GFR (MDRD) Amer 96 mL/min >60 [facility] Work Phone: Comment on above: GFR Calc Estimated GFR (MDRD) Non-Af Amer 80 mL/min >60 [facility] Work Phone: Comment on above: Non- GFR Calc Platelets bldon 01-18-2022 Platelets (Bld) [#/Vol] 345 10*3/uL 150-450 [facility] Work Phone: Serum or plasma calcium pavel urement (mass/volume)on 01-18-2022 Calcium [Mass/Vol] 9.6 mg/dL 8.5-10.1 [facility] Work Phone: Serum or plasma creatinine m easurement (mass/volume)on 01-18-2022 Creatinine [Mass/Vol] 0.76 mg/dL 0.55-1.02 [facility] Work Phone: Comment on above: The validity of the calculated GFR & GFRAA in patients over 70 years has not been determined. Clinical correlation is essential. Serum or plasma urea nitroge n measurement (mass/volume)on 01-18-2022 Urea nitrogen [Mass/Vol] 18 mg/dL 7-18 [facility] Work Phone: Thin prep Papanicolaou smear with manual screeningon 01-18-2022 Thin prep Papanicolaou smear with manual screening 4 5-15 [facility] Work Phone: Bacteria identified Anaer cx Nom (Unsp spec)on 01-16-2022 Anaerobic Culture Anaerobic cocci [facility] Work Phone: Bacteria identified Cx Nom ( Wound)on 01-16-2022 Wound Culture Staphylococcus aureus [facility] Work Phone: Wound Culture Positive [facility] Work Phone: Gram stain for investigation of transfusion reactionon 01-16-2022 Microscopic observation Gram stain Nom (Unsp spec) [facility] Work Phone: No Panel Informationon 01-16 Thyroid Stimulating Hormone (TSH) 1.90 uIU/mL 0.358-3.74 [facility] Work Phone: Vancomycin troughon 01-17-20 Vancomycin trough [Mass/Vol] 8.1 ug/mL 5.0-15.0 [facility] Work Phone: Comment on above: VANCOMYCIN STANDARED DRUG THERAPY TROUGH LEVEL: 5.0 - 15.0 mg/L VANCOMYCIN HIGH INTENSITY THERAPY TROUGH LEVEL: 15.0 - 20.0 mg/L High Intensity therapy recommended for serious lifethreatening infections include:- Qdmqsqcsyn-Ykkfjqzcwlkq-Khtyebnyy (Ventilator/Healtcare Associated)-Sepsis PLEASE CONTACT PHARMACY SERVICES (#[phone]) FOR INTERPRETATIONOF RESULTS. Absolute lymphocyte counton 01-14-2022 Lymphocytes Auto (Unsp spec) [#/Vol] 1.55 10*3/uL 0.83-4.51 [facility] Work Phone: Basophil percentageon 2021 Lactate [Moles/Vol] 1.2 mmol/L 0.4-2.0 [facility] Work Phone: Basophils/100 WBC (Bld) 0.3 % 0-1 [facility] Work Phone: Bilirubin [Mass/Vol] 0.20 mg/dL 0.20-1.00 [facility] Work Phone: Comment on above: For patients on eltr ombopag therapy, use of Dimension [place] TBIL is not recommended. Chloride [Moles/Vol] 99 mmol/L 98-107 [facility] Work Phone: Eosinophils/100 WBC (Bld) 0.8 % 0-5 [facility] Work Phone: Glucose [Mass/Vol] 49 mg/dL 74-106 [facility] Work Phone: Comment on above: Glucose result less than 50 mg/dL suggests HYPOGLYCEMIA. Lactate [Moles/Vol] 2.8 mmol/L 0.4-2.0 [facility] Work Phone: Comment on above: Critical Result(s) C alled at: 20:22:03 01/14/2022 by: Virginie persaud [facility]. Results read back by same. Neutrophils (Bld) [#/Vol] 8.3 10*3/uL 2.0-7.7 [facility] Work Phone: Neutrophils/100 WBC (Bld) 75.0 % 47-70 [facility] Work Phone: Potassium [Moles/Vol] 3.8 mmol/L 3.5-5.1 [facility] Work Phone: Protein [Mass/Vol] 6.9 g/dL 6.4-8.2 [facility] Work Phone: Sodium [Moles/Vol] 136 mmol/L 136-145 [facility] Work Phone: WBC (Bld) [#/Vol] 11.0 10*3/uL 4.4-11.0 [facility] Work Phone: Blood erythrocytes count (nu mber/volume)on 01-14-2022 RBC (Bld) [#/Vol] 3.73 10*6/uL 4.2-5.4 [facility] Work Phone: Blood hemoglobin measurement (mass/volume)on 01-14-2022 Hemoglobin (Bld) [Mass/Vol] 11.2 g/dL 12.0-15.0 [facility] Work Phone: Blood lymphocytes/100 leukoc yteson 01-14-2022 Lymphocytes/100 WBC (Bld) 14.1 % 19-41 [facility] Work Phone: Blood monocytes/100 leukocyt eson 01-14-2022 Monocytes/100 WBC (Bld) 8.3 % 0-10 [facility] Work Phone: Blood platelet mean volumeon 01-14-2022 Platelet mean volume (Bld) [Entitic vol] 10.8 fL 6.2-12.0 [facility] Work Phone: Determination of erythrocyte mean corpuscular volume (MCV)on 01-14-2022 MCV (RBC) [Entitic vol] 91.4 fL 81-99 [facility] Work Phone: Hematocrit Auto (Bld) [Volum e fraction]on 01-14-2022 Hematocrit (Bld) [Volume fraction] 34.1 % 37-47 [facility] Work Phone: INR in Blood by Coagulation assayon 01-14-2022 INR Coag (Bld) [Relative time] 1.2 {INR} [facility] Work Phone: Laboratory - Chemistry and C hemistry - challengeon 01-14-2022 ALP [Catalytic activity/Vol] 52 U/L 45-117 [facility] Work Phone: ALT [Catalytic activity/Vol] 23 U/L 13-56 [facility] Work Phone: CO2 [Moles/Vol] 29.0 mmol/L 21.0-32.0 [facility] Work Phone: [phone] Globulin (S) [Mass/Vol] 4.4 g/dL 2.2-4.2 [facility] Work Phone: Urea nitrogen/Creatinine [Mass ratio] 17.1 mg/mg 10-20 [facility] Work Phone: Laboratory - Coagulationon 0 01-14-2022 aPTT Coag (Bld) [Time] 35.5 s 24.1-36.2 [facility] Work Phone: PT Coag (PPP) [Time] 15.0 s 11.7-14.[address] [facility] Work Phone: Laboratory - Hematology and Cell countson 01-14-2022 Erythrocyte distribution width (RBC) [Entitic vol] 41.9 fL 35.1-43.9 [facility] Work Phone: Erythrocyte distribution width (RBC) [Ratio] 12.5 % 11.6-14.6 [facility] Work Phone: Immature granulocytes/100 WBC (Bld) 1.500 % 0.0-0.9 [facility] Work Phone: Comment on above: IG% - Immature Granu locytes (promyelocytes, myelocytes and metamyelocytes) > 1% indicates that a LEFT SHIFT is Present. MCH (RBC) [Entitic mass] 30.0 pg 27.0-32.0 [facility] Work Phone: Nucleated RBC/100 WBC (Bld) [Ratio] 0 % 0-5 [facility] Work Phone: Laboratory - Microbiology an d Antimicrobial susceptibilityon 01-14-2022 Bacteria identified Cx Nom (Bld) No growth in 5 days. [facility] Work Phone: MCHC Auto (RBC) [Mass/Vol]on 01-14-2022 MCHC (RBC) [Mass/Vol] 32.8 g/dL 32-36 [facility] Work Phone: No Panel Informationon 01-14 Estimated Creatinine Clearance Calc 38.53 ml/min [facility] Work Phone: Estimated GFR (MDRD) Amer 58 mL/min >60 [facility] Work Phone: Comment on above: GFR Calc Estimated GFR (MDRD) Non-Af Amer 48 mL/min >60 [facility] Work Phone: Comment on above: Non- GFR Calc Platelets bldon 01-14-2022 Platelets (Bld) [#/Vol] 318 10*3/uL 150-450 [facility] Work Phone: Serum or plasma albumin pavel urement (mass/volume)on 01-14-2022 Albumin [Mass/Vol] 2.5 g/dL 3.2-5.0 [facility] Work Phone: Serum or plasma albumin/glob ulin mass ratioon 01-14-2022 Albumin/Globulin [Mass ratio] 0.6 {ratio} 0.9-2.4 [facility] Work Phone: Serum or plasma calcium pavel urement (mass/volume)on 01-14-2022 Calcium [Mass/Vol] 8.9 mg/dL 8.5-10.1 [facility] Work Phone: Serum or plasma creatinine m easurement (mass/volume)on 01-14-2022 Creatinine [Mass/Vol] 1.17 mg/dL 0.55-1.02 [facility] Work Phone: Comment on above: The validity of the calculated GFR & GFRAA in patients over 70 years has not been determined. Clinical correlation is essential. Serum or plasma urea nitroge n measurement (mass/volume)on 01-14-2022 Urea nitrogen [Mass/Vol] 20 mg/dL 7-18 [facility] Work Phone: Thin prep Papanicolaou smear with manual screeningon 01-14-2022 Thin prep Papanicolaou smear with manual screening 31 U/L 15-37 [facility] Work Phone: Thin prep Papanicolaou smear with manual screening 8 5-15 [facility] Work Phone: Absolute lymphocyte counton 01-13-2022 Lymphocytes Auto (Unsp spec) [#/Vol] 0.98 10*3/uL 0.83-4.51 [facility] Work Phone: Basophil percentageon 2021 Basophils/100 WBC (Bld) 0.3 % 0-1 [facility] Work Phone: Bilirubin [Mass/Vol] 0.40 mg/dL 0.20-1.00 [facility] Work Phone: Comment on above: For patients on eltr ombopag therapy, use of Dimension [place] TBIL is not recommended. Chloride [Moles/Vol] 99 mmol/L 98-107 [facility] Work Phone: Eosinophils/100 WBC (Bld) 0.6 % 0-5 [facility] Work Phone: [phone] Glucose [Mass/Vol] 142 mg/dL 74-106 [facility] Work Phone: [phone] Comment on above: Fasting Glucose resu lt greater than or equal to 126 mg/dL suggests DIABETES MELLITUS per A.D.A. criteria. Neutrophils (Bld) [#/Vol] 7.7 10*3/uL 2.0-7.7 [facility] Work Phone: [phone] Neutrophils/100 WBC (Bld) 81.1 % 47-70 [facility] Work Phone: [phone] Potassium [Moles/Vol] 4.1 mmol/L 3.5-5.1 [facility] Work Phone: [phone] Protein [Mass/Vol] 6.5 g/dL 6.4-8.2 [facility] Work Phone: [phone] Sodium [Moles/Vol] 132 mmol/L 136-145 [facility] Work Phone: [phone] WBC (Bld) [#/Vol] 9.5 10*3/uL 4.4-11.0 [facility] Work Phone: Blood erythrocytes count (nu mber/volume)on 01-13-2022 RBC (Bld) [#/Vol] 3.63 10*6/uL 4.2-5.4 [facility] Work Phone: Blood hemoglobin measurement (mass/volume)on 01-13-2022 Hemoglobin (Bld) [Mass/Vol] 10.9 g/dL 12.0-15.0 [facility] Work Phone: Blood lymphocytes/100 leukoc yteson 01-13-2022 Lymphocytes/100 WBC (Bld) 10.3 % 19-41 [facility] Work Phone: Blood monocytes/100 leukocyt eson 01-13-2022 Monocytes/100 WBC (Bld) 7.1 % 0-10 [facility] Work Phone: Blood platelet mean volumeon 01-13-2022 Platelet mean volume (Bld) [Entitic vol] 11.3 fL 6.2-12.0 [facility] Work Phone: Determination of erythrocyte mean corpuscular volume (MCV)on 01-13-2022 MCV (RBC) [Entitic vol] 90.4 fL 81-99 [facility] Work Phone: Erythrocyte sedimentation ra salud 01-13-2022 ESR (Bld) [Velocity] 67 mm[facility]h 0[facility] Work Phone: Hematocrit Auto (Bld) [Volum e fraction]on 01-13-2022 Hematocrit (Bld) [Volume fraction] 32.8 % 37-47 [facility] Work Phone: Laboratory - Chemistry and C hemistry - challengeon 01-13-2022 ALP [Catalytic activity/Vol] 46 U/L 45-117 [facility] Work Phone: ALT [Catalytic activity/Vol] 22 U/L 13-56 [facility] Work Phone: CO2 [Moles/Vol] 27.0 mmol/L 21.0-32.0 [facility] Work Phone: Globulin (S) [Mass/Vol] 4.1 g/dL 2.2-4.2 [facility] Work Phone: Urea nitrogen/Creatinine [Mass ratio] 20.4 mg/mg 10-20 [facility] Work Phone: Laboratory - Hematology and Cell countson 01-13-2022 Erythrocyte distribution width (RBC) [Entitic vol] 41.1 fL 35.1-43.9 [facility] Work Phone: Erythrocyte distribution width (RBC) [Ratio] 12.4 % 11.6-14.6 [facility] Work Phone: Immature granulocytes/100 WBC (Bld) 0.600 % 0.0-0.9 [facility] Work Phone: Comment on above: IG% - Immature Granu locytes (promyelocytes, myelocytes and metamyelocytes) > 1% indicates that a LEFT SHIFT is Present. MCH (RBC) [Entitic mass] 30.0 pg 27.0-32.0 [facility] Work Phone: Nucleated RBC/100 WBC (Bld) [Ratio] 0 % 0-5 [facility] Work Phone: MCHC Auto (RBC) [Mass/Vol]on 01-13-2022 MCHC (RBC) [Mass/Vol] 33.2 g/dL 32-36 [facility] Work Phone: No Panel Informationon 01-13 Estimated Creatinine Clearance Calc 39.90 ml/min [facility] Work Phone: Estimated GFR (MDRD) Amer 61 mL/min >60 [facility] Work Phone: Comment on above: GFR Calc Estimated GFR (MDRD) Non-Af Amer 50 mL/min >60 [facility] Work Phone: Comment on above: Non- GFR Calc Platelets bldon 01-13-2022 Platelets (Bld) [#/Vol] 240 10*3/uL 150-450 [facility] Work Phone: Serum or plasma C reactive p rotein measurement (mass/volume)on 01-13-2022 CRP [Mass/Vol] 162.00 mg/L 0.0-3.0 [facility] Work Phone: Comment on above: C-Reactive Protein ( CRP) provides useful information for thediagnosis, therapy and monitoring of inflammatory processesand associated diseases. For the evaluation of Relative Riskfor Cardiovascular Disease, a High Sensitivity CRP (HSCRP)should be ordered. Serum or plasma albumin pavel urement (mass/volume)on 01-13-2022 Albumin [Mass/Vol] 2.4 g/dL 3.2-5.0 [facility] Work Phone: Serum or plasma albumin/glob ulin mass ratioon 01-13-2022 Albumin/Globulin [Mass ratio] 0.6 {ratio} 0.9-2.4 [facility] Work Phone: Serum or plasma calcium pavel urement (mass/volume)on 01-13-2022 Calcium [Mass/Vol] 8.7 mg/dL 8.5-10.1 [facility] Work Phone: Serum or plasma creatinine m easurement (mass/volume)on 01-13-2022 Creatinine [Mass/Vol] 1.13 mg/dL 0.55-1.02 [facility] Work Phone: Comment on above: The validity of the calculated GFR & GFRAA in patients over 70 years has not been determined. Clinical correlation is essential. Serum or plasma urea nitroge n measurement (mass/volume)on 01-13-2022 Urea nitrogen [Mass/Vol] 23 mg/dL 7-18 [facility] Work Phone: Thin prep Papanicolaou smear with manual screeningon 01-13-2022 Thin prep Papanicolaou smear with manual screening 36 U/L 15-37 [facility] Work Phone: Thin prep Papanicolaou smear with manual screening 6 5-15 [facility] Work Phone: No Panel Informationon 01-10 Culture Urine 50,000 - 100,000 cfu/ml Multiple bacterial morphotypes present. Probable Contamination. Suggest recollection if clinically indicated. [facility] Bacteria identified Anaer cx Nom (Unsp spec)on 12-26-2021 Anaerobic microbial culture No anaerobic bacteria isolated. [facility] Work Phone: Bacteria identified Cx Nom ( Wound)on 12-26-2021 Wound Culture Staphylococcus lugdunensis [facility] Work Phone: Wound Culture Staphylococcus epidermidis [facility] Work Phone: Gram stain for investigation of transfusion reactionon 12-26-2021 Microscopic observation Gram stain Nom (Unsp spec) [facility] Work Phone: LABORATORYOrdered By: Favian [...] Auto (Unsp spec) [#/Vol] 1.62 10*3/uL 0.83-4.51 [facility] Work Phone: Basophil percentageon 2021 Basophils/100 WBC (Bld) 0.6 % 0-1 [facility] Work Phone: Bilirubin [Mass/Vol] 0.30 mg/dL 0.20-1.00 [facility] Work Phone: Comment on above: For patients on eltr ombopag therapy, use of Dimension [place] TBIL is not recommended. Chloride [Moles/Vol] 85 mmol/L 98-107 [facility] Work Phone: Eosinophils/100 WBC (Bld) 1.0 % 0-5 [facility] Work Phone: Glucose [Mass/Vol] 165 mg/dL 74-106 [facility] Work Phone: Comment on above: Fasting Glucose resu lt greater than or equal to 126 mg/dL suggests DIABETES MELLITUS per A.D.A. criteria. Neutrophils (Bld) [#/Vol] 4.4 10*3/uL 2.0-7.7 [facility] Work Phone: Neutrophils/100 WBC (Bld) 65.4 % 47-70 [facility] Work Phone: Potassium [Moles/Vol] 3.3 mmol/L 3.5-5.1 [facility] Work Phone: Protein [Mass/Vol] 7.3 g/dL 6.4-8.2 [facility] Work Phone: Sodium [Moles/Vol] 127 mmol/L 136-145 [facility] Work Phone: WBC (Bld) [#/Vol] 6.8 10*3/uL 4.4-11.0 [facility] Work Phone: Blood erythrocytes count (nu mber/volume)on 11-20-2021 RBC (Bld) [#/Vol] 4.81 10*6/uL 4.2-5.4 [facility] Work Phone: Blood hemoglobin measurement (mass/volume)on 11-20-2021 Hemoglobin (Bld) [Mass/Vol] 14.4 g/dL 12.0-15.0 [facility] Work Phone: Blood lymphocytes/100 leukoc yteson 11-20-2021 Lymphocytes/100 WBC (Bld) 24.0 % 19-41 [facility] Work Phone: Blood monocytes/100 leukocyt eson 11-20-2021 Monocytes/100 WBC (Bld) 8.9 % 0-10 [facility] Work Phone: Blood platelet mean volumeon 11-20-2021 Platelet mean volume (Bld) [Entitic vol] 9.6 fL 6.2-12.0 [facility] Work Phone: Determination of erythrocyte mean corpuscular volume (MCV)on 11-20-2021 MCV (RBC) [Entitic vol] 82.5 fL 81-99 [facility] Work Phone: Erythrocyte sedimentation ra salud 11-20-2021 ESR (Bld) [Velocity] 30 mm/h 0-[facility] Work [facility]: Hematocrit Auto (Bld) [Volum e fraction]on 11-20-2021 Hematocrit (Bld) [Volume fraction] 39.7 % 37-47 [facility] Work Phone: Laboratory - Chemistry and C hemistry - challengeon 11-20-2021 ALP [Catalytic activity/Vol] 75 U/L 45-117 [facility] Work Phone: ALT [Catalytic activity/Vol] 15 U/L 13-56 [facility] Work Phone: CO2 [Moles/Vol] 36.0 mmol/L 21.0-32.0 [facility] Work Phone: Globulin (S) [Mass/Vol] 3.6 g/dL 2.2-4.2 [facility] Work Phone: Urea nitrogen/Creatinine [Mass ratio] 20.7 mg/mg 10-20 [facility] Work Phone: Laboratory - Hematology and Cell countson 11-20-2021 Erythrocyte distribution width (RBC) [Entitic vol] 34.5 fL 35.1-43.9 [facility] Work Phone: Erythrocyte distribution width (RBC) [Ratio] 11.4 % 11.6-14.6 [facility] Work Phone: Immature granulocytes/100 WBC (Bld) 0.100 % 0.0-0.9 [facility] Work Phone: Comment on above: IG% - Immature Granu locytes (promyelocytes, myelocytes and metamyelocytes) > 1% indicates that a LEFT SHIFT is Present. MCH (RBC) [Entitic mass] 29.9 pg 27.0-32.0 [facility] Work Phone: Nucleated RBC/100 WBC (Bld) [Ratio] 0 % 0-5 [facility] Work Phone: MCHC Auto (RBC) [Mass/Vol]on 11-20-2021 MCHC (RBC) [Mass/Vol] 36.3 g/dL 32-36 [facility] Work Phone: No Panel Informationon 11-20 Estimated Creatinine Clearance Calc 54.98 ml/min [facility] Work Phone: Estimated GFR (MDRD) Amer 87 mL/min >60 [facility] Work Phone: Comment on above: GFR Calc Estimated GFR (MDRD) Non-Af Amer 72 mL/min >60 [facility] Work Phone: Comment on above: Non- GFR Calc Platelets bldon 11-20-2021 Platelets (Bld) [#/Vol] 231 10*3/uL 150-450 [facility] Work Phone: Serum or plasma C reactive p rotein measurement (mass/volume)on 11-20-2021 CRP [Mass/Vol] 5.93 mg/L 0.0-3.0 [facility] Work Phone: Comment on above: C-Reactive Protein ( CRP) provides useful information for thediagnosis, therapy and monitoring of inflammatory processesand associated diseases. For the evaluation of Relative Riskfor Cardiovascular Disease, a High Sensitivity CRP (HSCRP)should be ordered. Serum or plasma albumin pavel urement (mass/volume)on 11-20-2021 Albumin [Mass/Vol] 3.7 g/dL 3.2-5.0 [facility] Work Phone: Serum or plasma albumin/glob ulin mass ratioon 11-20-2021 Albumin/Globulin [Mass ratio] 1.0 {ratio} 0.9-2.4 [facility] Work Phone: Serum or plasma calcium pavel urement (mass/volume)on 11-20-2021 Calcium [Mass/Vol] 9.4 mg/dL 8.5-10.1 [facility] Work Phone: Serum or plasma creatinine m easurement (mass/volume)on 11-20-2021 Creatinine [Mass/Vol] 0.82 mg/dL 0.55-1.02 [facility] Work Phone: Comment on above: The validity of the calculated GFR & GFRAA in patients over 70 years has not been determined. Clinical correlation is essential. Serum or plasma transthyreti n measurement (mass/volume)on 11-20-2021 Prealbumin [Mass/Vol] 20.3 mg/dL 20.0-40.0 [facility] Work Phone: Serum or plasma urea nitroge n measurement (mass/volume)on 11-20-2021 Urea nitrogen [Mass/Vol] 17 mg/dL 7-18 [facility] Work Phone: Thin prep Papanicolaou smear with manual screeningon 11-20-2021 Thin prep Papanicolaou smear with manual screening 15 U/L 15-37 [facility] Work Phone: Thin prep Papanicolaou smear with manual screening 6 5-15 [facility] Work Phone: Whole blood hemoglobin A1c/t otal hemoglobin ratio (mass fraction)on 11-20-2021 HbA1c (Bld) [Mass fraction] 7.7 % 3.8-5.6 [facility] Work Phone: Comment on above: Normal < 5.7 % Predi abetic 5.7 - 6.4 % Diabetic >or= 6.5 % Please note range changes. Bacteria identified Anaer cx Nom (Unsp spec)on 11-07-2021 Anaerobic microbial culture No anaerobic bacteria isolated. [facility] Work Phone: Bacteria identified Cx Nom ( Wound)on 11-07-2021 Wound Culture Staphylococcus epidermidis [facility] Work Phone: Wound Culture Staphylococcus auricularis [facility] Work Phone: Gram stain for investigation of transfusion reactionon 11-07-2021 Microscopic observation Gram stain Nom (Unsp spec) [facility] Work Phone: LABORATORYOrdered By: Donte [...] Anaerobic microbial culture No anaerobic bacteria isolated. [facility] Work Phone: Bacteria identified Cx Nom ( Wound)on 08-08-2021 Wound Culture Staphylococcus epidermidis [facility] Work Phone: Gram stain for investigation of transfusion reactionon 08-08-2021 Microscopic observation Gram stain Nom (Unsp spec) [facility] Work Phone: LABORATORYOrdered By: Laurie Romero on [...] 09-16-2022 04:10-0500 Diastolic blood pressure 89 mm[Hg] [facility] 09-16-2022 04:10-0500 Heart rate 83 /min [facility] 09-16-2022 04:10-0500 Respiratory rate 16 /min [facility] 09-16-2022 04:10-0500 SaO2% (BldA) [Mass fraction] 99 % [facility] 09-16-2022 04:10-0500 Systolic blood pressure 154 mm[Hg] [facility] 09-15-2022 23:18-0500 Body height 162.56 cm [facility] 09-15-2022 23:18-0500 Body mass index (BMI) [Ratio] 30.5 kg/m2 [facility] 09-15-2022 23:18-0500 Body temperature 97 [degF] [facility] 09-15-2022 23:18-0500 Body weight 80.73 kg [facility] 01-22-2022 15:45-0400 Body mass index (BMI) [Ratio] 28.6 kg/m2 Dr. Mathieu Roland Work Phone: [facility] Work Phone: 01-22-2022 15:45-0400 Body temperature 97.9 [degF] Dr. Mathieu Roland Work Phone: [facility] Work Phone: 01-22-2022 15:45-0400 Diastolic blood pressure 62 mm[Hg] Dr. Mathieu Roland Work Phone: [facility] Work Phone: 01-22-2022 15:45-0400 Heart rate 77 /min Dr. Mathieu Roland Work Phone: [facility] Work Phone: 01-22-2022 15:45-0400 Systolic blood pressure 134 mm[Hg] Dr. Mathieu Roland Work Phone: [facility] Work Phone: 01-18-2022 15:05-0400 Body temperature 98.1 [degF] Dr. Mathieu Roland Work Phone: [facility] Work Phone: 01-18-2022 15:05-0400 Diastolic blood pressure 67 mm[Hg] Dr. Mathieu Roland Work Phone: [facility] Work Phone: 01-18-2022 15:05-0400 Heart rate 99 /min Dr. Mathieu Roland Work Phone: [facility] Work Phone: 01-18-2022 15:05-0400 Respiratory rate 18 /min Dr. Mathieu Roland Work Phone: [facility] Work Phone: 01-18-2022 15:05-0400 SaO2% (BldA) [Mass fraction] 96 % Dr. Mathieu Roland Work Phone: [facility] Work Phone: 01-18-2022 15:05-0400 Systolic blood pressure 126 mm[Hg] Dr. Mathieu Roland Work Phone: [facility] Work Phone: 01-16-2022 13:09-0400 Body height [address] Mathieu Roland Work Phone: [facility] Work Phone: 01-16-2022 13:09-0400 Body weight 89.[address] Mathieu Roland Work Phone: [facility] Work Phone: 01-16-2022 10:26-0400 Body mass index (BMI) [Ratio] 32.9 kg/m2 Dr. Mathieu Roland Work Phone: [facility] Work Phone: 01-14-2022 22:07-0400 Body temperature 98.6 [degF] Dr. Mathieu Roland Work Phone: [facility] Work Phone: 01-14-2022 22:07-0400 Diastolic blood pressure 67 mm[Hg] Dr. Mathieu Roland Work Phone: [facility] Work Phone: 01-14-2022 22:07-0400 Heart rate 71 /min Dr. Mathieu Roland Work Phone: [facility] Work Phone: 01-14-2022 22:07-0400 Respiratory rate 17 /min Dr. Mathieu Roland Work Phone: [facility] Work Phone: 01-14-2022 22:07-0400 SaO2% (BldA) [Mass fraction] 96 % Dr. Mathieu Roland Work Phone: [facility] Work Phone: 01-14-2022 22:07-0400 Systolic blood pressure 120 mm[Hg] Dr. Mathieu Roland Work Phone: [facility] Work Phone: 01-14-2022 17:40-0400 Body height 165.[address] Mathieu Roland Work Phone: [facility] Work Phone: 01-14-2022 17:40-0400 Body mass index (BMI) [Ratio] 29.1 kg/m2 Dr. Mathieu Roland Work Phone: [facility] Work Phone: 01-14-2022 17:40-0400 Body weight 79.[address] Mathieu Roland Work Phone: [facility] Work Phone: 01-14-2022 16:59-0400 Body temperature 99.14 [degF] [facility] [employer] [facility] 01-14-2022 16:59-0400 Diastolic blood pressure 63 mm[Hg] [facility] [employer] [facility] 01-14-2022 16:59-0400 Heart rate 71 /min IVELISSEKARIME [facility] [employer] [facility] 01-14-2022 16:59-0400 Respiratory rate 16 /min IVELISSE KAUR DO [facility] 01-14-2022 16:59-0400 Systolic blood pressure 99 mm[Hg] IVELISSE KAUR DO [facility] 01-08-2022 15:46-0400 Body mass index (BMI) [Ratio] 28.6 kg/m2 Dr. Mathieu Roland Work Phone: [facility] Work Phone: 01-08-2022 15:46-0400 Body temperature 97.2 [degF] Dr. Mathieu Roland Work Phone: [facility] Work Phone: 12-29-2021 00:21-0400 Body weight 78.[address] Mathieu Roland Work Phone: [facility] Work Phone: 12-29-2021 00:21-0400 Diastolic blood pressure 70 mm[Hg] Dr. Mathieu Roland Work Phone: [facility] Work Phone: 12-29-2021 00:21-0400 Heart rate 68 /min Dr. Mathieu Roland Work Phone: [facility] Work Phone: 12-29-2021 00:21-0400 Respiratory rate 18 /min Dr. Mathieu Roland Work Phone: [facility] Work Phone: 12-29-2021 00:21-0400 Systolic blood pressure 172 mm[Hg] Dr. Mathieu Roland Work Phone: [facility] Work Phone: 12-26-2021 15:06-0400 Body mass index (BMI) [Ratio] 28.6 kg/m2 Dr. Mathieu Roland Work Phone: [facility] Work Phone: 12-26-2021 15:06-0400 Body temperature 97.8 [degF] Dr. Mathieu Roland Work Phone: [facility] Work Phone: 12-26-2021 15:06-0400 Diastolic blood pressure 70 mm[Hg] Dr. Mathieu Roland Work Phone: [facility] Work Phone: 12-26-2021 15:06-0400 Heart rate 68 /min Dr. Mathieu Roland Work Phone: [facility] Work Phone: 12-26-2021 15:06-0400 Systolic blood pressure 172 mm[Hg] Dr. Mathieu Roland Work Phone: [facility] Work Phone: 12-19-2021 14:48-0400 Respiratory rate 18 /min Dr. Mathieu Rloand Work Phone: [facility] Work Phone: 11-29-2021 00:20-0400 Body weight 78.[address] Mathieu Roland Work Phone: [facility] Work Phone: 11-28-2021 15:18-0400 Body mass index (BMI) [Ratio] 28.6 kg/m2 Dr. Mathieu Roland Work Phone: [facility] Work Phone: 11-28-2021 15:18-0400 Body temperature 98 [degF] Dr. Mathieu Roland Work Phone: [facility] Work Phone: 11-28-2021 15:18-0400 Diastolic blood pressure 69 mm[Hg] Dr. Mathieu Roland Work Phone: [facility] Work Phone: 11-28-2021 15:18-0400 Heart rate 92 /min Dr. Mathieu Roland Work Phone: [facility] Work Phone: 11-28-2021 15:18-0400 Respiratory rate 18 /min Dr. Mathieu Roland Work Phone: [facility] Work Phone: 11-28-2021 15:18-0400 Systolic blood pressure 144 mm[Hg] Dr. Mathieu Roland Work Phone: [facility] Work Phone: 11-14-2021 15:05-0400 Body mass index (BMI) [Ratio] 28.6 kg/m2 Dr. Mathieu Roland Work Phone: [facility] Work Phone: 11-14-2021 15:05-0400 Body temperature 97.9 [degF] Dr. Mathieu Roland Work Phone: [facility] Work Phone: 11-14-2021 15:05-0400 Diastolic blood pressure 56 mm[Hg] Dr. Mathieu Roland Work Phone: [facility] Work Phone: 11-14-2021 15:05-0400 Heart rate 79 /min Dr. Mathieu Roland Work Phone: [facility] Work Phone: 11-14-2021 15:05-0400 Systolic blood pressure 103 mm[Hg] Dr. Mathieu Roland Work Phone: [facility] Work Phone: 11-07-2021 13:35-0500 Respiratory rate 16 /min Dr. Mathieu Roland Work Phone: [facility] Work Phone: 10-28-2021 23:19-0500 Body weight 78.[address] Mathieu Roland Work Phone: [facility] Work Phone: 10-24-2021 13:48-0500 Body mass index (BMI) [Ratio] 28.6 kg/m2 Dr. Mathieu Roland Work Phone: [facility] Work Phone: 10-24-2021 13:48-0500 Body temperature 96.8 [degF] Dr. Mathieu Roland Work Phone: [facility] Work Phone: 10-24-2021 13:48-0500 Diastolic blood pressure 76 mm[Hg] Dr. Mathieu Roland Work Phone: [facility] Work Phone: 10-24-2021 13:48-0500 Respiratory rate 16 /min Dr. Mathieu Roland Work Phone: [facility] Work Phone: 10-24-2021 13:48-0500 Systolic blood pressure 181 mm[Hg] Dr. Mathieu Roland Work Phone: [facility] Work Phone: 10-17-2021 13:31-0500 Heart rate 75 /min Dr. Mathieu Roland Work Phone: [facility] Work Phone: 09-30-2021 23:13-0500 Body weight 78.[address] Mathieu Roland Work Phone: [facility] Work Phone: 09-26-2021 13:01-0500 Body mass index (BMI) [Ratio] 28.6 kg/m2 Dr. Mathieu Roland Work Phone: [facility] Work Phone: 09-26-2021 13:01-0500 Body temperature 96.6 [degF] Dr. Mathieu Roland Work Phone: [facility] Work Phone: 09-26-2021 13:01-0500 Diastolic blood pressure 64 mm[Hg] Dr. Mathieu Roland Work Phone: [facility] Work Phone: 09-26-2021 13:01-0500 Heart rate 78 /min Dr. Mathieu Roland Work Phone: [facility] Work Phone: 09-26-2021 13:01-0500 Respiratory rate 16 /min Dr. Mathieu Roland Work Phone: [facility] Work Phone: 09-26-2021 13:01-0500 Systolic blood pressure 157 mm[Hg] Dr. Mathieu Roland Work Phone: [facility] Work Phone: 08-30-2021 23:06-0500 Body weight 78.[address] Mathieu Roland Work Phone: [facility] Work Phone: 08-15-2021 11:58-0500 Body mass index (BMI) [Ratio] 28.6 kg/m2 Dr. Mathieu Roland Work Phone: [facility] Work Phone: 08-15-2021 11:58-0500 Body temperature 98.7 [degF] Dr. Mathieu Roland Work Phone: [facility] Work Phone: 08-15-2021 11:58-0500 Diastolic blood pressure 72 mm[Hg] Dr. Mathieu Roland Work Phone: [facility] Work Phone: 08-15-2021 11:58-0500 Heart rate 79 /min Dr. Mathieu Roland Work Phone: [facility] Work Phone: 08-15-2021 11:58-0500 Respiratory rate 16 /min Dr. Mathieu Roland Work Phone: [facility] Work Phone: 08-15-2021 11:58-0500 Systolic blood pressure 176 mm[Hg] Dr. Mathieu Roland Work Phone: [facility] Work Phone: 08-08-2021 14:14-0500 Body height 165.[address] Mathieu Roland Work Phone: [facility] Work Phone: 08-08-2021 14:14-0500 Body weight 78.[address] Mathieu Roland Work Phone: [facility] Work Phone: Encounters Encounter Date Encounter Type Care Provider Facility Start: 02-28-2025 End: 02-28-2025 ambulatory MATHIEU ROLAND DO [facility] Start: 02-28-2025 End: 02-28-2025 Patient encounter procedure MATHIEU ROLAND DO [facility] Start: 02-23-2025 End: 02-23-[address] JAMESON GARCIA DO [facility] Start: 02-23-2025 End: 02-23-[address] JAMESON GARCIA DO [facility] Start: 02-21-2025 End: 02-25-[address] JAMESON GARCIA DO [facility] Start: 02-21-2025 End: 02-25-[address] JAMESON GARCIA DO [facility] Start: 02-20-[address] JAMESON GARCIA DO Facili ty:[facility] Start: 02-17-[address] JAMESON GARCIA DO Facili ty:[facility] Start: 01-12-2025 ambulatory MATHIEU ROLAND DO Facil [facility] Start: 01-09-2025 End: 01-09-2025 ambulatory MATHIEU ROLAND DO Facility[facility] Start: 01-09-2025 End: 01-09-2025 Patient encounter procedure MARQUISE LEHMAN MD [facility] Start: 10-12-2024 End: 10-12-2024 ambulatory MATHIEU ROLAND DO [facility] Start: 10-12-2024 End: 10-12-2024 Patient encounter procedure MATHIEU ROLAND DO [facility] Start: 09-05-2024 End: 09-05-2024 ambulatory MARQUISE LEHMAN MD Facility[facility] Start: 09-05-2024 End: 09-05-2024 Patient encounter procedure MARQUISE LEHMAN MD [facility] Start: 08-29-2024 End: 08-29-2024 ambulatory MATHIEU ROLAND DO [facility] Start: 08-29-2024 End: 08-29-2024 Patient encounter procedure MATHIEU ABBOTTY DO [facility] Start: 08-03-2024 End: 08-03-2024 ambulatory MATHIEU ROLAND DO [facility] Start: 08-03-2024 End: 08-03-2024 Patient encounter procedure MATHIEU ABBOTTY DO [facility] Start: 02-29-2024 End: 02-29-2024 ambulatory MARQUISE LEHMAN MD Facility:[facility] Start: 02-29-2024 End: 02-29-2024 Patient encounter procedure MARQUISE LEHMAN MD [facility] Start: 10-20-2023 End: 10-20-2023 ambulatory MARQUISE LEHMAN MD Facility:[facility] Start: 10-20-2023 End: 10-20-2023 Patient encounter procedure MARQUISE LEHMAN MD [facility] Start: 08-22-2023 End: 08-22-2023 Emergency department patient visit Mathieu Roland Facility:[facility] Start: 08-20-2023 End: 08-20-2023 ambulatory MATHIEU ABBOTTY Facility:[facility] Start: 08-20-2023 End: 08-20-2023 Patient encounter procedure MATHIEU ROLAND DO [facility] Start: 06-23-2023 End: 06-23-2023 ambulatory MATHIEU ROLAND DO Facility:[facility] Start: 02-12-2023 End: 02-12-2023 Patient encounter procedure MARQUISE LEHMAN MD [facility] Start: 10-29-2022 End: 10-29-2022 Patient encounter procedure [facility] Specimen Start: 10-29-2022 End: 10-29-2022 ambulatory Ed[facility]an [facility] [facility]23[facility] Start: 09-25-2022 End: 09-25-2022 Patient encounter procedure MARQUISE LEHMAN MD [facility] Start: 09-16-2022 End: 09-16-2022 Emergency department patient visit Whitney Ott Facility:[facility] Start: 09-15-2022 End: 09-16-2022 Emergency department patient visit [facility] Start: 06-02-2022 End: 06-02-2022 Patient encounter procedure MATHIEU ROLAND DO [facility] Start: 04-28-2022 End: 04-28-2022 Patient encounter procedure MARQUISE LEHMAN MD [facility] Start: 03-05-2022 End: 03-05-2022 Patient encounter procedure MARQUISE LEHMAN MD [facility] Start: 01-22-2022 End: 01-28-[address] [facility] Start: 01-18-2022 Non-patient / Non-visit Dr. Mathieu Roland Work Phone: [facility] Start: 01-17-2022 Non-patient / Non-visit Dr. Mathieu Roland Work Phone: [facility] Start: 01-16-2022 Non-patient / Non-visit Dr. Mathieu Roland Work Phone: [facility] Start: 01-15-2022 Non-patient / Non-visit Dr. Mathieu Roland Work Phone: [facility] Start: 01-14-2022 End: 01-18-2022 Evaluation and management of inpatient Dr. Mathieu Roland Work Phone: [facility]-Medical Surgical 3 Start: 01-14-2022 Non-patient / Non-visit Dr. Mathieu Roland Work Phone: [facility] Start: 01-14-2022 End: 01-14-2022 Emergency department patient visit IVELISSE KAUR DO [facility] Start: 01-13-[address] Leona Roland Work Phone: [facility] Start: 01-10-2022 End: 01-14-[address] DO [facility] Start: 12-26-2021 Non-patient / Non-visit Dr. Mathieu Roland Work Phone: [facility] Start: 12-26-2021 End: 12-28-[address] Mathieu Roland Work Phone: [facility] Start: 12-20-2021 End: 12-20-2021 Patient encounter procedure MATHIEU ROLAND DO [facility] Start: 12-19-2021 Non-patient / Non-visit Dr. Mathieu Roland Work Phone: [facility] Start: 12-12-2021 Non-patient / Non-visit Dr. Mathieu Roland Work Phone: [facility] Start: 11-28-2021 Non-patient / Non-visit Dr. Mathieu Roland Work Phone: [facility] Start: 11-28-2021 End: 11-28-[address] Mathieu Roland Work Phone: [facility] Start: 11-21-2021 Non-patient / Non-visit Dr. Mathieu Roland Work Phone: [facility] Start: 11-21-2021 End: 11-28-[address] Mathieu Roland Work Phone: [facility] Start: 11-14-2021 Non-patient / Non-visit Dr. Mathieu Roland Work Phone: [facility] Start: 11-14-[address] Leona Roland Work Phone: [facility] Start: 11-12-2021 End: 11-12-[address] Mathieu Roland Work Phone: [facility] Start: 11-07-2021 Non-patient / Non-visit Dr. Mathieu Roland Work Phone: [facility] Start: 10-31-2021 Non-patient / Non-visit Dr. Mathieu Roland Work Phone: [facility] Start: 10-24-2021 Non-patient / Non-visit Dr. Mathieu Roland Work Phone: [facility] Start: 10-24-2021 End: 10-28-[address] Mathieu Roland Work Phone: [facility] Start: 10-17-2021 Non-patient / Non-visit Dr. Mathieu Roland Work Phone: [facility] Start: 10-16-2021 End: 10-16-2021 Patient encounter procedure MARQUISE LEHMAN MD [facility] Start: 10-15-2021 End: 10-15-2021 Patient encounter procedure MARQUISE LEHMAN MD [facility] Start: 10-10-2021 Non-patient / Non-visit Dr. Mathieu Roland Work Phone: [facility] Start: 09-26-2021 Non-patient / Non-visit Dr. Mathieu Roland Work Phone: [facility] Start: 09-26-2021 End: 09-30-[address] Mathieu Roland Work Phone: [facility] Start: 09-19-2021 Non-patient / Non-visit Dr. Mathieu Roland Work Phone: [facility] Start: 09-12-2021 Non-patient / Non-visit Dr. Mathieu Roland Work Phone: [facility] Start: 09-05-2021 Non-patient / Non-visit Dr. Mathieu Roland Work Phone: [facility] Start: 08-15-2021 Non-patient / Non-visit Dr. Mathieu Roland Work Phone: [facility] Start: 08-15-2021 End: 08-30-[address] Mathieu Roland Work Phone: [facility] Start: 08-13-2021 End: 08-13-[address] JAMESON GARCIA DO [facility] Start: 08-08-2021 Non-patient / Non-visit Dr. Mathieu Roland Work Phone: [facility] Start: 07-19-2021 End: 07-19-[address] JAMESON GARCIA DO [facility] Start: 06-19-2021 End: 06-19-2021 Patient encounter procedure MARQIUSE LEHMAN MD [facility] Procedures Date Procedure Procedure Detail [...] Author Start: 01-16-2022 Fungal Culture Fungal Culture [facility] Work Phone: Start: 01-16-2022 Fungal Smear Fungal Smear [facility] Work Phone: Start: 01-14-2022 Bacteria identified in Blood by Culture Blood Culture [facility] Work Phone: Start: 01-14-2022 Microscopic observat ion [Identifier] in Unspecified specimen by Gram stain Gram Stain [facility] Work Phone: Start: 01-14-2022 Wound Culture Wound Culture [facility] Work Phone: Start: 12-26-2021 Anaerobic Culture Anaerobic Culture [facility] Work Phone: Start: 12-26-2021 Microbial culture, routine Wound Culture [facility] Work Phone: Patient Education ED Gastroenter itis, Viral (Adult) [facility] Work Phone: Patient referral [facility] Work Phone: Immunizations Immunization Date Immunization Notes Care Provider Fa [facility] 08-03-2024 influenza virus vaccine, unspecified formulation DR JAMESON GARCIA DO [facility] 08-03-2024 RSV vaccine preF3, recombinant DR JAMESON GARCIA DO [facility] 08-03-2024 SARS-CoV-2 (COVID-19 ) [id number] DR JAMESON GARCIA DO [facility] 06-25-2023 SARS-CoV-2 (COVID-19 ) [id number] MATHIEU ROLAND DO [facility] 04-22-2023 influenza virus vaccine, unspecified formulation MATHIEU ROLAND DO [facility] 04-22-2023 pneumococcal 20-sandro nt conjugate vaccine MATHIEU ROLAND DO [facility] 06-24-2022 influenza virus vaccine, unspecified formulation MARQUISE LEHMAN MD [facility] 12-17-2021 Covid (Moderna) Dr. Mathieu Roland Work Phone: [facility] 07-31-2021 SARS-CoV-2 (COVID-19 ) mRNA-[id number] vaccine MARQUISE LEHMAN MD [facility] 06-19-2021 influenza virus vaccine, unspecified formulation MARQUISE LEHMAN MD [facility] 11-09-2020 COVID-19, mRNA, LNP- S, PF, 100 mcg/ 0.5 mL dose; Translations: [Moderna COVID-19 Vaccine] MARQUISE LEHMAN MD [facility] 10-12-2020 COVID-19, mRNA, LNP- S, PF, 100 mcg/ 0.5 mL dose; Translations: [Moderna COVID-19 Vaccine] MARQUISE LEHMAN MD [facility] 05-16-2020 influenza virus vaccine, unspecified formulation MARQUISE LEHMAN MD [facility] 06-04-2019 influenza virus vaccine, unspecified formulation MARQUISE LEHMAN MD [facility] 01-12-2019 zoster vaccine recombinant MARQUISE LEHMAN MD [facility] 12-24-2018 pneumococcal polysaccharide vaccine, 23 valent MARQUISE LEHMAN MD [facility] 06-07-2018 influenza virus vaccine, unspecified formulation MARQUISE LEHMAN MD [facility] 03-23-2018 tetanus toxoid, redu jo diphtheria toxoid, and acellular pertussis vaccine, adsorbed MARQUISE LEHMAN MD [facility] 05-20-2017 influenza virus vaccine, unspecified formulation MARQUISE LEHMAN MD [facility] 05-20-2017 pneumococcal conjuga te vaccine, 13 heathent MARQUISE LEHMAN MD [facility] 05-01-2017 influenza virus vaccine, unspecified formulation MARQUISE LEHMAN MD [facility] 05-01-2017 pneumococcal conjuga te vaccine, 13 tyler LEHMAN MD [facility] 04-30-2017 pneumococcal conjuga te vaccine, 13 tyler LEHMAN MD [facility] 06-04-2016 influenza virus vaccine, unspecified formulation MARQUISE LEHMAN MD [facility] 08-31-2014 influenza virus vaccine, unspecified formulation MARQUISE LEHMAN MD [facility] Payers Date Payer Category Payer Private Health Insurance [facility] [id number] 2024 Medicare [id number] 2022 [facility] [id number] 2016 Unknown [id number] 1948 Unknown [id number] 2.16.8 [id number] 1948 Unknown [id number] 2.16.8 [id number] 1948 Unknown [id number] 2.16.8 40.1.413424.3.579.2.62 1948 Unknown [id number] 2.16.8 [id number] 1948 Unknown [id number] 2.16.8 40.1.143363.3.579.2.627 1948 Unknown [id number] 2.16. 840.1.361686.3.579.2.627 1948 Unknown [id number] 2.16. 840.1.340557.3.579.2.627 1948 Unknown [id number] 2.16. 840.1.153155.3.579.2.627 1948 Unknown [id number] 2.16. 840.1.971008.3.579.2.627 1948 Unknown [id number] 2.16. 840.1.688073.3.579.2.627 1948 Unknown [id number] 2.16.8 40.1.696406.3.579.2.627 1948 Unknown [id number] 2.16.8 40.1.835665.3.579.2.627 1948 Unknown [id number] 2.16.8 40.1.735754.3.579.2.627 1948 Unknown [id number] 2.16.8 40.1.211584.3.579.2.627 1948 Unknown [id number] 2.16.8 40.1.303206.3.579.2.627 1948 Unknown [id number] 2.16.8 40.1.777812.3.579.2.627 1948 Unknown [id number] 2.16.8 40.1.593884.3.579.2.627 Unknown [id number] 2.16.8 [id number] Unknown [id number] 2.16.8 40.1.141531.3.579.2.462 Unknown [id number] 2.16.8 [id number] Unknown [id number] 2.16.8 [id number] Social History Date Type Detail Facility Start: 09-12-2020 End: 10-20-2024 Never smoked tobacco (finding) [facility] Start: 1950 Sex Assigned At Female [facility] Start: 08-08-2021 End: 09-15-2022 Tobacco smoking status MAIS Unknown if ever smoked [facility] Start: 07-12-2020 None [facility] Start: 07-16-2020 Spouse/ Signif icant Other [facility] Start: 07-16-2020 Non-smoker;Secondhand W [facility] Sexual Orientation [facility] Start: 02-23-2019 Sex Female (finding) [facility] Functional Status Date Assessment Result Facility 01-18-2022 Functional status Ambulates [facility] Work Phone: Mental Status Date Assessment Result Facility 01-18-2022 Cognitive function Level Of Consciousness Drowsy [facility] Work Phone: 01-17-2022 Cognitive function Voice[facility]Name [facility] Work Phone: Clinical Notes 06-02-2022 to 08-29-2024 Note Date & Type Note Facility 08-29-2024 Note Exam Date Time Procedure Performing Provider Status 08/29/24 2:[address] Head or Brain w/o Contrast KAZ GUSTAFSON MD; Auth (Verified) [id number] ORIGINAL HISTORY: Dizziness, tinnitus, vertigo COMPARISON: No [...] Date: 08/29/2024 2:35:35 PM Ordering Provider: MATHIEU [facility]07-01-2024 Note ORIGINAL EXAMINATION: ULTRASOUND OF [...] Sign Date: 02/29/2024 2:06:10 PM Ordering Provider: [place] [address]-03-2022 Note ORIGINAL EXAMINATION: BONE DENSITOMETRY 06/02/2022 2:46 [...] 06/02/2022 4:12:45 PM Ordering Provider: MATHIEU ROLAND [facility]10-03-2022 Note ORIGINAL EXAMINATION: BONE DENSITOMETRY 06/02/2022 2:46 [...] Date: 06/02/2022 4:12:45 PM [facility]ing [facility] Future Appointments Appointment Date:06/25/2021 04:00:00 PM Scheduled Provider:MARQUISE LEHMAN MD Location:[facility] Appointment Type:ENDO OV Appointment Date:09/17/2021 03:30:00 PM Scheduled Provider:MATHIEU ROLAND DO Location:[facility] Appointment Type:PC OV Future Scheduled Tests Radiology* NM Myocardial Spect Rest/Stress 06/22/20 [facility] Evaluation + Plan note Future Appointments Appointment Date:08/15/2021 03:30:00 PM Scheduled Provider:MATHIEU ROLAND DO Location:[facility] Appointment Type:PC OV Appointment Date:09/17/2021 03:30:00 PM Scheduled Provider:MATHIEU ROLAND DO Location:[facility] Appointment Type:PC OV Appointment Date:10/22/2021 03:30:00 PM Scheduled Provider:MARQUISE LEHMAN MD Location:[facility] Appointment Type:ENDO OV Future Scheduled Tests Laboratory* Thyroid Stimulating Hormone 10/26/21 * A1C Hemoglobin 10/26/21 * Microalbumin Level Urine 10/26/21 * Vitamin D Level 10/26/21 * Complete Metabolic Panel 10/26/21 Radiology* XR Foot Minimum 3 Views Left 07/19/21 [facility] Evaluation + Plan note Future Appointments Appointment Date:10/22/2021 03:30:00 PM Scheduled Provider:MARQUISE LEHMAN MD Location:[facility] Appointment Type:ENDO OV Appointment Date:12/17/2021 04:00:00 PM Scheduled Provider:MATHIEU ROLAND DO Location:[facility] Appointment Type:PC OV Controlled Medication Future Scheduled Tests Laboratory* COVID-19 Only (AO) 08/29/21 * Microalbumin Level Urine 10/26/21 Radiology* XR Foot Minimum 3 Views Left 07/19/21 [facility] Evaluation + Plan note Future Appointments Appointment Date:10/22/2021 03:30:00 PM Scheduled Provider:MARQUISE LEHMAN MD Location[facility] Appointment Type:ENDO OV Appointment Date:12/17/2021 04:00:00 PM Scheduled Provider:MATHIEU ROLAND DO Location:[facility] Appointment Type:PC OV Controlled Medication Future Scheduled Tests Laboratory* COVID-19 Only (AO) 08/29/21 Radiology* XR Foot Minimum 3 Views Left 07/19/21 [facility] Evaluation + Plan note Future Appointments Appointment Date:01/14/2022 04:00:00 PM Scheduled Provider:MATHIEU ROLAND DO Location:[facility] Appointment Type:PC Wellness Medicare Appointment Date:01/23/2022 03:15:00 PM Scheduled Provider:MARQUISE LEHMAN MD Location:[facility] Appointment Type:ENDO OV Appointment Date:03/26/2022 04:00:00 PM Scheduled Provider:MATHIEU ROLAND DO Location:[facility] Appointment Type:PC OV Future Scheduled Tests Laboratory* Thyroid Stimulating Hormone 01/19/22 * Free T4 01/19/22 * A1C Hemoglobin 01/19/22 * Lipid Profile 01/19/22 * Microalbumin Level Urine 01/19/22 * Vitamin D Level 01/19/22 * Complete Metabolic Panel 01/19/22 * Complete Metabolic Panel 12/11/21 * Complete Metabolic Panel 11/21/21 * COVID-19 Only (AO) 08/29/21 Radiology* XR Foot Minimum 3 Views Left 07/19/21 [facility] Evaluation + Plan note Future Appointments Appointment Date:01/23/2022 03:15:00 PM Scheduled Provider:MARQUISE LEHMAN MD Location:[facility] Appointment Type:ENDO OV Appointment Date:03/26/2022 04:00:00 PM Scheduled Provider:MATHIEU ROLAND DO Location:[facility] Appointment Type:PC OV Future Scheduled Tests Laboratory* Thyroid Stimulating Hormone 01/19/22 * Free T4 01/19/22 * A1C Hemoglobin 01/19/22 * Lipid Profile 01/19/22 * Microalbumin Level Urine 01/19/22 * Vitamin D Level 01/19/22 * Complete Metabolic Panel 01/19/22 * Complete Metabolic Panel 12/11/21 * Complete Metabolic Panel 11/21/21 * COVID-19 Only (AO) 08/29/21 Radiology* XR Foot Minimum 3 Views Left 07/19/21 [facility] Evaluation + Plan note Future Appointments Appointment Date:03/06/2022 02:45:00 PM Scheduled Provider:MARQUISE LEHMAN MD Location:[facility] Appointment Type:ENDO OV Appointment Date:04/16/2022 02:00:00 PM Scheduled Provider:MATHIEU ROLAND DO Location:[facility] Appointment Type:PC OV Future Scheduled Tests Laboratory* Complete Metabolic Panel 12/11/21 * Complete Metabolic Panel 11/21/21 * COVID-19 Only (AO) 08/29/21 Radiology* XR Foot Minimum 3 Views Left 07/19/21 [facility] Evaluation + Plan note Future Appointments Appointment Date:06/17/2022 02:30:00 PM Scheduled Provider:MATHIEU ROLAND DO Location:[facility] Appointment Type:PC OV Controlled Medication Appointment Date:07/10/2022 02:45:00 PM Scheduled Provider:MARQUISE LEHMAN MD Location:[facility] Appointment Type:ENDO OV Future Scheduled Tests [...] BD Bone Density DEXA Axial Skeleton 04/23/22 [facility] Evaluation + Plan note Future Appointments Appointment Date:06/17/2022 02:30:00 PM Scheduled Provider:MATHIEU ROLAND DO Location:[facility] Appointment Type:PC OV Controlled Medication Appointment Date:07/10/2022 02:45:00 PM Scheduled Provider:MARQUISE LEHMAN MD Location:[facility] Appointment Type:ENDO OV Future Scheduled Tests Laboratory* Thyroid Stimulating Hormone 07/07/22 * A1C Hemoglobin 07/07/22 * Lipid Profile 07/07/22 * Hepatitis C Antibody IgG 04/23/22 * Vitamin D Level 07/07/22 * Complete Metabolic Panel 12/11/21 * Complete Metabolic Panel 11/21/21 * Complete Metabolic Panel 07/07/22 * COVID-19 Only (AO) 08/29/21 Radiology* XR Foot Minimum 3 Views Left 07/19/21 [facility] Evaluation + Plan note Future Appointments Appointment Date:10/02/2022 11:30:00 AM Scheduled Provider:MARQUISE LEHMAN MD Location:[facility] Appointment Type:ENDO OV Appointment Date:10/21/2022 03:30:00 PM Scheduled Provider:MATHIEU ROLAND DO Location:[facility] Appointment Type:PC OV Appointment Date:12/16/2022 03:30:00 PM Scheduled Provider:MATHIEU ROLAND DO Location:[facility] Appointment Type:PC OV Controlled Medication Future Scheduled Tests Laboratory* Hepatitis C Antibody IgG 04/23/22 * Complete Metabolic Panel 12/11/21 * Complete Metabolic Panel 11/21/21 [facility] Evaluation + Plan note Future Appointments Appointment Date:02/19/2023 03:00:00 PM Scheduled Provider:MARQUISE LEHMAN MD Location:[facility] Appointment Type:ENDO OV Appointment Date:03/18/2023 04:00:00 PM Scheduled Provider:MATHIEU ROLAND DO Location:[facility] Appointment Type:PC OV Controlled Medication Diagnostic Tests Pending * Vitamin D Level 02/12/23 Future Scheduled Tests Laboratory* Hepatitis C Antibody IgG 04/23/22 [facility] Evaluation + Plan note Future Appointments Appointment Date:09/10/2023 04:30:00 PM Scheduled Provider:MATHIEU ROLAND DO Location:[facility] Appointment Type:PC OV Appointment Date:10/27/2023 03:15:00 PM Scheduled Provider:MARQUISE LEHMAN MD Location:[facility] Appointment Type:ENDO OV Future Scheduled Tests Laboratory* Thyroid Stimulating Hormone 10/26/23 * Free T4 10/26/23 * A1C Hemoglobin 10/26/23 * Lipid Profile 10/26/23 * Albumin/Creatinine Ratio, Random Urine 10/26/23 * Vitamin D Level 10/26/23 * Complete Metabolic Panel 10/26/23 Radiology* US Thyroid 10/26/23 [facility] Evaluation + Plan note Future Appointments Appointment Date:10/27/2023 03:15:00 PM Scheduled Provider:MARQUISE LEHMAN MD Location:[facility] Appointment Type:ENDO OV Appointment Date:12/10/2023 03:00:00 PM Scheduled Provider:MATHIEU ROLAND DO Location:[facility] Appointment Type:PC OV Controlled Medication Future Scheduled Tests Laboratory* Complete Metabolic Panel 09/01/23 Radiology* US Thyroid 10/26/23 [facility] Evaluation + Plan note Future Appointments Appointment Date:03/10/2024 02:15:00 PM Scheduled Provider:MARQUISE LEHMAN MD Location:[facility] Appointment Type:ENDO OV Appointment Date:03/17/2024 03:30:00 PM Scheduled Provider:MATHIEU ROLAND DO Location:[facility] Appointment Type:PC OV Controlled Medication Future Scheduled Tests Laboratory* Complete Metabolic Panel 09/01/23 Radiology* US Thyroid 10/26/23 [facility] Evaluation + Plan note Future Appointments Appointment Date:08/22/2024 01:00:00 PM Scheduled Provider: Location:[facility] Appointment Type:MA Mammogram Screening Bilateral w/ [place] Appointment Date:08/22/2024 01:30:00 PM Scheduled Provider: Location:[facility] Appointment Type:BD Bone Density DEXA Axial Skeleton Appointment Date:09/08/2024 03:00:00 PM Scheduled Provider:MARQUISE LEHMAN MD Location:[facility] Appointment Type:ENDO OV Appointment Date:09/15/2024 02:30:00 PM Scheduled Provider:MATHIEU ROLAND DO Location:[facility] Appointment Type:PC OV Controlled Medication [...] or older) 08/22/24 * US Thyroid 10/26/23 [facility] Evaluation + Plan note Future Appointments Appointment Date:09/08/2024 03:00:00 PM Scheduled Provider:MARQUISE LEHMAN MD Location:[facility] Appointment Type:ENDO OV Appointment Date:09/15/2024 02:30:00 PM Scheduled Provider:MATHIEU ROLAND DO Location:[facility] Appointment Type:PC OV Controlled Medication Future Scheduled Tests Laboratory* Thyroid Stimulating Hormone 09/10/24 * Free T4 09/10/24 * A1C Hemoglobin 09/10/24 * Free T3 09/10/24 * Lipid Profile 09/10/24 * Albumin/Creatinine Ratio, Random Urine 09/10/24 * Vitamin D Level 09/10/24 * Complete Metabolic Panel 09/10/24 * Complete Metabolic Panel 09/01/23 Radiology* US Thyroid 10/26/23 [facility] Evaluation + Plan note Future Appointments Appointment Date:09/08/2024 03:00:00 PM Scheduled Provider:MARQUISE LEHMAN MD Location:[facility] Appointment Type:ENDO OV Appointment Date:09/15/2024 02:30:00 PM Scheduled Provider:MATHIEU ROLAND DO Location:[place] Appointment Type:PC OV Controlled Medication Future Scheduled Tests Radiology* US Thyroid 10/26/23 [facility] Evaluation + Plan note Future Appointments Appointment Date:10/13/2024 03:00:00 PM Scheduled Provider: Location:[facility] Appointment Type:ENDO Nurse Appointment Date:10/20/2024 04:00:00 PM Scheduled Provider:MATHIEU ROLAND DO Location:[place] Appointment Type:PC OV Appointment Date:01/12/2025 03:00:00 PM Scheduled Provider:MARQUISE LEHMAN MD Location:[facility] Appointment Type:ENDO OV Future Scheduled Tests Laboratory* Thyroid Stimulating Hormone 01/06/25 * A1C Hemoglobin 01/06/25 * Free T3 01/06/25 * Lipid Profile 01/06/25 * Albumin/Creatinine Ratio, Random Urine 01/06/25 * Vitamin D Level 01/06/25 * Complete Metabolic Panel 01/06/25 Radiology* US Thyroid 10/26/23 [facility] [employer] + Plan note Future Appointments Appointment Date:01/12/2025 03:00:00 PM Scheduled Provider:MARQUISE LEHMAN MD Location:[facility] Appointment Type:ENDO OV Appointment Date:03/16/2025 02:30:00 PM Scheduled Provider:MATHIEU ROLAND DO Location:[facility] Appointment Type:PC OV Controlled Medication [facility] Evaluation + Plan note Future Appointments Appointment Date:03/01/2025 04:00:00 PM Scheduled Provider:Jay Khan PT Location:[facility] Appointment Type:PT Treatment [facility] Appointment Date:03/16/2025 02:30:00 PM Scheduled Provider:MATHIEU ROLAND DO Location:[facility] Appointment Type:PC OV Controlled Medication Appointment Date:03/20/2025 04:00:00 PM Scheduled Provider: Location:[facility] Appointment Type:Echo - Echocardiogram Adult Appointment Date:06/07/2025 02:00:00 PM Scheduled Provider: Location:[facility] Appointment Type:US Thyroid Appointment Date:06/15/2025 03:30:00 PM Scheduled Provider:AMRQUISE LEHMAN MD Location:[facility] Appointment Type:ENDO OV Future Scheduled Tests Laboratory* Basic Metabolic Panel 02/23/25 * Thyroid Stimulating Hormone 06/14/25 * Free T4 06/14/25 * A1C Hemoglobin 06/14/25 * Lipid Profile 06/14/25 * Albumin/Creatinine Ratio, Random Urine 06/14/25 * Vitamin D Level 06/14/25 * Complete Metabolic Panel 06/14/25 Radiology* US Thyroid 06/07/25 [facility] Evaluation + Plan note Future Appointments Appointment Date:03/01/2025 04:00:00 PM Scheduled Provider:Jay Khan PT Location:[facility] Appointment Type:PT Treatment [facility] Appointment Date:03/16/2025 02:30:00 PM Scheduled Provider:MATHIEU ROLAND DO Location:[facility] Appointment Type:PC OV Controlled Medication Appointment Date:03/20/2025 04:00:00 PM Scheduled Provider: Location:[facility] Appointment Type:Echo - Echocardiogram Adult Appointment Date:06/07/2025 02:00:00 PM Scheduled Provider: Location:[facility] Appointment Type:US Thyroid Appointment Date:06/15/2025 03:30:00 PM Scheduled Provider:MARQUISE LEHMAN MD Location:[facility] Appointment Type:ENDO OV Future Scheduled Tests Laboratory* Basic Metabolic Panel 02/24/25 * Basic Metabolic Panel 02/23/25 * Thyroid Stimulating Hormone 06/14/25 * Free T4 06/14/25 * A1C Hemoglobin 06/14/25 * Lipid Profile 06/14/25 * Albumin/Creatinine Ratio, Random Urine 06/14/25 * Vitamin D Level 06/14/25 * Complete Metabolic Panel 06/14/25 Radiology* US Thyroid 06/07/25 [facility] Evaluation note* Diagnosis Onset Date Resolution Status [...] 2 diabetes mellitus acute Hypertension chronic Hypothyroidism [facility] Work Phone: Evaluation note* Diagnosis Onset [...] Wound infection acute Type 2 diabetes mellitus [facility] Work Phone: Evaluation note* Diagnosis Onset [...] chronic Type 2 diabetes mellitus chr onic [facility] Work Phone: Evaluation note* Diagnosis [...] Gangrene of toe of left foot resolved [facility] Work Phone: Evaluation noteNo assessment information available [facility] Work Phone: Hospital course Narrative No data available for this section [facility] Hospital Discharge instructions No data available for this section [facility] Progress note No data available for this section [facility] Chief Complaint and Reason for Visit Chief [...] November 16th, 2 020 6:34pm Power of Card Checker No July 16, 2020 6:34pm Advance Directive Response Recorded Date/ Time Living Will No January 14, 2022 7 :06pm Power of Card Checker No January 14, 2022 7:06pm Advance Directive Response Recorded Date/ Time Living Will No January 14, 2022 1 1:01pm Power of Card Checker No January 14, 2022 11:01pm Advance Directive Response Recorded Date/ Time Living Will No September 15 11:53pm Power of Card Checker No September 15, 2022 11:53pm Summary Purpose [...] Member Role: Primary Care Physician Address: Address: [address] [place] [address] [facility] [address] Name: MARQUISE LEHMAN MD Position: P4 Physician - Endocrinology Med Service: Active Provider Member Role: Hat Braider Address: Address: [address] [place] [address], [place] [address]- Name: CURT JORDAN DPM Position: Physician Med Service: Admitting Member Role: Registered Nurse Behavioral Health Address: Address: [address] [place] [address], [place] [address] [facility] [place], [place] [id number] [place] [address] Care Team Related Persons Name: ALBERTO GREGORY Care Team Personnel Name: MATHIEU ROLAND DO Position: P4 Physician - Primary Care Member Role: Primary Care Physician Address: Address: [address] [place] [place] [address] Name: MARQUISE LEHMAN MD Position: P4 Physician - Endocrinology Address: Address: [address] [place] [address] [place], [place] [address]- Name: CURT JORDANM Position: Physician Address: Address: [address] [place] [address], [address] [facility] [address] Care Team Related Persons Name: ALBERTO GREGORY Care Team Personnel Name: MATHIEU ROLAND DO Position: P4 Physician - Primary Care Med Service: Active Provider Member Role: Primary Care Physician Address: Address: [address] [place] [place] [address] Name: MARQUISE LEHMAN MD Position: P4 Physician - Endocrinology Med Service: Active Provider Member Role: Hat Braider Address: Address: [address] [place] [address], [address] Name: CURT JORDAN DPM Position: Physician Med Service: Admitting Member Role: Registered Nurse Behavioral Health Address: Address: [address] [place] [address], [address] [facility] [address] Care Team Related Persons Name: ALBERTO GREGORY Care Team Personnel Name: MATHIEU ROLAND DO Position: P4 Physician - Primary Care Member Role: Primary Care Physician Address: Address: [address] [place] [place] [address] Name: MARQUISE LEHMAN MD Position: P4 Physician - Endocrinology Member Role: Hat Braider Address: Address: [address] [place] [address], [place] [address]- Name: CURT JORDAN DPM Position: Physician Member Role: Registered Nurse Behavioral Health Address: Address: [address] [place] [address], [address] [facility] [place] [address]- Care Team Related Persons Name: ALBERTO GREGORY INFORMATION SOURCE (unrecogn ized section and content) DATE CREATED AUTHOR 08/29/2023 [facility] DATE CREATED AUTHOR AUTHOR'S ORGANIZ ATION 03/16/2024 [facility] [place] [facility] DATE CREATED AUTHOR AUTHOR'S ORGANIZ ATION 09/19/2024 [facility] DATE CREATED AUTHOR AUTHOR'S ORGANIZ ATION 03/02/2025 [facility] PERTAINING TO PATIENTS WHO [...] BE BASED ON THE PRIMARY CLINICAL RECORDS. [facility] [employer] [facility]. provides no warranty or guarantee of the accuracy or completeness of information in this document.
--- OUTSIDE RECORDS SUMMARY | 2025-03-02 23:44 | XMS RPT_ITS | CCD ---
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 Mathieu Roland Primary Care Provider [facility]EVEL CLINICIAN, MID LEVEL CLINICIAN-C Milad Attending Provider [phone] [facility]EVEL CLINICIAN, MID LEVEL CLINICIAN-C Milad Other Provider 1([phone] Mathieu Roland Primary Care Provider Saunders [facility] LEVEL CLINICIAN, MID LEVEL CLINICIAN-C Milad Attending Provider [phone] [facility] LEVEL CLINICIAN, MID LEVEL CLINICIAN-C Milad Other Provider 1([facility])-[phone] Mathieu Roland Primary Care Provider [facility]unders [facility] LEVEL CLINICIAN, MID LEVEL CLINICIAN-C Milad Attending Provider [phone] Saunders MID LEVEL CLINICIAN, MID LEVEL CLINICIAN-C Milad Other Provider 1([facility])-[phone] Mathieu Roland Primary Care Provider [facility] LEVEL CLINICIAN, MID LEVEL CLINICIAN-C Milad Attending Provider [phone] [facility] MID LEVEL CLINICIAN, MID LEVEL CLINICIAN-C Milad Other Provider 1([facility])-[phone] Rafael Perez Emergency Provider Dr. Milad Reynolds Admit Provider Dr. Milad Reynolds Attending Provider Dr. Milad Reynolds Other Provider Dr. Tiffany Hairston Other Provider Dr. Paula Naranjo Attending Provider Dr. Paula Naranjo Other Provider 1([facility])[phone] Gibson Ruiz Other Provider 1([facility])[phone] Dr. Mathieu Roland Primary Care Provider Chip MID LEVEL CLINICIAN, MID LEVEL CLINICIAN-C Milad Attending Provider Chip MID LEVEL CLINICIAN, MID LEVEL CLINICIAN-C Milad Other Provider Dr. Jonny Lynch Attending [...] anxiety, # 90 tab(s), 2 Refill(s), [id number], Anxiety Long-term use of high-risk medication, 165, cm, 12/08/24 16:01:00 EDT, Height, 73.7, kg, 12/08/24 15:44:00 EDT, Dosing Weight Start Date: 12/08/24 Status: Ordered Quantity: 90.0 Unit: tab(s) Repeat number: 3 Indications: Other custodial (current) drug therapy; Anxiety disorder, unspecified; Start: 06-15-2024 Xanax 0.5 mg o ral tablet Dose : 0.5 mg = 1 tab(s), Oral, TID, PRN as needed for anxiety, Do not fill until June 28, 2024, # 90 tab(s), 2 Refill(s), [id number], Anxiety, 162.6, cm, 06/15/24 14:27:00 EDT, Height, 76.6, kg, 03/17/24 15:31:00 EDT, Dosing Weight Start Date: 06/15/24 Status: Ordered Start: 12-10-2023 Xanax 0.5 mg o ral tablet Dose : 0.5 mg = 1 tab(s), Oral, TID, PRN as needed for anxiety, # 90 tab(s), 2 Refill(s), Pharmacy: [facility] #[id number], Anxiety, 165.5, cm, 12/10/23 15:09:00 EDT, Height, 79.8, kg, 12/10/23 15:09:00 EDT, Dosing Weight Start Date: 12/10/23 Status: Ordered Start: 09-23-2023 End: 09-30-2023 Xanax 0.5 mg oral tablet Dos e : 0.5 mg = 1 tab(s), Oral, TID, PRN as needed for anxiety, Short-term fill until next appointment, # 90 tab(s), 2 Refill(s), [facility]: [facility] #[id number], Anxiety, 165, cm, 09/01/23 13:55:00 EST, Height, [...] 90 tab(s), 2 Refill(s), Pharmacy: [facility] #[id number], Anxiety, 164, cm, 12/16/22 15:44:00 EDT, Height, 81.4, kg, 12/16/22 15:44:00 EDT, Dosing Weight Start Date: 12/16/22 Stop Date: 03/16/23 Status: Ordered Start: 07-16-2020 End: 06-25-2022 Xanax 0.5 mg oral tablet Dos e : 0.5 mg = 1 tab(s), Oral, TID, PRN as needed for anxiety, # 90 tab(s), 2 Refill(s), Pharmacy: [facility] #[id number], Anxiety, 165, cm, 03/27/22 16:49:00 EDT, Height, [...] her., # 90 tab(s), 1 Refill(s), Pharmacy: [facility]/pharmacy #[id number], Anxiety Trouble in sleeping, 162, cm, 03/17/24 15:31:00 EDT, Height, kg, 03/17/24 15:31:00 EDT, Dosing Weight Start Date: 03/17/24 Status: Ordered Start: 09-23-2023 amitriptyline 10 mg oral tablet Dose : 10 mg = 1 tab(s), Oral, qHS, Aware of patient age. Patient tolerates medication well and this medication works for her., # 90 tab(s), 1 Refill(s), Pharmacy: [facility] #[id number], Anxiety Trouble in sleeping, 165, cm, 09/01/23 13:55:00 EST, Height, kg, 09/01/23 13:47:00 EST, Dosing Weight Start Date: 09/23/23 Status: Ordered Start: 03-18-2023 amitriptyline 10 mg oral tablet Dose : 10 mg = 1 tab(s), Oral, qHS, Aware of patient age. Patient tolerates medication well and this medication works for her., # 90 tab(s), 1 Refill(s), Pharmacy: [facility] #[id number], Anxiety Recurrent major depression, 165, cm, 03/18/23 16:25:00 EDT, Height, kg, 03/18/23 16:09:00 EDT, Dosing Weight Start Date: 03/18/23 Status: Ordered Start: 09-16-2022 amitriptyline 10 mg oral tablet Dose : 10 mg = 1 tab(s), Oral, qHS, # 90 tab(s), 1 Refill(s), Pharmacy: [facility] #[id number], Anxiety Depressive disorder, 164.5, cm, 09/16/22 16:07:00 EST, Height, kg, 09/16/22 16:07:00 EST, Dosing Weight Start Date: 09/16/22 Status: Ordered Start: 04-16-2022 amitriptyline 10 mg oral tablet Dose : 10 mg = 1 tab(s), Oral, qHS, New prescription, # 90 tab(s), 1 Refill(s), Pharmacy: [facility] #[id number], Anxiety Depressive disorder, 165, cm, 04/16/22 14:02:00 EDT, Height, kg, 04/16/22 13:55:00 EDT, Dosing Weight Start Date: 04/16/22 Status: Ordered Start: 10-25-2021 amitriptyline 10 mg oral tablet Dose : 10 mg = 1 tab(s), Oral, qHS, New prescription, # 30 tab(s), 5 Refill(s), [facility]acy: [facility] Tension headache Anxiety, 166.37, cm, 10/25/21 14:26:00 EST, Height, kg, 10/25/21 14:26:00 EST, Dosing Weight Start Date: 10/25/21 Status: Ordered amLODIPine 10 mg oral tablet (4 sources) Dihydropyridine Calcium Channel Doris Start: 10-20-2024 amLODIPine 10 mg ora l tablet Dose : 10 mg = 1 tab(s), Oral, qDay, # 90 tab(s), 3 Refill(s), Pharmacy: [facility]/pharmacy #[id number], Uncontrolled hypertension Hypertension associated with type [...] qDay, # 90 tab(s), 3 Refill(s), Pharmacy: [facility] #[id number], Uncontrolled hypertension Hypertension associated with type 2 diabetes mellitus, 165.5, cm, 12/10/23 15:09:00 EDT, Height, kg, 12/10/23 15:09:00 EDT, Dosing Weight Start Date: 12/10/23 Status: Ordered Start: 09-01-2023 amLODIPine 10 mg oral tablet Dose : 10 mg = 1 tab(s), Oral, qDay, # 90 tab(s), 1 Refill(s), [facility]acy: [facility] #[id number], Uncontrolled hypertension, 165, cm, 09/01/23 13:55:00 EST, [...] BID, # 60 tab(s), 2 Refill(s), Pharmacy: [facility]/pharmacy #[id number], 165, cm, 02/09/25 13:33:00 EDT, Height, [...] qDay, # 90 tab(s), 1 Refill(s), Pharmacy: [facility]/pharmacy #[id number], Hypertension PAD - Peripheral arterial disease, 162, cm, 03/17/24 15:31:00 EDT, Height, kg, 03/17/24 15:31:00 EDT, Dosing Weight Start Date: 03/17/24 Status: Ordered Start: 09-23-2023 clopidogrel 75 mg oral tablet Dose : 75 mg = 1 tab(s), Oral, qDay, # 90 tab(s), 1 Refill(s), Pharmacy: [facility] #[id number], Hypertension PAD - Peripheral arterial disease, 165, cm, 09/01/23 13:55:00 EST, Height, kg, 09/01/23 13:47:00 EST, Dosing Weight Start Date: 09/23/23 Status: Ordered Start: 03-18-2023 clopidogrel 75 mg oral tablet Dose : 75 mg = 1 tab(s), Oral, qDay, # 90 tab(s), 1 Refill(s), Pharmacy: [facility] #[id number], Hypertension PAD - Peripheral arterial disease, 165, cm, 03/18/23 16:25:00 EDT, Height, kg, 03/18/23 16:09:00 EDT, Dosing Weight Start Date: 03/18/23 Status: Ordered Start: 07-16-2020 clopidogrel 75 mg oral tablet Dose : 75 mg = 1 tab(s), Oral, qDay, # 90 tab(s), 1 Refill(s), Pharmacy: [facility] #[id number], Hypertension PAD - Peripheral arterial disease, 164.5, cm, 09/16/22 16:07:00 EST, Height, kg, 09/16/22 16:07:00 EST, Dosing Weight Start Date: 09/16/22 Status: Ordered colesevelam hydrochloride 625 mg oral tablet (1 source) Bile Acid Sequestrant Start: 07-10-2022 colesevelam 625 mg oral tablet Dose : 1,875 mg = 3 tab(s), Oral, BID, # 180 tab(s), 2 Refill(s), [facility][id number], 165, cm, 07/10/22 14:46:00 EST, Height Start [...] sources) Provitamin D2 Compound Start: 07-16-2020 take 21026 [IU] by mouth every week Ergocalciferol (Vitamin D2) Active 22686 UNIT PO EVERY WEEK July 16, 2020 [...] please, # 180 tab(s), 1 Refill(s), Pharmacy: [facility]/pharmacy #[id number], Neuropathy Chronic pain, 165, cm, 09/15/24 14:32:00 EST, Height, 74.9, kg, 09/15/24 14:32:00 EST, Dosing Weight Start Date: 09/15/24 Stop Date: 03/14/25 Status: Ordered Quantity: 180.0 Unit: tab(s) Repeat number: 2 Indications: Other chronic pain; Polyneuropathy, unspecified; Start: 09-23-2023 End: 09-13-2024 gabapentin 600 mg oral table t Dose : 600 mg = 1 tab(s), Oral, BID, # 180 tab(s), 1 Refill(s), Pharmacy: [facility]/pharmacy #[id number], Neuropathy Type 2 diabetes mellitus with complications, 162, cm, 03/17/24 15:31:00 EDT, Height, 76.6, kg, 03/17/24 15:31:00 EDT, Dosing Weight Start Date: 03/17/24 Stop Date: 09/13/24 Status: Ordered Start: 07-16-2020 End: 09-14-2023 gabapentin 600 mg oral table t Dose : 600 mg = 1 tab(s), Oral, BID, # 180 tab(s), 1 Refill(s), Pharm[facility]: [facility] #[id number], Neuropathy Controlled type 2 diabetes mellitus, 165, cm, 03/18/23 16:25:00 EDT, Height, 81.1, kg, 03/18/23 16:09:00 EDT, Dosing Weight Start Date: 03/18/23 Stop Date: 09/14/23 Status: Ordered glimepiride 2 mg oral tablet (19 sources) Sulfonylurea Start: 03-24-2022 glimepiride 2 mg oral tablet Dose : 2 mg = 1 tab(s), Oral, qDayM, # 90 tab(s), 1 Refill(s), [facility]: [facility] #[id number], 165, cm, 03/06/22 14:46:00 EDT, Height, kg, [...] daily, # 15 mL, 3 Refill(s), Pharmacy: [facility] [address] 166.37, cm, 10/25/21 14:26:00 [...] daily, # 15 mL, 3 Refill(s), Pharmacy: [facility] [address] 165.1, cm, 06/25/21 16:02:00 EDT, Height, kg, 06/25/21 16:02:00 EDT, Dosing Weight Start Date: 06/25/21 Status: Ordered Start: 01-29-2021 inject 1 dose by sub cutaneous injection once daily Levemir FlexTouch 100 units/mL 3 mL Pen Dose : 38 unit(s) =, Subcutaneous, Daily, inject 44 units subcutaneously daily, # 15 mL, 3 Refill(s), Pharmacy: [facility] [address] 164.5, cm, 01/24/21 15:33:00 [...] bedtime, # 15 mL, 1 Refill(s), Pharmacy: [facility] #[id number], 165.5, cm, 12/10/23 15:09:00 EDT, Height, kg, 12/10/23 15:09:00 EDT, Dosing Weight Start Date: 02/22/24 Status: Ordered Start: 06-25-2023 inject 1 dose by sub cutaneous injection once daily at bedtime Lantus Solostar Pen 100 units/mL 3 mL Pen Dose : 10 unit(s) =, Subcutaneous, qHS, inject 12 units subcutaneously at bedtime, # 15 mL, 1 Refill(s), Pharmacy: [facility] #[id number], 165, cm, 06/25/23 15:16:00 EDT, Height, kg, [...] qHS, # 15 mL, 3 Refill(s), Pharmacy: [facility] #[id number], 164.5, cm, 09/16/22 16:07:00 EST, Height Start Date: 09/18/22 Status: Ordered levothyroxine sodium 0.05 mg oral tablet (20 sources) l-Thyroxine Start: 01-16-2025 take 1 tablet by mouth once daily levothyroxine 50 mcg (0.05 mg) oral tablet See Instructions, take 1 tablet by mouth once daily, # 90 tab(s), 1 Refill(s), Pharmacy: [facility]/pharmacy #[id number], 165, cm, 01/12/25 15:01:00 EDT, Height, kg, 05/15/25 15:01:00 EDT, Dosing Weight Start Date: 01/16/25 Status: Ordered Quantity: 90.0 Unit: tab(s) Repeat number: 2 Start: 09-07-2024 take 1 tablet by yanelis th once daily levothyroxine 50 mcg (0.05 mg) oral tablet See Instructions, take 1 tablet by mouth once daily, # 90 tab(s), 1 Refill(s), Pharmacy: [facility]/pharmacy #[id number], 165, cm, 07/07/24 15:39:00 EST, Height, kg, 07/07/24 15:39:00 EST, Dosing Weight Start Date: 09/07/24 Status: Ordered Quantity: 90.0 Unit: tab(s) Repeat number: 2 Start: 12-10-2023 take 1 tablet by yanelis th once daily levothyroxine 50 mcg (0.05 mg) oral tablet See Instructions, take 1 tablet by mouth once daily, # 90 tab(s), 2 Refill(s), Pharmacy: [facility] #[id number], 165.5, cm, 12/10/23 15:09:00 EDT, Height, kg, 12/10/23 15:09:00 EDT, Dosing Weight Start Date: 12/10/23 Status: Ordered Start: 09-18-2022 take 1 tablet by yanelis th once daily levothyroxine 50 mcg (0.05 mg) oral tablet See Instructions, take 1 tablet by mouth once daily, # 90 tab(s), 2 Refill(s), Pharmacy: [facility] #[id number], 164.5, cm, 09/16/22 16:07:00 EST, Height, kg, [...] daily, # 90 tab(s), 1 Refill(s), [facility] [address] 165.1, cm, [...] Nausea/Vomiting, # 20 tab(s), 0 Refill(s), [facility] [address] 165, cm, 01/06/22 14:05:00 EDT, Height Start Date: 01/10/22 Status: Ordered Quantity: 20.0 Unit: tab(s) Repeat number: 1 Start: 07-13-2020 Zofran 4 mg or al tablet Dose : 4 mg = 1 tab(s), Oral, q6h, PRN Nausea/Vomiting, # 20 tab(s), 0 Refill(s), Pharmacy: [facility] [address] Nausea, 164.2, cm, 06/22/20 [...] 0 Refill(s), 02/25/25 3:10:00 PM EDT, Pharmacy: [facility]/pharmacy #[id number], Hypertension, 165, cm, 02/09/25 13:33:00 EDT, Height, kg, 02/09/25 13:33:00 EDT, Dosing Weight Start Date: 02/22/25 Stop Date: 02/25/25 Status: Ordered Quantity: 6.0 Unit: tab(s) Repeat number: 1 Indications: Essential (primary) hypertension; Start: 04-16-2022 take 1 tablet by yanelis th once daily Potassium Chloride (Xaf-Luzt-Ppm M20) 20 mEq oral tablet, extended release See Instructions, take 1 tablet by mouth once daily with FUROSEMIDE, # 90 tab(s), 1 Refill(s), Pharmacy: [facility] #[id number], Hypertension, 165, cm, 04/16/22 14:02:00 EDT, Height, kg, 04/16/22 13:55:00 EDT, Dosing Weight Start Date: 04/16/22 Status: Ordered Quantity: 90.0 Unit: tab(s) Repeat number: 2 Indications: Essential (primary) hypertension; Start: 04-16-2022 take 1 tablet by yanelis th once daily Potassium Chloride (Itl-Jwcm-Qqf M20) 20 mEq oral tablet, extended release See Instructions, take 1 tablet by mouth once daily with FUROSEMIDE, # 90 tab(s), 1 Refill(s), Pharmacy: [facility] #[id number], Hypertension, 165, cm, 04/16/22 14:02:00 EDT, Height, kg, 04/16/22 13:55:00 EDT, Dosing Weight Start Date: 04/16/22 Status: Ordered Start: 02-04-2022 take 1 tablet by yanelis th once daily Potassium Chloride (Pkg-Mout-Jqq M20) 20 mEq oral tablet, extended release See Instructions, take 1 tablet by mouth once daily with FUROSEMIDE, # 30 tab(s), 1 Refill(s), Pharmacy: [facility] 165, cm, 01/06/22 14:05:00 EDT, Height, kg, 01/06/22 14:05:00 EDT, Dosing Weight Start Date: 02/04/22 Status: Ordered Start: 12-11-2021 take 1 tablet by yanelis th once daily Potassium Chloride (Gcf-Hdqy-Xnt M20) 20 mEq oral tablet, extended release See Instructions, take 1 tablet by mouth once daily with FUROSEMIDE, # 30 tab(s), 1 Refill(s), [facility] [facility] 166.37, cm, 10/25/21 14:26:00 EST, Height, kg, 10/25/21 14:26:00 EST, Dosing Weight Start Date: 12/11/21 Status: Ordered Start: 09-30-2021 take 1 tablet by yanelis th once daily Potassium Chloride (Wvm-Lxkq-Usi M20) 20 mEq oral tablet, extended release See Instructions, take 1 tablet by mouth once daily with FUROSEMIDE, # 30 tab(s), 1 Refill(s), [facility] 165, cm, 09/17/21 15:34:00 EST, Height, kg, 09/17/21 15:34:00 EST, Dosing Weight Start Date: 09/30/21 Status: Ordered Start: 04-25-2021 take 1 tablet by yanelis th once daily Potassium Chloride (Lbv-Xlzr-Mgb M20) 20 mEq oral tablet, extended release See Instructions, take 1 tablet by mouth once daily with FUROSEMIDE, # 30 tab(s), 1 Refill(s), [facility] 165.1, cm, 03/12/21 15:19:00 EDT, [...] qDay, # 60 cap(s), 5 Refill(s), Pharmacy: [facility]/pharmacy #[id number], HTN (hypertension), 165, cm, 02/23/25 14:08:00 EDT, Height, kg, 02/23/25 14:08:00 EDT, Dosing Weight Start Date: 02/23/25 Stop Date: 08/22/25 Status: Ordered Quantity: 60.0 Unit: cap(s) Repeat number: 6 Indications: Essential (primary) hypertension; Start: 12-28-2024 ramipril 10 mg oral capsule Dose : 10 mg = 1 cap(s), Oral, qDay, # 30 cap(s), 5 Refill(s), Pharmacy: [facility]/pharmacy #[id number], 165, cm, 12/08/24 16:01:00 EDT, Height, kg, 12/08/24 15:44:00 EDT, Dosing Weight Start Date: 12/28/24 Status: Ordered Quantity: 30.0 Unit: cap(s) Repeat number: 6 Start: 07-13-2024 ramipril 10 mg oral capsule Dose : 10 mg = 1 cap(s), Oral, qDay, # 30 cap(s), 0 Refill(s), Pharmacy: [facility]/pharmacy #[id number], 165, cm, 07/07/24 15:39:00 EST, Height, kg, 07/07/24 15:39:00 EST, Dosing Weight Start Date: 07/13/24 Status: Ordered Start: 12-10-2023 ramipril 10 mg oral capsule Dose : 10 mg = 1 cap(s), Oral, qDay, # 30 cap(s), 4 Refill(s), Pharmacy: [facility] #[id number], 165.5, cm, 12/10/23 15:09:00 EDT, Height, kg, 12/10/23 15:09:00 EDT, Dosing Weight Start Date: 12/10/23 Status: Ordered Start: 08-03-2023 ramipril 10 mg oral capsule Dose : 10 mg = 1 cap(s), Oral, qDay, # 30 cap(s), 4 Refill(s), Pharmacy: [facility] #[id number], 165, cm, 06/25/23 15:16:00 EDT, Height, kg, 06/25/23 15:16:00 EDT, Dosing Weight Start Date: 08/03/23 Status: Ordered Start: 09-18-2022 ramipril 10 mg oral capsule Dose : 10 mg = 1 cap(s), Oral, qDay, # 30 cap(s), 4 Refill(s), Pharmacy: [facility] #[id number], 164.5, cm, 09/16/22 16:07:00 EST, Height, kg, 09/16/22 16:07:00 EST, Dosing Weight Start Date: 09/18/22 Status: Ordered Start: 03-24-2022 ramipril 10 mg oral capsule Dose : 10 mg = 1 cap(s), Oral, qDay, # 30 cap(s), 4 Refill(s), Pharmacy: [facility] #[id number], 165, cm, 03/06/22 14:46:00 EDT, Height, kg, 03/06/22 14:46:00 EDT, Dosing Weight Start Date: 03/24/22 Status: Ordered Start: 10-31-2021 take 10 mg by mouth once daily Ramipril Active 10 MG PO DAILY October 31, 2021 12:00am Start: 10-22-2021 ramipril 10 mg oral capsule Dose : 10 mg = 1 cap(s), Oral, qDay, # 30 cap(s), 4 Refill(s), Pharmacy: [facility] 165, cm, 10/22/21 15:25:00 EST, Height, kg, 10/22/21 15:25:00 EST, Dosing Weight Start Date: 10/22/21 Status: Ordered Start: 05-10-2021 ramipril 2.5 m g oral capsule Dose : 2.5 mg = 1 cap(s), Oral, qDay, # 90 cap(s), 0 Refill(s), Pharmacy: [facility] 165.1, cm, 06/25/21 16:02:00 [...] qDay, # 90 tab(s), 3 Refill(s), Pharmacy: [facility]/pharmacy #[id number], Hyperlipidemia Controlled type 2 diabetes mellitus, [...] medication, # 90 tab(s), 3 Refill(s), [facility] #[id number], Type 2 diabetes mellitus with hyperlipidemia, 165, [...] day(s), # 20 tab(s), 0 Refill(s), Pharmacy: [facility] [address] 165, cm, 01/06/22 14:05:00 EDT, Height, 88 Start Date: 01/10/22 Stop Date: 01/20/22 Status: Ordered Start: 07-19-2021 End: 08-02-2021 take 1 tablet by mouth every twelve hours sulfamethoxazole-trimethoprim 800 mg-160 mg oral tablet Dose = 1 tab(s), Oral, q12h, drink plenty of fluids, X 14 day(s), # 28 tab(s), 0 Refill(s), [facility] [address] 165.1, cm, 06/25/21 16:02:00 [...] week, # 4 cap(s), 6 Refill(s), Pharmacy: [facility] #[id number], Vitamin D deficiency, 164.5, cm, 10/21/22 15:34:00 EST, Height, kg, 10/21/22 15:34:00 EST, Dosing Weight Start Date: 10/21/22 Status: Ordered Start: 03-24-2022 take 1 capsule by mo [facility] every week Vitamin D2 1.25 mg (50,000 intl units) oral capsule See Instructions, take 1 capsule by mouth every week, # 4 cap(s), 6 Refill(s), called to pharmacy (Rx) Start Date: 03/24/22 Status: Ordered Start: 09-07-2021 take 1 capsule by [facility] every week Vitamin D2 1.25 mg (50,000 [...] week, # 9 mL, 5 Refill(s), Pharmacy: [facility] #[id number], 165.5, cm, 12/10/23 15:09:00 EDT, Height, kg, 12/10/23 15:09:00 EDT, Dosing Weight Start Date: 12/10/23 Status: Ordered Quantity: 9.0 Unit: mL Repeat number: 6 Start: 12-10-2023 inject 1 mg by subcu taneous injection every week Ozempic 4 mg/3 mL (1 mg dose) subcutaneous solution Dose : 1 mg =, Subcutaneous, qWeek, inject 1 milligram subcutaneously every week, # 9 mL, 5 Refill(s), Pharmacy: [facility] #[id number], 165.5, cm, 12/10/23 15:09:00 EDT, Height, kg, 12/10/23 15:09:00 EDT, Dosing Weight Start Date: 12/10/23 Status: Ordered Start: 08-10-2023 inject 1 mg by subcu taneous injection every week Ozempic 4 mg/3 mL (1 mg dose) subcutaneous solution Dose : 1 mg =, Subcutaneous, qWeek, inject 1 milligram subcutaneously every week, # 3 mL, 3 Refill(s), Pharmacy: [facility] #[id number], 165, cm, 06/25/23 15:16:00 EDT, Height, kg, 06/25/23 15:16:00 EDT, Dosing Weight Start Date: 08/10/23 Status: Ordered Start: 11-13-2022 inject 1 mg by subcu taneous injection every week Ozempic (1 mg dose) 4 mg/3 mL subcutaneous solution Dose : 1 mg =, Subcutaneous, qWeek, inject 1 milligram subcutaneously every week, # 3 mL, 3 Refill(s), Pharmacy: [facility] #[id number], 164.5, cm, 10/21/22 15:34:00 EST, Height, kg, 10/21/22 15:34:00 EST, Dosing Weight Start Date: 11/13/22 Status: Ordered Start: 06-17-2022 inject 1 mg by subcu taneous injection every week Ozempic (1 mg dose) 4 mg/3 mL subcutaneous solution Dose : 1 mg =, Subcutaneous, qWeek, inject 1 milligram subcutaneously every week, # 2 mL, 3 Refill(s), Pharmacy: [facility] #[id number], 165, cm, 04/23/22 13:51:00 EDT, Height Start [...] 2025, # 60 tab(s), 0 Refill(s), [id number], Chronic pain, 165, cm, 12/08/24 [...] 2024, # 60 tab(s), 0 Refill(s), [id number], Chronic pain, 165, cm, 09/15/24 [...] 2024, # 60 tab(s), 0 Refill(s), Pharmacy: [facility]/pharmacy #[id number], Chronic pain, 162.6, cm, 06/15/24 14:27:00 [...] 2022., # 60 tab(s), 0 Refill(s), Pharmacy: [facility] #[id number], Chronic pain, 164.5, cm, 09/16/22 16:07:00 EST, Height, 81.5, kg, 09/16/22 16:07:00 EST, Dosing Weight Start Date: 09/16/22 Stop Date: 10/16/22 Status: Ordered Start: 03-27-2022 End: 04-27-2022 take 1 tablet by mouth twice daily acetaminophen-hydrocodone 325 mg-5 mg or al tablet Dose = 1 tab(s), Oral, BID, Do not fill until May 26, 2022, # 60 tab(s), 0 Refill(s), Pharmacy: [facility] #[id number], Chronic pain, 165, cm, 03/27/22 16:49:00 EDT, Height, 83.7, kg, 03/27/22 16:39:00 EDT, Dosing Weight Start Date: 03/28/22 Stop Date: 04/27/22 Status: Ordered Start: 12-17-2021 End: 01-16-2022 take 1 tablet by mouth twice daily acetaminophen-hydrocodone 325 mg-5 mg or al tablet Dose = 1 tab(s), Oral, BID, Please do not fill until 02/15/2022, # 60 tab(s), 0 Refill(s), Pharmacy: [facility] Chronic pain, 165, cm, 12/17/21 16:18:00 EDT, Height, 85, kg, 12/17/21 16:07:00 EDT, Dosing Weight Start Date: 12/17/21 Stop Date: 01/16/22 Status: Ordered Start: 09-17-2021 End: 10-17-2021 take 1 tablet by mouth twice daily acetaminophen-hydrocodone 325 mg-5 mg or al tablet Dose = 1 tab(s), Oral, BID, do not fill until 11/16/2021, # 60 tab(s), 0 Refill(s), Pharmacy: [facility] [address] Chronic pain, 165, cm, 09/17/21 15:34:00 EST, Height, 77.3, kg, 09/17/21 15:34:00 EST, Dosing Weight Start Date: 09/17/21 Stop Date: 10/17/21 Status: Ordered Start: 06-18-2021 End: 07-18-2021 take 1 tablet by mouth twice daily acetaminophen-hydrocodone 325 mg-5 mg or al tablet Dose = 1 tab(s), Oral, BID, Do not fill until 08/17/2021, # 60 tab(s), 0 Refill(s), [facility] [address] Chronic pain, 165.1, cm, 03/12/21 [...] sites, # 2 mL, 3 Refill(s), [facility] [address] 164.5, cm, 10/25/20 15:43:00 EST, [...] qDay, # 90 tab(s), 3 Refill(s), Pharmacy: [facility]/pharmacy #[id number], Uncontrolled hypertension Hypertension associated with type [...] 90 tab(s), 3 Refill(s), Pharmacy: [id number], Uncontrolled hypertension Hypertension associated with type 2 diabetes mellitus, 165.5, cm, 12/10/23 15:09:00 EDT, Height, kg, 12/10/23 15:09:00 EDT, Dosing Weight Start Date: 12/10/23 Status: Ordered Start: 09-01-2023 hydroCHLOROthi azide 25 mg oral tablet Dose : 25 mg = 1 tab(s), Oral, qDay, # 90 tab(s), 1 Refill(s), Pharmacy: [facility] #[id number], Uncontrolled hypertension, 165, cm, 09/01/23 13:55:00 EST, [...] Estimated Glomerular Filtration Rate 61 ml/min/1.73sqm Normal [facility] Comment on above: Result Comment: Stages [...] Performed By: #### Ingris YATES, BMP #### [address] [address] BMPon 02-28-2025 BUN/Creatinine Ratio 19 ratio Normal 7-27 [facility] Comment on above: Performed By: #### Ingris YATES, BMP #### [address] [address] Calcium [Mass/Vol] 8.8 mg/dL Normal 8.4-10.2 [facility] Comment on above: Performed By: #### Ingris YATES, BMP #### [address] [address] Chloride [Moles/Vol] 93 mmol/L Low 98-107 [facility] Comment on above: Performed By: #### Ingris YATES, BMP #### [address] [address] CO2 [Moles/Vol] 28 mmol/L Normal 23-31 [facility] Comment on above: Performed By: #### Ingris YATES, BMP #### [address] [address] Creatinine [Mass/Vol] 0.96 mg/dL High 0.51-0.95 [facility] Comment on above: Performed By: #### Ingris YATES, BMP #### [address] [address] Electrolyte Balance 6.0 mEq/L Normal 4.0-15.0 [facility] Comment on above: Performed By: #### Ingris YATES, BMP #### [address] [address] Glucose [Mass/Vol] 103 mg/dL Normal 83-110 [facility] Comment on above: Performed By: #### Ingris YATES, BMP #### [address] [address] Potassium [Moles/Vol] 5.1 mmol/L Normal 3.5-5.1 [facility] Comment on above: Performed By: #### G , BMP #### [facility] [address] [place], [place] [address] Sodium [Moles/Vol] 127 mmol/L Low 136-145 [facility] Comment on above: Performed By: #### G FR, BMP #### [facility] [address] [place], [place] [address] Urea nitrogen [Mass/Vol] 18 mg/dL Normal 7-18 [facility] Comment on above: Performed By: #### G FR, BMP #### [address] [place], [place] [address] LABORATORYOrdered By: SYSTEM SYSTEM on 02-28-2025 Calcium [...] Estimated Glomerular Filtration Rate 70 ml/min/1.73sqm Normal [facility] Comment on above: Result Comment: Stages [...] Performed By: #### G , BMP #### [address] [address] BMPon 02-23-2025 BUN/Creatinine Ratio 15 ratio Normal 7-27 [facility] Comment on above: Performed By: #### G FR, BMP #### [address] [address] Calcium [Mass/Vol] 9.2 mg/dL Normal 8.4-10.2 [facility] Comment on above: Performed By: #### G FR, BMP #### [address] [address] Chloride [Moles/Vol] 92 mmol/L Low 98-107 [facility] Comment on above: Performed By: #### G FR, BMP #### [address] [address] CO2 [Moles/Vol] 33 mmol/L High 23-31 [facility] Comment on above: Performed By: #### G FR, BMP #### [address] [address] Creatinine [Mass/Vol] 0.86 mg/dL Normal 0.51-0.95 [facility] Comment on above: Performed By: #### Ingris YATES, BMP #### [address] [address] Electrolyte Balance 6.0 mEq/L Normal 4.0-15.0 [facility] Comment on above: Performed By: #### Ingris YATES, BMP #### [address] [address] Glucose [Mass/Vol] 152 mg/dL High 83-110 [facility] Comment on above: Performed By: #### Ingris YATES, BMP #### [address] [address] Potassium [Moles/Vol] 3.6 mmol/L Normal 3.5-5.1 [facility] Comment on above: Performed By: #### Ingris YATES, BMP #### [address] [address] Sodium [Moles/Vol] 131 mmol/L Low 136-145 [facility] Comment on above: Performed By: #### Ingris YATES, BMP #### [address] [address] Urea nitrogen [Mass/Vol] 13 mg/dL Normal 7-18 [facility] Comment on above: Performed By: #### Ingris YATES, BMP #### [address] [address] LABORATORYOrdered By: SYSTEM SYSTEM on 02-23-2025 Calcium [...] Basophil, Absolute 0.0 10 3/mcL Normal 0.0-0.3 [facility] Comment on above: Performed By: #### G , BMP #### [address] [address] Basophils/100 WBC (Bld) 0.6 % Normal 0.0-2.5 [facility] Comment on above: Performed By: #### G FR, BMP #### [address] [address] Eosinophil, Absolute 0.1 10 3/mcL Normal 0.0-0.7 [facility] Comment on above: Performed By: #### G FR, BMP #### [address] [address] Eosinophils/100 WBC (Bld) 1.0 % Normal 0.0-6.0 [facility] Comment on above: Performed By: #### G FR, BMP #### [address] [place], [place] [address] Lymphocyte, Absolute 1.1 10 3/mcL Normal 0.9-4.3 [facility] Comment on above: Performed By: #### G FR, BMP #### [facility] [address] [place], [place] [address] Lymphocytes/100 WBC (Bld) 22.2 % Normal 20.0-40.0 [facility] Comment on above: Performed By: #### G FR, BMP #### [address] [address] Monocyte, Absolute 0.5 10 3/mcL Normal 0.1-1.4 [facility] Comment on above: Performed By: #### G FR, BMP #### [address] [address] Monocytes/100 WBC (Bld) 8.9 % Normal 2.0-13.0 [facility] Comment on above: Performed By: #### G FR, BMP #### [address] [address] Neutrophils/100 WBC (Bld) 67.3 % Normal 50.0-75.0 [facility] Comment on above: Performed By: #### G FR, BMP #### [address] [address] .GFRon 02-21-2025 Estimated Glomerular Filtration Rate 84 ml/min/1.73sqm Normal [facility] Comment on above: Result Comment: Stages [...] Performed By: #### G FR, BMP #### [address] [address] .NEUABSon 02-21-2025 Neutrophil, Absolute 3.4 10 3/mcL Normal 2.3-8.1 [facility] Comment on above: Performed By: #### G FR, BMP #### [address] [address] BMPon 02-21-2025 BUN/Creatinine Ratio 15 ratio Normal 7-27 [facility] Comment on above: Performed By: #### G FR, BMP #### [address] [address] Calcium [Mass/Vol] 8.9 mg/dL Normal 8.4-10.2 [facility] Comment on above: Performed By: #### G FR, BMP #### [address] [address] Chloride [Moles/Vol] 92 mmol/L Low 98-107 [facility] Comment on above: Performed By: #### G FR, BMP #### [address] [address] CO2 [Moles/Vol] 35 mmol/L High 23-31 [facility] Comment on above: Performed By: #### G FR, BMP #### [address] [address] Creatinine [Mass/Vol] 0.74 mg/dL Normal 0.51-0.95 [facility] Comment on above: Performed By: #### G FR, BMP #### [address] [address] Electrolyte Balance 4.0 mEq/L Normal 4.0-15.0 [facility] Comment on above: Performed By: #### G FR, BMP #### [address] [address] Glucose [Mass/Vol] 157 mg/dL High 83-110 [facility] Comment on above: Performed By: #### G FR, BMP #### [address] [address] Potassium [Moles/Vol] 3.0 mmol/L Low 3.5-5.1 [facility] Comment on above: Performed By: #### G FR, BMP #### [address] [address] Sodium [Moles/Vol] 131 mmol/L Low 136-145 [facility] Comment on above: Performed By: #### G FR, BMP #### [address] [address] Urea nitrogen [Mass/Vol] 11 mg/dL Normal 7-18 [facility] Comment on above: Performed By: #### G , BMP #### [address] [address] CBCon 02-21-2025 Erythrocyte distribution width (RBC) [Ratio] 13.0 % Normal 11.5-15.5 [facility] Comment on above: Performed By: #### G , BMP #### [address] [address] Hematocrit (Bld) [Volume fraction] 42.0 % Normal 34.0-46.0 [facility] Comment on above: Performed By: #### G , BMP #### [address] [address] Hgb 14.6 G/dL Normal 12.0-16.0 [facility] Comment on above: Performed By: #### G FR, BMP #### [address] [address] MCH (RBC) [Entitic mass] 31.4 pg Normal 27.0-33.0 [facility] Comment on above: Performed By: #### G FR, BMP #### [address] [address] MCHC 34.8 G/dL Normal 32.0-36.0 [facility] Comment on above: Performed By: #### G FR, BMP #### [address] [place], [place] [address] MCV (RBC) [Entitic vol] 90.1 fL Normal 80.0-99.0 [facility] Comment on above: Performed By: #### Ingris YATES, BMP #### [address] [place], [place] [address] Platelet 119 10 3/mcL Low 150-450 [facility] Comment on above: Performed By: #### Ingris YATES, BMP #### [address] [place], [place] [address] Platelet mean volume (Bld) [Entitic vol] 9.3 fL Normal 6.6-10.5 [facility] Comment on above: Performed By: #### Ingris YATES, BMP #### [address] [address] RBC 4.66 10 6/mcL Normal 4.10-5.30 [facility] Comment on above: Performed By: #### Ingris YATES, BMP #### [address] [address] WBC 5.0 10 3/mcL Normal 4.5-10.8 [facility] Comment on above: Performed By: #### Ingris YATES, BMP #### [address] [address] LABORATORYOrdered By: SYSTEM SYSTEM on 02-21-2025 Basophils [...] B (Bld) [Mass/Vol] 244 pg/mL Normal 0-450 [facility] Comment on above: Result Comment: NT-p roBNP results of less than 300 pg/mL effectively rules out acute congestive heart failure with 99% negative predictive value. Performed By: #### G , BMP #### [address] [address] .GFRon 01-09-2025 Estimated Glomerular Filtration Rate 80 ml/min/1.73sqm Normal [facility] Comment on above: Result Comment: Stages [...] Performed By: #### Ingris YATES, BMP #### [address] [address] A1Con 01-09-2025 Glucose [Mass/Vol] 140 mg/dL Normal [facility] Comment on above: Result Comment: [place] mated Average Glucose calculated by equation ((28.7xA1C)-46.7) Estimated average glucose (eAG) is a calculated value from Hemoglobin A1C and 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 of the average blood glucose level in the last 2-3 month period. Normal range: less than 114 mg/dL Performed By: #### Ingris YATES, BMP #### [address] [address] HbA1c (Bld) [Mass fraction] 6.5 % High 4.3-6.4 [facility] Comment on above: Performed By: #### Ingris YATES, BMP #### [address] [address] CMPon 01-09-2025 ALT [Catalytic activity/Vol] 12 U/L Low 14-59 [facility] Comment on above: Performed By: #### Ingris YATES, BMP #### [address] [address] Albumin Level 3.4 G/dL Normal 3.4-4.8 [facility] Comment on above: Performed By: #### Ingris YATES, BMP #### [address] [address] Albumin/Globulin [Mass ratio] 1.2 {ratio} Normal 1.1-2.5 [facility] Comment on above: Performed By: #### Ingris YATES, BMP #### [address] [place] [address] ALP [Catalytic activity/Vol] 68 U/L Normal 40-135 [facility] Comment on above: Performed By: #### Ingris YATES, BMP #### [address] [address] AST [Catalytic activity/Vol] 19 U/L Normal 10-40 [facility] Comment on above: Performed By: #### G , BMP #### [address] [address] Bili Total 0.5 mg/dL Normal 0.2-1.0 [facility] Comment on above: Result Comment: Use of this assay is not recommended for patients undergoing treatment with eltrombopag due to the potential for falsely elevated results. Performed By: #### Ingris YATES, BMP #### [address] [address] BUN/Creatinine Ratio 12 ratio Normal 7-27 [facility] Comment on above: Performed By: #### Ingris YATES, BMP #### [address] [address] Calcium [Mass/Vol] 8.9 mg/dL Normal 8.4-10.2 [facility] Comment on above: Performed By: #### Ingris YATES, BMP #### [address] [address] Chloride [Moles/Vol] 105 mmol/L Normal 98-107 [facility] Comment on above: Performed By: #### Ingris YATES, BMP #### [address] [address] CO2 [Moles/Vol] 30 mmol/L Normal 23-31 [facility] Comment on above: Performed By: #### G , BMP #### [address] [address] Creatinine [Mass/Vol] 0.77 mg/dL Normal 0.51-0.95 [facility] Comment on above: Performed By: #### G , BMP #### [address] [address] Electrolyte Balance 7.0 mEq/L Normal 4.0-15.0 [facility] Comment on above: Performed By: #### G , BMP #### [address] [address] Globulin 2.9 G/dL Normal 2.7-4.4 [facility] Comment on above: Performed By: #### G , BMP #### [address] [address] Glucose [Mass/Vol] 122 mg/dL High 83-110 [facility] Comment on above: Performed By: #### G , BMP #### [address] [address] Potassium [Moles/Vol] 3.2 mmol/L Low 3.5-5.1 [facility] Comment on above: Performed By: #### Ingris YATES, BMP #### [address] [address] Sodium [Moles/Vol] 142 mmol/L Normal 136-145 [facility] Comment on above: Performed By: #### Ingris YATES, BMP #### [address] [address] Total Protein 6.3 G/dL Low 6.4-8.2 [facility] Comment on above: Performed By: #### Ingris YATES, BMP #### [address] [address] Urea nitrogen [Mass/Vol] 9 mg/dL Normal 7-18 [facility] Comment on above: Performed By: #### G , BMP #### [address] [address] FT3on 01-09-2025 Free T3 [Mass/Vol] 2.25 pg/mL Low 2.30-4.00 [facility] Comment on above: Performed By: #### G , BMP #### [address] [address] LABORATORYOrdered By: Neida Sarabia on 01-09-2025 Albumin [...] calculated value from Hemoglobin A1C and 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 of the average blood glucose [...] 01-09-2025 Cholesterol [Mass/Vol] 137 mg/dL Normal 0-200 [facility] Comment on above: Result Comment: Chol esterol Reference Interval: Less than 200 Desirable 200-239 Borderline high risk 240 and above High risk Performed By: #### G , BMP #### [address] [address] Cholesterol in HDL [Mass/Vol] 48 mg/dL Normal 40-60 [facility] Comment on above: Performed By: #### G FR, BMP #### [address] [address] Cholesterol in LDL [Mass/Vol] 69 mg/dL Normal 0-130 [facility] Comment on above: Performed By: #### G , BMP #### [address] [address] Triglyceride [Mass/Vol] 100 mg/dL Normal 0-150 [facility] Comment on above: Result Comment: Trig lyceride Reference Interval: Less than 150 Normal 150-199 Borderline high risk 200-499 High risk 500 or higher Very high risk Performed By: #### G FR, BMP #### [address] [address] MALBRon 01-09-2025 U Creatinine 48.2 mg/dL Normal 29.0-226.0 [facility] Comment on above: Performed By: #### G FR, BMP #### [address] [address] U Microalb 7.4 mg/L Normal [facility] Comment on above: Performed By: #### G FR, BMP #### [address] [address] U Ratio Alb/Cre 15 mg/G Normal 0-30 [facility] Comment on above: Performed By: #### G , BMP #### [address] [address] TSHon 01-09-2025 TSH Qn 2.48 m[IU]/L Normal 0.36-3.74 [facility] Comment on above: Performed By: #### G , BMP #### [address] [address] VIDHon 01-09-2025 Vit. D 25-Hydroxy 31.1 ng/mL Normal [facility] Comment on above: Result Comment: Inte rpretive Values Based on Total 25(OH) Vitamin D: Deficient <20 ng/mL Insufficient 20 - <30 ng/mL Sufficient 30-100 ng/mL Performed By: #### G , BMP #### [address] [address] XR SPINE LUMBAR W/OBLIQUES 4 VIEWSon 10-14-2024 [...] 10/14/2024 10:02:10 AM Ordering Provider: MATHIEU Lacy [facility] .Auto Diffon 10-12-2024 Basophil, Absolute 0.0 10 3/mcL Normal 0.0-0.2 [facility] Comment on above: Performed By: #### C BC, ANEU, ADIFF #### [address] [address] Basophils/100 WBC (Bld) 1.2 % Normal 0.0-2.5 [facility] Comment on above: Performed By: #### C BC, ANEU, ADIFF #### [address] [address] Eosinophil, Absolute 0.0 10 3/mcL Normal 0.0-0.7 [facility] Comment on above: Performed By: #### C BC, ANEU, ADIFF #### [address] [address] Eosinophils/100 WBC (Bld) 1.2 % Normal 0.0-7.0 [facility] Comment on above: Performed By: #### C BC, ANEU, ADIFF #### [address] [address] Lymphocyte, Absolute 1.3 10 3/mcL Normal 0.9-4.3 [facility] Comment on above: Performed By: #### C BC, ANEU, ADIFF #### [address] [address] Lymphocytes/100 WBC (Bld) 32.3 % Normal 20.0-40.0 [facility] Comment on above: Performed By: #### C BC, ANEU, ADIFF #### [address] [address] Monocyte, Absolute 0.4 10 3/mcL Normal 0.1-1.4 [facility] Comment on above: Performed By: #### C BC, ANEU, ADIFF #### [address] [address] Monocytes/100 WBC (Bld) 9.2 % Normal 2.0-13.0 [facility] Comment on above: Performed By: #### C BC, ANEU, ADIFF #### [address] [address] Neutrophils/100 WBC (Bld) 56.1 % Normal 50.0-75.0 [facility] Comment on above: Performed By: #### C BC, ANEU, ADIFF #### [address] [address] .NEUABSon 10-12-2024 Neutrophil, Absolute 2.3 10 3/mcL Normal 2.3-8.1 [facility] Comment on above: Performed By: #### G FR, BMP #### [place] [address] CBCon 10-12-2024 Erythrocyte distribution width (RBC) [Ratio] 13.4 % Normal 11.5-15.5 [facility] Comment on above: Performed By: #### C BC, ANEU, ADIFF #### [address] [address] Hematocrit (Bld) [Volume fraction] 43.4 % Normal 34.0-46.0 [facility] Comment on above: Performed By: #### C BC, ANEU, ADIFF #### [address] [address] Hgb 14.6 G/dL Normal 12.0-16.0 [facility] Comment on above: Performed By: #### C BC, ANEU, ADIFF #### [address] [address] MCH (RBC) [Entitic mass] 31.1 pg Normal 27.0-33.0 [facility] Comment on above: Performed By: #### C BC, ANEU, ADIFF #### [address] [address] MCHC 33.7 G/dL Normal 32.0-36.0 [facility] Comment on above: Performed By: #### C BC, ANEU, ADIFF #### [address] MCV (RBC) [Entitic vol] 92.4 fL Normal 80.0-99.0 [facility] Comment on above: Performed By: #### C EDWARD ROCHA, ADIFF #### [address] [place], [place] [address] Platelet 127 10 3/mcL Low 150-450 [facility] Comment on above: Performed By: #### C EDWARD ROCHA, ADIFF #### [address] [place], [place] [address] Platelet mean volume (Bld) [Entitic vol] 9.4 fL Normal 6.6-10.5 [facility] Comment on above: Performed By: #### C EDWARD ROCHA, ADIFF #### [address] [place], [place] [address] RBC 4.70 10 6/mcL Normal 4.10-5.30 [facility] Comment on above: Performed By: #### C EDWARD ROCHA, ADIFF #### [address] [place], [place] [address] WBC 4.2 10 3/mcL Low 4.5-10.8 [facility] Comment on above: Performed By: #### C EDWARD ROCHA, ADIFF #### [address] [address] LABORATORYOrdered By: SYSTEM SYSTEM on 10-12-2024 Basophils [...] By: #### 9 [address] #### [facility] [address] [place] [address], [address] [place] [id number] Reimbursement Specialist: Duncan Mccormack MD Alphahydroxymidazolam Negative Normal <[address] [facility] Comment on above: Order Comment: FASTI NG: UNKNOWN Result Comment: See Note 1 Performed By: #### 9 1484 #### [facility] of [address], [address] [place] [address] Reimbursement Specialist: Duncan Mccormack MD Alphahydroxytriazolam Negative Normal <[address] [facility] Comment on above: Order Comment: FASTI NG: UNKNOWN Result Comment: See Note 1 Performed By: #### 9 1484 #### [facility] of [address], [address] [place] [address] Reimbursement Specialist: Duncan Mccormack MD Aminoclonazepam Negative Normal <25 [facility] Comment on above: Order Comment: FASTI NG: UNKNOWN Result Comment: See Note 1 Performed By: #### 9 1484 #### [facility] of [address], [address] [place] [address] Reimbursement Specialist: Duncan Mccormack MD Amphetamines Negative Normal <500 [facility] Comment on above: Order Comment: FASTI NG: UNKNOWN Performed By: #### 9 1484 #### [facility] of [address], [address] [place] [address] Reimbursement Specialist: Duncan Mccormack MD Barbiturates Negative Normal <300 [facility] Comment on above: Order Comment: FASTI NG: UNKNOWN Performed By: #### 9 1484 #### [facility] of [address], [address] [place] [address] Reimbursement Specialist: Duncan Mccormack MD Benzodiazepines Positive Abnormal <100 [facility] Comment on above: Order Comment: FASTI NG: UNKNOWN Performed By: #### 9 1484 #### [facility] of [address], [address] [place] [address] Reimbursement Specialist: Duncan Mccormack MD Buprenorphine Negative Normal <5 [facility] Comment on above: Order Comment: FASTI NG: UNKNOWN Performed By: #### 9 1484 #### [facility] of [address], [address] [place] [address] Reimbursement Specialist: Duncan Mccormack MD Cocaine Metabolite Negative Normal <150 [facility] Comment on above: Order Comment: FASTI NG: UNKNOWN Performed By: #### 9 1484 #### [facility] [address], [address] [place] [address] Reimbursement Specialist: Duncna Mccormack MD Codeine Negative Normal <50 [facility] Comment on above: Order Comment: FASTI NG: UNKNOWN Result Comment: See Note 1 Performed By: #### 9 1484 #### [facility] [place] [address] Reimbursement Specialist: Duncan Mccormack MD COMMENT Normal [facility] Comment on above: Order Comment: FASTI NG: UNKNOWN Result Comment: See Note 2 Note 1 This test was developed and its analytical performance characteristics have been determined by [facility]. It has not been cleared or approved [...] interpreting these drug results, please contact a [facility] Toxicology Specialist: [phone] ( ), M-F, 8am-6pm EST. Performed By: #### 9 1484 #### [facility] [address], [address] [place] [address] Reimbursement Specialist: Duncan Mccormack MD Heroin Metabolite Negative Normal <10 [facility] Comment on above: Order Comment: FASTI NG: UNKNOWN Performed By: #### 9 1484 #### [facility] [place] [address] Reimbursement Specialist: Duncan Mccormack MD Hydrocodone 395 ng/mL High <50 [facility] Comment on above: Order Comment: FASTI NG: UNKNOWN Result Comment: See Note 1 Performed By: #### 9 1484 #### [facility] [place] [address] Reimbursement Specialist: Duncan Mccormack MD Hydromorphone 69 ng/mL High <50 [facility] Comment on above: Order Comment: FASTI NG: UNKNOWN Result Comment: See Note 1 Performed By: #### 9 1484 #### [facility] of [address], [address] [place] [address] Reimbursement Specialist: Duncan Mccormack MD Hydroxyethylflurazepam Negative Normal <50 [facility] Comment on above: Order Comment: FASTI NG: UNKNOWN Result Comment: See Note 1 Performed By: #### 9 1484 #### [facility] of [address], [address] [place] [address] Reimbursement Specialist: Duncan Mccormack MD Lorazepam Negative Normal <50 [facility] Comment on above: Order Comment: FASTI NG: UNKNOWN Result Comment: See Note 1 Performed By: #### 9 1484 #### [facility] of [place] [address] Reimbursement Specialist: Duncan Mccormack MD Marijuana Metabolite 20 Negative Normal <20 [facility] Comment on above: Order Comment: FASTI NG: UNKNOWN Performed By: #### 9 1484 #### [facility] of [place] [address] Reimbursement Specialist: Duncan Mccormack MD Methadone Metabolite Negative Normal <100 [facility] Comment on above: Order Comment: FASTI NG: UNKNOWN Performed By: #### 9 1484 #### [facility] of [place] [address] Reimbursement Specialist: Duncan Mccormack MD Morphine Negative Normal <50 [facility] Comment on above: Order Comment: FASTI NG: UNKNOWN Result Comment: See Note 1 Performed By: #### 9 1484 #### [facility] of [place] [address] Reimbursement Specialist: Duncan Mccormack MD Nordiazepam Negative Normal <50 [facility] Comment on above: Order Comment: FASTI NG: UNKNOWN Result Comment: See Note 1 Performed By: #### 9 1484 #### [facility] of [address], [address] [place] [address] Reimbursement Specialist: Duncan Mccormack MD Norhydrocodone 851 ng/mL High <50 [facility] Comment on above: Order Comment: FASTI NG: UNKNOWN Result Comment: See Note 1 Performed By: #### 9 1484 #### [facility] of [address], [address] [place] [address] Reimbursement Specialist: Duncan Mccormack MD Opiates Positive Abnormal <100 [facility] Comment on above: Order Comment: FASTI NG: UNKNOWN Performed By: #### 9 1484 #### [facility] of [address], [address] [place] [address] Reimbursement Specialist: Duncan Mccormack MD Oxazepam Negative Normal <50 [facility] Comment on above: Order Comment: FASTI NG: UNKNOWN Result Comment: See Note 1 Performed By: #### 9 1484 #### [facility] of [place] [address] Reimbursement Specialist: Duncan Mccromack MD Oxycodone Negative Normal <100 [facility] Comment on above: Order Comment: FASTI NG: UNKNOWN Performed By: #### 9 1484 #### [facility] of [place] [place] [address] Reimbursement Specialist: Duncan Mccormack MD Phencyclidine Negative Normal <25 [facility] Comment on above: Order Comment: FASTI NG: UNKNOWN Performed By: #### 9 1484 #### [facility] [place] [address] Reimbursement Specialist: Duncan Mccormack MD Temazepam Negative Normal <50 [facility] Comment on above: Order Comment: FASTI NG: UNKNOWN Result Comment: See Note 1 Performed By: #### 9 1484 #### [facility] [place] [address] Reimbursement Specialist: Duncan Mccormack MD .GFRon 09-05-2024 GFR 72 ml/min/1.73sqm Normal [facility] Comment on above: Result Comment: GFR [...] Performed By: #### G , BMP #### [address] [address] GFR Non- 59 ml/min/1.73sqm Normal [facility] Comment on above: Result Comment: GFR [...] Performed By: #### G , BMP #### [address] [address] A1Con 09-05-2024 Glucose [Mass/Vol] 128 mg/dL Normal [facility] Comment on above: Result Comment: [place] mated Average Glucose calculated by equation ((28.7xA1C)-46.7) Estimated average glucose (eAG) is a calculated value from Hemoglobin A1C and 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 of the average blood glucose level in the last 2-3 month period. Normal range: less than 114 mg/dL Performed By: #### G , BMP #### [address] [address] HbA1c (Bld) [Mass fraction] 6.1 % Normal 4.3-6.4 [facility] Comment on above: Performed By: #### G , BMP #### [address] [address] CMPon 09-05-2024 Albumin Level 3.5 G/dL Normal 3.4-4.8 [facility] Comment on above: Performed By: #### G , BMP #### [address] [address] Albumin/Globulin [Mass ratio] 1.2 {ratio} Normal 1.1-2.5 [facility] Comment on above: Performed By: #### Ingris YATES, BMP #### [address] [address] ALP [Catalytic activity/Vol] 81 U/L Normal 40-135 [facility] Comment on above: Performed By: #### Ingris YATES, BMP #### [address] [address] ALT [Catalytic activity/Vol] 16 U/L Normal 14-59 [facility] Comment on above: Performed By: #### Ingris YATES, BMP #### [address] [address] AST [Catalytic activity/Vol] 18 U/L Normal 10-40 [facility] Comment on above: Performed By: #### Ingris YATES, BMP #### [address] [address] Bili Total 0.7 mg/dL Normal 0.2-1.0 [facility] Comment on above: Result Comment: Use of this assay is not recommended for patients undergoing treatment with eltrombopag due to the potential for falsely elevated results. Performed By: #### G , BMP #### [address] [address] BUN/Creatinine Ratio 12 ratio Normal 7-27 [facility] Comment on above: Performed By: #### Ingris YATES, BMP #### [address] [address] Calcium [Mass/Vol] 9.2 mg/dL Normal 8.4-10.2 [facility] Comment on above: Performed By: #### G FR, BMP #### [address] [address] Chloride [Moles/Vol] 105 mmol/L Normal 98-107 [facility] Comment on above: Performed By: #### G FR, BMP #### [address] [address] CO2 [Moles/Vol] 34 mmol/L High 23-31 [facility] Comment on above: Performed By: #### G FR, BMP #### [address] [address] Creatinine [Mass/Vol] 0.92 mg/dL Normal 0.55-1.02 [facility] Comment on above: Result Comment: Test ing performed on Siemens Dimension EXL analyzer using a modified kinetic Michael technique. Performed By: #### G , BMP #### [address] [address] Electrolyte Balance 6.0 mEq/L Normal 4.0-15.0 [facility] Comment on above: Performed By: #### G , BMP #### [address] [address] Globulin 2.9 G/dL Normal [facility] Comment on above: Performed By: #### G FR, BMP #### [address] [address] Glucose [Mass/Vol] 118 mg/dL High 83-110 [facility] Comment on above: Performed By: #### G FR, BMP #### [address] [address] Potassium [Moles/Vol] 4.0 mmol/L Normal 3.5-5.1 [facility] Comment on above: Performed By: #### G FR, BMP #### [address] [address] Sodium [Moles/Vol] 145 mmol/L Normal 136-145 [facility] Comment on above: Performed By: #### G FR, BMP #### [address] [address] Total Protein 6.4 G/dL Normal 6.4-8.2 [facility] Comment on above: Performed By: #### G FR, BMP #### [address] [address] Urea nitrogen [Mass/Vol] 11 mg/dL Normal 7-18 [facility] Comment on above: Performed By: #### G , BMP #### [address] [address] FT3on 09-05-2024 Free T3 [Mass/Vol] 1.98 pg/mL Low 2.30-4.00 [facility] Comment on above: Performed By: #### G , BMP #### [address] [address] FT4on 09-05-2024 Free T4 [Mass/Vol] 1.13 ng/dL Normal 0.76-1.46 [facility] Comment on above: Performed By: #### Ingris , BMP #### [address] [address] LABORATORYOrdered By: Wisam Perez on 09-05-2024 Albumin [...] calculated value from Hemoglobin A1C and 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 of 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 average blood glucose [...] 09-05-2024 Cholesterol [Mass/Vol] 174 mg/dL Normal 0-200 [facility] Comment on above: Result Comment: Chol esterol Reference Interval: Less than 200 Desirable 200-239 Borderline high risk 240 and above High risk Performed By: #### G FR, BMP #### [address] [address] Cholesterol in HDL [Mass/Vol] 43 mg/dL Normal 40-60 [facility] Comment on above: Performed By: #### G FR, BMP #### [address] [address] Cholesterol in LDL [Mass/Vol] 115 mg/dL Normal 0-130 [facility] Comment on above: Performed By: #### G FR, BMP #### [address] [address] Triglyceride [Mass/Vol] 80 mg/dL Normal 0-150 [facility] Comment on above: Result Comment: Trig lyceride Reference Interval: Less than 150 Normal 150-199 Borderline high risk 200-499 High risk 500 or higher Very high risk Performed By: #### G FR, BMP #### [address] [address] MALBRon 09-05-2024 U Creatinine 79.8 mg/dL Normal [facility] Comment on above: Performed By: #### G , BMP #### [address] [address] U Microalb 200 mcg/dL Normal [facility] Comment on above: Performed By: #### G , BMP #### [address] [address] U Ratio Alb/Cre 2 mcg/mg Normal 0-30 [facility] Comment on above: Performed By: #### Ingris YATES, BMP #### [address] [address] TSHon 09-05-2024 TSH Qn 1.76 m[IU]/L Normal 0.36-3.74 [facility] Comment on above: Performed By: #### Ingris YATES, BMP #### [address] [address] VIDHon 09-05-2024 Vit. D 25-Hydroxy 35.4 ng/mL Normal [facility] Comment on above: Result Comment: Inte rpretive Values Based on Total 25(OH) Vitamin D: Deficient <20 ng/mL Insufficient 20 - <30 ng/mL Sufficient 30-100 ng/mL Performed By: #### Ingris YATES, BMP #### [address] [address] [place] MAMMOGRAM SCREENING BILAT ERAL W/TOMOon 08-31-2024 MA MAMMOGRAM SCREENING BILATERAL W/NATO ORIGINAL FROM: [address] [address] PROCEDURE FOR: RAGHAV GREGORY [address] [place] [id number] Home: PID#: [id number] Exam#: [id number] : 1950 Age: 74 TO: MATHIEU ROLAND DO [address] [place] [address] Fax: NO FAX EXAMINATION: SCREENING DIGITAL BILATERAL [...] screening with annual mammograms is recommended. [facility] risk calculations, generated with the [...] addition to annual mammographic screening per the [employer]. BIRADS: BI-RADS: 2: Benign RECALL: 1 year screening RECALL TYPE: mammo LETTER SENT: Normal BI-RADS 1 and 2 Interpreted by: Eder Victoria MD Preliminary Report By: Eder Victoria MD Electronically signed By Eder Victoria MD Dictated Date: 08/31/2024 5:04:35 PM Prelim Date: 08/31/2024 5:06:44 PM Sign Date: 08/31/2024 5:06:44 PM Ordering Provider: MATHIEU ROLAND Wrecker Driver: STACI QUIROS RT(R)(CT) letter sent: Normal BI-RADS 1 and 2 Mammogram BI-RADS: 2 Benign Normal [facility] BD BONE DENSITY DEXA AXIAL S EDDIEon 08-30-2024 BD BONE DENSITY DEXA AXIAL SKELETON ORIGINAL EXAMINATION: BONE DENSITOMETRY 08/30/2024 6:00 am TECHNIQUE: A bone density dual x-ray absorptiometry (DEXA) scan was performed of the spine and left hip on a [employer] system. COMPARISON: 06/02/2022 HISTORY: ORDERING SYSTEM PROVIDED [...] 08/30/2024 11:29:37 AM Ordering Provider: MATHIEU ROLAND [facility] CT HEAD OR BRAIN W/O CONTRAS [...] 08/29/2024 2:35:35 PM Ordering Provider: MATHIEU ROLAND [facility] DRUG TOX MONITORING 4 W/CONF , URINEon 03-21-2024 Alphahydroxyalprazolam 298 ng/mL High <25 [facility] Comment on above: Order Comment: FASTI NG: UNKNOWN Result Comment: See Note 1 Performed By: #### 9 1484 #### [facility] of [address], [address] [place] [address] Reimbursement Specialist: Duncan Mccormack MD Alphahydroxymidazolam Negative Normal <[address] [facility] Comment on above: Order Comment: FASTI NG: UNKNOWN Result Comment: See Note 1 Performed By: #### 9 1484 #### [facility] [place] [address] Reimbursement Specialist: Duncan Mccormack MD Alphahydroxytriazolam Negative Normal <[address] [facility] Comment on above: Order Comment: FASTI NG: UNKNOWN Result Comment: See Note 1 Performed By: #### 9 1484 #### [facility] [place] [address] Reimbursement Specialist: Duncan Mccormack MD Aminoclonazepam Negative Normal <25 [facility] Comment on above: Order Comment: FASTI NG: UNKNOWN Result Comment: See Note 1 Performed By: #### 9 1484 #### [facility] [place] [address] Reimbursement Specialist: Duncan Mccormack MD Amphetamines Negative Normal <500 [facility] Comment on above: Order Comment: FASTI NG: UNKNOWN Performed By: #### 9 1484 #### [facility] [place] [address] Reimbursement Specialist: Duncan Mccormack MD Barbiturates Negative Normal <300 [facility] Comment on above: Order Comment: FASTI NG: UNKNOWN Performed By: #### 9 1484 #### [facility] [place] [address] Reimbursement Specialist: Duncan Mccormack MD Benzodiazepines Positive Abnormal <100 [facility] Comment on above: Order Comment: FASTI NG: UNKNOWN Performed By: #### 9 1484 #### [facility] of [address], [address] [place] [address] Reimbursement Specialist: Duncan Mccormack MD Buprenorphine Negative Normal <5 [facility] Comment on above: Order Comment: FASTI NG: UNKNOWN Performed By: #### 9 1484 #### [facility] of [address], [address] [place] [address] Reimbursement Specialist: Duncan Mccormack MD Cocaine Metabolite Negative Normal <150 [facility] Comment on above: Order Comment: FASTI NG: UNKNOWN Performed By: #### 9 1484 #### [facility] of [address], [address] [place] [address] Reimbursement Specialist: Duncan Mccormack MD Codeine Negative Normal <50 [facility] Comment on above: Order Comment: FASTI NG: UNKNOWN Result Comment: See Note 1 Performed By: #### 9 1484 #### [facility] [address], [address] [place] [address] Reimbursement Specialist: Duncan Mccormack MD COMMENT Normal [facility] Comment on above: Order Comment: FASTI NG: UNKNOWN Result Comment: See Note 2 Note 1 This test was developed and its analytical performance characteristics have been determined by [facility]. It has not been cleared or approved [...] interpreting these drug results, please contact a [facility] Toxicology Specialist: [phone] ( ), M-F, 8am-6pm EST. Performed By: #### 9 1484 #### [facility] of [address], [address] [place] [address] Reimbursement Specialist: Duncan Mccormack MD Heroin Metabolite Negative Normal <10 [facility] Comment on above: Order Comment: FASTI NG: UNKNOWN Performed By: #### 9 1484 #### [facility] of [address], [address] [place] [address] Reimbursement Specialist: Duncan Mccormack MD Hydrocodone 689 ng/mL High <50 [facility] Comment on above: Order Comment: FASTI NG: UNKNOWN Result Comment: See Note 1 Performed By: #### 9 1484 #### [facility] [place] [address] Reimbursement Specialist: Duncan Mccormack MD Hydromorphone 187 ng/mL High <50 [facility] Comment on above: Order Comment: FASTI NG: UNKNOWN Result Comment: See Note 1 Performed By: #### 9 1484 #### [facility] [place] [address] Reimbursement Specialist: Duncan Mccormack MD Hydroxyethylflurazepam Negative Normal <50 [facility] Comment on above: Order Comment: FASTI NG: UNKNOWN Result Comment: See Note 1 Performed By: #### 9 1484 #### [facility] [place] [address] Reimbursement Specialist: Duncan Mccormack MD Lorazepam Negative Normal <50 [facility] Comment on above: Order Comment: FASTI NG: UNKNOWN Result Comment: See Note 1 Performed By: #### 9 1484 #### [facility] [place] [address] Reimbursement Specialist: Duncan Mccormack MD Marijuana Metabolite 20 Negative Normal <20 [facility] Comment on above: Order Comment: FASTI NG: UNKNOWN Performed By: #### 9 1484 #### [facility] [place] [address] Reimbursement Specialist: Duncan Mccormack MD Methadone Metabolite Negative Normal <100 [facility] Comment on above: Order Comment: FASTI NG: UNKNOWN Performed By: #### 9 1484 #### [facility] [place] [address] Reimbursement Specialist: Duncan Mccormack MD Morphine Negative Normal <50 [facility] Comment on above: Order Comment: FASTI NG: UNKNOWN Result Comment: See Note 1 Performed By: #### 9 1484 #### [facility] of [address], [address] [place], [place] [address] Reimbursement Specialist: Duncan Mccormack MD Nordiazepam Negative Normal <50 [facility] Comment on above: Order Comment: FASTI NG: UNKNOWN Result Comment: See Note 1 Performed By: #### 9 1484 #### [facility] of [address], [address] [place] [address] Reimbursement Specialist: Duncan Mccormack MD Norhydrocodone 1360 ng/mL High <50 [facility] Comment on above: Order Comment: FASTI NG: UNKNOWN Result Comment: See Note 1 Performed By: #### 9 1484 #### [facility] of [address], [address] [place] [address] Reimbursement Specialist: Duncan Mccormack MD Opiates Positive Abnormal <100 [facility] Comment on above: Order Comment: FASTI NG: UNKNOWN Performed By: #### 9 1484 #### [facility] of [address], [address] [place], [place] [address] Reimbursement Specialist: Duncan Mccormack MD Oxazepam Negative Normal <50 [facility] Comment on above: Order Comment: FASTI NG: UNKNOWN Result Comment: See Note 1 Performed By: #### 9 1484 #### [facility] of [address], [address] [place], [place] [address] Reimbursement Specialist: Duncan Mccormack MD Oxycodone Negative Normal <100 [facility] Comment on above: Order Comment: FASTI NG: UNKNOWN Performed By: #### 9 1484 #### [facility] of [address], [address] [place], [place] [address] Reimbursement Specialist: Duncan Mccormack MD Phencyclidine Negative Normal <25 [facility] Comment on above: Order Comment: FASTI NG: UNKNOWN Performed By: #### 9 1484 #### [facility] of [address], [address] [place], [place] [address] Reimbursement Specialist: Duncan Mccormack MD Temazepam Negative Normal <50 [facility] Comment on above: Order Comment: FASTI NG: UNKNOWN Result Comment: See Note 1 Performed By: #### 9 1484 #### [facility] [address] [facility], [address] [place] [address] Reimbursement Specialist: Duncan Mccormack MD .GFRon 02-29-2024 GFR 93 ml/min/1.73sqm Normal [facility] ([place]) Comment on above: Result Comment: GFR Population [...] VIDH, FT4, A1C, GFR, TSH #### [place] [address] [address] GFR Non- 77 ml/min/1.73sqm Normal [facility] ([place]) Comment on above: Result Comment: GFR Population [...] LIPID, VIDH, FT4, A1C, GFR, TSH #### [place] [address] A1Con 02-29-2024 HbA1c (Bld) [Mass fraction] 6.6 % High 4.3-6.4 [facility] ([place]) Comment on above: Performed By: #### C MP, LIPID, VIDH, FT4, A1C, GFR, TSH #### [address] [address] CMPon 02-29-2024 Albumin Level 3.7 G/dL Normal 3.4-4.8 [facility] ([place]) Comment on above: Performed By: #### C MP, LIPID, VIDH, FT4, A1C, GFR, TSH #### [address] [address] Albumin/Globulin [Mass ratio] 1.3 {ratio} Normal 1.1-2.5 [facility] ([place]) Comment on above: Performed By: #### C MP, LIPID, VIDH, FT4, A1C, GFR, TSH #### [address] [address] ALP [Catalytic activity/Vol] 54 U/L Normal 40-135 [facility] ([place] Comment on above: Performed By: #### C MP, LIPID, VIDH, FT4, A1C, GFR, TSH #### [address] [address] ALT [Catalytic activity/Vol] 29 U/L Normal 14-59 [facility] ([place]) Comment on above: Performed By: #### C MP, LIPID, VIDH, FT4, A1C, GFR, TSH #### [address] [address] AST [Catalytic activity/Vol] 30 U/L Normal 10-40 [facility] ([place]) Comment on above: Performed By: #### C MP, LIPID, VIDH, FT4, A1C, GFR, TSH #### [address] [address] Bili Total 0.6 mg/dL Normal 0.2-1.0 [facility] ([place]) Comment on above: Result Comment: Use of this assay is not recommended for patients undergoing treatment with eltrombopag due to the potential for falsely elevated results. Performed By: #### C MP, LIPID, VIDH, FT4, A1C, GFR, TSH #### [address] [address] BUN/Creatinine Ratio 16 ratio Normal 7-27 [facility] ([place]) Comment on above: Performed By: #### C MP, LIPID, VIDH, FT4, A1C, GFR, TSH #### [address] [address] Calcium [Mass/Vol] 9.2 mg/dL Normal 8.4-10.2 [facility] ([place]) Comment on above: Performed By: #### C MP, LIPID, VIDH, FT4, A1C, GFR, TSH #### [address] [address] Chloride [Moles/Vol] 95 mmol/L Low 98-107 [facility] ([place]) Comment on above: Performed By: #### C MP, LIPID, VIDH, FT4, A1C, GFR, TSH #### [address] [address] CO2 [Moles/Vol] 34 mmol/L High 23-31 [facility] ([place]) Comment on above: Performed By: #### C MP, LIPID, VIDH, FT4, A1C, GFR, TSH #### [address] [address] Creatinine [Mass/Vol] 0.74 mg/dL Normal 0.55-1.02 [facility] ([place]) Comment on above: Performed By: #### C MP, LIPID, VIDH, FT4, A1C, GFR, TSH #### [address] [address] Electrolyte Balance 5.0 mEq/L Normal 4.0-15.0 [facility] ([place]) Comment on above: Performed By: #### C MP, LIPID, VIDH, FT4, A1C, GFR, TSH #### [address] [address] Globulin 2.8 G/dL Normal [facility] ([place]) Comment on above: Performed By: #### C MP, LIPID, VIDH, FT4, A1C, GFR, TSH #### [address] [address] Glucose [Mass/Vol] 123 mg/dL High 83-110 [facility] ([place]) Comment on above: Performed By: #### C MP, LIPID, VIDH, FT4, A1C, GFR, TSH #### [place] [address] [address] Potassium [Moles/Vol] 3.7 mmol/L Normal 3.5-5.1 [facility] ([place]) Comment on above: Performed By: #### C MP, LIPID, VIDH, FT4, A1C, GFR, TSH #### [address] [address] Sodium [Moles/Vol] 134 mmol/L Low 136-145 [facility] ([place]) Comment on above: Performed By: #### C MP, LIPID, VIDH, FT4, A1C, GFR, TSH #### [address] [address] Total Protein 6.5 G/dL Normal 6.4-8.2 [facility] ([place]) Comment on above: Performed By: #### C MP, LIPID, VIDH, FT4, A1C, GFR, TSH #### [address] [address] Urea nitrogen [Mass/Vol] 12 mg/dL Normal 7-18 [facility] ([place]) Comment on above: Performed By: #### C MP, LIPID, VIDH, FT4, A1C, GFR, TSH #### [address] [address] FT3on 02-29-2024 Free T3 [Mass/Vol] 1.97 pg/mL Low 2.30-4.00 [facility] ([place]) Comment on above: Performed By: #### C MP, LIPID, VIDH, FT4, A1C, GFR, TSH #### [facility] [address] [place], [place] [address] FT4on 02-29-2024 Free T4 [Mass/Vol] 1.31 ng/dL Normal 0.76-1.46 [facility] ([place]) Comment on above: Performed By: #### C MP, LIPID, VIDH, FT4, A1C, GFR, TSH #### [address] [place], [place] [address] LABORATORYOrdered By: SYSTEM SYSTEM on 02-29-2024 25-hydroxyvitamin [...] 02-29-2024 Cholesterol [Mass/Vol] 121 mg/dL Normal 0-200 [facility] ([place]) Comment on above: Result Comment: Chol esterol Reference Interval: Less than 200 Desirable 200-239 Borderline high risk 240 and above High risk Performed By: #### C MP, LIPID, VIDH, FT4, A1C, GFR, TSH #### [address] [address] Cholesterol in HDL [Mass/Vol] 52 mg/dL Normal 40-60 [facility] ([place]) Comment on above: Performed By: #### C MP, LIPID, VIDH, FT4, A1C, GFR, TSH #### [place] [address] [place], [place] [address] Cholesterol in LDL [Mass/Vol] 50 mg/dL Normal 0-130 [facility] ([place]) Comment on above: Performed By: #### C MP, LIPID, VIDH, FT4, A1C, GFR, TSH #### [address] [address] Triglyceride [Mass/Vol] 96 mg/dL Normal 0-150 [facility] ([place]) Comment on above: Result Comment: Trig lyceride Reference Interval: Less than 150 Normal 150-199 Borderline high risk 200-499 High risk 500 or higher Very high risk Performed By: #### C MP, LIPID, VIDH, FT4, A1C, GFR, TSH #### [place] [address] [place], [place] [address] TSHon 02-29-2024 TSH Qn 1.68 m[IU]/L Normal 0.36-3.74 [facility] ([place]) Comment on above: Performed By: #### C MP, LIPID, VIDH, FT4, A1C, GFR, TSH #### [address] [address] US THYROIDon 02-29-2024 US THYROID ORIGINAL EXAMINATION: [...] 02/29/2024 2:06:10 PM Ordering Provider: MARQUISE Lacy [facility] ([place]) Cele 02-29-2024 Vit. D 25-Hydroxy 37.0 ng/mL Normal [facility] ([place]) Comment on above: Result Comment: Inte rpretive Values Based on Total 25(OH) Vitamin D: Deficient <20 ng/mL Insufficient 20 - <30 ng/mL Sufficient 30-100 ng/mL Performed By: #### C MP, LIPID, VIDH, FT4, A1C, GFR, TSH #### [address] [address] .GFRon 10-20-2023 GFR Non- 48 ml/min/1.73sqm Normal [facility] ([place]) Comment on above: Result Comment: GFR Population [...] LIPID, VIDH, FT4, A1C, GFR, TSH #### [address] [address] GFR 58 ml/min/1.73sqm Normal [facility] ([place]) Comment on above: Result Comment: GFR Population [...] LIPID, VIDH, FT4, A1C, GFR, TSH #### [address] [address] A1Con 10-20-2023 HbA1c (Bld) [Mass fraction] 6.9 % High 4.3-6.4 [facility] ([place]) Comment on above: Performed By: #### C MP, LIPID, VIDH, FT4, A1C, GFR, TSH #### [address] [address] CMPon 10-20-2023 Albumin Level 3.7 G/dL Normal 3.4-4.8 [facility] ([place]) Comment on above: Performed By: #### C MP, LIPID, VIDH, FT4, A1C, GFR, TSH #### [address] [address] Albumin/Globulin [Mass ratio] 1.2 {ratio} Normal 1.1-2.5 [facility] ([place]) Comment on above: Performed By: #### C MP, LIPID, VIDH, FT4, A1C, GFR, TSH #### [address] [address] ALP [Catalytic activity/Vol] 68 U/L Normal 40-135 [facility] ([place]) Comment on above: Performed By: #### C MP, LIPID, VIDH, FT4, A1C, GFR, TSH #### [address] [address] ALT [Catalytic activity/Vol] 14 U/L Normal 14-59 [facility] ([place]) Comment on above: Performed By: #### C MP, LIPID, VIDH, FT4, A1C, GFR, TSH #### [address] [address] AST [Catalytic activity/Vol] 11 U/L Normal 10-40 [facility] ([place]) Comment on above: Performed By: #### C MP, LIPID, VIDH, FT4, A1C, GFR, TSH #### [address] [address] Bili Total 0.5 mg/dL Normal 0.2-1.0 [facility] ([place]) Comment on above: Result Comment: Use of this assay is not recommended for patients undergoing treatment with eltrombopag due to the potential for falsely elevated results. Performed By: #### C MP, LIPID, VIDH, FT4, A1C, GFR, TSH #### [address] [address] BUN/Creatinine Ratio 15 ratio Normal 7-27 [facility] ([place]) Comment on above: Performed By: #### C MP, LIPID, VIDH, FT4, A1C, GFR, TSH #### [address] [address] Calcium [Mass/Vol] 9.5 mg/dL Normal 8.4-10.2 [facility] ([place]) Comment on above: Performed By: #### C MP, LIPID, VIDH, FT4, A1C, GFR, TSH #### [address] [address] Chloride [Moles/Vol] 97 mmol/L Low 98-107 [facility] ([place]) Comment on above: Performed By: #### C MP, LIPID, VIDH, FT4, A1C, GFR, TSH #### [address] [address] CO2 [Moles/Vol] 33 mmol/L High 23-31 [facility] ([place] Comment on above: Performed By: #### C MP, LIPID, VIDH, FT4, A1C, GFR, TSH #### [address] [address] Creatinine [Mass/Vol] 1.11 mg/dL High 0.55-1.02 [facility] ([place]) Comment on above: Performed By: #### C MP, LIPID, VIDH, FT4, A1C, GFR, TSH #### [address] [address] Electrolyte Balance 8.0 mEq/L Normal 4.0-15.0 [facility] ([place]) Comment on above: Performed By: #### C MP, LIPID, VIDH, FT4, A1C, GFR, TSH #### [address] [address] Globulin 3.2 G/dL Normal [facility] ([place] Comment on above: Performed By: #### C MP, LIPID, VIDH, FT4, A1C, GFR, TSH #### [address] [address] Glucose [Mass/Vol] 178 mg/dL High 83-110 [facility] ([place] Comment on above: Performed By: #### C MP, LIPID, VIDH, FT4, A1C, GFR, TSH #### [address] [address] Potassium [Moles/Vol] 3.5 mmol/L Normal 3.5-5.1 [facility] ([place]) Comment on above: Performed By: #### C MP, LIPID, VIDH, FT4, A1C, GFR, TSH #### [address] [address] Sodium [Moles/Vol] 138 mmol/L Normal 136-145 [facility] ([place] Comment on above: Performed By: #### C MP, LIPID, VIDH, FT4, A1C, GFR, TSH #### [address] [address] Total Protein 6.9 G/dL Normal 6.4-8.2 [facility] ([place] Comment on above: Performed By: #### C MP, LIPID, VIDH, FT4, A1C, GFR, TSH #### [address] [address] Urea nitrogen [Mass/Vol] 17 mg/dL Normal 7-18 [facility] ([place] Comment on above: Performed By: #### C MP, LIPID, VIDH, FT4, A1C, GFR, TSH #### [address] [address] FT4on 10-20-2023 Free T4 [Mass/Vol] 1.28 ng/dL Normal 0.76-1.46 [facility] ([place] Comment on above: Performed By: #### C MP, LIPID, VIDH, FT4, A1C, GFR, TSH #### [address] [address] LABORATORYOrdered By: Latonya Pendleton on 10-20-2023 Albumin [...] 10-20-2023 Cholesterol [Mass/Vol] 205 mg/dL High 0-200 [facility] ([place]) Comment on above: Result Comment: Chol esterol Reference Interval: Less than 200 Desirable 200-239 Borderline high risk 240 and above High risk Performed By: #### C MP, LIPID, VIDH, FT4, A1C, GFR, TSH #### [address] [address] Cholesterol in HDL [Mass/Vol] 46 mg/dL Normal 40-60 [facility] ([place] Comment on above: Performed By: #### C MP, LIPID, VIDH, FT4, A1C, GFR, TSH #### [address] [place], [place] [address] Cholesterol in LDL [Mass/Vol] 128 mg/dL Normal 0-130 [facility] ([place]) Comment on above: Performed By: #### C MP, LIPID, VIDH, FT4, A1C, GFR, TSH #### [address] [address] Triglyceride [Mass/Vol] 156 mg/dL High 0-150 [facility] ([place]) Comment on above: Result Comment: Trig lyceride Reference Interval: Less than 150 Normal 150-199 Borderline high risk 200-499 High risk 500 or higher Very high risk Performed By: #### C MP, LIPID, VIDH, FT4, A1C, GFR, TSH #### [address] [address] MALBRon 10-20-2023 U Creatinine 117.6 mg/dL High 28.0-117.0 [facility] ([place]) Comment on above: Performed By: #### C MP, LIPID, VIDH, FT4, A1C, GFR, TSH #### [address] [address] U Microalb 820 mcg/dL Normal [facility] ([place] Comment on above: Performed By: #### C MP, LIPID, VIDH, FT4, A1C, GFR, TSH #### [address] [address] U Ratio Alb/Cre 7 mcg/mg Normal 0-30 [facility] ([place] Comment on above: Performed By: #### C MP, LIPID, VIDH, FT4, A1C, GFR, TSH #### [address] [address] TSHon 10-20-2023 TSH Qn 2.90 m[IU]/L Normal 0.36-3.74 [facility] ([place]) Comment on above: Performed By: #### C MP, LIPID, VIDH, FT4, A1C, GFR, TSH #### [address] [address] VIDHon 10-20-2023 Vit. D 25-Hydroxy 43.8 ng/mL Normal [facility] ([place] Comment on above: Result Comment: Inte rpretive Values Based on Total 25([place]) Vitamin D: Deficient <20 ng/mL Insufficient 20 - <30 ng/mL Sufficient 30-100 ng/mL Performed By: #### C MP, LIPID, VIDH, FT4, A1C, GFR, TSH #### [address] [place], [place] [address] Emergency Department Summary on 08-22-2023 Emergency Department Summary [facility] Medical Records Department [address] [place] [address] Emergency Department Summary 08/22/23 MR#: [id number] Acct: [id number] Name: RAGHAV GREGORY Rep #: [id number] : 1950 73 From: Jean-Paul Suarez DO [...] but her children Urging her to come. [facility] Medical History Chronic ulcer of left heel [...] for pale (more content not included)... Normal [facility] MAMMOGRAM SCREENING BILAT ERAL W/TOMOon 08-21-2023 MA MAMMOGRAM SCREENING BILATERAL W/NATO ORIGINAL FROM: [address] [place] [address] PROCEDURE FOR: RAGHAV GandaraJevon BRI [address] [place] [id number] Home: PID#: [id number] Exam#: [id number] : 1950 Age: 73 TO: MATHIEU ROLAND DO [address] [place] [address] Fax: NO FAX EXAMINATION: SCREENING DIGITAL BILATERAL [...] addition to annual mammographic screening per the [employer]. 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[employer] letter sent: Probably Benign BI-RADS 3 Mammogram BI-RADS: 2 Benign Normal [facility] ([place] .GFRon 06-23-2023 GFR Non- 56 ml/min/1.73sqm Normal [facility] ([place] Comment on above: Result Comment: GFR Population [...] LIPID, VIDH, FT4, A1C, GFR, TSH #### [address] [address] GFR 68 ml/min/1.73sqm Normal [facility] ([place] Comment on above: Result Comment: GFR Population [...] LIPID, VIDH, FT4, A1C, GFR, TSH #### [address] [address] A1Con 06-23-2023 HbA1c (Bld) [Mass fraction] 6.4 % Normal 4.3-6.4 [facility] ([place] Comment on above: Performed By: #### C MP, LIPID, VIDH, FT4, A1C, GFR, TSH #### [address] [address] CMPon 06-23-2023 Albumin Level 3.7 G/dL Normal 3.4-4.8 [facility] ([place] Comment on above: Performed By: #### C MP, LIPID, VIDH, FT4, A1C, GFR, TSH #### [address] [address] Albumin/Globulin [Mass ratio] 1.2 {ratio} Normal 1.1-2.5 [facility] ([place] Comment on above: Performed By: #### C MP, LIPID, VIDH, FT4, A1C, GFR, TSH #### [address] [address] ALP [Catalytic activity/Vol] 77 U/L Normal 40-135 [facility] ([place] Comment on above: Performed By: #### C MP, LIPID, VIDH, FT4, A1C, GFR, TSH #### [address] [address] ALT [Catalytic activity/Vol] 15 U/L Normal 14-59 [facility] ([place] Comment on above: Performed By: #### C MP, LIPID, VIDH, FT4, A1C, GFR, TSH #### [address] [address] AST [Catalytic activity/Vol] 16 U/L Normal 10-40 [facility] ([place] Comment on above: Performed By: #### C MP, LIPID, VIDH, FT4, A1C, GFR, TSH #### [address] [address] Bili Total 0.4 mg/dL Normal 0.2-1.0 [facility] ([place]) Comment on above: Result Comment: Use of this assay is not recommended for patients undergoing treatment with eltrombopag due to the potential for falsely elevated results. Performed By: #### C MP, LIPID, VIDH, FT4, A1C, GFR, TSH #### [address] [address] BUN/Creatinine Ratio 11 ratio Normal 7-27 [facility] ([place]) Comment on above: Performed By: #### C MP, LIPID, VIDH, FT4, A1C, GFR, TSH #### [address] [address] Calcium [Mass/Vol] 8.9 mg/dL Normal 8.4-10.2 [facility] ([place] Comment on above: Performed By: #### C MP, LIPID, VIDH, FT4, A1C, GFR, TSH #### [address] [address] Chloride [Moles/Vol] 106 mmol/L Normal 98-107 [facility] ([place]) Comment on above: Performed By: #### C MP, LIPID, VIDH, FT4, A1C, GFR, TSH #### [address] [address] CO2 [Moles/Vol] 29 mmol/L Normal 23-31 [facility] ([place] Comment on above: Performed By: #### C MP, LIPID, VIDH, FT4, A1C, GFR, TSH #### [address] [address] Creatinine [Mass/Vol] 0.97 mg/dL Normal 0.55-1.02 [facility] ([place]) Comment on above: Performed By: #### C MP, LIPID, VIDH, FT4, A1C, GFR, TSH #### [address] [address] Electrolyte Balance 6.0 mEq/L Normal 4.0-15.0 [facility] ([place]) Comment on above: Performed By: #### C MP, LIPID, VIDH, FT4, A1C, GFR, TSH #### [address] [address] Globulin 3.1 G/dL Normal [facility] ([place] Comment on above: Performed By: #### C MP, LIPID, VIDH, FT4, A1C, GFR, TSH #### [address] [address] Glucose [Mass/Vol] 138 mg/dL High 83-110 [facility] ([place] Comment on above: Performed By: #### C MP, LIPID, VIDH, FT4, A1C, GFR, TSH #### [address] [address] Potassium [Moles/Vol] 5.1 mmol/L Normal 3.5-5.1 [facility] ([place]) Comment on above: Performed By: #### C MP, LIPID, VIDH, FT4, A1C, GFR, TSH #### [address] [address] Sodium [Moles/Vol] 141 mmol/L Normal 136-145 [facility] ([place] Comment on above: Performed By: #### C MP, LIPID, VIDH, FT4, A1C, GFR, TSH #### [address] [place], [place] [address] Total Protein 6.8 G/dL Normal 6.4-8.2 [facility] ([place] Comment on above: Performed By: #### C MP, LIPID, VIDH, FT4, A1C, GFR, TSH #### [address] [address] Urea nitrogen [Mass/Vol] 11 mg/dL Normal 7-18 [facility] ([place] Comment on above: Performed By: #### C MP, LIPID, VIDH, FT4, A1C, GFR, TSH #### [address] [address] FT3on 06-23-2023 Free T3 [Mass/Vol] 2.32 pg/mL Normal 2.30-4.00 [facility] ([place] Comment on above: Performed By: #### C MP, LIPID, VIDH, FT4, A1C, GFR, TSH #### [address] [address] HCVon 06-23-2023 Hep C Ab Non-Reactive Normal Non-Reactiv e [facility] ([place] Comment on above: Performed By: #### H CV1 #### [address] [address] Hep C Ab Int Normal [facility] ([place] Comment on above: Result Comment: Nonr eactive: Samples with a value < 0.80 are considered nonreactive (negative) for antibodies to HCV. A negative test result does not exclude the possibility of exposure to or infection with HCV. HCV antibodies may be undetectable in some stages of the infection and in some clinical conditions. See Interp Performed By: #### H CV1 #### [address] [address] LIPIDon 06-23-2023 Cholesterol [Mass/Vol] 178 mg/dL Normal 0-200 [facility] ([place]) Comment on above: Result Comment: Chol esterol Reference Interval: Less than 200 Desirable 200-239 Borderline high risk 240 and above High risk Performed By: #### C MP, LIPID, VIDH, FT4, A1C, GFR, TSH #### [address] [address] Cholesterol in HDL [Mass/Vol] 43 mg/dL Normal 40-60 [facility] ([place] Comment on above: Performed By: #### C MP, LIPID, VIDH, FT4, A1C, GFR, TSH #### [address] [address] Cholesterol in LDL [Mass/Vol] 110 mg/dL Normal 0-130 [facility] ([place] Comment on above: Performed By: #### C MP, LIPID, VIDH, FT4, A1C, GFR, TSH #### [address] [address] Triglyceride [Mass/Vol] 123 mg/dL Normal 0-150 A [facility] ([place]) Comment on above: Result Comment: Trig lyceride Reference Interval: Less than 150 Normal 150-199 Borderline high risk 200-499 High risk 500 or higher Very high risk Performed By: #### C MP, LIPID, VIDH, FT4, A1C, GFR, TSH #### [address] [address] TSHon 06-23-2023 TSH Qn 1.77 m[IU]/L Normal 0.36-3.74 [facility] ([place] Comment on above: Performed By: #### C MP, LIPID, VIDH, FT4, A1C, GFR, TSH #### [address] [address] VIDHon 06-23-2023 Vit. D 25-Hydroxy 29.9 ng/mL Normal [facility] ([place] Comment on above: Result Comment: Inte rpretive Values Based on Total 25([place]) Vitamin D: Deficient <20 ng/mL Insufficient 20 - <30 ng/mL Sufficient 30-100 ng/mL Performed By: #### C MP, LIPID, VIDH, FT4, A1C, GFR, TSH #### [address] [address] LABORATORYOrdered By: Keri Goldstein on 02-12-2023 Albumin [...] Schmidt on 10-31-2022 Wound Culture Staphylococcus aureus [facility] Wound Cultureon 10-31-2022 WC Staphylococcus aureu s [...] S Vancomycin Islt JACOB <=0.5 S Normal [facility] Comment on above: Performed By: #### M 100.3000, M1.1999 #### [facility] Laboratory [address] [place], [place], [address] Gram Stainon 10-30-2022 GS Gram Stain Rare Epithelial cells Rare White Blood Cells Rare Gram positive cocci Normal [facility] Comment on above: Performed By: #### M 100.3000, .1999 #### [facility] Laboratory [address] [place], [place], [address] Gram stain for investigation of transfusion reactionOrdered By: Dr. Schmidt on 10-30-2022 Microscopic observation Gram stain Nom (Unsp spec) [facility] LABORATORYOrdered By: SYSTEM SYSTEM on 09-25-2022 Albumin [...] W/Diff, Automatedon 08-31 PATH REV Reviewed Normal [facility] Comment on above: Result Comment: Neut rophilic leukocytosis. Polycythemia Clinical correlation necessary. Eliezer Johns M.D. 09/17/22 AMENDED REPORT 09/17/22 0939 PATH REV previously reported as: December magy Performed By: #### L 500.3400, L501.4020, L501.2450, L100.0100, L500.2500 #### [facility] Laboratory [address] [place], [address] 12 Lead EKGon 09-16-2022 12 Lead EKG [facility] Cardiovascular Services [address] [place] [address] 12 Lead EKG 09/15/22 2350 MR#: [id number] Acct: [id number] Name: RAGHAV GREGORY Rep #: [id number] : 1950 72 From: Jonny Lynch MD [...] ECG Confirmed by MANDY KEY, JONNY ([id number]), technical editor MUSA NICOLE ([id number]) on 09/18/2022 8:31:52 AM Referred By: SHE Confirmed By:JONNY LYNCH MD 09/18/22830 Date Jonny Lynch MD CC: Dr. Whitney Ott MD; Dr. Mathieu Roland DO Signed Normal [facility] Abdomen/Pelvis without Conto n 09-16-2022 Abdomen/Pelvis without Cont [facility] Imaging Services [address] [place] [address] Abdomen/Pelvis without Cont MR#: [id number] Acct: [id number] Name: RAGHAV GREGORY Rep #: [id number] : 1950 F 72 From: Neftali Verde PCP: Dr. Mathieu Roland DO Status: REG ER Study: Abdomen/Pelvis without Cont Date of Exam: 08/31 03/22 Exam# [id number] Ordering Dr: Whitney Ott MD STUDY: CT [...] EST Reading Location ID and State: [address] [place] [address] Tel , Service support , CC: Dr. Whitney Ott MD; Dr. Mathieu Roland DO Bow Machine Operator: Signed Normal [facility] Basic Metabolic Profile (BMP )on 09-16-2022 BUN/CRE 9.8 RATIO Low 10-20 [facility] Comment on above: Order Comment: 'TROP ' Serial specimen #1, #2 or #3: 1 Performed By: #### L 500.3400, L501.4020, L501.2450, L100.0100, L500.2500 #### [facility] Laboratory [address] [place], [place], [id number] CA,Total 9.3 mg/dL Normal 8.5-10.1 [facility] Comment on above: Order Comment: 'TROP ' Serial specimen #1, #2 or #3: 1 Performed By: #### L 500.3400, L501.4020, L501.2450, L100.0100, L500.2500 #### [facility] Laboratory [address] [place], [address] Chloride [Moles/Vol] 105 mmol/L Normal 98-107 [facility] Comment on above: Order Comment: 'TROP ' Serial specimen #1, #2 or #3: 1 Performed By: #### L 500.3400, L501.4020, L501.2450, L100.0100, L500.2500 #### [facility] Laboratory [address] [place], [address] CO2 [Moles/Vol] 20.0 mmol/L Low 21.0-32.0 [facility] Comment on above: Order Comment: 'TROP ' Serial specimen #1, #2 or #3: 1 Performed By: #### L 500.3400, L501.4020, L501.2450, L100.0100, L500.2500 #### [facility] Laboratory [address] [place], [address] Creatinine [Mass/Vol] 1.23 mg/dL High 0.55-1.02 [facility] Comment on above: Order Comment: 'TROP ' Serial specimen #1, #2 or #3: 1 Result Comment: The validity of the calculated GFR GFRAA in patients over 70 years has not been determined. Clinical correlation is essential. Performed By: #### L 500.3400, L501.4020, L501.2450, L100.0100, L500.2500 #### [facility] Laboratory [address] [place], [address] ECRCL 34.65 ml/min Normal [facility] Comment on above: Order Comment: 'TROP ' Serial specimen #1, #2 or #3: 1 Performed By: #### L 500.3400, L501.4020, L501.2450, L100.0100, L500.2500 #### [facility] Laboratory [address] [place], [address] EST GFR - AA 55 mL/min Low >60 [facility] Comment on above: Order Comment: 'TROP ' Serial specimen #1, #2 or #3: 1 Result Comment: Afri can [place] GFR Calc Performed By: #### L 500.3400, L501.4020, L501.2450, L100.0100, L500.2500 #### [facility] Laboratory [address] [place], [address] GAP 13 Normal 5-15 [facility] Comment on above: Order Comment: 'TROP ' Serial specimen #1, #2 or #3: 1 Performed By: #### L 500.3400, L501.4020, L501.2450, L100.0100, L500.2500 #### [facility] Laboratory [address] [place], [address] GFR/1.73 sq M.predicted among non-blacks MDRD (S/P/Bld) [Vol rate/Area] 45 mL/min/{1.73_m2} Low >60 [facility] Comment on above: Order Comment: 'TROP ' Serial specimen #1, #2 or #3: 1 Result Comment: Non- GFR Calc Performed By: #### L 500.3400, L501.4020, L501.2450, L100.0100, L500.2500 #### [facility] Laboratory [address] [place], [address] Glucose [Mass/Vol] 249 mg/dL High 74-106 [facility] Comment on above: Order Comment: 'TROP ' Serial specimen #1, #2 or #3: 1 Result Comment: Gluc ose result greater than or equal to 200 mg/dL suggests DIABETES MELLITUS per A.D.A. criteria. Performed By: #### L 500.3400, L501.4020, L501.2450, L100.0100, L500.2500 #### [facility] Laboratory [address] [place], [address] Potassium [Moles/Vol] 5.1 mmol/L Normal 3.5-5.1 [facility] Comment on above: Order Comment: 'TROP ' Serial specimen #1, #2 or #3: 1 Result Comment: Mode rate Hemolysis, Result may be falsely increased. Performed By: #### L 500.3400, L501.4020, L501.2450, L100.0100, L500.2500 #### [facility] Laboratory [address] [place], [address] Sodium [Moles/Vol] 138 mmol/L Normal 136-145 [facility] Comment on above: Order Comment: 'TROP ' Serial specimen #1, #2 or #3: 1 Performed By: #### L 500.3400, L501.4020, L501.2450, L100.0100, L500.2500 #### [facility] Laboratory [address] [place], [address] Urea nitrogen [Mass/Vol] 12 mg/dL Normal 7-18 [facility] Comment on above: Order Comment: 'TROP ' Serial specimen #1, #2 or #3: 1 Performed By: #### L 500.3400, L501.4020, L501.2450, L100.0100, L500.2500 #### [facility] Laboratory [address] [place], [address] Emergency Department Summary on 09-16-2022 Emergency Department Summary [facility] Medical Records Department [address] [place] [address] Emergency Department Summary 09/15/22 MR#: [id number] Acct: [id number] Name: RAGHAV GREGORY Rep #: [id number] : 1950 72 From: Whitney Ott MD [...] in the right side of her abdomen. [facility] Medical History Chronic ulcer of left heel [...] status erica (more content not included)... Normal [facility] L501.4020on 09-16-2022 TROPONIN-I HS 10 pg/mL Normal 3.0-54.0 [facility] Comment on above: Order Comment: 'TROP ' Serial specimen #1, #2 or #3: 1 Result Comment: Suleiman sinha Note: New Test Units and Gender Specific Reference Ranges. For more information see Policy Stat Procedure [place] High Sensitivity Troponin (TNIH) and attachments. Performed By: #### L 500.3400, L501.4020, L501.2450, L100.0100, L500.2500 ####[facility] [address] [place], [address] Lipaseon 09-16-2022 Lipase [Catalytic activity/Vol] 42 U/L Low 73-393 [facility] Comment on above: Order Comment: 'TROP ' Serial specimen #1, #2 or #3: 1 Performed By: #### L 500.3400, L501.4020, L501.2450, L100.0100, L500.2500 #### [facility] Laboratory [address] [place], [address] Liver Profileon 09-16-2022 Albumin [Mass/Vol] 3.7 g/dL Normal 3.2-5.0 [facility] Comment on above: Order Comment: 'TROP ' Serial specimen #1, #2 or #3: 1 Performed By: #### L 500.3400, L501.4020, L501.2450, L100.0100, L500.2500 #### [facility] Laboratory [address] [place], [address] ALK P 100 U/L Normal 45-117 [facility] Comment on above: Order Comment: 'TROP ' Serial specimen #1, #2 or #3: 1 Performed By: #### L 500.3400, L501.4020, L501.2450, L100.0100, L500.2500 #### [facility] [address] [place], [address] ALT [Catalytic activity/Vol] 17 U/L Normal 13-56 [facility] Comment on above: Order Comment: 'TROP ' Serial specimen #1, #2 or #3: 1 Performed By: #### L 500.3400, L501.4020, L501.2450, L100.0100, L500.2500 #### [facility] [address] [place], [address] AST [Catalytic activity/Vol] 21 U/L Normal 15-37 [facility] Comment on above: Order Comment: 'TROP ' Serial specimen #1, #2 or #3: 1 Result Comment: Mode rate Hemolysis, Result may be falsely increased. Performed By: #### L 500.3400, L501.4020, L501.2450, L100.0100, L500.2500 #### [facility] [address] [place], [address] Bilirubin [Mass/Vol] 0.60 mg/dL Normal 0.20-1.00 [facility] Comment on above: Order Comment: 'TROP ' Serial specimen #1, #2 or #3: 1 Result Comment: For patients on eltrombopag therapy, use of Dimension [place] TBIL is not recommended. Performed By: #### L 500.3400, L501.4020, L501.2450, L100.0100, L500.2500 #### [facility] [address] [place], [address] Bilirubin.direct [Mass/Vol] 0.07 mg/dL Normal 0.00-0.30 [facility] Comment on above: Order Comment: 'TROP ' Serial specimen #1, #2 or #3: 1 Performed By: #### L 500.3400, L501.4020, L501.2450, L100.0100, L500.2500 #### [facility] [address] [place], [address] Globulin (S) [Mass/Vol] 3.9 g/dL Normal 2.2-4.2 [facility] Comment on above: Order Comment: 'TROP ' Serial specimen #1, #2 or #3: 1 Performed By: #### L 500.3400, L501.4020, L501.2450, L100.0100, L500.2500 #### [facility] [address] [place], [address] T PROT 7.6 g/dL Normal 6.4-8.2 [facility] Comment on above: Order Comment: 'TROP ' Serial specimen #1, #2 or #3: 1 Performed By: #### L 500.3400, L501.4020, L501.2450, L100.0100, L500.2500 #### [facility] [address] [place], [address] Absolute lymphocyte countOrd ered By: Dr. Ott on 09-15-2022 Lymphocytes Auto (Unsp spec) [#/Vol] 1.07 10*3/uL 0.83-4.51 [facility] Basophil percentageOrdered B y: Dr. Ott on 09-15-2022 Basophils/100 WBC (Bld) 0.4 % 0-1 [facility] Bilirubin [Mass/Vol] 0.60 mg/dL 0.20-1.00 [facility] Comment on above: For patients on eltr ombopag therapy, use of Dimension [place] TBIL is not recommended. Chloride [Moles/Vol] 105 mmol/L 98-107 [facility] Eosinophils/100 WBC (Bld) 1.1 % 0-5 [facility] Glucose [Mass/Vol] 249 mg/dL 74-106 [facility] Comment on above: Glucose result great er than or equal to 200 mg/dLsuggests DIABETES MELLITUS per A.D.A. criteria. Neutrophils (Bld) [#/Vol] 10.2 10*3/uL 2.0-7.7 [facility] Neutrophils/100 WBC (Bld) 84.7 % 47-70 [facility] Potassium [Moles/Vol] 5.1 mmol/L 3.5-5.1 [facility] Comment on above: Moderate Hemolysis, Result may be falsely increased. Protein [Mass/Vol] 7.6 g/dL 6.4-8.2 [facility] Sodium [Moles/Vol] 138 mmol/L 136-145 [facility] WBC (Bld) [#/Vol] 12.0 10*3/uL 4.4-11.0 [facility] Blood erythrocytes count (nu mber/volume)Ordered By: Dr. Ott on 09-15-2022 RBC (Bld) [#/Vol] 6.09 10*6/uL 4.2-5.4 [facility] Blood hemoglobin measurement (mass/volume)Ordered By: Dr. Ott on 09-15-2022 Hemoglobin (Bld) [Mass/Vol] 18.1 g/dL 12.0-15.0 [facility] Comment on above: CRITICAL VALUE VERIF IED. CALLED TO Tesha SHEA RN ER/ [id number] [address].RESULTS READ BACK BY SAME. Blood lymphocytes/100 leukoc ytesOrdered By: Dr. Ott on 09-15-2022 Lymphocytes/100 WBC (Bld) 8.9 % 19-41 [facility] Blood monocytes/100 leukocyt esOrdered By: [address] Ott on 09-15-2022 Monocytes/100 WBC (Bld) 4.3 % 0-10 [facility] Blood platelet mean volumeOr dered By: Dr. Ott on 09-15-2022 Platelet mean volume (Bld) [Entitic vol] 10.6 fL 6.2-12.0 [facility] Determination of erythrocyte mean corpuscular volume (MCV)Ordered By: Dr. Ott on 09-15-2022 MCV (RBC) [Entitic vol] 93.1 fL 81-99 [facility] Direct bilirubinOrdered By: Dr. Ott on 09-15-2022 Bilirubin.direct [Mass/Vol] 0.07 mg/dL 0.00-0.30 [facility] Hematocrit Auto (Bld) [Volum e fraction]Ordered By: Dr. Ott on 09-15-2022 Hematocrit (Bld) [Volume fraction] 56.7 % 37-47 [facility] Laboratory - Chemistry and C hemistry - challengeOrdered By: Dr. Ott on 09-15-2022 ALP [Catalytic activity/Vol] 100 U/L 45-117 [facility] ALT [Catalytic activity/Vol] 17 U/L 13-56 [facility] CO2 [Moles/Vol] 20.0 mmol/L 21.0-32.0 [facility] Globulin (S) [Mass/Vol] 3.9 g/dL 2.2-4.2 [facility] Lipase [Catalytic activity/Vol] 42 U/L 73-393 [facility] Urea nitrogen/Creatinine [Mass ratio] 9.8 mg/mg 10-20 [facility] Laboratory - Hematology and Cell countsOrdered By: Dr. Ott on 09-15-2022 Erythrocyte distribution width (RBC) [Entitic vol] 44.8 fL 35.1-43.9 [facility] Erythrocyte distribution width (RBC) [Ratio] 13.2 % 11.6-14.6 [facility] Immature granulocytes/100 WBC (Bld) 0.600 % 0.0-0.9 [facility] Comment on above: IG% - Immature Granu locytes (promyelocytes, myelocytes and metamyelocytes) > 1% indicates that a LEFT SHIFT is Present. MCH (RBC) [Entitic mass] 29.7 pg 27.0-32.0 [facility] Nucleated RBC/100 WBC (Bld) [Ratio] 0 % 0-5 [facility] MCHC Auto (RBC) [Mass/Vol]Or dered By: Dr. Ott on 09-15-2022 MCHC (RBC) [Mass/Vol] 31.9 g/dL 32-36 [facility] No Panel InformationOrdered By: Dr. Ott on 09-15-2022 Estimated Creatinine Clearance Calc 34.65 ml/min [facility] Estimated GFR (MDRD) Amer 55 mL/min >60 [facility] Comment on above: GFR Calc Estimated GFR (MDRD) Non-Af Amer 45 mL/min >60 [facility] Comment on above: Non- GFR Calc Troponin I High Sensitivity 10 pg/mL 3.0-54.0 [facility] Comment on above: Please Note: [place] t Units and Gender Specific Reference Ranges. For more information see Policy Stat Procedure [place] High Sensitivity Troponin (TNIH) and attachments. Platelets bldOrdered By: Dr. Ott on 09-15-2022 Platelets (Bld) [#/Vol] 216 10*3/uL 150-450 [facility] Review by pathologistOrdered By: Dr. Ott on 09-15-2022 Pathologist review [place] (Unsp spec) [Interp] Suzanna bhatti [facility] Pathologist review [place] (Unsp spec) [Interp] Reviewed [facility] Comment on above: Previous reported re sult: Suzanna bhatti Edited by: RGOBRETT on 09/17/22:0939Neutrophilic leukocytosis.Polycythemia Clinical correlation necessary.Eliezer Johns M.D. 09/17/22 AMENDED REPORT 09/17/22 0939 PATH REV previously reported as: Suzanna bhatti Serum or plasma albumin pavel urement (mass/volume)Ordered By: Dr. Ott on 09-15-2022 Albumin [Mass/Vol] 3.7 g/dL 3.2-5.0 [facility] Serum or plasma calcium pavel urement (mass/volume)Ordered By: Dr. Ott on 09-15-2022 Calcium [Mass/Vol] 9.3 mg/dL 8.5-10.1 [facility] Serum or plasma creatinine m easurement (mass/volume)Ordered By: Dr. Ott on 09-15-2022 Creatinine [Mass/Vol] 1.23 mg/dL 0.55-1.02 [facility] Comment on above: The validity of the calculated GFR & GFRAA in patients over 70 years has not been determined. Clinical correlation is essential. Serum or plasma urea nitroge n measurement (mass/volume)Ordered By: Dr. Ott on 09-15-2022 Urea nitrogen [Mass/Vol] 12 mg/dL 7-18 [facility] Thin prep Papanicolaou smear with manual screeningOrdered By: Dr. Ott on 09-15-2022 Thin prep Papanicolaou smear with manual screening 21 U/L 15-37 [facility] Comment on above: Moderate Hemolysis, Result may be falsely increased. Thin prep Papanicolaou smear with manual screening 13 01-12 [facility] LABORATORYOrdered By: Favian Contreras on 03-05-2022 Albumin [...] Auto (Unsp spec) [#/Vol] 1.62 10*3/uL 0.83-4.51 [facility] Work Phone: Basophil percentageon 2021 Basophils/100 WBC (Bld) 0.5 % 0-1 [facility] Work Phone: [phone] Chloride [Moles/Vol] 100 mmol/L 98-107 [facility] Work Phone: [phone] Eosinophils/100 WBC (Bld) 1.7 % 0-5 [facility] Work Phone: [phone] Glucose [Mass/Vol] 174 mg/dL 74-106 [facility] Work Phone: Comment on above: Fasting Glucose resu lt greater than or equal to 126 mg/dL suggests DIABETES MELLITUS per A.D.A. criteria. Neutrophils (Bld) [#/Vol] 5.8 10*3/uL 2.0-7.7 [facility] Work Phone: Neutrophils/100 WBC (Bld) 70.5 % 47-70 [facility] Work Phone: Potassium [Moles/Vol] 4.1 mmol/L 3.5-5.1 [facility] Work Phone: Sodium [Moles/Vol] 136 mmol/L 136-145 [facility] Work Phone: WBC (Bld) [#/Vol] 8.2 10*3/uL 4.4-11.0 [facility] Work Phone: Blood erythrocytes count (nu mber/volume)on 01-18-2022 RBC (Bld) [#/Vol] 4.01 10*6/uL 4.2-5.4 [facility] Work Phone: Blood hemoglobin measurement (mass/volume)on 01-18-2022 Hemoglobin (Bld) [Mass/Vol] 11.8 g/dL 12.0-15.0 [facility] Work Phone: Blood lymphocytes/100 leukoc yteson 01-18-2022 Lymphocytes/100 WBC (Bld) 19.7 % 19-41 [facility] Work Phone: Blood monocytes/100 leukocyt eson 01-18-2022 Monocytes/100 WBC (Bld) 6.4 % 0-10 [facility] Work Phone: Blood platelet mean volumeon 01-18-2022 Platelet mean volume (Bld) [Entitic vol] 10.1 fL 6.2-12.0 [facility] Work Phone: Determination of erythrocyte mean corpuscular volume (MCV)on 01-18-2022 MCV (RBC) [Entitic vol] 92.5 fL 81-99 [facility] Work Phone: Glucose Glucometer (BldC) [M ass/Vol]on 01-18-2022 Glucose [Mass/Vol] 243 mg/dL 74-106 [facility] Work Phone: Comment on above: MANAGEMENT OF PATIEN T CARE PER NURSING PROTOCOL Hematocrit Auto (Bld) [Volum e fraction]on 01-18-2022 Hematocrit (Bld) [Volume fraction] 37.1 % 37-47 [facility] Work Phone: Laboratory - Chemistry and C hemistry - challengeon 01-18-2022 CO2 [Moles/Vol] 32.0 mmol/L 21.0-32.0 [facility] Work Phone: Urea nitrogen/Creatinine [Mass ratio] 23.8 mg/mg 10-20 [facility] Work Phone: Laboratory - Hematology and Cell countson 01-18-2022 Erythrocyte distribution width (RBC) [Entitic vol] 42.2 fL 35.1-43.9 [facility] Work Phone: Erythrocyte distribution width (RBC) [Ratio] 12.5 % 11.6-14.6 [facility] Work Phone: Immature granulocytes/100 WBC (Bld) 1.200 % 0.0-0.9 [facility] Work Phone: Comment on above: IG% - Immature Granu locytes (promyelocytes, myelocytes and metamyelocytes) > 1% indicates that a LEFT SHIFT is Present. MCH (RBC) [Entitic mass] 29.4 pg 27.0-32.0 [facility] Work Phone: Nucleated RBC/100 WBC (Bld) [Ratio] 0 % 0-5 [facility] Work Phone: MCHC Auto (RBC) [Mass/Vol]on 01-18-2022 MCHC (RBC) [Mass/Vol] 31.8 g/dL 32-36 [facility] Work Phone: No Panel Informationon 01-18 Estimated Creatinine Clearance Calc 43.27 ml/min [facility] Work Phone: Estimated GFR (MDRD) Amer 96 mL/min >60 [facility] Work Phone: Comment on above: GFR Calc Estimated GFR (MDRD) Non-Af Amer 80 mL/min >60 [facility] Work Phone: Comment on above: Non- GFR Calc Platelets bldon 01-18-2022 Platelets (Bld) [#/Vol] 345 10*3/uL 150-450 [facility] Work Phone: Serum or plasma calcium pavel urement (mass/volume)on 01-18-2022 Calcium [Mass/Vol] 9.6 mg/dL 8.5-10.1 [facility] Work Phone: Serum or plasma creatinine m easurement (mass/volume)on 01-18-2022 Creatinine [Mass/Vol] 0.76 mg/dL 0.55-1.02 [facility] Work Phone: Comment on above: The validity of the calculated GFR & GFRAA in patients over 70 years has not been determined. Clinical correlation is essential. Serum or plasma urea nitroge n measurement (mass/volume)on 01-18-2022 Urea nitrogen [Mass/Vol] 18 mg/dL 7-18 [facility] Work Phone: Thin prep Papanicolaou smear with manual screeningon 01-18-2022 Thin prep Papanicolaou smear with manual screening 4 5-15 [facility] Work Phone: Bacteria identified Anaer cx Nom (Unsp spec)on 01-16-2022 Anaerobic Culture Anaerobic cocci [facility] Work Phone: Bacteria identified Cx Nom ( Wound)on 01-16-2022 Wound Culture Staphylococcus aureus [facility] Work Phone: Wound Culture Positive [facility] Work Phone: Gram stain for investigation of transfusion reactionon 01-16-2022 Microscopic observation Gram stain Nom (Unsp spec) [facility] Work Phone: No Panel Informationon 01-16 Thyroid Stimulating Hormone (TSH) 1.90 uIU/mL 0.358-3.74 [facility] Work Phone: Vancomycin troughon 01-17-20 Vancomycin trough [Mass/Vol] 8.1 ug/mL 5.0-15.0 [facility] Work Phone: Comment on above: VANCOMYCIN STANDARED DRUG THERAPY TROUGH LEVEL: 5.0 - 15.0 mg/L VANCOMYCIN HIGH INTENSITY THERAPY TROUGH LEVEL: 15.0 - 20.0 mg/L High Intensity therapy recommended for serious lifethreatening infections include:- Mpnvdydvxj-Tpuymaprajlw-Iamaqtdtv (Ventilator/Healtcare Associated)-Sepsis PLEASE CONTACT PHARMACY SERVICES (#0157) FOR INTERPRETATIONOF RESULTS. Absolute lymphocyte counton 01-14-2022 Lymphocytes Auto (Unsp spec) [#/Vol] 1.55 10*3/uL 0.83-4.51 [facility] Work Phone: Basophil percentageon 2021 Lactate [Moles/Vol] 1.2 mmol/L 0.4-2.0 [facility] Work Phone: Basophils/100 WBC (Bld) 0.3 % 0-1 [facility] Work Phone: Bilirubin [Mass/Vol] 0.20 mg/dL 0.20-1.00 [facility] Work Phone: Comment on above: For patients on eltr ombopag therapy, use of Dimension [place] TBIL is not recommended. Chloride [Moles/Vol] 99 mmol/L 98-107 [facility] Work Phone: Eosinophils/100 WBC (Bld) 0.8 % 0-5 [facility] Work Phone: Glucose [Mass/Vol] 49 mg/dL 74-106 [facility] Work Phone: Comment on above: Glucose result less than 50 mg/dL suggests HYPOGLYCEMIA. Lactate [Moles/Vol] 2.8 mmol/L 0.4-2.0 [facility] Work Phone: Comment on above: Critical Result(s) C alled at: 20:22:03 01/14/2022 by: Virginie persaud [facility]. Results read back by same. Neutrophils (Bld) [#/Vol] 8.3 10*3/uL 2.0-7.7 [facility] Work Phone: Neutrophils/100 WBC (Bld) 75.0 % 47-70 [facility] Work Phone: Potassium [Moles/Vol] 3.8 mmol/L 3.5-5.1 [facility] Work Phone: Protein [Mass/Vol] 6.9 g/dL 6.4-8.2 [facility] Work Phone: Sodium [Moles/Vol] 136 mmol/L 136-145 [facility] Work Phone: WBC (Bld) [#/Vol] 11.0 10*3/uL 4.4-11.0 [facility] Work Phone: Blood erythrocytes count (nu mber/volume)on 01-14-2022 RBC (Bld) [#/Vol] 3.73 10*6/uL 4.2-5.4 [facility] Work Phone: Blood hemoglobin measurement (mass/volume)on 01-14-2022 Hemoglobin (Bld) [Mass/Vol] 11.2 g/dL 12.0-15.0 [facility] Work Phone: Blood lymphocytes/100 leukoc yteson 01-14-2022 Lymphocytes/100 WBC (Bld) 14.1 % 19-41 [facility] Work Phone: Blood monocytes/100 leukocyt eson 01-14-2022 Monocytes/100 WBC (Bld) 8.3 % 0-10 [facility] Work Phone: Blood platelet mean volumeon 01-14-2022 Platelet mean volume (Bld) [Entitic vol] 10.8 fL 6.2-12.0 [facility] Work Phone: Determination of erythrocyte mean corpuscular volume (MCV)on 01-14-2022 MCV (RBC) [Entitic vol] 91.4 fL 81-99 [facility] Work Phone: Hematocrit Auto (Bld) [Volum e fraction]on 01-14-2022 Hematocrit (Bld) [Volume fraction] 34.1 % 37-47 [facility] Work Phone: INR in Blood by Coagulation assayon 01-14-2022 INR Coag (Bld) [Relative time] 1.2 {INR} [facility] Work Phone: Laboratory - Chemistry and C hemistry - challengeon 01-14-2022 ALP [Catalytic activity/Vol] 52 U/L 45-117 [facility] Work Phone: ALT [Catalytic activity/Vol] 23 U/L 13-56 [facility] Work Phone: CO2 [Moles/Vol] 29.0 mmol/L 21.0-32.0 [facility] Work Phone: Globulin (S) [Mass/Vol] 4.4 g/dL 2.2-4.2 [facility] Work Phone: Urea nitrogen/Creatinine [Mass ratio] 17.1 mg/mg 10-20 [facility] Work Phone: Laboratory - Coagulationon 0 01-14-2022 aPTT Coag (Bld) [Time] 35.5 s 24.1-36.2 [facility] Work Phone: PT Coag (PPP) [Time] 15.0 s 11.7-14.[address] [facility] [address] [facility] Work Phone: Laboratory - Hematology and Cell countson 01-14-2022 Erythrocyte distribution width (RBC) [Entitic vol] 41.9 fL 35.1-43.9 [facility] Work Phone: Erythrocyte distribution width (RBC) [Ratio] 12.5 % 11.6-14.6 [facility] Work Phone: Immature granulocytes/100 WBC (Bld) 1.500 % 0.0-0.9 [facility] Work Phone: Comment on above: IG% - Immature Granu locytes (promyelocytes, myelocytes and metamyelocytes) > 1% indicates that a LEFT SHIFT is Present. MCH (RBC) [Entitic mass] 30.0 pg 27.0-32.0 [facility] Work Phone: Nucleated RBC/100 WBC (Bld) [Ratio] 0 % 0-5 [facility] Work Phone: Laboratory - Microbiology an d Antimicrobial susceptibilityon 01-14-2022 Bacteria identified Cx Nom (Bld) No growth in 5 days. [facility] Work Phone: MCHC Auto (RBC) [Mass/Vol]on 01-14-2022 MCHC (RBC) [Mass/Vol] 32.8 g/dL 32-36 [facility] Work Phone: No Panel Informationon 01-14 Estimated Creatinine Clearance Calc 38.53 ml/min [facility] Work Phone: Estimated GFR (MDRD) Amer 58 mL/min >60 [facility] Work Phone: Comment on above: GFR Calc Estimated GFR (MDRD) Non-Af Amer 48 mL/min >60 [facility] Work Phone: Comment on above: Non- GFR Calc Platelets bldon 01-14-2022 Platelets (Bld) [#/Vol] 318 10*3/uL 150-450 [facility] Work Phone: Serum or plasma albumin pavel urement (mass/volume)on 01-14-2022 Albumin [Mass/Vol] 2.5 g/dL 3.2-5.0 [facility] Work Phone: Serum or plasma albumin/glob ulin mass ratioon 01-14-2022 Albumin/Globulin [Mass ratio] 0.6 {ratio} 0.9-2.4 [facility] Work Phone: Serum or plasma calcium pavel urement (mass/volume)on 01-14-2022 Calcium [Mass/Vol] 8.9 mg/dL 8.5-10.1 [facility] Work Phone: Serum or plasma creatinine m easurement (mass/volume)on 01-14-2022 Creatinine [Mass/Vol] 1.17 mg/dL 0.55-1.02 [facility] Work Phone: Comment on above: The validity of the calculated GFR & GFRAA in patients over 70 years has not been determined. Clinical correlation is essential. Serum or plasma urea nitroge n measurement (mass/volume)on 01-14-2022 Urea nitrogen [Mass/Vol] 20 mg/dL 7-18 [facility] Work Phone: Thin prep Papanicolaou smear with manual screeningon 01-14-2022 Thin prep Papanicolaou smear with manual screening 31 U/L 15-37 [facility] Work Phone: Thin prep Papanicolaou smear with manual screening 8 5-15 [facility] Work Phone: Absolute lymphocyte counton 01-13-2022 Lymphocytes Auto (Unsp spec) [#/Vol] 0.98 10*3/uL 0.83-4.51 [facility] Work Phone: Basophil percentageon 2021 Basophils/100 WBC (Bld) 0.3 % 0-1 [facility] Work Phone: Bilirubin [Mass/Vol] 0.40 mg/dL 0.20-1.00 [facility] Work Phone: Comment on above: For patients on eltr ombopag therapy, use of Dimension [place] TBIL is not recommended. Chloride [Moles/Vol] 99 mmol/L 98-107 [facility] Work Phone: Eosinophils/100 WBC (Bld) 0.6 % 0-5 [facility] Work Phone: [phone] Glucose [Mass/Vol] 142 mg/dL 74-106 [facility] Work Phone: [phone] Comment on above: Fasting Glucose resu lt greater than or equal to 126 mg/dL suggests DIABETES MELLITUS per A.D.A. criteria. Neutrophils (Bld) [#/Vol] 7.7 10*3/uL 2.0-7.7 [facility] Work Phone: [phone] Neutrophils/100 WBC (Bld) 81.1 % 47-70 [facility] Work Phone: [phone] Potassium [Moles/Vol] 4.1 mmol/L 3.5-5.1 [facility] Work Phone: [phone] Protein [Mass/Vol] 6.5 g/dL 6.4-8.2 [facility] Work Phone: [phone] Sodium [Moles/Vol] 132 mmol/L 136-145 [facility] Work Phone: [phone] WBC (Bld) [#/Vol] 9.5 10*3/uL 4.4-11.0 [facility] Work Phone: Blood erythrocytes count (nu mber/volume)on 01-13-2022 RBC (Bld) [#/Vol] 3.63 10*6/uL 4.2-5.4 [facility] Work Phone: Blood hemoglobin measurement (mass/volume)on 01-13-2022 Hemoglobin (Bld) [Mass/Vol] 10.9 g/dL 12.0-15.0 [facility] Work Phone: Blood lymphocytes/100 leukoc yteson 01-13-2022 Lymphocytes/100 WBC (Bld) 10.3 % 19-41 [facility] [facility] Work Phone: Blood monocytes/100 leukocyt eson 01-13-2022 Monocytes/100 WBC (Bld) 7.1 % 0-10 [facility] Work Phone: Blood platelet mean volumeon 01-13-2022 Platelet mean volume (Bld) [Entitic vol] 11.3 fL 6.2-12.0 [facility] Work Phone: Determination of erythrocyte mean corpuscular volume (MCV)on 01-13-2022 MCV (RBC) [Entitic vol] 90.4 fL 81-99 [facility] Work Phone: Erythrocyte sedimentation ra salud 01-13-2022 ESR (Bld) [Velocity] 67 mm/h 0-30 [facility] Work [facility]: Hematocrit Auto (Bld) [Volum e fraction]on 01-13-2022 Hematocrit (Bld) [Volume fraction] 32.8 % 37-47 [facility] Work Phone: Laboratory - Chemistry and C hemistry - challengeon 01-13-2022 ALP [Catalytic activity/Vol] 46 U/L 45-117 [facility] Work Phone: ALT [Catalytic activity/Vol] 22 U/L 13-56 [facility] Work Phone: CO2 [Moles/Vol] 27.0 mmol/L 21.0-32.0 [facility] Work Phone: Globulin (S) [Mass/Vol] 4.1 g/dL 2.2-4.2 [facility] Work Phone: Urea nitrogen/Creatinine [Mass ratio] 20.4 mg/mg 10-20 [facility] Work Phone: Laboratory - Hematology and Cell countson 01-13-2022 Erythrocyte distribution width (RBC) [Entitic vol] 41.1 fL 35.1-43.9 [facility] Work Phone: Erythrocyte distribution width (RBC) [Ratio] 12.4 % 11.6-14.6 [facility] Work Phone: Immature granulocytes/100 WBC (Bld) 0.600 % 0.0-0.9 [facility] Work Phone: Comment on above: IG% - Immature Granu locytes (promyelocytes, myelocytes and metamyelocytes) > 1% indicates that a LEFT SHIFT is Present. MCH (RBC) [Entitic mass] 30.0 pg 27.0-32.0 [facility] Work Phone: Nucleated RBC/100 WBC (Bld) [Ratio] 0 % 0-5 [facility] Work Phone: MCHC Auto (RBC) [Mass/Vol]on 01-13-2022 MCHC (RBC) [Mass/Vol] 33.2 g/dL 32-36 [facility] Work Phone: No Panel Informationon 01-13 Estimated Creatinine Clearance Calc 39.90 ml/min [facility] Work Phone: Estimated GFR (MDRD) Amer 61 mL/min >60 [facility] Work Phone: Comment on above: GFR Calc Estimated GFR (MDRD) Non-Af Amer 50 mL/min >60 [facility] Work Phone: Comment on above: Non- GFR Calc Platelets bldon 01-13-2022 Platelets (Bld) [#/Vol] 240 10*3/uL 150-450 [facility] Work Phone: Serum or plasma C reactive p rotein measurement (mass/volume)on 01-13-2022 CRP [Mass/Vol] 162.00 mg/L 0.0-3.0 [facility] Work Phone: Comment on above: C-Reactive Protein ( CRP) provides useful information for thediagnosis, therapy and monitoring of inflammatory processesand associated diseases. For the evaluation of Relative Riskfor Cardiovascular Disease, a High Sensitivity CRP (HSCRP)should be ordered. Serum or plasma albumin pavel urement (mass/volume)on 01-13-2022 Albumin [Mass/Vol] 2.4 g/dL 3.2-5.0 [facility] Work Phone: Serum or plasma albumin/glob ulin mass ratioon 01-13-2022 Albumin/Globulin [Mass ratio] 0.6 {ratio} 0.9-2.4 [facility] Work Phone: Serum or plasma calcium pavel urement (mass/volume)on 01-13-2022 Calcium [Mass/Vol] 8.7 mg/dL 8.5-10.1 [facility] Work Phone: Serum or plasma creatinine m easurement (mass/volume)on 01-13-2022 Creatinine [Mass/Vol] 1.13 mg/dL 0.55-1.02 [facility] Work Phone: Comment on above: The validity of the calculated GFR & GFRAA in patients over 70 years has not been determined. Clinical correlation is essential. Serum or plasma urea nitroge n measurement (mass/volume)on 01-13-2022 Urea nitrogen [Mass/Vol] 23 mg/dL 7-18 [facility] Work Phone: Thin prep Papanicolaou smear with manual screeningon 01-13-2022 Thin prep Papanicolaou smear with manual screening 36 U/L 15-37 [facility] Work Phone: Thin prep Papanicolaou smear with manual screening 6 5-15 [facility] Work Phone: No Panel Informationon 01-10 Culture Urine 50,000 - 100,000 cfu/ml Multiple bacterial morphotypes present. Probable Contamination. Suggest recollection if clinically indicated. [facility] Bacteria identified Anaer cx Nom (Unsp spec)on 12-26-2021 Anaerobic microbial culture No anaerobic bacteria isolated. [facility] Work Phone: Bacteria identified Cx Nom ( Wound)on 12-26-2021 Wound Culture Staphylococcus lugdunensis [facility] Work Phone: Wound Culture Staphylococcus epidermidis [facility] Work Phone: Gram stain for investigation of transfusion reactionon 12-26-2021 Microscopic observation Gram stain Nom (Unsp spec) [facility] Work Phone: LABORATORYOrdered By: Favian Contreras on [...] Auto (Unsp spec) [#/Vol] 1.62 10*3/uL 0.83-4.51 [facility] Work Phone: Basophil percentageon 2021 Basophils/100 WBC (Bld) 0.6 % 0-1 [facility] Work Phone: Bilirubin [Mass/Vol] 0.30 mg/dL 0.20-1.00 [facility] Work Phone: [phone] Comment on above: For patients on eltr ombopag therapy, use of Dimension [place] TBIL is not recommended. Chloride [Moles/Vol] 85 mmol/L 98-107 [facility] Work Phone: Eosinophils/100 WBC (Bld) 1.0 % 0-5 [facility] Work Phone: Glucose [Mass/Vol] 165 mg/dL 74-106 [facility] Work Phone: Comment on above: Fasting Glucose resu lt greater than or equal to 126 mg/dL suggests DIABETES MELLITUS per A.D.A. criteria. Neutrophils (Bld) [#/Vol] 4.4 10*3/uL 2.0-7.7 [facility] Work Phone: Neutrophils/100 WBC (Bld) 65.4 % 47-70 [facility] Work Phone: Potassium [Moles/Vol] 3.3 mmol/L 3.5-5.1 [facility] Work Phone: Protein [Mass/Vol] 7.3 g/dL 6.4-8.2 [facility] Work Phone: Sodium [Moles/Vol] 127 mmol/L 136-145 [facility] Work Phone: WBC (Bld) [#/Vol] 6.8 10*3/uL 4.4-11.0 [facility] Work Phone: Blood erythrocytes count (nu mber/volume)on 11-20-2021 RBC (Bld) [#/Vol] 4.81 10*6/uL 4.2-5.4 [facility] Work Phone: Blood hemoglobin measurement (mass/volume)on 11-20-2021 Hemoglobin (Bld) [Mass/Vol] 14.4 g/dL 12.0-15.0 [facility] Work Phone: Blood lymphocytes/100 leukoc yteson 11-20-2021 Lymphocytes/100 WBC (Bld) 24.0 % 19-41 [facility] Work Phone: Blood monocytes/100 leukocyt eson 11-20-2021 Monocytes/100 WBC (Bld) 8.9 % 0-10 [facility] Work Phone: Blood platelet mean volumeon 11-20-2021 Platelet mean volume (Bld) [Entitic vol] 9.6 fL 6.2-12.0 [facility] Work Phone: Determination of erythrocyte mean corpuscular volume (MCV)on 11-20-2021 MCV (RBC) [Entitic vol] 82.5 fL 81-99 [facility] Work Phone: Erythrocyte sedimentation ra salud 11-20-2021 ESR (Bld) [Velocity] 30 mm/h 0-30 [facility] Work Phone: Hematocrit Auto (Bld) [Volum e fraction]on 11-20-2021 Hematocrit (Bld) [Volume fraction] 39.7 % 37-47 [facility] Work Phone: Laboratory - Chemistry and C hemistry - challengeon 11-20-2021 ALP [Catalytic activity/Vol] 75 U/L 45-117 [facility] Work Phone: ALT [Catalytic activity/Vol] 15 U/L 13-56 [facility] Work Phone: CO2 [Moles/Vol] 36.0 mmol/L 21.0-32.0 [facility] Work Phone: Globulin (S) [Mass/Vol] 3.6 g/dL 2.2-4.2 [facility] Work Phone: Urea nitrogen/Creatinine [Mass ratio] 20.7 mg/mg 10-20 [facility] Work Phone: Laboratory - Hematology and Cell countson 11-20-2021 Erythrocyte distribution width (RBC) [Entitic vol] 34.5 fL 35.1-43.9 [facility] Work Phone: Erythrocyte distribution width (RBC) [Ratio] 11.4 % 11.6-14.6 [facility] Work Phone: Immature granulocytes/100 WBC (Bld) 0.100 % 0.0-0.9 [facility] Work Phone: Comment on above: IG% - Immature Granu locytes (promyelocytes, myelocytes and metamyelocytes) > 1% indicates that a LEFT SHIFT is Present. MCH (RBC) [Entitic mass] 29.9 pg 27.0-32.0 [facility] Work Phone: Nucleated RBC/100 WBC (Bld) [Ratio] 0 % 0-5 [facility] Work Phone: MCHC Auto (RBC) [Mass/Vol]on 11-20-2021 MCHC (RBC) [Mass/Vol] 36.3 g/dL 32-36 [facility] Work Phone: No Panel Informationon 11-20 Estimated Creatinine Clearance Calc 54.98 ml/min [facility] Work Phone: Estimated GFR (MDRD) Amer 87 mL/min >60 [facility] Work Phone: Comment on above: GFR Calc Estimated GFR (MDRD) Non-Af Amer 72 mL/min >60 [facility] Work Phone: Comment on above: Non- GFR Calc Platelets bldon 11-20-2021 Platelets (Bld) [#/Vol] 231 10*3/uL 150-450 [facility] Work Phone: Serum or plasma C reactive p rotein measurement (mass/volume)on 11-20-2021 CRP [Mass/Vol] 5.93 mg/L 0.0-3.0 [facility] Work Phone: Comment on above: C-Reactive Protein ( CRP) provides useful information for thediagnosis, therapy and monitoring of inflammatory processesand associated diseases. For the evaluation of Relative Riskfor Cardiovascular Disease, a High Sensitivity CRP (HSCRP)should be ordered. Serum or plasma albumin pavel urement (mass/volume)on 11-20-2021 Albumin [Mass/Vol] 3.7 g/dL 3.2-5.0 [facility] Work Phone: Serum or plasma albumin/glob ulin mass ratioon 11-20-2021 Albumin/Globulin [Mass ratio] 1.0 {ratio} 0.9-2.4 [facility] Work Phone: Serum or plasma calcium pavel urement (mass/volume)on 11-20-2021 Calcium [Mass/Vol] 9.4 mg/dL 8.5-10.1 [facility] Work Phone: Serum or plasma creatinine m easurement (mass/volume)on 11-20-2021 Creatinine [Mass/Vol] 0.82 mg/dL 0.55-1.02 [facility] Work Phone: Comment on above: The validity of the calculated GFR & GFRAA in patients over 70 years has not been determined. Clinical correlation is essential. Serum or plasma transthyreti n measurement (mass/volume)on 11-20-2021 Prealbumin [Mass/Vol] 20.3 mg/dL 20.0-40.0 [facility] Work Phone: Serum or plasma urea nitroge n measurement (mass/volume)on 11-20-2021 Urea nitrogen [Mass/Vol] 17 mg/dL 7-18 [facility] Work Phone: Thin prep Papanicolaou smear with manual screeningon 11-20-2021 Thin prep Papanicolaou smear with manual screening 15 U/L 15-37 [facility] Work Phone: Thin prep Papanicolaou smear with manual screening 6 5-15 [facility] Work Phone: Whole blood hemoglobin A1c/t otal hemoglobin ratio (mass fraction)on 11-20-2021 HbA1c (Bld) [Mass fraction] 7.7 % 3.8-5.6 [facility] Work Phone: Comment on above: Normal < 5.7 % Predi abetic 5.7 - 6.4 % Diabetic >or= 6.5 % Please note range changes. Bacteria identified Anaer cx Nom (Unsp spec)on 11-07-2021 Anaerobic microbial culture No anaerobic bacteria isolated. [facility] Work Phone: Bacteria identified Cx Nom ( Wound)on 11-07-2021 Wound Culture Staphylococcus epidermidis [facility] Work Phone: Wound Culture Staphylococcus auricularis [facility] Work Phone: Gram stain for investigation of transfusion reactionon 11-07-2021 Microscopic observation Gram stain Nom (Unsp spec) [facility] Work Phone: LABORATORYOrdered By: Donte Farris on [...] Anaerobic microbial culture No anaerobic bacteria isolated. [facility] Work Phone: Bacteria identified Cx Nom ( Wound)on 08-08-2021 Wound Culture Staphylococcus epidermidis [facility] Work Phone: Gram stain for investigation of transfusion reactionon 08-08-2021 Microscopic observation Gram stain Nom (Unsp spec) [facility] Work Phone: LABORATORYOrdered By: Laurie Romero on [...] 09-16-2022 04:10-0500 Diastolic blood pressure 89 mm[Hg] [facility] 09-16-2022 04:10-0500 Heart rate 83 /min [facility] 09-16-2022 04:10-0500 Respiratory rate 16 /min [facility] 09-16-2022 04:10-0500 SaO2% (BldA) [Mass fraction] 99 % [facility] 09-16-2022 04:10-0500 Systolic blood pressure 154 mm[Hg] [facility] 09-15-2022 23:18-0500 Body height 162.56 cm [facility] 09-15-2022 23:18-0500 Body mass index (BMI) [Ratio] 30.5 kg/m2 [facility] 09-15-2022 23:18-0500 Body temperature 97 [degF] [facility] 09-15-2022 23:18-0500 Body weight 80.73 kg [facility] 01-22-2022 15:45-0400 Body mass index (BMI) [Ratio] 28.6 kg/m2 Dr. Mathieu Roland Work Phone: [facility] Work Phone: 01-22-2022 15:45-0400 Body temperature 97.9 [degF] Dr. Mathieu Roland Work Phone: [facility] Work Phone: 01-22-2022 15:45-0400 Diastolic blood pressure 62 mm[Hg] Dr. Mathieu Roland Work Phone: [facility] Work Phone: 01-22-2022 15:45-0400 Heart rate 77 /min Dr. Mathieu Roland Work Phone: [facility] Work Phone: 01-22-2022 15:45-0400 Systolic blood pressure 134 mm[Hg] Dr. Mathieu Roland Work Phone: [facility] Work Phone: 01-18-2022 15:05-0400 Body temperature 98.1 [degF] Dr. Mathieu Roland Work Phone: [facility] Work Phone: 01-18-2022 15:05-0400 Diastolic blood pressure 67 mm[Hg] Dr. Mathieu Roland Work Phone: [facility] Work Phone: 01-18-2022 15:05-0400 Heart rate 99 /min Dr. Mathieu Roland Work Phone: [facility] Work Phone: 01-18-2022 15:05-0400 Respiratory rate 18 /min Dr. Mathieu Roland Work Phone: [facility] Work Phone: 01-18-2022 15:05-0400 SaO2% (BldA) [Mass fraction] 96 % Dr. Mathieu Roland Work Phone: [facility] Work Phone: 01-18-2022 15:05-0400 Systolic blood pressure 126 mm[Hg] Dr. Mathieu Roland Work Phone: [facility] Work Phone: 01-16-2022 13:09-0400 Body height [address] Mathieu Roland Work Phone: [facility] Work Phone: 01-16-2022 13:09-0400 Body weight 89.[address] Mathieu Roland Work Phone: [facility] Work Phone: 01-16-2022 10:26-0400 Body mass index (BMI) [Ratio] 32.9 kg/m2 Dr. Mathieu Roland Work Phone: [facility] Work Phone: 01-14-2022 22:07-0400 Body temperature 98.6 [degF] Dr. Mathieu Roland Work Phone: [facility] Work Phone: 01-14-2022 22:07-0400 Diastolic blood pressure 67 mm[Hg] Dr. Mathieu Roland Work Phone: [facility] Work Phone: 01-14-2022 22:07-0400 Heart rate 71 /min Dr. Mathieu Roland Work Phone: [facility] Work Phone: 01-14-2022 22:07-0400 Respiratory rate 17 /min Dr. Mathieu Roland Work Phone: [facility] Work Phone: 01-14-2022 22:07-0400 SaO2% (BldA) [Mass fraction] 96 % Dr. Mathieu Roland Work Phone: [facility] Work Phone: 01-14-2022 22:07-0400 Systolic blood pressure 120 mm[Hg] Dr. Mathieu Roland Work Phone: [facility] Work Phone: 01-14-2022 17:40-0400 Body height 165.[address] Mathieu Roland Work Phone: [facility] Work Phone: 01-14-2022 17:40-0400 Body mass index (BMI) [Ratio] 29.1 kg/m2 Dr. Mathieu Roland Work Phone: [facility] Work Phone: 01-14-2022 17:40-0400 Body weight 79.[address] Mathieu Roland Work Phone: [facility] Work Phone: 01-14-2022 16:59-0400 Body temperature 99.14 [degF] [facility] 01-14-2022 16:59-0400 Diastolic blood pressure 63 mm[Hg] [facility] 01-14-2022 16:59-0400 Heart rate 71 /min [facility] 01-14-2022 16:59-0400 Respiratory rate 16 /min IVELISSE KAUR DO [facility] 01-14-2022 16:59-0400 Systolic blood pressure 99 mm[Hg] IVELISSE KAUR DO [facility] 01-08-2022 15:46-0400 Body mass index (BMI) [Ratio] 28.6 kg/m2 Dr. Mathieu Roland Work Phone: [facility] Work Phone: 01-08-2022 15:46-0400 Body temperature 97.2 [degF] Dr. Mathieu Roland Work Phone: [facility] Work Phone: 12-29-2021 00:21-0400 Body weight 78.[address] Mathieu Roland Work Phone: [facility] Work Phone: 12-29-2021 00:21-0400 Diastolic blood pressure 70 mm[Hg] Dr. Mathieu Roland Work Phone: [facility] Work Phone: 12-29-2021 00:21-0400 Heart rate 68 /min Dr. Mathieu Roland Work Phone: [facility] Work Phone: 12-29-2021 00:21-0400 Respiratory rate 18 /min Dr. Mathieu Roland Work Phone: [facility] Work Phone: 12-29-2021 00:21-0400 Systolic blood pressure 172 mm[Hg] Dr. Mathieu Roland Work Phone: [facility] Work Phone: 12-26-2021 15:06-0400 Body mass index (BMI) [Ratio] 28.6 kg/m2 Dr. Mathieu Roland Work Phone: [facility] Work Phone: 12-26-2021 15:06-0400 Body temperature 97.8 [degF] Dr. Mathieu Roland Work Phone: [facility] Work Phone: 12-26-2021 15:06-0400 Diastolic blood pressure 70 mm[Hg] Dr. Mathieu Roland Work Phone: [facility] Work Phone: 12-26-2021 15:06-0400 Heart rate 68 /min Dr. Mathieu Roland Work Phone: [facility] Work Phone: 12-26-2021 15:06-0400 Systolic blood pressure 172 mm[Hg] Dr. Mathieu Roland Work Phone: [facility] Work Phone: 12-19-2021 14:48-0400 Respiratory rate 18 /min Dr. Mathieu Roland Work Phone: [facility] Work Phone: 11-29-2021 00:20-0400 Body weight 78.[address] Mathieu Roland Work Phone: [facility] Work Phone: 11-28-2021 15:18-0400 Body mass index (BMI) [Ratio] 28.6 kg/m2 Dr. Mathieu Roland Work Phone: [facility] Work Phone: 11-28-2021 15:18-0400 Body temperature 98 [degF] Dr. Mathieu Roland Work Phone: [facility] Work Phone: 11-28-2021 15:18-0400 Diastolic blood pressure 69 mm[Hg] Dr. Mathieu Roland Work Phone: [facility] Work Phone: 11-28-2021 15:18-0400 Heart rate 92 /min Dr. Mathieu Roland Work Phone: [facility] Work Phone: 11-28-2021 15:18-0400 Respiratory rate 18 /min Dr. Mathieu Roland Work Phone: [facility] Work Phone: 11-28-2021 15:18-0400 Systolic blood pressure 144 mm[Hg] Dr. Mathieu Roland Work Phone: [facility] Work Phone: 11-14-2021 15:05-0400 Body mass index (BMI) [Ratio] 28.6 kg/m2 Dr. Mathieu Roland Work Phone: [facility] Work Phone: 11-14-2021 15:05-0400 Body temperature 97.9 [degF] Dr. Mathieu Roland Work Phone: [facility] Work Phone: 11-14-2021 15:05-0400 Diastolic blood pressure 56 mm[Hg] Dr. Mathieu Roland Work Phone: [facility] Work Phone: 11-14-2021 15:05-0400 Heart rate 79 /min Dr. Mathieu Roland Work Phone: [facility] Work Phone: 11-14-2021 15:05-0400 Systolic blood pressure 103 mm[Hg] Dr. Mathieu Roland Work Phone: [facility] Work Phone: 11-07-2021 13:35-0500 Respiratory rate 16 /min Dr. Mathieu Roland Work Phone: [facility] Work Phone: 10-28-2021 23:19-0500 Body weight 78.[address] Mathieu Roland Work Phone: [facility] Work Phone: 10-24-2021 13:48-0500 Body mass index (BMI) [Ratio] 28.6 kg/m2 Dr. Mathieu Roland Work Phone: [facility] Work Phone: 10-24-2021 13:48-0500 Body temperature 96.8 [degF] Dr. Mathieu Roland Work Phone: [facility] Work Phone: 10-24-2021 13:48-0500 Diastolic blood pressure 76 mm[Hg] Dr. Mathieu Roland Work Phone: [facility] Work Phone: 10-24-2021 13:48-0500 Respiratory rate 16 /min Dr. Mathieu Roland Work Phone: [facility] Work Phone: 10-24-2021 13:48-0500 Systolic blood pressure 181 mm[Hg] Dr. Mathieu Roland Work Phone: [facility] Work Phone: 10-17-2021 13:31-0500 Heart rate 75 /min Dr. Mathieu Roland Work Phone: [facility] Work Phone: 09-30-2021 23:13-0500 Body weight 78.[address] Mathieu Roland Work Phone: [facility] Work Phone: 09-26-2021 13:01-0500 Body mass index (BMI) [Ratio] 28.6 kg/m2 Dr. Mathieu Roland Work Phone: [facility] Work Phone: 09-26-2021 13:01-0500 Body temperature 96.6 [degF] Dr. Mathieu Roland Work Phone: [facility] Work Phone: 09-26-2021 13:01-0500 Diastolic blood pressure 64 mm[Hg] Dr. Mathieu Roland Work Phone: [facility] Work Phone: 09-26-2021 13:01-0500 Heart rate 78 /min Dr. Mathieu Roland Work Phone: [facility] Work Phone: 09-26-2021 13:01-0500 Respiratory rate 16 /min Dr. Mathieu Roland Work Phone: [facility] Work Phone: 09-26-2021 13:01-0500 Systolic blood pressure 157 mm[Hg] Dr. Mathieu Roland Work Phone: [facility] Work Phone: 08-30-2021 23:06-0500 Body weight 78.[address] Mathieu Roland Work Phone: [facility] Work Phone: 08-15-2021 11:58-0500 Body mass index (BMI) [Ratio] 28.6 kg/m2 Dr. Mathieu Roland Work Phone: [facility] Work Phone: 08-15-2021 11:58-0500 Body temperature 98.7 [degF] Dr. Mathieu Roland Work Phone: [facility] Work Phone: 08-15-2021 11:58-0500 Diastolic blood pressure 72 mm[Hg] Dr. Mathieu Roland Work Phone: [facility] Work Phone: 08-15-2021 11:58-0500 Heart rate 79 /min Dr. Mathieu Roland Work Phone: [facility] Work Phone: 08-15-2021 11:58-0500 Respiratory rate 16 /min Dr. Mathieu Roland Work Phone: [facility] Work Phone: 08-15-2021 11:58-0500 Systolic blood pressure 176 mm[Hg] Dr. Mathieu Roland Work Phone: [facility] Work Phone: 08-08-2021 14:14-0500 Body height 165.[address] Mathieu Roland Work Phone: [facility] Work Phone: 08-08-2021 14:14-0500 Body weight 78.[address] Mathieu Roland Work Phone: [facility] Work Phone: Encounters Encounter Date Encounter Type Care Provider Facility Start: 02-28-2025 End: 02-28-2025 ambulatory MATHIEU ROLAND DO [facility] Start: 02-28-2025 End: 02-28-2025 Patient encounter procedure MATHIEU ROLAND DO [facility] Start: 02-23-2025 End: 02-23-[address] JAMESON GARCIA DO Facility[facility] Start: 02-23-2025 End: 02-23-[address] JAMESON GARCIA DO [facility] Start: 02-21-2025 End: 02-25-[address] JAMESON GARCIA DO Facility[facility] Start: 02-21-2025 End: 02-25-[address] JAMESON GARCIA DO [facility] Start: 02-20-[address] JAMESON GARCIA DO Facili ty:[facility] Start: 02-17-[address] JAMESON GARCIA DO Facili ty:[facility] Start: 01-12-2025 ambulatory MATHIEU ROLAND DO Facil ity:[facility] Start: 01-09-2025 End: 01-09-2025 ambulatory MATHIEU ROLAND DO Facility:[facility] Start: 01-09-2025 End: 01-09-2025 Patient encounter procedure MARQUISE LEHMAN MD [facility] Start: 10-12-2024 End: 10-12-2024 ambulatory MATHIEU ROLAND DO Facility[facility] Start: 10-12-2024 End: 10-12-2024 Patient encounter procedure MATHIEU ROLAND DO [facility] Start: 09-05-2024 End: 09-05-2024 ambulatory MARQUISE LEHMAN MD Facility[facility] Start: 09-05-2024 End: 09-05-2024 Patient encounter procedure MARQUSIE LEHMAN MD [facility] Start: 08-29-2024 End: 08-29-2024 ambulatory MATHIEU ROLAND DO Facility[facility] Start: 08-29-2024 End: 08-29-2024 Patient encounter procedure MATHIEU ABBOTTY DO [facility] Start: 08-03-2024 End: 08-03-2024 ambulatory MATHIEU ROLAND DO Facility[facility] Start: 08-03-2024 End: 08-03-2024 Patient encounter procedure MATHIEU ABBOTTY DO [facility] Start: 02-29-2024 End: 02-29-2024 ambulatory MARQUISE LEHMAN MD Facility:[facility] Start: 02-29-2024 End: 02-29-2024 Patient encounter procedure MARQUISE LEHMAN MD [facility] Start: 10-20-2023 End: 10-20-2023 ambulatory MARQUISE LEHMAN MD Facility:[facility] Start: 10-20-2023 End: 10-20-2023 Patient encounter procedure MARQUISE LEHMAN MD [facility] Start: 08-22-2023 End: 08-22-2023 Emergency department patient visit Mathieu Roland Facility:[facility] Start: 08-20-2023 End: 08-20-2023 ambulatory MATHIEU ABBOTTY Facility:[facility] Start: 08-20-2023 End: 08-20-2023 Patient encounter procedure MATHIEU ROLAND DO [facility] Start: 06-23-2023 End: 06-23-2023 ambulatory MATHIEU ROLAND DO Facility:[facility] Start: 02-12-2023 End: 02-12-2023 Patient encounter procedure MARQUISE LEHMAN MD [facility] Start: 10-29-2022 End: 10-29-2022 Patient encounter procedure [facility], Specimen Start: 10-29-2022 End: 10-29-2022 ambulatory Edin Brayan [facility] Work Phone: Start: 10-23-[facility] Start: 09-25-2022 End: 09-25-2022 Patient encounter procedure MARQUISE LEHMAN MD [facility] Start: 09-16-2022 End: 09-16-2022 Emergency department patient visit Whitney Ott Facility:[facility] Start: 09-15-2022 End: 09-16-2022 Emergency department patient visit [facility] Start: 06-02-2022 End: 06-02-2022 Patient encounter procedure MATHIEU ROLAND DO [facility] Start: 04-28-2022 End: 04-28-2022 Patient encounter procedure MARQUISE LEHMAN MD [facility] Start: 03-05-2022 End: 03-05-2022 Patient encounter procedure MARQUISE LEHMAN MD [facility] Start: 01-22-2022 End: 01-28-[address] Mathieu Roland [facility] Start: 01-18-2022 Non-patient / Non-visit Dr. Mathieu Roland Work Phone: [facility] Start: 01-17-2022 Non-patient / Non-visit Dr. Mathieu Roland Work Phone: [facility] Start: 01-16-2022 Non-patient / Non-visit Dr. Mathieu Roland Work Phone: [facility] Start: 01-15-2022 Non-patient / Non-visit Dr. Mathieu Roland Work Phone: [facility] Start: 01-14-2022 End: 01-18-2022 Evaluation and management of inpatient Dr. Mathieu Roland Work Phone: [facility] 3 Start: 01-14-2022 Non-patient / Non-visit Dr. Mathieu Roland Work Phone: [facility] Start: 01-14-2022 End: 01-14-2022 Emergency department patient visit IVELISSE KAUR DO [facility] Start: 01-13-[address] Leona Roland Work Phone: [facility] Start: 01-10-2022 End: 01-14-[address] DO [facility] Start: 12-26-2021 Non-patient / Non-visit Dr. Mathieu Roland Work Phone: [facility] Start: 12-26-2021 End: 12-28-[address] Mathieu Roland Work Phone: [facility] Start: 12-20-2021 End: 12-20-2021 Patient encounter procedure MATHIEU ROLAND DO [facility] Start: 12-19-2021 Non-patient / Non-visit Dr. Matheiu Roland Work Phone: [facility] Start: 12-12-2021 Non-patient / Non-visit Dr. Mathieu Roland Work Phone: [facility] Start: 11-28-2021 Non-patient / Non-visit Dr. Mathieu Roland Work Phone: [facility] Start: 11-28-2021 End: 11-28-[address] Mathieu Roland Work Phone: [facility] Start: 11-21-2021 Non-patient / Non-visit Dr. Mathieu Roland Work Phone: [facility] Start: 11-21-2021 End: 11-28-[address] Mathieu Roland Work Phone: [facility] Start: 11-14-2021 Non-patient / Non-visit Dr. Mathieu Roland Work Phone: [facility] Start: 11-14-[address] Leona Roland Work Phone: [facility] Start: 11-12-2021 End: 11-12-[address] Mathieu Roland Work Phone: [facility] Start: 11-07-2021 Non-patient / Non-visit Dr. Mathieu Roland Work Phone: [facility] Start: 10-31-2021 Non-patient / Non-visit Dr. Mathieu Roland Work Phone: [facility] Start: 10-24-2021 Non-patient / Non-visit Dr. Mathieu Roland Work Phone: [facility] Start: 10-24-2021 End: 10-28-[address] Mathieu Roland Work Phone: [facility] Start: 10-17-2021 Non-patient / Non-visit Dr. Mathieu Roland Work Phone: [facility] Start: 10-16-2021 End: 10-16-2021 Patient encounter procedure MARQUISE LEHMAN MD [facility] Start: 10-15-2021 End: 10-15-2021 Patient encounter procedure MARQUISE LEHMAN MD [facility] Start: 10-10-2021 Non-patient / Non-visit Dr. Mathieu Roland Work Phone: [facility] Start: 09-26-2021 Non-patient / Non-visit Dr. Mathieu Roland Work Phone: [facility] Start: 09-26-2021 End: 09-30-[address] Mathieu Roland Work Phone: [facility] Start: 09-19-2021 Non-patient / Non-visit Dr. Mathieu Roland Work Phone: [facility] Start: 09-12-2021 Non-patient / Non-visit Dr. Mathieu Roland Work Phone: [facility] Start: 09-05-2021 Non-patient / Non-visit Dr. Mathieu Roland Work Phone: [facility] Start: 08-15-2021 Non-patient / Non-visit Dr. Mathieu Roland Work Phone: [facility] Start: 08-15-2021 End: 08-30-[address] Mathieu Roland Work Phone: [facility] Start: 08-13-2021 End: 08-13-[address] JAMESON GARCIA DO [facility] Start: 08-08-2021 Non-patient / Non-visit Dr. Mathieu Roland Work Phone: [facility] Start: 07-19-2021 End: 07-19-[address] JAMESON GARCIA DO [facility] Start: 06-19-2021 End: 06-19-2021 Patient encounter procedure MARQUISE LEHMAN MD [facility] Procedures Date Procedure Procedure Detail [...] Author Start: 01-16-2022 Fungal Culture Fungal Culture [facility] Work Phone: Start: 01-16-2022 Fungal Smear Fungal Smear [facility] Work Phone: Start: 01-14-2022 Bacteria identified in Blood by Culture Blood Culture [facility] Work Phone: Start: 01-14-2022 Microscopic observat ion [Identifier] in Unspecified specimen by Gram stain Gram Stain [facility] Work Phone: Start: 01-14-2022 Wound Culture Wound Culture [facility] Work Phone: Start: 12-26-2021 Anaerobic Culture Anaerobic Culture [facility] Work Phone: Start: 12-26-2021 Microbial culture, routine Wound Culture [facility] Work Phone: Patient Education ED Gastroenter itis, Viral (Adult) [facility] Work Phone: Patient referral [facility] Work Phone: Immunizations Immunization Date Immunization Notes Care Provider Fa [facility] 08-03-2024 influenza virus vaccine, unspecified formulation DR JAMESON GARCIA DO [facility] 08-03-2024 RSV vaccine preF3, recombinant DR JAMESON GARCIA DO [facility] 08-03-2024 SARS-CoV-2 (COVID-19 ) [id number] DR JAMESON GARCIA DO [facility] 06-25-2023 SARS-CoV-2 (COVID-19 ) [id number] MATHIEU ROLAND DO [facility] 04-22-2023 influenza virus vaccine, unspecified formulation MATHIEU ROLAND DO [facility] 04-22-2023 pneumococcal 20-sandro nt conjugate vaccine MATHIEU ROLAND DO [facility] 06-24-2022 influenza virus vaccine, unspecified formulation MARQUISE LEHMAN MD [facility] 12-17-2021 Covid (Moderna) Dr. Mathieu Roland Work Phone: [facility] 07-31-2021 SARS-CoV-2 (COVID-19 ) mRNA-[id number] vaccine MARQUISE LEHMAN MD [facility] 06-19-2021 influenza virus vaccine, unspecified formulation MARQUISE LEHMAN MD [facility] 11-09-2020 COVID-19, mRNA, LNP- S, PF, 100 mcg/ 0.5 mL dose; Translations: [Moderna COVID-19 Vaccine] MARQUISE LEHMAN MD [facility] 10-12-2020 COVID-19, mRNA, LNP- S, PF, 100 mcg/ 0.5 mL dose; Translations: [Moderna COVID-19 Vaccine] MARQUISE LEHMAN MD [facility] 05-16-2020 influenza virus vaccine, unspecified formulation MARQUISE LEHMAN MD [facility] 06-04-2019 influenza virus vaccine, unspecified formulation MARQUISE LEHMAN MD [facility] 01-12-2019 zoster vaccine recombinant MARQUISE LEHMAN MD [facility] 12-24-2018 pneumococcal polysaccharide vaccine, 23 valent MARQUISE LEHMAN MD [facility] 06-07-2018 influenza virus vaccine, unspecified formulation MARQUISE LEHMAN MD [facility] 03-23-2018 tetanus toxoid, redu jo diphtheria toxoid, and acellular pertussis vaccine, adsorbed MARQUISE LEHMAN MD [facility] 05-20-2017 influenza virus vaccine, unspecified formulation MARQUISE LEHMAN MD [facility] 05-20-2017 pneumococcal conjuga te vaccine, 13 heathent MARQUISE LEHMAN MD [facility] 05-01-2017 influenza virus vaccine, unspecified formulation MARQUISE LEHMAN MD [facility] 05-01-2017 pneumococcal conjuga te vaccine, 13 tyler LEHMAN MD [facility] 04-30-2017 pneumococcal conjuga te vaccine, 13 tyler LEHMAN MD [facility] 06-04-2016 influenza virus vaccine, unspecified formulation MARQUISE LEHMAN MD [facility] 08-31-2014 influenza virus vaccine, unspecified formulation MARQUISE LEHMAN MD [facility] Payers Date Payer Category Payer Private Health Insurance [facility] [id number] 2024 Medicare [id number] 2022 [facility] [id number] 2016 Unknown [id number] 1948 Unknown [id number] 2.16.8 [id number] 1948 Unknown [id number] 2.16.8 [id number] 1948 Unknown [id number] 2.16.8 40.1.614347.3.579.2.62 1948 Unknown [id number] 2.16.8 [id number] 1948 Unknown [id number] 2.16.8 [id number] 1948 Unknown [id number] 2.16. [id number] 1948 Unknown [id number] 2.16. 840.1.989456.3.579.2.627 1948 Unknown [id number] 2.16. [id number] 1948 Unknown [id number] 2.16. 840.1.517586.3.579.2.627 1948 Unknown [id number] 2.16. 840.1.316192.3.579.2.627 1948 Unknown [id number] 2.16.8 40.1.077490.3.579.2.627 1948 Unknown [id number] 2.16.8 40.1.693319.3.579.2.627 1948 Unknown [id number] 2.16.8 40.1.881636.3.579.2.627 1948 Unknown [id number] 2.16.8 40.1.582321.3.579.2.627 1948 Unknown [id number] 2.16.8 [id number] 1948 Unknown [id number] 2.16.8 40.1.809255.3.579.2.627 1948 Unknown [id number] 2.16.8 [id number] Unknown [id number] 2.16.8 [id number] Unknown [id number] 2.16.8 [id number] Unknown [id number] 2.16.8 [id number] Unknown [id number] 2.16.8 [id number] Social History Date Type Detail Facility Start: 09-12-2020 End: 10-20-2024 Never smoked tobacco (finding) [facility] Start: 1950 Sex Assigned At Female A [facility] Start: 08-08-2021 End: 09-15-2022 Tobacco smoking status KSIS Unknown if ever smoked [facility] Start: 07-12-[address] [facility] Start: 07-16-2020 Spouse/ Signif icant Other [facility] Start: 07-16-2020 Non-smoker;Secondhand [facility] Sexual Orientation [facility] Start: 02-23-2019 Sex Female (finding) [facility] Functional Status Date Assessment Result Facility 01-18-2022 Functional status Ambulates [facility] Work Phone: Mental Status Date Assessment Result Facility 01-18-2022 Cognitive function Level Of Consciousness Drowsy [facility] Work Phone: 01-17-2022 Cognitive function Voice/Name [facility] Work Phone: Clinical Notes 06-02-2022 to 08-29-2024 Note Date & Type Note Facility 08-29-2024 Note Exam Date Time Procedure Performing Provider Status 08/29/24 2:[address] Head or Brain w/o Contrast KAZ GUSTAFSON MD; Auth (Verified) [id number] ORIGINAL HISTORY: Dizziness, tinnitus, vertigo COMPARISON: No [...] Date: 08/29/2024 2:35:35 PM Ordering Provider: MATHIEU [facility]07-01-2024 Note ORIGINAL EXAMINATION: ULTRASOUND OF THE [...] Sign Date: 02/29/2024 2:06:10 PM Ordering Provider: [place] [address]-03-2022 Note ORIGINAL EXAMINATION: BONE DENSITOMETRY 06/02/2022 2:46 [...] 06/02/2022 4:12:45 PM Ordering Provider: MATHIEU ROLAND [facility]10-03-2022 Note ORIGINAL EXAMINATION: BONE DENSITOMETRY [...] Date: 06/02/2022 4:12:45 PM [facility] Future Appointments Appointment Date:06/25/2021 04:00:00 PM Scheduled Provider:MARQUISE LEHMAN MD Location:[facility] Appointment Type:ENDO OV Appointment Date:09/17/2021 03:30:00 PM Scheduled Provider:MATHIEU ROLAND DO Location:[facility] Appointment Type:PC OV Future Scheduled Tests Radiology* NM Myocardial Spect Rest/Stress 06/22/20 [facility] Evaluation + Plan note Future Appointments Appointment Date:08/15/2021 03:30:00 PM Scheduled Provider:MATHIEU ROLAND DO Location:[facility] Appointment Type:PC OV Appointment Date:09/17/2021 03:30:00 PM Scheduled Provider:MATHIEU ROLAND DO Location:[facility] Appointment Type:PC OV Appointment Date:10/22/2021 03:30:00 PM Scheduled Provider:MARQUISE LEHMAN MD Location:[facility] Appointment Type:ENDO OV Future Scheduled Tests Laboratory* Thyroid Stimulating Hormone 10/26/21 * A1C Hemoglobin 10/26/21 * Microalbumin Level Urine 10/26/21 * Vitamin D Level 10/26/21 * Complete Metabolic Panel 10/26/21 Radiology* XR Foot Minimum 3 Views Left 07/19/21 [facility] Evaluation + Plan note Future Appointments Appointment Date:10/22/2021 03:30:00 PM Scheduled Provider:MARQUISE LEHMAN MD Location:[facility] Appointment Type:ENDO OV Appointment Date:12/17/2021 04:00:00 PM Scheduled Provider:MATHIEU ROLAND DO Location:[facility] Appointment Type:PC OV Controlled Medication Future Scheduled Tests Laboratory* COVID-19 Only (AO) 08/29/21 * Microalbumin Level Urine 10/26/21 Radiology* XR Foot Minimum 3 Views Left 07/19/21 [facility] Evaluation + Plan note Future Appointments Appointment Date:10/22/2021 03:30:00 PM Scheduled Provider:MARQUISE LEHMAN MD Location:[facility] Appointment Type:ENDO OV Appointment Date:12/17/2021 04:00:00 PM Scheduled Provider:MATHIEU ROLAND DO Location:[facility] Appointment Type:PC OV Controlled Medication Future Scheduled Tests Laboratory* COVID-19 Only (AO) 08/29/21 Radiology* XR Foot Minimum 3 Views Left 07/19/21 [facility] Evaluation + Plan note Future Appointments Appointment Date:01/14/2022 04:00:00 PM Scheduled Provider:MATHIEU ROLAND DO Location:[facility] Appointment Type:PC Wellness Medicare Appointment Date:01/23/2022 03:15:00 PM Scheduled Provider:MARQUISE LEHMAN MD Location:[facility] Appointment Type:ENDO OV Appointment Date:03/26/2022 04:00:00 PM Scheduled Provider:MATHIEU ROLAND DO Location:[facility] Appointment Type:PC OV Future Scheduled Tests Laboratory* Thyroid Stimulating Hormone 01/19/22 * Free T4 01/19/22 * A1C Hemoglobin 01/19/22 * Lipid Profile 01/19/22 * Microalbumin Level Urine 01/19/22 * Vitamin D Level 01/19/22 * Complete Metabolic Panel 01/19/22 * Complete Metabolic Panel 12/11/21 * Complete Metabolic Panel 11/21/21 * COVID-19 Only (AO) 08/29/21 Radiology* XR Foot Minimum 3 Views Left 07/19/21 [facility] Evaluation + Plan note Future Appointments Appointment Date:01/23/2022 03:15:00 PM Scheduled Provider:MARQUISE LEHMAN MD Location:[facility] Appointment Type:ENDO OV Appointment Date:03/26/2022 04:00:00 PM Scheduled Provider:MATHIEU ROLAND DO Location:[facility] Appointment Type:PC OV Future Scheduled Tests Laboratory* Thyroid Stimulating Hormone 01/19/22 * Free T4 01/19/22 * A1C Hemoglobin 01/19/22 * Lipid Profile 01/19/22 * Microalbumin Level Urine 01/19/22 * Vitamin D Level 01/19/22 * Complete Metabolic Panel 01/19/22 * Complete Metabolic Panel 12/11/21 * Complete Metabolic Panel 11/21/21 * COVID-19 Only (AO) 08/29/21 Radiology* XR Foot Minimum 3 Views Left 07/19/21 [facility] Evaluation + Plan note Future Appointments Appointment Date:03/06/2022 02:45:00 PM Scheduled Provider:MARQUISE LEHMAN MD Location:[facility] Appointment Type:ENDO OV Appointment Date:04/16/2022 02:00:00 PM Scheduled Provider:MATHIEU ROLAND DO Location:[facility] Appointment Type:PC OV Future Scheduled Tests Laboratory* Complete Metabolic Panel 12/11/21 * Complete Metabolic Panel 11/21/21 * COVID-19 Only (AO) 08/29/21 Radiology* XR Foot Minimum 3 Views Left 07/19/21 [facility] Evaluation + Plan note Future Appointments Appointment Date:06/17/2022 02:30:00 PM Scheduled Provider:MATHIEU ROLAND DO Location:[facility] Appointment Type:PC OV Controlled Medication Appointment Date:07/10/2022 02:45:00 PM Scheduled Provider:MARQUISE LEHMAN MD Location:[facility] Appointment Type:ENDO OV Future Scheduled Tests [...] BD Bone Density DEXA Axial Skeleton 04/23/22 [facility] Evaluation + Plan note Future Appointments Appointment Date:06/17/2022 02:30:00 PM Scheduled Provider:MATHIEU ROLAND DO Location:[facility] Appointment Type:PC OV Controlled Medication Appointment Date:07/10/2022 02:45:00 PM Scheduled Provider:MARQUISE LEHMAN MD Location:[facility] Appointment Type:ENDO OV Future Scheduled Tests Laboratory* Thyroid Stimulating Hormone 07/07/22 * A1C Hemoglobin 07/07/22 * Lipid Profile 07/07/22 * Hepatitis C Antibody IgG 04/23/22 * Vitamin D Level 07/07/22 * Complete Metabolic Panel 12/11/21 * Complete Metabolic Panel 11/21/21 * Complete Metabolic Panel 07/07/22 * COVID-19 Only (AO) 08/29/21 Radiology* XR Foot Minimum 3 Views Left 07/19/21 [facility] Evaluation + Plan note Future Appointments Appointment Date:10/02/2022 11:30:00 AM Scheduled Provider:MARQUISE LEHMAN MD Location:[facility] Appointment Type:ENDO OV Appointment Date:10/21/2022 03:30:00 PM Scheduled Provider:MATHIEU ROLAND DO Location:[facility] Appointment Type:PC OV Appointment Date:12/16/2022 03:30:00 PM Scheduled Provider:MATHIEU ROLAND DO Location:[facility] Appointment Type:PC OV Controlled Medication Future Scheduled Tests Laboratory* Hepatitis C Antibody IgG 04/23/22 * Complete Metabolic Panel 12/11/21 * Complete Metabolic Panel 11/21/21 [facility] Evaluation + Plan note Future Appointments Appointment Date:02/19/2023 03:00:00 PM Scheduled Provider:MARQUISE LEHMAN MD Location:[facility] Appointment Type:ENDO OV Appointment Date:03/18/2023 04:00:00 PM Scheduled Provider:MATHIEU ROLAND DO Location:[facility] Appointment Type:PC OV Controlled Medication Diagnostic Tests Pending * Vitamin D Level 02/12/23 Future Scheduled Tests Laboratory* Hepatitis C Antibody IgG 04/23/22 [facility] Evaluation + Plan note Future Appointments Appointment Date:09/10/2023 04:30:00 PM Scheduled Provider:MATHIEU ROLAND DO [facility] [facility] Appointment Type:PC OV Appointment Date:10/27/2023 03:15:00 PM Scheduled Provider:MARQUISE LEHMAN MD Location:[facility] Appointment Type:ENDO OV Future Scheduled Tests Laboratory* Thyroid Stimulating Hormone 10/26/23 * Free T4 10/26/23 * A1C Hemoglobin 10/26/23 * Lipid Profile 10/26/23 * Albumin/Creatinine Ratio, Random Urine 10/26/23 * Vitamin D Level 10/26/23 * Complete Metabolic Panel 10/26/23 Radiology* US Thyroid 10/26/23 [facility] Evaluation + Plan note Future Appointments Appointment Date:10/27/2023 03:15:00 PM Scheduled Provider:MARQUISE LEHMAN MD Location:[facility] Appointment Type:ENDO OV Appointment Date:12/10/2023 03:00:00 PM Scheduled Provider:MATHIEU ROLAND DO Location:[facility] Appointment Type:PC OV Controlled Medication Future Scheduled Tests Laboratory* Complete Metabolic Panel 09/01/23 Radiology* US Thyroid 10/26/23 [facility] Evaluation + Plan note Future Appointments Appointment Date:03/10/2024 02:15:00 PM Scheduled Provider:MARQUISE LEHMAN MD Location:[facility] Appointment Type:ENDO OV Appointment Date:03/17/2024 03:30:00 PM Scheduled Provider:MATHIEU ROLAND DO Location:[facility] Appointment Type:PC OV Controlled Medication Future Scheduled Tests Laboratory* Complete Metabolic Panel 09/01/23 Radiology* US Thyroid 10/26/23 [facility] Evaluation + Plan note Future Appointments Appointment Date:08/22/2024 01:00:00 PM Scheduled Provider: Location:[facility] Appointment Type:MA Mammogram Screening Bilateral w/ [place] Appointment Date:08/22/2024 01:30:00 PM Scheduled Provider: Location:[facility] Appointment Type:BD Bone Density DEXA Axial Skeleton Appointment Date:09/08/2024 03:00:00 PM Scheduled Provider:MARQUISE LEHMAN MD Location:[facility] Appointment Type:ENDO OV Appointment Date:09/15/2024 02:30:00 PM Scheduled Provider:MATHIEU ROLAND DO Location:[facility] Appointment Type:PC OV Controlled Medication Future [...] or older) 08/22/24 * US Thyroid 10/26/23 [facility] Evaluation + Plan note Future Appointments Appointment Date:09/08/2024 03:00:00 PM Scheduled Provider:MARQUISE LEHMAN MD Location:[facility] Appointment Type:ENDO OV Appointment Date:09/15/2024 02:30:00 PM Scheduled Provider:MATHIEU ROLAND DO Location:[facility] Appointment Type:PC OV Controlled Medication Future Scheduled Tests Laboratory* Thyroid Stimulating Hormone 09/10/24 * Free T4 09/10/24 * A1C Hemoglobin 09/10/24 * Free T3 09/10/24 * Lipid Profile 09/10/24 * Albumin/Creatinine Ratio, Random Urine 09/10/24 * Vitamin D Level 09/10/24 * Complete Metabolic Panel 09/10/24 * Complete Metabolic Panel 09/01/23 Radiology* US Thyroid 10/26/23 [facility] Evaluation + Plan note Future Appointments Appointment Date:09/08/2024 03:00:00 PM Scheduled Provider:MARQUISE LEHMAN MD Location:[facility] Appointment Type:ENDO OV Appointment Date:09/15/2024 02:30:00 PM Scheduled Provider:MATHIEU ROLAND DO Location:[facility] Appointment Type:PC OV Controlled Medication Future Scheduled Tests Radiology* US Thyroid 10/26/23 [facility] Evaluation + Plan note Future Appointments Appointment Date:10/13/2024 03:00:00 PM Scheduled Provider: Location:[facility] Appointment Type:ENDO Nurse Appointment Date:10/20/2024 04:00:00 PM Scheduled Provider:MATHIEU ROLAND DO Location:[facility] Appointment Type:PC OV Appointment Date:01/12/2025 03:00:00 PM Scheduled Provider:MARQUISE LEHMAN MD Location:[facility] Appointment Type:ENDO OV Future Scheduled Tests Laboratory* Thyroid Stimulating Hormone 01/06/25 * A1C Hemoglobin 01/06/25 * Free T3 01/06/25 * Lipid Profile 01/06/25 * Albumin/Creatinine Ratio, Random Urine 01/06/25 * Vitamin D Level 01/06/25 * Complete Metabolic Panel 01/06/25 Radiology* US Thyroid 10/26/23 [facility] ResQUaluation + Plan note Future Appointments Appointment Date:01/12/2025 03:00:00 PM Scheduled Provider:MARQUISE LEHMAN MD Location:[facility] Appointment Type:ENDO OV Appointment Date:03/16/2025 02:30:00 PM Scheduled Provider:MATHIEU ROLAND DO Location:[facility] Appointment Type:PC OV Controlled Medication [facility] Evaluation + Plan note Future Appointments Appointment Date:03/01/2025 04:00:00 PM Scheduled Provider:Jay Khan PT Location:[facility] Appointment Type:PT Treatment [facility] Appointment Date:03/16/2025 02:30:00 PM Scheduled Provider:MATHIEU ROLAND DO Location:[facility] Appointment Type:PC OV Controlled Medication Appointment Date:03/20/2025 04:00:00 PM Scheduled Provider: Location:[facility] Appointment Type:Echo - Echocardiogram Adult Appointment Date:06/07/2025 02:00:00 PM Scheduled Provider: Location:[facility] Appointment Type:US Thyroid Appointment Date:06/15/2025 03:30:00 PM Scheduled Provider:MARQUISE LEHMAN MD Location:[facility] Appointment Type:ENDO OV Future Scheduled Tests Laboratory* Basic Metabolic Panel 02/23/25 * Thyroid Stimulating Hormone 06/14/25 * Free T4 06/14/25 * A1C Hemoglobin 06/14/25 * Lipid Profile 06/14/25 * Albumin/Creatinine Ratio, Random Urine 06/14/25 * Vitamin D Level 06/14/25 * Complete Metabolic Panel 06/14/25 Radiology* US Thyroid 06/07/25 [facility] Evaluation + Plan note Future Appointments Appointment Date:03/01/2025 04:00:00 PM Scheduled Provider:Jay Khan PT Location:[facility] Appointment Type:PT Treatment [facility] Appointment Date:03/16/2025 02:30:00 PM Scheduled Provider:MATHIEU ROLAND DO Location:[facility] Appointment Type:PC OV Controlled Medication Appointment Date:03/20/2025 04:00:00 PM Scheduled Provider: Location:[facility] Appointment Type:Echo - Echocardiogram Adult Appointment Date:06/07/2025 02:00:00 PM Scheduled Provider: Location:[facility] Appointment Type:US Thyroid Appointment Date:06/15/2025 03:30:00 PM Scheduled Provider:MARQUISE LEHMAN MD Location:[facility] Appointment Type:ENDO OV Future Scheduled Tests Laboratory* Basic Metabolic Panel 02/24/25 * Basic Metabolic Panel 02/23/25 * Thyroid Stimulating Hormone 06/14/25 * Free T4 06/14/25 * A1C Hemoglobin 06/14/25 * Lipid Profile 06/14/25 * Albumin/Creatinine Ratio, Random Urine 06/14/25 * Vitamin D Level 06/14/25 * Complete Metabolic Panel 06/14/25 Radiology* US Thyroid 06/07/25 [facility] Evaluation note* Diagnosis Onset Date [...] 2 diabetes mellitus acute Hypertension chronic Hypothyroidism [facility] Work Phone: Evaluation note* Diagnosis Onset [...] Wound infection acute Type 2 diabetes mellitus [place] Work Phone: Evaluation note* Diagnosis Onset Date [...] chronic Type 2 diabetes mellitus chr onic [facility] Work Phone: Evaluation note* Diagnosis Onset Date [...] Gangrene of toe of left foot resolved [facility] Work Phone: Evaluation noteNo assessment information available [facility] Work Phone: Hospital course Narrative No data available for this section [facility] Hospital Discharge instructions No data available for this section [facility] Progress note No data available for this section [facility] Chief Complaint and Reason for [...] November 16th, 2 020 6:34pm Power of Production Welder No July 16, 2020 6:34pm Advance Directive Response Recorded Date/ Time Living Will No January 14, 2022 7 :06pm Power of Production Welder No January 14, 2022 7:06pm Advance Directive Response Recorded Date/ Time Living Will No January 14, 2022 1 1:01pm Power of Production Welder No January 14, 2022 11:01pm Advance Directive Response Recorded Date/ Time Living Will No September 15 11:53pm Power of Production Welder No September 15, 2022 11:53pm Summary Purpose [...] DO Primary Care Provider Active Dr. Whitney tOt MD Attending Provider, Emergency Provider Active Team Status: Inactive Member Role Status Dates Dr. Mathieu Roland DO Primary Care Provider Active Dr. Edin Schmidt DPM Attending Provider Active Care Team (unrecognized sect ion and content) Care Team Personnel Name: MATHIEU ROLAND DO Position: P4 Physician - Primary Care Med Service: Active Provider Member Role: Primary Care Physician Address: Address: [address] [place] [address] [facility] [address] Name: MARQUISE LEHMAN MD Position: P4 Physician - Endocrinology Med Service: Active Provider Member Role: Ramp Jockey Address: Address: [address] [place] [address], [place] [address]- Name: CURT JORDAN DPM Position: Physician Med Service: Admitting Member Role: [employer] Safety Program Coordinator Address: Address: [address] [place] [address], [place] [address] [facility] [place], [place] [id number] [place] [address] Care Team Related Persons Name: ALBERTO GREGORY Care Team Personnel Name: MATHIEU ROLAND DO Position: P4 Physician - Primary Care Member Role: Primary Care Physician Address: Address: [address] [place] [address] Name: MARQUISE LEHMAN MD Position: P4 Physician - Endocrinology Address: Address: [address] [place] [address] [place], [place] [address]- Name: CURT JORDANM Position: Physician Address: Address: [address] [place] [address], [address] [facility] [address] Care Team Related Persons Name: ALBERTO GREGORY Care Team Personnel Name: MATHIEU ROLAND DO Position: P4 Physician - Primary Care Med Service: Active Provider Member Role: Primary Care Physician Address: Address: [address] [place] [address] Name: MARQUISE LEHMAN MD Position: P4 Physician - Endocrinology Med Service: Active Provider Member Role: Ramp Jockey Address: Address: [address] [place] [address], [address] Name: CURT JORDAN DPM Position: Physician Med Service: Admitting Member Role: [employer] Safety Program Coordinator Address: Address: [address] [place] [address], [address] [facility] [address] Care Team Related Persons Name: ALBERTO GREGORY Care Team Personnel Name: MATHIEU ROLAND DO Position: P4 Physician - Primary Care Member Role: Primary Care Physician Address: Address: [address] [place] [address] Name: MARQUISE LEHMAN MD Position: P4 Physician - Endocrinology Member Role: Ramp Jockey Address: Address: [address] [place] [address], [place] [address]- Name: CURT JORDAN DPM Position: Physician Member Role: [employer] Safety Program Coordinator Address: Address: [address] [place] [address], [address] [facility] [place] [address]- Care Team Related Persons Name: ALBERTO GREGORY INFORMATION SOURCE (unrecogn ized section and content) DATE CREATED AUTHOR 08/29/2023 [facility] DATE CREATED AUTHOR AUTHOR'S ORGANIZ ATION 03/16/20[facility] DATE CREATED AUTHOR AUTHOR'S ORGANIZ ATION 09/19/2024 [facility] DATE CREATED AUTHOR AUTHOR'S ORGANIZ ATION 03/02/2025 [facility] FOR RECORDS PERTAINING TO PATIENTS WHO [...] BE BASED ON THE PRIMARY CLINICAL RECORDS. [facility]. provides no warranty or guarantee of the accuracy or completeness of information in this document.
[2025-03-02 23:47] VITALS: BMI 27.1
[2025-03-03] VITALS (9 sets, daily range): BP systolic 123–138; BP diastolic 53–72; PULSE 77–102; RESP 16–18; TEMP 36.7–37.1; O2SAT 97–100; BMI 27.1
[2025-03-03] MEDS: 0.9% Saline Lock 10 ML Syringe IV ×2 (01:15→21:30)
[2025-03-03] MEDS: 0.9% Normal Saline (1000mL) 1,000 ML 100 ML IV ×2 (01:15→11:11)
[2025-03-03] MEDS: HYDROcodone Bitartrate/Apap 5/325 Tablet PO ×2 (01:40→21:36)
[2025-03-03 06:07] LABS: Hematocrit 37.0 % (37-47); Hemoglobin 13.0 g/dL (12.0-15.0); Immature Granulocytes Count 0.020 X10^3/uL (0.0-0.0); Mean Corp Hgb Conc 35.1 g/dL (32-36); Mean Corpuscular Volume 88.5 fL (81-99); Mean Platelet Vol. 10.9 fl (6.2-12.0); NRBC Flagged by Analyzer 0 % (0-5); Platelet Count 110 K/mm3 (150-450); RBC Distribution Width CV 11.7 % (11.6-14.6); RBC Distribution Width SD 37.4 fl (35.1-43.9); Red Blood Count 4.18 M/mm3 (4.2-5.4); White Blood Count 4.9 K/mm3 (4.4-11.0)
[2025-03-03 06:19] LABS: AST(SGOT) 29 U/L (<=31); Alanine Aminotransfer ALT/SGPT 13 U/L (<=34); Albumin, Serum 3.6 g/dL (3.4-4.8); Alkaline Phosphatase 55 U/L (35-104); Anion Gap 8 (5-15); BUN 9 mg/dL (4-19); BUN/Creat Ratio 12.3 RATIO (10-20); Calcium,Total 8.5 mg/dL (7.6-11.0); Carbon Dioxide 23.5 mmol/L (21.0-32.0); Chloride 100 mmol/L (98-108); Estimated Creatinine Clearance 60.22 ml/min (50-250); Globulin 2.2 g/dL (2.2-4.2); Glucose 169 mg/dL (70-99); Potassium 4.7 mmol/L (3.3-5.1)
--- NOTE | 2025-03-03 07:11 | PN.HOSP_ITS ---
Reason for Visit Reason for Visit: Diarrhea/generalized weakness/falls Subjective Subjective No diarrhea since admission. Patient states she has ongoing issues with intermittent diarrhea and that is not a new etiology for her. She states she feels her weakness is much better and reports that she is at least 90% better from her baseline. She reports that she still has a mild tremor. Anxious to go home. I did discuss with her would like to have a little bit better idea that her sodium will stay elevated and she is clinically stable with another 24 hours of IV antibiotics. Patient is amenable. She currently has outpatient physical therapy in [place] and would like to continue this. She does not want to be placed. Ambulates with a walker at baseline for the most part but does have intermittent use of wheelchair. Objective Data Objective Data Vital Signs: Vital Signs Temp Pulse Resp BP Pulse Ox O2 Del Method 98.4 F 77 18 123/62 H 99 Room Air 03/03/25 06:09 03/03/25 06:09 03/03/25 06:09 03/03/25 06:09 03/03/25 06:09 03/03/25 06:09 Oxygen Delivery Method Room Air Weight: 73.9 kg Body Mass Index (BMI) 27.1 Intake & Output: Intake and Output for Last 24 Hours 03/01/25 03/02/25 03/03/25 23:59 23:59 23:59 Intake Total 250 / 250 Output Total 550 / 550 Balance -300 / -300 Lab / Micro Data 03/03/25 05:21 03/03/25 05:21 Labs: Laboratory Results - last 24 hr 03/02/25 19:30: WBC 5.8, RBC 4.32, Hgb 13.5, Hct 38.6, MCV 89.4, MCH 31.3, MCHC 35.0, RDW Std Deviation 38.5, RDW Coeff of Pedro 11.9, Plt Count 183, MPV 12.0, Immature Gran % (Auto) 0.200, Neut % (Auto) 77.0 H, Lymph % (Auto) 14.2 L, [place] % (Auto) 8.0, Eos % (Auto) 0.3, Baso % (Auto) 0.3, Absolute Neuts (auto) 4.4, A bsolute Lymphs (auto) 0.82 L, Nucleated RBC % 0, Sodium Cancelled, Potassium Cancelled, Chloride Cancelled, Carbon Dioxide Cancelled, Anion Gap Cancelled, BUN Cancelled, Creatinine Cancelled, Estim Creat Clear Calc Cancelled, Est GFR (MDRD) Non-Af Cancelled, BUN/Creatinine Ratio Cancelled, Glucose Cancelled, Calcium Cancelled, Total Bilirubin Cancelled, AST Cancelled, ALT Cancelled, Alkaline Phosphatase Cancelled, Total Protein Cancelled, Albumin Cancelled, Globulin Cancelled, Albumin/Globulin Ratio Cancelled 03/02/25 19:55: Urine Color Straw, Urine Clarity Cloudy, Urine pH 5.0, Ur Specific [place] 1.020, Urine Protein 15 H, Urine Glucose (UA) 100 H, Urine Ketones Negative, Urine Occult Blood 10 H, Urine Nitrite Negative, Urine Bilirubin Negative, Urine Urobilinogen Normal, Ur Leukocyte Esterase 500 H, Urine RBC 0 SEEN, Urine WBC >100 SEEN, Ur Squamous Epith Cells 0 SEEN, Urine Bacteria 4+, Hyaline Casts 5-10 SEEN, Urine Mucus 0 SEEN, Urine Osmolality 324 03/02/25 21:16: Sodium 125 L, Potassium 5.1, Chloride 93 L, Carbon Dioxide 22.8, Anion Gap 9, BUN 14, Creatinine 0.83, Estim Creat Clear Calc 58.15, Est GFR (MDRD) Non-Af 73, BUN/Creatinine Ratio 16.3, Glucose 196 H, Calcium 8.9, Magnesium 2.2, Total Bilirubin 0.38, AST 30, ALT 15, Alkaline Phosphatase 58, T otal Creatine Kinase 574 H, Total Protein 6.2, Albumin 3.7, Globulin 2.5, Albumin/Globulin Ratio 1.5, TSH 1.390 03/02/25 23:12: Serum Osmolality 273 L 03/03/25 05:21: WBC 4.9, RBC 4.18 L, Hgb 13.0, Hct 37.0, MCV 88.5, MCH 31.1, MCHC 35.1, RDW Std Deviation 37.4, RDW Coeff of Pedro 11.7, Plt Count 110 L, MPV 10.9, Immature Gran % (Auto) 0.400, Neut % (Auto) 67.6, Lymph % (Auto) 22.1, [place] % (Auto) 8.3, Eos % (Auto) 0.8, Baso % (Auto) 0.8, Absolute Neuts (auto) 3.3, Absolute Lymphs (auto) 1.09, Nucleated RBC % 0, Sodium 131 L, Potassium 4.7, Chloride 100, Carbon Dioxide 23.5, Anion Gap 8, BUN 9, Creatinine 0.74, Estim Creat Clear Calc 60.22, Est GFR (MDRD) Non-Af 84, BUN/Creatinine Ratio 12.3, Glucose 169 H, Calcium 8.5, Phosphorus 2.9, Total Bilirubin 0.32, AST 29, ALT 13, Alkaline Phosphatase 55, Total Protein 5.8 L, Albumin 3.6, Globulin 2.2, Albumin/Globulin Ratio 1.6 Radiography Diagnostic Testing: Radiology Impression Brain CT 03/02/25 19:17 IMPRESSION: No acute intracranial finding. Reading Location: [facility] Physical Exam Const alert, oriented x3, no apparent distress, average body habitus and well nourished Constitutional Narrative: Very pleasant, older, white female, sitting up in a chair at the bedside getting ready to eat breakfast HEENT head/scalp atraumatic and moist oral mucous membranes Head and Scalp: normocephalic Resp normal respiratory effort, no retractions, no use of accessory muscles and clear to auscultation bilaterally Auscultation: Negative for rales, rhonchi or wheezes Cardio regular rate, regular rhythm, S1 normal heart sound, S2 normal heart sound, no murmurs, no rub, no gallops and no clicks GI normal to inspection, nondistended, normoactive bowel sounds, soft to palpation and non-tender Extremity no clubbing, cyanosis or edema Extremity Narrative: 2+ pedal pulses Neuro oriented x3, moves all extremities and no focal motor deficits Neuro Narrative: Mild tremor but seems to be intention predominantly Speech: speech normal Psych affect normal Psych Narrative: Very pleasant, eye contact is good and patient interacts appropriately Assessment & Plan Assessment/Plan (1) Ambulatory dysfunction: (2) Acute cystitis without hematuria: (3) Watery diarrhea: (4) Acute hyponatremia: (5) Adverse drug reaction: QUALIFIERS: Encounter type: initial encounter Qualified Code(s): T50.905A - Adverse effect of unspecified drugs, medicaments and biological substances, initial encounter (6) Generalized weakness: PLAN: Plan Acute hyponatremia - Improving and now up to 131 from 125 - Continue to hold hydrochlorothiazide and will likely discontinue at discharge - Will go ahead and stop IV fluids for now as patient's oral intake is adequate - Repeat BMP in a.m. Abnormal UA - Highly suspected for infection - Continue ceftriaxone - Await culture results and narrow accordingly Diarrhea - Patient has had no loose stool since she was admitted. States she took some outpatient Imodium - She also states that this is not a new issue for her - Will collect stool sample if we can to rule out enteric pathologies and C. difficile if not and this is ongoing recommend outpatient GI follow-up Atrial fibrillation - Continue apixaban - Patient is rate controlled without any medication Essential hypertension/hyperlipidemia - Continue home amlodipine, ramipril - Hold HCTZ - Continue home rosuvastatin Hypothyroidism - Continue home levothyroxine - TSH is within normal limits Neuropathy - Continue home gabapentin Generalized anxiety - Continue home Xanax RN DVT prophylaxis - Continue home apixaban CODE STATUS Full code Charges/Coding Visit Charges Inpatient E&M: 94334 Subs Hosp L2
[2025-03-03] MEDS: Ergocalciferol 1.25 MG (50, 000 UNIT) Capsule PO (08:50)
[2025-03-03] MEDS: APIXABAN 2.5 MG TABLET (WCH) PO ×2 (08:50→21:37)
[2025-03-03 13:11] LABS: Anion Gap 10 (5-15); BUN 7 mg/dL (4-19); BUN/Creat Ratio 10.4 RATIO (10-20); Calcium,Total 8.2 mg/dL (7.6-11.0); Carbon Dioxide 21.7 mmol/L (21.0-32.0); Chloride 100 mmol/L (98-108); Estimated Creatinine Clearance 60.22 ml/min (50-250); Glucose 267 mg/dL (70-99); Potassium 4.4 mmol/L (3.3-5.1)
[2025-03-03] MEDS: Oxymetazoline 0.05% 1 SPRAY SPRAY.BTL NASAL (21:37)
[2025-03-04] MEDS: MELATONIN 3 MG TABLET PO (00:02)
[2025-03-04 03:33] VITALS: BP 136/73; PULSE 72; RESP 16; TEMP 36.6; O2SAT 99
[2025-03-04 05:56] VITALS: BMI 27.1
[2025-03-04 06:54] LABS: Hematocrit 36.6 % (37-47); Hemoglobin 12.8 g/dL (12.0-15.0); Mean Corp Hgb Conc 35.0 g/dL (32-36); Mean Corpuscular Volume 89.5 fL (81-99); Mean Platelet Vol. 10.5 fl (6.2-12.0); Platelet Count 112 K/mm3 (150-450); RBC Distribution Width CV 11.9 % (11.6-14.6); RBC Distribution Width SD 39.0 fl (35.1-43.9); Red Blood Count 4.09 M/mm3 (4.2-5.4); White Blood Count 4.9 K/mm3 (4.4-11.0)
[2025-03-04 08:07] LABS: Anion Gap 10 (5-15); BUN 5 mg/dL (4-19); BUN/Creat Ratio 7.3 RATIO (10-20); Calcium,Total 8.6 mg/dL (7.6-11.0); Carbon Dioxide 23.0 mmol/L (21.0-32.0); Chloride 103 mmol/L (98-108); Estimated Creatinine Clearance 60.18 ml/min (50-250); Glucose 183 mg/dL (70-99); Magnesium 1.8 mg/dL (1.5-2.2); Potassium 4.1 mmol/L (3.3-5.1)
[2025-03-04] MEDS: Glucerna Shake 120 ML LIQUID PO (09:00)
[2025-03-04] MEDS: APIXABAN 2.5 MG TABLET (WCH) PO (09:01)
[2025-03-04 09:30] VITALS: BP 133/61; PULSE 77; RESP 16; TEMP 36.8; O2SAT 99
--- NOTE | 2025-03-04 13:12 | PCM.DC.SUM ---
Providers Date of Admission: 03/02/25 Date of Discharge: 03/04/25 Primary Care Physician: Dr. Marion Roland, DO Reason For Visit: HYPONATREMIA, ADR TO HCTZ & UTI Diagnosis Discharge Diagnosis (1) Ambulatory dysfunction: Status: Acute Code(s): R26.2 - Difficulty in walking, not elsewhere classified (2) Acute cystitis without hematuria: Status: Acute Code(s): N30.00 - Acute cystitis without hematuria (3) Watery diarrhea: Status: Acute Code(s): R19.7 - Diarrhea, unspecified (4) Acute hyponatremia: Status: Acute Code(s): E87.1 - Hypo-osmolality and hyponatremia (5) Adverse drug reaction: Status: Acute Code(s): T50.905A - Adverse effect of unspecified drugs, medicaments and biological substances, initial encounter Qualifiers: Encounter type: initial encounter Qualified Code(s): T50.905A - Adverse effect of unspecified drugs, medicaments and biological substances, initial encounter (6) Generalized weakness: Status: Acute Code(s): R53.1 - Weakness Plan Acute hyponatremia - Improving and now up to 131 from 125 - Continue to hold hydrochlorothiazide and will likely discontinue at discharge - Will go ahead and stop IV fluids for now as patient's oral intake is adequate - Repeat BMP in a.m. Abnormal UA - Highly suspected for infection - Continue ceftriaxone - Await culture results and narrow accordingly Diarrhea - Patient has had no loose stool since she was admitted. States she took some outpatient Imodium - She also states that this is not a new issue for her - Will collect stool sample if we can to rule out enteric pathologies and C. difficile if not and this is ongoing recommend outpatient GI follow-up Atrial fibrillation - Continue apixaban - Patient is rate controlled without any medication Essential hypertension/hyperlipidemia - Continue home amlodipine, ramipril - Hold HCTZ - Continue home rosuvastatin Hypothyroidism - Continue home levothyroxine - TSH is within normal limits Neuropathy - Continue home gabapentin Generalized anxiety - Continue home Xanax RN DVT prophylaxis - Continue home apixaban CODE STATUS Full code Medications at Discharge Home Medications alprazolam 0.5 mg tablet 0.5 mg PO TID PRN PRN Anxiety 07/16/20 clopidogrel 75 mg tablet 75 mg PO DAILY anti platelet 07/16/20 ergocalciferol (vitamin D2) 1,250 mcg (50,000 unit) capsule 1.25 unit PO QWEEK PRN supplement 07/16/20 furosemide 40 mg tablet 40 mg PO DAILY fluid 07/16/20 gabapentin 600 mg tablet 600 mg PO BIDCM neuropathy 07/16/20 hydrocodone-acetaminophen 5-325mg 5mg-325mg 1 ea PO BID PRN PRN Not Specified 07/16/20 levothyroxine 50 mcg tablet 50 mcg PO DAILY thyroid 07/16/20 potassium chloride 20 mEq tablet,extended release(part/cryst) 20 meq PO DAILYCM #30 tabs 07/19/20 metoclopramide HCl 10 mg tablet (Reglan) 10 mg PO Q6H PRN nausea and vomiting #14 tabs 09/16/22 amlodipine 5 mg tablet 5 mg PO DAILY #30 tabs 08/22/23 ramipril 10 mg capsule 20 mg PO DAILY BP 03/02/25 rosuvastatin 10 mg tablet 10 mg PO DAILY cholesterol 03/02/25 apixaban 5 mg tablet (Eliquis) 2.5 mg (1/2 x 5 mg) PO BID #0 tabs 03/04/25 cephalexin 500 mg capsule 500 mg PO BID #2 caps 03/04/25 Hospital Course Operations None Procedures - (CT brain) Summary of Care Provided Minutes Spent on Discharge: 36 Hospital Course: Mrs. De Los Santos is a debilitated 74-year-old white female who reported to the emergency department [facility] on 03/29/2025 with chief complaint of generalized weakness and falls. She also has been having watery diarrhea. That had been attributed to adverse reactions to semaglutide which has been discontinued. She feels that overall the diarrhea she was experiencing was better but she still is having some intermittent diarrhea and felt like she became weaker than she has at baseline. She does receive regular physical therapy as an outpatient due to her decreased strength. She states she has chronic low back pain and is wheelchair-bound the morning but as the day goes on her pain subsides and she is able to ambulate some with a walker. This was worse than her baseline and she had 2 falls prior to presentation so she like the emergency department. One of the falls are Got caught between the leg and caused her to trip and fall hitting her head. She did have a bruise over her left eye related to this fall but had no other injury. Patient did not find having any previous issues with hyponatremia. Other than her diarrhea she had only some urinary frequency. Vital signs on presentation showed a temperature of 97.3, heart rate 68, respiratory rate 18, blood pressure 116/54 and pulse ox was 90% room air. CBC was unremarkable. Chemistry panel showed hyponatremia sodium of 125 and hypochloremia with a chloride of 93. Blood glucose was 196. UA was suggestive of infection having small occult blood, leuk esterase, greater than 100 white cells and 4+ bacteria. Liver functions were normal. CT of the brain was done due to fall no acute cranial abnormalities were noted. She was admitted to the medical surgical floor and hydrated. Her HCTZ was held due to hyponatremia and she was started on IV antibiotics after culture was sent, as there was concern for urinary tract infection. With time her strength slowly improved. She did complain of a tremor initially on March 03 but this had completely resolved and she was back to her baseline on March 04. She stated she was at 100% better than arrival and was anxious to go home on 03/04/2025. Her blood pressures overall were not bad off her HCTZ. Will go ahead and restart her Lasix but keep her off HCTZ. I have encouraged her to follow-up with her primary care physician next week and she should have a repeat BMP to ensure stability of her sodium levels with reinitiation of Lasix. I did not start a new antihypertensive on her her at this time as her systolic blood pressures were predominantly in the 130s. If she maintains this or higher she may need an increase in her amlodipine or a new medication. I will leave this up to her primary care physician follow-up. She did complain of watery diarrhea and we did obtain enteric panel and C. difficile. These were all negative. Lactoferrin was unremarkable. Patient was discharged home on 03/04/2025 in stable condition. If her loose stool/diarrhea continue to be an issue she should have outpatient follow-up with gastroenterology. With regards to urinary tract infection that showed mixed organisms however she was symptomatic so I will go ahead and complete treatment with 1 more day of antibiotics for an uncomplicated UTI. Keflex was sent to local pharmacy at the time of discharge. Discharge diagnoses: Acute hyponatremia Adverse drug reaction-HCTZ Acute uncomplicated UTI Diarrhea Atrial fibrillation Essential hypertension Hyperlipidemia Hypothyroidism Neuropathy Generalized anxiety Physical Exam Narrative Patient states she feels 100% better than when she got here. Tremor has resolved and she is anxious to go home for [employer] in [place]. Const alert, oriented x3, no apparent distress, average body habitus, no limitations, healthy appearing and well nourished Constitutional Narrative: Very pleasant, older, white female, transitioning to the bedside commode with nurses aide using a wheeled walker, appears comfortable, nontoxic General Appearance: cooperative, comfortable, well kempt and well developed Exam Limitations: no limitations Nutritional Appearance: overweight HEENT normocephalic, head/scalp atraumatic and moist oral mucous membranes HEENT Narrative: Mallampati 2, no thrush Eyes conjunctivae normal Eyes Narrative: No scleral icterus Neck supple Neck Narrative: Trachea midline Resp normal respiratory effort, no retractions, no use of accessory muscles and clear to auscultation bilaterally Auscultation: Negative for rales, rhonchi or wheezes Cardio regular rate, regular rhythm, S1 normal heart sound, S2 normal heart sound, no murmurs, no rub, no gallops and no clicks GI normal to inspection, nondistended, normoactive bowel sounds, soft to palpation and non-tender Extremity no clubbing, cyanosis or edema Extremity Narrative: 2+ pedal pulses Skin skin turgor normal and no jaundice Skin Narrative: Bilateral lower extremity chronic venous stasis 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6 L, MCV 89.5, MCH 31.3, MCHC 35.0, RDW Std Deviation 39.0, RDW Coeff of Pedro 11.9, Plt Count 112 L, MPV 10.5, Sodium 136, Potassium 4.1, Chloride 103, Carbon Dioxide 23.0, Anion Gap 10, BUN 5, Creatinine 0.67 L, Estim Creat Clear Calc 60.18, Est GFR (MDRD) Non-Af 91, BUN/Creatinine Ratio 7.3 L, Glucose 183 H, Calcium 8.6, Phosphorus 3.2, Magnesium 1.8 Microbiology: Microbiology 03/04/25 10:50 Stool Stool Lactoferrin - Final 03/04/25 10:50 Stool Clostridioides difficile (PCR) - Final 03/02/25 19:55 Interface Orders Urine Culture - Final Mixed Gram Pos & Gram Neg Org D/C Instructions Discharge Diet: Low fat / Low cholesterol and 1800 Calorie Control Diet Discharge Activity: Return to Normal Activity and Use Walker DC O2, CPAP, BIPAP Needs Home O2 Discharge instructions: No DC home with Oxygen: No Meaningful Use Info Meaningful Use Meaningful Use Diagnoses (Choose all that apply): None applicable Ischemic Stroke Statin Dosing Therapy Reference: STATIN DOSE THERAPY REFERENCE: * Patients > 75 years receive moderate or high dose statin therapy. * Patients 75 years or YOUNGER should receive HIGH intensity statin dose unless contraindicated. You will be required to document reason for non-treatment if statin daily dose does not meet guidelines. HIGH DOSE STATIN THERAPY DAILY Atorvastatin > than or = to 40 mg Rosuvastatin > than or = to 20 mg Amlodipine + Atorvastatin > than or = to 2.5/40 mg Ezetimibe + Simvastatin 10/80 mg Simvastatin 80mg Discharge Plan Admission Admit Date/Time: 03/02/25 22:54 Primary Reason for Your Visit: Hyponatremia/generalized weakness Attending Provider: Brittany Yarbrough Primary Care Provider: Marion Roland Consulting Providers: Eder Lujan Instructions Additional Instructions / Restrictions: 1. Please stop taking your hydrochlorothiazide as I suspect this in combination with your Lasix caused your sodium levels to drop 2. Please follow-up with your outpatient primary care physician to have your blood pressure reevaluated. Your blood pressure while here was not markedly elevated despite discontinuing HCTZ so you may not need new medication but need follow-up to ensure that this is the case 3. Continue your ongoing outpatient physical therapy 4. Okay to use as needed Imodium for loose stool and if this is persistent would recommend outpatient follow-up with a barrel charrer helper Discharge Orders/Prescriptions Prescriptions: New Eliquis 5 mg Tablet 2.5 mg PO BID Qty: 0 0RF cephalexin 500 mg capsule 500 mg PO BID Qty: 2 0RF Continued furosemide 40 MG tablet 40 mg PO DAILY gabapentin 600 MG tablet 600 mg PO BIDCM hydrocodone-acetaminophen 1 EACH tablet 1 ea PO BID PRN PRN (Reason: Not Specified) clopidogrel 75 MG tablet 75 mg PO DAILY levothyroxine 50 MCG tablet 50 mcg PO DAILY alprazolam 0.5 MG tablet 0.5 mg PO TID PRN PRN (Reason: Anxiety) ergocalciferol (vitamin D2) 50,000 UNIT capsule 1.25 unit PO QWEEK PRN (Reason: supplement) Rx Instructions: takes Fridays potassium chloride 20 MEQ tablet 20 meq PO DAILYCM Qty: 30 0RF Rx Instructions: Take with furosemide/Lasix metoclopramide HCl [Reglan] 10 mg tablet 10 mg PO Q6H PRN (Reason: nausea and vomiting) Qty: 14 0RF amlodipine 5 mg tablet 5 mg PO DAILY Qty: 30 0RF rosuvastatin 10 mg tablet 10 mg PO DAILY ramipril 10 mg capsule 20 mg PO DAILY Discontinued hydrochlorothiazide 25 mg Tablet 25 mg PO DAILY Referrals / Follow Up: Marion Roland DO [Primary Care Provider] - Within 1 Week Disposition Disposition (needs filled in before D/C Order can be placed): Home, Self Care Charges/Coding Visit Charges Inpatient E&M: 42560 Disch Hosp >30min
--- NOTE | 2025-03-04 14:47 | CASEMGMT ---
JUNI NEAL Assessment: Face to Face with pt for initial transition planning/care coordination assessment. RN VAL introduced self and role at [facility], pt voices understanding and consents to assessment. Pt is A&O x4 and answers all questions appropriately at this time. Care providers, pharmacy, and demographics verified/updated. Strata: 2 Admitting Dx: Hyponatremia, ADR to HCTZ and UTI PCP: Luan Specialists: Denies Preferred Pharmacy: [facility] Insurance: [facility] Prescription Benefit: yes LNOK: , Enrrique; Son, Sivakumar Living Arrangements: Pt lives with and son in a 1 level home with 2 steps to enter. Working on getting a ramp for in the home. ADLs: Pt states I at baseline with ADLs, needs assistance with IADLs. Transportation: Pt son provides transportation. DME: WC, walker, cane, hospital bed, shower bench HHC/SNF: Denies hx of. Pt states no concerns with going home at time of dc. Pt states no further concerns/needs. CM to follow. Advised pt to ask CM if any further question/concerns/needs arise, voices understanding. Pt Goal: Home Plan: Home with family support. Pt kenneth active with OP therapy at [facility]. Natalie ALFREDO CM
--- NOTE | 2025-03-04 14:47 | CASEMGMT ---
JUNI NEAL Assessment: Face to Face with pt for initial transition planning/care coordination assessment. RN VAL introduced self and role at [facility], pt voices understanding and consents to assessment. Pt is A&O x4 and answers all questions appropriately at this time. Care providers, pharmacy, and demographics verified/updated. Strata: 2 Admitting Dx: Hyponatremia, ADR to HCTZ and UTI PCP: Luan Specialists: Denies Preferred Pharmacy: [facility] Insurance: [facility] Prescription Benefit: yes LNOK: , Enrrique; Son, Sivakumar Living Arrangements: Pt lives with and son in a 1 level home with 2 steps to enter. Working on getting a ramp for in the home. ADLs: Pt states I at baseline with ADLs, needs assistance with IADLs. Transportation: Pt son provides transportation. DME: WC, walker, cane, hospital bed, shower bench HHC/SNF: Denies hx of. Pt states no concerns with going home at time of dc. Pt states no further concerns/needs. CM to follow. Advised pt to ask CM if any further question/concerns/needs arise, voices understanding. Pt Goal: Home Plan: Home with family support. Pt kenneth active with OP therapy at [facility]. Natalie ALFREDO CM
[2025-03-04 15:00] VITALS: BP 130/63; PULSE 76; RESP 16; TEMP 36.6; O2SAT 99
== END 2025-03-04 15:27 | disposition home or self-care (01) | DRG 641 ==
LOC: ED 22:15 → MS3 23:14
PROVIDERS: Admitting Provider Internal Medicine; Emergency Provider Emergency Medicine; PCP Family Medicine; Visit Provider Internal Medicine
DX: E87.1 Hypo-osmolality and hyponatremia (principal); N30.00 Acute cystitis without hematuria; E03.9 Hypothyroidism, unspecified; E11.42 Type 2 diabetes mellitus with diabetic polyneuropathy; I10 Essential (primary) hypertension; I48.91 Unspecified atrial fibrillation; E78.5 Hyperlipidemia, unspecified; M54.50 Low back pain, unspecified; R19.7 Diarrhea, unspecified; E11.51 Type 2 diabetes mellitus with diabetic peripheral angiopathy without gangrene; F41.1 Generalized anxiety disorder; G89.29 Other chronic pain; T50.2X5A Adverse effect of carbonic-anhydrase inhibitors, benzothiadiazides and other diuretics, initial encounter; R26.89 Other abnormalities of gait and mobility; E66.3 Overweight; Z68.27 Body mass index [BMI] 27.0-27.9, adult; Z79.899 Other long term (current) drug therapy; Z79.01 Long term (current) use of anticoagulants; Z99.3 Dependence on wheelchair; Z86.16 Personal history of COVID-19
CPT/HCPCS: 36415; 70450; 80048; 80053; 81001; 82550; 82962; 83630; 83735; 83930; 83935; 84100; 84443; 85025; 85027; 87086; 87088; 87493; 87506; 97161; 97165; 97802; 99283; A4216

== ENCOUNTER 2025-06-16 11:39 | Emergency (ER) | payer MEDICARE, SELFPAY ==
[2025-06-16] VITALS (7 sets, daily range): BP systolic 128–146; BP diastolic 59–69; PULSE 70–92; RESP 15–19; TEMP 36.6–37; O2SAT 98–100; BMI 25.2
--- OUTSIDE RECORDS SUMMARY | 2025-06-16 12:46 | XMS RPT_ITS | CCD ---
Author Organization [facility]ini[facility]ga Care Team Providers Care Director Of Rehabilitation Name Role Phone MATHIEU ROLAND DO Primary Care Physician [phone] Dr. Mathieu Roland Primary Care Provider Saunders INVESTMENT ACCOUNTING CLERK, INVESTMENT ACCOUNTING CLERK-C Milad Attending Provider [phone] Saunders INVESTMENT ACCOUNTING CLERK, INVESTMENT ACCOUNTING CLERK-C Milad Other Provider 1([phone] Mathieu Roland Primary Care Provider Saunders INVESTMENT ACCOUNTING CLERK, INVESTMENT ACCOUNTING CLERK-C Milad Attending Provider [phone] [facility]unders INVESTMENT ACCOUNTING CLERK, INVESTMENT ACCOUNTING CLERK-C Milad Other Provider 1([facility])-[phone] Mathieu Roland Primary Care Provider Saunders INVESTMENT ACCOUNTING CLERK, INVESTMENT ACCOUNTING CLERK-C Milad Attending Provider [phone] Saunders INVESTMENT ACCOUNTING CLERK, INVESTMENT ACCOUNTING CLERK-C Milad Other Provider 1([facility])-[phone] Mathieu Roland Primary Care Provider Saunders INVESTMENT ACCOUNTING CLERK, INVESTMENT ACCOUNTING CLERK-C Milad Attending Provider [phone] Saunders INVESTMENT ACCOUNTING CLERK, INVESTMENT ACCOUNTING CLERK-C Milad Other Provider 1([facility])-[phone] Rafael Perez Emergency Provider Dr. Milad Reynolds Admit Provider Dr. Milad Reynolds Attending Provider Dr. Milad Reynolds Other Provider Dr. Tiffany Hairston Other Provider Dr. Paula Naranjo Attending Provider Dr. Paula Naranjo Other Provider 1([facility])[phone] Gibson Ruiz Other Provider 1([facility])[phone] Dr. Mathieu Roland Primary Care Provider Chip INVESTMENT ACCOUNTING CLERK, INVESTMENT ACCOUNTING CLERK-C Milad Attending Provider [phone] Chip INVESTMENT ACCOUNTING CLERK, INVESTMENT ACCOUNTING CLERK-C Milad Other Provider Dr. Jonny Lynch Attending Provider Dr. Rafael Angela Referring Provider LUAN DO, MATHIEU Primary Care Physician MARQUISE LEHMAN MD Attending Unavaila ble LUAN DO, MATHIEU Primary Care Unavailable LUAN DO, MATHIEU Attending Unavailable LUAN DO, MATHIEU Primary Care Unavailable LUAN DO, MATHIEU Attending Unavailable LUAN DO, MATHIEU Primary Care Unavailable MARQUISE LEHMNA MD Attending Unavaila ble LUAN DO, MATHIEU Primary Care Unavailable MARQUISE LEHMAN MD Attending Unavaila lópez ROLAND DO, MATHIEU Primary Care Unavailable Dr. Mathieu Roland DO Primary Care Provider [phone] Dr. Justyn Rojas MD Emergency Provider Lujan DO, Dr. Gaines Admit Provider Unavail able Lujan DO, Dr. Gaines Attending Provider Unav ailable Lujan DO, Dr. Gaines Other Provider Unavail able Dr. Brittany Yarbrough DO Attending Provider Dr. Brittany Yarbrough DO Other Provider [phone] Eder Lujan Attending Unavailable Luan, Mathieu Primary Care Unavailable Eder Lujan Admitting Unavailable Eder Lujan Consulting Unavailable Brittany Yarbrough Attending Unavailable Brittany Yarbrough Consulting Unavailable Brittany Yarbrough Attending Unavailable Luan, Mathieu Primary Care Unavailable Eder Lujan Admitting Unavailable Eder Lujan Consulting Unavailable ARNOL CHANDRA Attending Unavailab le LUAN DO, MATHIEU Primary Care Unavailable LUAN DO, MATHIEU Primary Care Unavailable LUAN DO, MATHIEU Attending Unavailable DR JAMESON GARCIA DO Attending Unavailable LUAN DO, MATHIEU Primary Care Unavailable JULIA MIGUEL MD Attending Unavailable LUAN DO, MATHIEU Primary Care Unavailable LUAN DO, MATHIEU Primary Care Unavailable LUAN DO, MATHIEU Attending Unavailable LUAN DO, MATHIEU Primary Care Unavailable F[place] KEY, MARQUISE Attending Unavaila ble LUAN DO, MATHIEU Primary Care Unavailable [place], MARQUISE Attending Unavaila ble LUAN DO, MATHIEU Primary Care Unavailable [place], MARQUISE Attending Unavaila ble LUAN DO, MATHIEU Primary Care Unavailable LUAN DO, MATHIEU Attending Unavailable LUAN DO, MATHIEU Primary Care Unavailable LUAN DO, MATHIEU Attending Unavailable ROMAR DO, DR BARBA Attending Unavailable LUAN DO, MATHIEU Primary Care Unavailable ROMAR DO, DR BARBA Attending Unavailable LUAN DO, MATHIEU Primary Care Unavailable LUAN DO, MATHIEU Primary Care Unavailable ROMAR DO, DR BARBA Attending Unavailable LUAN DO, MATHIEU Primary Care Unavailable LUAN DO, MATHIEU Attending Unavailable LUAN DO, MATHIEU Primary Care Unavailable ROMSHASHANK DO, DR BARBA Attending Unavailable Allergies Allergy Classification Reported Allergen(s) Allergy Type Date of Onset Reaction(s) Facility (1 source) hydroCHLOROthiazide Drug Allergy [address] [place] [address] (1 source) hydroCHLOROthiazide Drug Allergy [address] [place] [address] Repository Medications Current Medications Medication Drug Class(es) Dates Sig (Normalized) Sig (Original) amitriptyline hydrochloride 10 mg oral tablet (12 sources) Tricyclic Antidepressant Start: 03-17-2024 amitriptyline 10 mg oral tablet Dose : 10 mg = 1 tab(s), Oral, qHS, Aware of patient age. Patient tolerates medication well and this medication works for her., # 90 tab(s), 1 Refill(s), Pharmacy: [facility]/pharmacy #[id number], Anxiety Trouble in sleeping, 162, cm, 03/17/24 15:31:00 EDT, Height, kg, 03/17/24 15:31:00 EDT, Dosing Weight Start Date: 03/17/24 Status: Ordered Start: 09-23-2023 amitriptyline 10 mg oral tablet Dose : 10 mg = 1 tab(s), Oral, qHS, Aware of patient age. Patient tolerates medication well and this medication works for her., # 90 tab(s), 1 Refill(s), Pharmacy: [facility] #[id number], Anxiety Trouble in sleeping, 165, cm, 09/01/23 13:55:00 EST, Height, kg, 09/01/23 13:47:00 EST, Dosing Weight Start Date: 09/23/23 Status: Ordered Start: 03-18-2023 amitriptyline 10 mg oral tablet Dose : 10 mg = 1 tab(s), Oral, qHS, Aware of patient age. Patient tolerates medication well and this medication works for her., # 90 tab(s), 1 Refill(s), Pharmacy: [facility] #[id number], Anxiety Recurrent major depression, 165, cm, 03/18/23 16:25:00 EDT, Height, kg, 03/18/23 16:09:00 EDT, Dosing Weight Start Date: 03/18/23 Status: Ordered Start: 09-16-2022 amitriptyline 10 mg oral tablet Dose : 10 mg = 1 tab(s), Oral, qHS, # 90 tab(s), 1 Refill(s), Pharmacy: [facility] #[id number], Anxiety Depressive disorder, 164.5, cm, 09/16/22 16:07:00 EST, Height, kg, 09/16/22 16:07:00 EST, Dosing Weight Start Date: 09/16/22 Status: Ordered Start: 04-16-2022 amitriptyline 10 mg oral tablet Dose : 10 mg = 1 tab(s), Oral, qHS, New prescription, # 90 tab(s), 1 Refill(s), Pharmacy: [facility] #[id number], Anxiety Depressive disorder, 165, cm, 04/16/22 14:02:00 EDT, Height, kg, 04/16/22 13:55:00 EDT, Dosing Weight Start Date: 04/16/22 Status: Ordered Start: 10-25-2021 amitriptyline 10 mg oral tablet Dose : 10 mg = 1 tab(s), Oral, qHS, New prescription, # 30 tab(s), 5 Refill(s), Pharmacy: [facility] Tension headache Anxiety, 166.37, cm, 10/25/21 14:26:00 EST, Height, kg, 10/25/21 14:26:00 EST, Dosing Weight Start Date: 10/25/21 Status: Ordered apixaban 5 mg oral tablet (13 sources) Factor Xa Inhibitor Start: 03-07-2025 Eliquis 2. 5 mg oral tablet Dose : 2.5 mg = 1 tab(s), Oral, BID, # 60 tab(s), 0 Refill(s), 71.4 Start Date: 03/07/25 Status: Ordered Medication Dispense Status: Completed Quantity: 60.0 Unit: tab(s) Total Allowed Fills: 1 Fills Dispensed: 0 Start: 03-04-2025 take 2.5 mg by mouth twice daily Apixaban (Eliquis) 5 mg Tablet Active 2.5 mg PO TWICE A DAY 0 March 04, 2025 12:00am Start: 02-09-2025 End: 05-10-2025 Eliquis 5 mg oral tablet Dos e : 5 mg = 1 tab(s), Oral, BID, # 60 tab(s), 5 Refill(s), Pharmacy: [facility]/pharmacy #[id number], 172.7, cm, 04/24/25 15:26:00 EDT, Height, 71.5, kg, 04/24/25 15:26:00 EDT, Dosing Weight Start Date: 04/24/25 Status: Ordered Medication Dispense Status: Completed Quantity: 60.0 Unit: tab(s) Total Allowed Fills: 6 Fills Dispensed: 0 Start: 07-19-2020 take 2.5 mg by mouth twice daily Apixaban Active 2.5 MG PO TWICE A DAY July 19, 2020 12:31pm aspirin 81 mg oral tablet (6 sources) Platelet Aggregation Inhibitor, Nonsteroidal Anti-inflammatory Drug Start: 06-22-2017 take 1 dose by mouth once daily aspirin Dose : 81 mg =, Oral, qDay, 0 Refill(s) Start Date: 06/22/17 Status: Ordered cephalexin 500 mg oral capsule (2 sources) Cephalosporin Antibacterial Start: 03-04-2025 take 1 capsule by mouth twice daily Cephalexin 500 mg capsule Active 500 mg PO TWICE A DAY 2 March 04, 2025 12:00am Start: 07-19-2021 End: 08-02-2021 cephalexin 500 mg oral capsu le Dose : 500 mg = 1 cap(s), Oral, QID, Drink plenty of fluids., X 14 day(s), # 56 cap(s), 0 Refill(s), 08/02/21 17:25:00 EST, [facility]acy: [facility] 165.1, cm, 06/25/21 16:02:00 EDT, Height, 83.7, kg, 06/25/21 16:02:00 EDT, Dosing Weight Start Date: 07/19/21 Stop Date: 08/02/21 Status: Ordered clopidogrel 75 mg oral tablet (20 sources) [id number] Platelet Inhibitor Start: 03-16-2025 clopidogrel 75 mg or al tablet Dose : 75 mg = 1 tab(s), Oral, qDay, # 30 tab(s), 5 Refill(s), [id number], PAD - Peripheral arterial disease, 165, cm, 03/16/25 16:16:00 EDT, Height, kg, 03/16/25 16:16:00 EDT, Dosing Weight Start Date: 03/16/25 Status: Ordered Medication Dispense Status: Completed Quantity: 30.0 Unit: tab(s) Total Allowed Fills: 6 Fills Dispensed: 0 Indications: Peripheral vascular disease, unspecified; Start: 03-07-2025 clopidogrel 75 mg oral tablet Dose : 75 mg = 1 tab(s), Oral, qDay, # 30 tab(s), 0 Refill(s) Start Date: 03/07/25 Status: Ordered Quantity: 30.0 Unit: tab(s) Repeat number: 1 Start: 07-16-2020 clopidogrel 75 mg oral tablet Dose : 75 mg = 1 tab(s), Oral, qDay, # 90 tab(s), 1 Refill(s), [id number], Hypertension PAD - Peripheral arterial disease, 162, cm, 03/17/24 15:31:00 EDT, Height, kg, 03/17/24 15:31:00 EDT, Dosing Weight Start Date: 03/17/24 Status: Ordered colesevelam hydrochloride 625 mg oral tablet (1 source) Bile Acid Sequestrant Start: 07-10-2022 colesevelam 625 mg oral tablet Dose : 1,875 mg = 3 tab(s), Oral, BID, # 180 tab(s), 2 Refill(s), Pharmacy: [facility] #[id number], 165, cm, 07/10/22 14:46:00 EST, Height Start Date: 07/10/22 Status: Ordered ergocalciferol 1.25 mg oral capsule (15 sources) Provitamin D2 Compound Start: 07-16-2020 take 39371 [IU] by mouth every week Ergocalciferol (Vitamin D2) Active 16747 UNIT PO EVERY WEEK July 16, 2020 5:38pm Start: 07-16-2020 take 1 capsule by [facility] every week Ergocalciferol (Vitamin D2) 50,000 UNIT capsule Active 1.25 U PO EVERY WEEK as needed for supplement July 16, 2020 1:00am takes Fridays furosemide 20 mg oral tablet (20 sources) Loop Diuretic Start: 03-22-2025 Lasix 20 mg or al tablet Dose : 20 mg = 1 tab(s), Oral, qDay, # 30 tab(s), 5 Refill(s), [id number], 165, cm, 03/22/25 14:05:00 EDT, Height, kg, 03/22/25 14:05:00 EDT, Dosing Weight Start Date: 03/22/25 Status: Ordered Medication Dispense Status: Completed Quantity: 30.0 Unit: tab(s) Total Allowed Fills: 6 Fills Dispensed: 0 Start: 03-16-2025 furosemide 20 mg oral tablet Dose : 20 mg = 1 tab(s), Oral, qDay, # 30 tab(s), 2 Refill(s), [id number], Bilateral lower extremity edema, 165, cm, 03/16/25 16:16:00 EDT, Height, kg, 03/16/25 16:16:00 EDT, Dosing Weight Start Date: 03/16/25 Status: Ordered Quantity: 30.0 Unit: tab(s) Repeat number: 3 Indications: Localized edema; Start: 03-07-2025 furosemide 20 mg oral tablet Dose : 20 mg = 1 tab(s), Oral, qDay, # 30 tab(s), 0 Refill(s), Pharmacy: [facility]/pharmacy #[id number], 165, cm, 03/07/25 14:38:00 EDT, Height, kg, 02/23/25 14:08:00 EDT, Dosing Weight Start Date: 03/07/25 Status: Ordered Quantity: 30.0 Unit: tab(s) Repeat number: 1 Start: 06-05-2020 take 1 tablet by yanelis th once daily Furosemide 40 MG tablet Active 40 mg PO DAILY July 16, 2020 1:00am fluid gabapentin 600 mg oral tablet (20 sources) Anti-epileptic Agent Start: 03-16-2025 End: 09-12-2025 gabapentin 600 mg oral tablet Dose : 600 mg = 1 tab(s), Oral, BID, # 180 tab(s), 1 Refill(s), [id number], Neuropathy Chronic pain, 165, cm, 03/16/25 16:16:00 EDT, Height, 71.4, kg, 03/16/25 16:16:00 EDT, Dosing Weight Start Date: 03/16/25 Stop Date: 09/12/25 Status: Ordered Medication Dispense Status: Completed Quantity: 180.0 Unit: tab(s) Total Allowed Fills: 2 Fills Dispensed: 0 Indications: Polyneuropathy, unspecified; Other chronic pain; Start: 07-16-2020 End: 03-14-2025 gabapentin 600 mg oral table t Dose : 600 mg = 1 tab(s), Oral, BID, Discontinue amitriptyline prescription please, # 180 tab(s), 1 Refill(s), [id number], Neuropathy Chronic pain, 165, cm, 09/15/24 14:32:00 EST, Height, 74.9, kg, 09/15/24 14:32:00 EST, Dosing Weight Start Date: 09/15/24 Stop Date: 03/14/25 Status: Ordered Quantity: 180.0 Unit: tab(s) Repeat number: 2 Indications: Other chronic pain; Polyneuropathy, unspecified; glimepiride 2 mg oral tablet (20 sources) Sulfonylurea Start: 03-24-2022 glimepiride 2 mg oral tablet Dose : 2 mg = 1 tab(s), Oral, qDayM, # 90 tab(s), 1 Refill(s), [id number], 165, cm, 03/06/22 14:46:00 EDT, Height, kg, 03/06/22 14:46:00 EDT, Dosing Weight Start Date: 03/24/22 Status: Ordered Start: 07-16-2020 End: 03-02-2025 take 1 tablet by mouth once daily Glimepiride 4 MG tablet Discontinued 4 mg PO DAILY July 16, 2020 1:00am March 02, 2025 10:22pm dm 3 ml insulin detemir 100 unt/ml pen injector (20 sources) Insulin Analog Start: 11-27-2021 inject 1 dose by subcutaneous injection once daily Levemir FlexTouch 100 units/mL 3 mL Pen Dose : 28 unit(s) =, Subcutaneous, Daily, inject 28 units subcutaneously daily, # 15 mL, 3 Refill(s), Pharmacy: [facility] [address] 166.37, cm, 10/25/21 14:26:00 [...] daily, # 15 mL, 3 Refill(s), Pharmacy: [facility] [address] 165.1, cm, 06/25/21 16:02:00 EDT, Height, kg, 06/25/21 16:02:00 EDT, Dosing Weight Start Date: 06/25/21 Status: Ordered Start: 01-29-2021 inject 1 dose by sub cutaneous injection once daily Levemir FlexTouch 100 units/mL 3 mL Pen Dose : 38 unit(s) =, Subcutaneous, Daily, inject 44 units subcutaneously daily, # 15 mL, 3 Refill(s), Pharmacy: [facility]-[address] 164.5, cm, 01/24/21 15:33:00 EDT, Height, kg, 01/24/21 15:33:00 EDT, Dosing Weight Start Date: 01/29/21 Status: Ordered Start: 07-16-2020 End: 03-02-2025 inject 28 [IU] by subcutaneous injection once daily Insulin Detemir U-100 100 UNIT/ML solution Discontinued 28 U SQ DAILY July 16, 2020 1:00am March 02, 2025 10:22pm dm 3 ml insulin glargine 100 unt/ml pen injector (6 sources) Insulin Analog Start: 02-22-2024 inject 1 dose by subcutaneous injection once daily at bedtime Lantus Solostar Pen 100 units/mL 3 mL Pen Dose : 10 unit(s) =, Subcutaneous, qHS, inject 12 units subcutaneously at bedtime, # 15 mL, 1 Refill(s), Pharmacy: [facility] #[id number], 165.5, cm, 12/10/23 15:09:00 EDT, Height, kg, 12/10/23 15:09:00 EDT, Dosing Weight Start Date: 02/22/24 Status: Ordered Start: 06-25-2023 inject 1 dose by sub cutaneous injection once daily at bedtime Lantus Solostar Pen 100 units/mL 3 mL Pen Dose : 10 unit(s) =, Subcutaneous, qHS, inject 12 units subcutaneously at bedtime, # 15 mL, 1 Refill(s), Pharmacy: [facility] #[id number], 165, cm, 06/25/23 15:16:00 EDT, Height, kg, [...] qHS, # 15 mL, 3 Refill(s), Pharmacy: [facility] #[id number], 164.5, cm, 09/16/22 16:07:00 EST, Height Start Date: 09/18/22 Status: Ordered levothyroxine sodium 0.05 mg oral tablet (20 sources) l-Thyroxine Start: 01-16-2025 take 1 tablet by mouth once daily levothyroxine 50 mcg (0.05 mg) oral tablet See Instructions, take 1 tablet by mouth once daily, # 90 tab(s), 1 Refill(s), [id number], 165, cm, 01/12/25 15:01:00 EDT, Height, kg, 01/12/25 15:01:00 EDT, Dosing Weight Start Date: 01/16/25 Status: Ordered Medication Dispense Status: Completed Quantity: 90.0 Unit: tab(s) Total Allowed Fills: 2 Fills Dispensed: 0 Start: 09-07-2024 take 1 tablet by yanelis th once daily levothyroxine 50 mcg (0.05 mg) oral tablet See Instructions, take 1 tablet by mouth once daily, # 90 tab(s), 1 Refill(s), Pharmacy: [facility]/pharmacy #[id number], 165, cm, 07/07/24 15:39:00 EST, Height, kg, 07/07/24 15:39:00 EST, Dosing Weight Start Date: 09/07/24 Status: Ordered Quantity: 90.0 Unit: tab(s) Repeat number: 2 Start: 12-10-2023 take 1 tablet by yanelis th once daily levothyroxine 50 mcg (0.05 mg) oral tablet See Instructions, take 1 tablet by mouth once daily, # 90 tab(s), 2 Refill(s), Pharmacy: [facility] #[id number], 165.5, cm, 12/10/23 15:09:00 EDT, Height, kg, 12/10/23 15:09:00 EDT, Dosing Weight Start Date: 12/10/23 Status: Ordered Start: 09-18-2022 take 1 tablet by yanelis once daily levothyroxine 50 mcg (0.05 mg) oral tablet See Instructions, take 1 tablet by mouth once daily, # 90 tab(s), 2 Refill(s), Pharmacy: [facility] #[id number], 164.5, cm, 09/16/22 16:07:00 EST, Height, kg, 09/16/22 16:07:00 EST, Dosing Weight Start Date: 09/18/22 Status: Ordered Start: 09-19-2021 take 1 tablet by yanelis th once daily levothyroxine 50 mcg (0.05 mg) oral tablet See Instructions, take 1 tablet by mouth once daily, # 90 tab(s), 2 Refill(s), [facility] [address] 165, cm, 09/17/21 15:34:00 EST, Height, kg, 09/17/21 15:34:00 EST, Dosing Weight Start Date: 09/19/21 Status: Ordered Start: 03-25-2021 take 1 tablet by yanelis once daily levothyroxine 50 mcg (0.05 mg) oral tablet See Instructions, take 1 tablet by mouth once daily, # 90 tab(s), 1 Refill(s), [facility], 165.1, cm, 03/12/21 15:19:00 EDT, Height, kg, 03/12/21 15:19:00 EDT, Dosing Weight Start Date: 03/25/21 Status: Ordered Start: 07-16-2020 take 1 tablet by yanelis once daily Levothyroxine 50 MCG tablet Active 50 ug PO DAILY July 16, 2020 1:00am thyroid metoclopramide 10 mg oral tablet (15 sources) Dopamine-2 Receptor Antagonist Start: 03-07-2025 metoclopramide 10 mg oral tablet Dose : 10 mg = 1 tab(s), Oral, QID, # 120 tab(s), 0 Refill(s) Start Date: 03/07/25 Status: Ordered Medication Dispense Status: Completed Quantity: 120.0 Unit: tab(s) Total Allowed Fills: 1 Fills Dispensed: 0 Start: 09-16-2022 take 1 tablet by yanelis every six hours as needed for nausea and vomiting Metoclopramide Hcl (Reglan) 10 mg tablet Active 10 mg PO EVERY 6 HOURS as needed for nausea and vomiting 14 0 September 16, 2022 1:00am ondansetron 4 mg oral tablet (18 sources) Serotonin-3 Receptor Antagonist Start: 01-10-2022 Zofran 4 mg oral tab let Dose : 4 mg = 1 tab(s), Oral, q6h, PRN Nausea/Vomiting, # 20 tab(s), 0 Refill(s), Pharmacy: [facility] 165, cm, 01/06/22 14:05:00 EDT, Height Start Date: 01/10/22 Status: Ordered Quantity: 20.0 Unit: tab(s) Repeat number: 1 Start: 07-13-2020 Zofran 4 mg or al tablet Dose : 4 mg = 1 tab(s), Oral, q6h, PRN Nausea/Vomiting, # 20 tab(s), 0 Refill(s), Pharmacy: [facility] Nausea, 164.2, cm, 06/22/20 14:57:00 EDT, Height, kg, 06/22/20 14:57:00 EDT, Dosing Weight Start Date: 07/13/20 Status: Ordered potassium chloride 10 meq oral tablet (20 sources) Start: 03-16-2025 Potassium Chlo ride (Eqv-K-Tab) 10 mEq oral tablet, extended release Dose : 10 mEq = 1 tab(s), Oral, qDay, # 30 tab(s), 2 Refill(s), Pharmacy: [facility]/pharmacy #[id number], Hypertension associated with type 2 diabetes mellitus Hyponatremia, 165, cm, 03/16/25 16:16:00 EDT, Height, kg, 03/16/25 16:16:00 EDT, Dosing Weight Start Date: 03/16/25 Status: Ordered Medication Dispense Status: Completed Quantity: 30.0 Unit: tab(s) Total Allowed Fills: 3 Fills Dispensed: 0 Indications: Hypo-osmolality and hyponatremia; Type 2 diabetes mellitus with other circulatory complications; Start: 03-07-2025 Potassium Chlo ride (Eqv-K-Tab) 10 mEq oral tablet, extended release Dose : 10 mEq = 1 tab(s), Oral, qDay, # 30 tab(s), 0 Refill(s) Start Date: 03/07/25 Status: Ordered Quantity: 30.0 Unit: tab(s) Repeat number: 1 Start: 02-22-2025 End: 02-25-2025 Potassium Chloride (Eqv-Klor -Con M20) 20 mEq oral tablet, extended release Dose : 20 mEq = 1 tab(s), Oral, BID, do not crush or chew. with a full glass of water and food, X 3 day(s), # 6 tab(s), 0 Refill(s), 02/25/25 3:10:00 PM EDT, Pharmacy: [facility]/pharmacy #[id number], Hypertension, 165, cm, 02/09/25 13:33:00 EDT, Height, kg, 02/09/25 13:33:00 EDT, Dosing Weight Start Date: 02/22/25 Stop Date: 02/25/25 Status: Ordered Quantity: 6.0 Unit: tab(s) Repeat number: 1 Indications: Essential (primary) hypertension; Start: 04-16-2022 take 1 tablet by yanelis th once daily Potassium Chloride (Hky-Hmtd-Ixa M20) 20 mEq oral tablet, extended release See Instructions, take 1 tablet by mouth once daily with FUROSEMIDE, # 90 tab(s), 1 Refill(s), [facility] #[id number], Hypertension, 165, cm, 04/16/22 14:02:00 EDT, Height, kg, 04/16/22 13:55:00 EDT, Dosing Weight Start Date: 04/16/22 Status: Ordered Quantity: 90.0 Unit: tab(s) Repeat number: 2 Indications: Essential (primary) hypertension; Start: 04-16-2022 take 1 tablet by yanelis th once daily Potassium Chloride (Wwd-Qizc-Sot M20) 20 mEq oral tablet, extended release See Instructions, take 1 tablet by mouth once daily with FUROSEMIDE, # 90 tab(s), 1 Refill(s), Pharmacy: [facility] #[id number], Hypertension, 165, cm, 04/16/22 14:02:00 EDT, Height, kg, 04/16/22 13:55:00 EDT, Dosing Weight Start Date: 04/16/22 Status: Ordered Start: 02-04-2022 take 1 tablet by yanelis th once daily Potassium Chloride (Fju-Rhom-Ruj M20) 20 mEq oral tablet, extended release See Instructions, take 1 tablet by mouth once daily with FUROSEMIDE, # 30 tab(s), 1 Refill(s), [facility]: [facility] 165, cm, 01/06/22 14:05:00 EDT, Height, kg, 01/06/22 14:05:00 EDT, Dosing Weight Start Date: 02/04/22 Status: Ordered Start: 12-11-2021 take 1 tablet by yanelis th once daily Potassium Chloride (Xvq-Cfeg-Ziy M20) 20 mEq oral tablet, extended release See Instructions, take 1 tablet by mouth once daily with FUROSEMIDE, # 30 tab(s), 1 Refill(s), Pharmacy: [facility] [id number] 166.37, cm, 10/25/21 14:26:00 EST, Height, kg, 10/25/21 14:26:00 EST, Dosing Weight Start Date: 12/11/21 Status: Ordered Start: 09-30-2021 take 1 tablet by yanelis th once daily Potassium Chloride (Ohm-Szdp-Yxe M20) 20 mEq oral tablet, extended release See Instructions, take 1 tablet by mouth once daily with FUROSEMIDE, # 30 tab(s), 1 Refill(s), Pharmacy: [facility] [id number] 165, cm, 09/17/21 15:34:00 EST, Height, kg, 09/17/21 15:34:00 EST, Dosing Weight Start Date: 09/30/21 Status: Ordered Start: 04-25-2021 take 1 tablet by yanelis th once daily Potassium Chloride (Uln-Ayxq-Nub M20) 20 mEq oral tablet, extended release See Instructions, take 1 tablet by mouth once daily with FUROSEMIDE, # 30 tab(s), 1 Refill(s), Pharmacy: [address] 165.1, cm, 03/12/21 15:19:00 EDT, Height, kg, 03/12/21 15:19:00 EDT, Dosing Weight Start Date: 04/25/21 Status: Ordered Start: 07-19-2020 take 1 tablet by yanelis th once daily at mealtime Potassium Chloride 20 MEQ tablet Active 20 meq PO DAILY WITH MEALS July 19, 2020 1:00am Take with furosemide/Lasix ramipril 10 mg oral capsule (20 sources) Angiotensin Converting Enzyme Inhibitor Start: 03-02-2025 take 2 capsules by mouth once daily Ramipril 10 mg capsule Active 20 mg PO DAILY March 02, 2025 12:00am BP Start: 02-23-2025 End: 08-22-2025 ramipril 10 mg oral capsule Dose : 20 mg = 2 cap(s), Oral, qDay, # 60 cap(s), 5 Refill(s), Pharmacy: [facility]/pharmacy #[id number], HTN (hypertension), 165, cm, 02/23/25 14:08:00 EDT, Height, kg, 02/23/25 14:08:00 EDT, Dosing Weight Start Date: 02/23/25 Stop Date: 08/22/25 Status: Ordered Medication Dispense Status: Completed Quantity: 60.0 Unit: cap(s) Total Allowed Fills: 6 Fills Dispensed: 0 Indications: Essential (primary) hypertension; Start: 12-28-2024 ramipril 10 mg oral capsule Dose : 10 mg = 1 cap(s), Oral, qDay, # 30 cap(s), 5 Refill(s), Pharmacy: [facility]/pharmacy #[id number], 165, cm, 12/08/24 16:01:00 EDT, Height, kg, 12/08/24 15:44:00 EDT, Dosing Weight Start Date: 12/28/24 Status: Ordered Quantity: 30.0 Unit: cap(s) Repeat number: 6 Start: 07-13-2024 ramipril 10 mg oral capsule Dose : 10 mg = 1 cap(s), Oral, qDay, # 30 cap(s), 0 Refill(s), Pharmacy: [facility]/pharmacy #[id number], 165, cm, 07/07/24 15:39:00 EST, Height, kg, 07/07/24 15:39:00 EST, Dosing Weight Start Date: 07/13/24 Status: Ordered Start: 12-10-2023 ramipril 10 mg oral capsule Dose : 10 mg = 1 cap(s), Oral, qDay, # 30 cap(s), 4 Refill(s), [facility]: [facility] #[id number], 165.5, cm, 12/10/23 15:09:00 EDT, Height, kg, 12/10/23 15:09:00 EDT, Dosing Weight Start Date: 12/10/23 Status: Ordered Start: 08-03-2023 ramipril 10 mg oral capsule Dose : 10 mg = 1 cap(s), Oral, qDay, # 30 cap(s), 4 Refill(s), [facility]: [facility] #[id number], 165, cm, 06/25/23 15:16:00 EDT, Height, kg, 06/25/23 15:16:00 EDT, Dosing Weight Start Date: 08/03/23 Status: Ordered Start: 09-18-2022 ramipril 10 mg oral capsule Dose : 10 mg = 1 cap(s), Oral, qDay, # 30 cap(s), 4 Refill(s), [id number], 164.5, cm, 09/16/22 16:07:00 EST, Height, kg, 09/16/22 16:07:00 EST, Dosing Weight Start Date: 09/18/22 Status: Ordered Start: 03-24-2022 ramipril 10 mg oral capsule Dose : 10 mg = 1 cap(s), Oral, qDay, # 30 cap(s), 4 Refill(s), [id number], 165, cm, 03/06/22 14:46:00 EDT, Height, kg, 03/06/22 14:46:00 EDT, Dosing Weight Start Date: 03/24/22 Status: Ordered Start: 10-31-2021 End: 03-02-2025 take 1 tablet by mouth once daily Ramipril 10 mg Tablet Discontinued 10 mg PO DAILY October 31, 2021 1:00am March 02, 2025 10:24pm Start: 10-22-2021 ramipril 10 mg oral capsule Dose : 10 mg = 1 cap(s), Oral, qDay, # 30 cap(s), 4 Refill(s), [facility] [address] 165, cm, 10/22/21 15:25:00 EST, Height, kg, 10/22/21 15:25:00 EST, Dosing Weight Start Date: 10/22/21 Status: Ordered Start: 05-10-2021 ramipril 2.5 m g oral capsule Dose : 2.5 mg = 1 cap(s), Oral, qDay, # 90 cap(s), 0 Refill(s), Pharmacy: [facility] 165.1, cm, 06/25/21 16:02:00 EDT, Height, kg, 06/25/21 16:02:00 EDT, Dosing Weight Start Date: 08/14/21 Status: Ordered Start: 07-19-2020 take 5 mg by mouth once daily Ramipril Active 5 MG PO DAILY 0 July 19, 2020 12:32pm Start: 07-16-2020 End: 07-19-2020 take 1 capsule by mouth once daily Ramipril 2.5 MG capsule Discontinued 2.5 mg PO DAILY July 16, 2020 1:00am July 19, 2020 12:32pm heart rosuvastatin calcium 10 mg oral tablet (16 sources) HMG-CoA Reductase Inhibitor Start: 07-07-2024 rosuvastatin 10 mg o ral tablet Dose : 10 mg = 1 tab(s), Oral, qDay, # 90 tab(s), 3 Refill(s), Pharmacy: [facility]/pharmacy #[id number], Hyperlipidemia Controlled type 2 diabetes mellitus, 165, cm, 07/07/24 15:39:00 EST, Height, kg, 07/07/24 15:39:00 EST, Dosing Weight Start Date: 07/07/24 Status: Ordered Medication Dispense Status: Completed Quantity: 90.0 Unit: tab(s) Total Allowed Fills: 4 Fills Dispensed: 0 Indications: Hyperlipidemia, unspecified; Type 2 diabetes mellitus without complications; Start: 06-12-2023 rosuvastatin 1 0 mg oral tablet Dose : 10 mg = 1 tab(s), Oral, qDay, New medication, # 90 tab(s), 3 Refill(s), [facility]: [facility] #[id number], Type 2 diabetes mellitus with hyperlipidemia, 165, cm, 03/18/23 16:25:00 EDT, Height, kg, 06/12/23 16:31:00 EDT, Dosing Weight Start Date: 06/12/23 Status: Ordered sulfamethoxazole 800 mg / trimethoprim 160 mg oral tablet (3 sources) Dihydrofolate Reductase Inhibitor Antibacterial, Sulfonamide Antimicrobial Start: 01-10-2022 End: 01-20-2022 take 1 tablet by mouth every twelve hours Bactrim DS 800 mg-160 mg oral tablet Dose = 1 tab(s), Oral, q12h, X 10 day(s), # 20 tab(s), 0 Refill(s), [facility]: [facility] 165, cm, 01/06/22 14:05:00 EDT, Height, 88 Start Date: 01/10/22 Stop Date: 01/20/22 Status: Ordered Start: 07-19-2021 End: 08-02-2021 take 1 tablet by mouth every twelve hours sulfamethoxazole-trimethoprim 800 mg-160 mg oral tablet Dose = 1 tab(s), Oral, q12h, drink plenty of fluids, X 14 day(s), # 28 tab(s), 0 Refill(s), Pharmacy: [address], 165.1, cm, 06/25/21 16:02:00 EDT, Height, 83.7, kg, 06/25/21 16:02:00 EDT, Dosing Weight Start Date: 07/19/21 Stop Date: 08/02/21 Status: Ordered Tylenol 8 HR Arthritis Pain (13 sources) Start: 09-23-2023 take 1 mg by mouth every eight hours Tylenol 8 HR Arthritis Pain mg =, Oral, q8h, 0 Refill(s) Start Date: 09/23/23 Status: Ordered Medication Dispense Status: Completed Total Allowed Fills: 1 Fills Dispensed: 0 Start: 09-23-2023 take 1 mg by mouth [...] 1.25 mg (50,000 intl units) oral capsule (14 sources) Start: 03-07-2025 Vitamin D2 1.2 5 mg (50,000 intl units) oral capsule Dose : 50,000 International_Unit = 1 cap(s), Oral, qWeek, # 12 cap(s), 0 Refill(s) Start Date: 03/07/25 Status: Ordered Medication Dispense Status: Completed Quantity: 12.0 Unit: cap(s) Total Allowed Fills: 1 Fills Dispensed: 0 Start: 03-07-2025 Vitamin D2 1.2 5 mg (50,000 intl units) oral capsule Dose : 50,000 International_Unit = 1 cap(s), Oral, qWeek, # 12 cap(s), 0 Refill(s) Start Date: 03/07/25 Status: Ordered Quantity: 12.0 Unit: cap(s) Repeat number: 1 Start: 10-21-2022 take 1 capsule by [facility] every week Vitamin D2 1.25 mg (50,000 intl units) oral capsule See Instructions, take 1 capsule by mouth every week, # 4 cap(s), 6 Refill(s), Pharmacy: [facility] #[id number], Vitamin D deficiency, 164.5, cm, 10/21/22 15:34:00 EST, Height, kg, 10/21/22 15:34:00 EST, Dosing Weight Start Date: 10/21/22 Status: Ordered Start: 03-24-2022 take 1 capsule by [facility] every week Vitamin D2 1.25 mg (50,000 intl units) oral capsule See Instructions, take 1 capsule by mouth every week, # 4 cap(s), 6 Refill(s), called to pharmacy (Rx) Start Date: 03/24/22 Status: Ordered Start: 09-07-2021 take 1 capsule by [facility] every week Vitamin D2 1.25 mg (50,000 intl units) oral capsule See Instructions, take 1 capsule by mouth every week, # 4 cap(s), 6 Refill(s), Pharmacy: [facility] 165, cm, 08/15/21 15:41:00 EST, Height, kg, 06/25/21 16:02:00 EDT, Dosing Weight Start Date: 09/07/21 Status: Ordered Vitamin E Pure dl-Alpha 450 mg oral capsule (9 sources) Start: 02-09-2025 Vitamin E Pure dl-Alpha 450 mg oral capsule Dose : 450 mg = 1 cap(s), Oral, qDay, 0 Refill(s) Start Date: 02/09/25 Status: Ordered Medication Dispense Status: Completed Total Allowed Fills: 1 Fills Dispensed: 0 Start: 02-09-2025 Vitamin E Pure dl-Alpha 450 [...] week, # 9 mL, 5 Refill(s), [facility]: [facility] #[id number], 165.5, cm, 12/10/23 15:09:00 EDT, Height, kg, 12/10/23 15:09:00 EDT, Dosing Weight Start Date: 12/10/23 Status: Ordered Quantity: 9.0 Unit: mL Repeat number: 6 Start: 12-10-2023 inject 1 mg by subcu taneous injection every week Ozempic 4 mg/3 mL (1 mg dose) subcutaneous solution Dose : 1 mg =, Subcutaneous, qWeek, inject 1 milligram subcutaneously every week, # 9 mL, 5 Refill(s), [facility]: [facility] #[id number], 165.5, cm, 12/10/23 15:09:00 EDT, Height, kg, 12/10/23 15:09:00 EDT, Dosing Weight Start Date: 12/10/23 Status: Ordered Start: 08-10-2023 inject 1 mg by subcu taneous injection every week Ozempic 4 mg/3 mL (1 mg dose) subcutaneous solution Dose : 1 mg =, Subcutaneous, qWeek, inject 1 milligram subcutaneously every week, # 3 mL, 3 Refill(s), [facility]: [facility] #[id number], 165, cm, 06/25/23 15:16:00 EDT, Height, kg, 06/25/23 15:16:00 EDT, Dosing Weight Start Date: 08/10/23 Status: Ordered Start: 11-13-2022 inject 1 mg by subcu taneous injection every week Ozempic (1 mg dose) 4 mg/3 mL subcutaneous solution Dose : 1 mg =, Subcutaneous, qWeek, inject 1 milligram subcutaneously every week, # 3 mL, 3 Refill(s), [facility]: [facility] #[id number], 164.5, cm, 10/21/22 15:34:00 EST, Height, kg, 10/21/22 15:34:00 EST, Dosing Weight Start Date: 11/13/22 Status: Ordered Start: 06-17-2022 inject 1 mg by subcu taneous injection every week Ozempic (1 mg dose) 4 mg/3 mL subcutaneous solution Dose : 1 mg =, Subcutaneous, qWeek, inject 1 milligram subcutaneously every week, # 2 mL, 3 Refill(s), [facility]: [facility][id number], 165, cm, 04/23/22 13:51:00 EDT, Height Start [...] oral tablet (20 sources) Opioid Agonist Start: 03-16-2025 End: 04-15-2025 take 1 tablet by mouth twice daily acetaminophen-hydrocodone 325 mg-5 mg oral tablet Dose = 1 tab(s), Oral, BID, Do not fill until April 21, 2025, # 60 tab(s), 0 Refill(s), Pharmacy: [facility]/pharmacy #[id number], Chronic pain, 165, cm, 03/16/25 16:16:00 EDT, Height, 71.4, kg, 03/16/25 16:16:00 EDT, Dosing Weight Start Date: 03/16/25 Stop Date: 04/15/25 Status: Ordered Medication Dispense Status: Completed Quantity: 60.0 Unit: tab(s) Total Allowed Fills: 1 Fills Dispensed: 0 Indications: Other chronic pain; Start: 12-08-2024 End: 01-07-2025 take 1 tablet by mouth twice daily acetaminophen-hydrocodone 325 mg-5 mg or al tablet Dose = 1 tab(s), Oral, BID, Do not fill until January 21, 2025, # 60 tab(s), 0 Refill(s), [id number], Chronic pain, 165, cm, 12/08/24 16:01:00 EDT, Height, 73.7, kg, 12/08/24 15:44:00 EDT, Dosing Weight Start Date: 12/08/24 Stop Date: 01/07/25 Status: Ordered Medication Dispense Status: Completed Quantity: 60.0 Unit: tab(s) Total Allowed Fills: 1 Fills Dispensed: 0 Indications: Other chronic pain; Start: 09-15-2024 End: 10-15-2024 take 1 tablet by mouth twice daily acetaminophen-hydrocodone 325 mg-5 mg or al tablet Dose = 1 tab(s), Oral, BID, Do not fill until November 13, 2024, # 60 tab(s), 0 Refill(s), [id number], Chronic pain, 165, cm, 09/15/24 14:32:00 [...] # 60 tab(s), 0 Refill(s), [id number], Chronic pain, 162.6, cm, 06/15/24 14:27:00 EDT, Height, 76.6, kg, 03/17/24 15:31:00 EDT, Dosing Weight Start Date: 06/15/24 Stop Date: 07/15/24 Status: Ordered Start: 12-10-2023 End: 01-09-2024 take 1 tablet by mouth twice daily acetaminophen-hydrocodone 325 mg-5 mg or al tablet Dose = 1 tab(s), Oral, BID, Do not fill until January 21, 2024, # 60 tab(s), 0 Refill(s), [facility]acy: [facility] #[id number], Chronic pain, 165.5, cm, 12/10/23 15:09:00 EDT, Height, 79.8, kg, 12/10/23 15:09:00 EDT, Dosing Weight Start Date: 12/10/23 Stop Date: 01/09/24 Status: Ordered Start: 09-23-2023 End: 10-23-2023 take 1 tablet by mouth twice daily acetaminophen-hydrocodone 325 mg-5 mg or al tablet Dose = 1 tab(s), Oral, BID, Do not fill until November 22, 2023, # 60 tab(s), 0 Refill(s), [facility]: [facility] #[id number], Chronic pain, 165, cm, 09/01/23 13:55:00 EST, Height, 80.7, kg, 09/01/23 13:47:00 EST, Dosing Weight Start Date: 09/23/23 Stop Date: 10/23/23 Status: Ordered Start: 06-12-2023 End: 07-12-2023 take 1 tablet by mouth twice daily acetaminophen-hydrocodone 325 mg-5 mg or al tablet Dose = 1 tab(s), Oral, BID, Do not fill until July 22, 2023, # 60 tab(s), 0 Refill(s), [facility]: [facility] #[id number], Chronic pain, 165, cm, 03/18/23 16:25:00 EDT, Height, 79.9, kg, 06/12/23 16:31:00 EDT, Dosing Weight Start Date: 06/12/23 Stop Date: 07/12/23 Status: Ordered Start: 12-16-2022 End: 01-15-2023 take 1 tablet by mouth twice daily acetaminophen-hydrocodone 325 mg-5 mg or al tablet Dose = 1 tab(s), Oral, BID, Do not fill until February 22, 2023, # 60 tab(s), 0 Refill(s), Pharmacy: [facility] #[id number], Chronic pain, 164, cm, 12/16/22 15:44:00 EDT, Height, 81.4, kg, 12/16/22 15:44:00 EDT, Dosing Weight Start Date: 12/16/22 Stop Date: 01/15/23 Status: Ordered Start: 09-16-2022 End: 10-16-2022 take 1 tablet by mouth twice daily acetaminophen-hydrocodone 325 mg-5 mg or al tablet Dose = 1 tab(s), Oral, BID, Do not fill until November 24, 2022., # 60 tab(s), 0 Refill(s), [facility]: [facility] #[id number], Chronic pain, 164.5, cm, 09/16/22 16:07:00 EST, Height, 81.5, kg, 09/16/22 16:07:00 EST, Dosing Weight Start Date: 09/16/22 Stop Date: 10/16/22 Status: Ordered Start: 03-27-2022 End: 04-27-2022 take 1 tablet by mouth twice daily acetaminophen-hydrocodone 325 mg-5 mg or al tablet Dose = 1 tab(s), Oral, BID, Do not fill until May 26, 2022, # 60 tab(s), 0 Refill(s), [facility]: [facility] #[id number], Chronic pain, 165, cm, 03/27/22 16:49:00 EDT, Height, 83.7, kg, 03/27/22 16:39:00 EDT, Dosing Weight Start Date: 03/28/22 Stop Date: 04/27/22 Status: Ordered Start: 12-17-2021 End: 01-16-2022 take 1 tablet by mouth twice daily acetaminophen-hydrocodone 325 mg-5 mg or al tablet Dose = 1 tab(s), Oral, BID, Please do not fill until 02/15/2022, # 60 tab(s), 0 Refill(s), [facility] [facility], Chronic pain, 165, cm, 12/17/21 16:18:00 EDT, Height, 85, kg, 12/17/21 16:07:00 EDT, Dosing Weight Start Date: 12/17/21 Stop Date: 01/16/22 Status: Ordered Start: 06-18-2021 acetaminophen- hydrocodone 325 mg-5 mg oral tablet 0 Refill(s) Start Date: 06/18/21 Status: Ordered Start: 07-16-2020 End: 10-17-2021 take 1 tablet by mouth twice daily acetaminophen-hydrocodone 325 mg-5 mg or al tablet Dose = 1 tab(s), Oral, BID, do not fill until 11/16/2021, # 60 tab(s), 0 Refill(s), [facility], Chronic pain, 165, cm, 09/17/21 15:34:00 EST, Height, 77.3, kg, 09/17/21 15:34:00 EST, Dosing Weight Start Date: 09/17/21 Stop Date: 10/17/21 Status: Ordered Start: 07-16-2020 Hydrocodone-Ac etaminophen Active 1 EACH PO TWICE DAILY NEEDED July 16, 2020 12:00am ALPRAZolam 0.5 mg oral tablet (20 sources) Benzodiazepine Start: 03-16-2025 End: 04-15-2025 Xanax 0.5 mg oral tablet Dose : 0.5 mg = 1 tab(s), Oral, TID, PRN as needed for anxiety, # 270 tab(s), 0 Refill(s), Pharmacy: [facility]/pharmacy #[id number], Anxiety Long-term use of high-risk medication, 165, cm, 03/16/25 16:16:00 EDT, Height, 71.4, kg, 03/16/25 16:16:00 EDT, Dosing Weight Start Date: 03/16/25 Stop Date: 04/15/25 Status: Ordered Medication Dispense Status: Completed Quantity: 270.0 Unit: tab(s) Total Allowed Fills: 1 Fills Dispensed: 0 Indications: Anxiety disorder, unspecified; 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; Start: 12-08-2024 Xanax 0.5 mg o ral tablet Dose : 0.5 mg = 1 tab(s), Oral, TID, PRN as needed for anxiety, # 90 tab(s), 2 Refill(s), Pharmacy: [facility]/pharmacy #[id number], Anxiety Long-term use of high-risk medication, 165, cm, 12/08/24 16:01:00 EDT, Height, 73.7, kg, 12/08/24 15:44:00 EDT, Dosing Weight Start Date: 12/08/24 Status: Ordered Quantity: 90.0 Unit: tab(s) Repeat number: 3 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; Anxiety disorder, unspecified; Start: 06-15-2024 Xanax 0.5 mg o ral tablet Dose : 0.5 mg = 1 tab(s), Oral, TID, PRN as needed for anxiety, Do not fill until June 28, 2024, # 90 tab(s), 2 Refill(s), Pharmacy: [facility]/pharmacy #[id number], Anxiety, 162.6, cm, 06/15/24 14:27:00 EDT, Height, 76.6, kg, 03/17/24 15:31:00 EDT, Dosing Weight Start Date: 06/15/24 Status: Ordered Start: 12-10-2023 Xanax 0.5 mg o ral tablet Dose : 0.5 mg = 1 tab(s), Oral, TID, PRN as needed for anxiety, # 90 tab(s), 2 Refill(s), [facility]: [facility] #[id number], Anxiety, 165.5, cm, 12/10/23 15:09:00 EDT, Height, 79.8, kg, 12/10/23 15:09:00 EDT, Dosing Weight Start Date: 12/10/23 Status: Ordered Start: 09-23-2023 End: 09-30-2023 Xanax 0.5 mg oral tablet Dos e : 0.5 mg = 1 tab(s), Oral, TID, PRN as needed for anxiety, Short-term fill until next appointment, # 90 tab(s), 2 Refill(s), Pharmacy: [facility] #[id number], Anxiety, 165, cm, 09/01/23 13:55:00 EST, Height, 80.7, kg, 09/01/23 13:47:00 EST, Dosing Weight Start Date: 09/23/23 Stop Date: 09/30/23 Status: Ordered Start: 07-16-2020 End: 09-10-2023 Xanax 0.5 mg oral tablet Dos e : 0.5 mg = 1 tab(s), Oral, TID, PRN as needed for anxiety, Do not fill until June 19, 2023, # 90 tab(s), 2 Refill(s), [facility] #[id number], Anxiety, 165, cm, 03/18/23 16:25:00 EDT, Height, 79.9, kg, 06/12/23 16:31:00 EDT, Dosing Weight Start Date: 06/12/23 Stop Date: 09/10/23 Status: Ordered amLODIPine 5 mg oral tablet (11 sources) Dihydropyridine Calcium Channel Doris Start: 03-07-2025 amLODIPine 5 mg oral tablet Dose : 5 mg = 1 tab(s), Oral, qDay, # 30 tab(s), 0 Refill(s) Start Date: 03/07/25 Status: Suspended Medication Dispense Status: Completed Quantity: 30.0 Unit: tab(s) Total Allowed Fills: 1 Fills Dispensed: 0 Start: 10-20-2024 amLODIPine 10 mg oral tablet Dose : 10 mg = 1 tab(s), Oral, qDay, # 90 tab(s), 3 Refill(s), Pharmacy: [facility]/pharmacy #[id number], Uncontrolled hypertension Hypertension associated with type [...] 90 tab(s), 3 Refill(s), [facility]: [facility] #[id number], Uncontrolled hypertension Hypertension associated with type 2 diabetes mellitus, 165.5, cm, 12/10/23 15:09:00 EDT, Height, kg, 12/10/23 15:09:00 EDT, Dosing Weight Start Date: 12/10/23 Status: Ordered Start: 09-01-2023 amLODIPine 10 mg oral tablet Dose : 10 mg = 1 tab(s), Oral, qDay, # 90 tab(s), 1 Refill(s), [facility]: [facility] #[id number], Uncontrolled hypertension, 165, cm, 09/01/23 13:55:00 EST, Height, kg, 09/01/23 13:47:00 EST, Dosing Weight Start Date: 09/01/23 Status: Ordered Start: 08-22-2023 take 1 tablet by yanelis th once daily Amlodipine 5 mg tablet Active 5 mg PO DAILY 30 0 August 22, 2023 6:15pm amoxicillin 875 mg / clavulanate 125 mg oral tablet (9 sources) Penicillin-class Antibacterial Start: 01-17-2022 End: 03-02-2025 Amoxicillin-Pot Clavulanate 875-125 mg tablet Discontinued 1 {tbl} PO Q12H 80 0 January 17, 2022 12:00am March 02, 2025 10:21pm Start: 01-17-2022 take 1 tablet by yanelis th every twelve hours Amoxicillin-Pot Clavulanate Active 1 TABLET PO Q12H 80 January 16, 2022 11:00pm Start: 11-06-2021 take 1 tablet by yanelis th twice daily Amoxicillin-Pot Clavulanate Active 1 TABLET PO TWICE A DAY November 06, 2021 9:22am doxycycline hyclate 100 mg oral capsule (9 sources) Tetracycline-class Drug Start: 01-17-2022 End: 03-02-2025 take 1 capsule by mouth twice daily Doxycycline Hyclate 100 mg capsule Discontinued 100 mg PO TWICE A DAY 80 0 January 17, 2022 12:00am March 02, 2025 10:21pm Start: 11-11-2021 take 100 mg by mouth twice daily Doxycycline Monohydrate Active 100 MG PO TWICE A DAY November 11, 2021 7:37pm 0.5 ML dulaglutide 6 MG/ML Auto-Injector (4 sources) GLP-1 Receptor Agonist Start: 10-25-2020 inject 0.5 mL by subcutaneous injection every week Trulicity Pen 3 mg/0.5 mL subcutaneous solution Dose : 3 mg = 0.5 mL, Subcutaneous, qWeek, rotate injection sites, # 2 mL, 3 Refill(s), [facility] [id number] [facility], 164.5, cm, 10/25/20 15:43:00 EST, Height, kg, 10/25/20 15:43:00 EST, Dosing Weight Start Date: 10/25/20 Status: Ordered Start: 07-16-2020 inject 0.75 mg by simms bcutaneous injection every week Dulaglutide Active 0.75 MG SQ EVERY WEEK July 16, 2020 3:50pm hydroCHLOROthiazide 25 mg oral tablet (17 sources) Thiazide Diuretic Start: 10-20-2024 hydroCHLOROthiazide 25 mg oral tablet Dose : 25 mg = 1 tab(s), Oral, qDay, # 90 tab(s), 3 Refill(s), Pharmacy: [facility]/pharmacy #[id number], Uncontrolled hypertension Hypertension associated with type 2 diabetes mellitus, 165, cm, 10/20/24 16:14:00 EST, Height, kg, 10/20/24 16:02:00 EST, Dosing Weight Start Date: 10/20/24 Status: Suspended Quantity: 90.0 Unit: tab(s) Repeat number: 4 Indications: Essential (primary) hypertension; Type 2 diabetes mellitus with other circulatory complications; Start: 10-31-2021 take 1 mg by mouth o nce daily Hydrochlorothiazide Active MG PO DAILY October 31, 2021 4:25pm Start: 10-31-2021 End: 03-04-2025 hydroCHLOROthiazide 25 mg or al tablet Dose : 25 mg = 1 tab(s), Oral, qDay, # 90 tab(s), 3 Refill(s), [facility]: [facility] #[id number], Uncontrolled hypertension Hypertension associated with type 2 diabetes mellitus, 165.5, cm, 12/10/23 15:09:00 EDT, Height, kg, 12/10/23 15:09:00 EDT, Dosing Weight Start Date: 12/10/23 Status: Ordered 0.25 mg, 0.5 mg dose 1.5 ml semaglutide 1.34 mg/ml pen injector (10 sources) Start: 10-31-2021 End: 03-02-2025 Semaglutide (Ozempic) 0.25 m g or 0.5 mg(2 mg/1.5 mL) Pen Injector Discontinued 0.25 mg SC EVERY WEEK October 31, 2021 1:00am March 02, 2025 10:23pm diabetes due to start this thursday Vitamin D3 (8 sources) Start: 06-16-2023 Vitamin [...] of foot; Translations: [Chronic ulcer of foot] 06-26-2021 Chronic Coagulation and hemorrhagic disorders (9 sources) Thrombocytopenic disorder 02-22-2025 Chronic Diabetes mellitus with complications (20 sources) Type [...] Onset: 5 Chronic Disorders of lipid metabolism (18 sources) Hyperlipidemia 02-25-2023 Chronic E Codes: Adverse effects of medical drugs (3 sources) Adverse reaction to drug; Translations: [Adverse effect of unspecified drugs, medicaments and biological substances, initial encounter] Onset: 5 03-03-2025 Episodic E Codes: Fall (20 sources) Fall; Translations: [Fall in home] 11-04-2019 Essential hypertension (20 sources) Hypertensive disorder; Translations: [Essential (primary) hypertension] 10-25-2020 Chronic Fever of unknown origin (12 sources) Fever; Translations: [Fever, unspecified] Onset: 5 07-13-2020 Episodic Fluid and electrolyte disorders (20 sources) Hypernatremia; Translations: [Hypokalemia] Onset: 5 10-25-2020 Episodic Gangrene (9 sources) Gangrene of toe of left foot; Translations: [Gangrene, not elsewhere classified] Episodic Headache; including migraine (20 sources) Tension-type headache 10-25-2021 Chronic Heart valve disorders (20 sources) Aortic valve sclerosis 08-14-2021 Chronic Heart valve disorders (20 sources) Irregular heart beat 12-17-2021 Episodic Immunizations and screening for infectious disease (10 sources) Contact with or exposure to other viral diseases; Translations: [Close exposure to COVID-19 virus] 07-13-2020 Episodic Infective arthritis and osteomyelitis (except that caused by tuberculosis or sexually transmitted disease) (2 sources) Osteomyelitis; Translations: [Osteomyelitis, unspecified] Chronic Intestinal infection (4 sources) Viral gastroenteritis; Translations: [Viral intestinal infection, unspecified] 09-16-2022 Episodic Mood disorders (20 sources) Depressive disorder; Translations: [Recurrent major depression] 03-15-2019 Chronic Mycoses (20 sources) Candidiasis of vagina 09-17-2021 Episodic Noninfectious gastroenteritis (14 sources) Acute gastroenteritis 09-16-2022 Episodic Nutritional deficiencies (20 sources) Vitamin D deficiency 10-25-2020 Chronic Osteoporosis (20 sources) Osteoporosis 01-12-2020 Chronic Other circulatory disease (20 sources) 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 Other circulatory disease (7 sources) Peripheral vascular disease; Translations: [Other specified peripheral vascular diseases] 01-08-2022 Chronic Other circulatory disease (3 sources) Other specified peripheral vascular diseases; Translations: [Other specified peripheral vascular diseases] Chronic Other circulatory disease (20 sources) Low blood pressure 01-14-2022 Episodic Other connective tissue disease (20 sources) Swelling of left lower limb 07-19-2021 Episodic Other connective tissue disease (20 sources) Recurrent falls ; Translations: [Repeated falls] 01-14-2022 Episodic Other connective tissue disease (9 sources) Muscle weakness of limb 02-12-2025 Episodic Other connective tissue disease (1 source) Repeated falls; Translations: [Repeated falls] Onset: Episodic Other connective tissue disease (1 source) Musculoskeletal test abnormal; Translations: [Other symptoms and signs involving the musculoskeletal system] Episodic Other diseases of veins and lymphatics (7 sources) Peripheral venous insufficiency; Translations: [Venous insufficiency (chronic) (peripheral)] 01-08-2022 Episodic Other diseases of veins and lymphatics (3 sources) Venous insufficiency (chronic) (peripheral); Translations: [Venous (peripheral) insufficiency, unspecified] Episodic Other ear and sense organ disorders (17 sources) Hearing loss of right ear 09-01-2023 Chronic Other ear and sense organ disorders (17 sources) Bilateral tinnitus 09-23-2023 Episodic Other eye disorders (15 sources) Subconjunctival hemorrhage 06-15-2024 Episodic Other gastrointestinal disorders (2 sources) Diarrhea; Translations: [Diarrhea, unspecified] 03-03-2025 Episodic Other gastrointestinal disorders (1 source) Diarrhea, unspecified; Translations: [Diarrhea, unspecified] Onset: Episodic Other injuries and conditions due to [...] Chronic Comment on above: OF FEET Other nervous system disorders (3 sources) Walking disability; Translations: [Difficulty in walking, not elsewhere classified] 03-03-2025 Chronic Other nervous system disorders (2 sources) Difficulty in walking, not elsewhere classified; Translations: [Difficulty in walking, not elsewhere classified] Onset: Chronic Other non-traumatic joint disorders (20 sources) Hip pain 11-04-2019 Episodic Other non-traumatic joint disorders (20 sources) Shoulder pain 10-25-2021 Episodic Other nutritional; endocrine; and metabolic disorders (19 sources) Body mass index 30+ - obesity 10-21-2022 Chronic Other nutritional; endocrine; and metabolic disorders (18 sources) Overweight in adulthood with body mass index of 25 or more but less than 30 06-16-2023 Episodic Other nutritional; endocrine; and metabolic disorders (2 sources) Body mass index 25-29 - overweight; Translations: [Overweight] 03-03-2025 Episodic Other nutritional; endocrine; and metabolic disorders (1 source) Overweight; Translations: [Overweight] Onset: Episodic Other screening for suspected conditions (not mental disorders or infectious disease) (20 sources) Viral screening status 04-23-2022 Episodic Other skin disorders (20 sources) Lesion of skin of face 11-04-2019 Episodic Other upper respiratory infections (20 sources) Acute sinusitis; Translations: [Upper respiratory infection] 09-11-2021 Episodic Phlebitis; thrombophlebitis and thromboembolism (20 sources) Thrombophlebitis of lower extremities 03-15-2019 Episodic Residual codes; unclassified (20 sources) Bilateral lower limb edema 06-05-2020 Episodic Residual codes; unclassified (20 sources) Chronic pain 03-16-2019 Episodic Residual codes; unclassified (20 sources) Insomnia 03-15-2019 Episodic Residual codes; unclassified (20 sources) Needs influenza immunization 06-22-2020 Episodic Residual codes; unclassified (7 sources) Localized edema; Translations: [Localized edema] 01-08-2022 Episodic Residual codes; unclassified (3 sources) Localized edema; Translations: [Edema] Episodic Residual codes; unclassified (18 sources) Screening due 06-12-2023 Episodic Spondylosis; intervertebral disc disorders; other back problems (20 sources) Backache 11-04-2019 Episodic Thyroid disorders (20 sources) Hypothyroidism; Translations: [Thyroid nodule] Onset: 5 03-15-2019 Chronic Unclassified (20 sources) H/O: high risk medication 03-30-2020 Unclassified (20 sources) Ulcer of heel due to diabetes mellitus 07-19-2021 Unclassified (20 sources) Patient encounter status 04-23-2022 Unclassified (19 sources) Never used tobacco 10-21-2022 Unclassified (18 sources) Influenza vaccination status 06-12-2023 Unclassified (11 sources) Low back pain co-occurrent with neuralgia of left sciatic nerve 09-29-2024 Unclassified (1 source) Mild tricuspid valve regurgitation 05-02-2025 Urinary tract infections (3 sources) Acute cystitis; Translations: [Acute cystitis without hematuria] Onset: 03-03-2025 Episodic Viral infection (10 sources) Disease caused by 2019-nCoV; Translations: [COVID-19] 07-16-2020 Episodic Past or Other Problems Problem Classification Problem Date Documented Date Episodic/Chronic Conditions associated with dizziness or vertigo (20 sources) Dizziness; Translations: [Lightheadedness] Onset: 02-21-2025 07-07-2024 Episodic Malaise and fatigue (20 sources) Asthenia; Translations: [Other malaise] Onset: 02-20-2025 Episodic Other connective tissue disease (3 sources) Other symptoms and signs involving the musculoskeletal system; Translations: [Other symptoms and signs involving the musculoskeletal system] Onset: 02-20-2025 Episodic Results Test Name Value Interpretation Reference Range Facility US THYROIDon 06-08-2025 US THYROID ORIGINAL EXAMINATION: Ultrasound Thyroid COMPARISON: Ultrasound 02/29/2024 TECHNIQUE: This report is based on interpretation of permanently recorded ultrasound images. HISTORY: ORDERING SYSTEM PROVIDED HISTORY: Reason for Exam: mng, FINDINGS: Size right thyroid lobe: 2.3 x 1.0 x 1.0 cm Size left thyroid lobe: 3.3 x 0.9 x 0.9 cm Size isthmus: 0.2 cm Texture: The gland is diffusely heterogeneous. It is difficult to clearly reproduce and compare nodules to prior studies. Estimated total number of nodules greater than or equal to 1 cm: 2 Nodule #: # 1: This is a nodule in the lower left lobe that is 1.0 x 0.8 x 0.8 cm. Not certain if this is an actual or pseudo nodule. The nodule is solid isoechoic wider than tall with some ill-defined margins and no suspicious echogenic foci. ACR Total Points: 3; ACR TI-RADS risk category: TR3 - mildly suspicious nodule. Nodule #: # 2: This is a nodule in the mid to lower left lobe that is 1.1 x 0.8 x 0.7 cm. The nodule is isoechoic and could be a pseudo nodule. It is solid wider than tall with ill-defined margins and no suspicious echogenic foci. ACR Total Points: 3; ACR TI-RADS risk category: TR3 - mildly suspicious nodule. There is a subcentimeter cystic nodule in the lower left lobe, benign finding. No right-sided nodule is appreciated on this study. IMPRESSION: Heterogeneous thyroid that is much smaller than usual.? Is there previous history of thyroiditis or long-term thyroid medication. It is difficult to reliably reproduce and compare nodules over follow-up examinations. 1. Nodule 1: Size 1.0 cm, ACR TI-RADS 2017 Risk category and Recommendation TR 3, no follow-up is needed. 2. Nodule 2: Size 1.1 cm, ACR TI-RADS 2017 Risk category and Recommendation TR 3, no follow-up is needed.. ACR TI-RADS 2017 Recommendations: TR1(0 points) : [...] four nodules should be followed. Interpreted by: Bruce Iraheta MD Preliminary Report By: Bruce Iraheta MD Electronically signed By Bruce Iraheta MD Dictated Date: 06/08/2025 9:45:10 AM Prelim Date: 06/08/2025 9:54:10 AM Sign Date: 06/08/2025 9:54:10 AM Ordering Provider: MARQUISE LEHMAN Normal [facility] .GFRon 06-07-2025 Estimated Glomerular Filtration Rate 74 ml/min/1.73sqm [facility] Comment on above: Result Comment: Stages of [...] calculate the eGFR results. Performed By: #### A KRISSY, PBNP, GFR, BMP, CBC, ADIFF #### [facility] [address] [place], [place] [address] A1Con 06-07-2025 Glucose [Mass/Vol] 154 mg/dL Normal [facility] Comment on above: Result Comment: [place] mated Average Glucose calculated by equation ((28.7xA1C)-46.7) Estimated average glucose (eAG) is a calculated value from Hemoglobin A1C and is risk control field representative of the average blood glucose level in the last 2-3 month period. Normal range: less than 114 mg/dL Performed By: #### A KRISSY, PBNP, GFR, BMP, CBC, ADIFF #### [address] [address] HbA1c (Bld) [Mass fraction] 7.0 % High 4.3-6.4 [facility] Comment on above: Performed By: #### A KRISSY, PBNP, GFR, BMP, CBC, ADIFF #### [address] [address] CMPon 06-07-2025 Albumin Level 3.6 G/dL Normal 3.4-4.8 [facility] Comment on above: Performed By: #### A KRISSY, PBNP, GFR, BMP, CBC, ADIFF #### [place] [id number] Albumin/Globulin [Mass ratio] 1.2 {ratio} Normal 1.1-2.5 [facility] Comment on above: Performed By: #### A KRISSY, PBNP, GFR, BMP, CBC, ADIFF #### [address] [address] ALP [Catalytic activity/Vol] 58 U/L Normal 40-135 [facility] Comment on above: Performed By: #### A KRISSY, PBNP, GFR, BMP, CBC, ADIFF #### [address] [address] ALT [Catalytic activity/Vol] 24 U/L Normal 14-59 [facility] Comment on above: Performed By: #### A KRISSY, PBNP, GFR, BMP, CBC, ADIFF #### [address] [address] AST [Catalytic activity/Vol] 21 U/L Normal 10-40 [facility] Comment on above: Performed By: #### A KRISSY, PBNP, GFR, BMP, CBC, ADIFF #### [address] [address] Bili Total 0.9 mg/dL Normal 0.2-1.0 [facility] Comment on above: Result Comment: Use of this assay is not recommended for patients undergoing treatment with eltrombopag due to the potential for falsely elevated results. Performed By: #### A KRISSY, PBNP, GFR, BMP, CBC, ADIFF #### [place] [address] BUN/Creatinine Ratio 22 ratio Normal 7-27 [facility] Comment on above: Performed By: #### A KRISSY, PBNP, GFR, BMP, CBC, ADIFF #### [place] [address] Calcium [Mass/Vol] 9.4 mg/dL Normal 8.4-10.2 [facility] Comment on above: Performed By: #### A KRISSY, PBNP, GFR, BMP, CBC, ADIFF #### [address] [address] Chloride [Moles/Vol] 90 mmol/L Low 98-107 [facility] Comment on above: Performed By: #### A KRISSY, PBNP, GFR, BMP, CBC, ADIFF #### [address] [address] CO2 [Moles/Vol] 37 mmol/L High 23-31 [facility] Comment on above: Performed By: #### A KRISSY, PBNP, GFR, BMP, CBC, ADIFF #### [address] [address] Creatinine [Mass/Vol] 0.82 mg/dL Normal 0.51-0.95 [facility] Comment on above: Performed By: #### A KRISSY, PBNP, GFR, BMP, CBC, ADIFF #### [address] [address] Electrolyte Balance 6.0 mEq/L Normal 4.0-15.[address] [facility] Comment on above: Performed By: #### A KRISSY, PBNP, GFR, BMP, CBC, ADIFF #### [address] [address] Globulin 3.0 G/dL Normal 2.7-4.4 [facility] Comment on above: Performed By: #### A KRISSY, PBNP, GFR, BMP, CBC, ADIFF #### [address] [address] Glucose [Mass/Vol] 163 mg/dL High 83-110 [facility] Comment on above: Performed By: #### A KRISSY, PBNP, GFR, BMP, CBC, ADIFF #### [address] [address] Potassium [Moles/Vol] 3.0 mmol/L Low 3.5-5.1 [facility] Comment on above: Performed By: #### A KRISSY, PBNP, GFR, BMP, CBC, ADIFF #### [address] [address] Sodium [Moles/Vol] 133 mmol/L Low 136-145 [facility] Comment on above: Performed By: #### A KRISSY, PBNP, GFR, BMP, CBC, ADIFF #### [address] [address] Total Protein 6.6 G/dL Normal 6.4-8.2 [facility] Comment on above: Performed By: #### A KRISSY, PBNP, GFR, BMP, CBC, ADIFF #### [address] [address] Urea nitrogen [Mass/Vol] 18 mg/dL Normal 7-18 [facility] Comment on above: Performed By: #### A KRISSY, PBNP, GFR, BMP, CBC, ADIFF #### [address] [address] FT4on 06-07-2025 Free T4 [Mass/Vol] 1.46 ng/dL Normal 0.76-1.46 [facility] Comment on above: Performed By: #### A KRISSY, PBNP, GFR, BMP, CBC, ADIFF #### [place] [address] [place], [place] [address] LABORATORYOrdered By: SYSTEM SYSTEM on 06-07-2025 25-hydroxyvitamin D3 [Mass/Vol] 30.5 ng/mL Invalid Interpretation Code AO ADM SS Comment on above: Interpretive Data: I nterpretive Values Based on Total 25(OH) Vitamin D: Deficient <20 ng/mL Insufficient 20 - <30 ng/mL Sufficient 30-100 ng/mL Albumin BCP dye [Mass/Vol] 3.6 G/dL Normal 3.4 - 4.8 G/dL AO ADM SS Albumin/Globulin [Mass ratio] 1.2 {ratio} Normal 1.1 - 2.5 ratio AO ADM SS ALP [Catalytic activity/Vol] 58 U/L Normal 40 - 135 U/L AO ADM SS ALT With P-5'-P [Catalytic activity/Vol] 24 U/L Normal 14 - 59 U/L AO ADM SS AST With P-5'-P [Catalytic activity/Vol] 21 U/L Normal 10 - 40 U/L AO ADM SS Bilirubin [Mass/Vol] 0.9 mg/dL Normal 0.2 - 1 .0 mg/dL AO ADM SS Comment on above: Interpretive Data: U se of this assay is not recommended for patients undergoing treatment with eltrombopag due to the potential for falsely elevated results. Calcium [Mass/Vol] 9.4 mg/dL Normal 8.4 - 10. 2 mg/dL AO ADM SS Chloride [Moles/Vol] 90 mmol/L Low 98 - 10 7 mmol/L AO ADM SS CO2 [Moles/Vol] 37 mmol/L High 23 - 31 mmol/L AO ADM SS Creatinine [Mass/Vol] 0.82 mg/dL Normal 0.51 - 0.95 mg/dL AO ADM SS Electrolyte Balance 6.0 mEq/L Normal 4.0 - 15 .0 mEq/L AO ADM SS Free T4 [Mass/Vol] 1.46 ng/dL Normal 0.76 - 1. 46 ng/dL AO ADM SS Globulin 3.0 G/dL Normal 2.7 - 4.4 G/dL AO ADM SS GLOMERULAR FILTRATION RATE/1.73 SQ M.PREDICTED:ARVRAT:PT:SE R/PLAS/BLD:QN:CREATININE -BASED FORMULA (CKD-EPI 2020) 74 ml/min/1.73sqm Invalid Interpretation Code AO Chemistry [...] to calculate the eGFR results. Glucose [Mass/Vol] 154 mg/dL Invalid Interpretation Code AO Chemistry S Comment on above: Interpretive Data: E stimated average glucose (eAG) is a calculated value from Hemoglobin A1C and is risk control field representative of the average blood glucose level in the last 2-3 month period. Normal range: less than 114 mg/dL Glucose [Mass/Vol] 163 mg/dL High 83 - 110 mg/dL AO ADM SS HbA1c (Bld) [Mass fraction] 7.0 % High 4.3 - 6.4 % AO ADM SS Potassium [Moles/Vol] 3.0 mmol/L Low 3.5 - 5.1 mmol/L AO ADM SS Protein [Mass/Vol] 6.6 G/dL Normal 6.4 - 8.2 G/dL AO ADM SS Sodium [Moles/Vol] 133 mmol/L Low 136 - 145 mmol/L AO ADM SS TSH Qn 1.93 m[IU]/L Normal 0.36 - 3.74 mcIU/mL AO ADM SS Urea nitrogen [Mass/Vol] 18 mg/dL Normal 7 - 18 mg/dL AO ADM SS Urea nitrogen/Creatinine [Mass ratio] 22 ratio Normal 7 - 27 ratio AO ADM SS LABORATORYOrdered By: Senia Devries on 06-07-2025 Cholesterol [Mass/Vol] 122 mg/dL Normal 0 - 2 00 mg/dL AO ADM SS Comment on above: Interpretive Data: C holesterol Reference Interval: Less than 200 Desirable 200-239 Borderline high risk 240 and above High risk Cholesterol in HDL [Mass/Vol] 51 mg/dL Normal 40 - 60 mg/dL AO ADM SS Cholesterol in LDL [Mass/Vol] 50 mg/dL Normal 0 - 130 mg/dL AO ADM SS Triglyceride [Mass/Vol] 103 mg/dL Normal 0 - 150 mg/dL AO ADM SS Comment on above: Interpretive Data: T riglyceride Reference Interval: Less than 150 Normal 150-199 Borderline high risk 200-499 High risk 500 or higher Very high risk LIPIDon 06-07-2025 Cholesterol [Mass/Vol] 122 mg/dL Normal 0-200 [facility] Comment on above: Result Comment: Chol esterol Reference Interval: Less than 200 Desirable 200-239 Borderline high risk 240 and above High risk Performed By: #### A KRISSY, PBNP, GFR, BMP, CBC, ADIFF #### [place] [address] Cholesterol in HDL [Mass/Vol] 51 mg/dL Normal 40-60 [facility] Comment on above: Performed By: #### A KRISSY, PBNP, GFR, BMP, CBC, ADIFF #### [address] [address] Cholesterol in LDL [Mass/Vol] 50 mg/dL Normal 0-130 [facility] Comment on above: Performed By: #### A KRISSY, PBNP, GFR, BMP, CBC, ADIFF #### [address] [address] Triglyceride [Mass/Vol] 103 mg/dL Normal 0-150 [facility] Comment on above: Result Comment: Trig lyceride Reference Interval: Less than 150 Normal 150-199 Borderline high risk 200-499 High risk 500 or higher Very high risk Performed By: #### A KRISSY, PBNP, GFR, BMP, CBC, ADIFF #### [address] [address] TSHon 06-07-2025 TSH Qn 1.93 m[IU]/L Normal 0.36-3.74 [facility] Comment on above: Performed By: #### A KRISSY, PBNP, GFR, BMP, CBC, ADIFF #### [address] [address] VIDHon 06-07-2025 Vit. D 25-Hydroxy 30.5 ng/mL Normal [facility] Comment on above: Result Comment: Inte rpretive Values Based on Total 25(OH) Vitamin D: Deficient <20 ng/mL Insufficient 20 - <30 ng/mL Sufficient 30-100 ng/mL Performed By: #### A KRISSY, PBNP, GFR, BMP, CBC, ADIFF #### [address] [address] .GFRon 04-05-2025 Estimated Glomerular Filtration Rate 82 ml/min/1.73sqm [facility] Comment on above: Result Comment: Stages of [...] calculate the eGFR results. Performed By: #### A KRISSY, PBNP, GFR, BMP, CBC, ADIFF #### [address] [address] CORTon 04-05-2025 Cortisol Level 18.3 mcg/dL [facility] Comment on above: Result Comment: Melvin isol AM Reference Range 6.5-26.0 mcg/dL Cortisol PM Reference Range 3.5-15.0 mcg/dL Performed By: #### A KRISSY, PBNP, GFR, BMP, CBC, ADIFF #### [address] [address] CRURon 04-05-2025 U Creatinine 68.2 mg/dL [facility] Comment on above: Performed By: #### A KRISSY, PBNP, GFR, BMP, CBC, ADIFF #### [address] [address] LABORATORYOrdered By: Milad romero on 04-05-2025 Appearance (U) Clear (04/05/25 11:51 AM) Normal Clear AO Auto Urine SS Bilirubin Ql (U) Negative (04/05/25 11:51 AM) Normal Negative AO Auto Urine SS Color (U) Yellow (04/05/25 11:51 AM) Normal AO Auto Urine SS Glucose Test strip (U) [Mass/Vol] Negative Normal Negative AO Auto Urine SS Hemoglobin Auto test strip (U) [Mass/Vol] Negative (04/05/25 11:51 AM) Normal Negative AO Auto Urine SS Ketones Ql (U) Negative Normal Negative AO Auto Ur ine SS UA Leuk Est Small *ABN* (04/05/25 11:51 AM) Invalid Interpretation Code Negative AO Auto Urine SS UA Nitrite Negative (04/05/25 11:51 AM) Normal Negative AO Auto Urine SS UA pH 6.0 (04/05/25 11:51 AM) Normal 5.0 - 8.0 AO Auto Urine SS UA Protein Negative Normal Negative AO Auto Urine SS UA RBC 0-2 /HPF Normal 0-2 AO Auto Urine SS UA Spec Grav 1.010 *ABN* (04/05/25 11:51 AM) Invalid Interpretation Code 1.015-1.025 AO Auto Urine SS UA Specimen Type Clean Catch (04/05/25 11:51 AM) Normal AO Auto Urine SS UA Squam Epithelial 0-2 /HPF Normal 0-20 AO Au to Urine SS UA Urobilinogen 0.2 E.U./dL Normal 0.2-1.0 AO Auto Urine SS WBC LM.HPF (Urine sed) [#/Area] 5-10 /HPF Invalid Interpretation Code 0-5 AO Auto Urine SS LABORATORYOrdered By: SYSTEM SYSTEM on 04-05-2025 Creatinine (U) [Mass/Vol] 68.2 mg/dL Invalid Interpretation Code AO ADM SS Protein (U) [Mass/Vol] 6 mg/dL Invalid Interpretation Code AO ADM SS Sodium (U) [Moles/Vol] 36 mmol/L Invalid Interpretation Code AO ADM SS Albumin BCP dye [Mass/Vol] 3.8 G/dL Normal 3.4 - 4.8 G/dL AO ADM SS Calcium [Mass/Vol] 9.6 mg/dL Normal 8.4 - 10. 2 mg/dL AO ADM SS Chloride [Moles/Vol] 87 mmol/L Low 98 - 10 7 mmol/L AO ADM SS CO2 [Moles/Vol] 33 mmol/L High 23 - 31 mmol/L AO ADM SS Cortisol [Mass/Vol] 18.3 ug/dL Invalid Interpretation Code AH ADM SS Comment on above: Interpretive Data: C ortisol AM Reference Range 6.5-26.0 mcg/dL Cortisol PM Reference Range 3.5-15.0 mcg/dL Creatinine [Mass/Vol] 0.75 mg/dL Normal 0.51 - 0.95 mg/dL AO ADM SS Electrolyte Balance 9.0 mEq/L Normal 4.0 - 15 .0 mEq/L AO ADM SS Estimated Glomerular Filtration Rate 82 ml/min/1.73sqm Invalid Interpretation Code AO Chemistry S [...] to calculate the eGFR results. Glucose [Mass/Vol] 185 mg/dL High 83 - 110 mg/dL AO ADM SS Phosphate [Mass/Vol] 3.9 mg/dL Normal 2.3 - 4 .1 mg/dL AO ADM SS Potassium [Moles/Vol] 2.8 mmol/L Low 3.5 - 5.1 mmol/L AO ADM SS Sodium [Moles/Vol] 129 mmol/L Low 136 - 145 mmol/L AO ADM SS TSH Qn 2.84 m[IU]/L Normal 0.36 - 3.74 mcIU/mL AO ADM SS Urea nitrogen [Mass/Vol] 16 mg/dL Normal 7 - 18 mg/dL AO ADM SS Urea nitrogen/Creatinine [Mass ratio] 21 ratio Normal 7 - 27 ratio AO ADM SS Uric Acid Lvl 7.3 mg/dL High 2.6 - 6.2 mg/dL AO ADM SS LABORATORYOrdered By: Pete Yeager on 04-05-2025 Osmolality (U) [Osmolality] 329 mosm/kg Low 390 - 1090 mOsm/kg Manual Chem SS NAURon 04-05-2025 Sodium [Moles/Vol] 36 mmol/L Normal [facility] Comment on above: Performed By: #### A KRISSY, PBNP, GFR, BMP, CBC, ADIFF #### [address] [address] OSMOUon 04-05-2025 U Osmolality 329 mOsm/kg Low 390-1090 [facility] Comment on above: Performed By: #### A KRISSY, PBNP, GFR, BMP, CBC, ADIFF #### [address] [address] PRURon 04-05-2025 U Protein 6 mg/dL Normal [facility] Comment on above: Performed By: #### A KRISSY, PBNP, GFR, BMP, CBC, ADIFF #### [address] [address] RFPon 04-05-2025 Albumin Level 3.8 G/dL Normal 3.4-4.8 [facility] Comment on above: Performed By: #### A KRISSY, PBNP, GFR, BMP, CBC, ADIFF #### [address] [address] BUN/Creatinine Ratio 21 ratio Normal 7-27 [facility] Comment on above: Performed By: #### A KRISSY, PBNP, GFR, BMP, CBC, ADIFF #### [address] [address] Calcium [Mass/Vol] 9.6 mg/dL Normal 8.4-10.2 [facility] Comment on above: Performed By: #### A KRISSY, PBNP, GFR, BMP, CBC, ADIFF #### [address] [address] Chloride [Moles/Vol] 87 mmol/L Low 98-107 [facility] Comment on above: Performed By: #### A KRISSY, PBNP, GFR, BMP, CBC, ADIFF #### [address] [address] CO2 [Moles/Vol] 33 mmol/L High 23-31 [facility] Comment on above: Performed By: #### A KRISSY, PBNP, GFR, BMP, CBC, ADIFF #### [address] [address] Creatinine [Mass/Vol] 0.75 mg/dL Normal 0.51-0.95 [facility] Comment on above: Performed By: #### A KRISSY, PBNP, GFR, BMP, CBC, ADIFF #### [address] [address] Electrolyte Balance 9.0 mEq/L Normal 4.0-15.[address] [facility] Comment on above: Performed By: #### A KRISSY, PBNP, GFR, BMP, CBC, ADIFF #### [place] [address] Glucose [Mass/Vol] 185 mg/dL High 83-110 [facility] Comment on above: Performed By: #### A KRISSY, PBNP, GFR, BMP, CBC, ADIFF #### [place] [address] Phosphate [Mass/Vol] 3.9 mg/dL Normal 2.3-4.1 [facility] Comment on above: Performed By: #### A KRISSY, PBNP, GFR, BMP, CBC, ADIFF #### [address] [address] Potassium [Moles/Vol] 2.8 mmol/L Low 3.5-5.1 [facility] Comment on above: Performed By: #### A KRISSY, PBNP, GFR, BMP, CBC, ADIFF #### [address] [address] Sodium [Moles/Vol] 129 mmol/L Low 136-145 [facility] Comment on above: Performed By: #### A KRISSY, PBNP, GFR, BMP, CBC, ADIFF #### [place] [id number] Urea nitrogen [Mass/Vol] 16 mg/dL Normal 7-18 [facility] Comment on above: Performed By: #### A KRISSY, PBNP, GFR, BMP, CBC, ADIFF #### [address] [address] TSHon 04-05-2025 TSH Qn 2.84 m[IU]/L Normal 0.36-3.74 [facility] Comment on above: Performed By: #### A KRISSY, PBNP, GFR, BMP, CBC, ADIFF #### [address] [address] UAon 04-05-2025 Color (U) Yellow Normal [facility] Comment on above: Performed By: #### A KRISSY, PBNP, GFR, BMP, CBC, ADIFF #### [address] [address] Glucose (U) [Mass/Vol] Negative Normal Negative [facility] Comment on above: Performed By: #### A KRISSY, PBNP, GFR, BMP, CBC, ADIFF #### [address] [address] Ketones Ql (U) Negative Normal Negative [facility] Comment on above: Performed By: #### A KRISSY, PBNP, GFR, BMP, CBC, ADIFF #### [address] [address] UA Appear Clear Normal Clear [facility] Comment on above: Performed By: #### A KRISSY, PBNP, GFR, BMP, CBC, ADIFF #### [address] [address] UA Blood Negative Normal Negative [facility] Comment on above: Performed By: #### A KRISSY, PBNP, GFR, BMP, CBC, ADIFF #### [address] [address] UA Leuk Est Small Abnormal Negative [facility] Comment on above: Performed By: #### A KRISSY, PBNP, GFR, BMP, CBC, ADIFF #### [address] [address] UA Nitrite Negative Normal Negative [facility] Comment on above: Performed By: #### A KRISSY, PBNP, GFR, BMP, CBC, ADIFF #### [address] [address] UA pH 6.0 Normal 5.0 - 8.0 [facility] Comment on above: Performed By: #### A KRISSY, PBNP, GFR, BMP, CBC, ADIFF #### [address] [address] UA Protein Negative Normal Negative [facility] Comment on above: Performed By: #### A KRISSY, PBNP, GFR, BMP, CBC, ADIFF #### [address] [address] UA Spec Grav 1.010 Abnormal 1.015-1.025 [facility] Comment on above: Performed By: #### A KRISSY, PBNP, GFR, BMP, CBC, ADIFF #### [address] [address] UA Specimen Type Clean Catch Normal [facility] Comment on above: Performed By: #### A KRISSY, PBNP, GFR, BMP, CBC, ADIFF #### [address] [address] UA Urobilinogen 0.2 E.U./dL Normal 0.2-1.0 [facility] Comment on above: Performed By: #### A KRISSY, PBNP, GFR, BMP, CBC, ADIFF #### [address] [address] Urobilinogen (U) [Mass/Vol] Negative Normal Negative [facility] Comment on above: Performed By: #### A KRISSY, PBNP, GFR, BMP, CBC, ADIFF #### [address] [address] UAMICon 04-05-2025 UA RBC 0-2 Normal 0-2 [facility] Comment on above: Performed By: #### A KRISSY, PBNP, GFR, BMP, CBC, ADIFF #### [address] [address] UA Squam Epithelial 0-2 Normal 0-[address] [facility] Comment on above: Performed By: #### A KRISSY, PBNP, GFR, BMP, CBC, ADIFF #### [address] [address] UA WBC 5-10 Abnormal 0-5 [facility] Comment on above: Performed By: #### A KRISSY, PBNP, GFR, BMP, CBC, ADIFF #### [address] [address] URICon 04-05-2025 Uric Acid Lvl 7.3 mg/dL High 2.6-6.2 [facility] Comment on above: Performed By: #### A KRISSY, PBNP, GFR, BMP, CBC, ADIFF #### [address] [address] .Auto Diffon 03-07-2025 Basophil, Absolute 0.0 10 3/mcL Normal 0.0-0.3 [facility] Comment on above: Performed By: #### A KRISSY, PBNP, GFR, BMP, CBC, ADIFF #### [address] [address] Basophils/100 WBC (Bld) 0.7 % Normal 0.0-2.5 [facility] Comment on above: Performed By: #### A KRISSY, PBNP, GFR, BMP, CBC, ADIFF #### [address] [address] Eosinophil, Absolute 0.1 10 3/mcL Normal 0.0-0.7 [facility] Comment on above: Performed By: #### A KRISSY, PBNP, GFR, BMP, CBC, ADIFF #### [address] [address] Eosinophils/100 WBC (Bld) 0.8 % Normal 0.0-6.0 [facility] Comment on above: Performed By: #### A KRISSY, PBNP, GFR, BMP, CBC, ADIFF #### [address] [address] Lymphocyte, Absolute 1.0 10 3/mcL Normal 0.9-4.3 [facility] Comment on above: Performed By: #### A KRISSY, PBNP, GFR, BMP, CBC, ADIFF #### [address] [address] Lymphocytes/100 WBC (Bld) 16.0 % Low 20.0-40.0 [facility] Comment on above: Performed By: #### A KRISSY, PBNP, GFR, BMP, CBC, ADIFF #### [address] [address] Monocyte, Absolute 0.4 10 3/mcL Normal 0.1-1.4 [facility] Comment on above: Performed By: #### A KRISSY, PBNP, GFR, BMP, CBC, ADIFF #### [address] [address] Monocytes/100 WBC (Bld) 5.5 % Normal 2.0-13.0 [facility] Comment on above: Performed By: #### A KRISSY, PBNP, GFR, BMP, CBC, ADIFF #### [address] [address] Neutrophils/100 WBC (Bld) 77.0 % High 50.0-75.0 [facility] Comment on above: Performed By: #### A KRISSY, PBNP, GFR, BMP, CBC, ADIFF #### [address] [address] .GFRon 03-07-2025 Estimated Glomerular Filtration Rate 77 ml/min/1.73sqm Normal [facility] Comment on above: Result Comment: Stages [...] calculate the eGFR results. Performed By: #### A KRISSY, PBNP, GFR, BMP, CBC, ADIFF #### [address] [address] .NEUABSon 03-07-2025 Neutrophil, Absolute 4.9 10 3/mcL Normal 2.3-8.1 [facility] Comment on above: Performed By: #### A KRISSY, PBNP, GFR, BMP, CBC, ADIFF #### [address] [address] BMPon 03-07-2025 BUN/Creatinine Ratio 15 ratio Normal 7-27 [facility] Comment on above: Performed By: #### A KRISSY, PBNP, GFR, BMP, CBC, ADIFF #### [address] [address] Calcium [Mass/Vol] 8.7 mg/dL Normal 8.4-10.2 [facility] Comment on above: Performed By: #### A KRISSY, PBNP, GFR, BMP, CBC, ADIFF #### [address] [address] Chloride [Moles/Vol] 99 mmol/L Normal 98-107 [facility] Comment on above: Performed By: #### A KRISSY, PBNP, GFR, BMP, CBC, ADIFF #### [address] [address] CO2 [Moles/Vol] 29 mmol/L Normal 23-31 [facility] Comment on above: Performed By: #### A KRISSY, PBNP, GFR, BMP, CBC, ADIFF #### [address] [address] Creatinine [Mass/Vol] 0.79 mg/dL Normal 0.51-0.95 [facility] Comment on above: Performed By: #### A KRISSY, PBNP, GFR, BMP, CBC, ADIFF #### [address] [address] Electrolyte Balance 7.0 mEq/L Normal 4.0-15.[address] [facility] Comment on above: Performed By: #### A KRISSY, PBNP, GFR, BMP, CBC, ADIFF #### [address] [address] Glucose [Mass/Vol] 236 mg/dL High 83-110 [facility] Comment on above: Performed By: #### A KRISSY, PBNP, GFR, BMP, CBC, ADIFF #### [address] [address] Potassium [Moles/Vol] 4.2 mmol/L Normal 3.5-5.1 [facility] Comment on above: Performed By: #### A KRISSY, PBNP, GFR, BMP, CBC, ADIFF #### [address] [address] Sodium [Moles/Vol] 135 mmol/L Low 136-145 [facility] Comment on above: Performed By: #### A KRISSY, PBNP, GFR, BMP, CBC, ADIFF #### [address] [address] Urea nitrogen [Mass/Vol] 12 mg/dL Normal 7-18 [facility] Comment on above: Performed By: #### A KRISSY, PBNP, GFR, BMP, CBC, ADIFF #### [address] [address] CBCon 03-07-2025 Erythrocyte distribution width (RBC) [Ratio] 12.6 % Normal 11.5-15.5 [facility] Comment on above: Performed By: #### A KRISSY, PBNP, GFR, BMP, CBC, ADIFF #### [address] [address] Hematocrit (Bld) [Volume fraction] 39.3 % Normal 34.0-46.0 [facility] Comment on above: Performed By: #### A RKISSY, PBNP, GFR, BMP, CBC, ADIFF #### [address] [address] Hgb 13.1 G/dL Normal 12.0-16.0 [facility] Comment on above: Performed By: #### A KRISSY, PBNP, GFR, BMP, CBC, ADIFF #### [place] [address] MCH (RBC) [Entitic mass] 30.7 pg Normal 27.0-33.0 [facility] Comment on above: Performed By: #### A KRISSY, PBNP, GFR, BMP, CBC, ADIFF #### [place] [address] MCHC 33.4 G/dL Normal 32.0-36.0 [facility] Comment on above: Performed By: #### A KRISSY, PBNP, GFR, BMP, CBC, ADIFF #### [place] [address] MCV (RBC) [Entitic vol] 92.0 fL Normal 80.0-99.0 [facility] Comment on above: Performed By: #### A KRISSY, PBNP, GFR, BMP, CBC, ADIFF #### [place] [address] Platelet 136 10 3/mcL Low 150-450 [facility] Comment on above: Performed By: #### A KRISSY, PBNP, GFR, BMP, CBC, ADIFF #### [place] [address] Platelet mean volume (Bld) [Entitic vol] 8.8 fL Normal 6.6-10.5 [facility] Comment on above: Performed By: #### A KRISSY, PBNP, GFR, BMP, CBC, ADIFF #### [place] [id number] RBC 4.27 10 6/mcL Normal 4.10-5.30 [facility] Comment on above: Performed By: #### A KRISSY, PBNP, GFR, BMP, CBC, ADIFF #### [facility] [address] [place], [place] [address] WBC 6.4 10 3/mcL Normal 4.5-10.8 [facility] Comment on above: Performed By: #### A KRISSY, PBNP, GFR, BMP, CBC, ADIFF #### [facility] [address] [place], [place] [address] LABORATORYOrdered By: SYSTEM SYSTEM on 03-07-2025 Basophils (Bld) [#/Vol] 0.0 103/mcL Normal 0.0 - 0.3 10^3/mcL AO Workflow SS Basophils/100 WBC (Bld) 0.7 % Normal 0.0 - 2.5 % AO Workflow SS Calcium [Mass/Vol] 8.7 mg/dL Normal 8.4 - 10. 2 mg/dL AO ADM SS Chloride [Moles/Vol] 99 mmol/L Normal 98 - 10 7 mmol/L AO ADM SS CO2 [Moles/Vol] 29 mmol/L Normal 23 - 31 mmol/L AO ADM SS Creatinine [Mass/Vol] 0.79 mg/dL Normal 0.51 - 0.95 mg/dL AO ADM SS Electrolyte Balance 7.0 mEq/L Normal 4.0 - 15 .0 mEq/L AO ADM SS Eosinophil, Absolute 0.1 103/mcL Normal 0.0 - 0 .7 10^3/mcL AO Workflow SS Eosinophils/100 WBC (Bld) 0.8 % Normal 0.0 - 6.0 % AO Workflow SS Erythrocyte distribution width (RBC) [Ratio] 12.6 % Normal 11.5 - 15.5 % AO Workflow SS Estimated Glomerular Filtration Rate 77 ml/min/1.73sqm Invalid Interpretation Code AO Chemistry [...] to calculate the eGFR results. Glucose [Mass/Vol] 236 mg/dL High 83 - 110 mg/dL AO ADM SS Hematocrit (Bld) [Volume fraction] 39.3 % Normal 34.0 - 46.0 % AO Workflow SS Hemoglobin (Bld) [Mass/Vol] 13.1 G/dL Normal 12.0 - 16.0 G/dL AO Workflow SS Lymphocytes (Bld) [#/Vol] 1.0 103/mcL Normal 0.9 - 4.3 10^3/mcL AO Workflow SS Lymphocytes/100 WBC (Bld) 16.0 % Low 20.0 - 40.0 % AO Workflow SS MCH (RBC) [Entitic mass] 30.7 pg Normal 27. 0 - 33.0 pg AO Workflow SS MCHC 33.4 G/dL Normal 32.0 - 36.0 G/dL AO Workflow SS MCV (RBC) [Entitic vol] 92.0 fL Normal 80.0 - 99.0 fL AO Workflow SS Monocytes (Bld) [#/Vol] 0.4 103/mcL Normal 0.1 - 1.4 10^3/mcL AO Workflow SS Monocytes/100 WBC (Bld) 5.5 % Normal 2.0 - 13.0 % AO Workflow SS Neutrophils (Bld) [#/Vol] 4.9 103/mcL Normal 2.3 - 8.1 10^3/mcL AO Workflow SS Neutrophils/100 WBC (Bld) 77.0 % High 50.0 - 75.0 % AO Workflow SS Platelet mean volume (Bld) [Entitic vol] 8.8 fL Normal 6.6 - 10.5 fL AO Workflow SS Platelets (Bld) [#/Vol] 136 103/mcL Low 150 - 450 10^3/mcL AO Workflow SS Potassium [Moles/Vol] 4.2 mmol/L Normal 3.5 - 5.1 mmol/L AO ADM SS RBC (Bld) [#/Vol] 4.27 106/mcL Normal 4.10 - 5.3 0 10^6/mcL AO Workflow SS Sodium [Moles/Vol] 135 mmol/L Low 136 - 145 mmol/L AO ADM SS Urea nitrogen [Mass/Vol] 12 mg/dL Normal 7 - 18 mg/dL AO ADM SS Urea nitrogen/Creatinine [Mass ratio] 15 ratio Normal 7 - 27 ratio AO ADM SS WBC (Bld) [#/Vol] 6.4 103/mcL Normal 4.5 - 10.8 10^3/mcL AO Workflow SS Anion gap in Serum or Plasma Ordered By: Brittany Yarbrough on 03-04-2025 Anion gap [Moles/Vol] 10 mmol/L 5-15 [facility] BUN/creatinine ratioOrdered By: Brittany Yarbrough on 03-04-2025 Urea nitrogen/Creatinine [Mass ratio] 7.3 mg/mg Low 10-20 [facility] Basic Metabolic Profile (BMP )on 03-04-2025 BUN/CRE 7.3 RATIO Low - [facility] Comment on above: Performed By: #### L 501.7400 #### [facility] [address] [place], [address] Calcium [Mass/Vol] 8.6 mg/dL Normal 7.6-11.0 [facility] Comment on above: Performed By: #### L [id number] #### [facility] [address] [place], [address] Chloride [Moles/Vol] 103 mmol/L Normal 98-108 [facility] Comment on above: Performed By: #### L [id number] #### [facility] [address] [place], [address] CO2 [Moles/Vol] 23.0 mmol/L Normal 21.0-32.0 [facility] Comment on above: Performed By: #### L 501.7400 #### [facility] [address] [place], [address] Creatinine [Mass/Vol] 0.67 mg/dL Low 0.70-1.20 [facility] Comment on above: Performed By: #### L [id number] #### [facility] [address] [place], [address] ECRCL 60.18 ml/min Normal 50-250 [facility] Comment on above: Performed By: #### L 501.7400 #### [facility] [address] [place], [address] GAP 10 Normal 5-15 [facility] Comment on above: Performed By: #### L 501.7400 #### [facility] [address] [place], [address] GFR/1.73 sq M.predicted among non-blacks MDRD (S/P/Bld) [Vol rate/Area] 91 mL/min/{1.73_m2} Normal >60 [facility] Comment on above: Result Comment: mL/m in/1.73m2 CKD-EPI Creatinine Equation (2020) Performed By: #### L 501.7400 #### [facility] [address] [place], [address] Glucose [Mass/Vol] 183 mg/dL High 70-99 [facility] Comment on above: Performed By: #### L 501.7400 #### [facility] [address] [place], [address] Potassium [Moles/Vol] 4.1 mmol/L Normal 3.3-5.1 [facility] Comment on above: Performed By: #### L [id number] #### [facility] [address] [place], [address] Sodium [Moles/Vol] 136 mmol/L Normal 133-145 [facility] Comment on above: Performed By: #### L 501.7400 #### [facility] [address] [place], [address] Urea nitrogen [Mass/Vol] 5 mg/dL Normal 4-19 [facility] Comment on above: Performed By: #### L 501.7400 #### [facility] [address] [place], [address] CBC-Complete Blood Cnt No Di ffon 03-04-2025 Erythrocyte distribution width (RBC) [Ratio] 11.9 % Normal 11.6-14.6 [facility] Comment on above: Performed By: #### L 100.0500 #### [facility] [address] [place], [address] Hematocrit (Bld) [Volume fraction] 36.6 % Low 37-47 [facility] Comment on above: Performed By: #### L 100.0500 #### [facility] [address] [place], [address] Hemoglobin (Bld) [Mass/Vol] 12.8 g/dL Normal 12.0-15.0 [facility] Comment on above: Performed By: #### L 100.0500 #### [facility] [address] [place], [address] MCH (RBC) [Entitic mass] 31.3 pg Normal 27.0-32.0 [facility] Comment on above: Performed By: #### L 100.0500 #### [facility] [address] [place], [address] MCHC (RBC) [Mass/Vol] 35.0 g/dL Normal 32-36 [facility] Comment on above: Performed By: #### L 100.0500 #### [facility] [address] [place], [address] MCV (RBC) [Entitic vol] 89.5 fL Normal 81-99 [facility] Comment on above: Performed By: #### L 100.0500 #### [facility] [address] [place], [address] Platelet mean volume (Bld) [Entitic vol] 10.5 fL Normal 6.2-12.0 [facility] Comment on above: Performed By: #### L 100.0500 #### [facility] [address] [place], [address] Platelets (Bld) [#/Vol] 112 10*3/uL Low 150-450 [facility] Comment on above: Performed By: #### L 100.0500 #### [facility] [address] [place], [address] RBC (Bld) [#/Vol] 4.09 10*6/uL Low 4.2-5.4 [facility] Comment on above: Performed By: #### L 100.0500 #### [facility] [address] [place], [address] RDW SD 39.0 fl Normal 35.1-43.9 [facility] Comment on above: Performed By: #### L 100.0500 #### [facility] [address] [place], [address] WBC (Bld) [#/Vol] 4.9 10*3/uL Normal 4.4-11.0 [facility] Comment on above: Performed By: #### L 100.0500 #### [facility] [address] [place], [address] CDIFF (PCR)on 03-04-2025 CDIFF Is the patient receiving laxatives? N New/unexplained onset of 3 or more stools in past 24 hrs? Y C diff DNA Spec Ql JACOB+probe Reference Range: Negative Cepheid GeneXpert: polymerase chain reaction (PCR) 027 027 NAP1-B1 Presumptive Negative *for epidemiolologic???use C. Diff PCR Negative- No toxigenic C. Diff Detected Normal [facility] Comment on above: Performed By: #### L 400.0001 #### [facility] [address] [place], [address] Carbon dioxide, total [Moles /volume] in Central venous bloodOrdered By: Brittany Yarbrough on 03-04-2025 CO2 [Moles/Vol] 23.0 mmol/L 21.0-32.0 [facility] Chloride assayOrdered By: Alfonso Yarbrough on 03-04-2025 Chloride [Moles/Vol] 103 mmol/L 98-108 [facility] Clostridium difficile detect ion by polymerase chain reactionOrdered By: Eder Cifuentes on 03-04-2025 C. difficile DNA JACOB+probe Ql (Unsp spec) [facility] ENTERIC PATHOGEN PANEL STOOL on 03-04-2025 EP PANEL Is the patient receiving laxatives? N New/unexplained onset of 3 or more stools in past 24 hrs? Y Normal Reference Range = Not Detected Not detected for Campylobacter group, Salmonella species, Shigella species, Vibrio Group, Yersinia enterocolitica, EHEC (Shiga Toxin 1, Shiga Toxin 2), Norovirus Gl/Gll, and Rotavirus A. Other common stool pathogens are not detected on this panel include: Aeromonas/Plesiomonas or parasites. Order testing for these organisms separately if suspected. This is an amplified DNA test which makes it both specific and sensitive. CAMPYLOBACTER Not Detected Norovirus Not Detected Rotavirus Not Detected Salmonella Not Detected Shiga Toxin Not Detected Shigella sp. Not Detected VIBRIO Not Detected Yersinia Not Detected Normal [facility] Comment on above: Performed By: #### L 400.0001 #### [facility] [address] [place], [place], [id number] Erythrocyte distribution wid th ratioOrdered By: Brittany Yarbrough on 03-04-2025 Erythrocyte distribution width (RBC) [Ratio] 11.9 % 11.6-14.6 [facility] Erythrocyte distribution wid th standard deviationOrdered By: Brittany Yarbrough on 03-04-2025 Erythrocyte distribution width (RBC) [Ratio] 39.0 fl 35.1-43.9 [facility] Glomerular filtration rate ( GFR) estimation/1.73 sq m using serum, plasma, or whole bOrdered By: Brittany Yarbrough on 03-04-2025 GFR/1.73 sq M.predicted among non-blacks MDRD (S/P/Bld) [Vol rate/Area] 91 mL/min/{1.73_m2} >60 [facility] Comment on above: mL/min/1.73m2 CKD-EP I Creatinine Equation (2020) Hematocrit Auto (Bld) [Volum e fraction]Ordered By: Brittany Yarbrough on 03-04-2025 Hematocrit (Bld) [Volume fraction] 36.6 % Low 37-47 [facility] Hemoglobin measurementOrdere d By: Brittany Yarbrough on 03-04-2025 Hemoglobin (Bld) [Mass/Vol] 12.8 g/dL 12.0-15.0 [facility] MCV (mean corpuscular volume ) determinationOrdered By: Brittany Yarbrough on 03-04-2025 MCV (RBC) [Entitic vol] 89.5 fL 81-99 [facility] Magnesiumon 03-04-2025 Magnesium [Mass/Vol] 1.8 mg/dL Normal 1.5-2.2 [facility] Comment on above: Performed By: #### L 078.2500 #### [facility] [address] [place], [place], [id number] Magnesium measurement (mass/ volume)Ordered By: Brittany Yarbrough on 03-04-2025 Magnesium (Unsp spec) [Mass/Vol] 1.8 mg/dL 1.5-2.2 [facility] Mean corpuscular hemoglobin (MCH) determinationOrdered By: Brittany Yarbrough on 03-04-2025 MCH (RBC) [Entitic mass] 31.3 pg 27.0-32.0 [facility] Mean corpuscular hemoglobin concentration (MCHC) determinationOrdered By: Brittany Yarbrough on 03-04-2025 MCHC (RBC) [Mass/Vol] 35.0 g/dL 32-36 [facility] Mean platelet volume determi nationOrdered By: Brittany Yarbrough on 03-04-2025 Platelet mean volume (Bld) [Entitic vol] 10.5 fL 6.2-12.0 [facility] Phosphoruson 03-04-2025 Phosphate [Mass/Vol] 3.2 mg/dL Normal 2.7-4.5 [facility] Comment on above: Performed By: #### L 316.7400 #### [facility] [address] [place], [address] Platelet countOrdered By: Alfonso Yarbrough on 03-04-2025 Platelets (Bld) [#/Vol] 112 10*3/uL Low 150-450 [facility] Potassium measurement (mass/ volume)Ordered By: Brittany Yarbrough on 03-04-2025 Potassium (Unsp spec) [Mass/Vol] 4.1 mmol/L 3.3-5.1 [facility] RBC Auto (Bld) [#/Vol]Ordere d By: Brittany Yarbrough on 03-04-2025 RBC (Bld) [#/Vol] 4.09 10*6/uL Low 4.2-5.4 [facility] Serum creatinine measurement (mass/volume)Ordered By: Brittany Yarbrough on 03-04-2025 Creatinine [Mass/Vol] 0.67 mg/dL Low 0.70-1.20 [facility] Serum glucose measurement (m ass/volume)Ordered By: Brittany Yarbrough on 03-04-2025 Glucose [Mass/Vol] 183 mg/dL High 70-99 [facility] Serum or plasma calcium pavel urement (mass/volume)Ordered By: Brittany Yarbrough on 03-04-2025 Calcium [Mass/Vol] 8.6 mg/dL 7.6-11.0 [facility] Serum or plasma urea nitroge n measurement (mass/volume)Ordered By: Brittany Yarbrough on 03-04-2025 Urea nitrogen [Mass/Vol] 5 mg/dL 4-19 [facility] Sodium levelOrdered By: Catrina Yarbrough on 03-04-2025 Sodium [Moles/Vol] 136 mmol/L 133-145 [facility] Stool Lactoferrin/WBCon 07-0 WBCST Is the patient receiving laxatives? N New/unexplained onset of 3 or more stools in past 24 hrs? Y Normal Reference Range = Negative Fecal WBC Lactoferrin Negative: No Fecal WBC Lactoferrin present Normal [facility] Comment on above: Performed By: #### L 400.0001 #### [facility] [address] [place], [place], [id number] Stool lactoferrin detection by immunoassayOrdered By: Eder Cifuentes on 03-04-2025 Lactoferrin IA Ql (Stl) [facility] Urine Cultureon 03-04-2025 URC Mixed Gram Pos Gram Neg Org [place] Count 50,000-80,000 MIXC Mixed contaminants. Submit a new specimen if indicated. Normal [facility] Comment on above: Performed By: #### L 400.0001 #### [facility] [address] [place], [address] White blood cell (WBC) count Ordered By: Brittany Yarbrough on 03-04-2025 WBC (Bld) [#/Vol] 4.9 10*3/uL 4.4-11.0 [facility] Absolute lymphocyte countOrd ered By: Eder Cifuentes on 03-03-2025 Lymphocytes Auto (Unsp spec) [#/Vol] 1.09 10*3/uL 0.83-4.51 [facility] Absolute neutrophil countOrd ered By: Eder Cifuentes on 03-03-2025 Neutrophils (Bld) [#/Vol] 3.3 10*3/uL 2.0-7.7 [facility] Automated lymphocyte count a s percentage of total leukocytesOrdered By: Eder Cifuentes on 03-03-2025 Lymphocytes/100 WBC Auto (Unsp spec) 22.1 % 19-41 [facility] Basic Metabolic Profile (BMP )on 03-03-2025 BUN/CRE 10.4 RATIO Normal 10-20 [facility] Comment on above: Performed By: #### L 500.2500 #### [facility] [address] [place], [address] Calcium [Mass/Vol] 8.2 mg/dL Normal 7.6-11.0 [facility] Comment on above: Performed By: #### L 500.2500 #### [facility] [address] [place], [address] Chloride [Moles/Vol] 100 mmol/L Normal 98-108 [facility] Comment on above: Performed By: #### L 500.2500 #### [facility] [address] [place], [address] CO2 [Moles/Vol] 21.7 mmol/L Normal 21.0-32.0 [facility] Comment on above: Performed By: #### L 500.2500 #### [facility] [address] [place], [address] Creatinine [Mass/Vol] 0.72 mg/dL Normal 0.70-1.20 [facility] Comment on above: Performed By: #### L 500.2500 #### [facility] [address] [place], [address] ECRCL 60.22 ml/min Normal 50-250 [facility] Comment on above: Performed By: #### L 500.2500 #### [facility] [address] [place], [address] GAP 10 Normal 5-15 [facility] Comment on above: Performed By: #### L 500.2500 #### [facility] [address] [place], [address] GFR/1.73 sq M.predicted among non-blacks MDRD (S/P/Bld) [Vol rate/Area] 86 mL/min/{1.73_m2} Normal >60 [facility] Comment on above: Result Comment: mL/m in/1.73m2 CKD-EPI Creatinine Equation (2020) Performed By: #### L 500.2500 #### [facility] [address] [place], [address] Glucose [Mass/Vol] 267 mg/dL High 70-99 [facility] Comment on above: Performed By: #### L 500.2500 #### [facility] [address] [place], [address] Potassium [Moles/Vol] 4.4 mmol/L Normal 3.3-5.1 [facility] Comment on above: Performed By: #### L 500.2500 #### [facility] [address] [place], [address] Sodium [Moles/Vol] 132 mmol/L Low 133-145 [facility] Comment on above: Performed By: #### L 500.2500 #### [facility] [address] [place], [address] Urea nitrogen [Mass/Vol] 7 mg/dL Normal 4-19 [facility] Comment on above: Performed By: #### L 500.2500 #### [facility] [address] [place], [address] Basophil percentageOrdered B y: Eder Cifuentes on 03-03-2025 Basophils/100 WBC (Bld) 0.8 % 0-1 [facility] Bedside Glucoseon 03-03-2025 FINGERSTICK GLU 261 mg/dL High 74-106 [facility] Comment on above: Result Comment: RASHMI BRIGGS OF PATIENT CARE PER NURSING PROTOCOL Performed By: #### L 501.7400 #### [facility] [address] [place], [address] Bilirubin, totalOrdered By: Eder Cifuentes on 03-03-2025 Bilirubin [Mass/Vol] 0.32 mg/dL 0.00-1.30 [facility] CBC W/Diff, Automatedon Absolute Lymph 1.09 X10 3/uL Normal 0.83-4.51 [facility] Comment on above: Performed By: #### L 501.7400 #### [facility] [address] [place], [address] Absolute Neut 3.3 X10 3/uL Normal 2.0-7.7 [facility] Comment on above: Performed By: #### L 501.7400 #### [facility] [address] [place], [address] Basophils/100 WBC (Bld) 0.8 % Normal 0-1 [facility] Comment on above: Performed By: #### L 501.7400 #### [facility] [address] [place], [address] Eosinophils/100 WBC (Bld) 0.8 % Normal 0-5 [facility] Comment on above: Performed By: #### L 501.7400 #### [facility] [address] [place], [address] Erythrocyte distribution width (RBC) [Ratio] 11.7 % Normal 11.6-14.6 [facility] Comment on above: Performed By: #### L 501.7400 #### [facility] [address] [place], [address] Hematocrit (Bld) [Volume fraction] 37.0 % Normal 37-47 [facility] Comment on above: Performed By: #### L .7400 #### [facility] [address] [place], [address] Hemoglobin (Bld) [Mass/Vol] 13.0 g/dL Normal 12.0-15.0 [facility] Comment on above: Performed By: #### L .7400 #### [facility] [address] [place], [address] IG% 0.400 Normal 0.0-0.9 [facility] Comment on above: Result Comment: IG% - Immature Granulocytes (promyelocytes, myelocytes and metamyelocytes) > 1% indicates that a LEFT SHIFT is Present. Performed By: #### L .7400 #### [facility] [address] [place], [address] Lymphocytes/100 WBC (Bld) 22.1 % Normal 19-41 [facility] Comment on above: Performed By: #### L .7400 #### [facility] [address] [place], [address] MCH (RBC) [Entitic mass] 31.1 pg Normal 27.0-32.0 [facility] Comment on above: Performed By: #### L .7400 #### [facility] [address] [place], [address] MCHC (RBC) [Mass/Vol] 35.1 g/dL Normal 32-36 [facility] Comment on above: Performed By: #### L 501.7400 #### [facility] [address] [place], [address] MCV (RBC) [Entitic vol] 88.5 fL Normal 81-99 [facility] Comment on above: Performed By: #### L 501.7400 #### [facility] [address] [place], [address] Monocytes/100 WBC (Bld) 8.3 % Normal 0-10 [facility] Comment on above: Performed By: #### L 501.7400 #### [facility] [address] [place], [address] Neutrophils/100 WBC (Bld) 67.6 % Normal 47-70 [facility] Comment on above: Performed By: #### L 501.7400 #### [facility] [address] [place], [address] Nucleated RBC (Bld) [#/Vol] 0 10*3/uL Normal 0-5 [facility] Comment on above: Performed By: #### L 501.7400 #### [facility] [address] [place], [address] Platelet mean volume (Bld) [Entitic vol] 10.9 fL Normal 6.2-12.0 [facility] Comment on above: Performed By: #### L 501.7400 #### [facility] [address] [place], [address] Platelets (Bld) [#/Vol] 110 10*3/uL Low 150-450 [facility] Comment on above: Performed By: #### L 501.7400 #### [facility] [address] [place], [address] RBC (Bld) [#/Vol] 4.18 10*6/uL Low 4.2-5.4 [facility] Comment on above: Performed By: #### L 501.7400 #### [facility] [address] [place], [address] RDW SD 37.4 fl Normal 35.1-43.9 [facility] Comment on above: Performed By: #### L 501.7400 #### [facility] [address] [place], [address] WBC (Bld) [#/Vol] 4.9 10*3/uL Normal 4.4-11.0 [facility] Comment on above: Performed By: #### L 501.7400 #### [facility] [address] [place], [address] Comprehensive Metabolic Prof [facility] 03-03-2025 Albumin [Mass/Vol] 3.6 g/dL Normal 3.4-4.8 [facility] Comment on above: Performed By: #### L 501.7400 #### [facility] [address] [place], [address] Albumin/Globulin [Mass ratio] 1.6 {ratio} Normal 0.9-2.4 [facility] Comment on above: Performed By: #### L 501.7400 #### [facility] [address] [place], [address] ALK PHOS 55 U/L Normal 35-104 [facility] Comment on above: Performed By: #### L 501.7400 #### [facility] [address] [place], [address] ALT [Catalytic activity/Vol] 13 U/L Normal <=34 [facility] Comment on above: Performed By: #### L 501.7400 #### [facility] [address] [place], [address] AST [Catalytic activity/Vol] 29 U/L Normal <=31 [facility] Comment on above: Performed By: #### L 501.7400 #### [facility] [address] [place], [address] Bilirubin [Mass/Vol] 0.32 mg/dL Normal 0.00-1.30 [facility] Comment on above: Performed By: #### L 501.7400 #### [facility] [address] [place], [address] BUN/CRE 12.3 RATIO Normal 10-20 [facility] Comment on above: Performed By: #### L 501.7400 #### [facility] [address] [place], [address] Calcium [Mass/Vol] 8.5 mg/dL Normal 7.6-11.0 [facility] Comment on above: Performed By: #### L 501.7400 #### [facility] [address] [place], [address] Chloride [Moles/Vol] 100 mmol/L Normal 98-108 [facility] Comment on above: Performed By: #### L 501.7400 #### [facility] [address] [place], [address] CO2 [Moles/Vol] 23.5 mmol/L Normal 21.0-32.0 [facility] Comment on above: Performed By: #### L 501.7400 #### [facility] [address] [place], [address] Creatinine [Mass/Vol] 0.74 mg/dL Normal 0.70-1.20 [facility] Comment on above: Performed By: #### L 501.7400 #### [facility] [address] [place], [address] ECRCL 60.22 ml/min Normal 50-250 [facility] Comment on above: Performed By: #### L 501.7400 #### [facility] [address] [place], [address] GAP 8 Normal 5-15 [facility] Comment on above: Performed By: #### L 501.7400 #### [facility] [address] [place], [address] GFR/1.73 sq M.predicted among non-blacks MDRD (S/P/Bld) [Vol rate/Area] 84 mL/min/{1.73_m2} Normal >60 [facility] Comment on above: Result Comment: mL/m in/1.73m2 CKD-EPI Creatinine Equation (2020) Performed By: #### L 501.7400 #### [facility] [address] [place], [address] Globulin (S) [Mass/Vol] 2.2 g/dL Normal 2.2-4.2 [facility] Comment on above: Performed By: #### L 501.7400 #### [facility] [address] [place], [address] Glucose [Mass/Vol] 169 mg/dL High 70-99 [facility] Comment on above: Performed By: #### L 501.7400 #### [facility] [address] [place], [address] Potassium [Moles/Vol] 4.7 mmol/L Normal 3.3-5.1 [facility] Comment on above: Performed By: #### L 501.7400 #### [facility] [address] [place], [address] Sodium [Moles/Vol] 131 mmol/L Low 133-145 [facility] Comment on above: Performed By: #### L 501.7400 #### [facility] [address] [place], [address] T PROT 5.8 g/dL Low 5.9-8.4 [facility] Comment on above: Performed By: #### L 501.7400 #### [facility] [address] [place], [address] Urea nitrogen [Mass/Vol] 9 mg/dL Normal 4-19 [facility] Comment on above: Performed By: #### L 501.7400 #### [facility] [address] [place], [address] Eosinophil percentageOrdered By: Eder Cifuentes on 03-03-2025 Eosinophils/100 WBC (Bld) 0.8 % 0-5 [facility] deOrdered By: Brittany Yarbrough on 03-03-2025 Glucose [Mass/Vol] 261 mg/dL High 74-106 [facility] Comment on above: MANAGEMENT OF PATIEN T CARE PER NURSING PROTOCOL Immature granulocytes/100 WB C Auto (Bld)Ordered By: Eder Cifuentes on 03-03-2025 Immature granulocytes/100 WBC (Bld) 0.400 % 0.0-0.9 [facility] Comment on above: IG% - Immature Granu locytes (promyelocytes, myelocytes and metamyelocytes) > 1% indicates that a LEFT SHIFT is Present. Laboratory - Chemistry and C hemistry - challengeOrdered By: Eder Cifuentes on 03-03-2025 AST [Catalytic activity/Vol] 29 U/L <32 [facility] Monocyte percentageOrdered B y: Eder Cifuentes on 03-03-2025 Monocytes/100 WBC (Bld) 8.3 % 0-10 [facility] Neutrophil percentageOrdered By: Eder Cifuentes on 03-03-2025 Neutrophils/100 WBC (Bld) 67.6 % 47-70 [facility] Nucleated red blood cell per centageOrdered By: Eder Cifuentes on 03-03-2025 Nucleated RBC/100 WBC (Bld) [Ratio] 0 % 0-5 [facility] Phosphoruson 03-03-2025 Phosphate [Mass/Vol] 2.9 mg/dL Normal 2.7-4.5 [facility] Comment on above: Performed By: #### L 524.8382 #### [facility] [place], [address] Serum globulin measurementOr dered By: Eder Cifuentes on 03-03-2025 Globulin (S) [Mass/Vol] 2.2 g/dL 2.2-4.2 [facility] Serum or plasma alanine graham otransferase (ALT) measurementOrdered By: Eder Cifuentes on 03-03-2025 ALT [Catalytic activity/Vol] 13 U/L <35 [facility] Serum or plasma albumin pavel urement (mass/volume)Ordered By: Eder Cifuentes on 03-03-2025 Albumin [Mass/Vol] 3.6 g/dL 3.4-4.8 [facility] Serum or plasma albumin/glob ulin mass ratioOrdered By: Eder Cifuentes on 03-03-2025 Albumin/Globulin [Mass ratio] 1.6 {ratio} 0.9-2.4 [facility] Serum or plasma alkaline marilou sphatase measurementOrdered By: Eder Cifuentes on 03-03-2025 ALP [Catalytic activity/Vol] 55 U/L 35-104 [facility] Total proteinOrdered By: Jn Cifuentes on 03-03-2025 Protein [Mass/Vol] 5.8 g/dL Low 5.9-8.4 [facility] Absolute lymphocyte countOrd ered By: Justyn Rojas on 03-02-2025 Lymphocytes Auto (Unsp spec) [#/Vol] 0.82 10*3/uL Low 0.83-4.51 [facility] Absolute neutrophil countOrd ered By: Justyn Rojas on 03-02-2025 Neutrophils (Bld) [#/Vol] 4.4 10*3/uL 2.0-7.7 [facility] Anion gap in Serum or Plasma Ordered By: Justyn Rojas on 03-02-2025 Anion gap [Moles/Vol] 9 mmol/L 5-15 [facility] Automated lymphocyte count a s percentage of total leukocytesOrdered By: Justyn Rojas on 03-02-2025 Lymphocytes/100 WBC Auto (Unsp spec) 14.2 % Low 19-41 [facility] BUN/creatinine ratioOrdered By: Justyn Rojas on 03-02-2025 Urea nitrogen/Creatinine [Mass ratio] 16.3 mg/mg 10-20 [facility] Basophil percentageOrdered B y: Justyn Rojas on 03-02-2025 Basophils/100 WBC (Bld) 0.3 % 0-1 [facility] Bilirubin Test strip Ql (U)O rdered By: Justyn Rojas on 03-02-2025 Bilirubin Ql (U) Negative Negative [facility] Bilirubin, totalOrdered By: Justyn Rojas on 03-02-2025 Bilirubin [Mass/Vol] 0.38 mg/dL 0.00-1.30 [facility] Brain/Head without Contrasto n 03-02-2025 Brain/Head without Contrast [facility] Services [address] [place], [place] [address] Brain/Head without Contrast MR#: [id number] Acct: [id number] Name: RAGHAV GREGORY Rep #: [id number] : [id number] F [id number] From: Celeste Miranda nd, MD PCP: Dr. Mathieu Roland, DO Status: REG ER Study: Brain/Head without Contrast Date of Exam: 11/22 Exam# [id number] Ordering Dr: Justyn Rojas MD EXAM: BRAIN/HEAD WITHOUT CONTRAST CLINICAL HISTORY: 74 y/o F with FALL/TRAUMA, APIXABAN. COMPARISON: None. TECHNIQUE: Routine CT imaging of the head without IV contrast. Additional multiplanar reformats were obtained. Dose reduction techniques were used including intermediate exposure control (AEC),iterative reconstruction technique, and/or mA and/or KV dose adjustments based on patient's size. FINDINGS: The ventricles, sulci and cisterns are normal for patient age. There is no evidence of acute intracranial hemorrhage or herniation. There is no midline shift, mass effect, or extra-axial collection. Moderate patchy supratentorial white matter hypodensities. The becerra and white matter differentiation is otherwise maintained. Prior ocular lens replacements. The visualized paranasal sinuses and mastoids are unremarkable. No acute calvarial fracture or scalp hematoma. CT/Brain/Head without Contrast IMPRESSION: No acute intracranial finding. Reading Location: [id number] CC: Dr. Justyn Rojas MD; Dr. Mathieu Roland DO Sap Technical Developer: Signed Normal [facility] CBC W/Diff, Automatedon 07-0 -2024 Absolute Lymph 0.82 X10 3/uL Low 0.83-4.51 [facility] Comment on above: Performed By: #### L 100.0100 #### [facility] [address] [place], [address] Absolute Neut 4.4 X10 3/uL Normal 2.0-7.7 [facility] Comment on above: Performed By: #### L 100.0100 #### [facility] [address] [place], [address] Basophils/100 WBC (Bld) 0.3 % Normal 0-1 [facility] Comment on above: Performed By: #### L 100.0100 #### [facility] [address] [place], [address] Eosinophils/100 WBC (Bld) 0.3 % Normal 0-5 [facility] Comment on above: Performed By: #### L 100.0100 #### [facility] [address] [place], [address] Erythrocyte distribution width (RBC) [Ratio] 11.9 % Normal 11.6-14.6 [facility] Comment on above: Performed By: #### L 100.0100 #### [facility] [address] [place], [address] Hematocrit (Bld) [Volume fraction] 38.6 % Normal 37-47 [facility] Comment on above: Performed By: #### L 100.0100 #### [facility] [address] [place], [address] Hemoglobin (Bld) [Mass/Vol] 13.5 g/dL Normal 12.0-15.0 [facility] Comment on above: Performed By: #### L 100.0100 #### [facility] [address] [place], [address] IG% 0.200 Normal 0.0-0.9 [facility] Comment on above: Result Comment: IG% - Immature Granulocytes (promyelocytes, myelocytes and metamyelocytes) > 1% indicates that a LEFT SHIFT is Present. Performed By: #### L 100.0100 #### [facility] [address] [facility] [place], [address] Lymphocytes/100 WBC (Bld) 14.2 % Low 19-41 [facility] Comment on above: Performed By: #### L 100.0100 #### [facility] [address] [place], [address] MCH (RBC) [Entitic mass] 31.3 pg Normal 27.0-32.0 [facility] Comment on above: Performed By: #### L 100.0100 #### [facility] [address] [facility] [place], [address] MCHC (RBC) [Mass/Vol] 35.0 g/dL Normal 32-36 [facility] Comment on above: Performed By: #### L 100.0100 #### [facility] [address] [place], [address] MCV (RBC) [Entitic vol] 89.4 fL Normal 81-99 [facility] Comment on above: Performed By: #### L 100.0100 #### [facility] [address] [place], [address] Monocytes/100 WBC (Bld) 8.0 % Normal 0-10 [facility] Comment on above: Performed By: #### L 100.0100 #### [facility] [address] [place], [address] Neutrophils/100 WBC (Bld) 77.0 % High 47-70 [facility] Comment on above: Performed By: #### L 100.0100 #### [facility] [address] [place], [address] Nucleated RBC (Bld) [#/Vol] 0 10*3/uL Normal 0-5 [facility] Comment on above: Performed By: #### L 100.0100 #### [facility] [address] [place], [address] Platelet mean volume (Bld) [Entitic vol] 12.0 fL Normal 6.2-12.0 [facility] Comment on above: Performed By: #### L 100.0100 #### [facility] [address] [place], [address] Platelets (Bld) [#/Vol] 183 10*3/uL Normal 150-450 [facility] Comment on above: Performed By: #### L 100.0100 #### [facility] [address] [place], [address] RBC (Bld) [#/Vol] 4.32 10*6/uL Normal 4.2-5.4 [facility] Comment on above: Performed By: #### L 100.0100 #### [facility] [address] [place], [address] RDW SD 38.5 fl Normal 35.1-43.9 [facility] Comment on above: Performed By: #### L 100.0100 #### [facility] [address] [place], [address] WBC (Bld) [#/Vol] 5.8 10*3/uL Normal 4.4-11.0 [facility] Comment on above: Performed By: #### L 100.0100 #### [facility] [address] [place], [address] CPK Total, Creatine Kinaseon 03-02-2025 CPK TOTAL 574 U/L High 24-195 [facility] Comment on above: Performed By: #### L 501.3620, L501.7300, L501.5200, L501.9520 #### [facility] [address] [place], [address] Carbon dioxide, total [Moles /volume] in Central venous bloodOrdered By: Justyn Rojas on 03-02-2025 CO2 [Moles/Vol] 22.8 mmol/L 21.0-32.0 [facility] Chloride assayOrdered By: Patience Rojas on 03-02-2025 Chloride [Moles/Vol] 93 mmol/L Low 98-108 [facility] Comprehensive Metabolic Prof ilon 03-02-2025 Albumin [Mass/Vol] 3.7 g/dL Normal 3.4-4.8 [facility] Comment on above: Performed By: #### L 500.4050 #### [facility] [address] [place], [address] Albumin/Globulin [Mass ratio] 1.5 {ratio} Normal 0.9-2.4 [facility] Comment on above: Performed By: #### L 500.4050 #### [facility] [address] [place], [address] ALK PHOS 58 U/L Normal 35-104 [facility] Comment on above: Performed By: #### L 500.4050 #### [facility] [address] [place], [address] ALT [Catalytic activity/Vol] 15 U/L Normal <=34 [facility] Comment on above: Performed By: #### L 500.4050 #### [facility] [address] [place], [address] AST [Catalytic activity/Vol] 30 U/L Normal <=31 [facility] Comment on above: Performed By: #### L 500.4050 #### [facility] [address] [place], [address] Bilirubin [Mass/Vol] 0.38 mg/dL Normal 0.00-1.30 [facility] Comment on above: Performed By: #### L 500.4050 #### [facility] [address] [place], [address] BUN/CRE 16.3 RATIO Normal 10-20 [facility] Comment on above: Performed By: #### L 500.4050 #### [facility] [address] [place], [address] Calcium [Mass/Vol] 8.9 mg/dL Normal 7.6-11.0 [facility] Comment on above: Performed By: #### L 500.4050 #### [facility] [address] [place], [address] Chloride [Moles/Vol] 93 mmol/L Low 98-108 [facility] Comment on above: Performed By: #### L 500.4050 #### [facility] [address] [place], [address] CO2 [Moles/Vol] 22.8 mmol/L Normal 21.0-32.0 [facility] Comment on above: Performed By: #### L 500.4050 #### [facility] [address] [place], [address] Creatinine [Mass/Vol] 0.83 mg/dL Normal 0.70-1.20 [facility] Comment on above: Performed By: #### L 500.4050 #### [facility] [address] [place], [address] ECRCL 58.15 ml/min Normal 50-250 [facility] Comment on above: Performed By: #### L 500.4050 #### [facility] [address] [place], [address] GAP 9 Normal 5-15 [facility] Comment on above: Performed By: #### L 500.4050 #### [facility] [address] [place], [address] GFR/1.73 sq M.predicted among non-blacks MDRD (S/P/Bld) [Vol rate/Area] 73 mL/min/{1.73_m2} Normal >60 [facility] Comment on above: Result Comment: mL/m in/1.73m2 CKD-EPI Creatinine Equation (2020) Performed By: #### L 500.4050 #### [facility] [address] [place], [address] Globulin (S) [Mass/Vol] 2.5 g/dL Normal 2.2-4.2 [facility] Comment on above: Performed By: #### L 500.4050 #### [facility] [address] [place], [address] Glucose [Mass/Vol] 196 mg/dL High 70-99 [facility] Comment on above: Performed By: #### L 500.4050 #### [facility] [address] [place], [address] Potassium [Moles/Vol] 5.1 mmol/L Normal 3.3-5.1 [facility] Comment on above: Performed By: #### L 500.4050 #### [facility] [address] [place], [address] Sodium [Moles/Vol] 125 mmol/L Low 133-145 [facility] Comment on above: Performed By: #### L 500.4050 #### [facility] [address] [place], [address] T PROT 6.2 g/dL Normal 5.9-8.4 [facility] Comment on above: Performed By: #### L 500.4050 #### [facility] [address] [place], [address] Urea nitrogen [Mass/Vol] 14 mg/dL Normal 4-19 [facility] Comment on above: Performed By: #### L 500.4050 #### [facility] [address] [place], [address] ALB Normal 3.4-4.8 [facility] Comment on above: Result Comment: darian eric, spoke with steven Performed By: #### L 500.4050 #### [facility] [address] [place], [address] ALK PHOS Normal 35-104 [facility] Comment on above: Result Comment: darian eric, spoke with steven Performed By: #### L [id number] #### [facility] [address] [place], [address] ALT Normal <=34 [facility] Comment on above: Result Comment: darian eric, spoke with steven Performed By: #### L [id number] #### [facility] [address] [place], [address] AST Normal <=31 [facility] Comment on above: Result Comment: darian eric, spoke with steven Performed By: #### L [id number] #### [facility] [address] [place], [address] BUN Normal 4-19 [facility] Comment on above: Result Comment: darian eric, spoke with steven Performed By: #### L [id number] #### [facility] [address] [place], [address] BUN/CRE Normal 10-20 [facility] Comment on above: Result Comment: hemo lyzed, spoke with steven Performed By: #### L [id number] #### [facility] [address] [place], [address] Calcium Normal 7.6-11.0 [facility] Comment on above: Result Comment: hemo lyzed, spoke with steven Performed By: #### L [id number] #### [facility] [address] [place], [address] CL Normal 98-108 [facility] Comment on above: Result Comment: hemo lyzed, spoke with steven Performed By: #### L [id number] #### [facility] [address] [place], [address] CO2 Normal 21.0-32.0 [facility] Comment on above: Result Comment: hemo lymarko, spoke with steven Performed By: #### L [id number] #### [facility] [address] [place], [address] CREAT,SERUM Normal 0.70-1.20 [facility] Comment on above: Result Comment: hemo hernesto, spoke with steven Performed By: #### L [id number] #### [facility] [address] [place], [address] eGFR Normal >60 [facility] Comment on above: Result Comment: hemo lymarko, spoke with steven Performed By: #### L [id number] #### [facility] [address] [place], [address] GAP Normal 5-15 [facility] Comment on above: Result Comment: hemo lymarko, spoke with steven Performed By: #### L [id number] #### [facility] [address] [place], [address] GLU Normal 70-99 [facility] Comment on above: Result Comment: hemo lymarko, spoke with steven Performed By: #### L [id number] #### [facility] [address] [place], [address] Potassium Normal 3.3-5.1 [facility] Comment on above: Result Comment: hemsony eric, spoke with steven Performed By: #### L [id number] #### [facility] [address] [place], [address] T BILI Normal 0.00-1.30 [facility] Comment on above: Result Comment: hemsony eric, spoke with steven Performed By: #### L [id number] #### [facility] [address] [place], [address] T PROT Normal 5.9-8.4 [facility] Comment on above: Result Comment: darian eric, spoke with steven Performed By: #### L [id number] #### [facility] [address] [place], [address] Comprehensive Metabolic Profil Normal 133-145 [facility] Comment on above: Result Comment: darian eric, spoke with steven Performed By: #### L [id number] #### [facility] [address] [place], [address] Emergency Department Summary on 03-02-2025 Emergency Department Summary [facility] Medical Records Department [address] [place] [address] Emergency Department Summary 03/02/25 MR#: [id number] Acct: [id number] Name: RAGHAV GREGORY Rep #: [id number] : 1950 74 From: Justyn Rojas MD PCP: Dr. Mathieu Roland, DO Status:REG ER Location: ED HPI History of Present Illness Chief Complaint: Abn Labs Informant: patient and family Narrative Narrative: 74-year-old female was sent here to the ER by her PCP because of labs that were done 2 days ago that showed dangerously low sodium, however they were done at an outside facility, and they were not given to the patient if patient does not know the number. They were just told to come to the nearest ER. This was done at [facility]. She states the labs were done because she has chronic diarrhea maybe twice a day watery nonbloody no melena, and she was recently diagnosed with atrial fibrillation and started on some new medications including apixaban, and she has been getting lab checks related to that. Son states is a separate issue, she happened to have 2 falls, 1 yesterday and a minor 1 today. Yesterday her cat got between her legs, causing her to trip and fall, hitting her left forehead and sustaining a skin tear on her right dorsal hand, no other injuries. There was no loss of consciousness, she denies a headache, nausea or vomiting, but she does have some minor vision changes saying that it is hard to read close-up compared with before the fall. 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 Diabetic foot ulcer associated with type 2 diabetes mellitus Type 2 diabetes mellitus Home Medications ???Medication ???Instructions ???Recorded ???Last Taken ???Type alprazolam 0.5 mg tablet 0.5 mg PO TID PRN PRN Anxiety 07/01 02/17 Unknown History clopidogrel 75 mg tablet 75 mg PO DAILY 07/16/20 Unknown [place] ergocalciferol (vitamin D2) 1,250 1.25 unit PO QWEEK supplement Unknown History mcg (50,000 unit) capsule furosemide 40 mg tablet 40 mg PO DAILY fluid 07/16/20 Unkn own History gabapentin 600 mg tablet 600 mg PO BIDCM 07/16/20 Unknown H istory glimepiride 4 mg tablet 4 mg PO DAILY dm 07/16/20 Unknown History hydrocodone-acetamino phen 5-325mg 1 ea PO BID PRN PRN Not Specified 07/16/20 Unknown History 5mg-325mg insulin detemir U-100 100 unit/mL 28 unit SQ DAILY dm 07/16/20 Unkn own History subcutaneous solution levothyroxine 50 mcg tablet 50 mcg PO DAILY thyroid 07/16/20 U nknown History potassium chloride 20 mEq 20 meq PO DAILYCM #30 tabs 0 Unknown Rx tablet,extended release(part/cryst) hydrochlorothiazide 25 mg tablet 25 mg PO DAILY 10/31/21 Unknown Hi [place] ramipril 10 mg tablet 10 mg PO DAILY 10/31/21 Unknown Hi story semaglutide 0.25 mg or 0.5 mg (2 0.25 mg subcut QWEEK diabetes 11/19 Unknown History mg/1.5 mL) subcutaneous pen injector (Ozempic) amoxicillin 875 mg-potassium 1 tab PO Q12H #80 tabs 01/17/22 Un known Rx clavulanate 125 mg tablet doxycycline hyclate 100 mg capsule 100 mg PO BID #80 caps 01/17/22 Unknown Rx metoclopramide HCl 10 mg tablet 10 mg PO Q6H PRN nausea and Unknown Rx (Reglan) vomiting #14 tabs amlodipine 5 mg tablet 5 mg PO DAILY #30 tabs 08/22/23 Un known Rx Allergy/AdvReac Type Severity Reaction Status Date / Time No Known Allergies Allergy Verified 03/02/25 17:47 Surgical History History of appendectomy History of cholecystectomy Social History Smoking Status: Never smoker ROS ROS ED Constitutional Constitutional ED: Reports weakness; Denies chills or fever(s) Eyes Eyes: Reports change in vision bilateral (more difficult to read compared with before my fall); Denies diplopia ENT ENT ED: Denies rhinorrhea or sore throat Cardiovascular Cardiovascular: Denies chest pain or palpitations Respiratory/Chest Respiratory/Chest: Denies cough or dyspnea Gastrointestinal Gastrointestinal: Reports diarrhea; Denies abdominal pain, nausea or vomiting Genitourinary Genitourinary ED: Denies dysuria or hematuria Musculoskeletal Musculoskeletal: Denies back pain or neck pain Integumentary Denies abscess or rash Neurologic Neurologic: Denies confusion, headache(s), paresthesias or weakness Psychiatric Psychiatric: Denies anxiety or suicidal thoughts EXAM Physical Exam Const Vital Signs: 03/02/25 17:48 03/02/25 19:55 03/02/25 19:55 Temperature 97.3 F L Temperature Source Temporal Pulse Rate 68 (more content not included)... Normal [facility] Eosinophil percentageOrdered By: Justyn Bob on 03-02-2025 Eosinophils/100 WBC (Bld) 0.3 % 0-5 [facility] Erythrocyte distribution wid th ratioOrdered By: Justyn Rojas on 03-02-2025 Erythrocyte distribution width (RBC) [Ratio] 11.9 % 11.6-14.6 [facility] Erythrocyte distribution wid th standard deviationOrdered By: Justyn Bob on 03-02-2025 Erythrocyte distribution width (RBC) [Ratio] 38.5 fl 35.1-43.9 [facility] Glomerular filtration rate ( GFR) estimation/1.73 sq m using serum, plasma, or whole bOrdered By: Justyn Rojas on 03-02-2025 GFR/1.73 sq M.predicted among non-blacks MDRD (S/P/Bld) [Vol rate/Area] 73 mL/min/{1.73_m2} >60 [facility] Comment on above: mL/min/1.73m2 CKD-EP I Creatinine Equation (2020) H AND P Exam - [facility] 03-02-2025 H&P Exam - Hospitalist [facility] Medical Records Department [address] [place] [address] H P Exam - Hospitalist 03/02/25 2243 MR#: [id number] Acct: [id number] Name: RAGHAV GREGORY Rep #: [id number] : 1950 74 From: Eder Lujan DO PCP: Dr. Mathieu Roland, DO Status:ADM IN Location[place] [id number] HPI - General General Date of Admission: 03/02/25 Date of Service: 03/02/25 Chief Complaint: Low Sodium, Watery Diarrhea, Generalized Weakness and Falls. HPI Narrative RAGHAV GREGORY, is a 74 F with a past medical history of essential hypertension; on amlodipine, ramipril, as needed furosemide and hydrochlorothiazide, hyperlipidemia; on rosuvastatin, hypothyroidism; on levothyroxine, overweight; BMI of 27.2 this admission, DM-2; of unknown control on glimepiride, insulin detemir 28 units daily plus recently discontinued semaglutide, recently diagnosed atrial fibrillation; on apixaban, neuropathy; on gabapentin twice daily, history of COVID- 19, PVD; with history of non-pressure chronic ulcer of the Left foot; s/p multiple toe amputations, chronic venous insufficiency, OA and chronic watery diarrhea who presents to [facility] ER complaining of having an abnormal outpatient lab test 2 days ago at [facility] that revealed dangerously low sodium in addition to 2 falls in the past 24 hours so she decided to come in for further evaluation and treatment. Ms. Gregory reports her symptoms began approximately 2 weeks prior to admission when she developed watery diarrhea that was attributed to an adverse drug reaction to semaglutide which was stopped at that time. Unfortunately, her diarrhea has continued causing her to progressively worsen and then about 2 days ago she developed generalized weakness and malaise with 2 subsequent falls at home in the last 24 hours with her first fall precipitated by her cat getting caught between her legs causing her to trip and fall hitting her left forehead and sustaining a skin tear on her Right dorsal hand with no other significant injuries, headache or LOC. She does not remember the number associated with her dangerously low sodium. She denies recent antibiotics, blood in stools, nausea or vomiting but she does admit to minor vision changes that made it hard for her to read close up prior to the fall. There is no report of related fever, chills, runny nose, sore throat, ear pain, chest pain, palpitations, heart racing, lower extremity edema, shortness of breath, cough, dysuria or rash. In the ER she was noted to have Hyponatremia of 125 mmol/L present on admission suspected to be due to Adverse Drug Reaction to hydrochlorothiazide complicated by UA positive for Acute Cystitis; without hematuria with persistent Watery Diarrhea culminating in Generalized Weakness and Ambulatory Dysfunction with Frequent Falls with a brain CT without contrast that revealed no acute intracranial changes. She was then admitted to the general medical floor for ongoing care for stay that is expected to extend beyond 2 midnights. 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 Diabetic foot ulcer associated with type 2 diabetes mellitus Type 2 diabetes mellitus Home Medications ???Medication ???Instructions ???Recorded ???Last Taken ???Type alprazolam 0.5 mg tablet 0.5 mg PO TID PRN PRN Anxiety 07/0103/02/25 History clopidogrel 75 mg tablet 75 mg PO DAILY anti platelet 07/1603/01/25 History ergocalciferol (vitamin D2) 1,250 1.25 unit PO QWEEK PRN supplement 07/16/20 02/27/25 History mcg (50,000 unit) capsule furosemide 40 mg tablet 40 mg PO DAILY fluid 07/16/2010/25 History gabapentin 600 mg tablet 600 mg PO BIDCM neuropathy 0 03/01/25 History hydrocodone-acetamino phen 5-325mg 1 ea PO BID PRN PRN Not Specified 07/16/20 03/01/25 History 5mg-325mg levothyroxine 50 mcg tablet 50 mcg PO DAILY thyroid 07/16/20 0 03/01/25 History potassium chloride 20 mEq 20 meq PO DAILYCM #30 tabs 0 03/01/25 Rx tablet,extended release(part/cryst) hydrochlorothiazide 25 mg tablet 25 mg PO DAILY BP 10/31/21 5 History metoclopramide HCl 10 mg tablet 10 mg PO Q6H PRN nausea and Unknown Rx (Reglan) vomiting #14 tabs amlodipine 5 mg tablet 5 mg PO DAILY #30 tabs 08/22/23 Rx ramipril 10 mg capsule 20 mg PO DAILY BP 03/02/25 5 History rosuvastatin 10 mg tablet 10 mg PO DAILY cholesterol 5 03/01/25 History Allergy/AdvReac Type Severity Reaction Status Date / Time hydrochlorothiazide AdvReac Hyponatremi Verified 03/03/25 00:49 a Surgical History ... Normal [facility] Hematocrit Auto (Bld) [Volum e fraction]Ordered By: Justyn Rojas on 03-02-2025 Hematocrit (Bld) [Volume fraction] 38.6 % 37-47 [facility] Hemoglobin measurementOrdere d By: Justyn Rojas on 03-02-2025 Hemoglobin (Bld) [Mass/Vol] 13.5 g/dL 12.0-15.0 [facility] Hyaline casts LM.LPF (Urine sed) [#/Area]Ordered By: Justyn Rojas on 03-02-2025 Hyaline casts (Urine sed) [#/Area] 5 /[LPF] 0-5 [facility] Immature granulocytes/100 WB C Auto (Bld)Ordered By: Justyn Rojas on 03-02-2025 Immature granulocytes/100 WBC (Bld) 0.200 % 0.0-0.9 [facility] Comment on above: IG% - Immature Granu locytes (promyelocytes, myelocytes and metamyelocytes) > 1% indicates that a LEFT SHIFT is Present. Ketones Test strip Ql (U)Ord ered By: Justyn Rojas on 03-02-2025 Ketones Ql (U) Negative Negative [facility] Laboratory - Chemistry and C hemistry - challengeOrdered By: Justyn Rojas on 03-02-2025 AST [Catalytic activity/Vol] 30 U/L <32 [facility] MCV (mean corpuscular volume ) determinationOrdered By: Justyn Rojas on 03-02-2025 MCV (RBC) [Entitic vol] 89.4 fL 81-99 [facility] Magnesiumon 03-02-2025 Magnesium [Mass/Vol] 2.2 mg/dL Normal 1.5-2.2 [facility] Comment on above: Performed By: #### L 501.3620, L501.7300, L501.5200, L501.9520 #### [facility] [address] [place], [address] Magnesium measurement (mass/ volume)Ordered By: Eder Cifuentes on 03-02-2025 Magnesium (Unsp spec) [Mass/Vol] 2.2 mg/dL 1.5-2.2 [facility] Mean corpuscular hemoglobin (MCH) determinationOrdered By: Justyn Rojas on 03-02-2025 MCH (RBC) [Entitic mass] 31.3 pg 27.0-32.0 [facility] Mean corpuscular hemoglobin concentration (MCHC) determinationOrdered By: Justyn Rojas on 03-02-2025 MCHC (RBC) [Mass/Vol] 35.0 g/dL 32-36 [facility] Mean platelet volume determi nationOrdered By: Justyn Rojas on 03-02-2025 Platelet mean volume (Bld) [Entitic vol] 12.0 fL 6.2-12.0 [facility] Microscopic analysis of urin e for red blood cells (RBC)Ordered By: Justyn Rojas on 03-02-2025 Microscopic analysis of urine for red blood cells (RBC) 0 SEEN /hpf 0-5 [facility] Monocyte percentageOrdered B y: Justyn Rojas on 03-02-2025 Monocytes/100 WBC (Bld) 8.0 % 0-10 [facility] Mucus LM Ql (Urine sed)Order ed By: Justyn Rojas on 03-02-2025 Mucus Ql (Urine sed) 0 SEEN /hpf [facility] Neutrophil percentageOrdered By: Justyn Rojas on 03-02-2025 Neutrophils/100 WBC (Bld) 77.0 % High 47-70 [facility] Nitrite Test strip Ql (U)Ord ered By: Justyn Rojas on 03-02-2025 Nitrite Ql (U) Negative Negative [facility] Nucleated red blood cell per centageOrdered By: Justyn Rojas on 03-02-2025 Nucleated RBC/100 WBC (Bld) [Ratio] 0 % 0-5 [facility] Osmolality urOrdered By: Jn Cifuentes on 03-02-2025 Osmolality (U) [Osmolality] 324 mOsm/KG >50 [facility] Comment on above: Normal Urine Referen ce Ranges Random: 50 - 1200 mOsm/kg H20 depending on fluid intake Random: >850 mOsm/kg after 12 hour fluid restriction 24 hour: ~300 - 900 mOsm/kg H2O Osmolality, Serumon 03-02-20 25 OSMOLALITY,SER 273 mOsm/KG Low 280-301 [facility] Comment on above: Performed By: #### L 501.3620, L501.7300, L501.5200, L501.9520 #### [facility] [address] [place], [place] [address] [place], [address] Osmolality, Urineon 03-02-20 25 OSMOLALITY,UR 324 mOsm/KG Normal [facility] Comment on above: Result Comment: Normal Urine Reference Ranges Random: 50 - 1200 mOsm/kg H20 depending on fluid intake Random: >850 mOsm/kg after 12 hour fluid restriction 24 hour: 300 - 900 mOsm/kg H2O Performed By: #### L 501.7400 #### [facility] [address] [place], [address] Platelet countOrdered By: Patience Rojas on 03-02-2025 Platelets (Bld) [#/Vol] 183 10*3/uL 150-450 [facility] Potassium measurement (mass/ volume)Ordered By: Justyn Rojas on 03-02-2025 Potassium (Unsp spec) [Mass/Vol] 5.1 mmol/L 3.3-5.1 [facility] Protein Test strip Ql (U)Ord ered By: Justyn Rojas on 03-02-2025 Protein Ql (U) 15 mg/dl High Negative [facility] RBC Auto (Bld) [#/Vol]Ordere d By: Justyn Rojas on 03-02-2025 RBC (Bld) [#/Vol] 4.32 10*6/uL 4.2-5.4 [facility] Serum creatinine measurement (mass/volume)Ordered By: Justyn Rojas on 03-02-2025 Creatinine [Mass/Vol] 0.83 mg/dL 0.70-1.20 [facility] Serum globulin measurementOr dered By: Justyn Rojas on 03-02-2025 Globulin (S) [Mass/Vol] 2.5 g/dL 2.2-4.2 [facility] Serum glucose measurement (m ass/volume)Ordered By: Justyn Rojas on 03-02-2025 Glucose [Mass/Vol] 196 mg/dL High 70-99 [facility] Serum or plasma alanine graham otransferase (ALT) measurementOrdered By: Justyn Rojas on 03-02-2025 ALT [Catalytic activity/Vol] 15 U/L <35 [facility] Serum or plasma albumin pavel urement (mass/volume)Ordered By: Justyn Rojas on 03-02-2025 Albumin [Mass/Vol] 3.7 g/dL 3.4-4.8 [facility] Serum or plasma albumin/glob ulin mass ratioOrdered By: Justyn Rojas on 03-02-2025 Albumin/Globulin [Mass ratio] 1.5 {ratio} 0.9-2.4 [facility] Serum or plasma alkaline marilou sphatase measurementOrdered By: Justyn Rojas on 03-02-2025 ALP [Catalytic activity/Vol] 58 U/L 35-104 [facility] Serum or plasma calcium pavel urement (mass/volume)Ordered By: Justyn Rojas on 03-02-2025 Calcium [Mass/Vol] 8.9 mg/dL 7.6-11.0 [facility] Serum or plasma creatine kin ase activityOrdered By: Eder Cifuentes on 03-02-2025 CK [Catalytic activity/Vol] 574 U/L High 24-195 [facility] Serum or plasma urea nitroge n measurement (mass/volume)Ordered By: Justyn Rojas on 03-02-2025 Urea nitrogen [Mass/Vol] 14 mg/dL 4-19 [facility] Sodium levelOrdered By: Catarino Rojas on 03-02-2025 Sodium [Moles/Vol] 125 mmol/L Low 133-145 [facility] Squamous epithelial cells de tection in urine sediment by light microscopyOrdered By: Justyn Rojas on 03-02-2025 Epithelial cells.squamous LM Ql (Urine sed) 0 SEEN /hpf 5-10 [facility] TSH DL <= 0.005 mIU/L QnOrde red By: Eder Cifuentes on 03-02-2025 TSH Qn 1.390 uIU/mL 0.300-4.200 [facility] Thyroid Stim Hormone (TSH)on 03-02-2025 TSH 1.390 uIU/mL Normal 0.300-4.200 [facility] Comment on above: Performed By: #### L 501.7400 #### [facility] [place], [address] Total proteinOrdered By: Chata Rojas on 03-02-2025 Protein [Mass/Vol] 6.2 g/dL 5.9-8.4 [facility] Urinalysis, Completeon 03-02 BACTERIA 4+ /hpf Normal None Seen [facility] Comment on above: Order Comment: MARSHALL CTOR TO SPECIFY Performed By: #### L 400.0001 #### [facility] [address] [place], [address] CAST,HYALINE 5-10 SEEN Normal 0-5 [facility] Comment on above: Order Comment: MARSHALL CTOR TO SPECIFY Performed By: #### L 400.0001 #### [facility] [address] [place], [address] WBC >100 SEEN Normal 0-5 [facility] Comment on above: Order Comment: MARSHALL CTOR TO SPECIFY Performed By: #### L [id number] #### [facility] [address] [place], [address] EPI,SQUAMOUS 0 SEEN Normal 5-10 [facility] Comment on above: Order Comment: MARSHALL CTOR TO SPECIFY Performed By: #### L [id number] #### [facility] [address] [place], [address] Mucus Ql (Urine sed) 0 SEEN Normal [facility] Comment on above: Order Comment: MARSHALL CTOR TO SPECIFY Performed By: #### L [id number] #### [facility] [address] [place], [address] RBC 0 SEEN Normal 0-5 [facility] Comment on above: Order Comment: MARSHALL CTOR TO SPECIFY Performed By: #### L [id number] #### [facility] [address] [place], [address] Urine clarityOrdered By: Chata Rojas on 03-02-2025 Clarity (U) Cloudy Clear [facility] Urine color determinationOrd ered By: Justyn Rojas on 03-02-2025 Color (U) Straw Yellow [facility] Urine cultureOrdered By: Chata Rojas on 03-02-2025 Bacteria identified Cx Nom (U) Mixed Gram Pos & Gram Neg Org Abnormal [facility] Urine glucose detectionOrder ed By: Justyn Rojas on 03-02-2025 Glucose Ql (U) 100 mg/dl High Normal [facility] Urine leukocyte esterase det ection by dipstickOrdered By: Justyn Rojas on 03-02-2025 Leukocyte esterase Test strip Ql (U) 500 /ul High Negative [facility] Urine pHOrdered By: Justyn Rojas on 03-02-2025 pH (U) 5.0 [pH] 5.0 - 8.0 [facility] Urine sediment bacteria coun t by microscopy (number/high power field)Ordered By: Justyn Rojas on 03-02-2025 Bacteria LM.HPF (Urine sed) [#/Area] 4 /[HPF] None Seen [facility] Urine specific gravity measu rementOrdered By: Justyn Rojas on 03-02-2025 Specific gravity (U) [Rel density] 1.020 1.002-1.030 [facility] Urine urobilinogen measureme ntOrdered By: Justyn Rojas on 03-02-2025 Urobilinogen Ql (U) Normal mg/dl Normal [facility] White blood cell (WBC) count Ordered By: Justyn Rojas on 03-02-2025 WBC (Bld) [#/Vol] 5.8 10*3/uL 4.4-11.0 [facility] White blood cell countOrdere d By: Justyn Rojas on 03-02-2025 White blood cell count >100 SEEN /hpf 0-5 [facility] .GFRon 02-28-2025 Estimated Glomerular Filtration Rate 61 ml/min/1.73sqm Normal [facility] Comment on above: Result Comment: Stages [...] calculate the eGFR results. Performed By: #### A KRISSY, PBNP, GFR, BMP, CBC, ADIFF #### [address] [address] BMPon 02-28-2025 BUN/Creatinine Ratio 19 ratio Normal 7-27 [facility] Comment on above: Performed By: #### A KRISSY, PBNP, GFR, BMP, CBC, ADIFF #### [address] [address] Calcium [Mass/Vol] 8.8 mg/dL Normal 8.4-10.2 [facility] Comment on above: Performed By: #### A KRISSY, PBNP, GFR, BMP, CBC, ADIFF #### [address] [address] Chloride [Moles/Vol] 93 mmol/L Low 98-107 [facility] Comment on above: Performed By: #### A KRISSY, PBNP, GFR, BMP, CBC, ADIFF #### [address] [address] CO2 [Moles/Vol] 28 mmol/L Normal 23-31 [facility] Comment on above: Performed By: #### A KRISSY, PBNP, GFR, BMP, CBC, ADIFF #### [address] [address] Creatinine [Mass/Vol] 0.96 mg/dL High 0.51-0.95 [facility] Comment on above: Performed By: #### A KRISSY, PBNP, GFR, BMP, CBC, ADIFF #### [address] [address] Electrolyte Balance 6.0 mEq/L Normal 4.0-15.[address] [facility] Comment on above: Performed By: #### A KRISSY, PBNP, GFR, BMP, CBC, ADIFF #### [address] [address] Glucose [Mass/Vol] 103 mg/dL Normal 83-110 [facility] Comment on above: Performed By: #### A KRISSY, PBNP, GFR, BMP, CBC, ADIFF #### [address] [address] Potassium [Moles/Vol] 5.1 mmol/L Normal 3.5-5.1 [facility] Comment on above: Performed By: #### A KRISSY, PBNP, GFR, BMP, CBC, ADIFF #### [address] [address] Sodium [Moles/Vol] 127 mmol/L Low 136-145 [facility] Comment on above: Performed By: #### A KRISSY, PBNP, GFR, BMP, CBC, ADIFF #### [address] [address] Urea nitrogen [Mass/Vol] 18 mg/dL Normal 7-18 [facility] Comment on above: Performed By: #### A KRISSY, PBNP, GFR, BMP, CBC, ADIFF #### [address] [address] LABORATORYOrdered By: SYSTEM SYSTEM on 02-28-2025 Calcium [...] 15-29 CKD 5 Kidney failure <15 Note: ( live 10/04/2024) the eGFR calculation was updated to the [...] Estimated Glomerular Filtration Rate 70 ml/min/1.73sqm Normal [facility] Comment on above: Result Comment: Stages [...] 15-29 CKD 5 Kidney failure <15 Note: ( live 10/04/2024) the eGFR calculation was updated to the 2020 CKD-EPI creatinine equation without a race factor to calculate the eGFR results. Performed By: #### A KRISSY, PBNP, GFR, BMP, CBC, ADIFF #### [address] [place], [place] [address] BMPon 02-23-2025 BUN/Creatinine Ratio 15 ratio Normal 7-27 [facility] Comment on above: Performed By: #### A KRISSY, PBNP, GFR, BMP, CBC, ADIFF #### [address] [place], [place] [address] Calcium [Mass/Vol] 9.2 mg/dL Normal 8.4-10.2 [facility] Comment on above: Performed By: #### A KRISSY, PBNP, GFR, BMP, CBC, ADIFF #### [address] [address] Chloride [Moles/Vol] 92 mmol/L Low 98-107 [facility] Comment on above: Performed By: #### A KRISSY, PBNP, GFR, BMP, CBC, ADIFF #### [address] [address] CO2 [Moles/Vol] 33 mmol/L High 23-31 [facility] Comment on above: Performed By: #### A KRISSY, PBNP, GFR, BMP, CBC, ADIFF #### [id number] Creatinine [Mass/Vol] 0.86 mg/dL Normal 0.51-0.95 [facility] Comment on above: Performed By: #### A KRISSY, PBNP, GFR, BMP, CBC, ADIFF #### [place] [address] Electrolyte Balance 6.0 mEq/L Normal 4.0-15.[address] [facility] Comment on above: Performed By: #### A KRISSY, PBNP, GFR, BMP, CBC, ADIFF #### [place] [address] Glucose [Mass/Vol] 152 mg/dL High 83-110 [facility] Comment on above: Performed By: #### A KRISSY, PBNP, GFR, BMP, CBC, ADIFF #### [place] [address] Potassium [Moles/Vol] 3.6 mmol/L Normal 3.5-5.1 [facility] Comment on above: Performed By: #### A KRISSY, PBNP, GFR, BMP, CBC, ADIFF #### [place] [address] Sodium [Moles/Vol] 131 mmol/L Low 136-145 [facility] Comment on above: Performed By: #### A KRISSY, PBNP, GFR, BMP, CBC, ADIFF #### [address] [address] Urea nitrogen [Mass/Vol] 13 mg/dL Normal 7-18 [facility] Comment on above: Performed By: #### A KRISSY, PBNP, GFR, BMP, CBC, ADIFF #### [address] [place], [place] [address] LABORATORYOrdered By: SYSTEM SYSTEM on 02-23-2025 Calcium [...] Basophil, Absolute 0.0 10 3/mcL Normal 0.0-0.3 [facility] Comment on above: Performed By: #### A KRISSY, PBNP, GFR, BMP, CBC, ADIFF #### [address] [address] Basophils/100 WBC (Bld) 0.6 % Normal 0.0-2.5 [facility] Comment on above: Performed By: #### A KRISSY, PBNP, GFR, BMP, CBC, ADIFF #### [address] [address] Eosinophil, Absolute 0.1 10 3/mcL Normal 0.0-0.7 [facility] Comment on above: Performed By: #### A KRISSY, PBNP, GFR, BMP, CBC, ADIFF #### [address] [address] Eosinophils/100 WBC (Bld) 1.0 % Normal 0.0-6.0 [facility] Comment on above: Performed By: #### A KRISSY, PBNP, GFR, BMP, CBC, ADIFF #### [address] [address] Lymphocyte, Absolute 1.1 10 3/mcL Normal 0.9-4.3 [facility] Comment on above: Performed By: #### A KRISSY, PBNP, GFR, BMP, CBC, ADIFF #### [address] [address] Lymphocytes/100 WBC (Bld) 22.2 % Normal 20.0-40.0 [facility] Comment on above: Performed By: #### A KRISSY, PBNP, GFR, BMP, CBC, ADIFF #### [address] [address] Monocyte, Absolute 0.5 10 3/mcL Normal 0.1-1.4 [facility] Comment on above: Performed By: #### A KRISSY, PBNP, GFR, BMP, CBC, ADIFF #### [address] [address] Monocytes/100 WBC (Bld) 8.9 % Normal 2.0-13.0 [facility] Comment on above: Performed By: #### A KRISSY, PBNP, GFR, BMP, CBC, ADIFF #### [address] [address] Neutrophils/100 WBC (Bld) 67.3 % Normal 50.0-75.0 [facility] Comment on above: Performed By: #### A KRISSY, PBNP, GFR, BMP, CBC, ADIFF #### [address] [address] .GFRon 02-21-2025 Estimated Glomerular Filtration Rate 84 ml/min/1.73sqm Normal [facility] Comment on above: Result Comment: Stages [...] calculate the eGFR results. Performed By: #### A KRISSY, PBNP, GFR, BMP, CBC, ADIFF #### [address] [address] .NEUABSon 02-21-2025 Neutrophil, Absolute 3.4 10 3/mcL Normal 2.3-8.1 [facility] Comment on above: Performed By: #### A KRISSY, PBNP, GFR, BMP, CBC, ADIFF #### [address] [place], [place] [address] BMPon 02-21-2025 BUN/Creatinine Ratio 15 ratio Normal 7-27 [facility] Comment on above: Performed By: #### A KRISSY, PBNP, GFR, BMP, CBC, ADIFF #### [address] [address] Calcium [Mass/Vol] 8.9 mg/dL Normal 8.4-10.2 [facility] Comment on above: Performed By: #### A KRISSY, PBNP, GFR, BMP, CBC, ADIFF #### [address] [address] Chloride [Moles/Vol] 92 mmol/L Low 98-107 [facility] Comment on above: Performed By: #### A KRISSY, PBNP, GFR, BMP, CBC, ADIFF #### [address] [address] CO2 [Moles/Vol] 35 mmol/L High 23-31 [facility] Comment on above: Performed By: #### A KRISSY, PBNP, GFR, BMP, CBC, ADIFF #### [address] [address] Creatinine [Mass/Vol] 0.74 mg/dL Normal 0.51-0.95 [facility] Comment on above: Performed By: #### A KRISSY, PBNP, GFR, BMP, CBC, ADIFF #### [address] [address] Electrolyte Balance 4.0 mEq/L Normal 4.0-15.[address] [facility] Comment on above: Performed By: #### A KRISSY, PBNP, GFR, BMP, CBC, ADIFF #### [address] [address] Glucose [Mass/Vol] 157 mg/dL High 83-110 [facility] Comment on above: Performed By: #### A KRISSY, PBNP, GFR, BMP, CBC, ADIFF #### [address] [address] Potassium [Moles/Vol] 3.0 mmol/L Low 3.5-5.1 [facility] Comment on above: Performed By: #### A KRISSY, PBNP, GFR, BMP, CBC, ADIFF #### [address] [address] Sodium [Moles/Vol] 131 mmol/L Low 136-145 [facility] Comment on above: Performed By: #### A KRISSY, PBNP, GFR, BMP, CBC, ADIFF #### [address] [address] Urea nitrogen [Mass/Vol] 11 mg/dL Normal 7-18 [facility] Comment on above: Performed By: #### A KRISSY, PBNP, GFR, BMP, CBC, ADIFF #### [address] [address] CBCon 02-21-2025 Erythrocyte distribution width (RBC) [Ratio] 13.0 % Normal 11.5-15.5 [facility] Comment on above: Performed By: #### A KRISSY, PBNP, GFR, BMP, CBC, ADIFF #### [address] [address] Hematocrit (Bld) [Volume fraction] 42.0 % Normal 34.0-46.0 [facility] Comment on above: Performed By: #### A KRISSY, PBNP, GFR, BMP, CBC, ADIFF #### [address] [address] Hgb 14.6 G/dL Normal 12.0-16.0 [facility] Comment on above: Performed By: #### A KRISSY, PBNP, GFR, BMP, CBC, ADIFF #### [address] [address] MCH (RBC) [Entitic mass] 31.4 pg Normal 27.0-33.0 [facility] Comment on above: Performed By: #### A KRISSY, PBNP, GFR, BMP, CBC, ADIFF #### [address] [address] MCHC 34.8 G/dL Normal 32.0-36.0 [facility] Comment on above: Performed By: #### A KRISSY, PBNP, GFR, BMP, CBC, ADIFF #### [id number] MCV (RBC) [Entitic vol] 90.1 fL Normal 80.0-99.0 [facility] Comment on above: Performed By: #### A KRISSY, PBNP, GFR, BMP, CBC, ADIFF #### [address] [address] Platelet 119 10 3/mcL Low 150-450 [facility] Comment on above: Performed By: #### A KRISSY, PBNP, GFR, BMP, CBC, ADIFF #### [address] [address] Platelet mean volume (Bld) [Entitic vol] 9.3 fL Normal 6.6-10.5 [facility] Comment on above: Performed By: #### A KRISSY, PBNP, GFR, BMP, CBC, ADIFF #### [address] [address] RBC 4.66 10 6/mcL Normal 4.10-5.30 [facility] Comment on above: Performed By: #### A KRISSY, PBNP, GFR, BMP, CBC, ADIFF #### [address] [address] WBC 5.0 10 3/mcL Normal 4.5-10.8 [facility] Comment on above: Performed By: #### A KRISSY, PBNP, GFR, BMP, CBC, ADIFF #### [address] [address] LABORATORYOrdered By: SYSTEM SYSTEM on 02-21-2025 Basophils [...] B (Bld) [Mass/Vol] 244 pg/mL Normal 0-450 [facility] Comment on above: Result Comment: NT-p roBNP results of less than 300 pg/mL effectively rules out acute congestive heart failure with 99% negative predictive value. Performed By: #### A KRISSY, PBNP, GFR, BMP, CBC, ADIFF #### [address] [place], [place] [address] .GFRon 01-09-2025 Estimated Glomerular Filtration Rate 80 ml/min/1.73sqm Normal [facility] Comment on above: Result Comment: Stages [...] calculate the eGFR results. Performed By: #### C MP, VIDH, GFR, FT3, A1C, TSH, LIPID #### [address] [address] A1Con 01-09-2025 Glucose [Mass/Vol] 140 mg/dL Normal [facility] Comment on above: Result Comment: [place] mated Average Glucose calculated by equation ((28.7xA1C)-46.7) Estimated average glucose (eAG) is a calculated value from Hemoglobin A1C and is risk control field representative of the average blood glucose level in the last 2-3 month period. Normal range: less than 114 mg/dL Performed By: #### C MP, VIDH, GFR, FT3, A1C, TSH, LIPID #### [address] [address] HbA1c (Bld) [Mass fraction] 6.5 % High 4.3-6.4 [facility] Comment on above: Performed By: #### C MP, VIDH, GFR, FT3, A1C, TSH, LIPID #### [address] [address] CMPon 01-09-2025 ALT [Catalytic activity/Vol] 12 U/L Low 14-59 [facility] Comment on above: Performed By: #### C MP, VIDH, GFR, FT3, A1C, TSH, LIPID #### [address] [address] Albumin Level 3.4 G/dL Normal 3.4-4.8 [facility] Comment on above: Performed By: #### C MP, VIDH, GFR, FT3, A1C, TSH, LIPID #### [address] [address] Albumin/Globulin [Mass ratio] 1.2 {ratio} Normal 1.1-2.5 [facility] Comment on above: Performed By: #### C MP, VIDH, GFR, FT3, A1C, TSH, LIPID #### [address] [address] ALP [Catalytic activity/Vol] 68 U/L Normal 40-135 [facility] Comment on above: Performed By: #### C MP, VIDH, GFR, FT3, A1C, TSH, LIPID #### [address] [address] AST [Catalytic activity/Vol] 19 U/L Normal 10-40 [facility] Comment on above: Performed By: #### C MP, VIDH, GFR, FT3, A1C, TSH, LIPID #### [address] [address] Bili Total 0.5 mg/dL Normal 0.2-1.0 [facility] Comment on above: Result Comment: Use of this assay is not recommended for patients undergoing treatment with eltrombopag due to the potential for falsely elevated results. Performed By: #### C MP, VIDH, GFR, FT3, A1C, TSH, LIPID #### [address] [address] BUN/Creatinine Ratio 12 ratio Normal 7-27 [facility] Comment on above: Performed By: #### C MP, VIDH, GFR, FT3, A1C, TSH, LIPID #### [address] [address] Calcium [Mass/Vol] 8.9 mg/dL Normal 8.4-10.2 [facility] Comment on above: Performed By: #### C MP, VIDH, GFR, FT3, A1C, TSH, LIPID #### [address] [address] Chloride [Moles/Vol] 105 mmol/L Normal 98-107 [facility] Comment on above: Performed By: #### C MP, VIDH, GFR, FT3, A1C, TSH, LIPID #### [place] [address] CO2 [Moles/Vol] 30 mmol/L Normal 23-31 [facility] Comment on above: Performed By: #### C MP, VIDH, GFR, FT3, A1C, TSH, LIPID #### [place] [address] Creatinine [Mass/Vol] 0.77 mg/dL Normal 0.51-0.95 [facility] Comment on above: Performed By: #### C MP, VIDH, GFR, FT3, A1C, TSH, LIPID #### [place] [address] Electrolyte Balance 7.0 mEq/L Normal 4.0-15.[address] [facility] Comment on above: Performed By: #### C MP, VIDH, GFR, FT3, A1C, TSH, LIPID #### [place] [address] Globulin 2.9 G/dL Normal 2.7-4.4 [facility] Comment on above: Performed By: #### C MP, VIDH, GFR, FT3, A1C, TSH, LIPID #### [place] [address] Glucose [Mass/Vol] 122 mg/dL High 83-110 [facility] Comment on above: Performed By: #### C MP, VIDH, GFR, FT3, A1C, TSH, LIPID #### [place] [address] Potassium [Moles/Vol] 3.2 mmol/L Low 3.5-5.1 [facility] Comment on above: Performed By: #### C MP, VIDH, GFR, FT3, A1C, TSH, LIPID #### [place] [address] Sodium [Moles/Vol] 142 mmol/L Normal 136-145 [facility] Comment on above: Performed By: #### C MP, VIDH, GFR, FT3, A1C, TSH, LIPID #### [address] [address] Total Protein 6.3 G/dL Low 6.4-8.2 [facility] Comment on above: Performed By: #### C MP, VIDH, GFR, FT3, A1C, TSH, LIPID #### [address] [place], [place] [address] Urea nitrogen [Mass/Vol] 9 mg/dL Normal 7-18 [facility] Comment on above: Performed By: #### C MP, VIDH, GFR, FT3, A1C, TSH, LIPID #### [address] [place], [place] [address] FT3on 01-09-2025 Free T3 [Mass/Vol] 2.25 pg/mL Low 2.30-4.00 [facility] Comment on above: Performed By: #### A KRISSY, PBNP, GFR, BMP, CBC, ADIFF #### [address] [address] LABORATORYOrdered By: Neida Sarabia on 01-09-2025 Albumin [...] calculated value from Hemoglobin A1C and is risk control field representative of the average blood glucose level [...] 01-09-2025 Cholesterol [Mass/Vol] 137 mg/dL Normal 0-200 [facility] Comment on above: Result Comment: Chol esterol Reference Interval: Less than 200 Desirable 200-239 Borderline high risk 240 and above High risk Performed By: #### A KRISSY, PBNP, GFR, BMP, CBC, ADIFF #### [place] [address] [place], [place] [address] Cholesterol in HDL [Mass/Vol] 48 mg/dL Normal 40-60 [facility] Comment on above: Performed By: #### A KRISSY, PBNP, GFR, BMP, CBC, ADIFF #### [address] [address] Cholesterol in LDL [Mass/Vol] 69 mg/dL Normal 0-130 [facility] Comment on above: Performed By: #### A KRISSY, PBNP, GFR, BMP, CBC, ADIFF #### [address] [place], [place] [address] Triglyceride [Mass/Vol] 100 mg/dL Normal 0-150 [facility] Comment on above: Result Comment: Trig lyceride Reference Interval: Less than 150 Normal 150-199 Borderline high risk 200-499 High risk 500 or higher Very high risk Performed By: #### A KRISSY, PBNP, GFR, BMP, CBC, ADIFF #### [address] [address] MALBRon 01-09-2025 U Creatinine 48.2 mg/dL Normal 29.0-226.0 [facility] Comment on above: Performed By: #### A KRISSY, PBNP, GFR, BMP, CBC, ADIFF #### [address] [address] U Microalb 7.4 mg/L Normal [facility] Comment on above: Performed By: #### A KRISSY, PBNP, GFR, BMP, CBC, ADIFF #### [address] [address] U Ratio Alb/Cre 15 mg/G Normal 0-30 [facility] Comment on above: Performed By: #### A KRISSY, PBNP, GFR, BMP, CBC, ADIFF #### [address] [address] TSHon 01-09-2025 TSH Qn 2.48 m[IU]/L Normal 0.36-3.74 [facility] Comment on above: Performed By: #### C MP, VIDH, GFR, FT3, A1C, TSH, LIPID #### [address] [place], [place] [address] VIDHon 01-09-2025 Vit. D 25-Hydroxy 31.1 ng/mL Normal [facility] Comment on above: Result Comment: Inte rpretive Values Based on Total 25(OH) Vitamin D: Deficient <20 ng/mL Insufficient 20 - <30 ng/mL Sufficient 30-100 ng/mL Performed By: #### A KRISSY, PBNP, GFR, BMP, CBC, ADIFF #### [address] [place], [place] [address] XR SPINE LUMBAR W/OBLIQUES 4 VIEWSon 10-14-2024 [...] Date: 10/14/2024 10:02:10 AM Ordering Provider: MATHIEU ROLAND Normal [facility] .Auto Diffon 10-12-2024 Basophil, Absolute 0.0 10 3/mcL Normal 0.0-0.2 [facility] Comment on above: Performed By: #### A KRISSY, PBNP, GFR, BMP, CBC, ADIFF #### [address] [place], [place] [address] Basophils/100 WBC (Bld) 1.2 % Normal 0.0-2.5 [facility] Comment on above: Performed By: #### A KRISSY, PBNP, GFR, BMP, CBC, ADIFF #### [address] [address] Eosinophil, Absolute 0.0 10 3/mcL Normal 0.0-0.7 [facility] Comment on above: Performed By: #### A KRISSY, PBNP, GFR, BMP, CBC, ADIFF #### [address] [address] Eosinophils/100 WBC (Bld) 1.2 % Normal 0.0-7.0 [facility] Comment on above: Performed By: #### A KRISSY, PBNP, GFR, BMP, CBC, ADIFF #### [address] [address] Lymphocyte, Absolute 1.3 10 3/mcL Normal 0.9-4.3 [facility] Comment on above: Performed By: #### A KRISSY, PBNP, GFR, BMP, CBC, ADIFF #### [address] [address] Lymphocytes/100 WBC (Bld) 32.3 % Normal 20.0-40.0 [facility] Comment on above: Performed By: #### A KRISSY, PBNP, GFR, BMP, CBC, ADIFF #### [address] [address] Monocyte, Absolute 0.4 10 3/mcL Normal 0.1-1.4 [facility] Comment on above: Performed By: #### A KRISSY, PBNP, GFR, BMP, CBC, ADIFF #### [address] [address] Monocytes/100 WBC (Bld) 9.2 % Normal 2.0-13.0 [facility] Comment on above: Performed By: #### A KRISSY, PBNP, GFR, BMP, CBC, ADIFF #### [address] [address] Neutrophils/100 WBC (Bld) 56.1 % Normal 50.0-75.0 [facility] Comment on above: Performed By: #### A KRISSY, PBNP, GFR, BMP, CBC, ADIFF #### [place] [address] .NEUABSon 10-12-2024 Neutrophil, Absolute 2.3 10 3/mcL Normal 2.3-8.1 [facility] Comment on above: Performed By: #### A KRISSY, PBNP, GFR, BMP, CBC, ADIFF #### [place] [address] CBCon 10-12-2024 Erythrocyte distribution width (RBC) [Ratio] 13.4 % Normal 11.5-15.5 [facility] Comment on above: Performed By: #### A KRISSY, PBNP, GFR, BMP, CBC, ADIFF #### [place] [address] Hematocrit (Bld) [Volume fraction] 43.4 % Normal 34.0-46.0 [facility] Comment on above: Performed By: #### A KRISSY, PBNP, GFR, BMP, CBC, ADIFF #### [place] [address] Hgb 14.6 G/dL Normal 12.0-16.0 [facility] Comment on above: Performed By: #### A KRISSY, PBNP, GFR, BMP, CBC, ADIFF #### [place] [address] MCH (RBC) [Entitic mass] 31.1 pg Normal 27.0-33.0 [facility] Comment on above: Performed By: #### A KRISSY, PBNP, GFR, BMP, CBC, ADIFF #### [place] [address] MCHC 33.7 G/dL Normal 32.0-36.0 [facility] Comment on above: Performed By: #### A KRISSY, PBNP, GFR, BMP, CBC, ADIFF #### [place] [address] MCV (RBC) [Entitic vol] 92.4 fL Normal 80.0-99.0 [facility] Comment on above: Performed By: #### A KRISSY, PBNP, GFR, BMP, CBC, ADIFF #### [address] [address] Platelet 127 10 3/mcL Low 150-450 [facility] Comment on above: Performed By: #### A RKISSY, PBNP, GFR, BMP, CBC, ADIFF #### [address] [address] Platelet mean volume (Bld) [Entitic vol] 9.4 fL Normal 6.6-10.5 [facility] Comment on above: Performed By: #### A KRISSY, PBNP, GFR, BMP, CBC, ADIFF #### [address] [address] RBC 4.70 10 6/mcL Normal 4.10-5.30 [facility] Comment on above: Performed By: #### A KRISSY, PBNP, GFR, BMP, CBC, ADIFF #### [address] [address] WBC 4.2 10 3/mcL Low 4.5-10.8 [facility] Comment on above: Performed By: #### A KRISSY, PBNP, GFR, BMP, CBC, ADIFF #### [address] [address] LABORATORYOrdered By: SYSTEM SYSTEM on 10-12-2024 Basophils [...] By: #### 9 1484 #### [facility] [address], [address] [place] [address] Damaged Freight Inspector: Duncan Mccormack MD Alphahydroxymidazolam Negative Normal <[address] [facility] Comment on above: Order Comment: FASTI NG: UNKNOWN Result Comment: See Note 1 Performed By: #### 9 1484 #### [facility] of [address], [address] [place] [address] Damaged Freight Inspector: Duncan Mccormack MD Alphahydroxytriazolam Negative Normal <[address] [facility] Comment on above: Order Comment: FASTI NG: UNKNOWN Result Comment: See Note 1 Performed By: #### 9 1484 #### [facility] of [address], [address] [place] [address] Damaged Freight Inspector: Duncan Mccormack MD Aminoclonazepam Negative Normal <25 [facility] Comment on above: Order Comment: FASTI NG: UNKNOWN Result Comment: See Note 1 Performed By: #### 9 1484 #### [facility] of [address], [address] [place] [address] Damaged Freight Inspector: Duncan Mccormack MD Amphetamines Negative Normal <500 [facility] Comment on above: Order Comment: FASTI NG: UNKNOWN Performed By: #### 9 1484 #### [facility] of [address], [address] [place] [address] Damaged Freight Inspector: Duncan Mccormack MD Barbiturates Negative Normal <300 [facility] Comment on above: Order Comment: FASTI NG: UNKNOWN Performed By: #### 9 1484 #### [facility] of [address], [address] [place] [address] Damaged Freight Inspector: Duncan Mccormack MD Benzodiazepines Positive Abnormal <100 [facility] Comment on above: Order Comment: FASTI NG: UNKNOWN Performed By: #### 9 1484 #### [facility] of [address], [address] [place] [address] Damaged Freight Inspector: Duncan Mccormack MD Buprenorphine Negative Normal <5 [facility] Comment on above: Order Comment: FASTI NG: UNKNOWN Performed By: #### 9 1484 #### [facility] of [address], [address] [place] [address] Damaged Freight Inspector: Duncan Mccormack MD Cocaine Metabolite Negative Normal <150 [facility] Comment on above: Order Comment: FASTI NG: UNKNOWN Performed By: #### 9 1484 #### [facility] of [address], [address] [place] [address] Damaged Freight Inspector: Duncan Mccormack MD Codeine Negative Normal <50 [facility] Comment on above: Order Comment: FASTI NG: UNKNOWN Result Comment: See Note 1 Performed By: #### 9 1484 #### [facility] [address], [address] [place] [address] Damaged Freight Inspector: Duncan Mccormack MD COMMENT Normal [facility] Comment on above: Order Comment: FASTI NG: UNKNOWN Result Comment: See Note 2 Note 1 This test was developed and its analytical performance characteristics have been determined by [facility]. It has not been cleared or approved [...] interpreting these drug results, please contact a [facility] Toxicology Specialist: [phone] ( ), M-F, 8am-6pm EST. Performed By: #### 9 1484 #### [facility] [address], [address] [place] [address] Damaged Freight Inspector: Duncan Mccormack MD Heroin Metabolite Negative Normal <10 [facility] Comment on above: Order Comment: FASTI NG: UNKNOWN Performed By: #### 9 1484 #### [facility] of [address], [address] [place] [address] Damaged Freight Inspector: Duncan Mccormack MD Hydrocodone 395 ng/mL High <50 [facility] Comment on above: Order Comment: FASTI NG: UNKNOWN Result Comment: See Note 1 Performed By: #### 9 1484 #### [facility] [address], [address] [place] [address] Damaged Freight Inspector: Duncan Mccormack MD Hydromorphone 69 ng/mL High <50 [facility] Comment on above: Order Comment: FASTI NG: UNKNOWN Result Comment: See Note 1 Performed By: #### 9 1484 #### [facility] of [address], [address] [place] [address] Damaged Freight Inspector: Duncan Mccormack MD Hydroxyethylflurazepam Negative Normal <50 [facility] Comment on above: Order Comment: FASTI NG: UNKNOWN Result Comment: See Note 1 Performed By: #### 9 1484 #### [facility] of [address], [address] [place] [address] Damaged Freight Inspector: Duncan Mccormack MD Lorazepam Negative Normal <50 [facility] Comment on above: Order Comment: FASTI NG: UNKNOWN Result Comment: See Note 1 Performed By: #### 9 1484 #### [facility] of [address], [address] [place] [address] Damaged Freight Inspector: Duncan Mccormack MD Marijuana Metabolite 20 Negative Normal <20 [facility] Comment on above: Order Comment: FASTI NG: UNKNOWN Performed By: #### 9 1484 #### [facility] of [address], [address] [place] [address] Damaged Freight Inspector: Duncan Mccormack MD Methadone Metabolite Negative Normal <100 [facility] Comment on above: Order Comment: FASTI NG: UNKNOWN Performed By: #### 9 1484 #### [facility] of [address], [address] [place] [address] Damaged Freight Inspector: Duncan Mccormack MD Morphine Negative Normal <50 [facility] Comment on above: Order Comment: FASTI NG: UNKNOWN Result Comment: See Note 1 Performed By: #### 9 1484 #### [facility] of [address], [address] [place] [address] Damaged Freight Inspector: Duncan Mccormack MD Nordiazepam Negative Normal <50 [facility] Comment on above: Order Comment: FASTI NG: UNKNOWN Result Comment: See Note 1 Performed By: #### 9 1484 #### [facility] of [address], [address] [place] [address] Damaged Freight Inspector: Duncan Mccormack MD Norhydrocodone 851 ng/mL High <50 [facility] Comment on above: Order Comment: FASTI NG: UNKNOWN Result Comment: See Note 1 Performed By: #### 9 1484 #### [facility] of [address] , [address] [place] [address] Damaged Freight Inspector: Duncan Mccormack MD Opiates Positive Abnormal <100 [facility] Comment on above: Order Comment: FASTI NG: UNKNOWN Performed By: #### 9 1484 #### [facility] of [address] , [address] [place] [address] Damaged Freight Inspector: Duncan Mccormack MD Oxazepam Negative Normal <50 [facility] Comment on above: Order Comment: FASTI NG: UNKNOWN Result Comment: See Note 1 Performed By: #### 9 1484 #### [facility] of [address], [address] [place] [address] Damaged Freight Inspector: Duncan Mccormack MD Oxycodone Negative Normal <100 [facility] Comment on above: Order Comment: FASTI NG: UNKNOWN Performed By: #### 9 1484 #### [facility] of [place] [address] Damaged Freight Inspector: Duncan Mccormack MD Phencyclidine Negative Normal <25 [facility] Comment on above: Order Comment: FASTI NG: UNKNOWN Performed By: #### 9 1484 #### [facility] of [address], [address] [place] [address] Damaged Freight Inspector: Duncan Mccormack MD Temazepam Negative Normal <50 [facility] Comment on above: Order Comment: FASTI NG: UNKNOWN Result Comment: See Note 1 Performed By: #### 9 1484 #### [facility] of [place] [address] Damaged Freight Inspector: Duncan Mccormack MD .GFRon 09-05-2024 GFR 72 ml/min/1.73sqm Normal [facility] Comment on above: Result Comment: GFR [...] 15 mL/min/1.73 square meters Performed By: #### A KRISSY, PBNP, GFR, BMP, CBC, ADIFF #### [place] [address] [place], [place] [address] GFR Non- 59 ml/min/1.73sqm Normal [facility] Comment on above: Result Comment: GFR [...] 15 mL/min/1.73 square meters Performed By: #### A KRISSY, PBNP, GFR, BMP, CBC, ADIFF #### [place] [address] [place], [place] [address] A1Con 09-05-2024 Glucose [Mass/Vol] 128 mg/dL Normal [facility] Comment on above: Result Comment: [place] mated Average Glucose calculated by equation ((28.7xA1C)-46.7) Estimated average glucose (eAG) is a calculated value from Hemoglobin A1C and is risk control field representative of the average blood glucose level in the last 2-3 month period. Normal range: less than 114 mg/dL Performed By: #### A KRISSY, PBNP, GFR, BMP, CBC, ADIFF #### [address] [address] HbA1c (Bld) [Mass fraction] 6.1 % Normal 4.3-6.4 [facility] Comment on above: Performed By: #### A KRISSY, PBNP, GFR, BMP, CBC, ADIFF #### [address] [address] CMPon 09-05-2024 Albumin Level 3.5 G/dL Normal 3.4-4.8 [facility] Comment on above: Performed By: #### A KRISSY, PBNP, GFR, BMP, CBC, ADIFF #### [address] [address] Albumin/Globulin [Mass ratio] 1.2 {ratio} Normal 1.1-2.5 [facility] Comment on above: Performed By: #### A KRISSY, PBNP, GFR, BMP, CBC, ADIFF #### [address] [address] ALP [Catalytic activity/Vol] 81 U/L Normal 40-135 [facility] Comment on above: Performed By: #### A KRISSY, PBNP, GFR, BMP, CBC, ADIFF #### [address] [address] ALT [Catalytic activity/Vol] 16 U/L Normal 14-59 [facility] Comment on above: Performed By: #### A KRISSY, PBNP, GFR, BMP, CBC, ADIFF #### [address] [address] AST [Catalytic activity/Vol] 18 U/L Normal 10-40 [facility] Comment on above: Performed By: #### A KRISSY, PBNP, GFR, BMP, CBC, ADIFF #### [address] [address] Bili Total 0.7 mg/dL Normal 0.2-1.0 [facility] Comment on above: Result Comment: Use of this assay is not recommended for patients undergoing treatment with eltrombopag due to the potential for falsely elevated results. Performed By: #### A KRISSY, PBNP, GFR, BMP, CBC, ADIFF #### [place] [address] BUN/Creatinine Ratio 12 ratio Normal 7-27 [facility] Comment on above: Performed By: #### A KRISSY, PBNP, GFR, BMP, CBC, ADIFF #### [address] [address] Calcium [Mass/Vol] 9.2 mg/dL Normal 8.4-10.2 [facility] Comment on above: Performed By: #### A KRISSY, PBNP, GFR, BMP, CBC, ADIFF #### [place] [address] Chloride [Moles/Vol] 105 mmol/L Normal 98-107 [facility] Comment on above: Performed By: #### A KRISSY, PBNP, GFR, BMP, CBC, ADIFF #### [place] [address] CO2 [Moles/Vol] 34 mmol/L High 23-31 [facility] Comment on above: Performed By: #### A KRISSY, PBNP, GFR, BMP, CBC, ADIFF #### [address] [address] Creatinine [Mass/Vol] 0.92 mg/dL Normal 0.55-1.02 [facility] Comment on above: Result Comment: Test ing performed on Siemens Dimension EXL analyzer using a modified kinetic Michael technique. Performed By: #### A KRISSY, PBNP, GFR, BMP, CBC, ADIFF #### [address] [address] Electrolyte Balance 6.0 mEq/L Normal 4.0-15.[address] [facility] Comment on above: Performed By: #### A KRISSY, PBNP, GFR, BMP, CBC, ADIFF #### [place] [address] Globulin 2.9 G/dL Normal [facility] Comment on above: Performed By: #### A KRISSY, PBNP, GFR, BMP, CBC, ADIFF #### [address] [address] Glucose [Mass/Vol] 118 mg/dL High 83-110 [facility] Comment on above: Performed By: #### A KRISSY, PBNP, GFR, BMP, CBC, ADIFF #### [address] [address] Potassium [Moles/Vol] 4.0 mmol/L Normal 3.5-5.1 [facility] Comment on above: Performed By: #### A KRISSY, PBNP, GFR, BMP, CBC, ADIFF #### [address] [address] Sodium [Moles/Vol] 145 mmol/L Normal 136-145 [facility] Comment on above: Performed By: #### A KRISSY, PBNP, GFR, BMP, CBC, ADIFF #### [address] [address] Total Protein 6.4 G/dL Normal 6.4-8.2 [facility] Comment on above: Performed By: #### A KRISSY, PBNP, GFR, BMP, CBC, ADIFF #### [address] [address] Urea nitrogen [Mass/Vol] 11 mg/dL Normal 7-18 [facility] Comment on above: Performed By: #### A KRISSY, PBNP, GFR, BMP, CBC, ADIFF #### [address] [address] FT3on 09-05-2024 Free T3 [Mass/Vol] 1.98 pg/mL Low 2.30-4.00 [facility] Comment on above: Performed By: #### A KRISSY, PBNP, GFR, BMP, CBC, ADIFF #### [address] [address] FT4on 09-05-2024 Free T4 [Mass/Vol] 1.13 ng/dL Normal 0.76-1.46 [facility] Comment on above: Performed By: #### A KRISSY, PBNP, GFR, BMP, CBC, ADIFF #### [place] [address] [place], [place] [address] LABORATORYOrdered By: Wisam Perez on 09-05-2024 Albumin [...] calculated value from Hemoglobin A1C and is risk control field representative of the average blood glucose level [...] ratio AO ADM SS LABORATORYOrdered By: Matthew Hodgson on 09-05-2024 Cholesterol [Mass/Vol] 174 mg/dL [...] 09-05-2024 Cholesterol [Mass/Vol] 174 mg/dL Normal 0-200 [facility] Comment on above: Result Comment: Chol esterol Reference Interval: Less than 200 Desirable 200-239 Borderline high risk 240 and above High risk Performed By: #### A KRISSY, PBNP, GFR, BMP, CBC, ADIFF #### [address] [address] Cholesterol in HDL [Mass/Vol] 43 mg/dL Normal 40-60 [facility] Comment on above: Performed By: #### A KRISSY, PBNP, GFR, BMP, CBC, ADIFF #### [address] [address] Cholesterol in LDL [Mass/Vol] 115 mg/dL Normal 0-130 [facility] Comment on above: Performed By: #### A KRISSY, PBNP, GFR, BMP, CBC, ADIFF #### [address] [address] Triglyceride [Mass/Vol] 80 mg/dL Normal 0-150 [facility] Comment on above: Result Comment: Trig lyceride Reference Interval: Less than 150 Normal 150-199 Borderline high risk 200-499 High risk 500 or higher Very high risk Performed By: #### A KRISSY, PBNP, GFR, BMP, CBC, ADIFF #### [address] [address] MALBRon 09-05-2024 U Creatinine 79.8 mg/dL Normal [facility] Comment on above: Performed By: #### A KRISSY, PBNP, GFR, BMP, CBC, ADIFF #### [address] [address] U Microalb 200 mcg/dL Normal [facility] Comment on above: Performed By: #### A KRISSY, PBNP, GFR, BMP, CBC, ADIFF #### [address] [address] U Ratio Alb/Cre 2 mcg/mg Normal 0-30 [facility] Comment on above: Performed By: #### A KRISSY, PBNP, GFR, BMP, CBC, ADIFF #### [address] [address] TSHon 09-05-2024 TSH Qn 1.76 m[IU]/L Normal 0.36-3.74 [facility] Comment on above: Performed By: #### A KRISSY, PBNP, GFR, BMP, CBC, ADIFF #### [address] [address] VIDHon 09-05-2024 Vit. D 25-Hydroxy 35.4 ng/mL Normal [facility] Comment on above: Result Comment: Inte rpretive Values Based on Total 25(OH) Vitamin D: Deficient <20 ng/mL Insufficient 20 - <30 ng/mL Sufficient 30-100 ng/mL Performed By: #### A KRISSY, PBNP, GFR, BMP, CBC, ADIFF #### [address] [address] [place] MAMMOGRAM SCREENING BILAT ERAL W/TOMOon 08-31-2024 [place] MAMMOGRAM SCREENING BILATERAL W/NATO ORIGINAL FROM: [address] [address] PROCEDURE FOR: RAGHAV GREGORY [address] [place] [id number] Home: PID#: [id number] Exam#: [id number] : 1950 Age: 74 TO: MATHIEU ROLAND DO [address] [place] [address] Fax: NO FAX EXAMINATION: SCREENING DIGITAL BILATERAL [...] addition to annual mammographic screening per the [employer]. BIRADS: BI-RADS: 2: Benign RECALL: 1 year screening RECALL TYPE: mammo LETTER SENT: Normal BI-RADS 1 and 2 Interpreted by: Eder Victoria MD Preliminary Report By: Eder Victoria MD Electronically signed By Eder Vcitoria MD Dictated Date: 08/31/2024 5:04:35 PM Prelim Date: 08/31/2024 5:06:44 PM Sign Date: 08/31/2024 5:06:44 PM Ordering Provider: MATHIEU ROLAND [employer] Tutor: STACI QUIROS RT(R)(CT) letter sent: Normal BI-RADS 1 and 2 Mammogram BI-RADS: 2 Benign Normal [facility] BD BONE DENSITY DEXA AXIAL S [facility] 08-30-2024 BD BONE DENSITY DEXA AXIAL [facility] ORIGINAL EXAMINATION: BONE DENSITOMETRY 08/30/2024 6:00 am TECHNIQUE: A bone density dual x-ray absorptiometry (DEXA) scan was performed of the spine and left hip on a Hologic system. COMPARISON: 06/02/2022 HISTORY: ORDERING SYSTEM PROVIDED [...] Date: 08/30/2024 11:29:37 AM Ordering Provider: MATHIEU Lacy [facility] CT HEAD OR BRAIN W/O CONTRAS Ton [...] Date: 08/29/2024 2:35:35 PM Ordering Provider: MATHIEU Lacy [facility] DRUG TOX MONITORING 4 W/CONF , URINEon 03-21-2024 Alphahydroxyalprazolam 298 ng/mL High <25 [facility] Comment on above: Order Comment: FASTI NG: UNKNOWN Result Comment: See Note 1 Performed By: #### 9 1516 #### [facility] [address] [place] [address], [address] [place] [id number] Damaged Freight Inspector: Duncan Mccormack MD Alphahydroxymidazolam Negative Normal <[address] [facility] Comment on above: Order Comment: FASTI NG: UNKNOWN Result Comment: See Note 1 Performed By: #### 9 1484 #### [facility] of [address], [address] [place] [address] Damaged Freight Inspector: Duncan Mccormack MD Alphahydroxytriazolam Negative Normal <[address] [facility] Comment on above: Order Comment: FASTI NG: UNKNOWN Result Comment: See Note 1 Performed By: #### 9 1484 #### [facility] of [address], [address] [place] [address] Damaged Freight Inspector: Duncan Mccormack MD Aminoclonazepam Negative Normal <25 [facility] Comment on above: Order Comment: FASTI NG: UNKNOWN Result Comment: See Note 1 Performed By: #### 9 1484 #### [facility] [address], [address] [place] [address] Damaged Freight Inspector: Duncan Mccormack MD Amphetamines Negative Normal <500 [facility] Comment on above: Order Comment: FASTI NG: UNKNOWN Performed By: #### 9 1484 #### [facility] [address], [address] [place] [address] Damaged Freight Inspector: Duncan Mccormack MD Barbiturates Negative Normal <300 [facility] Comment on above: Order Comment: FASTI NG: UNKNOWN Performed By: #### 9 1484 #### [facility] [place] [address] Damaged Freight Inspector: Duncan Mccormack MD Benzodiazepines Positive Abnormal <100 [facility] Comment on above: Order Comment: FASTI NG: UNKNOWN Performed By: #### 9 1484 #### [facility] [address], [address] [place] [address] Damaged Freight Inspector: Duncan Mccormack MD Buprenorphine Negative Normal <5 [facility] Comment on above: Order Comment: FASTI NG: UNKNOWN Performed By: #### 9 1484 #### [facility] of [place] [address] Damaged Freight Inspector: Duncan Mccormack MD Cocaine Metabolite Negative Normal <150 [facility] Comment on above: Order Comment: FASTI NG: UNKNOWN Performed By: #### 9 1484 #### [facility] [place] [address] Damaged Freight Inspector: Duncan Mccormack MD Codeine Negative Normal <50 [facility] Comment on above: Order Comment: FASTI NG: UNKNOWN Result Comment: See Note 1 Performed By: #### 9 1484 #### [facility] [place] [address] Damaged Freight Inspector: Duncan Mccormack MD COMMENT Normal [facility] Comment on above: Order Comment: FASTI NG: UNKNOWN Result Comment: See Note 2 Note 1 This test was developed and its analytical performance characteristics have been determined by [facility]. It has not been cleared or approved [...] interpreting these drug results, please contact a [facility] Toxicology Specialist: [phone] ( ), M-F, 8am-6pm EST. Performed By: #### 9 1484 #### [facility] [place] [address] Damaged Freight Inspector: Duncan Mccormack MD Heroin Metabolite Negative Normal <10 [facility] Comment on above: Order Comment: FASTI NG: UNKNOWN Performed By: #### 9 1484 #### [facility] [place] [address] Damaged Freight Inspector: Duncan Mccormack MD Hydrocodone 689 ng/mL High <50 [facility] Comment on above: Order Comment: FASTI NG: UNKNOWN Result Comment: See Note 1 Performed By: #### 9 1484 #### [facility] [place] [address] Damaged Freight Inspector: Duncan Mccormack MD Hydromorphone 187 ng/mL High <50 [facility] Comment on above: Order Comment: FASTI NG: UNKNOWN Result Comment: See Note 1 Performed By: #### 9 1484 #### [facility] of [address], [address] [place] [address] Damaged Freight Inspector: Duncan Mccormack MD Hydroxyethylflurazepam Negative Normal <50 [facility] Comment on above: Order Comment: FASTI NG: UNKNOWN Result Comment: See Note 1 Performed By: #### 9 1484 #### [facility] of [address], [address] [place] [address] Damaged Freight Inspector: Duncan Mccormack MD Lorazepam Negative Normal <50 [facility] Comment on above: Order Comment: FASTI NG: UNKNOWN Result Comment: See Note 1 Performed By: #### 9 1484 #### [facility] of [place] [address] Damaged Freight Inspector: Duncan Mccormack MD Marijuana Metabolite 20 Negative Normal <20 [facility] Comment on above: Order Comment: FASTI NG: UNKNOWN Performed By: #### 9 1484 #### [facility] of [place] [address] Damaged Freight Inspector: Duncan Mccormack MD Methadone Metabolite Negative Normal <100 [facility] Comment on above: Order Comment: FASTI NG: UNKNOWN Performed By: #### 9 1484 #### [facility] of [place] [address] Damaged Freight Inspector: Duncan Mccormack MD Morphine Negative Normal <50 [facility] Comment on above: Order Comment: FASTI NG: UNKNOWN Result Comment: See Note 1 Performed By: #### 9 1484 #### [facility] [place] [address] Damaged Freight Inspector: Duncan Mccormack MD Nordiazepam Negative Normal <50 [facility] Comment on above: Order Comment: FASTI NG: UNKNOWN Result Comment: See Note 1 Performed By: #### 9 1484 #### [facility] [place] [address] Damaged Freight Inspector: Duncan Mccormack MD Norhydrocodone 1360 ng/mL High <50 [facility] Comment on above: Order Comment: FASTI NG: UNKNOWN Result Comment: See Note 1 Performed By: #### 9 1484 #### [facility] of [address], [address] [place] [address] Damaged Freight Inspector: Duncan Mccormack MD Opiates Positive Abnormal <100 [facility] Comment on above: Order Comment: FASTI NG: UNKNOWN Performed By: #### 9 1484 #### [facility] of [address], [address] [place] [address] Damaged Freight Inspector: Duncan Mccormack MD Oxazepam Negative Normal <50 [facility] Comment on above: Order Comment: FASTI NG: UNKNOWN Result Comment: See Note 1 Performed By: #### 9 1484 #### [facility] [place] [address] Damaged Freight Inspector: Duncan Mccormack MD Oxycodone Negative Normal <100 [facility] Comment on above: Order Comment: FASTI NG: UNKNOWN Performed By: #### 9 1484 #### [facility] of [address], [address] [place] [address] Damaged Freight Inspector: Duncan Mccormack MD Phencyclidine Negative Normal <25 [facility] Comment on above: Order Comment: FASTI NG: UNKNOWN Performed By: #### 9 1484 #### [facility] of [address], [address] [place] [address] Damaged Freight Inspector: Duncan Mccormack MD Temazepam Negative Normal <50 [facility] Comment on above: Order Comment: FASTI NG: UNKNOWN Result Comment: See Note 1 Performed By: #### 9 1484 #### [facility] of [address], [address] [place] [address] Damaged Freight Inspector: Duncan Mccormack MD .GFRon 02-29-2024 GFR 93 ml/min/1.73sqm Normal [facility] ([place]) Comment on above: Result Comment: GFR Population [...] LIPID, VIDH, FT4, A1C, GFR, TSH #### [address] [address] GFR Non- 77 ml/min/1.73sqm Normal [facility] ([place]) Comment on above: Result Comment: GFR Population [...] LIPID, VIDH, FT4, A1C, GFR, TSH #### [address] [address] A1Con 02-29-2024 HbA1c (Bld) [Mass fraction] 6.6 % High 4.3-6.4 [facility] ([place]) Comment on above: Performed By: #### C MP, LIPID, VIDH, FT4, A1C, GFR, TSH #### [address] [address] CMPon 02-29-2024 Albumin Level 3.7 G/dL Normal 3.4-4.8 [facility] ([place]) Comment on above: Performed By: #### C MP, LIPID, VIDH, FT4, A1C, GFR, TSH #### [address] [address] Albumin/Globulin [Mass ratio] 1.3 {ratio} Normal 1.1-2.5 [facility] ([place]) Comment on above: Performed By: #### C MP, LIPID, VIDH, FT4, A1C, GFR, TSH #### [address] [address] ALP [Catalytic activity/Vol] 54 U/L Normal 40-135 [facility] ([place]) Comment on above: Performed By: #### C MP, LIPID, VIDH, FT4, A1C, GFR, TSH #### [address] [address] ALT [Catalytic activity/Vol] 29 U/L Normal 14-59 [facility] ([place] Comment on above: Performed By: #### C MP, LIPID, VIDH, FT4, A1C, GFR, TSH #### [address] [address] AST [Catalytic activity/Vol] 30 U/L Normal 10-40 [facility] ([place] Comment on above: Performed By: #### C MP, LIPID, VIDH, FT4, A1C, GFR, TSH #### [address] [address] Bili Total 0.6 mg/dL Normal 0.2-1.0 [facility] ([place]) Comment on above: Result Comment: Use of this assay is not recommended for patients undergoing treatment with eltrombopag due to the potential for falsely elevated results. Performed By: #### C MP, LIPID, VIDH, FT4, A1C, GFR, TSH #### [address] [address] BUN/Creatinine Ratio 16 ratio Normal 7-27 [facility] ([place]) Comment on above: Performed By: #### C MP, LIPID, VIDH, FT4, A1C, GFR, TSH #### [address] [address] Calcium [Mass/Vol] 9.2 mg/dL Normal 8.4-10.2 [facility] ([place]) Comment on above: Performed By: #### C MP, LIPID, VIDH, FT4, A1C, GFR, TSH #### [address] [address] Chloride [Moles/Vol] 95 mmol/L Low 98-107 [facility] ([place]) Comment on above: Performed By: #### C MP, LIPID, VIDH, FT4, A1C, GFR, TSH #### [address] [address] CO2 [Moles/Vol] 34 mmol/L High 23-31 [facility] ([place] Comment on above: Performed By: #### C MP, LIPID, VIDH, FT4, A1C, GFR, TSH #### [address] [address] Creatinine [Mass/Vol] 0.74 mg/dL Normal 0.55-1.02 [facility] ([place] Comment on above: Performed By: #### C MP, LIPID, VIDH, FT4, A1C, GFR, TSH #### [address] [address] Electrolyte Balance 5.0 mEq/L Normal 4.0-15.0 [facility] ([place]) Comment on above: Performed By: #### C MP, LIPID, VIDH, FT4, A1C, GFR, TSH #### [address] [address] Globulin 2.8 G/dL Normal [facility] ([place]) Comment on above: Performed By: #### C MP, LIPID, VIDH, FT4, A1C, GFR, TSH #### [address] [address] Glucose [Mass/Vol] 123 mg/dL High 83-110 [facility] ([place]) Comment on above: Performed By: #### C MP, LIPID, VIDH, FT4, A1C, GFR, TSH #### [address] [address] Potassium [Moles/Vol] 3.7 mmol/L Normal 3.5-5.1 [facility] Comment on above: Performed By: #### C MP, LIPID, VIDH, FT4, A1C, GFR, TSH #### [address] [address] Sodium [Moles/Vol] 134 mmol/L Low 136-145 [facility] ([place]) Comment on above: Performed By: #### C MP, LIPID, VIDH, FT4, A1C, GFR, TSH #### [address] [address] Total Protein 6.5 G/dL Normal 6.4-8.2 [facility] ([place]) Comment on above: Performed By: #### C MP, LIPID, VIDH, FT4, A1C, GFR, TSH #### [address] [address] Urea nitrogen [Mass/Vol] 12 mg/dL Normal 7-18 [facility] ([place]) Comment on above: Performed By: #### C MP, LIPID, VIDH, FT4, A1C, GFR, TSH #### [address] [address] FT3on 02-29-2024 Free T3 [Mass/Vol] 1.97 pg/mL Low 2.30-4.00 [facility] ([place]) Comment on above: Performed By: #### C MP, LIPID, VIDH, FT4, A1C, GFR, TSH #### [address] [address] FT4on 02-29-2024 Free T4 [Mass/Vol] 1.31 ng/dL Normal 0.76-1.46 [facility] ([place]) Comment on above: Performed By: #### C MP, LIPID, VIDH, FT4, A1C, GFR, TSH #### [address] [address] LABORATORYOrdered By: SYSTEM SYSTEM on 02-29-2024 25-hydroxyvitamin [...] 02-29-2024 Cholesterol [Mass/Vol] 121 mg/dL Normal 0-200 [facility] ([place]) Comment on above: Result Comment: Chol esterol Reference Interval: Less than 200 Desirable 200-239 Borderline high risk 240 and above High risk Performed By: #### C MP, LIPID, VIDH, FT4, A1C, GFR, TSH #### [address] [address] Cholesterol in HDL [Mass/Vol] 52 mg/dL Normal 40-60 [facility] ([place]) Comment on above: Performed By: #### C MP, LIPID, VIDH, FT4, A1C, GFR, TSH #### [address] [address] Cholesterol in LDL [Mass/Vol] 50 mg/dL Normal 0-130 [facility] ([place]) Comment on above: Performed By: #### C MP, LIPID, VIDH, FT4, A1C, GFR, TSH #### [address] [address] Triglyceride [Mass/Vol] 96 mg/dL Normal 0-150 [facility] ([place]) Comment on above: Result Comment: Trig lyceride Reference Interval: Less than 150 Normal 150-199 Borderline high risk 200-499 High risk 500 or higher Very high risk Performed By: #### C MP, LIPID, VIDH, FT4, A1C, GFR, TSH #### [place] [address] [address] [place], [place] [address] TSHon 02-29-2024 TSH Qn 1.68 m[IU]/L Normal 0.36-3.74 [facility] ([place]) Comment on above: Performed By: #### C MP, LIPID, VIDH, FT4, A1C, GFR, TSH #### [address] [place], [place] [address] US THYROIDon 02-29-2024 US THYROID ORIGINAL EXAMINATION: [...] Date: 02/29/2024 2:06:10 PM Ordering Provider: MARQUISE LEHMAN Normal [facility] ([place]) VIDHon 02-29-2024 Vit. D 25-Hydroxy 37.0 ng/mL Normal [facility] ([place]) Comment on above: Result Comment: Inte rpretive Values Based on Total 25(OH) Vitamin D: Deficient <20 ng/mL Insufficient 20 - <30 ng/mL Sufficient 30-100 ng/mL Performed By: #### C MP, LIPID, VIDH, FT4, A1C, GFR, TSH #### [address] [address] .GFRon 10-20-2023 GFR Non- 48 ml/min/1.73sqm Normal [facility] ([place]) Comment on above: Result Comment: GFR Population [...] LIPID, VIDH, FT4, A1C, GFR, TSH #### [address] [address] GFR 58 ml/min/1.73sqm Normal [facility] ([place]) Comment on above: Result Comment: GFR Population [...] LIPID, VIDH, FT4, A1C, GFR, TSH #### [address] [address] A1Con 10-20-2023 HbA1c (Bld) [Mass fraction] 6.9 % High 4.3-6.4 [facility] ([place]) Comment on above: Performed By: #### C MP, LIPID, VIDH, FT4, A1C, GFR, TSH #### [address] [address] CMPon 10-20-2023 Albumin Level 3.7 G/dL Normal 3.4-4.8 [facility] ([place]) Comment on above: Performed By: #### C MP, LIPID, VIDH, FT4, A1C, GFR, TSH #### [address] [address] Albumin/Globulin [Mass ratio] 1.2 {ratio} Normal 1.1-2.5 [facility] ([place]) Comment on above: Performed By: #### C MP, LIPID, VIDH, FT4, A1C, GFR, TSH #### [address] [address] ALP [Catalytic activity/Vol] 68 U/L Normal 40-135 [facility] ([place]) Comment on above: Performed By: #### C MP, LIPID, VIDH, FT4, A1C, GFR, TSH #### [address] [address] ALT [Catalytic activity/Vol] 14 U/L Normal 14-59 [facility] ([place]) Comment on above: Performed By: #### C MP, LIPID, VIDH, FT4, A1C, GFR, TSH #### [address] [address] AST [Catalytic activity/Vol] 11 U/L Normal 10-40 [facility] ([place]) Comment on above: Performed By: #### C MP, LIPID, VIDH, FT4, A1C, GFR, TSH #### [address] [address] Bili Total 0.5 mg/dL Normal 0.2-1.0 [facility] ([place]) Comment on above: Result Comment: Use of this assay is not recommended for patients undergoing treatment with eltrombopag due to the potential for falsely elevated results. Performed By: #### C MP, LIPID, VIDH, FT4, A1C, GFR, TSH #### [address] [address] BUN/Creatinine Ratio 15 ratio Normal 7-27 [facility] ([place]) Comment on above: Performed By: #### C MP, LIPID, VIDH, FT4, A1C, GFR, TSH #### [address] [address] Calcium [Mass/Vol] 9.5 mg/dL Normal 8.4-10.2 [facility] ([place]) Comment on above: Performed By: #### C MP, LIPID, VIDH, FT4, A1C, GFR, TSH #### [address] [address] Chloride [Moles/Vol] 97 mmol/L Low 98-107 [facility] ([place]) Comment on above: Performed By: #### C MP, LIPID, VIDH, FT4, A1C, GFR, TSH #### [address] [address] CO2 [Moles/Vol] 33 mmol/L High 23-31 [facility] ([place]) Comment on above: Performed By: #### C MP, LIPID, VIDH, FT4, A1C, GFR, TSH #### [address] [address] Creatinine [Mass/Vol] 1.11 mg/dL High 0.55-1.02 [facility] Comment on above: Performed By: #### C MP, LIPID, VIDH, FT4, A1C, GFR, TSH #### [address] [address] Electrolyte Balance 8.0 mEq/L Normal 4.0-15.0 [facility] ([place]) Comment on above: Performed By: #### C MP, LIPID, VIDH, FT4, A1C, GFR, TSH #### [address] [address] Globulin 3.2 G/dL Normal [facility] ([place]) Comment on above: Performed By: #### C MP, LIPID, VIDH, FT4, A1C, GFR, TSH #### [address] [address] Glucose [Mass/Vol] 178 mg/dL High 83-110 [facility] ([place]) Comment on above: Performed By: #### C MP, LIPID, VIDH, FT4, A1C, GFR, TSH #### [address] [address] Potassium [Moles/Vol] 3.5 mmol/L Normal 3.5-5.1 [facility] Comment on above: Performed By: #### C MP, LIPID, VIDH, FT4, A1C, GFR, TSH #### [address] [address] Sodium [Moles/Vol] 138 mmol/L Normal 136-145 [facility] ([place]) Comment on above: Performed By: #### C MP, LIPID, VIDH, FT4, A1C, GFR, TSH #### [address] [address] Total Protein 6.9 G/dL Normal 6.4-8.2 [facility] ([place]) Comment on above: Performed By: #### C MP, LIPID, VIDH, FT4, A1C, GFR, TSH #### [address] [address] Urea nitrogen [Mass/Vol] 17 mg/dL Normal 7-18 [facility] ([place]) Comment on above: Performed By: #### C MP, LIPID, VIDH, FT4, A1C, GFR, TSH #### [address] [address] FT4on 10-20-2023 Free T4 [Mass/Vol] 1.28 ng/dL Normal 0.76-1.46 [facility] ([place]) Comment on above: Performed By: #### C MP, LIPID, VIDH, FT4, A1C, GFR, TSH #### [address] [address] LABORATORYOrdered By: Latonya Pendleton on 10-20-2023 Albumin [...] 10-20-2023 Cholesterol [Mass/Vol] 205 mg/dL High 0-200 [facility] ([place]) Comment on above: Result Comment: Chol esterol Reference Interval: Less than 200 Desirable 200-239 Borderline high risk 240 and above High risk Performed By: #### C MP, LIPID, VIDH, FT4, A1C, GFR, TSH #### [address] [address] Cholesterol in HDL [Mass/Vol] 46 mg/dL Normal 40-60 [facility] ([place]) Comment on above: Performed By: #### C MP, LIPID, VIDH, FT4, A1C, GFR, TSH #### [address] [address] Cholesterol in LDL [Mass/Vol] 128 mg/dL Normal 0-130 [facility] ([place]) Comment on above: Performed By: #### C MP, LIPID, VIDH, FT4, A1C, GFR, TSH #### [address] [address] Triglyceride [Mass/Vol] 156 mg/dL High 0-150 [facility] ([place]) Comment on above: Result Comment: Trig lyceride Reference Interval: Less than 150 Normal 150-199 Borderline high risk 200-499 High risk 500 or higher Very high risk Performed By: #### C MP, LIPID, VIDH, FT4, A1C, GFR, TSH #### [address] [address] MALBRon 10-20-2023 U Creatinine 117.6 mg/dL High 28.0-117.0 [facility] ([place]) Comment on above: Performed By: #### C MP, LIPID, VIDH, FT4, A1C, GFR, TSH #### [address] [address] U Microalb 820 mcg/dL Normal [facility] ([place]) Comment on above: Performed By: #### C MP, LIPID, VIDH, FT4, A1C, GFR, TSH #### [address] [address] U Ratio Alb/Cre 7 mcg/mg Normal 0-30 [facility] ([place]) Comment on above: Performed By: #### C MP, LIPID, VIDH, FT4, A1C, GFR, TSH #### [address] [address] TSHon 10-20-2023 TSH Qn 2.90 m[IU]/L Normal 0.36-3.74 [facility] ([place]) Comment on above: Performed By: #### C MP, LIPID, VIDH, FT4, A1C, GFR, TSH #### [address] [address] VIDHon 10-20-2023 Vit. D 25-Hydroxy 43.8 ng/mL Normal [facility] ([place]) Comment on above: Result Comment: Inte rpretive Values Based on Total 25(OH) Vitamin D: Deficient <20 ng/mL Insufficient 20 - <30 ng/mL Sufficient 30-100 ng/mL Performed By: #### C MP, LIPID, VIDH, FT4, A1C, GFR, TSH #### [address] [address] [place] MAMMOGRAM SCREENING BILAT ERAL W/TOMOon 08-21-2023 MA MAMMOGRAM SCREENING BILATERAL W/NATO ORIGINAL FROM: [address] [address] PROCEDURE FOR: RAGHAV GREGORY [address] [place] [id number] Home: PID#: [id number] Exam#: [id number] : 1950 Age: 73 TO: MATHIEU ROLAND DO [address] [facility] [place] [address] [place] [address] Fax: NO FAX EXAMINATION: SCREENING DIGITAL BILATERAL [...] addition to annual mammographic screening per the [employer]. 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 sent: Probably Benign BI-RADS 3 Mammogram BI-RADS: 2 Benign Normal [facility] ([place]) .GFRon 06-23-2023 GFR Non- 56 ml/min/1.73sqm Normal [facility] ([place]) Comment on above: Result Comment: GFR Population [...] LIPID, VIDH, FT4, A1C, GFR, TSH #### [address] [address] GFR 68 ml/min/1.73sqm Normal [facility] ([place]) Comment on above: Result Comment: GFR Population [...] LIPID, VIDH, FT4, A1C, GFR, TSH #### [address] [address] A1Con 06-23-2023 HbA1c (Bld) [Mass fraction] 6.4 % Normal 4.3-6.4 [facility] ([place]) Comment on above: Performed By: #### C MP, LIPID, VIDH, FT4, A1C, GFR, TSH #### [address] [address] CMPon 06-23-2023 Albumin Level 3.7 G/dL Normal 3.4-4.8 [facility] ([place]) Comment on above: Performed By: #### C MP, LIPID, VIDH, FT4, A1C, GFR, TSH #### [address] [address] Albumin/Globulin [Mass ratio] 1.2 {ratio} Normal 1.1-2.5 [facility] ([place]) Comment on above: Performed By: #### C MP, LIPID, VIDH, FT4, A1C, GFR, TSH #### [address] [address] ALP [Catalytic activity/Vol] 77 U/L Normal 40-135 [facility] ([place]) Comment on above: Performed By: #### C MP, LIPID, VIDH, FT4, A1C, GFR, TSH #### [address] [address] ALT [Catalytic activity/Vol] 15 U/L Normal 14-59 [facility] ([place]) Comment on above: Performed By: #### C MP, LIPID, VIDH, FT4, A1C, GFR, TSH #### [address] [address] AST [Catalytic activity/Vol] 16 U/L Normal 10-40 [facility] ([place]) Comment on above: Performed By: #### C MP, LIPID, VIDH, FT4, A1C, GFR, TSH #### [address] [address] Bili Total 0.4 mg/dL Normal 0.2-1.0 [facility] ([place]) Comment on above: Result Comment: Use of this assay is not recommended for patients undergoing treatment with eltrombopag due to the potential for falsely elevated results. Performed By: #### C MP, LIPID, VIDH, FT4, A1C, GFR, TSH #### [address] [address] BUN/Creatinine Ratio 11 ratio Normal 7-27 [facility] ([place]) Comment on above: Performed By: #### C MP, LIPID, VIDH, FT4, A1C, GFR, TSH #### [address] [address] Calcium [Mass/Vol] 8.9 mg/dL Normal 8.4-10.2 [facility] ([place]) Comment on above: Performed By: #### C MP, LIPID, VIDH, FT4, A1C, GFR, TSH #### [place] [address] Chloride [Moles/Vol] 106 mmol/L Normal 98-107 [facility] ([place]) Comment on above: Performed By: #### C MP, LIPID, VIDH, FT4, A1C, GFR, TSH #### [place] [address] CO2 [Moles/Vol] 29 mmol/L Normal 23-31 [facility] ([place]) Comment on above: Performed By: #### C MP, LIPID, VIDH, FT4, A1C, GFR, TSH #### [place] [address] Creatinine [Mass/Vol] 0.97 mg/dL Normal 0.55-1.02 [facility] Comment on above: Performed By: #### C MP, LIPID, VIDH, FT4, A1C, GFR, TSH #### [address] [address] Electrolyte Balance 6.0 mEq/L Normal 4.0-15.0 [facility] ([place]) Comment on above: Performed By: #### C MP, LIPID, VIDH, FT4, A1C, GFR, TSH #### [address] [address] Globulin 3.1 G/dL Normal [facility] ([place]) Comment on above: Performed By: #### C MP, LIPID, VIDH, FT4, A1C, GFR, TSH #### [address] [address] Glucose [Mass/Vol] 138 mg/dL High 83-110 [facility] ([place]) Comment on above: Performed By: #### C MP, LIPID, VIDH, FT4, A1C, GFR, TSH #### [address] [address] Potassium [Moles/Vol] 5.1 mmol/L Normal 3.5-5.1 [facility] Comment on above: Performed By: #### C MP, LIPID, VIDH, FT4, A1C, GFR, TSH #### [address] [address] Sodium [Moles/Vol] 141 mmol/L Normal 136-145 [facility] ([place]) Comment on above: Performed By: #### C MP, LIPID, VIDH, FT4, A1C, GFR, TSH #### [address] [address] Total Protein 6.8 G/dL Normal 6.4-8.2 [facility] ([place]) Comment on above: Performed By: #### C MP, LIPID, VIDH, FT4, A1C, GFR, TSH #### [address] [address] Urea nitrogen [Mass/Vol] 11 mg/dL Normal 7-18 [facility] ([place] Comment on above: Performed By: #### C MP, LIPID, VIDH, FT4, A1C, GFR, TSH #### [address] [address] FT3on 06-23-2023 Free T3 [Mass/Vol] 2.32 pg/mL Normal 2.30-4.00 [facility] ([place]) Comment on above: Performed By: #### C MP, LIPID, VIDH, FT4, A1C, GFR, TSH #### [address] [address] HCVon 06-23-2023 Hep C Ab Non-Reactive Normal Non-Reactiv e [facility] ([place]) Comment on above: Performed By: #### H CV1 #### [address] [address] Hep C Ab Int Normal [facility] ([place]) Comment on above: Result Comment: Nonr eactive: Samples with a value < 0.80 are considered nonreactive (negative) for antibodies to HCV. A negative test result does not exclude the possibility of exposure to or infection with HCV. HCV antibodies may be undetectable in some stages of the infection and in some clinical conditions. See Interp Performed By: #### H CV1 #### [facility] [address] [place] [address] LIPIDon 06-23-2023 Cholesterol [Mass/Vol] 178 mg/dL Normal 0-200 [facility] ([place]) Comment on above: Result Comment: Chol esterol Reference Interval: Less than 200 Desirable 200-239 Borderline high risk 240 and above High risk Performed By: #### C MP, LIPID, VIDH, FT4, A1C, GFR, TSH #### [address] [address] Cholesterol in HDL [Mass/Vol] 43 mg/dL Normal 40-60 [facility] ([place] Comment on above: Performed By: #### C MP, LIPID, VIDH, FT4, A1C, GFR, TSH #### [address] [address] Cholesterol in LDL [Mass/Vol] 110 mg/dL Normal 0-130 [facility] ([place] Comment on above: Performed By: #### C MP, LIPID, VIDH, FT4, A1C, GFR, TSH #### [address] [address] Triglyceride [Mass/Vol] 123 mg/dL Normal 0-150 A [facility] ([place]) Comment on above: Result Comment: Trig lyceride Reference Interval: Less than 150 Normal 150-199 Borderline high risk 200-499 High risk 500 or higher Very high risk Performed By: #### C MP, LIPID, VIDH, FT4, A1C, GFR, TSH #### [address] [address] TSHon 06-23-2023 TSH Qn 1.77 m[IU]/L Normal 0.36-3.74 [facility] ([place]) Comment on above: Performed By: #### C MP, LIPID, VIDH, FT4, A1C, GFR, TSH #### [address] [place], [place] [address] VIDHon 06-23-2023 Vit. D 25-Hydroxy 29.9 ng/mL Normal [facility] ([place]) Comment on above: Result Comment: Inte rpretive Values Based on Total 25(OH) Vitamin D: Deficient <20 ng/mL Insufficient 20 - <30 ng/mL Sufficient 30-100 ng/mL Performed By: #### C MP, LIPID, VIDH, FT4, A1C, GFR, TSH #### [address] [place], [place] [address] LABORATORYOrdered By: Keri Goldstein on 02-12-2023 Albumin [...] Schmidt on 10-31-2022 Wound Culture Staphylococcus aureus [facility] Gram stain for investigation of transfusion reactionOrdered By: Dr. Schmidt on 10-30-2022 Microscopic observation Gram stain Nom (Unsp spec) [facility] LABORATORYOrdered By: SYSTEM SYSTEM on 09-25-2022 Albumin [...] 0 - 150 mg/dL AO ADM SS Absolute lymphocyte countOrd ered By: Dr. Ott on 09-15-2022 Lymphocytes Auto (Unsp spec) [#/Vol] 1.07 10*3/uL 0.83-4.51 [facility] Basophil percentageOrdered B y: Dr. Ott on 09-15-2022 Basophils/100 WBC (Bld) 0.4 % 0-1 [facility] Bilirubin [Mass/Vol] 0.60 mg/dL 0.20-1.00 [facility] Comment on above: For patients on eltr ombopag therapy, use of Dimension [place] TBIL is not recommended. Chloride [Moles/Vol] 105 mmol/L 98-107 [facility] Eosinophils/100 WBC (Bld) 1.1 % 0-5 [facility] Glucose [Mass/Vol] 249 mg/dL 74-106 [facility] Comment on above: Glucose result great er than or equal to 200 mg/dLsuggests DIABETES MELLITUS per A.D.A. criteria. Neutrophils (Bld) [#/Vol] 10.2 10*3/uL 2.0-7.7 [facility] Neutrophils/100 WBC (Bld) 84.7 % 47-70 [facility] Potassium [Moles/Vol] 5.1 mmol/L 3.5-5.1 [facility] Comment on above: Moderate Hemolysis, Result may be falsely increased. Protein [Mass/Vol] 7.6 g/dL 6.4-8.2 [facility] Sodium [Moles/Vol] 138 mmol/L 136-145 [facility] WBC (Bld) [#/Vol] 12.0 10*3/uL 4.4-11.0 [facility] Blood erythrocytes count (nu mber/volume)Ordered By: Dr. Ott on 09-15-2022 RBC (Bld) [#/Vol] 6.09 10*6/uL 4.2-5.4 [facility] Blood hemoglobin measurement (mass/volume)Ordered By: Dr. Ott on 09-15-2022 Hemoglobin (Bld) [Mass/Vol] 18.1 g/dL 12.0-15.0 [facility] Comment on above: CRITICAL VALUE VERIF IED. CALLED TO Tesha SHEA RN ER09/15/22 2355 Alf Fajardo.RESULTS READ BACK BY SAME. Blood lymphocytes/100 leukoc ytesOrdered By: Dr. Ott on 09-15-2022 Lymphocytes/100 WBC (Bld) 8.9 % 19-41 [facility] Blood monocytes/100 leukocyt esOrdered By: Dr. Ott on 09-15-2022 Monocytes/100 WBC (Bld) 4.3 % 0-10 [facility] Blood platelet mean volumeOr dered By: Dr. Ott on 09-15-2022 Platelet mean volume (Bld) [Entitic vol] 10.6 fL 6.2-12.0 [facility] Determination of erythrocyte mean corpuscular volume (MCV)Ordered By: Dr. Ott on 09-15-2022 MCV (RBC) [Entitic vol] 93.1 fL 81-99 [facility] Direct bilirubinOrdered By: Dr. Ott on 09-15-2022 Bilirubin.direct [Mass/Vol] 0.07 mg/dL 0.00-0.30 [facility] Hematocrit Auto (Bld) [Volum e fraction]Ordered By: Dr. Ott on 09-15-2022 Hematocrit (Bld) [Volume fraction] 56.7 % 37-47 [facility] Laboratory - Chemistry and C hemistry - challengeOrdered By: Dr. Ott on 09-15-2022 ALP [Catalytic activity/Vol] 100 U/L 45-117 [facility] ALT [Catalytic activity/Vol] 17 U/L 13-56 [facility] CO2 [Moles/Vol] 20.0 mmol/L 21.0-32.0 [facility] Globulin (S) [Mass/Vol] 3.9 g/dL 2.2-4.2 [facility] Lipase [Catalytic activity/Vol] 42 U/L 73-393 [facility] Urea nitrogen/Creatinine [Mass ratio] 9.8 mg/mg 10-20 [facility] Laboratory - Hematology and Cell countsOrdered By: Dr. Ott on 09-15-2022 Erythrocyte distribution width (RBC) [Entitic vol] 44.8 fL 35.1-43.9 [facility] Erythrocyte distribution width (RBC) [Ratio] 13.2 % 11.6-14.6 [facility] Immature granulocytes/100 WBC (Bld) 0.600 % 0.0-0.9 [facility] Comment on above: IG% - Immature Granu locytes (promyelocytes, myelocytes and metamyelocytes) > 1% indicates that a LEFT SHIFT is Present. MCH (RBC) [Entitic mass] 29.7 pg 27.0-32.0 [facility] Nucleated RBC/100 WBC (Bld) [Ratio] 0 % 0-5 [facility] MCHC Auto (RBC) [Mass/Vol]Or dered By: Dr. Ott on 09-15-2022 MCHC (RBC) [Mass/Vol] 31.9 g/dL 32-36 [facility] No Panel InformationOrdered By: Dr. Ott on 09-15-2022 Estimated Creatinine Clearance Calc 34.65 ml/min [facility] Estimated GFR (MDRD) Amer 55 mL/min >60 [facility] Comment on above: GFR Calc Estimated GFR (MDRD) Non-Af Amer 45 mL/min >60 [facility] Comment on above: Non- GFR Calc Troponin I High Sensitivity 10 pg/mL 3.0-54.0 [facility] Comment on above: Please Note: [place] t Units and Gender Specific Reference Ranges. For more information see Policy Stat Procedure [place] High Sensitivity Troponin (TNIH) and attachments. Platelets bldOrdered By: Dr. Ott on 09-15-2022 Platelets (Bld) [#/Vol] 216 10*3/uL 150-450 [facility] Review by pathologistOrdered By: Dr. Ott on 09-15-2022 Pathologist review [place] (Unsp spec) [Interp] Suzanna bhatti [facility] Pathologist review [place] (Unsp spec) [Interp] Reviewed [facility] Comment on above: Previous reported re sult: Suzanna bhatti Edited by: RGOBRETT on 09/17/22:0939Neutrophilic leukocytosis.Polycythemia Clinical correlation necessary.Eliezer Johns M.D. 09/17/22 AMENDED REPORT 09/17/22 0939 PATH REV previously reported as: Suzanna bhatti Serum or plasma albumin pavel urement (mass/volume)Ordered By: Dr. Ott on 09-15-2022 Albumin [Mass/Vol] 3.7 g/dL 3.2-5.0 [facility] Serum or plasma calcium pavel urement (mass/volume)Ordered By: Dr. Ott on 09-15-2022 Calcium [Mass/Vol] 9.3 mg/dL 8.5-10.1 [facility] Serum or plasma creatinine m easurement (mass/volume)Ordered By: Dr. Ott on 09-15-2022 Creatinine [Mass/Vol] 1.23 mg/dL 0.55-1.02 [facility] Comment on above: The validity of the calculated GFR & GFRAA in patients over 70 years has not been determined. Clinical correlation is essential. Serum or plasma urea nitroge n measurement (mass/volume)Ordered By: Dr. Ott on 09-15-2022 Urea nitrogen [Mass/Vol] 12 mg/dL 7-18 [facility] Thin prep Papanicolaou smear with manual screeningOrdered By: Dr. Ott on 09-15-2022 Thin prep Papanicolaou smear with manual screening 21 U/L 15-37 [facility] Comment on above: Moderate Hemolysis, Result may be falsely increased. Thin prep Papanicolaou smear with manual screening 13 5-15 [facility] LABORATORYOrdered By: Favian Contreras on 03-05-2022 Albumin [...] Auto (Unsp spec) [#/Vol] 1.62 10*3/uL 0.83-4.51 [facility] Work Phone: Basophil percentageon 2021 Basophils/100 WBC (Bld) 0.5 % 0-1 [facility] Work Phone: Chloride [Moles/Vol] 100 mmol/L 98-107 [facility]: [phone] Eosinophils/100 WBC (Bld) 1.7 % 0-5 [facility] Work Phone: Glucose [Mass/Vol] 174 mg/dL 74-106 [facility] Work Phone: Comment on above: Fasting Glucose resu lt greater than or equal to 126 mg/dL suggests DIABETES MELLITUS per A.D.A. criteria. Neutrophils (Bld) [#/Vol] 5.8 10*3/uL 2.0-7.7 [facility] Work Phone: Neutrophils/100 WBC (Bld) 70.5 % 47-70 [facility] Work Phone: Potassium [Moles/Vol] 4.1 mmol/L 3.5-5.1 [facility] Work Phone: Sodium [Moles/Vol] 136 mmol/L 136-145 [facility] Work Phone: WBC (Bld) [#/Vol] 8.2 10*3/uL 4.4-11.0 [facility] Work Phone: Blood erythrocytes count (nu mber/volume)on 01-18-2022 RBC (Bld) [#/Vol] 4.01 10*6/uL 4.2-5.4 [facility] Work [facility]: Blood hemoglobin measurement (mass/volume)on 01-18-2022 Hemoglobin (Bld) [Mass/Vol] 11.8 g/dL 12.0-15.0 [facility] Work Phone: Blood lymphocytes/100 leukoc yteson 01-18-2022 Lymphocytes/100 WBC (Bld) 19.7 % 19-41 [facility] Work Phone: Blood monocytes/100 leukocyt eson 01-18-2022 Monocytes/100 WBC (Bld) 6.4 % 0-10 [facility] Work Phone: Blood platelet mean volumeon 01-18-2022 Platelet mean volume (Bld) [Entitic vol] 10.1 fL 6.2-12.0 [facility] Work Phone: Determination of erythrocyte mean corpuscular volume (MCV)on 01-18-2022 MCV (RBC) [Entitic vol] 92.5 fL 81-99 [facility] Work Phone: Glucose Glucometer (BldC) [M ass/Vol]on 01-18-2022 Glucose [Mass/Vol] 243 mg/dL 74-106 [facility] Work Phone: Comment on above: MANAGEMENT OF PATIEN T CARE PER NURSING PROTOCOL Hematocrit Auto (Bld) [Volum e fraction]on 01-18-2022 Hematocrit (Bld) [Volume fraction] 37.1 % 37-47 [facility] Work Phone: Laboratory - Chemistry and C hemistry - challengeon 01-18-2022 CO2 [Moles/Vol] 32.0 mmol/L 21.0-32.0 [facility] Work Phone: Urea nitrogen/Creatinine [Mass ratio] 23.8 mg/mg 10-20 [facility] Work Phone: Laboratory - Hematology and Cell countson 01-18-2022 Erythrocyte distribution width (RBC) [Entitic vol] 42.2 fL 35.1-43.9 [facility] Work Phone: Erythrocyte distribution width (RBC) [Ratio] 12.5 % 11.6-14.6 [facility] Work Phone: Immature granulocytes/100 WBC (Bld) 1.200 % 0.0-0.9 [facility] Work Phone: Comment on above: IG% - Immature Granu locytes (promyelocytes, myelocytes and metamyelocytes) > 1% indicates that a LEFT SHIFT is Present. MCH (RBC) [Entitic mass] 29.4 pg 27.0-32.0 [facility] Work Phone: Nucleated RBC/100 WBC (Bld) [Ratio] 0 % 0-5 [facility] Work Phone: MCHC Auto (RBC) [Mass/Vol]on 01-18-2022 MCHC (RBC) [Mass/Vol] 31.8 g/dL 32-36 [facility] Work Phone: No Panel Informationon 01-18 Estimated Creatinine Clearance Calc 43.27 ml/min [facility] Work Phone: Estimated GFR (MDRD) Amer 96 mL/min >60 [facility] Work Phone: Comment on above: GFR Calc Estimated GFR (MDRD) Non-Af Amer 80 mL/min >60 [facility] Work Phone: Comment on above: Non- GFR Calc Platelets bldon 01-18-2022 Platelets (Bld) [#/Vol] 345 10*3/uL 150-450 [facility] Work Phone: Serum or plasma calcium pavel urement (mass/volume)on 01-18-2022 Calcium [Mass/Vol] 9.6 mg/dL 8.5-10.1 [facility] Work Phone: Serum or plasma creatinine m easurement (mass/volume)on 01-18-2022 Creatinine [Mass/Vol] 0.76 mg/dL 0.55-1.02 [facility] Work Phone: Comment on above: The validity of the calculated GFR & GFRAA in patients over 70 years has not been determined. Clinical correlation is essential. Serum or plasma urea nitroge n measurement (mass/volume)on 01-18-2022 Urea nitrogen [Mass/Vol] 18 mg/dL 7-18 [facility] Work Phone: Thin prep Papanicolaou smear with manual screeningon 01-18-2022 Thin prep Papanicolaou smear with manual screening 4 5-15 [facility] Work Phone: Bacteria identified Anaer cx Nom (Unsp spec)on 01-16-2022 Anaerobic Culture Anaerobic cocci [facility] Work Phone: Bacteria identified Cx Nom ( Wound)on 01-16-2022 Wound Culture Staphylococcus aureus [facility] Work Phone: Wound Culture Positive [facility] Work Phone: Gram stain for investigation of transfusion reactionon 01-16-2022 Microscopic observation Gram stain Nom (Unsp spec) [facility] Work Phone: No Panel Informationon 01-16 Thyroid Stimulating Hormone (TSH) 1.90 uIU/mL 0.358-3.74 [facility] Work Phone: Vancomycin troughon 01-17-20 Vancomycin trough [Mass/Vol] 8.1 ug/mL 5.0-15.0 [facility] Work Phone: Comment on above: VANCOMYCIN STANDARED DRUG THERAPY TROUGH LEVEL: 5.0 - 15.0 mg/L VANCOMYCIN HIGH INTENSITY THERAPY TROUGH LEVEL: 15.0 - 20.0 mg/L High Intensity therapy recommended for serious lifethreatening infections include:- Jgdcmuqwks-Fitbttmrldgv-Yjptqtiyk (Ventilator/Healtcare Associated)-Sepsis PLEASE CONTACT PHARMACY SERVICES (#[id number]) FOR INTERPRETATIONOF RESULTS. Absolute lymphocyte counton 01-14-2022 Lymphocytes Auto (Unsp spec) [#/Vol] 1.55 10*3/uL 0.83-4.51 [facility] Work Phone: Basophil percentageon 2021 Lactate [Moles/Vol] 1.2 mmol/L 0.4-2.0 [facility] Work Phone: Basophils/100 WBC (Bld) 0.3 % 0-1 [facility] Work Phone: Bilirubin [Mass/Vol] 0.20 mg/dL 0.20-1.00 [facility] Work Phone: Comment on above: For patients on eltr ombopag therapy, use of Dimension [place] TBIL is not recommended. Chloride [Moles/Vol] 99 mmol/L 98-107 [facility] Work Phone: Eosinophils/100 WBC (Bld) 0.8 % 0-5 [facility] Work Phone: Glucose [Mass/Vol] 49 mg/dL 74-106 [facility] Work Phone: Comment on above: Glucose result less than 50 mg/dL suggests HYPOGLYCEMIA. Lactate [Moles/Vol] 2.8 mmol/L 0.4-2.0 [facility] Work Phone: Comment on above: Critical Result(s) C alled at: 20:22:03 01/14/2022 by: Virginie persaud TO [email or web address]. Results read back by same. Neutrophils (Bld) [#/Vol] 8.3 10*3/uL 2.0-7.7 [facility] Work Phone: Neutrophils/100 WBC (Bld) 75.0 % 47-70 [facility] Work Phone: Potassium [Moles/Vol] 3.8 mmol/L 3.5-5.1 [facility] Work Phone: Protein [Mass/Vol] 6.9 g/dL 6.4-8.2 [facility] Work Phone: Sodium [Moles/Vol] 136 mmol/L 136-145 [facility] Work Phone: WBC (Bld) [#/Vol] 11.0 10*3/uL 4.4-11.0 [facility] Work Phone: Blood erythrocytes count (nu mber/volume)on 01-14-2022 RBC (Bld) [#/Vol] 3.73 10*6/uL 4.2-5.4 [facility] Work Phone: Blood hemoglobin measurement (mass/volume)on 01-14-2022 Hemoglobin (Bld) [Mass/Vol] 11.2 g/dL 12.0-15.0 [facility] Work Phone: Blood lymphocytes/100 leukoc yteson 01-14-2022 Lymphocytes/100 WBC (Bld) 14.1 % 19-41 [facility] Work Phone: Blood monocytes/100 leukocyt eson 01-14-2022 Monocytes/100 WBC (Bld) 8.3 % 0-10 [facility] Work Phone: Blood platelet mean volumeon 01-14-2022 Platelet mean volume (Bld) [Entitic vol] 10.8 fL 6.2-12.0 [facility] Work Phone: Determination of erythrocyte mean corpuscular volume (MCV)on 01-14-2022 MCV (RBC) [Entitic vol] 91.4 fL 81-99 [facility] Work Phone: Hematocrit Auto (Bld) [Volum e fraction]on 01-14-2022 Hematocrit (Bld) [Volume fraction] 34.1 % 37-47 [facility] Work Phone: INR in Blood by Coagulation assayon 01-14-2022 INR Coag (Bld) [Relative time] 1.2 {INR} [facility] Work Phone: Laboratory - Chemistry and C hemistry - challengeon 01-14-2022 ALP [Catalytic activity/Vol] 52 U/L 45-117 [facility] Work Phone: ALT [Catalytic activity/Vol] 23 U/L 13-56 [facility] Work Phone: CO2 [Moles/Vol] 29.0 mmol/L 21.0-32.0 [facility] Work Phone: Globulin (S) [Mass/Vol] 4.4 g/dL 2.2-4.2 [facility] Work Phone: Urea nitrogen/Creatinine [Mass ratio] 17.1 mg/mg 10-20 [facility] Work Phone: Laboratory - Coagulationon 0 01-14-2022 aPTT Coag (Bld) [Time] 35.5 s 24.1-36.2 [facility] Work Phone: PT Coag (PPP) [Time] 15.0 s 11.7-14.9 [facility] Work Phone: Laboratory - Hematology and Cell countson 01-14-2022 Erythrocyte distribution width (RBC) [Entitic vol] 41.9 fL 35.1-43.9 [facility] Work Phone: Erythrocyte distribution width (RBC) [Ratio] 12.5 % 11.6-14.6 [facility] Work Phone: Immature granulocytes/100 WBC (Bld) 1.500 % 0.0-0.9 [facility] Work Phone: Comment on above: IG% - Immature Granu locytes (promyelocytes, myelocytes and metamyelocytes) > 1% indicates that a LEFT SHIFT is Present. MCH (RBC) [Entitic mass] 30.0 pg 27.0-32.0 [facility] Work Phone: Nucleated RBC/100 WBC (Bld) [Ratio] 0 % 0-5 [facility] Work Phone: Laboratory - Microbiology an d Antimicrobial susceptibilityon 01-14-2022 Bacteria identified Cx Nom (Bld) No growth in 5 days. [facility] Work Phone: MCHC Auto (RBC) [Mass/Vol]on 01-14-2022 MCHC (RBC) [Mass/Vol] 32.8 g/dL 32-36 [facility] Work Phone: No Panel Informationon 01-14 Estimated Creatinine Clearance Calc 38.53 ml/min [facility] Work Phone: Estimated GFR (MDRD) Amer 58 mL/min >60 [facility] Work Phone: Comment on above: GFR Calc Estimated GFR (MDRD) Non-Af Amer 48 mL/min >60 [facility] Work Phone: Comment on above: Non- GFR Calc Platelets bldon 01-14-2022 Platelets (Bld) [#/Vol] 318 10*3/uL 150-450 [facility] Work Phone: Serum or plasma albumin pavel urement (mass/volume)on 01-14-2022 Albumin [Mass/Vol] 2.5 g/dL 3.2-5.0 [facility] Work Phone: Serum or plasma albumin/glob ulin mass ratioon 01-14-2022 Albumin/Globulin [Mass ratio] 0.6 {ratio} 0.9-2.4 [facility] Work Phone: Serum or plasma calcium pavel urement (mass/volume)on 01-14-2022 Calcium [Mass/Vol] 8.9 mg/dL 8.5-10.1 [facility] Work Phone: Serum or plasma creatinine m easurement (mass/volume)on 01-14-2022 Creatinine [Mass/Vol] 1.17 mg/dL 0.55-1.02 [facility] Work Phone: Comment on above: The validity of the calculated GFR & GFRAA in patients over 70 years has not been determined. Clinical correlation is essential. Serum or plasma urea nitroge n measurement (mass/volume)on 01-14-2022 Urea nitrogen [Mass/Vol] 20 mg/dL 7-18 [facility] Work Phone: Thin prep Papanicolaou smear with manual screeningon 01-14-2022 Thin prep Papanicolaou smear with manual screening 31 U/L 15-37 [facility] Work Phone: Thin prep Papanicolaou smear with manual screening 8 5-15 [facility] Work Phone: Absolute lymphocyte counton 01-13-2022 Lymphocytes Auto (Unsp spec) [#/Vol] 0.98 10*3/uL 0.83-4.51 [facility] Work Phone: Basophil percentageon 2021 Basophils/100 WBC (Bld) 0.3 % 0-1 [facility] Work Phone: Bilirubin [Mass/Vol] 0.40 mg/dL 0.20-1.00 [facility] Work Phone: Comment on above: For patients on eltr ombopag therapy, use of Dimension [place] TBIL is not recommended. Chloride [Moles/Vol] 99 mmol/L 98-107 [facility] Work Phone: [phone] Eosinophils/100 WBC (Bld) 0.6 % 0-5 [facility] Work Phone: [phone] Glucose [Mass/Vol] 142 mg/dL 74-106 [facility] Work Phone: Comment on above: Fasting Glucose resu lt greater than or equal to 126 mg/dL suggests DIABETES MELLITUS per A.D.A. criteria. Neutrophils (Bld) [#/Vol] 7.7 10*3/uL 2.0-7.7 [facility] Work Phone: [phone] Neutrophils/100 WBC (Bld) 81.1 % 47-70 [facility] Work Phone: [phone] Potassium [Moles/Vol] 4.1 mmol/L 3.5-5.1 [facility] Work Phone: [phone] Protein [Mass/Vol] 6.5 g/dL 6.4-8.2 [facility] Work Phone: [phone] Sodium [Moles/Vol] 132 mmol/L 136-145 [facility] Work Phone: [phone] WBC (Bld) [#/Vol] 9.5 10*3/uL 4.4-11.0 [facility] Work Phone: [phone] Blood erythrocytes count (nu mber/volume)on 01-13-2022 RBC (Bld) [#/Vol] 3.63 10*6/uL 4.2-5.4 [facility] Work Phone: Blood hemoglobin measurement (mass/volume)on 01-13-2022 Hemoglobin (Bld) [Mass/Vol] 10.9 g/dL 12.0-15.0 [facility] Work Phone: Blood lymphocytes/100 leukoc yteson 01-13-2022 Lymphocytes/100 WBC (Bld) 10.3 % 19-41 [facility] Work Phone: [phone] Blood monocytes/100 leukocyt eson 01-13-2022 Monocytes/100 WBC (Bld) 7.1 % 0-10 [facility] Work Phone: Blood platelet mean volumeon 01-13-2022 Platelet mean volume (Bld) [Entitic vol] 11.3 fL 6.2-12.0 [facility] Work Phone: Determination of erythrocyte mean corpuscular volume (MCV)on 01-13-2022 MCV (RBC) [Entitic vol] 90.4 fL 81-99 [facility] Work Phone: Erythrocyte sedimentation ra salud 01-13-2022 ESR (Bld) [Velocity] 67 mm[facility]h [facility]: Hematocrit Auto (Bld) [Volum e fraction]on 01-13-2022 Hematocrit (Bld) [Volume fraction] 32.8 % 37-47 [facility] Work Phone: Laboratory - Chemistry and C hemistry - challengeon 01-13-2022 ALP [Catalytic activity/Vol] 46 U/L 45-117 [facility] Work Phone: ALT [Catalytic activity/Vol] 22 U/L 13-56 [facility] Work Phone: CO2 [Moles/Vol] 27.0 mmol/L 21.0-32.0 [facility] Work Phone: Globulin (S) [Mass/Vol] 4.1 g/dL 2.2-4.2 [facility] Work Phone: Urea nitrogen/Creatinine [Mass ratio] 20.4 mg/mg 10-20 [facility] Work Phone: Laboratory - Hematology and Cell countson 01-13-2022 Erythrocyte distribution width (RBC) [Entitic vol] 41.1 fL 35.1-43.9 [facility] Work Phone: Erythrocyte distribution width (RBC) [Ratio] 12.4 % 11.6-14.6 [facility] Work Phone: Immature granulocytes/100 WBC (Bld) 0.600 % 0.0-0.9 [facility] Work Phone: Comment on above: IG% - Immature Granu locytes (promyelocytes, myelocytes and metamyelocytes) > 1% indicates that a LEFT SHIFT is Present. MCH (RBC) [Entitic mass] 30.0 pg 27.0-32.0 [facility] Work Phone: Nucleated RBC/100 WBC (Bld) [Ratio] 0 % 0-5 [facility] Work Phone: MCHC Auto (RBC) [Mass/Vol]on 01-13-2022 MCHC (RBC) [Mass/Vol] 33.2 g/dL 32-36 [facility] Work Phone: No Panel Informationon 01-13 Estimated Creatinine Clearance Calc 39.90 ml/min [facility] Work Phone: Estimated GFR (MDRD) Amer 61 mL/min >60 [facility] Work Phone: Comment on above: GFR Calc Estimated GFR (MDRD) Non-Af Amer 50 mL/min >60 [facility] Work Phone: Comment on above: Non- GFR Calc Platelets bldon 01-13-2022 Platelets (Bld) [#/Vol] 240 10*3/uL 150-450 [facility] Work Phone: Serum or plasma C reactive p rotein measurement (mass/volume)on 01-13-2022 CRP [Mass/Vol] 162.00 mg/L 0.0-3.0 [facility] Work Phone: Comment on above: C-Reactive Protein ( CRP) provides useful information for thediagnosis, therapy and monitoring of inflammatory processesand associated diseases. For the evaluation of Relative Riskfor Cardiovascular Disease, a High Sensitivity CRP (HSCRP)should be ordered. Serum or plasma albumin pavel urement (mass/volume)on 01-13-2022 Albumin [Mass/Vol] 2.4 g/dL 3.2-5.0 [facility] Work Phone: Serum or plasma albumin/glob ulin mass ratioon 01-13-2022 Albumin/Globulin [Mass ratio] 0.6 {ratio} 0.9-2.4 [facility] Work Phone: Serum or plasma calcium pavel urement (mass/volume)on 01-13-2022 Calcium [Mass/Vol] 8.7 mg/dL 8.5-10.1 [facility] Work Phone: Serum or plasma creatinine m easurement (mass/volume)on 01-13-2022 Creatinine [Mass/Vol] 1.13 mg/dL 0.55-1.02 [facility] Work Phone: Comment on above: The validity of the calculated GFR & GFRAA in patients over 70 years has not been determined. Clinical correlation is essential. Serum or plasma urea nitroge n measurement (mass/volume)on 01-13-2022 Urea nitrogen [Mass/Vol] 23 mg/dL 7-18 [facility] Work Phone: Thin prep Papanicolaou smear with manual screeningon 01-13-2022 Thin prep Papanicolaou smear with manual screening 36 U/L 15-37 [facility] Work Phone: Thin prep Papanicolaou smear with manual screening 6 5-15 [facility] Work Phone: No Panel Informationon 01-10 Culture Urine 50,000 - 100,000 cfu/ml Multiple bacterial morphotypes present. Probable Contamination. Suggest recollection if clinically indicated. [facility] Bacteria identified Anaer cx Nom (Unsp spec)on 12-26-2021 Anaerobic microbial culture No anaerobic bacteria isolated. [facility] Work Phone: Bacteria identified Cx Nom ( Wound)on 12-26-2021 Wound Culture Staphylococcus lugdunensis [facility] Work Phone: Wound Culture Staphylococcus epidermidis [facility] Work Phone: Gram stain for investigation of transfusion reactionon 12-26-2021 Microscopic observation Gram stain Nom (Unsp spec) [facility] Work Phone: LABORATORYOrdered By: Favian Contreras on [...] Auto (Unsp spec) [#/Vol] 1.62 10*3/uL 0.83-4.51 [facility] Work Phone: Basophil percentageon 2021 Basophils/100 WBC (Bld) 0.6 % 0-1 [facility] Work Phone: Bilirubin [Mass/Vol] 0.30 mg/dL 0.20-1.00 [facility] Work Phone: Comment on above: For patients on eltr ombopag therapy, use of Dimension [place] TBIL is not recommended. Chloride [Moles/Vol] 85 mmol/L 98-107 [facility] Work Phone: [phone] Eosinophils/100 WBC (Bld) 1.0 % 0-5 [facility] Work Phone: Glucose [Mass/Vol] 165 mg/dL 74-106 [facility] Work Phone: [phone] Comment on above: Fasting Glucose resu lt greater than or equal to 126 mg/dL suggests DIABETES MELLITUS per A.D.A. criteria. Neutrophils (Bld) [#/Vol] 4.4 10*3/uL 2.0-7.7 [facility] Work Phone: Neutrophils/100 WBC (Bld) 65.4 % 47-70 [facility] Work Phone: Potassium [Moles/Vol] 3.3 mmol/L 3.5-5.1 [facility] Work Phone: Protein [Mass/Vol] 7.3 g/dL 6.4-8.2 [facility] Work Phone: Sodium [Moles/Vol] 127 mmol/L 136-145 [facility] Work Phone: WBC (Bld) [#/Vol] 6.8 10*3/uL 4.4-11.0 [facility] Work Phone: Blood erythrocytes count (nu mber/volume)on 11-20-2021 RBC (Bld) [#/Vol] 4.81 10*6/uL 4.2-5.4 [facility] Work Phone: [phone] Blood hemoglobin measurement (mass/volume)on 11-20-2021 Hemoglobin (Bld) [Mass/Vol] 14.4 g/dL 12.0-15.0 [facility] Work Phone: Blood lymphocytes/100 leukoc yteson 03-23-2022 Lymphocytes/100 WBC (Bld) 24.0 % 19-41 [facility] Work Phone: Blood monocytes/100 leukocyt eson 11-20-2021 Monocytes/100 WBC (Bld) 8.9 % 0-10 [facility] Work Phone: Blood platelet mean volumeon 11-20-2021 Platelet mean volume (Bld) [Entitic vol] 9.6 fL 6.2-12.0 [facility] Work Phone: Determination of erythrocyte mean corpuscular volume (MCV)on 11-20-2021 MCV (RBC) [Entitic vol] 82.5 fL 81-99 [facility] Work Phone: Erythrocyte sedimentation ra salud 11-20-2021 ESR (Bld) [Velocity] 30 mm[facility]h [facility] Work [facility]: Hematocrit Auto (Bld) [Volum e fraction]on 11-20-2021 Hematocrit (Bld) [Volume fraction] 39.7 % 37-47 [facility] Work Phone: Laboratory - Chemistry and C hemistry - challengeon 11-20-2021 ALP [Catalytic activity/Vol] 75 U/L 45-117 [facility] Work Phone: ALT [Catalytic activity/Vol] 15 U/L 13-56 [facility] Work Phone: CO2 [Moles/Vol] 36.0 mmol/L 21.0-32.0 [facility] Work Phone: Globulin (S) [Mass/Vol] 3.6 g/dL 2.2-4.2 [facility] Work Phone: Urea nitrogen/Creatinine [Mass ratio] 20.7 mg/mg 10-20 [facility] Work Phone: Laboratory - Hematology and Cell countson 11-20-2021 Erythrocyte distribution width (RBC) [Entitic vol] 34.5 fL 35.1-43.9 [facility] Work Phone: Erythrocyte distribution width (RBC) [Ratio] 11.4 % 11.6-14.6 [facility] Work Phone: Immature granulocytes/100 WBC (Bld) 0.100 % 0.0-0.9 [facility] Work Phone: Comment on above: IG% - Immature Granu locytes (promyelocytes, myelocytes and metamyelocytes) > 1% indicates that a LEFT SHIFT is Present. MCH (RBC) [Entitic mass] 29.9 pg 27.0-32.0 [facility] Work Phone: Nucleated RBC/100 WBC (Bld) [Ratio] 0 % 0-5 [facility] Work Phone: MCHC Auto (RBC) [Mass/Vol]on 11-20-2021 MCHC (RBC) [Mass/Vol] 36.3 g/dL 32-36 [facility] Work Phone: No Panel Informationon 11-20 Estimated Creatinine Clearance Calc 54.98 ml/min [facility] Work Phone: Estimated GFR (MDRD) Amer 87 mL/min >60 [facility] Work Phone: Comment on above: GFR Calc Estimated GFR (MDRD) Non-Af Amer 72 mL/min >60 [facility] Work Phone: Comment on above: Non- GFR Calc Platelets bldon 11-20-2021 Platelets (Bld) [#/Vol] 231 10*3/uL 150-450 [facility] Work Phone: Serum or plasma C reactive p rotein measurement (mass/volume)on 11-20-2021 CRP [Mass/Vol] 5.93 mg/L 0.0-3.0 [facility] Work Phone: Comment on above: C-Reactive Protein ( CRP) provides useful information for thediagnosis, therapy and monitoring of inflammatory processesand associated diseases. For the evaluation of Relative Riskfor Cardiovascular Disease, a High Sensitivity CRP (HSCRP)should be ordered. Serum or plasma albumin pavel urement (mass/volume)on 11-20-2021 Albumin [Mass/Vol] 3.7 g/dL 3.2-5.0 [facility] Work Phone: Serum or plasma albumin/glob ulin mass ratioon 11-20-2021 Albumin/Globulin [Mass ratio] 1.0 {ratio} 0.9-2.4 [facility] Work Phone: Serum or plasma calcium pavel urement (mass/volume)on 11-20-2021 Calcium [Mass/Vol] 9.4 mg/dL 8.5-10.1 [facility] Work Phone: Serum or plasma creatinine m easurement (mass/volume)on 11-20-2021 Creatinine [Mass/Vol] 0.82 mg/dL 0.55-1.02 [facility] Work Phone: Comment on above: The validity of the calculated GFR & GFRAA in patients over 70 years has not been determined. Clinical correlation is essential. Serum or plasma transthyreti n measurement (mass/volume)on 11-20-2021 Prealbumin [Mass/Vol] 20.3 mg/dL 20.0-40.0 [facility] Work Phone: Serum or plasma urea nitroge n measurement (mass/volume)on 11-20-2021 Urea nitrogen [Mass/Vol] 17 mg/dL 7-18 [facility] Work Phone: Thin prep Papanicolaou smear with manual screeningon 11-20-2021 Thin prep Papanicolaou smear with manual screening 15 U/L 15-37 [facility] Work Phone: Thin prep Papanicolaou smear with manual screening 6 5-15 [facility] Work Phone: Whole blood hemoglobin A1c/t otal hemoglobin ratio (mass fraction)on 11-20-2021 HbA1c (Bld) [Mass fraction] 7.7 % 3.8-5.6 [facility] Work Phone: Comment on above: Normal < 5.7 % Predi abetic 5.7 - 6.4 % Diabetic >or= 6.5 % Please note range changes. Bacteria identified Anaer cx Nom (Unsp spec)on 11-07-2021 Anaerobic microbial culture No anaerobic bacteria isolated. [facility] Work Phone: Bacteria identified Cx Nom ( Wound)on 11-07-2021 Wound Culture Staphylococcus epidermidis [facility] Work Phone: Wound Culture Staphylococcus auricularis [facility] Work Phone: Gram stain for investigation of transfusion reactionon 11-07-2021 Microscopic observation Gram stain Nom (Unsp spec) [facility] Work Phone: LABORATORYOrdered By: Donte Farris on [...] Anaerobic microbial culture No anaerobic bacteria isolated. [facility] Work Phone: Bacteria identified Cx Nom ( Wound)on 08-08-2021 Wound Culture Staphylococcus epidermidis [facility] Work Phone: Gram stain for investigation of transfusion reactionon 08-08-2021 Microscopic observation Gram stain Nom (Unsp spec) [facility] Work Phone: LABORATORYOrdered By: Laurie Romero on [...] Time Vital Sign Value Performing Clinician Facility 03-04-2025 15:00-0400 Body temperature 97.9 [degF] Dr. Mathieu Roland DO Work Phone: [facility] 03-04-2025 15:00-0400 Diastolic blood pressure 63 mm[Hg] Dr. Mathieu Roland DO Work Phone: [facility] 03-04-2025 15:00-0400 Heart rate 76 /min Dr. Mathieu Roland DO Work Phone: [facility] 03-04-2025 15:00-0400 Respiratory rate 16 /min Dr. Mathieu Roland DO Work Phone: [facility] 03-04-2025 15:00-0400 SaO2% (BldA) [Mass fraction] 99 % Dr. Mathieu Roland DO Work Phone: [facility] 03-04-2025 15:00-0400 Systolic blood pressure 130 mm[Hg] Dr. Mathieu Roland DO Work Phone: [facility] 03-04-2025 05:56-0400 Body mass index (BMI) [Ratio] 27.1 kg/m2 Dr. Mathieu Roland DO Work Phone: [facility] 03-04-2025 05:56-0400 Body weight 73.[address] Mathieu Roland DO Work Phone: [facility] 03-03-2025 09:53-0400 Body height 165.[address] Mathieu Roland DO Work Phone: [facility] 03-02-2025 23:00-0400 Diastolic blood pressure 66 mm[Hg] Dr. Mathieu Roland DO Work Phone: [facility] 03-02-2025 23:00-0400 Heart rate 90 /min Dr. Mathieu Roland DO Work Phone: [facility] 03-02-2025 23:00-0400 Respiratory rate 17 /min Dr. Mathieu Roland DO Work Phone: [facility] 03-02-2025 23:00-0400 SaO2% (BldA) [Mass fraction] 98 % Dr. Mathieu Roland DO Work Phone: [facility] 03-02-2025 23:00-0400 Systolic blood pressure 136 mm[Hg] Dr. Mathieu Roland DO Work Phone: [facility] 03-02-2025 22:20-0400 Body temperature 99.7 [degF] Dr. Mathieu Roland DO Work Phone: [facility] 03-02-2025 19:56-0400 Body mass index (BMI) [Ratio] 27.2 kg/m2 Dr. Mathieu Roland DO Work Phone: [facility] 03-02-2025 19:56-0400 Body weight 74.[address] Mathieu Roland DO Work Phone: [facility] 03-02-2025 17:48-0400 Body height 165.[address] Mathieu Roland DO Work Phone: [facility] 09-16-2022 04:10-0500 Diastolic blood pressure 89 mm[Hg] [facility] 09-16-2022 04:10-0500 Heart rate 83 /min [facility] 09-16-2022 04:10-0500 Respiratory rate 16 /min [facility] 09-16-2022 04:10-0500 SaO2% (BldA) [Mass fraction] 99 % [facility] 09-16-2022 04:10-0500 Systolic blood pressure 154 mm[Hg] [facility] 09-15-2022 23:18-0500 Body height 162.56 cm [facility] 09-15-2022 23:18-0500 Body mass index (BMI) [Ratio] 30.5 kg/m2 [facility] 09-15-2022 23:18-0500 Body temperature 97 [degF] [facility] 09-15-2022 23:18-0500 Body weight 80.73 kg [facility] 01-22-2022 15:45-0400 Body mass index (BMI) [Ratio] 28.6 kg/m2 Dr. Mathieu Roland Work Phone: [facility] Work Phone: 01-22-2022 15:45-0400 Body temperature 97.9 [degF] Dr. Mathieu Roland Work Phone: [facility] Work Phone: 01-22-2022 15:45-0400 Diastolic blood pressure 62 mm[Hg] Dr. Mathieu Roland Work Phone: [facility] Work Phone: 01-22-2022 15:45-0400 Heart rate 77 /min Dr. Mathieu Roland Work Phone: [facility] Work Phone: 01-22-2022 15:45-0400 Systolic blood pressure 134 mm[Hg] Dr. Mathieu Roland Work Phone: [facility] Work Phone: 01-18-2022 15:05-0400 Body temperature 98.1 [degF] Dr. Mathieu Roland Work Phone: [facility] Work Phone: 01-18-2022 15:05-0400 Diastolic blood pressure 67 mm[Hg] Dr. Mathieu Roland Work Phone: [facility] Work Phone: 01-18-2022 15:05-0400 Heart rate 99 /min Dr. Mathieu Roland Work Phone: [facility] Work Phone: 01-18-2022 15:05-0400 Respiratory rate 18 /min Dr. Mathieu Roland Work Phone: [facility] Work Phone: 01-18-2022 15:05-0400 SaO2% (BldA) [Mass fraction] 96 % Dr. Mathieu Roland Work Phone: [facility] Work Phone: 01-18-2022 15:05-0400 Systolic blood pressure 126 mm[Hg] Dr. Mathieu Roland Work Phone: [facility] Work Phone: 01-16-2022 13:09-0400 Body height [address] Mathieu Roland Work Phone: [facility] Work Phone: 01-16-2022 13:09-0400 Body weight 89.[address] Mathieu Roland Work Phone: [facility] Work Phone: 01-16-2022 10:26-0400 Body mass index (BMI) [Ratio] 32.9 kg/m2 Dr. Mathieu Roland Work Phone: [facility] Work Phone: 01-14-2022 22:07-0400 Body temperature 98.6 [degF] Dr. Mathieu Roland Work Phone: [facility] Work Phone: 01-14-2022 22:07-0400 Diastolic blood pressure 67 mm[Hg] Dr. Mathieu Roland Work Phone: [facility] Work Phone: 01-14-2022 22:07-0400 Heart rate 71 /min Dr. Mathieu Roland Work Phone: [facility] Work Phone: 01-14-2022 22:07-0400 Respiratory rate 17 /min Dr. Mathieu Roland Work Phone: [facility] Work Phone: 01-14-2022 22:07-0400 SaO2% (BldA) [Mass fraction] 96 % Dr. Mathieu Roland Work Phone: [facility] Work Phone: 01-14-2022 22:07-0400 Systolic blood pressure 120 mm[Hg] Dr. Mathieu Roland Work Phone: [facility] Work Phone: 01-14-2022 17:40-0400 Body height 165.[address] Mathieu Roland Work Phone: [facility] Work Phone: 01-14-2022 17:40-0400 Body mass index (BMI) [Ratio] 29.1 kg/m2 Dr. Mathieu Roland Work Phone: [facility] Work Phone: 01-14-2022 17:40-0400 Body weight 79.[address] Mathieu Roland Work Phone: [facility] Work Phone: 01-14-2022 16:59-0400 Body temperature 99.14 [degF] IVELISSE REICHFIELD DO [facility] 01-14-2022 16:59-0400 Diastolic blood pressure 63 mm[Hg] IVELISSE REICHFIELD DO [facility] 01-14-2022 16:59-0400 Heart rate 71 /min IVELISSE REICHFIELD DO [facility] 01-14-2022 16:59-0400 Respiratory rate 16 /min IVELISSE REICHFIELD DO [facility] 01-14-2022 16:59-0400 Systolic blood pressure 99 mm[Hg] IVELISSE REICHFIELD DO [facility] 01-08-2022 15:46-0400 Body mass index (BMI) [Ratio] 28.6 kg/m2 Dr. Mathieu Roland Work Phone: [facility] Work Phone: 01-08-2022 15:46-0400 Body temperature 97.2 [degF] Dr. Mathieu Roland Work Phone: [facility] Work Phone: 12-29-2021 00:21-0400 Body weight 78.[address] Mathieu Roland Work Phone: [facility] Work Phone: 12-29-2021 00:21-0400 Diastolic blood pressure 70 mm[Hg] Dr. Mathieu Roland Work Phone: [facility] Work Phone: 12-29-2021 00:21-0400 Heart rate 68 /min Dr. Mathieu Roland Work Phone: [facility] Work Phone: 12-29-2021 00:21-0400 Respiratory rate 18 /min Dr. Mathieu Roland Work Phone: [facility] Work Phone: 12-29-2021 00:21-0400 Systolic blood pressure 172 mm[Hg] Dr. Mathieu Roland Work Phone: [facility] Work Phone: 12-26-2021 15:06-0400 Body mass index (BMI) [Ratio] 28.6 kg/m2 Dr. Mathieu Roland Work Phone: [facility] Work Phone: 12-26-2021 15:06-0400 Body temperature 97.8 [degF] Dr. Mathieu Roland Work Phone: [facility] Work Phone: 12-26-2021 15:06-0400 Diastolic blood pressure 70 mm[Hg] Dr. Mathieu Roland Work Phone: [facility] Work Phone: 12-26-2021 15:06-0400 Heart rate 68 /min Dr. Mathieu Roland Work Phone: [facility] Work Phone: 12-26-2021 15:06-0400 Systolic blood pressure 172 mm[Hg] Dr. Mathieu Roland Work Phone: [facility] Work Phone: 12-19-2021 14:48-0400 Respiratory rate 18 /min Dr. Mathieu Roland Work Phone: [facility] Work Phone: 11-29-2021 00:20-0400 Body weight 78.[address] Mathieu Roland Work Phone: [facility] Work Phone: 11-28-2021 15:18-0400 Body mass index (BMI) [Ratio] 28.6 kg/m2 Dr. Mathieu Roland Work Phone: [facility] Work Phone: 11-28-2021 15:18-0400 Body temperature 98 [degF] Dr. Mathieu Roland Work Phone: [facility] Work Phone: 11-28-2021 15:18-0400 Diastolic blood pressure 69 mm[Hg] Dr. Mathieu Roland Work Phone: [facility] Work Phone: 11-28-2021 15:18-0400 Heart rate 92 /min Dr. Mathieu Roladn Work Phone: [facility] Work Phone: 11-28-2021 15:18-0400 Respiratory rate 18 /min Dr. Mathieu Roland Work Phone: [facility] Work Phone: 11-28-2021 15:18-0400 Systolic blood pressure 144 mm[Hg] Dr. Mathieu Roland Work Phone: [facility] Work Phone: 11-14-2021 15:05-0400 Body mass index (BMI) [Ratio] 28.6 kg/m2 Dr. Mathieu Roland Work Phone: [facility] Work Phone: 11-14-2021 15:05-0400 Body temperature 97.9 [degF] Dr. Mathieu Roland Work Phone: [facility] Work Phone: 11-14-2021 15:05-0400 Diastolic blood pressure 56 mm[Hg] Dr. Mathieu Roland Work Phone: [facility] Work Phone: 11-14-2021 15:05-0400 Heart rate 79 /min Dr. Mathieu Roland Work Phone: [facility] Work Phone: 11-14-2021 15:05-0400 Systolic blood pressure 103 mm[Hg] Dr. Mathieu Roland Work Phone: [facility] Work Phone: 11-07-2021 13:35-0500 Respiratory rate 16 /min Dr. Mathieu Roland Work Phone: [facility] Work Phone: 10-28-2021 23:19-0500 Body weight 78.[address] Mathieu Roland Work Phone: [facility] Work Phone: 10-24-2021 13:48-0500 Body mass index (BMI) [Ratio] 28.6 kg/m2 Dr. Mathieu Roland Work Phone: [facility] Work Phone: 10-24-2021 13:48-0500 Body temperature 96.8 [degF] Dr. Mathieu Roland Work Phone: [facility] Work Phone: 10-24-2021 13:48-0500 Diastolic blood pressure 76 mm[Hg] Dr. Mathieu Roland Work Phone: [facility] Work Phone: 10-24-2021 13:48-0500 Respiratory rate 16 /min Dr. Mathieu Roland Work Phone: [facility] Work Phone: 10-24-2021 13:48-0500 Systolic blood pressure 181 mm[Hg] Dr. Mathieu Roland Work Phone: [facility] Work Phone: 10-17-2021 13:31-0500 Heart rate 75 /min Dr. Mathieu Roland Work Phone: [facility] Work Phone: 09-30-2021 23:13-0500 Body weight 78.[address] Mathieu Roland Work Phone: [facility] Work Phone: 09-26-2021 13:01-0500 Body mass index (BMI) [Ratio] 28.6 kg/m2 Dr. Mathieu Roland Work Phone: [facility] Work Phone: 09-26-2021 13:01-0500 Body temperature 96.6 [degF] Dr. Mathieu Roland Work Phone: [facility] Work Phone: 09-26-2021 13:01-0500 Diastolic blood pressure 64 mm[Hg] Dr. Mathieu Roland Work Phone: [facility] Work Phone: 09-26-2021 13:01-0500 Heart rate 78 /min Dr. Mathieu Roland Work Phone: [facility] Work Phone: 09-26-2021 13:01-0500 Respiratory rate 16 /min Dr. Mathieu Roland Work Phone: [facility] Work Phone: 09-26-2021 13:01-0500 Systolic blood pressure 157 mm[Hg] Dr. Mathieu Roland Work Phone: [facility] Work Phone: 08-30-2021 23:06-0500 Body weight 78.[address] Mathieu Roland Work Phone: [facility] Work Phone: 08-15-2021 11:58-0500 Body mass index (BMI) [Ratio] 28.6 kg/m2 Dr. Mathieu Roland Work Phone: [facility] Work Phone: 08-15-2021 11:58-0500 Body temperature 98.7 [degF] Dr. Mathieu Roland Work Phone: [facility] Work Phone: 08-15-2021 11:58-0500 Diastolic blood pressure 72 mm[Hg] Dr. Mathieu Roland Work Phone: [facility] Work Phone: 08-15-2021 11:58-0500 Heart rate 79 /min Dr. Mathieu Roland Work Phone: [facility] Work Phone: 08-15-2021 11:58-0500 Respiratory rate 16 /min Dr. Mathieu Roland Work Phone: [facility] Work Phone: 08-15-2021 11:58-0500 Systolic blood pressure 176 mm[Hg] Dr. Mathieu Roland Work Phone: [facility] Work Phone: 08-08-2021 14:14-0500 Body height 165.[address] Mathieu Roland Work Phone: [facility] Work Phone: 08-08-2021 14:14-0500 Body weight 78.[address] Mathieu Roland Work Phone: [facility] Work Phone: Encounters Encounter Date Encounter Type Care Provider Facility Start: 06-07-2025 End: 06-07-2025 ambulatory MATHIEU ROLAND DO Facility[place] [place] Start: 06-07-2025 End: 06-07-2025 Patient encounter procedure MARQUISE LEHMAN MD [facility] Start: 04-05-2025 End: 04-05-2025 ambulatory JULIA MIGUEL MD Facility:[facility] [place] Start: 04-05-2025 End: 04-05-2025 Patient encounter procedure JULIA MIGUEL MD [facility] Start: 03-28-2025 End: 03-28-2025 ambulatory ARNOL PEARL [employer] Facility:[facility] Start: 03-28-2025 End: 03-28-2025 Patient encounter procedure ARNOL PEARL [employer]ELOPER [facility] Start: 03-20-2025 End: 03-20-[address] JAMESON GARCIA DO Facility[place] [place] Start: 03-20-2025 End: 03-20-[address] JAMESON GARCIA DO [facility] Start: 03-07-2025 End: 03-07-2025 ambulatory MATHIEU ROLAND DO Facility[place] [place] Start: 03-07-2025 End: 03-07-[address] JAMESON GARCIA DO [facility] Start: 03-04-2025 Non-patient / Non-visit [facility] Work Phone: Start: 03-03-2025 Non-patient / Non-visit Dr[facility] Work Phone: Start: 03-02-2025 ambulatory Eder Sultana ty:[facility] Start: 03-02-2025 End: 03-04-2025 Evaluation and management of inpatient Dr. Eder Lujan DO -[facility] 3 Work Phone: Start: 02-28-2025 End: 02-28-2025 ambulatory MATHIEU ROLAND DO [facility] Start: 02-28-2025 End: 02-28-2025 Patient encounter procedure MATHIEU ROLAND DO [facility] Start: 02-23-2025 End: 02-23-2025 ambulatory MATHIEU ROLAND DO [facility] Start: 02-23-2025 End: 02-23-[address] JAMESON GARCIA DO [facility] Start: 02-21-2025 End: 02-25-[address] JAMESON GARCIA DO Facility[facility] Start: 02-21-2025 End: 02-25-[address] JAMESON GARCIA DO [facility] Start: 02-20-2025 End: 04-07-[address] JAMESON GARCIA DO Facility[facility] Start: 02-20-2025 End: 04-07-[address] JAMESON GARCIA DO [facility] Start: 01-09-2025 End: 01-09-2025 ambulatory MATHIEU ROLAND DO Facility:[facility] Start: 01-09-2025 End: 01-09-2025 Patient encounter procedure MARQUISE LEHMAN MD [facility] Start: 10-12-2024 End: 10-12-2024 ambulatory MATHIEU ROLAND DO [facility] Start: 10-12-2024 End: 10-12-2024 Patient encounter procedure MATHIEU ROLAND DO [facility] Start: 09-05-2024 End: 09-05-2024 ambulatory MATHIEU ROLAND DO Facility[facility] Start: 09-05-2024 End: 09-05-2024 Patient encounter procedure MARQUISE LEHMAN MD [facility] Start: 08-29-2024 End: 08-29-2024 ambulatory MATHIEU ABBOTTY DO Facility:[facility] Start: 08-29-2024 End: 08-29-2024 Patient encounter procedure MATHIEU ABBOTTY DO [facility] Start: 08-03-2024 End: 08-03-2024 ambulatory MATHIEU ABBOTTY DO Facility[facility] Start: 08-03-2024 End: 08-03-2024 Patient encounter procedure MATHIEU ABBOTTY DO [facility] Start: 02-29-2024 End: 02-29-2024 ambulatory MARQUISE LEHMAN MD Facility:[facility] Start: 02-29-2024 End: 02-29-2024 Patient encounter procedure MARQUISE LEHMAN MD [facility] Start: 10-20-2023 End: 10-20-2023 ambulatory MARQUISE LEHMAN MD Facility:[facility] Start: 10-20-2023 End: 10-20-2023 Patient encounter procedure MARQUISE LEHMAN MD [facility] Start: 08-20-2023 End: 08-20-2023 ambulatory MATHIEU ROLAND DO Facility:[facility] Start: 08-20-2023 End: 08-20-2023 Patient encounter procedure MATHIEU ABBOTTY DO [facility] Start: 06-23-2023 End: 06-23-2023 ambulatory MATHIEU ROLAND DO Facility:[facility] Start: 02-12-2023 End: 02-12-2023 Patient encounter procedure MARQUISE LEHMAN MD [facility] Start: 10-29-2022 End: 10-29-2022 ambulatory [facility] Work Phone: Start: 10-29-2022 End: 10-29-2022 Patient encounter procedure [facility]Laboratory, Specimen Start: 09-25-2022 End: 09-25-2022 Patient encounter procedure MARQUISE LEHMAN MD [facility] Start: 09-15-2022 End: 09-16-2022 Emergency department patient visit [facility] Start: 06-02-2022 End: 06-02-2022 Patient encounter procedure MATHIEU ROLAND DO [facility] Start: 04-28-2022 End: 04-28-2022 Patient encounter procedure MARQUISE LEHMAN MD [facility] Start: 03-05-2022 End: 03-05-2022 Patient encounter procedure MARQUISE LEHMAN MD [facility] Start: 01-22-2022 End: 01-28-[address] Mathieu Roland Work Phone: [facility] Start: 01-18-2022 Non-patient / Non-visit Dr. Mathieu Roland Work Phone: [facility] Start: 01-17-2022 Non-patient / Non-visit Dr. Mathieu Roland Work Phone: [facility] Start: 01-16-2022 Non-patient / Non-visit Dr. Mathieu Roland Work Phone: [facility] Start: 01-15-2022 Non-patient / Non-visit Dr. Mathieu Roland Work Phone: [facility] Start: 01-14-2022 End: 01-18-2022 Evaluation and management of inpatient Dr. Mathieu Roland Work Phone: [facility] 3 Start: 01-14-2022 Non-patient / Non-visit Dr. Mathieu Roland Work Phone: [facility] Start: 01-14-2022 End: 01-14-2022 Emergency department patient visit IVELISSE SIGALA DO [facility] Start: 01-13-[address] Delgadillo in [place] [facility] [place] Start: 01-10-2022 End: 01-14-[address] DO [facility] Start: 12-26-2021 Non-patient / Non-visit Dr. Mathieu Roland Work Phone: [facility] Start: 12-26-2021 End: 12-28-[address] Mathieu Roland Work Phone: [facility] Start: 12-20-2021 End: 12-20-2021 Patient encounter procedure MATHIEU ROLAND DO [facility] Start: 12-19-2021 Non-patient / Non-visit Dr. Mathieu Roland Work Phone: [facility] Start: 12-12-2021 Non-patient / Non-visit Dr. Mathieu Roland Work Phone: [facility] Start: 11-28-2021 Non-patient / Non-visit Dr. Mathieu Roland Work Phone: [facility] Start: 11-28-2021 End: 11-28-[address] [facility] Roland [facility] Start: 11-21-2021 Non-patient / Non-visit Dr. Mathieu Roland Work Phone: [facility] Start: 11-21-2021 End: 11-28-[address] Mathieu Roland Work Phone: [facility] Start: 11-14-2021 Non-patient / Non-visit Dr. Mathieu Roland Work Phone: [facility] Start: 11-14-[address] Leona Roland Work Phone: [facility] Start: 11-12-2021 End: 11-12-[address] Mathieu Roland Work Phone: [facility] Start: 11-07-2021 Non-patient / Non-visit Dr. Mathieu Roland Work Phone: [facility] Start: 10-31-2021 Non-patient / Non-visit Dr. Mathieu Roland Work Phone: [facility] Start: 10-24-2021 Non-patient / Non-visit Dr. Mathieu Roland Work Phone: [facility] Start: 10-24-2021 End: 10-28-[address] Math[facility] Roland [facility] Start: 10-17-2021 Non-patient / Non-visit Dr. Mathieu Roland Work Phone: [facility] Start: 10-16-2021 End: 10-16-2021 Patient encounter procedure MARQUISE LEHMAN MD [facility] Start: 10-15-2021 End: 10-15-2021 Patient encounter procedure MARQUISE LEHMAN MD [facility] Start: 10-10-2021 Non-patient / Non-visit Dr. Mathieu Roland Work Phone: [facility] Start: 09-26-2021 Non-patient / Non-visit Dr. Mathieu Roland Work Phone: [facility] Start: 09-26-2021 End: 09-30-[address] Mathieu Roland Work Phone: [facility] Start: 09-19-2021 Non-patient / Non-visit Dr. Mathieu Roland Work Phone: [facility] Start: 09-12-2021 Non-patient / Non-visit Dr. Mathieu Roland Work Phone: [facility] Start: 09-05-2021 Non-patient / Non-visit Dr. Mathieu Roland Work Phone: [facility] Start: 08-15-2021 Non-patient / Non-visit Dr. Mathieu Roland Work Phone: [facility] Start: 08-15-2021 End: 08-30-[address] Mathieu Roland Work Phone: [facility] Start: 08-13-2021 End: 08-13-[address] JAMESON GARCIA DO [facility] Start: 08-08-2021 Non-patient / Non-visit Dr. Mathieu Roland Work Phone: [facility] Start: 07-19-2021 End: 07-19-[address] JAMESON GARCIA DO [facility] Start: 06-19-2021 End: 06-19-2021 Patient encounter procedure MARQUISE LEHMAN MD [facility] Procedures Date Procedure Procedure Detail Performing Clinician Start: 03-04-2025 [address] diff[address] e detection Dr. Mathieu Roland DO Work Phone: Start: 03-04-[address] Mathieu Roland DO Work Phone: Start: 03-04-[address] Mathieu Roland DO Work Phone: Start: 03-04-2025 Iadna-dna/rna gi pth gn multiplex probe tq 6-11 Dr. Mathieu Roland DO Work Phone: Start: 03-04-[address] Mathieu Roland DO Work Phone: Start: 03-04-2025 Serum inorganic phos phate measurement Dr. Mathieu Roland DO Work Phone: Start: 03-02-2025 Osmolality measureme nt, serum Dr. Mathieu Roland DO Work Phone: Start: 03-02-[address] Mathieu Roland DO Work Phone: Start: 03-02-2025 Urnls dip stick/tabl et reagent auto microscopy Dr. Mathieu Roland DO Work Phone: Start: 03-02-2025 CT of head without contrast Dr. Mathieu Roland DO Work Phone: Start: 03-02-[address] Leona Roland DO Work Phone: Start: 09-16-2022 CT of abdomen and pe [...] Treatment Date Care Activity Detail Author Start: 03-04-2025 Patient discharge [facility] Start: 03-03-2025 Application of intermittent pneumatic compression device [facility] Start: 03-03-2025 Patient referral to dietitian [facility] Start: 03-02-2025 Assessment of risk of venous thromboembolism [facility] Start: 03-02-2025 Insertion of catheter into peripheral vein [facility] Start: 03-02-2025 Measuring intake and output [facility] Start: 03-02-2025 Oxygen therapy [facility] Start: 03-02-2025 Providing care according to standard [facility] Start: 03-02-2025 Provision of activity privileges [facility] Start: 03-02-2025 Referral to occupational therapist [facility] Start: 03-02-2025 Referral to service [facility] Start: 03-02-2025 Seizure precautions [facility] Start: 03-02-2025 [facility] Start: 03-02-2025 Following clinical pathway protocol [facility] Start: 03-02-2025 Clostridioides difficile DNA [Presence] in Unspecified specimen by JACOB with probe detection [facility] Start: 03-02-2025 Enteric precautions [facility] Start: 03-02-2025 Lactoferrin [Presence] in Stool by Immunoassay [facility] Start: 03-02-2025 Nucleic acid assay [facility] Start: 03-02-2025 Verification routine [facility] Start: 03-02-2025 Admission procedure [facility] Start: 03-02-2025 Hospital admission, emergency, from emergency room, medical nature [facility] Start: 03-02-2025 End: 03-02-2025 [facility] Start: 03-02-2025 Bacteria identified in Urine by Culture Urine Culture [facility] Start: 01-16-2022 Fungal Culture Fungal Culture [facility] Work Phone: Start: 01-16-2022 Fungal Smear Fungal Smear [facility] Work Phone: Start: 01-14-2022 Bacteria identified in Blood by Culture Blood Culture [facility] Work Phone: Start: 01-14-2022 Microscopic observation [Identifier] in Unspecified specimen by Gram stain Gram Stain [facility] Work Phone: Start: 01-14-2022 Wound Culture Wound Culture [facility] Work Phone: Start: 12-26-2021 Anaerobic Culture Anaerobic Culture [facility] Work Phone: Start: 12-26-2021 Microbial culture, routine Wound Culture [facility] Work Phone: Ova OR parasites identification [facility] Patient Education ED Gastroenter itis, Viral (Adult) [facility] Work Phone: Patient referral [facility] Work Phone: Urine culture [facility] Immunizations Immunization Date Immun[facility] Notes [facility] Covid (Spikevax) Dr. Mathieu Roland DO Work Phone: [facility] 08-03-2024 influenza virus vaccine, unspecified formulation DR JAMESON GARCIA DO [facility] 08-03-2024 influenza, high dose seasonal, preservative-free Dr. Mathieu Roland DO Work Phone: [facility] 08-03-2024 RSV Adult Recombinan t (Arexvy) Dr. Mathieu Roland DO Work Phone: [facility] 08-03-2024 RSV vaccine preF3, recombinant DR JAMESON GARCIA DO [facility] 08-03-2024 SARS-CoV-2 (COVID-19 ) [id number] DR JAMESON GARCIA DO [facility] 06-25-2023 Covid (Spikevax) Dr. Mathieu Roland DO Work Phone: [facility] 06-25-2023 SARS-CoV-2 (COVID-19 ) [id number] MATHIEU ROLAND DO [facility] 04-22-2023 Influenza High-Dose Quadrivalent Dr. Mathieu Roland DO Work Phone: [facility] 04-22-2023 influenza virus vaccine, unspecified formulation MATHIEU ROLAND DO [facility] 04-22-2023 pneumococcal 20-sandro nt conjugate vaccine MATHIEU ROLAND DO [facility] 04-22-2023 Pneumococcal Vaccine PCV20 (Prevnar 20) Dr. Mathieu Roland DO Work Phone: [facility] 06-24-2022 influenza virus vaccine, unspecified formulation MARQUISE LEHMAN MD [facility] 06-24-2022 influenza, injectabl e, quadrivalent, preservative free Dr. Mathieu Roland DO Work Phone: [facility] 12-17-2021 Covid (Moderna) Dr. Mathieu Roland Work Phone: [facility] 07-31-2021 SARS-CoV-2 (COVID-19 ) [id number] vaccine MARQUISE LEHMAN MD [facility] 06-19-2021 Influenza High-Dose Quadrivalent Dr. Mathieu Roland DO Work Phone: [facility] 06-19-2021 influenza virus vaccine, unspecified formulation MARQUISE LEHMAN MD [facility] 11-09-2020 COVID-19, mRNA, LNP- S, PF, 100 mcg/ 0.5 mL dose; Translations: [Moderna COVID-19 Vaccine] MARQUISE LEHMAN MD [facility] 10-12-2020 COVID-19, mRNA, LNP- S, PF, 100 mcg/ 0.5 mL dose; Translations: [Moderna COVID-19 Vaccine] MARQUISE LEHMAN MD [facility] 05-16-2020 influenza virus vaccine, unspecified formulation MARQUISE LEHMAN MD [facility] 05-16-2020 influenza, injectabl e, quadrivalent, preservative free Dr. Mathieu Roland DO Work Phone: [facility] 06-04-2019 influenza virus vaccine, unspecified formulation MARQUISE LEHMAN MD [facility] 01-12-2019 zoster vaccine recombinant MARQUISE LEHMAN MD [facility] 12-24-2018 pneumococcal polysaccharide vaccine, 23 valent MARQUISE LEHMAN MD [facility] 06-07-2018 influenza virus vaccine, unspecified formulation MARQUISE LEHMAN MD [facility] 03-23-2018 tetanus toxoid, redu jo diphtheria toxoid, and acellular pertussis vaccine, adsorbed MARQUISE LEHMAN MD [facility] 05-20-2017 influenza virus vaccine, unspecified formulation MARQUISE LEHMAN MD [facility] 05-20-2017 pneumococcal conjuga te vaccine, 13 valent MARQUISE LEHMAN MD [facility] 05-01-2017 influenza virus vaccine, unspecified formulation MARQUISE LEHMAN MD [facility] 05-01-2017 influenza, seasonal, injectable, preservative free Dr. Mathieu Roland DO Work Phone: [facility] 05-01-2017 pneumococcal conjuga te vaccine, 13 tyler LEHMAN MD [facility] 04-30-2017 pneumococcal conjuga te vaccine, 13 tyler LEHMAN MD [facility] 06-04-2016 influenza virus vaccine, unspecified formulation MARQUISE LEHMAN MD [facility] 06-04-2016 influenza, high dose seasonal, preservative-free Dr. Mathieu Roland DO Work Phone: [facility] 08-31-2014 influenza virus vaccine, unspecified formulation MARQUISE LEHMAN MD [facility] 08-31-2014 influenza, injectabl e, quadrivalent, preservative free Dr. Mathieu Roland DO Work Phone: [facility] 08-31-2010 TD(adult) unspecifie d formulation Dr. Mathieu Roland DO Work Phone: [facility] Payers Date Payer Category Payer Self-pay [id number] 2025 Private Health Insurance c [id number] 2024 Medicare [id number] 2016 Unknown [id number] 1950 Unknown [id number] 2.16.8 40.1.018810.3.579.2.627 1948 Unknown [id number] 2.16.8 40.1.150469.3.579.2.62 1948 Unknown [id number] 2.16.8 40.1.326689.3.579.2.62 1948 Unknown [id number] 2.16.8 40.1.871031.3.579.2.62 1948 Unknown [id number] 2.16.8 40.1.211527.3.579.2. 1948 Unknown [id number] 2.16. 840.1.505840.3.579.2.62 1948 Unknown [id number] 2.16. 840.1.704926.3.579.2.62 1948 Unknown [id number] 2.16. 840.1.609049.3.579.2.62 1948 Unknown [id number] 2.16. 840.1.629609.3.579.2.62 1948 Unknown [id number] 2.16. 840.1.676606.3.579.2.62 1948 Unknown [id number] 2.16. 840.1.363607.3.579.2.62 1948 Unknown [id number] 2.16. 840.1.165706.3.579.2.62 1948 Unknown [id number] 2.16. 840.1.295292.3.579.2.62 1948 Unknown [id number] 2.16. 840.1.276887.3.579.2.627 1948 Unknown [id number] 2.16.8 40.1.901605.3.579.2.627 1948 Unknown [id number] 2.16.8 40.1.030153.3.579.2.627 1948 Unknown [id number] 2.16.8 40.1.984830.3.579.2.627 1948 Unknown [id number] 2.16.8 40.1.311019.3.579.2.627 1948 Unknown [id number] 2.16.8 40.1.166982.3.579.2.627 1948 Unknown [id number] 2.16.8 40.1.326251.3.579.2.627 Unknown [id number] 2.16.8 40.1.428331.3.579.2.462 Unknown [id number] 2.16.8 40.1.517548.3.579.2.462 Unknown [id number] 2.16.8 40.1.220273.3.579.2.462 Unknown [id number] 2.16.8 40.1.271881.3.579.2.462 Social History Date Type Detail Facility Start: 09-12-2020 End: 05-16-2025 Never smoked tobacco (finding) [facility] Start: 1950 Sex Assigned At Female A [facility] Start: 08-08-2021 End: 09-15-2022 Tobacco smoking status NHIS Unknown if ever smoked [facility] Start: 07-12-2020 None [facility] Start: 07-16-2020 Spouse/ Signif icant Other [facility] Start: 07-16-2020 Non-smoker;Secondhand [facility] Sexual Orientation Helioespinoza riley [facility] Start: 02-23-2019 Sex Female (finding) [facility] Goals Date Patient Goal Desired Activity /State Functional Status Date Assessment Result Facility 03-04-2025 Functional status Chair [facility] Work Phone: 01-18-2022 Functional status Ambulates [facility] Work Phone: Mental Status Date Assessment Result Facility 03-04-2025 Cognitive function Voice/Name [facility] Work Phone: 03-02-2025 Cognitive function Level Of Cons ciousness Awake;Alert;Appropriate;Follow s Commands [facility] Work Phone: 01-18-2022 Cognitive function Level Of Consciousness Drowsy [facility] Work Phone: 01-17-2022 Cognitive function Voice/Name [facility] Work Phone: Clinical Notes 06-02-2022 to 03-20-2025 Note Date & Type Note Facility 03-20-2025 Note Exam Date Time Procedure Performing Provider Status 03/20/25 4:38 PM Echocardiogram, Adult - CV SHORTY CHIN MD; Auth (Verified) [facility]07-05-2025 Discharge summary Author Brittany Yarbrough [facility] Note Date/Time March 04, 2025 2:34p m [facility] Medical Records Department [address] [place] [address] Discharge Summary 03/04/25 1312 MR#: [id number] Acct: [id number] Name: RAGHAV GREGORY Rep #:[id number] : 1950 74 From: Brittayn Yarbrough DO PCP: Dr. Mathieu Roland DO Status:ADM IN Location: [id number] Providers Date of Admission: 03/02/25 Date of Discharge: 03/04/25 Primary Care Physician: Dr. Mathieu Roland DO Reason For Visit: HYPONATREMIA, ADR TO HCTZ & UTI Diagnosis Discharge Diagnosis (1) Ambulatory dysfunction: Status: Acute Code(s): R26.2 - Difficulty in walking, not elsewhere classified (2) Acute cystitis without hematuria: Status: Acute Code(s): N30.00 - Acute cystitis without hematuria (3) Watery diarrhea: Status: Acute Code(s): R19.7 - Diarrhea, unspecified (4) Acute hyponatremia: Status: Acute Code(s): E87.1 - Hypo-osmolality and hyponatremia (5) Adverse drug reaction: Status: Acute Code(s): T50.905A - Adverse effect of unspecified drugs, medicaments and biological substances, initial encounter Qualifiers: Encounter type: initial encounter Qualified Code(s): T50.905A - Adverseeffect of unspecified drugs, medicaments and biological substances, initial encounter (6) Generalized weakness: Status: Acute Code(s): R53.1 - Weakness Plan Acute hyponatremia - Improving and now up to 131 from 125 - Continue to hold hydrochlorothiazide and will likely discontinue at discharge - Will go ahead and stop IV fluids for now as patient's oral intake is adequate - Repeat BMP in a.m. Abnormal UA - Highly suspected for infection - Continue ceftriaxone - Await culture results and narrow accordingly Diarrhea - Patient has had no loose stool since she was admitted. States she took some outpatient Imodium - She also states that this is not a new issue for her - Will collect stool sample if we can to rule out enteric pathologies and C. difficile if not and this is ongoing recommend outpatient GI follow-up Atrial fibrillation - Continue apixaban - Patient is rate controlled without any medication Essential hypertension/hyperlipidemia - Continue home amlodipine, ramipril - Hold HCTZ - Continue home rosuvastatin Hypothyroidism - Continue home levothyroxine - TSH is within normal limits Neuropathy - Continue home gabapentin Generalized anxiety - Continue home Xanax RN DVT prophylaxis - Continue home apixaban CODE STATUS Full code Medications at Discharge Home Medications alprazolam 0.5 mg tablet 0.5 mg PO TID PRN PRN Anxiety 07/16/20 clopidogrel 75 mg tablet 75 mg PO DAILY anti platelet 07/16/20 ergocalciferol (vitamin D2) 1,250 mcg (50,000 unit) capsule 1.25 unit PO QWEEK PRN supplement 07/16/20 furosemide 40 mg tablet 40 mg PO DAILY fluid 07/16/20 gabapentin 600 mg tablet 600 mg PO BIDCM neuropathy 07/16/20 hydrocodone-acetaminophen 5-325mg 5mg-325mg 1 ea PO BID PRN PRN Not Specified 07/16/20 levothyroxine 50 mcg tablet 50 mcg PO DAILY thyroid 07/16/20 potassium chloride 20 mEq tablet,extended release(part/cryst) 20 meq PO DAILYCM #30 tabs 07/19/20 metoclopramide HCl 10 mg tablet (Reglan) 10 mg PO Q6H PRN nausea and vomiting #14 tabs 09/16/22 amlodipine 5 mg tablet 5 mg PO DAILY #30 tabs 08/22/23 ramipril 10 mg capsule 20 mg PO DAILY BP 03/02/25 rosuvastatin 10 mg tablet 10 mg PO DAILY cholesterol 03/02/25 apixaban 5 mg tablet (Eliquis) 2.5 mg (1/2 x 5 mg) PO BID #0 tabs 03/04/25 cephalexin 500 mg capsule 500 mg PO BID #2 caps 03/04/25 Hospital Course Operations None Procedures - (CT brain) Summary of Care Provided Minutes Spent on Discharge: 36 Hospital Course: Mrs. Gregory is a debilitated 74-year-old white female who reported to the emergency department [facility] on 03/29/2025 with chief complaint of generalized weakness and falls. She also has been having watery diarrhea. That had been attributed to adverse reactions to semaglutide which has been discontinued. She feels that overall the diarrhea she was experiencingwas better but she still is having some intermittent diarrhea and felt like she became weaker than she has at baseline. She does receive regular physical therapy as an outpatient due to her decreased strength. She states she has chronic low back pain and is wheelchair- bound the morning but as the day goes onher pain subsides and she is able to ambulate some with a walker. This was worse than her baseline and she had 2 falls prior to presentation so she like the emergency department. One of the falls are Got caught between the leg and caused her to trip and fall hitting her head. She did have a bruise over her left eye related to this fall but had no other injury. Patient did not find having any previous issues with hyponatremia. Other than her diarrhea she had only some urinary frequency. Vital signs on presentation showed a temperature of 97.3, heart rate 68, respiratory rate 18, blood pressure 116/54 and pulse ox was 90% room air. CBC was unremarkable. Chemistry panel showed hyponatremia sodium of 125 and hypochloremia with a chloride of 93. Blood glucose was 196. UA was suggestive of infection having small occult blood, leuk esterase, greaterthan 100 white cells and 4+ bacteria. Liver functions were normal. CT of the brain was done due to fall no acute cranial abnormalities were noted. She was admitted to the medical surgical floor and hydrated. Her HCTZ was held due to hyponatremia and she was started on IV antibiotics after culture was sent, as there was concern for urinary tract infection. With time her strength slowly improved. She did complain of a tremor initially on March 03 but this had completely resolved and she was back to her baseline on March 04. She stated she was at 100% better than arrival and was anxious to go home on 03/04/2025. Her blood pressures overall were not bad off her HCTZ. Will go ahead and restart her Lasix but keep her off HCTZ. I have encouraged her to follow-up with her primary care physician next week and she should have a repeat BMP to ensure stability of her sodium levels with reinitiation of Lasix. I did not start a new antihypertensive on her her at this time as her systolic blood pressures were predominantly in the 130s. If she maintains this or higher she may need anincrease in her amlodipine or a new medication. I will leave this up to her primary care physician follow-up. She did complain of watery diarrhea and we did obtain enteric panel and C. difficile. These were all negative. Lactoferrin was unremarkable. Patient was discharged home on 03/04/2025 in stablecondition. If her loose stool/diarrhea continue to be an issue she should have outpatient follow-up with gastroenterology. With regards to urinary tract infection that showed mixed organisms however she was symptomatic so I will go ahead and complete treatment with 1 more day of antibiotics for an uncomplicatedUTI. Keflex was sent to local pharmacy at the time of discharge. Discharge diagnoses: Acute hyponatremia Adverse drug reaction-HCTZ Acute uncomplicated UTI Diarrhea Atrial fibrillation Essential hypertension Hyperlipidemia Hypothyroidism Neuropathy Generalized anxiety Physical Exam Narrative Patient states she feels 100% better than when she got here. Tremor has resolved and she is anxious to go home for [place] in [place]. Const alert, oriented x3, no apparent distress, average body habitus, no limitations, healthy appearing and well nourished Constitutional Narrative: Very pleasant, older, white female, transitioning to the bedside commode with nurses aide using a wheeled walker, appears comfortable, nontoxic General Appearance: cooperative, comfortable, well kempt and well developed Exam Limitations: no limitations Nutritional Appearance: overweight HEENT normocephalic, head/scalp atraumatic and moist oral mucous membranes HEENT Narrative: Mallampati 2, no thrush Eyes conjunctivae normal Eyes Narrative: No scleral icterus Neck supple Neck Narrative: Trachea midline Resp normal respiratory effort, no retractions, no use of accessory muscles and clearto auscultation bilaterally Auscultation: Negative for rales, rhonchi or wheezes Cardio regular rate, regular rhythm, S1 normal heart sound, S2 normal heart sound, no murmurs, no rub, no gallops and no clicks GI normal to inspection, nondistended, normoactive bowel sounds, soft to palpation and non-tender Extremity no clubbing, cyanosis or edema Extremity Narrative: 2+ pedal pulses Skin skin turgor normal and no jaundice Skin Narrative: Bilateral lower extremity chronic venous stasis 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6 L, MCV 89.5, MCH 31.3, MCHC 35.0, RDW Std Deviation 39.0, RDW Coeff of Pedro 11.9, Plt Count 112 L, MPV 10.5, Sodium 136, Potassium 4.1, Chloride 103, Carbon Dioxide 23.0, Anion Gap 10, BUN 5, Creatinine 0.67 L, Estim Creat Clear Calc 60.18, Est GFR (MDRD) Non-Af 91, BUN/Creatinine Ratio 7.3 L, Glucose 183 H, Calcium 8.6, Phosphorus 3.2, Magnesium 1.8 Microbiology: Microbiology 03/04/25 10:50 Stool Stool Lactoferrin - Final 03/04/25 10:50 Stool Clostridioides difficile (PCR) - Final 03/02/25 19:55 Interface Orders Urine Culture - Final Mixed Gram Pos & Gram Neg Org D/C Instructions Discharge Diet: Low fat / Low cholesterol and 1800 Calorie Control Diet Discharge Activity: Return to Normal Activity and Use Walker DC O2, CPAP, BIPAP Needs Home O2 Discharge instructions: No DC home with Oxygen: No Meaningful Use Info Meaningful Use Meaningful Use Diagnoses (Choose all that apply): None applicable Ischemic Stroke Statin Dosing Therapy Reference: STATIN DOSE THERAPY REFERENCE: * Patients > 75 years receive moderate or high dose statin therapy. * Patients 75 years or YOUNGER should receive HIGH intensity statin dose unless contraindicated. You will be required to document reason for non-treatment if statin daily dose does not meet guidelines. HIGH DOSE STATIN THERAPY DAILY Atorvastatin > than or = to 40 mg Rosuvastatin > than or = to 20 mg Amlodipine + Atorvastatin > than or = to 2.5/40 mg Ezetimibe + Simvastatin 10/80 mg Simvastatin 80mg Discharge Plan Admission Admit Date/Time: 03/02/25 22:54 Primary Reason for Your Visit: Hyponatremia/generalized weakness Attending Provider: Brittany Yarbrough Primary Care Provider: Mathieu Roland Consulting Providers: Eder Lujan Instructions Additional Instructions / Restrictions: 1. Please stop taking your hydrochlorothiazide as I suspect this in combinationwith your Lasix caused your sodium levels to drop 2. Please follow-up with your outpatient primary care physician to have your blood pressure reevaluated. Your blood pressure while here was not markedly elevated despite discontinuing HCTZ so you may not need new medication but need follow-up to ensure that this is the case 3. Continue your ongoing outpatient physical therapy 4. Okay to use as needed Imodium for loose stool and if this is persistent would recommend outpatient follow-up with a cashier general Discharge Orders/Prescriptions Prescriptions: New Eliquis 5 mg Tablet 2.5 mg PO BID Qty: 0 0RF cephalexin 500 mg capsule 500 mg PO BID Qty: 2 0RF Continued furosemide 40 MG tablet 40 mg PO DAILY gabapentin 600 MG tablet 600 mg PO BIDCM hydrocodone-acetaminophen 1 EACH tablet 1 ea PO BID PRN PRN (Reason: Not Specified) clopidogrel 75 MG tablet 75 mg PO DAILY levothyroxine 50 MCG tablet 50 mcg PO DAILY alprazolam 0.5 MG tablet 0.5 mg PO TID PRN PRN (Reason: Anxiety) ergocalciferol (vitamin D2) 50,000 UNIT capsule 1.25 unit PO QWEEK PRN (Reason: supplement) Rx Instructions: takes Fridays potassium chloride 20 MEQ tablet 20 meq PO DAILYCM Qty: 30 0RF Rx Instructions: Take with furosemide/Lasix metoclopramide HCl [Reglan] 10 mg tablet 10 mg PO Q6H PRN (Reason: nausea and vomiting) Qty: 14 0RF amlodipine 5 mg tablet 5 mg PO DAILY Qty: 30 0RF rosuvastatin 10 mg tablet 10 mg PO DAILY ramipril 10 mg capsule 20 mg PO DAILY Discontinued hydrochlorothiazide 25 mg Tablet 25 mg PO DAILY Referrals / Follow Up: Mathieu Roland DO [Primary Care Provider] - Within 1 Week Disposition Disposition (needs filled in before D/C Order can be placed): Home, Self Care Charges/Coding Visit Charges Inpatient E&M: 23025 Disch Hosp >30min 03/04/25 1434 <Electronically signed by Brittany Yarbrough DO> Cosigner Signature (if applicable): CC: Dr. Brittany Yarbrough DO; Dr. Mathieu Roland DO~ Signed [facility] Work Phone: 1(283) 438-714307-05-2025 Discharge summary [facility] Medical Records Department [address] [place] [address] Discharge Summary 03/04/25 1312 MR#: [id number] Acct: [id number] Name: RAGHAV GREGORY Rep #:[id number] : 1950 74 From: Brittany Yarbrough DO PCP: Dr. Mathieu Roland DO Status:ADM IN Location[place] [id number] Providers Date of Admission: 03/02/25 Date of Discharge: 03/04/25 Primary Care Physician: Dr. Mathieu Roland DO Reason For Visit: HYPONATREMIA, ADR TO HCTZ & UTI Diagnosis Discharge Diagnosis (1) Ambulatory dysfunction: Status: Acute Code(s): R26.2 - Difficulty in walking, not elsewhere classified (2) Acute cystitis without hematuria: Status: Acute Code(s): N30.00 - Acute cystitis without hematuria (3) Watery diarrhea: Status: Acute Code(s): R19.7 - Diarrhea, unspecified (4) Acute hyponatremia: Status: Acute Code(s): E87.1 - Hypo-osmolality and hyponatremia (5) Adverse drug reaction: Status: Acute Code(s): T50.905A - Adverse effect of unspecified drugs, medicaments and biological substances, initial encounter Qualifiers: Encounter type: initial encounter Qualified Code(s): T50.905A - Adverseeffect of unspecified drugs,medicaments and biological substances, initial encounter (6) Generalized weakness: Status: Acute Code(s): R53.1 - Weakness Plan Acute hyponatremia - Improving and now up to 131 from 125 - Continue to hold hydrochlorothiazide and will likely discontinue at discharge - Will go ahead and stop IV fluids for now as patient's oral intake is adequate - Repeat BMP in a.m. Abnormal UA - Highly suspected for infection - Continue ceftriaxone - Await culture results and narrow accordingly Diarrhea - Patient has had no loose stool since she was admitted. States she took some outpatient Imodium - She also states that this is not a new issue for her - Will collect stool sample if we can to rule out enteric pathologies and C. difficile if not and this is ongoing recommend outpatient GI follow-up Atrial fibrillation - Continue apixaban - Patient is rate controlled without any medication Essential hypertension/hyperlipidemia - Continue home amlodipine, ramipril - Hold HCTZ - Continue home rosuvastatin Hypothyroidism - Continue home levothyroxine - TSH is within normal limits Neuropathy - Continue home gabapentin Generalized anxiety - Continue home Xanax RN DVT prophylaxis - Continue home apixaban CODE STATUS Full code Medications at Discharge Home Medications alprazolam 0.5 mg tablet 0.5 mg PO TID PRN PRN Anxiety 07/16/20 clopidogrel 75 mg tablet 75 mg PO DAILY anti platelet 07/16/20 ergocalciferol (vitamin D2) 1,250 mcg (50,000 unit) capsule 1.25 unit PO QWEEK PRN supplement 07/16/20 furosemide 40 mg tablet 40 mg PO DAILY fluid 07/16/20 gabapentin 600 mg tablet 600 mg PO BIDCM neuropathy 07/16/20 hydrocodone-acetaminophen 5-325mg 5mg-325mg 1 ea PO BID PRN PRN Not Specified 07/16/20 levothyroxine 50 mcg tablet 50 mcg PO DAILY thyroid 07/16/20 potassium chloride 20 mEq tablet,extended release(part/cryst) 20 meq PO DAILYCM #30 tabs 07/19/20 metoclopramide HCl 10 mg tablet (Reglan) 10 mg PO Q6H PRN nausea and vomiting #14 tabs 09/16/22 amlodipine 5 mg tablet 5 mg PO DAILY #30 tabs 08/22/23 ramipril 10 mg capsule 20 mg PO DAILY BP 03/02/25 rosuvastatin 10 mg tablet 10 mg PO DAILY cholesterol 03/02/25 apixaban 5 mg tablet (Eliquis) 2.5 mg (1/2 x 5 mg) PO BID #0 tabs 03/04/25 cephalexin 500 mg capsule 500 mg PO BID #2 caps 03/04/25 Hospital Course Operations None Procedures - (CT brain) Summary of Care Provided Minutes Spent on Discharge: 36 Hospital Course: Mrs. Gregory is a debilitated 74-year-old white female who reported to the emergency department [facility] on 03/29/2025 with chief complaint of generalized weakness and falls. She alsohas been having watery diarrhea. That had been attributed to adverse reactions to semaglutide whichhas been discontinued. She feels that overall the diarrhea she was experiencingwas better but she still is having some intermittent diarrhea and felt like she became weaker than she has at baseline. She does receive regular physical therapy as an outpatient due to her decreased strength. She statesshe has chronic low back pain and is wheelchair-bound the morning but as the day goes onher pain subsides and she is able to ambulate some with a walker. This was worse than her baseline and she had 2 falls prior to presentation so she like the emergency department. One of the falls are Got caught between the leg and caused her to trip and fall hitting her head. She did have a bruise over her left eye related to this fall but had no other injury. Patient did not find having any previous issues with hyponatremia. Other than her diarrhea she had only some urinary frequency. Vital signs on presentation showed a temperature of 97.3, heart rate 68, respiratory rate 18, blood pressure 116/54 and pulse ox was 90% room air. CBC was unremarkable. Chemistry panel showed hyponatremia sodium of 125 and hypochloremia with a chloride of 93. Blood glucose was 196. UA was suggestive of infection havingsmall occult blood, leuk esterase, greaterthan 100 white cells and 4+ bacteria. Liver functions were normal. CT of the brain was done due to fall no acute cranial abnormalities were noted. She was admitted to the medical surgical floor and hydrated. Her HCTZ was held due to hyponatremia and she wasstarted on IV antibiotics after culture was sent, as there was concern for urinary tract infection.With time her strength slowly improved. She did complain of a tremor initially on March 03 but this had completely resolved and she was back to her baseline on March 04. She stated she was at 100% better than arrival and was anxious to go home on 03/04/2025. Her blood pressures overall were not bad off her HCTZ. Will go ahead and restart her Lasix but keep her off HCTZ. I have encouraged her to follow-up with her primary care physician next week and she should have a repeat BMP to ensure stability ofher sodium levels with reinitiation of Lasix. I did not start a new antihypertensive on her her at this time as her systolic blood pressures were predominantly in the 130s. If she maintains this or higher she may need anincrease in her amlodipine or a new medication. I will leave this up to her primary care physician follow-up. She did complain of watery diarrhea and we did obtain enteric panel and C. difficile. These were all negative. Lactoferrin was unremarkable. Patient was discharged home on 03/04/2025 in stablecondition. If her loose stool/diarrhea continue to be an issue she should have outpatient follow-up with gastroenterology. With regards to urinary tract infection that showed mixed organisms however she was symptomatic so I will go ahead and complete treatment with 1 more day ofantibiotics for an uncomplicatedUTI. Keflex was sent to local pharmacy at the time of discharge. Discharge diagnoses: Acute hyponatremia Adverse drug reaction-HCTZ Acute uncomplicated UTI Diarrhea Atrial fibrillation Essential hypertension Hyperlipidemia Hypothyroidism Neuropathy Generalized anxiety Physical Exam Narrative Patient states she feels 100% better than when she got here. Tremor has resolved and she is anxiousto go home for [place] in [place]. Const alert, oriented x3, no apparent distress, average body habitus, no limitations, healthy appearing and well nourished Constitutional Narrative: Very pleasant, older, white female, transitioning to the bedside commode with nurses aide using a wheeled walker, appears comfortable, nontoxic General Appearance: cooperative, comfortable, well kempt and well developed Exam Limitations: no limitations Nutritional Appearance: overweight HEENT normocephalic, head/scalp atraumatic and moist oral mucous membranes HEENT Narrative: Mallampati 2, no thrush Eyes conjunctivae normal Eyes Narrative: No scleral icterus Neck supple Neck Narrative: Trachea midline Resp normal respiratory effort, no retractions, no use of accessory muscles and clearto auscultation bilaterally Auscultation: Negative for rales, rhonchi or wheezes Cardio regular rate, regular rhythm, S1 normal heart sound, S2 normal heart sound, no murmurs, no rub, no gallops and no clicks GI normal to inspection, nondistended, normoactive bowel sounds, soft to palpation and non-tender Extremity no clubbing, cyanosis or edema Extremity Narrative: 2+ pedal pulses Skin skin turgor normal and no jaundice Skin Narrative: Bilateral lower extremity chronic venous stasis 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6 L, MCV 89.5, MCH 31.3, MCHC 35.0, RDW Std Deviation 39.0, RDW Coeff of Pedro 11.9, Plt Count 112 L, MPV 10.5, Sodium 136, Potassium 4.1, [id number], Carbon Dioxide 23.0, Anion Gap 10, BUN 5, Creatinine 0.67 L, Estim Creat Clear Calc 60.18, EstGFR (MDRD) Non-Af 91, BUN/Creatinine Ratio 7.3 L, Glucose 183 H, Calcium 8.6, Phosphorus 3.2, Magnes ium 1.8 Microbiology: Microbiology 03/04/25 10:50 Stool Stool Lactoferrin - Final 03/04/25 10:50 Stool Clostridioides difficile (PCR) - Final 03/02/25 19:55 Interface Orders Urine Culture - Final Mixed Gram Pos & Gram Neg Org D/C Instructions Discharge Diet: Low fat / Low cholesterol and 1800 Calorie Control Diet Discharge Activity: Return to Normal Activity and Use Walker DC O2, CPAP, BIPAP Needs Home O2 Discharge instructions: No DC home with Oxygen: No Meaningful Use Info Meaningful Use Meaningful Use Diagnoses (Choose all that apply): None applicable Ischemic Stroke Statin Dosing Therapy Reference: STATIN DOSE THERAPY REFERENCE: * Patients > 75 years receive moderate or high dose statin therapy. * Patients 75 years or YOUNGER should receive HIGH intensity statin dose unless contraindicated. You will be required to document reason for non-treatment if statin daily dose does not meet guidelines. HIGH DOSE STATIN THERAPY DAILY Atorvastatin > than or = to 40 mg Rosuvastatin > than or = to 20 mg Amlodipine + Atorvastatin > than or = to 2.5/40 mg Ezetimibe + Simvastatin 10/80 mg Simvastatin 80mg Discharge Plan Admission Admit Date/Time: 03/02/25 22:54 Primary Reason for Your Visit: Hyponatremia/generalized weakness Attending Provider: Brittany Yarbrough Primary Care Provider: Mathieu Roland Consulting Providers: Eder Lujan Instructions Additional Instructions / Restrictions: 1. Please stop taking your hydrochlorothiazide as I suspect this in combinationwith your Lasix caused your sodium levels to drop 2. Please follow-up with your outpatient primary care physician to have your blood pressure reevaluated. Your blood pressure while here was not markedly elevated despite discontinuing HCTZ so you maynot need new medication but need follow-up to ensure that this is the case 3. Continue your ongoing outpatient physical therapy 4. Okay to use as needed Imodium for loose stool and if this is persistent would recommend outpatient follow-up with a cashier general Discharge Orders/Prescriptions Prescriptions: New Eliquis 5 mg Tablet 2.5 mg PO BID Qty: 0 0RF cephalexin 500 mg capsule 500 mg PO BID Qty: 2 0RF Continued furosemide 40 MG tablet 40 mg PO DAILY gabapentin 600 MG tablet 600 mg PO BIDCM hydrocodone-acetaminophen 1 EACH tablet 1 ea PO BID PRN PRN (Reason: Not Specified) clopidogrel 75 MG tablet 75 mg PO DAILY levothyroxine 50 MCG tablet 50 mcg PO DAILY alprazolam 0.5 MG tablet 0.5 mg PO TID PRN PRN (Reason: Anxiety) ergocalciferol (vitamin D2) 50,000 UNIT capsule 1.25 unit PO QWEEK PRN (Reason: supplement) Rx Instructions: takes Fridays potassium chloride 20 MEQ tablet 20 meq PO DAILYCM Qty: 30 0RF Rx Instructions: Take with furosemide/Lasix metoclopramide HCl [Reglan] 10 mg tablet 10 mg PO Q6H PRN (Reason: nausea and vomiting) Qty: 14 0RF amlodipine 5 mg tablet 5 mg PO DAILY Qty: 30 0RF rosuvastatin 10 mg tablet 10 mg PO DAILY ramipril 10 mg capsule 20 mg PO DAILY Discontinued hydrochlorothiazide 25 mg Tablet 25 mg PO DAILY Referrals / Follow Up: Mathieu Roland DO [Primary Care Provider] - Within 1 Week Disposition Disposition (needs filled in before D/C Order can be placed): Home, Self Care Charges/Coding Visit Charges Inpatient E&M: 09199 Disch Hosp >30min 03/04/25 1434 Cosigner Signature (if applicable): CC: Dr. Brittany Yarbrough DO; Dr. Mathieu Roland DO~ Signed [facility]07-05-2025 [facility] Medical Records Department [address] [place] [address] Discharge Summary 03/04/25 1312 MR#: [id number] Acct: [id number] Name: RAGHAV GREGORY Rep #: [id number] : 1950 74 From: Brittany Yarbrough DO PCP: Dr. Mathieu Roland DO Status:ADM IN [place] [facility] [id number] Providers Date of Admission: 03/02/25 Date of Discharge: 03/04/25 Primary Care Physician: Dr. Mathieu Roland DO Reason For Visit: HYPONATREMIA, ADR TO HCTZ UTI Diagnosis Discharge Diagnosis (1) Ambulatory dysfunction: Status: Acute Code(s): R26.2 - Difficulty in walking, not elsewhere classified (2) Acute cystitis without hematuria: Status: Acute Code(s): N30.00 - Acute cystitis without hematuria (3) Watery diarrhea: Status: Acute Code(s): R19.7 - Diarrhea, unspecified (4) Acute hyponatremia: Status: Acute Code(s): E87.1 - Hypo-osmolality and hyponatremia (5) Adverse drug reaction: Status: Acute Code(s): T50.905A - Adverse effect of unspecified drugs, medicaments and biological substances, initial encounter Qualifiers: Encounter type: initial encounter Qualified Code(s): T50.905A - Adverse effect of unspecified drugs, medicaments and biological substances, initial encounter (6) Generalized weakness: Status: Acute Code(s): R53.1 - Weakness Plan Acute hyponatremia - Improving and now up to 131 from 125 - Continue to hold hydrochlorothiazide and will likely discontinue at discharge - Will go ahead and stop IV fluids for now as patient's oral intake is adequate - Repeat BMP in a.m. Abnormal UA - Highly suspected for infection - Continue ceftriaxone - Await culture results and narrow accordingly Diarrhea - Patient has had no loose stool since she was admitted. States she took some outpatient Imodium - She also states that this is not a new issue for her - Will collect stool sample if we can to rule out enteric pathologies and C. difficile if not and this is ongoing recommend outpatient GI follow-up Atrial fibrillation - Continue apixaban - Patient is rate controlled without any medication Essential hypertension/hyperlipidemia - Continue home amlodipine, ramipril - Hold HCTZ - Continue home rosuvastatin Hypothyroidism - Continue home levothyroxine - TSH is within normal limits Neuropathy - Continue home gabapentin Generalized anxiety - Continue home Xanax RN DVT prophylaxis - Continue home apixaban CODE STATUS Full code Medications at Discharge Home Medications alprazolam 0.5 mg tablet 0.5 mg PO TID PRN PRN Anxiety 07/16/20 clopidogrel 75 mg tablet 75 mg PO DAILY anti platelet 07/16/20 ergocalciferol (vitamin D2) 1,250 mcg (50,000 unit) capsule 1.25 unit PO QWEEK PRN supplement 07/16/20 furosemide 40 mg tablet 40 mg PO DAILY fluid 07/16/20 gabapentin 600 mg tablet 600 mg PO BIDCM neuropathy 07/16/20 hydrocodone-acetaminophen 5-325mg 5mg-325mg 1 ea PO BID PRN PRN Not Specified 07/16/20 levothyroxine 50 mcg tablet 50 mcg PO DAILY thyroid 07/16/20 potassium chloride 20 mEq tablet,extended release(part/cryst) 20 meq PO DAILYCM #30 tabs 07/19/20 metoclopramide HCl 10 mg tablet (Reglan) 10 mg PO Q6H PRN nausea and vomiting #14 tabs 09/16/22 amlodipine 5 mg tablet 5 mg PO DAILY #30 tabs 08/22/23 ramipril 10 mg capsule 20 mg PO DAILY BP 03/02/25 rosuvastatin 10 mg tablet 10 mg PO DAILY cholesterol 03/02/25 apixaban 5 mg tablet (Eliquis) 2.5 mg (1/2 x 5 mg) PO BID #0 tabs 03/04/25 cephalexin 500 mg capsule 500 mg PO BID #2 caps 03/04/25 Hospital Course Operations None Procedures - (CT brain) Summary of Care Provided Minutes Spent on Discharge: 36 Hospital Course: Mrs. Gregory is a debilitated 74-year-old white female who reported to the emergency department [facility] on 03/29/2025 with chief complaint of generalized weakness and falls. She also has been having watery diarrhea. That had been attributed to adverse reactions to semaglutide which has been discontinued. She feels that overall the diarrhea she was experiencing was better but she still is having some intermittent diarrhea and felt like she became weaker than she has at baseline. She does receive regular physical therapy as an outpatient due to her decreased strength. She states she has chronic low back pain and is wheelchair-bound the morning but as the day goes on her pain subsides and she is able to ambulate some with a walker. This was worse than her baseline and she had 2 falls prior to presentation so she like the emergency department. One of the falls are Got caught between the leg and caused her to trip and fall hitting her head. She did have a bruise over her left eye related to this fall but had no other injury. Patient did not find having any previous issues with hyponatremia. Other than her diarrhea she had only some urinary frequency. Vital signs on presentat (more content not included)...[facility]07-04-2025 Progress note Author Brittany Yarbrough [facility] Note Date/Time March 03, 2025 12:57 pm [facility] Medical Records Department [address] [place] [address] Progress Note - Hospitalist 03/03/25 0711 MR#: [id number] Acct: [id number] Name: RAGHAV GREGORY Rep #:[id number] : 1950 74 From: Brittany Yarbrough DO PCP: Dr. Mathieu Roland, DO Status:ADM IN [place] [facility] [id number] Reason for Visit Reason for Visit: Diarrhea/generalized weakness/falls Subjective Subjective No diarrhea since admission. Patient states she has ongoing issues with intermittent diarrhea and that is not a new etiology for her. She states she feels her weakness is much better and reports that she is at least 90% better from her baseline. She reports that she still has a mild tremor. Anxious to gohome. I did discuss with her would like to have a little bit better idea that her sodium will stay elevated and she is clinically stable with another 24 hoursof IV antibiotics. Patient is amenable. She currently has outpatient physical therapy in [place] and would like to continue this. She does not want to be placed. Ambulates with a walker at baseline for the most part but does have intermittent use of wheelchair. Objective Data Objective Data Vital Signs: Vital Signs Temp Pulse Resp BP Pulse Ox O2 Del Method 98.4 F 77 18 123/62 H 99 Room Air 03/03/25 06:09 03/03/25 06:09 03/03/25 06:09 03/03/25 06:09 03/03/25 06:09 03/03/25 06:09 Oxygen Delivery Method Room Air Weight: 73.9 kg Body Mass Index (BMI) 27.1 Intake & Output: Intake and Output for Last 24 Hours 03/01/25 03/02/25 03/03/25 23:59 23:59 23:59 Intake Total 250 / 250 Output Total 550 / 550 Balance -300 / -300 Lab / Micro Data 03/03/25 05:21 03/03/25 05:21 Labs: Laboratory Results - last 24 hr 03/02/25 19:30: WBC 5.8, RBC 4.32, Hgb 13.5, Hct 38.6, MCV 89.4, MCH 31.3, MCHC 35.0, RDW Std Deviation 38.5, RDW Coeff of Pedro 11.9, Plt Count 183, MPV 12.0, Immature Gran % (Auto) 0.200, Neut % (Auto) 77.0 H, Lymph % (Auto) 14.2 L, Dickens % (Auto) 8.0, Eos % (Auto) 0.3, Baso % (Auto) 0.3, Absolute Neuts (auto) 4.4, Absolute Lymphs (auto) 0.82 L, Nucleated RBC % 0, Sodium Cancelled, Potassium Cancelled, Chloride Cancelled, Carbon Dioxide Cancelled, Anion Gap Cancelled, BUN Cancelled, Creatinine Cancelled, Estim Creat Clear Calc Cancelled, Est GFR (MDRD) Non-Af Cancelled, BUN/Creatinine Ratio Cancelled, Glucose Cancelled, Calcium Cancelled, Total Bilirubin Cancelled, AST Cancelled, ALT Cancelled, Alkaline Phosphatase Cancelled, Total Protein Cancelled, Albumin Cancelled, Globulin Cancelled, Albumin/Globulin Ratio Cancelled 03/02/25 19:55: Urine Color Straw, Urine Clarity Cloudy, Urine pH 5.0, Ur Specific [place] 1.020, Urine Protein 15 H, Urine Glucose (UA) 100 H, Urine Ketones Negative, Urine Occult Blood 10 H, Urine Nitrite Negative, Urine Bilirubin Negative, Urine Urobilinogen Normal, Ur Leukocyte Esterase 500 H, Urine RBC 0 SEEN, Urine WBC >100 SEEN, Ur Squamous Epith Cells 0 SEEN, Urine Bacteria 4+, Hyaline Casts 5-10 SEEN, Urine Mucus 0 SEEN, Urine Osmolality 324 03/02/25 21:16: Sodium 125 L, Potassium 5.1, Chloride 93 L, Carbon Dioxide 22.8,Anion Gap 9, BUN 14, Creatinine 0.83, Estim Creat Clear Calc 58.15, Est GFR (MDRD) Non-Af 73, BUN/Creatinine Ratio 16.3, Glucose 196 H, Calcium 8.9, Magnesium 2.2, Total Bilirubin 0.38, AST 30, ALT 15, Alkaline Phosphatase 58, Total Creatine Kinase 574 H, Total Protein 6.2, Albumin 3.7, Globulin 2.5, Albumin/Globulin Ratio 1.5, TSH 1.390 03/02/25 23:12: Serum Osmolality 273 L 03/03/25 05:21: WBC 4.9, RBC 4.18 L, Hgb 13.0, Hct 37.0, MCV 88.5, MCH 31.1, MCHC 35.1, RDW Std Deviation 37.4, RDW Coeff of Pedro 11.7, Plt Count 110 L, MPV 10.9, Immature Gran % (Auto) 0.400, Neut % (Auto) 67.6, Lymph % (Auto) 22.1, Dickens % (Auto) 8.3, Eos % (Auto) 0.8, Baso % (Auto) 0.8, Absolute Neuts (auto) 3.3, Absolute Lymphs (auto) 1.09, Nucleated RBC % 0, Sodium 131 L, Potassium 4.7, Chloride 100, Carbon Dioxide 23.5, Anion Gap 8, BUN 9, Creatinine 0.74, Estim Creat Clear Calc 60.22, Est GFR (MDRD) Non-Af 84, BUN/Creatinine Ratio 12.3, Glucose 169 H, Calcium 8.5, Phosphorus 2.9, Total Bilirubin 0.32, AST 29, ALT 13, Alkaline Phosphatase 55, Total Protein 5.8 L, Albumin 3.6, Globulin 2.2,Albumin/Globulin Ratio 1.6 Radiography Diagnostic Testing: Radiology Impression Brain CT 03/02/25 19:17 IMPRESSION: No acute intracranial finding. Reading Location: [facility] Physical Exam Const alert, oriented x3, no apparent distress, average body habitus and well nourished Constitutional Narrative: Very pleasant, older, white female, sitting up in a chair at the bedside gettingready to eat breakfast HEENT head/scalp atraumatic and moist oral mucous membranes Head and Scalp: normocephalic Resp normal respiratory effort, no retractions, no use of accessory muscles and clearto auscultation bilaterally Auscultation: Negative for rales, rhonchi or wheezes Cardio regular rate, regular rhythm, S1 normal heart sound, S2 normal heart sound, no murmurs, no rub, no gallops and no clicks GI normal to inspection, nondistended, normoactive bowel sounds, soft to palpation and non-tender Extremity no clubbing, cyanosis or edema Extremity Narrative: 2+ pedal pulses Neuro oriented x3, moves all extremities and no focal motor deficits Neuro Narrative: Mild tremor but seems to be intention predominantly Speech: speech normal Psych affect normal Psych Narrative: Very pleasant, eye contact is good and patient interacts appropriately Assessment & Plan Assessment/Plan (1) Ambulatory dysfunction: (2) Acute cystitis without hematuria: (3) Watery diarrhea: (4) Acute hyponatremia: (5) Adverse drug reaction: QUALIFIERS: Encounter type: initial encounter Qualified Code(s): T50.905A - Adverse effect of unspecified drugs, medicaments and biological substances, initial encounter (6) Generalized weakness: PLAN: Plan Acute hyponatremia - Improving and now up to 131 from 125 - Continue to hold hydrochlorothiazide and will likely discontinue at discharge - Will go ahead and stop IV fluids for now as patient's oral intake is adequate - Repeat BMP in a.m. Abnormal UA - Highly suspected for infection - Continue ceftriaxone - Await culture results and narrow accordingly Diarrhea - Patient has had no loose stool since she was admitted. States she took some outpatient Imodium - She also states that this is not a new issue for her - Will collect stool sample if we can to rule out enteric pathologies and C. difficile if not and this is ongoing recommend outpatient GI follow-up Atrial fibrillation - Continue apixaban - Patient is rate controlled without any medication Essential hypertension/hyperlipidemia - Continue home amlodipine, ramipril - Hold HCTZ - Continue home rosuvastatin Hypothyroidism - Continue home levothyroxine - TSH is within normal limits Neuropathy - Continue home gabapentin Generalized anxiety - Continue home Xanax RN DVT prophylaxis - Continue home apixaban CODE STATUS Full code Charges/Coding Visit Charges Inpatient E&M: 38037 Subs Hosp L2 03/03/25 1257 <Electronically signed by Brittany Yarbrough DO> Cosigner Signature (if applicable): CC: ~ Signed [facility] Work Phone: 1(824) 967-811507-04-[address] [facility] Medical Records Department [address] [place] [id number] Progress Note - Hospitalist 03/03/25 0711 MR#: [id number] Acct: [id number] Name: RAGHAV GREGORY Rep #:[id number] : 1950 74 From: Brittany Yarbrough DO PCP: Dr. Mathieu Roland DO Status:ADM IN Location: [place] [id number] Reason for Visit Reason for Visit: Diarrhea/generalized weakness/falls Subjective Subjective No diarrhea since admission. Patient states she has ongoing issues with intermittent diarrhea and that is not a new etiology for her. She states she feels her weakness is much better and reports thatshe is at least 90% better from her baseline. She reports that she still has a mild tremor. Pedroto sulaiman. I did discuss with her would like to have a little bit better idea that her sodium will stay elevated and she is clinically stable with another 24 hoursof IV antibiotics. Patient is amenable. She currently has outpatient physical therapy in [place] and would like to continue this. She does not want to be placed. Ambulates with a walker at baseline for the most part but does have intermittent use of wheelchair. Objective Data Objective Data Vital Signs: Vital Signs Temp Pulse Resp BP Pulse Ox O2 Del Method 98.4 F 77 18 123/62 H 99 Room Air 03/03/25 06:09 03/03/25 06:09 03/03/25 06:09 03/03/25 06:09 03/03/25 06:09 03/03/25 06:09 Oxygen Delivery Method Room Air Weight: 73.9 kg Body Mass Index (BMI) 27.1 Intake & Output: Intake and Output for Last 24 Hours 03/01/25 03/02/25 03/03/25 23:59 23:59 23:59 Intake Total 250 / 250 Output Total 550 / 550 Balance -300 / -300 Lab / Micro Data 03/03/25 05:21 03/03/25 05:21 Labs: Laboratory Results - last 24 hr 03/02/25 19:30: WBC 5.8, RBC 4.32, Hgb 13.5, Hct 38.6, MCV 89.4, MCH 31.3, MCHC 35.0, RDW Std Deviation 38.5, RDW Coeff of Pedro 11.9, Plt Count 183, MPV 12.0, Immature Gran % (Auto) 0.200, Neut % (Auto) 77.0 H, Lymph % (Auto) 14.2 L, Dickens % (Auto) 8.0, Eos % (Auto) 0.3, Baso % (Auto) 0.3, Absolute Neuts (auto) 4.4, Absolute Lymphs (auto) 0.82 L, Nucleated RBC % 0, Sodium Cancelled, Potassium Cancelled, Chloride Cancelled, Carbon Dioxide Cancelled, Anion Gap Cancelled, BUN Cancelled, Creatinine Cancelled, Estim Creat Clear Calc Cancelled, Est GFR (MDRD) Non-Af Cancelled, BUN/Creatinine Ratio Cancelled, Glucose Cancelled, Calcium Cancelled, Total Bilirubin Cancelled, AST Cancelled, ALT Cancelled, Alkaline Phosphatase Cancelled, Total Protein Cancelled, Albumin Cancelled, Globulin Cancelled, Albumin/Globulin Ratio Cancelled 03/02/25 19:55: Urine Color Straw, Urine Clarity Cloudy, Urine pH 5.0, Ur Specific [place] 1.020, Urine Protein 15 H, Urine Glucose (UA) 100 H, Urine Ketones Negative, Urine Occult Blood 10 H, Urine Nitrite Negative, Urine Bilirubin Negative, Urine Urobilinogen Normal, Ur Leukocyte Esterase 500 H, U rine RBC 0 SEEN, Urine WBC >100 SEEN, Ur Squamous Epith Cells 0 SEEN, Urine Bacteria 4+, HyalineCasts 5-10 SEEN, Urine Mucus 0 SEEN, Urine Osmolality 324 03/02/25 21:16: Sodium 125 L, Potassium 5.1, Chloride 93 L, Carbon Dioxide 22.8,Anion Gap 9, BUN 14, Creatinine 0.83, Estim Creat Clear Calc 58.15, Est GFR (MDRD) Non-Af 73, BUN/Creatinine Ratio 16.3, Glucose 196 H, Calcium 8.9, Magnesium 2.2, Total Bilirubin 0.38, AST 30, ALT 15, Alkaline Phosphatase 58, Total Creatine Kinase 574 H, Total Protein 6.2, Albumin 3.7, Globulin 2.5, Albumin/Globulin Ratio 1.5, TSH 1.390 03/02/25 23:12: Serum Osmolality 273 L 03/03/25 05:21: WBC 4.9, RBC 4.18 L, Hgb 13.0, Hct 37.0, MCV 88.5, MCH 31.1, MCHC 35.1, RDW Std Deviation 37.4, RDW Coeff of Pedro 11.7, Plt Count 110 L, MPV 10.9, Immature Gran % (Auto) 0.400, Neut % (Auto) 67.6, Lymph % (Auto) 22.1, Dickens % (Auto) 8.3, Eos % (Auto) 0.8, Baso % (Auto) 0.8, Absolute Neuts (auto) 3.3, Absolute Lymphs (auto) 1.09, Nucleated RBC % 0, Sodium 131 L, Potassium 4.7, Chloride 100, Carbon Dioxide 23.5, Anion Gap 8, BUN 9, Creatinine 0.74, Estim Creat Clear Calc 60.22, Est GFR (MDRD) Non-Af 84, BUN/Creatinine Ratio 12.3, Glucose 169 H, Calcium 8.5, Phosphorus 2.9, Total Bilirubin 0.32, AST 29, ALT 13, Alkaline Phosphatase 55, Total Protein 5.8 L, Albumin 3.6, Globulin 2. 2,Albumin/Globulin Ratio 1.6 Radiography Diagnostic Testing: Radiology Impression Brain CT 03/02/25 19:17 IMPRESSION: No acute intracranial finding. Reading Location: [facility] Physical Exam Const alert, oriented x3, no apparent distress, average body habitus and well nourished Constitutional Narrative: Very pleasant, older, white female, sitting up in a chair at the bedside gettingready to eat breakfast HEENT head/scalp atraumatic and moist oral mucous membranes Head and Scalp: normocephalic Resp normal respiratory effort, no retractions, no use of accessory muscles and clearto auscultation bilaterally Auscultation: Negative for rales, rhonchi or wheezes Cardio regular rate, regular rhythm, S1 normal heart sound, S2 normal heart sound, no murmurs, no rub, no gallops and no clicks GI normal to inspection, nondistended, normoactive bowel sounds, soft to palpation and non-tender Extremity no clubbing, cyanosis or edema Extremity Narrative: 2+ pedal pulses Neuro oriented x3, moves all extremities and no focal motor deficits Neuro Narrative: Mild tremor but seems to be intention predominantly Speech: speech normal Psych affect normal Psych Narrative: Very pleasant, eye contact is good and patient interacts appropriately Assessment & Plan Assessment/Plan (1) Ambulatory dysfunction: (2) Acute cystitis without hematuria: (3) Watery diarrhea: (4) Acute hyponatremia: (5) Adverse drug reaction: QUALIFIERS: Encounter type: initial encounter Qualified Code(s): T50.905A - Adverse effect of unspecified drugs, medicaments and biological substances, initial encounter (6) Generalized weakness: PLAN: Plan Acute hyponatremia - Improving and now up to 131 from 125 - Continue to hold hydrochlorothiazide and will likely discontinue at discharge - Will go ahead and stop IV fluids for now as patient's oral intake is adequate - Repeat BMP in a.m. Abnormal UA - Highly suspected for infection - Continue ceftriaxone - Await culture results and narrow accordingly Diarrhea - Patient has had no loose stool since she was admitted. States she took some outpatient Imodium - She also states that this is not a new issue for her - Will collect stool sample if we can to rule out enteric pathologies and C. difficile if not and this is ongoing recommend outpatient GI follow-up Atrial fibrillation - Continue apixaban - Patient is rate controlled without any medication Essential hypertension/hyperlipidemia - Continue home amlodipine, ramipril - Hold HCTZ - Continue home rosuvastatin Hypothyroidism - Continue home levothyroxine - TSH is within normal limits Neuropathy - Continue home gabapentin Generalized anxiety - Continue home Xanax RN DVT prophylaxis - Continue home apixaban CODE STATUS Full code Charges/Coding Visit Charges Inpatient E&M: 07068 Subs Hosp L2 03/03/25 1257 Cosigner Signature (if applicable): CC: ~ Signed [facility]07-04-2025 History and physical note Author Eder Cifuentes [facility] Note Date/Time March 03, 2025 6:05a [facility] Medical Records Department [address] [place] [address] H&P Exam - Hospitalist 03/02/25 2243 MR#: [id number] Acct: [id number] Name: RAGHAV GREGORY Rep #:[id number] : 1950 74 From: Eder Brown DO PCP: Dr. Mathieu Roland, Status:ADM IN Location: [place] [id number] HPI - General General Date of Admission: 03/02/25 Date of Service: 03/02/25 Chief Complaint: Low Sodium, Watery Diarrhea, Generalized Weakness and Falls. 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 Ms. Gregory reports her symptoms began approximately 2 weeks prior to admission when she developed watery diarrhea that was attributed to an adverse drug reaction to semaglutide which was stopped at that time. Unfortunately, her diarrhea has continued causing her to progressively worsen and then about 2 daysago she developed generalized weakness and malaise with 2 subsequent falls at home in the last 24 hours with her first fall precipitated by her cat getting caught between her legs causing her to trip and fall hitting her left forehead and sustaining a skin tear on her Right dorsal hand with no other significant injuries, headache or LOC. She does not remember the number associated with herdangerously low sodium. She denies recent antibiotics, blood in stools, nausea or vomiting but she does admit to minor vision changes that made it hard for herto read close up prior to the fall. There is no report of related fever, chills, runny nose, sore throat, ear pain, chest pain, palpitations, heart racing, lower extremity edema, shortness of breath, cough, dysuria or rash. In the ER she was noted to have Hyponatremia of 125 mmol/L present on admission suspected to be due to Adverse Drug Reaction to hydrochlorothiazide complicated by UA positive for Acute Cystitis; without hematuria with persistent Watery Diarrhea culminating in Generalized Weakness and Ambulatory Dysfunction with Frequent Falls with a brain CT without contrast that revealed no acute intracranial changes. She was then admitted to the general medical floor for ongoing care for stay that is expected to extend beyond 2 midnights. 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 Diabetic foot ulcer associated with type 2 diabetes mellitus Type 2 diabetes mellitus Home Medications ?Medication ?Instructions ?Recorded ?Last Taken ?Type alprazolam 0.5 mg tablet 0.5 mg PO TID PRN PRN Anxiet y 11/16/20 07/03/25 History clopidogrel 75 mg tablet 75 mg PO DAILY anti platelet 07/16/20 03/01/25 History ergocalciferol (vitamin D2) 1,250 1.25 unit PO QWEEK P RN supplement 07/16/20 02/27/25 History mcg (50,000 unit) capsule furosemide 40 mg tablet 40 mg PO DAILY fluid 0 03/01/25 History gabapentin 600 mg tablet 600 mg PO BIDCM neuropathy 1 09/15/19 03/01/25 History hydrocodone-acetaminophen 5-325mg 1 ea PO BID PRN PRN Not Specified 07/16/20 03/01/25 History 5mg-325mg levothyroxine 50 mcg tablet 50 mcg PO DAILY thyroid 03/01/25 History potassium chloride 20 mEq 20 meq PO DAILYCM #30 tabs 1 09/18/19 03/01/25 Rx tablet,extended release(part/cryst) hydrochlorothiazide 25 mg tablet 25 mg PO DAILY BP 11/1903/01/25 History metoclopramide HCl 10 mg tablet 10 mg PO Q6H PRN nause a and 09/16/22 Unknown Rx (Reglan) vomiting #14 tabs amlodipine 5 mg tablet 5 mg PO DAILY #30 tabs 08/2203/01/25 Rx ramipril 10 mg capsule 20 mg PO DAILY BP 03/02/25 0 03/01/25 History rosuvastatin 10 mg tablet 10 mg PO DAILY cholesterol 0 03/02/25 03/01/25 History Allergy/AdvReac Type Severity Reaction Status Date / Time hydrochlorothiazide AdvReac Hyponatremi Verified 03/03/25 00:49 a Surgical History History of appendectomy History of cholecystectomy Social History Smoking Status: Never smoker ROS ROS Narrative Review of Systems: Constitutional: Patient admits to generalized weakness but she denies fever or chills. Eyes: Patient admits to difficulty reading prior to her fall but she denies diplopia or discharge from eyes. ENT: No runny nose, sore throat or ear pain. Resp: Patient denies shortness of breath or cough. CV: Patient denies chest pain, palpitations or heart racing. GI: Patient admits to watery diarrhea as per HPI. She denies abdominal pain, nausea or vomiting. : Patient denies dysuria or hematuria. MSK: Patient admits to generalized weakness with frequent falls but she denies arthralgias or myalgias. Skin: Patient has chronic venous stasis changes of both lower extremities. Psych: Patient denies symptoms of uncontrolled depression or anxiety. Neuro: Patient denies headache, paresthesias or focal neurologic deficits. Allergy: Patient denies lip swelling, tongue swelling or urticaria. Hematology: Patient denies easy bleeding or easy bruisability. Endocrinology: Patient denies polyuria, polydipsia, polyphagia or heat/cold intolerance. 14 point ROS otherwise negative except for positives noted above in HPI. Vital Signs Vital Signs Vital Signs: 03/02/25 17:48 03/02/25 19:55 03/02/25 19:55 Temperature 97.3 F L Temperature Source Temporal Pulse Rate 68 73 Respiratory Rate 18 12 Respiratory Effort Normal Non-Labored Respiratory Pattern Normal Blood Pressure 116/54 L 133/73 H Blood Pressure Mean 74 93 Pulse Ox 98 98 Oxygen Delivery Method Room Air Room Air 03/02/25 21:00 03/02/25 22:20 Temperature 99.7 F H Temperature Source Pulse Rate 69 90 Respiratory Rate 12 18 Respiratory Effort Respiratory Pattern Blood Pressure 121/56 H 122/83 H Blood Pressure Mean 77 96 Pulse Ox 99 98 Oxygen Delivery Method Room Air Weight Weight: 163 lb 9.328 oz Body Mass Index (BMI) 27.2 Physical Exam Const alert, oriented x3, no apparent distress, average body habitus and healthy appearing General Appearance: cooperative HEENT normocephalic, head/scalp atraumatic, hearing grossly normal bilaterally and moist oral mucous membranes Eyes PERRL and EOMs intact bilaterally Neck no lymphadenopathy and supple Resp normal respiratory effort, no retractions, no use of accessory muscles and clearto auscultation bilaterally Cardio regular rate and regular rhythm GI normal to inspection, nondistended, normoactive bowel sounds, soft to palpation,non-tender and non-distended Extremity Extremity Narrative: Patient has evidence of chronic venous stasis changes in her lower extremities plus multiple previously well-healed toe amputations. Skin Skin Narrative: Patient has evidence of chronic venous stasis changes in her lower extremities plus multiple previously well-healed toe amputations. Neuro oriented x3, CN's II-XII intact bilaterally, moves all extremities and no focal motor deficits Sensorium / Orientation: awake, alert, oriented to person, oriented to place andoriented to time Speech: speech normal Psych affect normal Results Medical Records Data Attestation: I reviewed the patient's medical records Lab / Micro Data Attestation: I reviewed the patient's lab results. 03/02/25 19:30 03/02/25 21:16 Labs: Laboratory Results - last 24 hr 03/02/25 19:30: WBC 5.8, RBC 4.32, Hgb 13.5, Hct 38.6, MCV 89.4, MCH 31.3, MCHC 35.0, RDW Std Deviation 38.5, RDW Coeff of Pedro 11.9, Plt Count 183, MPV 12.0, Immature Gran % (Auto) 0.200, Neut % (Auto) 77.0 H, Lymph % (Auto) 14.2 L, Dickens % (Auto) 8.0, Eos % (Auto) 0.3, Baso % (Auto) 0.3, Absolute Neuts (auto) 4.4, Absolute Lymphs (auto) 0.82 L, Nucleated RBC % 0, Sodium Cancelled, Potassium Cancelled, Chloride Cancelled, Carbon Dioxide Cancelled, Anion Gap Cancelled, BUN Cancelled, Creatinine Cancelled, Estim Creat Clear Calc Cancelled, Est GFR (MDRD) Non-Af Cancelled, BUN/Creatinine Ratio Cancelled, Glucose Cancelled, Calcium Cancelled, Total Bilirubin Cancelled, AST Cancelled, ALT Cancelled, Alkaline Phosphatase Cancelled, Total Protein Cancelled, Albumin Cancelled, Globulin Cancelled, Albumin/Globulin Ratio Cancelled 03/02/25 19:55: Urine Color Straw, Urine Clarity Cloudy, Urine pH 5.0, Ur Specific [place] 1.020, Urine Protein 15 H, Urine Glucose (UA) 100 H, Urine Ketones Negative, Urine Occult Blood 10 H, Urine Nitrite Negative, Urine Bilirubin Negative, Urine Urobilinogen Normal, Ur Leukocyte Esterase 500 H, Urine RBC 0 SEEN, Urine WBC >100 SEEN, Ur Squamous Epith Cells 0 SEEN, Urine Bacteria 4+, Hyaline Casts 5-10 SEEN, Urine Mucus 0 SEEN 07/03/25 21:16: Sodium 125 L, Potassium 5.1, Chloride 93 L, Carbon Dioxide 22.8,Anion Gap 9, BUN 14, Creatinine 0.83, Estim Creat Clear Calc 58.15, Est GFR (MDRD) Non-Af 73, BUN/Creatinine Ratio 16.3, Glucose 196 H, Calcium 8.9, Total Bilirubin 0.38, AST 30, ALT 15, Alkaline Phosphatase 58, Total Protein 6.2, Albumin 3.7, Globulin 2.5, Albumin/Globulin Ratio 1.5 Imaging Radiology Impression Brain CT 03/02/25 19:17 IMPRESSION: No acute intracranial finding. Reading Location: [id number] Assessment & Plan Assessment/Plan (1) Acute hyponatremia: (2) Adverse drug reaction: QUALIFIERS: Encounter type: initial encounter Qualified Code(s): T50.905A - Adverse effect of unspecified drugs, medicaments and biological substances, initial encounter (3) Acute cystitis without hematuria: (4) Low grade fever: (5) Watery diarrhea: (6) Generalized weakness: (7) Ambulatory dysfunction: (8) Frequent falls: (9) Overweight (BMI 25.0-29.9): PLAN: Plan 1. Acute Hyponatremia of 125 mmol/L present on admission - Admit to general medical floor. Continue NS IV fluid and recheck in a.m. with goal to improve nomore than 8-10 mmol/L per 24 hours. Check urine and serum osmolality. 2. Adverse Drug Reaction to hydrochlorothiazide likely causing #1 - Stop hydrochlorothiazide and add to list of allergies to prevent recurrence. 3. UA positive for Acute Cystitis; without hematuria with low-grade Fever of 99.7 degrees Fahrenheit noted shortly after admission complicating #1 & #2 - Start IV ceftriaxone and await culture and sensitivity data. Give acetaminophenas needed for pain or fever. 4. Watery diarrhea exacerbating #1 - #3 - Check stool studies and place on enteric precautions until infectious etiology ruled out. 5. Generalized Weakness and Ambulatory Dysfunction with Frequent Falls due to #1 - #4 - PT/OT and Case Management consult and treat on rounds in a.m. for further recommendations with help appreciated in advance. 6. Overweight; with a BMI of 27.2 this admission adding to the burden of disease outlined from #1 - #5 - Weight loss will be recommended. Check TSH. 7. Essential hypertension; on amlodipine, ramipril, as needed furosemide and hydrochlorothiazide - Hold hydrochlorothiazide as outlined in #2. Continue amlodipine and ramipril as previous plus give as needed IV hydralazine for systolic blood pressure greater than 160 mmHg. 8. Recently diagnosed atrial fibrillation; on apixaban - Stable 9. Hypothyroidism; on levothyroxine - Maintain levothyroxine as previous plus check TSH. 10. Hyperlipidemia; on rosuvastatin - Resume rosuvastatin as before plus check Lipid Profile. 11. Neuropathy; on gabapentin twice daily - Current therapy to continue. 12. Generalized anxiety; on alprazolam 3 times daily as needed - Continue prn alprazolam. 13. DVT prophylaxis - Patient on apixaban for #8 which will be continued. Total time: Approximately (but not less than) 75 minutes. Charges/Coding Visit Charges Inpatient E&M: 79117 Init Hosp L3 03/03/25 0605 <Electronically signed by Eder Lujan DO> Cosigner Signature (if applicable): CC: Dr. Eder Lujan DO; Dr. Mathieu Roland DO~ Signed [facility] Work Phone: [phone] 150-762707-04-[address] [facility] Medical Records Department [address] [place] [address] H&P Exam - Hospitalist 03/02/25 2243 MR#: [id number] Acct: [id number] Name: RAGHAV GREGORY Rep #:[id number] : 1950 74 From: Eder Brown DO PCP: Dr. Mathieu Roland DO Status:ADM IN [place] [id number] HPI - General General Date of Admission: 03/02/25 Date of Service: 03/02/25 Chief Complaint: Low Sodium, Watery Diarrhea, Generalized Weakness and Falls. HPI Narrative RAGHAV GREGORY, is a 74 F with a past medical history of essential hypertension; on amlodipine, ramipril, as needed furosemide and hydrochlorothiazide, hyperlipidemia; on rosuvastatin, hypothyroidism; on levothyroxine, overweight; BMI of 27.2 this admission, DM-2; of unknown control on glimepiride, insulin detemir 28 units daily plus recently discontinued semaglutide, recently diagnosed atrial fibrillation; on apixaban, neuropathy; on gabapentin twice daily, history of COVID-19, PVD; with historyof non-pressure chronic ulcer of the Left foot; s/p multiple toe amputations, chronic venous insufficiency, OA and chronic watery diarrhea who presents to [facility] ER complaining ofhaving an abnormal outpatient lab test 2 days ago at [facility] that revealed dangerously low sodium in addition to 2 falls in the past 24 hours so she decided to come in for further evaluation and treatment. Ms. Gregory reports her symptoms began approximately 2 weeks prior to admission when she developed watery diarrhea that was attributed to an adverse drug reaction to semaglutide which was stopped at that time. Unfortunately, her diarrhea has continued causing her to progressively worsen and then about 2 daysago she developed generalized weakness and malaise with 2 subsequent falls at home in the last 24 hours with her first fall precipitated by her cat getting caught between her legs causing herto trip and fall hitting her left forehead and sustaining a skin tear on her Right dorsal hand withno other significant injuries, headache or LOC. She does not remember the number associated with her dangerously low sodium. She denies recent antibiotics, blood in stools, nausea or vomiting but she does admit to minor vision changes that made it hard for herto read close up prior to the fall. There is no report of related fever, chills, runny nose, sore throat, ear pain, chest pain, palpitations, heart racing, lower extremity edema, shortness of breath, cough, dysuria or rash. In the ER she was noted to have Hyponatremia of 125 mmol/L present on admission suspected to be due to Adverse Drug Reaction to hydrochlorothiazide complicated by UA positive for Acute Cystitis; without hematuria with persistent Watery Diarrhea culminating in Generalized Weakness and Ambulatory Dysfunction with Frequent Falls with a brain CT without contrast that revealed no acute intracranial changes. She was then admitted to the general medical floor for ongoing care for stay that is expected to extend beyond2 midnights. 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 Diabetic foot ulcer associated with type 2 diabetes mellitus Type 2 diabetes mellitus Home Medications ?Medication ?Instructions ?Recorded ?Last Taken ?Type alprazolam 0.5 mg tablet 0.5 mg PO TID PRN PRN Anxiet y 07/16/20 03/02/25 History clopidogrel 75 mg tablet 75 mg PO DAILY anti platelet 07/16/20 03/01/25 History ergocalciferol (vitamin D2) 1,250 1.25 unit PO QWEEK P RN supplement 07/16/20 02/27/25 History mcg (50,000 unit) capsule furosemide 40 mg tablet 40 mg PO DAILY fluid 0 03/01/25 History gabapentin 600 mg tablet 600 mg PO BIDCM neuropathy 1 09/15/19 03/01/25 History hydrocodone-acetaminophen 5-325mg 1 ea PO BID PRN PRN Not Specified 07/16/20 03/01/25 History 5mg-325mg levothyroxine 50 mcg tablet 50 mcg PO DAILY thyroid 03/01/25 History potassium chloride 20 mEq 20 meq PO DAILYCM #30 tabs 1 09/18/19 03/01/25 Rx tablet,extended release(part/cryst) hydrochlorothiazide 25 mg tablet 25 mg PO DAILY BP 11/1903/01/25 History metoclopramide HCl 10 mg tablet 10 mg PO Q6H PRN nause a and 09/16/22 Unknown Rx (Reglan) vomiting #14 tabs amlodipine 5 mg tablet 5 mg PO DAILY #30 tabs 08/2203/01/25 Rx ramipril 10 mg capsule 20 mg PO DAILY BP 03/02/25 0 03/01/25 History rosuvastatin 10 mg tablet 10 mg PO DAILY cholesterol 0 03/02/25 03/01/25 History Allergy/AdvReac Type Severity Reaction Status Date / Time hydrochlorothiazide AdvReac Hyponatremi Verified 03/03/25 00:49 a Surgical History History of appendectomy History of cholecystectomy Social History Smoking Status: Never smoker ROS ROS Narrative Review of Systems: Constitutional: Patient admits to generalized weakness but she denies fever or chills. Eyes: Patient admits to difficulty reading prior to her fall but she denies diplopia or discharge from eyes. ENT: No runny nose, sore throat or ear pain. Resp: Patient denies shortness of breath or cough. CV: Patient denies chest pain, palpitations or heart racing. GI: Patient admits to watery diarrhea as per HPI. She denies abdominal pain, nausea or vomiting. : Patient denies dysuria or hematuria. MSK: Patient admits to generalized weakness with frequent falls but she denies arthralgias or myalgias. Skin: Patient has chronic venous stasis changes of both lower extremities. Psych: Patient denies symptoms of uncontrolled depression or anxiety. Neuro: Patient denies headache, paresthesias or focal neurologic deficits. Allergy: Patient denies lip swelling, tongue swelling or urticaria. Hematology: Patient denies easy bleeding or easy bruisability. Endocrinology: Patient denies polyuria, polydipsia, polyphagia or heat/cold intolerance. 14 point ROS otherwise negative except for positives noted above in HPI. Vital Signs Vital Signs Vital Signs: 03/02/25 17:48 03/02/25 19:55 03/02/25 19:55 Temperature 97.3 F L Temperature Source Temporal Pulse Rate 68 73 Respiratory Rate 18 12 Respiratory Effort Normal Non-Labored Respiratory Pattern Normal Blood Pressure 116/54 L 133/73 H Blood Pressure Mean 74 93 Pulse Ox 98 98 Oxygen Delivery Method Room Air Room Air 03/02/25 21:00 03/02/25 22:20 Temperature 99.7 F H Temperature Source Pulse Rate 69 90 Respiratory Rate 12 18 Respiratory Effort Respiratory Pattern Blood Pressure 121/56 H 122/83 H Blood Pressure Mean 77 96 Pulse Ox 99 98 Oxygen Delivery Method Room Air Weight Weight: 163 lb 9.328 oz Body Mass Index (BMI) 27.2 Physical Exam Const alert, oriented x3, no apparent distress, average body habitus and healthy appearing General Appearance: cooperative HEENT normocephalic, head/scalp atraumatic, hearing grossly normal bilaterally and moist oral mucous membranes Eyes PERRL and EOMs intact bilaterally Neck no lymphadenopathy and supple Resp normal respiratory effort, no retractions, no use of accessory muscles and clearto auscultation bilaterally Cardio regular rate and regular rhythm GI normal to inspection, nondistended, normoactive bowel sounds, soft to palpation,non-tender and non-distended Extremity Extremity Narrative: Patient has evidence of chronic venous stasis changes in her lower extremities plus multiple previously well-healed toe amputations. Skin Skin Narrative: Patient has evidence of chronic venous stasis changes in her lower extremities plus multiple previously well-healed toe amputations. Neuro oriented x3, CN's II-XII intact bilaterally, moves all extremities and no focal motor deficits Sensorium / Orientation: awake, alert, oriented to person, oriented to place andoriented to time Speech: speech normal Psych affect normal Results Medical Records Data Attestation: I reviewed the patient's medical records Lab / Micro Data Attestation: I reviewed the patient's lab results. 03/02/25 19:30 03/02/25 21:16 Labs: Laboratory Results - last 24 hr 03/02/25 19:30: WBC 5.8, RBC 4.32, Hgb 13.5, Hct 38.6, MCV 89.4, MCH 31.3, MCHC 35.0, RDW Std Deviation 38.5, RDW Coeff of Pedro 11.9, Plt Count 183, MPV 12.0, Immature Gran % (Auto) 0.200, Neut % (Auto) 77.0 H, Lymph % (Auto) 14.2 L, Dickens % (Auto) 8.0, Eos % (Auto) 0.3, Baso % (Auto) 0.3, Absolute Neuts (auto) 4.4, Absolute Lymphs (auto) 0.82 L, Nucleated RBC % 0, Sodium Cancelled, Potassium Cancelled, Chloride Cancelled, Carbon Dioxide Cancelled, Anion Gap Cancelled, BUN Cancelled, Creatinine Cancelled, Estim Creat Clear Calc Cancelled, Est GFR (MDRD) Non-Af Cancelled, BUN/Creatinine Ratio Cancelled, Glucose Cancelled, Calcium Cancelled, Total Bilirubin Cancelled, AST Cancelled, ALT Cancelled, Alkaline Phosphatase Cancelled, Total Protein Cancelled, Albumin Cancelled, Globulin Cancelled, Albumin/Globulin Ratio Cancelled 03/02/25 19:55: Urine Color Straw, Urine Clarity Cloudy, Urine pH 5.0, Ur Specific [place] 1.020, Urine Protein 15 H, Urine Glucose (UA) 100 H, Urine Ketones Negative, Urine Occult Blood 10 H, Urine Nitrite Negative, Urine Bilirubin Negative, Urine Urobilinogen Normal, Ur Leukocyte Esterase 500 H, U rine RBC 0 SEEN, Urine WBC >100 SEEN, Ur Squamous Epith Cells 0 SEEN, Urine Bacteria 4+, HyalineCasts 5-10 SEEN, Urine Mucus 0 SEEN 03/02/25 21:16: Sodium 125 L, Potassium 5.1, Chloride 93 L, Carbon Dioxide 22.8,Anion Gap 9, BUN 14, Creatinine 0.83, Estim Creat Clear Calc 58.15, Est GFR (MDRD) Non-Af 73, BUN/Creatinine Ratio 16.3, Glucose 196 H, Calcium 8.9, Total Bilirubin 0.38, AST 30, ALT 15, Alkaline Phosphatase 58, Total Protein 6.2, Albumin 3.7, Globulin 2.5, Albumin/Globulin Ratio 1.5 Imaging Radiology Impression Brain CT 03/02/25 19:17 IMPRESSION: No acute intracranial finding. Reading Location: [facility] Assessment & Plan Assessment/Plan (1) Acute hyponatremia: (2) Adverse drug reaction: QUALIFIERS: Encounter type: initial encounter Qualified Code(s): T50.905A - Adverse effect of unspecified drugs, medicaments and biological substances, initial encounter (3) Acute cystitis without hematuria: (4) Low grade fever: (5) Watery diarrhea: (6) Generalized weakness: (7) Ambulatory dysfunction: (8) Frequent falls: (9) Overweight (BMI 25.0-29.9): PLAN: Plan 1. Acute Hyponatremia of 125 mmol/L present on admission - Admit to general medical floor. ContinueNS IV fluid and recheck in a.m. with goal to improve nomore than 8-10 mmol/L per 24 hours. Check urine and serum osmolality. 2. Adverse Drug Reaction to hydrochlorothiazide likely causing #1 - Stop hydrochlorothiazide and add to list of allergies to prevent recurrence. 3. UA positive for Acute Cystitis; without hematuria with low-grade Fever of 99.7 degrees Fahrenheit noted shortly after admission complicating #1 & #2 - Start IV ceftriaxone and await culture and sensitivity data. Give acetaminophenas needed for pain or fever. 4. Watery diarrhea exacerbating #1 - #3 - Check stool studies and place on enteric precautions until infectious etiology ruled out. 5. Generalized Weakness and Ambulatory Dysfunction with Frequent Falls due to #1 - #4 - PT/OT and Case Management consult and treat on rounds in a.m. for further recommendations with help appreciatedin advance. 6. Overweight; with a BMI of 27.2 this admission adding to the burden of disease outlined from #1 -#5 - Weight loss will be recommended. Check TSH. 7. Essential hypertension; on amlodipine, ramipril, as needed furosemide and hydrochlorothiazide - Hold hydrochlorothiazide as outlined in #2. Continue amlodipine and ramipril as previous plus give as needed IV hydralazine for systolic blood pressure greater than 160 mmHg. 8. Recently diagnosed atrial fibrillation; on apixaban - Stable 9. Hypothyroidism; on levothyroxine - Maintain levothyroxine as previous plus check TSH. 10. Hyperlipidemia; on rosuvastatin - Resume rosuvastatin as before plus check Lipid Profile. 11. Neuropathy; on gabapentin twice daily - Current therapy to continue. 12. Generalized anxiety; on alprazolam 3 times daily as needed - Continue prn alprazolam. 13. DVT prophylaxis - Patient on apixaban for #8 which will be continued. Total time: Approximately (but not less than) 75 minutes. Charges/Coding Visit Charges Inpatient E&M: 18047 Init Hosp L3 03/03/25 0605 Cosigner Signature (if applicable): CC: Dr. Eder Lujan DO; Dr. Mathieu Roland, ~ Signed [facility]07-04-2025 Discharge summary Author Justyn Rojas [facility] Note Date/Time March 02, 2025 10:56 pm [facility] Medical Records Department [address] [place] [address] Emergency Department Summary 03/02/25 MR#: [id number] Acct: [id number] Name: RAGHAV GREGORY Rep #:[id number] : 1950 74 From: Justyn Rojas MD PCP: Dr. Mathieu Roland DO Status:REG ER Location: ED HPI History of Present Illness Chief Complaint: Abn Labs Informant: patient and family Narrative Narrative: 74-year-old female was sent here to the ER by her PCP because of labs that were done 2 days ago that showed dangerously low sodium, however they were done at an outside facility, and they were not given to the patient if patient does not know the number. They were just told to come to the nearest ER. This was done at [facility]. She states the labs were done because she has chronic diarrhea maybe twice a day watery nonbloody no melena, and she was recently diagnosed with atrial fibrillation and started on some new medications includingapixaban, and she has been getting lab checks related to that. Son states is a separate issue, she happened to have 2 falls, 1 yesterday and a minor 1 today. Yesterday her cat got between her legs, causing her to trip and fall, hitting her left forehead and sustaining a skin tear on her right dorsal hand, no other injuries. There was no loss of consciousness, she denies a headache, nausea or vomiting, but she does have some minor vision changes sayingthat it is hard to read close-up compared with before the fall. 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 Diabetic foot ulcer associated with type 2 diabetes mellitus Type 2 diabetes mellitus Home Medications ?Medication ?Instructions ?Recorded ?Last Taken ?Type alprazolam 0.5 mg tablet 0.5 mg PO TID PRN PRN Anxiet y 07/16/20 Unknown History clopidogrel 75 mg tablet 75 mg PO DAILY 07/16/20 Unkn own History ergocalciferol (vitamin D2) 1,250 1.25 unit PO QWEEK s upplement 07/16/20 Unknown History mcg (50,000 unit) capsule furosemide 40 mg tablet 40 mg PO DAILY fluid 0 Unknown History gabapentin 600 mg tablet 600 mg PO BIDCM 07/16/20 Unk nown History glimepiride 4 mg tablet 4 mg PO DAILY dm 07/16/20 Un known History hydrocodone-acetaminophen 5-325mg 1 ea PO BID PRN PRN Not Specified 07/16/20 Unknown History 5mg-325mg insulin detemir U-100 100 unit/mL 28 unit SQ DAILY dm 07/16/20 Unknown History subcutaneous solution levothyroxine 50 mcg tablet 50 mcg PO DAILY thyroid Unknown History potassium chloride 20 mEq 20 meq PO DAILYCM #30 tabs 1 09/18/19 Unknown Rx tablet,extended release(part/cryst) hydrochlorothiazide 25 mg tablet 25 mg PO DAILY Unknown History ramipril 10 mg tablet 10 mg PO DAILY 10/31/21 Unkn own History semaglutide 0.25 mg or 0.5 mg (2 0.25 mg subcut QWEEK diabetes 10/31/21 Unknown History mg/1.5 mL) subcutaneous pen injector (Ozempic) amoxicillin 875 mg-potassium 1 tab PO Q12H #80 tabs Unknown Rx clavulanate 125 mg tablet doxycycline hyclate 100 mg capsule 100 mg PO BID #80 c aps 01/17/22 Unknown Rx metoclopramide HCl 10 mg tablet 10 mg PO Q6H PRN nause a and 09/16/22 Unknown Rx (Reglan) vomiting #14 tabs amlodipine 5 mg tablet 5 mg PO DAILY #30 tabs 08/22 Unknown Rx Allergy/AdvReac Type Severity Reaction Status Date / Time No Known Allergies Allergy Verified 03/02/25 17:47 Surgical History History of appendectomy History of cholecystectomy Social History Smoking Status: Never smoker ROS ROS ED Constitutional Constitutional ED: Reports weakness; Denies chills or fever(s) Eyes Eyes: Reports change in vision bilateral (more difficult to read compared with before my fall); Denies diplopia ENT ENT ED: Denies rhinorrhea or sore throat Cardiovascular Cardiovascular: Denies chest pain or palpitations Respiratory/Chest Respiratory/Chest: Denies cough or dyspnea Gastrointestinal Gastrointestinal: Reports diarrhea; Denies abdominal pain, nausea or vomiting Genitourinary Genitourinary ED: Denies dysuria or hematuria Musculoskeletal Musculoskeletal: Denies back pain or neck pain Integumentary Denies abscess or rash Neurologic Neurologic: Denies confusion, headache(s), paresthesias or weakness Psychiatric Psychiatric: Denies anxiety or suicidal thoughts EXAM Physical Exam Const Vital Signs: 03/02/25 17:48 03/02/25 19:55 03/02/25 19:55 Temperature 97.3 F L Temperature Source Temporal Pulse Rate 68 73 Respiratory Rate 18 12 Respiratory Effort Normal Non-Labored Respiratory Pattern Normal Blood Pressure 116/54 L 133/73 H Blood Pressure Mean 74 93 Pulse Ox 98 98 Oxygen Delivery Method Room Air Room Air 03/02/25 21:00 Temperature Temperature Source Pulse Rate 69 Respiratory Rate 12 Respiratory Effort Respiratory Pattern Blood Pressure 121/56 H Blood Pressure Mean 77 Pulse Ox 99 Oxygen Delivery Method Room Air Positive well nourished and well developed General Appearance ED: well developed and NAD HEENT Reports moist mucous membranes HEENT Narrative: Left forehead mild hematoma, ecchymosis, tenderness without crepitance or depression. No orbital rim tenderness. No other facial bony tenderness. normocephalic, trauma and tenderness Eyes PERRL and EOMs intact bilaterally Eyes Narrative: Extraocular movements intact without pain or entrapment Neck full ROM and supple Resp normal respiratory effort and clear to auscultation bilaterally Cardio regular rate, regular rhythm and no murmurs GI non-tender and non-distended Auscultation: normoactive bowel sounds Palpation: soft Back/Spine no CVA tenderness General Back: other FROM Extremity Extremity Narrative: Superficial skin tear on the right hand base of the dorsal hand, no signs of infection, there is a bandage on it no active bleeding, no bony tenderness full range of motion. General Extremety ED: Yes edema; Negative for pulses abnormal or tenderness General Extremity: edema bilateral lower extremity Details: mild (Symmetric, chronic and stable according the patient); Negative for pulses abnormal Neuro oriented x3, CN's II-XII intact bilaterally and no sensory deficits noted Sensorium / Orientation: awake and alert Motor Exam: general weakness Psych mental status grossly normal Skin no rashes or lesions noted and no wounds MDM MDM MDM Narrative Medical decision making narrative: Patient's sodium came back here at 125, with associated hypochloremia. The restof her labs are unremarkable except for her urinalysis which shows indicators ofinfection. Discussed with the patient she has no urinary symptoms or frequency lately. She does feels generally weak but this could be explained by the hyponatremia so I am sending the urine for culture, starting her on slow saline,and given her symptoms, recommended admission to the hospital. I presume that the patient is probably euvolemic and this is related to her diuretic treatment. Discussed with hospitalist. Lab Data Attestation: I reviewed the patient's lab results. Labs: Laboratory Results - last 24 hr 03/02/25 03/02/25 03/02/25 19:30 19:55 21:16 WBC 5.8 RBC 4.32 Hgb 13.5 Hct 38.6 MCV 89.4 MCH 31.3 MCHC 35.0 RDW Std Deviation 38.5 RDW Coeff of Pedro 11.9 Plt Count 183 MPV 12.0 Immature Gran % (Auto) 0.200 Neut % (Auto) 77.0 H Lymph % (Auto) 14.2 L Dickens % (Auto) 8.0 Eos % (Auto) 0.3 Baso % (Auto) 0.3 Absolute Neuts (auto) 4.4 Absolute Lymphs (auto) 0.82 L Nucleated RBC % 0 Sodium Cancelled 125 L Potassium Cancelled 5.1 Chloride Cancelled 93 L Carbon Dioxide Cancelled 22.8 Anion Gap Cancelled 9 BUN Cancelled 14 Creatinine Cancelled 0.83 Estim Creat Clear Calc Cancelled 58.15 Est GFR (MDRD) Non-Af Cancelled 73 BUN/Creatinine Ratio Cancelled 16.3 Glucose Cancelled 196 H Calcium Cancelled 8.9 Total Bilirubin Cancelled 0.38 AST Cancelled 30 ALT Cancelled 15 Alkaline Phosphatase Cancelled 58 Total Protein Cancelled 6.2 Albumin Cancelled 3.7 Globulin Cancelled 2.5 Albumin/Globulin Ratio Cancelled 1.5 Urine Color Straw Urine Clarity Cloudy Urine pH 5.0 Ur Specific [place] 1.020 Urine Protein 15 H Urine Glucose (UA) 100 H Urine Ketones Negative Urine Occult Blood 10 H Urine Nitrite Negative Urine Bilirubin Negative Urine Urobilinogen Normal Ur Leukocyte Esterase 500 H Urine RBC 0 SEEN Urine WBC >100 SEEN Ur Squamous Epith Cells 0 SEEN Urine Bacteria 4+ Hyaline Casts 5-10 SEEN Urine Mucus 0 SEEN Radiography Diagnostic Testing: Clinical Impression(s) from Imaging Studies Brain CT 03/02/25 19:17 IMPRESSION: No acute intracranial finding. Reading Location: [id number] Management Discussion w/another healthcare provider: Hospitalist Discharge Plan Triage Chief Complaint: Abn Labs ED Provider: Justyn Rojas Dx/Rx/DC Orders Clinical Impression: Acute hyponatremia, Generalized weakness Prescriptions: No Action furosemide 40 MG tablet 40 mg PO DAILY gabapentin 600 MG tablet 600 mg PO BIDCM hydrocodone-acetaminophen 1 EACH tablet 1 ea PO BID PRN PRN (Reason: Not Specified) clopidogrel 75 MG tablet 75 mg PO DAILY levothyroxine 50 MCG tablet 50 mcg PO DAILY glimepiride 4 MG tablet 4 mg PO DAILY insulin detemir U-100 100 UNIT/ML solution 28 unit SQ DAILY alprazolam 0.5 MG tablet 0.5 mg PO TID PRN PRN (Reason: Anxiety) ergocalciferol (vitamin D2) 50,000 UNIT capsule 1.25 unit PO QWEEK Rx Instructions: takes Fridays potassium chloride 20 MEQ tablet 20 meq PO DAILYCM Qty: 30 0RF Rx Instructions: Take with furosemide/Lasix hydrochlorothiazide 25 mg Tablet 25 mg PO DAILY ramipril 10 mg Tablet 10 mg PO DAILY Ozempic 0.25 mg or 0.5 mg(2 mg/1.5 mL) Pen Injector 0.25 mg SUBCUT QWEEK Rx Instructions: due to start this thursday doxycycline hyclate 100 mg capsule 100 mg PO BID Qty: 80 0RF amoxicillin-pot clavulanate 875-125 mg tablet 1 tab PO Q12H Qty: 80 0RF metoclopramide HCl [Reglan] 10 mg tablet 10 mg PO Q6H PRN (Reason: nausea and vomiting) Qty: 14 0RF amlodipine 5 mg tablet 5 mg PO DAILY Qty: 30 0RF Primary Care Provider: Mathieu Roland Referrals: Mathieu Roland DO [Primary Care Provider] - Print Language: Portuguese Disposition Disposition: Acute Care Hospital [facility] What to do if you have Problems For any increased pain, shortness of breath, bleeding, nausea or vomiting, chestpain, or any unexpected problems, contact your Primary Care Provider. Call [facility] ([phone]) or report to the closest Emergency Room. Call 911 if necessary. 03/02/252255 <Electronically signed by Justyn Rojas MD> Cosigner Signature (if applicable): CC: Dr. Mathieu Roland DO ~ Signed [facility] Work Phone: 1(495) 485-804507-04-2025 Evaluation note* Diagnosis Onset Date Resolution Status Admit Date Acute cystitis without hematuria acu te March 02, 2025 10:54pm Acute hyponatremia acute March 022024 10:54pm Adverse drug reaction acute Feb 10:54pm Ambulatory dysfunction acute Ju 2024 10:54pm Frequent falls acute March 02, 2025 10:54pm Generalized weakness acute March 02, 2025 10:54pm Overweight (BMI 25.0-29.9) acute March 02, 2025 10:54pm Watery diarrhea acute March 02, 2025 10:54pm Low grade fever deleted March 02, 2025 10:54pm [facility] Work Phone: 1(797) 821-337307-03-[address] [facility] Medical Records Department [address] [place] [address] Emergency Department Summary 03/02/25 MR#: [id number] Acct: [id number] Name: RAGHAV GREGORY Rep #:[id number] : 1950 74 From: Justyn Rojas MD PCP: Dr. Mathieu Roland, DO Status:REG ER Location: ED HPI History of Present Illness Chief Complaint: Abn Labs Informant: patient and family Narrative Narrative: 74-year-old female was sent here to the ER by her PCP because of labs that were done 2 days ago that showed dangerously low sodium, however they were done at an outside facility, and they were not given to the patient if patient does not know the number. They were just told to come to the nearestER. This was done at [facility]. She states the labs were done because she has chronic diarrhea maybe twice a day watery nonbloody no melena, and she was recently diagnosed with atrial fibrillation and started on some new medications includingapixaban, and she has been getting lab checks related to that. Son states is a separate issue, she happened to have 2 falls, 1 yesterday and a minor 1 today. Yesterday her cat got between her legs, causing her to trip and fall, hitting her left forehead and sustaining a skin tear on her right dorsal hand, no other injuries. There was no loss of consciousness, she denies a headache, nausea or vomiting, but she does have some minor vision changes sayingthat itis hard to read close-up compared with before the fall. 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 Diabetic foot ulcer associated with type 2 diabetes mellitus Type 2 diabetes mellitus Home Medications ?Medication ?Instructions ?Recorded ?Last Taken ?Type alprazolam 0.5 mg tablet 0.5 mg PO TID PRN PRN Anxiet y 07/16/20 Unknown History clopidogrel 75 mg tablet 75 mg PO DAILY 07/16/20 Unkn own History ergocalciferol (vitamin D2) 1,250 1.25 unit PO QWEEK s upplement 07/16/20 Unknown History mcg (50,000 unit) capsule furosemide 40 mg tablet 40 mg PO DAILY fluid 0 Unknown History gabapentin 600 mg tablet 600 mg PO BIDCM 07/16/20 Unk nown History glimepiride 4 mg tablet 4 mg PO DAILY dm 07/16/20 Un known History hydrocodone-acetaminophen 5-325mg 1 ea PO BID PRN PRN Not Specified 07/16/20 Unknown History 5mg-325mg insulin detemir U-100 100 unit/mL 28 unit SQ DAILY dm 07/16/20 Unknown History subcutaneous solution levothyroxine 50 mcg tablet 50 mcg PO DAILY thyroid Unknown History potassium chloride 20 mEq 20 meq PO DAILYCM #30 tabs 1 09/18/19 Unknown Rx tablet,extended release(part/cryst) hydrochlorothiazide 25 mg tablet 25 mg PO DAILY Unknown History ramipril 10 mg tablet 10 mg PO DAILY 10/31/21 Unkn own History semaglutide 0.25 mg or 0.5 mg (2 0.25 mg subcut QWEEK diabetes 10/31/21 Unknown History mg/1.5 mL) subcutaneous pen injector (Ozempic) amoxicillin 875 mg-potassium 1 tab PO Q12H #80 tabs Unknown Rx clavulanate 125 mg tablet doxycycline hyclate 100 mg capsule 100 mg PO BID #80 c aps 01/17/22 Unknown Rx metoclopramide HCl 10 mg tablet 10 mg PO Q6H PRN nause a and 09/16/22 Unknown Rx (Reglan) vomiting #14 tabs amlodipine 5 mg tablet 5 mg PO DAILY #30 tabs 08/22 Unknown Rx Allergy/AdvReac Type Severity Reaction Status Date / Time No Known Allergies Allergy Verified 03/02/25 17:47 Surgical History History of appendectomy History of cholecystectomy Social History Smoking Status: Never smoker ROS ROS ED Constitutional Constitutional ED: Reports weakness; Denies chills or fever(s) Eyes Eyes: Reports change in vision bilateral (more difficult to read compared with before my fall); Denies diplopia ENT ENT ED: Denies rhinorrhea or sore throat Cardiovascular Cardiovascular: Denies chest pain or palpitations Respiratory/Chest Respiratory/Chest: Denies cough or dyspnea Gastrointestinal Gastrointestinal: Reports diarrhea; Denies abdominal pain, nausea or vomiting Genitourinary Genitourinary ED: Denies dysuria or hematuria Musculoskeletal Musculoskeletal: Denies back pain or neck pain Integumentary Denies abscess or rash Neurologic Neurologic: Denies confusion, headache(s), paresthesias or weakness Psychiatric Psychiatric: Denies anxiety or suicidal thoughts EXAM Physical Exam Const Vital Signs: 03/02/25 17:48 03/02/25 19:55 03/02/25 19:55 Temperature 97.3 F L Temperature Source Temporal Pulse Rate 68 73 Respiratory Rate 18 12 Respiratory Effort Normal Non-Labored Respiratory Pattern Normal Blood Pressure 116/54 L 133/73 H Blood Pressure Mean 74 93 Pulse Ox 98 98 Oxygen Delivery Method Room Air Room Air 03/02/25 21:00 Temperature Temperature Source Pulse Rate 69 Respiratory Rate 12 Respiratory Effort Respiratory Pattern Blood Pressure 121/56 H Blood Pressure Mean 77 Pulse Ox 99 Oxygen Delivery Method Room Air Positive well nourished and well developed General Appearance ED: well developed and NAD HEENT Reports moist mucous membranes HEENT Narrative: Left forehead mild hematoma, ecchymosis, tenderness without crepitance or depression. No orbital rim tenderness. No other facial bony tenderness. normocephalic, trauma and tenderness Eyes PERRL and EOMs intact bilaterally Eyes Narrative: Extraocular movements intact without pain or entrapment Neck full ROM and supple Resp normal respiratory effort and clear to auscultation bilaterally Cardio regular rate, regular rhythm and no murmurs GI non-tender and non-distended Auscultation: normoactive bowel sounds Palpation: soft Back/Spine no CVA tenderness General Back: other FROM Extremity Extremity Narrative: Superficial skin tear on the right hand base of the dorsal hand, no signs of infection, there is a bandage on it no active bleeding, no bony tenderness full range of motion. General Extremety ED: Yes edema; Negative for pulses abnormal or tenderness General Extremity: edema bilateral lower extremity Details: mild (Symmetric, chronic and stable according the patient); Negative for pulses abnormal Neuro oriented x3, CN's II-XII intact bilaterally and no sensory deficits noted Sensorium / Orientation: awake and alert Motor Exam: general weakness Psych mental status grossly normal Skin no rashes or lesions noted and no wounds MDM MDM MDM Narrative Medical decision making narrative: Patient's sodium came back here at 125, with associated hypochloremia. The restof her labs are unremarkable except for her urinalysis which shows indicators ofinfection. Discussed with the patient she has no urinary symptoms or frequency lately. She does feels generally weak but this could be explained by the hyponatremia so I am sending the urine for culture, starting her on slow saline,and given her symptoms, recommended admission to the hospital. I presume that the patient is probably euvolemic and this is related to her diuretic treatment. Discussed with hospitalist. Lab Data Attestation: I reviewed the patient's lab results. Labs: Laboratory Results - last 24 hr 03/02/25 03/02/25 03/02/25 19:30 19:55 21:16 WBC 5.8 RBC 4.32 Hgb 13.5 Hct 38.6 MCV 89.4 MCH 31.3 MCHC 35.0 RDW Std Deviation 38.5 RDW Coeff of Pedro 11.9 Plt Count 183 MPV 12.0 Immature Gran % (Auto) 0.200 Neut % (Auto) 77.0 H Lymph % (Auto) 14.2 L Dickens % (Auto) 8.0 Eos % (Auto) 0.3 Baso % (Auto) 0.3 Absolute Neuts (auto) 4.4 Absolute Lymphs (auto) 0.82 L Nucleated RBC % 0 Sodium Cancelled 125 L Potassium Cancelled 5.1 Chloride Cancelled 93 L Carbon Dioxide Cancelled 22.8 Anion Gap Cancelled 9 BUN Cancelled 14 Creatinine Cancelled 0.83 Estim Creat Clear Calc Cancelled 58.15 Est GFR (MDRD) Non-Af Cancelled 73 BUN/Creatinine Ratio Cancelled 16.3 Glucose Cancelled 196 H Calcium Cancelled 8.9 Total Bilirubin Cancelled 0.38 AST Cancelled 30 ALT Cancelled 15 Alkaline Phosphatase Cancelled 58 Total Protein Cancelled 6.2 Albumin Cancelled 3.7 Globulin Cancelled 2.5 Albumin/Globulin Ratio Cancelled 1.5 Urine Color Straw Urine Clarity Cloudy Urine pH 5.0 Ur Specific [place] 1.020 Urine Protein 15 H Urine Glucose (UA) 100 H Urine Ketones Negative Urine Occult Blood 10 H Urine Nitrite Negative Urine Bilirubin Negative Urine Urobilinogen Normal Ur Leukocyte Esterase 500 H Urine RBC 0 SEEN Urine WBC >100 SEEN Ur Squamous Epith Cells 0 SEEN Urine Bacteria 4+ Hyaline Casts 5-10 SEEN Urine Mucus 0 SEEN Radiography Diagnostic Testing: Clinical Impression(s) from Imaging Studies Brain CT 03/02/25 19:17 IMPRESSION: No acute intracranial finding. Reading Location: [id number] Management Discussion w/another healthcare provider: Hospitalist Discharge Plan Triage Chief Complaint: Abn Labs ED Provider: Justyn Rojas Dx/Rx/DC Orders Clinical Impression: Acute hyponatremia, Generalized weakness Prescriptions: No Action furosemide 40 MG tablet 40 mg PO DAILY gabapentin 600 MG tablet 600 mg PO BIDCM hydrocodone-acetaminophen 1 EACH tablet 1 ea PO BID PRN PRN (Reason: Not Specified) clopidogrel 75 MG tablet 75 mg PO DAILY levothyroxine 50 MCG tablet 50 mcg PO DAILY glimepiride 4 MG tablet 4 mg PO DAILY insulin detemir U-100 100 UNIT/ML solution 28 unit SQ DAILY alprazolam 0.5 MG tablet 0.5 mg PO TID PRN PRN (Reason: Anxiety) ergocalciferol (vitamin D2) 50,000 UNIT capsule 1.25 unit PO QWEEK Rx Instructions: takes Fridays potassium chloride 20 MEQ tablet 20 meq PO DAILYCM Qty: 30 0RF Rx Instructions: Take with furosemide/Lasix hydrochlorothiazide 25 mg Tablet 25 mg PO DAILY ramipril 10 mg Tablet 10 mg PO DAILY Ozempic 0.25 mg or 0.5 mg(2 mg/1.5 mL) Pen Injector 0.25 mg SUBCUT QWEEK Rx Instructions: due to start this thursday doxycycline hyclate 100 mg capsule 100 mg PO BID Qty: 80 0RF amoxicillin-pot clavulanate 875-125 mg tablet 1 tab PO Q12H Qty: 80 0RF metoclopramide HCl [Reglan] 10 mg tablet 10 mg PO Q6H PRN (Reason: nausea and vomiting) Qty: 14 0RF amlodipine 5 mg tablet 5 mg PO DAILY Qty: 30 0RF Primary Care Provider: Mathieu Roland Referrals: Mathieu Roland DO [Primary Care Provider] - Print Language: Portuguese Disposition Disposition: Acute Care Hospital [facility] What to do if you have Problems For any increased pain, shortness of breath, bleeding, nausea or vomiting, chestpain, or any unexpected problems, contact your Primary Care Provider. Call [facility] ([phone]) or report tothe closest Emergency Room. Call 911 if necessary. 03/02/25 0536 Cosigner Signature (if applicable): CC: Dr. Mathieu Roland DO ~ Signed [facility]07-03-2025 Radiology Diagnostic study note [facility] Imaging Services [address] [place], [place] [address] Brain/Head without Contrast MR#: [id number] Acct: [id number] Name: RAGHAV GREGORY Rep #: [id number] : [id number] F [id number] From: Kerry Ceja MD PCP: Dr. Mathieu Roland DO Status: REG ER Study:Brain/Head without Contrast Date of Exa m: 03/02/25 Exam# [id number] Ordering Dr: Isrrael Rojas MD EXAM: BRAIN/HEAD WITHOUT CONTRAST CLINICAL HISTORY: 74 y/o F with FALL/TRAUMA, APIXABAN. COMPARISON: None. TECHNIQUE: Routine CT imaging of the head without IV contrast. Additional multiplanar reformats were obtained. Dose reduction techniques were used including intermediate exposure control (AEC),iterative reconstruction technique, and/or mA and/or KV dose adjustments based on patient's size. FINDINGS: The ventricles, sulci and cisterns are normal for patient age. There is no evidence of acute intracranial hemorrhage or herniation. There is no midline shift, mass effect, or extra-axial collection. Moderate patchy supratentorial white matter hypodensities. The becerra and white matter differentiation is otherwise maintained. Prior ocular lens replacements. The visualized paranasal sinuses and mastoids are unremarkable. No acute calvarial fracture or scalp hematoma. CT/Brain/Head without Contrast IMPRESSION: No acute intracranial finding. Reading Location: [id number] CC: Dr. Justyn Rojas MD; Dr. Mathieu Roland DO ~ Sap Technical Developer: Signed [facility]12-30-2024 Note* Exam Date Time Procedure Performing Provider Status 08/29/24 2:[address] Head or Brain w/o Contrast KAZ GUSTAFSON MD; Auth (Verified) [id number] ORIGINAL HISTORY: Dizziness, tinnitus, vertigo COMPARISON: No [...] 08/29/2024 2:35:35 PM Ordering Provider: MATHIEU ROLAND [facility]07-01-2024 Note ORIGINAL EXAMINATION: ULTRASOUND OF THE [...] Date: 02/29/2024 2:06:10 PM Ordering Provider: MARQUISE [facility] 06-02-2022 Note ORIGINAL EXAMINATION: BONE DENSITOMETRY 06/02/2022 2:46 [...] 06/02/2022 4:12:45 PM Ordering Provider: MATHIEU ROLAND [facility]10-03-2022 Note ORIGINAL EXAMINATION: BONE DENSITOMETRY 06/02/2022 2:46 [...] Date: 06/02/2022 4:12:45 PM Ordering Provider: [facility] Future Appointments Appointment Date:06/25/2021 04:00:00 PM Scheduled Provider:MARQUISE LEHMAN MD Location:[facility] Appointment Type:ENDO OV Appointment Date:09/17/2021 03:30:00 PM Scheduled Provider:MATHIEU ROLAND DO Location:[facility] Appointment Type:PC OV Future Scheduled Tests Radiology* NM Myocardial Spect Rest/Stress 06/22/20 [facility] Evaluation + Plan note Future Appointments Appointment Date:08/15/2021 03:30:00 PM Scheduled Provider:MATHIEU ROLAND DO Location:[facility] Appointment Type:PC OV Appointment Date:09/17/2021 03:30:00 PM Scheduled Provider:MATHIEU ROLAND DO Location:[facility] Appointment Type:PC OV Appointment Date:10/22/2021 03:30:00 PM Scheduled Provider:MARQUISE LEHMAN MD Location:[facility] Appointment Type:ENDO OV Future Scheduled Tests Laboratory* Thyroid Stimulating Hormone 10/26/21 * A1C Hemoglobin 10/26/21 * Microalbumin Level Urine 10/26/21 * Vitamin D Level 10/26/21 * Complete Metabolic Panel 10/26/21 Radiology* XR Foot Minimum 3 Views Left 07/19/21 [facility] InstantMarketingaluation + Plan note Future Appointments Appointment Date:10/22/2021 03:30:00 PM Scheduled Provider:MARQUISE LEHMAN MD Location:[facility] Appointment Type:ENDO OV Appointment Date:12/17/2021 04:00:00 PM Scheduled Provider:MATHIEU ROLAND DO Location:[facility] Appointment Type:PC OV Controlled Medication Future Scheduled Tests Laboratory* COVID-19 Only (AO) 08/29/21 * Microalbumin Level Urine 10/26/21 Radiology* XR Foot Minimum 3 Views Left 07/19/21 [facility] Evaluation + Plan note Future Appointments Appointment Date:10/22/2021 03:30:00 PM Scheduled Provider:MARQUISE LEHMAN MD Location:[facility] Appointment Type:ENDO OV Appointment Date:12/17/2021 04:00:00 PM Scheduled Provider:MATHIEU ROLAND DO Location:[facility] Appointment Type:PC OV Controlled Medication Future Scheduled Tests Laboratory* COVID-19 Only (AO) 08/29/21 Radiology* XR Foot Minimum 3 Views Left 07/19/21 [facility] Evaluation + Plan note Future Appointments Appointment Date:01/14/2022 04:00:00 PM Scheduled Provider:MATHIEU ROLAND DO Location:[facility] Appointment Type:PC Wellness Medicare Appointment Date:01/23/2022 03:15:00 PM Scheduled Provider:MARQUISE LEHMAN MD Location:[facility] Appointment Type:ENDO OV Appointment Date:03/26/2022 04:00:00 PM Scheduled Provider:MATHIEU ROLAND DO Location:[facility] Appointment Type:PC OV Future Scheduled Tests Laboratory* Thyroid Stimulating Hormone 01/19/22 * Free T4 01/19/22 * A1C Hemoglobin 01/19/22 * Lipid Profile 01/19/22 * Microalbumin Level Urine 01/19/22 * Vitamin D Level 01/19/22 * Complete Metabolic Panel 01/19/22 * Complete Metabolic Panel 12/11/21 * Complete Metabolic Panel 11/21/21 * COVID-19 Only (AO) 08/29/21 Radiology* XR Foot Minimum 3 Views Left 07/19/21 [facility] Evaluation + Plan note Future Appointments Appointment Date:01/23/2022 03:15:00 PM Scheduled Provider:MARQUISE LEHMAN MD Location:[facility] Appointment Type:ENDO OV Appointment Date:03/26/2022 04:00:00 PM Scheduled Provider:MATHIEU ROLAND DO Location:[facility] Appointment Type:PC OV Future Scheduled Tests Laboratory* Thyroid Stimulating Hormone 01/19/22 * Free T4 01/19/22 * A1C Hemoglobin 01/19/22 * Lipid Profile 01/19/22 * Microalbumin Level Urine 01/19/22 * Vitamin D Level 01/19/22 * Complete Metabolic Panel 01/19/22 * Complete Metabolic Panel 12/11/21 * Complete Metabolic Panel 11/21/21 * COVID-19 Only (AO) 08/29/21 Radiology* XR Foot Minimum 3 Views Left 07/19/21 [facility] Evaluation + Plan note Future Appointments Appointment Date:03/06/2022 02:45:00 PM Scheduled Provider:MARQUISE LEHMAN MD Location:[facility] Appointment Type:ENDO OV Appointment Date:04/16/2022 02:00:00 PM Scheduled Provider:MATHIEU ROLAND DO Location:[facility] Appointment Type:PC OV Future Scheduled Tests Laboratory* Complete Metabolic Panel 12/11/21 * Complete Metabolic Panel 11/21/21 * COVID-19 Only (AO) 08/29/21 Radiology* XR Foot Minimum 3 Views Left 07/19/21 [facility] Evaluation + Plan note Future Appointments Appointment Date:06/17/2022 02:30:00 PM Scheduled Provider:MATHIEU ROLAND DO Location:[facility] Appointment Type:PC OV Controlled Medication Appointment Date:07/10/2022 02:45:00 PM Scheduled Provider:MARQUISE LEHMAN MD Location:[facility] Appointment Type:ENDO OV Future Scheduled Tests [...] BD Bone Density DEXA Axial Skeleton 04/23/22 [facility] Evaluation + Plan note Future Appointments Appointment Date:06/17/2022 02:30:00 PM Scheduled Provider:MATHIEU ROLAND DO Location:[facility] Appointment Type:PC OV Controlled Medication Appointment Date:07/10/2022 02:45:00 PM Scheduled Provider:MARQUISE LEHMAN MD Location:[facility] Appointment Type:ENDO OV Future Scheduled Tests Laboratory* Thyroid Stimulating Hormone 07/07/22 * A1C Hemoglobin 07/07/22 * Lipid Profile 07/07/22 * Hepatitis C Antibody IgG 04/23/22 * Vitamin D Level 07/07/22 * Complete Metabolic Panel 12/11/21 * Complete Metabolic Panel 11/21/21 * Complete Metabolic Panel 07/07/22 * COVID-19 Only (AO) 08/29/21 Radiology* XR Foot Minimum 3 Views Left 07/19/21 [facility] Evaluation + Plan note Future Appointments Appointment Date:10/02/2022 11:30:00 AM Scheduled Provider:MARQUISE LEHMAN MD Location:[facility] Appointment Type:ENDO OV Appointment Date:10/21/2022 03:30:00 PM Scheduled Provider:MATHIEU ROLAND DO Location:[facility] Appointment Type:PC OV Appointment Date:12/16/2022 03:30:00 PM Scheduled Provider:MATHIEU ROLAND DO Location:[facility] Appointment Type:PC OV Controlled Medication Future Scheduled Tests Laboratory* Hepatitis C Antibody IgG 04/23/22 * Complete Metabolic Panel 12/11/21 * Complete Metabolic Panel 11/21/21 [facility] Evaluation + Plan note Future Appointments Appointment Date:02/19/2023 03:00:00 PM Scheduled Provider:MARQUISE LEHMAN MD Location:[facility] Appointment Type:ENDO OV Appointment Date:03/18/2023 04:00:00 PM Scheduled Provider:MATHIEU ROLAND DO Location:[facility] Appointment Type:PC OV Controlled Medication Diagnostic Tests Pending * Vitamin D Level 02/12/23 Future Scheduled Tests Laboratory* Hepatitis C Antibody IgG 04/23/22 [facility] Evaluation + Plan note Future Appointments Appointment Date:09/10/2023 04:30:00 PM Scheduled Provider:MATHIEU ROLAND DO Location:[facility] Appointment Type:PC OV Appointment Date:10/27/2023 03:15:00 PM Scheduled Provider:MARQUISE LEHMAN MD Location:[facility] Appointment Type:ENDO OV Future Scheduled Tests Laboratory* Thyroid Stimulating Hormone 10/26/23 * Free T4 10/26/23 * A1C Hemoglobin 10/26/23 * Lipid Profile 10/26/23 * Albumin/Creatinine Ratio, Random Urine 10/26/23 * Vitamin D Level 10/26/23 * Complete Metabolic Panel 10/26/23 Radiology* US Thyroid 10/26/23 [facility] Evaluation + Plan note Future Appointments Appointment Date:10/27/2023 03:15:00 PM Scheduled Provider:MARQUISE LEHMAN MD Location:[facility] Appointment Type:ENDO OV Appointment Date:12/10/2023 03:00:00 PM Scheduled Provider:MATHIEU ROLAND DO Location:[facility] Appointment Type:PC OV Controlled Medication Future Scheduled Tests Laboratory* Complete Metabolic Panel 09/01/23 Radiology* US Thyroid 10/26/23 [facility] Evaluation + Plan note Future Appointments Appointment Date:03/10/2024 02:15:00 PM Scheduled Provider:MARQUISE LEHMAN MD Location:[facility] Appointment Type:ENDO OV Appointment Date:03/17/2024 03:30:00 PM Scheduled Provider:MATHIEU ROLAND DO Location:[facility] Appointment Type:PC OV Controlled Medication Future Scheduled Tests Laboratory* Complete Metabolic Panel 09/01/23 Radiology* US Thyroid 10/26/23 [facility] Evaluation + Plan note Future Appointments Appointment Date:08/22/2024 01:00:00 PM Scheduled Provider: Location:[facility] Appointment Type:MA Mammogram Screening Bilateral w/ [place] Appointment Date:08/22/2024 01:30:00 PM Scheduled Provider: Location:[facility] Appointment Type:BD Bone Density DEXA Axial Skeleton Appointment Date:09/08/2024 03:00:00 PM Scheduled Provider:MARQUISE LEHMAN MD Location:[facility] Appointment Type:ENDO OV Appointment Date:09/15/2024 02:30:00 PM Scheduled Provider:MATHIEU ROLAND DO Location:[facility] Appointment Type:PC OV Controlled Medication Future Scheduled [...] or older) 08/22/24 * US Thyroid 10/26/23 [facility] Evaluation + Plan note Future Appointments Appointment Date:09/08/2024 03:00:00 PM Scheduled Provider:MARQUISE LEHMAN MD Location:[facility] Appointment Type:ENDO OV Appointment Date:09/15/2024 02:30:00 PM Scheduled Provider:MATHIEU ROLAND DO Location:[facility] Appointment Type:PC OV Controlled Medication Future Scheduled Tests Laboratory* Thyroid Stimulating Hormone 09/10/24 * Free T4 09/10/24 * A1C Hemoglobin 09/10/24 * Free T3 09/10/24 * Lipid Profile 09/10/24 * Albumin/Creatinine Ratio, Random Urine 09/10/24 * Vitamin D Level 09/10/24 * Complete Metabolic Panel 09/10/24 * Complete Metabolic Panel 09/01/23 Radiology* US Thyroid 10/26/23 [facility] Evaluation + Plan note Future Appointments Appointment Date:09/08/2024 03:00:00 PM Scheduled Provider:MARQUISE LEHMAN MD Location:[facility] Appointment Type:ENDO OV Appointment Date:09/15/2024 02:30:00 PM Scheduled Provider:MATHIEU ROLAND DO Location:[facility] Appointment Type:PC OV Controlled Medication Future Scheduled Tests Radiology* US Thyroid 10/26/23 [facility] Evaluation + Plan note Future Appointments Appointment Date:10/13/2024 03:00:00 PM Scheduled Provider: Location:[facility] Appointment Type:ENDO Nurse Appointment Date:10/20/2024 04:00:00 PM Scheduled Provider:MATHIEU ROLAND DO Location:[facility] Appointment Type:PC OV Appointment Date:01/12/2025 03:00:00 PM Scheduled Provider:MARQUISE LEHMAN MD Location:[facility] Appointment Type:ENDO OV Future Scheduled Tests Laboratory* Thyroid Stimulating Hormone 01/06/25 * A1C Hemoglobin 01/06/25 * Free T3 01/06/25 * Lipid Profile 01/06/25 * Albumin/Creatinine Ratio, Random Urine 01/06/25 * Vitamin D Level 01/06/25 * Complete Metabolic Panel 01/06/25 Radiology* US Thyroid 10/26/23 [facility] evaluation + Plan note Future Appointments Appointment Date:01/12/2025 03:00:00 PM Scheduled Provider:MARQUISE LEHMAN MD Location:[facility] Appointment Type:ENDO OV Appointment Date:03/16/2025 02:30:00 PM Scheduled Provider:MATHIEU ROLAND DO Location:[facility] Appointment Type:PC OV Controlled Medication [facility] Evaluation + Plan note Future Appointments Appointment Date:03/01/2025 04:00:00 PM Scheduled Provider:Jay Khan PT Location:[facility] Appointment Type:PT Treatment [facility] Appointment Date:03/16/2025 02:30:00 PM Scheduled Provider:MATHIEU ROLAND DO Location:[facility] Appointment Type:PC OV Controlled Medication Appointment Date:03/20/2025 04:00:00 PM Scheduled Provider: Location:[facility] Appointment Type:Echo - Echocardiogram Adult Appointment Date:06/07/2025 02:00:00 PM Scheduled Provider: Location:[facility] Appointment Type:US Thyroid Appointment Date:06/15/2025 03:30:00 PM Scheduled Provider:MARQUISE LEHMAN MD Location:[facility] Appointment Type:ENDO OV Future Scheduled Tests Laboratory* Basic Metabolic Panel 02/23/25 * Thyroid Stimulating Hormone 06/14/25 * Free T4 06/14/25 * A1C Hemoglobin 06/14/25 * Lipid Profile 06/14/25 * Albumin/Creatinine Ratio, Random Urine 06/14/25 * Vitamin D Level 06/14/25 * Complete Metabolic Panel 06/14/25 Radiology* US Thyroid 06/07/25 [facility] Evaluation + Plan note Future Appointments Appointment Date:03/01/2025 04:00:00 PM Scheduled Provider:Jay Khan PT Location:[facility] Appointment Type:PT Treatment [facility] Appointment Date:03/16/2025 02:30:00 PM Scheduled Provider:MATHIEU ROLAND DO Location:[facility] Appointment Type:PC OV Controlled Medication Appointment Date:03/20/2025 04:00:00 PM Scheduled Provider: Location:[facility] Appointment Type:Echo - Echocardiogram Adult Appointment Date:06/07/2025 02:00:00 PM Scheduled Provider: Location:[facility] Appointment Type:US Thyroid Appointment Date:06/15/2025 03:30:00 PM Scheduled Provider:MARQUISE LEHMAN MD Location:[facility] Appointment Type:ENDO OV Future Scheduled Tests Laboratory* Basic Metabolic Panel 02/24/25 * Basic Metabolic Panel 02/23/25 * Thyroid Stimulating Hormone 06/14/25 * Free T4 06/14/25 * A1C Hemoglobin 06/14/25 * Lipid Profile 06/14/25 * Albumin/Creatinine Ratio, Random Urine 06/14/25 * Vitamin D Level 06/14/25 * Complete Metabolic Panel 06/14/25 Radiology* US Thyroid 06/07/25 [facility] Evaluation + Plan note Future Appointments Appointment Date:03/08/2025 03:30:00 PM Scheduled Provider:Jay Khan PT Location:[facility] Appointment Type:PT Treatment - [place] Appointment Date:03/16/2025 02:30:00 PM Scheduled Provider:MATHIEU ROLAND DO Location:[facility] Appointment Type:PC OV Controlled Medication Appointment Date:03/20/2025 04:00:00 PM Scheduled Provider: Location:[facility] Appointment Type:Echo - Echocardiogram Adult Appointment Date:03/22/2025 02:15:00 PM Scheduled Provider:ARNOL PEARL Location:[facility] Appointment Type:CV OV Appointment Date:06/07/2025 02:00:00 PM Scheduled Provider: Location:[facility] Appointment Type:US Thyroid Appointment Date:06/15/2025 03:30:00 PM Scheduled Provider:MARQUISE LEHMAN MD Location:[facility] Appointment Type:ENDO OV Future Scheduled Tests Laboratory* Basic Metabolic Panel 02/23/25 * Thyroid Stimulating Hormone 06/14/25 * Free T4 06/14/25 * A1C Hemoglobin 06/14/25 * Lipid Profile 06/14/25 * Albumin/Creatinine Ratio, Random Urine 06/14/25 * Vitamin D Level 06/14/25 * Complete Metabolic Panel 06/14/25 Radiology* US Thyroid 06/07/25 [facility] Evaluation + Plan note Future Appointments Appointment Date:03/22/2025 02:15:00 PM Scheduled Provider:ARNOL PEARL Location:[facility] Appointment Type:CV OV Appointment Date:06/07/2025 02:00:00 PM Scheduled Provider: Location:[facility] Appointment Type:US Thyroid Appointment Date:06/15/2025 03:30:00 PM Scheduled Provider:MARQUISE LEHMAN MD Location:[facility] Appointment Type:ENDO OV Appointment Date:06/16/2025 12:00:00 PM Scheduled Provider:MATHIEU ROLAND DO Location:[facility] Appointment Type:PC OV Controlled Medication Future Scheduled Tests Laboratory* Basic Metabolic Panel 02/23/25 * Thyroid Stimulating Hormone 06/14/25 * Free T4 06/14/25 * A1C Hemoglobin 06/14/25 * Lipid Profile 06/14/25 * Albumin/Creatinine Ratio, Random Urine 06/14/25 * Vitamin D Level 06/14/25 * Complete Metabolic Panel 06/14/25 Radiology* US Thyroid 06/07/25 [facility] Evaluation + Plan note Future Appointments Appointment Date:04/24/2025 03:30:00 PM Scheduled Provider:ARNOL PEARL Location:[facility] Appointment Type:CV OV Appointment Date:06/07/2025 02:00:00 PM Scheduled Provider: Location:[facility] Appointment Type:US Thyroid Appointment Date:06/13/2025 11:30:00 AM Scheduled Provider:MATHIEU ROLAND DO Location:[facility] Appointment Type:PC OV Controlled Medication Appointment Date:06/15/2025 03:30:00 PM Scheduled Provider:MARQUISE LEHMAN MD Location:[facility] Appointment Type:ENDO OV Future Scheduled Tests Laboratory* Basic Metabolic Panel 02/23/25 * Thyroid Stimulating Hormone 06/14/25 * Free T4 06/14/25 * A1C Hemoglobin 06/14/25 * Lipid Profile 06/14/25 * Albumin/Creatinine Ratio, Random Urine 06/14/25 * Vitamin D Level 06/14/25 * Complete Metabolic Panel 06/14/25 Radiology* US Thyroid 06/07/25 [facility] Evaluation + Plan note Future Appointments Appointment Date:06/13/2025 11:30:00 AM Scheduled Provider:MATHIEU ROLAND DO Location:[facility] Appointment Type:PC OV Controlled Medication Appointment Date:06/15/2025 03:30:00 PM Scheduled Provider:MARQUISE LEHMAN MD Location:[facility] Appointment Type:ENDO OV Appointment Date:2025 01:30:00 PM Scheduled Provider:ARNOL PEARL Location:[facility] Appointment Type:CV OV Future Scheduled Tests Laboratory* Basic Metabolic Panel 02/23/25 * Albumin/Creatinine Ratio, Random Urine 06/14/25 [facility] Evaluation note* Diagnosis Onset Date Resolution Status [...] 2 diabetes mellitus acute Hypertension chronic Hypothyroidism [place] [facility] Work Phone: Evaluation note* Diagnosis Onset [...] acute Type 2 diabetes mellitus [facility] Work Phone: [...] chronic Type 2 diabetes mellitus chr onic [facility] Work Phone: Evaluation note* Diagnosis Onset Date [...] Gangrene of toe of left foot resolved [facility] Work Phone: Evaluation noteNo assessment information available [facility] Work Phone: Hospital course Narrative No data available for this section [facility] Discharge instructions No data available for this section [facility] Discharge instructionsAdditional Instructions 1. Please stop taking your hydrochlorothiazide as I suspect this in combination with your Lasix caused your sodium levels to drop 2. Please follow-up with your outpatient primary care physician to have your blood pressure reevaluated. Your blood pressure while here was not markedly elevated despite discontinuing HCTZ so you may not need new medication but need follow-up to ensure that this is the case 3. Continue your ongoing outpatient physical therapy 4. Okay to use as needed Imodium for loose stool and if this is persistent would recommend outpatient follow-up with a cashier general [facility]: [facility] note No data available for this section [facility] Reason for referral (narrative)No reason for [facility] Work Phone: Chief Complaint and Reason for Visit Chief [...] toe of left foot Chief Complaint N/V Chief Complaint Admit Date HYPONATREMIA, ADR TO HCTZ & UTI February 10:54pm Chief Complaint Admit Date HYPONATREMIA, ADR TO HCTZ & UTI February 10:54pm HYPONATREMIA, ADR TO HCTZ & UTI February 7:11am HYPONATREMIA, ADR TO HCTZ & UTI February 1:12pm Reason for Visit Admit Date Acute cystitis without hematuria February 10:54pm Acute hyponatremia March 02, 2025 10:54 pm Adverse drug reaction March 02, 2025 10: 54pm Ambulatory dysfunction March 02, 2025 10 :54pm Frequent falls March 02, 2025 10:54 pm Generalized weakness March 02, 2025 10:5 4pm Overweight (BMI 25.0-29.9) March 02 10:54pm Watery diarrhea March 02, 2025 10:54 pm Low grade fever March 02, 2025 10:54 pm Advance Directives No Advanced Directives Records Found Advance Directive Response Recorded Date/ Time Living Will No July 16 6:34pm Power of Civil Cad Designer No July 16, 2020 6:34pm Advance Directive Response Recorded Date/ Time Living Will No January 14, 2022 7 :06pm Power of Civil Cad Designer No January 14, 2022 7:06pm Advance Directive Response Recorded Date/ Time Living Will No January 14, 2022 1 1:01pm Power of Civil Cad Designer No January 14, 2022 11:01pm Advance Directive Response Recorded Date/ Time Living Will No Marta 16th, 20 23 11:53pm Power of Civil Cad Designer No September 15, 2022 11:53pm Advance Directive Response Recorded Date/ Time Do you have a Healthcare Power of Civil Cad Designer? Yes March 02, 2025 7:56pm Advance Directive Response Recorded Date/ Time Do you have a Healthcare Power of Civil Cad Designer? Yes March 02, 2025 11:47pm Summary Purpose Family History No Family History [...] Dr. Edin Schmidt DPM Attending Provider Active Team Status: Active Member Role/Relationship Status Dates Dr. Mathieu Roland DO Primary Care Provider Active Team Status: Active Member Role/Relationship Status Dates Dr. Mathieu Roland DO Primary Care Provider Active Start: March 02, 2025 Dr. Justyn Rojas MD Emergency Provider Active Start: March 02, 2025 Dr. Eder Lujan DO Admit Provider Active Start: March 02, 2025 Dr. Eder Lujan DO Attending Provider Active Start: March 02, 2025 Team Status: Inactive Member Role/Relationship Status Dates Dr. Mathieu Roland DO Primary Care Provider Active Start: March 02, 2025 End: March 04, 2025 Dr. Justyn Rojas MD Emergency Provider Active Start: March 02, 2025 End: March 04, 2025 Dr. Eder Lujan DO Admit Provider Active Start: March 02, 2025 End: March 04, 2025 Dr. Eder Lujan DO Other Provider Active Start: March 02, 2025 End: March 04, 2025 Dr. Brittany Yarbrough DO Attending Provider Active S tart: March 02, 2025 End: March 04, 2025 Team Status: Active Member Role/Relationship Status Dates Dr. Mathieu Roland DO Primary Care Provider Active Start: March 03, 2025 Dr. Justyn Rojas MD Emergency Provider Active Start: March 03, 2025 Dr. Eder Lujan DO Admit Provider Active Start: March 03, 2025 Dr. Eder Lujan DO Other Provider Active Start: March 03, 2025 Dr. Brittany Yarbrough DO Attending Provider Active S tart: March 03, 2025 Dr. Brittany Yarbrough DO Other Provider Active Start : March 03, 2025 Team Status: Active Member Role/Relationship Status Dates Dr. Mathieu Roland DO Primary Care Provider Active Start: March 04, 2025 Dr. Justyn Rojas MD Emergency Provider Active Start: March 04, 2025 Dr. Eder Lujan DO Admit Provider Active Start: March 04, 2025 Dr. Eder Lujan DO Other Provider Active Start: March 04, 2025 Dr. Brittany Yarbrough DO Attending Provider Active S tart: March 04, 2025 Dr. Brittany Yarbrough DO Other Provider Active Start : March 04, 2025 Care Team (unrecognized sect ion and content) Care Team Personnel Name: MATHIEU ROLAND DO Position: P4 Physician - Primary Care Med Service: Active Provider Member Role: Primary Care Physician Address: Address: [address] [place] [address] Name: MARQUISE LEHMAN MD Position: P4 Physician - Endocrinology Med Service: Active Provider Member Role: Director Of Maintenance Address: Address: [address] [place] [address], [address] Name: CURT JORDAN DPM Position: Physician Med Service: Admitting Member Role: Commercial Loan Specialist Address: Address: [address] [place] [address], [address] [facility] [address] Care Team Related Persons Name: ALBERTO GREGORY Care Team Personnel Name: MATHIEU ROLAND DO Position: P4 Physician - Primary Care Member Role: Primary Care Physician Address: Address: [address] [place] [address] Name: MARQUISE LEHMAN MD Position: P4 Physician - Endocrinology Address: Address: [address] [place] [address], [address] Name: CURT JORDANM Position: Physician Address: Address: [address] [place] [address], [address] [place] [address] [facility] [address] Care Team Related Persons Name: ALBERTO GREGORY Care Team Personnel Name: MATHIEU ROLAND DO Position: P4 Physician - Primary Care Med Service: Active Provider Member Role: Primary Care Physician Address: Address: [address] [place] [address] Name: MARQUISE LEHMAN MD Position: P4 Physician - Endocrinology Med Service: Active Provider Member Role: Director Of Maintenance Address: Address: [address] [place] [address], [address] Name: CURT JORDANM Position: Physician Med Service: Admitting Member Role: Commercial Loan Specialist Address: Address: [address] [place] [address], [address] [facility] [address] Care Team Related Persons Name: ALBERTO GREGORY Care Team Personnel Name: MATHIEU ROLAND DO Position: P4 Physician - Primary Care Member Role: Primary Care Physician Address: Address: [address] [place] [address] Name: MARQUISE LEHMAN MD Position: P4 Physician - Endocrinology Member Role: Director Of Maintenance Address: Address: [address] [place] [address], [address] Name: CURT JORDAN DPM Position: Physician Member Role: Commercial Loan Specialist Address: Address: [address] [place] [address], [address] [facility] [address] Care Team Related Persons Name: ALBERTO GREGORY INFORMATION SOURCE (unrecogn ized section and content) DATE CREATED AUTHOR 03/16/2024 [facility] DATE CREATED AUTHOR AUTHOR'S ORGANIZ ATION 09/19/2024 [facility] DATE CREATED AUTHOR AUTHOR'S ORGANIZ ATION 03/09/2025 [facility] DATE CREATED AUTHOR AUTHOR'S ORGANIZ ATION 06/15/2025 [facility] FOR RECORDS PERTAINING TO PATIENTS WHO [...] BE BASED ON THE PRIMARY CLINICAL RECORDS. [facility]. provides no warranty or guarantee of the accuracy or completeness of information in this document.
[2025-06-16 13:40] LABS: Anion Gap 13 (5-15); BUN 17 mg/dL (4-19); BUN/Creat Ratio 15.0 RATIO (10-20); Calcium,Total 8.8 mg/dL (7.6-11.0); Carbon Dioxide 28.9 mmol/L (21.0-32.0); Chloride 82 mmol/L (98-108); Estimated Creatinine Clearance 40.58 ml/min (50-250); Glucose 157 mg/dL (70-99); Magnesium 1.9 mg/dL (1.5-2.2); Potassium 2.8 mmol/L (3.3-5.1)
--- NOTE | 2025-06-16 13:45 | EKG12_ITS ---
Test Reason : ABN LABS Blood Pressure : */* mmHG Vent. Rate : 76 BPM Atrial Rate : * BPM P-R Int : * ms QRS Dur : 76 ms QT Int : 344 ms P-R-T Axes : * -9 223 degrees QTcB Int : 387 ms Atrial fibrillation Minimal voltage criteria for LVH, may be normal variant ( R in aVL ) Nonspecific ST and T wave abnormality Abnormal ECG Confirmed by MANDY KEY, CATARINO ([id number]), slot editor TY ENCINAS ([id number]) on 06/19/2025 6:59:17 AM Referred By: Confirmed By: CATARINO GALVAN MD
[2025-06-16] MEDS: Potassium Chloride 10mEq/100mL 10 MEQ/100 ML IV.SOLN. 100 MEQ IV BOLUS ×2 (14:07→15:15)
[2025-06-16] MEDS: 0.9% Normal Saline (500mL Bag) 500 ML 999 ML IV ×2 (14:07→16:34)
--- NOTE | 2025-06-16 14:09 | EX.ED.DYSGE1 ---
HPI History of Present Illness Chief Complaint: Abn Labs Informant: patient and family Narrative Narrative: 74-year-old female presenting to the emergency room after being referred here by her primary care doctor for low potassium. Patient states that she actually feels really good today being able to walk around her home without her wheelchair. She states that she recently had her potassium increased and had blood drawn which was resulted today that showed a critically low potassium and she was sent to ED. She denies any palpitations chest pain muscle spasms paresthesias. She does take Lasix 40 mg a day. [facility] Medical History Overweight (BMI 25.0-29.9) Osteomyelitis Type 2 diabetes mellitus with diabetic polyneuropathy Neuropathy Diabetes Hypothyroidism 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 Diabetic foot ulcer associated with type 2 diabetes mellitus Type 2 diabetes mellitus Home Medications ?Medication ?Instructions ?Recorded ?Last Taken ?Type alprazolam 0.5 mg tablet 0.5 mg PO TID PRN PRN Anxiety 07/16/20 03/02/25 History clopidogrel 75 mg tablet 75 mg PO DAILY anti platelet 07/16/20 03/01/25 History ergocalciferol (vitamin D2) 1,250 1.25 unit PO QWEEK PRN supplement 07/16/20 02/27/25 History mcg (50,000 unit) capsule furosemide 40 mg tablet 40 mg PO DAILY fluid 07/16/20 03/01/25 History gabapentin 600 mg tablet 600 mg PO BIDCM neuropathy 07/16/20 03/01/25 History hydrocodone-acetaminophen 5-325mg 1 ea PO BID PRN PRN Not Specified 07/16/20 03/01/25 History 5mg-325mg levothyroxine 50 mcg tablet 50 mcg PO DAILY thyroid 07/16/20 03/01/25 History potassium chloride 20 mEq 20 meq PO DAILYCM #30 tabs 07/19/20 03/01/25 Rx tablet,extended release(part/cryst) metoclopramide HCl 10 mg tablet 10 mg PO Q6H PRN nausea and 09/16/22 Unknown Rx (Reglan) vomiting #14 tabs amlodipine 5 mg tablet 5 mg PO DAILY #30 tabs 08/22/23 03/01/25 Rx ramipril 10 mg capsule 20 mg PO DAILY BP 03/02/25 03/01/25 History rosuvastatin 10 mg tablet 10 mg PO DAILY cholesterol 03/02/25 03/01/25 History apixaban 5 mg tablet (Eliquis) 2.5 mg (1/2 x 5 mg) PO BID #0 tabs 03/04/25 Unknown Rx cephalexin 500 mg capsule 500 mg PO BID #2 caps 03/04/25 Unknown Rx Allergy/AdvReac Type Severity Reaction Status Date / Time hydrochlorothiazide AdvReac Hyponatremi Verified 06/16/25 11:40 a Surgical History History of appendectomy History of cholecystectomy Social History Smoking Status: Never smoker ROS ROS ED Constitutional Constitutional ED: Denies chills or weight loss Eyes Eyes: Denies change in vision or diplopia ENT ENT ED: Denies ear pain, rhinorrhea or sore throat Cardiovascular Cardiovascular: Denies chest pain, orthopnea, palpitations or racing heartbeat Respiratory/Chest Respiratory/Chest: Denies cough, dyspnea or orthopnea Gastrointestinal Gastrointestinal: Denies abdominal pain, diarrhea, nausea or vomiting Genitourinary Genitourinary ED: Denies dysuria, hematuria or urinary frequency Musculoskeletal Musculoskeletal: Denies arthralgias or myalgias Integumentary Denies abscess or rash Neurologic Neurologic: Denies headache(s) or weakness Psychiatric Psychiatric: Denies anxiety, depression, suicidal ideation or suicidal thoughts Endocrine Endocrinology: Denies polydipsia, polyphagia or polyuria Allergic/Immunologic Allergic/Immunologic ED: Denies mouth swelling, tongue swelling or urticaria EXAM Physical Exam Const Vital Signs: 06/16/25 11:40 06/16/25 12:42 06/16/25 13:00 Temperature 98 F Temperature Source Temporal Pulse Rate 72 Respiratory Rate 16 18 18 Blood Pressure 138/69 H 140/59 H 140/67 H Blood Pressure Mean 92 86 91 Pulse Ox 100 98 98 Oxygen Delivery Method Room Air Room Air Room Air Oxygen Flow Rate (L/min) 06/16/25 14:00 06/16/25 15:00 Temperature Temperature Source Pulse Rate 70 81 Respiratory Rate 15 18 Blood Pressure 146/68 H Blood Pressure Mean 94 Pulse Ox 100 100 Oxygen Delivery Method Nasal Cannula Room Air Oxygen Flow Rate (L/min) 2 Positive well nourished and well developed General Appearance ED: well developed HEENT Reports normocephalic, head/scalp atraumatic and moist mucous membranes Eyes PERRL and EOMs intact bilaterally Neck no lymphadenopathy, supple and no JVD Resp normal respiratory effort and clear to auscultation bilaterally Cardio regular rate, regular rhythm and no murmurs GI normal to inspection, nondistended, normoactive bowel sounds and non-tender Palpation: soft Back/Spine no CVA tenderness and normal ROM Extremity normal to inspection General Extremety ED: Negative for edema General Extremity: Negative for edema Neuro oriented x3 and CN's II-XII intact bilaterally Sensorium / Orientation: alert Motor Exam: strength 5/5 throughout Psych mental status grossly normal Mood & Affect: Negative for depressed or tearful Skin no rashes or lesions noted and no wounds MDM MDM MDM Narrative Medical decision making narrative: Differential diagnosis includes hypokalemia hyponatremia hypomagnesemia dehydration EKG shows atrial fibrillation at a rate of 76. This is a known a. Sodium of 123 potassium 2.8 chloride also low at 82 magnesium 1.9 creatinine 1.15 BUN is 17. Patient received 20 mEq IV of potassium chloride as well as a 1 L saline bolus. I spoke with our hospitalist. As she is otherwise feeling well today and is hemodynamically stable her plan going forward is to have her hold her furosemide continue the potassium supplementation over the weekend and be judicious with fluids. She is to follow-up with primary care obtain a repeat BMP at the first part of next week. Patient and her son are comfortable with this plan. History & Record Review Discussion w/independent historian: Patient and Family Additional record(s) reviewed:: Prior inpatient record, Prior ED visit and Prior labs Lab Data Attestation: I reviewed the patient's lab results. Labs: Laboratory Results - last 24 hr 06/16/25 12:29 Sodium 123 L Potassium 2.8 L Chloride 82 L Carbon Dioxide 28.9 Anion Gap 13 BUN 17 Creatinine 1.15 Estim Creat Clear Calc 40.58 L Est GFR (MDRD) Non-Af 49 L BUN/Creatinine Ratio 15.0 Glucose 157 H Calcium 8.8 Magnesium 1.9 Discharge Plan Triage Chief Complaint: Abn Labs ED Provider: Edin Sahu Dx/Rx/DC Orders Clinical Impression: Acute hypokalemia, Acute hyponatremia Instructions: ED Hyponatremia, ED Hypokalemia Prescriptions: No Action furosemide 40 MG tablet 40 mg PO DAILY gabapentin 600 MG tablet 600 mg PO BIDCM hydrocodone-acetaminophen 1 EACH tablet 1 ea PO BID PRN PRN (Reason: Not Specified) clopidogrel 75 MG tablet 75 mg PO DAILY levothyroxine 50 MCG tablet 50 mcg PO DAILY alprazolam 0.5 MG tablet 0.5 mg PO TID PRN PRN (Reason: Anxiety) ergocalciferol (vitamin D2) 50,000 UNIT capsule 1.25 unit PO QWEEK PRN (Reason: supplement) Rx Instructions: takes Fridays potassium chloride 20 MEQ tablet 20 meq PO DAILYCM Qty: 30 0RF Rx Instructions: Take with furosemide/Lasix metoclopramide HCl [Reglan] 10 mg tablet 10 mg PO Q6H PRN (Reason: nausea and vomiting) Qty: 14 0RF amlodipine 5 mg tablet 5 mg PO DAILY Qty: 30 0RF rosuvastatin 10 mg tablet 10 mg PO DAILY ramipril 10 mg capsule 20 mg PO DAILY Eliquis 5 mg Tablet 2.5 mg PO BID Qty: 0 0RF cephalexin 500 mg capsule 500 mg PO BID Qty: 2 0RF Primary Care Provider: Marion Roland Referrals: Marion Roland DO [Primary Care Provider, Medical] Referral Note: repeat BMP on thursday Activity Restrictions/Additional Instructions: Discontinue the Lasix (furosemide) Continue your potassium supplementation. Please contact your doctor on Thursday to obtain repeat BMP and further follow-up. Print Language: Cymraes Disposition Disposition: Home, Self Care
[2025-06-16 15:45] LABS: Mucous, Urine 0 SEEN /hpf (<or=2+)
[2025-06-16 16:15] LABS: Color, Urine Straw (Yellow); Glucose, Dipstick Normal (Normal); Ketone-Dipstick Negative (Negative); Leukocyte Esterase-Dipstick 100 /ul (Negative); Nitrite-Dipstick Negative (Negative); Occult Blood-Urine Negative /ul (Negative); Protein-Dipstick Negative (Negative); Specific Gravity, Urine 1.010 (1.002-1.030); Urine Bilirubin Dipstick Negative (Negative)
[2025-06-16 18:08] LABS: Red Blood Cells-Urine 0-5 SEEN /hpf (0-5); Squamous Epithelial Cells - UA 0-5 SEEN /hpf (5-10)
== END 2025-06-16 17:17 | disposition home or self-care (01) ==
PROVIDERS: Emergency Provider Emergency Medicine; PCP Family Medicine; Visit Provider Emergency Medicine
DX: E87.6 Hypokalemia (principal); E11.42 Type 2 diabetes mellitus with diabetic polyneuropathy; E87.1 Hypo-osmolality and hyponatremia
CPT/HCPCS: 80048; 81001; 83735; 93005; 96365; 96366; 99284